=== PATIENT | female | born 1950 | race Caucasian/White ===

== ENCOUNTER 2023-01-01 10:40 | Outpatient (OUT) | payer MEDICARE, OTHER, SELFPAY ==
[2023-01-01 11:14] LABS: Basophils Percent Auto 0.4 % (0.2-2.0); Eosinophils Absolute Auto 0.1 10^3/uL (0.0-0.7); Eosinophils Percent Auto 1.5 % (0.9-7.0); Hematocrit 41.1 % (36.0-48.0); Hemoglobin 13.9 g/dL (12.0-16.0); Immature Granulocytes Abs Auto 0.01 10^3/uL (0.00-0.03); Immature Granulocytes Pct Auto 0.1 % (0.0-0.5); Lymphocytes Absolute Auto 2.6 10^3/uL (1.2-3.8); Lymphocytes Percent Auto 35.7 % (20.5-60.0); Mean Corpuscular HGB Conc 33.8 g/dL (29.9-35.2); Mean Corpuscular Volume 94.7 fL (81.0-99.0); Mean Platelet Volume 9.7 fL (9.5-13.5); Monocytes Absolute Auto 0.3 10^3/uL (0.3-0.8); Monocytes Percent Auto 3.7 % (1.7-12.0); Neutrophils Absolute Auto 4.3 10^3/uL (1.4-6.5); Neutrophils Percent Auto 58.6 % (43.0-75.0); Platelet Count 178 10^3/uL (150-450); Red Blood Count 4.34 10^6/uL (4.20-5.40); Red Cell Distribution Width 12.2 % (11.0-15.0); White Blood Count 7.3 10^3/uL (4.0-11.0)
[2023-01-01 12:05] LABS: Estimated Average Glucose 157 mg/dL; Glycohemoglobin A1C 7.1 % (4.5-6.2)
[2023-01-01 12:39] LABS: Alanine Aminotransferase 43 U/L (14-59); Albumin Level 4.1 g/dL (3.4-5.0); Alkaline Phosphatase 107 U/L (46-116); Aspartate Amino Transferase 23 U/L (15-37); BUN Creatinine Ratio 17.2; Bilirubin Total 0.6 mg/dL (0.2-1.0); Calcium 9.5 mg/dL (8.5-10.1); Carbon Dioxide 28.7 mmol/L (21.0-32.0); Chloride 103 mmol/L (98-107); Cholesterol 174 mg/dL (<=200); Estimated GFR (African America >60 (>=60); Estimated GFR (Non-African Ame 55 (>=60); Globulin 4.2 g/dL; Glucose 181 mg/dL (74-106); HDL Cholesterol 44 mg/dL (40-60); Potassium 4.7 mmol/L (3.5-5.1); Sodium 141 mmol/L (136-145); Total Protein 8.3 g/dL (6.4-8.2); Triglycerides 146 mg/dL (<=150); VLDL CHOLESTEROL 29.2 mg/dL
[2023-01-01 12:40] LABS: LDL Cholesterol Calculated 100.8 mg/dL; Thyroid Stimulating Hormone 1.049 uIU/mL (0.358-3.740)
[2023-01-01 17:54] LABS: Microalbumin Urine Random <1.3 mg/dL (<=30.0)
== END 2023-01-01 10:41 | disposition home or self-care (01) ==
LOC: LAB 10:49
PROVIDERS: PCP Family Medicine; Visit Provider Family Medicine
DX: E03.9 Hypothyroidism, unspecified (principal); R74.8 Abnormal levels of other serum enzymes; E11.65 Type 2 diabetes mellitus with hyperglycemia
CPT/HCPCS: 36415; 80053; 80061; 82043; 83036; 84439; 84443; 85025

== ENCOUNTER 2023-01-17 05:23 | Emergency (ER) | payer MEDICARE, OTHER, SELFPAY ==
[2023-01-17] VITALS (17 sets, daily range): BP systolic 114–136; BP diastolic 55–78; PULSE 101–120; RESP 13–29; TEMP 38.2–39.1; O2SAT 94–97; BMI 29.5
--- NOTE | 2023-01-17 05:49 | PC.NURSE ---
Patient to ED with flu/covid symptoms including fever, cough, body aches, throbbing in ears with headache, pain with coughing. She took antipyretic prior to coming into ED, temp was still 102 in triage. She states this all just started this morning and that her sister is sick with the same thing right now but has not been diagnosed with anything.
--- NOTE | 2023-01-17 06:00 | XR_ITS ---
The [address] [address] Patient Name: EDWARD GEE MRN: [id number] date: 1950 Sex: F Assigned Patient Location: ER Current Patient Location: ER Accession/Order Number: [id number] Exam Date: 01/17/2023 06:50 Report Date: 01/17/2023 07:14 At the request of: HARRY MARKER Procedure: XR chest 2V EXAMINATION: XR chest 2V HISTORY: fever, cough COMPARISON: No relevant comparison available. FINDINGS: LUNGS: No significant pulmonary parenchymal abnormalities. VASCULATURE: No increased pulmonary vasculature. PLEURA: No pneumothorax, effusion, or pleural thickening. CARDIAC: No cardiomegaly or cardiac silhouette abnormality. MEDIASTINUM: No visible mass or adenopathy. BONES: No fracture or visible bone lesion. OTHER: Negative. XR/XR chest 2V IMPRESSION: 1. No acute cardiopulmonary process. Electronically authenticated by: JAZMINE DODSON Date: 01/17/2023 07:14
--- NOTE | 2023-01-17 06:00 | ED.GENADUL1 ---
Documented by User: Sosa Jones MD 01/17/23 06:08 HPI - General Adult General Chief complaint: Upper Respiratory Infection Stated complaint: FEVER, CHILLS Time Seen by Provider: 01/17/23 05:28 Source: patient Mode of arrival: walk-in Limitations: no limitations History of Present Illness HPI narrative: This 72-year-old female presents for evaluation of fevers, chills, body aches and cough. The patient states that she woke up this morning with a fever. She took 2 aspirin. She states that she has fibromyalgia and when she gets a fever at worse since her fibromyalgia. She also states that she has been incontinent of urine. She states that when she gets a fever she cannot hold her urine. This is not unusual for her. She denies any abdominal pain. She has no headache or neck pain. She states that she did not get more than one COVID 19 vaccination because it made her sick. Also states that her sister has the same thing and came down with it 2 days ago. She last saw her sister 2 days ago when she was sick. She is not having any nausea or vomiting. She has no neck pain or stiffness. She has no skin rash. She states that he has been septic several times in the past from an unknown source. Related Data Home Medications Medication Instructions Recorded Confirmed benazepril 20 mg tablet 20 mg PO DAILY 01/17/23 01/17/23 citalopram 40 mg tablet (Celexa) 40 mg PO DAILY 01/17/23 01/17/23 levothyroxine 50 mcg tablet 50 mcg PO DAILY 01/17/23 01/17/23 (Euthyrox) tizanidine 4 mg tablet 4 mg PO DAILY 01/17/23 01/17/23 trazodone 50 mg tablet 50 mg PO DAILY 01/17/23 01/17/23 Previous Rx's Medication Instructions Recorded nirmatrelvir 300 mg (150 mg See Rx Instructions PO .COMPLEX 01/17/23 x2)-ritonavir 100 mg tablet,dose #30 ea pack (Paxlovid) Allergies Allergy/AdvReac Type Severity Reaction Status Date / Time adhesive tape Allergy Unknown Verified 01/17/23 05:32 Sulfa (Sulfonamide Allergy Unknown Verified 01/17/23 05:32 Antibiotics) Review of Systems ROS Status of ROS 10 or more systems reviewed and unremarkable except as noted in history and below PFSH PFSH Social History Smoking status: Never smoker Exam Narrative Exam Narrative: Nurses note and vital signs reviewed; Patient is febrile with a temperature of 102.4 tachycardic with a pulse of 120, blood presure is normal at 126/78, she is not hypoxic a pulse ox of 97 percent on room air General: Nontoxic elderly female lying currently on the stretcher, no respiratory distress, she moves easily about the stretcher Skin: Warm, dry, no pallor noted. There is no rash noted. Head: Normocephalic, atraumatic Eye: Normal conjunctiva, no drainage, EOMI. PERRL Cardiovascular: Regular Rate and Rhythm Tachycardic with a pulse of 120 upon arrival Respiratory: Are clear with good air entry, there is no wheezing rhonchi or rales appreciated, there is no accessory muscle use, she is speaking in complete sentences, she does have a forced dry cough Back: non-tender, no CVA tenderness bilaterally to percussion. GI: Normal bowel sounds, no tenderness to palpation, no masses appreciated. No rebound, guarding, or rigidity noted. Musculoskeletal: The patient has no evidence of calf tenderness, no pitting edema, symmetrical pulses noted bilaterally Neurological: A&O x4, normal speech Psychiatric: Cooperative Constitutional Vital Signs, click to edit/add: Last Vital Signs Temp 100.8 F H 01/17/23 07:41 Pulse 105 H 01/17/23 07:40 Resp 20 01/17/23 07:40 BP 118/62 01/17/23 07:30 Pulse Ox 95 01/17/23 06:20 O2 Del Method Room Air 01/17/23 05:28 Course Vital Signs Vital signs: Vital Signs Temperature 102.4 F H 01/17/23 05:28 Pulse Rate 120 H 01/17/23 05:28 Respiratory Rate 18 01/17/23 05:28 Blood Pressure 126/78 01/17/23 05:28 Pulse Oximetry 97 01/17/23 05:28 Oxygen Delivery Method Room Air 01/17/23 05:28 Temperature 100.8 F H 01/17/23 07:41 Pulse Rate 105 H 01/17/23 07:40 Respiratory Rate 20 01/17/23 07:40 Blood Pressure 118/62 01/17/23 07:30 Pulse Oximetry 95 01/17/23 06:20 Oxygen Delivery Method Room Air 01/17/23 05:28 Medical Decision Making Lab Data Labs: Lab Results 01/17/23 01/17/23 Range/Units 05:48 06:20 WBC 6.0 (4.0-11.0) 10^3/uL RBC 4.22 (4.20-5.40) 10^6/uL Hgb 13.6 (12.0-16.0) g/dL Hct 39.6 (36.0-48.0) % MCV 93.8 (81.0-99.0) fL MCH 32.2 (26.7-34.0) pg MCHC 34.3 (29.9-35.2) g/dL RDW 12.2 (11.0-15.0) % Plt Count 143 L (150-450) 10^3/uL MPV 10.2 (9.5-13.5) fL Neut % (Auto) 66.6 (43.0-75.0) % Lymph % (Auto) 22.9 (20.5-60.0) % [place] % (Auto) 9.1 (1.7-12.0) % Eos % (Auto) 0.7 L (0.9-7.0) % Baso % (Auto) 0.5 (0.2-2.0) % Neut # (Auto) 4.0 (1.4-6.5) 10^3/uL Lymph # (Auto) 1.4 (1.2-3.8) 10^3/uL [place] # (Auto) 0.5 (0.3-0.8) 10^3/uL Eos # (Auto) 0.0 (0.0-0.7) 10^3/uL Baso # (Auto) 0.0 (0.0-0.1) 10^3/uL Abs Immat Gran (auto) 0.01 (0.00-0.03) 10^3/uL Imm/Tot Granulo (auto) 0.2 (0.0-0.5) % Sodium 134 L (136-145) mmol/L Potassium 4.0 (3.5-5.1) mmol/L Chloride 99 (98-107) mmol/L Carbon Dioxide 24.5 (21.0-32.0) mmol/L Anion Gap 14.5 BUN 12.0 (7.0-18.0) mg/dL Creatinine 0.99 (0.55-1.02) mg/dL Est GFR ( Amer) >60 (>=60) Est GFR (Non-Af Amer) 55 L (>=60) BUN/Creatinine Ratio 12.1 Glucose 185 H (74-106) mg/dL Lactate 1.7 (0.4-2.0) mmol/L Calcium 8.9 (8.5-10.1) mg/dL Total Bilirubin 0.7 (0.2-1.0) mg/dL AST 36 (15-37) U/L ALT 60 H (14-59) U/L Alkaline Phosphatase 101 (46-116) U/L Total Protein 8.6 H (6.4-8.2) g/dL Albumin 4.2 (3.4-5.0) g/dL Globulin 4.4 g/dL Albumin/Globulin Ratio 1.0 Adenovirus (PCR) Not detected (NOT DETECTE) C. pneumoniae DNA (PCR) Not detected (NOT DETECTE) Coronavirus Type OC43 Not detected (NOT DETECTE) Coronavirus Type HKU1 Not detected (NOT DETECTE) Coronavirus Type 229E Not detected (NOT DETECTE) Coronavirus Type NL63 Not detected (NOT DETECTE) Human Metapneumovir PCR Not detected (NOT DETECTE) M. pneumoniae (PCR) Not detected (NOT DETECTE) Parainfluenza PCR Not detected (NOT DETECTE) Parainfluenza 2 (PCR) Not detected (NOT DETECTE) Parainfluenza 3 (PCR) Not detected (NOT DETECTE) Parainfluenza 4 (PCR) Not detected (NOT DETECTE) RSV (RT-PCR) Not detected (NOT DETECTE) Entero/Rhino (PCR) Not detected (NOT DETECTE) SARS-CoV-2 (PCR) Detected A (NOT DETECTE) Bordetella pertussis (PCR) Not detected (NOT DETECTE) B parapertussis DNA PCR Not detected (NOT DETECTE) Influenza Type A (PCR) Not detected (NOT DETECTE) Influenza Type B (PCR) Not detected (NOT DETECTE) ECG Data Attestation: I personally reviewed and interpreted this ECG as follows: (Sinus tachycardia at 114 beats for minute, low voltage, indeterminate axis, no acute ST segment elevation or T-wave inversion) Discharge Plan Discharge Chief Complaint: Upper Respiratory Infection Clinical Impression: COVID-19 Patient Disposition: Home, Self-Care Time of Disposition Decision: 07:47 Condition: Good Mode of Transportation: Private Vehicle Prescriptions / Home Meds: New Paxlovid 300 mg (150 mg x 2)-100 mg tablets,dose pack See Rx Instructions .ROUTE .COMPLEX Qty: 30 0RF Rx Instructions: take TWO 150 mg tablets of nirmatrelvir with ONE 100 mg tablet of ritonavir twice daily for 5 days No Action trazodone 50 mg tablet 50 mg PO DAILY benazepril 20 mg tablet 20 mg PO DAILY citalopram [Celexa] 40 mg tablet 40 mg PO DAILY tizanidine 4 mg tablet 4 mg PO DAILY levothyroxine [Euthyrox] 50 mcg tablet 50 mcg PO DAILY Instructions: Droplet Precautions (ED), COVID-19 (Coronavirus Disease 2019) (ED), COVID-19: Slow the Coronavirus Spread (ED), Face Coverings (Masks) and COVID-19 (ED), How to Recover from COVID-19 at Home (ED), Social Distancing Guidelines for COVID-19 (ED) Stand Alone Forms: Portal Instructions Referrals: Flor Mosqueda MD [Primary Care Provider] - 1 week Documented by User: Bassam Kumar MD 01/17/23 07:53 HPI - General Adult General Chief complaint: Upper Respiratory Infection Stated complaint: FEVER, CHILLS Time Seen by Provider: 01/17/23 05:28 Related Data Home Medications Medication Instructions Recorded Confirmed benazepril 20 mg tablet 20 mg PO DAILY 01/17/23 01/17/23 citalopram 40 mg tablet (Celexa) 40 mg PO DAILY 01/17/23 01/17/23 levothyroxine 50 mcg tablet 50 mcg PO DAILY 01/17/23 01/17/23 (Euthyrox) tizanidine 4 mg tablet 4 mg PO DAILY 01/17/23 01/17/23 trazodone 50 mg tablet 50 mg PO DAILY 01/17/23 01/17/23 Previous Rx's Medication Instructions Recorded nirmatrelvir 300 mg (150 mg See Rx Instructions PO .COMPLEX 01/17/23 x2)-ritonavir 100 mg tablet,dose #30 ea pack (Paxlovid) Allergies Allergy/AdvReac Type Severity Reaction Status Date / Time adhesive tape Allergy Unknown Verified 01/17/23 05:32 Sulfa (Sulfonamide Allergy Unknown Verified 01/17/23 05:32 Antibiotics) PFSH PFS Social History Smoking status: Never smoker Exam Constitutional Vital Signs, click to edit/add: Last Vital Signs Temp 100.8 F H 01/17/23 07:41 Pulse 105 H 01/17/23 07:40 Resp 20 01/17/23 07:40 BP 118/62 01/17/23 07:30 Pulse Ox 95 01/17/23 06:20 O2 Del Method Room Air 01/17/23 05:28 Course Vital Signs Vital signs: Vital Signs Temperature 102.4 F H 01/17/23 05:28 Pulse Rate 120 H 01/17/23 05:28 Respiratory Rate 18 01/17/23 05:28 Blood Pressure 126/78 01/17/23 05:28 Pulse Oximetry 97 01/17/23 05:28 Oxygen Delivery Method Room Air 01/17/23 05:28 Temperature 100.8 F H 01/17/23 07:41 Pulse Rate 105 H 01/17/23 07:40 Respiratory Rate 20 01/17/23 07:40 Blood Pressure 118/62 01/17/23 07:30 Pulse Oximetry 95 01/17/23 06:20 Oxygen Delivery Method Room Air 01/17/23 05:28 Medical Decision Making MDM Narrative Medical decision making narrative: JK 7:50am The patient was initially seen by Dr. Jones and signed out to me after discussing the case with her thoroughly. Chest x-ray shows no infiltrate and testing shows presence of Covid. She is provided a prescription for Paxlovid and is able to be discharged home. Treatment diagnosis and follow-up were discussed with the patient and her family. Differential Diagnosis Differential Diagnosis: viral illness, Covid, pneumonia Lab Data Lab results reviewed: Yes I reviewed the patient's lab results Labs: Lab Results 01/17/23 01/17/23 Range/Units 05:48 06:20 WBC 6.0 (4.0-11.0) 10^3/uL RBC 4.22 (4.20-5.40) 10^6/uL Hgb 13.6 (12.0-16.0) g/dL Hct 39.6 (36.0-48.0) % MCV 93.8 (81.0-99.0) fL MCH 32.2 (26.7-34.0) pg MCHC 34.3 (29.9-35.2) g/dL RDW 12.2 (11.0-15.0) % Plt Count 143 L (150-450) 10^3/uL MPV 10.2 (9.5-13.5) fL Neut % (Auto) 66.6 (43.0-75.0) % Lymph % (Auto) 22.9 (20.5-60.0) % [place] % (Auto) 9.1 (1.7-12.0) % Eos % (Auto) 0.7 L (0.9-7.0) % Baso % (Auto) 0.5 (0.2-2.0) % Neut # (Auto) 4.0 (1.4-6.5) 10^3/uL Lymph # (Auto) 1.4 (1.2-3.8) 10^3/uL [place] # (Auto) 0.5 (0.3-0.8) 10^3/uL Eos # (Auto) 0.0 (0.0-0.7) 10^3/uL Baso # (Auto) 0.0 (0.0-0.1) 10^3/uL Abs Immat Gran (auto) 0.01 (0.00-0.03) 10^3/uL Imm/Tot Granulo (auto) 0.2 (0.0-0.5) % Sodium 134 L (136-145) mmol/L Potassium 4.0 (3.5-5.1) mmol/L Chloride 99 (98-107) mmol/L Carbon Dioxide 24.5 (21.0-32.0) mmol/L Anion Gap 14.5 BUN 12.0 (7.0-18.0) mg/dL Creatinine 0.99 (0.55-1.02) mg/dL Est GFR ( Amer) >60 (>=60) Est GFR (Non-Af Amer) 55 L (>=60) BUN/Creatinine Ratio 12.1 Glucose 185 H (74-106) mg/dL Lactate 1.7 (0.4-2.0) mmol/L Calcium 8.9 (8.5-10.1) mg/dL Total Bilirubin 0.7 (0.2-1.0) mg/dL AST 36 (15-37) U/L ALT 60 H (14-59) U/L Alkaline Phosphatase 101 (46-116) U/L Total Protein 8.6 H (6.4-8.2) g/dL Albumin 4.2 (3.4-5.0) g/dL Globulin 4.4 g/dL Albumin/Globulin Ratio 1.0 Adenovirus (PCR) Not detected (NOT DETECTE) C. pneumoniae DNA (PCR) Not detected (NOT DETECTE) Coronavirus Type OC43 Not detected (NOT DETECTE) Coronavirus Type HKU1 Not detected (NOT DETECTE) Coronavirus Type 229E Not detected (NOT DETECTE) Coronavirus Type NL63 Not detected (NOT DETECTE) Human Metapneumovir PCR Not detected (NOT DETECTE) M. pneumoniae (PCR) Not detected (NOT DETECTE) Parainfluenza PCR Not detected (NOT DETECTE) Parainfluenza 2 (PCR) Not detected (NOT DETECTE) Parainfluenza 3 (PCR) Not detected (NOT DETECTE) Parainfluenza 4 (PCR) Not detected (NOT DETECTE) RSV (RT-PCR) Not detected (NOT DETECTE) Entero/Rhino (PCR) Not detected (NOT DETECTE) SARS-CoV-2 (PCR) Detected A (NOT DETECTE) Bordetella pertussis (PCR) Not detected (NOT DETECTE) B parapertussis DNA PCR Not detected (NOT DETECTE) Influenza Type A (PCR) Not detected (NOT DETECTE) Influenza Type B (PCR) Not detected (NOT DETECTE) Imaging Data Chest x-ray: Radiologist's impression: Procedure: XR chest 2V EXAMINATION: XR chest 2V HISTORY: fever, cough COMPARISON: No relevant comparison available. FINDINGS: LUNGS: No significant pulmonary parenchymal abnormalities. VASCULATURE: No increased pulmonary vasculature. PLEURA: No pneumothorax, effusion, or pleural thickening. CARDIAC: No cardiomegaly or cardiac silhouette abnormality. MEDIASTINUM: No visible mass or adenopathy. BONES: No fracture or visible bone lesion. OTHER: Negative. IMPRESSION: 1. No acute cardiopulmonary process. Electronically authenticated by: JAZMINE DODSON Date: 01/17/2023 07:14 Discharge Plan Discharge Chief Complaint: Upper Respiratory Infection Clinical Impression: COVID-19 Patient Disposition: Home, Self-Care Time of Disposition Decision: 07:47 Condition: Good Mode of Transportation: Private Vehicle Prescriptions / Home Meds: New Paxlovid 300 mg (150 mg x 2)-100 mg tablets,dose pack See Rx Instructions .ROUTE .COMPLEX Qty: 30 0RF Rx Instructions: take TWO 150 mg tablets of nirmatrelvir with ONE 100 mg tablet of ritonavir twice daily for 5 days No Action trazodone 50 mg tablet 50 mg PO DAILY benazepril 20 mg tablet 20 mg PO DAILY citalopram [Celexa] 40 mg tablet 40 mg PO DAILY tizanidine 4 mg tablet 4 mg PO DAILY levothyroxine [Euthyrox] 50 mcg tablet 50 mcg PO DAILY Instructions: Droplet Precautions (ED), COVID-19 (Coronavirus Disease 2019) (ED), COVID-19: Slow the Coronavirus Spread (ED), Face Coverings (Masks) and COVID-19 (ED), How to Recover from COVID-19 at Home (ED), Social Distancing Guidelines for COVID-19 (ED) Stand Alone Forms: Portal Instructions Referrals: Flor Mosqueda MD [Primary Care Provider] - 1 week
[2023-01-17 06:07] LABS: Basophils Percent Auto 0.5 % (0.2-2.0); Eosinophils Percent Auto 0.7 % (0.9-7.0); Hematocrit 39.6 % (36.0-48.0); Hemoglobin 13.6 g/dL (12.0-16.0); Immature Granulocytes Abs Auto 0.01 10^3/uL (0.00-0.03); Immature Granulocytes Pct Auto 0.2 % (0.0-0.5); Lymphocytes Absolute Auto 1.4 10^3/uL (1.2-3.8); Lymphocytes Percent Auto 22.9 % (20.5-60.0); Mean Corpuscular HGB Conc 34.3 g/dL (29.9-35.2); Mean Corpuscular Hemoglobin 32.2 pg (26.7-34.0); Mean Corpuscular Volume 93.8 fL (81.0-99.0); Mean Platelet Volume 10.2 fL (9.5-13.5); Monocytes Absolute Auto 0.5 10^3/uL (0.3-0.8); Monocytes Percent Auto 9.1 % (1.7-12.0); Neutrophils Percent Auto 66.6 % (43.0-75.0); Platelet Count 143 10^3/uL (150-450); Red Blood Count 4.22 10^6/uL (4.20-5.40); Red Cell Distribution Width 12.2 % (11.0-15.0)
[2023-01-17 06:20] LABS: Alanine Aminotransferase 60 U/L (14-59); Albumin Level 4.2 g/dL (3.4-5.0); Alkaline Phosphatase 101 U/L (46-116); Anion Gap 14.5; Aspartate Amino Transferase 36 U/L (15-37); BUN Creatinine Ratio 12.1; Bilirubin Total 0.7 mg/dL (0.2-1.0); Calcium 8.9 mg/dL (8.5-10.1); Carbon Dioxide 24.5 mmol/L (21.0-32.0); Chloride 99 mmol/L (98-107); Estimated GFR (African America >60 (>=60); Estimated GFR (Non-African Ame 55 (>=60); Globulin 4.4 g/dL; Glucose 185 mg/dL (74-106); Sodium 134 mmol/L (136-145); Total Protein 8.6 g/dL (6.4-8.2)
[2023-01-17] MEDS: 0.9 % SODIUM CHLORIDE 1,000 ML 1000 ML IV (06:21)
[2023-01-17] MEDS: ACETAMINOPHEN 325 MG TABLET 650 MG PO (06:21)
[2023-01-17 06:22] LABS: Lactate/Lactic Acid 1.7 mmol/L (0.4-2.0)
[2023-01-17 06:30] LABS: Adenovirus NOT DETECTED (NOT DETECTE); Bordetella parapertussis NOT DETECTED (NOT DETECTE); Coronavirus 229E NOT DETECTED (NOT DETECTE); Coronavirus HKU1 NOT DETECTED (NOT DETECTE); Coronavirus NL63 NOT DETECTED (NOT DETECTE); Coronavirus OC43 NOT DETECTED (NOT DETECTE); Human Metapneumovirus NOT DETECTED (NOT DETECTE); Human Rhinovirus/Enterovirus NOT DETECTED (NOT DETECTE); Influenza A NOT DETECTED (NOT DETECTE); Influenza B NOT DETECTED (NOT DETECTE); Mycoplasma pneumoniae NOT DETECTED (NOT DETECTE); Parainfluenza Virus 1 NOT DETECTED (NOT DETECTE); Parainfluenza Virus 2 NOT DETECTED (NOT DETECTE); Parainfluenza Virus 3 NOT DETECTED (NOT DETECTE); Parainfluenza Virus 4 NOT DETECTED (NOT DETECTE); Respiratory Syncytial Virus NOT DETECTED (NOT DETECTE)
[2023-01-17 07:19] LABS: SARS-CoV-2 DETECTED (NOT DETECTE)
[2023-01-17 08:13] LABS: Bilirubin Urine NEGATIVE (NEGATIVE); Blood Urine NEGATIVE (NEGATIVE); Clarity Urine CLEAR (CLEAR); Color Urine LT. YELLOW (YELLOW); Glucose Urine UA NEGATIVE (NEGATIVE); Ketones Urine NEGATIVE (NEGATIVE); Leukocyte Esterase Urine TRACE (NEGATIVE); Nitrite Urine NEGATIVE (NEGATIVE); Protein Urine NEGATIVE (NEG/TRACE); Specific Gravity Urine 1.015 (1.005-1.025); Urobilinogen Urine 0.2 EU/dL (0.2-1.0); pH Urine 5.5 (5.0-9.0)
[2023-01-17 08:35] LABS: Bacteria Urine NONE SEEN #/HPF (NONE SEEN); Mucus Urine NONE SEEN (NONE SEEN); RBC Urine NONE SEEN #/HPF (0-2); Squamous Epithelial Cell Urine RARE #/LPF (NONE/RARE); WBC Urine 0-2 #/HPF (NONE SEEN)
--- NOTE | 2023-01-17 17:40 | ECG_ITS ---
The [facility] Test Date: 2023-01-17 Pat Name: EDWARD GEE Department: Room: - Gender: Female [employer]: : 1950 Requested By: CARMEN CONLEY Order Number: [id number] Reading MD: CHRISTIAN WHITE Measurements Intervals [place] Rate: 114 P: 49 WV: 140 QRS: 259 QRSD: 82 T: -30 QT: 334 QTc: 402 Interpretive Statements 1120 Sinus tachycardia 2420 RSR (QR) in lead V1/V2, consistent with right ventricular conduction delay 7300 Indeterminate axis 7500 Abnormal QRS-T angle 8102 Low QRS voltage in chest leads 9140 abnormal rhythm ECG No previous ECG available for comparison Electronically Signed On 01-18-2023 6:45:20 EDT by CHRISTIAN WHITE
== END 2023-01-17 08:04 | disposition home or self-care (01) ==
PROVIDERS: Emergency Medicine; Emergency Provider Emergency Medicine; PCP Family Medicine
DX: U07.1 COVID-19 (principal); R50.9 Fever, unspecified; Z79.899 Other long term (current) drug therapy; Z79.890 Hormone replacement therapy
CPT/HCPCS: 0202U; 36415; 71046; 80053; 81001; 83605; 85025; 87040; 93005; 99284

== ENCOUNTER 2023-02-01 11:40 | Outpatient (OUT) | payer MEDICARE, OTHER, SELFPAY ==
--- NOTE | 2023-02-01 11:51 | XR_ITS ---
The [address] [address] Patient Name: EDWARD GEE MRN: [id number] date: 1950 Sex: F Assigned Patient Location: [facility] Current Patient Location: [facility] Accession/Order Number: [id number] Exam Date: 02/01/2023 11:53 Report Date: 02/01/2023 13:16 At the request of: CARMEN CONLEY Procedure: XR chest 2V EXAM: XR chest 2V HISTORY: Shortness Of Breath R06.02 COMPARISON: None. TECHNIQUE: PA and lateral views of the chest. FINDINGS: The cardiomediastinal silhouette is normal. No focal consolidation is identified. There is no pneumothorax. No pleural effusion is noted. The osseous structures are intact. XR/XR chest 2V IMPRESSION: No acute cardiopulmonary process. Electronically authenticated by: GINA TRUONG Date: 02/01/2023 13:16
== END 2023-02-01 11:41 | disposition home or self-care (01) ==
PROVIDERS: PCP Family Medicine; Visit Provider Family Medicine
DX: R06.02 Shortness of breath (principal); U09.9 Post COVID-19 condition, unspecified
CPT/HCPCS: 71046

== ENCOUNTER 2023-05-25 10:40 | Emergency (ER) | payer MEDICARE, OTHER, SELFPAY ==
[2023-05-25] VITALS (23 sets, daily range): BP systolic 116–169; BP diastolic 55–93; PULSE 76–128; RESP 14–33; TEMP 36.5; O2SAT 93–99; BMI 31.2
--- OUTSIDE RECORDS SUMMARY | 2023-05-25 10:51 | XMS_ITS | CCD ---
Author Name Unknown Address [address] [facility] [address] [place] [address] Organization [facility] Care Team Providers Care Farm Loan Representative Name Role Phone Carmen Conley MD Primary Care Provider Carmen Conley Attending Unavailable Yael, Carmen Riggins Primary Care Unavailable Yael, Carmen Riggins Admitting Unavailable Carmen Conley Unavailable YAEL, DR CARMEN Riggins Attending Unavailable CONLEY, DR CARMEN Riggins Admitting Unavailable CONLEY, DR CARMEN Riggins Primary Care Unavailable YAEL, DR CARMEN Riggins Consulting Unavailable CONLEY, DR CARMEN Riggins Attending Unavailable CONLEY, DR CARMEN Riggins Admitting Unavailable CONLEY, DR CARMEN Riggins Primary Care Unavailable CONLEY, DR CARMEN Riggins Consulting Unavailable CONLEY, DR CARMEN Riggins Attending Unavailable CONLEY, DR CARMEN Riggins Admitting Unavailable CONLEY, DR CARMEN Riggins Primary Care Unavailable CANBY, DR HAYLEY Martinez Consulting Unavailable CONLEY, DR CARMEN Riggins Consulting Unavailable YAEL, DR CARMEN Riggins Primary Care Unavailable TERESITA ., MICHAEL Attending Unavailable PAM ., MR COLUNGAEW Consulting Unavailable TERESITA ., MICHAEL Admitting Unavailable VERA ARANA Consulting Unavailable YAEL, DR CARMEN Riggins Primary Care Unavailable PERFECTO ., DR LEANDER Riggins Consulting Unavailable PERFECTO ., DR LEANDER Riggins Attending Unavailable PERFECTO ., DR LEANDER Riggins Admitting Unavailable IVORY, DR JAZMINE Tomlinson Consulting Unavailable JOSE J ., SANTO DEWEY Consulting Unavailabl e Melina, Caro Consulting Unavailable HOLLIS, MARÍA Consulting Unavailable CINDY, DR GONZALES Consulting Unavailable CINDY, DR GONZALES Attending Unavailable CINDY, DR GONZALES Admitting Unavailable CONLEY, DR CARMEN Riggins Primary Care Unavailable CONLEY, DR CARMEN Riggins Attending Unavailable CONLEY, DR CARMEN Riggins Admitting Unavailable CONLEY, DR CARMEN Riggins Primary Care Unavailable CONLEY, DR CARMEN Riggins Consulting Unavailable YAEL, DR CARMEN Riggins Attending Unavailable YAEL, DR CARMEN Riggins Admitting Unavailable CONLEY, DR CARMEN Riggins Primary Care Unavailable CONLEY, DR CARMEN Riggins Consulting Unavailable Melina, Caro Consulting Unavailable DR CARMEN CONLEY Primary Care Unavailable [facility], DR FERNÁNDEZ Consulting Unavailable [facility], DR FERNÁNDEZ Attending Unavailable [facility], DOCTOR Admitting Unavailable Carmen Conley MD Primary Care Provider ZULEIMA SUMNER Attending Unavailable ZULEIMA SUMNER Attending Unavailable Allergies Allergy Classification Reported Allergen(s) Allergy Type Date of Onset Reaction(s) Facility (2 sources) Latex Drug Allergy 09-07-19 17 Unknown [facility] (2 sources) Sulfonamides (Antibiotic) Drug Allergy 09-06-19 17 Anaphylaxis [facility] (20 sources) Latex Propensity to adverse reactions Unknown [facility] (20 sources) Sulfonamides (Antibiotic) Propensity to adverse reactions Unknown [facility] (1 source) Latex Drug allergy (disorder) 10-15-19 16 [facility] (1 source) Sulfonamides (Antibiotic) Drug allergy (disorder) 08-19-19 13 [facility] (13 sources) sulfADIAZINE Drug Allergy 09-12-19 18 Comment:SULFA [facility] Other Medications Current Medications Medication Drug Class(es) Dates Sig (Normalized) Sig (Original) [id number] actuat albuterol 0.09 mg/actuat metered dose inhaler (19 sources) beta2-Adrenergic Agonist Start: 01-24-2023 take 2 puff(s) by inhalation every four hours as needed Albuterol Sulfate HFA 108 (90 Base) MCG/ACT 2 puff Inhalation every 4 hrs prn Jan, Active Start: 01-24-2023 take 2 puff(s) by in halation every four hours as needed Albuterol Sulfate HFA 108 (90 Base) MCG/ACT 2 puff Inhalation every 4 hrs prn Jan, Active Albuterol Sulfat e (2.5 MG/3ML) 0.083% 3 mL as needed Inhalation every 6 hrs for 30 days Active Albuterol Sulfat e (2.5 MG/3ML) 0.083% 3 mL as needed Inhalation every 6 hrs for 30 days Active atorvastatin 10 mg oral tablet (20 sources) HMG-CoA Reductase Inhibitor take 1 tablet by mouth once daily Atorvastatin Calcium 10 MG TAKE 1 TABLET BY MOUTH DAILY for 90 days Active cefuroxime 250 mg oral tablet (18 sources) Cephalosporin Antibacterial take 1 tablet by mouth every twelve hours ciprofloxacin 250 mg oral tablet (18 sources) Quinolone Antimicrobial Start: 05-03-19 take 1 tablet by mouth every twelve hours 3 ml insulin lispro 100 unt/ml pen injector (18 sources) Insulin Analog levothyroxine sodium 0.05 mg oral tablet (20 sources) l-Thyroxine take 1 tablet by mouth once daily Levothyroxine Sodium 50 MCG TAKE 1 TABLET BY MOUTH DAILY Active take 1 tablet by mouth once carl y Levothyroxine Sodium 50 MCG TAKE 1 TABLET BY MOUTH DAILY Active Comment on above: levothyroxine 50 mcg tablet TAKE 1 TABLET BY MOUTH DAILY LORazepam 0.5 mg oral tablet (20 sources) Benzodiazepine Start: take 1 tablet by mouth every twelve hours LORazepam 0.5 MG 1 tablet at bedtime as needed Orally Twice a day for 30 days August, Active Start: 05-10-2022 take 1 tablet by karla th every twelve hours Start: 05-10-2022 take 1 tablet by karla th once daily as needed LORazepam 0.5 MG 1 tab Orally once a day prn for 30 days May, Active minocycline 50 mg oral capsule (6 sources) Tetracycline-class Drug Minocycl ine 50 MG 1 capsule once a day for a month Active Ozempic (0.25 or 0.5 MG/DOSE) 2 MG/1.5ML (7 sources) Start: 06-13-19 Ozempic (0.25 or 0.5 MG/DOSE) 2 MG/1.5ML 0.5mg Subcutaneous weekly Jun, Active predniSONE 20 mg oral tablet (10 sources) take 1 tablet by mouth every twenty-four hours predniSONE 20 MG 1 tablet Orally Once a day for 5 days Active (18 sources) Active semaglutide 7 mg oral tablet (16 sources) Start: 03-21-2023 Rybelsus 7 MG 1 tablet at least 30 minutes before first food, beverage or other oral medicine of the day Orally Once a day for 30 day(s) Mar, Active Start: 06-12-2022 Ozempic (0.25 or 0.5 MG/DOSE) 2 MG/1.5ML 0.5mg Subcutaneous weekly for 90 days Jun, Active Rybelsus 14 MG 1 tablet at least 30 minutes before first food, beverage or other oral medicine of the day Orally Once a day for 90 days Active SITagliptin 100 mg oral tablet (7 sources) Dipeptidyl Peptidase 4 Inhibitor Start: 05-10-2022 take 1 tablet by mouth every twenty-four hours Januvia 100 MG 1 tablet Orally Once a day for 30 day(s) May, Active Comment on above: Januvia 100 mg table t One tab p.o. daily tiZANidine 4 mg oral tablet (20 sources) Central alpha-2 Adrenergic Agonist take 1 tablet by mouth at bedtime as needed tiZANidine HCl 4 MG TAKE 1 TABLET BY MOUTH AT BEDTIME NEEDED for 90 days Active Vitamin D3 25 MCG (1000 UT) (18 sources) take 1 tablet by mouth once daily take 1 tablet by mouth once carl y Vitamin D3 25 MCG (1000 UT) 1 tablet Orally Once a day Active Zinc (1 source) take 1 tablet by mouth once carl y zinc gluconate 50 mg oral ta blet (17 sources) take 1 tablet by mouth every twe nty-four hours Completed/Discontinued Medications Medication Drug Class(es) Dates Sig (Normalized) Sig (Original) benazepril hydrochloride 20 mg oral tablet (20 sources) Angiotensin Converting Enzyme Inhibitor Start: 01-01-2017 take 1 tablet by mouth once daily benazepril (LOTENSIN) 20 mg tablet benazepril 20 mg tablet TAKE 1 TABLET BY MOUTH EVERY DAY 0 01/01/2017 Active Comment on above: benazepril 20 mg tab let TAKE 1 TABLET BY MOUTH EVERY DAY citalopram 40 mg oral tablet (20 sources) Serotonin Reuptake Inhibitor Start: 01-01-2017 take 1 tablet by mouth once daily citalopram (CELEXA) 40 mg tablet citalopram 40 mg tablet TAKE 1 TABLET BY MOUTH DAILY 0 01/01/2017 Active Comment on above: citalopram 40 mg tab let TAKE 1 TABLET BY MOUTH DAILY 24 hr metFORMIN hydrochloride 500 mg extended release oral tablet (2 sources) Biguanide take 2 tablets by mouth twice daily metFORMIN ER (GLUCOPHAGE XR) 500 mg 24 hr tablet metformin ER 500 mg tablet,extended release 24 hr TAKE 2 TABLETS BY MOUTH TWICE A DAY 0 Active Comment on above: metformin ER 500 mg tablet,extended release 24 hr TAKE 2 TABLETS BY MOUTH TWICE A DAY traMADol hydrochloride 50 mg oral tablet (2 sources) Opioid Agonist Start: 08-04-2020 traMADol (ULTRAM) 50 mg tablet traZODone hydrochloride 50 mg oral tablet (20 sources) Serotonin Reuptake Inhibitor Start: 01-01-2017 take 1 tablet by mouth once daily traZODone (DESYREL) 50 mg tablet trazodone 50 mg tablet TAKE 1 TABLET BY MOUTH EVERY DAY 0 01/01/2017 Active Comment on above: trazodone 50 mg tabl et TAKE 1 TABLET BY MOUTH EVERY DAY Problems Active Problems Problem Classification Problem Date Documented Date Episodic/Chronic Abdominal pain (6 sources) Right lower quadrant pain; Translations: [RIGHT LOWER QUADRANT PAIN] Onset: 08-08-2022 Episodic Anxiety disorders (20 sources) Mixed anxiety and depressive disorder; Translations: [Other specified anxiety disorders] Onset: 11-28-2021 Chronic Coagulation and hemorrhagic disorders (20 sources) Thrombocytopenic disorder; Translations: [Thrombocytopenia, unspecified] Chronic Diabetes mellitus with complications (20 sources) Hyperglycemia due to type 2 diabetes mellitus; Translations: [Type 2 diabetes mellitus with hyperglycemia] Onset: 08-23-2021 Chronic Diabetes mellitus without complication (1 source) Type 2 diabetes mellitus without complications; Translations: [TYPE 2 DM WITHOUT COMPLICATIONS] Onset: 04-17-2022 Chronic Disorders of lipid metabolism (20 sources) Mixed hyperlipidemia; Translations: [Mixed hyperlipidemia] Onset: 08-23-2021 Chronic Esophageal disorders (1 source) Gastro-esophageal reflux disease without esophagitis; Translations: [GERD WITHOUT ESOPHAGITIS] Onset: 04-17-2022 Chronic Essential hypertension (20 sources) Hypertensive disorder; Translations: [Essential (primary) hypertension] Onset: 04-17-2022 Chronic Genitourinary symptoms and ill-defined conditions (7 sources) Dysuria; Translations: [Personal history of urinary (tract) infections] Onset: 04-17-2022 Episodic Hepatitis (1 source) Cirrhosis - non-alcoholic; Translations: [Nonalcoholic steatohepatitis (RITTER)] 09-21-2020 Chronic Immunity disorders (20 sources) Immunodeficiency disorder; Translations: [Immunodeficiency, unspecified] Onset: 07-02-2022 Chronic Osteoarthritis (20 sources) Osteoarthritis of knee; Translations: [Osteoarthritis of knee, unspecified] Chronic Other aftercare (20 sources) Long-term current use of insulin; Translations: [CHCF (current) use of insulin] Episodic Other connective tissue disease (20 sources) Fibromyalgia; Translations: [Fibromyalgia] Episodic Other connective tissue disease (3 sources) Fibromyalgia; Translations: [FIBROMYALGIA] Onset: 04-17-2022 Episodic Other infections; including parasitic (2 sources) Personal history of other infectious and parasitic diseases Episodic Other liver diseases (20 sources) Steatosis of liver; Translations: [Fatty (change of) liver, not elsewhere classified] Chronic Other liver diseases (20 sources) Elevated liver enzymes level; Translations: [Abnormal levels of other serum enzymes] Episodic Other liver diseases (7 sources) Abnormal levels of other serum enzymes; Translations: [ABNORMAL LEVELS OTHER SERUM ENZYMES] Onset: 04-23-2022 Episodic Other lower respiratory disease (2 sources) Dyspnea, unspecified; Translations: [DYSPNEA UNSPECIFIED] Onset: 11-28-2021 Episodic Other nutritional; endocrine; and metabolic disorders (20 sources) Body mass index 30+ - obesity; Translations: [Body mass index (BMI) 30.0-30.9, adult] Chronic Other nutritional; endocrine; and metabolic disorders (20 sources) Metabolic syndrome X; Translations: [Metabolic syndrome] Chronic Residual codes; unclassified (20 sources) Insomnia co-occurrent and due to medical condition; Translations: [Insomnia due to medical condition] Chronic Residual codes; unclassified (2 sources) 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 Septicemia (except in labor) (2 sources) Sepsis due to unspecified staphylococcus; Translations: [Severe sepsis without septic shock] Onset: 07-12-2022 Episodic Thyroid disorders (20 sources) Hypothyroidism; Translations: [Hypothyroidism, unspecified] Onset: 08-17-2021 Chronic Unclassified (4 sources) CONTACT W/AND (SUSP) EXPOS COVID-19; Translations: [CONTACT W/AND (SUSP) EXPOS COVID-19] Onset: 11-13-2021 Unclassified (1 source) ACIDOSIS UNSPECIFIED; Translations: [ACIDOSIS UNSPECIFIED] Onset: 04-17-2022 Past or Other Problems Problem Classification Problem Date Documented Da te Episodic/Chronic Bacterial infection; unspecified site (2 sources) Bacteremia; Translations: [BACTEREMIA] Onset: 04-30-2022 Episodic Cardiac dysrhythmias (1 source) Tachycardia, unspecified; Translations: [TACHYCARDIA UNSPECIFIED] Onset: 04-17-2022 Episodic E Codes: Adverse effects of medical drugs (1 source) Adverse effect of insulin and oral hypoglycemic [antidiabetic] drugs, initial encounter; Translations: [ADVERS EFF INSULIN ORAL HG RX INIT] Onset: 04-17-2022 Episodic Fluid and electrolyte disorders (1 source) Dehydration; Translations: [DEHYDRATION] Onset: 04-17-2022 Episodic Intestinal infection (1 source) Viral intestinal infection, unspecified; Translations: [VIRAL INTESTINAL INFECTION UNSPEC] Onset: 04-17-2022 Episodic Malaise and fatigue (4 sources) Weakness; Translations: [WEAKNESS] Onset: 04-12-2022 Episodic Menopausal disorders (1 source) Hormone replacement therapy; Translations: [HORMONE REPLACEMENT THERAPY] Onset: 04-17-2022 Episodic Nausea and vomiting (4 sources) Nausea with vomiting, unspecified; Translations: [NAUSEA WITH VOMITING UNSPECIFIED] Onset: 11-26-2021 Episodic Other aftercare (1 source) Other chcf (current) drug therapy; Translations: [OTH GROUP HOME CURRENT DRUG THERAPY] Onset: 04-17-2022 Episodic Other aftercare (1 source) napper fixer (current) use of oral hypoglycemic drugs; Translations: [FILM RENTAL CLERK USE ORAL HYPOGLYCEMIC DX] Onset: 04-17-2022 Episodic Other connective tissue disease (2 sources) Myalgia, unspecified site; Translations: [MYALGIA UNSPECIFIED SITE] Onset: 04-30-2022 Episodic Other connective tissue disease (4 sources) Pain in right forearm; Translations: [PAIN IN RIGHT FOREARM] Onset: 01-05-2022 Episodic Other gastrointestinal disorders (1 source) Diarrhea, unspecified; Translations: [DIARRHEA UNSPECIFIED] Onset: 11-28-2021 Episodic Other non-traumatic joint disorders (1 source) Pain in right wrist; Translations: [PAIN IN RIGHT WRIST] Onset: 01-08-2022 Episodic Other screening for suspected conditions (not mental disorders or infectious disease) (1 source) Other specified abnormal findings of blood chemistry; Translations: [OTH SPEC ABNORMAL FINDINGS BLD CHEM] Onset: 04-17-2022 Episodic Residual codes; unclassified (1 source) Acquired absence of both cervix and uterus; Translations: [ACQUIRED ABSENCE BOTH CERVIX AND UTERUS] Onset: 04-17-2022 Episodic Residual codes; unclassified (1 source) Acquired absence of other specified parts of digestive tract; Translations: [ACQ ABSENCE OTH PART DIGESTV TRACT] Onset: 04-17-2022 Episodic Unclassified (1 source) CONTACT W/AND (SUSP) EXPOS COVID-19; Translations: [CONTACT W/AND (SUSP) EXPOS COVID-19] Onset: 11-08-2021 Urinary tract infections (3 sources) Acute cystitis without hematuria; Translations: [Urinary tract infection, site not specified] Onset: 04-17-2022 Episodic Viral infection (1 source) COVID-19 Results Test Name Value Interpretation Reference Range Facility CREATININEon 08-08-2022 Creatinine [Mass/Vol] 0.94 mg/dL Normal 0.55-1.02 [facility] Comment on above: Performed By: #### L IPA, HSTROPN, TSH, CMP #### [facility] [address] [address] [address] Juan Zamarripa EGFR-AF TUVALUAN >60 Normal >=60 [facility] Comment on above: Performed By: #### L IPA, HSTROPN, TSH, CMP #### [facility] [address] [address] [address] Juan Zamarripa EGFR-NON AF TUVALUAN 58 mL/min/1.73m2 Critically low >=60 [facility] Comment on above: Performed By: #### L IPA, HSTROPN, TSH, CMP #### [facility] [address] [address] [address] ABD/PELVIS WO CONon 08-08 CT ABD/PELVIS WO CON EXAMINATION: CT ABD/PELVIS WO CON, 08/08/2022 9:57 AM EDT HISTORY: Right lower quadrant pain COMPARISON: 04/12/2022; 11/15/2018 TECHNIQUE: CT scan of the abdomen and pelvis was performed without IV contrast. CT dose reduction technique was used, including Automated Exposure Control. ABDOMEN/PELVIS FINDINGS: Lower Chest: Unremarkable. Liver: The hepatic contour is somewhat nodular suggestive of cirrhosis. Biliary/Gallbladder: Prior cholecystectomy. Pancreas: Unremarkable. Spleen: The spleen is mildly enlarged measuring 14.6 cm. Adrenal Glands: Unremarkable. Kidneys: Stable fat density lesion in the right kidney measuring 5.3 mm, likely representing an angiomyolipoma. A hyperdense lesion in the left kidney, which was also seen on the previous exam is also stable. No renal calculus or hydronephrosis identified. Gastrointestinal/Perit oneum: No acute abnormality. The appendix is unremarkable. No free air or free fluid. Vascular: Mild scattered atherosclerotic calcifications are present. Lymph Nodes: No enlarged lymph nodes by CT size criteria. Pelvic Organs: Prior hysterectomy. Bladder: There is a small diverticulum arising from the left lateral wall the urinary bladder. Bones: No acute osseous abnormality. Mild to moderate multilevel degenerative changes are present in the visualized spine. Soft tissues: Unremarkable. IMPRESSION: 1. No acute abnormality of the abdomen and pelvis. 2. Cirrhotic morphology of liver with splenomegaly present. 3. Hyperdense lesion in the left kidney is stable in size from the remote prior studies, likely hemorrhagic cyst. 4. Tiny fat density lesion in the right kidney is stable, likely an angiomyolipoma. 5. Prior cholecystectomy and hysterectomy. Electronically authenticated by: CARO SIBLEY Date: 2022-08-08 13:42 Normal [facility] Urine Cultureon 07-24-2022 Bacteria identified Cx Nom (U) No Growth 2 Days PERFORMED BY: [place] [address] PATHOLOGIST CUSTOMER SUCCESS REPRESENTATIVE JAIMIE RIVERA M.D. Normal [facility] Comment on above: Performed By: #### C UU #### [address] PNEUMOCOCCAL IM (23 SEROTYPE )on 07-07-2022 Pneumo Ab Type 1* 2.8 ug/mL Normal >1.3 [facility] Comment on above: Performed By: #### L IPA, HSTROPN, TSH, CMP #### [facility] [address] [address] [address] Juan Zamarripa Pneumo Ab Type 12 (12F)* 0.2 ug/mL Critically low >1.3 [facility] Comment on above: Performed By: #### L IPA, HSTROPN, TSH, CMP #### [facility] [address] [address] [address] Juan Zamarripa Pneumo Ab Type 14* >18.7 Normal >1.3 [facility] Comment on above: Performed By: #### L IPA, HSTROPN, TSH, CMP #### [facility] [address] [address] [address] Juan Zamarripa Pneumo Ab Type 17 (17F)* >20.2 Normal >1.3 [facility] Comment on above: Performed By: #### L IPA, HSTROPN, TSH, CMP #### [facility] [address] [address] [address] Juan Zamarripa Pneumo Ab Type 19 (19F)* 21.7 ug/mL Normal >1.3 [facility] Comment on above: Performed By: #### L IPA, HSTROPN, TSH, CMP #### [facility] [address] [address] [address] Juan Zamarripa Pneumo Ab Type 2* 5.7 ug/mL Normal >1.3 [facility] Comment on above: Performed By: #### L IPA, HSTROPN, TSH, CMP #### [facility] [address] [address] [address] Juan Zamarripa Pneumo Ab Type 20* 4.0 ug/mL Normal >1.3 [facility] Comment on above: Performed By: #### L IPA, HSTROPN, TSH, CMP #### [facility] [address] [address] [address] Juan Zamarripa Pneumo Ab Type 22 (22F)* 1.5 ug/mL Normal >1.3 [facility] Comment on above: Performed By: #### L IPA, HSTROPN, TSH, CMP #### [facility] [address] [address] [address] Juan Zamarripa Pneumo Ab Type 23 (23F)* 3.4 ug/mL Normal >1.3 [facility] Comment on above: Performed By: #### L IPA, HSTROPN, TSH, CMP #### [facility] [address] [address] [address] Juan Zamarripa Pneumo Ab Type 26 (6B)* 3.0 ug/mL Normal >1.3 [facility] Comment on above: Performed By: #### L IPA, HSTROPN, TSH, CMP #### [facility] [address] [place] [address] Dr. Juan Zamarripa Pneumo Ab Type 3* 1.6 ug/mL Normal >1.3 [facility] Comment on above: Performed By: #### L IPA, HSTROPN, TSH, CMP #### [facility] [address] [address] [address] Juan Zamarripa Pneumo Ab Type 34 (10A)* 4.4 ug/mL Normal >1.3 [facility] Comment on above: Performed By: #### L IPA, HSTROPN, TSH, CMP #### [facility] [address] [place] [address] Dr. Juan Zamarripa Pneumo Ab Type 4* 1.6 ug/mL Normal >1.3 [facility] Comment on above: Performed By: #### L IPA, HSTROPN, TSH, CMP #### [facility] [address] [place] [address] Dr. Juan Zamarripa Pneumo Ab Type 43 (11A)* >7.6 Normal >1.3 [facility] Comment on above: Performed By: #### L IPA, HSTROPN, TSH, CMP #### [facility] [address] [place] [address] Dr. Juan Zamarripa Pneumo Ab Type 5* 2.0 ug/mL Normal >1.3 [facility] Comment on above: Performed By: #### L IPA, HSTROPN, TSH, CMP #### [facility] [address] [place] [address] Dr. Juan Zamarripa Pneumo Ab Type 51 (7F)* 0.9 ug/mL Critically low >1.3 [facility] Comment on above: Performed By: #### L IPA, HSTROPN, TSH, CMP #### [facility] [address] [place] [address] Dr. Juan Zamarripa Pneumo Ab Type 54 (15B)* >22.0 Normal >1.3 [facility] Comment on above: Performed By: #### L IPA, HSTROPN, TSH, CMP #### [facility] [address] [address] [address] Juan Zamarripa Pneumo Ab Type 56 (18C)* >8.1 Normal >1.3 [facility] Comment on above: Performed By: #### L IPA, HSTROPN, TSH, CMP #### [facility] [address] [place] [address] Dr. Juan Zamarripa Pneumo Ab Type 57 (19A)* 2.5 ug/mL Normal >1.3 [facility] Comment on above: Performed By: #### L IPA, HSTROPN, TSH, CMP #### [facility] [address] [place] [address] Dr. Juan Zamarripa Pneumo Ab Type 68 (9V)* >13.4 Normal >1.3 [facility] Comment on above: Performed By: #### L IPA, HSTROPN, TSH, CMP #### [facility] [address] [place] [address] Dr. Juan Zamarripa Pneumo Ab Type 70 (33F)* >10.1 Normal >1.3 [facility] Comment on above: Result Comment: *Thi s test was developed and its performance characteristics determined by [employer]. It has not been cleared or approved by the U.S. Food and Drug Administration. Performed By: #### L IPA, HSTROPN, TSH, CMP #### [facility] [address] [address] [address] Juan Zamarripa Pneumo Ab Type 8* 1.2 ug/mL Critically low >1.3 [facility] [facility] Comment on above: Performed By: #### L IPA, HSTROPN, TSH, CMP #### [facility] [address] [place] [address] Dr. Juan Zamarripa Pneumo Ab Type 9 (9N)* 1.7 ug/mL Normal >1.3 [facility] Comment on above: Performed By: #### L IPA, HSTROPN, TSH, CMP #### [facility] [address] [place] [address] Dr. Juan Zamarripa BORDETELLA PERTUSSIS AB IGGo n 07-05-2022 B pertussis IgG Ab 1.53 index Invalid Interpretation Code 0.00-0.94 [facility] Comment on above: Result Comment: Clie nt Requested Flag Negative <0.95 Equivocal 0.95 - 1.04 Positive >1.04 Performed By: #### A 1C #### [facility] [address] [place] [address] Dr. Juan Zamarripa TETANUS DIPTHERIA AB PROFILE on 07-05-2022 Diphtheria Antitoxoid Ab 0.29 IU/mL Normal <0.10 [facility] Comment on above: Result Comment: Inte rpretation: Non-Protective <0.10 Protective >=0.10 . For research use only. Performed By: #### C BC #### [facility] [address] [place] [address] Dr. Juan Zamarripa Tetanus Antitoxoid IgG Ab 0.94 IU/mL Normal <0.10 [facility] Comment on above: Result Comment: Inte rpretation: Non-Protective <0.10 Protective >=0.10 Results for this test are for research purposes only by the assay's security management specialist. The performance characteristics of this product have not been established. Results should not be used as a diagnostic procedure without confirmation of the diagnosis by another medically established diagnostic product or procedure. Performed By: #### C BC #### [facility] [address] [place] [address] Dr. Juan Zamarripa HAEMOPHILUS INFLUENZA B IGGo n 07-04-2022 Haemophilus influenzae B IgG 0.21 ug/mL Normal [facility] Comment on above: Result Comment: NOTE : An anti-Hib level of 0.15 ug/mL is generally accepted as the minimum level for protection. Optimal protection post-vaccination requires a level greater than 1.00 ug/mL. Performed By: #### L IPA, HSTROPN, TSH, CMP #### [facility] [address] [place] [address] Dr. Juan Zamarripa IMMUNOGLOBULINS IGA/IGM/IGG QUANTITATIVEon 07-03-2022 Immunoglobulin A, Qn, Serum 219 mg/dL Normal 64-422 [facility] Comment on above: Performed By: #### L IPA, HSTROPN, TSH, CMP #### [facility] [address] [address] [address] Juan Zamarripa Immunoglobulin G, Qn, Serum 1365 mg/dL Normal 586-1602 [facility] Comment on above: Performed By: #### L IPA, HSTROPN, TSH, CMP #### [facility] [address] [address] [address] Juan Zamarripa Immunoglobulin M, Qn, Serum 66 mg/dL Normal 26-217 [facility] Comment on above: Performed By: #### L IPA, HSTROPN, TSH, CMP #### [facility] [address] [place] [address] Dr. Juan Zamarripa LYMPHOCYTE ACTIVITY PROFILEo n 07-03-2022 %CD3+CD25+Lymphs 20.3 % Normal 4.9-25.9 [facility] Comment on above: Result Comment: This test was developed and its performance characteristics determined by [facility]. It has not been cleared or approved by the Food and Drug Administration. Performed at: BN Performed By: #### L YMACT #### [facility] [address] [place] [address] Dr. Juan Zamarripa %CD8+CD57+Lymphs 16.6 % Critically high 0.0-11.3 [facility] Comment on above: Result Comment: This test was developed and its performance characteristics determined by [facility]. It has not been cleared or approved by the Food and Drug Administration. Performed at: BN Performed By: #### L YMACT #### [facility] [address] [address] [address] Juan Zamarripa Abs CD 4 helper 986 /uL Normal 359-1519 [facility] Comment on above: Result Comment: Perf ormed at: CB Performed By: #### L YMACT #### [facility] [address] [place] [address] Dr. Juan Zamarripa Abs. CD 8 Supp 898 /uL Critically high 109-897 [facility] Comment on above: Result Comment: Perf ormed at: CB Performed By: #### L YMACT #### [facility] [address] [place] [address] Dr. Juan Zamarripa Abs.CD3+CD25+Lymphs 447 /uL Normal 79-535 [facility] Comment on above: Result Comment: This test was developed and its performance characteristics determined by [facility]. It has not been cleared or approved by the Food and Drug Administration. Performed at: CB Performed By: #### L YMACT #### [facility] [address] [place] [address] Dr. Juan Zamarripa Abs.CD8+CD57+Lymphs 365 /uL Critically high 0-254 [facility] Comment on above: Result Comment: This test was developed and its performance characteristics determined by [facility]. It has not been cleared or approved by the Food and Drug Administration. Performed at: CB Performed By: #### L YMACT #### [facility] [address] [place] [address] Dr. Juan Zamarripa Absolute CD 3 1918 /uL Normal 622-2402 [facility] Comment on above: Result Comment: Perf ormed at: CB Performed By: #### L YMACT #### [facility] [address] [place] [address] Dr. Juan Zamarripa Basophils (Bld) [#/Vol] 0.0 10*3/uL Normal 0.0-0.2 [facility] Comment on above: Result Comment: Perf ormed at: CB Performed By: #### L YMACT #### [facility] [address] [place] [address] Dr. Juan Zamarripa Basophils/100 WBC (Bld) 1 % Normal Not Estab. [facility] Comment on above: Result Comment: Perf ormed at: CB Performed By: #### L YMACT #### [facility] [address] [place] [address] Dr. Juan Zamarripa CD4/CD8 Ratio 1.10 Normal 0.92-3.72 [facility] Comment on above: Result Comment: Perf ormed at: BN Performed By: #### L YMACT #### [facility] [address] [place] [address] Dr. Juan Zamarripa Eosinophils (Bld) [#/Vol] 0.1 10*3/uL Normal 0.0-0.4 [facility] Comment on above: Result Comment: Perf ormed at: CB Performed By: #### L YMACT #### [facility] [address] [place] [address] Dr. Juan Zamarripa Eosinophils/100 WBC (Bld) 1 % Normal Not Estab. [facility] Comment on above: Result Comment: Perf ormed at: CB Performed By: #### L YMACT #### [facility] [address] [place] [address] Dr. Juan Zamarripa Erythrocyte distribution width (RBC) [Ratio] 12.6 % Normal 11.7-15.4 [facility] Comment on above: Result Comment: Perf ormed at: CB Performed By: #### L YMACT #### [facility] [address] [place] [address] Dr. Juan Zamarripa Hematocrit (Bld) [Volume fraction] 41.9 % Normal 34.0-46.6 [facility] Comment on above: Result Comment: Perf ormed at: CB Performed By: #### L YMACT #### [facility] [address] [place] [address] Dr. Juan Zamarripa Hematology Comments Normal [facility] Comment on above: Result Comment: Perf ormed at: CB Performed By: #### L YMACT #### [facility] [address] [place] [address] Dr. Juan Zamarripa Hemoglobin (Bld) [Mass/Vol] 14.2 g/dL Normal 11.1-15.9 [facility] Comment on above: Result Comment: Perf ormed at: CB Performed By: #### L YMACT #### [facility] [address] [place] [address] Dr. Juan Zamarripa Immature Cells Normal [facility] Comment on above: Result Comment: Perf ormed at: CB Performed By: #### L YMACT #### [facility] [address] [place] [address] Dr. Juan Zamarripa Immature Grans (Abs) 0.0 x10E3/uL Normal 0.0-0.1 [facility] Comment on above: Result Comment: Perf ormed at: CB Performed By: #### L YMACT #### [facility] [address] [place] [address] Dr. Juan Zamarripa Immature granulocytes/100 WBC (Bld) 0 % Normal Not Estab. [facility] Comment on above: Result Comment: Perf ormed at: CB Performed By: #### L YMACT #### [facility] [address] [place] [address] Dr. Juan Zamarripa Lymphocytes (Bld) [#/Vol] 2.2 10*3/uL Normal 0.7-3.1 [facility] Comment on above: Result Comment: Perf ormed at: CB Performed By: #### L YMACT #### [facility] [address] [place] [address] Dr. Juan Zamarripa Lymphocytes/100 WBC (Bld) 87.2 % Critically high 57.5-86.2 [facility] Comment on above: Result Comment: Perf ormed at: BN Performed By: #### L YMACT #### [facility] [address] [place] [address] Dr. Juan Zamarripa Lymphocytes/100 WBC (Bld) 44.8 % Normal 30.8-58.5 [facility] Comment on above: Result Comment: Perf ormed at: BN Performed By: #### L YMACT #### [facility] [address] [place] [address] Dr. Juan Zamarripa Lymphocytes/100 WBC (Bld) 40.8 % Critically high 12.0-35.5 [facility] Comment on above: Result Comment: Perf ormed at: BN Performed By: #### L YMACT #### [facility] [address] [place] [address] Dr. Juan Zamarripa Lymphocytes/100 WBC (Bld) 34 % Normal Not Estab. [facility] Comment on above: Result Comment: Perf ormed at: CB Performed By: #### L YMACT #### [facility] [address] [place] [address] Dr. Juan Zamarripa MCH (RBC) [Entitic mass] 31.3 pg Normal 26.6-33.0 [facility] Comment on above: Result Comment: Perf ormed at: CB Performed By: #### L YMACT #### [facility] [address] [place] [address] Dr. Juan Zamarripa MCHC (RBC) [Mass/Vol] 33.9 g/dL Normal 31.5-35.7 [facility] Comment on above: Result Comment: Perf ormed at: CB Performed By: #### L YMACT #### [facility] [address] [place] [address] Dr. Juan Zamarripa MCV (RBC) [Entitic vol] 92 fL Normal 79-97 [facility] Comment on above: Result Comment: Perf ormed at: CB Performed By: #### L YMACT #### [facility] [address] [place] [address] Dr. Juan Zamarripa Monocytes (Bld) [#/Vol] 0.3 10*3/uL Normal 0.1-0.9 [facility] Comment on above: Result Comment: Perf ormed at: CB Performed By: #### L YMACT #### [facility] [address] [place] [address] Dr. Juan Zamarripa Monocytes/100 WBC (Bld) 4 % Normal Not Estab. [facility] Comment on above: Result Comment: Perf ormed at: CB Performed By: #### L YMACT #### [facility] [address] [place] [address] Dr. Juan Zamarripa Neutrophils Absolute 4.0 x10E3/uL Normal 1.4-7.0 [facility] Comment on above: Result Comment: Perf ormed at: CB Performed By: #### L YMACT #### [facility] [address] [place] [address] Dr. Juan Zamarripa Neutrophils/100 WBC (Bld) 60 % Normal Not Estab. [facility] Comment on above: Result Comment: Perf ormed at: CB Performed By: #### L YMACT #### [facility] [address] [place] [address] Dr. Juan Zamarripa NRBC Normal [facility] Comment on above: Result Comment: Perf ormed at: CB Performed By: #### L YMACT #### [facility] [address] [place] [address] Dr. Juan Zamarripa Platelets (Bld) [#/Vol] 164 10*3/uL Normal 150-450 [facility] Comment on above: Result Comment: Perf ormed at: CB Performed By: #### L YMACT #### [facility] [address] [place] [address] Dr. Juan Zamarripa RBC (Bld) [#/Vol] 4.54 10*6/uL Normal 3.77-5.28 [facility] Comment on above: Result Comment: Perf ormed at: CB Performed By: #### L YMACT #### [facility] [address] [place] [address] Dr. Juan Zamarripa WBC (Bld) [#/Vol] 6.6 10*3/uL Normal 3.4-10.8 [facility] Comment on above: Result Comment: Perf ormed at: CB Performed By: #### L YMACT #### [facility] [address] [place] [address] Dr. Juan Zamarripa PROF 14(COMP METB)on 023 Albumin [Mass/Vol] 4.1 g/dL Normal 3.4-5.0 [facility] Comment on above: Performed By: #### L IPA, HSTROPN, TSH, CMP #### [facility] [address] [place] [address] Dr. Juan Zamarripa Albumin/Globulin [Mass ratio] 1.1 {ratio} Normal [facility] Comment on above: Performed By: #### L IPA, HSTROPN, TSH, CMP #### [facility] [address] [place] [address] Dr. Juan Zamarripa ALP [Catalytic activity/Vol] 107 U/L Normal 46-116 [facility] Comment on above: Performed By: #### L IPA, HSTROPN, TSH, CMP #### [facility] [address] [address] [address] Juan Zamarripa ALT [Catalytic activity/Vol] 69 U/L Critically high 14-59 [facility] Comment on above: Performed By: #### L IPA, HSTROPN, TSH, CMP #### [facility] [address] [address] [address] Juan Zamarripa Anion gap [Moles/Vol] 14.0 mmol/L Normal [facility] Comment on above: Performed By: #### L IPA, HSTROPN, TSH, CMP #### [facility] [address] [place] [address] Dr. Juan Zamarripa AST [Catalytic activity/Vol] 31 U/L Normal 15-37 [facility] Comment on above: Performed By: #### L IPA, HSTROPN, TSH, CMP #### [facility] [address] [place] [address] Dr. Juan Zamarripa Bilirubin [Mass/Vol] 0.8 mg/dL Normal 0.2-1.0 [facility] Comment on above: Performed By: #### L IPA, HSTROPN, TSH, CMP #### [facility] [address] [place] [address] Dr. Juan Zamarripa Calcium [Mass/Vol] 9.1 mg/dL Normal 8.5-10.1 [facility] Comment on above: Performed By: #### L IPA, HSTROPN, TSH, CMP #### [facility] [address] [address] [address] Juan Zamarripa Chloride [Moles/Vol] 104 mmol/L Normal 98-107 [facility] Comment on above: Performed By: #### L IPA, HSTROPN, TSH, CMP #### [facility] [address] [place] [address] Dr. Juan Zamarripa CO2 [Moles/Vol] 28.1 mmol/L Normal 21.0-32.0 [facility] Comment on above: Performed By: #### L IPA, HSTROPN, TSH, CMP #### [facility] [address] [place] [address] Dr. Juan Zamarripa Creatinine [Mass/Vol] 0.77 mg/dL Normal 0.55-1.02 [facility] Comment on above: Performed By: #### L IPA, HSTROPN, TSH, CMP #### [facility] [address] [address] [address] Juan Zamarripa EGFR-AF TUVALUAN >60 Normal >=60 [facility] Comment on above: Performed By: #### L IPA, HSTROPN, TSH, CMP #### [facility] [address] [address] [address] Juan Zamarripa EGFR-NON AF TUVALUAN >60 Normal >=60 [facility] Comment on above: Performed By: #### L IPA, HSTROPN, TSH, CMP #### [facility] [address] [address] [address] Juan Zamarripa Globulin (S) [Mass/Vol] 3.9 g/dL Normal [facility] Comment on above: Performed By: #### L IPA, HSTROPN, TSH, CMP #### [facility] [address] [address] [address] Juan Zamarripa Glucose [Mass/Vol] 186 mg/dL Critically high 74-106 [facility] Comment on above: Performed By: #### L IPA, HSTROPN, TSH, CMP #### [facility] [address] [address] [address] Juan Zamarripa Potassium [Moles/Vol] 4.1 mmol/L Normal 3.5-5.1 [facility] Comment on above: Performed By: #### L IPA, HSTROPN, TSH, CMP #### [facility] [address] [address] [address] Juan Zamarripa Protein [Mass/Vol] 8.0 g/dL Normal 6.4-8.2 [facility] Comment on above: Performed By: #### L IPA, HSTROPN, TSH, CMP #### [facility] [address] [address] [address] Juan Zamarripa Sodium [Moles/Vol] 142 mmol/L Normal 136-145 [facility] Comment on above: Performed By: #### L IPA, HSTROPN, TSH, CMP #### [facility] [address] [place] [address] Dr. Juan Zamarripa Urea nitrogen [Mass/Vol] 9.0 mg/dL Normal 7.0-18.0 [facility] Comment on above: Performed By: #### L IPA, HSTROPN, TSH, CMP #### [facility] [address] [place] [address] Dr. Juan Zamarripa Urea nitrogen/Creatinine [Mass ratio] 11.7 mg/mg Normal [facility] Comment on above: Performed By: #### L IPA, HSTROPN, TSH, CMP #### [facility] [address] [place] [address] Dr. Juan Zamarripa CULTURE URINEon 06-12-2022 CULTURE URINE Culture Observations : LIGHT GROWTH OF MIXED GENITAL ALDA. NO POTENTIAL PATHOGENS SEEN. Normal [facility] Comment on above: Performed By: #### U RCX #### [facility] [address] [place] [address] Dr. Juan Zamarripa UA RANDOMon 06-12-2022 Glucose Ql (U) 100 mg/dl Abnormal NEGATIVE [facility] Comment on above: Performed By: #### U A #### [facility] [address] [place] [address] Dr. Juan Zamarripa LEUKOCYTES SMALL Abnormal NEGATIVE [facility] Comment on above: Performed By: #### U A #### [facility] [address] [place] [address] Dr. Juan Zamarripa SPEC GRAVITY 1.015 Normal 1.005-<=1.0 25 [facility] Comment on above: Performed By: #### U A #### [facility] [address] [place] [address] Dr. Juan Zamarripa UA PROTEIN Negative Normal NEGATIVE/ TRACE [facility] Comment on above: Performed By: #### U A #### [facility] [address] [place] [address] Dr. Juan Zamarripa Urobilinogen Qn (U) 0.2 {Amee'U}/dL Normal 0.2 - 1. 0 [facility] Comment on above: Performed By: #### U A #### [facility] [address] [address] [address] Juan Zamarripa Urinalysison 06-12-2022 Glucose Ql (U) 100 mg/dl Abnormal NEGATIVE mg/dl [employer] Other Urinalysis see note [facility] Other Urinalysis 1.015 1.005-<=1.0 25 [facility] Other Urinalysis Negative NEGATIVE/ TRACE mg/dl [facility] Other Urinalysis 0.2 EU/dl 0.2 - 1.0 EU/dl [facility] Other Urinalysis SMALL Abnormal NEGATIVE [employer] Other Bilirubin Ql (U) Negative Normal NEGATIVE [facility] [employer] Other Comment on above: Performed By: #### U A #### [facility] [address] [address] [address] Juan Zamarripa Clarity (U) CLEAR Normal CLEAR [facility] Other Comment on above: Performed By: #### U A #### [facility] [address] [place] [address] Dr. Juan Zamarripa Color (U) LT. YELLOW Normal YELLOW [employer] Other Comment on above: Performed By: #### U A #### [facility] [address] [address] [address] Juan Zamarripa Hemoglobin Ql (U) Negative Normal NEGATIVE [employer] Other Comment on above: Performed By: #### U A #### [facility] [address] [place] [address] Dr. Juan Zamarripa Ketones Ql (U) Negative Normal NEGATIVE [employer] Other Comment on above: Performed By: #### U A #### [facility] [address] [address] [address] Juan Zamarripa Nitrite Ql (U) Negative Normal NEGATIVE [employer] Other Comment on above: Performed By: #### U A #### [facility] [address] [place] [address] Dr. Juan Zamarripa pH (U) 6.0 [pH] Normal 5-9 [employer] Other Comment on above: Performed By: #### U A #### [facility] [address] [place] [address] Dr. Juan Zamarripa CULTURE URINEon 04-25-2022 CULTURE URINE Isolate 1 Enterococcus faecalis 25,000 cfu/mL of ORGANISM 1 Enterococcus faecalis ANTIBIOTIC M.I.C RX STATUS Beta-Lactamase Pos POS F Benzylpenicillin 2 S F Ampicillin <=2 S F Gentamicin High Level (synergy) SYN-S S F Streptomycin High Level (synergy) SYN-S S F Ciprofloxacin 1 S F Levofloxacin 1 S F Quinupristin/Dalfopris tin 4 R F Linezolid 2 S F Vancomycin 1 S F Tetracycline <=1 S F Nitrofurantoin <=16 S F Normal [facility] Comment on above: Performed By: #### A 1C #### [facility] [address] [place] [address] Dr. Juan Zamarripa TL by IFAon 04-24-2022 Antinuclear Antibodies, IFA Positive Abnormal [facility] Comment on above: Result Comment: Nega tive <1:80 Borderline 1:80 Positive >1:80 Performed By: #### L IPA, HSTROPN, TSH, CMP #### [facility] [address] [place] [address] Dr. Juan Zamarripa Centriole Pattern Normal [facility] Comment on above: Performed By: #### L IPA, HSTROPN, TSH, CMP #### [facility] [address] [place] [address] Dr. Juan Zamarripa Centromere Pattern Normal [facility] Comment on above: Performed By: #### L IPA, HSTROPN, TSH, CMP #### [facility] [address] [place], [place] [address] Dr. Juan Zamarripa Homogeneous Pattern 1:160 Critically high [facility] Comment on above: Result Comment: ICAP nomenclature: [id number] Performed By: #### L IPA, HSTROPN, TSH, CMP #### [facility] [address] [place], [place] [address] Dr. Juan Zamarripa Midbody Pattern Normal [facility] Comment on above: Performed By: #### L IPA, HSTROPN, TSH, CMP #### [facility] [address] [place], [place] [address] Dr. Juan Zamarripa Note: Comment Normal [facility] Comment on above: Result Comment: For more information about Hep-2 cell patterns use ANApatterns.org, the official website for the International Consensus on Antinuclear Antibody (TL) Patterns (ICAP). A positive TL result may occur in healthy individuals (low titer) or be associated with a variety of diseases. See interpretation chart which is not all inclusive: . Pattern Antigen Detected Suggested Disease Association Homogeneous DNA(ds,ss), SLE - High titers Nucleosomes, Histones Drug-induced SLE Speckled Sm, [employer], SCL-70, SLE,MCTD,PSS (diffuse form), SS-A/SS-B Sjogrens Nucleolar SCL-70, PM-1/SCL High titers Scleroderma, PM/DM Centromere Centromere PSS (limited form) w/Crest syndrome variable Nuclear Dot [id number] Primary Biliary Cirrhosis Nuclear GP210, Primary Biliary Cirrhosis Membrane trinity A,B,C Performed By: #### L IPA, HSTROPN, TSH, CMP #### [facility] [address] [place] [address] Dr. Juan Zamarripa Nuclear Dot Pattern Normal The [facility] Comment on above: Performed By: #### L IPA, HSTROPN, TSH, CMP #### [facility] [address] [place] [address] Dr. Juan Zamarripa Nuclear Membrane Pattern Normal The [facility] Comment on above: Performed By: #### L IPA, HSTROPN, TSH, CMP #### [facility] [address] [place] [address] Dr. Juan Zamarripa Nucleolar Pattern Normal The [facility] Comment on above: Performed By: #### L IPA, HSTROPN, TSH, CMP #### [facility] [address] [place] [address] Dr. Juan Zamarripa PCNA Pattern Normal The [facility] Comment on above: Performed By: #### L IPA, HSTROPN, TSH, CMP #### [facility] [address] [place] [address] Dr. Juan Zamarripa Speckled Pattern 1:160 Critically high The [facility] Comment on above: Result Comment: ICAP nomenclature: AC-[id number],29 Performed By: #### L IPA, HSTROPN, TSH, CMP #### [facility] [address] [place] [address] Dr. Juan Zamarripa Spindle Apparatus Pattern Normal The [facility] Comment on above: Performed By: #### L IPA, HSTROPN, TSH, CMP #### [facility] [address] [place] [address] Dr. Juan Zamarripa RHEUMATOID FACTORon 04-24-19 RA Latex Turbid. <10.0 Normal <14.0 [facility] Comment on above: Performed By: #### L IPA, HSTROPN, TSH, CMP #### [facility] [address] [place] [address] Dr. Juan Zamarripa CBC AUTO DIFFon 04-23-2022 BASO # 0.0 103/ul Normal 0.0-0.1 [facility] Comment on above: Performed By: #### C BC #### [facility] [address] [place] [address] Dr. Juan Zamarripa Basophils/100 WBC (Bld) 0.4 % Normal 0.2-2.0 [facility] Comment on above: Performed By: #### C BC #### [facility] [address] [place] [address] Dr. Juan Zamarripa EO # 0.1 103/ul Normal 0.0-0.7 The [facility] Comment on above: Performed By: #### C BC #### [facility] [address] [place] [address] Dr. Juan Zamarripa Eosinophils/100 WBC (Bld) 1.8 % Normal 0.9-7.0 The [facility] Comment on above: Performed By: #### C BC #### [facility] [address] [place] [address] Dr. Juan Zamarripa Erythrocyte distribution width (RBC) [Ratio] 12.6 % Normal 11.0-15.0 [facility] Comment on above: Performed By: #### C BC #### [facility] [address] [place] [address] Dr. Juan Zamarripa Hematocrit (Bld) [Volume fraction] 36.9 % Normal 36.0-48.0 [facility] Comment on above: Performed By: #### C BC #### [facility] [address] [place] [address] Dr. Juan Zamarripa Hemoglobin (Bld) [Mass/Vol] 12.6 g/dL Normal 12.0-16.0 [facility] Comment on above: Performed By: #### C BC #### [facility] [address] [place] [address] Dr. Juan Zamarripa IG # 0.02 10e3/ul Normal 0.00-0.03 [facility] Comment on above: Performed By: #### C BC #### [facility] [address] [place] [address] Dr. Juan Zamarripa IG % 0.3 % Normal 0.0-0.5 [facility] Comment on above: Performed By: #### C BC #### [facility] [address] [place] [address] Dr. Juan Zamarripa LYMPH # 3.3 103/ul Normal 1.2-3.8 [facility] Comment on above: Performed By: #### C BC #### [facility] [address] [place] [address] Dr. Juan Zamarripa Lymphocytes/100 WBC (Bld) 42.9 % Normal 20.5-60.0 [facility] Comment on above: Performed By: #### C BC #### [facility] [address] [place] [address] Dr. Juan Zamarripa MANUAL DIFF REQ NO Normal [facility] Comment on above: Performed By: #### C BC #### [facility] [address] [place] [address] Dr. Juan Zamarripa MCH (RBC) [Entitic mass] 31.2 pg Normal 26.7-34.0 The [facility] Comment on above: Performed By: #### C BC #### [facility] [address] [place] [address] Dr. Juan Zamarripa MCHC (RBC) [Mass/Vol] 34.1 g/dL Normal 29.9-35.2 The [facility] Comment on above: Performed By: #### C BC #### [facility] [address] [place] [address] Dr. Juan Zamarripa MCV (RBC) [Entitic vol] 91.3 fL Normal 81.0-99.0 The [facility] Comment on above: Performed By: #### C BC #### [facility] [address] [place] [address] Dr. Juan Zamarripa MONO # 0.3 103/ul Normal 0.3-0.8 The [facility] Comment on above: Performed By: #### C BC #### [facility] [address] [place] [address] Dr. Juan Zamarripa Monocytes/100 WBC (Bld) 4.4 % Normal 1.7-12.0 The [facility] Comment on above: Performed By: #### C BC #### [facility] [address] [place] [address] Dr. Juan Zamarripa NEUT # 3.9 103/ul Normal 1.4-6.5 The [facility] Comment on above: Performed By: #### C BC #### [facility] [address] [place] [address] Dr. Juan Zamarripa Neutrophils/100 WBC (Bld) 50.2 % Normal 43.0-75.0 The [facility] Comment on above: Performed By: #### C BC #### [facility] [address] [place] [address] Dr. Juan Zamarripa Platelet mean volume (Bld) [Entitic vol] 9.0 fL Critically low 9.5-13.5 The [facility] Comment on above: Performed By: #### C BC #### [facility] [address] [address] [address] Juan Zamarripa PLT 158 103/ul Normal 150-450 [facility] Comment on above: Performed By: #### C BC #### [facility] [address] [address] [address] Juan Zamarripa RBC 4.04 106/ul Critically low 4.20-5.40 [facility] Comment on above: Performed By: #### C BC #### [facility] [address] [address] [address] Juan Zamarripa WBC 7.8 103/ul Normal 4.0-11.0 [facility] Comment on above: Performed By: #### C BC #### [facility] [address] [place] [address] Dr. Juan Zamarripa CULTURE BLOODon 04-23-2022 Microscopic examination of blood, culture Culture Observations: NO GROWTH AT 5 DAYS. Normal [facility] Comment on above: Performed By: #### A 1C #### [facility] [address] [place] [address] Dr. Juan Zamarripa PROF 14(COMP METB)on 023 Albumin [Mass/Vol] 4.0 g/dL Normal 3.4-5.0 [facility] Comment on above: Performed By: #### L IPA, HSTROPN, TSH, CMP #### [facility] [address] [place] [address] Dr. Juan Zamarripa Albumin/Globulin [Mass ratio] 1.0 {ratio} Normal [facility] Comment on above: Performed By: #### L IPA, HSTROPN, TSH, CMP #### [facility] [address] [place] [address] Dr. Juan Zamarripa ALP [Catalytic activity/Vol] 87 U/L Normal 46-116 [facility] Comment on above: Performed By: #### L IPA, HSTROPN, TSH, CMP #### [facility] [address] [place] [address] Dr. Juan Zamarripa ALT [Catalytic activity/Vol] 78 U/L Critically high 14-59 [facility] Comment on above: Performed By: #### L IPA, HSTROPN, TSH, CMP #### [facility] [address] [address] [address] Juan Zamarripa Anion gap [Moles/Vol] 12.4 mmol/L Normal Th e [facility] Comment on above: Performed By: #### L IPA, HSTROPN, TSH, CMP #### [facility] [address] [address] [address] Juan Zamarripa AST [Catalytic activity/Vol] 39 U/L Critically high 15-37 [facility] Comment on above: Performed By: #### L IPA, HSTROPN, TSH, CMP #### [facility] [address] [address] [address] Juan Zamarripa Bilirubin [Mass/Vol] 0.7 mg/dL Normal 0.2-1.0 [facility] Comment on above: Performed By: #### L IPA, HSTROPN, TSH, CMP #### [facility] [address] [address] [address] Juan Zamarripa Calcium [Mass/Vol] 9.6 mg/dL Normal 8.5-10.1 [facility] Comment on above: Performed By: #### L IPA, HSTROPN, TSH, CMP #### [facility] [address] [address] [address] Juan Zamarripa Chloride [Moles/Vol] 101 mmol/L Normal 98-107 The [facility] Comment on above: Performed By: #### L IPA, HSTROPN, TSH, CMP #### [facility] [address] [address] [address] Juan Zamarripa CO2 [Moles/Vol] 29.5 mmol/L Normal 21.0-32.0 The [facility] Comment on above: Performed By: #### L IPA, HSTROPN, TSH, CMP #### [facility] [address] [address] [address] Juan Zamarripa Creatinine [Mass/Vol] 0.84 mg/dL Normal 0.55-1.02 [facility] Comment on above: Performed By: #### L IPA, HSTROPN, TSH, CMP #### [facility] [address] [address] [address] Juan Zamarripa EGFR-AF TUVALUAN >60 Normal >=60 [facility] Comment on above: Performed By: #### L IPA, HSTROPN, TSH, CMP #### [facility] [address] [address] [address] Juan Zamarripa EGFR-NON AF TUVALUAN >60 Normal >=60 [facility] Comment on above: Performed By: #### L IPA, HSTROPN, TSH, CMP #### [facility] [address] [address] [address] Juan Zamarripa Globulin (S) [Mass/Vol] 4.0 g/dL Normal [facility] Comment on above: Performed By: #### L IPA, HSTROPN, TSH, CMP #### [facility] [address] [address] [address] Juan Zamarripa Glucose [Mass/Vol] 208 mg/dL Critically high 74-106 [facility] Comment on above: Performed By: #### L IPA, HSTROPN, TSH, CMP #### [facility] [address] [address] [address] Juan Zamarripa Potassium [Moles/Vol] 3.9 mmol/L Normal 3.5-5.1 [facility] Comment on above: Performed By: #### L IPA, HSTROPN, TSH, CMP #### [facility] [address] [address] [address] Juan Zamarripa Protein [Mass/Vol] 8.0 g/dL Normal 6.4-8.2 [facility] Comment on above: Performed By: #### L IPA, HSTROPN, TSH, CMP #### [facility] [address] [address] [address] Juan Zamarripa Sodium [Moles/Vol] 139 mmol/L Normal 136-145 [facility] Comment on above: Performed By: #### L IPA, HSTROPN, TSH, CMP #### [facility] [address] [address] [address] Juan Zamarripa Urea nitrogen [Mass/Vol] 15.0 mg/dL Normal 7.0-18.0 [facility] Comment on above: Performed By: #### L IPA, HSTROPN, TSH, CMP #### [facility] [address] [address] [address] Juan Zamarripa Urea nitrogen/Creatinine [Mass ratio] 17.9 mg/mg Normal [facility] Comment on above: Performed By: #### L IPA, HSTROPN, TSH, CMP #### [facility] [address] [address] [address] Juan [facility]ri[facility] 26 mm/hr Normal <=30 [facility] Comment on above: Performed By: #### L IPA, HSTROPN, TSH, CMP #### [facility] [address] [place] [address] Dr. Juan Zamarripa CULTURE BLOODon 04-18-2022 Microscopic examination of blood, culture Culture Observations: positive anaerobic bottle 04-13-22 @ 1116 Culture Observations: bcid= staph spp. Culture Observations: NO GROWTH AT 5 DAYS. aerobic BOTTLE Isolate 1 Staphlycoccus hominis Growth of ORGANISM 1 Staphlycoccus hominis ANTIBIOTIC M.I.C RX STATUS Beta-Lactamase Neg NEG C Cefoxitin Screen Pos POS C Benzylpenicillin >=0.5 R C Oxacillin >=4 R C Gentamicin <=0.5 S C Ciprofloxacin <=0.5 S C Levofloxacin <=0.12 S C Erythromycin >=8 R C Clindamycin <=0.25 S C Quinupristin/Dalfopris tin 0.5 S C Linezolid 4 S C Vancomycin 1 S C Tetracycline 2 S C Rifampicin <=0.5 S C Trimethoprim/Sulfameth oxazole <=10 S C Normal [facility] Comment on above: Performed By: #### A 1C #### [facility] [address] [place] [address] Dr. Juan Zamarripa CBC AUTO DIFFon 04-13-2022 BASO # 0.1 103/ul Normal 0.0-0.1 [facility] Comment on above: Performed By: #### C BC #### [facility] [address] [address] [address] Juan Zamarripa Basophils/100 WBC (Bld) 0.6 % Normal 0.2-2.0 [facility] Comment on above: Performed By: #### C BC #### [facility] [address] [address] [address] Juan Zamarripa EO # 0.2 103/ul Normal 0.0-0.7 [facility] Comment on above: Performed By: #### C BC #### [facility] [address] [place] [address] Dr. Juan Zamarripa Eosinophils/100 WBC (Bld) 1.6 % Normal 0.9-7.0 [facility] Comment on above: Performed By: #### C BC #### [facility] [address] [place] [address] Dr. Juan Zamarripa Erythrocyte distribution width (RBC) [Ratio] 12.6 % Normal 11.0-15.0 [facility] Comment on above: Performed By: #### C BC #### [facility] [address] [place] [address] Dr. Juan Zamarripa Hematocrit (Bld) [Volume fraction] 36.1 % Normal 36.0-48.0 [facility] Comment on above: Performed By: #### C BC #### [facility] [address] [place] [address] Dr. Juan Zamarripa Hemoglobin (Bld) [Mass/Vol] 12.5 g/dL Normal 12.0-16.0 [facility] Comment on above: Performed By: #### C BC #### [facility] [address] [place] [address] Dr. Juan Zamarripa IG # 0.02 10e3/ul Normal 0.00-0.03 [facility] Comment on above: Performed By: #### C BC #### [facility] [address] [place] [address] Dr. Juan Zamarripa IG % 0.2 % Normal 0.0-0.5 [facility] Comment on above: Performed By: #### C BC #### [facility] [address] [place] [address] Dr. Juan Zamarripa LYMPH # 4.8 103/ul Critically high 1.2-3.8 [facility] Comment on above: Performed By: #### C BC #### [facility] [address] [place] [address] Dr. Juan Zamarripa Lymphocytes/100 WBC (Bld) 49.6 % Normal 20.5-60.0 [facility] Comment on above: Performed By: #### C BC #### [facility] [address] [place] [address] Dr. Juan Zamarripa MANUAL DIFF REQ NO Normal [facility] Comment on above: Performed By: #### C BC #### [facility] [address] [place] [address] Dr. Juan Zamarripa MCH (RBC) [Entitic mass] 31.3 pg Normal 26.7-34.0 [facility] Comment on above: Performed By: #### C BC #### [facility] [address] [place] [address] Dr. Juan Zamarripa MCHC (RBC) [Mass/Vol] 34.6 g/dL Normal 29.9-35.2 [facility] Comment on above: Performed By: #### C BC #### [facility] [address] [place] [address] Dr. Juan Zamarripa MCV (RBC) [Entitic vol] 90.3 fL Normal 81.0-99.0 [facility] Comment on above: Performed By: #### C BC #### [facility] [address] [place] [address] Dr. Juan Zamarripa MONO # 0.5 103/ul Normal 0.3-0.8 [facility] Comment on above: Performed By: #### C BC #### [facility] [address] [place] [address] Dr. Juan Zamarripa Monocytes/100 WBC (Bld) 4.8 % Normal 1.7-12.0 [facility] Comment on above: Performed By: #### C BC #### [facility] [address] [address] [address] Juan Zamarripa NEUT # 4.2 103/ul Normal 1.4-6.5 [facility] Comment on above: Performed By: #### C BC #### [facility] [address] [address] [address] Juan Zamarripa Neutrophils/100 WBC (Bld) 43.2 % Normal 43.0-75.0 [facility] Comment on above: Performed By: #### C BC #### [facility] [address] [address] [address] Juan Zamarripa Platelet mean volume (Bld) [Entitic vol] 9.5 fL Normal 9.5-13.5 [facility] Comment on above: Performed By: #### C BC #### [facility] [address] [place] [address] Dr. Juan Zamarripa PLT 149 103/ul Critically low 150-450 [facility] Comment on above: Performed By: #### C BC #### [facility] [address] [address] [address] Juan Zamarripa RBC 4.00 106/ul Critically low 4.20-5.40 [facility] Comment on above: Performed By: #### C BC #### [facility] [address] [place] [address] Dr. Juan Zamarripa WBC 9.6 103/ul Normal 4.0-11.0 [facility] Comment on above: Performed By: #### C BC #### [facility] [address] [place] [address] Dr. Juan Zamarripa PROF CHEM 8 (BAS METB)on Anion gap [Moles/Vol] 11.4 mmol/L Normal [facility] Comment on above: Performed By: #### L IPA, HSTROPN, TSH, CMP #### [facility] [address] [place] [address] Dr. Juan Zamarripa Calcium [Mass/Vol] 8.7 mg/dL Normal 8.5-10.1 [facility] Comment on above: Performed By: #### L IPA, HSTROPN, TSH, CMP #### [facility] [address] [address] [address] Juan Zamarripa Chloride [Moles/Vol] 102 mmol/L Normal 98-107 [facility] Comment on above: Performed By: #### L IPA, HSTROPN, TSH, CMP #### [facility] [address] [place] [address] Dr. Juan Zamarripa CO2 [Moles/Vol] 28.5 mmol/L Normal 21.0-32.0 [facility] Comment on above: Performed By: #### L IPA, HSTROPN, TSH, CMP #### [facility] [address] [place] [address] Dr. Juan Zamarripa Creatinine [Mass/Vol] 0.88 mg/dL Normal 0.55-1.02 [facility] Comment on above: Performed By: #### L IPA, HSTROPN, TSH, CMP #### [facility] [address] [place] [address] Dr. Juan Zamarripa EGFR-AF TUVALUAN >60 Normal >=60 [facility] Comment on above: Performed By: #### L IPA, HSTROPN, TSH, CMP #### [facility] [address] [place] [address] Dr. Juan Zamarripa EGFR-NON AF TUVALUAN >60 Normal >=60 [facility] Comment on above: Performed By: #### L IPA, HSTROPN, TSH, CMP #### [facility] [address] [place] [address] Dr. Juan Zamarripa Glucose [Mass/Vol] 129 mg/dL Critically high 74-106 [facility] Comment on above: Performed By: #### L IPA, HSTROPN, TSH, CMP #### [facility] [address] [place] [address] Dr. Juan Zamarripa Potassium [Moles/Vol] 3.9 mmol/L Normal 3.5-5.1 [facility] Comment on above: Performed By: #### L IPA, HSTROPN, TSH, CMP #### [facility] [address] [address] [address] Juan Zamarripa Sodium [Moles/Vol] 138 mmol/L Normal 136-145 [facility] Comment on above: Performed By: #### L IPA, HSTROPN, TSH, CMP #### [facility] [address] [address] [address] Juan Zamarripa Urea nitrogen [Mass/Vol] 12.0 mg/dL Normal 7.0-18.0 [facility] Comment on above: Performed By: #### L IPA, HSTROPN, TSH, CMP #### [facility] [address] [address] [address] Juan Zamarripa Urea nitrogen/Creatinine [Mass ratio] 13.6 mg/mg Normal [facility] Comment on above: Performed By: #### L IPA, HSTROPN, TSH, CMP #### [facility] [address] [place] [address] Dr. Juan Zamarripa ACETONE SERUMon 04-12-2022 ACETONE Negative Normal NEGATIVE [facility] Comment on above: Performed By: #### C BC #### [facility] [address] [place] [address] Dr. Juan Zamarripa BLOOD CULTURE ID PANELon A. baumannii Not detected Normal NOT DETECTED [facility] Comment on above: Performed By: #### L IPA, HSTROPN, TSH, CMP #### [facility] [address] [place] [address] Dr. Juan Zamarripa Bacteriodes fragilis Not detected Normal NOT DETECTED [facility] Comment on above: Performed By: #### L IPA, HSTROPN, TSH, CMP #### [facility] [address] [address] [address] Juan Zamarripa BCID CONTROLS PASSED Normal [facility] Comment on above: Performed By: #### L IPA, HSTROPN, TSH, CMP #### [facility] [address] [place] [address] Dr. Juan Zamarripa BCIDBTHD BLOOD CULTURE BOTTLE INFORMATION Normal [facility] Comment on above: Performed By: #### L IPA, HSTROPN, TSH, CMP #### [facility] [address] [address] [address] Juan Zamarripa BCIDHD1 ANTIMICROBIAL RESISTANCE GENES Normal [facility] Comment on above: Performed By: #### L IPA, HSTROPN, TSH, CMP #### [facility] [address] [address] [address] Juan Zamarripa BCIDHD2 SEE BELOW Normal [facility] Comment on above: Result Comment: Note : Antimicrobial resitance can occur via multiple mechanisms. A Not Detected result for the [employer] antomicrobial resistance gene assays does not indicate antimicrobial susceptibility. Subculturing is required for species identification and susceptibility testing of isolates. Performed By: #### L IPA, HSTROPN, TSH, CMP #### [facility] [facility] [address] [address] [address] Juan Zamarripa BCIDHD3 Positive Normal [facility] Comment on above: Performed By: #### L IPA, HSTROPN, TSH, CMP #### [facility] [address] [address] [address] Juan Zamarripa BCIDHD4 Negative Normal [facility] Comment on above: Performed By: #### L IPA, HSTROPN, TSH, CMP #### [facility] [address] [address] [address] Juan Zamarripa BCIDHD5 YEAST Normal [facility] Comment on above: Performed By: #### L IPA, HSTROPN, TSH, CMP #### [facility] [address] [address] [address] Juan Zamarripa Bottle Set: Set 1 [facility] Comment on above: Performed By: #### L IPA, HSTROPN, TSH, CMP #### [facility] [address] [place] [address] Dr. Juan Zamarripa Bottle: Anaerobic Normal [facility] Comment on above: Performed By: #### L IPA, HSTROPN, TSH, CMP #### [facility] [address] [address] [address] Juan Zamarripa C. neoformans/gattii Not detected Normal NOT DETECTED [facility] Comment on above: Performed By: #### L IPA, HSTROPN, TSH, CMP #### [facility] [address] [place] [address] Dr. Juan Zamarripa Mary Lou albicans Not detected Normal NOT DETECTED [facility] Comment on above: Performed By: #### L IPA, HSTROPN, TSH, CMP #### [facility] [address] [address] [address] Juan Zamarripa Mary Lou auris Not detected Normal NOT DETECTED [facility] Comment on above: Performed By: #### L IPA, HSTROPN, TSH, CMP #### [facility] [address] [place] [address] Dr. Juan Zamarripa Mary Lou glabrata Not detected Normal NOT DETECTED [facility] Comment on above: Performed By: #### L IPA, HSTROPN, TSH, CMP #### [facility] [address] [place] [address] Dr. Juan Zamarripa Mary Lou Krusei Not detected Normal NOT DETECTED [facility] Comment on above: Performed By: #### L IPA, HSTROPN, TSH, CMP #### [facility] [address] [place] [address] Dr. Juan Zamarripa Mary Lou Parapsilosis Not detected Normal NOT DETECTED [facility] Comment on above: Performed By: #### L IPA, HSTROPN, TSH, CMP #### [facility] [address] [place] [address] Dr. Juan Zamarripa Mary Lou Tropicalis Not detected Normal NOT DETECTED [facility] Comment on above: Performed By: #### L IPA, HSTROPN, TSH, CMP #### [facility] [address] [address] [address] Juan Zamarripa CTX-M Resistant Gene Not Applicable Normal NOT DETECTED [facility] Comment on above: Performed By: #### L IPA, HSTROPN, TSH, CMP #### [facility] [address] [address] [address] Juan Zamarripa E. Cloacae complex Not detected Normal NOT DETECTED [facility] Comment on above: Performed By: #### L IPA, HSTROPN, TSH, CMP #### [facility] [address] [place] [address] Dr. Juan Zamarripa E. faecalis Not detected Normal NOT DETECTED [facility] Comment on above: Performed By: #### L IPA, HSTROPN, TSH, CMP #### [facility] [address] [place] [address] Dr. Juan Zamarripa E. faecium Not detected Normal NOT DETECTED [facility] Comment on above: Performed By: #### L IPA, HSTROPN, TSH, CMP #### [facility] [address] [place] [address] Dr. Juan Zamarripa Enterobacteriaceae Not detected Normal NOT DETECTED [facility] Comment on above: Performed By: #### L IPA, HSTROPN, TSH, CMP #### [facility] [address] [place] [address] Dr. Juan Zamarripa Escherichia coli Not detected Normal NOT DETECTED [facility] Comment on above: Performed By: #### L IPA, HSTROPN, TSH, CMP #### [facility] [address] [place] [address] Dr. Juan Zamarripa H. influenzae Not detected Normal NOT DETECTED [facility] Comment on above: Performed By: #### L IPA, HSTROPN, TSH, CMP #### [facility] [address] [place] [address] Dr. Juan Zamarripa IMP Resistant Gene Not Applicable Normal NOT DETECTED [facility] Comment on above: Performed By: #### L IPA, HSTROPN, TSH, CMP #### [facility] [address] [place] [address] Dr. Juan Zamarripa K. oxytoca Not detected Normal NOT DETECTED [facility] Comment on above: Performed By: #### L IPA, HSTROPN, TSH, CMP #### [facility] [address] [place] [address] Dr. Juan Zamarripa K. pneumoniae Not detected Normal NOT DETECTED [facility] Comment on above: Performed By: #### L IPA, HSTROPN, TSH, CMP #### [facility] [address] [place] [address] Dr. Juan Zamarripa Klebsiella aerogenes Not detected Normal NOT DETECTED [facility] Comment on above: Performed By: #### L IPA, HSTROPN, TSH, CMP #### [facility] [address] [place] [address] Dr. Juan Zamarripa KPC Resistant Gene Not Applicable Normal NOT DETECTED [facility] Comment on above: Performed By: #### L IPA, HSTROPN, TSH, CMP #### [facility] [address] [place] [address] Dr. Juan Zamarripa List. monocytogenes Not detected Normal NOT DETECTED [facility] Comment on above: Performed By: #### L IPA, HSTROPN, TSH, CMP #### [facility] [address] [place] [address] Dr. Juan Zamarripa Mcr-1 Resistant Gene Not Applicable Normal NOT DETECTED [facility] Comment on above: Performed By: #### L IPA, HSTROPN, TSH, CMP #### [facility] [address] [place] [address] Dr. Juan Zamarripa mecA/C Not Applicable Normal NOT DETECTED [facility] Comment on above: Performed By: #### L IPA, HSTROPN, TSH, CMP #### [facility] [address] [place] [address] Dr. Juan Zamarripa mecA/C MREJ Not Applicable Normal NOT DETECTED [facility] Comment on above: Performed By: #### L IPA, HSTROPN, TSH, CMP #### [facility] [address] [place] [address] Dr. Juan Zamarripa N. meningitidis Not detected Normal NOT DETECTED [facility] Comment on above: Performed By: #### L IPA, HSTROPN, TSH, CMP #### [facility] [address] [place] [address] Dr. Juan Zamarripa NDM Resistant Gene Not Applicable Normal NOT DETECTED [facility] Comment on above: Performed By: #### L IPA, HSTROPN, TSH, CMP #### [facility] [address] [place] [address] Dr. Juan Zamarripa Oxa-48-like Not Applicable Normal NOT DETECTED [facility] Comment on above: Performed By: #### L IPA, HSTROPN, TSH, CMP #### [facility] [address] [address] [address] Juan Zamarripa Proteus Not detected Normal NOT DETECTED [facility] Comment on above: Performed By: #### L IPA, HSTROPN, TSH, CMP #### [facility] [address] [address] [address] Juan Zamarripa Pseud. aeruginosa Not detected Normal NOT DETECTED [facility] Comment on above: Performed By: #### L IPA, HSTROPN, TSH, CMP #### [facility] [address] [place] [address] Dr. Juan Zamarripa S. maltophilia Not detected Normal NOT DETECTED [facility] Comment on above: Performed By: #### L IPA, HSTROPN, TSH, CMP #### [facility] [address] [place] [address] Dr. Juan Zamarripa Salmonella Not detected Normal NOT DETECTED [facility] Comment on above: Performed By: #### L IPA, HSTROPN, TSH, CMP #### [facility] [address] [place] [address] Dr. Juan Zamarripa Seratia marcescens Not detected Normal NOT DETECTED [facility] Comment on above: Performed By: #### L IPA, HSTROPN, TSH, CMP #### [facility] [address] [place] [address] Dr. Juan Zamarripa Site: Rt Ac Normal [facility] Comment on above: Performed By: #### L IPA, HSTROPN, TSH, CMP #### [facility] [address] [address] [address] Juan Zamarripa Staph. aureus Not detected Normal NOT DETECTED [facility] Comment on above: Performed By: #### L IPA, HSTROPN, TSH, CMP #### [facility] [address] [address] [address] Juan Zamarripa Staph. epidermidis Not detected Normal NOT DETECTED [facility] Comment on above: Performed By: #### L IPA, HSTROPN, TSH, CMP #### [facility] [address] [address] [address] Juan Zamarripa Staph. lugdunensis Not detected Normal NOT DETECTED [facility] Comment on above: Performed By: #### L IPA, HSTROPN, TSH, CMP #### [facility] [address] [address] [address] Juan Zamarripa Staphylococcus Detected Critically abnormal NOT DETECTED [facility] Comment on above: Performed By: #### L IPA, HSTROPN, TSH, CMP #### [facility] [address] [address] [address] Juan Zamarripa Strep. agalactiae Not detected Normal NOT DETECTED [facility] Comment on above: Performed By: #### L IPA, HSTROPN, TSH, CMP #### [facility] [address] [place] [address] Dr. Juan Zamarripa Strep. pneumoniae Not detected Normal NOT DETECTED [facility] Comment on above: Performed By: #### L IPA, HSTROPN, TSH, CMP #### [facility] [address] [place] [address] Dr. Juan Zamarripa Strep. pyogenes Not detected Normal NOT DETECTED [facility] Comment on above: Performed By: #### L IPA, HSTROPN, TSH, CMP #### [facility] [address] [place] [address] Dr. Juan Zamarripa Streptococcus Not detected Normal NOT DETECTED [facility] Comment on above: Performed By: #### L IPA, HSTROPN, TSH, CMP #### [facility] [address] [address] [address] Juan Zamarripa Aleyda/B Resist. Gene Not Applicable Normal NOT DETECTED [facility] Comment on above: Performed By: #### L IPA, HSTROPN, TSH, CMP #### [facility] [address] [place] [address] Dr. Juan Zamarripa VIM Resistant Gene Not Applicable Normal NOT DETECTED [facility] Comment on above: Performed By: #### L IPA, HSTROPN, TSH, CMP #### [facility] [address] [place] [address] Dr. Juan Zamarripa CBC AUTO DIFFon 04-12-2022 BASO # 0.1 103/ul Normal 0.0-0.1 [facility] Comment on above: Performed By: #### L IPA, HSTROPN, TSH, CMP #### [facility] [address] [place] [address] Dr. Juan Zamarripa Basophils/100 WBC (Bld) 0.6 % Normal 0.2-2.0 [facility] Comment on above: Performed By: #### L IPA, HSTROPN, TSH, CMP #### [facility] [address] [place] [address] Dr. Juan Zamarripa EO # 0.1 103/ul Normal 0.0-0.7 [facility] Comment on above: Performed By: #### L IPA, HSTROPN, TSH, CMP #### [facility] [address] [place] [address] Dr. Juan Zamarripa Eosinophils/100 WBC (Bld) 0.9 % Normal 0.9-7.0 [facility] Comment on above: Performed By: #### L IPA, HSTROPN, TSH, CMP #### [facility] [address] [place] [address] Dr. Juan Zamarripa Erythrocyte distribution width (RBC) [Ratio] 12.8 % Normal 11.0-15.0 [facility] Comment on above: Performed By: #### L IPA, HSTROPN, TSH, CMP #### [facility] [address] [place] [address] Dr. Juan Zamarripa Hematocrit (Bld) [Volume fraction] 42.9 % Normal 36.0-48.0 [facility] Comment on above: Performed By: #### L IPA, HSTROPN, TSH, CMP #### [facility] [address] [place] [address] Dr. Juan Zamarripa Hemoglobin (Bld) [Mass/Vol] 15.1 g/dL Normal 12.0-16.0 [facility] Comment on above: Performed By: #### L IPA, HSTROPN, TSH, CMP #### [facility] [address] [place] [address] Dr. Juan Zamarripa IG # 0.04 10e3/ul Critically high 0.00-0.03 [facility] Comment on above: Performed By: #### L IPA, HSTROPN, TSH, CMP #### [facility] [address] [place] [address] Dr. Juan Zamarripa IG % 0.3 % Normal 0.0-0.5 [facility] Comment on above: Performed By: #### L IPA, HSTROPN, TSH, CMP #### [facility] [address] [place] [address] Dr. Juan Zamarripa LYMPH # 5.0 103/ul Critically high 1.2-3.8 [facility] Comment on above: Performed By: #### L IPA, HSTROPN, TSH, CMP #### [facility] [address] [place] [address] Dr. Juan Zamarripa Lymphocytes/100 WBC (Bld) 43.6 % Normal 20.5-60.0 [facility] Comment on above: Performed By: #### L IPA, HSTROPN, TSH, CMP #### [facility] [address] [place] [address] Dr. Juan Zamarripa MANUAL DIFF REQ NO Normal [facility] Comment on above: Performed By: #### L IPA, HSTROPN, TSH, CMP #### [facility] [address] [place] [address] Dr. Juan Zamarripa MCH (RBC) [Entitic mass] 31.3 pg Normal 26.7-34.0 [facility] Comment on above: Performed By: #### L IPA, HSTROPN, TSH, CMP #### [facility] [address] [place] [address] Dr. Juan Zamarripa MCHC (RBC) [Mass/Vol] 35.2 g/dL Normal 29.9-35.2 [facility] Comment on above: Performed By: #### L IPA, HSTROPN, TSH, CMP #### [facility] [address] [place] [address] Dr. Juan Zamarripa MCV (RBC) [Entitic vol] 88.8 fL Normal 81.0-99.0 [facility] Comment on above: Performed By: #### L IPA, HSTROPN, TSH, CMP #### [facility] [address] [place] [address] Dr. Juan Zamarripa MONO # 0.6 103/ul Normal 0.3-0.8 [facility] Comment on above: Performed By: #### L IPA, HSTROPN, TSH, CMP #### [facility] [address] [place] [address] Dr. Juan Zamarripa Monocytes/100 WBC (Bld) 5.2 % Normal 1.7-12.0 [facility] Comment on above: Performed By: #### L IPA, HSTROPN, TSH, CMP #### [facility] [address] [place] [address] Dr. Juan Zamarripa NEUT # 5.7 103/ul Normal 1.4-6.5 [facility] Comment on above: Performed By: #### L IPA, HSTROPN, TSH, CMP #### [facility] [address] [place] [address] Dr. Juan Zamarripa Neutrophils/100 WBC (Bld) 49.4 % Normal 43.0-75.0 [facility] Comment on above: Performed By: #### L IPA, HSTROPN, TSH, CMP #### [facility] [address] [place] [address] Dr. Juan Zamarripa Platelet mean volume (Bld) [Entitic vol] 9.6 fL Normal 9.5-13.5 [facility] Comment on above: Performed By: #### L IPA, HSTROPN, TSH, CMP #### [facility] [address] [place] [address] Dr. Juan Zamarripa PLT 210 103/ul Normal 150-450 [facility] Comment on above: Performed By: #### L IPA, HSTROPN, TSH, CMP #### [facility] [address], [place] [address] Dr. Juan Zamarripa RBC 4.83 106/ul Normal 4.20-5.40 [facility] Comment on above: Performed By: #### L IPA, HSTROPN, TSH, CMP #### [facility] [address], [place] [address] Dr. Juan Zamarripa WBC 11.5 103/ul Critically high 4.0-11.0 [facility] Comment on above: Performed By: #### L IPA, HSTROPN, TSH, CMP #### [facility] [address], [place] [address] ABD/PELV W CONon 04-12-19 CT ABD/PELV W CON EXAMINATION: CT ABD/PELV W CON HISTORY: DIARRHEA, UNSPECIFIED COMPARISON: 09/17/2014 TECHNIQUE: Axial CT images were obtained of the abdomen and pelvis with intravenous contrast. Multiplanar reconstructions were performed. Dose reduction techniques were achieved by using automated exposure control and/or adjustment of mA and/or kV according to patient size and/or use of iterative reconstruction technique. ABDOMEN/PELVIS FINDINGS: Lower Chest: Unremarkable. Liver: Nodular hepatic contour consistent with cirrhosis. Biliary/Gallbladder: Prior cholecystectomy. Pancreas: Unremarkable. Spleen: Unremarkable. Adrenal Glands: Unremarkable. Kidneys: A few tiny hypodense lesions are present in the kidneys bilaterally, most of which are too small to characterize. A 1 cm lesion at the upper pole the left kidney has increased internal density but is stable in size from the remote prior exam, likely representing a hemorrhagic cyst. 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 No renal calculus or hydronephrosis identified. Gastrointestinal/Perit oneum: No acute abnormality. The appendix is unremarkable. No free air or free fluid. Vascular: Mild scattered atherosclerotic calcification present. Lymph Nodes: No enlarged lymph nodes by CT size criteria. Pelvic Organs: Prior hysterectomy. Bladder: Mild diffuse bladder wall thickening is present. Bones: No acute osseous abnormality. Moderate degenerative disc disease present at L5-S1. Otherwise, mild multilevel degenerative changes are present in the visualized spine. Soft tissues: Unremarkable. IMPRESSION: 1. Mild diffuse bladder wall thickening, possibly due to cystitis. 2. Cirrhotic morphology of the liver. 3. Prior cholecystectomy and hysterectomy. 4. 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 5. 1 cm intermediate density lesion in the left kidney, likely represents a hemorrhagic cyst. Electronically authenticated by: CARO SIBLEY Date: 2022-04-12 16:53 Normal [facility] CULTURE BLOODon 04-12-2022 Microscopic examination of blood, culture Culture Observations: NO GROWTH AT 5 DAYS. Isolate 1 [id number] Normal [facility] Comment on above: Performed By: #### A 1C #### [facility] [address] [place] [address] Dr. Juan Zamarripa CULTURE URINEon 04-12-2022 CULTURE URINE Culture Observations : MODERATE GROWTH OF MIXED GENITAL ALDA. NO POTENTIAL PATHOGENS SEEN. Normal [facility] Comment on above: Performed By: #### U RCX #### [facility] [address] [place] [address] Dr. Juan Zamarripa Covid-19 PCR ([facility])on SARS-CoV-2 (COVID-19) RNA SUNNY+probe Ql (Unsp spec) Not detected Normal NOT DETECTED [facility] Comment on above: Result Comment: When diagnostic testing is negative, the possibility of a false negative should be considered in the context of a patient's recent exposures and the presence of clinical signs and symptoms consistent with SARS-CoV-2. This test is not yet approved or cleared by the [place] FDA. When there are no FDA-approved or cleared tests available, and other criteria are met, FDA can make tests available under an emergency access mechanism called an Emergency Use Authorization (EUA). The EUA for this test is supported by the Financial Recruiter of Health and Human Service's declaration that circumstances exist to justify the emergency use of in vitro diagnostics for the detection and/or diagnosis of the virus that causes COVID-19. This EUA will remain in effect for the duration of the COVID-19 declaration justifying emergency of IVDs, unless it is terminated or revoked by the FDA (after which the test may no longer be used). Performed By: #### L IPA, HSTROPN, TSH, CMP #### [facility] [address] [place] [address] Dr. Juan Zamarripa ER URINE PROFILEon 3 Bilirubin Ql (U) Negative Normal NEGATIVE [facility] Comment on above: Performed By: #### C BC #### [facility] [address] [address] [address] Juan Zamarripa Clarity (U) SL CLOUDY Abnormal CLEAR [facility] Comment on above: Performed By: #### C BC #### [facility] [address] [place] [address] Dr. Juan Zamarripa Color (U) LT. YELLOW Normal YELLOW [facility] Comment on above: Performed By: #### C BC #### [facility] [address] [place] [address] Dr. Juan GABRIEL A micrscopic examination will be performed if indicated. Normal [facility] Comment on above: Performed By: #### C BC #### [facility] [address] [place] [address] Dr. Juan Zamarripa Glucose Ql (U) 250 mg/dl Abnormal NEGATIVE [facility] Comment on above: Performed By: #### C BC #### [facility] [address] [address] [address] Juan Zamarrpia Hemoglobin Ql (U) Negative Normal NEGATIVE [facility] Comment on above: Performed By: #### C BC #### [facility] [address] [place] [address] Dr. Juan Zamarripa Ketones Ql (U) TRACE Abnormal NEGATIVE [facility] Comment on above: Performed By: #### C BC #### [facility] [address] [place] [address] Dr. Juan Zamarripa LEUKOCYTES SMALL Abnormal NEGATIVE [facility] Comment on above: Performed By: #### C BC #### [facility] [address] [place] [address] Dr. Juan Zamarripa Nitrite Ql (U) Negative Normal NEGATIVE [facility] Comment on above: Performed By: #### C BC #### [facility] [address] [place] [address] Dr. Juan Zamarripa pH (U) 5.5 [pH] Normal 5-9 [facility] Comment on above: Performed By: #### C BC #### [facility] [address] [place] [address] Dr. Juan Zamarripa SPEC GRAVITY 1.030 Abnormal 1.005-<=1.0 25 [facility] Comment on above: Performed By: #### C BC #### [facility] [address] [place] [address] Dr. Juan Zamarripa UA PROTEIN Negative Normal NEGATIVE/ TRACE [facility] Comment on above: Performed By: #### C BC #### [facility] [address] [place] [address] Dr. Juan Zamarripa UR MICRO IND INDICATED Normal [facility] Comment on above: Performed By: #### C BC #### [facility] [address] [place] [address] Dr. Juan Zamarripa Urobilinogen Qn (U) 0.2 {Amee'U}/dL Normal 0.2 - 1. 0 [facility] Comment on above: Performed By: #### C BC #### [facility] [address] [place] [address] Dr. Juan Zamarripa INFLUENZA A AND B AGon 04-[facility] Normal [facility] Comment on above: Result Comment: Nega tive for Flu A protein angiten. Infection due to Flu A cannot be ruled out. Flu A angiten in the sample may be below the detection limit of the test. Performed By: #### L IPA, HSTROPN, TSH, CMP #### [facility] [address] [place] [address] Dr. Juan Zamarripa INFLUBNEGH SEE BELOW Normal [facility] Comment on above: Result Comment: Nega tive for Flu B protein antigen. Infection due to Flu B cannot be ruled out. Flu B antigen in the sample may be below the detection limit of the test. Performed By: #### L IPA, HSTROPN, TSH, CMP #### [facility] [address] [place] [address] Dr. Juan Zamarripa INFLUENZA A AG Negative Normal NEGATIVE SEE COMMENT [facility] Comment on above: Performed By: #### L IPA, HSTROPN, TSH, CMP #### [facility] [address] [place] [address] Dr. Juan Zamarripa INFLUENZA B AG Negative Normal NEGATIVE SEE COMMENT [facility] Comment on above: Performed By: #### L IPA, HSTROPN, TSH, CMP #### [facility] [address] [place] [address] Dr. Juan Zamarripa LACTATE/LACTIC ACIDon 2022 Lactate [Moles/Vol] 1.8 mmol/L Normal 0.4-1.9 [facility] Comment on above: Performed By: #### C BC #### [facility] [address] [place] [address] Dr. Juan Zamarripa Lactate [Moles/Vol] 3.1 mmol/L Critically high 0.4-1.9 [facility] Comment on above: Performed By: #### L IPA, HSTROPN, TSH, CMP #### [facility] [address] [place] [address] Dr. Juan Zamarripa LIPASEon 04-12-2022 Lipase [Catalytic activity/Vol] 183.0 U/L Normal 73.0-393.0 [facility] Comment on above: Performed By: #### A 1C #### [facility] [address] [place] [address] Dr. Juan Zamarripa PH VENOUS BLOODon 04-12-2022 PCO2 VENOUS 42.9 mmHg Normal 40.0-52.0 [facility] Comment on above: Performed By: #### C BC #### [facility] [address] [place] [address] Dr. Juan Zamarripa pH VENOUS 7.383 Normal 7.330-7.430 [facility] Comment on above: Performed By: #### C BC #### [facility] [address] [place] [address] Dr. Juan Zamarripa PROF 14(COMP METB)on 023 Albumin [Mass/Vol] 4.3 g/dL Normal 3.4-5.0 [facility] Comment on above: Performed By: #### A 1C #### [facility] [address] [place] [address] Dr. Juan Zamarripa Albumin/Globulin [Mass ratio] 1.0 {ratio} Normal [facility] Comment on above: Performed By: #### A 1C #### [facility] [address] [place] [address] Dr. Juan Zamarripa ALP [Catalytic activity/Vol] 96 U/L Normal 46-116 [facility] Comment on above: Performed By: #### A 1C #### [facility] [address] [place] [address] Dr. Juan Zamarripa ALT [Catalytic activity/Vol] 80 U/L Critically high 14-59 [facility] Comment on above: Performed By: #### A 1C #### [facility] [address] [place] [address] Dr. Juan Zamarripa Anion gap [Moles/Vol] 14.7 mmol/L Normal [facility] Comment on above: Performed By: #### A 1C #### [facility] [address] [place] [address] Dr. Juan Zamarripa AST [Catalytic activity/Vol] 45 U/L Critically high 15-37 [facility] Comment on above: Performed By: #### A 1C #### [facility] [address] [place] [address] Dr. Juan Zamarripa Bilirubin [Mass/Vol] 0.8 mg/dL Normal 0.2-1.0 [facility] Comment on above: Performed By: #### A 1C #### [facility] [address] [place] [address] Dr. Juan Zamarripa Calcium [Mass/Vol] 10.0 mg/dL Normal 8.5-10.1 [facility] Comment on above: Performed By: #### A 1C #### [facility] [address] [place] [address] Dr. Juan Zamarripa Chloride [Moles/Vol] 99 mmol/L Normal 98-107 [facility] Comment on above: Performed By: #### A 1C #### [facility] [address] [place] [address] Dr. Juan Zamarripa CO2 [Moles/Vol] 26.4 mmol/L Normal 21.0-32.0 [facility] Comment on above: Performed By: #### A 1C #### [facility] [address] [address] [address] Juan Zamarripa Creatinine [Mass/Vol] 0.89 mg/dL Normal 0.55-1.02 [facility] Comment on above: Performed By: #### A 1C #### [facility] [address] [address] [address] Juan Zamarripa EGFR-AF TUVALUAN >60 Normal >=60 [facility] Comment on above: Performed By: #### A 1C #### [facility] [address] [address] [address] Juan Zamarripa EGFR-NON AF TUVALUAN >60 Normal >=60 [facility] Comment on above: Performed By: #### A 1C #### [facility] [address] [address] [address] Juan Zamarripa Globulin (S) [Mass/Vol] 4.3 g/dL Normal [facility] Comment on above: Performed By: #### A 1C #### [facility] [address] [address] [address] Juan Zamarripa Glucose [Mass/Vol] 168 mg/dL Critically high 74-106 [facility] Comment on above: Performed By: #### A 1C #### [facility] [address] [place] [address] Dr. Juan Zamarripa Potassium [Moles/Vol] 4.1 mmol/L Normal 3.5-5.1 [facility] Comment on above: Performed By: #### A 1C #### [facility] [address] [address] [address] Juan Zamarripa Protein [Mass/Vol] 8.6 g/dL Critically high 6.4-8.2 [facility] Comment on above: Performed By: #### A 1C #### [facility] [address] [place] [address] Dr. Juan Zamarripa Sodium [Moles/Vol] 136 mmol/L Normal 136-145 [facility] Comment on above: Performed By: #### A 1C #### [facility] [address] [address] [address] Juan Zamarripa Urea nitrogen [Mass/Vol] 18.0 mg/dL Normal 7.0-18.0 [facility] Comment on above: Performed By: #### A 1C #### [facility] [address] [address] [address] uJan Zamarripa Urea nitrogen/Creatinine [Mass ratio] 20.2 mg/mg Normal [facility] Comment on above: Performed By: #### A 1C #### [facility] [address] [address] [address] Juan Zamarripa TROPONIN, HIGH SENSITIVITYon 04-12-2022 HSTROP 4.9 pg/mL Normal 4.0-51.3 [facility] Comment on above: Result Comment: CUT- OFF POINTS HAVE BEEN ESTABLISHED BASED ON THE FOURTH UNIVERSAL DEFINITIONS OF MYOCARDIAL INFARCTION. THE UPPER REFERENCE LIMIT (URL) OF TROPONIN, DEFINED THE 99TH PERCENTILE OF cTnI DISTRIBUTION IN A REFERENCE POPULATION, HAS BEEN CONFIRMED THE DECISION THRESHOLD FOR AL DIAGNOSIS. Performed By: #### A 1C #### [facility] [address] [address] [address] Juan Zamarripa TSHon 04-12-2022 TSH 1.593 uIU/mL Normal 0.358-3.740 [facility] Comment on above: Performed By: #### C BC #### [facility] [address] [place] [address] Dr. Juan Zamarripa URINE MICROSCOPIC ONLYon BACTERIA SMALL Abnormal NONE SEEN [facility] Comment on above: Performed By: #### C BC #### [facility] [address] [address] [address] Juan Zamarripa Bacteria identified Cx Nom (U) INDICATED Normal [facility] Comment on above: Performed By: #### C BC #### [facility] [address] [place], [place] [id number] Dr. Juan Zamarripa CAST NONE SEEN Normal NONE SEEN [facility] Comment on above: Performed By: #### C BC #### [facility] [address] [address] [address] Juan Zamarripa Crystals LM Nom (Urine sed) NONE SEEN Normal NONE SEEN [facility] Comment on above: Performed By: #### C BC #### [facility] [address] [place] [address] Dr. Juan Zamarripa Epithelial cells LM Ql (Urine sed) FEW Abnormal NONE SEEN /RARE [facility] Comment on above: Performed By: #### C BC #### [facility] [address] [address] [address] Juan Zamarripa MUCOUS NONE SEEN Normal NONE SEEN [facility] Comment on above: Performed By: #### C BC #### [facility] [address] [place] [address] Dr. Juan Zamarripa RBC 0-2 Normal 0-2 [facility] Comment on above: Performed By: #### C BC #### [facility] [address] [place] [address] Dr. Juan Zamarripa WBC 2-5 Abnormal NONE SEEN [facility] Comment on above: Performed By: #### C BC #### [facility] [address] [place] [address] Dr. Juan Zamarripa XR CHEST 1 Von 04-12-2022 XR CHEST 1 V EXAMINATION: XR CHES T 1 V HISTORY: COUGH COMPARISON: XR chest 11/26/2021 FINDINGS: LUNGS: Chronic elevated right hemidiaphragm. No acute infiltrates or mass. VASCULATURE: No increased pulmonary vasculature. PLEURA: No pneumothorax, effusion, or pleural thickening. CARDIAC: No cardiomegaly or cardiac silhouette abnormality. MEDIASTINUM: No visible mass or adenopathy. BONES: No fracture or visible bone lesion. OTHER: Negative. IMPRESSION: 1. No acute cardiopulmonary process or significant chronic interstitial changes. Electronically authenticated by: JAZMINE DODSON Date: 2022-04-12 15:31 Normal [facility] CBC AUTO DIFFon 11-26-2021 BASO # 0.1 103/ul Normal 0.0-0.1 [facility] Comment on above: Performed By: #### L IPA, HSTROPN, TSH, CMP #### [facility] [address] [place] [address] Dr. Juan Zamarripa Basophils/100 WBC (Bld) 0.5 % Normal 0.2-2.0 [facility] Comment on above: Performed By: #### L IPA, HSTROPN, TSH, CMP #### [facility] [address] [address] [address] Juan Zamarripa EO # 0.1 103/ul Normal 0.0-0.7 [facility] Comment on above: Performed By: #### L IPA, HSTROPN, TSH, CMP #### [facility] [address] [address] [address] Juan Zamarripa Eosinophils/100 WBC (Bld) 1.1 % Normal 0.9-7.0 [facility] Comment on above: Performed By: #### L IPA, HSTROPN, TSH, CMP #### [facility] [address] [place] [address] Dr. Juan Zamarripa Erythrocyte distribution width (RBC) [Ratio] 12.5 % Normal 11.0-15.0 [facility] Comment on above: Performed By: #### L IPA, HSTROPN, TSH, CMP #### [facility] [address] [place] [address] Dr. Juan Zamarripa Hematocrit (Bld) [Volume fraction] 39.6 % Normal 36.0-48.0 [facility] Comment on above: Performed By: #### L IPA, HSTROPN, TSH, CMP #### [facility] [address] [place] [address] Dr. Juan Zamarripa Hemoglobin (Bld) [Mass/Vol] 13.7 g/dL Normal 12.0-16.0 [facility] Comment on above: Performed By: #### L IPA, HSTROPN, TSH, CMP #### [facility] [address] [place] [address] Dr. Juan Zamarripa IG # 0.04 10e3/ul Critically high 0.00-0.03 [facility] Comment on above: Performed By: #### L IPA, HSTROPN, TSH, CMP #### [facility] [address] [address] [address] Juan Zamarripa IG % 0.4 % Normal 0.0-0.5 [facility] Comment on above: Performed By: #### L IPA, HSTROPN, TSH, CMP #### [facility] [address] [place] [address] Dr. Juan Zamarripa LYMPH # 4.2 103/ul Critically high 1.2-3.8 [facility] Comment on above: Performed By: #### L IPA, HSTROPN, TSH, CMP #### [facility] [address] [place] [address] Dr. Juan Zamarripa Lymphocytes/100 WBC (Bld) 38.8 % Normal 20.5-60.0 [facility] Comment on above: Performed By: #### L IPA, HSTROPN, TSH, CMP #### [facility] [address] [place] [address] Dr. Juan Zamarripa MANUAL DIFF REQ NO Normal [facility] Comment on above: Performed By: #### L IPA, HSTROPN, TSH, CMP #### [facility] [address] [place] [address] Dr. Juan Zamarripa MCH (RBC) [Entitic mass] 32.2 pg Normal 26.7-34.0 [facility] Comment on above: Performed By: #### L IPA, HSTROPN, TSH, CMP #### [facility] [address] [place] [address] Dr. Juan Zamarripa MCHC (RBC) [Mass/Vol] 34.6 g/dL Normal 29.9-35.2 [facility] Comment on above: Performed By: #### L IPA, HSTROPN, TSH, CMP #### [facility] [address] [place] [address] Dr. Juan Zamarripa MCV (RBC) [Entitic vol] 93.0 fL Normal 81.0-99.0 [facility] Comment on above: Performed By: #### L IPA, HSTROPN, TSH, CMP #### [facility] [address] [place] [address] Dr. Juan Zamarripa MONO # 0.4 103/ul Normal 0.3-0.8 [facility] Comment on above: Performed By: #### L IPA, HSTROPN, TSH, CMP #### [facility] [address] [address] [address] Juan Zamarripa Monocytes/100 WBC (Bld) 3.9 % Normal 1.7-12.0 [facility] Comment on above: Performed By: #### L IPA, HSTROPN, TSH, CMP #### [facility] [address] [place] [address] Dr. Juan Zamarripa NEUT # 6.1 103/ul Normal 1.4-6.5 [facility] Comment on above: Performed By: #### L IPA, HSTROPN, TSH, CMP #### [facility] [address] [place] [address] Dr. Juan Zamarripa Neutrophils/100 WBC (Bld) 55.3 % Normal 43.0-75.0 [facility] Comment on above: Performed By: #### L IPA, HSTROPN, TSH, CMP #### [facility] [address] [place] [address] Dr. Juan Zamarripa Platelet mean volume (Bld) [Entitic vol] 9.6 fL Normal 9.5-13.5 [facility] Comment on above: Performed By: #### L IPA, HSTROPN, TSH, CMP #### [facility] [address] [place] [address] Dr. Juan Zamarripa PLT 187 103/ul Normal 150-450 [facility] Comment on above: Performed By: #### L IPA, HSTROPN, TSH, CMP #### [facility] [address] [place] [address] Dr. Juan Zamarripa RBC 4.26 106/ul Normal 4.20-5.40 [facility] Comment on above: Performed By: #### L IPA, HSTROPN, TSH, CMP #### [facility] [address] [place] [address] Dr. Juan Zamarripa WBC 10.9 103/ul Normal 4.0-11.0 [facility] Comment on above: Performed By: #### L IPA, HSTROPN, TSH, CMP #### [facility] [address] [place] [address] Dr. uJan Zamarripa [facility] SARS-CoV-2 (COVID-19) RNA SUNNY+probe Ql (Unsp spec) Not detected Normal NOT DETECTED [facility] Comment on above: Result Comment: When diagnostic testing is negative, the possibility of a false negative should be considered in the context of a patient's recent exposures and the presence of clinical signs and symptoms consistent with SARS-CoV-2. This test is not yet approved or cleared by the [place] FDA. When there are no FDA-approved or cleared tests available, and other criteria are met, FDA can make tests available under an emergency access mechanism called an Emergency Use Authorization (EUA). The EUA for this test is supported by the [place] of Health and Human Service's declaration that circumstances exist to justify the emergency use of in vitro diagnostics for the detection and/or diagnosis of the virus that causes COVID-19. This EUA will remain in effect for the duration of the COVID-19 declaration justifying emergency of IVDs, unless it is terminated or revoked by the FDA (after which the test may no longer be used). Performed By: #### L IPA, HSTROPN, TSH, CMP #### [facility] [address] [place] [address] Dr. Juan Zamarripa LIPASEon 11-26-2021 Lipase [Catalytic activity/Vol] 140.0 U/L Normal 73.0-393.0 [facility] Comment on above: Performed By: #### L IPA, HSTROPN, TSH, CMP #### [facility] [address] [place] [address] Dr. Juan Zamarripa PROF 14(COMP METB)on 022 Albumin [Mass/Vol] 4.2 g/dL Normal 3.4-5.0 [facility] Comment on above: Performed By: #### L IPA, HSTROPN, TSH, CMP #### [facility] [address] [place] [address] Dr. Juan Zamarripa Albumin/Globulin [Mass ratio] 1.1 {ratio} Normal [facility] Comment on above: Performed By: #### L IPA, HSTROPN, TSH, CMP #### [facility] [address] [address] [address] Juan Zamarripa ALP [Catalytic activity/Vol] 93 U/L Normal 46-116 [facility] Comment on above: Performed By: #### L IPA, HSTROPN, TSH, CMP #### [facility] [address] [address] [address] Juan Zamarripa ALT [Catalytic activity/Vol] 74 U/L Critically high 14-59 [facility] Comment on above: Performed By: #### L IPA, HSTROPN, TSH, CMP #### [facility] [address] [address] [address] Juan Zamarripa Anion gap [Moles/Vol] 15.6 mmol/L Normal [facility] Comment on above: Performed By: #### L IPA, HSTROPN, TSH, CMP #### [facility] [address] [address] [address] Juan Zamarripa AST [Catalytic activity/Vol] 46 U/L Critically high 15-37 [facility] Comment on above: Performed By: #### L IPA, HSTROPN, TSH, CMP #### [facility] [address] [address] [address] Juan Zamarripa Bilirubin [Mass/Vol] 0.6 mg/dL Normal 0.2-1.0 [facility] Comment on above: Performed By: #### L IPA, HSTROPN, TSH, CMP #### [facility] [address] [address] [address] Juan Zamarripa Calcium [Mass/Vol] 9.7 mg/dL Normal 8.5-10.1 [facility] Comment on above: Performed By: #### L IPA, HSTROPN, TSH, CMP #### [facility] [address] [address] [address] Juan Zamarripa Chloride [Moles/Vol] 100 mmol/L Normal 98-107 [facility] Comment on above: Performed By: #### L IPA, HSTROPN, TSH, CMP #### [facility] [address] [address] [address] Juan Zamarripa CO2 [Moles/Vol] 25.6 mmol/L Normal 21.0-32.0 [facility] Comment on above: Performed By: #### L IPA, HSTROPN, TSH, CMP #### [facility] [address] [address] [address] Juan Zamarripa Creatinine [Mass/Vol] 0.89 mg/dL Normal 0.55-1.02 [facility] Comment on above: Performed By: #### L IPA, HSTROPN, TSH, CMP #### [facility] [address] [place] [address] Dr. Juan Zamarripa EGFR-AF TUVALUAN >60 Normal >=60 [facility] Comment on above: Performed By: #### L IPA, HSTROPN, TSH, CMP #### [facility] [address] [place] [address] Dr. Juan Zamarripa EGFR-NON AF TUVALUAN >60 Normal >=60 [facility] Comment on above: Performed By: #### L IPA, HSTROPN, TSH, CMP #### [facility] [address] [place] [address] Dr. Juan Zamarripa Globulin (S) [Mass/Vol] 3.7 g/dL Normal [facility] Comment on above: Performed By: #### L IPA, HSTROPN, TSH, CMP #### [facility] [address] [address] [address] Juan Zamarripa Glucose [Mass/Vol] 183 mg/dL Critically high 74-106 [facility] Comment on above: Performed By: #### L IPA, HSTROPN, TSH, CMP #### [facility] [address] [address] [address] Juan Zamarripa Potassium [Moles/Vol] 4.2 mmol/L Normal 3.5-5.1 [facility] Comment on above: Performed By: #### L IPA, HSTROPN, TSH, CMP #### [facility] [address] [address] [address] Juan Zamarripa Protein [Mass/Vol] 7.9 g/dL Normal 6.4-8.2 [facility] Comment on above: Performed By: #### L IPA, HSTROPN, TSH, CMP #### [facility] [address] [address] [address] Juan Zamarripa Sodium [Moles/Vol] 137 mmol/L Normal 136-145 [facility] Comment on above: Performed By: #### L IPA, HSTROPN, TSH, CMP #### [facility] [address] [place] [address] Dr. Juan Zamarripa Urea nitrogen [Mass/Vol] 13.0 mg/dL Normal 7.0-18.0 [facility] Comment on above: Performed By: #### L IPA, HSTROPN, TSH, CMP #### [facility] [address] [address] [address] Juan Zamarripa Urea nitrogen/Creatinine [Mass ratio] 14.6 mg/mg Normal [facility] Comment on above: Performed By: #### L IPA, HSTROPN, TSH, CMP #### [facility] [address] [place] [address] Dr. Juan Zamarripa TROPONIN, HIGH SENSITIVITYon 11-26-2021 HSTROP 4.6 pg/mL Normal 4.0-51.3 [facility] Comment on above: Result Comment: CUT- OFF POINTS HAVE BEEN ESTABLISHED BASED ON THE FOURTH UNIVERSAL DEFINITIONS OF MYOCARDIAL INFARCTION. THE UPPER REFERENCE LIMIT (URL) OF TROPONIN, DEFINED THE 99TH PERCENTILE OF cTnI DISTRIBUTION IN A REFERENCE POPULATION, HAS BEEN CONFIRMED THE DECISION THRESHOLD FOR AL DIAGNOSIS. Performed By: #### L IPA, HSTROPN, TSH, CMP #### [facility] [address] [place] [address] Dr. Juan Zamarripa TSHon 11-26-2021 TSH 2.343 uIU/mL Normal 0.358-3.740 [facility] Comment on above: Performed By: #### L IPA, HSTROPN, TSH, CMP #### [facility] [address] [place], [place] [address] Dr. Juan Zamarripa XR CHEST 1 Von 11-26-2021 XR CHEST 1 V EXAM: XR CHEST 1 V COMPARISON: None available. CLINICAL INDICATION: Shortness of breath. FINDINGS: The cardiomediastinal silhouette is within normal limits. Chronic elevation of the right hemidiaphragm. No focal consolidation. No pleural effusion. No pneumothorax. No evidence of acute osseous abnormality. No free air under the diaphragm. Visualized upper abdomen grossly unremarkable. IMPRESSION: No radiographic evidence of acute cardiopulmonary abnormality. Electronically authenticated by: VERA ARANA Date: 2021-11-26 21:03 Normal [facility] Covid-19 PCR ([facility])on SARS-CoV-2 (COVID-19) RNA SUNNY+probe Ql (Unsp spec) Not detected Normal NOT DETECTED [facility] Comment on above: Result Comment: This test is not yet approved or cleared by the [place] FDA. When there are no FDA-approved or cleared tests available, and other criteria are met, FDA can make tests available under an emergency access mechanism called an Emergency Use Authorization (EUA). The EUA for this test is supported by the Financial Recruiter of Health and Human Service's (HHS's) declaration that circumstances exist to justify the emergency use of in vitro diagnostics for the detection and/or diagnosis of the virus that causes COVID-19. This EUA will remain in effect (meaning this test can be used) for the duration of the COVID-19 declaration justifying emergency of IVDs, unless it is terminated or revoked by FDA (after which the test may no longer be used). When diagnostic testing is negative, the possibility of a false negative should be considered in the context of a patient's recent exposures and the presence of clinical signs and symptoms consistent with SARS-CoV-2. Performed By: #### C BC #### [facility] [address] [address] [address] Juan Zamarripa CBC AUTO DIFFon 08-17-2021 BASO # 0.1 103/ul Normal 0.0-0.1 [facility] Comment on above: Performed By: #### L IPA, HSTROPN, TSH, CMP #### [facility] [address] [place] [address] Dr. Juan Zamarripa Basophils/100 WBC (Bld) 0.7 % Normal 0.2-2.0 [facility] Comment on above: Performed By: #### L IPA, HSTROPN, TSH, CMP #### [facility] [address] [place] [address] Dr. Juan Zamarripa EO # 0.1 103/ul Normal 0.0-0.7 [facility] Comment on above: Performed By: #### L IPA, HSTROPN, TSH, CMP #### [facility] [address] [place] [address] Dr. Juan Zamarripa Eosinophils/100 WBC (Bld) 1.6 % Normal 0.9-7.0 [facility] Comment on above: Performed By: #### L IPA, HSTROPN, TSH, CMP #### [facility] [address] [place] [address] Dr. Juan Zamarripa Erythrocyte distribution width (RBC) [Ratio] 12.6 % Normal 11.0-15.0 [facility] Comment on above: Performed By: #### L IPA, HSTROPN, TSH, CMP #### [facility] [address] [place] [address] Dr. Juan Zamarripa Hematocrit (Bld) [Volume fraction] 39.8 % Normal 36.0-48.0 [facility] Comment on above: Performed By: #### L IPA, HSTROPN, TSH, CMP #### [facility] [address] [place] [address] Dr. Juan Zamarripa Hemoglobin (Bld) [Mass/Vol] 13.7 g/dL Normal 12.0-16.0 [facility] Comment on above: Performed By: #### L IPA, HSTROPN, TSH, CMP #### [facility] [address] [place] [address] Dr. Juan Zamarripa IG # 0.02 10e3/ul Normal 0.00-0.03 [facility] Comment on above: Performed By: #### L IPA, HSTROPN, TSH, CMP #### [facility] [address] [place] [address] Dr. Juan Zamarripa IG % 0.3 % Normal 0.0-0.5 [facility] Comment on above: Performed By: #### L IPA, HSTROPN, TSH, CMP #### [facility] [address] [place] [address] Dr. Juan Zamarripa LYMPH # 3.1 103/ul Normal 1.2-3.8 [facility] Comment on above: Performed By: #### L IPA, HSTROPN, TSH, CMP #### [facility] [address] [place] [address] Dr. Juan Zamarripa Lymphocytes/100 WBC (Bld) 40.5 % Normal 20.5-60.0 [facility] Comment on above: Performed By: #### L IPA, HSTROPN, TSH, CMP #### [facility] [address] [place] [address] Dr. Juan Zamarripa MANUAL DIFF REQ NO Normal [facility] Comment on above: Performed By: #### L IPA, HSTROPN, TSH, CMP #### [facility] [address] [place] [address] Dr. Juan Zamarripa MCH (RBC) [Entitic mass] 32.3 pg Normal 26.7-34.0 [facility] Comment on above: Performed By: #### L IPA, HSTROPN, TSH, CMP #### [facility] [address] [place] [address] Dr. Juan Zamarripa MCHC (RBC) [Mass/Vol] 34.4 g/dL Normal 29.9-35.2 [facility] Comment on above: Performed By: #### L IPA, HSTROPN, TSH, CMP #### [facility] [address] [place] [address] Dr. Juan Zamarripa MCV (RBC) [Entitic vol] 93.9 fL Normal 81.0-99.0 [facility] Comment on above: Performed By: #### L IPA, HSTROPN, TSH, CMP #### [facility] [address] [place] [address] Dr. Juan Zamarripa MONO # 0.3 103/ul Normal 0.3-0.8 [facility] Comment on above: Performed By: #### L IPA, HSTROPN, TSH, CMP #### [facility] [address] [place] [address] Dr. Juan Zamarripa Monocytes/100 WBC (Bld) 4.2 % Normal 1.7-12.0 [facility] Comment on above: Performed By: #### L IPA, HSTROPN, TSH, CMP #### [facility] [address] [place] [address] Dr. Juan Zamarripa NEUT # 4.0 103/ul Normal 1.4-6.5 [facility] Comment on above: Performed By: #### L IPA, HSTROPN, TSH, CMP #### [facility] [address] [place] [address] Dr. Juan Zamarripa Neutrophils/100 WBC (Bld) 52.7 % Normal 43.0-75.0 [facility] Comment on above: Performed By: #### L IPA, HSTROPN, TSH, CMP #### [facility] [address] [place] [address] Dr. Juan Zamarripa Platelet mean volume (Bld) [Entitic vol] 9.7 fL Normal 9.5-13.5 [facility] Comment on above: Performed By: #### L IPA, HSTROPN, TSH, CMP #### [facility] [address] [place] [address] Dr. Juan Zamarripa PLT 164 103/ul Normal 150-450 [facility] Comment on above: Performed By: #### L IPA, HSTROPN, TSH, CMP #### [facility] [address] [place] [address] Dr. Juan Zamarripa RBC 4.24 106/ul Normal 4.20-5.40 [facility] Comment on above: Performed By: #### L IPA, HSTROPN, TSH, CMP #### [facility] [address] [place] [address] Dr. Juan Zamarripa WBC 7.6 103/ul Normal 4.0-11.0 [facility] Comment on above: Performed By: #### L IPA, HSTROPN, TSH, CMP #### [facility] [address] [address] [address] Juan Zamarripa FREE T4on 08-17-2021 Free T4 [Mass/Vol] 1.00 ng/dL Normal 0.76-1.46 [facility] Comment on above: Performed By: #### C BC #### [facility] [address] [address] [address] Juan Zamarripa GLYCOHEMOGLOBIN A1Con 2021 ADA RECOMMENDATION SEE BELOW Normal [facility] Comment on above: Result Comment: ADA RECOMMENDED LIMIT 4.0 - 6.0 ADA THERAPEUTIC TARGET < 7.0 ACTION SUGGESTED > 7.0 Performed By: #### A 1C #### [facility] [address] [place] [address] Dr. Juan Zamarripa Glucose [Mass/Vol] 140 mg/dL Normal [facility] Comment on above: Performed By: #### A 1C #### [facility] [address] [place] [address] Dr. Juan Zamarripa HbA1c (Bld) [Mass fraction] 6.5 % Critically high 4.5-6.2 [facility] Comment on above: Performed By: #### A 1C #### [facility] [address] [place] [address] Dr. Juan Zamarripa LIPID PROFILEon 08-17-2021 CHOL-HDL RATIO NORM SEE BELOW Normal [facility] Comment on above: Result Comment: 3.3 - 4.4 LOW RISK 4.4 - 7.1 AVERAGE RISK 7.1 - 11.0 MODERATE RISK >11.0 HIGH RISK Performed By: #### L IPA, HSTROPN, TSH, CMP #### [facility] [address] [place] [address] Dr. Juan Zamarripa Cholesterol [Mass/Vol] 115 mg/dL Normal <=200 [facility] Comment on above: Performed By: #### L IPA, HSTROPN, TSH, CMP #### [facility] [address] [address] [address] Juan Zamarripa Cholesterol in HDL [Mass/Vol] 40 mg/dL Normal 40-60 [facility] Comment on above: Performed By: #### L IPA, HSTROPN, TSH, CMP #### [facility] [address] [address] [address] Juan Zamarripa Cholesterol in LDL [Mass/Vol] 53.6 mg/dL Normal [facility] Comment on above: Performed By: #### L IPA, HSTROPN, TSH, CMP #### [facility] [address] [address] [address] Juan Zamarripa Cholesterol.total/Cho lesterol in HDL [Mass ratio] 2.9 {ratio} Normal [facility] Comment on above: Performed By: #### L IPA, HSTROPN, TSH, CMP #### [facility] [address] [address] [address] Juan Zamarripa HDL NORMAL > or = 60 mg/dl - LO W CARDIOVASCULAR RISK <40 mg/dl - HIGH CARDIOVASCULAR RISK Normal [facility] Comment on above: Performed By: #### L IPA, HSTROPN, TSH, CMP #### [facility] [address] [address] [address] Juan Zamarripa LDL CALC NORMAL SEE BELOW Normal [facility] Comment on above: Result Comment: <100 mg/dl OPTIMAL 100 - 129 mg/dl NEAR OR ABOVE OPTIMAL 130 - 159 mg/dl BORDERLINE HIGH 160 - 189 mg/dl HIGH >190 mg/dl VERY HIGH Performed By: #### L IPA, HSTROPN, TSH, CMP #### [facility] [address] [address] [address] Juan Zamarripa Triglyceride [Mass/Vol] 107 mg/dL Normal <=150 [facility] Comment on above: Performed By: #### L IPA, HSTROPN, TSH, CMP #### [facility] [address] [address] [address] Juan Zamarripa VLDL CALC 21.4 mg/dL Normal [facility] Comment on above: Performed By: #### L IPA, HSTROPN, TSH, CMP #### [facility] [address] [place] [address] Dr. Juan Zamarripa PROF 14(COMP METB)on 022 Albumin [Mass/Vol] 4.1 g/dL Normal 3.4-5.0 [facility] Comment on above: Performed By: #### L IPA, HSTROPN, TSH, CMP #### [facility] [address] [place] [address] Dr. Juan Zamarripa Albumin/Globulin [Mass ratio] 1.1 {ratio} Normal [facility] Comment on above: Performed By: #### L IPA, HSTROPN, TSH, CMP #### [facility] [address] [place] [address] Dr. Juan Zamarripa ALP [Catalytic activity/Vol] 94 U/L Normal 46-116 [facility] Comment on above: Performed By: #### L IPA, HSTROPN, TSH, CMP #### [facility] [address] [place] [address] Dr. Juan Zamarripa ALT [Catalytic activity/Vol] 61 U/L Critically high 14-59 [facility] Comment on above: Performed By: #### L IPA, HSTROPN, TSH, CMP #### [facility] [address] [place] [address] Dr. Juan Zamarripa Anion gap [Moles/Vol] 16.5 mmol/L Normal [facility] Comment on above: Performed By: #### L IPA, HSTROPN, TSH, CMP #### [facility] [address] [place] [address] Dr. Juan Zamarripa AST [Catalytic activity/Vol] 24 U/L Normal 15-37 [facility] Comment on above: Performed By: #### L IPA, HSTROPN, TSH, CMP #### [facility] [address] [place] [address] Dr. Juan Zamarripa Bilirubin [Mass/Vol] 0.7 mg/dL Normal 0.2-1.0 [facility] Comment on above: Performed By: #### L IPA, HSTROPN, TSH, CMP #### [facility] [address] [address] [address] Juan Zamarripa Calcium [Mass/Vol] 9.1 mg/dL Normal 8.5-10.1 [facility] Comment on above: Performed By: #### L IPA, HSTROPN, TSH, CMP #### [facility] [address] [place] [address] Dr. Juan Zamarripa Chloride [Moles/Vol] 103 mmol/L Normal 98-107 [facility] Comment on above: Performed By: #### L IPA, HSTROPN, TSH, CMP #### [facility] [address] [address] [address] Juan Zamarripa CO2 [Moles/Vol] 25.4 mmol/L Normal 21.0-32.0 [facility] Comment on above: Performed By: #### L IPA, HSTROPN, TSH, CMP #### [facility] [address] [place] [address] Dr. Juan Zamarripa Creatinine [Mass/Vol] 0.87 mg/dL Normal 0.55-1.02 [facility] Comment on above: Performed By: #### L IPA, HSTROPN, TSH, CMP #### [facility] [address] [place] [address] Dr. Juan Zamarripa EGFR-AF TUVALUAN >60 Normal >=60 [facility] Comment on above: Performed By: #### L IPA, HSTROPN, TSH, CMP #### [facility] [address] [place] [address] Dr. Juan Zamarripa EGFR-NON AF TUVALUAN >60 Normal >=60 [facility] Comment on above: Performed By: #### L IPA, HSTROPN, TSH, CMP #### [facility] [address] [place] [address] Dr. Juan Zamarripa Globulin (S) [Mass/Vol] 3.9 g/dL Normal [facility] Comment on above: Performed By: #### L IPA, HSTROPN, TSH, CMP #### [facility] [address] [place] [address] Dr. Juan Zamarripa Glucose [Mass/Vol] 157 mg/dL Critically high 74-106 [facility] Comment on above: Performed By: #### L IPA, HSTROPN, TSH, CMP #### [facility] [address] [place] [address] Dr. Juan Zamarripa Potassium [Moles/Vol] 4.4 mmol/L Normal 3.5-5.1 [facility] Comment on above: Performed By: #### L IPA, HSTROPN, TSH, CMP #### [facility] [address] [place] [address] Dr. Juan Zamarripa Protein [Mass/Vol] 8.0 g/dL Normal 6.4-8.2 [facility] Comment on above: Performed By: #### L IPA, HSTROPN, TSH, CMP #### [facility] [address] [place] [address] Dr. Juan Zamarripa Sodium [Moles/Vol] 141 mmol/L Normal 136-145 [facility] Comment on above: Performed By: #### L IPA, HSTROPN, TSH, CMP #### [facility] [address] [place] [address] Dr. Juan Zamarripa Urea nitrogen [Mass/Vol] 21.0 mg/dL Critically high 7.0-18.0 [facility] Comment on above: Performed By: #### L IPA, HSTROPN, TSH, CMP #### [facility] [address] [place] [address] Dr. Juan Zamarripa Urea nitrogen/Creatinine [Mass ratio] 24.1 mg/mg Normal [facility] Comment on above: Performed By: #### L IPA, HSTROPN, TSH, CMP #### [facility] [address] [place] [address] Dr. Juan Zamarripa TSHon 08-17-2021 TSH 1.503 uIU/mL Normal 0.358-3.740 [facility] Comment on above: Performed By: #### L IPA, HSTROPN, TSH, CMP #### [facility] [address] [place] [address] Dr. Juan Zamarripa TSH RANGE SEE BELOW Normal [facility] Comment on above: Result Comment: <0.3 4 UIU/ml HYPERTHYROID 0.34-5.60 UIU/ml EUTHYROID >5.60 UIU/ml HYPOTHYROID Performed By: #### L IPA, HSTROPN, TSH, CMP #### [facility] [address] [address] [address] Juan Weinstein 08-11-2021 CNPN Telephone (NCCAP) IVELISSE GEE ([id number]) 1950 F Date Time Provider Department 08/11/21 MEHRDAD AGUILAR During your visit today, we recorded the following information about you: Marta Cuellar [facility] 08/11/2021 12:14 PM Signed Called patient to reschedule an appointment per patient she no longer see Dr. Augilar and that she had cancelled appointments last year confirmed with patient that she would like to cancel and did not need to reschedule. Allergies As of Date: 08/11/2021 Noted Allergy Reaction SULFA (SULFONAMIDE ANTIBIOTICS) 09/05/2016 10 - Anaphylaxis LATEX, NATURAL RUBBER 09/06/2016 16 - Unknown Comments: Only bandaids Date Reviewed: 09/30/2020 Reviewed by: Julianne Beck - Fully Assessed Reason for Visit: Appointment [186] Prescriptions as of 08/11/2021 - metFORMIN ER (GLUCOPHAGE XR) 500 mg 24 hr tablet metformin ER 500 mg tablet,extended release 24 hr TAKE 2 TABLETS BY MOUTH TWICE A DAY - traMADol (ULTRAM) 50 mg tablet - traZODone (DESYREL) 50 mg tablet trazodone 50 mg tablet TAKE 1 TABLET BY MOUTH EVERY DAY - levothyroxine (SYNTHROID) 50 mcg tablet levothyroxine 50 mcg tablet TAKE 1 TABLET BY MOUTH DAILY - citalopram (CELEXA) 40 mg tablet citalopram 40 mg tablet TAKE 1 TABLET BY MOUTH DAILY - benazepril (LOTENSIN) 20 mg tablet benazepril 20 mg tablet TAKE 1 TABLET BY MOUTH EVERY DAY - SITagliptin (JANUVIA) 100 mg tablet Januvia 100 mg tablet One tab p.o. daily Problem List As Of Date: 08/11/2021 (None) Encounter Status:Closed by MARTA GARCES on 08/11/21 Normal [facility] [id number] QUANTITA TIONon 10-13-2020 [id number] (AAT) PHENOTYPE SEE NOTE Normal [facility] Comment on above: Order Comment: FASTI NG:YES FASTING: YES Result Comment: THIS PATIENT'S CXUHV-0-WENRUFVMIDY PHENOTYPE IS PI*MM. 90% of normal individuals have the MM phenotype, with normal quantitative AAT levels. Many phenotypic patterns have been described, including deficiency states with F, S, Z, or other alleles. As a general estimation, compared to M allele of 100% of normal H-9-Qcwuggbwggd protein, the S allele produces approximately 60% and the Z allele 20%. For example, an MS phenotype would have about 80% of normal N-5-Nkxucrzaqsi protein level, a 50% contribution from the M allele and 30% from the S allele. A ZZ phenotype would have about 20% of normal levels, a 10% contribution from each Z gene. The F allele has normal Q-3-Gntesjbnzsl levels, but the kinetics of elastase inhibition is not as efficient as an M allele product; F alleles should be considered functionally mildly deficient. Other variants are identifiable by phenotypic analysis. These include CM, DP, EM, GM, IS, LM, M1M2, M3M3, MP, MT, XX, MY, and M1N. I, P, T and null alleles are considered deleterious. C, D, E, G, L, M1, M2, M3, X and Y alleles are generally considered normal variants. The MZ-Warner phenotype is a normal variant; care should be taken to avoid confusion with the deficient MZ phenotype. Performed By: #### 2 63, 457, 28061, 7573, 508, 498, 326, 8472, 496, 249, 30228, 259 #### [facility] [place] [address] [place] [address] Basket Sorter: Kush Hines MD #### [id number] #### [facility], [address] [id number] Basket Sorter: Susan Sheikh MD,PhD,JAY #### [id number] #### [facility]/[id number] [facility] [place], [place] Basket Sorter: Parrish Gloria M.D.,PhD [id number] QN 170 mg/dL Normal 83-199 [facility] Comment on above: Order Comment: FASTI NG:YES FASTING: YES Performed By: #### 2 63, 457, 79555, 7573, 508, 498, 326, 8472, 496, 249, 84344, 259 #### [facility] [address] [place] [address] Basket Sorter: Kush Hines MD #### [id number] #### [facility], [address] [place] [address] Basket Sorter: Susan Sheikh MD,PhD,JAY #### [id number] #### [facility] [address] [facility] [address] [place] Basket Sorter: Parrish Gloria M.D.,PhD TL SCREEN, IFA, W/REFL TITE R AND PATTERNon 10-13-2020 TL SCREEN, IFA Negative Normal NEGATIVE [facility] Comment on above: Result Comment: TL IFA is a first line screen for detecting the presence of up to approximately 150 autoantibodies in various autoimmune diseases. A negative TL IFA result suggests an TL-associated autoimmune disease is not present at this time, but is not definitive. If there is high clinical suspicion for Sjogren's syndrome, testing for anti-SS-A/Ro antibody should be considered. Anti-Arielle-1 antibody should be considered for clinically suspected inflammatory myopathies. AC-0: Negative International Consensus on TL Patterns (https://doi.org/10.1515/yqoi-9986-6068) For additional information, please refer to http://education.Digitalsmiths/faq/LVQ358 (This link is being provided for informational/ educational purposes only.) Performed By: #### 2 63, 457, 72588, 7573, 508, 498, 326, 8472, 496, 249, 57559, 259 #### [facility] [address], [address] [place] [address] Basket Sorter: Kush Hines MD #### [id number] #### [facility], [address] [place] [address] Basket Sorter: Susan Sheikh MD,PhD,JAY #### [id number], [id number] #### [facility]/[place] [id number] [facility] [place], [place] Basket Sorter: Parrish Gloria M.D.,PhD CELIAC DISEASE COMPREHENSIVE PANEL 10-13-2020 IMMUNOGLOBULIN A 185 mg/dL Normal 70-320 [facility] Comment on above: Performed By: #### 2 63, 457, 82384, 7573, 508, 498, 326, 8472, 496, 249, 82760, 259 #### [facility] [address], [address] [place] [address] Basket Sorter: Kush Hines MD #### [id number] #### [facility], [address] [place], [place] Basket Sorter: Susan Sheikh MD,PhD,JAY #### [id number], [id number] #### [facility] [id number] [facility] [place], [place] Basket Sorter: Parrish Gloria M.D.,PhD INTERPRETATION see note Normal [facility] Comment on above: Result Comment: No s erological evidence of celiac disease. tTG IgA may normalize in individuals with celiac disease who maintain a gluten-free diet. Consider HLA DQ2 and DQ8 testing to rule out celiac disease. Celiac disease is extremely rare in the absence of DQ2 or DQ8. Performed By: #### 2 63, 457, 43151, 7573, 508, 498, 326, 8472, 496, 249, 07931, 259 #### [facility] [place] [address] [facility], [address] [place] [address] Basket Sorter: Kush Hines MD #### [id number] #### [facility], [address] [place] [address] Basket Sorter: Susan Sheikh MD,PhD,JAY #### [phone], [phone] #### [facility]/[place] [id number] [facility] [address] [place] Basket Sorter: Parrish Gloria M.D.,PhD TISSUE TRANSGLUTAMINASE AB, IGA 2 U/mL Normal <4 [facility] Comment on above: Result Comment: Value Interpretation <4 U/mL: No Antibody Detected >or=4 U/mL: Antibody Detected Performed By: #### 2 63, 457, 91690, 7573, 508, 498, 326, 8472, 496, 249, 95965, 259 #### [facility] [address], [address] [place] [address] Basket Sorter: Kush Hines MD #### [id number] #### [facility], [address] [place] [address] Basket Sorter: Susan Sheikh MD,PhD,JAY #### [id number], [phone] #### [facility]/[place] [address] [facility] [address] [place] Basket Sorter: Parrish Gloria M.D.,PhD CERULOPLASMINon 10-13-2020 CERULOPLASMIN 31 mg/dL Normal 18-53 [facility] Comment on above: Performed By: #### 2 63, 457, 66164, 7573, 508, 498, 326, 8472, 496, 249, 82664, 259 #### [facility] [address] [facility], [address] [place] [address] Basket Sorter: Kush Hines MD #### [id number] #### [facility], [address] [place] [address] Basket Sorter: Susan Sheikh MD,PhD,JAY #### [phone], [phone] #### [facility]/[place] [address] [facility] [place], [place] Basket Sorter: Parrish Gloria M.D.,PhD FERRITINon 10-13-2020 Ferritin [Mass/Vol] 70 ng/mL Normal 16-288 [facility] Comment on above: Performed By: #### 2 63, 457, 76100, 7573, 508, 498, 326, 8472, 496, 249, 61534, 259 #### [facility] [address], [address] [place] [address] Basket Sorter: Kush Hines MD #### [id number] #### [facility], [address] [place] [address] Basket Sorter: Susan Sheikh MD,PhD,JAY #### [phone], [phone] #### [facility] [place] Basket Sorter: Parrish Gloria M.D.,PhD HEMOGLOBIN A1con 10-13-2020 HEMOGLOBIN A1c 6.9 % of total Hgb High <5.7 [facility] Comment on above: Result Comment: For someone without known diabetes, a hemoglobin A1c value of 6.5% or greater indicates that they may have diabetes and this should be confirmed with a follow-up test. For someone with known diabetes, a value <7% indicates that their diabetes is well controlled and a value greater than or equal to 7% indicates suboptimal control. A1c targets should be individualized based on duration of diabetes, age, comorbid conditions, and other considerations. Currently, no consensus exists regarding use of hemoglobin A1c for diagnosis of diabetes for children. Performed By: #### 2 63, 457, 86154, 7573, 508, 498, 326, 8472, 496, 249, 97565, 259 #### [facility] [address], [address] [place] [address] Basket Sorter: Kush Hines MD #### [id number] #### [facility], [address] [place] Basket Sorter: Susan Sheikh MD,PhD,JAY #### [phone], [phone] #### [facility] [address] [facility] [place], [place] Basket Sorter: Parrish Gloria M.D.,PhD HEPATITIS A AB, TOTALon 07-0 HEPATITIS A AB, TOTAL Reactive Abnormal NON-RE ACTIV E [facility] Comment on above: Result Comment: For additional information, please refer to http://education.[employer]/faq/BZA557 (This link is being provided for informational/ educational purposes only.) Performed By: #### 2 63, 457, 80643, 7573, 508, 498, 326, 8472, 496, 249, 18471, 259 #### [facility] [address], [address] [place] [address] Basket Sorter: Kush Hines MD #### [id number] #### [facility], [address] [place] Basket Sorter: Susan Sheikh MD,PhD,JAY #### [phone], [phone] #### [facility] [address] [facility] [address] [place] Basket Sorter: Parrish Gloria M.D.,PhD HEPATITIS B CORE AB TOTAL W/ REFL IGMon 10-13-2020 HEPATITIS B CORE AB TOTAL Non-Reactive Normal NON-REACTIV E [facility] Comment on above: Performed By: #### 2 63, 457, 40468, 7573, 508, 498, 326, 8472, 496, 249, 19468, 259 #### [facility] [address], [address] [place] [address] Basket Sorter: Kush Hines MD #### [id number] #### [facility], [address] [place] [address] Basket Sorter: Susan Sheikh MD,PhD,JAY #### [phone], 53785 #### [facility]/[address] [place], [place] Basket Sorter: Parrish Gloria M.D.,PhD HEPATITIS B SURFACE ANTIBODY QLon 10-13-2020 HEPATITIS B SURFACE ANTIBODY QL Non-Reactive Normal NON-REACTIV E [facility] Comment on above: Performed By: #### 2 63, 457, 90757, 7573, 508, 498, 326, 8472, 496, 249, 62358, 259 #### [facility] [address], [address] [place] [address] Basket Sorter: Kush Hines MD #### [id number] #### [facility], [address] [place] Basket Sorter: Susan Sheikh MD,PhD,JAY #### [phone], 44538 #### [facility]/[place] [address] [facility] [place] Basket Sorter: Parrish Gloria M.D.,PhD HEPATITIS B SURFACE ANTIGEN W/REFL CONFIRMon 10-13-2020 HEPATITIS B SURFACE ANTIGEN Non-Reactive Normal NON-REACTIV E [facility] Comment on above: Performed By: #### 2 63, 457, 48475, 7573, 508, 498, 326, 8472, 496, 249, 51288, 259 #### [facility] [place] [address] [facility], [address] [place] [address] Basket Sorter: Kush Hines MD #### [id number] #### [facility], [address] [place] [address] Basket Sorter: Susan Sheikh MD,PhD,JAY #### [phone], 33537 #### [facility]/[place] [address] [facility] [place] Basket Sorter: Parrish Gloria M.D.,PhD HEPATITIS C AB W/REFL TO HCV RNA, QN, PCRon 10-13-2020 HEPATITIS C ANTIBODY Non-Reactive Normal NON-CHARMAINE CTIV E [facility] Comment on above: Performed By: #### 2 63, 457, 43469, 7573, 508, 498, 326, 8472, 496, 249, 15236, 259 #### [facility] [address], [address] [place] [address] Basket Sorter: Kush Hines MD #### [id number] #### [facility], [address] [place] [address] Basket Sorter: Susan Sheikh MD,PhD,JAY #### [phone], 11277 #### [facility] [address] [facility] [address] [place] Basket Sorter: Parrish Gloria M.D.,PhD INDEX 0.02 Normal <1.00 [facility] Comment on above: Result Comment: HCV antibody was non-reactive. There is no laboratory evidence of HCV infection. In most cases, no further action is required. However, if recent HCV exposure is suspected, a test for HCV RNA (test code 69540) is suggested. For additional information please refer to http://education.[employer]/faq/EMK15m2 (This link is being provided for informational/ educational purposes only.) Performed By: #### 2 63, 457, 85831, 7573, 508, 498, 326, 8472, 496, 249, 50439, 259 #### [facility] [address], [address] [place] [address] Basket Sorter: Kush Hines MD #### [id number] #### [facility], [address] [place] [address] Basket Sorter: Susan Sheikh MD,PhD,JAY #### 65511, 91787 #### [facility]/[place] [address] [facility] [place] Basket Sorter: Parrish Gloria M.D.,PhD IRON AND TOTAL IRON BINDING CAPACITYon 10-13-2020 % SATURATION 19 % (calc) Normal 16-45 [facility] Comment on above: Performed By: #### 2 63, 457, 35732, 7573, 508, 498, 326, 8472, 496, 249, 27045, 259 #### [facility] [address], [address] [place] [address] Basket Sorter: Kush Hines MD #### [id number] #### [facility], [address] [place] [address] Basket Sorter: Susan Sheikh MD,PhD,JAY #### [phone], 21408 #### [facility] [address] [facility] [place] Basket Sorter: Parrish Gloria M.D.,PhD IRON BINDING CAPACITY 372 mcg/dL (calc) Normal 250-450 [facility] Comment on above: Performed By: #### 2 63, 457, 61777, 7573, 508, 498, 326, 8472, 496, 249, 58105, 259 #### [facility] [address] , [address] [place], [place] [address] Basket Sorter: Kush Hines MD #### [id number] #### [facility], [address] [place] [address] Basket Sorter: Susan Sheikh MD,PhD,JAY #### [phone], 41004 #### [facility]/[place] [address] [facility] [place] Basket Sorter: Parrish Gloria M.D.,PhD IRON, TOTAL 70 mcg/dL Normal 45-160 [facility] Comment on above: Performed By: #### 2 63, 457, 82990, 7573, 508, 498, 326, 8472, 496, 249, 52444, 259 #### [facility] [address], [address] [place] [address] Basket Sorter: Kush Hines MD #### [id number] #### [facility], [address] [place] [address] Basket Sorter: Susan Sheikh MD,PhD,JAY #### 44063, 38782 #### [facility] [address] [facility] [place] Basket Sorter: Parrish Gloria M.D.,PhD LIVER KIDNEY MICROSOME (LKM- 1) AB (IGG)on 10-13-2020 LIVER KIDNEY MICROSOMAL (LKM-1) AB (IGG) <=20.0 Normal <=20.0 [facility] Comment on above: Result Comment: Reference Range: <=20.0 Negative 20.1-24.9 Equivocal >=25.0 Positive Anti-liver/kidney microsomal antibodies (Anti-LKM-1) were previously tested by indirect immunofluorescence (IF) using rodent liver/kidney substrate. Identification of a specific antibody target as cytochrome P450 IID6 has led to the current recombinant based LEONID. Antibodies to this cytochrome are present in approximately 70% of patients with autoimmune hepatitis type 2. This antibody is also present in approximately 10% of patients with hepatitis C infection. Performed By: #### 2 63, 457, 30112, 7573, 508, 498, 326, 8472, 496, 249, 46792, 259 #### [facility] [address], [address] [place] [address] Basket Sorter: Kush Hines MD #### [id number] #### [facility], [address] [place] [address] Basket Sorter: Susan Sheikh MD,PhD,JAY #### 64031, 07295 #### [facility]/[place] [address] [facility] [place] Basket Sorter: Parrish Gloria M.D.,PhD MITOCHONDRIAL ANTIBODY W/REF L TITERon 10-13-2020 MITOCHONDRIAL AB SCREEN Negative Normal NEGATIVE [facility] Comment on above: Performed By: #### 2 63, 457, 04160, 7573, 508, 498, 326, 8472, 496, 249, 98174, 259 #### [facility] [place] [address] Basket Sorter: Kush Hines MD #### [id number] #### [facility], [address] [place] [address] Basket Sorter: Susan Sheikh MD,PhD,JAY #### 56926, 21061 #### [facility] [address] [facility] [address] [place] Basket Sorter: Parrish Gloria M.D.,PhD SMOOTH MUSCLE AB W/REFL TITE Butch 10-13-2020 SMOOTH MUSCLE AB SCREEN Negative Normal NEGATIVE [facility] Comment on above: Performed By: #### 2 63, 457, 14626, 7573, 508, 498, 326, 8472, 496, 249, 57029, 259 #### [facility] [address], [address] [place] [address] Basket Sorter: Kush Hines MD #### [id number] #### [facility], [address] [place] [address] Basket Sorter: Susan Sheikh MD,PhD,JAY #### 26820, 78633 #### [facility]/[address] [place] Basket Sorter: Parrish Gloria M.D.,PhD TSH W/REFLEX TO FT4on 2020 TSH W/REFLEX TO FT4 3.10 mIU/L Normal 0.40-4.50 [facility] Comment on above: Performed By: #### 2 63, 457, 87339, 7573, 508, 498, 326, 8472, 496, 249, 79561, 259 #### [facility] [address], [address] [place] [address] Basket Sorter: Kush Hines MD #### [id number] #### [facility] [address] [place] [address] Basket Sorter: Susan Sheikh MD,PhD,JAY #### 04998, 46760 #### [facility]/[place] [address] [facility] [place] Basket Sorter: Parrish Gloria M.D.,PhD CNOVSPon 09-30-2020 [facility] Visit (SP) Office ([facility]) IVELISSE GEE ([id number]) 1950 F Date Time Provider Department 09/30/20 1:30 PM MEHRDAD AGUILAR During your visit today, we recorded the following information about you: Temperature Pulse Respiration Blood pressure 97.2 degrees 71/minute 18/minute 121/54 Weight Height 73.6 kg 1.57 m Mehrdad Aguilar MD 10/02/2020 5:36 PM Signed PATIENT NAME: Ievlisse Gee DATE: 09/30/2020 PRIMARY CARE PHYSICIAN: Carmen Conley MD OTHER PHYSICIANS: Dr. Wahl (PCP [place], [place]), Dr. Magdaleno Castillo ([facility]) Portions of this encounter note have been copied from my note from 08/19/2020 and has been updated where appropriate, and reflect my current medical decision making from today. CC: This is a 70 year old female initially referred for evaluation of thrombocytopenia, seen for scheduled follow-up. INTERIM HISTORY: The patient was initially referred for evaluation of thrombocytopenia, but a CBC obtained at the initial visit was entirely normal. 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 She was found to have normal Ig levels, but a slightly elevated kappa light chain level and a poorly defined protein which may be an M protein. She underwent further evaluation with CT scans, which revealed a suspicious lesion in her liver and possibly pancreas. A subsequent MRI of the abdomen showed no abnormalities of the pancreas, and liver changes consistent with hepatic steatosis. Clinically the patient feels well. She has had no recent fevers or signs of infection. No abdominal pain or other GI symptoms. MEDICATIONS: Current Outpatient Medications Medication Sig - metFORMIN ER (GLUCOPHAGE XR) 500 mg 24 hr tablet metformin ER 500 mg tablet,extended release 24 hr TAKE 2 TABLETS BY MOUTH TWICE A DAY - traMADol (ULTRAM) 50 mg tablet - traZODone (DESYREL) 50 mg tablet trazodone 50 mg tablet TAKE 1 TABLET BY MOUTH EVERY DAY - levothyroxine (SYNTHROID) 50 mcg tablet levothyroxine 50 mcg tablet TAKE 1 TABLET BY MOUTH DAILY - citalopram (CELEXA) 40 mg tablet citalopram 40 mg tablet TAKE 1 TABLET BY MOUTH DAILY - benazepril (LOTENSIN) 20 mg tablet benazepril 20 mg tablet TAKE 1 TABLET BY MOUTH EVERY DAY - SITagliptin (JANUVIA) 100 mg tablet Januvia 100 mg tablet One tab p.o. daily No current facility-administered medications for this visit. ALLERGIES: ALLERGIES Allergen Reactions - Sulfa (Sulfonamide * Anaphylaxis - Latex, Natural Rubb* Unknown Only bandaids PAST MEDICAL HISTORY: PAST MEDICAL HISTORY Diagnosis Date - Anemia - Cirrhosis (HCC) - Depression - Diabetes mellitus (HCC) - Elevated LFTs - Essential hypertension - Fatty liver - Fibromyalgia - Hypothyroidism - Insomnia - Liver nodule - Lung nodule - Migraine, intractable - Mixed hyperlipidemia - Osteopenia - Renal cyst - Renal mass - Thrombocytopenia (HCC) PAST SURGICAL HISTORY: PAST SURGICAL HISTORY Procedure Laterality Date - BLADDER SURGERY HX Bladder sling x2 - COLONOSCOPY GEN ANES 09/27/2016 - REMOVAL GALLBLADDER 2011 - REMOVAL OF OVARY/TUBE(S) - REPAIR ROTATOR CUFF,ACUTE Left 11/21/2016 - TONSILLECTOMY HX - TOTAL ABDOM HYSTERECTOMY 1994 FAMILY HISTORY: FAMILY HISTORY Problem Relation Age of Onset - Alzheimer's Disease Mother - Heart disease Mother - other (Lung disease) Mother - other (neoplastic) Father - Prostate Cancer Son SOCIAL HISTORY: Social History Tobacco Use - Smoking status: Never Smoker - Smokeless tobacco: Never Used Vaping Use - Vaping Use: Never used Substance Use Topics - Alcohol use: Not Currently - Drug use: Never COMPLETE REVIEW OF SYSTEMS: CONSTITUTION: Negative for pain, fatigue, weight loss, or appetite loss. EENT: Negative for mouth soreness, antibiotics use, epistaxis, visual problems, neck or facial swelling, fever/chills, bleeding gums, or hearing loss. CV: Negative for edema, calf swelling, palpitations, or chest pain. RESPIRATORY: Negative for cough, SOB, hemoptysis, or wheezing. GI: Negative for nausea/vomiting, heartburn, vomiting blood, dysphasia, diarrhea, blood in stool, constipation, early satiety, PICA, vegetarian, poor nutrition, abdominal fullness, or abdominal pain. NEUROLOGICAL: Negative for numbness/tingling, dizziness, gait disturbance, headache, speech disturbance, tremor, hemiparesis/sensory loss, or change in mental status. MUSCULOSKELETAL: Negative for joint pain, joint swelling, or proximal muscle weakness. SKIN: Negative for hair loss, bruising, nail changes, rash, itching, pallor, or jaundice. ENDO/URO: Negative for hot flashes, cold or heat intolerance, urinary frequency, urinary hesitancy, menorrhagia, or hematuria. PSYCH: Negative for anxiety, depression, or other. PHYSICAL EXAM: BP 121/ (more content not included)... Normal [facility] Albumin/Creat Ratioon 2020 Albumin Urine Random <12.0 Normal [facility] Comment on above: Performed By: #### C MP, INSLAB, LIPB, CPEPT, GADCAB, B12, VITD, UACR ####[facility] [place] [phone] Albumin/Creat Ratio Not calculated Normal <30 [facility] Comment on above: Performed By: #### C MP, INSLAB, LIPB, CPEPT, GADCAB, B12, VITD, UACR ####[place] [address] [place], [place] [phone] Creatinine,Urine,Ran 53.8 mg/dL Normal 20-300 [facility] Comment on above: Performed By: #### C MP, INSLAB, LIPB, CPEPT, GADCAB, B12, VITD, UACR ####[facility], [place] [phone] C-Peptideon 09-27-2020 C-Peptide 1.8 ng/mL Normal 0.8-3.9 [facility] Comment on above: Performed By: #### C MP, INSLAB, LIPB, CPEPT, GADCAB, B12, VITD, UACR ####[facility], [place] [phone] CBC and Differentialon 09-27 Abs Baso 0.03 k/uL Normal <0.11 [facility] Abs Blair 0.33 k/uL Normal <0.87 [facility] Abs Neut 4.29 k/uL Normal 1.45-7.50 [facility] Absolute nRBC <0.01 Normal <0.01 [facility] Basophils/100 WBC (Bld) 0.4 % Normal [facility] DTYPE Auto Diff Normal [facility] Eosinophils (Bld) [#/Vol] 0.12 10*3/uL Normal <0.46 [facility] Eosinophils/100 WBC (Bld) 1.5 % Normal [facility] Erythrocyte distribution width (RBC) [Ratio] 13.0 % Normal 11.5-15.0 [facility] Hematocrit (Bld) [Volume fraction] 37.3 % Normal 36.0-46.0 [facility] Hemoglobin (Bld) [Mass/Vol] 13.0 g/dL Normal 11.5-15.5 [facility] Lymphocytes (Bld) [#/Vol] 3.40 10*3/uL Normal 1.00-4.00 [facility] Lymphocytes/100 WBC (Bld) 41.6 % Normal [facility] MCH 31.9 pG Normal 26.0-34.0 [facility] MCHC (RBC) [Mass/Vol] 34.9 g/dL Normal 30.5-36.0 [facility] MCV (RBC) [Entitic vol] 91.4 fL Normal 80.0-100.0 [facility] Monocytes/100 WBC (Bld) 4.0 % Normal [facility] Neutrophils/100 WBC (Bld) 52.5 % Normal [facility] NRBCs 0.0 /100 WBC Normal 0 [facility] Platelet mean volume (Bld) [Entitic vol] 9.6 fL Normal 9.0-12.7 [facility] Platelets (Bld) [#/Vol] 164 10*3/uL Normal 150-400 [facility] RBC (Bld) [#/Vol] 4.08 10*6/uL Normal 3.90-5.20 [facility] WBC (Bld) [#/Vol] 8.18 10*3/uL Normal 3.70-11.00 [facility] Comp Metabolic Panelon 09-27 Albumin [Mass/Vol] 4.4 g/dL Normal 3.9-4.9 [facility] Comment on above: Performed By: #### C MP, INSLAB, LIPB, CPEPT, GADCAB, B12, VITD, UACR ####[facility] [place] [address], [place] [phone] ALP [Catalytic activity/Vol] 88 U/L Normal 34-123 [facility] Comment on above: Performed By: #### C MP, INSLAB, LIPB, CPEPT, GADCAB, B12, VITD, UACR ####[place] [address] [address], [place] [phone] ALT [Catalytic activity/Vol] 63 U/L High 7-38 [facility] Comment on above: Performed By: #### C MP, INSLAB, LIPB, CPEPT, GADCAB, B12, VITD, UACR ####[address] [phone] Anion gap [Moles/Vol] 12 mmol/L Normal 9-18 [facility] Comment on above: Performed By: #### C MP, INSLAB, LIPB, CPEPT, GADCAB, B12, VITD, UACR ####[place] [address] [address], [place] [phone] AST [Catalytic activity/Vol] 42 U/L High 13-35 [facility] Comment on above: Performed By: #### C MP, INSLAB, LIPB, CPEPT, GADCAB, B12, VITD, UACR ####[address] [place], [place] [phone] Bilirubin [Mass/Vol] 0.6 mg/dL Normal 0.2-1.3 [facility] Comment on above: Performed By: #### C MP, INSLAB, LIPB, CPEPT, GADCAB, B12, VITD, UACR ####[place] [address] [address], [place] [phone] Calcium [Mass/Vol] 9.2 mg/dL Normal 8.5-10.2 [facility] Comment on above: Performed By: #### C MP, INSLAB, LIPB, CPEPT, GADCAB, B12, VITD, UACR ####[facility] [place], [place] [phone] Chloride [Moles/Vol] 104 mmol/L Normal 97-105 [facility] Comment on above: Performed By: #### C MP, INSLAB, LIPB, CPEPT, GADCAB, B12, VITD, UACR ####[facility] [place] [address] [phone] Creatinine [Mass/Vol] 0.68 mg/dL Normal 0.58-0.96 [facility] Comment on above: Performed By: #### C MP, INSLAB, LIPB, CPEPT, GADCAB, B12, VITD, UACR ####[address] [phone] Glucose [Mass/Vol] 152 mg/dL High 74-99 [facility] Comment on above: Result Comment: The [place] [employer] (ADA) provides guidance for cutoff values for fasting glucose and random glucose. The ADA defines fasting as no caloric intake for at least 8 hours. Fasting plasma glucose results between 100 to 125 mg/dL indicate increased risk for diabetes (prediabetes). Fasting plasma glucose results greater than or equal to 126 mg/dL meet the criteria for diagnosis of diabetes. In the absence of unequivocal hyperglycemia, results should be confirmed by repeat testing. In a patient with classic symptoms of hyperglycemia or hyperglycemic crisis, random plasma glucose results greater than or equal to 200 mg/dL meet the criteria for diagnosis of diabetes. Reference: Standards of Medical Care in Diabetes 2016, [place] [employer]. Diabetes Care. 2016.39(Suppl 1). Performed By: #### C MP, INSLAB, LIPB, CPEPT, GADCAB, B12, VITD, UACR ####[place] [id number] [place], [place] [phone] Potassium [Moles/Vol] 4.3 mmol/L Normal 3.7-5.1 [facility] Comment on above: Performed By: #### C MP, INSLAB, LIPB, CPEPT, GADCAB, B12, VITD, UACR ####[facility] [place], [place] [phone] Sodium [Moles/Vol] 140 mmol/L Normal 136-144 [facility] Comment on above: Performed By: #### C MP, INSLAB, LIPB, CPEPT, GADCAB, B12, VITD, UACR ####[facility] [place], [place] [phone] Urea nitrogen [Mass/Vol] 14 mg/dL Normal 7-21 [facility] Comment on above: Performed By: #### C MP, INSLAB, LIPB, CPEPT, GADCAB, B12, VITD, UACR ####[facility] [place], [place] [phone] Albumin [Mass/Vol] 4.5 g/dL Normal 3.9-4.9 [facility] ALP [Catalytic activity/Vol] 83 U/L Normal 34-123 [facility] ALT [Catalytic activity/Vol] 58 U/L High 7-38 [facility] Anion gap [Moles/Vol] 11 mmol/L Normal 9-18 [facility] AST [Catalytic activity/Vol] 34 U/L Normal 13-35 [facility] Bilirubin [Mass/Vol] 0.7 mg/dL Normal 0.2-1.3 [facility] Calcium [Mass/Vol] 9.5 mg/dL Normal 8.5-10.2 [facility] Chloride [Moles/Vol] 103 mmol/L Normal 97-105 [facility] CO2 [Moles/Vol] 24 mmol/L Normal 22-30 [facility] Comment on above: Performed By: #### C MP, INSLAB, LIPB, CPEPT, GADCAB, B12, VITD, UACR ####[facility] [place], [place] [phone] Creatinine [Mass/Vol] 0.67 mg/dL Normal 0.58-0.96 [facility] eGFR- Amer. >60 Normal [facility] Comment on above: Performed By: #### C MP, INSLAB, LIPB, CPEPT, GADCAB, B12, VITD, UACR ####[facility] [place], [place] [phone] eGFR-All Other Races >60 Normal [facility] Comment on above: Result Comment: eGFR (Estimated GFR) Units of measure: mL/min/1.73 meters squared eGFR is derived from the reexpressed MDRD Study equation using the following parameters: serum creatinine, age, gender and race. The creatinine assay has been calibrated to be traceable to IDMS. An eGFR <60 mL/min/1.73m2 for >3 months is consistent with chronic kidney disease. Refer to KDOQI guidelines for clinical interpretation. In patients with unstable renal function, e.g. those with acute kidney injury, the eGFR may not accurately reflect actual GFR. Performed By: #### C MP, INSLAB, LIPB, CPEPT, GADCAB, B12, VITD, UACR ####[facility] [address] [place], [place] [phone] Glucose [Mass/Vol] 161 mg/dL High 74-99 [facility] Comment on above: Result Comment: The [place] Diabetes Association (ADA) provides guidance for cutoff values for fasting glucose and random glucose. The ADA defines fasting as no caloric intake for at least 8 hours. Fasting plasma glucose results between 100 to 125 mg/dL indicate increased risk for diabetes (prediabetes). Fasting plasma glucose results greater than or equal to 126 mg/dL meet the criteria for diagnosis of diabetes. In the absence of unequivocal hyperglycemia, results should be confirmed by repeat testing. In a patient with classic symptoms of hyperglycemia or hyperglycemic crisis, random plasma glucose results greater than or equal to 200 mg/dL meet the criteria for diagnosis of diabetes. Reference: Standards of Medical Care in Diabetes 2016, [place] [employer] Association. Diabetes Care. 2016.39(Suppl 1). Potassium [Moles/Vol] 4.1 mmol/L Normal 3.7-5.1 [facility] Protein [Mass/Vol] 7.2 g/dL Normal 6.3-8.0 [facility] Comment on above: Performed By: #### C MP, INSLAB, LIPB, CPEPT, GADCAB, B12, VITD, UACR ####[facility], [place] [phone] Sodium [Moles/Vol] 138 mmol/L Normal 136-144 [facility] Urea nitrogen [Mass/Vol] 13 mg/dL Normal 7-21 [facility] Glutamic Ac Decar Abon 09-27 Glutam Ac Dec Ab Ql Negative Normal Negative [facility] Comment on above: Performed By: #### C MP, INSLAB, LIPB, CPEPT, GADCAB, B12, VITD, UACR ####[place] [id number], [place] [phone] Glutamic Ac Decar Ab <5.0 Normal <5.1 [facility] Comment on above: Performed By: #### C MP, INSLAB, LIPB, CPEPT, GADCAB, B12, VITD, UACR ####[facility], [place] [phone] Insulin Autoantibodyon 09-27 Insulin Ab Ql Negative Normal Negative [facility] Comment on above: Performed By: #### C MP, INSLAB, LIPB, CPEPT, GADCAB, B12, VITD, UACR ####[place] [id number], [place] [phone] Insulin Antibody <0.4 Normal <0.4 [facility] Comment on above: Performed By: #### C MP, INSLAB, LIPB, CPEPT, GADCAB, B12, VITD, UACR ####[facility], [place] [phone] Lipid Panel, [place] 021 Cholesterol [Mass/Vol] 110 mg/dL Normal <200 [facility] Comment on above: Result Comment: <200 mg/dL, Desirable 200-239 mg/dL, Borderline high >239 mg/dL, High Performed By: #### C MP, INSLAB, LIPB, CPEPT, GADCAB, B12, VITD, UACR ####[place] [address] [place], [place] [phone] Cholesterol in HDL [Mass/Vol] 37 mg/dL Low >39 [facility] Comment on above: Result Comment: 40-5 9 mg/dL, Acceptable >59 mg/dL, High: Negative risk factor for coronary heart disease <40 mg/dL, Low: Positive risk factor for coronary heart disease Performed By: #### C MP, INSLAB, LIPB, CPEPT, GADCAB, B12, VITD, UACR ####[address] [phone] Cholesterol in LDL [Mass/Vol] 49 mg/dL Normal <100 [facility] Comment on above: Result Comment: <100 mg/dL, Optimal 100-129 mg/dL, Near optimal/above optimal 130-159 mg/dL, Borderline high 160-189 mg/dL, High >189 mg/dL, Very high Secondary prevention optimal LDL Cholesterol levels are recommended to be < 70 mg/dL Performed By: #### C MP, INSLAB, LIPB, CPEPT, GADCAB, B12, VITD, UACR ####[address] [phone] Fasting Time 12 hrs Normal [facility] Comment on above: Performed By: #### C MP, INSLAB, LIPB, CPEPT, GADCAB, B12, VITD, UACR ####[address] [phone] LDL:HDL Ratio 1.32 Normal <2.54 [facility] Comment on above: Result Comment: Refe rence: 1. National Cholesterol Education Program ATP III Guideline At-A-Glance Quick Desk Reference: National Heart, Lung, and Blood [place]. National Institutes of Health. 2001: NIH Publication No. 01-3305. 2. An International Atherosclerosis Society position paper: global recommendations for the management of dyslipidemia: executive summary, Atherosclerosis. 2014: 232(2):410-413. Performed By: #### C MP, INSLAB, LIPB, CPEPT, GADCAB, B12, VITD, UACR ####[place] [id number], [place] [phone] Non HDL Cholesterol 73 mg/dL Normal <130 [facility] Comment on above: Result Comment: <130 mg/dL, Optimal 130-159 mg/dL, Near optimal/above optimal 160-189 mg/dL, Borderline high 190-219 mg/dL, High >219 mg/dL, Very high Secondary prevention optimal non HDL Cholesterol levels are recommended to be < 100 mg/dL Performed By: #### C MP, INSLAB, LIPB, CPEPT, GADCAB, B12, VITD, UACR ####[place] [address], [place] [phone] TC:HDL Ratio 2.97 Normal <5.10 [facility] Comment on above: Performed By: #### C MP, INSLAB, LIPB, CPEPT, GADCAB, B12, VITD, UACR ####[place] [address], [place] [phone] Triglyceride [Mass/Vol] 121 mg/dL Normal <150 [facility] Comment on above: Result Comment: <150 mg/dL, Normal 150-199 mg/dL, Borderline high 200-499 mg/dL, High >499 mg/dL, Very high Performed By: #### C MP, INSLAB, LIPB, CPEPT, GADCAB, B12, VITD, UACR ####[place] [id number], [place] [phone] VLDL Cholesterol 24 mg/dL Normal <30 [facility] Comment on above: Performed By: #### C MP, INSLAB, LIPB, CPEPT, GADCAB, B12, VITD, UACR ####[place] [address], [place] [phone] Vitamin B12on 09-27-2020 Cobalamin (Vitamin B12) [Mass/Vol] 431 pg/mL Normal 232-1245 [facility] Comment on above: Performed By: #### C MP, INSLAB, LIPB, CPEPT, GADCAB, B12, VITD, UACR ####[facility] [place], [place] [phone] Vitamin D 25 Hydroxyon 09-27 Vitamin D 25 Hydroxy 47.2 ng/mL Normal 31.0-80.0 [facility] Comment on above: Result Comment: Clas sification of 25 [place] Vitamin D status: Insufficiency/Moderate Deficiency: < or = 30 ng/mL Sufficiency/Optimal Levels: 31 to 80 ng/mL Toxicity: > 100 ng/mL Test performed by chemiluminescent immunoassay. Performed By: #### C MP, INSLAB, LIPB, CPEPT, GADCAB, B12, VITD, UACR ####[facility] [place], [place] [phone] CNPNiki 09-22-2020 MINNAN Telephone (HEMASA) IVELISSE GEE ([id number]) 1950 F Date Time Provider Department 09/22/20 MEHRDAD AGUILAR During your visit today, we recorded the following information about you: Julianne Beck 09/22/2020 11:15 AM Signed Please sign pending lab orders for Saturday09/30/20. Thanks, Julianne Beck Allergies As of Date: 09/22/2020 Noted Allergy Reaction SULFA (SULFONAMIDE ANTIBIOTICS) 09/05/2016 10 - Anaphylaxis LATEX, NATURAL RUBBER 09/06/2016 16 - Unknown Comments: Only bandaids Date Reviewed: 09/22/2020 Reviewed by: Mac Perez APRN.POT ROOM TAPPER - Fully Assessed Reason for Visit: Lab Orders [4628] Primary Visit Diagnosis:Thrombocytop enia (HCC) [D69.6] Order(s):CBC + DIFF [SQCBCDIF] Order #: [id number] STANDING COMP METABOLIC PANEL [SQCMP] Order #: [id number] STANDING Prescriptions as of 09/22/2020 Sig: METFORMIN ER 500 MG TABLET,EX* metformin ER 500 mg tablet,ex* TRAMADOL 50 MG TABLET TRAZODONE 50 MG TABLET trazodone 50 mg tablet TAKE* LEVOTHYROXINE 50 MCG TABLET levothyroxine 50 mcg tablet * CITALOPRAM 40 MG TABLET citalopram 40 mg tablet TOBY* BENAZEPRIL 20 MG TABLET benazepril 20 mg tablet TOBY* SITAGLIPTIN 100 MG TABLET Januvia 100 mg tablet One t* Problem List As Of Date: 09/22/2020 (None) Encounter Status:Closed by MAC PEREZ on 09/22/20 Normal [facility] MRI ABDOMEN WO/W IVCONon MRI ABDOMEN WO/W IVCON * * *Final Report* * * DATE OF EXAM: Sep 21 2020 11:45AM [facility] 0689 - MRI ABDOMEN WO/W IVCON / PROCEDURE REASON: multiple diagnoses * * * * Physician Interpretation * * * * HISTORY: Hepatic lesion noted on recent CT 08/30/2020 MRI OF ABDOMEN: TECHNIQUE: MR imaging of the abdomen is performed in coronal plane using HASTE, and axial plane using axial diffusion-weighted, fast spin double echo T2 weighted, STIR, in and out of phase T1 weighted pulse sequences and VIBE. Following the intravenous administration of 15 cc Dotarem gadolinium contrast, serial imaging of the abdomen is performed at zero, 45 seconds, 2 minutes and 10 minutes using VIBE pulse sequences. RESULT: Liver: Hepatic steatosis. No enhancing hepatic mass. Transient nodular and bandlike arterial enhancement in the segment 5 of the liver, series 19:18-19. There is no corresponding abnormal T1 or T2 signal intensity. Findings are likely due to perfusion alteration. Pancreas: The pancreas shows normal appearance. No enhancing mass with special attention to the head of the pancreas. No MR evidence of acute pancreatitis. Biliary system: Cholecystectomy. Mild extrahepatic biliary dilatation, 7 mm in AP diameter and tapers to the ampulla, 4 mm in AP diameter. No intrahepatic biliary dilatation. No obvious filling defect in the visualized bile duct. Spleen: No discrete mass or splenomegaly. Adrenal glands: No adrenal nodule or mass. Kidneys:. No hydronephrosis or enhancing soft tissue mass. 5 mm fatty lesion with Natalie ink artifact at the mid pole of the right kidney, consistent with presence of extracerebral fat/bulk fat. 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 5 mm and 9 mm T1-weighted hyperintense hemorrhagic Bosniak type II cysts at the midpole of the left kidney. 6 mm or less renal cysts. Lymph nodes: No lymphadenopathy. Mesentery, peritoneum and retroperitoneum: No ascites or mass. Vasculatures: No portal venous thrombosis or other obvious venous thrombosis is noted in the visualized abdomen. No abdominal aortic aneurysm. No significant stenosis at the visualized celiac artery or superior mesentery artery. GI tract: The visualized bowel loops show no obvious abnormality. Bone and soft tissues: No significant abnormality. IMPRESSION: Hepatic steatosis. Transient nodular and bandlike arterial enhancement in the segment 5 of the liver, likely due to perfusion alteration. A short-term follow-up in 6 months is recommended to assess the chaplain resident stability, progression or resolution of the findings. No enhancing pancreatic mass with special attention to the head of the pancreas. 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 5 mm and 9 mm Bosniak type II hemorrhagic cysts at the midpole of the left kidney. Additional subcentimeter renal cysts. Cholecystectomy with mildly dilatation. No choledocholithiasis. Library Acquisitions Technician: SHAHRZAD Transcribe Date/Time: Sep 21 2020 1:58P Dictated by : ANA MARÍA ARAIZA MD This examination was interpreted and the report reviewed and electronically signed by: ANA MARÍA ARAIZA MD on Sep 21 2020 10:19PM EST [id number] Normal [facility] CNPNiki 09-01-2020 CNPN Telephone (HEMASA) IVELISSE GEE ([id number]) 1950 F Date Time Provider Department 09/01/20 ABHI CLEANING During your visit today, we recorded the following information about you: Abhi Cleaning RN 09/01/2020 9:48 AM Signed BRM: Pt would like call regarding scan results. Please advise. MONICO Louie MD 09/01/2020 12:26 PM Signed I tried to call patient, no answer. Left message to call back. If she calls in I am not available mention a questionable lesion is seen in the liver and a tiny spot in the pancreas. MRI of the abdomen is recommended. Please schedule if patient in agreement. Thanks, BRM Abhi Cleaning RN 09/01/2020 1:45 PM Signed Informed pt of Dr Aguilar's message. Pt verbalized understanding and is agreeable to plan. Clerical: Please schedule pt for MRI at [facility]. Thank you. BRM: Order pending, please review and sign. MONICO Louie 09/01/2020 2:24 PM Signed Called patient to inform her that she has been scheduled for MRI @ [facility] on 09/07/20 @ 8:30am. LMOV. Fernando Dixon Vijaya Kaur Sec 09/01/2020 2:47 PM Signed Patient is aware of appointemtn date and time Abhi Cleaning RN 09/01/2020 3:19 PM Signed BRM/HM: Please sign MRI order so we can try to switch appt to [facility]. Thank you. 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 No IV access, insert saline lock prior to the beginning of sedation, infusion, injection of imaging exam. Discontinue saline lock post exam. If Pt. has a central line or IVAD, may access for administration according to line specific nursing protocol. Once exam is complete flush line and de-access according to line specific nursing protocol in the MR contrast administration guidelines link.Disp: 1 EachRfl: 0 Prescriptions as of 09/01/2020 Sig: IV CONTRAST (RADIOLOGY PROCED* MRI ABD/PEL Inject, intraveno* METFORMIN ER 500 MG TABLET,EX* metformin ER 500 mg tablet,ex* TRAMADOL 50 MG TABLET TRAZODONE 50 MG TABLET trazodone 50 mg tablet TAKE* LEVOTHYROXINE 50 MCG TABLET levothyroxine 50 mcg tablet * CITALOPRAM 40 MG TABLET citalopram 40 mg tablet TOBY* BENAZEPRIL 20 MG TABLET benazepril 20 mg tablet TOBY* SITAGLIPTIN 100 MG TABLET Januvia 100 mg tablet One t* Problem List As Of Date: 09/01/2020 (None) Prescriptions ordered this encounter Disp Refills Start End IV CONTRAST (RADIOLOGY PROCEDURE) 1 Ea* 0 09/01/2020 09/02/2020 Class: In Office Sig: MRI ABD/PEL Inject, intravenously, once for 1 dose. No IV access, insert saline lock prior to the beginning of sedation, infusion, injection of imaging exam. Discontinue saline lock post exam. If Pt. has a central line or IVAD, may access for administration according to line specific nursing protocol. Once exam is complete flush line and de-access according to line specific nursing protocol in the MR contrast administration guidelines link. 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 MQ: CTAP_3 Contrast: IV: 150 ml of Omnipaque 300 Oral: 900 ml of 50 ml of Omnipaque [address] Radiation dose: Integrated Dose-length product (DLP) for this visit = 824 mGy*cm. CT Dose Reduction Employed: Automated exposure control (AEC) COMPARISON: None. RESULT: Liver: Mild, diffuse hepatic steatosis. Poorly defined, lobulated, enhancing lesion is appreciated within the inferior right hepatic lobe, measuring approximately 1.8 x 1.3 cm, image 66, series 2. No additional hepatic lesions. Biliary Tract: No bile duct dilation. The gallbladder is surgically absent. Spleen: No splenomegaly. No mass. Pancreas: No ductal dilatation. 6 mm hypervascular lesion is appreciated at the pancreatic head, image 68, series 2. Adrenal glands: No mass. Kidneys: No enhancing mass or hydronephrosis. Numerous bilateral 1.0 cm or less hypodensities are identified, likely related to cysts. 5 mm right renal lesion demonstrating macroscopic fat is appreciated, compatible with a benign angiolipoma. GI Tract: No bowel wall thickening or dilation. Lymph nodes: No substantial mesenteric, retroperitoneal, or pelvic lymphadenopathy. Mesentery: No ascites. No mass. Retroperitoneum: No mass. Vasculature: The celiac axis and SMA are patent. The portal vein and branches, splenic vein, SMV, and hepatic veins are patent. Arterial atherosclerotic disease, the abdominal aorta and common iliac arteries are normal in caliber. Pelvis: No free fluid or pelvic mass. Mild, diffuse bladder wall thickening is noted, at least partly related to complete distention. Small left lateral bladder wall diverticulum is appreciated. The uterus is absent. No substantial inguinal adenopathy. Bones/Soft Tissues: Degenerative change involving the lumbar spine. No osseous destructive process. Lower Thorax: Limited images through the lung bases appear unremarkable. Foam Gun Operator (topogram) images: No additional findings. IMPRESSION: 1. 1.8 X 1.3 CM INDETERMINATE ENHANCING RIGHT LOBE HEPATIC LESION, ABOVE. WHILE THIS MAY RELATE TO BENIGN ETIOLOGY SUCH ATYPICAL HEMANGIOMA, THE POSSIBILITY OF UNDERLYING HYPERVASCULAR NEOPLASM CANNOT BE EXCLUDED. FURTHER WORKUP WITH MRI EXAMINATION OF THE LIVER/ABDOMEN IS RECOMMENDED. 2. INDETERMINATE 6 MM HYPERVASCULAR PANCREATIC HEAD LESION. THE POSSIBILITY OF A PRIMARY PANCREATIC NEOPLASM CANNOT BE EXCLUDED. THIS CAN ALSO BE FURTHER ASSESSED WITH FOLLOW-UP MRI EXAMINATION OF THE ABDOMEN. 3. 5 mm right renal lesion demonstrating macroscopic fat, compatible with a benign angiomyolipoma. Acuity: Actionable Findings: Liver Routing Code: LV_1 Recommendation: MRI LIVER WO/W IVCON (add Dotarem in comments) Time Frame: at the discretion of the clinical team. Transcribe Date/Time: Sep 01 2020 8:18A Dictated by: GEORGE VENTURA MD This examination was interpreted and the report reviewed and electronically signed by: GEORGE VENTURA MD on Sep 01 2020 8:43AM EST Thank you for allowing us to participate in the care of your patient. Should there be any questions regarding this interpretation, please call [phone]. If you are unable to reach us at the number above, please feel free to contact [facility]iology at [phone]. [id number] Normal [facility] Protein Electrophor.on 08-30 Albumin [Mass/Vol] 4.24 g/dL High 3.37-4.23 [facility] Comment on above: Performed By: #### S EPG ####[address] [phone] Alpha 1 Globulin 0.27 gm/dL Normal 0.18-0.31 [facility] Comment on above: Performed By: #### S EPG ####[address] [phone] Alpha 2 Globulin 0.82 gm/dL Normal 0.52-0.97 [facility] Comment on above: Performed By: #### S EPG ####[place] [id number] [place], [place] [phone] Beta Globulin 1.11 gm/dL Normal 0.84-1.36 [facility] Comment on above: Performed By: #### S EPG ####[place] [address] [place], [place] [phone] Gamma Globulin 1.27 gm/dL Normal 0.70-1.44 [facility] Comment on above: Performed By: #### S EPG ####[address] [phone] Interpretation SEE COMMENT [facility] Comment on above: Result Comment: No d efinitive M protein is identified on protein electrophoresis. Performed By: #### S EPG ####[address] [phone] M Protein Location N/A Normal [facility] Comment on above: Performed By: #### S EPG ####[address] [phone] M Shmuel Concentratn 0.00 gm/dL Normal 0.00 [facility] Comment on above: Performed By: #### S EPG ####[address] [phone] Protein [Mass/Vol] 7.7 g/dL Normal 6.3-8.0 [facility] Comment on above: Performed By: #### S EPG ####[address] [phone] SPE Staff Review Reviewed by Audelia Cabrera MD ([id number]) [facility] Comment on above: Performed By: #### S EPG ####[address] [phone] Js 08-23-2020 CNPN Telephone (GRISEL) IVELISSE GEE ([id number]) 1950 F Date Time Provider Department 08/23/20 MEHRDAD AGUILAR During your visit today, we recorded the following information about you: Adele Delong 08/23/2020 9:45 AM Signed Marta Cuellar Pss MP ? 9:12 AM Note lvm returning GI's call to call back regarding patient to schedule patient for this referral. August 19, 2020 ? ? 3:53 PM Lorri Keyes Sec routed this conversation to [facility] Clerical Pool Lorri Keyes Sec ? 3:53 PM Note Left message at Dr Magdaleno Cuello [facility] GI. They may ask for me. She needs to be seen for Liver cirrhosis. Please call [phone] to refer this patient if they do not call back to schedule. Tracy Gonzáles [facility] 08/24/2020 10:00 AM Signed Records and referral faxed to [facility]. Marta Cuellar Pss 08/25/2020 1:09 PM Signed Patient is scheduled 10/03/20 at 9:30 AM Thank You, Marta Allergies As of Date: 08/23/2020 Noted Allergy Reaction SULFA (SULFONAMIDE ANTIBIOTICS) 09/05/2016 10 - Anaphylaxis LATEX, NATURAL RUBBER 09/06/2016 16 - Unknown Comments: Only bandaids Date Reviewed: 08/19/2020 Reviewed by: Carlos Brewer MA - Fully Assessed Reason for Visit: Appointment [186] Prescriptions as of 08/23/2020 Sig: METFORMIN ER 500 MG TABLET,EX* metformin ER 500 mg tablet,ex* TRAMADOL 50 MG TABLET TRAZODONE 50 MG TABLET trazodone 50 mg tablet TAKE* LEVOTHYROXINE 50 MCG TABLET levothyroxine 50 mcg tablet * CITALOPRAM 40 MG TABLET citalopram 40 mg tablet TOBY* BENAZEPRIL 20 MG TABLET benazepril 20 mg tablet TOBY* SITAGLIPTIN 100 MG TABLET Januvia 100 mg tablet One t* Problem List As Of Date: 08/23/2020 (None) Encounter Status:Closed by ADELE DELONG on 09/20/20 [facility] IVELISSE GEE ([id number]) 1950 F Date Time Provider Department 08/22/20 MEHRDAD AGUILAR During your visit today, we recorded the following information about you: Allergies As of Date: 08/22/2020 Noted Allergy Reaction SULFA (SULFONAMIDE ANTIBIOTICS) 09/05/2016 10 - Anaphylaxis LATEX, NATURAL RUBBER 09/06/2016 16 - Unknown Comments: Only bandaids Date Reviewed: 08/19/2020 Reviewed by: Carlos Brewer MA - Fully Assessed Reason for Visit: Patient Question [6087] Prescriptions as of 08/22/2020 Sig: METFORMIN ER 500 MG TABLET,EX* metformin ER 500 mg tablet,ex* TRAMADOL 50 MG TABLET TRAZODONE 50 MG TABLET trazodone 50 mg tablet TAKE* LEVOTHYROXINE 50 MCG TABLET levothyroxine 50 mcg tablet * CITALOPRAM 40 MG TABLET citalopram 40 mg tablet TOBY* BENAZEPRIL 20 MG TABLET benazepril 20 mg tablet TOBY* SITAGLIPTIN 100 MG TABLET Januvia 100 mg tablet One t* Problem List As Of Date: 08/22/2020 (None) Encounter Status:Closed by MARTA GARCES on 08/22/20 [facility] CNOVSPon 08-19-2020 CNOVSP Visit (SP) Office (HEMASA) IVELISSE GEE ([id number]) 1950 F Date Time Provider Department 08/19/20 11:15 AM MEHRDAD AGUILAR During your visit today, we recorded the following information about you: Temperature Pulse Respiration Blood pressure 98.2 degrees 88/minute 16/minute 130/56 Weight Height 74 kg 1.57 m Mehrdad Aguilar MD 08/20/2020 1:40 PM Signed PATIENT NAME: Ivelisse Gee DATE: 08/19/2020 PRIMARY CARE PHYSICIAN: Carmen Conley MD OTHER PHYSICIANS: Dr. Wahl ((PCP [place], [place]) HPI: This is a 70 year old female referred for evaluation of thrombocytopenia. The patient apparently was initially found to have an abnormal CBC in 2017 when she was admitted to a hospital with sepsis. At that time she had mild anemia and mild thrombocytopenia, and subsequently was diagnosed with liver disease. 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 She was seen by GI (Dr. Martínez) for further evaluation. Apparently a battery of labs were obtained and she was found to have a positive TL as well as other auto-antibodies, but no specific treatment was recommended, and the patient has not been seen by rheumatology. Apparently since then she has had 2 separate bouts of infections requiring hospitalization, most recently while residing in [place] in June 2020. During her recent hospitalization labs revealed persistent thrombocytopenia with a platelet count ranging from 80-90,000. The patient is currently referred for evaluation of her abnormal CBC. Since the patient's hospitalization she started [id number] supplements including multivitamin. She has had no significant changes since then. No recent fevers or signs of infection. She denies any signs of bleeding or significant bruising. The patient does not smoke, and does not drink alcohol. MEDICATIONS: Current Outpatient Medications Medication Sig - metFORMIN ER (GLUCOPHAGE XR) 500 mg 24 hr tablet metformin ER 500 mg tablet,extended release 24 hr TAKE 2 TABLETS BY MOUTH TWICE A DAY - traMADol (ULTRAM) 50 mg tablet - traZODone (DESYREL) 50 mg tablet trazodone 50 mg tablet TAKE 1 TABLET BY MOUTH EVERY DAY - levothyroxine (SYNTHROID) 50 mcg tablet levothyroxine 50 mcg tablet TAKE 1 TABLET BY MOUTH DAILY - citalopram (CELEXA) 40 mg tablet citalopram 40 mg tablet TAKE 1 TABLET BY MOUTH DAILY - benazepril (LOTENSIN) 20 mg tablet benazepril 20 mg tablet TAKE 1 TABLET BY MOUTH EVERY DAY - SITagliptin (JANUVIA) 100 mg tablet Januvia 100 mg tablet One tab p.o. daily No current facility-administered medications for this visit. ALLERGIES: ALLERGIES Allergen Reactions - Sulfa (Sulfonamide * Anaphylaxis - Latex, Natural Rubb* Unknown Only bandaids PAST MEDICAL HISTORY: PAST MEDICAL HISTORY Diagnosis Date - Anemia - Cirrhosis (HCC) - Depression - Diabetes mellitus (HCC) - Elevated LFTs - Essential hypertension - Fatty liver - Fibromyalgia - Hypothyroidism - Insomnia - Liver nodule - Lung nodule - Migraine, intractable - Mixed hyperlipidemia - Osteopenia - Renal cyst - Renal mass - Thrombocytopenia (HCC) PAST SURGICAL HISTORY: PAST SURGICAL HISTORY Procedure Laterality Date - BLADDER SURGERY HX Bladder sling x2 - COLONOSCOPY GEN ANES 09/27/2016 - REMOVAL GALLBLADDER 2011 - REMOVAL OF OVARY/TUBE(S) - REPAIR ROTATOR CUFF,ACUTE Left 11/21/2016 - TONSILLECTOMY HX - TOTAL ABDOM HYSTERECTOMY 1994 FAMILY HISTORY: FAMILY HISTORY Problem Relation Age of Onset - Alzheimer's Disease Mother - Heart disease Mother - other (Lung disease) Mother - other (neoplastic) Father SOCIAL HISTORY: Social History Tobacco Use - Smoking status: Never Smoker - Smokeless tobacco: Never Used Substance Use Topics - Alcohol use: Not Currently - Drug use: Never COMPLETE REVIEW OF SYSTEMS: CONSTITUTION: Negative for pain, fatigue, weight loss, or appetite loss. EENT: Negative for mouth soreness, antibiotics use, epistaxis, visual problems, neck or facial swelling, fever/chills, bleeding gums, or hearing loss. CV: Negative for edema, calf swelling, palpitations, or chest pain. RESPIRATORY: Negative for cough, SOB, hemoptysis, or wheezing. GI: Negative for nausea/vomiting, heartburn, vomiting blood, dysphasia, diarrhea, blood in stool, constipation, early satiety, PICA, vegetarian, poor nutrition, abdominal fullness, or abdominal pain. NEUROLOGICAL: Negative for numbness/tingling, dizziness, gait disturbance, headache, speech disturbance, tremor, hemiparesis/sensory loss, or change in mental status. MUSCULOSKELETAL: Negative for joint pain, joint swelling, or proximal muscle weakness. SKIN: Negative for hair loss, bruising, nail changes, rash, itching, pallor, or jaundice. ENDO/URO: Negative for hot flashes, cold or heat intolerance, urinar (more content not included)... Normal [facility] 08-19-2020 CNPN Telephone (PETSAN) IVELISSE GEE ([id number]) 1950 F Date Time Provider Department 08/19/20 JESSIE MILES (RN) [place] During your visit today, we recorded the following information about you: Jessie Miles 08/19/2020 12:27 PM Signed Please sign pending CAP CTs w/IVCON for Ivelisse Gee [id number] who was added to the schedule for scans on 08/30. Thanks KAMALJIT Zepeda, RN Mehrdad Aguilar MD 08/19/2020 12:41 PM Signed Actually we just need CT abd/pelvis BRChun Miles 08/19/2020 1:07 PM Signed Noted to have only abd/pelvis CT done. Thanks! 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 Discontinue saline lock post exam. If Pt. has a central line or IVAD, may access for administration according to line specific nursing protocol. Once exam is complete flush line and de-access according to line specific nursing protocol in the CT contrast administration guidelines link.Disp: 1 EachRfl: 0 enteric contrast (will be provided with radiology test)For CT CHESTABD/PEL W IVCON Routine order Administer, As Directed One Time Only, via Oral, Rectal, both Oral and Rectal, Enteric Tube, Stoma or Indwelling Catheter, Enteric Contrast as designated per enteric contrast guidelinesDisp: 1 EachRfl: 0 Prescriptions as of 08/19/2020 Sig: IV CONTRAST (RADIOLOGY PROCED* CT Chest ABD/PEL-Inject, intr* ENTERIC CONTRAST (RADIOLOGY P* For CT CHESTABD/PEL W IVCON R* METFORMIN ER 500 MG TABLET,EX* metformin ER 500 mg tablet,ex* TRAMADOL 50 MG TABLET TRAZODONE 50 MG TABLET trazodone 50 mg tablet TAKE* LEVOTHYROXINE 50 MCG TABLET levothyroxine 50 mcg tablet * CITALOPRAM 40 MG TABLET citalopram 40 mg tablet TOBY* BENAZEPRIL 20 MG TABLET benazepril 20 mg tablet TOBY* SITAGLIPTIN 100 MG TABLET Januvia 100 mg tablet One t* Problem List As Of Date: 08/19/2020 (None) Prescriptions ordered this encounter Disp Refills Start End IV CONTRAST (RADIOLOGY PROCEDURE) 1 Ea* 0 08/19/2020 08/20/2020 Class: In Office Sig: CT Chest ABD/PEL-Inject, intravenously, once for 1 dose.No IV access, insert saline lock prior to the beginning of sedation, infusion, injection of imaging exam. Discontinue saline lock post exam. If Pt. has a central line or IVAD, may access for administration according to line specific nursing protocol. Once exam is complete flush line and de-access according to line specific nursing protocol in the CT contrast administration guidelines link. ENTERIC CONTRAST (RADIOLOGY PROCEDUR* 1 Ea* 0 08/19/2020 08/20/2020 Class: In Office Sig: For CT CHESTABD/PEL W IVCON Routine order Administer, As Directed One Time Only, via Oral, Rectal, both Oral and Rectal, Enteric Tube, Stoma or Indwelling Catheter, Enteric Contrast as designated per enteric contrast guidelines Encounter Status:Closed by JESSIE MILES on 08/19/20 Normal [facility] Comp Metabolic Panelon 08-19 Albumin [Mass/Vol] 4.7 g/dL Normal 3.9-4.9 [facility] ALP [Catalytic activity/Vol] 93 U/L Normal 34-123 [facility] ALT [Catalytic activity/Vol] 56 U/L High 7-38 [facility] Anion gap [Moles/Vol] 12 mmol/L Normal 9-18 [facility] AST [Catalytic activity/Vol] 40 U/L High 13-35 [facility] Bilirubin [Mass/Vol] 0.9 mg/dL Normal 0.2-1.3 [facility] Calcium [Mass/Vol] 9.8 mg/dL Normal 8.5-10.2 [facility] Chloride [Moles/Vol] 102 mmol/L Normal 97-105 [facility] CO2 [Moles/Vol] 22 mmol/L Normal 22-30 [facility] Creatinine [Mass/Vol] 0.66 mg/dL Normal 0.58-0.96 [facility] eGFR- Amer. >60 Normal [facility] eGFR-All Other Races >60 Normal [facility] Comment on above: Result Comment: eGFR (Estimated GFR) Units of measure: mL/min/1.73 meters squared eGFR is derived from the reexpressed MDRD Study equation using the following parameters: serum creatinine, age, gender and race. The creatinine assay has been calibrated to be traceable to IDMS. An eGFR <60 mL/min/1.73m2 for >3 months is consistent with chronic kidney disease. Refer to KDOQI guidelines for clinical interpretation. In patients with unstable renal function, e.g. those with acute kidney injury, the eGFR may not accurately reflect actual GFR. Glucose [Mass/Vol] 258 mg/dL High 74-99 [facility] Comment on above: Result Comment: The [place] [employer] (ADA) provides guidance for cutoff values for fasting glucose and random glucose. The ADA defines fasting as no caloric intake for at least 8 hours. Fasting plasma glucose results between 100 to 125 mg/dL indicate increased risk for diabetes (prediabetes). Fasting plasma glucose results greater than or equal to 126 mg/dL meet the criteria for diagnosis of diabetes. In the absence of unequivocal hyperglycemia, results should be confirmed by repeat testing. In a patient with classic symptoms of hyperglycemia or hyperglycemic crisis, random plasma glucose results greater than or equal to 200 mg/dL meet the criteria for diagnosis of diabetes. Reference: Standards of Medical Care in Diabetes 2016, [place] [employer]. Diabetes Care. 2016.39(Suppl 1). Potassium [Moles/Vol] 4.3 mmol/L Normal 3.7-5.1 [facility] Protein [Mass/Vol] 8.0 g/dL Normal 6.3-8.0 [facility] Sodium [Moles/Vol] 136 mmol/L Normal 136-144 [facility] Urea nitrogen [Mass/Vol] 13 mg/dL Normal 7-21 [facility] Ferritinon 08-19-2020 Ferritin [Mass/Vol] 184.0 ng/mL Normal 14.7-205.1 [facility] Comment on above: Performed By: #### F ERR, IRON ####[place] [address] [address] [place] [phone] Iron and TIBCon 08-19-2020 Iron [Mass/Vol] 116 ug/dL Normal 41-186 [facility] Comment on above: Performed By: #### F ERR, IRON ####[address] [place] [phone] TIBC 357 ug/dL Normal 232-386 [facility] Comment on above: Performed By: #### F ERR, IRON ####[address] [place] [place] [phone] Transferrin Saturatn 32 % Normal 15-57 [facility] Comment on above: Performed By: #### F ERR, IRON ####[address], [place] [phone] LDon 08-19-2020 LD 171 U/L Normal 135-214 [facility] Monclnl Protein, Seron 08-19 K/L Ratio, Serum 1.43 Normal 0.26-1.65 [facility] Comment on above: Performed By: #### S ERMPA, B12 ####[address] [place], [place] [phone] [place], Free, Serum 28.3 mg/L High 3.30-19.40 [facility] Comment on above: Result Comment: Test performed by an immunoturbidimetric assay on [employer] instrument from [facility]. Immunoglobulin free light chain assay results should be interpreted in conjunction with other tests and in correlation with clinical picture. Performed By: #### S ANGELICA B12 ####[place] [id number] [place] [phone] Lambda, Free, Serum 19.8 mg/L Normal 5.7-26.3 [facility] Comment on above: Result Comment: Test performed by an immunoturbidimetric assay on [employer] instrument from [facility]. Immunoglobulin free light chain assay results should be interpreted in conjunction with other tests and in correlation with clinical picture. Performed By: #### S ANGELICA B12 ####[place] [phone] MPA Interpretation SEE COMMENT Normal [facility] Comment on above: Result Comment: Poor ly defined region of restricted mobility in IgG and lambda lanes. Pattern is less well defined or fainter than typically seen in monoclonal gammopathy. This could represent either an atypical presentation of polyclonal immunoglobulins or the presence of a low level IgG lambda monoclonal gammopathy. If clinically indicated, urine monoclonal protein analysis and serum free light chain measurements are recommended to evaluate further for monoclonal gammopathy. Clinical correlation is necessary. Performed By: #### Kg DOMINGUEZ B12 ####[place] [phone] MPA Result A poorly defined region of restricted mobility is present that may represent an M protein. Critically abnormal No M protein is identified. [facility] Comment on above: Performed By: #### Kg DOMINGUEZ B12 ####[facility] [phone] MPA Serum IgA 196 mg/dL Normal 70-400 [facility] Comment on above: Performed By: #### Kg DOMINGUEZ, B12 ####[facility] [place] [phone] MPA Serum IgG 1243 mg/dL Normal 700-1600 [facility] Comment on above: Performed By: #### S ANGELICA, B12 ####[facility] [place], [place] [phone] MPA Serum IgM 58 mg/dL Normal 40-230 [facility] Comment on above: Performed By: #### S ANGELICA, B12 ####[facility] [address] [place], [place] [phone] Staff Review Reviewed by Audelia Cabrera MD ([id number]) Normal [facility] Comment on above: Performed By: #### S ANGELICA, B12 ####[facility] [address], [place] [phone] Remote CBCDIF (for [facility] use o nly)on 08-19-2020 Abs Baso <0.03 Normal <0.11 [facility] Abs Blair 0.33 k/uL Normal <0.87 [facility] Abs Neut 3.89 k/uL Normal 1.45-7.50 [facility] Absolute nRBC <0.01 Normal <0.01 [facility] Basophils/100 WBC (Bld) 0.3 % Normal [facility] DTYPE Auto Diff Normal [facility] Eosinophils (Bld) [#/Vol] 0.14 10*3/uL Normal <0.46 [facility] Eosinophils/100 WBC (Bld) 2.0 % Normal [facility] Erythrocyte distribution width (RBC) [Ratio] 12.8 % Normal 11.5-15.0 [facility] Hematocrit (Bld) [Volume fraction] 40.5 % Normal 36.0-46.0 [facility] Hemoglobin (Bld) [Mass/Vol] 13.8 g/dL Normal 11.5-15.5 [facility] Lymphocytes (Bld) [#/Vol] 2.71 10*3/uL Normal 1.00-4.00 [facility] Lymphocytes/100 WBC (Bld) 38.1 % Normal [facility] MCH 31.2 pG Normal 26.0-34.0 [facility] MCHC (RBC) [Mass/Vol] 34.1 g/dL Normal 30.5-36.0 [facility] MCV (RBC) [Entitic vol] 91.4 fL Normal 80.0-100.0 [facility] Monocytes/100 WBC (Bld) 4.6 % Normal [facility] Neutrophils/100 WBC (Bld) 55.0 % Normal [facility] NRBCs 0.0 /100 WBC Normal 0 [facility] Platelet mean volume (Bld) [Entitic vol] 9.7 fL Normal 9.0-12.7 [facility] Platelets (Bld) [#/Vol] 170 10*3/uL Normal 150-400 [facility] RBC (Bld) [#/Vol] 4.43 10*6/uL Normal 3.90-5.20 [facility] WBC (Bld) [#/Vol] 7.11 10*3/uL Normal 3.70-11.00 [facility] Reticulocyteon 08-19-2020 Abs Retic 0.096 M/uL Normal 0.0180-0.10 00 [facility] Retic% 2.2 % High 0.4-2.0 [facility] Vitamin B12on 08-19-2020 Cobalamin (Vitamin B12) [Mass/Vol] 421 pg/mL Normal 232-1245 [facility] Comment on above: Performed By: #### S ERMPA, B12 ####[facility] [address] [place], [place] [phone] Vital Signs Date Time Vital Sign Value Performing Clinician Facility 03-21-2023 13:30-0500 Body height 153.67 cm Carmen Conley Other [facility] 03-21-2023 13:30-0500 Body mass index (BMI) [Ratio] 30.54 kg/m2 Carmen Conley Other [facility] Other 03-21-2023 13:30-0500 Body weight 72.12 kg Carmen Conley Other [facility] Other 03-21-2023 13:30-0500 Diastolic blood pressure 79 mm[Hg] Carmen Conley Other [facility] Other 03-21-2023 13:30-0500 Systolic blood pressure 136 mm[Hg] Carmen Conley Other [facility] Other 01-24-2023 11:15-0400 Body height 153.67 cm Carmen Conley Other [facility] Other 01-24-2023 11:15-0400 Body mass index (BMI) [Ratio] 29.58 kg/m2 Carmen Conley Other [facility] Other 01-24-2023 11:15-0400 Body temperature 97.7 [degF] Carmen Conley Other [facility] Other 01-24-2023 11:15-0400 Body weight 69.85 kg Carmen Conley Other [facility] Other 01-24-2023 11:15-0400 Diastolic blood pressure 80 mm[Hg] Carmen Conley Other [facility] Other 01-24-2023 11:15-0400 SaO2% (BldA) [Mass fraction] 97 % Carmen Conley Other [facility] Other 01-24-2023 11:15-0400 Systolic blood pressure 137 mm[Hg] Carmen Conley Other [facility] Other 12-28-2022 13:30-0400 Body height 153.67 cm Carmen Conley Other [facility] Other 12-28-2022 13:30-0400 Body mass index (BMI) [Ratio] 29.96 kg/m2 Carmen Conley Other [facility] Other 12-28-2022 13:30-0400 Body weight 70.76 kg Carmen Conley Other [facility] Other 12-28-2022 13:30-0400 Diastolic blood pressure 64 mm[Hg] Carmen Conley Other [facility] Other 12-28-2022 13:30-0400 Systolic blood pressure 106 mm[Hg] Carmen Conley Other [facility] Other 08-07-2022 12:45-0400 Body height 153.67 cm Carmen Conley Other [facility] Other 08-07-2022 12:45-0400 Body mass index (BMI) [Ratio] 30.15 kg/m2 Carmen Conley Other [facility] Other 08-07-2022 12:45-0400 Body temperature 98.1 [degF] Carmen Conley Other [facility] Other 08-07-2022 12:45-0400 Body weight 71.22 kg Carmen Conley Other [facility] Other 08-07-2022 12:45-0400 Diastolic blood pressure 72 mm[Hg] Carmen Conley Other [facility] Other 08-07-2022 12:45-0400 SaO2% (BldA) [Mass fraction] 97 % Carmen Conley Other [facility] Other 08-07-2022 12:45-0400 Systolic blood pressure 132 mm[Hg] Carmen Conley Other [facility] Other 06-20-2022 12:00-0400 Body height 153.67 cm Carmen Conley Other [facility] Other 06-20-2022 12:00-0400 Body mass index (BMI) [Ratio] 30.54 kg/m2 Carmen Conley Other [facility] Other 06-20-2022 12:00-0400 Body weight 72.12 kg Carmen Conley Other [facility] Other 06-20-2022 12:00-0400 Diastolic blood pressure 70 mm[Hg] Carmen Conley Other [facility] Other 06-20-2022 12:00-0400 SaO2% (BldA) [Mass fraction] 98 % Carmen Conley Other [facility] Other 06-20-2022 12:00-0400 Systolic blood pressure 118 mm[Hg] Carmen Conley Other [facility] Other 06-12-2022 09:30-0500 Body height 153.67 cm Carmen Conley Other [facility] Other 06-12-2022 09:30-0500 Body mass index (BMI) [Ratio] 30.54 kg/m2 Carmen Conley Other [facility] Other 06-12-2022 09:30-0500 Body weight 72.12 kg Carmen Conley Other [facility] Other 06-12-2022 09:30-0500 Diastolic blood pressure 64 mm[Hg] Carmen Conley Other [facility] Other 06-12-2022 09:30-0500 SaO2% (BldA) [Mass fraction] 97 % Carmen Conley Other [facility] Other 06-12-2022 09:30-0500 Systolic blood pressure 116 mm[Hg] Carmen Conley Other [facility] Other 05-10-2022 11:00-0500 Body height 153.67 cm Carmen Conley Other [facility] Other 05-10-2022 11:00-0500 Body mass index (BMI) [Ratio] 30.54 kg/m2 Carmen Conley Other [facility] Other 05-10-2022 11:00-0500 Body weight 72.12 kg Carmen Conley Other [facility] Other 05-10-2022 11:00-0500 Diastolic blood pressure 62 mm[Hg] Carmen Conley Other [facility] Other 05-10-2022 11:00-0500 SaO2% (BldA) [Mass fraction] 97 % Carmen Conley Other [facility] Other 05-10-2022 11:00-0500 Systolic blood pressure 118 mm[Hg] Carmen Conley Other [facility] Other 04-20-2022 11:30-0500 Body height 153.67 cm Carmen Conley Other [facility] Other 04-20-2022 11:30-0500 Body mass index (BMI) [Ratio] 30.54 kg/m2 Carmen Conley Other [facility] Other 04-20-2022 11:30-0500 Body weight 72.12 kg Carmen Conley Other [facility] Other 04-20-2022 11:30-0500 Diastolic blood pressure 80 mm[Hg] Carmen Conley Other [facility] Other 04-20-2022 11:30-0500 SaO2% (BldA) [Mass fraction] 97 % Carmen Conley Other [facility] Other 04-20-2022 11:30-0500 Systolic blood pressure 126 mm[Hg] Carmen Conley Other [facility] Other 04-16-2022 15:15-0500 Body height 153.67 cm Carmen Conley Other [facility] Other 04-16-2022 15:15-0500 Body mass index (BMI) [Ratio] 30.35 kg/m2 Carmen Conley Other [facility] Other 04-16-2022 15:15-0500 Body weight 71.67 kg Carmen Conley Other [facility] Other 04-16-2022 15:15-0500 Diastolic blood pressure 82 mm[Hg] Carmen Conley Other [facility] Other 04-16-2022 15:15-0500 SaO2% (BldA) [Mass fraction] 97 % Carmen Conley Other [facility] Other 04-16-2022 15:15-0500 Systolic blood pressure 136 mm[Hg] Carmen Conley Other [facility] Other Encounters Encounter Date Encounter Type Care Provider Facility Start: 05-14-2023 End: 05-14-2023 ambulatory Carmen Conley Other [facility] Other Start: 05-14-2023 Telephone encounter Carmen Conley [facility] Start: 04-16-2023 End: 04-16-2023 ambulatory ZULEIMA A FELTER Not Available Start: 04-03-2023 End: 04-03-2023 ambulatory Carmen Conley Other [facility] Other Start: 04-03-2023 Telephone encounter Carmen Conley [facility] Start: 04-02-2023 End: 04-02-2023 ambulatory Carmen Conley Other [facility] Other Start: 04-02-2023 Telephone encounter Carmen Conley [facility] Start: 03-21-2023 End: 03-21-2023 ambulatory Carmen Conley Other [facility] Other Start: 03-21-2023 Office outpatient vi sit 15 minutes Carmen Conley [facility] Start: 03-21-2023 Telephone encounter Carmen Conley [facility] Start: 03-04-2023 End: 03-04-2023 ambulatory ZULEIMA A FELTER Not Available Start: 02-06-2023 End: 02-06-2023 ambulatory Carmen Conley Other [facility] Other Start: 02-06-2023 Telephone encounter Carmen Conley [facility] Start: 02-01-2023 End: 02-01-2023 ambulatory Carmen Conley Other [facility] Other Start: 02-01-2023 Telephone encounter Carmen Conley [facility] Start: 01-24-2023 End: 01-24-2023 ambulatory Carmen Conley Other [facility] Other Start: 01-24-2023 Office outpatient vi sit 15 minutes Carmen Conley [facility] Start: 01-17-2023 End: 01-17-2023 ambulatory Carmen Conley Other [facility] Other Start: 01-17-2023 Telephone encounter Carmen Conley [facility] Start: 01-01-2023 End: 01-01-2023 ambulatory Carmen Conley Other [facility] Other Start: 01-01-2023 Telephone encounter Carmen Conley [facility] Start: 12-28-2022 End: 12-28-2022 ambulatory Carmen Conley Other [facility] Other Start: 12-28-2022 Patient encounter procedure Carmen dumont [facility] Start: 10-04-2022 End: 10-04-2022 ambulatory Carmen Conley Other [facility] Other Start: 10-04-2022 Telephone encounter Carmen Conley [facility] Start: 08-09-2022 End: 08-09-2022 ambulatory Carmen Conley Other [facility] Other Start: 08-09-2022 Telephone encounter Carmen Conley [facility] Start: 08-08-2022 Telephone encounter Carmen Conley [facility] Start: 08-08-2022 End: 08-09-[address] CARMEN CONLEY [facility] Other Start: 08-07-2022 End: 08-07-2022 ambulatory Carmen Conley Other [facility] Other Start: 08-07-2022 Office outpatient vi sit 15 minutes aCrmen Conley [facility] Start: 07-31-2022 End: 07-31-2022 ambulatory Carmen Conley Other [facility] Other Start: 07-31-2022 Telephone encounter Carmen Conley [facility] Start: 07-24-2022 End: 07-24-2022 ambulatory Carmen Conley Facility:[facility] Start: 07-02-2022 End: 07-03-[address] CARMEN CONLEY Facility: Start: 06-20-2022 End: 06-20-2022 ambulatory Carmen Conley Other [facility] Other Start: 06-20-2022 Office outpatient vi sit 10 minutes Carmen Conley [facility] Start: 06-14-2022 End: 06-14-2022 ambulatory Carmen Conley Other [facility] Other Start: 06-14-2022 Telephone encounter Carmen Conley [facility] Start: 06-12-2022 Office outpatient vi sit 15 minutes Carmen Conley [facility] Start: 06-12-2022 End: 06-13-[address] CARMEN CONLEY [facility] Other Start: 05-10-2022 End: 05-10-2022 ambulatory Carmen Conley Other [facility] Other Start: 05-10-2022 Office outpatient vi sit 15 minutes Carmen Conley [facility] Start: 05-10-2022 Telephone encounter Carmen Conley [facility] Start: 05-03-2022 End: 05-03-2022 ambulatory Carmen Conley Other [facility] Other Start: 05-03-2022 Telephone encounter Carmen Conley [facility] Start: 04-23-2022 End: 04-24-[address] CARMEN CONLEY Facility: Start: 04-20-2022 End: 04-20-2022 ambulatory Carmen Conley Other [facility] Start: 04-20-2022 Office outpatient vi sit 25 minutes Carmen Conley [facility] Start: 04-17-2022 End: 04-17-2022 ambulatory Carmen Conley Other [facility] Start: 04-17-2022 Telephone encounter Carmen Conley [facility] Start: 04-16-2022 End: 04-16-2022 ambulatory Carmen Conley Other [facility] Other Start: 04-16-2022 Office outpatient vi sit 25 minutes Carmen MCCLAIN [facility] Start: 04-12-2022 End: 04-13-[address] CARMEN CONLEY Facility:[facility] Start: 01-05-2022 End: 01-06-[address] CARMEN CONLEY Facility:[facility] Start: 11-26-2021 End: 11-26-[address] CARMEN CONLEY Facility:[facility] Start: 11-08-2021 End: 11-08-[address] CHRISTIAN WHITE Facility:[facility] Start: 08-17-2021 End: 08-18-[address] CARMEN CONLEY Facility:[facility] Start: 08-11-2021 Telephone encounter Mehrdad robledo MD Work Phone: [facility] Comment on above: Appointment Start: 09-21-2020 End: 09-21-2020 Subsequent hospital visit by physician Mri [facility] (Lg Bore/1.5t) Radiology MRI Comment on above: Thrombocytopenia (HC C) [D69.6] Procedures Date Procedure Procedure Detail Performing Clinician Start: 09-30-2020 Adult depression screening assessment Mehrdad Aguilar MD Work Phone: Start: 09-27-2020 Lipid 1996 panel - S mary or Plasma Mri Bore/1.5t) Start: 09-21-2020 Mri abdomen w/o & w/contrast material Mac Perez APRN.CNP Work Phone: Plan of Treatment Date Care Activity Detail Author Start: 09-27-2025 Lipid 1996 panel - S mary or Plasma Lipid Screening [facility] Start: 09-27-2025 LIPID SCREEN LIPID SCREEN [facility] Start: 09-28-2023 DIABETES SCREEN DIABETES SCREEN [facility] Start: 09-28-2023 Diabetes Screening Diabetes Screenin g [facility] Start: 12-07-2022 Influenza vaccination Influenza Vacc ine (#1) [facility] Start: 04-08-2022 Advance Directive Discussion Advance Directive Discussion [facility] Start: 04-08-2022 Depression Assessment Depression Ass essment [facility] Start: 12-07-2021 Influenza vaccination INFLUENZA (Sea son Ended) [facility] Start: 09-30-2021 Adult depression scr eening assessment DEPRESSION SCREENING [facility] Start: 04-08-2021 ADVANCE DIRECTIVE DISCUSSION ADVANCE DIRECTIVE DISCUSSION [facility] Start: 02-17-2020 Pneumococcal Vaccine : 65+ (3 - PPSV23 or PCV20) Pneumococcal Vaccine: 65+ (3 - PPSV23 or PCV20) [facility] Start: 01-07-2016 PNEUMOVAX AGE 65 AND OVER WITH 5YR LOOKBACK (#1) PNEUMOVAX AGE 65 AND OVER WITH 5YR LOOKBACK (#1) [facility] Start: 03-31-2015 SHINGRIX VACCINE (2 of 3) SHINGRIX V ACCINE (2 of 3) [facility] Start: 2014 BONE DENSITY BONE DENSITY [facility] Start: 2014 Bone Density Screening Bone Density Screening [facility] Start: 2009 RSV Vaccine (1 - 1-d ose 60+ series) RSV Vaccine (1 - 1-dose 60+ series) [facility] Start: 1994 COLOGUARD (FIT-DNA) COLOGUARD (FIT-D NA) [facility] Start: 1994 Colonoscopy COLONOSCOPY [facility] Start: 1994 COLORECTAL CANCER SCREENING COLORECTAL CANCER SCREENING [facility] Start: [address] COLONOGRAPHY [facility] Start: 1994 FECAL OCCULT BLOOD FECAL OCCULT BLOO D [facility] Start: 1994 SIGMOIDOSCOPY SIGMOIDOSCOPY [facility] Start: 1989 Mammography [facility] Start: 1968 HEPATITIS B (1 of 3 - Risk 3-dose series) HEPATITIS B (1 of 3 - Risk 3-dose series) [facility] Start: 1968 Urine microalbumin profile [facility] Start: 08-04-1967 HEPATITIS C SCREENING HEPATITIS C SC [facility] Start: 1954 COVID-19 VACCINE (1) COVID-19 VACCIN E (1) [facility] Start: 1950 HEPATITIS A (1 of 2 - Risk 2-dose series) HEPATITIS A (1 of 2 - Risk 2-dose series) [facility] Start: 02-02-1950 Covid-19 Vaccine (#1) Covid-19 Vacci ne (#1) [facility] Immunizations Immunization Date Immunization Notes Care Provider Fa cility 12-28-2022 pneumococcal polysaccharide vaccine, 23 valent Carmen Yael Other [facility] Other 12-28-2022 influenza, high dose seasonal, preservative-free Carmen Yael Other [facility] 07-04-2020 COVID-19 Vaccine Moderna - Documentation Purposes Only Carmen Yael Other [facility] 01-07-2020 influenza, high dose seasonal, preservative-free Mehrdad Aguilar MD Work Phone: [facility] 01-07-2020 influenza virus vaccine, unspecified formulation Mri Bore/1.5t) [facility] 11-27-2019 influenza virus vaccine, split virus (incl. purified surface antigen) Carmen Yael Other [facility] Other 01-06-2019 influenza, high dose seasonal, preservative-free Mehrdad Aguilar MD Work Phone: [facility] 01-01-2019 influenza virus vaccine, split virus (incl. purified surface antigen) Carmen Yeal Other [place] [employer] Other 01-01-2019 Seasonal trivalent influenza vaccine, adjuvanted, preservative free Mehrdad Aguilar MD Work Phone: [facility] 01-13-2018 influenza nasal, unspecified formulation Mehrdad Aguilar MD Work Phone: [facility] 12-17-2017 influenza, high dose seasonal, preservative-free Mehrdad Aguilar MD Work Phone: [facility] 02-05-2017 influenza, high dose seasonal, preservative-free Mehrdad Aguilar MD Work Phone: [facility] 04-09-2016 influenza, injectabl e, quadrivalent, preservative free Mehrdad Aguilar MD Work Phone: [facility] 03-05-2016 influenza, high dose seasonal, preservative-free Mehrdad Aguilar MD Work Phone: [facility] 02-16-2015 influenza, high dose seasonal, preservative-free Mehrdad Aguilar MD Work Phone: [facility] 02-16-2015 pneumococcal conjuga te vaccine, 13 valent Mehrdad Aguilar MD Work Phone: [facility] 02-03-2015 zoster vaccine, live Mehrdad lacey MD Work Phone: [facility] 02-02-2015 influenza, high dose seasonal, preservative-free Mehrdad Aguilar MD Work Phone: [facility] 02-02-2015 pneumococcal conjuga te vaccine, 13 valroque Aguilar MD Work Phone: [facility] 03-24-2014 influenza, injectabl e, quadrivalent, contains preservative Mehrdad Aguilar MD Work Phone: [facility] 01-06-2013 influenza, high dose seasonal, preservative-free Mehrdad Aguilar MD Work Phone: [facility] 01-06-2011 pneumococcal polysaccharide vaccine, 23 valent Mehrdad Aguilar MD Work Phone: [facility] Payers Date Payer Category Payer Self-pay 2020 Private Health Insurance [facility] INDEMNITY [id number] 2020-Present [phone] [address] [place] [address] Indemnity [id number] 2020 Private Health Insurance [facility] INDEMNITY [id number] 2020-Present [phone] [address] [place] [address] Indemnity [id number] 2006 Medicare MEDICARE RAILROA D MEDICARE RAILROAD PB ONLY [id number] 2006-Present [phone] [address] [address] [place] [address] Medicare [id number] 2006 Medicare MEDICARE MEDICAR E A AND B [id number] 2006-Present [phone] [address] [address] [place] [address] Medicare [id number] 1959 Medicare [id number] 1959 Private Health Insurance [id number] 1949 Unknown [id number] [id number]. 2.593 1949 Unknown [id number] [id number]. 2.593 1949 Unknown [id number] [id number]. 2.593 1949 Unknown [id number] [id number]. 2.593 1949 Unknown [id number] [id number]. 2.593 1949 Unknown [id number] [id number]. 2.593 1949 Unknown [id number] [id number]. 2.593 1949 Unknown [id number] [id number]. 2.593 1949 Unknown [id number] [id number]. 2.593 1949 Unknown [id number] [id number]. 2.1259 1949 Unknown [id number] [id number]. 2.1259 Unknown [id number]. 2.531 Social History Date Type Detail Facility Start: 08-18-2020 Tobacco smoking status NHIS Never smoked tobacco [facility] Start: 08-18-2020 Tobacco use and exposure Smokeless tobacco non-user [facility] Start: 08-19-2020 End: 09-30-2020 Alcohol intake Ex-drinker (finding) [facility] Start: 1950 Sex Assigned At Not on file [facility] Start: 08-04-2020 End: 08-19-2020 Sex Assigned At [facility] Start: 08-04-2020 End: 08-19-2020 History of Social function [facility] National Score (1-100), lower number is lower risk Not on file [facility] Medical Equipment Procedure Code Equipment Code Equipment Original Text Equi pment Identifier Dates BD Pen Needle Na no U/F 32G X 4 MM Clinical Notes 08-19-2020 to 05-14-2023 Note Date & Type Note Facility 05-14-2023 Evaluation note Encounter Date Diagnosis Assessment Notes May, Type 2 diabetes mellitus with hyperglycemia (ICD-10 - E11.65) [facility] 12-27-2023 Evaluation note* Encounter Date Diagnosis Assessment Notes Treatment Notes Treatment Clinical Notes Mar, Type 2 diabetes mellitus with hyperglycemia (ICD-10 - E11.65) [facility] 12-26-2023 Evaluation note* Encounter Date Diagnosis Assessment Notes Treatment Notes Treatment Clinical Notes Mar, Type 2 diabetes mellitus with hyperglycemia (ICD-10 - E11.65) [facility] 12-14-2023 Evaluation note* Encounter Date Diagnosis Assessment Notes Treatment Notes Treatment Clinical Notes Mar, Panic attack (ICD-10 - F41.0) [facility] 12-14-2023 Evaluation note* Encounter Date Diagnosis Assessment Notes Treatment Notes Treatment Clinical Notes Mar, Panic attack (ICD-10 - F41.0) Reviewed [facility]. Pt requests refill that she uses sparingly. Mar, Type 2 diabetes mellitus with hyperglycemia (ICD-10 - E11.65) rybelsus 3mg #30 given to pt - next dose sent to pharmacy. Patient to continue to watch diet and increase exercise routine. Remain active as tolerated and we will continue to monitor with routine blood work. Patient is to continue with above medication as directed. , Patient to continue to watch diet and increase exercise routine. Remain active as tolerated and we will continue to monitor with routine blood work. Patient is to continue with above medication as directed. [facility] Other 10-19-2023 Evaluation note* Encounter Date Diagnosis Assessment Notes Treatment Notes Treatment Clinical Notes Jan, COVID-19 (ICD-10 - U07.1) Finish course of Paxlovid. advised to hold atorvastatin while she is taking it. Patient understands to go to ER if symptoms worsen. Jan, Dyspnea, unspecified (ICD-10 - R06.00) Discussed that steroids will increase her blood sugar. Her heart rate is elevated at this time as well steroid should improve her fatigue but it could increase her heart rate patient is aware of side effects and agrees to start at a medium dose. Also added albuterol to help with her shortness of breath. Reviewed normal chest x-ray on January 17 at [facility]. [facility] 09-22-2023 Evaluation note* Encounter Date Diagnosis Assessment Notes Treatment Notes Treatment Clinical Notes Dec, Medicare annual wellness visit, subsequent (ICD-10 - Z00.00) Personalized health advice was given to the beneficiary including a written plan for screenings discussed and provided. Advanced care planning reviewed and/or information given as requested. Additional counseling was provided here today in regards to, [ ]. The above visit was performed by [ ], under direct supervision of [ ]. Document reviewed and amended by provider signed below. Dec, Hypothyroidism (ICD-10 - E03.9) Chronic problem, check lab, continue dose. Dec, Elevated liver enzymes (ICD-10 - R74.8) check lab Dec, Type 2 diabetes mellitus with hyperglycemia (ICD-10 - E11.65) Patients A1C is well controlled at this time. Educated patient on the importance of meal content and meal timing. Patient is to have a snack at bedtime to avoid Hypoglycemic episodes. Increase daily exercise routine and watch diet. Continue with above medication and we will continue to monitor every 3 months. Dec, Dyslipidemia (ICD-10 - E78.5) Patient to continue to watch diet and increase exercise routine. Remain active as tolerated and we will continue to monitor with routine blood work. Patient is to continue with above medication as directed. Dec, Hypertension, unspecified type (ICD-10 - I10) Blood pressure remains well controlled at this time. Denies cardiac symptoms. Shows no signs or symptoms or poor control. Patient to continue with above medication and we will continue to monitor. Advised to pay attention to body and symptoms. Any developing patterns. Stay well hydrated. 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 Pt states symptoms are well controlled on present med Dec, Fibromyalgia (ICD-10 - M79.7) Dec, Other We have discuss ed the necessity of following up with PCP regularly as well as specialists, as needed. Discussed F/U with dentistry and optometry at least yearly. Discussed all preventative measures/ cancer screenings as applicable to this patient. Emphasized the importance of a reduced fat, low carb diet to promote heart health and controlled blood sugars. Reviewed social history and ensured patient is safe within the home today. Pt denies any abuse of alcohol, nicotine, caffeine or recreational drugs. I have ensured patient is of stable mental and physical health today. We have discussed appropriate F/U schedule as well as blood work and vaccinations that apply. All questions answered and patient is sent home pleased, without concerns. [facility] 06-29-2023 Evaluation note* Encounter Date Diagnosis Assessment Notes Treatment Notes Treatment Clinical Notes Sep, Type 2 diabetes mellitus with hyperglycemia (ICD-10 - E11.65) [facility] 05-03-2023 Evaluation note* Encounter Date Diagnosis Assessment Notes Treatment Notes Treatment Clinical Notes 03 May, 2023 RLQ abdominal pain (ICD-10 - R10.31) [facility] 05-02-2023 Evaluation note* Encounter Date Diagnosis Assessment Notes Treatment Notes Treatment Clinical Notes August, RLQ abdominal pain (ICD-10 - R10.31) Acute pain - assess with labs, CT. Discussed differential with pt. [facility] 03-15-2023 Evaluation note* Encounter Date Diagnosis Assessment Notes Treatment Notes Treatment Clinical Notes Jun, Fibromyalgia (ICD-10 - M79.7) Handicap placard prescription written. Reviewed medications continue as prescribed. 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 She takes trazodone at bedtime, lorazepam as needed for panic attacks, and has a prescription for tizanidine. Rather than adding more pharmaceuticals, I advise either melatonin or taking her tizanidine when she goes to bed to help her pain in the night and help her sleep better. Jun, Immune deficiency disorder (ICD-10 - D84.9) Encouraged patient to call the office that she requested to be seen at as her information was sent last week. [facility] 03-07-2023 Evaluation note* Encounter Date Diagnosis Assessment Notes Treatment Notes Treatment Clinical Notes Jun, Dysuria (ICD-10 - R30.0) Jun, Type 2 diabetes mellitus with hyperglycemia (ICD-10 - E11.65) Jun, History of sepsis (ICD-10 - Z86.19) Referral placed to Teacher Education Director as was suggested by Dr. William. [facility] 03-07-2023 Evaluation note* Encounter Date Diagnosis Assessment Notes Treatment Notes Treatment Clinical Notes Jun, Dysuria (ICD-10 - R30.0) Jun, Type 2 diabetes mellitus with hyperglycemia (ICD-10 - E11.65) Stop Januvia. Start ozempic for improved glucose control. Jun, History of sepsis (ICD-10 - Z86.19) Referral placed to Teacher Education Director as was suggested by Dr. William. [facility] 02-02-2023 Evaluation note* Encounter Date Diagnosis Assessment Notes Treatment Notes Treatment Clinical Notes May, EDU (generalized anxiety disorder) (ICD-10 - F41.1) [facility] 02-02-2023 Evaluation note* Encounter Date Diagnosis Assessment Notes Treatment Notes Treatment Clinical Notes May, Panic attack (ICD-10 - F41.0) Discussed stress, medication and health issues. Will refill med started by ER and monitor symptoms. May, Type 2 diabetes mellitus with hyperglycemia (ICD-10 - E11.65) add medication to improve glucose. Pt agrees to consider further referral if needed. [facility] 01-13-2023 Evaluation note* Encounter Date Diagnosis Assessment Notes Treatment Notes Treatment Clinical Notes Apr, Elevated liver enzym es (ICD-10 - R74.8) Will recheck. Discussed normal Hep B and Hep C tests in 2019. Discussed potential referral to GI if needed. Apr, Type 2 diabetes mellitus with hyperglycemia (ICD-10 - E11.65) agrees to hold metformin and increase ozempic to 0.5mg weekly Apr, Myalgia (ICD-10 - M79.10) Referral to rheum and appropriate labs next week Apr, Bacteremia (ICD-10 - R78.81) recheck w blood culture next week Apr, Thrombocytopenia (ICD-10 - D69.6) chronic - will recheck w CBC Apr, Acute cystitis witho ut hematuria (ICD-10 - N30.00) Finishing antibiotic tomorrow, will check that it cleared. [facility] 01-09-2023 Evaluation note* Encounter Date Diagnosis Assessment Notes Treatment Notes Treatment Clinical Notes Apr, Sepsis due to Staphylococcus (ICD-10 - A41.2) Ivelisse feels that the oral antibiotics are not strong enough. Unsure of root cause of staph sepsis/bacteremia . Admitted to [facility] for <24h. Requests referral to ID. Pt concerned that she has immune deficiency or Hep C that she has been septic in the past. Apr, Type 2 diabetes mellitus with hyperglycemia (ICD-10 - E11.65) will continue to hold metformin due to renal labs. Apr, Elevated liver enzymes (ICD-10 - R74.8) Has been to GI in the past [facility] 01-05-2023 NotePROGRESS NOTE NOTE DATE: 04/12/2022 CHIEF COMPLAINT: Generalized weakness, fatigue. HISTORY OF PRESENT ILLNESS: The patient is a 71-year-old female with a history of fibromyalgia, hypertension, dyslipidemia, hypothyroidism and diabetes, who was in her usual state of health until about two weeks ago when she started having generalized weakness and fatigue. She saw her PCP today and she reported that she had a near syncopal episode with . She has also had decreased oral intake as well as significant heartburn. She is complaining of dysuria and some diarrhea. She presented to the emergency room at the request of the emergency room physician and was noted to have a 120. She had a lactic acid of 3.1. She was noted to have a urinary tract infection and sepsis related to that. CT abdomen was done which showed a 1 cm left kidney cyst as well as cystitis. She was started on Rocephin and IV fluids and is being admitted for further evaluation. She has been vaccinated against COVID. PHYSICAL EXAM: VITAL SIGNS: Temperature is 98.5, pulse 120, secondary pulse was 90, respiratory rate 19, BP 142/75, oxygenating 95% on room air. GENERAL: The patient is alert and oriented x3. NECK: Supple. No evidence of JVD or carotid bruits. CHEST: Clear to auscultation bilaterally. HEART: Regular rate and rhythm. ABDOMEN: Soft, non-tender, non-distended. EXTREMITIES: No clubbing, cyanosis or edema LABORATORY STUDIES: Revealed small amount of leukocytes and trace ketones. Secondary lactic acid was 1.8. TSH 1.5. Troponins were negative. Chemistry panel showed mildly elevated LFTs with an ALT of 80 and AST of 45. IMPRESSION: The patient is a 71-year-old female with the above medical problems, now presenting with sepsis secondary to UTI. 1. Sepsis secondary to UTI/cystitis: Provide supportive care. Give IV fluids. Start Rocephin. 2. Increased LFTs, unclear etiology: Hold statin. 3. Generalized weakness secondary to above: PT evaluation. 4. GERD: Provide Tums and IV protonix. 5. DVT prophylaxis: Lovenox. DISPOSITION: Home when medically stable.[facility] Note PROCEDURE: XR WRIST RT MIN 3 V, XR FOREARM RT 2V COMPARISON: HISTORY: Pain of right wrist FINDINGS: BONES:No acute fracture or dislocation of the forearm or wrist. I'll degenerative changes with joint space narrowing. SOFT TISSUES:Negative. No visible soft tissue swelling. EFFUSION:None visible. OTHER: Negative. IMPRESSION: Mild degenerative changes No acute abnormality Electronically authenticated by: HAYLEY PARHAM Date: 2022-01-07 11:23[facility]10-02-2022 NotePROCEDURE: XR WRIST RT MIN 3 V, XR FOREARM RT 2V COMPARISON: HISTORY: Pain of right wrist FINDINGS: BONES:No acute fracture or dislocation of the forearm or wrist. I'll degenerative changes with joint space narrowing. SOFT TISSUES:Negative. No visible soft tissue swelling. EFFUSION:None visible. OTHER: Negative. IMPRESSION: Mild degenerative changes No acute abnormality Electronically authenticated by: HAYLEY PARHAM Date: 2022-01-07 11:23[facility]05-06-2022 Miscellaneous Notes* Telephone Encounter - Marta Valero - 08/11/2021 12:13 PM EDT Called patient to reschedule an appointment per patient she no longer see Dr. Aguilar and that she had cancelled appointments last year confirmed with patient that she would like to cancel and did notneed to reschedule. [facility] NoteHNO ID: [id number] Author: Mehrdad Aguilar MD Service: ? Author Type: Physician Type: Progress Notes Filed: 10/02/2020 5:36 PM Note Text: PATIENT NAME: Ivelisse Gee DATE: 09/30/2020 PRIMARY CARE PHYSICIAN: Carmen Conley MD OTHER PHYSICIANS: Dr. Wahl (PCP [place], [place]), Dr. Magdaleno Castillo ([facility]) Portions of this encounter note have been copied from my note from 08/19/2020 and has been updated where appropriate, and reflect my current medical decision making from today. CC: This is a 70 year old female initially referred for evaluation of thrombocytopenia, seen for scheduled follow-up. INTERIM HISTORY: The patient was initially referred for evaluation of thrombocytopenia, but a CBC obtained at the initial visit was entirely normal. 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 She was found to have normal Ig levels, but a slightly elevated kappa light chain level and a poorly defined protein which may be an M protein. She underwent further evaluation with CT scans, which revealed a suspicious lesion in her liver and possibly pancreas. A subsequent MRI of the abdomen showed no abnormalities of the pancreas, and liver changes consistent with hepatic steatosis. Clinically the patient feels well. She has had no recent fevers or signs of infection. No abdominal pain or other GI symptoms. MEDICATIONS: Current Outpatient Medications Medication Sig - metFORMIN ER (GLUCOPHAGE XR) 500 mg 24 hr tablet metformin ER 500 mg tablet,extended release 24 hr TAKE 2 TABLETS BY MOUTH TWICE A DAY - traMADol (ULTRAM) 50 mg tablet - traZODone (DESYREL) 50 mg tablet trazodone 50 mg tablet TAKE 1 TABLET BY MOUTH EVERY DAY - levothyroxine (SYNTHROID) 50 mcg tablet levothyroxine 50 mcg tablet TAKE 1 TABLET BY MOUTH DAILY - citalopram (CELEXA) 40 mg tablet citalopram 40 mg tablet TAKE 1 TABLET BY MOUTH DAILY - benazepril (LOTENSIN) 20 mg tablet benazepril 20 mg tablet TAKE 1 TABLET BY MOUTH EVERY DAY - SITagliptin (JANUVIA) 100 mg tablet Januvia 100 mg tablet One tab p.o. daily No current facility-administered medications for this visit. ALLERGIES: ALLERGIES Allergen Reactions - Sulfa (Sulfonamide * Anaphylaxis - Latex, Natural Rubb* Unknown Only bandaids PAST MEDICAL HISTORY: PAST MEDICAL HISTORY Diagnosis Date - Anemia - Cirrhosis (HCC) - Depression - Diabetes mellitus (HCC) - Elevated LFTs - Essential hypertension - Fatty liver - Fibromyalgia - Hypothyroidism - Insomnia - Liver nodule - Lung nodule - Migraine, intractable - Mixed hyperlipidemia - Osteopenia - Renal cyst - Renal mass - Thrombocytopenia (HCC) PAST SURGICAL HISTORY: PAST SURGICAL HISTORY Procedure Laterality Date - BLADDER SURGERY HX Bladder sling x2 - COLONOSCOPY GEN ANES 09/27/2016 - REMOVAL GALLBLADDER 2011 - REMOVAL OF OVARY/TUBE(S) - REPAIR ROTATOR CUFF,ACUTE Left 11/21/2016 - TONSILLECTOMY HX - TOTAL ABDOM HYSTERECTOMY 1994 FAMILY HISTORY: FAMILY HISTORY Problem Relation Age of Onset - Alzheimer's Disease Mother - Heart disease Mother - other (Lung disease) Mother - other (neoplastic) Father - Prostate Cancer Son SOCIAL HISTORY: Social History Tobacco Use - Smoking status: Never Smoker - Smokeless tobacco: Never Used Vaping Use - Vaping Use: Never used Substance Use Topics - Alcohol use: Not Currently - Drug use: Never COMPLETE REVIEW OF SYSTEMS: CONSTITUTION: Negative for pain, fatigue, weight loss, or appetite loss. EENT: Negative for mouth soreness, antibiotics use, epistaxis, visual problems, neck or facial swelling, fever/chills, bleeding gums, or hearing loss. CV: Negative for edema, calf swelling, palpitations, or chest pain. RESPIRATORY: Negative for cough, SOB, hemoptysis, or wheezing. GI: Negative for nausea/vomiting, heartburn, vomiting blood, dysphasia, diarrhea, blood in stool, constipation, early satiety, PICA, vegetarian, poor nutrition, abdominal fullness, or abdominal pain. NEUROLOGICAL: Negative for numbness/tingling, dizziness, gait disturbance, headache, speech disturbance, tremor, hemiparesis/sensory loss, or change in mental status. MUSCULOSKELETAL: Negative for joint pain, joint swelling, or proximal muscle weakness. SKIN: Negative for hair loss, bruising, nail changes, rash, itching, pallor, or jaundice. ENDO/URO: Negative for hot flashes, cold or heat intolerance, urinary frequency, urinary hesitancy, menorrhagia, or hematuria. PSYCH: Negative for anxiety, depression, or other. PHYSICAL EXAM: BP 121/54 Pulse 71 Temp 36.2 ?C (97.2 ?F) (Temporal) Resp 18 Ht 157 cm (5' 1.81 ) Wt 73.6 kg (162 lb 3.2 oz) SpO2 97% BMI 29.85 kg/m? GENERAL EXAM: Well developed/well nourished; in no acute distress. SKIN: Negative for lesions, rashes, or ulcers on the upper and lower extremities and face. Negative (more content not included)...[facility]06-16-2021 NoteHNO ID: [id number] Author: RT Nancie(R) Service: ? Author Type: Field Cane Scale Clerk Type: Progress Notes Filed: 09/21/2020 11:30 AM Note Text: Radiology Service Progress Note DATE OF SERVICE: September 21, 2020 TIME: 11:28 AM PATIENT IDENTITY VERIFICATION COMPLETED USING TWO (2) STANDARD IDENTIFIERS: Name and Date of confirmed by patient verbally. FALL SCREENING: Has the patient had 2 falls in the last year or 1 fall with injury or currently using an Ambulatory Assistive Device (Walker, Cane, Wheelchair, Crutches, etc.)? No PATIENT GENDER DATA: Female. status: : No status: NO. PATIENT RELEVANT IMPLANT DATA REVIEWED: Yes ALLERGIES: Reviewed and unchanged CONTRAST ALLERGY: NO. EXAM: MRI - CONTRAST TYPE: GROUP II PERIPHERAL IV DATA: Ambulatory: A peripheral IV was started in the Right antecubital site with a Angio cath: 22 gauge. RADIOLOGY DEPARTMENT: MR; Exam(s) Completed: Body: Liver (routine) SIGNATURE: RT Nancie(R) PATIENT NAME: Ivelisse Gee DATE: September 21, 2020 TIME: 11:28 [facility]06-16-2021 NoteHNO ID: [id number] Author: ZAYNAB [place]) Service: ? Author Type: Field Cane Scale Clerk Type: Progress Notes Filed: 09/21/2020 11:26 AM Note Text: Radiology Service Progress Note DATE OF SERVICE: September 21, 2020 TIME: 11:18 AM PATIENT IDENTITY VERIFICATION COMPLETED USING TWO (2) STANDARD IDENTIFIERS: Name and Date of confirmed by patient verbally. FALL SCREENING: Has the patient had 2 falls in the last year or 1 fall with injury or currently using an Ambulatory Assistive Device (Walker, Cane, Wheelchair, Crutches, etc.)? No PATIENT GENDER DATA: Female. status: : No status: NO. PATIENT RELEVANT IMPLANT DATA REVIEWED: Not Applicable ALLERGIES: Reviewed and unchanged CONTRAST ALLERGY: NO. EXAM: MRI - CONTRAST TYPE: GROUP II PERIPHERAL IV DATA: Ambulatory: A peripheral IV was started in the Right antecubital site with a Angio cath: 22 gauge. RADIOLOGY DEPARTMENT: MR; Exam(s) Completed: Body: Liver (routine) SIGNATURE: RT Nancie(R) PATIENT NAME: Ivelisse Gee DATE: September 21, 2020 TIME: 11:18 [facility]05-25-2021 NoteHNO ID: [id number] Author: RT Akhil(R) Service: ? Author Type: Field Cane Scale Clerk Type: Progress Notes Filed: 08/30/2020 11:31 AM Note Text: Radiology Service Progress Note PATIENT NAME: Ivelisse Gee DATE OF SERVICE: August 30, 2020 TIME: 11:30 AM PATIENT IDENTITY VERIFICATION COMPLETED USING TWO (2) IDENTIFIERS: Name and Date of confirmed by patient verbally. FALL SCREENING: Has the patient had 2 falls in the last year or 1 fall with injury or currently using an Ambulatory Assistive Device (Walker, Cane, Wheelchair, Crutches, etc.)? No PATIENT GENDER DATA: Female. status: : No status: NO. PATIENT RELEVANT IMPLANT DATA REVIEWED: Not Applicable RADIOLOGY DEPARTMENT: CT; Exam(s) Completed: Abdomen/Pelvis With IV and Oral contrast PERIPHERAL IV DATA: Site assessment: Clean,Dry and Intact, Site disposition Discontinued SIGNED BY: RT Akhil(R) August 30, 2020 11:30 [facility]05-14-2021 NoteHNO ID: [id number] Author: Mehrdad Aguilar MD Service: ? Author Type: Physician Type: Progress Notes Filed: 08/20/2020 1:40 PM Note Text: PATIENT NAME: Ivelisse Gee DATE: 08/19/2020 PRIMARY CARE PHYSICIAN: Carmen Conley MD OTHER PHYSICIANS: Dr. Wahl ((PCP [place], [place]) HPI: This is a 70 year old female referred for evaluation of thrombocytopenia. The patient apparently was initially found to have an abnormal CBC in 2017 when she was admitted to a hospital with sepsis. At that time she had mild anemia and mild thrombocytopenia, and subsequently was diagnosed with liver disease. 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 She was seen by GI (Dr. Martínez) for further evaluation. Apparently a battery of labs were obtained and she was found to have a positive TL as well as other auto-antibodies, but no specific treatment was recommended, and the patient has not been seen by rheumatology. Apparently since then she has had 2 separate bouts of infections requiring hospitalization, most recently while residing in [place] in June 2020. During her recent hospitalization labs revealed persistent thrombocytopenia with a platelet count ranging from 80-90,000. The patient is currently referred for evaluation of her abnormal CBC. Since the patient's hospitalization she started [id number] supplements including multivitamin. She has had no significant changes since then. No recent fevers or signs of infection. She denies any signs of bleeding or significant bruising. The patient does not smoke, and does not drink alcohol. MEDICATIONS: Current Outpatient Medications Medication Sig - metFORMIN ER (GLUCOPHAGE XR) 500 mg 24 hr tablet metformin ER 500 mg tablet,extended release 24 hr TAKE 2 TABLETS BY MOUTH TWICE A DAY - traMADol (ULTRAM) 50 mg tablet - traZODone (DESYREL) 50 mg tablet trazodone 50 mg tablet TAKE 1 TABLET BY MOUTH EVERY DAY - levothyroxine (SYNTHROID) 50 mcg tablet levothyroxine 50 mcg tablet TAKE 1 TABLET BY MOUTH DAILY - citalopram (CELEXA) 40 mg tablet citalopram 40 mg tablet TAKE 1 TABLET BY MOUTH DAILY - benazepril (LOTENSIN) 20 mg tablet benazepril 20 mg tablet TAKE 1 TABLET BY MOUTH EVERY DAY - SITagliptin (JANUVIA) 100 mg tablet Januvia 100 mg tablet One tab p.o. daily No current facility-administered medications for this visit. ALLERGIES: ALLERGIES Allergen Reactions - Sulfa (Sulfonamide * Anaphylaxis - Latex, Natural Rubb* Unknown Only bandaids PAST MEDICAL HISTORY: PAST MEDICAL HISTORY Diagnosis Date - Anemia - Cirrhosis (HCC) - Depression - Diabetes mellitus (HCC) - Elevated LFTs - Essential hypertension - Fatty liver - Fibromyalgia - Hypothyroidism - Insomnia - Liver nodule - Lung nodule - Migraine, intractable - Mixed hyperlipidemia - Osteopenia - Renal cyst - Renal mass - Thrombocytopenia (HCC) PAST SURGICAL HISTORY: PAST SURGICAL HISTORY Procedure Laterality Date - BLADDER SURGERY HX Bladder sling x2 - COLONOSCOPY GEN ANES 09/27/2016 - REMOVAL GALLBLADDER 2011 - REMOVAL OF OVARY/TUBE(S) - REPAIR ROTATOR CUFF,ACUTE Left 11/21/2016 - TONSILLECTOMY HX - TOTAL ABDOM HYSTERECTOMY 1994 FAMILY HISTORY: FAMILY HISTORY Problem Relation Age of Onset - Alzheimer's Disease Mother - Heart disease Mother - other (Lung disease) Mother - other (neoplastic) Father SOCIAL HISTORY: Social History Tobacco Use - Smoking status: Never Smoker - Smokeless tobacco: Never Used Substance Use Topics - Alcohol use: Not Currently - Drug use: Never COMPLETE REVIEW OF SYSTEMS: CONSTITUTION: Negative for pain, fatigue, weight loss, or appetite loss. EENT: Negative for mouth soreness, antibiotics use, epistaxis, visual problems, neck or facial swelling, fever/chills, bleeding gums, or hearing loss. CV: Negative for edema, calf swelling, palpitations, or chest pain. RESPIRATORY: Negative for cough, SOB, hemoptysis, or wheezing. GI: Negative for nausea/vomiting, heartburn, vomiting blood, dysphasia, diarrhea, blood in stool, constipation, early satiety, PICA, vegetarian, poor nutrition, abdominal fullness, or abdominal pain. NEUROLOGICAL: Negative for numbness/tingling, dizziness, gait disturbance, headache, speech disturbance, tremor, hemiparesis/sensory loss, or change in mental status. MUSCULOSKELETAL: Negative for joint pain, joint swelling, or proximal muscle weakness. SKIN: Negative for hair loss, bruising, nail changes, rash, itching, pallor, or jaundice. ENDO/URO: Negative for hot flashes, cold or heat intolerance, urinary frequency, urinary hesitancy, menorrhagia, or hematuria. PSYCH: Negative for anxiety, depression, or other. PHYSICAL EXAM: BP 130/56 Pulse 88 Temp 36.8 ?C (98.2 ?F) (Oral) Resp 16 Ht 157 cm (5' 1.81 ) Wt 74 kg (163 lb 3.2 oz) SpO2 98% BMI 30.03 kg/m? 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 documented in this encounter [facility] general Narrative - Reported* Type Description Date Medical History fibromyalgia Medical History migraine syndrome Medical History hypothyroidism Medical History depression, controlled Medical History elevated LFTS Medical History Diabetes Type 2 Medical History Hyperlipidemia Medical History bilateral knee pain Medical History recurrent insomnia Medical History essential hypertension Medical History Thrombocytopenia Medical History 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 Medical History Cyst 9mm left kidney Medical History CYst 5mm right kidney Medical History Cyst 2cm liver Medical History pancreatitis around 2010 Surgical History HYSTERECTOMY Surgical History CHOLECYSTECTOMY Surgical History BLADDER SURGERY x 3 Surgical History Colonoscopy x 2 Surgical History shoulder surgery, left X2 Surgical History tonsillectomy and adenoidectomy Hospitalization History septic shock Hospitalization History Sepsis 07/07/2020 [facility] Other History general Narrative - Reported* Type Description Date Medical History fibromyalgia Medical History migraine syndrome Medical History hypothyroidism Medical History depression, controlled Medical History elevated LFTS Medical History Diabetes Type 2 Medical History Hyperlipidemia Medical History bilateral knee pain Medical History recurrent insomnia Medical History essential hypertension Medical History Thrombocytopenia Medical History 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 Medical History Cyst 9mm left kidney Medical History CYst 5mm right kidney Medical History Cyst 2cm liver Medical History pancreatitis around 2010 Surgical History HYSTERECTOMY with B SPO Surgical History CHOLECYSTECTOMY Surgical History BLADDER SURGERY x 3 Surgical History Colonoscopy x 2 Surgical History shoulder surgery, left X2 Surgical History tonsillectomy and adenoidectomy Hospitalization History septic shock Hospitalization History Sepsis 07/07/2020 [facility] Other [facility] general Narrative - Reported* Type Description Date Medical History fibromyalgia Medical History migraine syndrome Medical History hypothyroidism Medical History depression, controlled Medical History elevated LFTS Medical History Diabetes Type 2 Medical History Hyperlipidemia Medical History bilateral knee pain Medical History recurrent insomnia Medical History essential hypertension Medical History Thrombocytopenia Medical History 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 Medical History Cyst 9mm left kidney Medical History CYst 5mm right kidney Medical History Cyst 2cm liver Medical History pancreatitis around 2010 Surgical History HYSTERECTOMY with B SPO Surgical History CHOLECYSTECTOMY Surgical History BLADDER SURGERY x 3 Surgical History Colonoscopy x 2 Surgical History shoulder surgery, left X2 Surgical History tonsillectomy and adenoidectomy Hospitalization History septic shock Hospitalization History Sepsis 07/07/2020 Hospitalization History Covid positive 01/17/23 [facility] Other Summary Purpose Family History No Family History Records FoundNo Family History Records FoundNo Family History Records FoundNo Family History Records FoundNo Family History Records Found Advance Directives No Advanced Directives Records FoundNo Advanced Directives Records FoundNo Advanced Directives Records FoundNo Advanced Directives Records FoundNo Advanced Directives Records Found Reason for Referral Reason CLOSED Dr. Callahan - will scan in reports from [facility] last week Diagnosis 1 Sepsis due to Staphy lococcus (A41.2) Referral Organization [facility] Referring Provider First Name Carmen Referring Provider Last Name Conley Referring Provider Specialty [facility] [place] Referred Organization [facility] Infectious Dis ease Referred Provider Blayne Callahan Referred Address [address] [place],[address] Referred Provider Specialty Infectious D isease Referral Priority Routine General Notes Itzel Parekh 03:10:38 PM >received today, labs, and notes attached, locked and faxed P2P Itzel Parekh 04/18/2022 10:54:24 AM >per Dr. Callahan pt does not need to be seen to treat Reason 06/11/22 Labs pend ing, has fibro. strong family history of autoimmune issues. Diagnosis 1 Myalgia (M79.10) Referral Organization [facility] Referring Provider First Name Carmen Referring Provider Last Name Yael Referring Provider [facility] [place] Referred Organization [facility] Referred Provider Elisa Gomez Referred Address [address] [place],[address] Referred Provider Specialty Rheumatology Referral Priority Routine Referral Appointment Date 2022-06-11 General Notes Itzel Parekh 03:45:56 PM >received today, labs pending. ins card attached, notes locked and referral faxed Itzel Parekh 04/27/2022 10:22:51 AM >faxed first attempt letter Itzel Parekh 04/30/2022 02:17:43 PM >received fax with appt date and time Reason 06/28/22 Pt wants to see the [employer] in [facility] - phone is [phone]. Please send same info that was sent to the referral for Dr. Gomez. Thanks Diagnosis 1 Dysuria (R30.0) Referral Organization [facility] Referring Provider First Name Carmen Referring Provider Last Name Conley Referring Provider Specialty [facility] Referred Organization Unknown Facility Referred Provider Specialty Immunology Referral Priority Routine Referral Appointment Date 2022-06-28 General Notes Itzel Parekh 11:00:51 AM >received today, attachments made, notes locked, referral faxed Itzel Parekh 06/20/2022 01:01:04 PM >faxed first attempt letter Itzel Parekh 06/21/2022 08:59:47 AM >RECEIVED FAX WITH APPT DATE AND TIME Clinical Notes p: [phone] f: [phone] Reason 06/28/22 Pt wants to see the [employer] in [facility] - phone is [phone]. Please send same info that was sent to the referral for Dr. Gomez. Thanks Diagnosis 1 Dysuria (R30.0) Referral Organization [facility] man[facility] Referring Provider First Name Carmen Referring Provider Last Name Yael Referring Provider Specialty [facility] Referred Organization Unknown Facility Referred Provider Specialty Immunology Referral Priority Routine Referral Appointment Date 2022-06-28 General Notes Itzel Parekh 11:00:51 AM >received today, attachments made, notes locked, referral faxed Itzel Parekh 06/20/2022 01:01:04 PM >faxed first attempt letter Itzel Parekh 06/21/2022 08:59:47 AM >RECEIVED FAX WITH APPT DATE AND TIME Itzel Parekh 06/29/2022 11:12:51 AM >FAXED FIRST REQUEST FOR NOTES Itzel Parekh 07/03/2022 08:42:09 AM >Received notes and sent to Dr. Carmen Conley for review. Closing referral Clinical Notes p: [phone] f: [id number] Additional Source Comments INFORMATION SOURCE (unrecogn ized section and content) DATE CREATED AUTHOR 02/05/2021 [facility] DATE CREATED AUTHOR AUTHOR'S ORGANIZ ATION 08/12/2021 [facility] DATE CREATED AUTHOR AUTHOR'S ORGANIZ ATION 07/28/2022 [facility] DATE CREATED AUTHOR AUTHOR'S ORGANIZ ATION 08/16/2022 [facility] DATE CREATED AUTHOR AUTHOR'S ORGANIZ ATION 04/17/2023 [facility] EPIC Source Comments (unrecognize d section and content) In the event this informatio n is protected by the Federal Confidentiality of Alcohol and Drug Abuse Patient Records regulations: The Federal rules restrict any use of the information to criminally investigate or prosecute any alcohol or drug abuse patient.[facility] the event this information is protected by the Federal Confidentiality of Alcohol and Drug Abuse Patient Records regulations: The Federal rules restrict any use of the information to criminally investigate or prosecute any alcohol or drug abuse patient.[facility] Reason for Visit (unrecogniz ed section and content) message Reason Comments Appointment Care Teams (unrecognized sec tion and content) Farm Loan 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 This clinical summary was aggregated from multiple sources. Caution should be exercised in using it in the provision of clinical care. This summary normalizes information from multiple sources, and as a consequence, information in this document may materially change the coding, format and clinical context of patient data. In addition, data may be omitted in some cases. CLINICAL DECISIONS SHOULD BE BASED ON THE PRIMARY CLINICAL RECORDS. [facility] [employer] [facility]. provides no warranty or guarantee of the accuracy or completeness of information in this document.
--- NOTE | 2023-05-25 10:54 | XR_ITS ---
The [address] [address] Patient Name: EDWARD GEE MRN: [id number] date: 1950 Sex: F Assigned Patient Location: ER Current Patient Location: ER Accession/Order Number: [id number] Exam Date: 05/25/2023 11:20 Report Date: 05/25/2023 11:57 At the request of: NAZ MARTINEZ Procedure: XR chest 1V EXAM: XR chest 1V HISTORY: Chest pain. COMPARISON: Chest radiograph dated 02/01/2023. TECHNIQUE: AP chest radiograph performed. FINDINGS: The trachea is midline. The heart size is normal. Stable mild atheromatous calcification at the aortic arch. There is slightly more prominent moderate elevation of the right hemidiaphragm. There is no consolidation or infiltrate, pleural effusion or urinary vascular congestion. There is no pneumothorax. The bony structures are osteopenic. There is stable resection of the distal left clavicle and a suture anchor within the left humeral head. There is no acute osseous abnormality. XR/XR chest 1V IMPRESSION: Slightly more prominent, moderate elevation of the right hemidiaphragm. There is otherwise no acute cardiopulmonary process. Electronically authenticated by: ALAN COLON Date: 05/25/2023 11:57
--- NOTE | 2023-05-25 10:54 | ECG_ITS ---
The [facility] Test Date: 2023-05-25 Pat Name: EDWARD GEE Department: Room: - Gender: Female Claim Approver: : 1950 Requested By: CARMEN CONLEY Order Number: [id number] Reading MD: CHRISTIAN WHITE Measurements Intervals [place] Rate: 106 P: 52 CA: 144 QRS: -88 QRSD: 80 T: 90 QT: 270 QTc: 332 Interpretive Statements 1120 Sinus tachycardia 2420 RSR (QR) in lead V1/V2, consistent with right ventricular conduction delay 3113 Cannot rule out anterior myocardial infarction, probably old 7200 Abnormal left axis deviation 8102 Low QRS voltage in chest leads 8305 Short QTc interval 9150 abnormal ECG Electronically Signed On 05-26-2023 7:37:02 EST by CHRISTIAN WHITE
--- NOTE | 2023-05-25 10:55 | ED.CHESTPAI1 ---
HPI - Chest Pain General Chief Complaint: Chest Pain Stated Complaint: BACK PAIN Time Seen by Provider: 05/25/23 10:43 Source: patient Mode of arrival: walk-in History of Present Illness HPI narrative: 72-year-old female presents for chest pain. It started in her right shoulder blade and it wraps around across her upper chest. No abdominal pain or vomiting. She states that she had pain similar to this once when she had pancreatitis. No trauma fever or unusual activity. No cough or shortness of breath. It has been continuous and she has had it for the last day or 2. Related Data Home Medications Medication Instructions Recorded Confirmed benazepril 20 mg tablet 20 mg PO DAILY 01/17/23 05/25/23 citalopram 40 mg tablet (Celexa) 40 mg PO DAILY 01/17/23 05/25/23 levothyroxine 50 mcg tablet 50 mcg PO DAILY 01/17/23 05/25/23 (Euthyrox) trazodone 50 mg tablet 50 mg PO DAILY 01/17/23 05/25/23 atorvastatin 10 mg tablet 10 mg PO QPM 05/25/23 05/25/23 semaglutide 14 mg tablet (Rybelsus) 14 mg PO DAILY 05/25/23 05/25/23 Previous Rx's Medication Instructions Recorded esomeprazole magnesium 20 mg 20 mg PO DAILY 28 days #28 caps 05/25/23 capsule,delayed release (Nexium) Allergies Allergy/AdvReac Type Severity Reaction Status Date / Time adhesive tape Allergy Unknown Verified 01/17/23 05:32 Sulfa (Sulfonamide Allergy Unknown Verified 01/17/23 05:32 Antibiotics) Review of Systems ROS Narrative A ten point review of systems is negative except as noted above. PFSH PFSH Social History Smoking status: Never smoker Exam Narrative Exam Narrative: Nurses note and vital signs reviewed and patient is not hypoxic. General: The patient appears well and in no apparent distress. Patient is resting comfortably on cart. Skin: Warm, dry, no pallor noted. There is no rash noted. Head: Normocephalic, atraumatic Eye: Normal conjunctiva, no drainage Ears, Nose, Mouth, and Throat: oral mucosa is moist. Nares patent. Cardiovascular: Regular Rate and Rhythm, mildly tachycardic Respiratory: Patient is in no distress, no accessory muscle use, lungs are clear to auscultation, no wheezing, rales or rhonchi Back: non-tender GI: Soft and nontender Musculoskeletal: The patient has no evidence of calf tenderness, no pitting edema, symmetrical pulses noted bilaterally Neurological: A&O, normal speech Psychiatric: Cooperative Constitutional Vital Signs, click to edit/add: Last Vital Signs Temp 97.7 F 05/25/23 10:45 Pulse 80 05/25/23 12:40 Resp 14 05/25/23 12:40 BP 117/75 05/25/23 12:40 Pulse Ox 94 L 05/25/23 12:40 Course Vital Signs Vital signs: Vital Signs Temperature 97.7 F 05/25/23 10:45 Pulse Rate 103 H 05/25/23 10:45 Respiratory Rate 22 05/25/23 10:45 Blood Pressure 169/84 H 05/25/23 10:45 Pulse Oximetry 97 05/25/23 10:45 Temperature 97.7 F 05/25/23 10:45 Pulse Rate 80 05/25/23 12:40 Respiratory Rate 14 05/25/23 12:40 Blood Pressure 117/75 05/25/23 12:40 Pulse Oximetry 94 L 05/25/23 12:40 MDM - Chest Pain MDM Narrative Medical decision making narrative: Her workup including 2 troponin levels is negative. D-dimer normal. I suspect that her symptoms might be due to the increase in the dose of the Rybelsus that she has been on recently. She is going to talk to her prescribing doctor. Treatment diagnosis and follow-up were discussed with the patient. Differential Diagnosis Differential diagnosis: Likely pneumothorax, unstable angina pectoris, atypical chest pain, st elevation myocardial infarction, costochondritis, chest pain and other (Medication side effect, GE reflux) Lab Data Attestation: I reviewed the patient's lab results. Labs: Lab Results 05/25/23 05/25/23 Range/Units 10:54 12:34 WBC 8.1 (4.0-11.0) 10^3/uL RBC 4.52 (4.20-5.40) 10^6/uL Hgb 14.2 (12.0-16.0) g/dL Hct 42.2 (36.0-48.0) % MCV 93.4 (81.0-99.0) fL MCH 31.4 (26.7-34.0) pg MCHC 33.6 (29.9-35.2) g/dL RDW 12.1 (11.0-15.0) % Plt Count 169 (150-450) 10^3/uL MPV 9.6 (9.5-13.5) fL Neut % (Auto) 51.2 (43.0-75.0) % Lymph % (Auto) 42.9 (20.5-60.0) % Walton % (Auto) 4.1 (1.7-12.0) % Eos % (Auto) 1.1 (0.9-7.0) % Baso % (Auto) 0.5 (0.2-2.0) % Neut # (Auto) 4.1 (1.4-6.5) 10^3/uL Lymph # (Auto) 3.5 (1.2-3.8) 10^3/uL Walton # (Auto) 0.3 (0.3-0.8) 10^3/uL Eos # (Auto) 0.1 (0.0-0.7) 10^3/uL Baso # (Auto) 0.0 (0.0-0.1) 10^3/uL Abs Immat Gran (auto) 0.02 (0.00-0.03) 10^3/uL Imm/Tot Granulo (auto) 0.2 (0.0-0.5) % D-Dimer 0.23 (<=0.59) mg/L FEU Sodium 140 (136-145) mmol/L Potassium 3.6 (3.5-5.1) mmol/L Chloride 101 (98-107) mmol/L Carbon Dioxide 26.2 (21.0-32.0) mmol/L Anion Gap 16.4 BUN 12.0 (7.0-18.0) mg/dL Creatinine 1.00 (0.55-1.02) mg/dL Est GFR ( Amer) >60 (>=60) Est GFR (Non-Af Amer) 54 L (>=60) BUN/Creatinine Ratio 12.0 Glucose 274 H (74-106) mg/dL Calcium 9.9 (8.5-10.1) mg/dL Total Bilirubin 0.7 (0.2-1.0) mg/dL Direct Bilirubin 0.1 (0.0-0.2) mg/dL AST 21 (15-37) U/L ALT 47 (14-59) U/L Alkaline Phosphatase 106 (46-116) U/L Troponin I High Sens <4.0 L 4.6 (4.0-51.3) pg/mL Total Protein 8.3 H (6.4-8.2) g/dL Albumin 3.9 (3.4-5.0) g/dL Globulin 4.4 g/dL Albumin/Globulin Ratio 0.9 Amylase 35 (25-115) U/L Lipase 55.0 (16.0-77.0) U/L Imaging Data Chest x-ray: Radiologist's impression: ITS Impressions Chest X-Ray 05/25/23 10:54 IMPRESSION: Slightly more prominent, moderate elevation of the right hemidiaphragm. There is otherwise no acute cardiopulmonary process. Electronically authenticated by: ALAN COLON Date: 05/25/2023 11:57 ECG Data Attestation: I personally reviewed and interpreted this ECG as follows: (EKG on my interpretation shows a sinus rhythm with a rate of 106. No acute changes.) Heart Score History: Slightly/Non-Suspicious ECG: Normal Age: >65 years Risk Factors: 1 or 2 Risk Factors Troponin: <Normal Limit Total Heart Score Recommendations & Risks:: 3 Discharge Plan Discharge Chief Complaint: Chest Pain Clinical Impression: Chest pain Patient Disposition: Home, Self-Care Time of Disposition Decision: 13:45 Condition: Good Mode of Transportation: Private Vehicle Prescriptions / Home Meds: New esomeprazole magnesium [Nexium] 20 mg capsule,delayed release(DR/EC) 20 mg PO DAILY 28 Days Qty: 28 0RF No Action trazodone 50 mg tablet 50 mg PO DAILY benazepril 20 mg tablet 20 mg PO DAILY citalopram [Celexa] 40 mg tablet 40 mg PO DAILY levothyroxine [Euthyrox] 50 mcg tablet 50 mcg PO DAILY atorvastatin 10 mg tablet 10 mg PO QPM Rybelsus 14 mg tablet 14 mg PO DAILY Instructions: Chest Pain (ED) Stand Alone Forms: Portal Instructions Referrals: Flor Mosqueda MD [Primary Care Provider] - 1 week
[2023-05-25 11:04] LABS: Basophils Percent Auto 0.5 % (0.2-2.0); Eosinophils Absolute Auto 0.1 10^3/uL (0.0-0.7); Eosinophils Percent Auto 1.1 % (0.9-7.0); Hematocrit 42.2 % (36.0-48.0); Hemoglobin 14.2 g/dL (12.0-16.0); Immature Granulocytes Abs Auto 0.02 10^3/uL (0.00-0.03); Immature Granulocytes Pct Auto 0.2 % (0.0-0.5); Lymphocytes Absolute Auto 3.5 10^3/uL (1.2-3.8); Lymphocytes Percent Auto 42.9 % (20.5-60.0); Mean Corpuscular HGB Conc 33.6 g/dL (29.9-35.2); Mean Corpuscular Hemoglobin 31.4 pg (26.7-34.0); Mean Corpuscular Volume 93.4 fL (81.0-99.0); Mean Platelet Volume 9.6 fL (9.5-13.5); Monocytes Absolute Auto 0.3 10^3/uL (0.3-0.8); Monocytes Percent Auto 4.1 % (1.7-12.0); Neutrophils Absolute Auto 4.1 10^3/uL (1.4-6.5); Neutrophils Percent Auto 51.2 % (43.0-75.0); Platelet Count 169 10^3/uL (150-450); Red Blood Count 4.52 10^6/uL (4.20-5.40); Red Cell Distribution Width 12.1 % (11.0-15.0); White Blood Count 8.1 10^3/uL (4.0-11.0)
[2023-05-25 11:15] LABS: D Dimer 0.23 mg/L FEU (<=0.59)
[2023-05-25 11:19] LABS: Alanine Aminotransferase 47 U/L (14-59); Albumin Globulin Ratio 0.9; Albumin Level 3.9 g/dL (3.4-5.0); Alkaline Phosphatase 106 U/L (46-116); Amylase 35 U/L (25-115); Aspartate Amino Transferase 21 U/L (15-37); Bilirubin Direct 0.1 mg/dL (0.0-0.2); Bilirubin Total 0.7 mg/dL (0.2-1.0); Globulin 4.4 g/dL; Total Protein 8.3 g/dL (6.4-8.2)
[2023-05-25 11:22] LABS: Anion Gap 16.4; Calcium 9.9 mg/dL (8.5-10.1); Carbon Dioxide 26.2 mmol/L (21.0-32.0); Chloride 101 mmol/L (98-107); Estimated GFR (African America >60 (>=60); Estimated GFR (Non-African Ame 54 (>=60); Glucose 274 mg/dL (74-106); Potassium 3.6 mmol/L (3.5-5.1); Sodium 140 mmol/L (136-145); Troponin I High Sensitivity <4.0 pg/mL (4.0-51.3)
[2023-05-25] MEDS: NITROGLYCERIN 0.4 MG BOTTLE SL (12:08)
[2023-05-25] MEDS: ASPIRIN 81 MG TAB.CHEW 324 MG PO (12:08)
[2023-05-25] MEDS: LORAZEPAM 2 MG/ML 1 ML VIAL 0.5 MG IV (12:33)
[2023-05-25 13:01] LABS: Troponin I High Sensitivity 4.6 pg/mL (4.0-51.3)
== END 2023-05-25 13:55 | disposition home or self-care (01) ==
PROVIDERS: Emergency Provider Emergency Medicine; PCP Family Medicine
DX: R07.9 Chest pain, unspecified (principal); Z79.899 Other long term (current) drug therapy; Z79.890 Hormone replacement therapy
CPT/HCPCS: 36415; 71045; 80048; 80076; 82150; 83690; 84484; 85025; 85378; 93005; 96374; 99285; J2060

== ENCOUNTER 2023-09-18 12:41 | Outpatient (OUT) | payer MEDICARE, OTHER, SELFPAY ==
--- NOTE | 2023-09-18 12:54 | XR_ITS ---
[place] [id number] Patient Name: EDWARD GEE MRN: [id number] date: 1950 Sex: F Assigned Patient Location: [facility] Current Patient Location: [facility] Accession/Order Number: [id number] Exam Date: 09/18/2023 13:00 Report Date: 09/18/2023 21:44 At the request of: CARMEN CONLEY Procedure: XR lumbar spine 2-3V EXAM: XR lumbar spine 2-3V CLINICAL INDICATION: lumbar back pain with radiculopathy COMPARISON: None TECHNIQUE: 3 views of the lumbar spine obtained FINDINGS: There are 5 nonrib-bearing lumbar-type vertebra. Mild dextroconvex curvature of the lumbar spine. Vertebral body heights are maintained without evidence for acute fracture. No subluxations. Mild to moderate multilevel degenerative changes of the lumbar spine, worst at L5-S1. XR/XR lumbar spine 2-3V IMPRESSION: Mild to moderate multilevel degenerative changes of the lumbar spine without evidence for acute fracture Electronically authenticated by: GOOD ORDONEZ Date: 09/18/2023 21:44
--- NOTE | 2023-09-18 12:54 | XR_ITS ---
[address] [address] Patient Name: EDWARD GEE MRN: [id number] date: 1950 Sex: F Assigned Patient Location: [facility] Current Patient Location: [facility] Accession/Order Number: [id number] Exam Date: 09/18/2023 13:00 Report Date: 09/18/2023 14:40 At the request of: CARMEN CONLEY Procedure: XR knee RT 4V PROCEDURE: XR knee RT 4V COMPARISON: None. HISTORY: right knee pain FINDINGS: BONES:No acute fracture or dislocation. Mild enthesopathic spurring of the patella at the quadriceps insertion SOFT TISSUES:Negative. No visible soft tissue swelling. EFFUSION:None visible. OTHER: Negative. XR/XR knee RT 4V IMPRESSION: No acute abnormality Electronically authenticated by: HAYLEY PARHAM Date: 09/18/2023 14:40
== END 2023-09-18 12:42 | disposition home or self-care (01) ==
LOC: RAD 12:45
PROVIDERS: PCP Family Medicine; Visit Provider Family Medicine
DX: M25.561 Pain in right knee (principal); M54.16 Radiculopathy, lumbar region; M51.36 Other intervertebral disc degeneration, lumbar region
CPT/HCPCS: 72100; 73564

== ENCOUNTER 2023-10-28 12:27 | Outpatient (OUT) | payer MEDICARE, OTHER, SELFPAY ==
--- NOTE | 2023-10-28 14:22 | P.CN_ITS ---
Consult Note: HPI Data of Consult Patient: new to practice Consult date: 10/28/23 Requesting Physician: Mary Sheth NP Primary Care Provider: Flor Mosqueda MD Consult Narrative Reason for consult: low back, right leg pain Narrative: 73yof who presents for evaluation. longstanding generalized pain due to fibromyalgia, but recently has noticed worsening low back pain that radiates down right leg. also has right knee pain. has engaged in a series of provider directed home exercises >6 weeks, without lasting benefits. uses muscle relaxer, benzo, trazodone, celexa. denies adverse med side effects. cc:: CC: Mary Sheth NP Review of Systems ROS Status of ROS 10 or more systems reviewed and unremark able except as noted in history and below PFSH PFSH Social History Smoking status: Never smoker Meds Home Medications and Allergies Home Medications ?Medication ?Instructions ?Recorded ?Confirmed ?Type benazepril 20 mg tablet 20 mg PO DAILY 01/17/23 10/28/23 History citalopram 40 mg tablet (Celexa) 40 mg PO DAILY 01/17/23 10/28/23 History levothyroxine 50 mcg tablet 50 mcg PO DAILY 01/17/23 10/28/23 History (Euthyrox) trazodone 50 mg tablet 50 mg PO DAILY 01/17/23 10/28/23 History atorvastatin 10 mg tablet 10 mg PO QPM 05/25/23 10/28/23 History esomeprazole magnesium 20 mg 20 mg PO DAILY 28 days #28 caps 05/25/23 10/28/23 Rx capsule,delayed release (Nexium) semaglutide 14 mg tablet (Rybelsus) 14 mg PO DAILY 05/25/23 05/25/23 History gabapentin 300 mg capsule 300 mg PO TID 10/28/23 10/28/23 History lorazepam 0.5 mg tablet (Ativan) 0.25 mg PO DAILY PRN anxiety 10/28/23 10/28/23 History metoprolol tartrate 25 mg tablet 25 mg PO DAILY 10/28/23 10/28/23 History pantoprazole 40 mg tablet,delayed 40 mg PO DAILY 10/28/23 10/28/23 History release tizanidine 4 mg capsule 4 mg PO DAILY 10/28/23 10/28/23 History Allergies Allergy/AdvReac Type Severity Reaction Status Date / Time adhesive tape Allergy Unknown Verified 01/17/23 05:32 Sulfa (Sulfonamide Allergy Unknown Verified 01/17/23 05:32 Antibiotics) Exam Narrative Exam Narrative: Psych-alert and oriented x 3. Attentive and appropriate, constitutionally n ormal, displays normal mood and affect per situation. There are no obvious deficits in memory, reasoning, or intellect.? Skin-no obvious rashes, bruising, erythema noted to the patient's area of pain.? Extremities- extremities are warm with minimal edema and palpable pulses. Lumbar-tenderness to palpation noted in the lumbar spine and paraspinal musculature. Pain is elicited with flexion, extension, and lateral rotation of the lumbar spine. Range of motion is diminished with these motions. Facet loading maneuvers are positive. Strength-noted to be unremarkable with the exception of decreased strength rated at 4 out of 5 in right quadriceps femoris, anterior tibialis. Sensory-no notable sensory deficits in the bilateral lower extremities to touch or pinprick in all dermatomal distributions with the exception to decreased sensation to the right L4, 5 dermatomal distribution Coordination remains intact.? Gait remains non-antalgic Assessment and Plan Assessment and Plan (1) Lumbar stenosis with neurogenic claudication: (2) Lumbar spondylosis: Plan 73yof who presents for evaluation. failed conservative measures, as noted. imaging reviewed, which is significant for multilevel degeneration and facet arthropathy in lumbar spine. given symptoms and imaging, would like her to undergo lumbar mri without contrast for further info. she is in agreement. meds reviewed. will trial gabapentin 300mg tid. follow up after imaging.
== END 2023-10-28 12:28 | disposition home or self-care (01) ==
LOC: PM 12:28
PROVIDERS: PCP Family Medicine; Visit Provider Nurse Practitioner
DX: M48.062 Spinal stenosis, lumbar region with neurogenic claudication (principal); M47.816 Spondylosis without myelopathy or radiculopathy, lumbar region
CPT/HCPCS: G0463

== ENCOUNTER 2023-11-05 07:28 | Outpatient (OUT) | payer MEDICARE, OTHER, SELFPAY ==
--- NOTE | 2023-11-05 | MR_ITS ---
The [address] [address] Patient Name: EDWARD GEE MRN: [id number] date: 1950 Sex: F Assigned Patient Location: MRI Current Patient Location: MRI Accession/Order Number: [id number] Exam Date: 11/05/2023 07:45 Report Date: 11/05/2023 15:49 At the request of: SILVANA FUCHS Procedure: MR lumbar spine wo con EXAMINATION: MR lumbar spine wo con HISTORY: Lumbar stenosis with neurologic claudication COMPARISON: No relevant comparison available. TECHNIQUE: A variety of imaging planes and parameters were utilized for visualization of suspected pathology. FINDINGS: For the purposes of numbering, sagittal T2 image # 8 extends from the T10 vertebral body superiorly to the S3-S4 level inferiorly. PARASPINAL AREA: Normal with no visible mass. BONES: Normal alignment with no acute fracture or spondylolisthesis CORD/CAUDA EQUINA: Normal caliber, contour, and signal intensity. DISC LEVELS: 12-L1: Moderate degenerative disc disease is present without visible neural impingement. L1-L2: Moderate degenerative disc disease is present without visible neural impingement. L2-L3: Early degenerative disc disease is present without focal protrusion or neural impingement. L3-L4: Early degenerative disc disease is present without focal protrusion or neural impingement. L4-L5: Early degenerative disc disease is present without focal protrusion or neural impingement. L5-S1: Disc collapse with endplate sclerosis. Moderate diffuse disc/osteophyte complex. Bilateral facet osteoarthropathy. No central canal stenosis. Minimal bilateral foraminal stenosis MR/MR lumbar spine wo con IMPRESSION: Degenerative changes at L5-S1 resulting in minimal bilateral foraminal stenosis Electronically authenticated by: HAYLEY PARHAM Date: 11/05/2023 15:49
--- OUTSIDE RECORDS SUMMARY | 2023-11-05 07:32 | XMS_ITS | CCD ---
Author Organization [facility] Care Team Providers Care Precision Grinder External Name Role Phone Carmen Conley MD Primary [...] CONLEY, DR CARMEN Riggins Primary Care Unavailable ROSEBORO, DR HAYLEY Martinez Consulting Unavailable CONLEY, DR CARMEN Riggins Consulting Unavailable CONLEY, DR CARMEN Riggins Primary Care Unavailable TERESITA ., MICHAEL Attending Unavailable PAM ., MR PÉREZ Consulting Unavailable TERESITA ., MICHAEL Admitting Unavailable VERA ARANA Consulting Unavailable YAEL, DR CARMEN Riggins Primary Care Unavailable PERFECTO ., DR LEANDER Riggins Consulting Unavailable PERFECTO ., DR LEANDER Riggins Attending Unavailable PERFECTO ., DR LEANDER Riggins Admitting Unavailable IVORY, DR JAZMINE Tomlinson Consulting Unavailable JOSE J ., SANTO DEWEY Consulting Unavailabl e Melina, Caro Consulting Unavailable HOLLIS, MARÍA Consulting Unavailable BALL, DR GONZALES Consulting Unavailable BALL, DR GONZALES Attending Unavailable CINDY, DR GONZALES Admitting Unavailable CONLEY, DR CARMEN Riggins Primary Care Unavailable CONLEY, DR CARMEN Riggins Attending Unavailable CONLEY, DR CARMEN Riggins Admitting Unavailable CONLEY, DR CARMEN Riggins Primary Care Unavailable CONLEY, DR CARMEN Riggins Consulting Unavailable CONLEY, DR CARMEN Riggins Attending Unavailable CONLEY, DR CARMEN Rgigins Admitting Unavailable CONLEY, DR CARMEN Riggins Primary Care Unavailable CONLEY, DR CARMEN Riggins Consulting Unavailable Melina, Caro Consulting Unavailable CONLEY, DR CARMEN Riggins Primary Care Unavailable MISC, DR FERNÁNDEZ Consulting Unavailable MISC, DR FERNÁNDEZ Attending Unavailable MISC, DR FERNÁNDEZ Admitting Unavailable Carmen Conley MD Primary Care Provider [phone] ZULEIMA SUMNER Attending Unavailable ZULEIMA SUMNER Attending Unavailable CARMEN CONLEY Primary Care Physician JANUSZ Hernández Attending Unavailable NONE, XXXX Referring Unavailable NONE, XXXX Referring Unavailable JANUSZ Hernández Attending Unavailable Deonte Peraza Attending Unavaila CARMEN Ward Referring Unavailable Shaun Goode AJeff Attending Unavailable Mouchli Mohamad AJeff Attending Unavailable MoYvette marshamad AJeff Attending Unavailable Mouchanjel Mohamad AJeff Admitting Unavailable MoRamya marshd AJeff Referring Unavailable Shaun Goode AJeff Attending Unavailable MD Lucho GOINS Consulting Unavailable CARMEN CONLEY Referring Unavailable CARMEN CONLEY Attending Unavailable CARMEN CONLEY Admitting Unavailable Lucho GOINS Consulting Unavailable Lucho GOINS Consulting Unavailable Deonte Peraza Referring Unavaila Deonte Larsen Attending Unavaila Deonte Larsen Admitting Unavaila JANUSZ Gilmore Attending Unavailable JANUSZ Hernández Admitting Unavailable JANUSZ Hernández Referring Unavailable Shaun Goode Attending Unavailable Shaun Goode AJeff Admitting Unavailable Nohemy Mohamud MD Attending Unavailable Allergies Allergy Classification Reported Allergen(s) Allergy Type Date of Onset Reaction(s) Facility Sulfonamides (antibiotic) (1 source) Sulfonamides (Antibiotic); Translations: [sulfa drugs] Drug Allergy Weal (disorder) [facility] (2 sources) Latex Drug Allergy 09-07-19 17 Unknown [facility] (2 sources) Sulfonamides (Antibiotic) Drug Allergy 09-06-19 17 Anaphylaxis [facility] (20 sources) Latex Propensity to adverse reactions Unknown [facility] Other (20 sources) Sulfonamides (Antibiotic) Propensity to adverse reactions Unknown [facility] Other (1 source) Latex Drug allergy (disorder) 10-15-19 16 [facility] (1 source) Sulfonamides (Antibiotic) Drug allergy (disorder) 08-19-19 13 [facility] (13 sources) sulfADIAZINE Drug Allergy 09-12-19 18 Comment:SULFA [facility] Other (12 sources) Adhesive bandage; Translations: [Adhesive Bandage] Drug allergy Eruption of skin (disorder) [facility] (11 sources) Sulfonamides (Antibiotic); Translations: [sulfa drugs] Drug allergy Weal (disorder) [facility] Medications Current Medications Medication Drug Class(es) Dates Sig (Normalized) Sig (Original) [id number] actuat albuterol 0.09 mg/actuat metered dose [...] oral tablet (20 sources) HMG-CoA Reductase Inhibitor Start: 06-21-2023 take 1 tablet by mouth once daily atorvastatin 10 mg Tab 10 mg = 1 tab(s), Oral, Daily, Refills(s) 0, High cholesterol Start Date: 06/21/23 Status: Ordered take 1 tablet by mouth once carl y Atorvastatin Calcium 10 MG TAKE 1 TABLET BY MOUTH DAILY for 90 days Active benazepril hydrochloride 20 mg oral tablet (20 sources) Angiotensin Converting Enzyme Inhibitor Start: 06-21-2023 take 1 tablet by mouth once daily benazepril 20 mg Tab 20 mg = 1 tab(s), Oral, Daily, Refills(s) 0, High blood pressure Start Date: 06/21/23 Status: Ordered Start: 01-01-2017 take 1 tablet by karla th once daily benazepril (LOTENSIN) 20 mg tablet benazepril 20 mg tablet TAKE 1 TABLET BY MOUTH EVERY DAY 0 01/01/2017 Active Comment on above: benazepril 20 mg tab let TAKE 1 TABLET BY MOUTH EVERY DAY cefuroxime 250 mg oral tablet (18 sources) Cephalosporin Antibacterial take 1 tablet by mouth every twelve hours ciprofloxacin 250 mg oral tablet (18 sources) Quinolone Antimicrobial Start: 3 take 1 tablet by mouth every twelve hours citalopram 40 mg oral tablet (20 sources) Serotonin Reuptake Inhibitor Start: 4 take 1 tablet by mouth once daily citalopram 40 mg Tab 40 mg = 1 tab(s), Oral, Daily, Refills(s) 0, Anxiety Start Date: 06/21/23 Status: Ordered Start: 01-01-2017 take 1 tablet by karla th once daily citalopram (CELEXA) 40 mg tablet citalopram 40 mg tablet TAKE 1 TABLET BY MOUTH DAILY 0 01/01/2017 Active Comment on above: citalopram 40 mg tab let TAKE 1 TABLET BY MOUTH DAILY 3 ml insulin lispro 100 unt/ml pen injector (18 sources) Insulin Analog levothyroxine sodium 0.05 mg oral tablet (20 sources) l-Thyroxine Start: 4 take 1 tablet by mouth once daily levothyroxine 50 mcg (0.05 mg) Tab 50 mcg = 1 tab(s), Oral, Daily, Refills(s) 0, Thyroid Start Date: 06/21/23 Status: Ordered take 1 tablet by mouth once carl y Levothyroxine Sodium 50 MCG TAKE 1 TABLET BY MOUTH DAILY Active take 1 tablet by mouth once carl y Levothyroxine Sodium 50 MCG TAKE 1 TABLET BY MOUTH DAILY Active Comment on above: levothyroxine 50 mcg tablet TAKE 1 TABLET BY MOUTH DAILY linaclotide 0.145 mg oral capsule (3 sources) Guanylate Cyclase-C Agonist Start: 4 take 1 capsule by mouth once daily Linzess 145 mcg oral capsule 145 mcg = 1 cap(s), Oral, Daily, # 30 cap(s), Refills(s) 5, Pharmacy: [facility]/pharmacy #[id number], 155, cm, 06/26/23 12:22:00 EDT, Height/Length Dosing, 72.1, kg, 06/26/23 12:22:00 EDT, Weight Dosing Start Date: 06/27/23 Status: Ordered loratadine 10 mg oral tablet (10 sources) Start: take 10 mg by mouth once daily Alavert 10 mg, Oral, Daily, Refills(s) 0, Allergy symptoms Start Date: 06/21/23 Status: Ordered Start: 06-21-2023 Alavert Refill s(s) 0 Start Date: 06/21/23 Status: Ordered LORazepam (20 sources) Benzodiazepine Start: 06-21-2023 lorazepam Oral , q8hr, PRN as needed for anxiety, Refills(s) 0 Start Date: 06/21/23 Status: Ordered Start: 06-21-2023 lorazepam Refi lls(s) 0 Start Date: 06/21/23 Status: Ordered Start: 08-28-2022 take 1 tablet by karla th every twelve hours LORazepam 0.5 MG 1 tablet at bedtime as needed Orally Twice a day for 30 days August, Active Start: 05-10-2022 take 1 tablet by karla th every twelve hours Start: 05-10-2022 take 1 tablet by karla th once daily as needed LORazepam 0.5 MG 1 tab Orally once a day prn for 30 days May, Active 24 hr metoprolol succinate 25 mg extended release oral tablet (3 sources) beta-Adrenergic Chuy Start: 09-05-2023 take 1 tablet by mouth once daily metoprolol 25 mg ER Tab 25 mg = 1 tab(s), Oral, Daily, # 30 tab(s), Refills(s) 2, Pharmacy: [facility]/pharmacy #[id number], 155, cm, 09/05/23 10:04:00 EDT, Height/Length Dosing, 71.2, kg, 09/05/23 10:04:00 EDT, Weight Dosing Start Date: 09/05/23 Status: Ordered minocycline 50 mg oral capsule (6 sources) Tetracycline-class Drug Minocycline 50 MG 1 capsule once a day for a month Active Ozempic (0.25 or 0.5 MG/DOSE) 2 MG/1.5ML (7 sources) Start: 06-12-2022 Ozempic (0.25 or 0.5 MG/DOSE) 2 MG/1.5ML 0.5mg Subcutaneous weekly Jun, Active pantoprazole 40 mg delayed release oral tablet (6 sources) Proton Pump Inhibitor Start: 07-24-2023 take 1 tablet by mouth once daily Pantoprazole [address] Tab 40 mg = 1 tab(s), Oral, Daily, # 90 tab(s), Refills(s) 3, Pharmacy: [facility]/pharmacy #[id number], 153, cm, 07/24/23 13:54:00 EDT, Height/Length Dosing, 71.5, kg, 07/24/23 13:54:00 EDT, Weight Dosing Start Date: 07/24/23 Status: Ordered predniSONE 20 mg oral tablet (10 sources) take 1 tablet by mouth every twenty-four hours predniSONE 20 MG 1 tablet Orally Once a day for 5 days Active (18 sources) Active Ozempic (20 sources) Start: 06-21-2023 Ozempic SubCut aneous, qWeek, Refill(s) 0, Blood glucose Start Date: 06/21/23 Status: Ordered Start: 06-21-2023 Ozempic Refill (s) 0 Start Date: 06/21/23 Status: Ordered Start: 03-21-2023 Rybelsus 7 MG 1 tablet [...] tablet (20 sources) Central alpha-2 Adrenergic Agonist Start: 10-08-2023 tiZANidine 4 mg Tab 4 mg = 1 tab(s), Refills(s) 0 Start Date: 10/08/23 Status: Ordered Start: 06-21-2023 tizanidine 4 m g oral capsule Refills(s) 0 Start Date: 06/21/23 Status: Ordered take 1 tablet by karla th at bedtime as needed tiZANidine HCl 4 MG TAKE 1 TABLET BY MOUTH AT BEDTIME NEEDED for 90 days Active traZODone hydrochloride 50 mg oral tablet (20 sources) Serotonin Reuptake Inhibitor Start: 06-21-2023 take 1 tablet by mouth once daily at bedtime traZODONE 50 mg Tab 50 mg = 1 tab(s), Oral, Once a day (at bedtime), Refills(s) 0, Sleep Start Date: 06/21/23 Status: Ordered Start: 01-01-2017 take 1 tablet by karla th once daily traZODone (DESYREL) 50 mg tablet trazodone 50 mg tablet TAKE 1 TABLET BY MOUTH EVERY DAY 0 01/01/2017 Active Comment on above: trazodone 50 mg tabl et TAKE 1 TABLET BY MOUTH EVERY DAY Vitamin D3 25 MCG (1000 UT) (18 sources) take 1 tablet by karla th once daily take 1 tablet by mouth once carl y Vitamin D3 25 MCG (1000 UT) 1 tablet Orally Once a day Active Zinc (1 source) take 1 tablet by mouth once carl y zinc gluconate 50 mg oral ta blet (17 sources) take 1 tablet by mouth every twe nty-four hours Completed/Discontinued Medications Medication Drug Class(es) Dates Sig (Normalized) Sig (Original) 24 hr metFORMIN hydrochloride 500 mg extended [...] Start: 08-04-2020 traMADol (ULTRAM) 50 mg tablet Problems Active Problems Problem Classification Problem Date Documented Da te Episodic/Chronic Abdominal pain (8 sources) Right lower quadrant pain; Translations: [Generalized abdominal tenderness] Onset: 3 Episodic Anxiety disorders (20 sources) Mixed anxiety and depressive disorder; Translations: [Other specified anxiety disorders] Onset: 2 Chronic Cardiac dysrhythmias (3 sources) Ventricular tachycardia; Translations: [Ventricular tachycardia, unspecified] Onset: 4 Chronic Coagulation and hemorrhagic disorders (20 sources) Thrombocytopenic disorder; Translations: [Thrombocytopenia, unspecified] Chronic Diabetes mellitus with complications (20 sources) Hyperglycemia due to type 2 diabetes mellitus; Translations: [Type 2 diabetes mellitus with hyperglycemia] Onset: 2 Chronic Diabetes mellitus without complication (1 source) Type 2 diabetes mellitus without complications; Translations: [TYPE 2 DM WITHOUT COMPLICATIONS] Onset: 3 Chronic Disorders of lipid metabolism (20 sources) Mixed hyperlipidemia; Translations: [Mixed hyperlipidemia] Onset: 2 Chronic Esophageal disorders (1 source) Gastro-esophageal reflux disease without esophagitis; Translations: [GERD WITHOUT ESOPHAGITIS] Onset: 3 Chronic Essential hypertension (20 sources) Hypertensive disorder; Translations: [Essential (primary) hypertension] Onset: 3 Chronic Genitourinary symptoms and ill-defined conditions (7 sources) Dysuria; Translations: [Personal history of urinary (tract) infections] Onset: 3 Episodic Hepatitis (1 source) Cirrhosis - non-alcoholic; Translations: [Nonalcoholic steatohepatitis (RITTER)] 09-21-2020 Chronic Immunity disorders (20 sources) Immunodeficiency disorder; Translations: [Immunodeficiency, unspecified] Onset: 3 Chronic Nonspecific chest pain (2 sources) Chest pain; Translations: [Chest pain, unspecified] Onset: 4 Episodic Osteoarthritis (20 sources) Osteoarthritis of knee; Translations: [Osteoarthritis of knee, unspecified] Chronic Other aftercare (20 sources) Long-term current use of insulin; Translations: [senior living (current) use of insulin] Episodic Other connective tissue disease (20 sources) Fibromyalgia; Translations: [Fibromyalgia] Episodic Other connective tissue disease (3 sources) Fibromyalgia; Translations: [FIBROMYALGIA] Onset: 3 Episodic Other disorders of stomach and duodenum (1 source) Gastroduodenal disorder; Translations: [Disease of stomach and duodenum, unspecified] Onset: 4 Episodic Other gastrointestinal disorders (1 source) Constipation by outlet obstruction; Translations: [Outlet dysfunction constipation] Onset: 4 Episodic Other gastrointestinal disorders (1 source) Other constipation; Translations: [Other constipation] Onset: 4 Episodic Other infections; including parasitic (2 sources) Personal history of other infectious and parasitic diseases Episodic Other liver diseases (20 sources) Steatosis of liver; Translations: [Fatty (change of) liver, not elsewhere classified] Onset: 4 Chronic Other liver diseases (2 sources) Cirrhosis of liver; Translations: [Unspecified cirrhosis of liver] Onset: 4 Chronic Other liver diseases (20 sources) Elevated liver enzymes level; Translations: [Abnormal levels of other serum enzymes] Episodic Other liver diseases (7 sources) Abnormal levels of other serum enzymes; Translations: [ABNORMAL LEVELS OTHER SERUM ENZYMES] Onset: 3 Episodic Other lower respiratory disease (2 sources) Dyspnea, unspecified; Translations: [DYSPNEA UNSPECIFIED] Onset: 2 Episodic Other nutritional; endocrine; and metabolic disorders [...] sources) 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 Residual codes; unclassified (1 source) Pelvic organ finding; Translations: [Acquired absence of both cervix and uterus] Onset: 4 Episodic Residual codes; unclassified (1 source) Acquired absence of organ; Translations: [Acquired absence of other specified parts of digestive tract] Onset: 4 Episodic Septicemia (except in labor) (2 sources) Sepsis due to unspecified staphylococcus; Translations: [Severe sepsis without septic shock] Onset: 3 Episodic Thyroid disorders (20 sources) Hypothyroidism; Translations: [Hypothyroidism, unspecified] Onset: 2 Chronic Unclassified (4 sources) CONTACT W/AND (SUSP) EXPOS COVID-19; Translations: [CONTACT W/AND (SUSP) EXPOS COVID-19] Onset: 2 Unclassified (1 source) ACIDOSIS UNSPECIFIED; Translations: [ACIDOSIS UNSPECIFIED] Onset: 3 Past or Other Problems Problem Classification Problem [...] 11-26-2021 Episodic Other aftercare (1 source) Other pediatrician active practice (current) drug therapy; Translations: [OTH HALFWAY CURRENT DRUG THERAPY] Onset: 04-17-2022 Episodic Other aftercare (1 source) 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 Denies chest pain or SOB History of Present Illness Patient is a 73-year-old female with history of chest pain and runs of ventricular tachycardia. Present for 1-month follow-up At last visit, I saw patient and reordered stress test as a Lexiscan as patient was not able to do treadmill. I also started patient on metoprolol 25 mg ER daily to try to help out with VEs. Stress test came back negative for ischemia or infarction and was considered a low risk study. Patient has been taking and tolerating metoprolol well and has not had any further chest tightness or symptoms since last visit. Patient also denies heart palpitations and dizziness/lightheadednes s. Has been feeling well since last visit. Patient denies swelling to lower extremities NOTE FROM 09/05/2023: At last visit, patient saw Dr. Peraza and he ordered her a stress test and Holter monitor. Although patient was unable to do stress test due to fibromyalgia and pains. Patient had event monitor which showed primary rhythm of sinus bradycardia/sinus rhythm/sinus tachycardia. 239 total SVE's with 3 SVT runs lasting 3-13 beats with heart rate 155 bpm. Patient also had 83 VE's including VE couplets into VE runs lasting 5-7 beats with heart rate at 135 bpm. Patient had normal echo since last visit. She states that she has been feeling all right and did not notice runs of SVT or VE. Patient has not had any episodes of syncope in the past. She is still having some pains in the right side of her chest that she thinks are related to fibromyalgia. Patient is not having any significant shortness of breath, heart palpitations, swelling in lower extremities, dizziness/lightheadednes s To her knowledge, she does not have any history of abnormal heart rhythm in the past. Review of Systems PHQ Score Initial Depression Screen Score: 0 SCORE ROS - Provider Constitutional: no fever, no chills, no sweats, no weakness Respiratory: no shortness of breath, no cough Cardiovascular: no chest pain Neuro: no dizziness. no loss of consciousness Physical Exam Vitals & Measurements HR: 79(Peripheral) RR: 20 BP: 134/80 SpO2: 94% HT: 61 in HT: 155 cm WT: 72.6 kg WT: 159.72 lb BMI: 30.22 General: alert, no acute distress Cardiovascular: regular rate and rhythm, no murmur normal peripheral perfusion Respiratory: Lungs CTAB, respirations non labored Extremities: no edema left lower extremity. no edema right lower extremity Neurological: oriented x 4, LOC appropriate for age, speech normal Skin: Warm, dry, intact- no rash or concerning lesions Cardiac Diagnostics (06/18/2023 08:41 EDT Echo Transthoracic Complete) Interpretation Summary No comparison study is available. Ejection Fraction = 60-65%. The left ventricular wall motion is normal. Grade I diastolic dysfunction, (abnormal relaxation pattern). There is Trace mitral regurgitation. Right ventricular systolic pressure is 26 mmHg. [1] (10/01/2023 14:13 EDT NM Myocardial Spect Rest/Stress 1 Day) Interpretation Summary Negative lexiscan stress EKG portion of the test. Rest Dose: 10.2 mCi IV. Stress Dose: 28.7 mCi IV. TID 1.18 EF 71% EDV 50 ml Negative nuclear portion of the stress for ischemia or infarction. Overall low risk stress test. [1] Assessment/Plan 1. Ventricular tachycardia (I47.20: Ventricular tachycardia, unspecified) Patient had 2 VT runs of 3-7 beats while wearing event monitor. Echo was grossly normal as well. Patient was able to get stress test since last visit and that came back negative for ischemia or infarction and low risk study. Patient has been taking metoprolol ER 25 mg daily since last visit and has not had any chest symptoms since that time. Continue with metoprolol daily 2. Chest pain (R07.9: Chest pain, unspecified) No chest pains or symptoms since last visit. Could have been fibromyalgia related pain previously, but continue with metoprolol ER 25 mg daily. Follow-up in 6 months with me Portions of this record may have been created with voice recognition artificial intelligence software, specifically [employer], [employer] and or [employer]. Substitutions may have occurred due to the inherent limitations of voice recognition and artificial intelligence software. Follow-up No qualifying data available Problem List/Past Medical History Ongoing Ventricular tachycardia Historical No qualifying data Procedure/Surgical History Esophagogastroduodenosco py (07/02/2023), Arm, Bladder, Gallbladder, Hand, Hysterectomy. Medications benazepril 20 mg Tab, 20 mg= 1 tab(s), Oral, Daily citalopram 40 mg Tab, 40 mg= 1 tab(s), Oral, Daily levothyroxine 50 mcg (0.05 mg) Tab, 50 mcg= 1 tab(s), Oral, Daily lorazepam, Oral, q8hr, PRN, Self Directed metoprolol 25 mg ER Tab, 25 mg= 1 tab(s), Oral, Daily, 2 refills Ozempic, Sub (more content not included)... Normal [facility] Comment on above: Result Comment: Elec tronically Signed By: Edgar BOUDREAUX, Dontae Wolfe\.elyse\Date and Time Signed: 10/08/23 13:53 EDT NM Myocardial Spect Rest/Str ess 1 Dayon 10-02-2023 NM Myocardial Spect Rest/Stress 1 Day Exam Date/Time: 10/01/2023 14:13 EDT Reason for Exam: ventricular tachycardia;Other (please specify) Report [facility] [address] [place] [address] Nuclear Stress Report Name: IVELISSE GEE Study Date: 10/01/2023 12:32 PM Patient Location: [facility] : 1950 (M/d/yyyy) Gender: Female Age: 73 yrs Ethnicity: [facility] Reason For Study: Other (please specify) Ordering Physician: Dontae Hernández Referring Physician: Dontae Hernández Protocol 80113 Pharmacologic Lexiscan stress with Isotope. Study Protocol: One day rest/stress acquisition. Rest Dose Tc99m Cardiolite was administered. Rest Dose: 10.2 mCi IV. Stress Dose Stress Protocol: Lexiscan. Stress Dose: 28.7 mCi IV. Stress Parameters Normal blood pressure response. Stress Symptoms: None. ECG Rest Normal ECG. ECG Peak No significant changes from baseline. No ST-T wave changes from baseline. Arrhythmia No arrhythmias. Image Quality Rest Images: Diagnostic in quality. Stress Images: Diagnostic in quality. SPECT Perfusion Normal rest and stress perfusion. Left Ventricle Normal global and regional wall motion in all territories. Report Interpretation Summary Negative lexiscan stress EKG portion of the test. Rest Dose: 10.2 mCi IV. Stress Dose: 28.7 mCi IV. TID 1.18 EF 71% EDV 50 ml Negative nuclear portion of the stress for ischemia or infarction. Overall low risk stress test. FINAL REPORT Dictated: 10/01/2023 12:32 pm Deonte Peraza MD Signed (Electronic Signature): 10/02/2023 1:30 pm Signed by: Deonte Peraza MD Transcribed by: [facility] Technologist: ISAAC [facility] Consent for Treatmenton 09-07 Consent for Treatment [id number] F [facility] Monitor Recordon 10-01-2023 Monitor Record [id number] F [facility] Event Monitoron 09-30-2023 Event Monitor EVENT MONITOR ENROLLMENT PERIOD: 08/05/2023 through 08/22/2023 INDICATIONS: Palpitations. FINDINGS: Over the monitoring time the monitor recorded underlying sinus rhythm, bradycardia, tachycardia. There were 6 patient events with symptoms of not specified, palpitations, other, baseline. There was no evidence of secondary arrhythmia. The total burden of premature supraventricular contractions of 0.02% including supraventricular ectopy couplets, supraventricular ectopy runs lasting 3-13 beats with heart rate of 155 beats per minute. There was a total burden of premature ventricular ectopy of 0.01% including ventricular ectopy couplets, 2 ventricular ectopy runs lasting 5-7 beats with heart rate of 135 beats per minute. The patient's symptoms of palpitations corresponded to normal sinus rhythm. CONCLUSIONS: 1. Underlying sinus rhythm. 2. Low burden of premature ventricular and supraventricular ectopy as above. 3. No evidence of malignant ventricular arrhythmia, clinically significant pauses, atrial fibrillation. READ BY: Ciaran Villatoro MD ca Dictated: 09/28/2023 [id number] Transcribed: 09/30/2023 [facility] Comment on above: Result Comment: Elec tronically Signed By: Shauna CERRATO, Ciaran Mccabe\.br\Date and Time Signed: 09/30/23 13:51 EDT Consent for Treatmenton 08-08 Consent for Treatment [id number] F [facility] [facility] Heart and Vascular Office/Cl inic Noteon 09-05-2023 Heart and Vascular Office/Clinic Note Chief Complaint F/U Testing History of Present Illness Patient is a 73-year-old female with history of chest pain. Present for 2-month follow-up At last visit, patient saw Dr. Peraza and he ordered her a stress test and Holter monitor. Although patient was unable to do stress test due to fibromyalgia and pains. Patient had event monitor which showed primary rhythm of sinus bradycardia/sinus rhythm/sinus tachycardia. 239 total SVE's with 3 SVT runs lasting 3-13 beats with heart rate 155 bpm. Patient also had 83 VE's including VE couplets into VE runs lasting 5-7 beats with heart rate at 135 bpm. Patient had normal echo since last visit. She states that she has been feeling all right and did not notice runs of SVT or VE. Patient has not had any episodes of syncope in the past. She is still having some pains in the right side of her chest that she thinks are related to fibromyalgia. Patient is not having any significant shortness of breath, heart palpitations, swelling in lower extremities, dizziness/lightheadednes s To her knowledge, she does not have any history of abnormal heart rhythm in the past. Review of Systems PHQ Score Initial Depression Screen Score: 0 SCORE ROS - Provider Constitutional: no fever, no chills, no sweats, no weakness Respiratory: no shortness of breath, no cough Cardiovascular: yes chest pain Neuro: no dizziness. no loss of consciousness Physical Exam Vitals & Measurements HR: 82(Peripheral) BP: 142/86 SpO2: 97% HT: 61 in HT: 155 cm WT: 71.2 kg WT: 156.64 lb BMI: 29.64 General: alert, no acute distress Cardiovascular: regular rate and rhythm, no murmur normal peripheral perfusion Respiratory: Lungs CTAB, respirations non labored Extremities: no edema left lower extremity. no edema right lower extremity Neurological: oriented x 4, LOC appropriate for age, speech normal Skin: Warm, dry, intact- no rash or concerning lesions Cardiac Diagnostics (06/18/2023 08:41 EDT Echo Transthoracic Complete) Interpretation Summary No comparison study is available. Ejection Fraction = 60-65%. The left ventricular wall motion is normal. Grade I diastolic dysfunction, (abnormal relaxation pattern). There is Trace mitral regurgitation. Right ventricular systolic pressure is 26 mmHg. [1] Assessment/Plan 1. Ventricular tachycardia (I47.20: Ventricular tachycardia, unspecified) Patient had 2 VT runs of 3-7 beats while wearing event monitor. Echo was normal, but concern for ischemia so stressed to patient that she needs to get her stress test completed. Reordered Lexiscan stress test today patient agreeable to do so. She cannot do treadmill due to fibromyalgia. Also will start metoprolol ER 25 mg daily to help control heart rate Ordered: NM Myocardial Spect Rest/Stress 1 Day 2. Chest pain (R07.9: Chest pain, unspecified) Reordering stress test as Lexiscan as patient cannot do treadmill right now due to fibromyalgia Ordered: NM Myocardial Spect Rest/Stress 1 Day Orders: metoprolol, 25 mg = 1 tab(s), Oral, Daily, # 30 tab(s), Refills(s) 2, Pharmacy: [facility]/pharmacy #[id number], 155, cm, 09/05/23 10:04:00 EDT, Height/Length Dosing, 71.2, kg, 09/05/23 10:04:00 EDT, Weight Dosing regadenoson, 0.4 mg = 5 mL, Soln-IV, IV Push, Once PRN Other (see comment), Routine, Start date 09/05/23 10:43:00 EDT, Stress Test Communication Order Communication Order Communication Order Communication Order Peripheral IV Insertion Follow-up with me in 1 month Portions of this record may have been created with voice recognition artificial intelligence software, specifically [employer], [employer] and or [employer]. Substitutions may have occurred due to the inherent limitations of voice recognition and artificial intelligence software. Follow-up No qualifying data available Problem List/Past Medical History Ongoing No qualifying data Historical No qualifying data Procedure/Surgical History Esophagogastroduodenosco py (07/02/2023), Arm, Bladder, Gallbladder, Hand, Hysterectomy. Medications Alavert, 10 mg, Oral, Daily atorvastatin 10 mg Tab, 10 mg= 1 tab(s), Oral, Daily benazepril 20 mg Tab, 20 mg= 1 tab(s), Oral, Daily citalopram 40 mg Tab, 40 mg= 1 tab(s), Oral, Daily levothyroxine 50 mcg (0.05 mg) Tab, 50 mcg= 1 tab(s), Oral, Daily lorazepam, Oral, q8hr, PRN metoprolol 25 mg ER Tab, 25 mg= 1 tab(s), Oral, Daily, 2 refills Ozempic, SubCutaneous, qWeek Pantoprazole [address] Tab, 40 mg= 1 tab(s), Oral, Daily, 3 refills regadenoson 0.4 mg/5 mL IV Monica, 0.4 mg= 5 mL, IV Push, Once, PRN traZODONE 50 mg Tab, 50 mg= 1 tab(s), Oral, Once a day (at bedtime) Allergies Adhesive Bandage (Rash) sulfa drugs (Hives) Social History Tobacco - Denies Tobacco Use, 06/21/2023 Never (less than 100 in lifetime) Tobacco Use:. Never Smokeless Tobacco Use:., 09/05/2023 Family History Hyperthyroidism: Mother. Primary malignant neoplasm of colon: Father. Immunizations [facility] (more content not included)... [facility] Comment on above: Result Comment: Elec tronically Signed By: Edgar BOUDREAUX, Dontae Wolfe\harvinder\Date and Time Signed: 09/05/23 12:53 EDT Physician Orderon 09-05-2023 Physician Order [id number] IFF [facility] Monitor Recordon 09-03-2023 Monitor Record [id number] FF [facility] Consent for Treatmenton 07-08 Consent for Treatment [id number] F [facility] Ambulatory Visit Summaryon 0 07-24-2023 Ambulatory Visit Summary MARLENIVELISSE :1950 Visit Date:07/24/2023 Ambulatory Visit Instructions Your Diagnosis Gastropathy Cirrhosis of liver Chronic constipation Your Care Team Attending Physician - Rupa CERRATO, Shaun Xiao Primary Care Physician - CARMEN CONLEY MD This Is Your Medications List pantoprazole (Pantoprazole [address] Tab) Contact prescribing physician if questions or concerns atorvastatin (atorvastatin 10 mg Tab) benazepril (benazepril 20 mg Tab) citalopram (citalopram 40 mg Tab) levothyroxine (levothyroxine 50 mcg (0.05 mg) Tab) loratadine (Alavert) lorazepam semaglutide (Ozempic) trazodone (traZODONE 50 mg Tab) Procedures Performed Esophagogastroduodenosco py (07/02/2023), Arm, Bladder, Gallbladder, Hand, Hysterectomy. Discharge Vitals Heart Rate (Peripheral) 85 Respiratory Rate 16 Blood Pressure 135/77 Height 153 cm Height 60 in Weight 71.5 kg Weight 157.3 lb BMI 30.54 What to do next Scheduled Follow-Up Appointments Saturday 8:00 AM EDT With: Where: [facility] Saturday 9:00 AM EDT With: Where: [facility] Saturday 9:30 AM EDT With: Where: [facility] Saturday 10:30 AM EDT With: Where: [facility] Saturday 11:00 AM EDT With: Where: Cardiovascular Services 2023 2:00 PM EDT With: Karmen CERRATO, Deonte Roth Where: [facility]iology Clinic Saturday 12:15 PM EDT With: Rupa CERRATO, Shaun Xiao Where: [facility] Gastroenterology Office/Clin ic Noteon 07-24-2023 Gastroenterology Office/Clinic Note Chief Complaint follow up to EGD HPI Staff Patient is a 72 year old female here today to review EGD results. EGD Findings: 07/02/2023 Z-line was irregular at 35 cm Nonobstructing Schatzki's ring LA grade a esophagitis Hiatal hernia measuring 3 cm Widely open GE valve Patchy erythema of the stomach consistent with mild gastropathy status post biopsies Normal examined duodenum status post biopsies Pathology Final Diagnosis (Verified) A: DUODENUM, BIOPSY: ? DUODENAL MUCOSA WITHIN NORMAL LIMITS. B: STOMACH, BIOPSY: ? ANTRAL MUCOSA WITH MILD CHRONIC INACTIVE GASTRITIS. ? GASTRIC BODY MUCOSA WITH NO SIGNIFICANT PATHOLOGIC CHANGES. ? NO INTESTINAL METAPLASIA IDENTIFIED. ? NO H. PYLORI MICROORGANISMS IDENTIFIED WITH IMMUNOSTAIN. Dr Goode Assessment/Plan: 06/26/2023 1. Epigastric pain (R10.13: Epigastric pain) 2. Cirrhosis of liver (K74.60: Unspecified cirrhosis of liver) 3. Fatty liver (K76.0: Fatty (change of) liver, not elsewhere classified) 4. S/P cholecystectomy (Z90.49: Acquired absence of other specified parts of digestive tract) 5. H/O: hysterectomy (Z90.710: Acquired absence of both cervix and uterus) 6. 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 Generalized abdominal tenderness (R10.817: Generalized abdominal tenderness) Orders: linaclotide, 145 mcg = 1 cap(s), Oral, Daily, # 30 cap(s), Refills(s) 5 Schedule upper endoscopy to evaluate epigastric pain and GERD Advised to lose weight and eat healthy Advised to drink 2 to 3 cups of medium roast coffee every day Start Linzess 145 mcg daily Advised to work on having 1-2 bowel movements every day by using ovsz-wwt-qhesrhy laxatives such as senna Advised to massage the belly and do squatty potty Advised to consume prunes and kiwi fruit Check alpha-fetoprotein Reference Laboratory Testin06/26/2023 AFP * 3.5 ng/mL History of Present Illness I have reviewed HPI staff note, most recent labs and imaging, more than 30 minutes spent reviewing the chart, during encounter, placing orders and counseling the patient. Pt is doing well epigastric pain and bloating resolved could not afford Linzess, on prunlax and prunes back on Ozempic Review of Systems PHQ Score Initial Depression Screen Score: 0 SCORE All systems reviewed, negative except as mentioned above Physical Exam Vitals & Measurements HR: 85(Peripheral) RR: 16 BP: 135/77 HT: 60 in HT: 153 cm WT: 71.5 kg WT: 157.3 lb BMI: 30.54 General: alert, no acute distress HEENT: atraumatic normocephalic Cardiovascular: regular rate and rhythm, normal peripheral perfusion Respiratory: Lungs CTA, respirations non labored Extremities: no deformity, no trauma Abdomen: Benign, soft, nontender nondistended Assessment/Plan 1. Gastropathy (K31.9: Disease of stomach and duodenum, unspecified) 2. Cirrhosis of liver (K74.60: Unspecified cirrhosis of liver) 3. Chronic constipation (K59.09: Other constipation) Orders: linaclotide, 145 mcg = 1 cap(s), Oral, Daily, # 30 cap(s), Refills(s) 5, Pharmacy: [facility]/pharmacy #[id number], 155, cm, 06/26/23 12:22:00 EDT, Height/Length Dosing, 72.1, kg, 06/26/23 12:22:00 EDT, Weight Dosing pantoprazole, 40 mg = 1 tab(s), Oral, Daily, # 90 tab(s), Refills(s) 3, Pharmacy: [facility]/pharmacy #[id number], 153, cm, 07/24/23 13:54:00 EDT, Height/Length Dosing, 71.5, kg, 07/24/23 13:54:00 EDT, Weight Dosing Refill PPI Continue prune lax and prunes Repeat alpha-fetoprotein ultrasound of the liver every 6 months Follow-up No qualifying data available Problem List/Past Medical History Ongoing No qualifying data Historical No qualifying data Procedure/Surgical History Esophagogastroduodenosco py (07/02/2023), Arm, Bladder, Gallbladder, Hand, Hysterectomy. Medications Alavert, 10 mg, Oral, Daily atorvastatin 10 mg Tab, 10 mg= 1 tab(s), Oral, Daily benazepril 20 mg Tab, 20 mg= 1 tab(s), Oral, Daily citalopram 40 mg Tab, 40 mg= 1 tab(s), Oral, Daily levothyroxine 50 mcg (0.05 mg) Tab, 50 mcg= 1 tab(s), Oral, Daily lorazepam, Oral, q8hr, PRN Ozempic, SubCutaneous, qWeek Pantoprazole [address] Tab, 40 mg= 1 tab(s), Oral, Daily, 3 refills traZODONE 50 mg Tab, 50 mg= 1 tab(s), Oral, Once a day (at bedtime) Allergies Adhesive Bandage (Rash) sulfa drugs (Hives) Social History Tobacco - Denies Tobacco Use, 06/21/2023 Never (less than 100 in lifetime) Tobacco Use:., 07/24/2023 Never (less than 100 in lifetime) Tobacco Use:., 06/26/2023 Family History Family history is negative Immunizations Vaccine Date Status influenza virus vaccine, inactivated 01/01/2019 Recorded influenza virus vaccine, inactivated 12/17/2017 Recorded influenza virus vaccine, inactivated 04/09/2016 Recorded Normal [facility] Comment on above: Result Comment: Elec tronically Signed By: Rupa CERRATO, Shaun Xiao\.br\Date and Time Signed: 07/24/23 14:16 EDT IntraOperative Documentson 0 07-04-2023 IntraOperative Documents [id number] FF [facility] Consenton 07-03-2023 Consent [id number]#1.00TI [facility] Discharge Instructionson Discharge Instructions [id number]#[id number] [facility] Main OR Intraoperative Recor don 07-03-2023 Main OR Intraoperative Record IntraOp Document Type FT Summary Primary Physician: Shaun Goode MD Finalized Date/Time: 07/03/23 11:58:54 Pt. Name: IVELISSE GEE Aiden Davidson./Sex: 1950 Female Med Rec #: [id number] Physician: Shaun Goode MD Financial #: [id number] Pt. Type: O Room/Bed: / Admit/Disch: 07/02/23 08:33:49 - 07/02/23 23:59:59 Institution: Case Times FT Entry 1 Patient Times In Room 07/02/23 09:08:00 Out Room 07/02/23 09:22:00 Procedure Times Start 07/02/23 09:15:00 Stop 07/02/23 09:19:00 Anesthesia Times Start 07/02/23 09:08:00 Stop 07/02/23 09:22:00 Last Modified By: Adele Vargas RN 07/02/23 09:24:17 General Comments: 07/03/23 Chart opened for charge review per Melissa Hernandez RN. [place] Case Attendance FT Entry 1 Entry 2 Entry 3 Case Attendee Fadia Ortega Micala E Mouchli MD, Shaun Xiao Role Performed Staff - Other Scrub - Primary Surgeon - Primary Time In 07/02/23 09:15:00 07/02/23 09:08:00 07/02/23 09:08:00 Time Out 07/02/23 09:22:00 07/02/23 09:22:00 07/02/23 09:22:00 Procedure EGD(.) EGD(.) EGD(.) Comments help in room Last Modified By: Alicia MARC, Adele Vargas RN, Adele Lau RN 07/02/23 09:24:18 07/02/23 09:24:18 07/02/23 09:24:18 Entry 4 Entry 5 Case Attendee Alicia MARC, Aba Mcgill CRNA Role Performed Director Cardiovascular - Primary FLASH OVEN OPERATOR Time In 07/02/23 09:08:00 07/02/23 09:08:00 Time Out 07/02/23 09:22:00 07/02/23 09:22:00 Procedure EGD(.) EGD(.) Comments supervising Last Modified By: Adele Vargas RN, RN, Angela 07/02/23 09:24:18 07/02/23 09:24:18 Perioperative Protocols FT Pre-Care Text: Implements protective measures prior to operative or invasive procedure, confirms identity before the operative or invasive procedure, verifies operative procedure, surgical site, and laterality Entry 1 Procedure(s) EGD(.) Patient Identity Birthday, ID Band Verified (select at Check, Patient least 2): Participation Consents / H and P Anesthesia Consent, Operative Site N/A Verified HandP, Surgery/Procedure Marking Verified Consent Surgical Site No Laterality Verified n/a Verified Procedure Verified Yes Correct Patient Yes Position Verified Availability Equipment, Medication Prep Dry n/a Verified (If Applicable) PreOp Antibiotic No Time Out Fadia Ortega, Given Participants Kristie Shultz Mouchli MD, Mohamad A., Adele Vargas RN, Williams CRNA, Paul A. Time Out Complete 07/02/23 09:12:00 Outcomes Met? Yes Last Modified By: Adele Vargas RN 07/02/23 09:15:39 Post-Care Text: The patient is free from signs and symptoms of injury caused by extraneous objects Allergy Information FT Pre-Care Text: Verifies allergies Entry 1 Allergies Reviewed? Yes Allergies Reviewed Self/Patient With Outcomes Met? Yes Last Modified By: Adele Vargas RN 07/02/23 09:23:35 Post-Care Text: The patient received appropriate medication(s) safely administered during the perioperative period Surgical Procedures FT Entry 1 Procedure Description Procedure EGD Modifiers . Surgeon Description EGD with gastric and duodenal biopsies Primary Procedure Yes Primary Surgeon Shaun Goode MD Start 07/02/23 09:15:00 Stop 07/02/23 09:19:00 Anesthesia Type General Surgical Service Gastroenterology Wound Class 2 - Clean-Contaminated Last Modified By: Adele Vargas RN 07/02/23 09:23:46 General Case Data FT Pre-Care Text: Classifies surgical wound, implements aseptic technique, initiates traffic control Entry 1 Case Information OR ENDO 2 FT Case Level Level 2 Wound Class 2 - Clean-Contaminated Specialty Gastroenterology ASA Class 2 Preop Diagnosis EPIGASTRIC PAIN, Postop Same As Preop No CIRRHOSIS OF LIVER, FATTY LIVER Postop Diagnosis Hiatal hernia, LA Grade Outcomes Met? Yes A esophagitis, portal hypertension gastropathy, nonobstructive schatzki ring Last Modified By: Adele Vargas RN 07/02/23 11:47:02 Post-Care Text: The patient is free from signs and symptoms of infection Skin Assessment (Pre Procedure) FT Pre-Care Text: Implements protective measures to prevent skin/ tissue injury due to thermal or mechanical sources Evaluates for signs and symptoms of physical injury to skin and tissue Entry 1 Skin Integrity Intact, [place], Warm, and Skin Abnormality No Dry Outcomes Met? Yes Last Modified By: Adele Vargas RN 07/02/23 09:24:06 Post-Care Text: The patient is free from signs and symptoms of injury caused by extraneous objects Patient Positioning FT Pre-Care Text: Identifies physical alterations that require additional precautions for procedure-specific positioning, verifies presence of prosthetics or corrective devices, positions the patient, evaluates the patient for signs and symptoms of injury as a result of positioning Entry 1 Procedure EGD(.) Body Position Lateral, right side up Feet Uncrossed? Yes Left (more content not included)... Normal [facility] Postoperative Documentson Postoperative Documents [id number] FF Normal [facility] Progress Note-Physicianon Progress Note-Physician Patient: IVELISSE GEE Age: 72 years Sex: Female : 1950 Associated Diagnoses: None Author: Brant Friedman Jr, DO Preoperative Information Anesthesia Preop Info: Time patient last ate or drank 07/02/2023 00:00:00. Anesthesia history: Patient history: None. Family history+: None. Informed consent: Signed by patient. Re-evaluation prior to induction: Initial evaluation reviewed: No significant change. Review of Systems Eye: Negative except as documented in history of present illness. Ear/Nose/Mouth/Throat: Negative except as documented in history of present illness. Respiratory: Negative except as documented in history of present illness. Cardiovascular: Negative except as documented in history of present illness. Musculoskeletal: Negative except as documented in history of present illness. Neurologic: Negative except as documented in history of present illness. Health Status Allergies: Allergic Reactions (Selected) Severity Not Documented Adhesive Bandage- Rash. Sulfa drugs- Hives. Problem list: No problem items selected or recorded. Histories Procedure history: Bladder ([id number]). Comments: 06/26/2023 12:18 EDT - Cuming, Nancy years ago Gallbladder ([id number]). Hysterectomy ([id number]). Arm ([id number]). Hand ([id number]). Social History Social & Psychosocial Habits Tobacco 06/26/2023 Risk Assessment: Denies Tobacco Use 06/26/2023 Tobacco Use: Never (less than 100 in l . Physical Examination Airway: Mallampati classification: II (soft palate, fauces, uvula visible). Respiratory: adequate air exchange. Cardiovascular: Regular rhythm. Plan [place] [employer]hesi[employer] (ASA) physical status classification: Class II. Anesthetic Preoperative Plan: Anesthesia General. [facility] Comment on above: Result Comment: Elec tronically Signed By: Brant Friedman Jr, DO\.br\Date and Time Signed: 07/03/23 15:21 EDT Progress Note-Physician Patient: IVELISSE GEE Age: 72 years Sex: Female : 1950 Associated Diagnoses: None Author: Brant Friedman Jr, DO Postoperative Information Postoperative disposition: Postoperative disposition: To PACU. Optimetrix number: Optimetrix number [id number]. Anesthetic utilized: General. Health Status Allergies: Allergic Reactions (Selected) Severity Not Documented Adhesive Bandage- Rash. Sulfa drugs- Hives. Physical Examination Vital Signs 07/02/2023 9:50 EDT Heart Rate Monitored 82 bpm Respiratory Rate Monitored 17 br/min Systolic Blood Pressure 148 mmHg HI Diastolic Blood Pressure 72 mmHg Mean Arterial Pressure, Cuff 97 mmHg SpO2 94 % 07/02/2023 9:40 EDT Heart Rate Monitored 80 bpm Respiratory Rate Monitored 11 br/min Systolic Blood Pressure 132 mmHg Diastolic Blood Pressure 72 mmHg Mean Arterial Pressure, Cuff 92 mmHg SpO2 93 % 07/02/2023 9:35 EDT Heart Rate Monitored 86 bpm Respiratory Rate Monitored 15 br/min Systolic Blood Pressure 147 mmHg HI Diastolic Blood Pressure 62 mmHg Mean Arterial Pressure, Cuff 90 mmHg SpO2 93 % 07/02/2023 9:30 EDT Heart Rate Monitored 90 bpm Respiratory Rate Monitored 17 br/min Systolic Blood Pressure 141 mmHg HI Diastolic Blood Pressure 81 mmHg Mean Arterial Pressure, Cuff 101 mmHg SpO2 94 % 07/02/2023 9:25 EDT Temperature Temporal Artery 36.2 DegC LOW Heart Rate Monitored 91 bpm Respiratory Rate Monitored 14 br/min Systolic Blood Pressure 135 mmHg Diastolic Blood Pressure 74 mmHg Mean Arterial Pressure, Cuff 94 mmHg SpO2 95 % Pain Assessment: Controlled. General: Awake, Alert, Appropriate. Respiratory: Adequate air exchange. Cardiovascular: Stable, Normal peripheral perfusion. Neurological: Normal sensory function, Normal motor function. Assessment Anesthetic outcome No anesthetic complications noted. Adequate pain relief. able to void without difficulty, able to ambulate with assist, tolerating PO intake, no N/V. Review / Management Condition: Stable. Plan Transfer/Discharge: Transfer/Discharge Discharge when meets criteria ( To home ). [facility] Comment on above: Result Comment: Elec tronically Signed By: Brant Friedman Jr, DO\.elyse\Date and Time Signed: 07/03/23 15:20 EDT Consent for Treatmenton 06-07 Consent for Treatment [id number] F [facility] Discharge Instructionson Discharge Instructions IVELISSE GEE :1950 Visit Date:07/02/2023 Inpatient Discharge Instructions Your Care Team Admitting Physician - Shaun Goode MD Referring Physician - Shaun Goode MD. Reason for Your Visit EPIGASTRIC PAIN, CIRRHOSIS OF LIVER, FATTY LIVER Your Diagnosis Esophagitis, reflux Gastropathy Hernia, hiatal Tests Performed Pathology Tissue Exam -- Results Pending -- Please visit your patient portal for your results or contact your primary care physician. This Is Your Medications List atorvastatin (atorvastatin 10 mg Tab) benazepril (benazepril 20 mg Tab) citalopram (citalopram 40 mg Tab) levothyroxine (levothyroxine 50 mcg (0.05 mg) Tab) linaclotide (Linzess 145 mcg oral capsule) loratadine (Alavert) lorazepam semaglutide (Ozempic) trazodone (traZODONE 50 mg Tab) Procedure History Esophagogastroduodenosco py (07/02/2023), Arm, Bladder, Gallbladder, Hand, Hysterectomy. What to do next Instructions From Your Doctor Event Name Event Result Pharmacy Information [facility] Previously Scheduled Follow-Up Appointments August. 2023 2:00 PM EDT With: Karmen CERRATO, Deonte Roth Where: [facility] New Follow Up Appointments after Discharge Follow Up with Rupa CERRATO, ANTIONETTE Luna, [facility] When: Comments: Call for any problems. The office will reach out in about one week from procedure date. Where: Medications What How Much When Instructions Next Dose Unchanged atorvastatin (atorvastatin 10 mg Tab) 1 Tablets By Mouth Every day Unchanged benazepril (benazepril 20 mg Tab) 1 Tablets By Mouth Every day Unchanged citalopram (citalopram 40 mg Tab) 1 Tablets By Mouth Every day Unchanged levothyroxine (levothyroxine 50 mcg (0.05 mg) Tab) 1 Tablets By Mouth Every day Unchanged linaclotide (Linzess 145 mcg oral capsule) 1 Capsules By Mouth Every day Unchanged loratadine (Alavert) 10 Milligram By Mouth Every day Unchanged lorazepam By Mouth Every 8 hours as needed for as needed for anxiety Unchanged semaglutide (Ozempic) Subcutaneous Every week Unchanged trazodone (traZODONE 50 mg Tab) 1 Tablets By Mouth Once a day (at bedtime) Test Results No qualifying data available. Allergies Adhesive Bandage (Rash) sulfa drugs (Hives) Education Materials Endoscopy Care After Procedure Please read the instructions outlined below and refer to this sheet in the next few weeks. These discharge instructions provide you with general information on caring for yourself after you leave the hospital. Your doctor may also give you specific instructions. While your treatment has been planned according to the most current medical practices available, unavoidable complications occasionally occur. If you have any problems or questions after discharge, please call your doctor. ACTIVITY ? You may resume your regular activity but move at a slower pace for the next 24 hours. ? Take frequent rest periods for the next 24 hours. ? Walking will help expel (get rid of) the air and reduce the bloated feeling in your abdomen. ? No driving for 24 hours (because of the anesthesia (medicine) used during the test). ? You may shower. ? Do not sign any important legal documents or operate any machinery for 24 hours (because of the anesthesia used during the test). NUTRITION ? Drink plenty of fluids. ? You may resume your normal diet. ? Begin with a light meal and progress to your normal diet. ? Avoid alcoholic beverages for 24 hours or as instructed by your caregiver. MEDICATIONS ? You may resume your normal medications unless your caregiver tells you otherwise. WHAT YOU CAN EXPECT TODAY ? You may experience abdominal discomfort such as a feeling of fullness or ?gas? pains. FOLLOW-UP ? Your doctor will discuss the results of your test with you. SEEK IMMEDIATE MEDICAL ATTENTION IF ANY OF THE FOLLOWING OCCUR: ? Excessive nausea (feeling sick to your stomach) and/or vomiting. ? Severe abdominal pain and distention (swelling). ? Trouble swallowing. ? Temperature over 100 F (37.8? C). ? Rectal bleeding or vomiting of blood. Document Released: 11/06/2004 Document Re-Released: 09/16/2006 [employer]? Patient Information ?2009 [employer]. Esophagitis Esophagitis is inflammation of the esophagus. The esophagus is the tube that carries food from the mouth to the stomach. Esophagitis can cause soreness or pain in the esophagus. This condition can make it difficult and painful to swallow. What are the causes? Most causes of esophagitis are not serious. Common causes of this condition include: ? Gastroesophageal reflux disease (GERD). This is when stomach contents move back up into the esophagus (reflux). ? Repeated vomiting. ? An allergic reaction, especially caused by food allergies (eosinophilic esophagitis). ? Injury to the (more content not included)... Normal [facility] Comment on above: Result Comment: Elec tronically Signed By: Elma Vanessa I\.br\Date and Time Signed: 07/02/23 09:34 EDT Nicole 07-02-2023 Esophagogastroduodenosc opy Patient: IVELISSE GEE Age: 72 years Sex: Female : 1950 Associated Diagnoses: None Author: Shaun Goode MD Pre-Procedure Procedure Date 05/31/2023 09:18:00 . Procedure Type: Esophagogastroduodenosco py with biopsy. Procedure provider Performed by Shaun Goode MD. Current history and physical Documented on chart. Informed Consent After discussing the rationale, risks and benefits, and alternatives to this procedure, the patient provided signed consent for the procedure. Pre-procedure diagnosis: Epigastric pain. Medications (Selected) Inpatient Medications Ordered Lactated Ringers IV Monica 1000 mL 1,000 mL: 1,000 mL, IV, 100 mL/hr, Routine, Start date 07/02/23 7:43:00 EDT, 10 hour(s), Total volume (mL): 1,000, 72.1 kg, 1.76, m2 Sodium Chloride 0.9% IV Monica 1000 mL 1,000 mL: 1,000 mL, IV, 20 mL/hr, Routine, Start date 07/02/23 7:35:00 EDT, 50 hour(s), Total volume (mL): 1,000, 72.1 kg, 1.76, m2 Prescriptions Prescribed Linzess 145 mcg oral capsule: 145 mcg = 1 cap(s), Oral, Daily, # 30 cap(s), Refills(s) 5, Pharmacy: [facility]/pharmacy #[id number], 155, cm, 06/26/23 12:22:00 EDT, Height/Length Dosing, 72.1, kg, 06/26/23 12:22:00 EDT, Weight Dosing Documented Medications Documented Alavert: 10 mg, Oral, Daily, Refills(s) 0, Allergy symptoms Ozempic: SubCutaneous, qWeek, Refill(s) 0, Blood glucose atorvastatin 10 mg Tab: 10 mg = 1 tab(s), Oral, Daily, Refills(s) 0, High cholesterol benazepril 20 mg Tab: 20 mg = 1 tab(s), Oral, Daily, Refills(s) 0, High blood pressure citalopram 40 mg Tab: 40 mg = 1 tab(s), Oral, Daily, Refills(s) 0, Anxiety levothyroxine 50 mcg (0.05 mg) Tab: 50 mcg = 1 tab(s), Oral, Daily, Refills(s) 0, Thyroid lorazepam: Oral, q8hr, PRN as needed for anxiety, Refills(s) 0 traZODONE 50 mg Tab: 50 mg = 1 tab(s), Oral, Once a day (at bedtime), Refills(s) 0, Sleep ASA Classification: Class II. . Monitoring: See anesthesia record. . Procedure The procedure was performed in the hospital. See anesthesia record for sedation given during procedure. The patient was positioned starting in the left lateral decubitus position. Endoscope type used was, introduced orally, advanced to the 2nd portion of the duodenum. No difficulty was encountered during the procedure. Views were excellent. The patient tolerated the procedure well. Findings Z-line was irregular at 35 cm Nonobstructing Schatzki's ring LA grade a esophagitis Hiatal hernia measuring 3 cm Widely open GE valve Patchy erythema of the stomach consistent with mild gastropathy status post biopsies Normal examined duodenum status post biopsies Images Procedure images: Rec_hd_video_ [id number].jpg Rec_hd_video_ [id number].jpg Rec_hd_video_ [id number].jpg Rec_hd_video_ [id number].jpg Rec_hd_video_ [id number].jpg Rechd_video_ [id number].jpg . Post-Procedure Complications: none. Estimated blood loss: none. Specimens: sent to pathology. Devices/ implants: none left in place. Impression and Plan EGD: Diagnosis: Esophagitis, reflux (ZGR57-JC K21.00, Working, Medical). Course: Progressing as expected. Education and Follow-up: Counseled: Family. Notes: Start Protonix 40 mg once daily Might benefit from Carafate in the future. [facility] Comment on above: Other Comment: Kathy hernandez Attachment - attachment storage system not supported [id number] Can be viewed in source system Missing Attachment - attachment storage system not supported [id number] Can be viewed in source system Missing Attachment - attachment storage system not supported [id number] Can be viewed in source system Missing Attachment - attachment storage system not supported [id number] Can be viewed in source system Missing Attachment - attachment storage system not supported [id number] Can be viewed in source system Missing Attachment - attachment storage system not supported [id number] Can be viewed in source system Main OR PACU I Recordon 06-07 Main OR PACU I Record PACU Phase I Docum ent Type FT Summary Primary Physician: Shaun Goode MD Finalized Date/Time: 07/02/23 10:08:53 Pt. Name: IVELISSE GEE/Sex: 1950 Female Med Rec #: [id number] Physician: Shaun Goode MD Financial #: [id number] Pt. Type: O Room/Bed: / Admit/Disch: 07/02/23 08:33:49 - Institution: Case Times PACU I FT Pre-Care Text: Identifies barriers to communication and implements measures to provide psychological support Develops individualized plan of care, and ensures continuity of care Maintains patient's dignity and privacy, and maintains patient confidentiality Identifies and reports philosophical, cultural, and spiritual beliefs and values Identifies individual values and wishes concerning care Implements aseptic technique, and administers prescribed antibiotic therapy and immunizing agents as ordered Evaluates postoperative tissue perfusion Implements thermoregulation measures, and monitors body temperature Evaluates postoperative respiratory status Evaluates postoperative cardiac status Evaluates postoperative neurological status Assesses pain control, collaborated in initiating patient-controlled analgesia and implements alternative methods of pain control Verifies allergies, administers prescribed medications and solutions, evaluates response to medications Entry 1 In PACU I 07/02/23 09:25:00 Discharge from PACU 07/02/23 09:55:00 I Outcomes Met? Yes Last Modified By: Elma Vanessa I 07/02/23 10:08:14 Post-Care Text: The patient demonstrates knowledge of the expected response to the operative or invasive procedure The patient's care is consistent with the individualized perioperative plan of care The patient's right to privacy is maintained The patient's value system, lifestyle, ethnicity, and culture are considered, respected, and incorporated into the perioperative plan of care The patient participates in decisions affecting his or her perioperative plan of care The patient is free from signs and symptoms of infection The patient has wound/tissue perfusion consistent with or improved from baseline levels established preoperatively The patient is at or returning to normothermia at the conclusion of the immediate postoperative period The patient's respiratory function is consistent with or improved from baseline levels established preoperatively The patient's cardiovascular status is consistent with or improved from baseline levels established preoperatively The patient's cardiovascular status is consistent with or improved from baseline levels established preoperatively The patient demonstrates and/or reports adequate pain control throughout the perioperative period The patient received appropriate medication(s), safely administered during the perioperative period Acuity Level PACU I FT Entry 1 Start Time 07/02/23 09:25:00 Stop Time 07/02/23 09:55:00 Acuity Level Acuity Level I Last Modified By: Elma Vanessa I 07/02/23 10:08:24 Finalized By: Elma Vanessa I Document Signatures Signed By: Elma Vanessa I 07/02/23 10:08 [facility] Main OR Preoperative Recordo n 07-02-2023 Main OR Preoperative Record Holding Area Document Type FT Summary Primary Physician: Shaun Goode MD Finalized Date/Time: 07/02/23 08:43:45 Pt. Name: IVELISSE GEE/Sex: 1950 Female Med Rec #: [id number] Physician: Shaun Goode MD Financial #: [id number] Pt. Type: O Room/Bed: / Admit/Disch: 07/02/23 08:33:49 - Institution: Case Times Holding FT Pre-Care Text: Verifies consent for planned procedure, identifies individual values and wishes concerning care, includes family members in perioperative teaching Secures patient's records' belongings, and valuables, maintains patient's dignity and privacy, and maintains patient confidentiality Entry 1 In Holding 07/02/23 08:38:00 Outcomes Met? Yes Last Modified By: Alex Calhoun RN 07/02/23 08:41:50 Post-Care Text: The patient participates in decisions affecting his or her perioperative plan of care The patient's right to privacy is maintained Surgery Checklist FT Entry 1 Patient Birthday, ID Band Procedure History and Physical, Identification: Check, Patient Verification: Surgical Consent, With Participation Patient NPO after Midnight: Yes Results Reviewed n/a Comments: Personal Items: Glasses Personal Items jacket, shoes, glasses, Comment: metal in left shoulder Limitations: none Complaints of Pain: No Pain Comment: denies pain at this time Operative Site n/a Marking: Marked By: n/a Location: n/a Availability Equipment Verified: Does Patient Smoke No Patient states Yes Comment - Adult - Butch postop adult Supervision supervision available Case Cancelled in No Holding Area see comments below for reason Last Modified By: Alex Calhoun RN 07/02/23 08:43:44 Finalized By: Alex Calhoun RN Document Signatures Signed By: Alex Calhoun RN 07/02/23 08:43 Normal [facility] Monitor Recordon 07-02-2023 Monitor Record [id number] FF Normal [facility] Monitor Record [id number] [id number]#[id number] FF Normal [facility] AFPon 06-27-2023 AFP.tumor marker [Mass/Vol] 3.5 ng/mL Invalid Interpretation Code 0.0-9.2 [facility] Comment on above: Result Comment: [employer] Electrochemiluminescence Immunoassay (ECLIA) Values obtained with different assay methods or kits cannot be used interchangeably. Results cannot be interpreted as absolute evidence of the presence or absence of malignant disease. This test is not interpretable in females. Performed at: [address] [id number] PhD Isidoro Pak Performed By: #### [id number] ####[facility] [id number] [place] [address] Consent for Procedure/Surger yon 06-27-2023 Consent for Procedure/Surgery [id number]#[id number] F Normal [facility] Ambulatory Visit Summaryon 0 06-26-2023 Ambulatory Visit Summary IVELISSE GEE :1950 Visit Date:06/26/2023 Ambulatory Visit Instructions Your Diagnosis Epigastric pain Cirrhosis of liver Fatty liver S/P cholecystectomy H/O: hysterectomy Constipation by outlet dysfunction Generalized abdominal tenderness Your Care Team Attending Physician - Rupa CERRATO, Shaun Xiao Primary Care Physician - CARMEN CONLEY MD This Is Your Medications List linaclotide (Linzess 145 mcg oral capsule) Contact prescribing physician if questions or concerns atorvastatin (atorvastatin 10 mg Tab) benazepril (benazepril 20 mg Tab) citalopram (citalopram 40 mg Tab) levothyroxine (levothyroxine 50 mcg (0.05 mg) Tab) loratadine (Alavert) lorazepam semaglutide (Ozempic) trazodone (traZODONE 50 mg Tab) Procedures Performed Arm, Bladder, Gallbladder, Hand, Hysterectomy. Discharge Vitals Heart Rate (Peripheral) 80 Respiratory Rate 16 Blood Pressure 138/82 Height 155 cm Height 61 in Weight 72.1 kg Weight 158.62 lb BMI 30.01 What to do next Scheduled Follow-Up Appointments August. 2023 2:00 PM EDT With: Karmen CERRATO, Deonte Roth Where: [facility] You Need to Complete the Following Alpha Fetoprotein Tumor Marker, Blood, Routine collect, 06/26/23, Order for future visit, Lab Collect, Cirrhosis of liver, Print Label By Order Location Medications What How Much When Instructions New linaclotide (Linzess 145 mcg oral capsule) 1 Capsules By Mouth Every day Refills: 5 Printed Prescription Unchanged atorvastatin (atorvastatin 10 mg Tab) Contact prescribing physician if questions or concerns Unchanged benazepril (benazepril 20 mg Tab) Contact prescribing physician if questions or concerns Unchanged citalopram (citalopram 40 mg Tab) Contact prescribing physician if questions or concerns Unchanged levothyroxine (levothyroxine 50 mcg (0.05 mg) Tab) Contact prescribing physician if questions or concerns Unchanged loratadine (Alavert) Contact prescribing physician if questions or concerns Unchanged lorazepam Contact prescribing physician if questions or concerns Unchanged semaglutide (Ozempic) Contact prescribing physician if questions or concerns Unchanged trazodone (traZODONE 50 mg Tab) Contact prescribing physician if questions or concerns Allergies Adhesive Bandage (Rash) sulfa drugs (Hives) Patient Survey You may receive a survey via text or e-mail asking about your office visit. Please share your experience with us by completing your survey. We appreciate your feedback and thank you for choosing us for your care. [facility] Consent for Treatmenton 06-07 Consent for Treatment [id number] F Normal [facility] Gastroenterology Office/Clin ic Noteon 06-26-2023 Gastroenterology Office/Clinic Note Chief Complaint Dr Mejía ref for epigastric pain HPI Staff This is a 72 year old male who presents today for a referral by Yael for complaints of epigastric pain, radiates to the back. heartburn was taking Rybelsus but then stopped and switched to Ozempic. CT 08/2022 IMPRESSION: 1. No acute abnormality of the abdomen and pelvis. 2. Cirrhotic morphology of liver with splenomegaly present. 3. Hyperdense lesion in the left kidney is stable in size from the remote prior studies, likely hemorrhagic cyst. 4. Tiny fat density lesion in the right kidney is stable, likely an angiomyolipoma. 5. Prior cholecystectomy and hysterectomy. Lab results WBC 8.1 (4.0-11.0) 10 3/uL RBC 4.52 (4.20-5.40) 10 6/uL Hgb 14.2 (12.0-16.0) g/dL Hct 42.2 (36.0-48.0) % MCV 93.4 (81.0-99.0) fL MCH 31.4 (26.7-34.0) pg MCHC 33.6 (29.9-35.2) g/dL RDW 12.1 (11.0-15.0) % Plt Count 169 (150-450) 10 3/uL MPV 9.6 (9.5-13.5) fL Abs Immat Gran (auto) 0.02 (0.00-0.03) 10 3/uL Imm/Tot Granulo (auto) 0.2 (0.0-0.5) % D-Dimer 0.23 (<=0.59) mg/L FEU Total Bilirubin 0.7 (0.2-1.0) mg/dL Direct Bilirubin 0.1 (0.0-0.2) mg/dL AST 21 (15-37) U/L ALT 47 (14-59) U/L Alkaline Phosphatase 106 (46-116) U/L Troponin I High Sens <4.0 L 4.6 (4.0-51.3) pg/mL Total Protein 8.3 H (6.4-8.2) g/dL Albumin 3.9 (3.4-5.0) g/dL Globulin 4.4 g/dL Albumin/Globulin Ratio 0.9 Amylase 35 (25-115) U/L Lipase 55.0 (16.0-77.0) U/L History of Present Illness I have reviewed HPI staff note, most recent labs and imaging, more than 30 minutes spent reviewing the chart, during encounter, placing orders and counseling the patient. Pain in the back started about 5 weeks ago radiated to the epigastric area came with terrible heartburn pt is following up with cardiology and she is getting stress test still with pain in the epigastric area and GERd s.p amanda 10 yea a ago lots of AI diseases in the family hx of fatty liver- cirrhosis on imaging - work up in the past showed fatty liver lost 15 pounds in the last 2 years pt with constipation - moves her bowels every 3 days with laxitives Pt with hx of long standing constipation since she was a child s/p hysterectomy Review of Systems PHQ Score Initial Depression Screen Score: 0 SCORE All systems reviewed, negative except as mentioned above Physical Exam Vitals & Measurements HR: 80(Peripheral) RR: 16 BP: 138/82 HT: 61 in HT: 155 cm WT: 72.1 kg WT: 158.62 lb BMI: 30.01 General: alert, no acute distress HEENT: atraumatic normocephalic Cardiovascular: regular rate and rhythm, normal peripheral perfusion Respiratory: Lungs CTA, respirations non labored Extremities: no deformity, no trauma Abdomen: Benign, soft, tender nondistended Assessment/Plan 1. Epigastric pain (R10.13: Epigastric pain) Ordered: EGD Endoscopy (Hospital Procedure) 2. Cirrhosis of liver (K74.60: Unspecified cirrhosis of liver) Ordered: Alpha Fetoprotein Tumor Marker EGD Endoscopy (Hospital Procedure) 3. Fatty liver (K76.0: Fatty (change of) liver, not elsewhere classified) Ordered: EGD Endoscopy (Hospital Procedure) 4. S/P cholecystectomy (Z90.49: Acquired absence of other specified parts of digestive tract) 5. H/O: hysterectomy (Z90.710: Acquired absence of both cervix and uterus) 6. 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 Generalized abdominal tenderness (R10.817: Generalized abdominal tenderness) Orders: linaclotide, 145 mcg = 1 cap(s), Oral, Daily, # 30 cap(s), Refills(s) 5 Schedule upper endoscopy to evaluate epigastric pain and GERD Advised to lose weight and eat healthy Advised to drink 2 to 3 cups of medium roast coffee every day Start Linzess 145 mcg daily Advised to work on having 1-2 bowel movements every day by using qead-[id number]-[id number] laxatives such as senna Advised to massage the belly and do squatty potty Advised to consume prunes and kiwi fruit Check alpha-fetoprotein Follow-up No qualifying data available Problem List/Past Medical History Ongoing No qualifying data Historical No qualifying data Procedure/Surgical History Arm, Bladder, Gallbladder, Hand, Hysterectomy. Medications Alavert atorvastatin 10 mg Tab benazepril 20 mg Tab citalopram 40 mg Tab levothyroxine 50 mcg (0.05 mg) Tab Linzess 145 mcg oral capsule, 145 mcg= 1 cap(s), Oral, Daily, 5 refills lorazepam Ozempic traZODONE 50 mg Tab Allergies Adhesive Bandage (Rash) sulfa drugs (Hives) Social History Tobacco - Denies Tobacco Use, 06/21/2023 Never (less than 100 in lifetime) Tobacco Use:., 06/26/2023 Family History Family history is negative Immunizations Vaccine Date Status influenza virus vaccine, inactivated 01/01/2019 Recorded influenza virus vaccine, inactivated 12/17/2017 Recorded influenza virus vaccine, inactivated 04/09/2016 Recorded Normal [facility] Comment on above: Result Comment: Elec tronically Signed By: Rupa CERRATO, Shaun Resendiz.elyse\Date and Time Signed: 06/26/23 13:09 EDT Physician Orderon 06-24-2023 Physician Order [id number] Normal [facility] Heart and Vascular Office/Cl inic Noteon 06-23-2023 Heart and Vascular Office/Clinic Note Chief Complaint here to establish care History of Present Illness The patient presents for evaluation of chest pain. Around 5 weeks ago, she suddenly experienced sharp back pain reminiscent of stabbing sensations, which persisted for 3 days and disrupted her sleep. Initially attributing it to her fibromyalgia or a potential injury, she later realized it was accompanied by severe indigestion. Concerned it might be a heart attack, she went to the hospital, where she underwent an EKG, blood work, and a lung x-ray. She had been using Rybelsus for 3 months to manage her diabetes, a medication known to cause severe gastrointestinal issues. Scheduled for an appointment on 06/26/2023. She went back to [facility], although it made her feel unwell. Notably, her past EKGs consistently showed abnormalities. She has not undergone stress testing, catheterization, or echocardiograms. Approximately 30 years ago, she was informed she had a leaky heart valve. Currently, she is on blood pressure medication. She occasionally experiences panic attacks, which may contribute to blood pressure fluctuations. Her mother and grandmother had aneurysms in the stomach and hernias. Review of Systems Constitutional: no fever, no sweats, no weakness Skin: no rash, no lesions, no bruising/petechiae ENMT: no sore throat, no congestion, no hoarseness Respiratory: no shortness of breath, no cough, no orthopnea, no wheezing Cardiovascular: no chest pain, no palpitations, no edema Gastrointestinal: no nausea, no vomiting, no diarrhea, no GI bleeding Genitourinary: no anuria/oliguria no hematuria Musculoskeletal: no back pain, no trauma Neurologic: no headache, no dizziness, no numbness, no weakness Psychiatric: no sleeping problems, no irritability, no anxiety/depression. Heme/Lymph: no bleeding tendency, no bruising tendency Allergy/Immunologic: no recurrent infections, no impaired immunity Additional ROS info: Except as noted in the above Review of Systems and in the History of Present Illness all other systems have been reviewed and are negative or noncontributory Physical Exam Vitals & Measurements HR: 96(Peripheral) BP: 138/68 SpO2: 95% HT: 61 in HT: 155 cm WT: 72.1 kg WT: 158.62 lb BMI: 30.01 Vital Signs Heart rate is 106 bpm. General: alert, no acute distress Skin: warm, dry intact Head: atraumatic, normocephalic Neck: trachea midline, no JVD, no bruit Eye: normal conjunctiva, sclera clear ENMT: oral mucosa moist Cardiovascular: regular rate and rhythm, no murmur, normal peripheral perfusion Respiratory: lungs CTA, respirations non labored Chest wall: no deformity. Gastrointestinal: soft, non-distended, no tenderness, no guarding. Back: no tenderness, normal ROM, normal alignment. Extremities: no edema, no deformity, no trauma Neurological: oriented x 4, LOC appropriate for age, sensation equal & normal bilaterally, speech normal Psychiatric: cooperative, affect appropriate for age, normal judgement, normal psychiatric thoughts. Assessment/Plan Chest pain. She has some risk factors for blockage with her diabetes. I will put her on a monitor and do a stress test. Obesity Diet and exercise as tolerated is recommended to promote weight loss and improve cardiovascular wellness. Portions of this record may have been created with voice recognition artificial intelligence software, specifically [employer], [employer] and or [employer]. Substitutions may have occurred due to the inherent limitations of voice recognition and artificial intelligence software. ATTESTATION: Documentation services were performed after patient or guardian consented to allow [employer] to record this visit. SAMUEL child care development specialist and provider reviewed before signing. SAMUEL: Reneelisa Byrd Follow-up No qualifying data available Problem List/Past Medical History Ongoing No qualifying data Historical No qualifying data Medications Alavert atorvastatin 10 mg Tab benazepril 20 mg Tab citalopram 40 mg Tab levothyroxine 50 mcg (0.05 mg) Tab lorazepam Ozempic tizanidine 4 mg oral capsule traZODONE 50 mg Tab Allergies Adhesive Bandage (Rash) sulfa drugs (Hives) Social History Tobacco - Denies Tobacco Use, 06/21/2023 [facility] Comment on above: Result Comment: Elec tronically Signed By: Karmen CERRATO, Deonte Roth\.br\Date and Time Signed: 06/23/23 11:02 EDT\.br\Electronically Co-Signed By: Renee Byrd\.br\Date and Time Co-Signed: 06/21/23 19:23 EDT Ambulatory Visit Summaryon 0 06-21-2023 Ambulatory Visit Summary IVELISSE GEE :1950 Visit Date:06/21/2023 Ambulatory Visit Instructions Your Care Team Attending Physician - Karmen CERRATO, Deonte Roth Primary Care Physician - YAEL CERRATO, CARMEN Referring Physician - CARMEN CONLEY MD This Is Your Medications List atorvastatin (atorvastatin 10 mg Tab) benazepril (benazepril 20 mg Tab) citalopram (citalopram 40 mg Tab) levothyroxine (levothyroxine 50 mcg (0.05 mg) Tab) loratadine (Alavert) lorazepam semaglutide (Ozempic) tizanidine (tizanidine 4 mg oral capsule) trazodone (traZODONE 50 mg Tab) Discharge Vitals Heart Rate (Peripheral) 96 Blood Pressure 138/68 Height 155 cm Height 61 in Weight 72.1 kg Weight 158.62 lb BMI 30.01 What to do next Scheduled Follow-Up Appointments Saturday 12:30 PM EDT With: Rupa CERRATO, Shaun Xiao Where: [facility] Consent for Treatmenton 06-06 Consent for Treatment [id number]#[id number] F [facility] Physician Referralon 024 Physician Referral [id number]#1.00TIF F [facility] Referrals Officeon 4 Referrals Office [id number]#1.00TIF F [facility] Physician Orderon 05-30-2023 Physician Order [id number]#1.00TIF F Normal [facility] Referrals Officeon 4 Referrals Office [id number]#1.00TIF F Normal [facility] CREATININEon 08-08-2022 Creatinine [Mass/Vol] 0.94 mg/dL Normal 0.55-1.02 [facility] Comment on above: Performed By: #### L IPA, HSTROPN, TSH, CMP #### [facility] [address], [place] [address] Dr. Juan Zamarripa EGFR-AF GREEK >60 Normal >=60 [facility] Comment on above: Performed By: #### L IPA, HSTROPN, TSH, CMP #### [facility] [address], [place] [address] Dr. Juan Zamarripa EGFR-NON AF GREEK 58 mL/min/1.73m2 Critically low >=60 [facility] Comment on above: Performed By: #### L IPA, HSTROPN, TSH, CMP #### [facility] [address], [place] [address] ABD/PELVIS WO CONon [...] stable. No renal calculus or hydronephrosis identified. Gastrointestinal/Periton eum: No acute abnormality. The appendix is unremarkable. [...] by: CARO SIBLEY Date: 2022-08-08 13:42 Normal [facility] Urine Cultureon 07-24-2022 Bacteria identified Cx Nom (U) No Growth 2 Days PERFORMED BY: [place] [address] PATHOLOGIST SHOE STAINER JAIMIE RIVERA M.D. Normal [facility] Comment on above: Performed By: #### C UU #### [facility] [address] [place] [address] PNEUMOCOCCAL IM (23 SEROTYPE )on 07-07-2022 Pneumo Ab Type 1* 2.8 ug/mL Normal >1.3 The [facility] Comment on above: Performed By: #### L IPA, HSTROPN, TSH, CMP #### [facility] [address] [place] [address] [address] Juan Zamarripa Pneumo Ab Type 12 (12F)* 0.2 ug/mL Critically low >1.3 [facility] Comment on above: Performed By: #### L IPA, HSTROPN, TSH, CMP #### [facility] [address] [address] [address] Juan Zamarripa Pneumo Ab Type 14* >18.7 Normal >1.3 The [facility] Comment on above: Performed By: #### L IPA, HSTROPN, TSH, CMP #### [facility] [address] [address] [address] Juan Zamarripa Pneumo Ab Type 17 (17F)* >20.2 Normal >1.3 [facility] Comment on above: Performed By: #### L IPA, HSTROPN, TSH, CMP #### [facility] [address] [address] [address] Juan Zamarripa Pneumo Ab Type 19 (19F)* 21.7 ug/mL Normal >1.3 [facility] Comment on above: Performed By: #### L IPA, HSTROPN, TSH, CMP #### [facility] [address] [address] [address] Juan Zamarripa Pneumo Ab Type 2* 5.7 ug/mL Normal >1.3 The [facility] Comment on above: Performed By: #### L IPA, HSTROPN, TSH, CMP #### [facility] [address] [address] [address] Juan Zamarripa Pneumo Ab Type 20* 4.0 ug/mL Normal >1.3 The [facility] Comment on above: Performed By: #### L IPA, HSTROPN, TSH, CMP #### [facility] [address] [place] [address] Dr. Juan Zamarripa Pneumo Ab Type 22 (22F)* 1.5 ug/mL Normal >1.3 [facility] Comment on above: Performed By: #### L IPA, HSTROPN, TSH, CMP #### [facility] [address] [address] [address] Juan Zamarripa Pneumo Ab Type 23 (23F)* 3.4 ug/mL Normal >1.3 [facility] Comment on above: Performed By: #### L IPA, HSTROPN, TSH, CMP #### [facility] [address] [address] [address] Juan Zamarripa Pneumo Ab Type 26 (6B)* 3.0 ug/mL Normal >1.3 [facility] Comment on above: Performed By: #### L IPA, HSTROPN, TSH, CMP #### [facility] [address] [address] [address] Juan Zamarripa Pneumo Ab Type 3* 1.6 ug/mL Normal >1.3 The [facility] Comment on above: Performed By: #### L IPA, HSTROPN, TSH, CMP #### [facility] [address] [address] [address] Juan Zamarripa Pneumo Ab Type 34 (10A)* 4.4 ug/mL Normal >1.3 [facility] Comment on above: Performed By: #### L IPA, HSTROPN, TSH, CMP #### [facility] [address] [address] [address] Juan Zamarripa Pneumo Ab Type 4* 1.6 ug/mL Normal >1.3 [facility] Comment on above: Performed By: #### L IPA, HSTROPN, TSH, CMP #### [facility] [address] [address] [address] Juan Zamarripa Pneumo Ab Type 43 (11A)* >7.6 Normal >1.3 [facility] Comment on above: Performed By: #### L IPA, HSTROPN, TSH, CMP #### [facility] [address] [address] [address] Juan Zamarripa Pneumo Ab Type 5* 2.0 ug/mL Normal >1.3 The [facility] Comment on above: Performed By: #### L IPA, HSTROPN, TSH, CMP #### [facility] [address] [address] [address] Juan Zamarripa Pneumo Ab Type 51 (7F)* 0.9 ug/mL Critically low >1.3 [facility] Comment on above: Performed By: #### L IPA, HSTROPN, TSH, CMP #### [facility] [address] [address] [address] Juan Zamarripa Pneumo Ab Type 54 (15B)* >22.0 Normal >1.3 [facility] Comment on above: Performed By: #### L IPA, HSTROPN, TSH, CMP #### [facility] [address] [address] [address] Juan Zamarripa Pneumo Ab Type 56 (18C)* >8.1 Normal >1.3 [facility] Comment on above: Performed By: #### L IPA, HSTROPN, TSH, CMP #### [facility] [address] [place] [address] Dr. Juan Zamarripa Pneumo Ab Type 57 (19A)* 2.5 ug/mL Normal >1.3 [facility] Comment on above: Performed By: #### L IPA, HSTROPN, TSH, CMP #### [facility] [address] [place] [address] Dr. Juan Zamarripa Pneumo Ab Type 68 (9V)* >13.4 Normal >1.3 [facility] Comment on above: Performed By: #### L IPA, HSTROPN, TSH, CMP #### [facility] [address] [place] [address] Dr. Juan Zamarripa Pneumo Ab Type 70 (33F)* >10.1 Normal >1.3 [facility] Comment on above: Result Comment: *Thi s test was developed and its performance characteristics determined by [employer]. It has not been cleared or approved by the U.S. Food and Drug Administration. Performed By: #### L IPA, HSTROPN, TSH, CMP #### [facility] [address] [place] [address] Dr. Juan Zamarripa Pneumo Ab Type 8* 1.2 ug/mL Critically low >1.3 [facility] Comment on above: Performed By: #### L IPA, HSTROPN, TSH, CMP #### [facility] [address] [place] [address] Dr. Juan Zamarripa Pneumo Ab Type 9 (9N)* 1.7 ug/mL Normal >1.3 [facility] Comment on above: Performed By: #### L IPA, HSTROPN, TSH, CMP #### [facility] [address] [place] [address] Dr. Juan Zamarripa BORDETELLA PERTUSSIS AB IGGo n 07-05-2022 B pertussis IgG Ab 1.53 index Invalid Interpretation Code 0.00-0.94 [facility] Comment on above: Result Comment: Clgil nt Requested Flag Negative <0.95 Equivocal 0.95 - 1.04 Positive >1.04 Performed By: #### A 1C #### [facility] [address] [place] [address] Dr. Juan Zamarripa TETANUS DIPTHERIA AB PROFILE on 07-05-2022 Diphtheria Antitoxoid Ab 0.29 IU/mL Normal <0.10 [facility] Comment on above: Result Comment: Inte rpretation: Non-Protective <0.10 Protective >=0.10 . For research use only. Performed By: #### C BC #### [facility] [address] [place] [address] Dr. Juan Zamarripa Tetanus Antitoxoid IgG Ab 0.94 IU/mL Normal <0.10 [facility] Comment on above: Result Comment: Inte rpretation: Non-Protective <0.10 Protective >=0.10 Results for this test are for research purposes only by the assay's sweeper cleaner [employer]. The performance characteristics of this product have not been established. Results should not be used as a diagnostic procedure without confirmation of the diagnosis by another medically established diagnostic product or procedure. Performed By: #### C BC #### [facility] [address] [place] [address] Dr. Jaun Zamarripa HAEMOPHILUS INFLUENZA B IGGo n 07-04-2022 Haemophilus influenzae B IgG 0.21 ug/mL Normal [facility] Comment on above: Result Comment: NOTE : An anti-Hib level of 0.15 ug/mL is generally accepted as the minimum level for protection. Optimal protection post-vaccination requires a level greater than 1.00 ug/mL. Performed By: #### L IPA, HSTROPN, TSH, CMP #### [facility] [address] [place] [address] Dr. Juan Zamarripa IMMUNOGLOBULINS IGA/IGM/IGG QUANTITATIVEon 07-03-2022 Immunoglobulin A, Qn, Serum 219 mg/dL Normal 64-422 [facility] Comment on above: Performed By: #### L IPA, HSTROPN, TSH, CMP #### [facility] [address] [place] [address] Dr. Juan Zamarripa Immunoglobulin G, Qn, Serum 1365 mg/dL Normal [phone] [facility] Comment on above: Performed By: #### L IPA, HSTROPN, TSH, CMP #### [facility] [address] [place] [address] [address] Juan Zamarripa Immunoglobulin M, Qn, Serum 66 mg/dL Normal 26-217 [facility] Comment on above: Performed By: #### L IPA, HSTROPN, TSH, CMP #### [facility] [address] [place] [address] [address] Juan Zamarripa LYMPHOCYTE ACTIVITY PROFILEo n 07-03-2022 %CD3+CD25+Lymphs 20.3 % Normal 4.9-25.9 [facility] Comment on above: Result Comment: This test was developed and its performance characteristics determined by [employer]. It has not been cleared or approved by the Food and Drug Administration. Performed at: BN Performed By: #### L YMACT #### [facility] [address] [place] [address] Dr. Juan Zamarripa %CD8+CD57+Lymphs 16.6 % Critically high 0.0-11.3 [facility] Comment on above: Result Comment: This test was developed and its performance characteristics determined by [facility]. It has not been cleared or approved by the Food and Drug Administration. Performed at: BN Performed By: #### L YMACT #### [facility] [address] [place] [address] Dr. Juan Zamarripa Abs CD 4 helper 986 /uL Normal [phone] [facility] Comment on above: Result Comment: Perf ormed at: CB Performed By: #### L YMACT #### [facility] [address] [place] [address] Dr. Juan Zamarripa Abs. CD 8 Supp 898 /uL Critically high 109-897 [facility] Comment on above: Result Comment: Perf ormed at: CB Performed By: #### L YMACT #### [facility] [address] [address] [address] Juan Zamarripa Abs.CD3+CD25+Lymphs 447 /uL Normal 79-535 [facility] Comment on above: Result Comment: This test was developed and its performance characteristics determined by [facility]. It has not been cleared or approved by the Food and Drug Administration. Performed at: CB Performed By: #### L YMACT #### [facility] [address] [place] [address] Dr. Juan Zamarripa Abs.CD8+CD57+Lymphs 365 /uL Critically high 0-254 [facility] Comment on above: Result Comment: This test was developed and its performance characteristics determined by [facility]. It has not been cleared or approved by the Food and Drug Administration. Performed at: CB Performed By: #### L YMACT #### [facility] [address] [place] [address] Dr. Juan Zamarripa Absolute CD 3 1918 /uL Normal [phone] [facility] Comment on above: Result Comment: Perf ormed at: CB Performed By: #### L YMACT #### [facility] [address] [place] [address] Dr. Juan Zamarripa Basophils (Bld) [#/Vol] 0.0 10*3/uL Normal 0.0-0.2 [facility] Comment on above: Result Comment: Perf ormed at: CB Performed By: #### L YMACT #### [facility] [address] [place] [address] Dr. Juan Zamarripa Basophils/100 WBC (Bld) 1 % Normal Not Estab. T [facility] Comment on above: Result Comment: Perf ormed at: CB Performed By: #### L YMACT #### [facility] [address] [place] [address] Dr. Juan Zamarripa CD4/CD8 Ratio 1.10 Normal 0.92-3.72 [facility] Comment on above: Result Comment: Perf ormed at: BN Performed By: #### L YMACT #### [facility] [address] [place] [address] Dr. Juan Zamarripa Eosinophils (Bld) [#/Vol] 0.1 10*3/uL Normal 0.0-0.4 [facility] Comment on above: Result Comment: Perf ormed at: CB Performed By: #### L YMACT #### [facility] [address] [address] [address] Juan Zamarripa Eosinophils/100 WBC (Bld) 1 % Normal Not Estab. [facility] Comment on above: Result Comment: Perf ormed at: CB Performed By: #### L YMACT #### [facility] [address] [place] [address] Dr. Juan Zamarripa Erythrocyte distribution width (RBC) [Ratio] 12.6 % Normal 11.7-15.4 [facility] Comment on above: Result Comment: Perf ormed at: CB Performed By: #### L YMACT #### [facility] [address] [place] [address] Dr. Juan Zamarripa Hematocrit (Bld) [Volume fraction] 41.9 % Normal 34.0-46.6 [facility] Comment on above: Result Comment: Perf ormed at: CB Performed By: #### L YMACT #### [facility] [address] [place] [address] Dr. Juan Zamarripa Hematology Comments Normal [facility] Comment on above: Result Comment: Perf ormed at: CB Performed By: #### L YMACT #### [facility] [address] [place] [address] Dr. Juan Zamarripa Hemoglobin (Bld) [Mass/Vol] 14.2 g/dL Normal 11.1-15.9 [facility] Comment on above: Result Comment: Perf ormed at: CB Performed By: #### L YMACT #### [facility] [address] [place] [address] Dr. Juan Zamarripa Immature Cells Normal [facility] Comment on above: Result Comment: Perf ormed at: CB Performed By: #### L YMACT #### [facility] [address] [place] [address] Dr. Juan Zamarripa Immature Grans (Abs) 0.0 x10E3/uL Normal 0.0-0.1 Th [facility] Comment on above: Result Comment: Perf ormed at: CB Performed By: #### L YMACT #### [facility] [address] [place] [address] Dr. Juan Zamarripa Immature granulocytes/100 WBC (Bld) 0 % Normal Not Estab. [facility] Comment on above: Result Comment: Perf ormed at: CB Performed By: #### L YMACT #### [facility] [address] [place] [address] Dr. Juan Zamarripa Lymphocytes (Bld) [#/Vol] 2.2 10*3/uL Normal 0.7-3.1 [facility] Comment on above: Result Comment: Perf ormed at: CB Performed By: #### L YMACT #### [facility] [address] [place] [address] Dr. Juan Zamarripa Lymphocytes/100 WBC (Bld) 87.2 % Critically high 57.5-86.2 [facility] Comment on above: Result Comment: Perf ormed at: BN Performed By: #### L YMACT #### [facility] [address] [place] [address] Dr. Juan Zamarripa Lymphocytes/100 WBC (Bld) 44.8 % Normal 30.8-58.5 [facility] Comment on above: Result Comment: Perf ormed at: BN Performed By: #### L YMACT #### [facility] [address] [place] [address] Dr. Juan Zamarripa Lymphocytes/100 WBC (Bld) 40.8 % Critically high 12.0-35.5 [facility] Comment on above: Result Comment: Perf ormed at: BN Performed By: #### L YMACT #### [facility] [address] [place] [address] Dr. Juan Zamarripa Lymphocytes/100 WBC (Bld) 34 % Normal Not Estab. [facility] Comment on above: Result Comment: Perf ormed at: CB Performed By: #### L YMACT #### [facility] [address] [place] [address] Dr. Juan Zamarripa MCH (RBC) [Entitic mass] 31.3 pg Normal 26.6-33.0 [facility] Comment on above: Result Comment: Perf ormed at: CB Performed By: #### L YMACT #### [facility] [address] [place] [address] Dr. Juan Zamarripa MCHC (RBC) [Mass/Vol] 33.9 g/dL Normal 31.5-35.7 [facility] Comment on above: Result Comment: Perf ormed at: CB Performed By: #### L YMACT #### [facility] [address] [address] [address] Juan Zamarripa MCV (RBC) [Entitic vol] 92 fL Normal 79-97 [facility] Comment on above: Result Comment: Perf ormed at: CB Performed By: #### L YMACT #### [facility] [address] [place] [address] Dr. Juan Zamarripa Monocytes (Bld) [#/Vol] 0.3 10*3/uL Normal 0.1-0.9 [facility] Comment on above: Result Comment: Perf ormed at: CB Performed By: #### L YMACT #### [facility] [address] [place] [address] Dr. Juan Zamarripa Monocytes/100 WBC (Bld) 4 % Normal Not Estab. T [facility] Comment on above: Result Comment: Perf ormed at: CB Performed By: #### L YMACT #### [facility] [address] [place] [address] Dr. Juan Zamarripa Neutrophils Absolute 4.0 x10E3/uL Normal 1.4-7.0 [facility] Comment on above: Result Comment: Perf ormed at: CB Performed By: #### L YMACT #### [facility] [address] [place] [address] Dr. Juan Zamarripa Neutrophils/100 WBC (Bld) 60 % Normal Not Estab. [facility] Comment on above: Result Comment: Perf ormed at: CB Performed By: #### L YMACT #### [facility] [address] [place] [address] Dr. Juan Zamarripa NRBC Normal [facility] Comment on above: Result Comment: Perf ormed at: CB Performed By: #### L YMACT #### [facility] [address] [address] [address] Juan Zamarripa Platelets (Bld) [#/Vol] 164 10*3/uL Normal 150-450 [facility] Comment on above: Result Comment: Perf ormed at: CB Performed By: #### L YMACT #### [facility] [address] [place] [address] Dr. Juan Zamarripa RBC (Bld) [#/Vol] 4.54 10*6/uL Normal 3.77-5.28 [facility] Comment on above: Result Comment: Perf ormed at: CB Performed By: #### L YMACT #### [facility] [address] [place] [address] Dr. Juan Zamarripa WBC (Bld) [#/Vol] 6.6 10*3/uL Normal 3.4-10.8 [facility] Comment on above: Result Comment: Perf ormed at: CB Performed By: #### L YMACT #### [facility] [address] [place] [address] Dr. Juan Zamarripa PROF 14(COMP METB)on 023 Albumin [Mass/Vol] 4.1 g/dL Normal 3.4-5.0 [facility] Comment on above: Performed By: #### L IPA, HSTROPN, TSH, CMP #### [facility] [address] [place] [address] Dr. Juan Zamarripa Albumin/Globulin [Mass ratio] 1.1 {ratio} Normal [facility] Comment on above: Performed By: #### L IPA, HSTROPN, TSH, CMP #### [facility] [address] [place] [address] Dr. Juan Zamarripa ALP [Catalytic activity/Vol] 107 U/L Normal 46-116 [facility] Comment on above: Performed By: #### L IPA, HSTROPN, TSH, CMP #### [facility] [address] [place] [address] Dr. Juan Zamarripa ALT [Catalytic activity/Vol] 69 U/L Critically high 14-59 [facility] Comment on above: Performed By: #### L IPA, HSTROPN, TSH, CMP #### [facility] [address] [address] [address] Juan Zamarripa Anion gap [Moles/Vol] 14.0 mmol/L Normal Th e [facility] Comment on above: Performed By: #### L IPA, HSTROPN, TSH, CMP #### [facility] [address] [place] [address] Dr. Juan Zamarripa AST [Catalytic activity/Vol] 31 U/L Normal 15-37 [facility] Comment on above: Performed By: #### L IPA, HSTROPN, TSH, CMP #### [facility] [address] [address] [address] Juan Zamarripa Bilirubin [Mass/Vol] 0.8 mg/dL Normal 0.2-1.0 [facility] Comment on above: Performed By: #### L IPA, HSTROPN, TSH, CMP #### [facility] [address] [place] [address] Dr. Juan Zamarripa Calcium [Mass/Vol] 9.1 mg/dL Normal 8.5-10.1 [facility] Comment on above: Performed By: #### L IPA, HSTROPN, TSH, CMP #### [facility] [address] [place] [address] Dr. Juan Zamarripa Chloride [Moles/Vol] 104 mmol/L Normal 98-107 [facility] Comment on above: Performed By: #### L IPA, HSTROPN, TSH, CMP #### [facility] [address] [place] [address] Dr. Juan Zamarripa CO2 [Moles/Vol] 28.1 mmol/L Normal 21.0-32.0 [facility] Comment on above: Performed By: #### L IPA, HSTROPN, TSH, CMP #### [facility] [address] [place] [address] Dr. Juan Zamarripa Creatinine [Mass/Vol] 0.77 mg/dL Normal 0.55-1.02 [facility] Comment on above: Performed By: #### L IPA, HSTROPN, TSH, CMP #### [facility] [address] [address] [address] Juan Zamarripa EGFR-AF GREEK >60 Normal >=60 [facility] Comment on above: Performed By: #### L IPA, HSTROPN, TSH, CMP #### [facility] [address] [address] [address] uJan Zamarripa EGFR-NON AF GREEK >60 Normal >=60 [facility] Comment on above: Performed By: #### L IPA, HSTROPN, TSH, CMP #### [facility] [address] [address] [address] Juan Zamarripa Globulin (S) [Mass/Vol] 3.9 g/dL Normal [facility] Comment on above: Performed By: #### L IPA, HSTROPN, TSH, CMP #### [facility] [address] [place] [address] Dr. Juan Zamarripa Glucose [Mass/Vol] 186 mg/dL Critically high 74-106 [facility] Comment on above: Performed By: #### L IPA, HSTROPN, TSH, CMP #### [facility] [address] [address] [address] Juan Zamarripa Potassium [Moles/Vol] 4.1 mmol/L Normal 3.5-5.1 [facility] Comment on above: Performed By: #### L IPA, HSTROPN, TSH, CMP #### [facility] [address] [address] [address] Juan Zamarripa Protein [Mass/Vol] 8.0 g/dL Normal 6.4-8.2 [facility] Comment on above: Performed By: #### L IPA, HSTROPN, TSH, CMP #### [facility] [address] [address] [address] Juan Zamarripa Sodium [Moles/Vol] 142 mmol/L Normal 136-145 [facility] Comment on above: Performed By: #### L IPA, HSTROPN, TSH, CMP #### [facility] [address] [address] [address] Juan Zamarripa Urea nitrogen [Mass/Vol] 9.0 mg/dL Normal 7.0-18.0 [facility] Comment on above: Performed By: #### L LAKISHA MCNEIL TSH, CMP #### [facility] [address] [place] [address] Dr. Juan Zamarripa Urea nitrogen/Creatinine [Mass ratio] 11.7 mg/mg Normal [facility] Comment on above: Performed By: #### L LAKISHA MCNEIL, TSH, CMP #### [facility] [address] [place] [address] Dr. Juan Zamarripa CULTURE URINEon 06-12-2022 CULTURE URINE Culture Observations : LIGHT GROWTH OF MIXED GENITAL ALDA. NO POTENTIAL PATHOGENS SEEN. Normal [facility] Comment on above: Performed By: #### U RCX #### [facility] [address] [place] [address] Dr. Juan Zamarripa UA RANDOMon 06-12-2022 Glucose Ql (U) 100 mg/dl Abnormal NEGATIVE [facility] Comment on above: Performed By: #### U A #### [facility] [address] [place] [address] Dr. Juan Zamarripa LEUKOCYTES SMALL Abnormal NEGATIVE [facility] Comment on above: Performed By: #### U A #### [facility] [address] [place] [address] Dr. Juan Zamarripa SPEC GRAVITY 1.015 Normal 1.005-<=1. 025 [facility] Comment on above: Performed By: #### U A #### [facility] [address] [place] [address] Dr. Juan MANZO PROTEIN Negative Normal NEGATIVE/ TRACE [facility] Comment on above: Performed By: #### U A #### [facility] [address] [place] [address] Dr. Juan Zamarripa Urobilinogen Qn (U) 0.2 {Amee'U}/dL Normal 0.2 - 1. 0 [facility] Comment on above: Performed By: #### U A #### [facility] [address] [place] [address] Dr. Juan Zamarripa Urinalysison 06-12-2022 Glucose Ql (U) 100 mg/dl Abnormal NEGATIVE mg/dl [facility] Other Urinalysis see note [facility] Other Urinalysis 1.015 1.005-<=1. 025 [facility] Other Urinalysis Negative NEGATIVE/ TRACE mg/dl [employer] Other Urinalysis 0.2 EU/dl 0.2 - 1.0 EU/dl [facility] Other Urinalysis SMALL Abnormal NEGATIVE [employer] Other Bilirubin Ql (U) Negative Normal NEGATIVE [employer] Other Comment on above: Performed By: #### U A #### [facility] [address] [address] [address] Juan Zamarripa Clarity (U) CLEAR Normal CLEAR [employer] Other Comment on above: Performed By: #### U A #### [facility] [address] [address] [address] Juan Zamarripa Color (U) LT. YELLOW Normal YELLOW [employer] Other Comment on above: Performed By: #### U A #### [facility] [address] [address] [address] Juan Zamarripa Hemoglobin Ql (U) Negative Normal NEGATIVE [employer] Other Comment on above: Performed By: #### U A #### [facility] [address] [address] [address] Juan Zamarripa Ketones Ql (U) Negative Normal NEGATIVE [employer] Other Comment on above: Performed By: #### U A #### [facility] [address] [address] [address] Juan Zamarripa Nitrite Ql (U) Negative Normal NEGATIVE [employer] Other Comment on above: Performed By: #### U A #### [facility] [address] [address] [address] Juan Zamarripa pH (U) 6.0 [pH] Normal 5-9 [employer] Other Comment on above: Performed By: #### U A #### [facility] [address] [address] [address] Juan Zamarripa CULTURE URINEon 04-25-2022 CULTURE URINE Isolate 1 Enterococcus faecalis 25,000 cfu/mL of ORGANISM 1 Enterococcus faecalis ANTIBIOTIC M.I.C RX STATUS Beta-Lactamase Pos POS F Benzylpenicillin 2 S F Ampicillin <=2 S F Gentamicin High Level (synergy) SYN-S S F Streptomycin High Level (synergy) SYN-S S F Ciprofloxacin 1 S F Levofloxacin 1 S F Quinupristin/Dalfopristi n 4 R F Linezolid 2 S F Vancomycin 1 S F Tetracycline <=1 S F Nitrofurantoin <=16 S F Normal [facility] Comment on above: Performed By: #### A 1C #### [facility] [address] [place] [address] Dr. Juan Zamarripa TL by IFAon 04-24-2022 Antinuclear Antibodies, IFA Positive Abnormal [facility] Comment on above: Result Comment: Nega tive <1:80 Borderline 1:80 Positive >1:80 Performed By: #### L IPA, HSTROPN, TSH, CMP #### [facility] [address] [place] [address] Dr. Juan Zamarripa Centriole Pattern Normal [facility] Comment on above: Performed By: #### L IPA, HSTROPN, TSH, CMP #### [facility] [address] [place] [address] Dr. Juan Zamarripa Centromere Pattern Normal [facility] Comment on above: Performed By: #### L IPA, HSTROPN, TSH, CMP #### [facility] [address] [place] [address] Dr. Juan Zamarripa Homogeneous Pattern 1:160 Critically high [facility] Comment on above: Result Comment: ICAP nomenclature: AC-1 Performed By: #### L IPA, HSTROPN, TSH, CMP #### [facility] [address] [place], [place] [address] Dr[address] Juan Zamarripa Midbody Pattern Normal [facility] Comment on above: Performed By: #### L IPA, HSTROPN, TSH, CMP #### [facility] [address] [place], [place] [address] Dr[address] Juan Zamarripa Note: Comment Normal [facility] Comment on above: Result Comment: For [...] titers Nucleosomes, Histones Drug-induced SLE Speckled Sm, LUMBER DRIVER, SCL-70, SLE,MCTD,PSS (diffuse form), SS-A/SS-B Sjogrens Nucleolar SCL-70, PM-1/SCL High titers Scleroderma, PM/DM Centromere Centromere PSS (limited form) w/Crest syndrome variable Nuclear Dot [id number] Primary Biliary Cirrhosis Nuclear GP210, Primary Biliary Cirrhosis Membrane trinity A,B,C Performed By: #### L IPA, HSTROPN, TSH, CMP #### [facility] [address] [place] [address] Dr. Juan Zamarripa Nuclear Dot Pattern Normal [facility] Comment on above: Performed By: #### L IPA, HSTROPN, TSH, CMP #### [facility] [address] [place] [address] Dr. Juan Zamarripa Nuclear Membrane Pattern Normal [facility] Comment on above: Performed By: #### L IPA, HSTROPN, TSH, CMP #### [facility] [address] [address] [address] Juan Zamarripa Nucleolar Pattern Normal [facility] Comment on above: Performed By: #### L IPA, HSTROPN, TSH, CMP #### [facility] [address] [place] [address] Dr. Juan Zamarripa PCNA Pattern Normal [facility] Comment on above: Performed By: #### L IPA, HSTROPN, TSH, CMP #### [facility] [address] [address] [address] Juan Zamarripa Speckled Pattern 1:160 Critically high [facility] Comment on above: Result Comment: ICAP nomenclature: AC-2,4,5,29 Performed By: #### L IPA, HSTROPN, TSH, CMP #### [facility] [address] [address] [address] Juan Zamarripa Spindle Apparatus Pattern Normal [facility] Comment on above: Performed By: #### L IPA, HSTROPN, TSH, CMP #### [facility] [address] [place] [address] Dr. Juan Zamarripa RHEUMATOID FACTORon 04-24-19 RA Latex Turbid. <10.0 Normal <14.0 [facility] Comment on above: Performed By: #### L IPA, HSTROPN, TSH, CMP #### [facility] [address] [place] [address] Dr. Juan Zamarripa CBC AUTO DIFFon 04-23-2022 BASO # 0.0 103/ul Normal 0.0-0.1 [facility] Comment on above: Performed By: #### C BC #### [facility] [address] [place] [address] Dr. Juan Zamarripa Basophils/100 WBC (Bld) 0.4 % Normal 0.2-2.0 [facility] Comment on above: Performed By: #### C BC #### [facility] [address] [place] [address] Dr. Juan Zamarripa EO # 0.1 103/ul Normal 0.0-0.7 [facility] Comment on above: Performed By: #### C BC #### [facility] [address] [place] [address] Dr. Juan Zamarripa Eosinophils/100 WBC (Bld) 1.8 % Normal 0.9-7.0 [facility] Comment on above: Performed By: #### C BC #### [facility] [address] [place] [address] Dr. Jaun Zamarripa Erythrocyte distribution width (RBC) [Ratio] 12.6 % Normal 11.0-15.0 [facility] Comment on above: Performed By: #### C BC #### [facility] [address] [place] [address] Dr. Juan Zamarripa Hematocrit (Bld) [Volume fraction] 36.9 % Normal 36.0-48.0 [facility] Comment on above: Performed By: #### C BC #### [facility] [address] [place] [address] Dr. Juan Zamarripa Hemoglobin (Bld) [Mass/Vol] 12.6 g/dL Normal 12.0-16.0 [facility] Comment on above: Performed By: #### C BC #### [facility] [address] [place] [address] Dr. Juan Zamarripa IG # 0.02 10e3/ul Normal 0.00-0.03 [facility] Comment on above: Performed By: #### C BC #### [facility] [address] [place] [address] Dr. Juan Zamarripa IG % 0.3 % Normal 0.0-0.5 [facility] Comment on above: Performed By: #### C BC #### [facility] [address] [place] [address] Dr. Juan Zamarripa LYMPH # 3.3 103/ul Normal 1.2-3.8 [facility] Comment on above: Performed By: #### C BC #### [facility] [address] [place] [address] Dr. Juan Zamarripa Lymphocytes/100 WBC (Bld) 42.9 % Normal 20.5-60.0 [facility] Comment on above: Performed By: #### C BC #### [facility] [address] [place] [address] Dr. Juan Zamarripa MANUAL DIFF REQ NO Normal [facility] Comment on above: Performed By: #### C BC #### [facility] [address] [place] [address] Dr. Juan aZmarripa MCH (RBC) [Entitic mass] 31.2 pg Normal 26.7-34.0 [facility] Comment on above: Performed By: #### C BC #### [facility] [address] [address] [address] Juan Zamarripa MCHC (RBC) [Mass/Vol] 34.1 g/dL Normal 29.9-35.2 [facility] Comment on above: Performed By: #### C BC #### [facility] [address] [address] [address] Juan Zamarripa MCV (RBC) [Entitic vol] 91.3 fL Normal 81.0-99.0 [facility] Comment on above: Performed By: #### C BC #### [facility] [address] [address] [address] Juan Zamarripa MONO # 0.3 103/ul Normal 0.3-0.8 [facility] Comment on above: Performed By: #### C BC #### [facility] [address] [place] [address] Dr. Juan Zamarripa Monocytes/100 WBC (Bld) 4.4 % Normal 1.7-12.0 [facility] Comment on above: Performed By: #### C BC #### [facility] [address] [address] [address] Juan Zamarripa NEUT # 3.9 103/ul Normal 1.4-6.5 [facility] Comment on above: Performed By: #### C BC #### [facility] [address] [address] [address] Juan Zamarripa Neutrophils/100 WBC (Bld) 50.2 % Normal 43.0-75.0 [facility] Comment on above: Performed By: #### C BC #### [facility] [address] [address] [address] Juan Zamarripa Platelet mean volume (Bld) [Entitic vol] 9.0 fL Critically low 9.5-13.5 [facility] Comment on above: Performed By: #### C BC #### [facility] [address] [address] [address] Juan Zamarripa PLT 158 103/ul Normal 150-450 [facility] Comment on above: Performed By: #### C BC #### [facility] [address] [place] [address] Dr. Juan Zamarripa RBC 4.04 106/ul Critically low 4.20-5.40 [facility] Comment on above: Performed By: #### C BC #### [facility] [address] [address] [address] Juan Zamarripa WBC 7.8 103/ul Normal 4.0-11.0 [facility] Comment on above: Performed By: #### C BC #### [facility] [address] [place] [address] Dr. Juan Zamarripa CULTURE BLOODon 04-23-2022 Microscopic examination of blood, culture Culture Observations: NO GROWTH AT 5 DAYS. Normal [facility] Comment on above: Performed By: #### A 1C #### [facility] [address] [place] [address] Dr. Juan Zamarripa PROF 14(COMP METB)on 023 Albumin [Mass/Vol] 4.0 g/dL Normal 3.4-5.0 [facility] Comment on above: Performed By: #### L IPA, HSTROPN, TSH, CMP #### [facility] [address] [place] [address] Dr. Juan Zamarripa Albumin/Globulin [Mass ratio] 1.0 {ratio} Normal [facility] Comment on above: Performed By: #### L IPA, HSTROPN, TSH, CMP #### [facility] [address] [place] [address] Dr. Juan Zamarripa ALP [Catalytic activity/Vol] 87 U/L Normal 46-116 [facility] Comment on above: Performed By: #### L IPA, HSTROPN, TSH, CMP #### [facility] [address] [place] [address] Dr. Juan Zamarripa ALT [Catalytic activity/Vol] 78 U/L Critically high 14-59 [facility] Comment on above: Performed By: #### L IPA, HSTROPN, TSH, CMP #### [facility] [address] [place] [address] Dr. Juan Zamarripa Anion gap [Moles/Vol] 12.4 mmol/L Normal [facility] Comment on above: Performed By: #### L IPA, HSTROPN, TSH, CMP #### [facility] [address] [address] [address] Juan Zamarripa AST [Catalytic activity/Vol] 39 U/L Critically high 15-37 [facility] Comment on above: Performed By: #### L IPA, HSTROPN, TSH, CMP #### [facility] [address] [address] [address] Juan Zamarripa Bilirubin [Mass/Vol] 0.7 mg/dL Normal 0.2-1.0 [facility] Comment on above: Performed By: #### L IPA, HSTROPN, TSH, CMP #### [facility] [address] [address] [address] Juan Zamarripa Calcium [Mass/Vol] 9.6 mg/dL Normal 8.5-10.1 [facility] Comment on above: Performed By: #### L IPA, HSTROPN, TSH, CMP #### [facility] [address] [address] [address] Juan Zamarripa Chloride [Moles/Vol] 101 mmol/L Normal 98-107 [facility] Comment on above: Performed By: #### L IPA, HSTROPN, TSH, CMP #### [facility] [address] [address] [address] Juan Zamarripa CO2 [Moles/Vol] 29.5 mmol/L Normal 21.0-32.0 [facility] Comment on above: Performed By: #### L IPA, HSTROPN, TSH, CMP #### [facility] [address] [address] [address] Juan Zamarripa Creatinine [Mass/Vol] 0.84 mg/dL Normal 0.55-1.02 [facility] Comment on above: Performed By: #### L IPA, HSTROPN, TSH, CMP #### [facility] [address] [address] [address] Juan Zamarripa EGFR-AF GREEK >60 Normal >=60 [facility] Comment on above: Performed By: #### L IPA, HSTROPN, TSH, CMP #### [facility] [address] [address] [address] Juan Zamarripa EGFR-NON AF GREEK >60 Normal >=60 [facility] Comment on above: Performed By: #### L IPA, HSTROPN, TSH, CMP #### [facility] [address] [address] [address] Juan Zamarripa Globulin (S) [Mass/Vol] 4.0 g/dL Normal [facility] Comment on above: Performed By: #### L IPA, HSTROPN, TSH, CMP #### [facility] [address] [place] [address] Dr. Juan Zamarripa Glucose [Mass/Vol] 208 mg/dL Critically high 74-106 [facility] Comment on above: Performed By: #### L IPA, HSTROPN, TSH, CMP #### [facility] [address] [address] [address] Juan Zamarripa Potassium [Moles/Vol] 3.9 mmol/L Normal 3.5-5.1 [facility] Comment on above: Performed By: #### L IPA, HSTROPN, TSH, CMP #### [facility] [address] [place] [address] Dr. Juan Zamarripa Protein [Mass/Vol] 8.0 g/dL Normal 6.4-8.2 [facility] Comment on above: Performed By: #### L IPA, HSTROPN, TSH, CMP #### [facility] [address] [place] [address] Dr. Juan Zamarripa Sodium [Moles/Vol] 139 mmol/L Normal 136-145 [facility] Comment on above: Performed By: #### L IPA, HSTROPN, TSH, CMP #### [facility] [address] [place] [address] Dr. Juan Zamarripa Urea nitrogen [Mass/Vol] 15.0 mg/dL Normal 7.0-18.0 [facility] Comment on above: Performed By: #### L IPA, HSTROPN, TSH, CMP #### [facility] [address] [address] [address] Juan Zamarripa Urea nitrogen/Creatinine [Mass ratio] 17.9 mg/mg Normal [facility] Comment on above: Performed By: #### L IPA, HSTROPN, TSH, CMP #### [facility] [address] [place] [address] Dr. Juan Zamarripa SED RATE WESTERGRENon 2022 SED RATE 26 mm/hr Normal <=30 [facility] Comment on above: Performed By: #### L IPA, HSTROPN, TSH, CMP #### [facility] [address] [place] [address] Dr. Juan Zamarripa CULTURE BLOODon 04-18-2022 Microscopic [...] >=8 R C Clindamycin <=0.25 S C Quinupristin/Dalfopristi n 0.5 S C Linezolid 4 S C Vancomycin 1 S C Tetracycline 2 S C Rifampicin <=0.5 S C Trimethoprim/Sulfamethox azole <=10 S C Normal [facility] Comment on above: Performed By: #### A 1C #### [facility] [address] [place] [address] Dr. Juan Zamarripa CBC AUTO DIFFon 04-13-2022 BASO # 0.1 103/ul Normal 0.0-0.1 [facility] Comment on above: Performed By: #### C BC #### [facility] [address] [place] [address] Dr. Juan Zamarripa Basophils/100 WBC (Bld) 0.6 % Normal 0.2-2.0 [facility] Comment on above: Performed By: #### C BC #### [facility] [address] [place] [address] Dr. Juan Zamarripa EO # 0.2 103/ul Normal 0.0-0.7 [facility] Comment on above: Performed By: #### C BC #### [facility] [address] [place] [address] Dr. Juan Zamarripa Eosinophils/100 WBC (Bld) 1.6 % Normal 0.9-7.0 [facility] Comment on above: Performed By: #### C BC #### [facility] [address] [place] [address] Dr. Juan Zamarripa Erythrocyte distribution width (RBC) [Ratio] 12.6 % Normal 11.0-15.0 [facility] Comment on above: Performed By: #### C BC #### [facility] [address] [place] [address] Dr. Juan Zamarripa Hematocrit (Bld) [Volume fraction] 36.1 % Normal 36.0-48.0 [facility] Comment on above: Performed By: #### C BC #### [facility] [address] [place] [address] Dr. Juan Zamarripa Hemoglobin (Bld) [Mass/Vol] 12.5 g/dL Normal 12.0-16.0 [facility] Comment on above: Performed By: #### C BC #### [facility] [address] [place] [address] Dr. Juan Zamarripa IG # 0.02 10e3/ul Normal 0.00-0.03 [facility] Comment on above: Performed By: #### C BC #### [facility] [address] [place] [address] Dr. Juan Zamarripa IG % 0.2 % Normal 0.0-0.5 [facility] Comment on above: Performed By: #### C BC #### [facility] [address] [place] [address] Dr. Juan Zamarripa LYMPH # 4.8 103/ul Critically high 1.2-3.8 [facility] Comment on above: Performed By: #### C BC #### [facility] [address] [place] [address] Dr. Juna Zamarripa Lymphocytes/100 WBC (Bld) 49.6 % Normal 20.5-60.0 [facility] Comment on above: Performed By: #### C BC #### [facility] [address] [place] [address] Dr. Juan Zamarripa MANUAL DIFF REQ NO Normal [facility] Comment on above: Performed By: #### C BC #### [facility] [address] [place] [address] Dr. Juan Zamarripa MCH (RBC) [Entitic mass] 31.3 pg Normal 26.7-34.0 [facility] Comment on above: Performed By: #### C BC #### [facility] [address] [place] [address] Dr. Juan Zamarripa MCHC (RBC) [Mass/Vol] 34.6 g/dL Normal 29.9-35.2 [facility] Comment on above: Performed By: #### C BC #### [facility] [address] [place] [address] Dr. Juan Zamarripa MCV (RBC) [Entitic vol] 90.3 fL Normal 81.0-99.0 [facility] Comment on above: Performed By: #### C BC #### [facility] [address] [place] [address] Dr. Juan Zamarripa MONO # 0.5 103/ul Normal 0.3-0.8 [facility] Comment on above: Performed By: #### C BC #### [facility] [address] [place] [address] Dr. Juan Zamarripa Monocytes/100 WBC (Bld) 4.8 % Normal 1.7-12.0 [facility] Comment on above: Performed By: #### C BC #### [facility] [address] [place] [address] Dr. Juan Zamarripa NEUT # 4.2 103/ul Normal 1.4-6.5 [facility] Comment on above: Performed By: #### C BC #### [facility] [address] [address] [address] Juan Zamarripa Neutrophils/100 WBC (Bld) 43.2 % Normal 43.0-75.0 [facility] Comment on above: Performed By: #### C BC #### [facility] [address] [address] [address] Juan Zamarripa Platelet mean volume (Bld) [Entitic vol] 9.5 fL Normal 9.5-13.5 [facility] Comment on above: Performed By: #### C BC #### [facility] [address] [address] [address] Juan Zamarripa PLT 149 103/ul Critically low 150-450 [facility] Comment on above: Performed By: #### C BC #### [facility] [address] [address] [address] Juan Zamarripa RBC 4.00 106/ul Critically low 4.20-5.40 [facility] Comment on above: Performed By: #### C BC #### [facility] [address] [address] [address] Juan Zamarripa WBC 9.6 103/ul Normal 4.0-11.0 [facility] Comment on above: Performed By: #### C BC #### [facility] [address] [place] [address] Dr. Juan Zamarripa PROF CHEM 8 (BAS METB)on Anion gap [Moles/Vol] 11.4 mmol/L Normal [facility] Comment on above: Performed By: #### L IPA, HSTROPN, TSH, CMP #### [facility] [address] [address] [address] Juan Zamarripa Calcium [Mass/Vol] 8.7 mg/dL Normal 8.5-10.1 [facility] Comment on above: Performed By: #### L IPA, HSTROPN, TSH, CMP #### [facility] [address] [place] [address] Dr. Juan Zamarripa Chloride [Moles/Vol] 102 mmol/L Normal 98-107 [facility] Comment on above: Performed By: #### L IPA, HSTROPN, TSH, CMP #### [facility] [address] [address] [address] Juan Zamarripa CO2 [Moles/Vol] 28.5 mmol/L Normal 21.0-32.0 [facility] Comment on above: Performed By: #### L IPA, HSTROPN, TSH, CMP #### [facility] [address] [address] [address] Juan Zamarripa Creatinine [Mass/Vol] 0.88 mg/dL Normal 0.55-1.02 [facility] Comment on above: Performed By: #### L IPA, HSTROPN, TSH, CMP #### [facility] [address] [address] [address] Juan Zamarripa EGFR-AF GREEK >60 Normal >=60 [facility] Comment on above: Performed By: #### L IPA, HSTROPN, TSH, CMP #### [facility] [address] [address] [address] Juan Zamarripa EGFR-NON AF GREEK >60 Normal >=60 [facility] Comment on above: Performed By: #### L IPA, HSTROPN, TSH, CMP #### [facility] [address] [address] [address] Juan Zamarripa Glucose [Mass/Vol] 129 mg/dL Critically high 74-106 [facility] Comment on above: Performed By: #### L IPA, HSTROPN, TSH, CMP #### [facility] [address] [address] [address] Juan Zamarripa Potassium [Moles/Vol] 3.9 mmol/L Normal 3.5-5.1 [facility] Comment on above: Performed By: #### L IPA, HSTROPN, TSH, CMP #### [facility] [address] [address] [address] Juan Zamarripa Sodium [Moles/Vol] 138 mmol/L Normal 136-145 [facility] Comment on above: Performed By: #### L IPA, HSTROPN, TSH, CMP #### [facility] [address] [address] [address] Juan Zamarripa Urea nitrogen [Mass/Vol] 12.0 mg/dL Normal 7.0-18.0 [facility] Comment on above: Performed By: #### L IPA, HSTROPN, TSH, CMP #### [facility] [address] [place] [address] Dr. Juan Zamarripa Urea nitrogen/Creatinine [Mass ratio] 13.6 mg/mg Normal [facility] Comment on above: Performed By: #### L IPA, HSTROPN, TSH, CMP #### [facility] [address] [place] [address] Dr. Juan Zamarripa ACETONE SERUMon 04-12-2022 ACETONE Negative Normal NEGATIVE [facility] Comment on above: Performed By: #### C BC #### [facility] [address] [place] [address] Dr. Juan Zamarripa BLOOD CULTURE ID PANELon A. baumannii Not detected Normal NOT DETECTED [facility] Comment on above: Performed By: #### L IPA, HSTROPN, TSH, CMP #### [facility] [address] [place] [address] Dr. Juan Zamarripa Bacteriodes fragilis Not detected Normal NOT DETECTED [facility] Comment on above: Performed By: #### L IPA, HSTROPN, TSH, CMP #### [facility] [address] [place] [address] Dr. Juan Zamarripa BCID CONTROLS PASSED Normal [facility] Comment on above: Performed By: #### L IPA, HSTROPN, TSH, CMP #### [facility] [address] [place] [address] Dr. Juan Zamarripa BCIDBTHD BLOOD CULTURE BOTTLE INFORMATION Normal [facility] Comment on above: Performed By: #### L IPA, HSTROPN, TSH, CMP #### [facility] [address] [place] [address] Dr. Juan Zamarripa BCIDHD1 ANTIMICROBIAL RESIST ANCE GENES Normal [facility] Comment on above: Performed By: #### L IPA, HSTROPN, TSH, CMP #### [facility] [address] [address] [address] Juan Zamarripa BCIDHD2 SEE BELOW [facility] Comment on above: Result Comment: Note : Antimicrobial resitance can occur via multiple mechanisms. A Not Detected result for the [employer] antomicrobial resistance gene assays does not indicate antimicrobial susceptibility. Subculturing is required for species identification and susceptibility testing of isolates. Performed By: #### L IPA, HSTROPN, TSH, CMP #### [facility] [address] [address] [address] Juan Zamarripa BCIDHD3 Positive [facility] Comment on above: Performed By: #### L IPA, HSTROPN, TSH, CMP #### [facility] [address] [place] [address] Dr. Juan Zamarripa BCIDHD4 Negative Normal [facility] Comment on above: Performed By: #### L IPA, HSTROPN, TSH, CMP #### [facility] [address] [address] [address] Juan Zamarripa BCIDHD5 YEAST Normal [facility] Comment on above: Performed By: #### L IPA, HSTROPN, TSH, CMP #### [facility] [address] [address] [address] Juan Zamarripa Bottle Set: Set 1 Normal [facility] Comment on above: Performed By: #### L IPA, HSTROPN, TSH, CMP #### [facility] [address] [address] [address] Juan Zamarripa Bottle: Anaerobic Normal [facility] Comment on above: Performed By: #### L IPA, HSTROPN, TSH, CMP #### [facility] [address] [address] [address] Juan Zamarripa C. neoformans/gattii Not detected Normal NOT DETECTED [facility] Comment on above: Performed By: #### L IPA, HSTROPN, TSH, CMP #### [facility] [address] [address] [address] Juan Zamarripa Mary Lou albicans Not detected Normal NOT DETECTED [facility] Comment on above: Performed By: #### L IPA, HSTROPN, TSH, CMP #### [facility] [address] [place] [address] Dr. Juan Zamarripa Mary Lou auris Not detected Normal NOT DETECTED [facility] Comment on above: Performed By: #### L IPA, HSTROPN, TSH, CMP #### [facility] [address] [address] [address] Juan Zamarripa Mary Lou glabrata Not detected Normal NOT DETECTED [facility] Comment on above: Performed By: #### L IPA, HSTROPN, TSH, CMP #### [facility] [address] [place] [address] Dr. Juan Zamarripa Mary Lou Krusei Not detected Normal NOT DETECTED [facility] Comment on above: Performed By: #### L IPA, HSTROPN, TSH, CMP #### [facility] [address] [place] [address] Dr. Juan Zamarripa Mary Lou Parapsilosis Not detected Normal NOT DETECTED [facility] Comment on above: Performed By: #### L IPA, HSTROPN, TSH, CMP #### [facility] [address] [place] [address] Dr. Juan Zamarripa Mary Lou Tropicalis Not detected Normal NOT DETECTED [facility] Comment on above: Performed By: #### L IPA, HSTROPN, TSH, CMP #### [facility] [address] [place] [address] Dr. Juan Zamarripa CTX-M Resistant Gene Not Applicable Normal NOT DETECTED [facility] Comment on above: Performed By: #### L IPA, HSTROPN, TSH, CMP #### [facility] [address] [place] [address] Dr. Juan Zamarripa E. Cloacae complex Not detected Normal NOT DETECTED [facility] Comment on above: Performed By: #### L IPA, HSTROPN, TSH, CMP #### [facility] [address] [place] [address] Dr. Juan Zamarripa E. faecalis Not detected Normal NOT DETECTED [facility] Comment on above: Performed By: #### L IPA, HSTROPN, TSH, CMP #### [facility] [address] [place] [address] Dr. Juan Zamarripa E. faecium Not detected Normal NOT DETECTED [facility] Comment on above: Performed By: #### L IPA, HSTROPN, TSH, CMP #### [facility] [address] [place] [address] Dr. Juan Zamarripa Enterobacteriaceae Not detected Normal NOT DETECTED [facility] Comment on above: Performed By: #### L IPA, HSTROPN, TSH, CMP #### [facility] [address] [place] [address] Dr. Juan Zamarripa Escherichia coli Not detected Normal NOT DETECTED [facility] Comment on above: Performed By: #### L IPA, HSTROPN, TSH, CMP #### [facility] [address] [place] [address] Dr. Juan Zamarripa H. influenzae Not detected Normal NOT DETECTED [facility] Comment on above: Performed By: #### L IPA, HSTROPN, TSH, CMP #### [facility] [address] [place] [address] Dr. Juan Zamarripa IMP Resistant Gene Not Applicable Normal NOT DETECTED [facility] Comment on above: Performed By: #### L IPA, HSTROPN, TSH, CMP #### [facility] [address] [place] [address] Dr. Juan Zamarripa K. oxytoca Not detected Normal NOT DETECTED [facility] Comment on above: Performed By: #### L IPA, HSTROPN, TSH, CMP #### [facility] [address] [place] [address] Dr. Juan Zamarripa K. pneumoniae Not detected Normal NOT DETECTED [facility] Comment on above: Performed By: #### L IPA, HSTROPN, TSH, CMP #### [facility] [address] [address] [address] Juan Zamarripa Klebsiella aerogenes Not detected Normal NOT DETECTED [facility] Comment on above: Performed By: #### L IPA, HSTROPN, TSH, CMP #### [facility] [address] [place] [address] Dr. Juan Zamarripa KPC Resistant Gene Not Applicable Normal NOT DETECTED [facility] Comment on above: Performed By: #### L IPA, HSTROPN, TSH, CMP #### [facility] [address] [address] [address] Juan Zamarripa List. monocytogenes Not detected Normal NOT DETECTED [facility] Comment on above: Performed By: #### L IPA, HSTROPN, TSH, CMP #### [facility] [address] [address] [address] Juan Zamarripa Mcr-1 Resistant Gene Not Applicable Normal NOT DETECTED [facility] Comment on above: Performed By: #### L IPA, HSTROPN, TSH, CMP #### [facility] [address] [place] [address] Dr. Juan Zamarripa mecA/C Not Applicable Normal NOT DETECTED [facility] Comment on above: Performed By: #### L IPA, HSTROPN, TSH, CMP #### [facility] [address] [place] [address] Dr. Juan Zamarripa mecA/C MREJ Not Applicable Normal NOT DETECTED [facility] Comment on above: Performed By: #### L IPA, HSTROPN, TSH, CMP #### [facility] [address] [place] [address] Dr. Juan Zamarripa N. meningitidis Not detected Normal NOT DETECTED [facility] Comment on above: Performed By: #### L IPA, HSTROPN, TSH, CMP #### [facility] [address] [place] [address] Dr. Juan Zamarripa NDM Resistant Gene Not Applicable Normal NOT DETECTED [facility] Comment on above: Performed By: #### L IPA, HSTROPN, TSH, CMP #### [facility] [address] [place] [address] Dr. Juan Zamarripa Oxa-48-like Not Applicable Normal NOT DETECTED [facility] Comment on above: Performed By: #### L IPA, HSTROPN, TSH, CMP #### [facility] [address] [address] [address] Juan Zamarripa Proteus Not detected Normal NOT DETECTED [facility] Comment on above: Performed By: #### L IPA, HSTROPN, TSH, CMP #### [facility] [address] [address] [address] Juan Zamarripa Pseud. aeruginosa Not detected Normal NOT DETECTED [facility] Comment on above: Performed By: #### L IPA, HSTROPN, TSH, CMP #### [facility] [address] [address] [address] Juan Zamarripa S. maltophilia Not detected Normal NOT DETECTED [facility] Comment on above: Performed By: #### L IPA, HSTROPN, TSH, CMP #### [facility] [address] [place] [address] Dr. Juan Zamarripa Salmonella Not detected Normal NOT DETECTED [facility] Comment on above: Performed By: #### L IPA, HSTROPN, TSH, CMP #### [facility] [address] [place] [address] Dr. Juan Zamarripa Seratia marcescens Not detected Normal NOT DETECTED [facility] Comment on above: Performed By: #### L IPA, HSTROPN, TSH, CMP #### [facility] [address] [place] [address] Dr. Juan Zamarripa Site: Rt Ac Normal [facility] Comment on above: Performed By: #### L IPA, HSTROPN, TSH, CMP #### [facility] [address] [address] [address] Juan Zamarripa Staph. aureus Not detected Normal NOT DETECTED [facility] Comment on above: Performed By: #### L IPA, HSTROPN, TSH, CMP #### [facility] [address] [place] [address] Dr. Juan Zamarripa Staph. epidermidis Not detected Normal NOT DETECTED [facility] Comment on above: Performed By: #### L IPA, HSTROPN, TSH, CMP #### [facility] [address] [place] [address] Dr. Juan Zamarripa Staph. lugdunensis Not detected Normal NOT DETECTED [facility] Comment on above: Performed By: #### L IPA, HSTROPN, TSH, CMP #### [facility] [address] [place] [address] Dr. Juan Zamarripa Staphylococcus Detected Critically abnormal NOT DETECTED [facility] Comment on above: Performed By: #### L IPA, HSTROPN, TSH, CMP #### [facility] [address] [place] [address] Dr. Juan Zamarripa Strep. agalactiae Not detected Normal NOT DETECTED [facility] Comment on above: Performed By: #### L IPA, HSTROPN, TSH, CMP #### [facility] [address] [place] [address] Dr. Juan Zamarripa Strep. pneumoniae Not detected Normal NOT DETECTED [facility] Comment on above: Performed By: #### L IPA, HSTROPN, TSH, CMP #### [facility] [address] [place] [address] Dr. Juan Zamarripa Strep. pyogenes Not detected Normal NOT DETECTED [facility] Comment on above: Performed By: #### L IPA, HSTROPN, TSH, CMP #### [facility] [address] [place] [address] Dr. Juan Zamarripa Streptococcus Not detected Normal NOT DETECTED [facility] Comment on above: Performed By: #### L IPA, HSTROPN, TSH, CMP #### [facility] [address] [place] [address] Dr. Juan Zamarripa Aleyda/B Resist. Gene Not Applicable Normal NOT DETECTED [facility] Comment on above: Performed By: #### L IPA, HSTROPN, TSH, CMP #### [facility] [address] [place] [address] Dr. Juan Zamarripa VIM Resistant Gene Not Applicable Normal NOT DETECTED [facility] Comment on above: Performed By: #### L IPA, HSTROPN, TSH, CMP #### [facility] [address] [place] [address] Dr. Juan Zamarripa CBC AUTO DIFFon 04-12-2022 BASO # 0.1 103/ul Normal 0.0-0.1 [facility] Comment on above: Performed By: #### L IPA, HSTROPN, TSH, CMP #### [facility] [address] [place] [address] Dr. Juan Zamarripa Basophils/100 WBC (Bld) 0.6 % Normal 0.2-2.0 [facility] Comment on above: Performed By: #### L IPA, HSTROPN, TSH, CMP #### [facility] [address] [place] [address] Dr. Juan Zamarripa EO # 0.1 103/ul Normal 0.0-0.7 [facility] Comment on above: Performed By: #### L IPA, HSTROPN, TSH, CMP #### [facility] [address] [place] [address] Dr. Juan Zamarripa Eosinophils/100 WBC (Bld) 0.9 % Normal 0.9-7.0 [facility] Comment on above: Performed By: #### L IPA, HSTROPN, TSH, CMP #### [facility] [address] [place] [address] Dr. Juan Zamarripa Erythrocyte distribution width (RBC) [Ratio] 12.8 % Normal 11.0-15.0 [facility] Comment on above: Performed By: #### L IPA, HSTROPN, TSH, CMP #### [facility] [address] [place] [address] Dr. Juan Zamarripa Hematocrit (Bld) [Volume fraction] 42.9 % Normal 36.0-48.0 [facility] Comment on above: Performed By: #### L IPA, HSTROPN, TSH, CMP #### [facility] [address] [place] [address] Dr. Juan Zamarripa Hemoglobin (Bld) [Mass/Vol] 15.1 g/dL Normal 12.0-16.0 [facility] Comment on above: Performed By: #### L IPA, HSTROPN, TSH, CMP #### [facility] [address] [place] [address] Dr. Juan Zamarripa IG # 0.04 10e3/ul Critically high 0.00-0.03 [facility] Comment on above: Performed By: #### L IPA, HSTROPN, TSH, CMP #### [facility] [address] [place] [address] Dr. Juan Zamarripa IG % 0.3 % Normal 0.0-0.5 [facility] Comment on above: Performed By: #### L IPA, HSTROPN, TSH, CMP #### [facility] [address] [place] [address] Dr. Juan Zamarripa LYMPH # 5.0 103/ul Critically high 1.2-3.8 [facility] Comment on above: Performed By: #### L IPA, HSTROPN, TSH, CMP #### [facility] [address] [place] [address] Dr. Juan Zamarripa Lymphocytes/100 WBC (Bld) 43.6 % Normal 20.5-60.0 [facility] Comment on above: Performed By: #### L IPA, HSTROPN, TSH, CMP #### [facility] [address] [place] [address] Dr. Juan Zamarripa MANUAL DIFF REQ NO Normal [facility] Comment on above: Performed By: #### L IPA, HSTROPN, TSH, CMP #### [facility] [address] [place] [address] Dr. Juan Zamarripa MCH (RBC) [Entitic mass] 31.3 pg Normal 26.7-34.0 [facility] Comment on above: Performed By: #### L IPA, HSTROPN, TSH, CMP #### [facility] [address] [place] [address] Dr. Juan Zamarripa MCHC (RBC) [Mass/Vol] 35.2 g/dL Normal 29.9-35.2 [facility] Comment on above: Performed By: #### L IPA, HSTROPN, TSH, CMP #### [facility] [address] [place] [address] Dr. Juan Zamarripa MCV (RBC) [Entitic vol] 88.8 fL Normal 81.0-99.0 [facility] Comment on above: Performed By: #### L IPA, HSTROPN, TSH, CMP #### [facility] [address] [place] [address] Dr. Juan Zamarirpa MONO # 0.6 103/ul Normal 0.3-0.8 [facility] Comment on above: Performed By: #### L IPA, HSTROPN, TSH, CMP #### [facility] [address] [place] [address] Dr. Juan Zamarripa Monocytes/100 WBC (Bld) 5.2 % Normal 1.7-12.0 [facility] Comment on above: Performed By: #### L IPA, HSTROPN, TSH, CMP #### [facility] [address] [place] [address] Dr. Juan Zamarripa NEUT # 5.7 103/ul Normal 1.4-6.5 [facility] Comment on above: Performed By: #### L IPA, HSTROPN, TSH, CMP #### [facility] [address] [place] [address] Dr. Juan Zamarripa Neutrophils/100 WBC (Bld) 49.4 % Normal 43.0-75.0 [facility] Comment on above: Performed By: #### L IPA, HSTROPN, TSH, CMP #### [facility] [address] [place] [address] Dr. Juan Zamarripa Platelet mean volume (Bld) [Entitic vol] 9.6 fL Normal 9.5-13.5 [facility] Comment on above: Performed By: #### L IPA, HSTROPN, TSH, CMP #### [facility] [address] [place] [address] Dr. Juan Zamarripa PLT 210 103/ul Normal 150-450 [facility] Comment on above: Performed By: #### L IPA, HSTROPN, TSH, CMP #### [facility] [address] [place] [address] Dr. Juan Zamarripa RBC 4.83 106/ul Normal 4.20-5.40 [facility] Comment on above: Performed By: #### L IPA, HSTROPN, TSH, CMP #### [facility] [address] [place], [place] [address] Dr. Juan Zamarripa WBC 11.5 103/ul Critically high 4.0-11.0 [facility] Comment on above: Performed By: #### L IPA, HSTROPN, TSH, CMP #### [facility] [address] [place], [place] [address] ABD/PELV W CONon 04-12-19 CT ABD/PELV W CON EXAMINATION: CT ABD/ PELV W CON HISTORY: DIARRHEA, UNSPECIFIED COMPARISON: 09/17/2014 [...] angiomyolipoma. No renal calculus or hydronephrosis identified. Gastrointestinal/Periton eum: No acute abnormality. The appendix is unremarkable. [...] CARO SIBLEY Date: 2022-04-12 16:53 Normal [facility] CULTURE BLOODon 04-12-2022 Microscopic examination of blood, culture Culture Observations: NO GROWTH AT 5 DAYS. Isolate 1 [id number] Normal [facility] Comment on above: Performed By: #### A 1C #### [facility] [address] [place] [address] Dr. Juan Zamarripa CULTURE URINEon 04-12-2022 CULTURE URINE Culture Observations : MODERATE GROWTH OF MIXED GENITAL ALDA. NO POTENTIAL PATHOGENS SEEN. Normal [facility] Comment on above: Performed By: #### U RCX #### [facility] [address] [address] [address] Juan Zamarripa Covid-19 PCR ([facility])on SARS-CoV-2 (COVID-19) RNA SUNNY+probe Ql (Unsp spec) Not detected Normal NOT DETECTED [facility] Comment on above: Result Comment: When [...] for this test is supported by the [employer] of [employer] and Human Service's declaration that [...] #### L IPA, HSTROPN, TSH, CMP #### [facility] [address] [address] [address] Juan Zamarripa ER URINE PROFILEon 3 Bilirubin Ql (U) Negative Normal NEGATIVE [facility] Comment on above: Performed By: #### C BC #### [facility] [address] [place] [address] Dr. Juan Zamarripa Clarity (U) SL CLOUDY Abnormal CLEAR [facility] Comment on above: Performed By: #### C BC #### [facility] [address] [place] [address] Dr. Juan Zamarripa Color (U) LT. YELLOW Normal YELLOW [facility] Comment on above: Performed By: #### C BC #### [facility] [address] [place] [address] Dr. Juan Zamarripa ERUAHD A micrscopic examina tion will be performed if indicated. Normal [facility] Comment on above: Performed By: #### C BC #### [facility] [address] [place] [address] Dr. Juan Zamarripa Glucose Ql (U) 250 mg/dl Abnormal NEGATIVE [facility] Comment on above: Performed By: #### C BC #### [facility] [address] [place] [address] Dr. Juan Zamarripa Hemoglobin Ql (U) Negative Normal NEGATIVE [facility] Comment on above: Performed By: #### C BC #### [facility] [address] [place] [address] Dr. Juan Zamarripa Ketones Ql (U) TRACE Abnormal NEGATIVE [facility] Comment on above: Performed By: #### C BC #### [facility] [address] [place] [address] Dr. Juan Zamarripa LEUKOCYTES SMALL Abnormal NEGATIVE [facility] Comment on above: Performed By: #### C BC #### [facility] [address] [place] [address] Dr. Juan Zamarripa Nitrite Ql (U) Negative Normal NEGATIVE [facility] Comment on above: Performed By: #### C BC #### [facility] [address] [place] [address] Dr. Juan Zamarripa pH (U) 5.5 [pH] Normal 5-9 [facility] Comment on above: Performed By: #### C BC #### [facility] [address] [place] [address] Dr. Juan Zamarripa SPEC GRAVITY 1.030 Abnormal 1.005-<=1. 025 [facility] Comment on above: Performed By: #### C BC #### [facility] [address] [place] [address] Dr. Juan Zamarripa UA PROTEIN Negative Normal NEGATIVE/ TRACE [facility] Comment on above: Performed By: #### C BC #### [facility] [address] [place] [address] Dr. Juan Zamarripa UR MICRO IND INDICATED Normal [facility] Comment on above: Performed By: #### C BC #### [facility] [address] [place] [address] Dr. Juan Zamarripa Urobilinogen Qn (U) 0.2 {Amee'U}/dL Normal 0.2 - 1. 0 [facility] Comment on above: Performed By: #### C BC #### [facility] [address] [place] [address] Dr. Juan Zamarripa INFLUENZA A AND B AGon 04-12 INFLUHU [facility] SEE BELOW Normal [facility] Comment on above: Result Comment: Nega tive for Flu A protein angiten. Infection due to Flu A cannot be ruled out. Flu A angiten in the sample may be below the detection limit of the test. Performed By: #### L IPA, HSTROPN, TSH, CMP #### [facility] [address] [place] [address] Dr. Juan Zamarripa INFLUBNEGH SEE BELOW Normal [facility] Comment on above: Result Comment: Nega tive for Flu B protein antigen. Infection due to Flu B cannot be ruled out. Flu B antigen in the sample may be below the detection limit of the test. Performed By: #### L IPA, HSTROPN, TSH, CMP #### [facility] [address] [place] [address] Dr. Juan Zamarripa INFLUENZA A AG Negative Normal NEGATIVE SEE COMMENT [facility] Comment on above: Performed By: #### L IPA, HSTROPN, TSH, CMP #### [facility] [address] [place] [address] Dr. Juan Zamarripa INFLUENZA B AG Negative Normal NEGATIVE SEE COMMENT [facility] Comment on above: Performed By: #### L IPA, HSTROPN, TSH, CMP #### [facility] [address] [place] [address] Dr. Juan Zamarripa LACTATE/LACTIC ACIDon 2022 Lactate [Moles/Vol] 1.8 mmol/L Normal 0.4-1.9 [facility] Comment on above: Performed By: #### C BC #### [facility] [address] [place] [address] Dr. Juan Zamarripa Lactate [Moles/Vol] 3.1 mmol/L Critically high 0.4-1.9 [facility] Comment on above: Performed By: #### L IPA HSTROPN, TSH, CMP #### [facility] [address] [place] [address] Dr. Juan Zamarripa LIPASEon 04-12-2022 Lipase [Catalytic activity/Vol] 183.0 U/L Normal 73.0-393.0 [facility] Comment on above: Performed By: #### A 1C #### [facility] [address] [place] [address] Dr. Juan Zamarripa PH VENOUS BLOODon 04-12-2022 PCO2 VENOUS 42.9 mmHg Normal 40.0-52.0 [facility] Comment on above: Performed By: #### C BC #### [facility] [address] [place] [address] Dr. Juan Zamarripa pH VENOUS 7.383 Normal 7.330-7.43 0 [facility] Comment on above: Performed By: #### C BC #### [facility] [address] [place] [address] Dr. Juan Zamarripa PROF 14(COMP METB)on 023 Albumin [Mass/Vol] 4.3 g/dL Normal 3.4-5.0 [facility] Comment on above: Performed By: #### A 1C #### [facility] [address] [place] [address] Dr. Juan Zamarripa Albumin/Globulin [Mass ratio] 1.0 {ratio} Normal [facility] Comment on above: Performed By: #### A 1C #### [facility] [address] [address] [address] Juan Zamarripa ALP [Catalytic activity/Vol] 96 U/L Normal 46-116 [facility] Comment on above: Performed By: #### A 1C #### [facility] [address] [address] [address] Juan Zamarripa ALT [Catalytic activity/Vol] 80 U/L Critically high 14-59 [facility] Comment on above: Performed By: #### A 1C #### [facility] [address] [address] [address] Juan Zamarripa Anion gap [Moles/Vol] 14.7 mmol/L Normal Th e [facility] Comment on above: Performed By: #### A 1C #### [facility] [address] [place] [address] Dr. Juan Zamarripa AST [Catalytic activity/Vol] 45 U/L Critically high 15-37 [facility] Comment on above: Performed By: #### A 1C #### [facility] [address] [place] [address] Dr. Juan Zamarripa Bilirubin [Mass/Vol] 0.8 mg/dL Normal 0.2-1.0 [facility] Comment on above: Performed By: #### A 1C #### [facility] [address] [place] [address] Dr. Juan Zamarripa Calcium [Mass/Vol] 10.0 mg/dL Normal 8.5-10.1 [facility] Comment on above: Performed By: #### A 1C #### [facility] [address] [address] [address] Juan Zamarripa Chloride [Moles/Vol] 99 mmol/L Normal 98-107 [facility] Comment on above: Performed By: #### A 1C #### [facility] [address] [place] [address] Dr. Juan Zamarripa CO2 [Moles/Vol] 26.4 mmol/L Normal 21.0-32.0 [facility] Comment on above: Performed By: #### A 1C #### [facility] [address] [place] [address] Dr. Juna Zamarripa Creatinine [Mass/Vol] 0.89 mg/dL Normal 0.55-1.02 [facility] Comment on above: Performed By: #### A 1C #### [facility] [address] [address] [address] Juan Zamarripa EGFR-AF GREEK >60 Normal >=60 [facility] Comment on above: Performed By: #### A 1C #### [facility] [address] [place] [address] Dr. Juan Zamarripa EGFR-NON AF GREEK >60 Normal >=60 [facility] Comment on above: Performed By: #### A 1C #### [facility] [address] [place] [address] Dr. Juan Zamarripa Globulin (S) [Mass/Vol] 4.3 g/dL Normal [facility] Comment on above: Performed By: #### A 1C #### [facility] [address] [place] [address] Dr. Juan Zamarripa Glucose [Mass/Vol] 168 mg/dL Critically high 74-106 [facility] Comment on above: Performed By: #### A 1C #### [facility] [address] [place] [address] Dr. Juan Zamarripa Potassium [Moles/Vol] 4.1 mmol/L Normal 3.5-5.1 [facility] Comment on above: Performed By: #### A 1C #### [facility] [address] [place] [address] Dr. Juan Zamarripa Protein [Mass/Vol] 8.6 g/dL Critically high 6.4-8.2 [facility] Comment on above: Performed By: #### A 1C #### [facility] [address] [place] [address] Dr. Juan Zamarripa Sodium [Moles/Vol] 136 mmol/L Normal 136-145 [facility] Comment on above: Performed By: #### A 1C #### [facility] [address] [place] [address] Dr. Juan Zamarripa Urea nitrogen [Mass/Vol] 18.0 mg/dL Normal 7.0-18.0 [facility] Comment on above: Performed By: #### A 1C #### [facility] [address] [place] [address] Dr. Juan Zamarripa Urea nitrogen/Creatinine [Mass ratio] 20.2 mg/mg Normal [facility] Comment on above: Performed By: #### A 1C #### [facility] [address] [place] [address] Dr. Juan Zamarripa TROPONIN, HIGH SENSITIVITYon 04-12-2022 HSTROP 4.9 pg/mL Normal 4.0-51.3 [facility] Comment on above: Result Comment: CUT- OFF POINTS HAVE BEEN ESTABLISHED BASED ON THE FOURTH UNIVERSAL DEFINITIONS OF MYOCARDIAL INFARCTION. THE UPPER REFERENCE LIMIT (URL) OF TROPONIN, DEFINED THE 99TH PERCENTILE OF cTnI DISTRIBUTION IN A REFERENCE POPULATION, HAS BEEN CONFIRMED THE DECISION THRESHOLD FOR [place] DIAGNOSIS. Performed By: #### A 1C #### [facility] [address] [place] [address] Dr. Juan Zamarripa TSHon 04-12-2022 TSH 1.593 uIU/mL Normal 0.358-3.74 0 [facility] Comment on above: Performed By: #### C BC #### [facility] [address] [place] [address] Dr. Juan Zamarripa URINE MICROSCOPIC ONLYon BACTERIA SMALL Abnormal NONE SEEN [facility] Comment on above: Performed By: #### C BC #### [facility] [address] [place] [address] Dr. Juan Zamarripa Bacteria identified Cx Nom (U) INDICATED Normal [facility] Comment on above: Performed By: #### C BC #### [facility] [address] [place] [address] Dr. Juan Zamarripa CAST NONE SEEN Normal NONE SEEN [facility] Comment on above: Performed By: #### C BC #### [facility] [address] [place] [address] Dr. Juan Zamarripa Crystals LM Nom (Urine sed) NONE SEEN Normal NONE SEEN [facility] Comment on above: Performed By: #### C BC #### [facility] [address] [place] [address] Dr. Juan Zamarripa Epithelial cells LM Ql (Urine sed) FEW Abnormal NONE SEEN /RARE [facility] Comment on above: Performed By: #### C BC #### [facility] [address] [place] [address] Dr. Juan Zamarripa MUCOUS NONE SEEN Normal NONE SEEN [facility] Comment on above: Performed By: #### C BC #### [facility] [address] [place] [address] Dr. Juan Zamarripa RBC 0-2 Normal 0-2 [facility] Comment on above: Performed By: #### C BC #### [facility] [address] [place] [address] Dr. Juan Zamarripa WBC 2-5 Abnormal NONE SEEN [facility] Comment on above: Performed By: #### C BC #### [facility] [address] [place] [address] Dr. Juan Zamarripa XR CHEST 1 Von [...] JAZMINE DODSON Date: 2022-04-12 15:31 Normal [facility] CBC AUTO DIFFon 11-26-2021 BASO # 0.1 103/ul Normal 0.0-0.1 [facility] Comment on above: Performed By: #### L IPA, HSTROPN, TSH, CMP #### [facility] [address] [place] [address] Dr. Juan Zamarripa Basophils/100 WBC (Bld) 0.5 % Normal 0.2-2.0 [facility] Comment on above: Performed By: #### L IPA, HSTROPN, TSH, CMP #### [facility] [address] [address] [address] Juan Zamarripa EO # 0.1 103/ul Normal 0.0-0.7 [facility] Comment on above: Performed By: #### L IPA, HSTROPN, TSH, CMP #### [facility] [address] [place] [address] Dr. Juan Zamarripa Eosinophils/100 WBC (Bld) 1.1 % Normal 0.9-7.0 [facility] Comment on above: Performed By: #### L IPA, HSTROPN, TSH, CMP #### [facility] [address] [place] [address] Dr. Juan Zamarripa Erythrocyte distribution width (RBC) [Ratio] 12.5 % Normal 11.0-15.0 [facility] Comment on above: Performed By: #### L IPA, HSTROPN, TSH, CMP #### [facility] [address] [place] [address] Dr. Juan Zamarripa Hematocrit (Bld) [Volume fraction] 39.6 % Normal 36.0-48.0 [facility] Comment on above: Performed By: #### L IPA, HSTROPN, TSH, CMP #### [facility] [address] [place] [address] Dr. Juan Zamarripa Hemoglobin (Bld) [Mass/Vol] 13.7 g/dL Normal 12.0-16.0 [facility] Comment on above: Performed By: #### L IPA, HSTROPN, TSH, CMP #### [facility] [address] [place] [address] Dr. Juan Zamarripa IG # 0.04 10e3/ul Critically high 0.00-0.03 [facility] Comment on above: Performed By: #### L IPA, HSTROPN, TSH, CMP #### [facility] [address] [place] [address] Dr. Juan Zamarripa IG % 0.4 % Normal 0.0-0.5 [facility] Comment on above: Performed By: #### L IPA, HSTROPN, TSH, CMP #### [facility] [address] [place] [address] Dr. Juan Zamarripa LYMPH # 4.2 103/ul Critically high 1.2-3.8 [facility] Comment on above: Performed By: #### L IPA, HSTROPN, TSH, CMP #### [facility] [address] [place] [address] Dr. Juan Zamarripa Lymphocytes/100 WBC (Bld) 38.8 % Normal 20.5-60.0 [facility] Comment on above: Performed By: #### L IPA, HSTROPN, TSH, CMP #### [facility] [address] [place] [address] Dr. Juan Zamarripa MANUAL DIFF REQ NO Normal [facility] Comment on above: Performed By: #### L IPA, HSTROPN, TSH, CMP #### [facility] [address] [place] [address] Dr. Juan Zamarripa MCH (RBC) [Entitic mass] 32.2 pg Normal 26.7-34.0 [facility] Comment on above: Performed By: #### L IPA, HSTROPN, TSH, CMP #### [facility] [address] [place] [address] Dr. Juan Zamarripa MCHC (RBC) [Mass/Vol] 34.6 g/dL Normal 29.9-35.2 [facility] Comment on above: Performed By: #### L IPA, HSTROPN, TSH, CMP #### [facility] [address] [place] [address] Dr. Juan Zamarripa MCV (RBC) [Entitic vol] 93.0 fL Normal 81.0-99.0 [facility] Comment on above: Performed By: #### L IPA, HSTROPN, TSH, CMP #### [facility] [address] [place] [address] Dr. Juan Zamarripa MONO # 0.4 103/ul Normal 0.3-0.8 [facility] Comment on above: Performed By: #### L IPA, HSTROPN, TSH, CMP #### [facility] [address] [place] [address] Dr. Juan Zamarripa Monocytes/100 WBC (Bld) 3.9 % Normal 1.7-12.0 [facility] Comment on above: Performed By: #### L IPA, HSTROPN, TSH, CMP #### [facility] [address] [place] [address] Dr. Juan Zamarripa NEUT # 6.1 103/ul Normal 1.4-6.5 [facility] Comment on above: Performed By: #### L IPA, HSTROPN, TSH, CMP #### [facility] [address] [place] [address] Dr. Juan Zamarripa Neutrophils/100 WBC (Bld) 55.3 % Normal 43.0-75.0 [facility] Comment on above: Performed By: #### L IPA, HSTROPN, TSH, CMP #### [facility] [address] [place] [address] Dr. Juan Zamarripa Platelet mean volume (Bld) [Entitic vol] 9.6 fL Normal 9.5-13.5 [facility] Comment on above: Performed By: #### L IPA, HSTROPN, TSH, CMP #### [facility] [address] [place] [address] Dr. Juan Zamarripa PLT 187 103/ul Normal 150-450 [facility] Comment on above: Performed By: #### L IPA, HSTROPN, TSH, CMP #### [facility] [address] [place] [address] Dr. Juan Zamarripa RBC 4.26 106/ul Normal 4.20-5.40 [facility] Comment on above: Performed By: #### L IPA, HSTROPN, TSH, CMP #### [facility] [address] [place] [address] Dr. Juan Zamarripa WBC 10.9 103/ul Normal 4.0-11.0 [facility] Comment on above: Performed By: #### L IPA, HSTROPN, TSH, CMP #### [facility] [address] [place] [address] Dr. Juan Zamarripa Covid-19 PCR (CVDTB)on 11-07 SARS-CoV-2 (COVID-19) RNA SUNNY+probe Ql (Unsp spec) Not detected Normal NOT DETECTED [facility] Comment on above: Result Comment: When [...] for this test is supported by the [place] of Health and Human Service's declaration that [...] #### L IPA, HSTROPN, TSH, CMP #### [facility] [address] [place] [address] Dr. Juan Zamarripa LIPASEon 11-26-2021 Lipase [Catalytic activity/Vol] 140.0 U/L Normal 73.0-393.0 [facility] Comment on above: Performed By: #### L IPA, HSTROPN, TSH, CMP #### [facility] [address] [place] [address] Dr. Juan Zamarripa PROF 14(COMP METB)on 022 Albumin [Mass/Vol] 4.2 g/dL Normal 3.4-5.0 [facility] Comment on above: Performed By: #### L IPA, HSTROPN, TSH, CMP #### [facility] [address] [place] [address] Dr. Juan Zamarripa Albumin/Globulin [Mass ratio] 1.1 {ratio} Normal [facility] Comment on above: Performed By: #### L IPA, HSTROPN, TSH, CMP #### [facility] [address] [address] [address] Juan Zamarripa ALP [Catalytic activity/Vol] 93 U/L Normal 46-116 [facility] Comment on above: Performed By: #### L IPA, HSTROPN, TSH, CMP #### [facility] [address] [place] [address] Dr. Juan Zamarripa ALT [Catalytic activity/Vol] 74 U/L Critically high 14-59 [facility] Comment on above: Performed By: #### L IPA, HSTROPN, TSH, CMP #### [facility] [address] [place] [address] Dr. Juan Zamarripa Anion gap [Moles/Vol] 15.6 mmol/L Normal [facility] Comment on above: Performed By: #### L IPA, HSTROPN, TSH, CMP #### [facility] [address] [place] [address] Dr. Juan Zamarripa AST [Catalytic activity/Vol] 46 U/L Critically high 15-37 [facility] Comment on above: Performed By: #### L IPA, HSTROPN, TSH, CMP #### [facility] [address] [place] [address] Dr. Juan Zamarripa Bilirubin [Mass/Vol] 0.6 mg/dL Normal 0.2-1.0 [facility] Comment on above: Performed By: #### L IPA, HSTROPN, TSH, CMP #### [facility] [address] [place] [address] Dr. Juan Zamarripa Calcium [Mass/Vol] 9.7 mg/dL Normal 8.5-10.1 [facility] Comment on above: Performed By: #### L IPA, HSTROPN, TSH, CMP #### [facility] [address] [place] [address] Dr. Juan Zamarripa Chloride [Moles/Vol] 100 mmol/L Normal 98-107 [facility] Comment on above: Performed By: #### L IPA, HSTROPN, TSH, CMP #### [facility] [address] [address] [address] Juan Zamarripa CO2 [Moles/Vol] 25.6 mmol/L Normal 21.0-32.0 [facility] Comment on above: Performed By: #### L IPA, HSTROPN, TSH, CMP #### [facility] [address] [address] [address] Juan Zamarripa Creatinine [Mass/Vol] 0.89 mg/dL Normal 0.55-1.02 [facility] Comment on above: Performed By: #### L IPA, HSTROPN, TSH, CMP #### [facility] [address] [address] [address] Juan Zamarripa EGFR-AF GREEK >60 Normal >=60 [facility] Comment on above: Performed By: #### L IPA, HSTROPN, TSH, CMP #### [facility] [address] [place] [address] Dr. Juan Zamarripa EGFR-NON AF GREEK >60 Normal >=60 [facility] Comment on above: Performed By: #### L IPA, HSTROPN, TSH, CMP #### [facility] [address] [address] [address] Juan Zamarripa Globulin (S) [Mass/Vol] 3.7 g/dL Normal [facility] Comment on above: Performed By: #### L IPA, HSTROPN, TSH, CMP #### [facility] [address] [address] [address] Juan Zamarripa Glucose [Mass/Vol] 183 mg/dL Critically high 74-106 [facility] Comment on above: Performed By: #### L IPA, HSTROPN, TSH, CMP #### [facility] [address] [address] [address] Juan Zamarripa Potassium [Moles/Vol] 4.2 mmol/L Normal 3.5-5.1 [facility] Comment on above: Performed By: #### L IPA, HSTROPN, TSH, CMP #### [facility] [address] [place] [address] Dr. Juan Zamarripa Protein [Mass/Vol] 7.9 g/dL Normal 6.4-8.2 [facility] Comment on above: Performed By: #### L IPA, HSTROPN, TSH, CMP #### [facility] [address] [address] [address] Juan Zamarripa Sodium [Moles/Vol] 137 mmol/L Normal 136-145 [facility] Comment on above: Performed By: #### L IPA, HSTROPN, TSH, CMP #### [facility] [address] [address] [address] Juan Zamarripa Urea nitrogen [Mass/Vol] 13.0 mg/dL Normal 7.0-18.0 [facility] Comment on above: Performed By: #### L IPA, HSTROPN, TSH, CMP #### [facility] [address] [place] [address] Dr. Juan Zamarripa Urea nitrogen/Creatinine [Mass ratio] 14.6 mg/mg Normal [facility] Comment on above: Performed By: #### L IPA, HSTROPN, TSH, CMP #### [facility] [address] [place] [address] Dr. Juan Zamarripa TROPONIN, HIGH SENSITIVITYon 11-26-2021 HSTROP 4.6 pg/mL Normal 4.0-51.3 [facility] Comment on above: Result Comment: CUT- OFF POINTS HAVE BEEN ESTABLISHED BASED ON THE FOURTH UNIVERSAL DEFINITIONS OF MYOCARDIAL INFARCTION. THE UPPER REFERENCE LIMIT (URL) OF TROPONIN, DEFINED THE 99TH PERCENTILE OF cTnI DISTRIBUTION IN A REFERENCE POPULATION, HAS BEEN CONFIRMED THE DECISION THRESHOLD FOR [place] DIAGNOSIS. Performed By: #### L IPA, HSTROPN, TSH, CMP #### [facility] [address] [place] [address] Dr. Juan Zamarripa TSHon 11-26-2021 TSH 2.343 uIU/mL Normal 0.358-3.74 0 [facility] Comment on above: Performed By: #### L IPA, HSTROPN, TSH, CMP #### [facility] [address] [address] [address] Juan Zamarripa XR CHEST 1 Von [...] VERA ARANA Date: 2021-11-26 21:03 Normal [facility] Covid-19 PCR (CVDTB)on SARS-CoV-2 (COVID-19) RNA SUNNY+probe Ql (Unsp spec) Not detected Normal NOT DETECTED [facility] Comment on above: Result Comment: This test is not yet approved or cleared by the [place] FDA. When there are no FDA-approved or cleared tests available, and other criteria are met, FDA can make tests available under an emergency access mechanism called an Emergency Use Authorization (EUA). The EUA for this test is supported by the [place] of Health and Human Service's (HHS's) declaration [...] SARS-CoV-2. Performed By: #### C BC #### [facility] [address] [place], [place] [address] Dr. Juan Zamarripa CBC AUTO DIFFon 08-17-2021 BASO # 0.1 103/ul Normal 0.0-0.1 [facility] Comment on above: Performed By: #### L IPA, HSTROPN, TSH, CMP #### [facility] [address] [place], [place] [address] Dr. Juan Zamarripa Basophils/100 WBC (Bld) 0.7 % Normal 0.2-2.0 [facility] Comment on above: Performed By: #### L IPA, HSTROPN, TSH, CMP #### [facility] [address] [place] [address] Dr. Juan Zamarripa EO # 0.1 103/ul Normal 0.0-0.7 [facility] Comment on above: Performed By: #### L IPA, HSTROPN, TSH, CMP #### [facility] [address] [place] [address] Dr. Juan Zamarripa Eosinophils/100 WBC (Bld) 1.6 % Normal 0.9-7.0 [facility] Comment on above: Performed By: #### L IPA, HSTROPN, TSH, CMP #### [facility] [address] [place] [address] Dr. Juan Zamarripa Erythrocyte distribution width (RBC) [Ratio] 12.6 % Normal 11.0-15.0 [facility] Comment on above: Performed By: #### L IPA, HSTROPN, TSH, CMP #### [facility] [address] [place] [address] Dr. Juan Zamarripa Hematocrit (Bld) [Volume fraction] 39.8 % Normal 36.0-48.0 [facility] Comment on above: Performed By: #### L IPA, HSTROPN, TSH, CMP #### [facility] [address] [place] [address] Dr. Juan Zamarripa Hemoglobin (Bld) [Mass/Vol] 13.7 g/dL Normal 12.0-16.0 [facility] Comment on above: Performed By: #### L IPA, HSTROPN, TSH, CMP #### [facility] [address] [place] [address] Dr. Juan Zamarripa IG # 0.02 10e3/ul Normal 0.00-0.03 [facility] Comment on above: Performed By: #### L IPA, HSTROPN, TSH, CMP #### [facility] [address] [place] [address] Dr. Juan Zamarripa IG % 0.3 % Normal 0.0-0.5 [facility] Comment on above: Performed By: #### L IPA, HSTROPN, TSH, CMP #### [facility] [address] [place] [address] Dr. Juan Zamarripa LYMPH # 3.1 103/ul Normal 1.2-3.8 [facility] Comment on above: Performed By: #### L IPA, HSTROPN, TSH, CMP #### [facility] [address] [place] [address] Dr. Juan Zamarripa Lymphocytes/100 WBC (Bld) 40.5 % Normal 20.5-60.0 [facility] Comment on above: Performed By: #### L IPA, HSTROPN, TSH, CMP #### [facility] [address] [place] [address] Dr. Juan Zamarripa MANUAL DIFF REQ NO Normal [facility] Comment on above: Performed By: #### L IPA, HSTROPN, TSH, CMP #### [facility] [address] [place] [address] Dr. Juan Zamarripa MCH (RBC) [Entitic mass] 32.3 pg Normal 26.7-34.0 [facility] Comment on above: Performed By: #### L IPA, HSTROPN, TSH, CMP #### [facility] [address] [place] [address] Dr. Juan Zamarripa MCHC (RBC) [Mass/Vol] 34.4 g/dL Normal 29.9-35.2 [facility] Comment on above: Performed By: #### L IPA, HSTROPN, TSH, CMP #### [facility] [address] [place] [address] Dr. Juan Zamarripa MCV (RBC) [Entitic vol] 93.9 fL Normal 81.0-99.0 [facility] Comment on above: Performed By: #### L IPA, HSTROPN, TSH, CMP #### [facility] [address] [place] [address] Dr. Juan Zamarripa MONO # 0.3 103/ul Normal 0.3-0.8 [facility] Comment on above: Performed By: #### L IPA, HSTROPN, TSH, CMP #### [facility] [address] [place] [address] Dr. Juan Zamarripa Monocytes/100 WBC (Bld) 4.2 % Normal 1.7-12.0 [facility] Comment on above: Performed By: #### L IPA, HSTROPN, TSH, CMP #### [facility] [address] [place] [address] Dr. Juan Zamarripa NEUT # 4.0 103/ul Normal 1.4-6.5 [facility] Comment on above: Performed By: #### L IPA, HSTROPN, TSH, CMP #### [facility] [address] [place] [address] Dr. Juan Zamarripa Neutrophils/100 WBC (Bld) 52.7 % Normal 43.0-75.0 [facility] Comment on above: Performed By: #### L IPA, HSTROPN, TSH, CMP #### [facility] [address] [place] [address] Dr. Juan Zamarripa Platelet mean volume (Bld) [Entitic vol] 9.7 fL Normal 9.5-13.5 [facility] Comment on above: Performed By: #### L IPA, HSTROPN, TSH, CMP #### [facility] [address] [place] [address] Dr. Juan Zamarripa PLT 164 103/ul Normal 150-450 [facility] Comment on above: Performed By: #### L IPA, HSTROPN, TSH, CMP #### [facility] [address] [place] [address] Dr. Juan Zamarripa RBC 4.24 106/ul Normal 4.20-5.40 [facility] Comment on above: Performed By: #### L IPA, HSTROPN, TSH, CMP #### [facility] [address] [place] [address] Dr. Juan Zamarripa WBC 7.6 103/ul Normal 4.0-11.0 [facility] Comment on above: Performed By: #### L IPA, HSTROPN, TSH, CMP #### [facility] [address] [address] [address] Juan Zamarripa FREE T4on 08-17-2021 Free T4 [Mass/Vol] 1.00 ng/dL Normal 0.76-1.46 [facility] Comment on above: Performed By: #### C BC #### [facility] [address] [address] [address] Juan Zamarripa GLYCOHEMOGLOBIN A1Con 2021 ADA RECOMMENDATION SEE BELOW Normal [facility] Comment on above: Result Comment: ADA RECOMMENDED LIMIT 4.0 - 6.0 ADA THERAPEUTIC TARGET < 7.0 ACTION SUGGESTED > 7.0 Performed By: #### A 1C #### [facility] [address] [place] [address] Dr. Juan Zamarripa Glucose [Mass/Vol] 140 mg/dL Normal [facility] Comment on above: Performed By: #### A 1C #### [facility] [address] [address] [address] Juan Zamarripa HbA1c (Bld) [Mass fraction] 6.5 % Critically high 4.5-6.2 [facility] Comment on above: Performed By: #### A 1C #### [facility] [address] [address] [address] Juan Zamarripa LIPID PROFILEon 08-17-2021 CHOL-HDL RATIO NORM SEE BELOW Normal [facility] Comment on above: Result Comment: 3.3 - 4.4 LOW RISK 4.4 - 7.1 AVERAGE RISK 7.1 - 11.0 MODERATE RISK >11.0 HIGH RISK Performed By: #### L IPA, HSTROPN, TSH, CMP #### [facility] [address] [address] [address] Juan Zamarripa Cholesterol [Mass/Vol] 115 mg/dL Normal <=200 [facility] Comment on above: Performed By: #### L IPA, HSTROPN, TSH, CMP #### [facility] [address] [address] [address] Juan Zamarripa Cholesterol in HDL [Mass/Vol] 40 mg/dL Normal 40-60 [facility] Comment on above: Performed By: #### L IPA, HSTROPN, TSH, CMP #### [facility] [address] [address] [address] Juan Zamarripa Cholesterol in LDL [Mass/Vol] 53.6 mg/dL Normal [facility] Comment on above: Performed By: #### L IPA, HSTROPN, TSH, CMP #### [facility] [address] [place] [address] Dr. Juan Zamarripa Cholesterol.total/Amanda sterol in HDL [Mass ratio] 2.9 {ratio} Normal [facility] Comment on above: Performed By: #### L IPA, HSTROPN, TSH, CMP #### [facility] [address] [place] [address] Dr. Juan Zamarripa HDL NORMAL > or = 60 mg/dl - LO W CARDIOVASCULAR RISK <40 mg/dl - HIGH CARDIOVASCULAR RISK Normal [facility] Comment on above: Performed By: #### L IPA, HSTROPN, TSH, CMP #### [facility] [address] [place] [address] Dr. Juan Zamarripa LDL CALC NORMAL SEE BELOW Normal [facility] Comment on above: Result Comment: <100 mg/dl OPTIMAL 100 - 129 mg/dl NEAR OR ABOVE OPTIMAL 130 - 159 mg/dl BORDERLINE HIGH 160 - 189 mg/dl HIGH >190 mg/dl VERY HIGH Performed By: #### L IPA, HSTROPN, TSH, CMP #### [facility] [address] [place] [address] Dr. Juan Zamarripa Triglyceride [Mass/Vol] 107 mg/dL Normal <=150 [facility] Comment on above: Performed By: #### L IPA, HSTROPN, TSH, CMP #### [facility] [address] [place] [address] Dr. Juan Zamarripa VLDL CALC 21.4 mg/dL Normal [facility] Comment on above: Performed By: #### L IPA, HSTROPN, TSH, CMP #### [facility] [address] [place] [address] Dr. Juan Zamarripa PROF 14(COMP METB)on 022 Albumin [Mass/Vol] 4.1 g/dL Normal 3.4-5.0 [facility] Comment on above: Performed By: #### L IPA, HSTROPN, TSH, CMP #### [facility] [address] [address] [address] Juan Zamarripa Albumin/Globulin [Mass ratio] 1.1 {ratio} Normal [facility] Comment on above: Performed By: #### L IPA, HSTROPN, TSH, CMP #### [facility] [address] [address] [address] Juan Zamarripa ALP [Catalytic activity/Vol] 94 U/L Normal 46-116 [facility] Comment on above: Performed By: #### L IPA, HSTROPN, TSH, CMP #### [facility] [address] [place] [address] Dr. Juan Zamarripa ALT [Catalytic activity/Vol] 61 U/L Critically high 14-59 [facility] Comment on above: Performed By: #### L IPA, HSTROPN, TSH, CMP #### [facility] [address] [address] [address] Juan Zamarripa Anion gap [Moles/Vol] 16.5 mmol/L Normal [facility] Comment on above: Performed By: #### L IPA, HSTROPN, TSH, CMP #### [facility] [address] [address] [address] Juan Zamarripa AST [Catalytic activity/Vol] 24 U/L Normal 15-37 [facility] Comment on above: Performed By: #### L IPA, HSTROPN, TSH, CMP #### [facility] [address] [address] [address] Juan Zamarripa Bilirubin [Mass/Vol] 0.7 mg/dL Normal 0.2-1.0 [facility] Comment on above: Performed By: #### L IPA, HSTROPN, TSH, CMP #### [facility] [address] [address] [address] Juan Zamarripa Calcium [Mass/Vol] 9.1 mg/dL Normal 8.5-10.1 [facility] Comment on above: Performed By: #### L IPA, HSTROPN, TSH, CMP #### [facility] [address] [address] [address] Juan Zamarripa Chloride [Moles/Vol] 103 mmol/L Normal 98-107 [facility] Comment on above: Performed By: #### L IPA, HSTROPN, TSH, CMP #### [facility] [address] [address] [address] Juan Zamarripa CO2 [Moles/Vol] 25.4 mmol/L Normal 21.0-32.0 [facility] Comment on above: Performed By: #### L IPA, HSTROPN, TSH, CMP #### [facility] [address] [place] [address] Dr. Juan Zamarripa Creatinine [Mass/Vol] 0.87 mg/dL Normal 0.55-1.02 [facility] Comment on above: Performed By: #### L IPA, HSTROPN, TSH, CMP #### [facility] [address] [place] [address] Dr. Juan Zamarripa EGFR-AF GREEK >60 Normal >=60 [facility] Comment on above: Performed By: #### L IPA, HSTROPN, TSH, CMP #### [facility] [address] [place] [address] Dr. Juan Zamarripa EGFR-NON AF GREEK >60 Normal >=60 [facility] Comment on above: Performed By: #### L IPA, HSTROPN, TSH, CMP #### [facility] [address] [address] [address] Juan Zamarripa Globulin (S) [Mass/Vol] 3.9 g/dL Normal [facility] Comment on above: Performed By: #### L IPA, HSTROPN, TSH, CMP #### [facility] [address] [address] [address] Juan Zamarripa Glucose [Mass/Vol] 157 mg/dL Critically high 74-106 [facility] Comment on above: Performed By: #### L IPA, HSTROPN, TSH, CMP #### [facility] [address] [address] [address] Juan Zamarripa Potassium [Moles/Vol] 4.4 mmol/L Normal 3.5-5.1 [facility] Comment on above: Performed By: #### L IPA, HSTROPN, TSH, CMP #### [facility] [address] [address] [address] Juan Zamarripa Protein [Mass/Vol] 8.0 g/dL Normal 6.4-8.2 [facility] Comment on above: Performed By: #### L IPA, HSTROPN, TSH, CMP #### [facility] [address] [place] [address] Dr. Juan Zamarripa Sodium [Moles/Vol] 141 mmol/L Normal 136-145 [facility] Comment on above: Performed By: #### L IPA, HSTROPN, TSH, CMP #### [facility] [address] [place] [address] Dr. Juan Zamarripa Urea nitrogen [Mass/Vol] 21.0 mg/dL Critically high 7.0-18.0 [facility] Comment on above: Performed By: #### L IPA, HSTROPN, TSH, CMP #### [facility] [address] [place] [address] Dr. Juan Zamarripa Urea nitrogen/Creatinine [Mass ratio] 24.1 mg/mg Normal [facility] Comment on above: Performed By: #### L IPA, HSTROPN, TSH, CMP #### [facility] [address] [place] [address] Dr. Juan Zamarripa TSHon 08-17-2021 TSH 1.503 uIU/mL Normal 0.358-3.74 0 [facility] Comment on above: Performed By: #### L IPA, HSTROPN, TSH, CMP #### [facility] [address] [place] [address] Dr. Juan Zamarripa TSH RANGE SEE BELOW Normal [facility] Comment on above: Result Comment: <0.3 4 UIU/ml HYPERTHYROID 0.34-5.60 UIU/ml EUTHYROID >5.60 UIU/ml HYPOTHYROID Performed By: #### L IPA, HSTROPN, TSH, CMP #### [facility] [address] [place] [address] Dr. Juan Weinstein 08-11-2021 CNPN Telephone (NCCAP) -------- IVELISSE GEE ([id number]) 1950 F Date Time Provider Department 08/11/21 MEHRDAD AGUILAR NCCJERMAINE During your visit today, we recorded the following information about you: Marta Cuellar [facility] 08/11/2021 12:14 PM Signed Called [...] Status:Closed by MARTA GARCES on 08/11/21 Normal [facility] [id number] QUANTITA TIONon 10-13-2020 [id number] (AAT) PHENOTYPE SEE NOTE Normal [facility] Comment on above: Order Comment: FASTI NG:YES FASTING: YES Result Comment: THIS PATIENT'S [id number] PHENOTYPE IS PI*MM. 90% of normal individuals have the MM phenotype, with normal quantitative AAT levels. Many phenotypic patterns have been described, including deficiency states with F, S, Z, or other alleles. As a general estimation, compared to M allele of 100% of normal X-3-Bvwstmdazis protein, the S allele produces approximately 60% and the Z allele 20%. For example, an MS phenotype would have about 80% of normal T-3-Ruldzemnjic protein level, a 50% contribution from the M allele and 30% from the S allele. A ZZ phenotype would have about 20% of normal levels, a 10% contribution from each Z gene. The F allele has normal K-3-Euodgbajbxv levels, but the kinetics of elastase inhibition [...] phenotype. Performed By: #### 2 63, 457, 75740, 7573, 508, 498, 326, 8472, 496, 249, 55442, 259 #### [facility] [address] [facility], [address] [place] [phone] Manager Tax: Kush Hines MD #### [id number] #### [facility], [address] [place] [address] Manager Tax: Susan Sheikh MD,PhD,JAY #### [phone], [phone] #### [facility] [address] [facility] [place], [place] Manager Tax: Parrish Gloria M.D.,PhD VZUOM-[id number] QN 170 mg/dL Normal 83-199 [facility] Comment on above: Order Comment: FASTI NG:YES FASTING: YES Performed By: #### 2 63, 457, 98432, 7573, 508, 498, 326, 8472, 496, 249, 49579, 259 #### [facility] [address] [facility], [address] [place] [address] Manager Tax: Kush Hines MD #### [id number] #### [facility] [address] [place] [address] Manager Tax: Susan Sheikh MD,PhD,JAY #### [phone], [phone] #### [facility] [address] [facility] [place], [place] Manager Tax: Parrish Gloria M.D.,PhD TL SCREEN, IFA, W/REFL KVNG Jeffries 10-13-2020 TL SCREEN, IFA Negative Normal NEGATIVE [...] AC-0: Negative International Consensus on TL Patterns (https://doi.org/10.1515/eorp-7518-2951) For additional information, please refer to http://education.[employer].Bubbly/faq/BQO156 (This link is being provided for informational/ educational purposes only.) Performed By: #### 2 63, 457, 60409, 7573, 508, 498, 326, 8472, 496, 249, 38301, 259 #### [facility] [address], [address] [place] [address] Manager Tax: Kush Hines MD #### [id number] #### [facility], [address] [place] [address] Manager Tax: Susan Sheikh MD,PhD,JAY #### [phone], [phone] #### [facility] [address] [facility] [place], [place] Manager Tax: Parrish Gloria M.D.,PhD CELIAC DISEASE COMPREHENSIVE PANELon 10-13-2020 IMMUNOGLOBULIN A 185 mg/dL Normal 70-320 [facility] Comment on above: Performed By: #### 2 63, 457, 96682, 7573, 508, 498, 326, 8472, 496, 249, 04137, 259 #### [facility] [address], [address] [place] [address] Manager Tax: Kush Hines MD #### [id number] #### [facility], [address] [place] [address] Manager Tax: Susan Sheikh MD,PhD,JAY #### [phone], [phone] #### [facility] [address] [facility] [place], [place] Manager Tax: Parrish Gloria M.D.,PhD INTERPRETATION see note Normal [...] DQ8. Performed By: #### 2 63, 457, 75772, 7573, 508, 498, 326, 8472, 496, 249, 25301, 259 #### [facility] [address], [address] [place] [address] Manager Tax: Kush Hines MD #### [id number] #### [facility], [address] [place] [phone] Manager Tax: Susan Sheikh MD,PhD,JAY #### [phone], [phone] #### [facility] [address] [facility] [place] Manager Tax: Parrish Gloria M.D.,PhD TISSUE TRANSGLUTAMINASE AB, IGA 2 U/mL Normal <4 [facility] Comment on above: Result Comment: Value Interpretation <4 U/mL: No Antibody Detected >or=4 U/mL: Antibody Detected Performed By: #### 2 63, 457, 46463, 7573, 508, 498, 326, 8472, 496, 249, 08170, 259 #### [facility] [address], [address] [place] [address] Manager Tax: Kush Hines MD #### [id number] #### [facility], [address] [place] [address] Manager Tax: Susan Sheikh MD,PhD,JAY #### [phone], [phone] #### [facility] [address] [facility] [place], [place] Manager Tax: Parrish Gloria M.D.,PhD CERULOPLASMINon 10-13-2020 CERULOPLASMIN 31 mg/dL Normal 18-53 [facility] Comment on above: Performed By: #### 2 63, 457, 48743, 7573, 508, 498, 326, 8472, 496, 249, 53595, 259 #### [facility] [address], [address] [place] [address] Manager Tax: Kush Hines MD #### [id number] #### [facility], [address] [address] Manager Tax: Susan Sheikh MD,PhD,JAY #### [phone], [phone] #### [facility]/[address] [facility] [place], [place] Manager Tax: Parrish Gloria M.D.,PhD FERRITINon 10-13-2020 Ferritin [Mass/Vol] 70 ng/mL Normal 16-288 [facility] Comment on above: Performed By: #### 2 63, 457, 80759, 7573, 508, 498, 326, 8472, 496, 249, 36340, 259 #### [facility] [address], [address] [place] [address] Manager Tax: Kush Hines MD #### [phone] #### [facility] [address] [phone] Manager Tax: Susan Sheikh MD,PhD,JAY #### [phone], [phone] #### [facility] [address] [facility] [place], [place] Manager Tax: Parrish Gloria M.D.,PhD HEMOGLOBIN A1con 10-13-2020 HEMOGLOBIN A1c 6.9 % of total Hgb High <5.7 [facility] Comment on above: Result Comment: [...] children. Performed By: #### 2 63, 457, 87848, 7573, 508, 498, 326, 8472, 496, 249, 33875, 259 #### [facility] [address], [address] [place] [address] Manager Tax: Kush Hines MD #### [id number] #### [facility], [address] [place], [place] Manager Tax: Susan Sheikh MD,PhD,JAY #### [phone], [phone] #### [facility]/[address] [facility] [place], [place] Manager Tax: Parrish Gloria M.D.,PhD HEPATITIS A AB, TOTALon 07 HEPATITIS A AB, TOTAL Reactive Abnormal NON-RE ACTI VE [facility] Comment on above: Result Comment: For additional information, please refer to http://education.[employer].Bubbly/faq/EJU526 (This link is being provided for informational/ educational purposes only.) Performed By: #### 2 63, 457, 81509, 7573, 508, 498, 326, 8472, 496, 249, 00309, 259 #### [facility] [address], [address] [place] [address] Manager Tax: Kush Hines MD #### [id number] #### [facility], [address] [place], [place] Manager Tax: uSsan Sheikh MD,PhD,JAY #### [phone], [phone] #### [facility] [address] [facility] [place], [place] Manager Tax: Parrish Gloria M.D.,PhD HEPATITIS B CORE AB TOTAL W/ REFL IGMon 07-08-2021 HEPATITIS B CORE AB TOTAL Non-Reactive Normal NON-REACTI VE [facility] Comment on above: Performed By: #### 2 63, 457, 68318, 7573, 508, 498, 326, 8472, 496, 249, 02774, 259 #### [facility] [address], [address] [place] [address] Manager Tax: Kush Hines MD #### [phone] #### [facility], [address] [place], [place] [phone] Manager Tax: Susan Sheikh MD,PhD,JAY #### [phone], [phone] #### [facility] [facility] [place], [place] Manager Tax: Parrish Gloria M.D.,PhD HEPATITIS B SURFACE ANTIBODY QLon 10-13-2020 HEPATITIS B SURFACE ANTIBODY QL Non-Reactive Normal NON-REACTI VE [facility] Comment on above: Performed By: #### 2 63, 457, 01670, 7573, 508, 498, 326, 8472, 496, 249, 59764, 259 #### [place] [address] Manager Tax: Kush Hines MD #### [phone] #### [facility], [address] [place] [address] Manager Tax: Susan Sheikh MD,PhD,JAY #### [phone], 34285 #### [facility] [facility] [place], [place] Manager Tax: Parrish Gloria M.D.,PhD HEPATITIS B SURFACE ANTIGEN W/REFL CONFIRMon 10-13-2020 HEPATITIS B SURFACE ANTIGEN Non-Reactive Normal NON-REACTI VE [facility] Comment on above: Performed By: #### 2 63, 457, 90252, 7573, 508, 498, 326, 8472, 496, 249, 42779, 259 #### [facility] [address], [address] [place], [place] [phone] Manager Tax: Kush Hines MD #### [id number] #### [facility] [address] [place] [address] Manager Tax: Susan Sheikh MD,PhD,JAY #### [phone], [phone] #### [facility]/[address] [address] [facility] [place] Manager Tax: Parrish Gloria M.D.,PhD HEPATITIS C AB W/REFL TO HCV RNA, QN, PCRon 10-13-2020 HEPATITIS C ANTIBODY Non-Reactive Normal NON-CHARMAINE CTI VE [facility] Comment on above: Performed By: #### 2 63, 457, 32871, 7573, 508, 498, 326, 8472, 496, 249, 86582, 259 #### [facility] [address], [address] [place], [place] [phone] Manager Tax: Kush Hines MD #### [id number] #### [facility] [place] [address] Manager Tax: Susan Sheikh MD,PhD,JAY #### [phone], [phone] #### [facility] [address] [facility] [address] [place] Manager Tax: Parrish Gloria M.D.,PhD INDEX 0.02 Normal <1.00 [facility] Comment on above: Result Comment: HCV antibody was non-reactive. There is no laboratory evidence of HCV infection. In most cases, no further action is required. However, if recent HCV exposure is suspected, a test for HCV RNA (test code 18115) is suggested. For additional information please refer to http://education.[employer]/faq/XMA95y4 (This link is being provided for informational/ educational purposes only.) Performed By: #### 2 63, 457, 89507, 7573, 508, 498, 326, 8472, 496, 249, 82192, 259 #### [facility] [address], [address] [place] [address] Manager Tax: Kush Hines MD #### [id number] #### [facility], [address] [place], [place] [phone] Manager Tax: Susan Sheikh MD,PhD,JAY #### [id number], [phone] #### [facility]/[place] [address] [facility] [place], [place] Manager Tax: Parrish Gloria M.D.,PhD IRON AND TOTAL IRON BINDING CAPACITYon 10-13-2020 % SATURATION 19 % (calc) Normal 16-45 [facility] Comment on above: Performed By: #### 2 63, 457, 20369, 7573, 508, 498, 326, 8472, 496, 249, 25334, 259 #### [facility] [address], [address] [place], [place] [phone] Manager Tax: Kush Hines MD #### [id number] #### [facility], [address] [place] [address] Manager Tax: Susan Sheikh MD,PhD,JAY #### [id number], [phone] #### [facility] [address] [facility] [place], [place] Manager Tax: Parrish Gloria M.D.,PhD IRON BINDING CAPACITY 372 mcg/dL (calc) Normal 250-450 [facility] Comment on above: Performed By: #### 2 63, 457, 99736, 7573, 508, 498, 326, 8472, 496, 249, 50425, 259 #### [facility] [address], [address] [place], [place] [phone] Manager Tax: Kush Hines MD #### [id number] #### [facility], [address] [place] Manager Tax: Susan Sheikh MD,PhD,JAY #### [id number], [id number] #### [facility] [address] [facility] [place], [place] Manager Tax: Parrish Gloria M.D.,PhD IRON, TOTAL 70 mcg/dL Normal 45-160 [facility] Comment on above: Performed By: #### 2 63, 457, 95427, 7573, 508, 498, 326, 8472, 496, 249, 34906, 259 #### [facility] [address] [facility], [address] [place] [phone] Manager Tax: Kush Hines MD #### [id number] #### [facility], [address] [place], [place] Manager Tax: Susan Sheikh MD,PhD,JAY #### [phone], [phone] #### [facility] [address] [facility] [place], [place] Manager Tax: Parrish Gloria M.D.,PhD LIVER KIDNEY MICROSOME (LKM- [...] infection. Performed By: #### 2 63, 457, 30829, 7573, 508, 498, 326, 8472, 496, 249, 83878, 259 #### [facility] [place] [address] , [address] [place], [place] [id number] Manager Tax: Kush Hines MD #### [id number] #### [facility], [address] [place] [address] Manager Tax: Susan Sheikh MD,PhD,JAY #### [id number], [phone] #### [facility]/[place] [address] [facility] [place], [place] Manager Tax: Parrish Gloria M.D.,PhD MITOCHONDRIAL ANTIBODY W/REF L TITERon 10-13-2020 MITOCHONDRIAL AB SCREEN Negative Normal NEGATIVE Q [facility] Comment on above: Performed By: #### 2 63, 457, 95444, 7573, 508, 498, 326, 8472, 496, 249, 28126, 259 #### [facility] [place] [address] , [address] [place], [place] [phone] Manager Tax: Kush Hines MD #### [id number] #### [facility], [address] [place], [place] [address] Manager Tax: Susan Sheikh MD,PhD,JAY #### [id number], [phone] #### [facility] [address] [facility] [place], [place] Manager Tax: Parrish Gloria M.D.,PhD SMOOTH MUSCLE AB W/REFL TITE Butch 10-13-2020 SMOOTH MUSCLE AB SCREEN Negative Normal NEGATIVE [facility] Comment on above: Performed By: #### 2 63, 457, 34739, 7573, 508, 498, 326, 8472, 496, 249, 65474, 259 #### [facility] [place] [address], [address] [place] [address] Manager Tax: Kush Hines MD #### [id number] #### [facility], [address] [place] [address] Manager Tax: Susan Sheikh MD,PhD,JAY #### [id number], [id number] #### [facility] [address] [facility] [address] [place] Manager Tax: Parrish Gloria M.D.,PhD TSH W/REFLEX TO FT4on 2020 TSH W/REFLEX TO FT4 3.10 mIU/L Normal 0.40-4.50 [facility] Comment on above: Performed By: #### 2 63, 457, 83046, 7573, 508, 498, 326, 8472, 496, 249, 72981, 259 #### [facility] [address], [address] [place] [address] Manager Tax: Kush Hines MD #### [id number] #### [facility], [address] [place], [place] Manager Tax: Susan Sheikh MD,PhD,JAY #### [id number], [phone] #### [facility] [address] [facility] [address] [place], [place] Manager Tax: Parrish Gloria M.D.,PhD CNOVSPon 09-30-2020 [facility] Visit (SP) Office (HEMASA) -------- IVELISSE GEE ([id number]) 1950 F Date Time Provider Department 09/30/20 1:30 PM MEHRDAD AGUILAR During your visit today, we recorded the following information about you: Temperature Pulse Respiration Blood pressure 97.2 degrees 71/minute 18/minute 121/54 Weight Height 73.6 kg 1.57 m Mehrdad Aguilar MD 10/02/2020 5:36 PM Signed PATIENT NAME: Ivelisse Gee DATE: 09/30/2020 PRIMARY CARE PHYSICIAN: Carmen Conley MD OTHER PHYSICIANS: Dr. Wahl (PCP [place], [place]), Dr. Magdaleno Castillo ([facility]) Portions of this encounter note have [...] BP 121/ (more content not included)... Normal [facility] Albumin/Creat Ratioon 2020 Albumin Urine Random <12.0 Normal [facility] Comment on above: Performed By: #### C MP, INSLAB, LIPB, CPEPT, GADCAB, B12, VITD, UACR ####[place] [address] [place] [address], [place] [phone] Albumin/Creat Ratio Not calculated Normal <[address] [facility] Comment on above: Performed By: #### C MP, INSLAB, LIPB, CPEPT, GADCAB, B12, VITD, UACR ####[place] [address] [place], [place] [phone] Creatinine,Urine,Ran 53.8 mg/dL Normal 20-300 [facility] Comment on above: Performed By: #### C MP, INSLAB, LIPB, CPEPT, GADCAB, B12, VITD, UACR ####[place] [address] [place] [address], [place] [phone] C-Peptideon 09-27-2020 C-Peptide 1.8 ng/mL Normal 0.8-3.9 [facility] Comment on above: Performed By: #### C MP, INSLAB, LIPB, CPEPT, GADCAB, B12, VITD, UACR ####[place] [address] [place], [place] [phone] CBC and Differentialon 09-27 Abs Baso 0.03 k/uL Normal <0.11 [facility] Abs [place] 0.33 k/uL Normal <0.87 [facility] Abs Neut 4.29 k/uL Normal 1.45-7.50 [facility] Absolute nRBC <0.01 Normal <0.01 [facility] Basophils/100 WBC (Bld) 0.4 % Normal [facility] DTYPE Auto Diff Normal [facility] Eosinophils (Bld) [#/Vol] 0.12 10*3/uL Normal <0.46 [facility] Eosinophils/100 WBC (Bld) 1.5 % Normal [facility] Erythrocyte distribution width (RBC) [Ratio] 13.0 % Normal 11.5-15.0 [facility] Hematocrit (Bld) [Volume fraction] 37.3 % Normal 36.0-46.0 [facility] Hemoglobin (Bld) [Mass/Vol] 13.0 g/dL Normal 11.5-15.5 [facility] Lymphocytes (Bld) [#/Vol] 3.40 10*3/uL Normal 1.00-4.00 [facility] Lymphocytes/100 WBC (Bld) 41.6 % Normal [facility] MCH 31.9 pG Normal 26.0-34.0 [facility] MCHC (RBC) [Mass/Vol] 34.9 g/dL Normal 30.5-36.0 [facility] MCV (RBC) [Entitic vol] 91.4 fL Normal 80.0-100.0 [facility] Monocytes/100 WBC (Bld) 4.0 % Normal [facility] Neutrophils/100 WBC (Bld) 52.5 % Normal [facility] NRBCs 0.0 /100 WBC Normal 0 [facility] Platelet mean volume (Bld) [Entitic vol] 9.6 fL Normal 9.0-12.7 [facility] Platelets (Bld) [#/Vol] 164 10*3/uL Normal 150-400 [facility] RBC (Bld) [#/Vol] 4.08 10*6/uL Normal 3.90-5.20 [facility] WBC (Bld) [#/Vol] 8.18 10*3/uL Normal 3.70-11.00 [facility] Comp Metabolic Panelon 09-27 Albumin [Mass/Vol] 4.4 g/dL Normal 3.9-4.9 [facility] Comment on above: Performed By: #### C MP, INSLAB, LIPB, CPEPT, GADCAB, B12, VITD, UACR ####[facility] [address] [place], [place] [phone] ALP [Catalytic activity/Vol] 88 U/L Normal 34-123 [facility] Comment on above: Performed By: #### C MP, INSLAB, LIPB, CPEPT, GADCAB, B12, VITD, UACR ####[facility], [place] [phone] ALT [Catalytic activity/Vol] 63 U/L High 7-38 [facility] Comment on above: Performed By: #### C MP, INSLAB, LIPB, CPEPT, GADCAB, B12, VITD, UACR ####[place] [address] [place] [place], [place] [phone] Anion gap [Moles/Vol] 12 mmol/L Normal 9-18 [facility] Comment on above: Performed By: #### C MP, INSLAB, LIPB, CPEPT, GADCAB, B12, VITD, UACR ####[place] [address] [place], [place] [phone] AST [Catalytic activity/Vol] 42 U/L High 13-35 [facility] Comment on above: Performed By: #### C MP, INSLAB, LIPB, CPEPT, GADCAB, B12, VITD, UACR ####[place] [address] [place], [place] [phone] Bilirubin [Mass/Vol] 0.6 mg/dL Normal 0.2-1.3 [facility] Comment on above: Performed By: #### C MP, INSLAB, LIPB, CPEPT, GADCAB, B12, VITD, UACR ####[facility] [place], [place] [phone] Calcium [Mass/Vol] 9.2 mg/dL Normal 8.5-10.2 [facility] Comment on above: Performed By: #### C MP, INSLAB, LIPB, CPEPT, GADCAB, B12, VITD, UACR ####[facility] [place], [place] [phone] Chloride [Moles/Vol] 104 mmol/L Normal 97-105 [facility] Comment on above: Performed By: #### C MP, INSLAB, LIPB, CPEPT, GADCAB, B12, VITD, UACR ####[facility] [place], [place] [phone] Creatinine [Mass/Vol] 0.68 mg/dL Normal 0.58-0.96 [facility] Comment on above: Performed By: #### C MP, INSLAB, LIPB, CPEPT, GADCAB, B12, VITD, UACR ####[facility] [place], [place] [phone] Glucose [Mass/Vol] 152 mg/dL High 74-99 [facility] Comment on above: Result Comment: The [place] Diabetes Association (ADA) provides guidance for cutoff [...] Standards of Medical Care in Diabetes 2016, [place] Diabetes Association. Diabetes Care. 2016.39(Suppl 1). Performed By: #### C MP, INSLAB, LIPB, CPEPT, GADCAB, B12, VITD, UACR ####[facility] [place], [place] [phone] Potassium [Moles/Vol] 4.3 mmol/L Normal 3.7-5.1 [facility] Comment on above: Performed By: #### C MP, INSLAB, LIPB, CPEPT, GADCAB, B12, VITD, UACR ####[facility] [place], [place] [phone] Sodium [Moles/Vol] 140 mmol/L Normal 136-144 [facility] Comment on above: Performed By: #### C MP, INSLAB, LIPB, CPEPT, GADCAB, B12, VITD, UACR ####[facility] [address] [place], [place] [phone] Urea nitrogen [Mass/Vol] 14 mg/dL Normal 7-21 [facility] Comment on above: Performed By: #### C MP, INSLAB, LIPB, CPEPT, GADCAB, B12, VITD, UACR ####[place] [address] [place], [place] [phone] Albumin [Mass/Vol] 4.5 g/dL Normal 3.9-4.9 [facility] ALP [Catalytic activity/Vol] 83 U/L Normal 34-123 [facility] ALT [Catalytic activity/Vol] 58 U/L High 7-38 [facility] Anion gap [Moles/Vol] 11 mmol/L Normal 9-18 [facility] AST [Catalytic activity/Vol] 34 U/L Normal 13-35 [facility] Bilirubin [Mass/Vol] 0.7 mg/dL Normal 0.2-1.3 [facility] Calcium [Mass/Vol] 9.5 mg/dL Normal 8.5-10.2 [facility] Chloride [Moles/Vol] 103 mmol/L Normal 97-105 [facility] CO2 [Moles/Vol] 24 mmol/L Normal 22-30 [facility] Comment on above: Performed By: #### C MP, INSLAB, LIPB, CPEPT, GADCAB, B12, VITD, UACR ####[facility] [address] [place], [place] [phone] Creatinine [Mass/Vol] 0.67 mg/dL Normal 0.58-0.96 [facility] eGFR- Amer. >60 Normal [facility] Comment on above: Performed By: #### C MP, INSLAB, LIPB, CPEPT, GADCAB, B12, VITD, UACR ####[facility] [place], [place] [phone] eGFR-All Other Races >60 Normal [facility] Comment on above: Result Comment: eGFR (Estimated [...] INSLAB, LIPB, CPEPT, GADCAB, B12, VITD, UACR ####[facility] [place], [place] [phone] Glucose [Mass/Vol] 161 mg/dL High 74-99 [facility] Comment on above: Result Comment: The [place] Diabetes Association (ADA) provides guidance for cutoff [...] Standards of Medical Care in Diabetes 2016, [place] Diabetes Association. Diabetes Care. 2016.39(Suppl 1). Potassium [Moles/Vol] 4.1 mmol/L Normal 3.7-5.1 [facility] Protein [Mass/Vol] 7.2 g/dL Normal 6.3-8.0 [facility] Comment on above: Performed By: #### C MP, INSLAB, LIPB, CPEPT, GADCAB, B12, VITD, UACR ####[facility] [place], [place] [phone] Sodium [Moles/Vol] 138 mmol/L Normal 136-144 [facility] Urea nitrogen [Mass/Vol] 13 mg/dL Normal 7-21 [facility] Glutamic Ac Decar Abon 09-27 Glutam Ac Dec Ab Ql Negative Normal Negative [facility] Comment on above: Performed By: #### C MP, INSLAB, LIPB, CPEPT, GADCAB, B12, VITD, UACR ####[place] [address] [place], [place] [phone] Glutamic Ac Decar Ab <5.0 Normal <5.1 [facility] Comment on above: Performed By: #### C MP, INSLAB, LIPB, CPEPT, GADCAB, B12, VITD, UACR ####[place] [address] [address], [place] [phone] Insulin Autoantibodyon 09-27 Insulin Ab Ql Negative Normal Negative [facility] Comment on above: Performed By: #### C MP, INSLAB, LIPB, CPEPT, GADCAB, B12, VITD, UACR ####[place] [address] [place] [address], [place] [phone] Insulin Antibody <0.4 Normal <0.4 [facility] Comment on above: Performed By: #### C MP, INSLAB, LIPB, CPEPT, GADCAB, B12, VITD, UACR ####[place] [address] [address], [place] [phone] Lipid Panel, [place] 021 Cholesterol [Mass/Vol] 110 mg/dL Normal <200 [facility] Comment on above: Result Comment: <200 mg/dL, Desirable 200-239 mg/dL, Borderline high >239 mg/dL, High Performed By: #### C MP, INSLAB, LIPB, CPEPT, GADCAB, B12, VITD, UACR ####[place] [address] [place], [place] [phone] Cholesterol in HDL [Mass/Vol] 37 mg/dL Low >39 [facility] Comment on above: Result Comment: 40-5 9 mg/dL, Acceptable >59 mg/dL, High: Negative risk factor for coronary heart disease <40 mg/dL, Low: Positive risk factor for coronary heart disease Performed By: #### C MP, INSLAB, LIPB, CPEPT, GADCAB, B12, VITD, UACR ####[address] [phone] Cholesterol in LDL [Mass/Vol] 49 mg/dL Normal <100 [facility] Comment on above: Result Comment: <100 mg/dL, Optimal 100-129 mg/dL, Near optimal/above optimal 130-159 mg/dL, Borderline high 160-189 mg/dL, High >189 mg/dL, Very high Secondary prevention optimal LDL Cholesterol levels are recommended to be < 70 mg/dL Performed By: #### C MP, INSLAB, LIPB, CPEPT, GADCAB, B12, VITD, UACR ####[address] [phone] Fasting Time 12 hrs Normal [facility] Comment on above: Performed By: #### C MP, INSLAB, LIPB, CPEPT, GADCAB, B12, VITD, UACR ####[address] [phone] LDL:HDL Ratio 1.32 Normal <2.54 [facility] Comment on above: Result Comment: Refe rence: 1. National Cholesterol Education Program ATP III Guideline At-A-Glance Quick Desk Reference: National Heart, Lung, and Blood Neal. National Institutes of Health. 2001: NIH Publication No. 01-3305. 2. An International Atherosclerosis Society position paper: global recommendations for the management of dyslipidemia: executive summary, Atherosclerosis. 2014: 232(2):410-413. Performed By: #### C MP, INSLAB, LIPB, CPEPT, GADCAB, B12, VITD, UACR ####[address] [place], [place] [phone] Non HDL Cholesterol 73 mg/dL Normal <130 [facility] Comment on above: Result Comment: <130 mg/dL, Optimal 130-159 mg/dL, Near optimal/above optimal 160-189 mg/dL, Borderline high 190-219 mg/dL, High >219 mg/dL, Very high Secondary prevention optimal non HDL Cholesterol levels are recommended to be < 100 mg/dL Performed By: #### C MP, INSLAB, LIPB, CPEPT, GADCAB, B12, VITD, UACR ####[address] [phone] TC:HDL Ratio 2.97 Normal <5.10 [facility] Comment on above: Performed By: #### C MP, INSLAB, LIPB, CPEPT, GADCAB, B12, VITD, UACR ####[address] [phone] Triglyceride [Mass/Vol] 121 mg/dL Normal <[address] [facility] Comment on above: Result Comment: <150 mg/dL, Normal 150-199 mg/dL, Borderline high 200-499 mg/dL, High >499 mg/dL, Very high Performed By: #### C MP, INSLAB, LIPB, CPEPT, GADCAB, B12, VITD, UACR ####[address] [phone] VLDL Cholesterol 24 mg/dL Normal <30 [facility] Comment on above: Performed By: #### C MP, INSLAB, LIPB, CPEPT, GADCAB, B12, VITD, UACR ####[address] [phone] Vitamin B12on 09-27-2020 Cobalamin (Vitamin B12) [Mass/Vol] 431 pg/mL Normal 232-1245 [facility] Comment on above: Performed By: #### C MP, INSLAB, LIPB, CPEPT, GADCAB, B12, VITD, UACR ####[facility] [place], [place] [phone] Vitamin D 25 Hydroxyon 09-27 Vitamin D 25 Hydroxy 47.2 ng/mL Normal 31.0-80.0 [facility] Comment on above: Result Comment: Clas sification of 25 [place] Vitamin D status: Insufficiency/Moderate Deficiency: < or = 30 ng/mL Sufficiency/Optimal Levels: 31 to 80 ng/mL Toxicity: > 100 ng/mL Test performed by chemiluminescent immunoassay. Performed By: #### C MP, INSLAB, LIPB, CPEPT, GADCAB, B12, VITD, UACR ####[facility] [address] [place], [place] [phone] CNPNiki 09-22-2020 MINNAN Telephone (JOHN) -------- IVELISSE GEE ([id number]) 1950 F Date Time Provider Department 09/22/20 [...] Date Reviewed: 09/22/2020 Reviewed by: Mac Perez APRN.FISHING BOAT MATE - Fully Assessed Reason for Visit: Lab Orders [8048] Primary Visit Diagnosis:Thrombocytopen ia (HCC) [D69.6] Order(s):CBC + DIFF [SQCBCDIF] Order #: [id number] STANDING COMP METABOLIC PANEL [SQCMP] Order #: [id number] STANDING Prescriptions as of 09/22/2020 Sig: METFORMIN [...] Status:Closed by MAC PEREZ on 09/22/20 Normal [facility] MRI ABDOMEN WO/W IVCONon MRI ABDOMEN WO/W IVCON * * *Final Report * * * DATE OF EXAM: Sep 21 2020 11:45AM [facility] 0689 - MRI ABDOMEN WO/W IVCON [...] 6 months is recommended to assess the pediatrician active practice stability, progression or resolution of the findings. No enhancing pancreatic mass with special attention to the head of the pancreas. 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 5 mm and 9 mm Bosniak type II hemorrhagic cysts at the midpole of the left kidney. Additional subcentimeter renal cysts. Cholecystectomy with mildly dilatation. No choledocholithiasis. Workforce Management Manager: SHAHRZAD Transcribe Date/Time: Sep 21 2020 1:58P Dictated by : ANA MARÍA ARAIZA MD This examination was interpreted and the report reviewed and electronically signed by: ANA MARÍA ARAIZA MD on Sep 21 2020 10:19PM EST [id number] Normal [facility] Js 09-01-2020 DAVID Telephone (JOHN) -------- IVELISSE GEE ([id number]) 1950 F Date Time Provider Department 09/01/20 [...] Clerical: Please schedule pt for MRI at [facility]. Thank you. BRM: Order pending, please review and sign. MONICO Louie 09/01/2020 2:24 PM Signed Called patient to inform her that she has been scheduled for MRI @ [facility] on 09/07/20 @ 8:30am. LMOV. 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 Ordnance Engineer (topogram) images: No additional findings. IMPRESSION: 1. [...] any questions regarding this interpretation, please call [phone]. If you are unable to reach us at the number above, please feel free to contact [facility] at [phone]. [id number] Normal [facility] Protein Electrophor.on 08-30 Albumin [Mass/Vol] 4.24 g/dL High 3.37-4.23 [facility] Comment on above: Performed By: #### S EPG ####[place] [phone] Alpha 1 Globulin 0.27 gm/dL Normal 0.18-0.31 [facility] Comment on above: Performed By: #### S EPG ####[address] [phone] Alpha 2 Globulin 0.82 gm/dL Normal 0.52-0.97 [facility] Comment on above: Performed By: #### S EPG ####[address] [phone] Beta Globulin 1.11 gm/dL Normal 0.84-1.36 [facility] Comment on above: Performed By: #### S EPG ####[address] [phone] Gamma Globulin 1.27 gm/dL Normal 0.70-1.44 [facility] Comment on above: Performed By: #### S EPG ####[address] [phone] Interpretation SEE COMMENT [facility] Comment on above: Result Comment: No d efinitive M protein is identified on protein electrophoresis. Performed By: #### S EPG ####[address] [phone] M Protein Location N/A Normal [facility] Comment on above: Performed By: #### S EPG ####[address] [phone] M Shmuel Concentratn 0.00 gm/dL Normal 0.00 [facility] Comment on above: Performed By: #### S EPG ####[address] [phone] Protein [Mass/Vol] 7.7 g/dL Normal 6.3-8.0 [facility] Comment on above: Performed By: #### S EPG ####[address] [phone] SPE Staff Review Reviewed by Audelia Cabrera MD ([id number]) [facility] Comment on above: Performed By: #### S EPG ####[address] [phone] Js 08-23-2020 DAVID Telephone (GRISEL) -------- IVELISSE GEE ([id number]) 1950 F Date Time Provider Department 08/23/20 MEHRDAD AGUILAR During your visit today, we recorded the following information about you: Adele Delong 08/23/2020 9:45 AM Signed Marta Folley Pss MP ? 9:12 AM Note lvm returning GI's call to call back regarding patient to schedule patient for this referral. August 19, 2020 ? ? 3:53 PM Lorri Keyes Sec routed this conversation to [facility] Clerical Pool Lorri Keyes Sec ? 3:53 PM Note Left message at Dr Magdaleno Cuello [facility] GI. They may ask for me. She needs to be seen for Liver cirrhosis. Please call [phone] to refer this patient if they do not call back to schedule. Tracy Gonzáles [facility] 08/24/2020 10:00 AM Signed Records and referral faxed to [facility]. Marta Cuellar [facility] 08/25/2020 1:09 PM Signed Patient is scheduled [...] Encounter Status:Closed by ADELE DELONG on 09/20/20 [facility] 08-22-2020 [facility] Telephone ([facility]) -------- MARLENERICKA DAYLEY ([id number]) 1950 F Date Time Provider Department 08/22/20 MEHRDAD AGUILAR During your visit today, we recorded the following information about you: Allergies As of Date: 08/22/2020 Noted Allergy Reaction SULFA (SULFONAMIDE ANTIBIOTICS) 09/05/2016 10 - Anaphylaxis LATEX, NATURAL RUBBER 09/06/2016 16 - Unknown Comments: Only bandaids Date Reviewed: 08/19/2020 Reviewed by: Carlos Brewer MA - Fully Assessed Reason for Visit: Patient Question [3917] Prescriptions as of 08/22/2020 Sig: METFORMIN ER [...] Encounter Status:Closed by MARTA GARCES on 08/22/20 [facility] CNOVSPon 08-19-2020 CNOVSP Visit (SP) Office ([place]) -------- MARLEN,IVELISSE ([id number]) 1950 F Date Time Provider Department 08/19/20 11:15 AM MEHRDAD AGUILAR During your visit today, we recorded the following information about you: Temperature Pulse Respiration Blood pressure 98.2 degrees 88/minute 16/minute 130/56 Weight Height 74 kg 1.57 m Mehrdad Aguilar MD 08/20/2020 1:40 PM Signed PATIENT NAME: Ivelisse Gee DATE: 08/19/2020 PRIMARY CARE PHYSICIAN: Carmen Conley MD OTHER PHYSICIANS: Dr. Wahl ((PCP [place], [place]) HPI: This is a 70 year [...] requiring hospitalization, most recently while residing in [place] in June 2020. During her recent hospitalization labs revealed persistent thrombocytopenia with a platelet count ranging from 80-90,000. The patient is currently referred for evaluation of her abnormal CBC. Since the patient's hospitalization she started zcvm-kqb-zkugzac supplements including multivitamin. She has had no [...] intolerance, urinar (more content not included)... Normal [facility] J[facility] 08-19-2020 [facility] Telephone ([facility]) -------- IVELISSE GEE ([id number]) 1950 F Date Time Provider Department 08/19/20 JESSIE ACUÑA (RN) [place] During your visit today, we recorded the following information about you: Jessie Acuña 08/19/2020 12:27 PM Signed Please sign pending CAP CTs w/IVCON for Ivelisse Gee [id number] who was added to the schedule for scans on 08/30. Thanks KAMALJIT Zepeda, RN Mehrdad Aguilar MD 08/19/2020 12:41 PM Signed Actually we just need CT abd/pelvis BRChun Acuña 08/19/2020 1:07 PM Signed Noted to have [...] lymph node [R59.9] Order(s):CT ABD/PEL W IVCON [[id number]] Order #: [id number] FUTURE iv contrast (will be provided with [...] enteric contrast guidelines Encounter Status:Closed by JESSIE ACUÑA on 08/19/20 Normal [facility] Comp Metabolic Panelon 08-19 Albumin [Mass/Vol] 4.7 g/dL Normal 3.9-4.9 [facility] ALP [Catalytic activity/Vol] 93 U/L Normal 34-123 [facility] ALT [Catalytic activity/Vol] 56 U/L High 7-38 [facility] Anion gap [Moles/Vol] 12 mmol/L Normal 9-18 [facility] AST [Catalytic activity/Vol] 40 U/L High 13-35 [facility] Bilirubin [Mass/Vol] 0.9 mg/dL Normal 0.2-1.3 [facility] Calcium [Mass/Vol] 9.8 mg/dL Normal 8.5-10.2 [facility] Chloride [Moles/Vol] 102 mmol/L Normal 97-105 [facility] CO2 [Moles/Vol] 22 mmol/L Normal 22-30 [facility] Creatinine [Mass/Vol] 0.66 mg/dL Normal 0.58-0.96 [facility] eGFR- Amer. >60 Normal [facility] eGFR-All Other Races >60 Normal [facility] Comment on above: Result Comment: eGFR (Estimated [...] GFR. Glucose [Mass/Vol] 258 mg/dL High 74-99 [facility] Comment on above: Result Comment: The [place] Diabetes Association (ADA) provides guidance for cutoff [...] Standards of Medical Care in Diabetes 2016, [place] Diabetes Association. Diabetes Care. 2016.39(Suppl 1). Potassium [Moles/Vol] 4.3 mmol/L Normal 3.7-5.1 [facility] Protein [Mass/Vol] 8.0 g/dL Normal 6.3-8.0 [facility] Sodium [Moles/Vol] 136 mmol/L Normal 136-144 [facility] Urea nitrogen [Mass/Vol] 13 mg/dL Normal 7-21 [facility] Ferritinon 08-19-2020 Ferritin [Mass/Vol] 184.0 ng/mL Normal 14.7-205.1 [facility] Comment on above: Performed By: #### F ERR, IRON ####[place] [address] [place], [place] [phone] Iron and TIBCon 08-19-2020 Iron [Mass/Vol] 116 ug/dL Normal 41-186 [facility] Comment on above: Performed By: #### F ERR, IRON ####[address] [place], [place] [phone] TIBC 357 ug/dL Normal 232-386 [facility] Comment on above: Performed By: #### F ERR, IRON ####[address] [phone] Transferrin Saturatn 32 % Normal 15-57 [facility] Comment on above: Performed By: #### F ERR, IRON ####[address] [place], [place] [phone] LDon 08-19-2020 LD 171 U/L Normal 135-214 [facility] Monclnl Protein, Seron 08-19 K/L Ratio, Serum 1.43 Normal 0.26-1.65 [facility] Comment on above: Performed By: #### S ERMPA, B12 ####[address] [phone] [place], Free, Serum 28.3 mg/L High 3.30-19.40 [facility] Comment on above: Result Comment: Test performed by an immunoturbidimetric assay on [employer] instrument from [facility]. Immunoglobulin free light chain assay results should be interpreted in conjunction with other tests and in correlation with clinical picture. Performed By: #### S ANGELICA B12 ####[place] [phone] [place], Free, Serum 19.8 mg/L Normal 5.7-26.3 [facility] Comment on above: Result Comment: Test performed by an immunoturbidimetric assay on [employer] instrument from [facility]. Immunoglobulin free light chain assay results should be interpreted in conjunction with other tests and in correlation with clinical picture. Performed By: #### S ANGELICA B12 ####[place] [phone] MPA Interpretation SEE COMMENT Normal [facility] Comment on above: Result Comment: Poor ly [...] necessary. Performed By: #### Kg DOMINGUEZ B12 ####[place] [phone] MPA Result A poorly defined reg ion of restricted mobility is present that may represent an M protein. Critically abnormal No M protein is identified . [facility] Comment on above: Performed By: #### Kg DOMINGUEZ B12 ####[place] [id number] [place] [phone] MPA Serum IgA 196 mg/dL Normal 70-400 [facility] Comment on above: Performed By: #### S ANGELICA B12 ####[place] [address] [place] [phone] MPA Serum IgG 1243 mg/dL Normal 700-1600 [facility] Comment on above: Performed By: #### S ANGELICA B12 ####[place] [address] [place] [phone] MPA Serum IgM 58 mg/dL Normal 40-230 [facility] Comment on above: Performed By: #### S ANGELICA, B12 ####[facility] [id number] [place], [place] [phone] Staff Review Reviewed by Audelia Cabrera MD ([id number]) Normal [facility] Comment on above: Performed By: #### S ANGELICA, B12 ####[facility] [address] [place], [place] [phone] Remote CBCDIF (for [facility] use o nly)on 08-19-2020 Abs Baso <0.03 Normal <0.11 [facility] Abs [place] 0.33 k/uL Normal <0.87 [facility] Abs Neut 3.89 k/uL Normal 1.45-7.50 [facility] Absolute nRBC <0.01 Normal <0.01 [facility] Basophils/100 WBC (Bld) 0.3 % Normal [facility] DTYPE Auto Diff Normal [facility] Eosinophils (Bld) [#/Vol] 0.14 10*3/uL Normal <0.46 [facility] Eosinophils/100 WBC (Bld) 2.0 % Normal [facility] Erythrocyte distribution width (RBC) [Ratio] 12.8 % Normal 11.5-15.0 [facility] Hematocrit (Bld) [Volume fraction] 40.5 % Normal 36.0-46.0 [facility] Hemoglobin (Bld) [Mass/Vol] 13.8 g/dL Normal 11.5-15.5 [facility] Lymphocytes (Bld) [#/Vol] 2.71 10*3/uL Normal 1.00-4.00 [facility] Lymphocytes/100 WBC (Bld) 38.1 % Normal [facility] MCH 31.2 pG Normal 26.0-34.0 [facility] MCHC (RBC) [Mass/Vol] 34.1 g/dL Normal 30.5-36.0 [facility] MCV (RBC) [Entitic vol] 91.4 fL Normal 80.0-100.0 [facility] Monocytes/100 WBC (Bld) 4.6 % Normal [facility] Neutrophils/100 WBC (Bld) 55.0 % Normal [facility] NRBCs 0.0 /100 WBC Normal 0 [facility] Platelet mean volume (Bld) [Entitic vol] 9.7 fL Normal 9.0-12.7 [facility] Platelets (Bld) [#/Vol] 170 10*3/uL Normal 150-400 [facility] RBC (Bld) [#/Vol] 4.43 10*6/uL Normal 3.90-5.20 [facility] WBC (Bld) [#/Vol] 7.11 10*3/uL Normal 3.70-11.00 [facility] Reticulocyteon 08-19-2020 Abs Retic 0.096 M/uL Normal 0.0180-0.1 000 [facility] Retic% 2.2 % High 0.4-2.0 [facility] Vitamin B12on 08-19-2020 Cobalamin (Vitamin B12) [Mass/Vol] 421 pg/mL Normal 232-1245 [facility] Comment on above: Performed By: #### S ERMPA, B12 ####[facility] [id number] [place], [place] [phone] Vital Signs Date Time Vital Sign Value Performing Clinician Faci lity 10-08-2023 13:29-0400 Diastolic blood pressure 80 mm[Hg] Dontae Hernández [facility] 10-08-2023 13:29-0400 Heart rate 79 /min Dontae Hernández [facility] 10-08-2023 13:29-0400 Respiratory rate 20 /min Dontae Hernández [facility] 10-08-2023 13:29-0400 SaO2% (BldA) [Mass fraction] 94 % Dontae Hernández [facility] 10-08-2023 13:29-0400 Systolic blood pressure 134 mm[Hg] Dontae Hernández [facility] 09-05-2023 10:12-0400 Diastolic blood pressure 86 mm[Hg] Dontae Hernández [facility] 09-05-2023 10:12-0400 Mean blood pressure 105 mm[Hg] Dontae Hernández [facility] 09-05-2023 10:12-0400 Systolic blood pressure 142 mm[Hg] Dontae Hernández [facility] 09-05-2023 10:01-0400 Blood Pressure Location Dontae Hernández [facility] 09-05-2023 10:01-0400 Diastolic blood pressure 88 mm[Hg] Dontae Hernández [facility] 09-05-2023 10:01-0400 Heart rate 82 /min Dontae Hernández [facility] 09-05-2023 10:01-0400 SaO2% (BldA) [Mass fraction] 97 % Dontae Hernández [facility] 09-05-2023 10:01-0400 Systolic blood pressure 142 mm[Hg] Dontae Hernández [facility] 07-24-2023 13:50-0400 Blood Pressure Location Shaun Goode [facility] 07-24-2023 13:50-0400 Diastolic blood pressure 77 mm[Hg] Shaun Goode [facility] 07-24-2023 13:50-0400 Heart rate 85 /min Shaun Goode [facility] 07-24-2023 13:50-0400 Respiratory rate 16 /min Shaun Goode [facility] 07-24-2023 13:50-0400 Systolic blood pressure 135 mm[Hg] Mohamad Mouchli [facility] 07-02-2023 09:50-0400 Diastolic blood pressure 72 mm[Hg] Mohamad Mouchli [facility] 07-02-2023 09:50-0400 Heart rate 82 /min Mohamad Mouchli [facility] 07-02-2023 09:50-0400 Mean blood pressure 97 mm[Hg] Mohamad Mouchli [facility] 07-02-2023 09:50-0400 Respiratory rate 17 /min Mohamad Mouchli [facility] 07-02-2023 09:50-0400 SaO2% (BldA) [Mass fraction] 94 % Mohamad Mouchli [facility] 07-02-2023 09:50-0400 Systolic blood pressure 148 mm[Hg] Mohamad Mouchli [facility] 07-02-2023 09:40-0400 Diastolic blood pressure 72 mm[Hg] Mohamad Mouchli [facility] 07-02-2023 09:40-0400 Heart rate 80 /min Mohamad Mouchli [facility] 07-02-2023 09:40-0400 Mean blood pressure 92 mm[Hg] Mohamad Mouchli [facility] 07-02-2023 09:40-0400 Respiratory rate 11 /min Mohamad Mouchli [facility] 07-02-2023 09:40-0400 SaO2% (BldA) [Mass fraction] 93 % Mohamad Mouchli [facility] 07-02-2023 09:40-0400 Systolic blood pressure 132 mm[Hg] Mohamad Mouchli [facility] 07-02-2023 09:35-0400 Diastolic blood pressure 62 mm[Hg] Mohamad Mouchli [facility] 07-02-2023 09:35-0400 Heart rate 86 /min Mohamad Mouchli [facility] 07-02-2023 09:35-0400 Mean blood pressure 90 mm[Hg] Mohamad Mouchli [facility] 07-02-2023 09:35-0400 Respiratory rate 15 /min Mohamad Mouchli [facility] 07-02-2023 09:35-0400 SaO2% (BldA) [Mass fraction] 93 % Mohamad Mouchli [facility] 07-02-2023 09:35-0400 Systolic blood pressure 147 mm[Hg] Mohamad Mouchli [facility] 07-02-2023 09:25-0400 Body temperature 97.16 [degF] Mohamad Mouchli [facility] 07-02-2023 08:43-0400 Blood Pressure Location Mohamad Mouchli [facility] 07-02-2023 08:43-0400 Body temperature 96.8 [degF] Mohamad Mouchli [facility] 06-26-2023 12:17-0400 Blood Pressure Location Mohamad Mouchli [facility] 06-26-2023 12:17-0400 Diastolic blood pressure 82 mm[Hg] Mohamad Mouchli [facility] 06-26-2023 12:17-0400 Heart rate 80 /min Shaun Goode [facility] 06-26-2023 12:17-0400 Respiratory rate 16 /min Shaun Gipsonli [facility] 06-26-2023 12:17-0400 Systolic blood pressure 138 mm[Hg] Shaun Goode [facility] 06-21-2023 13:44-0400 Diastolic blood pressure 68 mm[Hg] Deonte Karmen [facility] 06-21-2023 13:44-0400 Heart rate 96 /min Deonte Karmen [facility] 06-21-2023 13:44-0400 SaO2% (BldA) [Mass fraction] 95 % Deonte Peraza [facility] 06-21-2023 13:44-0400 Systolic blood pressure 138 mm[Hg] Deonte Beyperdo [facility] 03-21-2023 13:30-0500 Body height 153.67 cm Carmen Conley Other [facility] Other 03-21-2023 13:30-0500 Body mass index (BMI) [Ratio] 30.54 kg/m2 Carmen Conley Other [facility] Other 03-21-2023 13:30-0500 Body weight 72.12 kg Carmen Conley Other [facility] Other 03-21-2023 13:30-0500 Diastolic blood pressure 79 mm[Hg] Carmen Conley Other [facility] Other 03-21-2023 13:30-0500 Systolic blood pressure 136 mm[Hg] Carmen Conley Other [facility] Other 01-24-2023 11:15-0400 Body height 153.67 cm Carmen Conley Other [facility] Other 01-24-2023 11:15-0400 Body mass index (BMI) [Ratio] 29.58 kg/m2 Carmen Conley Other [facility] Other 01-24-2023 11:15-0400 Body temperature 97.7 [degF] Carmen Conley Other [facility] Other 01-24-2023 11:15-0400 Body weight 69.85 kg Carmen Conley Other [facility] Other 01-24-2023 11:15-0400 Diastolic blood pressure 80 mm[Hg] Carmen Conley Other [facility] Other 01-24-2023 11:15-0400 SaO2% (BldA) [Mass fraction] 97 % Carmen Conley Other [facility] Other 01-24-2023 11:15-0400 Systolic blood pressure 137 mm[Hg] Carmen Conley Other [facility] Other 12-28-2022 13:30-0400 Body height 153.67 cm Carmen Conley Other [facility] Other 12-28-2022 13:30-0400 Body mass index (BMI) [Ratio] 29.96 kg/m2 Carmen Conley Other [facility] Other 12-28-2022 13:30-0400 Body weight 70.76 kg Carmen Conley Other [facility] Other 12-28-2022 13:30-0400 Diastolic blood pressure 64 mm[Hg] Carmen Conley Other [facility] Other 12-28-2022 13:30-0400 Systolic blood pressure 106 mm[Hg] Carmen Conley Other [facility] Other 08-07-2022 12:45-0400 Body height 153.67 cm Carmen Conley Other [facility] Other 08-07-2022 12:45-0400 Body mass index (BMI) [Ratio] 30.15 kg/m2 Carmen Conley Other [facility] Other 08-07-2022 12:45-0400 Body temperature 98.1 [degF] Carmen Conley Other [facility] Other 08-07-2022 12:45-0400 Body weight 71.22 kg Carmen Conley Other [facility] Other 08-07-2022 12:45-0400 Diastolic blood pressure 72 mm[Hg] Carmen Conley Other [facility] Other 08-07-2022 12:45-0400 SaO2% (BldA) [Mass fraction] 97 % Carmen Conley Other [facility] Other 08-07-2022 12:45-0400 Systolic blood pressure 132 mm[Hg] Carmen Conley Other [facility] Other 06-20-2022 12:00-0400 Body height 153.67 cm Carmen Conley Other [facility] Other 06-20-2022 12:00-0400 Body mass index (BMI) [Ratio] 30.54 kg/m2 Carmen Conley Other [facility] Other 06-20-2022 12:00-0400 Body weight 72.12 kg Carmen Conley Other [facility] Other 06-20-2022 12:00-0400 Diastolic blood pressure 70 mm[Hg] Carmen Conley Other [facility] Other 06-20-2022 12:00-0400 SaO2% (BldA) [Mass fraction] 98 % Carmen Conley Other [facility] Other 06-20-2022 12:00-0400 Systolic blood pressure 118 mm[Hg] Carmen Conley Other [facility] Other 06-12-2022 09:30-0500 Body height 153.67 cm Carmen Conley Other [facility] Other 06-12-2022 09:30-0500 Body mass index (BMI) [Ratio] 30.54 kg/m2 Carmen Conley Other [facility] Other 06-12-2022 09:30-0500 Body weight 72.12 kg Carmen Conley Other [facility] Other 06-12-2022 09:30-0500 Diastolic blood pressure 64 mm[Hg] Carmen Conley Other [facility] Other 06-12-2022 09:30-0500 SaO2% (BldA) [Mass fraction] 97 % Carmen Conley Other [facility] Other 06-12-2022 09:30-0500 Systolic blood pressure 116 mm[Hg] Carmen Conley Other [facility] Other 05-10-2022 11:00-0500 Body height 153.67 cm Carmen Conley Other [facility] Other 05-10-2022 11:00-0500 Body mass index (BMI) [Ratio] 30.54 kg/m2 Carmen Conley Other [facility] Other 05-10-2022 11:00-0500 Body weight 72.12 kg Carmen Conley Other [facility] Other 05-10-2022 11:00-0500 Diastolic blood pressure 62 mm[Hg] Carmen Conley Other [facility] Other 05-10-2022 11:00-0500 SaO2% (BldA) [Mass fraction] 97 % Carmen Conley Other [facility] Other 05-10-2022 11:00-0500 Systolic blood pressure 118 mm[Hg] Carmen Conley Other [facility] Other 04-20-2022 11:30-0500 Body height 153.67 cm Carmen Conley Other [facility] Other 04-20-2022 11:30-0500 Body mass index (BMI) [Ratio] 30.54 kg/m2 Carmen Conley Other [facility] Other 04-20-2022 11:30-0500 Body weight 72.12 kg Carmen Conley Other [facility] Other 04-20-2022 11:30-0500 Diastolic blood pressure 80 mm[Hg] Carmen Conley Other [facility] Other 04-20-2022 11:30-0500 SaO2% (BldA) [Mass fraction] 97 % Carmen Conley Other [facility] Other 04-20-2022 11:30-0500 Systolic blood pressure 126 mm[Hg] Carmen Conley Other [facility] Other 04-16-2022 15:15-0500 Body height 153.67 cm Carmen Conley Other [facility] Other 04-16-2022 15:15-0500 Body mass index (BMI) [Ratio] 30.35 kg/m2 Carmen Conley Other [facility] Other 04-16-2022 15:15-0500 Body weight 71.67 kg Carmen Conley Other [facility] Other 04-16-2022 15:15-0500 Diastolic blood pressure 82 mm[Hg] Carmen Conley Other [facility] Other 04-16-2022 15:15-0500 SaO2% (BldA) [Mass fraction] 97 % Carmen Conley Other [facility] Other 04-16-2022 15:15-0500 Systolic blood pressure 136 mm[Hg] Carmen Conley Other [facility] Other Encounters Encounter Date Encounter Type Care Provider Facility Start: 10-28-2023 End: 10-28-2023 ambulatory Nohemy Mohamud MD Facility: [facility] Start: 10-08-2023 End: 10-08-2023 ambulatory JANUSZ Hernández [place] [place]: 10-08-2023 End: 10-08-2023 Patient encounter procedure Dontae Hernández [facility] Start: 10-01-2023 End: 10-01-2023 ambulatory JANUSZ Hernández [place] [place] Start: 10-01-2023 End: 10-01-2023 Patient encounter procedure Dontae Hernández [facility] Start: 09-05-2023 End: 09-05-2023 ambulatory XXXX NONE [place] [place] Start: 09-05-2023 End: 09-05-2023 Patient encounter procedure Dontae Hernández [facility] Start: 08-05-2023 End: 08-05-2023 ambulatory Deonte Peraza [place] [place] Start: 08-05-2023 End: 08-05-2023 Patient encounter procedure Deonte Peraza [facility] Start: 08-01-2023 End: 08-16-2023 Pre-admission assessment Deonte Peraza [facility] Start: 07-24-2023 End: 08-07-2023 Pre-admission assessment Shaun oGode [facility] Start: 07-24-2023 End: 07-24-2023 ambulatory Shaun Goode Facility:[facility] Start: 07-24-2023 End: 07-24-2023 Patient encounter procedure Shaun Goode [facility] Start: 07-02-2023 End: 07-02-2023 ambulatory Shaun Goode [place] [place] Start: 07-02-2023 End: 07-02-2023 Patient encounter procedure Shaun Goode [facility] Start: 06-26-2023 End: 06-26-2023 ambulatory Shaun Wildmaximo [place] [place] Start: 06-26-2023 End: 06-26-2023 Patient encounter procedure Shaun WolfeJeff Junitomaximo [facility] Start: 06-26-2023 End: 06-26-2023 ambulatory Ramyaemmy AidenJeff [facility]aximo [facility] Start: 06-26-2023 End: 06-26-2023 Patient encounter procedure Shaun Wildmaximo [facility] Start: 06-21-2023 End: 06-21-2023 ambulatory Deonte Peraza [place] [place] Start: 06-21-2023 End: 06-21-2023 Patient encounter procedure Deonte Peraza [facility] Start: 06-18-2023 End: 06-18-2023 ambulatory MD Lucho GOINS [place] [place] Start: 06-18-2023 End: 06-18-2023 Patient encounter procedure CARMEN CONLEY [facility] Start: 06-13-2023 ambulatory JANUSZ Turner ity:[facility] Start: 05-14-2023 End: 05-14-2023 ambulatory Carmen Conley Other [facility] Other Start: 05-14-2023 Telephone encounter Carmen Conley [facility] Start: 04-16-2023 End: 04-16-2023 ambulatory ZULEIMA SUMNER Not Available Start: 04-03-2023 End: 04-03-2023 ambulatory Carmen Conley Other [facility] Other Start: 04-03-2023 Telephone encounter Carmen Conley [facility] Start: 04-02-2023 End: 04-02-2023 ambulatory Carmen Yael Other [facility] Other Start: 04-02-2023 Telephone encounter Carmen Conley [facility] Start: 03-21-2023 End: 03-21-2023 ambulatory Carmen Yael Other [facility] Other Start: 03-21-2023 Office outpatient vi sit 15 minutes Carmen Conley [facility] Start: 03-21-2023 Telephone encounter Carmen Conley [facility] Start: 03-04-2023 End: 03-04-2023 ambulatory ZULEIMA SUMNER Not Available Start: 02-06-2023 End: 02-06-2023 ambulatory Carmen Yael Other [facility] Other Start: 02-06-2023 Telephone encounter Carmen Conley [facility] Start: 02-01-2023 End: 02-01-2023 ambulatory Carmen Yael Other [facility] Other Start: 02-01-2023 Telephone encounter Carmen Conley [facility] Start: 01-24-2023 End: 01-24-2023 ambulatory Carmen Yael Other [facility] Other Start: 01-24-2023 Office outpatient vi sit 15 minutes Carmen Conley [facility] Start: 01-17-2023 End: 01-17-2023 ambulatory Carmen Conley Other [employer] Other Start: 01-17-2023 Telephone encounter Carmen Conley [facility] Start: 01-01-2023 End: 01-01-2023 ambulatory Carmen Conley Other [facility] Other Start: 01-01-2023 Telephone encounter Carmen Conley [facility] Start: 12-28-2022 End: 12-28-2022 ambulatory Carmen Conley Other [facility] Other Start: 12-28-2022 Patient encounter procedure Carmen Yael [facility] Start: 10-04-2022 End: 10-04-2022 ambulatory Carmen Conley Other [facility] Other Start: 10-04-2022 Telephone encounter Carmen Yael [facility] Start: 08-09-2022 End: 08-09-2022 ambulatory Carmen Conley Other [facility] Other Start: 08-09-2022 Telephone encounter Carmen Yael [facility] Start: 08-08-2022 Telephone encounter Carmen Yael [facility] Start: 08-08-2022 End: 08-09-[address] CARMEN CONLEY [facility] Other Start: 08-07-2022 End: 08-07-2022 ambulatory Carmen Conley Other [facility] Other Start: 08-07-2022 Office outpatient vi sit 15 minutes Carmen Conley [facility] Start: 07-31-2022 End: 07-31-2022 ambulatory Carmen Conley Other [employer] Other Start: 07-31-2022 Telephone encounter Carmen Conley [facility] Start: 07-24-2022 End: 07-24-2022 ambulatory Carmen Conley Facility:[facility] Start: 07-02-2022 End: 07-03-[address] CARMEN CONLEY Facility: Start: 06-20-2022 End: 06-20-2022 ambulatory Carmen Conley Other [employer] Other Start: 06-20-2022 Office outpatient vi sit 10 minutes Carmen Conley [facility] Start: 06-14-2022 End: 06-14-2022 ambulatory Carmen Conley Other [facility] Other Start: 06-14-2022 Telephone encounter Carmen Conley [facility] Start: 06-12-2022 Office outpatient vi sit 15 minutes Carmen Conley [facility] Start: 06-12-2022 End: 06-13-[address] CARMEN CONLEY [facility] Other Start: 05-10-2022 End: 05-10-2022 ambulatory Carmen Conley Other [facility] Other Start: 05-10-2022 Office outpatient vi sit 15 minutes Carmen Conley [facility] Start: 05-10-2022 Telephone encounter Carmen Conley [facility] Start: 05-03-2022 End: 05-03-2022 ambulatory Carmen Conley Other [facility] Other Start: 05-03-2022 Telephone encounter Carmen Conley [facility] Start: 04-23-2022 End: 04-24-[address] CARMEN CONLEY Facility:[facility] Start: 04-20-2022 End: 04-20-2022 ambulatory Carmen Conley Other [facility] Other Start: 04-20-2022 Office outpatient vi sit 25 minutes Carmen Conley [facility] Start: 04-17-2022 End: 04-17-2022 ambulatory Carmen Conley Other [facility] Other Start: 04-17-2022 Telephone encounter Carmen Conley [facility] Start: 04-16-2022 End: 04-16-2022 ambulatory Carmen Conley Other [facility] Other Start: 04-16-2022 Office outpatient vi sit 25 minutes Carmen Conley [facility] Start: 04-12-2022 End: 04-13-[address] CARMEN CONLEY Facility:[facility] Start: 01-05-2022 End: 01-06-[address] CARMEN CONLEY Facility:[facility] Start: 11-26-2021 End: 11-26-[address] CARMEN CONLEY Facility:[facility] Start: 11-08-2021 End: 11-08-[address] CHRISTIAN WHITE Facility:[facility] Start: 08-17-2021 End: 08-18-[address] CARMEN CONLEY Facility:[facility] Start: 08-11-2021 Telephone encounter Mehrdad robledo MD [facility] Comment on above: Appointment Start: 09-21-2020 End: 09-21-2020 Subsequent hospital visit by physician Mri [facility] (Lg Bore/1.5t) Radiology MRI Comment on above: Thrombocytopenia (HC C) [D69.6] Procedures Date Procedure Procedure Detail Performing Clinician Start: 07-02-2023 Esophagogastroduodenoscopy Shaun hobbs Start: 09-30-2020 Adult depression screening assessment Mehrdad Aguilar MD Work Phone: Start: 09-27-2020 Lipid 1996 panel - Serum or Plasma Mri B ore/1.5t) Start: 09-21-2020 Mri abdomen w/o & w/contrast material Mac Perez APRN.CNP Work Phone: Gallbladder structur e (body structure) Shaun Goode Hand structure (body structure) Shaun Goode Hysterectomy Shaun Goode Upper limb structure (body structure) Shaun Goode Urinary bladder stru cture (body structure) Shaun Goode Comment on above: 15/20 years ago Plan of Treatment Date Care Activity Detail Author Start: 09-27-2025 Lipid 1996 panel - Serum or Plasma Lipid Screening [facility] Start: 09-27-2025 LIPID SCREEN LIPID SCREEN [facility] Start: 01-08-2024 ambulatory Ambulatory Facility:[facility] Start: 09-28-2023 DIABETES SCREEN DIABETES SCREEN [facility] Start: 09-28-2023 Diabetes Screening Diabetes Screening [facility] Start: 12-07-2022 Influenza vaccination Influenza Vaccine (#1) [facility] Start: 04-08-2022 Advance Directive Discussion Advance Directive Discussion [facility] Start: 04-08-2022 Depression Assessment Depression Assessment [facility] Start: 12-07-2021 Influenza vaccination INFLUENZA (Season Ended) [facility] Start: 09-30-2021 Adult depression screening assessment DEPRESSION SCREENING [facility] Start: 04-08-2021 ADVANCE DIRECTIVE DISCUSSION ADVANCE DIRECTIVE DISCUSSION [facility] Start: 02-17-2020 Pneumococcal Vaccine: 65+ (3 - PPSV23 or PCV20) Pneumococcal Vaccine: 65+ (3 - PPSV23 or PCV20) [facility] Start: 01-07-2016 PNEUMOVAX AGE 65 AND OVER WITH 5YR LOOKBACK (#1) PNEUMOVAX AGE 65 AND OVER WITH 5YR LOOKBACK (#1) [facility] Start: 03-31-2015 SHINGRIX VACCINE (2 of 3) SHINGRIX VACCINE (2 of 3) [facility] Start: 2014 BONE DENSITY BONE DENSITY [facility] Start: 2014 Bone Density Screening Bone Density Screening [facility] Start: 2009 RSV Vaccine (1 - 1-dose 60+ series) RSV Vaccine (1 - 1-dose 60+ series) [facility] Start: 1994 COLOGUARD (FIT-DNA) COLOGUARD (FIT-DNA) [facility] Start: 1994 Colonoscopy COLONOSCOPY [facility] Start: 1994 COLORECTAL CANCER SCREENING COLORECTAL CANCER SCREENING [facility] Start: [address] COLONOGRAPHY [facility] Start: 1994 FECAL OCCULT BLOOD FECAL OCCULT BLOOD [facility] Start: 1994 SIGMOIDOSCOPY SIGMOIDOSCOPY [facility] Start: 1989 Mammography [facility] Start: 1968 HEPATITIS B (1 of 3 - Risk 3-dose series) HEPATITIS B (1 of 3 - Risk 3-dose series) [facility] Start: 1968 Urine microalbumin profile [facility] Start: 08-04-1967 HEPATITIS C SCREENING HEPATITIS C SCREENING [facility] Start: 1954 COVID-19 VACCINE (1) COVID-19 VACCINE (1) [facility] Start: 1950 HEPATITIS A (1 of 2 - Risk 2-dose series) HEPATITIS A (1 of 2 - Risk 2-dose series) [facility] Start: 02-02-1950 Covid-19 Vaccine (#1) Covid-19 Vaccine (#1) [facility] Immunizations Immunization Date Immunization Notes Care Provider Fa cili 12-28-2022 pneumococcal polysaccharide vaccine, 23 valent Carmen Conley Other [facility] Other 12-28-2022 influenza, high dose seasonal, preservative-free Carmen Conley Other [facility] Other 07-04-2020 COVID-19 Vaccine Moderna - Documentation Purposes Only Carmen Conley Other [facility] Other 01-07-2020 influenza, high dose seasonal, preservative-free Mehrdad Aguilar MD Work Phone: [facility] 01-07-2020 influenza virus vaccine, unspecified formulation Mri Bore/1.5t) [facility] 11-27-2019 influenza virus vaccine, split virus (incl. purified surface antigen) Carmen Conley Other [facility] Other 01-06-2019 influenza, high dose seasonal, preservative-free Mehrdad Aguilar MD Work Phone: [facility] 01-01-2019 influenza virus vaccine, split virus (incl. purified surface antigen) Carmen Conley Other [facility] Other 01-01-2019 influenza virus vaccine, unspecified formulation Shaun Goode [facility] 01-01-2019 Seasonal trivalent influenza vaccine, adjuvanted, preservative free Mehrdad Aguilar MD Work Phone: [facility] 01-13-2018 influenza nasal, unspecified formulation Mehrdad Aguilar MD Work Phone: [facility] 12-17-2017 influenza virus vaccine, unspecified formulation Shaun Goode [facility] 12-17-2017 influenza, high dose seasonal, preservative-free Mehrdad Aguilar MD Work Phone: [facility] 02-05-2017 influenza, high dose seasonal, preservative-free Mehrdad Aguilar MD Work Phone: [facility] 04-09-2016 influenza virus vaccine, unspecified formulation Y[facility] 04-09-2016 influenza, injectabl e, quadrivalent, preservative free Mehrdad Aguilar MD Work Phone: [facility] 03-05-2016 influenza, high dose seasonal, preservative-free Mehrdad Aguilar MD Work Phone: [facility] 02-16-2015 influenza, high dose seasonal, preservative-free Mehrdad Aguilar MD Work Phone: [facility] 02-16-2015 pneumococcal conjuga te vaccine, 13 valent Mehrdad Aguilar MD Work Phone: [facility] 02-03-2015 zoster vaccine, live Mehrdad lacey MD Work Phone: [facility] 02-02-2015 influenza, high dose shukri, preservative-free Mehrdad Aguilar MD Work Phone: [facility] 02-02-2015 pneumococcal conjuga te vaccine, 13 valroque Aguilar MD Work Phone: [facility] 03-24-2014 influenza, injectabl e, quadrivalent, contains preservative Mehrdad Aguilar MD Work Phone: [facility] 01-06-2013 influenza, high dose seasonal, preservative-free Mehrdad Aguilar MD Work Phone: [facility] 01-06-2011 pneumococcal polysaccharide vaccine, 23 valent Mehrdad Aguilar MD Work Phone: [facility] Payers Date Payer Category Payer Self-pay 2020 Private Health Insurance [facility] INDEMNITY [id number] 2020-Present [phone] [address] [place] [address] Indemnity [id number] 2020 Private Health Insurance [id number] 2006 Medicare MEDICARE RAILROA D MEDICARE RAILROAD PB ONLY [id number] 2006-Present [phone] [address] [address] [place] [address] Medicare [id number] 2006 Medicare [id number] 1959 Medicare [id number] [id number] 1959 Private Health Insurance [id number] .16.840.1.664404.19 1949 Unknown [id number] .840.1.333150.3.579. 2.593 1949 Unknown [id number] .840.1.425541.3.579. 2.593 1949 Unknown [id number] .16.840.1.091473.3.579. 2.593 1949 Unknown [id number] .16.840.1.866945.3.579. 2.593 1949 Unknown [id number] .16.840.1.668107.3.579. 2.593 1949 Unknown [id number] .16.840.1.059639.3.579. 2.593 1949 Unknown [id number] 2.16.840.1.942562.3.579. 2.593 1949 Unknown [id number] 2.16.840.1.207030.3.579. 2.593 1949 Unknown [id number] 2.16.840.1.873003.3.579. 2.593 1949 Unknown [id number] 2.16.840.1.561966.3.579. 2.1259 1949 Unknown [id number] 2.16.840.1.327697.3.579. 2.1259 1949 Unknown [id number] 2.16.840.1.565279.3.579. 2.72 1949 Unknown [id number] 2.16.840.1.924321.3.579. 2.727 1949 Unknown [id number] 2.16.840.1.050979.3.579. 2.72 1949 Unknown [id number] 2.16.840.1.858465.3.579. 2.727 1949 Unknown [id number] 2.16.840.1.575761.3.579. 2.72 1949 Unknown [id number] 2.16.840.1.308496.3.579. 2.727 1949 Unknown [id number] 2.16.840.1.493710.3.579. 2.727 1949 Unknown [id number] 2.16.840.1.052244.3.579. 2.727 1949 Unknown [id number] 2.16.840.1.546068.3.579. 2.72 1949 Unknown [id number] 2.16.840.1.829927.3.579. 2.727 1949 Unknown [id number] 2.16.840.1.327232.3.579. 2.72 1949 Unknown [id number] 2.16.840.1.220598.3.579. 2.727 1949 Unknown [id number] 2.16.840.1.445160.3.579. 2.196 Unknown [id number] 2.16.840.1.551233.3.579. 2.531 Social History Date Type Detail Facility Start: 08-18-2020 End: 10-08-2023 Tobacco smoking status NHIS Never smoked tobacco [facility] Start: 08-18-2020 Tobacco use and exposure Smokeless tobacco non-user [facility] Start: 08-19-2020 End: 09-30-2020 Alcohol intake Ex-drinker (finding) [facility] Start: 1950 Sex Assigned At Not on file [facility] Start: 08-04-2020 End: 08-19-2020 Sex Assigned At [facility] Start: 08-04-2020 End: 08-19-2020 History of Social function [facility] National Score (1-100), lower number is lower risk Not on file [facility] Tobacco smoking status No Smokin g Status Entered [facility] Medical Equipment Procedure Code Equipment Code Equipment Original Text Equi pment Identifier Dates BD Pen Needle Na no U/F 32G X 4 MM Functional Status Date Assessment Result Facility 10-08-2023 Functional Status N/A [facility] 09-05-2023 Functional Status No [facility] 07-24-2023 Functional Status N/A [facility] 07-02-2023 Functional Status N/A [facility] 06-26-2023 Functional Status N/A [facility] 06-21-2023 Functional Status N/A [facility] Clinical Notes 08-19-2020 to 07-03-2023 Note Date & Type Note Facility 07-03-2023 Note [id number] [facility] 07-02-2023 Hospital Discharg e instructions Patient Education 07/02/2023 09:33:43 Endoscopy, Care After Procedure [facility] [place] Care After Procedure Please read the instructions outlined below and refer to this sheet in the next few weeks. These discharge instructions provide you with general information on caring for yourself after you leave the hospital. Your doctor may also give you specific instructions. While your treatment has been planned according to the most current medical practices available, unavoidable complications occasionally occur. If you have any problems or questions after discharge, please call your doctor. ACTIVITY You may resume your regular activity but move at a slower pace for the next 24 hours. Take frequent rest periods for the next 24 hours. Walking will help expel (get rid of) the air and reduce the bloated feeling in your abdomen. No driving for 24 hours (because of the anesthesia (medicine) used during the test). You may shower. Do not sign any important legal documents or operate any machinery for 24 hours (because of the anesthesia used during the test). NUTRITION Drink plenty of fluids. You may resume your normal diet. Begin with a light meal and progress to your normal diet. Avoid alcoholic beverages for 24 hours or as instructed by your caregiver. MEDICATIONS You may resume your normal medications unless your caregiver tells you otherwise. WHAT YOU CAN EXPECT TODAY You may experience abdominal discomfort such as a feeling of fullness or gas pains. FOLLOW-UP Your doctor will discuss the results of your test with you. SEEK IMMEDIATE MEDICAL ATTENTION IF ANY OF THE FOLLOWING OCCUR: Excessive nausea (feeling sick to your stomach) and/or vomiting. Severe abdominal pain and distention (swelling). Trouble swallowing. Temperature over 100 F (37.8 C). Rectal bleeding or vomiting of blood. Document Released: 11/06/2004 Document Re-Released: 09/16/2006 [facility] Patient Information [employer]. 07/02/2023 09:33:36 Esophagitis Esophagitis Esophagitis is inflammation of the esophagus. The esophagus is the tube that carries food from the mouth to the stomach. Esophagitis can cause soreness or pain in the esophagus. This condition can make it difficult and painful to swallow. What are the causes? Most causes of esophagitis are not serious. Common causes of this condition include: Gastroesophageal reflux disease (GERD). This is when stomach contents move back up into the esophagus (reflux). Repeated vomiting. An allergic reaction, especially caused by food allergies (eosinophilic esophagitis). Injury to the esophagus by swallowing large pills with or without water, or swallowing certain types of medicines. Swallowing harmful chemicals, such as household cleaning products. Drinking a lot of alcohol. An infection of the esophagus. This most often occurs in people who have a weakened immune system. Radiation or chemotherapy treatment for cancer. Certain diseases such as sarcoidosis, Crohn's disease, and scleroderma. What are the signs or symptoms? Symptoms of this condition include: Difficult or painful swallowing. Pain with swallowing acidic liquids, such as citrus juices. You may also have pain when you burp. Chest pain and difficulty breathing. Nausea and vomiting. Pain in the abdomen. Weight loss. Ulcers in the mouth and white patches in the mouth (candidiasis). Fever. Coughing up blood or vomiting blood. Stool that is black, tarry, or bright red. How is this diagnosed? This condition may be diagnosed based on your medical history and a physical exam. You may also have other tests, including: A test to examine your esophagus and stomach with a small flexible tube with a camera (endoscopy). A test that measures the acidity level in your esophagus. A test that measures how much pressure is on your esophagus. A barium swallow or modified barium swallow to show the shape, size, and functioning of your esophagus. Allergy tests. How is this treated? Treatment for this condition depends on the cause of your esophagitis. In some cases, steroids or other medicines may be given to help relieve your symptoms or to treat the underlying cause of your condition. You may have to make some lifestyle changes, such as: Avoiding alcohol. Quitting any products that contain nicotine or tobacco. These products include cigarettes, chewing tobacco, and vaping devices, such as e-cigarettes. If you need help quitting, ask your health care provider. Changing your diet. Exercising. Changing your sleep habits and your sleep environment. Follow these instructions at home: Medicines Take plod-vbt-dngsltn and prescription medicines only as told by your health care provider. Do not take aspirin, ibuprofen, or other NSAIDs unless your health care provider told you to do so. If you have trouble taking pills: ?Use a pill splitter to decrease the size of the pill. This will decrease the chance of the pill getting stuck or injuring your esophagus. ?Drink water after you take a pill. Eating and drinking Avoid foods and drinks that seem to make your symptoms worse. Follow a diet as recommended by your health care provider. This may involve avoiding foods and drinks such as: ?Coffee and tea, with or without caffeine. ?Drinks that contain alcohol. ?Energy drinks and sports drinks. ?Carbonated drinks or sodas. ?Chocolate and cocoa. ?Peppermint and mint flavorings. ?Garlic and onions. ?Horseradish. ?Spicy and acidic foods, including peppers, chili powder, green powder, vinegar, hot sauces, and barbecue sauce. ?[place] fruit juices and citrus fruits, such as oranges, bentley, and limes. ?Tomato-based foods, such as red sauce, chili, salsa, and pizza with red sauce. ?Fried and fatty foods, such as donuts, macedonian fries, potato chips, and high-fat dressings. ?High-fat meats, such as hot dogs and fatty cuts of red and white meats, such as rib eye steak, sausage, ham, and martínez. ?High-fat dairy items, such as whole milk, butter, and cream cheese. Lifestyle Eat small, frequent meals instead of large meals. Avoid drinking large amounts of liquid with your meals. Avoid eating meals during the 2 3 hours before bedtime. Avoid lying down right after you eat. Do not exercise right after you eat. Do not use any products that contain nicotine or tobacco. These products include cigarettes, chewing tobacco, and vaping devices, such as e-cigarettes. If you need help quitting, ask your health care provider. General instructions Pay attention to any changes in your symptoms. Let your health care provider know about them. Wear loose-fitting clothing. Do not wear anything tight around your waist that causes pressure on your abdomen. Raise (elevate) the head of your bed about 6 inches (15 cm). You may need to use a wedge to do this. Try relaxation strategies such as yoga, deep breathing, or meditation to manage stress. If you need help reducing stress, ask your health care provider. If you are overweight, reduce your weight to an amount that is healthy for you. Ask your health care provider for guidance about a safe weight loss goal. Keep all follow-up visits. This is important. Contact a health care provider if: You have new symptoms. You have unexplained weight loss. You have difficulty swallowing, or it hurts to swallow. You have wheezing or a cough that does not go away. Your symptoms do not improve with treatment. You have frequent heartburn for more than two weeks. Get help right away if: You have sudden severe pain in your arms, neck, jaw, teeth, or back. You suddenly feel sweaty, dizzy, or light-headed. You have chest pain or shortness of breath. You vomit and the vomit is green, yellow, or black, or it looks like blood or coffee grounds. Your stool is red, bloody, or black. You have a fever. You cannot swallow, drink, or eat. These symptoms may represent a serious problem that is an emergency. Do not wait to see if the symptoms will go away. Get medical help right away. Call your local emergency services (911 in the [place] Do not drive yourself to the hospital. Summary Esophagitis is inflammation of the esophagus. Most causes of esophagitis are not serious. Follow your health care provider's instructions about eating and drinking. Contact a health care provider if you have new symptoms, have weight loss, or coughing that does not stop. Get help right away if you have severe pain in the arms, neck, jaw, teeth, or back, or if you have chest pain, shortness of breath, or fever. This information is not intended to replace advice given to you by your health care provider. Make sure you discuss any questions you have with your health care provider. Document Revised: 10/03/2020 Document Reviewed: 10/03/2020 [employer] Patient Education 2022 [employer]. 07/02/2023 09:33:31 Hiatal Hernia Hiatal Hernia A hiatal hernia occurs when part of the stomach slides above the muscle that separates the abdomen from the chest (diaphragm). A person can be born with a hiatal hernia (congenital), or it may develop over time. In almost all cases of hiatal hernia, only the top part of the stomach pushes through the diaphragm. Many people have a hiatal hernia with no symptoms. The larger the hernia, the more likely it is that you will have symptoms. In some cases, a hiatal hernia allows stomach acid to flow back into the tube that carries food from your mouth to your stomach (esophagus). This may cause heartburn symptoms. The development of heartburn symptoms may mean that you have a condition called gastroesophageal reflux disease (GERD). What are the causes? This condition is caused by a weakness in the opening (hiatus) where the esophagus passes through the diaphragm to attach to the upper part of the stomach. A person may be born with a weakness in the hiatus, or a weakness can develop over time. What increases the risk? This condition is more likely to develop in: Older people. Age is a major risk factor for a hiatal hernia, especially if you are over the age of 50. women. People who are overweight. People who have frequent constipation. What are the signs or symptoms? Symptoms of this condition usually develop in the form of GERD symptoms. Symptoms include: Heartburn. Upset stomach (indigestion). Trouble swallowing. Coughing or wheezing. Wheezing is making high-pitched whistling sounds when you breathe. Sore throat. Chest pain. Nausea and vomiting. How is this diagnosed? This condition may be diagnosed during testing for GERD. Tests that may be done include: X-rays of your stomach or chest. An upper gastrointestinal (GI) series. This is an X-ray exam of your GI tract that is taken after you swallow a chalky liquid that shows up clearly on the X-ray. Endoscopy. This is a procedure to look into your stomach using a thin, flexible tube that has a tiny camera and light on the end of it. How is this treated? This condition may be treated by: Dietary and lifestyle changes to help reduce GERD symptoms. Medicines. These may include: ?Bbaa-fkc-hrdphzv antacids. ?Medicines that make your stomach empty more quickly. ?Medicines that block the production of stomach acid (H2 blockers). ?Stronger medicines to reduce stomach acid (proton pump inhibitors). Surgery to repair the hernia, if other treatments are not helping. If you have no symptoms, you may not need treatment. Follow these instructions at home: Lifestyle and activity Do not use any products that contain nicotine or tobacco. These products include cigarettes, chewing tobacco, and vaping devices, such as e-cigarettes. If you need help quitting, ask your health care provider. Try to achieve and maintain a healthy body weight. Avoid putting pressure on your abdomen. Anything that puts pressure on your abdomen increases the amount of acid that may be pushed up into your esophagus. ?Avoid bending over, especially after eating. ?Raise the head of your bed by putting blocks under the legs. This keeps your head and esophagus higher than your stomach. ?Do not wear tight clothing around your chest or stomach. ?Try not to strain when having a bowel movement, when urinating, or when lifting heavy objects. Eating and drinking Avoid foods that can worsen GERD symptoms. These may include: ?Fatty foods, like fried foods. ?[place] fruits, like oranges or lemon. ?Other foods and drinks that contain acid, like orange juice or tomatoes. ?Spicy food. ?Chocolate. Eat frequent small meals instead of three large meals a day. This helps prevent your stomach from getting too full. ?Eat slowly. ?Do not lie down right after eating. ?Do not eat 1 2 hours before bed. Do not drink beverages with caffeine. These include cola, coffee, cocoa, and tea. Do not drink alcohol. General instructions Take ybwm-lkv-lfsjjmt and prescription medicines only as told by your health care provider. Keep all follow-up visits. Your health care provider will want to check that any new prescribed medicines are helping your symptoms. Contact a health care provider if: Your symptoms are not controlled with medicines or lifestyle changes. You are having trouble swallowing. You have coughing or wheezing that will not go away. Your pain is getting worse. Your pain spreads to your arms, neck, jaw, teeth, or back. You feel nauseous or you vomit. Get help right away if: You have shortness of breath. You vomit blood. You have bright red blood in your stools. You have black, tarry stools. These symptoms may be an emergency. Get help right away. Call 911. Do not wait to see if the symptoms will go away. Do not drive yourself to the hospital. Summary A hiatal hernia occurs when part of the stomach slides above the muscle that separates the abdomen from the chest. A person may be born with a weakness in the hiatus, or a weakness can develop over time. Symptoms of a hiatal hernia may include heartburn, trouble swallowing, or sore throat. Management of a hiatal hernia includes eating frequent small meals instead of three large meals a day. Get help right away if you vomit blood, have bright red blood in your stools, or have black, tarry stools. This information is not intended to replace advice given to you by your health care provider. Make sure you discuss any questions you have with your health care provider. Document Revised: 05/22/2022 Document Reviewed: 05/22/2022 [employer] Patient Education 2022 [employer]. Follow Up Care 06/26/2023 13:24:26 With:Rupa CERRATO, ANTIONETTE Luna, [facility] Address: When: Unknown Comments:Call for any problems. The office will reach out in about one week from procedure date. [facility] 07-02-2023 Note Endoscopy Care After Procedure Please read the instructions outlined below and refer to this sheet in the next few weeks. These discharge instructions provide you with general information on caring for yourself after you leave the hospital. Your doctor may also give you specific instructions. While your treatment has been planned according to the most current medical practices available, unavoidable complications occasionally occur. If you have any problems or questions after discharge, please call your doctor. ACTIVITY ? You may resume your regular activity but move at a slower pace for the next 24 hours. ? Take frequent rest periods for the next 24 hours. ? Walking will help expel (get rid of) the air and reduce the bloated feeling in your abdomen. ? No driving for 24 hours (because of the anesthesia (medicine) used during the test). ? You may shower. ? Do not sign any important legal documents or operate any machinery for 24 hours (because of the anesthesia used during the test). NUTRITION ? Drink plenty of fluids. ? You may resume your normal diet. ? Begin with a light meal and progress to your normal diet. ? Avoid alcoholic beverages for 24 hours or as instructed by your caregiver. MEDICATIONS ? You may resume your normal medications unless your caregiver tells you otherwise. WHAT YOU CAN EXPECT TODAY ? You may experience abdominal discomfort such as a feeling of fullness or ?gas? pains. FOLLOW-UP ? Your doctor will discuss the results of your test with you. seek immediate medical attention if any of the following occur: ? Excessive nausea (feeling sick to your stomach) and/or vomiting. ? Severe abdominal pain and distention (swelling). ? Trouble swallowing. ? Temperature over 100 F (37.8? C). ? Rectal bleeding or vomiting of blood. Document Released: 11/06/2004 Document Re-Released: 09/16/2006 ExitCare? Patient Information ?2009 [employer]. Gastroenterology Esophagitis Esophagitis is inflammation of the esophagus. The esophagus is the tube that carries food from the mouth to the stomach. Esophagitis can cause soreness or pain in the esophagus. This condition can make it difficult and painful to swallow. What are the causes? Most causes of esophagitis are not serious. Common causes of this condition include: ? Gastroesophageal reflux disease (GERD). This is when stomach contents move back up into the esophagus (reflux). ? Repeated vomiting. ? An allergic reaction, especially caused by food allergies (eosinophilic esophagitis). ? Injury to the esophagus by swallowing large pills with or without water, or swallowing certain types of medicines. ? Swallowing harmful chemicals, such as household cleaning products. ? Drinking a lot of alcohol. ? An infection of the esophagus. This most often occurs in people who have a weakened immune system. ? Radiation or chemotherapy treatment for cancer. ? Certain diseases such as sarcoidosis, Crohn's disease, and scleroderma. What are the signs or symptoms? Symptoms of this condition include: ? Difficult or painful swallowing. ? Pain with swallowing acidic liquids, such as citrus juices. You may also have pain when you burp. ? Chest pain and difficulty breathing. ? Nausea and vomiting. ? Pain in the abdomen. ? Weight loss. ? Ulcers in the mouth and white patches in the mouth (candidiasis). ? Fever. ? Coughing up blood or vomiting blood. ? Stool that is black, tarry, or bright red. How is this diagnosed? This condition may be diagnosed based on your medical history and a physical exam. You may also have other tests, including: ? A test to examine your esophagus and stomach with a small flexible tube with a camera (endoscopy). ? A test that measures the acidity level in your esophagus. ? A test that measures how much pressure is on your esophagus. ? A barium swallow or modified barium swallow to show the shape, size, and functioning of your esophagus. ? Allergy tests. How is this treated? Treatment for this condition depends on the cause of your esophagitis. In some cases, steroids or other medicines may be given to help relieve your symptoms or to treat the underlying cause of your condition. You may have to make some lifestyle changes, such as: ? Avoiding alcohol. ? Quitting any products that contain nicotine or tobacco. These products include cigarettes, chewing tobacco, and vaping devices, such as e-cigarettes. If you need help quitting, ask your health care provider. ? Changing your diet. ? Exercising. ? Changing your sleep habits and your sleep environment. Follow these instructions at home: Medicines ? Take baxa-wnk-rxjvppw and prescription medicines only as told by your health care provider. ? Do not take aspirin, ibuprofen, or other NSAIDs unless your health care provider told you to do so. ? If you have trouble taking pills: ? Use a pill splitter to decrease the size of the pi (more content not included)... [facility] 06-18-2023 Note Echocardiology Procedure Exam Date/Time Accession # Ordering Echo Transthoracic 06/18/2023 08:41 EDT [id number] CARMEN CONLEY MD Complete CPT code 17551 52370 Reason for Exam (Echo Transthoracic Complete) R07.9 Chest pain, unspecified Report [facility] [address] [place] [address] Adult Echocardiogram Report Name: IVELISSE GEE Study Date: 06/18/2023 06:57 AM BP: 117/66 mmHg Patient Location: [facility] HR: 71 : 1950 Gender: Female Height: 60 in Age: 72 yrs Ethnicity: [facility] Weight: 155 lb Reason For Study: R07.9 Chest pain, unspecified BSA: 1.7 m2 History: HTN, DM, I have a leaky valve Ordering Physician: CARMEN CONLEY Referring Physician: CARMEN CONLEY Performed By: Katya Ho [facility] Interpretation Summary No comparison study is available. Ejection Fraction = 60-65%. The left ventricular wall motion is normal. Grade I diastolic dysfunction, (abnormal relaxation pattern). There is Trace mitral regurgitation. Right ventricular systolic pressure is 26 mmHg. Procedure A complete two-dimensional transthoracic echocardiogram was performed (2D, M-mode, spectral and color flow Doppler). Study quality is adequate. I WMSI = 1.00 % Normal = 100 Segments Size X - Cannot 2 - 1-2 small Interpret 1 - Normal Hypokinetic 3 - Akinetic 4 - Dyskinetic3-5 moderate 5 - Aneurysmal 6-14 large 15-16 diffuse Left Ventricle The left ventricle is normal in size. There is normal left ventricular wall thickness. Ejection Fraction = 60-65%. The Echocardiology Report left ventricular wall motion is normal. Grade I diastolic dysfunction, (abnormal relaxation pattern). Left Atrium The left atrial size is normal. Right Atrium Right atrial size is normal. Right Ventricle The right ventricular systolic function is normal. Aortic Valve The aortic valve is trileaflet. Focal thickening with preserved cusp opening. Mitral Valve Mitral valve structure is normal. There is Trace mitral regurgitation. Tricuspid Valve Structurally normal tricuspid valve. There is trace tricuspid regurgitation. Right ventricular systolic pressure is 26 mmHg. Pulmonic Valve The pulmonic valve is normal. Arteries The aortic root is normal in size. Venous The inferior vena cava is normal in size, and collapses normally with respiration. Effusion There is no pericardial effusion. MMode/2D Measurements & Calculations RVDd: 3.1 cm LVIDd: 3.7 cm FS: 39.4 % Ao root diam: 2.7 cm IVSd: 0.94 cm LVIDs: 2.3 cm EDV(Teich): 58.7 ml Ao root area: 5.5 cm2 LVPWd: 0.97 cm ESV(Teich): 17.2 ml LA dimension: 3.2 cm EF(Teich): 70.7 % asc Aorta Diam: 2.7 cm LVOT diam: 2.3 cm LVLd ap4: 6.8 cm EDV(MOD-sp2): 48.0 ml LVOT area: 4.1 cm2 EDV(MOD-sp4): 54.2 ml ESV(MOD-sp2): 20.0 ml LVLs ap4: 5.8 cm EF(MOD-sp2): 58.3 % ESV(MOD-sp4): 19.7 ml EF(MOD-sp4): 63.7 % SV(MOD-sp4): 34.5 ml TAPSE: 1.8 cm Ao Sinus of Valsalva: 2.8 cm Ao Sinotubular Junction: 2.1 cm IVC Diam: 1.2 cm RVIDd/LVIDd: 0.83 EF (MOD-bp): 61.1 % LA Vol Index: 24.2 ml/m2 Doppler Measurements & Calculations Echocardiology Report MV E max carri: 85.1 cm/sec MV dec time: 0.21 sec Ao V2 max: 118.4 cm/sec LV V1 max P.3 mmHg MV A max carri: 97.1 cm/sec Ao max P.6 mmHg LV V1 max: 57.0 cm/sec MV E/A: 0.88 Lat Peak E' Carri: 7.0 cm/sec DHARMESH(V,D): 2.0 cm2 E/E' Lat: 12.1 Med Peak E' Carri: 5.6 cm/sec E/E' Med: 15.2 TR max carri: 237.7 cm/sec RAP systole: 3.0 mmHg AV VR: 0.48 TR max P.6 mmHg RVSP(TR): 25.6 mmHg FINAL REPORT Dictated: 06/18/2023 6:57 am Lucho GOINS MD Signed (Electronic Signature): 06/18/2023 12:25 pm Signed by: Lucho GOINS MD Transcribed by: KARYNA Technologist: LE [facility] 05-14-2023 Evaluation note Encounter Date Diagnosis Assessment Notes May, Type 2 diabetes mellitus with hyperglycemia (ICD-10 - E11.65) [employer] Other 12-27-2023 Evaluation note* Encounter Date Diagnosis Assessment Notes Treatment Notes Treatment Clinical Notes Mar, Type 2 diabetes mellitus with hyperglycemia (ICD-10 - E11.65) [employer] Other 12-26-2023 Evaluation note* Encounter Date Diagnosis Assessment Notes Treatment Notes Treatment Clinical Notes Mar, Type 2 diabetes mellitus with hyperglycemia (ICD-10 - E11.65) [employer] Other 12-14-2023 Evaluation note* Encounter Date Diagnosis Assessment Notes Treatment Notes Treatment Clinical Notes Mar, Panic attack (ICD-10 - F41.0) [employer] Other 12-14-2023 Evaluation note* Encounter Date Diagnosis [...] to continue with above medication as directed. [employer] Other 10-19-2023 Evaluation note* Encounter Date Diagnosis [...] normal chest x-ray on January 17 at [facility]. [employer] Other 09-22-2023 Evaluation note* Encounter Date Diagnosis [...] patient is sent home pleased, without concerns. [employer] Other 06-29-2023 Evaluation note* Encounter Date Diagnosis Assessment Notes Treatment Notes Treatment Clinical Notes Sep, Type 2 diabetes mellitus with hyperglycemia (ICD-10 - E11.65) [employer] Other 05-03-2023 Evaluation note* Encounter Date Diagnosis Assessment Notes Treatment Notes Treatment Clinical Notes August, RLQ abdominal pain (ICD-10 - R10.31) [employer] Other 05-02-2023 Evaluation note* Encounter Date Diagnosis Assessment Notes Treatment Notes Treatment Clinical Notes August, RLQ abdominal pain (ICD-10 - R10.31) Acute pain - assess with labs, CT. Discussed differential with pt. [employer] Other 03-15-2023 Evaluation note* Encounter Date Diagnosis [...] as her information was sent last week. [employer] Other 03-07-2023 Evaluation note* Encounter Date Diagnosis Assessment Notes Treatment Notes Treatment Clinical Notes Jun, Dysuria (ICD-10 - R30.0) Jun, Type 2 diabetes mellitus with hyperglycemia (ICD-10 - E11.65) Jun, History of sepsis (ICD-10 - Z86.19) Referral placed to [facility] as was suggested by Dr. William. [facility] Other 03-07-2023 Evaluation note* Encounter Date Diagnosis Assessment Notes Treatment Notes Treatment Clinical Notes Jun, Dysuria (ICD-10 - R30.0) Jun, Type 2 diabetes mellitus with hyperglycemia (ICD-10 - E11.65) Stop Januvia. Start ozempic for improved glucose control. Jun, History of sepsis (ICD-10 - Z86.19) Referral placed to [facility] as was suggested by Dr. William. [employer] Other 02-02-2023 Evaluation note* Encounter Date Diagnosis Assessment Notes Treatment Notes Treatment Clinical Notes May, EDU (generalized anxiety disorder) (ICD-10 - F41.1) [employer] Other 02-02-2023 Evaluation note* Encounter Date Diagnosis Assessment Notes Treatment Notes Treatment Clinical Notes May, Panic attack (ICD-10 - F41.0) Discussed stress, medication and health issues. Will refill med started by ER and monitor symptoms. May, Type 2 diabetes mellitus with hyperglycemia (ICD-10 - E11.65) add medication to improve glucose. Pt agrees to consider further referral if needed. [employer] Other 01-13-2023 Evaluation note* Encounter Date Diagnosis [...] antibiotic tomorrow, will check that it cleared. [employer] Other 01-09-2023 Evaluation note* Encounter Date Diagnosis Assessment Notes Treatment Notes Treatment Clinical Notes Apr, Sepsis due to Staphylococcus (ICD-10 - A41.2) Ivelisse feels that the oral antibiotics are not strong enough. Unsure of root cause of staph sepsis/bacteremia . Admitted to [place] for <24h. Requests referral to ID. Pt concerned that she has immune deficiency or Hep C that she has been septic in the past. Apr, Type 2 diabetes mellitus with hyperglycemia (ICD-10 - E11.65) will continue to hold metformin due to renal labs. Apr, Elevated liver enzymes (ICD-10 - R74.8) Has been to GI in the past [employer] Other 01-05-2023 NotePROGRESS NOTE NOTE DATE: 04/12/2022 [...] prophylaxis: Lovenox. DISPOSITION: Home when medically stable.[facility] [id number] Note PROCEDURE: XR WRIST RT MIN 3 V, XR FOREARM RT 2V COMPARISON: HISTORY: Pain of right wrist FINDINGS: BONES:No acute fracture or dislocation of the forearm or wrist. I'll degenerative changes with joint space narrowing. SOFT TISSUES:Negative. No visible soft tissue swelling. EFFUSION:None visible. OTHER: Negative. IMPRESSION: Mild degenerative changes No acute abnormality Electronically authenticated by: HAYLEY PARHAM Date: 2022-01-07 11:23[facility]10-02-2022 NotePROCEDURE: XR WRIST RT MIN 3 V, XR FOREARM RT 2V COMPARISON: HISTORY: Pain of right wrist FINDINGS: BONES:No acute fracture or dislocation of the forearm or wrist. I'll degenerative changes with joint space narrowing. SOFT TISSUES:Negative. No visible soft tissue swelling. EFFUSION:None visible. OTHER: Negative. IMPRESSION: Mild degenerative changes No acute abnormality Electronically authenticated by: HAYLEY PARHAM Date: 2022-01-07 11:23[facility]05-06-2022 Miscellaneous Notes* Telephone Encounter - Marta Valero - 08/11/2021 12:13 PM EDT Called patient to reschedule an appointment per patient she no longer see Dr. Aguilar and that she had cancelled appointments last year confirmed with patient that she would like to cancel and did notneed to reschedule. [facility]-2021 NoteHNO ID: [id number] Author: Mehrdad Aguilar MD Service: ? Author Type: Physician Type: Progress Notes Filed: 10/02/2020 5:36 PM Note Text: PATIENT NAME: Ivelisse Gee DATE: 09/30/2020 PRIMARY CARE PHYSICIAN: Carmen Conley MD OTHER PHYSICIANS: Dr. Wahl ([place], [place]), Dr. Magdaleno Castillo ([facility]) Portions of this encounter note have [...] extremities and face. Negative (more content not included)...[facility]06-16-2021 NoteHNO ID: [id number] Author: RT Nancie(R) Service: ? Author Type: Sales Clerk Type: Progress Notes Filed: 09/21/2020 11:30 [...] Gee DATE: September 21, 2020 TIME: 11:28 [facility]06-16-2021 NoteHNO ID: [id number] Author: RT Nancie(R) Service: ? Author Type: Sales Clerk Type: Progress Notes Filed: 09/21/2020 11:26 [...] Gee DATE: September 21, 2020 TIME: 11:18 [facility]05-25-2021 NoteHNO ID: [id number] Author: RT Akhil(R) Service: ? Author Type: Sales Clerk Type: Progress Notes Filed: 08/30/2020 11:31 [...] BY: RT Akhil(R) August 30, 2020 11:30 [facility]05-14-2021 NoteHNO ID: [id number] Author: Mehrdad Aguilar MD Service: ? Author Type: Physician Type: Progress Notes Filed: 08/20/2020 1:40 PM Note Text: PATIENT NAME: Ivelisse Gee DATE: 08/19/2020 PRIMARY CARE PHYSICIAN: Carmen Conley MD OTHER PHYSICIANS: Dr. Wahl ((PCP [place], [place]) HPI: This is a 70 year [...] requiring hospitalization, most recently while residing in [place] in June 2020. During her recent hospitalization labs revealed persistent thrombocytopenia with a platelet count ranging from 80-90,000. The patient is currently referred for evaluation of her abnormal CBC. Since the patient's hospitalization she started zlmt-zzz-qqqfphx supplements including multivitamin. She has had no [...] EXAM: Well developed/well n (more content not included)...[facility] Future Appointments Appointment Date:06/21/2023 01:30:00 PM Scheduled Provider:Deonte Peraza MD [facility] [place] [facility] Type:Cardiology New Patient (FT) Appointment Date:06/26/2023 12:30:00 PM Scheduled Provider:Shaun Goode MD [place] [place] [facility] [facility] Future Appointments Appointment Date:06/26/2023 12:30:00 PM Scheduled Provider:Shaun Goode MD [place] [place] [facility] App[place]ment Type:BAD New Patient Appointment Date:08/22/2023 02:00:00 PM Scheduled Provider:Deonte Peraza MD [facility] Type:Cardiology Follow Up (FT) Future Scheduled Tests Radiology* NM Myocardial Spect Rest/Stress 1 Day 06/21/23 [facility] Future Appointments Appointment Date:07/02/2023 09:45:00 AM Scheduled Provider: Mayra:[facility] Appointment Type:Surgery FT Appointment Date:08/22/2023 02:00:00 PM Scheduled Provider:Deonte Peraza MD [facility] Type:Cardiology Follow Up (FT) Future Scheduled Tests Radiology* NM Myocardial Spect Rest/Stress 1 Day 3/15/24 [facility] Evaluation + Plan note Future Appointments Appointment Date:07/02/2023 09:45:00 AM Scheduled Provider: Location:[facility] Appointment Type:Surgery FT Appointment Date:08/22/2023 02:00:00 PM Scheduled Provider:Deonte Peraza MD Location:.[facility] Clinic Appointment Type:Cardiology Follow Up (FT) Diagnostic Tests Pending * Alpha Fetoprotein Tumor Marker 06/26/23 Future Scheduled Tests Radiology* NM Myocardial Spect Rest/Stress 1 Day 06/21/23 [facility] Future Appointments Appointment Date:08/22/2023 02:00:00 PM Scheduled Provider:Deonte Peraza MD [facility] Type:Cardiology Follow Up (FT) Future Scheduled Tests Radiology* NM Myocardial Spect Rest/Stress 1 Day 06/21/23 [facility] Future Appointments Appointment Date:08/05/2023 08:00:00 AM Scheduled Provider: [facility] Type:NM Myocard Spect Multi Rest/Stress-Res Appointment Date:08/05/2023 09:00:00 AM Scheduled Provider: [facility] App[facility] Type:NM Myocard Spect Multi Rest/Stress - R Appointment Date:08/05/2023 09:30:00 AM Scheduled Provider: [facility] Appoint[facility] Type:NM Myocard Spect Multi Rest/Stress-Str Appointment Date:08/05/2023 10:30:00 AM Scheduled Provider: [facility] Appoint[facility] Type:NM Myocar Spect Multi Rest/Stress - St Appointment Date:08/05/2023 11:00:00 AM Scheduled Provider: [facility] Type:CV Holter/Event (FT) Appointment Date:08/06/2023 10:30:00 AM Scheduled Provider: [facility] Appoint[facility] Type:US Abdominal/Pelvis (FT) Appointment Date:08/22/2023 02:00:00 PM Scheduled Provider:Deonte Peraza MD Location:.[facility] Clinic Appointment Type:Cardiology Follow Up (FT) Appointment Date:01/08/2024 12:15:00 PM Scheduled Provider:Shaun Goode MD [place] [place] [facility] Appointment Type:[facility] Follow Up Future Scheduled Tests Laboratory* Alpha Fetoprotein Tumor Marker 07/24/23 * Alpha Fetoprotein Tumor Marker 01/23/24 * CBC w/ Auto Diff 07/24/23 * CBC w/ Auto Diff 01/23/24 * Comprehensive Metabolic Panel 07/24/23 * Comprehensive Metabolic Panel 01/23/24 * PT 07/24/23 * PT 01/23/24 Radiology* NM Myocardial Spect Rest/Stress 1 Day 08/05/23 * US Liver 08/06/23 [facility] Evaluation + Plan note Future Appointments Appointment Date:08/15/2023 09:00:00 AM Scheduled Provider: [facility] Appoint[facility] Type:NM Myocard Spect Multi Rest/Stress-Res Appointment Date:08/15/2023 10:00:00 AM Scheduled Provider: [facility] Appoint[facility] Type:NM Myocard Spect Multi Rest/Stress - R Appointment Date:08/15/2023 10:30:00 AM Scheduled Provider: [facility] Type:NM Myocard Spect Multi Rest/Stress-Str Appointment Date:08/15/2023 11:30:00 AM Scheduled Provider: [facility] App[facility] Type:NM Myocar Spect Multi Rest/Stress - St Appointment Date:08/27/2023 01:00:00 PM Scheduled Provider:Dontae Hernández PA-C [facility] Type:Cardiology Follow Up (FT) Appointment Date:01/08/2024 12:15:00 PM Scheduled Provider:Shaun Goode MD [place] [facility] [place] [facility] Appointment Type:[facility] Follow Up Future Scheduled Tests Laboratory* Alpha Fetoprotein Tumor Marker 07/24/23 * Alpha Fetoprotein Tumor Marker 01/23/24 * CBC w/ Auto Diff 07/24/23 * CBC w/ Auto Diff 01/23/24 * Comprehensive Metabolic Panel 07/24/23 * Comprehensive Metabolic Panel 01/23/24 * PT 07/24/23 * PT 01/23/24 Radiology* NM Myocardial Spect Rest/Stress 1 Day 08/15/23 * US Liver [facility]16[facility]23 [facility] Future Appointments Appointment Date:08/27/2023 01:00:00 PM Scheduled Provider:Dontae Hernández PA-C [facility] Type:Cardiology Follow Up (FT) Appointment Date:01/08/2024 12:15:00 PM Scheduled Provider:Shaun Goode MD Location:[facility] Appointment Type:BADH Follow Up Future Scheduled Tests Laboratory* Alpha Fetoprotein Tumor Marker 07/24/23 * Alpha Fetoprotein Tumor Marker 01/23/24 * CBC w/ Auto Diff 07/24/23 * CBC w/ Auto Diff 01/23/24 * Comprehensive Metabolic Panel 07/24/23 * Comprehensive Metabolic Panel 01/23/24 * PT 07/24/23 * PT 01/23/24 Radiology* US Liver 08/16/23 [facility] Future Appointments Appointment Date:10/08/2023 01:45:00 PM Scheduled Provider:Dontae Hernández PA-C [facility] Type:Cardiology Follow Up (FT) Appointment Date:01/08/2024 12:15:00 PM Scheduled Provider:Shaun Goode MD Location:[facility] Appointment Type:BADH Follow Up Future Scheduled Tests Laboratory* Alpha Fetoprotein Tumor Marker 07/24/23 * Alpha Fetoprotein Tumor Marker 01/23/24 * CBC w/ Auto Diff 07/24/23 * CBC w/ Auto Diff 01/23/24 * Comprehensive Metabolic Panel 07/24/23 * Comprehensive Metabolic Panel 01/23/24 * PT 07/24/23 * PT 01/23/24 Radiology* NM Myocardial Spect Rest/Stress 1 Day 09/06/23 * US Liver 08/16/23 [facility] Future Appointments Appointment Date:10/08/2023 01:45:00 PM Scheduled Provider:Dontae Hernández PA-C [facility] Type:Cardiology Follow Up (FT) Appointment Date:01/08/2024 12:15:00 PM Scheduled Provider:Shaun Goode MD Location:[facility] Appointment Type:BADH Follow Up Future Scheduled Tests Laboratory* Alpha Fetoprotein Tumor Marker 07/24/23 * Alpha Fetoprotein Tumor Marker 01/23/24 * CBC w/ Auto Diff 07/24/23 * CBC w/ Auto Diff 01/23/24 * Comprehensive Metabolic Panel 07/24/23 * Comprehensive Metabolic Panel 01/23/24 * PT 07/24/23 * PT 01/23/24 Radiology* US Liver 08/16/23 [facility] Future Appointments Appointment Date:01/08/2024 12:15:00 PM Scheduled Provider:Shaun Goode MD [place] [facility] [place] [facility] Appointment Type:BAD[facility] Follow Up Appointment Date:04/14/2024 01:00:00 PM Scheduled Provider:Dontae Hernández PA-C [facility] Type:Cardiology Follow Up (FT) Future Scheduled Tests Laboratory* Alpha Fetoprotein Tumor Marker 07/24/23 * Alpha Fetoprotein Tumor Marker 01/23/24 * CBC w/ Auto Diff 07/24/23 * CBC w/ Auto Diff 01/23/24 * Comprehensive Metabolic Panel 07/24/23 * Comprehensive Metabolic Panel 01/23/24 * PT 07/24/23 * PT 01/23/24 Radiology* US Liver 08/16/23 [facility] noteNo InformationNort [employer] Other Evaluation note* Diagnosis Thrombocytopenia (HCC) Thrombocytopenia, unspecified 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 documented in this encounter [facility] general Narrative - Reported* Type Description Date [...] History septic shock Hospitalization History Sepsis 07/07/2020 [employer] Other [facility] general Narrative - Reported* Type Description Date [...] History septic shock Hospitalization History Sepsis 07/07/2020 [employer] Other History general Narrative - Reported* Type [...] Sepsis 07/07/2020 Hospitalization History Covid positive 01/17/23 [employer] Other Hospital course Narrative No data available for this section [facility] No data available for this section [facility] No data available for this section [facility] Summary Purpose Family History No Family History Records FoundNo Family History Records FoundNo Family History Records FoundNo Family History Records FoundNo Family History Records Found No data available for this section No data available for this section No data available for this section No data available for this section No data available for this section No data available for this section No data available for this section No data available for this section No data available for this section No data available for this section No data available for this section No data available for this section No Family History Records FoundNo Family History Records Found Advance Directives No Advanced Directives Records FoundNo Advanced Directives Records FoundNo Advanced Directives Records FoundNo Advanced Directives Records FoundNo Advanced Directives Records FoundNo Advanced Directives Records FoundNo Advanced Directives Records Found Reason for Referral Reason CLOSED Dr. Callahan - will scan in reports from [facility] last week Diagnosis 1 Sepsis due to Staphy lococcus (A41.2) Referral Organization [facility] [employer] Referring Provider First Name Carmen Referring Provider Last Name Conley Referring Provider Specialty Family Medi cine Referred Organization [facility] Infectious Dis ease Referred Provider Blayne Callahan Referred Address [address] [place],[address] Referred Provider Specialty Infectious D isease Referral Priority Routine General Notes Itzel Parekh 03:10:38 PM >received today, labs, and notes attached, locked and faxed P2P Itzel Parekh 04/18/2022 10:54:24 AM >per Dr. Callahan pt does not need to be seen to treat Reason 06/11/22 Labs pend ing, has fibro. strong family history of autoimmune issues. Diagnosis 1 Myalgia (M79.10) Referral Organization [facility] [employer] [facility] [employer] Referring Provider First Name Carmen Referring Provider Last Name Conley Referring Provider Specialty [facility] cine Referred Organization [facility] Referred Provider Daniel Gomez Referred Address [address] [place],[address] Referred Provider Specialty Rheumatology Referral Priority Routine Referral Appointment Date 2022-06-11 General Notes Itzel Parekh 03:45:56 PM >received today, labs pending. ins card attached, notes locked and referral faxed Itzel Parekh 04/27/2022 10:22:51 AM >faxed first attempt letter Itzel Parekh 04/30/2022 02:17:43 PM >received fax with appt date and time Reason 06/28/22 Pt wants to see the [employer] in [facility] - phone is [phone]. Please send same info that was sent to the referral for Dr. Gomez. Thanks Diagnosis 1 Dysuria (R30.0) Referral Organization [facility] Referring Provider First Name Carmen Referring Provider Last Name Yael Referring Provider Specialty [facility] [employer] Referred Organization Unknown Facility Referred Provider Specialty Immunology Referral Priority Routine Referral Appointment Date 2022-06-28 General Notes Itzel Parekh 11:00:51 AM >received today, attachments made, notes locked, referral faxed Itzel Parekh 06/20/2022 01:01:04 PM >faxed first attempt letter Itzel Parekh 06/21/2022 08:59:47 AM >RECEIVED FAX WITH APPT DATE AND TIME Clinical Notes p: [phone] f: [id number] Reason 06/28/22 Pt wants to see the [employer] in [facility] - phone is [phone]. Please send same info that was sent to the referral for Dr. Gomez. Thanks Diagnosis 1 Dysuria (R30.0) Referral Organization [facility] Referring Provider First Name Carmen Referring Provider Last Name Yael Referring Provider Specialty [facility] [employer] Referred Organization Unknown Facility Referred Provider Specialty [...] for review. Closing referral Clinical Notes p: [phone] f: [id number] Additional Source Comments INFORMATION SOURCE (unrecogn ized section and content) DATE CREATED AUTHOR 02/05/2021 [facility] DATE CREATED AUTHOR AUTHOR'S ORGANIZ ATION 08/12/2021 [facility] DATE CREATED AUTHOR AUTHOR'S ORGANIZ ATION 07/28/[address] [facility] DATE CREATED AUTHOR AUTHOR'S ORGANIZ ATION 08/16/2022 [facility] DATE CREATED AUTHOR AUTHOR'S ORGANIZ ATION 04/17/2023 [facility] DATE CREATED AUTHOR AUTHOR'S ORGANIZ ATION 10/09/2023 Azam Quiroz [facility] DATE CREATED AUTHOR AUTHOR'S ORGANIZ ATION 11/02/2023 [facility] Source Comments (unrecognize d section and content) In the event this informatio n is protected by the Federal Confidentiality of Alcohol and Drug Abuse Patient Records regulations: The Federal rules restrict any use of the information to criminally investigate or prosecute any alcohol or drug abuse patient.[facility]healthIn the event this information is protected by the Federal Confidentiality of Alcohol and Drug Abuse Patient Records regulations: The Federal rules restrict any use of the information to criminally investigate or prosecute any alcohol or drug abuse patient.[facility] Reason for Visit (unrecogniz ed section and content) Reason Comments Appointment Care Teams (unrecognized sec tion and content) [employer] External Relationship Specialty Start Date End Date Carmen Conley MD [address] [place] [address] PCP - General Family Practice 08/04/20 [employer] External Relationship Specialty Start Date End Date Carmen Conley MD [address] [place] [address] PCP - General Family Medicine 08/04/20 FOR [...] BE BASED ON THE PRIMARY CLINICAL RECORDS. [facility]. provides no warranty or guarantee of the accuracy or completeness of information in this document.
== END 2023-11-05 07:29 | disposition home or self-care (01) ==
LOC: MRI 07:28
PROVIDERS: PCP Family Medicine; Visit Provider Anesthesiology
DX: M48.062 Spinal stenosis, lumbar region with neurogenic claudication (principal); M51.36 Other intervertebral disc degeneration, lumbar region
CPT/HCPCS: 72148

== ENCOUNTER 2023-11-25 12:38 | Outpatient (OUT) | payer MEDICARE, OTHER, SELFPAY ==
--- NOTE | 2023-11-25 13:31 | P.CN_ITS ---
Consult Note: HPI Data of Consult Patient: known to practice within the last 3 years Consult date: 11/25/23 Requesting Physician: Nohemy Mohamud MD Primary Care Provider: Flor Mosqueda MD Consult Narrative Reason for consult: neck, right arm, low back, right leg pain Narrative: 73yof who presents for assessment. worsening pain from back to right leg, as well as neck to right arm. lumbar mri reviewed, which shows degenerative changes in lower back, including disc bulging at l4-5 and stenosis at l5-s1. no imaging of neck available. states gabapentin only makes her tired, but does not affect symptoms. continues in chiropractic therapy. denies adverse med side effects. cc:: CC: Nohemy Mohamud MD Review of Systems ROS Status of ROS 10 or more systems reviewed and unremark able except as noted in history and below [facility] Medical History (Updated 11/25/23 @ 13:37 by Nohemy Mohamud MD) Cystocele with rectocele ?N81.10 - Cystocele, unspecified (ICD-10) ?N81.6 - Rectocele (ICD-10) Rheumatoid arthritis ?M06.9 - Rheumatoid arthritis, unspecified (ICD-10) Fibromyalgia ?M79.7 - Fibromyalgia (ICD-10) Anxiety ?F41.9 - Anxiety disorder, unspecified (ICD-10) Acid reflux ?K21.9 - Gastro-esophageal reflux disease without esophagitis (ICD-10) Diabetes ?E11.9 - Type 2 diabetes mellitus without complications (ICD-10) Cirrhosis of liver ?K74.60 - Unspecified cirrhosis of liver (ICD-10) High blood pressure ?I10 - Essential (primary) hypertension (ICD-10) Irregular heart beat ?I49.9 - Cardiac arrhythmia, unspecified (ICD-10) Surgical History H/O arthroscopy of shoulder ?Z98.890 - Other specified postprocedural states (ICD-10) History of tonsillectomy and adenoidectomy ?Z90.89 - Acquired absence of other organs (ICD-10) Social History Smoking status: Never smoker Meds Home Medications and Allergies Home Medications ?Medication ?Instructions ?Recorded ?Confirmed ?Type benazepril 20 mg tablet 20 mg PO DAILY 01/17/23 10/28/23 History citalopram 40 mg tablet (Celexa) 40 mg PO DAILY 01/17/23 10/28/23 History levothyroxine 50 mcg tablet 50 mcg PO DAILY 01/17/23 10/28/23 History (Euthyrox) trazodone 50 mg tablet 50 mg PO DAILY 01/17/23 10/28/23 History atorvastatin 10 mg tablet 10 mg PO QPM 05/25/23 10/28/23 History esomeprazole magnesium 20 mg 20 mg PO DAILY 28 days #28 caps 05/25/23 10/28/23 Rx capsule,delayed release (Nexium) semaglutide 14 mg tablet (Rybelsus) 14 mg PO DAILY 05/25/23 05/25/23 History gabapentin 300 mg capsule 300 mg PO TID 10/28/23 10/28/23 History lorazepam 0.5 mg tablet (Ativan) 0.25 mg PO DAILY PRN anxiety 10/28/23 10/28/23 History metoprolol tartrate 25 mg tablet 25 mg PO DAILY 10/28/23 10/28/23 History pantoprazole 40 mg tablet,delayed 40 mg PO DAILY 10/28/23 10/28/23 History release tizanidine 4 mg capsule 4 mg PO DAILY 10/28/23 10/28/23 History Allergies Allergy/AdvReac Type Severity Reaction Status Date / Time adhesive tape Allergy Unknown Verified 01/17/23 05:32 Sulfa (Sulfonamide Allergy Unknown Verified 01/17/23 05:32 Antibiotics) Exam Narrative Exam Narrative: Psych-alert and oriented x 3. Attentive and appropriate, constitutionally normal, displays normal mood and affect per situation. There are no obvious deficits in memory, reasoning, or intellect.? Skin-no obvious rashes, bruising, erythema noted to the patient's area of pain.? Extremities- extremities are warm with minimal edema and palpable pulses. Lumbar-tenderness to palpation noted in the lumbar spine and paraspinal musculature. Pain is elicited with flexion, extension, and lateral rotation of the lumbar spine. Range of motion is diminished with these motions. Facet loading maneuvers are positive. Strength-noted to be unremarkable with the exception of decreased strength rated at 4 out of 5 in right quadriceps femoris, anterior tibialis. Sensory-no notable sensory deficits in the bilateral lower extremities to touch or pinprick in all dermatomal distributions with the exception to decreased sensation to the right L4, 5 dermatomal distribution Sacroiliac - tender to palpation over right PSIS. Positive Parrish's on right. Positive thigh thrust on right. Coordination remains intact.? Gait remains non-antalgic. Assessment and Plan Assessment and Plan (1) Lumbar stenosis with neurogenic claudication: (2) Lumbar spondylosis: (3) Neck pain: (4) Sacroiliac joint pain: Plan 73yof who presents for assessment. failed conservative measures, as noted. imaging reviewed, as noted. in terms of low back and leg pain, will have her undergo right l4-5, l5-s1 tfesi under fluoroscopic guidance. may even benefit from right sij injection. she is in agreement. in terms of neck and arm pain, will have her undergo cervical XR. she is in agreement. meds reviewed. will discontinue gabapentin and try cymbalta 60mg qhs. follow up after procedure.
== END 2023-11-25 12:39 | disposition home or self-care (01) ==
LOC: PM 12:38
PROVIDERS: PCP Family Medicine; Visit Provider Anesthesiology
DX: M48.062 Spinal stenosis, lumbar region with neurogenic claudication (principal); M47.816 Spondylosis without myelopathy or radiculopathy, lumbar region; M54.2 Cervicalgia; M53.3 Sacrococcygeal disorders, not elsewhere classified
CPT/HCPCS: G0463

== ENCOUNTER 2023-12-16 09:05 | Day surgery (SDC) | payer MEDICARE, OTHER, SELFPAY ==
--- OUTSIDE RECORDS SUMMARY | 2023-12-16 09:28 | XMS_ITS | CCD ---
Author Organization [facility] Care Team Providers Care Replenishment Merchandising Associate Name Role Phone Carmen Conley MD Primary Care Provider [phone] Carmen Conley Attending Unavailable Carmen Conley Primary Care Unavailable Yael, Carmen Riggins Admitting [...] CONLEY, DR CARMEN Riggins Primary Care Unavailable LYON, DR HAYLEY Martinez Consulting Unavailable CONLEY, DR [...] Unavailable CONLEY, DR CARMEN Riggins Consulting Unavailable OCNLEY, DR CARMEN Riggins Attending Unavailable CONLEY, DR [...] Referring Unavailable Shaun Goode AJeff Attending Unavailable MouchYvette hobbsamad AJeff Attending Unavailable MoYvette marshamad AJeff Attending Unavailable Momaximo Mohamad AJeff Admitting Unavailable MoRamya marshd AJeff Referring Unavailable Shaun Goode Attending Unavailable MD Lucho GOINS Consulting Unavailable CARMEN CONLEY Referring Unavailable CARMEN CONLEY Attending Unavailable CARMEN CONLEY Admitting Unavailable Lucho GOINS Consulting Unavailable Lucho GOINS Consulting Unavailable Deonte Peraza Referring Unavaila Deonte Larsen Attending Unavaila Deonte Larsen Admitting Unavaila JANUSZ Gilmore Attending Unavailable JANUSZ Hernández Admitting Unavailable JANUSZ Hernández Referring Unavailable Shaun Goode Attending Unavailable Shaun Goode AJeff Admitting Unavailable Oneida CERRATO, Nohemy Aguayo Attending Unavailable Oneida CERRATO, Nohemy Aguayo Attending Unavailable Allergies Allergy Classification Reported Allergen(s) Allergy Type Date of Onset Reaction(s) Facility Sulfonamides (antibiotic) (1 source) Sulfonamides (Antibiotic); Translations: [sulfa drugs] Drug Allergy Weal (disorder) [facility] (2 sources) Latex Drug Allergy 09-07-19 17 Unknown [facility] (2 sources) Sulfonamides (Antibiotic) Drug Allergy 09-06-19 17 Anaphylaxis [facility] (20 sources) Latex Propensity to adverse reactions Unknown [employer] Other (20 sources) Sulfonamides (Antibiotic) Propensity to adverse reactions Unknown [employer] Other (1 source) Latex Drug allergy (disorder) 10-15-19 16 [facility] (1 source) Sulfonamides (Antibiotic) Drug allergy (disorder) 08-19-19 13 [facility] (13 sources) sulfADIAZINE Drug Allergy 09-12-19 18 Comment:LUNA [employer] Other (12 sources) Adhesive bandage; Translations: [Adhesive Bandage] Drug allergy Eruption of skin (disorder) [facility] (11 sources) Sulfonamides (Antibiotic); Translations: [sulfa drugs] Drug allergy Weal (disorder) [facility] Medications Current Medications Medication Drug Class(es) Dates Sig (Normalized) Sig (Original) [id number] 60 actuat albuterol 0.09 mg/actuat metered dose [...] Daily, # 30 cap(s), Refills(s) 5, Pharmacy: [facility]/pharmacy #[id number], 155, cm, 06/26/23 12:22:00 EDT, Height/Length [...] Daily, # 30 tab(s), Refills(s) 2, Pharmacy: [facility]/pharmacy #[id number], 155, cm, 09/05/23 10:04:00 EDT, Height/Length Dosing, 71.2, kg, 09/05/23 10:04:00 EDT, Weight Dosing Start Date: 09/05/23 Status: Ordered minocycline 50 mg oral capsule (6 sources) Tetracycline-class Drug Minocycline 50 MG 1 capsule once a day for a month Active Ozempic (0.25 or 0.5 MG/DOSE) 2 MG/1.5ML (7 sources) Start: 03-07-2023 Ozempic (0.25 or 0.5 MG/DOSE) 2 MG/1.5ML 0.5mg Subcutaneous weekly Jun, Active pantoprazole 40 mg delayed release oral tablet (6 sources) Proton Pump Inhibitor Start: 07-24-2023 take 1 tablet by mouth once daily Pantoprazole [address] Tab 40 mg = 1 tab(s), Oral, Daily, # 90 tab(s), Refills(s) 3, Pharmacy: [facility]/pharmacy #[id number], 153, cm, 07/24/23 13:54:00 EDT, Height/Length [...] sources) Long-term current use of insulin; 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 Substitutions may have occurred due to the [...] Ozempic, Sub (more content not included)... Normal [facility] Comment on above: Result Comment: Elec tronically Signed By: Edgar BOUDREAUX, Dontae Wolfe\\.elyse\\Date and Time Signed: 10/08/23 13:53 EDT NM Myocardial Spect Rest/Str ess 1 Dayon 10-02-2023 NM Myocardial Spect Rest/Stress 1 Day Exam Date/Time: 10/01/2023 14:13 EDT Reason for Exam: ventricular tachycardia;Other (please specify) Report [facility] [address] [place] [address] Nuclear Stress Report Name: IVELISSE GEE Study Date: 10/01/2023 12:32 PM Patient Location: [facility] : 1950 (M/d/yyyy) Gender: Female Age: 73 yrs Ethnicity: T Reason For Study: Other (please specify) Ordering Physician: Dontae Hernández Referring Physician: Dontae Hernández Protocol 92418 Pharmacologic Lexiscan stress with Isotope. Study Protocol: [...] Signed by: Deonte Peraza MD Transcribed by: [facility] Technologist: ISAAC [facility] Consent for Treatmenton 09-07 Consent for Treatment [id number]#1.00TIF F [facility] Monitor Recordon 10-01-2023 Monitor Record [id number]#1.00TIF F [facility] Event Monitoron 09-30-2023 Event Monitor EVENT MONITOR [...] BY: Ciaran Villatoro MD ca Dictated: 09/28/2023 [id number] Transcribed: 09/30/2023 [facility] Comment on above: Result Comment: Elec tronically Signed By: Shauna CERRATO, Ciaran Mccabe\\.br\\Date and Time Signed: 09/30/23 13:51 EDT Consent for Treatmenton 08-08 Consent for Treatment [id number]#1.00TIF F [facility] Heart and Vascular Office/Cl inic Noteon 09-05-2023 [...] Daily, # 30 tab(s), Refills(s) 2, Pharmacy: [facility]/pharmacy #[id number], 155, cm, 09/05/23 10:04:00 EDT, Height/Length [...] with voice recognition artificial intelligence software, specifically [employer], [employer] and or [employer]. Substitutions may have occurred due to the [...] Father. Immunizations [facility] (more content not included)... [facility] Comment on above: Result Comment: Elec tronically Signed By: Edgar BOUDREAUX, Dontae Wolfe\\harvinder\\Date and Time Signed: 09/05/23 12:53 EDT Physician Orderon 09-05-2023 Physician Order [id number]#1.00T IFF [facility] Monitor Recordon 09-03-2023 Monitor Record [id number]#1.00TI FF [facility] Consent for Treatmenton 07-08 Consent for Treatment [id number]#1.00TIF F [facility] Ambulatory Visit Summaryon 0 07-24-2023 Ambulatory Visit Summary IVELISSE GEE :1950 Visit Date:07/24/2023 Ambulatory Visit Instructions Your [...] Medicine Saturday 11:00 AM EDT With: Where: [facility] 2023 2:00 PM EDT With: Karmen CERRATO, Deonte Roth Where: [facility] Saturday 12:15 PM EDT With: Rupa CERRATO, Shaun Xiao Where: [facility] Digestive Health Normal [facility] Gastroenterology Office/Clin ic Noteon 07-24-2023 Gastroenterology Office/Clinic [...] 1-2 bowel movements every day by using zimv-oet-udilplu laxatives such as senna Advised to massage [...] Daily, # 30 cap(s), Refills(s) 5, Pharmacy: [facility]/pharmacy #[id number], 155, cm, 06/26/23 12:22:00 EDT, Height/Length Dosing, 72.1, kg, 06/26/23 12:22:00 EDT, Weight Dosing pantoprazole, 40 mg = 1 tab(s), Oral, Daily, # 90 tab(s), Refills(s) 3, Pharmacy: [facility]/pharmacy #[id number], 153, cm, 07/24/23 13:54:00 EDT, Height/Length [...] influenza virus vaccine, inactivated 04/09/2016 Recorded Normal [facility] Comment on above: Result Comment: Elec tronically Signed By: Rupa CERRATO, Shaun Resendiz.br\\Date and Time Signed: 07/24/23 14:16 EDT IntraOperative Documentson 0 07-04-2023 IntraOperative Documents [id number]#1.00TI FF [facility] Consenton 07-03-2023 Consent [id number]#1.00TI [facility] Discharge Instructionson Discharge Instructions [id number]#1.00TI [facility] Main OR Intraoperative Recor don 07-03-2023 Main OR Intraoperative Record IntraOp Document Type FT Summary Primary Physician: Shaun Goode MD Finalized Date/Time: 07/03/23 11:58:54 Pt. Name: MARLEN IVELISSE Aiden MannB./Sex: 1950 Female Med Rec #: [id number] Physician: Shaun Goode MD Financial #: [id number] Pt. 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 [...] duodenal biopsies Primary Procedure Yes Primary Surgeon Rupa CERRATO, Shaun Xiao Start 07/02/23 09:15:00 Stop 07/02/23 09:19:00 Anesthesia [...] and tissue Entry 1 Skin Integrity Intact, [place], Warm, and Skin Abnormality No Dry Outcomes [...] Yes Left (more content not included)... Normal [facility] Postoperative Documentson Postoperative Documents [id number]#1.00TI FF Normal [facility] Progress Note-Physicianon Progress Note-Physician Patient: IVELISSE GEE [...] selected or recorded. Histories Procedure history: Bladder ([id number]). Comments: 06/26/2023 12:18 EDT - Claritza Cuencaney 15 years ago Gallbladder (72663078). Hysterectomy (554553445). Arm (0537349910). Hand (873606246). Social History Social & Psychosocial Habits Tobacco 06/26/2023 Risk Assessment: Denies Tobacco Use 06/26/2023 Tobacco Use: Never (less than 100 in l . Physical Examination Airway: Mallampati classification: II (soft palate, fauces, uvula visible). Respiratory: adequate air exchange. Cardiovascular: Regular rhythm. Plan [place] [employer] Anesthesiologists (ASA) physical status classification: Class II. Anesthetic Preoperative Plan: Anesthesia General. Normal [facility] Comment on above: Result Comment: Elec tronically Signed By: Brant Friedman Jr, DO\\.br\\Date and Time Signed: 07/03/23 15:21 EDT Progress Note-Physician Patient: IVELISSE GEE Age: 72 years Sex: Female : 1950 Associated Diagnoses: None Author: Brant Friedman Jr, DO Postoperative Information Postoperative disposition: Postoperative disposition: To PACU. Optimetrix number: Optimetrix number [id number]. Anesthetic utilized: General. Health Status Allergies: Allergic [...] when meets criteria ( To home ). [facility] Comment on above: Result Comment: Elec tronically Signed By: Brant Friedman Jr, DO\\.br\\Date and Time Signed: 07/03/23 15:20 EDT Consent for Treatmenton 06-07 Consent for Treatment [id number]#1.00TIF F [facility] Discharge Instructionson Discharge Instructions IVELISSE GEE :1950 Visit Date:07/02/2023 Inpatient Discharge Instructions Your Care Team Admitting Physician - Shaun Goode MD Referring Physician - Shaun Goode MD Reason for Your Visit EPIGASTRIC PAIN, CIRRHOSIS [...] Doctor Event Name Event Result [facility] Previously Scheduled Follow-Up Appointments August. 2023 2:00 PM EDT With: Karmen CERRATO, Deonte Roth Where: [facility] New Follow Up Appointments after Discharge Follow Up with Rupa CERRATO, ANTIONETTE Luna, [facility] When: Comments: Call for any problems. The [...] Document Re-Released: 09/16/2006 ExitCare? Patient Information ?2009 Super Derivatives. Esophagitis Esophagitis is inflammation of the esophagus. [...] to the (more content not included)... Normal [facility] Comment on above: Result Comment: Elec tronically Signed By: Elma Vanessa.br\\Date and Time Signed: 07/02/23 09:34 EDT Nicole [...] Daily, # 30 cap(s), Refills(s) 5, Pharmacy: [facility]/pharmacy #[id number], 155, cm, 06/26/23 12:22:00 EDT, Height/Length [...] duodenum status post biopsies Images Procedure images: Rechd_video_ [id number].jpg Rec_hd_video_ [id number].jpg Rec_hd_video_ [id number].jpg Rec_hd_video_ [id number].jpg Rec_hd_video_ [id number].jpg Rec_hd_video_ [id number].jpg . Post-Procedure Complications: none. Estimated blood loss: none. Specimens: sent to pathology. Devices/ implants: none left in place. Impression and Plan EGD: Diagnosis: Esophagitis, reflux (LXI57-OA K21.00, Working, Medical). Course: Progressing as expected. Education and Follow-up: Counseled: Family. Notes: Start Protonix 40 mg once daily Might benefit from Carafate in the future. Maryuri [facility] Comment on above: Other Comment: Kathy hernandez Attachment - attachment storage system not supported [id number] Can be viewed in source system Missing Attachment - attachment storage system not supported [id number] Can be viewed in source system Missing Attachment - attachment storage system not supported [id number] Can be viewed in source system Missing Attachment - attachment storage system not supported [id number] Can be viewed in source system Missing Attachment - attachment storage system not supported [id number] Can be viewed in source system Missing Attachment - attachment storage system not supported [id number] Can be viewed in source system Main OR PACU I Recordon 06-07 Main OR PACU I Record PACU Phase I Docum ent Type FT Summary Primary Physician: Shaun Goode MD Finalized Date/Time: 07/02/23 10:08:53 Pt. Name: MARLEN IVELISSE Davidson./Sex: 1950 Female Med Rec #: [id number] Physician: Shaun Goode MD Financial #: [id number] Pt. Type: O Room/Bed: / Admit/Disch: 07/02/23 [...] Signed By: Elma Vanessa I 07/02/23 10:08 Normal [facility] Main OR Preoperative Recordo n 07-02-2023 Main OR Preoperative Record Holding Area Document Type FT Summary Primary Physician: Shaun Goode MD Finalized Date/Time: 07/02/23 08:43:45 Pt. Name: IVELISSE GEE/Sex: 1950 Female Med Rec #: [id number] Physician: Shaun Goode MD Financial #: [id number] Pt. Type: O Room/Bed: / Admit/Disch: 07/02/23 [...] By: Alex Calhoun RN 07/02/23 08:43 Normal [facility] Monitor Recordon 07-02-2023 Monitor Record [id number]#1.00TI FF Normal [facility] Monitor Record [id number]#1.00TI FF Normal [facility] AFPon 06-27-2023 AFP.tumor marker [Mass/Vol] 3.5 ng/mL Invalid Interpretation Code 0.0-9.2 [facility] Comment on above: Result Comment: [employer] Electrochemiluminescence Immunoassay (ECLIA) Values obtained with different assay methods or kits cannot be used interchangeably. Results cannot be interpreted as absolute evidence of the presence or absence of malignant disease. This test is not interpretable in females. Performed at: [address] [id number] PhD Isidoro Pak Performed By: #### 2 [id number] ####[facility] [address] [place] [address] Consent for Procedure/Surger yon 06-27-2023 Consent for Procedure/Surgery [id number]#1.00TIF F Normal [facility] Ambulatory Visit Summaryon 0 06-26-2023 Ambulatory Visit Summary IEVLISSE GEE :1950 Visit Date:06/26/2023 Ambulatory Visit Instructions [...] you for choosing us for your care. [facility] Consent for Treatmenton 06-07 Consent for Treatment [id number]#1.00TIF F Normal [facility] Gastroenterology Office/Clin ic Noteon 06-26-2023 Gastroenterology Office/Clinic [...] 1-2 bowel movements every day by using tpoc-asl-mnxiqxw laxatives such as senna Advised to massage [...] influenza virus vaccine, inactivated 04/09/2016 Recorded Normal [facility] Comment on above: Result Comment: Elec tronically Signed By: Rupa CERRATO, Shaun Resendiz.elyse\\Date and Time Signed: 06/26/23 13:09 EDT Physician Orderon 06-24-2023 Physician Order [id number]#1.00TIFF Normal [facility] Heart and Vascular Office/Cl inic Noteon 06-23-2023 [...] appointment on 06/26/2023. She went back to [facility], although it made her feel unwell. [...] with voice recognition artificial intelligence software, specifically [employer], [employer] and or [employer]. Substitutions may have occurred due to the inherent limitations of voice recognition and artificial intelligence software. ATTESTATION: Documentation services were performed after patient or guardian consented to allow [employer] to record this visit. SAMUEL bombsight specialist and provider reviewed before signing. SAMUEL: Renee Marisabel Byrd Follow-up No qualifying data available Problem [...] History Tobacco - Denies Tobacco Use, 06/21/2023 [facility] Comment on above: Result Comment: Elec tronically Signed By: Karmen CERRATO, Deonte Roth\\.br\\Date and Time Signed: 06/23/23 11:02 EDT\\.br\\Electronically Co-Signed By: Renee Byrd\\.br\\Date and Time Co-Signed: 06/21/23 19:23 EDT Ambulatory [...] EDT With: Rupa CERRATO, Shaun Xiao Where: [facility] Digestive Health [facility] Consent for Treatmenton 06-06 Consent for Treatment [id number]#1.00TIF F [facility] Physician Referralon 024 Physician Referral [id number]#1.00TIF F [facility] Referrals Officeon 4 Referrals Office [id number]#1.00TIF F [facility] Physician Orderon 05-30-2023 Physician Order [id number]#1.00TIF F Normal [facility] Referrals Officeon Referrals Office [id number]#1.00TIF F Normal [facility] CREATININEon 08-08-2022 Creatinine [Mass/Vol] 0.94 mg/dL Normal 0.55-1.[address] [facility] Comment on above: Performed By: #### L IPA, HSTROPN, TSH, CMP #### [facility] [address] [address] [address] Juan Zamarripa EGFR-AF PARAGUAYAN >60 Normal >=60 [facility] Comment on above: Performed By: #### L IPA, HSTROPN, TSH, CMP #### [facility] [address] [address] [address] Juan Zamarripa EGFR-NON AF PARAGUAYAN 58 mL/min/1.73m2 Critically low >=[address] [facility] Comment on above: Performed By: #### L IPA, HSTROPN, TSH, CMP #### [facility] [address] ABD/PELVIS WO CONon [...] by: CARO SIBLEY Date: 2022-08-08 13:[address] [facility] Urine Cultureon 07-24-2022 Bacteria identified Cx Nom (U) No Growth 2 Days PERFORMED BY: [place] [address] PATHOLOGIST SERVICE LINE LAYER JAIMIE RIVERA M.D. Normal [facility] Comment on above: Performed By: #### C UU #### [address] PNEUMOCOCCAL IM (23 SEROTYPE )on 07-07-2022 Pneumo Ab Type 1* 2.8 ug/mL Normal >1.3 [facility] Comment on above: Performed By: #### L IPA, HSTROPN, TSH, CMP #### [facility] [address] [address] [address] Juan Zamarripa Pneumo Ab Type 12 (12F)* 0.2 ug/mL Critically low >1.3 [facility] Comment on above: Performed By: #### L IPA, HSTROPN, TSH, CMP #### [facility] [address] [address] [address] Juan Zamarripa Pneumo Ab Type 14* >18.7 Normal >1.3 [facility] Comment on above: Performed By: #### L IPA, HSTROPN, TSH, CMP #### [facility] [address] [address] [address] Juan Zamarripa Pneumo Ab Type 17 (17F)* >20.2 Normal >1.3 [facility] Comment on above: Performed By: #### L IPA, HSTROPN, TSH, CMP #### [facility] [address] [place] [address] Dr. Juan Zamarripa Pneumo Ab Type 19 (19F)* 21.7 ug/mL Normal >1.3 [facility] Comment on above: Performed By: #### L IPA, HSTROPN, TSH, CMP #### [facility] [address] [place] [address] Dr. Juan Zamarripa Pneumo Ab Type 2* 5.7 ug/mL Normal >1.3 [facility] Comment on above: Performed By: #### L IPA, HSTROPN, TSH, CMP #### [facility] [address] [place] [address] Dr. Juan Zamarripa Pneumo Ab Type 20* 4.0 ug/mL Normal >1.3 [facility] Comment on above: Performed By: #### L IPA, HSTROPN, TSH, CMP #### [facility] [address] [place] [address] Dr. Juan Zamarripa Pneumo Ab Type 22 (22F)* 1.5 ug/mL Normal >1.3 [facility] Comment on above: Performed By: #### L IPA, HSTROPN, TSH, CMP #### [facility] [address] [place] [address] Dr. Juan Zamarripa Pneumo Ab Type 23 (23F)* 3.4 ug/mL Normal >1.3 [facility] Comment on above: Performed By: #### L IPA, HSTROPN, TSH, CMP #### [facility] [address] [place] [address] Dr. Juan Zamarripa Pneumo Ab Type 26 (6B)* 3.0 ug/mL Normal >1.3 [facility] Comment on above: Performed By: #### L IPA, HSTROPN, TSH, CMP #### [facility] [address] [address] [address] Juan Zamarripa Pneumo Ab Type 3* 1.6 ug/mL Normal >1.3 [facility] Comment on above: Performed By: #### L IPA, HSTROPN, TSH, CMP #### [facility] [address] [place] [address] Dr. Juan Zamarripa Pneumo Ab Type 34 (10A)* 4.4 ug/mL Normal >1.3 [facility] Comment on above: Performed By: #### L IPA, HSTROPN, TSH, CMP #### [facility] [address] [place] [address] Dr. Juan Zamarripa Pneumo Ab Type 4* 1.6 ug/mL Normal >1.3 [facility] Comment on above: Performed By: #### L IPA, HSTROPN, TSH, CMP #### [facility] [address] [place] [address] Dr. Juan Zamarripa Pneumo Ab Type 43 (11A)* >7.6 Normal >1.3 The [facility] Comment on above: Performed By: #### L IPA, HSTROPN, TSH, CMP #### [facility] [address] [place] [address] Dr. Juan Zamarripa Pneumo Ab Type 5* 2.0 ug/mL Normal >1.3 [facility] Comment on above: Performed By: #### L IPA, HSTROPN, TSH, CMP #### [facility] [address] [place] [address] Dr. Juan Zamarripa Pneumo Ab Type 51 (7F)* 0.9 ug/mL Critically low >1.3 The [facility] Comment on above: Performed By: #### L IPA, HSTROPN, TSH, CMP #### [facility] [address] [place] [address] Dr. Juan Zamarripa Pneumo Ab Type 54 (15B)* >22.0 Normal >1.3 The [facility] Comment on above: Performed By: #### L IPA, HSTROPN, TSH, CMP #### [facility] [address] [place] [address] Dr. Juan Zamarripa Pneumo Ab Type 56 (18C)* >8.1 Normal >1.[address] [facility] Comment on above: Performed By: #### L IPA, HSTROPN, TSH, CMP #### [facility] [address] [place] [address] Dr. Juan Zamarripa Pneumo Ab Type 57 (19A)* 2.5 ug/mL Normal >1.[address] [facility] Comment on above: Performed By: #### L IPA, HSTROPN, TSH, CMP #### [facility] [address] [place] [address] Dr. Juan Zamarripa Pneumo Ab Type 68 (9V)* >13.4 Normal >1.3 [facility] Comment on above: Performed By: #### L IPA, HSTROPN, TSH, CMP #### [facility] [address] [place] [address] Dr. Juan Zamarripa Pneumo Ab Type 70 (33F)* >10.1 Normal >1.[address] [facility] Comment on above: Result Comment: *Thi s test was developed and its performance characteristics determined by [facility]. It has not been cleared or approved by the [place] Food and Drug Administration. Performed By: #### L IPA, HSTROPN, TSH, CMP #### [facility] [address] [place] [address] Dr. Juan Zamarripa Pneumo Ab Type 8* 1.2 ug/mL Critically low >1.[address] [facility] Comment on above: Performed By: #### L IPA, HSTROPN, TSH, CMP #### [facility] [address] [place] [address] Dr. Juan Zamarripa Pneumo Ab Type 9 (9N)* 1.7 ug/mL Normal >1.3 Th e [facility] Comment on above: Performed By: #### L IPA, HSTROPN, TSH, CMP #### [facility] [address] [place] [address] Dr. Juan Zamarripa BORDETELLA PERTUSSIS AB IGGo n 07-05-2022 B pertussis IgG Ab 1.53 index Invalid Interpretation Code 0.00-0.[address] [facility] Comment on above: Result Comment: Clie nt Requested Flag Negative <0.95 Equivocal 0.95 - 1.04 Positive >1.04 Performed By: #### A 1C #### [facility] [address] [place] [address] Dr. Juan Zamarripa TETANUS DIPTHERIA AB PROFILE on 07-05-2022 Diphtheria Antitoxoid Ab 0.29 IU/mL Normal <0.[address] [facility] Comment on above: Result Comment: Inte rpretation: Non-Protective <0.10 Protective >=0.10 . For research use only. Performed By: #### C BC #### [facility] [address] [place] [address] Dr. Juan Zamarripa Tetanus Antitoxoid IgG Ab 0.94 IU/mL Normal <0.[address] [facility] Comment on above: Result Comment: Inte rpretation: Non-Protective <0.10 Protective >=0.10 Results for this test are for research purposes only by the assay's director public. The performance characteristics of this product have not been established. Results should not be used as a diagnostic procedure without confirmation of the diagnosis by another medically established diagnostic product or procedure. Performed By: #### C BC #### [facility] [address] [place] [address] Dr. Juan Zamarripa HAEMOPHILUS INFLUENZA B IGGo n 07-04-2022 Haemophilus influenzae B IgG 0.21 ug/mL Normal [facility] Comment on above: Result Comment: NOTE : An anti-Hib level of 0.15 ug/mL is generally accepted as the minimum level for protection. Optimal protection post-vaccination requires a level greater than 1.00 ug/mL. Performed By: #### L IPA, HSTROPN, TSH, CMP #### [facility] [address] [place] [address] Dr. Juan Zamarripa IMMUNOGLOBULINS IGA/IGM/IGG QUANTITATIVEon 07-03-2022 Immunoglobulin A, Qn, Serum 219 mg/dL Normal 64-[address] [facility] Comment on above: Performed By: #### L IPA, HSTROPN, TSH, CMP #### [facility] [address] [address] [address] Juan Zamarripa Immunoglobulin G, Qn, Serum 1365 mg/dL Normal 586-[address] [facility] Comment on above: Performed By: #### L IPA, HSTROPN, TSH, CMP #### [facility] [address] [address] [address] Juan Zamarripa Immunoglobulin M, Qn, Serum 66 mg/dL Normal 26-[address] [facility] Comment on above: Performed By: #### L IPA, HSTROPN, TSH, CMP #### [facility] [address] [address] [address] Juan Zamarripa LYMPHOCYTE ACTIVITY PROFILEo n 07-03-2022 %CD3+CD25+Lymphs 20.3 % Normal 4.9-25.9 [facility] Comment on above: Result Comment: This test was developed and its performance characteristics determined by [facility]. It has not been cleared or approved by the Food and Drug Administration. Performed at: BN Performed By: #### L YMACT #### [facility] [address] [place] [address] Dr. Juan Zamarripa %CD8+CD57+Lymphs 16.6 % Critically high 0.0-11.[address] [facility] Comment on above: Result Comment: This test was developed and its performance characteristics determined by [facility]. It has not been cleared or approved by the Food and Drug Administration. Performed at: BN Performed By: #### L YMACT #### [facility] [address] [place] [address] Dr. Juan Zamarripa Abs CD 4 helper 986 /uL Normal 359-1519 [facility] Comment on above: Result Comment: Perf ormed at: CB Performed By: #### L YMACT #### [facility] [address] [place] [address] Dr. Juan Zamarripa Abs. CD 8 Supp 898 /uL Critically high 109-897 [facility] Comment on above: Result Comment: Perf ormed at: CB Performed By: #### L YMACT #### [facility] [address] [place] [address] Dr. Juan Zamarripa Abs.CD3+CD25+Lymphs 447 /uL Normal 79-535 [facility] Comment on above: Result Comment: This test was developed and its performance characteristics determined by [facility]. It has not been cleared or approved by the Food and Drug Administration. Performed at: CB Performed By: #### L YMACT #### [facility] [address] [address] [address] Juan Zamarripa Abs.CD8+CD57+Lymphs 365 /uL Critically high 0-[address] [facility] Comment on above: Result Comment: This test was developed and its performance characteristics determined by [facility]. It has not been cleared or approved by the Food and Drug Administration. Performed at: CB Performed By: #### L YMACT #### [facility] [address] [place] [address] Dr. Juan Zamarripa Absolute CD 3 1918 /uL Normal [phone] [facility] Comment on above: Result Comment: Perf ormed at: CB Performed By: #### L YMACT #### [facility] [address] [place] [address] Dr. Juan Zamarripa Basophils (Bld) [#/Vol] 0.0 10*3/uL Normal 0.0-0.[address] [facility] Comment on above: Result Comment: Perf ormed at: CB Performed By: #### L YMACT #### [facility] [address] [place] [address] Dr. Juan Zamarripa Basophils/100 WBC (Bld) 1 % Normal Not Estab. T [facility] Comment on above: Result Comment: Perf ormed at: CB Performed By: #### L YMACT #### [facility] [address] [place] [address] Dr. Juan Zamarripa CD4/CD8 Ratio 1.10 Normal 0.92-3.72 [facility] Comment on above: Result Comment: Perf ormed at: BN Performed By: #### L YMACT #### [facility] [address] [place] [address] Dr. Juan Zamarripa Eosinophils (Bld) [#/Vol] 0.1 10*3/uL Normal 0.0-0.[address] [facility] Comment on above: Result Comment: Perf ormed at: CB Performed By: #### L YMACT #### [facility] [address] [place] [address] Dr. Juan Zamarripa Eosinophils/100 WBC (Bld) 1 % Normal Not Estab. The [facility] Comment on above: Result Comment: Perf ormed at: CB Performed By: #### L YMACT #### [facility] [address] [place] [address] Dr. Juan Zamarripa Erythrocyte distribution width (RBC) [Ratio] 12.6 % Normal 11.7-15.[address] [facility] Comment on above: Result Comment: Perf ormed at: CB Performed By: #### L YMACT #### [facility] [address] [place] [address] Dr. Juan Zamarripa Hematocrit (Bld) [Volume fraction] 41.9 % Normal 34.0-46.[address] [facility] Comment on above: Result Comment: Perf ormed at: CB Performed By: #### L YMACT #### [facility] [address] [place] [address] Dr. Juan Zamarripa Hematology Comments Normal [facility] Comment on above: Result Comment: Perf ormed at: CB Performed By: #### L YMACT #### [facility] [address] [place] [address] Dr. Juan Zamarripa Hemoglobin (Bld) [Mass/Vol] 14.2 g/dL Normal 11.1-15.[address] [facility] Comment on above: Result Comment: Perf ormed at: CB Performed By: #### L YMACT #### [facility] [address] [place] [address] Dr. Juan Zamarripa Immature Cells Normal [facility] Comment on above: Result Comment: Perf ormed at: CB Performed By: #### L YMACT #### [facility] [address] [place] [address] Dr. Juan Zamarripa Immature Grans (Abs) 0.0 x10E3/uL Normal 0.0-0.1 Th [facility] Comment on above: Result Comment: Perf ormed at: CB Performed By: #### L YMACT #### [facility] [address] [place] [address] Dr. Juan Zamarripa Immature granulocytes/100 WBC (Bld) 0 % Normal Not Estab. The [facility] Comment on above: Result Comment: Perf ormed at: CB Performed By: #### L YMACT #### [facility] [address] [place] [address] Dr. Juan Zamarripa Lymphocytes (Bld) [#/Vol] 2.2 10*3/uL Normal 0.7-3.1 The [facility] Comment on above: Result Comment: Perf ormed at: CB Performed By: #### L YMACT #### [facility] [address] [place] [address] Dr. Juan Zamarripa Lymphocytes/100 WBC (Bld) 87.2 % Critically high 57.5-86.2 The [facility] Comment on above: Result Comment: Perf ormed at: BN Performed By: #### L YMACT #### [facility] [address] [place] [address] Dr. Juan Zamarripa Lymphocytes/100 WBC (Bld) 44.8 % Normal 30.8-58.5 The [facility] Comment on above: Result Comment: Perf ormed at: BN Performed By: #### L YMACT #### [facility] [address] [place] [address] Dr. Juan Zamarripa Lymphocytes/100 WBC (Bld) 40.8 % Critically high 12.0-35.5 The [facility] Comment on above: Result Comment: Perf ormed at: BN Performed By: #### L YMACT #### [facility] [address] [place] [address] Dr. Juan Zamarripa Lymphocytes/100 WBC (Bld) 34 % Normal Not Estab. The [facility] Comment on above: Result Comment: Perf ormed at: CB Performed By: #### L YMACT #### [facility] [address] [place] [address] Dr. Juan Zamarripa MCH (RBC) [Entitic mass] 31.3 pg Normal 26.6-33.0 The [facility] Comment on above: Result Comment: Perf ormed at: CB Performed By: #### L YMACT #### [facility] [address] [place] [address] Dr. Juan Zamarripa MCHC (RBC) [Mass/Vol] 33.9 g/dL Normal 31.5-35.[address] [facility] Comment on above: Result Comment: Perf ormed at: CB Performed By: #### L YMACT #### [facility] [address] [place] [address] Dr. Juan Zamarripa MCV (RBC) [Entitic vol] 92 fL Normal 79-97 [facility] Comment on above: Result Comment: Perf ormed at: CB Performed By: #### L YMACT #### [facility] [address] [place] [address] Dr. Juan Zamarripa Monocytes (Bld) [#/Vol] 0.3 10*3/uL Normal 0.1-0.[address] [facility] Comment on above: Result Comment: Perf ormed at: CB Performed By: #### L YMACT #### [facility] [address] [place] [address] Dr. Juan Zamarripa Monocytes/100 WBC (Bld) 4 % Normal Not Estab. [facility] Comment on above: Result Comment: Perf ormed at: CB Performed By: #### L YMACT #### [facility] [address] [place] [address] Dr. Juan Zamarripa Neutrophils Absolute 4.0 x10E3/uL Normal 1.4-7.0 [facility] Comment on above: Result Comment: Perf ormed at: CB Performed By: #### L YMACT #### [facility] [address] [place] [address] Dr. Juan Zamarripa Neutrophils/100 WBC (Bld) 60 % Normal Not Estab. The [facility] Comment on above: Result Comment: Perf ormed at: CB Performed By: #### L YMACT #### [facility] [address] [place] [address] Dr. Juan Zamarripa NRBC Normal [facility] Comment on above: Result Comment: Perf ormed at: CB Performed By: #### L YMACT #### [facility] [address] [address] [address] Juan Zamarripa Platelets (Bld) [#/Vol] 164 10*3/uL Normal 150-[address] [facility] Comment on above: Result Comment: Perf ormed at: CB Performed By: #### L YMACT #### [facility] [address] [address] [address] Juan Zamarripa RBC (Bld) [#/Vol] 4.54 10*6/uL Normal 3.77-5.28 [facility] Comment on above: Result Comment: Perf ormed at: CB Performed By: #### L YMACT #### [facility] [address] [address] [address] Juan Zamarripa WBC (Bld) [#/Vol] 6.6 10*3/uL Normal 3.4-10.8 [facility] Comment on above: Result Comment: Perf ormed at: CB Performed By: #### L YMACT #### [facility] [address] [address] [address] Juan Zamarripa PROF 14(COMP METB)on 023 Albumin [Mass/Vol] 4.1 g/dL Normal 3.4-5.0 [facility] Comment on above: Performed By: #### L IPA, HSTROPN, TSH, CMP #### [facility] [address] [address] [address] Juan Zamarripa Albumin/Globulin [Mass ratio] 1.1 {ratio} Normal [facility] Comment on above: Performed By: #### L IPA, HSTROPN, TSH, CMP #### [facility] [address] [address] [address] Juan Zamarripa ALP [Catalytic activity/Vol] 107 U/L Normal 46-[address] [facility] Comment on above: Performed By: #### L IPA, HSTROPN, TSH, CMP #### [facility] [address] [address] [address] Juan Zamarripa ALT [Catalytic activity/Vol] 69 U/L Critically high 14-[address] [facility] Comment on above: Performed By: #### L IPA, HSTROPN, TSH, CMP #### [facility] [address] [address] [address] Juan Zamarripa Anion gap [Moles/Vol] 14.0 mmol/L Normal Th e [facility] Comment on above: Performed By: #### L IPA, HSTROPN, TSH, CMP #### [facility] [address] [place] [address] Dr. Juan Zamarripa AST [Catalytic activity/Vol] 31 U/L Normal 15-[address] [facility] Comment on above: Performed By: #### L IPA, HSTROPN, TSH, CMP #### [facility] [address] [place] [address] Dr. Juan Zamarripa Bilirubin [Mass/Vol] 0.8 mg/dL Normal 0.2-1.[address] [facility] Comment on above: Performed By: #### L IPA, HSTROPN, TSH, CMP #### [facility] [address] [place] [address] Dr. Juan Zamarripa Calcium [Mass/Vol] 9.1 mg/dL Normal 8.5-10.1 [facility] Comment on above: Performed By: #### L IPA, HSTROPN, TSH, CMP #### [facility] [address] [place] [address] Dr. Juan Zamarripa Chloride [Moles/Vol] 104 mmol/L Normal 98-[address] [facility] Comment on above: Performed By: #### L IPA, HSTROPN, TSH, CMP #### [facility] [address] [place] [address] Dr. Juan Zamarripa CO2 [Moles/Vol] 28.1 mmol/L Normal 21.0-32.0 [facility] Comment on above: Performed By: #### L IPA, HSTROPN, TSH, CMP #### [facility] [address] [place] [address] Dr. Juan Zamarripa Creatinine [Mass/Vol] 0.77 mg/dL Normal 0.55-1.[address] [facility] Comment on above: Performed By: #### L IPA, HSTROPN, TSH, CMP #### [facility] [address] [address] [address] Juan Zamarripa EGFR-AF PARAGUAYAN >60 Normal >=60 [facility] Comment on above: Performed By: #### L IPA, HSTROPN, TSH, CMP #### [facility] [address] [address] [address] Juan Zamarripa EGFR-NON AF PARAGUAYAN >60 Normal >=[address] [facility] Comment on above: Performed By: #### L IPA, HSTROPN, TSH, CMP #### [facility] [address] [address] [address] Juan Zamarripa Globulin (S) [Mass/Vol] 3.9 g/dL Normal [facility] Comment on above: Performed By: #### L IPA, HSTROPN, TSH, CMP #### [facility] [address] [address] [address] Juan Zamarripa Glucose [Mass/Vol] 186 mg/dL Critically high 74-106 [facility] Comment on above: Performed By: #### L IPA, HSTROPN, TSH, CMP #### [facility] [address] [address] [address] Juan Zamarripa Potassium [Moles/Vol] 4.1 mmol/L Normal 3.5-5.[address] [facility] Comment on above: Performed By: #### L IPA, HSTROPN, TSH, CMP #### [facility] [address] [address] [address] Juan Zamarripa Protein [Mass/Vol] 8.0 g/dL Normal 6.4-8.2 [facility] Comment on above: Performed By: #### L IPA, HSTROPN, TSH, CMP #### [facility] [address] [address] [address] Juan Zamarripa Sodium [Moles/Vol] 142 mmol/L Normal 136-145 [facility] Comment on above: Performed By: #### L IPA, HSTROPN, TSH, CMP #### [facility] [address] [address] [address] Juan Zamarripa Urea nitrogen [Mass/Vol] 9.0 mg/dL Normal 7.0-18.[address] [facility] Comment on above: Performed By: #### L IPA, HSTROPN, TSH, CMP #### [facility] [address] [address] [address] Juan Zamarripa Urea nitrogen/Creatinine [Mass ratio] 11.7 mg/mg Normal The [facility] Comment on above: Performed By: #### L IPA, HSTROPN, TSH, CMP #### [facility] [address] [place] [address] Dr. Juan Zamarripa CULTURE URINEon 06-12-2022 CULTURE URINE Culture Observations : LIGHT GROWTH OF MIXED GENITAL ALDA. NO POTENTIAL PATHOGENS SEEN. Normal [facility] Comment on above: Performed By: #### U RCX #### [facility] [address] [place] [address] Dr. Juan Zamarripa UA RANDOMon 06-12-2022 Glucose Ql (U) 100 mg/dl Abnormal NEGATIVE [facility] Comment on above: Performed By: #### U A #### [facility] [address] [place] [address] Dr. Juan Zamarripa LEUKOCYTES SMALL Abnormal NEGATIVE [facility] Comment on above: Performed By: #### U A #### [facility] [address] [place] [address] Dr. Juan Zamarripa SPEC GRAVITY 1.015 Normal 1.005-<=1. 025 [facility] Comment on above: Performed By: #### U A #### [facility] [address] [place] [address] Dr. Juan Zamarripa UA PROTEIN Negative Normal NEGATIVE/ TRACE The [facility] Comment on above: Performed By: #### U A #### [facility] [address] [place] [address] Dr. Juan Zamarripa Urobilinogen Qn (U) 0.2 {Amee'U}/dL Normal 0.2 - 1. 0 [facility] [facility] Comment on above: Performed By: #### U A #### [facility] [address] [address] [address] Juan Zamarripa Urinalysison 06-12-2022 Glucose Ql (U) 100 mg/dl Abnormal NEGATIVE mg/dl [employer] Other Urinalysis see note [employer] Other Urinalysis 1.015 1.005-<=1. 025 [employer] Other Urinalysis Negative NEGATIVE/ TRACE mg/dl [employer] Other Urinalysis 0.2 EU/dl 0.2 - 1.0 EU/dl [employer] Other Urinalysis SMALL Abnormal NEGATIVE [employer] Other Bilirubin Ql (U) Negative Normal NEGATIVE [email or web address] Other Comment on above: Performed By: #### U A #### [facility] [address] [place] [address] Dr. Juan Zamarripa Clarity (U) CLEAR Normal CLEAR [employer] Other Comment on above: Performed By: #### U A #### [facility] [address] [place] [address] Dr. Juan Zamarripa Color (U) LT. YELLOW Normal YELLOW [employer] Other Comment on above: Performed By: #### U A #### [facility] [address] [address] [address] Juan Zamarripa Hemoglobin Ql (U) Negative Normal NEGATIVE [employer] Other Comment on above: Performed By: #### U A #### [facility] [address] [address] [address] Juan Zamarripa Ketones Ql (U) Negative Normal NEGATIVE [employer] Other Comment on above: Performed By: #### U A #### [facility] [address] [place] [address] Dr. Juan Zamarripa Nitrite Ql (U) Negative Normal NEGATIVE [employer] Other Comment on above: Performed By: #### U A #### [facility] [address] [place] [address] Dr. Juan Zamarripa pH (U) 6.0 [pH] Normal 5-9 [employer] Other Comment on above: Performed By: #### U A #### [facility] [address] [place] [address] Dr. Juan Zamarripa CULTURE URINEon 04-25-2022 CULTURE [...] S F Nitrofurantoin <=16 S F Normal [facility] Comment on above: Performed By: #### A 1C #### [facility] [address] [place] [address] Dr. Juan Zamarripa LT by IFAon 04-24-2022 Antinuclear Antibodies, IFA Positive Abnormal [facility] Comment on above: Result Comment: Nega tive <1:80 Borderline 1:80 Positive >1:80 Performed By: #### L IPA, HSTROPN, TSH, CMP #### [facility] [address] [place] [address] Dr. Juan Zamarripa Centriole Pattern Normal [facility] Comment on above: Performed By: #### L IPA, HSTROPN, TSH, CMP #### [facility] [address] [place] [address] Dr. Juan Zamarripa Centromere Pattern Normal [facility] [place] Comment on above: Performed By: #### L IPA, HSTROPN, TSH, CMP #### [facility] [address] [place] [address] Dr. Juan Zamarripa Homogeneous Pattern 1:160 Critically high The [facility] Comment on above: Result Comment: ICAP nomenclature: AC-1 Performed By: #### L IPA, HSTROPN, TSH, CMP #### [facility] [address] [address] [address] Juan Zamarripa Midbody Pattern Normal [facility] Comment on above: Performed By: #### L IPA, HSTROPN, TSH, CMP #### [facility] [address] [place], [place] [address] Dr. Juan Zamarripa Note: Comment Normal [facility] Comment on above: Result Comment: For more [...] titers Nucleosomes, Histones Drug-induced SLE Speckled Sm, JET PILOT, SCL-70, SLE,MCTD,PSS (diffuse form), SS-A/SS-B Sjogrens Nucleolar SCL-70, PM-1/SCL High titers Scleroderma, PM/DM Centromere Centromere PSS (limited form) w/Crest syndrome variable Nuclear Dot [id number] Primary Biliary Cirrhosis Nuclear GP210, Primary Biliary Cirrhosis Membrane trinity A,B,C Performed By: #### L IPA, HSTROPN, TSH, CMP #### [facility] [address] [place] [address] Dr. Juan Zamarripa Nuclear Dot Pattern Normal [facility] Comment on above: Performed By: #### L IPA, HSTROPN, TSH, CMP #### [facility] [address] [place] [address] Dr. Juan Zamarripa Nuclear Membrane Pattern Normal The [facility] Comment on above: Performed By: #### L IPA, HSTROPN, TSH, CMP #### [facility] [address] [address] [address] Juan Zamarripa Nucleolar Pattern Normal [facility] Comment on above: Performed By: #### L IPA, HSTROPN, TSH, CMP #### [facility] [address] [address] [address] Juan Zamarripa PCNA Pattern Normal The [facility] Comment on above: Performed By: #### L IPA, HSTROPN, TSH, CMP #### [facility] [address] [place] [address] Dr. Juan Zamarripa Speckled Pattern 1:160 Critically high The [facility] Comment on above: Result Comment: ICAP nomenclature: AC-2,4,5,29 Performed By: #### L IPA, HSTROPN, TSH, CMP #### [facility] [address] [place] [address] Dr. Juan Zamarripa Spindle Apparatus Pattern Normal The [facility] Comment on above: Performed By: #### L IPA, HSTROPN, TSH, CMP #### [facility] [address] [place] [address] Dr. Juan Zamarripa RHEUMATOID FACTORon 04-24-19 RA Latex Turbid. <10.0 Normal <14.0 [facility] Comment on above: Performed By: #### L IPA, HSTROPN, TSH, CMP #### [facility] [address] [place] [address] Dr. Juan Zamarripa CBC AUTO DIFFon 04-23-2022 BASO # 0.0 103/ul Normal 0.0-0.[address] [facility] Comment on above: Performed By: #### C BC #### [facility] [address] [place] [address] Dr. Juan Zamarripa Basophils/100 WBC (Bld) 0.4 % Normal 0.2-2.0 [facility] Comment on above: Performed By: #### C BC #### [facility] [address] [place] [address] Dr. Juan Zamarripa EO # 0.1 103/ul Normal 0.0-0.[address] [facility] Comment on above: Performed By: #### C BC #### [facility] [address] [place] [address] Dr. Juan Zamarripa Eosinophils/100 WBC (Bld) 1.8 % Normal 0.9-7.[address] [facility] Comment on above: Performed By: #### C BC #### [facility] [address] [place] [address] Dr. Juan Zamarripa Erythrocyte distribution width (RBC) [Ratio] 12.6 % Normal 11.0-15.[address] [facility] Comment on above: Performed By: #### C BC #### [facility] [address] [place] [address] Dr. Juan Zamarripa Hematocrit (Bld) [Volume fraction] 36.9 % Normal 36.0-48.[address] [facility] Comment on above: Performed By: #### C BC #### [facility] [address] [place] [address] Dr. Juan Zamarripa Hemoglobin (Bld) [Mass/Vol] 12.6 g/dL Normal 12.0-16.[address] [facility] Comment on above: Performed By: #### C BC #### [facility] [address] [place] [address] Dr. Juan Zamarripa IG # 0.02 10e3/ul Normal 0.00-0.[address] [facility] Comment on above: Performed By: #### C BC #### [facility] [address] [place] [address] Dr. Juan Zamarripa IG % 0.3 % Normal 0.0-0.[address] [facility] Comment on above: Performed By: #### C BC #### [facility] [address] [place] [address] Dr. Juan Zamarripa LYMPH # 3.3 103/ul Normal 1.2-3.[address] [facility] Comment on above: Performed By: #### C BC #### [facility] [address] [place] [address] Dr. Juan Zamarripa Lymphocytes/100 WBC (Bld) 42.9 % Normal 20.5-60.[address] [facility] Comment on above: Performed By: #### C BC #### [facility] [address] [place] [address] Dr. Juan Zamarripa MANUAL DIFF REQ NO Normal [facility] Comment on above: Performed By: #### C BC #### [facility] [address] [place] [address] Dr. Juan Zamarripa MCH (RBC) [Entitic mass] 31.2 pg Normal 26.7-34.[address] [facility] Comment on above: Performed By: #### C BC #### [facility] [address] [address] [address] Juan Zamarripa MCHC (RBC) [Mass/Vol] 34.1 g/dL Normal 29.9-35.[address] [facility] Comment on above: Performed By: #### C BC #### [facility] [address] [address] [address] Juan Zamarripa MCV (RBC) [Entitic vol] 91.3 fL Normal 81.0-99.0 [facility] Comment on above: Performed By: #### C BC #### [facility] [address] [address] [address] Juan Zamarripa MONO # 0.3 103/ul Normal 0.3-0.[address] [facility] Comment on above: Performed By: #### C BC #### [facility] [address] [place] [address] Dr. Juan Zamarripa Monocytes/100 WBC (Bld) 4.4 % Normal 1.7-12.0 [facility] Comment on above: Performed By: #### C BC #### [facility] [address] [place] [address] Dr. Juan Zamarripa NEUT # 3.9 103/ul Normal 1.4-6.[address] [facility] Comment on above: Performed By: #### C BC #### [facility] [address] [place] [address] Dr. Juan Zamarripa Neutrophils/100 WBC (Bld) 50.2 % Normal 43.0-75.[address] [facility] Comment on above: Performed By: #### C BC #### [facility] [address] [address] [address] Juan Zamarripa Platelet mean volume (Bld) [Entitic vol] 9.0 fL Critically low 9.5-13.[address] [facility] Comment on above: Performed By: #### C BC #### [facility] [address] [address] [address] Juan Zamarripa PLT 158 103/ul Normal 150-[address] [facility] Comment on above: Performed By: #### C BC #### [facility] [address] [address] [address] Juan Zamarripa RBC 4.04 106/ul Critically low 4.20-5.40 [facility] Comment on above: Performed By: #### C BC #### [facility] [address] [place] [address] Dr. Juan Zamarripa WBC 7.8 103/ul Normal 4.0-11.[address] [facility] Comment on above: Performed By: #### C BC #### [facility] [address] [address] [address] Juan Zamarripa CULTURE BLOODon 04-23-2022 Microscopic examination of blood, culture Culture Observations: NO GROWTH AT 5 DAYS. Normal [facility] Comment on above: Performed By: #### A 1C #### [facility] [address] [place] [address] Dr. Juan Zamarripa PROF 14(COMP METB)on 023 Albumin [Mass/Vol] 4.0 g/dL Normal 3.4-5.0 [facility] Comment on above: Performed By: #### L IPA, HSTROPN, TSH, CMP #### [facility] [address] [place] [address] Dr. Juan Zamarripa Albumin/Globulin [Mass ratio] 1.0 {ratio} Normal [facility] Comment on above: Performed By: #### L IPA, HSTROPN, TSH, CMP #### [facility] [address] [place] [address] Dr. Juan Zamarripa ALP [Catalytic activity/Vol] 87 U/L Normal 46-[address] [facility] Comment on above: Performed By: #### L IPA, HSTROPN, TSH, CMP #### [facility] [address] [place] [address] Dr. Juan Zamarripa ALT [Catalytic activity/Vol] 78 U/L Critically high 14-[address] [facility] Comment on above: Performed By: #### L IPA, HSTROPN, TSH, CMP #### [facility] [address] [place] [address] Dr. Juan Zamarripa Anion gap [Moles/Vol] 12.4 mmol/L Normal Th e [facility] Comment on above: Performed By: #### L IPA, HSTROPN, TSH, CMP #### [facility] [address] [address] [address] Juan Zamarripa AST [Catalytic activity/Vol] 39 U/L Critically high 15-[address] [facility] Comment on above: Performed By: #### L IPA, HSTROPN, TSH, CMP #### [facility] [address] [address] [address] Juan Zamarripa Bilirubin [Mass/Vol] 0.7 mg/dL Normal 0.2-1.[address] [facility] Comment on above: Performed By: #### L IPA, HSTROPN, TSH, CMP #### [facility] [address] [place] [address] Dr. Juan Zamarripa Calcium [Mass/Vol] 9.6 mg/dL Normal 8.5-10.1 [facility] Comment on above: Performed By: #### L IPA, HSTROPN, TSH, CMP #### [facility] [address] [address] [address] Juan Zamarripa Chloride [Moles/Vol] 101 mmol/L Normal 98-[address] [facility] Comment on above: Performed By: #### L IPA, HSTROPN, TSH, CMP #### [facility] [address] [address] [address] Juan Zamarripa CO2 [Moles/Vol] 29.5 mmol/L Normal 21.0-32.0 [facility] Comment on above: Performed By: #### L IPA, HSTROPN, TSH, CMP #### [facility] [address] [place] [address] Dr. Juan Zamarripa Creatinine [Mass/Vol] 0.84 mg/dL Normal 0.55-1.[address] [facility] Comment on above: Performed By: #### L IPA, HSTROPN, TSH, CMP #### [facility] [address] [place] [address] Dr. Juan Zamarripa EGFR-AF PARAGUAYAN >60 Normal >=60 [facility] Comment on above: Performed By: #### L IPA, HSTROPN, TSH, CMP #### [facility] [address] [address] [address] Juan Zamarripa EGFR-NON AF PARAGUAYAN >60 Normal >=[address] [facility] Comment on above: Performed By: #### L IPA, HSTROPN, TSH, CMP #### [facility] [address] [address] [address] Juan Zamarripa Globulin (S) [Mass/Vol] 4.0 g/dL Normal [facility] Comment on above: Performed By: #### L IPA, HSTROPN, TSH, CMP #### [facility] [address] [place] [address] Dr. Juan Zamarripa Glucose [Mass/Vol] 208 mg/dL Critically high 74-106 [facility] Comment on above: Performed By: #### L IPA, HSTROPN, TSH, CMP #### [facility] [address] [place] [address] Dr. Juan Zamarripa Potassium [Moles/Vol] 3.9 mmol/L Normal 3.5-5.[address] [facility] Comment on above: Performed By: #### L IPA, HSTROPN, TSH, CMP #### [facility] [address] [address] [address] Juan Zamarripa Protein [Mass/Vol] 8.0 g/dL Normal 6.4-8.2 [facility] Comment on above: Performed By: #### L IPA, HSTROPN, TSH, CMP #### [facility] [address] [place] [address] Dr. Juan Zamarripa Sodium [Moles/Vol] 139 mmol/L Normal 136-145 [facility] Comment on above: Performed By: #### L IPA, HSTROPN, TSH, CMP #### [facility] [address] [place] [address] Dr. Juan Zamarripa Urea nitrogen [Mass/Vol] 15.0 mg/dL Normal 7.0-18.[address] [facility] Comment on above: Performed By: #### L IPA, HSTROPN, TSH, CMP #### [facility] [address] [place] [address] Dr. Juan Zamarripa Urea nitrogen/Creatinine [Mass ratio] 17.9 mg/mg Normal [facility] Comment on above: Performed By: #### L IPA, HSTROPN, TSH, CMP #### [facility] [address] [place] [address] Dr. Juan Zamarripa SED RATE WESTERGRENon 2022 SED RATE 26 mm/hr Normal <=[address] [facility] Comment on above: Performed By: #### L IPA, HSTROPN, TSH, CMP #### [facility] [address] [place] [address] Dr. Juan Zamarripa CULTURE BLOODon 04-18-2022 Microscopic [...] C Trimethoprim/Sulfamethox azole <=10 S C Normal [facility] Comment on above: Performed By: #### A 1C #### [facility] [address] [place] [address] Dr. Juan Zamarripa CBC AUTO DIFFon 04-13-2022 BASO # 0.1 103/ul Normal 0.0-0.[address] [facility] Comment on above: Performed By: #### C BC #### [facility] [address] [place] [address] Dr. Juan Zamarripa Basophils/100 WBC (Bld) 0.6 % Normal 0.2-2.0 [facility] Comment on above: Performed By: #### C BC #### [facility] [address] [place] [address] Dr. Juan Zamarripa EO # 0.2 103/ul Normal 0.0-0.[address] [facility] Comment on above: Performed By: #### C BC #### [facility] [address] [place] [address] Dr. Juan Zamarripa Eosinophils/100 WBC (Bld) 1.6 % Normal 0.9-7.[address] [facility] Comment on above: Performed By: #### C BC #### [facility] [address] [place] [address] Dr. Juan Zamarripa Erythrocyte distribution width (RBC) [Ratio] 12.6 % Normal 11.0-15.[address] [facility] Comment on above: Performed By: #### C BC #### [facility] [address] [place] [address] Dr. Juan Zamarripa Hematocrit (Bld) [Volume fraction] 36.1 % Normal 36.0-48.[address] [facility] Comment on above: Performed By: #### C BC #### [facility] [address] [place] [address] Dr. Juan Zamarripa Hemoglobin (Bld) [Mass/Vol] 12.5 g/dL Normal 12.0-16.[address] [facility] Comment on above: Performed By: #### C BC #### [facility] [address] [place] [address] Dr. Juan Zamarripa IG # 0.02 10e3/ul Normal 0.00-0.[address] [facility] Comment on above: Performed By: #### C BC #### [facility] [address] [place] [address] Dr. Juan Zamarripa IG % 0.2 % Normal 0.0-0.[address] [facility] Comment on above: Performed By: #### C BC #### [facility] [address] [place] [address] Dr. Juan Zamarripa LYMPH # 4.8 103/ul Critically high 1.2-3.8 [facility] Comment on above: Performed By: #### C BC #### [facility] [address] [place] [address] Dr. Juan Zamarripa Lymphocytes/100 WBC (Bld) 49.6 % Normal 20.5-60.[address] [facility] Comment on above: Performed By: #### C BC #### [facility] [address] [place] [address] Dr. Juan Zamarripa MANUAL DIFF REQ NO Normal [facility] Comment on above: Performed By: #### C BC #### [facility] [address] [place] [address] Dr. Juan Zamarripa MCH (RBC) [Entitic mass] 31.3 pg Normal 26.7-34.[address] [facility] Comment on above: Performed By: #### C BC #### [facility] [address] [place] [address] Dr. Juan Zamarripa MCHC (RBC) [Mass/Vol] 34.6 g/dL Normal 29.9-35.[address] [facility] Comment on above: Performed By: #### C BC #### [facility] [address] [place] [address] Dr. Juan Zamarripa MCV (RBC) [Entitic vol] 90.3 fL Normal 81.0-99.0 [facility] Comment on above: Performed By: #### C BC #### [facility] [address] [place] [address] Dr. Juan Zamarripa MONO # 0.5 103/ul Normal 0.3-0.[address] [facility] Comment on above: Performed By: #### C BC #### [facility] [address] [place] [address] Dr. Jaun Zamarripa Monocytes/100 WBC (Bld) 4.8 % Normal 1.7-12.0 [facility] Comment on above: Performed By: #### C BC #### [facility] [address] [place] [address] Dr. Juan Zamarripa NEUT # 4.2 103/ul Normal 1.4-6.[address] [facility] Comment on above: Performed By: #### C BC #### [facility] [address] [place] [address] Dr. Juan Zamarripa Neutrophils/100 WBC (Bld) 43.2 % Normal 43.0-75.[address] [facility] Comment on above: Performed By: #### C BC #### [facility] [address] [place] [address] Dr. Juan Zamarripa Platelet mean volume (Bld) [Entitic vol] 9.5 fL Normal 9.5-13.[address] [facility] Comment on above: Performed By: #### C BC #### [facility] [address] [place] [address] Dr. Juan Zamarripa PLT 149 103/ul Critically low 150-450 [facility] Comment on above: Performed By: #### C BC #### [facility] [address] [place] [address] Dr. Juan Zamarripa RBC 4.00 106/ul Critically low 4.20-5.40 [facility] [place] Comment on above: Performed By: #### C BC #### [facility] [address] [place] [address] Dr. Juan Zamarripa WBC 9.6 103/ul Normal 4.0-11.[address] [facility] Comment on above: Performed By: #### C BC #### [facility] [address] [place] [address] Dr. Juan Zamarripa PROF CHEM 8 (BAS METB)on Anion gap [Moles/Vol] 11.4 mmol/L Normal [facility] Comment on above: Performed By: #### L IPA, HSTROPN, TSH, CMP #### [facility] [address] [place] [address] Dr. Juan Zamarripa Calcium [Mass/Vol] 8.7 mg/dL Normal 8.5-10.1 [facility] Comment on above: Performed By: #### L IPA, HSTROPN, TSH, CMP #### [facility] [address] [address] [address] Juan Zamarripa Chloride [Moles/Vol] 102 mmol/L Normal 98-[address] [facility] Comment on above: Performed By: #### L IPA, HSTROPN, TSH, CMP #### [facility] [address] [address] [address] Juan Zamarripa CO2 [Moles/Vol] 28.5 mmol/L Normal 21.0-32.0 [facility] Comment on above: Performed By: #### L IPA, HSTROPN, TSH, CMP #### [facility] [address] [address] [address] Juan Zamarripa Creatinine [Mass/Vol] 0.88 mg/dL Normal 0.55-1.[address] [facility] Comment on above: Performed By: #### L IPA, HSTROPN, TSH, CMP #### [facility] [address] [address] [address] Juan Zamarripa EGFR-AF PARAGUAYAN >60 Normal >=60 [facility] Comment on above: Performed By: #### L IPA, HSTROPN, TSH, CMP #### [facility] [address] [address] [address] Juan Zamarripa EGFR-NON AF PARAGUAYAN >60 Normal >=[address] [facility] Comment on above: Performed By: #### L IPA, HSTROPN, TSH, CMP #### [facility] [address] [address] [address] Juan Zamarripa Glucose [Mass/Vol] 129 mg/dL Critically high 74-106 [facility] Comment on above: Performed By: #### L IPA, HSTROPN, TSH, CMP #### [facility] [address] [address] [address] Juan Zamarripa Potassium [Moles/Vol] 3.9 mmol/L Normal 3.5-5.[address] [facility] Comment on above: Performed By: #### L IPA, HSTROPN, TSH, CMP #### [facility] [address] [address] [address] Juan Zamarripa Sodium [Moles/Vol] 138 mmol/L Normal 136-145 [facility] Comment on above: Performed By: #### L IPA, HSTROPN, TSH, CMP #### [facility] [address] [place] [address] Dr. Juan Zamarripa Urea nitrogen [Mass/Vol] 12.0 mg/dL Normal 7.0-18.[address] [facility] Comment on above: Performed By: #### L IPA, HSTROPN, TSH, CMP #### [facility] [address] [place] [address] Dr. Juan Zamarripa Urea nitrogen/Creatinine [Mass ratio] 13.6 mg/mg Normal [facility] Comment on above: Performed By: #### L IPA, HSTROPN, TSH, CMP #### [facility] [address] [place] [address] Dr. Juan Zamarripa ACETONE SERUMon 04-12-2022 ACETONE Negative Normal NEGATIVE [facility] Comment on above: Performed By: #### C BC #### [facility] [address] [place] [address] Dr. Juan Zamarripa BLOOD CULTURE ID PANELon A. baumannii Not detected Normal NOT DETECTED [facility] Comment on above: Performed By: #### L IPA, HSTROPN, TSH, CMP #### [facility] [address] [place] [address] Dr. Juan Zamarripa Bacteriodes fragilis Not detected Normal NOT DETECTED The [facility] Comment on above: Performed By: #### L IPA, HSTROPN, TSH, CMP #### [facility] [address] [place] [address] Dr. Juan Zamarripa BCID CONTROLS PASSED Normal [facility] Comment on above: Performed By: #### L IPA, HSTROPN, TSH, CMP #### [facility] [address] [place] [address] Dr. Juan Zamarripa BCIDBTHD BLOOD CULTURE BOTTLE INFORMATION Normal The [facility] Comment on above: Performed By: #### L IPA, HSTROPN, TSH, CMP #### [facility] [address] [place] [address] Dr. Juan Zamarripa BCIDHD1 ANTIMICROBIAL RESIST ANCE GENES Normal [facility] Comment on above: Performed By: #### L IPA, HSTROPN, TSH, CMP #### [facility] [address] [address] [address] Juan Zamarripa BCIDHD2 SEE BELOW [facility] Comment on above: Result Comment: Note : Antimicrobial resitance can occur via multiple mechanisms. A Not Detected result for the [employer] antomicrobial resistance gene assays does not indicate antimicrobial susceptibility. Subculturing is required for species identification and susceptibility testing of isolates. Performed By: #### L IPA, HSTROPN, TSH, CMP #### [facility] [address] [address] [address] Juan Zamarripa BCIDHD3 Positive Normal [facility] Comment on above: Performed By: #### L IPA, HSTROPN, TSH, CMP #### [facility] [address] [address] [address] Juan Zamarripa BCIDHD4 Negative Normal The [facility] Comment on above: Performed By: #### L IPA, HSTROPN, TSH, CMP #### [facility] [address] [address] [address] Juan Zamarripa BCIDHD5 YEAST Normal The [facility] Comment on above: Performed By: #### L IPA, HSTROPN, TSH, CMP #### [facility] [address] [address] [address] Juan Zamarripa Bottle Set: Set 1 Normal The [facility] Comment on above: Performed By: #### L IPA, HSTROPN, TSH, CMP #### [facility] [address] [address] [address] Juan Zamarripa Bottle: Anaerobic Normal The [facility] Comment on above: Performed By: #### L IPA, HSTROPN, TSH, CMP #### [facility] [address] [address] [address] Juan Zamarripa C. neoformans/gattii Not detected Normal NOT DETECTED The [facility] Comment on above: Performed By: #### L IPA, HSTROPN, TSH, CMP #### [facility] [address] [address] [address] Juan Zamarripa Mary Lou albicans Not detected Normal NOT DETECTED The [facility] Comment on above: Performed By: #### L IPA, HSTROPN, TSH, CMP #### [facility] [address] [address] [address] Juan Zamarripa Mary Lou auris Not detected Normal NOT DETECTED The [facility] Comment on above: Performed By: #### L IPA, HSTROPN, TSH, CMP #### [facility] [address] [address] [address] Juan Zamarripa Mary Lou glabrata Not detected Normal NOT DETECTED The [facility] Comment on above: Performed By: #### L IPA, HSTROPN, TSH, CMP #### [facility] [address] [address] [address] Juan Zamarripa Mary Lou Krusei Not detected Normal NOT DETECTED The [facility] Comment on above: Performed By: #### L IPA, HSTROPN, TSH, CMP #### [facility] [address] [place] [address] Dr. Juan Zamarripa Mary Lou Parapsilosis Not detected Normal NOT DETECTED The [facility] Comment on above: Performed By: #### L IPA, HSTROPN, TSH, CMP #### [facility] [address] [place] [address] Dr. Juan Zamarripa Mary Lou Tropicalis Not detected Normal NOT DETECTED The [facility] Comment on above: Performed By: #### L IPA, HSTROPN, TSH, CMP #### [facility] [address] [address] [address] Juan Zamarripa CTX-M Resistant Gene Not Applicable Normal NOT DETECTED The [facility] Comment on above: Performed By: #### L IPA, HSTROPN, TSH, CMP #### [facility] [address] [address] [address] Juan Zamarripa E. Cloacae complex Not detected Normal NOT DETECTED The [facility] Comment on above: Performed By: #### L IPA, HSTROPN, TSH, CMP #### [facility] [address] [address] [address] Juan Zamarripa E. faecalis Not detected Normal NOT DETECTED The [facility] Comment on above: Performed By: #### L IPA, HSTROPN, TSH, CMP #### [facility] [address] [place] [address] Dr. Juan Zamarripa E. faecium Not detected Normal NOT DETECTED The [facility] Comment on above: Performed By: #### L IPA, HSTROPN, TSH, CMP #### [facility] [address] [place] [address] Dr. Juan Zamarripa Enterobacteriaceae Not detected Normal NOT DETECTED The [facility] Comment on above: Performed By: #### L IPA, HSTROPN, TSH, CMP #### [facility] [address] [place] [address] Dr. Juan Zamarripa Escherichia coli Not detected Normal NOT DETECTED The [facility] Comment on above: Performed By: #### L IPA, HSTROPN, TSH, CMP #### [facility] [address] [place] [address] Dr. Juan Zamarripa H. influenzae Not detected Normal NOT DETECTED The [facility] Comment on above: Performed By: #### L IPA, HSTROPN, TSH, CMP #### [facility] [address] [place] [address] Dr. Juan Zamarripa IMP Resistant Gene Not Applicable Normal NOT DETECTED The [facility] Comment on above: Performed By: #### L IPA, HSTROPN, TSH, CMP #### [facility] [address] [place] [address] Dr. Juan Zamarripa K. oxytoca Not detected Normal NOT DETECTED The [facility] Comment on above: Performed By: #### L IPA, HSTROPN, TSH, CMP #### [facility] [address] [place] [address] Dr. Juan Zamarripa K. pneumoniae Not detected Normal NOT DETECTED The [facility] Comment on above: Performed By: #### L IPA, HSTROPN, TSH, CMP #### [facility] [address] [place] [address] Dr. Juan Zamarripa Klebsiella aerogenes Not detected Normal NOT DETECTED The [facility] Comment on above: Performed By: #### L IPA, HSTROPN, TSH, CMP #### [facility] [address] [address] [address] Juan Zamarripa KPC Resistant Gene Not Applicable Normal NOT DETECTED The [facility] Comment on above: Performed By: #### L IPA, HSTROPN, TSH, CMP #### [facility] [address] [address] [address] Juan Zamarripa List. monocytogenes Not detected Normal NOT DETECTED The [facility] Comment on above: Performed By: #### L IPA, HSTROPN, TSH, CMP #### [facility] [address] [address] [address] Juan Zamarripa Mcr-1 Resistant Gene Not Applicable Normal NOT DETECTED The [facility] Comment on above: Performed By: #### L IPA, HSTROPN, TSH, CMP #### [facility] [address] [place] [address] Dr. Juan Zamarripa mecA/C Not Applicable Normal NOT DETECTED [facility] Comment on above: Performed By: #### L IPA, HSTROPN, TSH, CMP #### [facility] [address] [address] [address] Juan Zamarripa mecA/C MREJ Not Applicable Normal NOT DETECTED [facility] Comment on above: Performed By: #### L IPA, HSTROPN, TSH, CMP #### [facility] [address] [address] [address] Juan Zamarripa N. meningitidis Not detected Normal NOT DETECTED The [facility] Comment on above: Performed By: #### L IPA, HSTROPN, TSH, CMP #### [facility] [address] [address] [address] Juan Zamarripa NDM Resistant Gene Not Applicable Normal NOT DETECTED The [facility] Comment on above: Performed By: #### L IPA, HSTROPN, TSH, CMP #### [facility] [address] [address] [address] Juan Zamarripa Oxa-48-like Not Applicable Normal NOT DETECTED The [facility] Comment on above: Performed By: #### L IPA, HSTROPN, TSH, CMP #### [facility] [address] [address] [address] Juan Zamarripa Proteus Not detected Normal NOT DETECTED The [facility] Comment on above: Performed By: #### L IPA, HSTROPN, TSH, CMP #### [facility] [address] [address] [address] Juan Zamarripa Pseud. aeruginosa Not detected Normal NOT DETECTED The [facility] Comment on above: Performed By: #### L IPA, HSTROPN, TSH, CMP #### [facility] [address] [address] [address] Juan Zamarripa S. maltophilia Not detected Normal NOT DETECTED The [facility] Comment on above: Performed By: #### L IPA, HSTROPN, TSH, CMP #### [facility] [address] [place] [address] Dr. Juan Zamarripa Salmonella Not detected Normal NOT DETECTED The [facility] Comment on above: Performed By: #### L IPA, HSTROPN, TSH, CMP #### [facility] [address] [place] [address] Dr. Juan Zamarripa Seratia marcescens Not detected Normal NOT DETECTED The [facility] Comment on above: Performed By: #### L IPA, HSTROPN, TSH, CMP #### [facility] [address] [place] [address] Dr. Juan Zamarripa Site: Rt Ac Normal The [facility] Comment on above: Performed By: #### L IPA, HSTROPN, TSH, CMP #### [facility] [address] [address] [address] Juan Zamarripa Staph. aureus Not detected Normal NOT DETECTED The [facility] Comment on above: Performed By: #### L IPA, HSTROPN, TSH, CMP #### [facility] [address] [place] [address] Dr. Juan Zamarripa Staph. epidermidis Not detected Normal NOT DETECTED The [facility] Comment on above: Performed By: #### L IPA, HSTROPN, TSH, CMP #### [facility] [address] [address] [address] Juan Zamarripa Staph. lugdunensis Not detected Normal NOT DETECTED The [facility] Comment on above: Performed By: #### L IPA, HSTROPN, TSH, CMP #### [facility] [address] [address] [address] Juan Zamarripa Staphylococcus Detected Critically abnormal NOT DETECTED The [facility] Comment on above: Performed By: #### L IPA, HSTROPN, TSH, CMP #### [facility] [address] [address] [address] Juan Zamarripa Strep. agalactiae Not detected Normal NOT DETECTED The [facility] Comment on above: Performed By: #### L IPA, HSTROPN, TSH, CMP #### [facility] [address] [place] [address] Dr. Juan Zamarripa Strep. pneumoniae Not detected Normal NOT DETECTED The [facility] Comment on above: Performed By: #### L IPA, HSTROPN, TSH, CMP #### [facility] [address] [place] [address] Dr. Juan Zamarripa Strep. pyogenes Not detected Normal NOT DETECTED The [facility] Comment on above: Performed By: #### L IPA, HSTROPN, TSH, CMP #### [facility] [address] [place] [address] Dr. Juan Zamarripa Streptococcus Not detected Normal NOT DETECTED The [facility] Comment on above: Performed By: #### L IPA, HSTROPN, TSH, CMP #### [facility] [address] [place] [address] Dr. Juan Zamarripa Aleyda/B Resist. Gene Not Applicable Normal NOT DETECTED The [facility] Comment on above: Performed By: #### L IPA, HSTROPN, TSH, CMP #### [facility] [address] [place] [address] Dr. Juan Zamarripa VIM Resistant Gene Not Applicable Normal NOT DETECTED The [facility] Comment on above: Performed By: #### L IPA, HSTROPN, TSH, CMP #### [facility] [address] [place] [address] Dr. Juan Zamarripa CBC AUTO DIFFon 04-12-2022 BASO # 0.1 103/ul Normal 0.0-0.[address] [facility] Comment on above: Performed By: #### L IPA, HSTROPN, TSH, CMP #### [facility] [address] [place] [address] Dr. Juan Zamarripa Basophils/100 WBC (Bld) 0.6 % Normal 0.2-2.0 [facility] Comment on above: Performed By: #### L IPA, HSTROPN, TSH, CMP #### [facility] [address] [place] [address] Dr. Juan Zamarripa EO # 0.1 103/ul Normal 0.0-0.[address] [facility] Comment on above: Performed By: #### L IPA, HSTROPN, TSH, CMP #### [facility] [address] [place] [address] Dr. Juan Zamarripa Eosinophils/100 WBC (Bld) 0.9 % Normal 0.9-7.[address] [facility] Comment on above: Performed By: #### L IPA, HSTROPN, TSH, CMP #### [facility] [address] [place] [address] Dr. Juan Zamarripa Erythrocyte distribution width (RBC) [Ratio] 12.8 % Normal 11.0-15.[address] [facility] Comment on above: Performed By: #### L IPA, HSTROPN, TSH, CMP #### [facility] [address] [place] [address] Dr. Juan Zamarripa Hematocrit (Bld) [Volume fraction] 42.9 % Normal 36.0-48.[address] [facility] Comment on above: Performed By: #### L IPA, HSTROPN, TSH, CMP #### [facility] [address] [place] [address] Dr. Juan Zamarripa Hemoglobin (Bld) [Mass/Vol] 15.1 g/dL Normal 12.0-16.[address] [facility] Comment on above: Performed By: #### L IPA, HSTROPN, TSH, CMP #### [facility] [address] [place] [address] Dr. Juan Zamarripa IG # 0.04 10e3/ul Critically high 0.00-0.03 [facility] Comment on above: Performed By: #### L IPA, HSTROPN, TSH, CMP #### [facility] [address] [place] [address] Dr. Juan Zamarripa IG % 0.3 % Normal 0.0-0.[address] [facility] Comment on above: Performed By: #### L IPA, HSTROPN, TSH, CMP #### [facility] [address] [place] [address] Dr. Juan Zamarripa LYMPH # 5.0 103/ul Critically high 1.2-3.8 [facility] [place] Comment on above: Performed By: #### L IPA, HSTROPN, TSH, CMP #### [facility] [address] [place] [address] Dr. Juan Zamarripa Lymphocytes/100 WBC (Bld) 43.6 % Normal 20.5-60.[address] [facility] Comment on above: Performed By: #### L IPA, HSTROPN, TSH, CMP #### [facility] [address] [place] [address] Dr. Juan Zamarripa MANUAL DIFF REQ NO Normal [facility] [place] Comment on above: Performed By: #### L IPA, HSTROPN, TSH, CMP #### [facility] [address] [place] [address] Dr. Juan Zamarripa MCH (RBC) [Entitic mass] 31.3 pg Normal 26.7-34.[address] [facility] Comment on above: Performed By: #### L IPA, HSTROPN, TSH, CMP #### [facility] [address] [place] [address] Dr. Juan Zamarripa MCHC (RBC) [Mass/Vol] 35.2 g/dL Normal 29.9-35.[address] [facility] Comment on above: Performed By: #### L IPA, HSTROPN, TSH, CMP #### [facility] [address] [place] [address] Dr. Juan Zamarripa MCV (RBC) [Entitic vol] 88.8 fL Normal 81.0-99.0 [facility] Comment on above: Performed By: #### L IPA, HSTROPN, TSH, CMP #### [facility] [address] [place] [address] Dr. Juan Zamarripa MONO # 0.6 103/ul Normal 0.3-0.[address] [facility] Comment on above: Performed By: #### L IPA, HSTROPN, TSH, CMP #### [facility] [address] [place] [address] Dr. Juan Zamarripa Monocytes/100 WBC (Bld) 5.2 % Normal 1.7-12.0 [facility] Comment on above: Performed By: #### L IPA, HSTROPN, TSH, CMP #### [facility] [address] [place] [address] Dr. Juan Zamarripa NEUT # 5.7 103/ul Normal 1.4-6.[address] [facility] Comment on above: Performed By: #### L IPA, HSTROPN, TSH, CMP #### [facility] [address] [place] [address] Dr. Jaun Zamarripa Neutrophils/100 WBC (Bld) 49.4 % Normal 43.0-75.[address] [facility] Comment on above: Performed By: #### L IPA, HSTROPN, TSH, CMP #### [facility] [address] [place] [address] Dr. Juan Zamarripa Platelet mean volume (Bld) [Entitic vol] 9.6 fL Normal 9.5-13.[address] [facility] Comment on above: Performed By: #### L IPA, HSTROPN, TSH, CMP #### [facility] [address] [place] [address] Dr. Juan Zamarripa PLT 210 103/ul Normal 150-[address] [facility] Comment on above: Performed By: #### L IPA, HSTROPN, TSH, CMP #### [facility] [address] [place] [address] Dr. Juan Zamarripa RBC 4.83 106/ul Normal 4.20-5.[address] [facility] Comment on above: Performed By: #### L IPA, HSTROPN, TSH, CMP #### [facility] [address] [place], [place] [address] Dr. Juan Zamarripa WBC 11.5 103/ul Critically high 4.0-11.0 [facility] Comment on above: Performed By: #### L IPA, HSTROPN, TSH, CMP #### [facility] [address] [place], [place] [address] ABD/PELV W CONon [...] CARO SIBLEY Date: 2022-04-12 16:53 Normal The [facility] CULTURE BLOODon 04-12-2022 Microscopic examination of blood, culture Culture Observations: NO GROWTH AT 5 DAYS. Isolate 1 [id number] Normal The [facility] Comment on above: Performed By: #### A 1C #### [facility] [address] [place] [address] Dr. Juan Zamarripa CULTURE URINEon 04-12-2022 CULTURE URINE Culture Observations : MODERATE GROWTH OF MIXED GENITAL ALDA. NO POTENTIAL PATHOGENS SEEN. Normal The [facility] Comment on above: Performed By: #### U RCX #### [facility] [address] [place] [address] Dr. Juan Zamarripa Covid-19 PCR ([facility])on SARS-CoV-2 (COVID-19) RNA SUNNY+probe Ql (Unsp spec) Not detected Normal NOT DETECTED The [facility] Comment on above: Result Comment: When diagnostic [...] for this test is supported by the [employer] of Health and Human Service's declaration that [...] #### L IPA, HSTROPN, TSH, CMP #### [facility] [address] [place] [address] Dr. Juan Zamarripa ER URINE PROFILEon 3 Bilirubin Ql (U) Negative Normal NEGATIVE [facility] Comment on above: Performed By: #### C BC #### [facility] [address] [place] [address] [address] Juan Zamarripa Clarity (U) SL CLOUDY Abnormal CLEAR The [facility] Comment on above: Performed By: #### C BC #### [facility] [address] [place] [address] [address] Juan Zamarripa Color (U) LT. YELLOW Normal YELLOW The [facility] Comment on above: Performed By: #### C BC #### [facility] [address] [place] [address] Dr. Juan Zamarripa ERUAHD A micrscopic examina tion will be performed if indicated. Normal The [facility] Comment on above: Performed By: #### C BC #### [facility] [address] [place] [address] Dr. Juan Zamarripa Glucose Ql (U) 250 mg/dl Abnormal NEGATIVE The [facility] Comment on above: Performed By: #### C BC #### [facility] [address] [place] [address] Dr. Juan Zamarripa Hemoglobin Ql (U) Negative Normal NEGATIVE [facility] Comment on above: Performed By: #### C BC #### [facility] [address] [place] [address] Dr. Juan Zamarripa Ketones Ql (U) TRACE Abnormal NEGATIVE The [facility] Comment on above: Performed By: #### C BC #### [facility] [address] [place] [address] Dr. Juan Zamarripa LEUKOCYTES SMALL Abnormal NEGATIVE [facility] Comment on above: Performed By: #### C BC #### [facility] [address] [place] [address] Dr. Juan Zamarripa Nitrite Ql (U) Negative Normal NEGATIVE The [facility] Comment on above: Performed By: #### C BC #### [facility] [address] [place] [address] Dr. Juan Zamarripa pH (U) 5.5 [pH] Normal 5-9 The [facility] Comment on above: Performed By: #### C BC #### [facility] [address] [place] [address] Dr. Juan Zamarripa SPEC GRAVITY 1.030 Abnormal 1.005-<=1. 025 [facility] Comment on above: Performed By: #### C BC #### [facility] [address] [place] [address] Dr. Juan Zamarripa UA PROTEIN Negative Normal NEGATIVE/ TRACE The [facility] Comment on above: Performed By: #### C BC #### [facility] [address] [place] [address] Dr. Juan Zamarripa UR MICRO IND INDICATED Normal [facility] Comment on above: Performed By: #### C BC #### [facility] [address] [place] [address] Dr. Juan Zamarripa Urobilinogen Qn (U) 0.2 {Amee'U}/dL Normal 0.2 - 1. [address] [facility] Comment on above: Performed By: #### C BC #### [facility] [address] [place] [address] Dr. Juan Zamarripa INFLUENZA A AND B AGon 04-12 INFLUANEGH SEE BELOW Normal The [facility] Comment on above: Result Comment: Nega tive for Flu A protein angiten. Infection due to Flu A cannot be ruled out. Flu A angiten in the sample may be below the detection limit of the test. Performed By: #### L IPA, HSTROPN, TSH, CMP #### [facility] [address] [place] [address] Dr. Juan Zamarripa INFLUBNEGH SEE BELOW Normal The [facility] Comment on above: Result Comment: Nega tive for Flu B protein antigen. Infection due to Flu B cannot be ruled out. Flu B antigen in the sample may be below the detection limit of the test. Performed By: #### L IPA, HSTROPN, TSH, CMP #### [facility] [address] [place] [address] Dr. Juan Zamarripa INFLUENZA A AG Negative Normal NEGATIVE SEE COMMENT [facility] Comment on above: Performed By: #### L IPA, HSTROPN, TSH, CMP #### [facility] [address] [place] [address] Dr. Juan Zamarripa INFLUENZA B AG Negative Normal NEGATIVE SEE COMMENT The [facility] Comment on above: Performed By: #### L IPA HSTROPN, TSH, CMP #### [facility] [address] [place] [address] Dr. Juan Zamarripa LACTATE/LACTIC ACIDon 2022 Lactate [Moles/Vol] 1.8 mmol/L Normal 0.4-1.9 [facility] Comment on above: Performed By: #### C BC #### [facility] [address] [place] [address] Dr. Juan Zamarripa Lactate [Moles/Vol] 3.1 mmol/L Critically high 0.4-1.[address] [facility] Comment on above: Performed By: #### L IPA, HSTROPN, TSH, CMP #### [facility] [address] [place] [address] Dr. Juan Zamarripa LIPASEon 04-12-2022 Lipase [Catalytic activity/Vol] 183.0 U/L Normal 73.0-393.[address] [facility] Comment on above: Performed By: #### A 1C #### [facility] [address] [place] [address] Dr. Juan Zamarripa PH VENOUS BLOODon 04-12-2022 PCO2 VENOUS 42.9 mmHg Normal 40.0-52.[address] [facility] Comment on above: Performed By: #### C BC #### [facility] [address] [place] [address] Dr. Juan Zamarripa pH VENOUS 7.383 Normal 7.330-7.[address] [facility] Comment on above: Performed By: #### C BC #### [facility] [address] [place] [address] Dr. Juan Zamarripa PROF 14(COMP METB)on 023 Albumin [Mass/Vol] 4.3 g/dL Normal 3.4-5.0 [facility] Comment on above: Performed By: #### A 1C #### [facility] [address] [place] [address] Dr. Juan Zamarripa Albumin/Globulin [Mass ratio] 1.0 {ratio} Normal [facility] Comment on above: Performed By: #### A 1C #### [facility] [address] [place] [address] [address] Juan Zamarripa ALP [Catalytic activity/Vol] 96 U/L Normal 46-[address] [facility] Comment on above: Performed By: #### A 1C #### [facility] [address] [place] [address] [address] Juan Zamarripa ALT [Catalytic activity/Vol] 80 U/L Critically high 14-[address] [facility] Comment on above: Performed By: #### A 1C #### [facility] [address] [place] [address] [address] Juan Zamarripa Anion gap [Moles/Vol] 14.7 mmol/L Normal [facility] Comment on above: Performed By: #### A 1C #### [facility] [address] [place] [address] [address] Juan Zamarripa AST [Catalytic activity/Vol] 45 U/L Critically high 15-[address] [facility] Comment on above: Performed By: #### A 1C #### [facility] [address] [place] [address] [address] Juan Zamarripa Bilirubin [Mass/Vol] 0.8 mg/dL Normal 0.2-1.[address] [facility] Comment on above: Performed By: #### A 1C #### [facility] [address] [place] [address] [address] Juan Zamarripa Calcium [Mass/Vol] 10.0 mg/dL Normal 8.5-10.1 [facility] Comment on above: Performed By: #### A 1C #### [facility] [address] [place] [address] [address] Juan Zamarripa Chloride [Moles/Vol] 99 mmol/L Normal 98-[address] [facility] Comment on above: Performed By: #### A 1C #### [facility] [address] [place] [address] [address] Juan Zamarripa CO2 [Moles/Vol] 26.4 mmol/L Normal 21.0-32.0 [facility] Comment on above: Performed By: #### A 1C #### [facility] [address] [place] [address] [address] Juan Zamarripa Creatinine [Mass/Vol] 0.89 mg/dL Normal 0.55-1.[address] [facility] Comment on above: Performed By: #### A 1C #### [facility] [address] [place] [address] [address] Juan Zamarripa EGFR-AF PARAGUAYAN >60 Normal >=60 [facility] Comment on above: Performed By: #### A 1C #### [facility] [address] [place] [address] [address] Juan Zamarripa EGFR-NON AF PARAGUAYAN >60 Normal >=[address] [facility] Comment on above: Performed By: #### A 1C #### [facility] [address] [place] [address] [address] Juan Zamarripa Globulin (S) [Mass/Vol] 4.3 g/dL Normal [facility] Comment on above: Performed By: #### A 1C #### [facility] [address] [place] [address] Dr. Juan Zamarripa Glucose [Mass/Vol] 168 mg/dL Critically high 74-106 [facility] Comment on above: Performed By: #### A 1C #### [facility] [address] [place] [address] Dr. Juan Zamarripa Potassium [Moles/Vol] 4.1 mmol/L Normal 3.5-5.[address] [facility] Comment on above: Performed By: #### A 1C #### [facility] [address] [place] [address] Dr. Juan Zamarripa Protein [Mass/Vol] 8.6 g/dL Critically high 6.4-8.2 [facility] Comment on above: Performed By: #### A 1C #### [facility] [address] [place] [address] Dr. Juan Zamarripa Sodium [Moles/Vol] 136 mmol/L Normal 136-145 [facility] Comment on above: Performed By: #### A 1C #### [facility] [address] [place] [address] Dr. Juan Zamarripa Urea nitrogen [Mass/Vol] 18.0 mg/dL Normal 7.0-18.[address] [facility] Comment on above: Performed By: #### A 1C #### [facility] [address] [place] [address] Dr. Juan Zamarripa Urea nitrogen/Creatinine [Mass ratio] 20.2 mg/mg Normal The [facility] Comment on above: Performed By: #### A 1C #### [facility] [address] [place] [address] Dr. Juan Zamarripa TROPONIN, HIGH SENSITIVITYon 04-12-2022 HSTROP 4.9 pg/mL Normal 4.0-51.3 The [facility] Comment on above: Result Comment: CUT- OFF POINTS HAVE BEEN ESTABLISHED BASED ON THE FOURTH UNIVERSAL DEFINITIONS OF MYOCARDIAL INFARCTION. THE UPPER REFERENCE LIMIT (URL) OF TROPONIN, DEFINED THE 99TH PERCENTILE OF cTnI DISTRIBUTION IN A REFERENCE POPULATION, HAS BEEN CONFIRMED THE DECISION THRESHOLD FOR VT DIAGNOSIS. Performed By: #### A 1C #### [facility] [address] [place] [address] Dr. Juan Zamarripa TSHon 04-12-2022 TSH 1.593 uIU/mL Normal 0.358-3.[address] [facility] Comment on above: Performed By: #### C BC #### [facility] [address] [place] [address] Dr. Juan Zamarripa URINE MICROSCOPIC ONLYon BACTERIA SMALL Abnormal NONE SEEN The [facility] Comment on above: Performed By: #### C BC #### [facility] [address] [place] [address] Dr. Juan Zamarripa Bacteria identified Cx Nom (U) INDICATED Normal The [facility] Comment on above: Performed By: #### C BC #### [facility] [address] [place] [address] Dr. Juan Zamarripa CAST NONE SEEN Normal NONE SEEN [facility] Comment on above: Performed By: #### C BC #### [facility] [address] [place] [address] Dr. Juan Zamarripa Crystals LM Nom (Urine sed) NONE SEEN Normal NONE SEEN The [facility] Comment on above: Performed By: #### C BC #### [facility] [address] [place] [address] [address] Juan Zamarripa Epithelial cells LM Ql (Urine sed) FEW Abnormal NONE SEEN /RARE The [facility] Comment on above: Performed By: #### C BC #### [facility] [address] [place] [address] [address] Juan Zamarripa MUCOUS NONE SEEN Normal NONE SEEN The [facility] Comment on above: Performed By: #### C BC #### [facility] [address] [place] [address] [address] Juan Zamarripa RBC 0-2 Normal 0-2 [facility] Comment on above: Performed By: #### C BC #### [facility] [address] [place] [address] Dr. Juan Zamarripa WBC 2-5 Abnormal NONE SEEN The [facility] Comment on above: Performed By: #### C BC #### [facility] [address] [place] [address] Dr. Juan Zamarripa XR CHEST 1 Von [...] JAZMINE DODSON Date: 2022-04-12 15:31 Normal The [facility] CBC AUTO DIFFon 11-26-2021 BASO # 0.1 103/ul Normal 0.0-0.[address] [facility] Comment on above: Performed By: #### L IPA, HSTROPN, TSH, CMP #### [facility] [address] [place] [address] Dr. Juan Zamarripa Basophils/100 WBC (Bld) 0.5 % Normal 0.2-2.0 [facility] Comment on above: Performed By: #### L IPA, HSTROPN, TSH, CMP #### [facility] [address] [place] [address] Dr. Juan Zamarripa EO # 0.1 103/ul Normal 0.0-0.[address] [facility] Comment on above: Performed By: #### L IPA, HSTROPN, TSH, CMP #### [facility] [address] [place] [address] Dr. Juan Zamarripa Eosinophils/100 WBC (Bld) 1.1 % Normal 0.9-7.[address] [facility] Comment on above: Performed By: #### L IPA, HSTROPN, TSH, CMP #### [facility] [address] [place] [address] Dr. Juan Zamarripa Erythrocyte distribution width (RBC) [Ratio] 12.5 % Normal 11.0-15.[address] [facility] Comment on above: Performed By: #### L IPA, HSTROPN, TSH, CMP #### [facility] [address] [place] [address] Dr. Juan Zamarripa Hematocrit (Bld) [Volume fraction] 39.6 % Normal 36.0-48.[address] [facility] Comment on above: Performed By: #### L IPA, HSTROPN, TSH, CMP #### [facility] [address] [place] [address] Dr. Juan Zamarripa Hemoglobin (Bld) [Mass/Vol] 13.7 g/dL Normal 12.0-16.[address] [facility] Comment on above: Performed By: #### L IPA, HSTROPN, TSH, CMP #### [facility] [address] [place] [address] Dr. Juan Zamarripa IG # 0.04 10e3/ul Critically high 0.00-0.03 [facility] Comment on above: Performed By: #### L IPA, HSTROPN, TSH, CMP #### [facility] [address] [place] [address] Dr. Juan Zamarripa IG % 0.4 % Normal 0.0-0.[address] [facility] Comment on above: Performed By: #### L IPA, HSTROPN, TSH, CMP #### [facility] [address] [place] [address] Dr. Juan Zamarripa LYMPH # 4.2 103/ul Critically high 1.2-3.8 [facility] Comment on above: Performed By: #### L IPA, HSTROPN, TSH, CMP #### [facility] [address] [place] [address] Dr. Juan Zamarripa Lymphocytes/100 WBC (Bld) 38.8 % Normal 20.5-60.[address] [facility] Comment on above: Performed By: #### L IPA, HSTROPN, TSH, CMP #### [facility] [address] [place] [address] Dr. Juan Zamarripa MANUAL DIFF REQ NO Normal [facility] Comment on above: Performed By: #### L IPA, HSTROPN, TSH, CMP #### [facility] [address] [place] [address] Dr. Juan Zamarripa MCH (RBC) [Entitic mass] 32.2 pg Normal 26.7-34.[address] [facility] Comment on above: Performed By: #### L IPA, HSTROPN, TSH, CMP #### [facility] [address] [place] [address] Dr. Juan Zamarripa MCHC (RBC) [Mass/Vol] 34.6 g/dL Normal 29.9-35.[address] [facility] Comment on above: Performed By: #### L IPA, HSTROPN, TSH, CMP #### [facility] [address] [place] [address] Dr. Juan Zamarripa MCV (RBC) [Entitic vol] 93.0 fL Normal 81.0-99.0 [facility] Comment on above: Performed By: #### L IPA, HSTROPN, TSH, CMP #### [facility] [address] [place] [address] Dr. Juan Zamarripa MONO # 0.4 103/ul Normal 0.3-0.[address] [facility] Comment on above: Performed By: #### L IPA, HSTROPN, TSH, CMP #### [facility] [address] [address] [address] Juan Zamarripa Monocytes/100 WBC (Bld) 3.9 % Normal 1.7-12.0 [facility] Comment on above: Performed By: #### L IPA, HSTROPN, TSH, CMP #### [facility] [address] [place] [address] Dr. Juan Zamarripa NEUT # 6.1 103/ul Normal 1.4-6.[address] [facility] Comment on above: Performed By: #### L IPA, HSTROPN, TSH, CMP #### [facility] [address] [place] [address] Dr. Juan Zamarripa Neutrophils/100 WBC (Bld) 55.3 % Normal 43.0-75.[address] [facility] Comment on above: Performed By: #### L IPA, HSTROPN, TSH, CMP #### [facility] [address] [place] [address] Dr. Juan Zamarripa Platelet mean volume (Bld) [Entitic vol] 9.6 fL Normal 9.5-13.[address] [facility] Comment on above: Performed By: #### L IPA, HSTROPN, TSH, CMP #### [facility] [address] [place] [address] Dr. Juan Zamarripa PLT 187 103/ul Normal 150-450 [facility] Comment on above: Performed By: #### L IPA, HSTROPN, TSH, CMP #### [facility] [address] [place] [address] Dr. Juan Zamarripa RBC 4.26 106/ul Normal 4.20-5.40 [facility] Comment on above: Performed By: #### L IPA, HSTROPN, TSH, CMP #### [facility] [address] [place] [address] Dr. Juan Zamarripa WBC 10.9 103/ul Normal 4.0-11.0 [facility] Comment on above: Performed By: #### L IPA, HSTROPN, TSH, CMP #### [facility] [address] [place] [address] Dr. Juan [facility]ri[facility] SARS-CoV-2 (COVID-19) RNA SUNNY+probe Ql (Unsp spec) Not detected Normal NOT DETECTED The [facility] Comment on above: Result Comment: When diagnostic [...] for this test is supported by the [employer] and Human Service's declaration that [...] #### L IPA, HSTROPN, TSH, CMP #### [facility] [address] [place] [address] Dr. Juan Zamarripa LIPASEon 11-26-2021 Lipase [Catalytic activity/Vol] 140.0 U/L Normal 73.0-393.[address] [facility] Comment on above: Performed By: #### L IPA, HSTROPN, TSH, CMP #### [facility] [address] [place] [address] Dr. Juan Zamarripa PROF 14(COMP METB)on 022 Albumin [Mass/Vol] 4.2 g/dL Normal 3.4-5.0 [facility] Comment on above: Performed By: #### L IPA, HSTROPN, TSH, CMP #### [facility] [address] [place] [address] Dr. Juan Zamarripa Albumin/Globulin [Mass ratio] 1.1 {ratio} Normal [facility] Comment on above: Performed By: #### L IPA, HSTROPN, TSH, CMP #### [facility] [address] [place] [address] Dr. Juan Zamarripa ALP [Catalytic activity/Vol] 93 U/L Normal 46-[address] [facility] Comment on above: Performed By: #### L IPA, HSTROPN, TSH, CMP #### [facility] [address] [place] [address] Dr. Juan Zamarripa ALT [Catalytic activity/Vol] 74 U/L Critically high 14-[address] [facility] Comment on above: Performed By: #### L IPA, HSTROPN, TSH, CMP #### [facility] [address] [place] [address] Dr. Juan Zamarripa Anion gap [Moles/Vol] 15.6 mmol/L Normal Th [facility] Comment on above: Performed By: #### L IPA, HSTROPN, TSH, CMP #### [facility] [address] [place] [address] Dr. Juan Zamarripa AST [Catalytic activity/Vol] 46 U/L Critically high 15-[address] [facility] Comment on above: Performed By: #### L IPA, HSTROPN, TSH, CMP #### [facility] [address] [place] [address] Dr. Juan Zamarripa Bilirubin [Mass/Vol] 0.6 mg/dL Normal 0.2-1.[address] [facility] Comment on above: Performed By: #### L IPA, HSTROPN, TSH, CMP #### [facility] [address] [place] [address] Dr. Juan Zamarripa Calcium [Mass/Vol] 9.7 mg/dL Normal 8.5-10.1 [facility] Comment on above: Performed By: #### L IPA, HSTROPN, TSH, CMP #### [facility] [address] [place] [address] Dr. Juan Zamarripa Chloride [Moles/Vol] 100 mmol/L Normal 98-[address] [facility] Comment on above: Performed By: #### L IPA, HSTROPN, TSH, CMP #### [facility] [address] [place] [address] Dr. Juan Zamarripa CO2 [Moles/Vol] 25.6 mmol/L Normal 21.0-32.0 [facility] Comment on above: Performed By: #### L IPA, HSTROPN, TSH, CMP #### [facility] [address] [place] [address] Dr. Juan Zamarripa Creatinine [Mass/Vol] 0.89 mg/dL Normal 0.55-1.[address] [facility] Comment on above: Performed By: #### L IPA, HSTROPN, TSH, CMP #### [facility] [address] [place] [address] Dr. Juan Zamarripa EGFR-AF PARAGUAYAN >60 Normal >=60 [facility] Comment on above: Performed By: #### L IPA, HSTROPN, TSH, CMP #### [facility] [address] [place] [address] Dr. Juan Zamarripa EGFR-NON AF PARAGUAYAN >60 Normal >=[address] [facility] Comment on above: Performed By: #### L IPA, HSTROPN, TSH, CMP #### [facility] [address] [place] [address] Dr. Juan Zamarripa Globulin (S) [Mass/Vol] 3.7 g/dL Normal [facility] Comment on above: Performed By: #### L IPA, HSTROPN, TSH, CMP #### [facility] [address] [address] [address] Juan Zamarripa Glucose [Mass/Vol] 183 mg/dL Critically high 74-106 [facility] Comment on above: Performed By: #### L IPA, HSTROPN, TSH, CMP #### [facility] [address] [place] [address] Dr. Juan Zamarripa Potassium [Moles/Vol] 4.2 mmol/L Normal 3.5-5.[address] [facility] Comment on above: Performed By: #### L IPA, HSTROPN, TSH, CMP #### [facility] [address] [place] [address] Dr. Juan Zamarripa Protein [Mass/Vol] 7.9 g/dL Normal 6.4-8.2 [facility] Comment on above: Performed By: #### L IPA, HSTROPN, TSH, CMP #### [facility] [address] [place] [address] Dr. Juan Zamarripa Sodium [Moles/Vol] 137 mmol/L Normal 136-145 [facility] Comment on above: Performed By: #### L IPA, HSTROPN, TSH, CMP #### [facility] [address] [place] [address] Dr. Juan Zmaarripa Urea nitrogen [Mass/Vol] 13.0 mg/dL Normal 7.0-18.[address] [facility] Comment on above: Performed By: #### L IPA, HSTROPN, TSH, CMP #### [facility] [address] [place] [address] Dr. Juan Zamarripa Urea nitrogen/Creatinine [Mass ratio] 14.6 mg/mg Normal [facility] Comment on above: Performed By: #### L IPA, HSTROPN, TSH, CMP #### [facility] [address] [place] [address] Dr. Juan Zamarripa TROPONIN, HIGH SENSITIVITYon 11-26-2021 HSTROP 4.6 pg/mL Normal 4.0-51.[address] [facility] Comment on above: Result Comment: CUT- OFF POINTS HAVE BEEN ESTABLISHED BASED ON THE FOURTH UNIVERSAL DEFINITIONS OF MYOCARDIAL INFARCTION. THE UPPER REFERENCE LIMIT (URL) OF TROPONIN, DEFINED THE 99TH PERCENTILE OF cTnI DISTRIBUTION IN A REFERENCE POPULATION, HAS BEEN CONFIRMED THE DECISION THRESHOLD FOR [place] DIAGNOSIS. Performed By: #### L IPA, HSTROPN, TSH, CMP #### [facility] [address] [place] [address] Dr. Juan Zamarripa TSHon 11-26-2021 TSH 2.343 uIU/mL Normal 0.358-3.[address] [facility] Comment on above: Performed By: #### L IPA, HSTROPN, TSH, CMP #### [facility] [address] [place] [address] Dr. Juan Zamarripa XR CHEST 1 Von [...] VERA ARANA Date: 2021-11-26 21:03 Normal [facility] Covid-19 PCR (CVDTBH)on SARS-CoV-2 (COVID-19) RNA SUNNY+probe Ql (Unsp spec) Not detected Normal NOT DETECTED [facility] Comment on above: Result Comment: This test is not yet approved or cleared by the [place] FDA. When there are no FDA-approved or cleared tests available, and other criteria are met, FDA can make tests available under an emergency access mechanism called an Emergency Use Authorization (EUA). The EUA for this test is supported by the [employer] Health and Human Service's (HHS's) declaration [...] SARS-CoV-2. Performed By: #### C BC #### [facility] [address] [address] [address] Juan Zamarripa CBC AUTO DIFFon 08-17-2021 BASO # 0.1 103/ul Normal 0.0-0.[address] [facility] Comment on above: Performed By: #### L IPA, HSTROPN, TSH, CMP #### [facility] [address] [address] [address] Juan Zamarripa Basophils/100 WBC (Bld) 0.7 % Normal 0.2-2.0 [facility] Comment on above: Performed By: #### L IPA, HSTROPN, TSH, CMP #### [facility] [address] [place] [address] Dr. Juan Zamarripa EO # 0.1 103/ul Normal 0.0-0.[address] [facility] Comment on above: Performed By: #### L IPA, HSTROPN, TSH, CMP #### [facility] [address] [place] [address] Dr. Juan Zamarripa Eosinophils/100 WBC (Bld) 1.6 % Normal 0.9-7.[address] [facility] Comment on above: Performed By: #### L IPA, HSTROPN, TSH, CMP #### [facility] [address] [place] [address] Dr. Juan Zamarripa Erythrocyte distribution width (RBC) [Ratio] 12.6 % Normal 11.0-15.[address] [facility] Comment on above: Performed By: #### L IPA, HSTROPN, TSH, CMP #### [facility] [address] [place] [address] Dr. Juan Zamarripa Hematocrit (Bld) [Volume fraction] 39.8 % Normal 36.0-48.[address] [facility] Comment on above: Performed By: #### L IPA, HSTROPN, TSH, CMP #### [facility] [address] [place] [address] Dr. Juan Zamarripa Hemoglobin (Bld) [Mass/Vol] 13.7 g/dL Normal 12.0-16.[address] [facility] Comment on above: Performed By: #### L IPA, HSTROPN, TSH, CMP #### [facility] [address] [place] [address] Dr. Juan Zamarripa IG # 0.02 10e3/ul Normal 0.00-0.[address] [facility] Comment on above: Performed By: #### L IPA, HSTROPN, TSH, CMP #### [facility] [address] [place] [address] Dr. Juan Zamarripa IG % 0.3 % Normal 0.0-0.[address] [facility] Comment on above: Performed By: #### L IPA, HSTROPN, TSH, CMP #### [facility] [address] [place] [address] Dr. Juan Zamarripa LYMPH # 3.1 103/ul Normal 1.2-3.[address] [facility] Comment on above: Performed By: #### L IPA, HSTROPN, TSH, CMP #### [facility] [address] [place] [address] Dr. Juan Zamarripa Lymphocytes/100 WBC (Bld) 40.5 % Normal 20.5-60.[address] [facility] Comment on above: Performed By: #### L IPA, HSTROPN, TSH, CMP #### [facility] [address] [place] [address] Dr. Juan Zamarripa MANUAL DIFF REQ NO Normal [facility] Comment on above: Performed By: #### L IPA, HSTROPN, TSH, CMP #### [facility] [address] [place] [address] Dr. Juan Zamarripa MCH (RBC) [Entitic mass] 32.3 pg Normal 26.7-34.[address] [facility] Comment on above: Performed By: #### L IPA, HSTROPN, TSH, CMP #### [facility] [address] [place] [address] Dr. Juan Zamarripa MCHC (RBC) [Mass/Vol] 34.4 g/dL Normal 29.9-35.[address] [facility] Comment on above: Performed By: #### L IPA, HSTROPN, TSH, CMP #### [facility] [address] [place] [address] Dr. Juan Zamarripa MCV (RBC) [Entitic vol] 93.9 fL Normal 81.0-99.0 [facility] Comment on above: Performed By: #### L IPA, HSTROPN, TSH, CMP #### [facility] [address] [place] [address] Dr. Juan Zamarripa MONO # 0.3 103/ul Normal 0.3-0.8 [facility] Comment on above: Performed By: #### L IPA, HSTROPN, TSH, CMP #### [facility] [address] [place] [address] Dr. Juan Zamarripa Monocytes/100 WBC (Bld) 4.2 % Normal 1.7-12.0 [facility] Comment on above: Performed By: #### L IPA, HSTROPN, TSH, CMP #### [facility] [address] [place] [address] Dr. Juan Zamarripa NEUT # 4.0 103/ul Normal 1.4-6.[address] [facility] Comment on above: Performed By: #### L IPA, HSTROPN, TSH, CMP #### [facility] [address] [place] [address] Dr. Juan Zamarripa Neutrophils/100 WBC (Bld) 52.7 % Normal 43.0-75.0 [facility] Comment on above: Performed By: #### L IPA, HSTROPN, TSH, CMP #### [facility] [address] [place] [address] Dr. Juan Zamarripa Platelet mean volume (Bld) [Entitic vol] 9.7 fL Normal 9.5-13.[address] [facility] Comment on above: Performed By: #### L IPA, HSTROPN, TSH, CMP #### [facility] [address] [place] [address] Dr. Juan Zamarripa PLT 164 103/ul Normal 150-450 [facility] Comment on above: Performed By: #### L IPA, HSTROPN, TSH, CMP #### [facility] [address] [place] [address] Dr. Juan Zamarripa RBC 4.24 106/ul Normal 4.20-5.40 [facility] Comment on above: Performed By: #### L IPA, HSTROPN, TSH, CMP #### [facility] [address] [place] [address] Dr. Juan Zamarripa WBC 7.6 103/ul Normal 4.0-11.0 [facility] Comment on above: Performed By: #### L IPA, HSTROPN, TSH, CMP #### [facility] [address] [address] [address] Juan Zamarripa FREE T4on 08-17-2021 Free T4 [Mass/Vol] 1.00 ng/dL Normal 0.76-1.46 [facility] Comment on above: Performed By: #### C BC #### [facility] [address] [address] [address] Juan Zamarripa GLYCOHEMOGLOBIN A1Con 2021 ADA RECOMMENDATION SEE BELOW Normal [facility] Comment on above: Result Comment: ADA RECOMMENDED LIMIT 4.0 - 6.0 ADA THERAPEUTIC TARGET < 7.0 ACTION SUGGESTED > 7.0 Performed By: #### A 1C #### [facility] [address] [place] [address] Dr. Juan Zamarripa Glucose [Mass/Vol] 140 mg/dL Normal [facility] Comment on above: Performed By: #### A 1C #### [facility] [address] [place] [address] Dr. Juan Zamarripa HbA1c (Bld) [Mass fraction] 6.5 % Critically high 4.5-6.[address] [facility] Comment on above: Performed By: #### A 1C #### [facility] [address] [place] [address] Dr. Juan Zamarripa LIPID PROFILEon 08-17-2021 CHOL-HDL RATIO NORM SEE BELOW Normal [facility] Comment on above: Result Comment: 3.3 - 4.4 LOW RISK 4.4 - 7.1 AVERAGE RISK 7.1 - 11.0 MODERATE RISK >11.0 HIGH RISK Performed By: #### L IPA, HSTROPN, TSH, CMP #### [facility] [address] [place] [address] Dr. Juan Zamarripa Cholesterol [Mass/Vol] 115 mg/dL Normal <=200 Th [facility] Comment on above: Performed By: #### L IPA, HSTROPN, TSH, CMP #### [facility] [address] [place] [address] Dr. Juan Zamarripa Cholesterol in HDL [Mass/Vol] 40 mg/dL Normal 40-[address] [facility] Comment on above: Performed By: #### L IPA, HSTROPN, TSH, CMP #### [facility] [address] [address] [address] Juan Zamarripa Cholesterol in LDL [Mass/Vol] 53.6 mg/dL Normal [facility] Comment on above: Performed By: #### L IPA, HSTROPN, TSH, CMP #### [facility] [address] [address] [address] Juan Zamarripa Cholesterol.total/Amanda sterol in HDL [Mass ratio] 2.9 {ratio} Normal [facility] Comment on above: Performed By: #### L IPA, HSTROPN, TSH, CMP #### [facility] [address] [address] [address] Juan Zamarripa HDL NORMAL > or = 60 mg/dl - LO W CARDIOVASCULAR RISK <40 mg/dl - HIGH CARDIOVASCULAR RISK Normal [facility] Comment on above: Performed By: #### L IPA, HSTROPN, TSH, CMP #### [facility] [address] [address] [address] Juan Zamarripa LDL CALC NORMAL SEE BELOW Normal [facility] Comment on above: Result Comment: <100 mg/dl OPTIMAL 100 - 129 mg/dl NEAR OR ABOVE OPTIMAL 130 - 159 mg/dl BORDERLINE HIGH 160 - 189 mg/dl HIGH >190 mg/dl VERY HIGH Performed By: #### L IPA, HSTROPN, TSH, CMP #### [facility] [address] [address] [address] Juan Zamarripa Triglyceride [Mass/Vol] 107 mg/dL Normal <=150 T [facility] Comment on above: Performed By: #### L IPA, HSTROPN, TSH, CMP #### [facility] [address] [address] [address] Juan Zamarripa VLDL CALC 21.4 mg/dL Normal [facility] Comment on above: Performed By: #### L IPA, HSTROPN, TSH, CMP #### [facility] [address] [place] [address] Dr. Juan Zamarripa PROF 14(COMP METB)on 022 Albumin [Mass/Vol] 4.1 g/dL Normal 3.4-5.0 [facility] Comment on above: Performed By: #### L IPA, HSTROPN, TSH, CMP #### [facility] [address] [place] [address] Dr. Juan Zamarripa Albumin/Globulin [Mass ratio] 1.1 {ratio} Normal [facility] Comment on above: Performed By: #### L IPA, HSTROPN, TSH, CMP #### [facility] [address] [place] [address] Dr. Juan Zamarripa ALP [Catalytic activity/Vol] 94 U/L Normal 46-[address] [facility] Comment on above: Performed By: #### L IPA, HSTROPN, TSH, CMP #### [facility] [address] [place] [address] Dr. Juan Zamarripa ALT [Catalytic activity/Vol] 61 U/L Critically high 14-[address] [facility] Comment on above: Performed By: #### L IPA, HSTROPN, TSH, CMP #### [facility] [address] [place] [address] Dr. Juan Zamarripa Anion gap [Moles/Vol] 16.5 mmol/L Normal [facility] Comment on above: Performed By: #### L IPA, HSTROPN, TSH, CMP #### [facility] [address] [place] [address] Dr. Juan Zamarripa AST [Catalytic activity/Vol] 24 U/L Normal 15-[address] [facility] Comment on above: Performed By: #### L IPA, HSTROPN, TSH, CMP #### [facility] [address] [place] [address] Dr. Juan Zamarripa Bilirubin [Mass/Vol] 0.7 mg/dL Normal 0.2-1.[address] [facility] Comment on above: Performed By: #### L IPA, HSTROPN, TSH, CMP #### [facility] [address] [place] [address] Dr. Juan Zamarripa Calcium [Mass/Vol] 9.1 mg/dL Normal 8.5-10.1 [facility] Comment on above: Performed By: #### L IPA, HSTROPN, TSH, CMP #### [facility] [address] [address] [address] Juan Zamarripa Chloride [Moles/Vol] 103 mmol/L Normal 98-[address] [facility] Comment on above: Performed By: #### L IPA, HSTROPN, TSH, CMP #### [facility] [address] [address] [address] Juan Zamarripa CO2 [Moles/Vol] 25.4 mmol/L Normal 21.0-32.0 [facility] Comment on above: Performed By: #### L IPA, HSTROPN, TSH, CMP #### [facility] [address] [address] [address] Juan Zamarripa Creatinine [Mass/Vol] 0.87 mg/dL Normal 0.55-1.[address] [facility] Comment on above: Performed By: #### L IPA, HSTROPN, TSH, CMP #### [facility] [address] [address] [address] Juan Zamarripa EGFR-AF PARAGUAYAN >60 Normal >=60 [facility] Comment on above: Performed By: #### L IPA, HSTROPN, TSH, CMP #### [facility] [address] [address] [address] Juan Zamarripa EGFR-NON AF PARAGUAYAN >60 Normal >=[address] [facility] Comment on above: Performed By: #### L IPA, HSTROPN, TSH, CMP #### [facility] [address] [address] [address] Juan Zamarripa Globulin (S) [Mass/Vol] 3.9 g/dL Normal [facility] Comment on above: Performed By: #### L IPA, HSTROPN, TSH, CMP #### [facility] [address] [address] [address] Juan Zamarripa Glucose [Mass/Vol] 157 mg/dL Critically high 74-106 T [facility] Comment on above: Performed By: #### L IPA, HSTROPN, TSH, CMP #### [facility] [address] [place] [address] Dr. Juan Zamarripa Potassium [Moles/Vol] 4.4 mmol/L Normal 3.5-5.1 [facility] Comment on above: Performed By: #### L IPA, HSTROPN, TSH, CMP #### [facility] [address] [address] [address] Juan Zamarripa Protein [Mass/Vol] 8.0 g/dL Normal 6.4-8.2 [facility] Comment on above: Performed By: #### L IPA, HSTROPN, TSH, CMP #### [facility] [address] [place] [address] Dr. Juan Zamarripa Sodium [Moles/Vol] 141 mmol/L Normal 136-145 [facility] Comment on above: Performed By: #### L IPA, HSTROPN, TSH, CMP #### [facility] [address] [address] [address] Juan Zamarripa Urea nitrogen [Mass/Vol] 21.0 mg/dL Critically high 7.0-18.[address] [facility] Comment on above: Performed By: #### L IPA, HSTROPN, TSH, CMP #### [facility] [address] [place] [address] Dr. Juan Zamarripa Urea nitrogen/Creatinine [Mass ratio] 24.1 mg/mg Normal [facility] Comment on above: Performed By: #### L IPA, HSTROPN, TSH, CMP #### [facility] [address] [place] [address] Dr. Juan Zamarripa TSHon 08-17-2021 TSH 1.503 uIU/mL Normal 0.358-3.[address] [facility] Comment on above: Performed By: #### L IPA, HSTROPN, TSH, CMP #### [facility] [address] [place] [address] Dr. Juan Zamarripa TSH RANGE SEE BELOW Normal [facility] Comment on above: Result Comment: <0.3 4 UIU/ml HYPERTHYROID 0.34-5.60 UIU/ml EUTHYROID >5.60 UIU/ml HYPOTHYROID Performed By: #### L IPA, HSTROPN, TSH, CMP #### [facility] [facility] [address] [address] [address] Juan Weinstein 08-11-2021 CNPN Telephone (NCCAP) -------- IVELISSE GEE ([id number]) 1950 F Date Time Provider Department 08/11/21 MEHRDAD AGUILAR NCCJERMAINE During your visit today, we recorded the following information about you: Marta Cuellar [facility] 08/11/2021 12:14 PM Signed Called patient to [...] Status:Closed by MARTA GARCES on 08/11/21 Normal [facility] [id number] QUANTITA TIONon 10-13-2020 [id number] (AAT) PHENOTYPE SEE NOTE Normal [facility] Comment on above: Order Comment: FASTI NG:YES FASTING: YES Result Comment: THIS PATIENT'S YXWXF-[id number]-[id number] PHENOTYPE IS PI*MM. 90% of normal individuals have the MM phenotype, with normal quantitative AAT levels. Many phenotypic patterns have been described, including deficiency states with F, S, Z, or other alleles. As a general estimation, compared to M allele of 100% of normal P-3-Jugmqejifas protein, the S allele produces approximately 60% and the Z allele 20%. For example, an MS phenotype would have about 80% of normal Z-6-Fiqyqoawapu protein level, a 50% contribution from the M allele and 30% from the S allele. A ZZ phenotype would have about 20% of normal levels, a 10% contribution from each Z gene. The F allele has normal U-2-Zsigvbiccmv levels, but the kinetics of elastase inhibition [...] phenotype. Performed By: #### 2 63, 457, 23693, 8150, 508, 498, 326, 8472, 496, 249, 32561, 259 #### [facility] [address], [address] [place] [address] Retread Supervisor: Kush Hines MD #### [phone] #### [facility], [address] [place] [address] Retread Supervisor: Susan Sheikh MD,PhD,JAY #### [phone], [phone] #### [facility] [address] [facility] [place], [place] Retread Supervisor: Parrish Gloria M.D.,PhD [id number] QN 170 mg/dL Normal 83-199 [facility] Comment on above: Order Comment: FASTI NG:YES FASTING: YES Performed By: #### 2 63, 457, 14167, 7573, 508, 498, 326, 8472, 496, 249, 99089, 259 #### [facility] [address], [address] [place] [address] Retread Supervisor: Kush Hines MD #### [phone] #### [facility], [address] [place] [address] Retread Supervisor: Susan Sheikh MD,PhD,JAY #### [phone], [phone] #### [facility] [address] [facility] [place], [place] Retread Supervisor: Parrish Gloria M.D.,PhD TL SCREEN, IFA, W/REFL [...] AC-0: Negative International Consensus on TL Patterns (https://doi.org/10.1515/yitk-7390-5141) For additional information, please refer to http://education.Molecule Software.[employer]/faq/HQU109 (This link is being provided for informational/ educational purposes only.) Performed By: #### 2 63, 457, 94196, 7573, 508, 498, 326, 8472, 496, 249, 08379, 259 #### [facility] [address], [address] [place] [address] Retread Supervisor: Kush Hines MD #### [phone] #### [facility], [address] [address] Retread Supervisor: Susan Sheikh MD,PhD,JAY #### [phone], [phone] #### [facility]/[place] [address] [facility] [place], [place] Retread Supervisor: Parrish Gloria M.D.,PhD CELIAC DISEASE COMPREHENSIVE PANELon 10-13-2020 IMMUNOGLOBULIN A 185 mg/dL Normal 70-320 [facility] Comment on above: Performed By: #### 2 63, 457, 23978, 7573, 508, 498, 326, 8472, 496, 249, 52524, 259 #### [facility] [address], [address] [place] [address] Retread Supervisor: Kush Hnies MD #### [phone] #### [facility], [address] [id number] Retread Supervisor: Susan Sheikh MD,PhD,JAY #### [phone], [phone] #### [facility]/[place] [address] [facility] [address] [place], [place] Retread Supervisor: Parrish Gloria M.D.,PhD INTERPRETATION see note Normal [...] DQ8. Performed By: #### 2 63, 457, 62323, 7573, 508, 498, 326, 8472, 496, 249, 51904, 259 #### [facility] [address], [address] [place] [address] Retread Supervisor: Kush Hines MD #### [phone] #### [facility], [address] [place] [address] Retread Supervisor: Susan Sheikh MD,PhD,JAY #### [phone], [phone] #### [facility]/[place] [address] [facility] [place], [place] Retread Supervisor: Parrish Gloria M.D.,PhD TISSUE TRANSGLUTAMINASE AB, IGA 2 U/mL Normal <4 [facility] Comment on above: Result Comment: Value Interpretation <4 U/mL: No Antibody Detected >or=4 U/mL: Antibody Detected Performed By: #### 2 63, 457, 46476, 7573, 508, 498, 326, 8472, 496, 249, 41778, 259 #### [facility] [address], [address] [place] [address] Retread Supervisor: Kush Hines MD #### [phone] #### [facility], [address] [place] [address] Retread Supervisor: Susan Sheikh MD,PhD,JAY #### [phone], [phone] #### [facility] [address] [facility] [place], [place] Retread Supervisor: Parrish Gloria M.D.,PhD CERULOPLASMINon 10-13-2020 CERULOPLASMIN 31 mg/dL Normal 18-53 [facility] Comment on above: Performed By: #### 2 63, 457, 58929, 7573, 508, 498, 326, 8472, 496, 249, 42096, 259 #### [facility] [address], [address] [place] [address] Retread Supervisor: Kush Hines MD #### [phone] #### [facility], [address] [phone] Retread Supervisor: Susan Sheikh MD,PhD,JAY #### [phone], 32604 #### [facility] [address] [facility] [address] [place] Retread Supervisor: Parrish Gloria M.D.,PhD FERRITINon 10-13-2020 Ferritin [Mass/Vol] 70 ng/mL Normal 16-288 [facility] Comment on above: Performed By: #### 2 63, 457, 74204, 7573, 508, 498, 326, 8472, 496, 249, 05950, 259 #### [facility] [address], [address] [place] [address] Retread Supervisor: Kush Hines MD #### [phone] #### [facility], [address] [phone] Retread Supervisor: Susan Sheikh MD,PhD,JAY #### [phone], [phone] #### [facility] [address] [facility] [place], [place] Retread Supervisor: Parrish Gloria M.D.,PhD HEMOGLOBIN A1con 10-13-2020 HEMOGLOBIN [...] children. Performed By: #### 2 63, 457, 71427, 7573, 508, 498, 326, 8472, 496, 249, 85484, 259 #### [facility] [address], [address] [place] [address] Retread Supervisor: Kush Hines MD #### [phone] #### [facility], [address] [place] [address] Retread Supervisor: Susan Sheikh MD,PhD,JAY #### [phone], 35130 #### [facility] [address] [facility] [place], [place] Retread Supervisor: Parrish Gloria M.D.,PhD HEPATITIS A AB, TOTALon 07-0 HEPATITIS A AB, TOTAL Reactive Abnormal NON-RE ACTI VE [facility] Comment on above: Result Comment: For additional information, please refer to http://education.Nearpod.[employer]/faq/MVI201 (This link is being provided for informational/ educational purposes only.) Performed By: #### 2 63, 457, 74511, 7573, 508, 498, 326, 8472, 496, 249, 57890, 259 #### [facility] [address], [address] [place] [address] Retread Supervisor: Kush Hines MD #### [phone] #### [facility], [address] [place] [address] Retread Supervisor: Susan Sheikh MD,PhD,JAY #### [phone], [phone] #### [facility] [address] [facility] [place], [place] Retread Supervisor: Parrish Gloria M.D.,PhD HEPATITIS B CORE AB TOTAL W/ REFL IGMon 10-13-2020 HEPATITIS B CORE AB TOTAL Non-Reactive Normal NON-REACTI VE [facility] Comment on above: Performed By: #### 2 63, 457, 80410, 7573, 508, 498, 326, 8472, 496, 249, 19514, 259 #### [facility] [address], [address] [place] [address] Retread Supervisor: Kush Hines MD #### [phone] #### [facility], [address] [address] Retread Supervisor: Susan Sheikh MD,PhD,JAY #### [phone], 88587 #### [facility]/[address] [facility] [place], [place] Retread Supervisor: Parrish Gloria M.D.,PhD HEPATITIS B SURFACE ANTIBODY QLon 10-13-2020 HEPATITIS B SURFACE ANTIBODY QL Non-Reactive Normal NON-REACTI VE [facility] Comment on above: Performed By: #### 2 63, 457, 81140, 7573, 508, 498, 326, 8472, 496, 249, 30841, 259 #### [facility] [address], [address] [place] [address] Retread Supervisor: Kush Hines MD #### [phone] #### [facility], [address] [place], [place] Retread Supervisor: Susan Sheikh MD,PhD,JAY #### [phone], [phone] #### [facility]/[address] [facility] [place], [place] Retread Supervisor: Parrish Gloria M.D.,PhD HEPATITIS B SURFACE ANTIGEN W/REFL CONFIRMon 10-13-2020 HEPATITIS B SURFACE ANTIGEN Non-Reactive Normal NON-REACTI VE [facility] Comment on above: Performed By: #### 2 63, 457, 64836, 7573, 508, 498, 326, 8472, 496, 249, 88975, 259 #### [facility] [address] [place] [address], [address] [place] [address] Retread Supervisor: Kush Hines MD #### [phone] #### [facility], [address] [place] [address] Retread Supervisor: Susan Sheikh MD,PhD,JAY #### [phone], 11987 #### [facility]/[address] [facility] [address] [place] Retread Supervisor: Parrish Gloria M.D.,PhD HEPATITIS C AB W/REFL TO HCV RNA, QN, PCRon 10-13-2020 HEPATITIS C ANTIBODY Non-Reactive Normal NON-CHARMAINE CTI VE [facility] Comment on above: Performed By: #### 2 63, 457, 37957, 7573, 508, 498, 326, 8472, 496, 249, 78998, 259 #### [facility] [address] [facility], [address] [place] [address] Retread Supervisor: Kush Hines MD #### [phone] #### [facility], [address] [place] [address] Retread Supervisor: Susan Sheikh MD,PhD,JAY #### 45102, 34482 #### [facility] [address] [facility] [address] [place] Retread Supervisor: Parrish Gloria M.D.,PhD INDEX 0.02 Normal <1.00 [facility] Comment on above: Result Comment: HCV antibody was non-reactive. There is no laboratory evidence of HCV infection. In most cases, no further action is required. However, if recent HCV exposure is suspected, a test for HCV RNA (test code 26610) is suggested. For additional information please refer to http://education.Nuevora/faq/GKT83l9 (This link is being provided for informational/ educational purposes only.) Performed By: #### 2 63, 457, 85986, 7573, 508, 498, 326, 8472, 496, 249, 71181, 259 #### [facility] [address], [address] [place] [address] Retread Supervisor: Kush Hinse MD #### [phone] #### [facility], [address] [place] [address] Retread Supervisor: Susan Sheikh MD,PhD,JAY #### [phone], 69045 #### [facility] [place] Retread Supervisor: Parrish Gloria M.D.,PhD IRON AND TOTAL IRON BINDING CAPACITYon 10-13-2020 % SATURATION 19 % (calc) Normal 16-45 [facility] Comment on above: Performed By: #### 2 63, 457, 18214, 7573, 508, 498, 326, 8472, 496, 249, 35748, 259 #### [facility] [address], [address] [place] [address] Retread Supervisor: Kush Hines MD #### [phone] #### [facility], [address] [place] [address] Retread Supervisor: Susan Sheikh MD,PhD,JAY #### 20923, 89308 #### [facility] [address] [facility] [place], [place] Retread Supervisor: Parrish Gloria M.D.,PhD IRON BINDING CAPACITY 372 mcg/dL (calc) Normal 250-450 [facility] Comment on above: Performed By: #### 2 63, 457, 02931, 7573, 508, 498, 326, 8472, 496, 249, 26027, 259 #### [facility] of [address] , [address] [place] [address] Retread Supervisor: Kush Hines MD #### [phone] #### [facility], [address] [address] Retread Supervisor: Susan Sheikh MD,PhD,JYA #### 60213, 27708 #### [facility]/[address] [facility] [place], [place] Retread Supervisor: Parrish Gloria M.D.,PhD IRON, TOTAL 70 mcg/dL Normal 45-160 [facility] Comment on above: Performed By: #### 2 63, 457, 46694, 7573, 508, 498, 326, 8472, 496, 249, 91262, 259 #### [facility] [address], [address] [place] [address] Retread Supervisor: Kush Hines MD #### [phone] #### [facility], [address] [id number] Retread Supervisor: Susan Sheikh MD,PhD,JAY #### [phone], 69654 #### [facility] [address] [facility] [place], [place] Retread Supervisor: Parrish Gloria M.D.,PhD LIVER KIDNEY MICROSOME (LKM- [...] infection. Performed By: #### 2 63, 457, 62408, 7573, 508, 498, 326, 8472, 496, 249, 00664, 259 #### [facility] [address] [address] Retread Supervisor: Kush Hines MD #### 53532 #### [facility], [address] [place] [address] Retread Supervisor: Susan Sheikh MD,PhD,JAY #### [phone], 00109 #### [facility]/[address] [facility] [place], [place] Retread Supervisor: Parrish Gloria M.D.,PhD MITOCHONDRIAL ANTIBODY W/REF L TITERon 10-13-2020 MITOCHONDRIAL AB SCREEN Negative Normal NEGATIVE Q [facility] Comment on above: Performed By: #### 2 63, 457, 51145, 7573, 508, 498, 326, 8472, 496, 249, 41112, 259 #### [facility] [address] [address] Retread Supervisor: Kush Hines MD #### [phone] #### [facility], [address] [place] [address] Retread Supervisor: Susan Sheikh MD,PhD,JAY #### [phone], 56655 #### [facility]/[address] [facility] [place] Retread Supervisor: Parrish Gloria M.D.,PhD SMOOTH MUSCLE AB W/REFL TITE Butch 10-13-2020 SMOOTH MUSCLE AB SCREEN Negative Normal NEGATIVE Q [facility] Comment on above: Performed By: #### 2 63, 457, 56560, 7573, 508, 498, 326, 8472, 496, 249, 84988, 259 #### [facility] [address], [address] [place], [place] [address] Retread Supervisor: Kush Hines MD #### [phone] #### [facility] [address] [place] [address] Retread Supervisor: Susan Sheikh MD,PhD,JAY #### 53415, 34378 #### [facility]/[address] [facility] [place] Retread Supervisor: Parrish Gloria M.D.,PhD TSH W/REFLEX TO FT4on 2020 TSH W/REFLEX TO FT4 3.10 mIU/L Normal 0.40-4.50 [facility] Comment on above: Performed By: #### 2 63, 457, 46815, 7573, 508, 498, 326, 8472, 496, 249, 49874, 259 #### [facility] [address], [address] [place] [address] Retread Supervisor: Kush Hines MD #### [phone] #### [facility] [address] [place] [address] Retread Supervisor: Susan Sheikh MD,PhD,JAY #### 56895, 53711 #### [facility]/[address] [facility] [place], [place] Retread Supervisor: Parrish Gloria M.D.,PhD CNOVSPon 09-30-2020 CNOVS Visit (SP) Office (HEMASA) -------- IVELISSE GEE ([id number]) 1950 F Date Time Provider Department 09/30/20 1:30 PM MEHRDAD AGUILAR During your visit today, we recorded the following information about you: Temperature Pulse Respiration Blood pressure 97.2 degrees 71/minute 18/minute 121/54 Weight Height 73.6 kg 1.57 m Mehrdad Aguilar MD 10/02/2020 5:36 PM Signed PATIENT NAME: Ivelisse Gee DATE: 09/30/2020 PRIMARY CARE PHYSICIAN: Carmen Conley MD OTHER PHYSICIANS: Dr. Wahl (PCP [place], [place]), Dr. Magdaleno Castillo ([facility]) Portions of this encounter note have [...] BP 121/ (more content not included)... Normal [facility] Albumin/Creat Ratioon 2020 Albumin Urine Random <12.0 Normal [facility] Comment on above: Performed By: #### C MP, INSLAB, LIPB, CPEPT, GADCAB, B12, VITD, UACR ####[address] [phone] Albumin/Creat Ratio Not calculated Normal <30 [facility] Comment on above: Performed By: #### C MP, INSLAB, LIPB, CPEPT, GADCAB, B12, VITD, UACR ####[address] [place], [place] [phone] Creatinine,Urine,Ran 53.8 mg/dL Normal 20-300 [facility] Comment on above: Performed By: #### C MP, INSLAB, LIPB, CPEPT, GADCAB, B12, VITD, UACR ####[address] [place], [place] [phone] C-Peptideon 09-27-2020 C-Peptide 1.8 ng/mL Normal 0.8-3.9 [facility] Comment on above: Performed By: #### C MP, INSLAB, LIPB, CPEPT, GADCAB, B12, VITD, UACR ####[address] [address] [place], [place] [phone] CBC and Differentialon 09-27 Abs Baso 0.03 k/uL Normal <0.11 [facility] Abs Mck[place] 0.33 k/uL Normal <0.87 [facility] Abs Neut 4.29 k/uL Normal 1.45-7.50 [facility] Absolute nRBC <0.01 Normal <0.01 [facility] Basophils/100 WBC (Bld) 0.4 % Normal [facility] DTYPE Auto Diff Normal [facility] Eosinophils (Bld) [#/Vol] 0.12 10*3/uL Normal <0.46 [facility] Eosinophils/100 WBC (Bld) 1.5 % Normal [facility] Erythrocyte distribution width (RBC) [Ratio] 13.0 % Normal 11.5-15.0 [facility] Hematocrit (Bld) [Volume fraction] 37.3 % Normal 36.0-46.0 [facility] Hemoglobin (Bld) [Mass/Vol] 13.0 g/dL Normal 11.5-15.5 [facility] Lymphocytes (Bld) [#/Vol] 3.40 10*3/uL Normal 1.00-4.00 [facility] Lymphocytes/100 WBC (Bld) 41.6 % Normal [facility] MCH 31.9 pG Normal 26.0-34.0 [facility] MCHC (RBC) [Mass/Vol] 34.9 g/dL Normal 30.5-36.0 [facility] MCV (RBC) [Entitic vol] 91.4 fL Normal 80.0-100.0 [facility] Monocytes/100 WBC (Bld) 4.0 % Normal [facility] Neutrophils/100 WBC (Bld) 52.5 % Normal [facility] NRBCs 0.0 /100 WBC Normal 0 [facility] Platelet mean volume (Bld) [Entitic vol] 9.6 fL Normal 9.0-12.7 [facility] Platelets (Bld) [#/Vol] 164 10*3/uL Normal 150-400 [facility] RBC (Bld) [#/Vol] 4.08 10*6/uL Normal 3.90-5.20 [facility] WBC (Bld) [#/Vol] 8.18 10*3/uL Normal 3.70-11.00 [facility] Comp Metabolic Panelon 09-27 Albumin [Mass/Vol] 4.4 g/dL Normal 3.9-4.9 [facility] Comment on above: Performed By: #### C MP, INSLAB, LIPB, CPEPT, GADCAB, B12, VITD, UACR ####[facility] [address] [phone] ALP [Catalytic activity/Vol] 88 U/L Normal 34-123 [facility] Comment on above: Performed By: #### C MP, INSLAB, LIPB, CPEPT, GADCAB, B12, VITD, UACR ####[address] [address] [place], [place] [phone] ALT [Catalytic activity/Vol] 63 U/L High 7-38 [facility] Comment on above: Performed By: #### C MP, INSLAB, LIPB, CPEPT, GADCAB, B12, VITD, UACR ####[address] [phone] Anion gap [Moles/Vol] 12 mmol/L Normal 9-18 [facility] Comment on above: Performed By: #### C MP, INSLAB, LIPB, CPEPT, GADCAB, B12, VITD, UACR ####[address] [phone] AST [Catalytic activity/Vol] 42 U/L High 13-35 [facility] Comment on above: Performed By: #### C MP, INSLAB, LIPB, CPEPT, GADCAB, B12, VITD, UACR ####[address] [phone] Bilirubin [Mass/Vol] 0.6 mg/dL Normal 0.2-1.3 [facility] Comment on above: Performed By: #### C MP, INSLAB, LIPB, CPEPT, GADCAB, B12, VITD, UACR ####[address] [phone] Calcium [Mass/Vol] 9.2 mg/dL Normal 8.5-10.2 [facility] Comment on above: Performed By: #### C MP, INSLAB, LIPB, CPEPT, GADCAB, B12, VITD, UACR ####[facility] [place], [place] [phone] Chloride [Moles/Vol] 104 mmol/L Normal 97-105 [facility] Comment on above: Performed By: #### C MP, INSLAB, LIPB, CPEPT, GADCAB, B12, VITD, UACR ####[facility] [place], [place] [phone] Creatinine [Mass/Vol] 0.68 mg/dL Normal 0.58-0.96 [facility] Comment on above: Performed By: #### C MP, INSLAB, LIPB, CPEPT, GADCAB, B12, VITD, UACR ####[address] [place], [place] [phone] Glucose [Mass/Vol] 152 mg/dL High 74-99 [facility] Comment on above: Result Comment: The [place] Diabetes Association (ADA) provides guidance for cutoff [...] Standards of Medical Care in Diabetes 2016, [place] Diabetes Association. Diabetes Care. 2016.39(Suppl 1). Performed By: #### C MP, INSLAB, LIPB, CPEPT, GADCAB, B12, VITD, UACR ####[address] [place], [place] [phone] Potassium [Moles/Vol] 4.3 mmol/L Normal 3.7-5.1 [facility] Comment on above: Performed By: #### C MP, INSLAB, LIPB, CPEPT, GADCAB, B12, VITD, UACR ####[facility] [place], [place] [phone] Sodium [Moles/Vol] 140 mmol/L Normal 136-144 [facility] Comment on above: Performed By: #### C MP, INSLAB, LIPB, CPEPT, GADCAB, B12, VITD, UACR ####[facility] [place], [place] [phone] Urea nitrogen [Mass/Vol] 14 mg/dL Normal 7-21 [facility] Comment on above: Performed By: #### C MP, INSLAB, LIPB, CPEPT, GADCAB, B12, VITD, UACR ####[facility] [place], [place] [phone] Albumin [Mass/Vol] 4.5 g/dL Normal 3.9-4.9 [facility] ALP [Catalytic activity/Vol] 83 U/L Normal 34-123 [facility] ALT [Catalytic activity/Vol] 58 U/L High 7-38 [facility] Anion gap [Moles/Vol] 11 mmol/L Normal 9-18 [facility] AST [Catalytic activity/Vol] 34 U/L Normal 13-35 [facility] Bilirubin [Mass/Vol] 0.7 mg/dL Normal 0.2-1.3 [facility] Calcium [Mass/Vol] 9.5 mg/dL Normal 8.5-10.2 [facility] Chloride [Moles/Vol] 103 mmol/L Normal 97-105 [facility] CO2 [Moles/Vol] 24 mmol/L Normal 22-30 [facility] Comment on above: Performed By: #### C MP, INSLAB, LIPB, CPEPT, GADCAB, B12, VITD, UACR ####[facility] [place], [place] [phone] Creatinine [Mass/Vol] 0.67 mg/dL Normal 0.58-0.96 [facility] eGFR- Amer. >60 Normal [facility] Comment on above: Performed By: #### C MP, INSLAB, LIPB, CPEPT, GADCAB, B12, VITD, UACR ####[facility] [place], [place] [phone] eGFR-All Other Races >60 Normal [facility] Comment on above: Result Comment: eGFR [...] INSLAB, LIPB, CPEPT, GADCAB, B12, VITD, UACR ####[facility] [place], [place] [phone] Glucose [Mass/Vol] 161 mg/dL High 74-99 [facility] Comment on above: Result Comment: The [place] Diabetes Association (ADA) provides guidance for cutoff [...] Standards of Medical Care in Diabetes 2016, [place] Diabetes Association. Diabetes Care. 2016.39(Suppl 1). Potassium [Moles/Vol] 4.1 mmol/L Normal 3.7-5.1 [facility] Protein [Mass/Vol] 7.2 g/dL Normal 6.3-8.0 [facility] Comment on above: Performed By: #### C MP, INSLAB, LIPB, CPEPT, GADCAB, B12, VITD, UACR ####[facility] [place], [place] [phone] Sodium [Moles/Vol] 138 mmol/L Normal 136-144 [facility] Urea nitrogen [Mass/Vol] 13 mg/dL Normal 7-21 [facility] Glutamic Ac Decar Abon 09-27 Glutam Ac Dec Ab Ql Negative Normal Negative [facility] Comment on above: Performed By: #### C MP, INSLAB, LIPB, CPEPT, GADCAB, B12, VITD, UACR ####[place] [address] [place], [place] [phone] Glutamic Ac Decar Ab <5.0 Normal <5.1 [facility] Comment on above: Performed By: #### C MP, INSLAB, LIPB, CPEPT, GADCAB, B12, VITD, UACR ####[place] [address] [place], [place] [phone] Insulin Autoantibodyon 09-27 Insulin Ab Ql Negative Normal Negative [facility] Comment on above: Performed By: #### C MP, INSLAB, LIPB, CPEPT, GADCAB, B12, VITD, UACR ####[place] [address] [place], [place] [phone] Insulin Antibody <0.4 Normal <0.4 [facility] Comment on above: Performed By: #### C MP, INSLAB, LIPB, CPEPT, GADCAB, B12, VITD, UACR ####[place] [address], [place] [phone] Lipid Panel, Basicon 021 Cholesterol [Mass/Vol] 110 mg/dL Normal <[address] [facility] Comment on above: Result Comment: <200 mg/dL, Desirable 200-239 mg/dL, Borderline high >239 mg/dL, High Performed By: #### C MP, INSLAB, LIPB, CPEPT, GADCAB, B12, VITD, UACR ####[place] [address] [place], [place] [phone] Cholesterol in HDL [Mass/Vol] 37 mg/dL Low >39 [facility] Comment on above: Result Comment: 40-5 9 mg/dL, Acceptable >59 mg/dL, High: Negative risk factor for coronary heart disease <40 mg/dL, Low: Positive risk factor for coronary heart disease Performed By: #### C MP, INSLAB, LIPB, CPEPT, GADCAB, B12, VITD, UACR ####[place] [phone] Cholesterol in LDL [Mass/Vol] 49 mg/dL Normal <100 [facility] Comment on above: Result Comment: <100 mg/dL, Optimal 100-129 mg/dL, Near optimal/above optimal 130-159 mg/dL, Borderline high 160-189 mg/dL, High >189 mg/dL, Very high Secondary prevention optimal LDL Cholesterol levels are recommended to be < 70 mg/dL Performed By: #### C MP, INSLAB, LIPB, CPEPT, GADCAB, B12, VITD, UACR ####[address] [phone] Fasting Time 12 hrs Normal [facility] Comment on above: Performed By: #### C MP, INSLAB, LIPB, CPEPT, GADCAB, B12, VITD, UACR ####[address] [phone] LDL:HDL Ratio 1.32 Normal <2.54 [facility] Comment on above: Result Comment: Modesta dao: 1. National Cholesterol Education Program ATP III Guideline At-A-Glance Quick Desk Reference: National Heart, Lung, and Blood [place]. National Institutes of Health. 2001: NIH Publication No. 01-3305. 2. An International Atherosclerosis Society position paper: global recommendations for the management of dyslipidemia: executive summary, Atherosclerosis. 2014: 232(2):410-413. Performed By: #### C MP, INSLAB, LIPB, CPEPT, GADCAB, B12, VITD, UACR ####[address] [place], [place] [phone] Non HDL Cholesterol 73 mg/dL Normal <130 [facility] Comment on above: Result Comment: <130 mg/dL, Optimal 130-159 mg/dL, Near optimal/above optimal 160-189 mg/dL, Borderline high 190-219 mg/dL, High >219 mg/dL, Very high Secondary prevention optimal non HDL Cholesterol levels are recommended to be < 100 mg/dL Performed By: #### C MP, INSLAB, LIPB, CPEPT, GADCAB, B12, VITD, UACR ####[address] [phone] TC:HDL Ratio 2.97 Normal <5.10 [facility] Comment on above: Performed By: #### C MP, INSLAB, LIPB, CPEPT, GADCAB, B12, VITD, UACR ####[address] [phone] Triglyceride [Mass/Vol] 121 mg/dL Normal <150 [facility] Comment on above: Result Comment: <150 mg/dL, Normal 150-199 mg/dL, Borderline high 200-499 mg/dL, High >499 mg/dL, Very high Performed By: #### C MP, INSLAB, LIPB, CPEPT, GADCAB, B12, VITD, UACR ####[address] [place], [place] [phone] VLDL Cholesterol 24 mg/dL Normal <30 [facility] Comment on above: Performed By: #### C MP, INSLAB, LIPB, CPEPT, GADCAB, B12, VITD, UACR ####[address] [phone] Vitamin B12on 09-27-2020 Cobalamin (Vitamin B12) [Mass/Vol] 431 pg/mL Normal 232-1245 [facility] Comment on above: Performed By: #### C MP, INSLAB, LIPB, CPEPT, GADCAB, B12, VITD, UACR ####[facility] [place], [place] [phone] Vitamin D 25 Hydroxyon 09-27 Vitamin D 25 Hydroxy 47.2 ng/mL Normal 31.0-80.0 [facility] Comment on above: Result Comment: Clas sification of 25 [place] Vitamin D status: Insufficiency/Moderate Deficiency: < or = 30 ng/mL Sufficiency/Optimal Levels: 31 to 80 ng/mL Toxicity: > 100 ng/mL Test performed by chemiluminescent immunoassay. Performed By: #### C MP, INSLAB, LIPB, CPEPT, GADCAB, B12, VITD, UACR ####[facility] [place], [place] [phone] CNPNiki 09-22-2020 MINNAN Telephone ([place]) -------- IVELISSE GEE ([id number]) 1950 F Date Time Provider Department 09/22/20 [...] Date Reviewed: 09/22/2020 Reviewed by: Mac Perez APRN.QUILL MACHINE TENDER - Fully Assessed Reason for Visit: Lab Orders [9378] Primary Visit Diagnosis:Thrombocytopen ia (HCC) [D69.6] Order(s):CBC + DIFF [SQCBCDIF] Order #: [id number] STANDING COMP METABOLIC PANEL [SQCMP] Order #: [id number] STANDING Prescriptions as of 09/22/2020 Sig: METFORMIN [...] Of Date: 09/22/2020 (None) Encounter Status:Closed by [facility] PEREZ on 09/22/20 Normal [facility] MRI ABDOMEN WO/W IVCONon MRI ABDOMEN WO/W IVCON * * *Final Report * * * DATE OF EXAM: Sep 21 2020 11:45AM [facility] 0689 - MRI ABDOMEN WO/W IVCON [...] 6 months is recommended to assess the usp stability, progression or resolution of the findings. No enhancing pancreatic mass with special attention to the head of the pancreas. 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 5 mm and 9 mm Bosniak type II hemorrhagic cysts at the midpole of the left kidney. Additional subcentimeter renal cysts. Cholecystectomy with mildly dilatation. No choledocholithiasis. Hospitality Associate: SHAHRZAD Transcribe Date/Time: Sep 21 2020 1:58P Dictated by : ANA MARÍA ARAIZA MD This examination was interpreted and the report reviewed and electronically signed by: ANA MARÍA ARAIZA MD on Sep 21 2020 10:19PM EST [id number] Normal [facility] CNPNiki 09-01-2020 CNPN Telephone (HEMASA) -------- IVELISSE GEE ([id number]) 1950 F Date Time Provider Department 09/01/20 [...] Clerical: Please schedule pt for MRI at [facility]. Thank you. BRM: Order pending, please review and sign. MONICO Loiue 09/01/2020 2:24 PM Signed Called patient to inform her that she has been scheduled for MRI @ [facility] on 09/07/20 @ 8:30am. LMOV. 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 Clinical Laboratory Manager (topogram) images: No additional findings. IMPRESSION: 1. [...] any questions regarding this interpretation, please call [phone]. If you are unable to reach us at the number above, please feel free to contact [facility] eRadiology at [phone]. [id number] Normal [facility] Protein Electrophor.on 08-30 Albumin [Mass/Vol] 4.24 g/dL High 3.37-4.23 [facility] Comment on above: Performed By: #### S EPG ####[place] [address] [place] [phone] Alpha 1 Globulin 0.27 gm/dL Normal 0.18-0.31 [facility] Comment on above: Performed By: #### S EPG ####[place] [address] [place], [place] [phone] Alpha 2 Globulin 0.82 gm/dL Normal 0.52-0.97 [facility] Comment on above: Performed By: #### S EPG ####[facility] [address] [place], [place] [phone] Beta Globulin 1.11 gm/dL Normal 0.84-1.36 [facility] Comment on above: Performed By: #### S EPG ####[place] [address] [place], [place] [phone] Gamma Globulin 1.27 gm/dL Normal 0.70-1.44 [facility] Comment on above: Performed By: #### S EPG ####[address] [phone] Interpretation SEE COMMENT [facility] Comment on above: Result Comment: No d efinitive M protein is identified on protein electrophoresis. Performed By: #### S EPG ####[address] [phone] M Protein Location N/A [facility] Comment on above: Performed By: #### S EPG ####[address] [phone] M Shmuel Concentratn 0.00 gm/dL Normal 0.00 [facility] Comment on above: Performed By: #### S EPG ####[address] [phone] Protein [Mass/Vol] 7.7 g/dL Normal 6.3-8.0 [facility] Comment on above: Performed By: #### S EPG ####[address] [phone] SPE Staff Review Reviewed by Audelia Cabrera MD ([id number]) [facility] Comment on above: Performed By: #### S EPG ####[address] [phone] Js 08-23-2020 CNPN Telephone (GRACIEAP) -------- IVELISSE GEE ([id number]) 1950 F Date Time Provider Department 08/23/20 MEHRDAD AGUILAR During your visit today, we recorded the following information about you: Adele Delong 08/23/2020 9:45 AM Signed Marta Cuellar Pss MP ? 9:12 AM Note lvm returning GI's call to call back regarding patient to schedule patient for this referral. August 19, 2020 ? ? 3:53 PM Lorri Keyes Sec routed this conversation to [facility] Clerical Pool Lorri Keyes Sec ? 3:53 PM Note Left message at Dr Magdaleno Cuello [facility] GI. They may ask for me. She needs to be seen for Liver cirrhosis. Please call [phone] to refer this patient if they do not call back to schedule. Tracy Gonzáles [facility] 08/24/2020 10:00 AM Signed Records and referral faxed to [facility]. Marta Cuellar Pss 08/25/2020 1:09 PM [...] Encounter Status:Closed by ADELE DELONG on 09/20/20 [facility] Js 08-22-2020 [facility] Telephone ([facility] -------- IVELISSE GEE ([id number]) 1950 F Date Time Provider Department 08/22/20 MEHRDAD AGUILAR During your visit today, we recorded the following information about you: Allergies As of Date: 08/22/2020 Noted Allergy Reaction SULFA (SULFONAMIDE ANTIBIOTICS) 09/05/2016 10 - Anaphylaxis LATEX, NATURAL RUBBER 09/06/2016 16 - Unknown Comments: Only bandaids Date Reviewed: 08/19/2020 Reviewed by: Carlos Brewer MA - Fully Assessed Reason for Visit: Patient Question [1040] Prescriptions as of 08/22/2020 Sig: METFORMIN ER [...] Encounter Status:Closed by MARTA GARCES on 08/22/20 [facility] CNOVSPon 08-19-2020 CNOVSP Visit (SP) Office ([place]AS[place]) -------- IVELISSE GEE ([id number]) 1950 F Date Time Provider Department 08/19/20 11:15 AM MEHRDAD AGUILAR During your visit today, we recorded the following information about you: Temperature Pulse Respiration Blood pressure 98.2 degrees 88/minute 16/minute 130/56 Weight Height 74 kg 1.57 m Mehrdad Aguilar MD 08/20/2020 1:40 PM Signed PATIENT NAME: Ivelisse Gee DATE: 08/19/2020 PRIMARY CARE PHYSICIAN: Carmen Conley MD OTHER PHYSICIANS: Dr. Wahl ((PCP [place], [place]) HPI: This is a 70 year [...] requiring hospitalization, most recently while residing in [place] in June 2020. During her recent hospitalization labs revealed persistent thrombocytopenia with a platelet count ranging from 80-90,000. The patient is currently referred for evaluation of her abnormal CBC. Since the patient's hospitalization she started ihmf-rqg-lzbmcxa supplements including multivitamin. She has had no [...] intolerance, urinar (more content not included)... Normal [facility] IVELISSE GEE ([id number]) 1950 F Date Time Provider Department 08/19/20 JESSIE ACUÑA (RN) [place] During your visit today, we recorded the following information about you: Jessie Acuña 08/19/2020 12:27 PM Signed Please sign pending CAP CTs w/IVCON for Ivelisse Gee [id number] who was added to the schedule for scans on 08/30. Thanks KAMALJIT Zepeda, RN Mehrdad Aguilar MD 08/19/2020 12:41 PM Signed Actually we just need CT abd/pelvis LIONEL Aucña 08/19/2020 1:07 PM Signed Noted to have [...] lymph node [R59.9] Order(s):CT ABD/PEL W IVCON [[id number]] Order #: [id number] FUTURE iv contrast (will be provided with [...] Status:Closed by JESSIE ACUÑA on 08/19/20 Normal [facility] Comp Metabolic Panelon 08-19 Albumin [Mass/Vol] 4.7 g/dL Normal 3.9-4.9 [facility] ALP [Catalytic activity/Vol] 93 U/L Normal 34-123 [facility] ALT [Catalytic activity/Vol] 56 U/L High 7-38 [facility] Anion gap [Moles/Vol] 12 mmol/L Normal 9-18 [facility] AST [Catalytic activity/Vol] 40 U/L High 13-35 [facility] Bilirubin [Mass/Vol] 0.9 mg/dL Normal 0.2-1.3 [facility] Calcium [Mass/Vol] 9.8 mg/dL Normal 8.5-10.2 [facility] Chloride [Moles/Vol] 102 mmol/L Normal 97-105 [facility] CO2 [Moles/Vol] 22 mmol/L Normal 22-30 [facility] Creatinine [Mass/Vol] 0.66 mg/dL Normal 0.58-0.96 [facility] eGFR- Amer. >60 Normal [facility] eGFR-All Other Races >60 Normal [facility] Comment on above: Result Comment: eGFR [...] GFR. Glucose [Mass/Vol] 258 mg/dL High 74-99 [facility] Comment on above: Result Comment: The [place] Diabetes Association (ADA) provides guidance for cutoff [...] Standards of Medical Care in Diabetes 2016, [place] Diabetes Association. Diabetes Care. 2016.39(Suppl 1). Potassium [Moles/Vol] 4.3 mmol/L Normal 3.7-5.1 [facility] Protein [Mass/Vol] 8.0 g/dL Normal 6.3-8.0 [facility] Sodium [Moles/Vol] 136 mmol/L Normal 136-144 [facility] Urea nitrogen [Mass/Vol] 13 mg/dL Normal 7-21 [facility] Ferritinon 08-19-2020 Ferritin [Mass/Vol] 184.0 ng/mL Normal 14.7-205.1 [facility] Comment on above: Performed By: #### F ERR, IRON ####[place] [address], [place] [phone] Iron and TIBCon 08-19-2020 Iron [Mass/Vol] 116 ug/dL Normal 41-186 [facility] Comment on above: Performed By: #### F ERR, IRON ####[place] [address], [place] [phone] TIBC 357 ug/dL Normal 232-386 [facility] Comment on above: Performed By: #### F ERR, IRON ####[address] [place], [place] [phone] Transferrin Saturatn 32 % Normal 15-57 [facility] Comment on above: Performed By: #### F ERR, IRON ####[address] [place], [place] [phone] LDon 08-19-2020 LD 171 U/L Normal 135-214 [facility] Monclnl Protein, Seron 08-19 K/L Ratio, Serum 1.43 Normal 0.26-1.65 [facility] Comment on above: Performed By: #### S ERMPA, B12 ####[address] [phone] [place], Free, Serum 28.3 mg/L High 3.30-19.40 [facility] Comment on above: Result Comment: Test performed by an immunoturbidimetric assay on PolyServe instrument from [facility]. Immunoglobulin free light chain assay results should be interpreted in conjunction with other tests and in correlation with clinical picture. Performed By: #### S ANGELICA B12 ####[place] [address] [place] [phone] Lambda, Free, Serum 19.8 mg/L Normal 5.7-26.3 [facility] Comment on above: Result Comment: Test performed by an immunoturbidimetric assay on Optilite instrument from [facility]. Immunoglobulin free light chain assay results should be interpreted in conjunction with other tests and in correlation with clinical picture. Performed By: #### S ANGELICA B12 ####[address] [place] [phone] MPA Interpretation SEE COMMENT Normal [facility] Comment on above: Result Comment: Poor [...] Clinical correlation is necessary. Performed By: #### Marlee DOMINGUEZ B12 ####[address] [place] [phone] MPA Result A poorly defined reg ion of restricted mobility is present that may represent an M protein. Critically abnormal No M protein is identified . [facility] Comment on above: Performed By: #### S ANGELICA B12 ####[facility] [place] [phone] MPA Serum IgA 196 mg/dL Normal 70-400 [facility] Comment on above: Performed By: #### S ANGELICA, B12 ####[facility] [phone] MPA Serum IgG 1243 mg/dL Normal 700-1600 [facility] Comment on above: Performed By: #### S ANGELICA, B12 ####[place] [address] [place], [place] [phone] MPA Serum IgM 58 mg/dL Normal 40-230 [facility] Comment on above: Performed By: #### S ANGELICA, B12 ####[facility] [place], [place] [phone] Staff Review Reviewed by Audelia Cabrera MD ([id number]) Normal [facility] Comment on above: Performed By: #### S ANGELICA, B12 ####[facility] [place], [place] [phone] Remote CBCDIF (for [facility] use o nly)on 08-19-2020 Abs Baso <0.03 Normal <0.11 [facility] Abs Mckinley 0.33 k/uL Normal <0.87 [facility] Abs Neut 3.89 k/uL Normal 1.45-7.50 [facility] Absolute nRBC <0.01 Normal <0.01 [facility] Basophils/100 WBC (Bld) 0.3 % Normal C [facility] DTYPE Auto Diff Normal [facility] Eosinophils (Bld) [#/Vol] 0.14 10*3/uL Normal <0.46 [facility] Eosinophils/100 WBC (Bld) 2.0 % Normal [facility] Erythrocyte distribution width (RBC) [Ratio] 12.8 % Normal 11.5-15.0 [facility] Hematocrit (Bld) [Volume fraction] 40.5 % Normal 36.0-46.0 [facility] Hemoglobin (Bld) [Mass/Vol] 13.8 g/dL Normal 11.5-15.5 [facility] Lymphocytes (Bld) [#/Vol] 2.71 10*3/uL Normal 1.00-4.00 [facility] Lymphocytes/100 WBC (Bld) 38.1 % Normal [facility] MCH 31.2 pG Normal 26.0-34.0 [facility] MCHC (RBC) [Mass/Vol] 34.1 g/dL Normal 30.5-36.0 [facility] MCV (RBC) [Entitic vol] 91.4 fL Normal 80.0-100.0 C [facility] Monocytes/100 WBC (Bld) 4.6 % Normal C [facility] Neutrophils/100 WBC (Bld) 55.0 % Normal [facility] NRBCs 0.0 /100 WBC Normal 0 [facility] Platelet mean volume (Bld) [Entitic vol] 9.7 fL Normal 9.0-12.7 [facility] Platelets (Bld) [#/Vol] 170 10*3/uL Normal 150-400 [facility] RBC (Bld) [#/Vol] 4.43 10*6/uL Normal 3.90-5.20 [facility] WBC (Bld) [#/Vol] 7.11 10*3/uL Normal 3.70-11.00 [facility] Reticulocyteon 08-19-2020 Abs Retic 0.096 M/uL Normal 0.0180-0.1 000 [facility] Retic% 2.2 % High 0.4-2.0 [facility] Vitamin B12on 08-19-2020 Cobalamin (Vitamin B12) [Mass/Vol] 421 pg/mL Normal 232-1245 [facility] Comment on above: Performed By: #### S ERMSANTO, B12 ####[facility] [address] [place], [place] [phone] Vital Signs Date Time Vital Sign Value Performing Clinician Faci lity 10-08-2023 13:29-0400 Diastolic blood pressure 80 mm[Hg] Dontae Hernández [facility] 10-08-2023 13:29-0400 Heart rate 79 /min Dontae Hernández [facility] 10-08-2023 13:29-0400 Respiratory rate 20 /min Dontae Hernández [facility] 10-08-2023 13:29-0400 SaO2% (BldA) [Mass fraction] 94 % Dontae Hernández [facility] 10-08-2023 13:29-0400 Systolic blood pressure 134 mm[Hg] Dontae Hernández [facility] 09-05-2023 10:12-0400 Diastolic blood pressure 86 mm[Hg] Dontae Hernández [facility] 09-05-2023 10:12-0400 Mean blood pressure 105 mm[Hg] Dontae Hernández [facility] 09-05-2023 10:12-0400 Systolic blood pressure 142 mm[Hg] Dontae Hernández [facility] 09-05-2023 10:01-0400 Blood Pressure Location Dontae Hernández [facility] 09-05-2023 10:01-0400 Diastolic blood pressure 88 mm[Hg] Dontae Hernández [facility] 09-05-2023 10:01-0400 Heart rate 82 /min Dontae Hernández [facility] 09-05-2023 10:01-0400 SaO2% (BldA) [Mass fraction] 97 % Dontae Hernández [facility] 09-05-2023 10:01-0400 Systolic blood pressure 142 mm[Hg] Dontae Hernández [facility] 07-24-2023 13:50-0400 Blood Pressure Location Shaun Goode [facility] 07-24-2023 13:50-0400 Diastolic blood pressure 77 mm[Hg] Shaun Goode [facility] 07-24-2023 13:50-0400 Heart rate 85 /min Shaun Goode [facility] 07-24-2023 13:50-0400 Respiratory rate 16 /min Shaun Goode [facility] 07-24-2023 13:50-0400 Systolic blood pressure 135 mm[Hg] Mohamad Mouchli [facility] 07-02-2023 09:50-0400 Diastolic blood pressure 72 mm[Hg] Mohamad Mouchli [facility] 07-02-2023 09:50-0400 Heart rate 82 /min Mohamad Mouchli [facility] 07-02-2023 09:50-0400 Mean blood pressure 97 mm[Hg] Mohamad Mouchli [facility] 07-02-2023 09:50-0400 Respiratory rate 17 /min Mohamad Mouchli [facility] 07-02-2023 09:50-0400 SaO2% (BldA) [Mass fraction] 94 % Mohamad Mouchli [facility] 07-02-2023 09:50-0400 Systolic blood pressure 148 mm[Hg] Mohamad Mouchli [facility] 07-02-2023 09:40-0400 Diastolic blood pressure 72 mm[Hg] Mohamad Mouchli [facility] 07-02-2023 09:40-0400 Heart rate 80 /min Mohamad Mouchli [facility] 07-02-2023 09:40-0400 Mean blood pressure 92 mm[Hg] Mohamad Mouchli [facility] 07-02-2023 09:40-0400 Respiratory rate 11 /min Mohamad Mouchli [facility] 07-02-2023 09:40-0400 SaO2% (BldA) [Mass fraction] 93 % Mohamad Mouchli [facility] 07-02-2023 09:40-0400 Systolic blood pressure 132 mm[Hg] Mohamad Mouchli [facility] 07-02-2023 09:35-0400 Diastolic blood pressure 62 mm[Hg] Mohamad Mouchli [facility] 07-02-2023 09:35-0400 Heart rate 86 /min Mohamad Mouchli [facility] 07-02-2023 09:35-0400 Mean blood pressure 90 mm[Hg] Mohamad Mouchli [facility] 07-02-2023 09:35-0400 Respiratory rate 15 /min Mohamad Mouchli [facility] 07-02-2023 09:35-0400 SaO2% (BldA) [Mass fraction] 93 % Mohamad Mouchli [facility] 07-02-2023 09:35-0400 Systolic blood pressure 147 mm[Hg] Mohamad Mouchli [facility] 07-02-2023 09:25-0400 Body temperature 97.16 [degF] Mohamad Mouchli [facility] 07-02-2023 08:43-0400 Blood Pressure Location Mohamad Mouchli [facility] 07-02-2023 08:43-0400 Body temperature 96.8 [degF] Mohamad Mouchli [facility] 06-26-2023 12:17-0400 Blood Pressure Location Mohamad Mouchli [facility] 06-26-2023 12:17-0400 Diastolic blood pressure 82 mm[Hg] Mohamad Mouchli [facility] 06-26-2023 12:17-0400 Heart rate 80 /min Mohamad Mouchli [facility] 06-26-2023 12:17-0400 Respiratory rate 16 /min Ramyad Mouchli [facility] 06-26-2023 12:17-0400 Systolic blood pressure 138 mm[Hg] Ramyad Mouchli [facility] 06-21-2023 13:44-0400 Diastolic blood pressure 68 mm[Hg] Deonte Blancbabatunde [facility] 06-21-2023 13:44-0400 Heart rate 96 /min Deonte Peraza [facility] 06-21-2023 13:44-0400 SaO2% (BldA) [Mass fraction] 95 % Deonte Soteroofferson [facility] 06-21-2023 13:44-0400 Systolic blood pressure 138 mm[Hg] Deonte Blancerson [facility] 03-21-2023 13:30-0500 Body height 153.67 cm Carmen Conley Other [employer] Other 03-21-2023 13:30-0500 Body mass index (BMI) [Ratio] 30.54 kg/m2 Carmen Conley Other [employer] Other 03-21-2023 13:30-0500 Body weight 72.12 kg Carmen Conley Other [employer] Other 03-21-2023 13:30-0500 Diastolic blood pressure 79 mm[Hg] Carmen Conley Other [employer] Other 03-21-2023 13:30-0500 Systolic blood pressure 136 mm[Hg] Carmen Conley Other [employer] Other 01-24-2023 11:15-0400 Body height 153.67 cm Carmen Conley Other [employer] Other 01-24-2023 11:15-0400 Body mass index (BMI) [Ratio] 29.58 kg/m2 Carmen Conley Other [employer] Other 01-24-2023 11:15-0400 Body temperature 97.7 [degF] Carmen Conley Other [employer] Other 01-24-2023 11:15-0400 Body weight 69.85 kg Carmen Conley Other [employer] Other 01-24-2023 11:15-0400 Diastolic blood pressure 80 mm[Hg] Carmen Conley Other [employer] Other 01-24-2023 11:15-0400 SaO2% (BldA) [Mass fraction] 97 % Carmen Conley Other [employer] Other 01-24-2023 11:15-0400 Systolic blood pressure 137 mm[Hg] Carmen Conley Other [employer] Other 12-28-2022 13:30-0400 Body height 153.67 cm Carmen Conley Other [employer] Other 12-28-2022 13:30-0400 Body mass index (BMI) [Ratio] 29.96 kg/m2 Carmen Conley Other [employer] Other 09-22-2023 13:30-0400 Body weight 70.76 kg Carmen Conley Other [employer] Other 12-28-2022 13:30-0400 Diastolic blood pressure 64 mm[Hg] Carmen Conley Other [employer] Other 12-28-2022 13:30-0400 Systolic blood pressure 106 mm[Hg] Carmen Conley Other [employer] Other 08-07-2022 12:45-0400 Body height 153.67 cm Carmen Conley Other [employer] Other 08-07-2022 12:45-0400 Body mass index (BMI) [Ratio] 30.15 kg/m2 Carmen Conley Other [employer] Other 08-07-2022 12:45-0400 Body temperature 98.1 [degF] Carmen Conley Other [employer] Other 08-07-2022 12:45-0400 Body weight 71.22 kg Carmen Conley Other [employer] Other 08-07-2022 12:45-0400 Diastolic blood pressure 72 mm[Hg] Carmen Conley Other [employer] Other 08-07-2022 12:45-0400 SaO2% (BldA) [Mass fraction] 97 % Carmen Conley Other [employer] Other 08-07-2022 12:45-0400 Systolic blood pressure 132 mm[Hg] Carmen Conley Other [employer] Other 06-20-2022 12:00-0400 Body height 153.67 cm Carmen Conley Other [employer] Other 06-20-2022 12:00-0400 Body mass index (BMI) [Ratio] 30.54 kg/m2 Carmen Conley Other [employer] Other 06-20-2022 12:00-0400 Body weight 72.12 kg Carmen Conley Other [employer] Other 06-20-2022 12:00-0400 Diastolic blood pressure 70 mm[Hg] Carmen Conley Other [employer] Other 06-20-2022 12:00-0400 SaO2% (BldA) [Mass fraction] 98 % Carmen Conley Other [employer] Other 06-20-2022 12:00-0400 Systolic blood pressure 118 mm[Hg] Carmen Conley Other [employer] Other 06-12-2022 09:30-0500 Body height 153.67 cm Carmen Conley Other [employer] Other 06-12-2022 09:30-0500 Body mass index (BMI) [Ratio] 30.54 kg/m2 Carmen Conley Other [employer] Other 06-12-2022 09:30-0500 Body weight 72.12 kg Carmen Conley Other [employer] Other 06-12-2022 09:30-0500 Diastolic blood pressure 64 mm[Hg] Carmen Conley Other [employer] Other 06-12-2022 09:30-0500 SaO2% (BldA) [Mass fraction] 97 % Carmen Conley Other [employer] Other 06-12-2022 09:30-0500 Systolic blood pressure 116 mm[Hg] Carmen Conley Other [employer] Other 05-10-2022 11:00-0500 Body height 153.67 cm Carmen Conley Other [employer] Other 05-10-2022 11:00-0500 Body mass index (BMI) [Ratio] 30.54 kg/m2 Carmen Conley Other [employer] Other 05-10-2022 11:00-0500 Body weight 72.12 kg Carmen Conley Other [employer] Other 05-10-2022 11:00-0500 Diastolic blood pressure 62 mm[Hg] Carmen Conley Other [employer] Other 05-10-2022 11:00-0500 SaO2% (BldA) [Mass fraction] 97 % Carmen Conley Other [employer] Other 05-10-2022 11:00-0500 Systolic blood pressure 118 mm[Hg] Carmen Conley Other [employer] Other 04-20-2022 11:30-0500 Body height 153.67 cm Carmen Conley Other [employer] Other 04-20-2022 11:30-0500 Body mass index (BMI) [Ratio] 30.54 kg/m2 Carmen Conley Other [employer] Other 04-20-2022 11:30-0500 Body weight 72.12 kg Carmen Conley Other [employer] Other 04-20-2022 11:30-0500 Diastolic blood pressure 80 mm[Hg] Carmen Conley Other [employer] Other 04-20-2022 11:30-0500 SaO2% (BldA) [Mass fraction] 97 % Carmen Conley Other [employer] Other 04-20-2022 11:30-0500 Systolic blood pressure 126 mm[Hg] Carmen Conley Other [employer] Other 04-16-2022 15:15-0500 Body height 153.67 cm Carmen Conley Other [employer] Other 04-16-2022 15:15-0500 Body mass index (BMI) [Ratio] 30.35 kg/m2 Carmen Conley Other [employer] Other 04-16-2022 15:15-0500 Body weight 71.67 kg Carmen Conley Other [employer] Other 04-16-2022 15:15-0500 Diastolic blood pressure 82 mm[Hg] Carmen Conley Other [employer] Other 04-16-2022 15:15-0500 SaO2% (BldA) [Mass fraction] 97 % Carmen Conley Other [employer] Other 04-16-2022 15:15-0500 Systolic blood pressure 136 mm[Hg] Carmen Conley Other [employer] Other Encounters Encounter Date Encounter Type Care Provider Facility Start: 11-25-2023 End: 11-25-2023 ambulatory Nohemy Mohamud MD [facility] Start: 10-28-2023 End: 10-28-2023 ambulatory Nohemy Mohamud MD [facility]: [facility] Start: 10-08-2023 End: 10-08-2023 ambulatory PA-C Dontae Hernández Facility:[facility] Start: 10-08-2023 End: 10-08-2023 Patient encounter procedure Dontae Hernández [facility] Start: 10-01-2023 End: 10-01-2023 ambulatory PA-C Dontae Hernández Facility:[facility] Start: 10-01-2023 End: 10-01-2023 Patient encounter procedure Dontae Hernández [facility] Start: 09-05-2023 End: 09-05-2023 ambulatory XXXX NONE Facility:[facility] Start: 09-05-2023 End: 09-05-2023 Patient encounter procedure Dontae Hernández [facility] Start: 08-05-2023 End: 08-05-2023 ambulatory Deonte Peraza Facility:[facility] Start: 08-05-2023 End: 08-05-2023 Patient encounter procedure Deonte Peraza [facility] Start: 08-01-2023 End: 08-16-2023 Pre-admission assessment Deonte Peraza [facility] Start: 07-24-2023 End: 08-07-2023 Pre-admission assessment Shaun Goode [facility] Start: 07-24-2023 End: 07-24-2023 ambulatory Shaun Goode Facility:[facility] Start: 07-24-2023 End: 07-24-2023 Patient encounter procedure Shaun Goode [facility] Start: 07-02-2023 End: 07-02-2023 ambulatory Shaun Goode Facility:[facility] Start: 07-02-2023 End: 07-02-2023 Patient encounter procedure Shaun Goode [facility] Start: 06-26-2023 End: 06-26-2023 ambulatory Shaun Goode Facility:[facility] Start: 06-26-2023 End: 06-26-2023 Patient encounter procedure Shaun Wildmaximo [facility] Start: 06-26-2023 End: 06-26-2023 ambulatory Shaun WolfeJeff Junitomaximo [facility] Start: 06-26-2023 End: 06-26-2023 Patient encounter procedure Shaun WolfeJeff Junitomaximo [facility] Start: 06-21-2023 End: 06-21-2023 ambulatory Deonte Peraza Facility:[facility] Start: 06-21-2023 End: 06-21-2023 Patient encounter procedure Deonte Peraza [facility] Start: 06-18-2023 End: 06-18-2023 ambulatory MD Lucho GOINS Facility:[facility] Start: 06-18-2023 End: 06-18-2023 Patient encounter procedure CARMEN CONLEY [facility] Start: 06-13-2023 ambulatory JANUSZ Turner ity:[facility] Start: 05-14-2023 End: 05-14-2023 ambulatory Carmen Conley Other [employer] Other Start: 05-14-2023 Telephone encounter Carmen Conley [facility] Start: 04-16-2023 End: 04-16-2023 ambulatory ZULEIMA A FELTER Not Available Start: 04-03-2023 End: 04-03-2023 ambulatory Carmen Conley Other [employer] Other Start: 04-03-2023 Telephone encounter Carmen Conley [facility] Start: 04-02-2023 End: 04-02-2023 ambulatory Carmen Yael Other [employer] Other Start: 04-02-2023 Telephone encounter Carmen Conley [facility] Start: 03-21-2023 End: 03-21-2023 ambulatory Carmen Yael Other [employer] Other Start: 03-21-2023 Office outpatient vi sit 15 minutes Carmen Conley [facility] Start: 03-21-2023 Telephone encounter Carmen Conley [facility] Start: 03-04-2023 End: 03-04-2023 ambulatory ZULEIMA Wolfe FELTER Not Available Start: 02-06-2023 End: 02-06-2023 ambulatory Carmen Conley Other [employer] Other Start: 02-06-2023 Telephone encounter Carmen Conley [facility] Start: 02-01-2023 End: 02-01-2023 ambulatory Carmen Conley Other [employer] Other Start: 02-01-2023 Telephone encounter Carmen Conley [facility] Start: 01-24-2023 End: 01-24-2023 ambulatory Carmen Conley Other [employer] Other Start: 01-24-2023 Office outpatient vi sit 15 minutes Carmen Conley [facility] Start: 01-17-2023 End: 01-17-2023 ambulatory Carmen Conley Other [employer] Other Start: 01-17-2023 Telephone encounter Carmen Conley [facility] Start: 01-01-2023 End: 01-01-2023 ambulatory Carmen Conley Other [employer] Other Start: 01-01-2023 Telephone encounter Carmen Conley [facility] Start: 12-28-2022 End: 12-28-2022 ambulatory Camren Conley Other [employer] Other Start: 12-28-2022 Patient encounter procedure Carmen Conley [facility] Start: 10-04-2022 End: 10-04-2022 ambulatory Carmen Conley Other [employer] Other Start: 10-04-2022 Telephone encounter Carmen Conley [facility] Start: 08-09-2022 End: 08-09-2022 ambulatory Carmen Conley Other [employer] Other Start: 08-09-2022 Telephone encounter Carmen Conley [facility] Start: 08-08-2022 Telephone encounter Carmen Yael [facility] Start: 08-08-2022 End: 08-09-[address] CARMEN CONLEY [employer] Other Start: 08-07-2022 End: 08-07-2022 ambulatory Carmen Conley Other [employer] Other Start: 08-07-2022 Office outpatient vi sit 15 minutes Carmen Conley [facility] Start: 07-31-2022 End: 07-31-2022 ambulatory Carmen Conley Other [employer] Other Start: 07-31-2022 Telephone encounter Carmen Conley [facility] Start: 07-24-2022 End: 07-24-2022 ambulatory Carmen Conley Facility:[facility] Start: 07-02-2022 End: 07-03-[address] CARMEN CONLEY Facility: Start: 06-20-2022 End: 06-20-2022 ambulatory Carmen Conley Other [employer] Other Start: 06-20-2022 Office outpatient vi sit 10 minutes Carmen Conley [facility] Start: 06-14-2022 End: 06-14-2022 ambulatory Carmen Conley Other [employer] Other Start: 06-14-2022 Telephone encounter Carmen Conley [facility] Start: 06-12-2022 Office outpatient vi sit 15 minutes Carmen Conley [facility] Start: 06-12-2022 End: 06-13-[address] CARMEN CONLEY [employer] Other Start: 05-10-2022 End: 05-10-2022 ambulatory Carmen Conley Other [employer] Other Start: 05-10-2022 Office outpatient vi sit 15 minutes Carmen Conley [facility] Start: 05-10-2022 Telephone encounter Carmen Conley [facility] Start: 05-03-2022 End: 05-03-2022 ambulatory Carmen Conley Other [employer] Other Start: 05-03-2022 Telephone encounter Carmen Conley [facility] Start: 04-23-2022 End: 04-24-[address] CARMEN CONLEY Facility: Start: 04-20-2022 End: 04-20-2022 ambulatory Carmen Conley Other [employer] Other Start: 04-20-2022 Office outpatient vi sit 25 minutes Carmen Conley [facility] Start: 04-17-2022 End: 04-17-2022 ambulatory Carmen Conley Other [employer] Other Start: 04-17-2022 Telephone encounter Carmen Conley [facility] Start: 04-16-2022 End: 04-16-2022 ambulatory Carmen Conley Other [employer] Other Start: 04-16-2022 Office outpatient vi sit 25 minutes Carmen MCCLAIN [facility] Start: 04-12-2022 End: 04-13-[address] CARMEN [...] 09-21-2020 Subsequent hospital visit by physician [facility] (Lg Bore/1.5t) Radiology MRI Comment on above: [...] Goode Urinary bladder stru cture (body structure) Shuan Goode Comment on above: 15/20 years ago Plan of Treatment Date Care Activity Detail Author Start: 09-27-2025 Lipid 1996 panel - Serum or Plasma Lipid Screening [facility] Start: 09-27-2025 LIPID SCREEN LIPID SCREEN [facility] Start: 01-08-2024 [facility] Start: 09-28-2023 DIABETES SCREEN DIABETES SCREEN [facility] Start: 09-28-2023 Diabetes Screening Diabetes Screening [facility] Start: 12-07-2022 Influenza vaccination Influenza Vaccine (#1) [facility] Start: 04-08-2022 Advance Directive Discussion Advance Directive Discussion [facility] Start: 04-08-2022 Depression Assessment Depression Assessment [facility] Start: 12-07-2021 Influenza vaccination INFLUENZA (Season Ended) [facility] Start: 09-30-2021 Adult depression screening assessment DEPRESSION SCREENING [facility] Start: 04-08-2021 ADVANCE DIRECTIVE DISCUSSION ADVANCE DIRECTIVE DISCUSSION [facility] Start: 02-17-2020 Pneumococcal Vaccine: 65+ (3 - PPSV23 or PCV20) Pneumococcal Vaccine: 65+ (3 - PPSV23 or PCV20) [facility] Start: 01-07-2016 PNEUMOVAX AGE 65 AND OVER WITH 5YR LOOKBACK (#1) PNEUMOVAX AGE 65 AND OVER WITH 5YR LOOKBACK (#1) [facility] Start: 03-31-2015 SHINGRIX VACCINE (2 of 3) SHINGRIX VACCINE (2 of 3) [facility] Start: 2014 BONE DENSITY BONE DENSITY [facility] Start: 2014 Bone Density Screening Bone Density Screening [facility] Start: 2009 RSV Vaccine (1 - 1-dose 60+ series) RSV Vaccine (1 - 1-dose 60+ series) [facility] Start: 1994 COLOGUARD (FIT-DNA) COLOGUARD (FIT-DNA) [facility] Start: 1994 Colonoscopy COLONOSCOPY [facility] Start: 1994 COLORECTAL CANCER SCREENING COLORECTAL CANCER SCREENING [facility] Start: [address] COLONOGRAPHY [facility] Start: 1994 FECAL OCCULT BLOOD FECAL OCCULT BLOOD [facility] Start: 1994 SIGMOIDOSCOPY SIGMOIDOSCOPY [facility] Start: 1989 Mammography [facility] Start: 1968 HEPATITIS B (1 of 3 - Risk 3-dose series) HEPATITIS B (1 of 3 - Risk 3-dose series) [facility] Start: 1968 Urine microalbumin profile [facility] Start: 08-04-1967 HEPATITIS C SCREENING HEPATITIS C SCREENING [facility] Start: 1954 COVID-19 VACCINE (1) COVID-19 VACCINE (1) [facility] Start: 1950 HEPATITIS A (1 of 2 - Risk 2-dose series) HEPATITIS A (1 of 2 - Risk 2-dose series) [facility] Start: 02-02-1950 Covid-19 Vaccine (#1) Covid-19 Vaccine (#1) [facility] Immunizations Immunization Date Immunization Notes Care Provider Fa cili 12-28-2022 pneumococcal polysaccharide vaccine, 23 valent Carmen Conley Other [employer] Other 12-28-2022 influenza, high dose seasonal, preservative-free Carmen Conley Other [employer] Other 07-04-2020 COVID-19 Vaccine Moderna - Documentation Purposes Only Carmen Conley Other [employer] Other 01-07-2020 influenza, high dose seasonal, preservative-free Mehrdad Aguilar MD Work Phone: [facility] 01-07-2020 influenza virus vaccine, unspecified formulation Mri Bore/1.5t) [facility] 11-27-2019 influenza virus vaccine, split virus (incl. purified surface antigen) Carmen Conley Other [employer] Other 01-06-2019 influenza, high dose seasonal, preservative-free Mehrdad Aguilar MD Work Phone: [facility] 01-01-2019 influenza virus vaccine, split virus (incl. purified surface antigen) Carmen Conley Other [employer] Other 01-01-2019 influenza virus vaccine, unspecified formulation Shaun Goode [facility] 01-01-2019 Seasonal trivalent influenza vaccine, adjuvanted, preservative free Mehrdad Aguilar MD Work Phone: [facility] 01-13-2018 influenza nasal, unspecified formulation Mehrdad Aguilar MD Work Phone: [facility] 12-17-2017 influenza virus vaccine, unspecified formulation Yvetteamaemmy Goode [facility] 12-17-2017 influenza, high dose seasonal, preservative-free Mehrdad Aguilar MD Work Phone: [facility] 02-05-2017 influenza, high dose seasonal, preservative-free Mehrdad Aguilar MD Work Phone: [facility] 04-09-2016 influenza virus vaccine, unspecified formulation Yvetteamaemmy Junitomaximo [facility] 04-09-2016 influenza, injectabl e, quadrivalent, preservative free Mehrdad Aguilar MD Work Phone: [facility] 03-05-2016 influenza, high dose seasonal, preservative-free Mehrdad Aguilar MD Work Phone: [facility] 02-16-2015 influenza, high dose seasonal, preservative-free Mehrdad Aguilar MD Work Phone: [facility] 02-16-2015 pneumococcal conjuga te vaccine, 13 valent Mehrdad Aguilar MD Work Phone: [facility] 02-03-2015 zoster vaccine, live Mehrdad lacey MD Work Phone: [facility] 02-02-2015 influenza, high dose seasonal, preservative-free Mehrdad Aguilar MD Work Phone: [facility] 02-02-2015 pneumococcal conjuga te vaccine, 13 aubrey Aguilar MD Work Phone: [facility] 03-24-2014 influenza, injectabl e, quadrivalent, contains preservative Mehrdad Aguilar MD Work Phone: [facility] 01-06-2013 influenza, high dose seasonal, preservative-free Mehrdad Aguilar MD Work Phone: [facility] 01-06-2011 pneumococcal polysaccharide vaccine, 23 aubrey Aguilar MD Work Phone: [facility] Payers Date Payer Category Payer Self-pay 2020 Private Health Insurance [facility] INDEMNITY [id number] 2020-Present [phone] [address] [place] [address] Indemnity [id number] 2020 Private Health Insurance [id number] 2006 Medicare MEDICARE RAILROA D MEDICARE RAILROAD PB ONLY [id number] 2006-Present [phone] [address] [address] [place] [address] Medicare [id number] 2006 Medicare MEDICARE MEDICAR E A AND B [id number] 2006-Present [phone] [address] [address] [place] [address] Medicare [id number] 2006 Unknown 1959 Medicare [id number] 1959 Private Health Insurance [id number] 2.16.840.1.341068.19 1949 Unknown [id number] 2.16.840.1.075200.3.579. 2.593 1949 Unknown [id number] 2.16.840.1.177656.3.579. 2.593 1949 Unknown [id number] 2.16.840.1.711482.3.579. 2.593 1949 Unknown [id number] 2.16.840.1.438308.3.579. 2.593 1949 Unknown [id number] 2.16.840.1.939999.3.579. 2.593 1949 Unknown [id number] 2.16.840.1.361013.3.579. 2.593 1949 Unknown [id number] 2.16.840.1.674987.3.579. 2.593 1949 Unknown [id number] 2.16.840.1.729248.3.579. 2.593 1949 Unknown [id number] 2.16.840.1.413610.3.579. 2.593 1949 Unknown [id number] 2.16.840.1.038454.3.579. 2.1259 1949 Unknown [id number] 2.16840.1.751792.3.579. 2.1259 1949 Unknown [id number] 2.16.840.1.388752.3.579. 2.727 1949 Unknown [id number] 2.16.840.1.940950.3.579. 2.727 1949 Unknown [id number] 2.16.840.1.133434.3.579. 2.727 1949 Unknown [id number] 2.16.840.1.751933.3.579. 2.727 1949 Unknown [id number] 2.16.840.1.565060.3.579. 2.727 1949 Unknown [id number] 2.16.840.1.995904.3.579. 2.727 1949 Unknown [id number] 2.16.840.1.532223.3.579. 2.727 1949 Unknown [id number] 2.16.840.1.028983.3.579. 2.727 1949 Unknown [id number] 2.16.840.1.097012.3.579. 2.727 1949 Unknown [id number] 2.16.840.1.377510.3.579. 2.727 1949 Unknown [id number] 2.16.840.1.952658.3.579. 2.727 1949 Unknown [id number] 2.16.840.1.473925.3.579. 2.727 1949 Unknown [id number] 2.16.840.1.336665.3.579. 2.196 1949 Unknown [id number] 2.16.840.1.084003.3.579. 2.196 Unknown [id number] 2.16.840.1.142245.3.579. 2.531 Social History Date Type Detail Facility Start: 08-18-2020 End: 10-08-2023 Tobacco smoking status NHIS Never smoked tobacco [facility] Start: 08-18-2020 Tobacco use and exposure Smokeless tobacco non-user [facility] Start: 08-19-2020 End: 09-30-2020 Alcohol intake Ex-drinker (finding) [facility] Start: 1950 Sex Assigned At Not on file [facility] Start: 08-04-2020 End: 08-19-2020 Sex Assigned At [facility] Start: 08-04-2020 End: 08-19-2020 History of Social function [facility] National Score (1-100), lower number is lower risk Not on file [facility] Tobacco smoking status No Smokin g Status Entered [facility] Medical Equipment Procedure Code Equipment Code Equipment Original Text Equi pment Identifier Dates BD Pen Needle Na no U/F 32G X 4 MM Functional Status Date Assessment Result Facility 10-08-2023 Functional Status N/A [facility] 09-05-2023 Functional Status No [facility] 07-24-2023 Functional Status N/A [facility] 07-02-2023 Functional Status N/A [facility] 06-26-2023 Functional Status N/A [facility] 06-21-2023 Functional Status N/A [facility] Clinical Notes 08-19-2020 to 07-03-2023 Note Date & Type Note Facility 07-03-2023 Note [id number] [facility] 07-02-2023 Hospital Discharg e instructions Patient Education 07/02/2023 09:33:43 Endoscopy, Care After Procedure [facility] ([facility] Endoscopy Care After Procedure Please read the [...] blood. Document Released: 11/06/2004 Document Re-Released: 09/16/2006 [employer] Patient Information 2010 [employer]. 07/02/2023 09:33:36 Esophagitis Esophagitis Esophagitis is inflammation [...] Follow these instructions at home: Medicines Take zwoz-ixt-jdfimir and prescription medicines only as told by [...] powder, vinegar, hot sauces, and barbecue sauce. ?Stark fruit juices and citrus fruits, such as oranges, bentley, and limes. ?Tomato-based foods, such as red sauce, chili, salsa, and pizza with red sauce. ?Fried and fatty foods, such as donuts, kinyarwanda fries, potato chips, and high-fat dressings. ?High-fat [...] provider. Document Revised: 10/03/2020 Document Reviewed: 10/03/2020 e|tab Patient Education 2022 [employer] 07/02/2023 09:33:31 Hiatal Hernia Hiatal Hernia A [...] reduce GERD symptoms. Medicines. These may include: ?Ormp-cxt-frjpbyr antacids. ?Medicines that make your stomach empty [...] may include: ?Fatty foods, like fried foods. ?Stark fruits, like oranges or lemon. ?Other foods [...] Do not drink alcohol. General instructions Take cxdc-ttr-dsxsdwe and prescription medicines only as told by [...] provider. Document Revised: 05/22/2022 Document Reviewed: 05/22/2022 e|tab Patient Education 2022 [employer]. Follow Up Care 06/26/2023 13:24:26 With:Rupa CERRATO, ANTIONETTE Luna, [facility] Address: When: Unknown Comments:Call for any problems. The office will reach out in about one week from procedure date. [facility] 07-02-2023 Note Endoscopy Care After Procedure [...] Document Re-Released: 09/16/2006 ExitCare? Patient Information ?2009 [employer]. Gastroenterology Esophagitis Esophagitis is inflammation of the [...] these instructions at home: Medicines ? Take mhnl-bmb-rhlybmu and prescription medicines only as told by your health care provider. ? Do not take aspirin, ibuprofen, or other NSAIDs unless your health care provider told you to do so. ? If you have trouble taking pills: ? Use a pill splitter to decrease the size of the pi (more content not included)... [facility] 06-18-2023 Note Echocardiology Procedure Exam Date/Time Accession # Ordering Echo Transthoracic 06/18/2023 08:41 EDT [id number] CARMEN CONLEY MD Complete CPT code 67089 [id number] Reason for Exam (Echo Transthoracic Complete) R07.9 Chest pain, unspecified Report [facility] [address] [place] [address] Adult Echocardiogram Report Name: IVELISSE GEE Study Date: 06/18/2023 06:57 AM BP: 117/66 mmHg Patient Location: [facility] HR: 71 : 1950 Gender: Female Height: 60 in Age: 72 yrs Ethnicity: [facility] Weight: 155 lb Reason For Study: R07.9 Chest pain, unspecified BSA: 1.7 m2 History: HTN, DM, I have a leaky valve Ordering Physician: CARMEN CONLEY Referring Physician: CARMEN CONLEY Performed By: Katya Ho, [facility] Interpretation Summary No comparison study is available. [...] Signed by: Lucho GOINS MD Transcribed by: [facility] Technologist: LE [facility] 05-14-2023 Evaluation note Encounter Date Diagnosis Assessment Notes May, Type 2 diabetes mellitus with hyperglycemia (ICD-10 - E11.65) [employer] Other 12-27-2023 Evaluation note* Encounter Date Diagnosis Assessment Notes Treatment Notes Treatment Clinical Notes Mar, Type 2 diabetes mellitus with hyperglycemia (ICD-10 - E11.65) [employer] Other 12-26-2023 Evaluation note* Encounter Date Diagnosis Assessment Notes Treatment Notes Treatment Clinical Notes Mar, Type 2 diabetes mellitus with hyperglycemia (ICD-10 - E11.65) [employer] Other 12-14-2023 Evaluation note* Encounter Date Diagnosis Assessment Notes Treatment Notes Treatment Clinical Notes Mar, Panic attack (ICD-10 - F41.0) [employer] Other 12-14-2023 Evaluation note* Encounter Date Diagnosis Assessment Notes Treatment Notes Treatment Clinical Notes Mar, Panic attack (ICD-10 - F41.0) Reviewed OARRS. Pt requests refill that she uses sparingly. Mar, Type 2 diabetes mellitus with hyperglycemia (ICD-10 - E11.65) steph 3mg #30 given to pt - next [...] to continue with above medication as directed. [employer] Other 10-19-2023 Evaluation note* Encounter Date Diagnosis [...] normal chest x-[facility] on January 17 at [facility]. [employer] Other 09-22-2023 Evaluation note* Encounter Date Diagnosis [...] patient is sent home pleased, without concerns. [employer] Other 06-29-2023 Evaluation note* Encounter Date Diagnosis Assessment Notes Treatment Notes Treatment Clinical Notes Sep, Type 2 diabetes mellitus with hyperglycemia (ICD-10 - E11.65) [employer] Other 05-03-2023 Evaluation note* Encounter Date Diagnosis Assessment Notes Treatment Notes Treatment Clinical Notes August, RLQ abdominal pain (ICD-10 - R10.31) [employer] Other 05-02-2023 Evaluation note* Encounter Date Diagnosis Assessment Notes Treatment Notes Treatment Clinical Notes August, RLQ abdominal pain (ICD-10 - R10.31) Acute pain - assess with labs, CT. Discussed differential with pt. [employer] Other 03-15-2023 Evaluation note* Encounter Date Diagnosis [...] as her information was sent last week. [employer] Other 03-07-2023 Evaluation note* Encounter Date Diagnosis Assessment Notes Treatment Notes Treatment Clinical Notes Jun, Dysuria (ICD-10 - R30.0) Jun, Type 2 diabetes mellitus with hyperglycemia (ICD-10 - E11.65) Jun, History of sepsis (ICD-10 - Z86.19) Referral placed to [facility] [employer] as was suggested by Dr. William. [employer] Other 03-07-2023 Evaluation note* Encounter Date Diagnosis Assessment Notes Treatment Notes Treatment Clinical Notes Jun, Dysuria (ICD-10 - R30.0) Jun, Type 2 diabetes mellitus with hyperglycemia (ICD-10 - E11.65) Stop Januvia. Start ozempic for improved glucose control. Jun, History of sepsis (ICD-10 - Z86.19) Referral placed to [employer] as was suggested by Dr. William. [employer] Other 02-02-2023 Evaluation note* Encounter Date Diagnosis Assessment Notes Treatment Notes Treatment Clinical Notes May, EDU (generalized anxiety disorder) (ICD-10 - F41.1) [employer] Other 02-02-2023 Evaluation note* Encounter Date Diagnosis Assessment Notes Treatment Notes Treatment Clinical Notes May, Panic attack (ICD-10 - F41.0) Discussed stress, medication and health issues. Will refill med started by ER and monitor symptoms. May, Type 2 diabetes mellitus with hyperglycemia (ICD-10 - E11.65) add medication to improve glucose. Pt agrees to consider further referral if needed. [employer] Other 01-13-2023 Evaluation note* Encounter Date Diagnosis [...] antibiotic tomorrow, will check that it cleared. [employer] Other 01-09-2023 Evaluation note* Encounter Date Diagnosis Assessment Notes Treatment Notes Treatment Clinical Notes Apr, Sepsis due to Staphylococcus (ICD-10 - A41.2) Ivelisse feels that the oral antibiotics are not strong enough. Unsure of root cause of staph sepsis/bacteremia . Admitted to [facility] for <24h. Requests referral to ID. Pt concerned that she has immune deficiency or Hep C that she has been septic in the past. Apr, Type 2 diabetes mellitus with hyperglycemia (ICD-10 - E11.65) will continue to hold metformin due to renal labs. Apr, Elevated liver enzymes (ICD-10 - R74.8) Has been to GI in the past [employer] Other 01-05-2023 NotePROGRESS NOTE NOTE DATE: 04/12/2022 [...] prophylaxis: Lovenox. DISPOSITION: Home when medically stable.[id number] Note PROCEDURE: XR WRIST RT MIN 3 V, XR FOREARM RT 2V COMPARISON: HISTORY: Pain of right wrist FINDINGS: BONES:No acute fracture or dislocation of the forearm or wrist. I'll degenerative changes with joint space narrowing. SOFT TISSUES:Negative. No visible soft tissue swelling. EFFUSION:None visible. OTHER: Negative. IMPRESSION: Mild degenerative changes No acute abnormality Electronically authenticated by: HAYLEY PARHAM Date: 2022-01-07 11:23[facility]10-02-2022 NotePROCEDURE: XR WRIST RT MIN 3 V, XR FOREARM RT 2V COMPARISON: HISTORY: Pain of right wrist FINDINGS: BONES:No acute fracture or dislocation of the forearm or wrist. I'll degenerative changes with joint space narrowing. SOFT TISSUES:Negative. No visible soft tissue swelling. EFFUSION:None visible. OTHER: Negative. IMPRESSION: Mild degenerative changes No acute abnormality Electronically authenticated by: HAYLEY PARHAM Date: 2022-01-07 11:23[facility]05-06-2022 Miscellaneous Notes* Telephone Encounter - Marta Valero - 08/11/2021 12:13 PM EDT Called patient to reschedule an appointment per patient she no longer see Dr. Aguilar and that she had cancelled appointments last year confirmed with patient that she would like to cancel and did notneed to reschedule. documented in [facility]21 NoteHNO ID: [id number] Author: Mehrdad Aguilar MD Service: ? Author Type: Physician Type: Progress Notes Filed: 10/02/2020 5:36 PM Note Text: PATIENT NAME: Ivelisse Gee DATE: 09/30/2020 PRIMARY CARE PHYSICIAN: Carmen Conley MD OTHER PHYSICIANS: Dr. Wahl ([place], [place]), Dr. Magdaleno Castillo ([facility]) Portions of this encounter note have [...] extremities and face. Negative (more content not included)...[facility]06-16-2021 NoteHNO ID: [id number] Author: RT Nancie(R) Service: ? Author Type: Eating Disorder Specialist Type: Progress Notes Filed: 09/21/2020 11:30 AM [...] Gee DATE: September 21, 2020 TIME: 11:28 [facility]06-16-2021 NoteHNO ID: [id number] Author: RT Nancie(Bushra) Service: ? Author Type: Eating Disorder Specialist Type: Progress Notes Filed: 09/21/2020 11:26 AM [...] Gee DATE: September 21, 2020 TIME: 11:18 [facility]05-25-2021 NoteHNO ID: [id number] Author: RT kAhil(Bushra) Service: ? Author Type: Eating Disorder Specialist Type: Progress Notes Filed: 08/30/2020 11:31 AM [...] BY: RT Akhil(R) August 30, 2020 11:30 [facility]05-14-2021 NoteHNO ID: [id number] Author: Mehrdad Aguilar MD Service: ? Author Type: Physician Type: Progress Notes Filed: 08/20/2020 1:40 PM Note Text: PATIENT NAME: Ivelisse Gee DATE: 08/19/2020 PRIMARY CARE PHYSICIAN: Carmen Conley MD OTHER PHYSICIANS: Dr. Wahl ((PCP [place], [place]) HPI: This is a 70 year [...] requiring hospitalization, most recently while residing in [place] in June 2020. During her recent hospitalization labs revealed persistent thrombocytopenia with a platelet count ranging from 80-90,000. The patient is currently referred for evaluation of her abnormal CBC. Since the patient's hospitalization she started yhal-zyx-mmosmvb supplements including multivitamin. She has had no [...] EXAM: Well developed/well n (more content not included)...[facility] Future Appointments Appointment Date:06/21/2023 01:30:00 PM Scheduled Provider:Deonte Peraza MD [facility] Type:Cardiology New Patient (FT) Appointment Date:06/26/2023 12:30:00 PM Scheduled Provider:Shaun Goode MD Location:[facility] Appointment Type:[facility] Future Appointments Appointment Date:06/26/2023 12:30:00 PM Scheduled Provider:Shaun Goode MD Location:[facility] Appointment Type:[facility] New Patient Appointment Date:08/22/2023 02:00:00 PM Scheduled Provider:Deonte Peraza MD [facility] Type:Cardiology Follow Up (FT) Future Scheduled Tests Radiology* NM Myocardial Spect Rest/Stress 1 Day 06/21/23 [facility] Future Appointments Appointment Date:07/02/2023 09:45:00 AM Scheduled Provider: Location:[facility] Appointment Type:Surgery FT Appointment Date:08/22/2023 02:00:00 PM Scheduled Provider:Deonte Peraza MD [facility] Type:Cardiology Follow Up (FT) Future Scheduled Tests Radiology* NM Myocardial Spect Rest/Stress 1 Day 06/21/23 [facility] Dig[facility] Evaluation + Plan note Future Appointments Appointment Date:07/02/2023 09:45:00 AM Scheduled Provider: Location:[facility] Appointment Type:Surgery FT Appointment Date:08/22/2023 02:00:00 PM Scheduled Provider:Deonte Peraza MD [facility] Type:Cardiology Follow Up (FT) Diagnostic Tests Pending * Alpha Fetoprotein Tumor Marker 06/26/23 Future Scheduled Tests Radiology* NM Myocardial Spect Rest/Stress 1 Day 06/21/23 [facility] Future Appointments Appointment Date:08/22/2023 02:00:00 PM Scheduled Provider:Deonte Peraza MD [facility] Type:Cardiology Follow Up (FT) Future Scheduled Tests Radiology* NM Myocardial Spect Rest/Stress 1 Day 06/21/23 [facility] Future Appointments Appointment Date:08/05/2023 08:00:00 AM Scheduled Provider: [facility] Type:NM Myocard Spect Multi Rest/Stress-Res Appointment Date:08/05/2023 09:00:00 AM Scheduled Provider: [facility] Appoint[facility] Type:NM Myocard Spect Multi Rest/Stress - R Appointment Date:08/05/2023 09:30:00 AM Scheduled Provider: [facility] Appoint[facility] Type:NM Myocard Spect Multi Rest/Stress-Str Appointment Date:08/05/2023 10:30:00 AM Scheduled Provider: [facility] Appointment Type:NM Myocar Spect Multi Rest/Stress - St Appointment Date:08/05/2023 11:00:00 AM Scheduled Provider: [facility] Type:CV Holter/Event (FT) Appointment Date:08/06/2023 10:30:00 AM Scheduled Provider: [facility] Appoint[facility] Type:US Abdominal/Pelvis (FT) Appointment Date:08/22/2023 02:00:00 PM Scheduled Provider:Deonte Peraza MD [facility] Type:Cardiology Follow Up (FT) Appointment Date:01/08/2024 12:15:00 PM Scheduled Provider:Shaun Goode MD Location:[facility] Dig[facility] Appointment Type:[facility] Follow Up Future Scheduled Tests Laboratory* Alpha Fetoprotein Tumor Marker 07/24/23 * Alpha Fetoprotein Tumor Marker 01/23/24 * CBC w/ Auto Diff 07/24/23 * CBC w/ Auto Diff 01/23/24 * Comprehensive Metabolic Panel 07/24/23 * Comprehensive Metabolic Panel 01/23/24 * PT 07/24/23 * PT 01/23/24 Radiology* NM Myocardial Spect Rest/Stress 1 Day 08/05/23 * US Liver 08/06/23 [facility] Evaluation + Plan note Future Appointments Appointment Date:08/15/2023 09:00:00 AM Scheduled Provider: [facility] Appointment Type:NM Myocard Spect Multi Rest/Stress-Res Appointment Date:08/15/2023 10:00:00 AM Scheduled Provider: [facility] Appointment Type:NM Myocard Spect Multi Rest/Stress - R Appointment Date:08/15/2023 10:30:00 AM Scheduled Provider: [facility] Appointment Type:NM Myocard Spect Multi Rest/Stress-Str Appointment Date:08/15/2023 11:30:00 AM Scheduled Provider: [facility] Appointment Type:NM Myocar Spect Multi Rest/Stress - St Appointment Date:08/27/2023 01:00:00 PM Scheduled Provider:Dontae Hernández PA-C [facility] Type:Cardiology Follow Up (FT) Appointment Date:01/08/2024 12:15:00 PM Scheduled Provider:Shaun Goode MD Location:[facility] Appointment Type:BAD Follow Up Future Scheduled Tests Laboratory* Alpha Fetoprotein Tumor Marker 07/24/23 * Alpha Fetoprotein Tumor Marker 01/23/24 * CBC w/ Auto Diff 07/24/23 * CBC w/ Auto Diff 01/23/24 * Comprehensive Metabolic Panel 07/24/23 * Comprehensive Metabolic Panel 01/23/24 * PT 07/24/23 * PT 01/23/24 Radiology* NM Myocardial Spect Rest/Stress 1 Day 08/15/23 * US Liver 08/16/23 [facility] Future Appointments Appointment Date:08/27/2023 01:00:00 PM Scheduled Provider:Dontae Hernández PA-C Location[facility] Appointment Type:Cardiology Follow Up (FT) Appointment Date:01/08/2024 12:15:00 PM Scheduled Provider:Shaun Goode MD Location:[facility] Appointment Type:BAD Follow Up Future Scheduled Tests Laboratory* Alpha Fetoprotein Tumor Marker 07/24/23 * Alpha Fetoprotein Tumor Marker 01/23/24 * CBC w/ Auto Diff 07/24/23 * CBC w/ Auto Diff 01/23/24 * Comprehensive Metabolic Panel 07/24/23 * Comprehensive Metabolic Panel 01/23/24 * PT 07/24/23 * PT 01/23/24 Radiology* US Liver 08/16/23 [facility] Future Appointments Appointment Date:10/08/2023 01:45:00 PM Scheduled Provider:Dontae Hernández PA-C Location[facility] Appointment Type:Cardiology Follow Up (FT) Appointment Date:01/08/2024 12:15:00 PM Scheduled Provider:Shaun Goode MD Location:[facility] Appointment Type:[facility] Follow Up Future Scheduled Tests Laboratory* Alpha Fetoprotein Tumor Marker 07/24/23 * Alpha Fetoprotein Tumor Marker 01/23/24 * CBC w/ Auto Diff 07/24/23 * CBC w/ Auto Diff 01/23/24 * Comprehensive Metabolic Panel 07/24/23 * Comprehensive Metabolic Panel 01/23/24 * PT 07/24/23 * PT 01/23/24 Radiology* NM Myocardial Spect Rest/Stress 1 Day 09/06/23 * US Liver 08/16/23 [facility] Future Appointments Appointment Date:10/08/2023 01:45:00 PM Scheduled Provider:Dontae Hernández PA-C [facility] Type:Cardiology Follow Up (FT) Appointment Date:01/08/2024 12:15:00 PM Scheduled Provider:Shaun Goode MD Location:[facility] Appointment Type:[facility] Follow Up Future Scheduled Tests Laboratory* Alpha Fetoprotein Tumor Marker 07/24/23 * Alpha Fetoprotein Tumor Marker 01/23/24 * CBC w/ Auto Diff 07/24/23 * CBC w/ Auto Diff 01/23/24 * Comprehensive Metabolic Panel 07/24/23 * Comprehensive Metabolic Panel 01/23/24 * PT 07/24/23 * PT 01/23/24 Radiology* US Liver 08/16/23 [facility] Future Appointments Appointment Date:01/08/2024 12:15:00 PM Scheduled Provider:Shaun Goode MD Location:[facility] Digestive [facility] Appointment Type:[facility] Follow Up Appointment Date:04/14/2024 01:00:00 PM Scheduled Provider:Dontae Hernández PA-C [facility] Type:Cardiology Follow Up (FT) Future Scheduled Tests Laboratory* Alpha Fetoprotein Tumor Marker 07/24/23 * Alpha Fetoprotein Tumor Marker 01/23/24 * CBC w/ Auto Diff 07/24/23 * CBC w/ Auto Diff 01/23/24 * Comprehensive Metabolic Panel 07/24/23 * Comprehensive Metabolic Panel 01/23/24 * PT 07/24/23 * PT 01/23/24 Radiology* US Liver 08/16/23 [facility] Other Evaluation note* Diagnosis Thrombocytopenia (HCC) Thrombocytopenia, unspecified 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 general Narrative - Reported* Type Description [...] History septic shock Hospitalization History Sepsis 07/07/2020 [employer] Other history general Narrative - Reported* Type Description Date [...] History septic shock Hospitalization History Sepsis 07/07/2020 [employer] Other history general Narrative - Reported* Type Description Date [...] Sepsis 07/07/2020 Hospitalization History Covid positive 01/17/23 [employer] Other Hospital course Narrative No data available for this section [facility] No data available for this section [facility] No data available for this section [facility] Summary Purpose Family History No Family [...] Callahan - will scan in reports from [facility] last week Diagnosis 1 Sepsis due to Staphy lococcus (A41.2) Referral Organization [facility] [employer] Referring Provider First Name Carmen Referring Provider Last Name Yael Referring Provider Specialty [facility] [employer] Referred Organization [facility] Infectious Dis ease Referred Provider Blayne Callahan Referred Address [address] [place],[address] Referred Provider Specialty Infectious D isease Referral Priority Routine General Notes Itzel Parekh 03:10:38 PM >received today, labs, and notes attached, locked and faxed P2P Itzel Parekh 04/18/2022 10:54:24 AM >per Dr. Callahan pt does not need to be seen to treat Reason 06/11/22 Labs pend ing, has fibro. strong family history of autoimmune issues. Diagnosis 1 Myalgia (M79.10) Referral Organization [facility] [employer] Referring Provider First Name Carmen Referring Provider Last Name Yael Referring Provider Specialty Family Medi cine Referred Organization [facility] Referred Provider Daniel Gomez Referred Address [address] [place],[address] Referred Provider Specialty Rheumatology Referral Priority Routine Referral Appointment Date 2022-06-11 General Notes Itzel Parekh 03:45:56 PM >received today, labs pending. ins card attached, notes locked and referral faxed Itzel Parekh 04/27/2022 10:22:51 AM >faxed first attempt letter Itzel Parekh 04/30/2022 02:17:43 PM >received fax with appt date and time Reason 06/28/22 Pt wants to see the [employer] in [facility] - phone is [phone]. Please send same info that was sent to the referral for Dr. Gomez. Thanks Diagnosis 1 Dysuria (R30.0) [facility] Referring Provider First Name Carmen Referring Provider Last Name Yael Referring Provider [facility] Referred Organization Unknown Facility Referred Provider Specialty Immunology Referral Priority Routine Referral Appointment Date 2022-06-28 General Notes Itzel Parekh 11:00:51 AM >received today, attachments made, notes locked, referral faxed Itzel Parekh 06/20/2022 01:01:04 PM >faxed first attempt letter Itzel Parekh 06/21/2022 08:59:47 AM >RECEIVED FAX WITH APPT DATE AND TIME Clinical Notes p: [phone] f: [phone] Reason 06/28/22 Pt wants to see the [employer] in [facility] - phone is [phone]. Please send same info that was sent to the referral for Dr. Gomez. Thanks Diagnosis 1 Dysuria (R30.0) Referral Organization [facility] Referring Provider First Name Carmen Referring Provider Last Name Yael Referring Provider Specialty [facility] [employer] Referred Organization Unknown Facility Referred Provider Specialty [...] for review. Closing referral Clinical Notes p: [phone] f: [id number] Additional Source Comments INFORMATION SOURCE (unrecogn ized section and content) DATE CREATED AUTHOR 02/05/2021 [facility] DATE CREATED AUTHOR AUTHOR'S ORGANIZ ATION 08/12/2021 [facility] DATE CREATED AUTHOR AUTHOR'S ORGANIZ ATION 07/28/[address] [facility] DATE CREATED AUTHOR AUTHOR'S ORGANIZ ATION 08/16/2022 [facility] DATE CREATED AUTHOR AUTHOR'S ORGANIZ ATION 04/17/2023 [facility] EPIC DATE CREATED AUTHOR AUTHOR'S ORGANIZ ATION 10/09/2023 [facility] DATE CREATED AUTHOR AUTHOR'S ORGANIZ ATION 12/07/2023 [facility] Source Comments (unrecognize d section and content) In the event this informatio n is protected by the Federal Confidentiality of Alcohol and Drug Abuse Patient Records regulations: The Federal rules restrict any use of the information to criminally investigate or prosecute any alcohol or drug abuse patient.[facility] CampusIn the event this information is protected by the Federal Confidentiality of Alcohol and Drug Abuse Patient Records regulations: The Federal rules restrict any use of the information to criminally investigate or prosecute any alcohol or drug abuse patient.[facility] Reason for Visit (unrecogniz ed section and content) Reason Comments Appointment Care Teams (unrecognized sec tion and content) Replenishment Merchandising Associate Relationship Specialty Start Date End Date Carmen Conley MD [address] [place] [address] PCP - General Family Practice 08/04/20 Replenishment Merchandising Associate Relationship Specialty Start Date End Date Carmen Conley MD [address] [place] [address] PCP - General Family Medicine [...] BE BASED ON THE PRIMARY CLINICAL RECORDS. [facility] [address] [facility]. provides no warranty or guarantee of the accuracy or completeness of information in this document."
[2023-12-16 09:32] VITALS: BP 139/86; PULSE 120; TEMP 36.3; O2SAT 97
[2023-12-16 09:40] LABS: Glucometer 192 mg/dL (74-106)
[2023-12-16 10:14] VITALS: BP 137/65; BP 142/64; PULSE 113; PULSE 119; O2SAT 93; O2SAT 94
[2023-12-16] MEDS: LIDOCAINE HCL 2% 400 MG/20 ML MDV 3 ML INJ (10:18)
[2023-12-16] MEDS: BUPIVACAINE HCL 0.25% PF 25 MG/10 ML VIAL INJ (10:18)
[2023-12-16] MEDS: IOHEXOL 240 MG/ML - 10 ML VIAL 12 MG INJ (10:18)
[2023-12-16] MEDS: 0.9 % SODIUM CHLORIDE 10 ML SYRINGE - SALINE FLUSH INJ (10:18)
[2023-12-16] MEDS: TRIAMCINOLONE ACETONIDE 40 MG/ML VIAL INJ (10:19)
--- NOTE | 2023-12-16 10:23 | P.ON_ITS ---
Date of procedure: 12/16/23 Pre-op diagnosis: Pain due to lumbar stenosis with neurogenic claudication Post-op diagnosis: same as pre-op Procedure: Procedure: Right L4-5, L5-S1 transforaminal epidural steroid injection Medications: Bupivacaine 0.25% 2cc, lidocaine 2% 1cc, kenalog 80mg The patient was seen and examined in the preoperative holding area.? Informed consent was obtained and placed on the chart.? Patient was brought to the medical procedure unit and placed in the prone position where a timeout was completed verifying the correct patient, procedure site, position, and planned special equipment using sterile aseptic technique.? Under direct fluoroscopic visualization a 25-gauge Quincke tipped spinal needle was advanced to the designated neural foramen where contrast dye was injected to show adequate spread.? The needle was inserted at level right L4-5. There was no evidence of vascular or adverse uptake.? Epidural spread was appreciated.? The above- mentioned injectate was then placed in a 1.5 mL aliquot preceded by negative aspiration.? The needle was removed. The needle was inserted and the procedure repeated at level right L5-S1.? The surgery site was covered.? Patient was taken to the postprocedural recovery area and monitored for an appropriate length of time before found suitable for discharge in the accompaniment of a responsible adult. Anesthesia: Local Surgeon: Nohemy Mohamud Pathology: none sent Condition: stable Disposition: no change
== END 2023-12-16 10:22 | disposition home or self-care (01) ==
LOC: SURGOUT 09:05
PROVIDERS: PCP Family Medicine; Visit Provider Anesthesiology
DX: M48.062 Spinal stenosis, lumbar region with neurogenic claudication (principal); Z79.899 Other long term (current) drug therapy
CPT/HCPCS: 36415; 64483; 64484; 82948; J0665; J3301; Q9966

== ENCOUNTER 2023-12-17 12:17 | Outpatient (OUT) | payer MEDICARE, OTHER, SELFPAY ==
--- NOTE | 2023-12-17 | XR_ITS ---
The [address] [address] Patient Name: EDWARD GEE MRN: [id number] date: 1950 Sex: F Assigned Patient Location: LAB Current Patient Location: Accession/Order Number: [id number] Exam Date: 12/17/2023 12:55 Report Date: 12/19/2023 07:11 At the request of: CARMEN CONLEY Procedure: XR sinus min 3V EXAMINATION: XR sinus min 3V HISTORY: fatigue , hypertension type 2 diabetes mellitus COMPARISON: No relevant comparison available. FINDINGS: MAXILLARY: No mucosal thickening or fluid level. ETHMOID: No mucosal thickening or fluid level. FRONTAL: No mucosal thickening or fluid level. SPHENOID: No mucosal thickening or fluid level. OTHER: Negative. XR/XR sinus min 3V IMPRESSION: Clear paranasal sinuses Electronically authenticated by: HAYLEY PARHAM Date: 12/19/2023 07:11
--- OUTSIDE RECORDS SUMMARY | 2023-12-17 12:36 | XMS_ITS | CCD ---
Author Organization [facility] Care Team Providers Care [employer] Supervisor Name Role Phone Carmen Conley MD Primary Care Provider [phone] Carmen Conley Attending Unavailable Yael, Carmen Riggins [...] CONLEY, DR CARMEN Riggins Primary Care Unavailable RIDDLE, DR HAYLEY Martinez Consulting Unavailable CONLEY, DR [...] Translations: [sulfa drugs] Drug Allergy Weal (disorder) [facility] (2 sources) Latex Drug Allergy 09-07-19 17 Unknown [facility] (2 sources) Sulfonamides (Antibiotic) Drug Allergy 09-06-19 17 Anaphylaxis [facility] (20 sources) Latex Propensity to adverse reactions Unknown [employer] [employer] Other (20 sources) Sulfonamides (Antibiotic) Propensity to adverse reactions Unknown [facility] Other (1 source) Latex Drug allergy (disorder) 10-15-19 16 [facility] (1 source) Sulfonamides (Antibiotic) Drug allergy (disorder) 08-19-19 13 [facility] (13 sources) sulfADIAZINE Drug Allergy 09-12-19 18 Comment:LUNA [facility] [employer] Other (12 sources) Adhesive bandage; Translations: [Adhesive Bandage] Drug allergy Eruption of skin (disorder) [facility] (11 sources) Sulfonamides (Antibiotic); Translations: [sulfa drugs] Drug allergy Weal (disorder) [facility] Medications Current Medications Medication Drug Class(es) Dates Sig (Normalized) Sig (Original) [id number] actuat albuterol 0.09 mg/actuat metered dose [...] Daily, # 30 cap(s), Refills(s) 5, Pharmacy: [facility]/pharmacy #[id number], 155, cm, 06/26/23 12:22:00 EDT, Height/Length [...] Daily, # 30 tab(s), Refills(s) 2, Pharmacy: [facility]/pharmacy #[id number], 155, cm, 09/05/23 10:04:00 EDT, Height/Length [...] Daily, # 90 tab(s), Refills(s) 3, Pharmacy: [facility]/pharmacy #[id number], 153, cm, 07/24/23 13:54:00 EDT, Height/Length [...] sources) Long-term current use of insulin; Translations: [extermination supervisor (current) use of insulin] Episodic Other connective [...] 11-26-2021 Episodic Other aftercare (1 source) Other extermination supervisor (current) drug therapy; Translations: [OTH STEWARD/STEWARDESS BATH CURRENT DRUG THERAPY] Onset: 04-17-2022 Episodic Other aftercare (1 source) long-term (current) use of oral hypoglycemic drugs; Translations: [CARE HOME USE ORAL HYPOGLYCEMIC DX] Onset: 04-17-2022 Episodic [...] with voice recognition artificial intelligence software, specifically [employer], [employer] and or [employer]. Substitutions may have occurred due to the [...] Ozempic, Sub (more content not included)... Normal [facility] Comment on above: Result Comment: Elec tronically Signed By: Edgar BOUDREAUX, Dontae Wolfe\.elyse\Date and Time Signed: 10/08/23 13:53 EDT NM Myocardial Spect Rest/Str ess 1 Dayon 10-02-2023 NM Myocardial Spect Rest/Stress 1 Day Exam Date/Time: 10/01/2023 14:13 EDT Reason for Exam: ventricular tachycardia;Other (please specify) Report [facility] [address] [place] [address] Nuclear Stress Report Name: IVELISSE GEE Study Date: 10/01/2023 12:32 PM Patient Location: [facility] : 1950 (M/d/yyyy) Gender: Female Age: 73 yrs Ethnicity: T Reason For Study: Other (please specify) Ordering Physician: Dontae Hernández Referring Physician: Dontae Hernández Protocol 20742 Pharmacologic Lexiscan stress with Isotope. Study Protocol: [...] Signed by: Deonte Peraza MD Transcribed by: [facility] Technologist: ISAAC [facility] Consent for Treatmenton 09-07 Consent for Treatment [id number]#1.00TIF F [facility] Monitor Recordon 10-01-2023 Monitor Record [id number]#1.00TIF F [facility] Event Monitoron 09-30-2023 Event Monitor EVENT [...] BY: Ciaran Villatoro MD ca Dictated: 09/28/2023 [id number] Transcribed: 09/30/2023 [facility] Comment on above: Result Comment: Elec tronically Signed By: Shauna CERRATO, Ciaran Mccabe\.br\Date and Time Signed: 09/30/23 13:51 EDT Consent for Treatmenton 08-08 Consent for Treatment [id number]#1.00TIF F [facility] Heart and Vascular Office/Cl inic [...] Daily, # 30 tab(s), Refills(s) 2, Pharmacy: [facility]/pharmacy #[id number], 155, cm, 09/05/23 10:04:00 EDT, Height/Length [...] with voice recognition artificial intelligence software, specifically [employer], [employer] and or [employer]. Substitutions may have occurred due to the [...] Immunizations Va (more content not included)... [facility] Comment on above: Result Comment: Elec tronically Signed By: Edgar BOUDREAUX, Dontae Wolfe\harvinder\Date and Time Signed: 09/05/23 12:53 EDT Physician Orderon 09-05-2023 Physician Order [id number]#1.00T IFF [facility] Monitor Recordon 09-03-2023 Monitor Record [id number]#1.00TI FF [facility] Consent for Treatmenton 07-08 Consent for Treatment [id number]#1.00TIF F [facility] Ambulatory Visit Summaryon 0 07-24-2023 Ambulatory [...] EDT With: Rupa CERRATO, Shaun Xiao Where: [facility] Normal [facility] Gastroenterology Office/Clin ic Noteon 07-24-2023 Gastroenterology [...] 1-2 bowel movements every day by using sjjj-vrm-ekcwntk laxatives such as senna Advised to massage [...] Daily, # 30 cap(s), Refills(s) 5, Pharmacy: [facility]/pharmacy #[id number], 155, cm, 06/26/23 12:22:00 EDT, Height/Length Dosing, 72.1, kg, 06/26/23 12:22:00 EDT, Weight Dosing pantoprazole, 40 mg = 1 tab(s), Oral, Daily, # 90 tab(s), Refills(s) 3, Pharmacy: [facility]/pharmacy #[id number], 153, cm, 07/24/23 13:54:00 EDT, Height/Length [...] influenza virus vaccine, inactivated 04/09/2016 Recorded Normal [facility] Comment on above: Result Comment: Elec tronically Signed By: Rupa CERRATO, Shaun Resendiz.br\Date and Time Signed: 07/24/23 14:16 EDT IntraOperative Documentson 0 07-04-2023 IntraOperative Documents [id number]#1.00TI FF [facility] Consenton 07-03-2023 Consent [id number]#1.00TI [facility] Discharge Instructionson Discharge Instructions [id number]#1.00TI [facility] Main OR Intraoperative Recor don 07-03-2023 Main OR Intraoperative Record IntraOp Document Type FT Summary Primary Physician: Shaun Goode MD Finalized Date/Time: 07/03/23 11:58:54 Pt. Name: MARLEN IVELISSE Aiden MannB./Sex: 1950 Female Med Rec #: [id number] Physician: Shaun Goode MD Financial #: [id number] Pt. Type: O Room/Bed: / Admit/Disch: 07/02/23 [...] Alicia MARC, Aba Mcgill CRNA Role Performed Gold Beater - Primary SENSITIZED PAPER TESTER Time In 07/02/23 09:08:00 07/02/23 09:08:00 Time [...] and tissue Entry 1 Skin Integrity Intact, [place], Warm, and Skin Abnormality No Dry Outcomes [...] Yes Left (more content not included)... Normal [facility] Postoperative Documentson Postoperative Documents [id number]#1.00TI FF Normal [facility] Progress Note-Physicianon Progress Note-Physician Patient: IVELISSE [...] selected or recorded. Histories Procedure history: Bladder ([id number]). Comments: 06/26/2023 12:18 EDT - Claritza Cuencaney 15 years ago Gallbladder ([id number]). Hysterectomy (536531529). Arm (6890010490). Hand (881701529). Social History Social & Psychosocial Habits Tobacco 06/26/2023 Risk Assessment: Denies Tobacco Use 06/26/2023 Tobacco Use: Never (less than 100 in l . Physical Examination Airway: Mallampati classification: II (soft palate, fauces, uvula visible). Respiratory: adequate air exchange. Cardiovascular: Regular rhythm. Plan [place] [employer] Anesthesiologists (ASA) physical status classification: Class II. Anesthetic Preoperative Plan: Anesthesia General. Normal [facility] Comment on above: Result Comment: Elec tronically Signed By: Brant Friedman Jr, DO\.br\Date and Time Signed: 07/03/23 15:21 EDT Progress Note-Physician Patient: IVELISSE GEE Age: 72 years Sex: Female : 1950 Associated Diagnoses: None Author: Brant Friedman Jr, DO Postoperative Information Postoperative disposition: Postoperative disposition: To PACU. Optimetrix number: Optimetrix number [id number]. Anesthetic utilized: General. Health Status Allergies: Allergic [...] meets criteria ( To home ). [facility] Comment on above: Result Comment: Elec tronically Signed By: Brant Friedman Jr, DO\.br\Date and Time Signed: 07/03/23 15:20 EDT Consent for Treatmenton 06-07 Consent for Treatment [id number]#1.00TIF F [facility] Discharge Instructionson Discharge Instructions IVELISSE GEE [...] Doctor Event Name Event Result [facility] Previously Scheduled Follow-Up Appointments August. 2023 2:00 PM EDT With: Karmen CERRATO, Deonte Roth Where: [facility] New Follow Up Appointments after Discharge Follow Up with Rupa CERRATO, ANTIONETTE Luna, [facility] When: Comments: Call for any problems. [...] Document Re-Released: 09/16/2006 ExitCare? Patient Information ?2009 [employer]. Esophagitis Esophagitis is inflammation of the esophagus. [...] to the (more content not included)... Normal [facility] Comment on above: Result Comment: Elec tronically Signed By: Elma Vanessa.br\Date and Time Signed: 07/02/23 09:34 EDT Nicole [...] Daily, # 30 cap(s), Refills(s) 5, Pharmacy: [facility]/pharmacy #[id number], 155, cm, 06/26/23 12:22:00 EDT, Height/Length [...] status post biopsies Images Procedure images: Rechd_video_ [id number].jpg Rec_hd_video_ [id number].jpg Rec_hd_video_ [id number].jpg Rec_hd_video_ [id number].jpg Rec_hd_video_ [id number].jpg Rec_hd_video_ [id number]_17_[id number].jpg . Post-Procedure Complications: none. Estimated blood loss: none. Specimens: sent to pathology. Devices/ implants: none left in place. Impression and Plan EGD: Diagnosis: Esophagitis, reflux (IOP45-WC K21.00, Working, Medical). Course: Progressing as expected. Education and Follow-up: Counseled: Family. Notes: Start Protonix 40 mg once daily Might benefit from Carafate in the future. Maryuri [facility] Comment on above: Other Comment: Kathy hernandez Attachment - attachment storage system not supported [id number] Can be viewed in source system Missing Attachment - attachment storage system not supported [id number] Can be viewed in source system Missing Attachment - attachment storage system not supported [id number] Can be viewed in source system Missing Attachment - attachment storage system not supported [id number] Can be viewed in source system Missing Attachment - attachment storage system not supported [id number] Can be viewed in source system Missing Attachment - attachment storage system not supported [id number] Can be viewed in source system Main OR PACU I Recordon 06-07 Main OR PACU I Record PACU Phase I Docum ent Type FT Summary Primary Physician: Shaun Goode MD Finalized Date/Time: 07/02/23 10:08:53 Pt. Name: MARLEN IVELISSE Davidson./Sex: 1950 Female Med Rec #: [id number] Physician: Shaun Goode MD Financial #: [id number] Pt. Type: O Room/Bed: / Admit/Disch: 07/02/23 [...] By: Elma Vanessa I 07/02/23 10:08 Normal [facility] Main OR Preoperative Recordo n 07-02-2023 Main OR Preoperative Record Holding Area Document Type FT Summary Primary Physician: Shaun Goode MD Finalized Date/Time: 07/02/23 08:43:45 Pt. Name: IVELISSE GEE/Sex: 1950 Female Med Rec #: [id number] Physician: Shaun Goode MD Financial #: [id number] Pt. Type: O Room/Bed: / Admit/Disch: 07/02/23 [...] By: Alex Calhoun RN 07/02/23 08:43 Normal [facility] Monitor Recordon 07-02-2023 Monitor Record [id number]#1.00TI FF Normal [facility] Monitor Record [id number]#1.00TI FF Normal [facility] AFPon 06-27-2023 AFP.tumor marker [Mass/Vol] 3.5 ng/mL Invalid Interpretation Code 0.0-9.2 [facility] Comment on above: Result Comment: [employer] Electrochemiluminescence Immunoassay (ECLIA) Values obtained with different assay methods or kits cannot be used interchangeably. Results cannot be interpreted as absolute evidence of the presence or absence of malignant disease. This test is not interpretable in females. Performed at: [address] [id number] PhD Isidoro Pak Performed By: #### 2 [id number] ####[facility] [address] [place] [address] Consent for Procedure/Surger yon 06-27-2023 Consent for Procedure/Surgery [id number]#1.00TIF F Normal [facility] Ambulatory Visit Summaryon 0 06-26-2023 Ambulatory [...] for choosing us for your care. [facility] Consent for Treatmenton 06-07 Consent for Treatment [id number]#1.00TIF F Normal [facility] Gastroenterology Office/Clin ic Noteon 06-26-2023 Gastroenterology [...] 1-2 bowel movements every day by using vcbn-uub-yeozskq laxatives such as senna Advised to massage [...] influenza virus vaccine, inactivated 04/09/2016 Recorded Normal [facility] Comment on above: Result Comment: Elec tronically Signed By: Rupa CERRATO, Shaun Resendiz.elyse\Date and Time Signed: 06/26/23 13:09 EDT Physician Orderon 06-24-2023 Physician Order [id number]#1.00TIFF Normal [facility] Heart and Vascular Office/Cl inic Noteon [...] appointment on 06/26/2023. She went back to [facility], although it made her feel unwell. Notably, [...] with voice recognition artificial intelligence software, specifically [employer], [employer] and or [employer]. Substitutions may have occurred due to the inherent limitations of voice recognition and artificial intelligence software. ATTESTATION: Documentation services were performed after patient or guardian consented to allow [employer] to record this visit. SAMUEL financial services specialist and provider reviewed before signing. SAMUEL: [...] Tobacco - Denies Tobacco Use, 06/21/2023 [facility] Comment on above: Result Comment: [...] EDT With: Rupa CERRATO, Shaun Xiao Where: [facility] Consent for Treatmenton 06-06 Consent for Treatment [id number]#1.00TIF F [facility] Physician Referralon 024 Physician Referral [id number]#1.00TIF F [facility] Referrals Officeon 4 Referrals Office [id number]#1.00TIF F [facility] Physician Orderon 05-30-2023 Physician Order [id number]#1.00TIF F Normal [facility] Referrals Officeon Referrals Office [id number]#1.00TIF F Normal [facility] CREATININEon 08-08-2022 Creatinine [Mass/Vol] 0.94 mg/dL Normal 0.55-1.02 [facility] Comment on above: Performed By: #### L IPA, HSTROPN, TSH, CMP #### [facility] [address] [address] [address] Juan Zamarripa EGFR-AF PALAUAN >60 Normal >=60 [facility] Comment on above: Performed By: #### L IPA, HSTROPN, TSH, CMP #### [facility] [address] [address] [address] Juan Zamarripa EGFR-NON AF PALAUAN 58 mL/min/1.73m2 Critically low >=60 [facility] Comment on above: Performed By: #### L IPA, HSTROPN, TSH, CMP #### [facility] [address] ABD/PELVIS WO CONon [...] by: CARO SIBLEY Date: 2022-08-08 13:42 Normal [facility] Urine Cultureon 07-24-2022 Bacteria identified Cx Nom (U) No Growth 2 Days PERFORMED BY: [place] [address] PATHOLOGIST DEVELOPMENT ARCHITECT JAIMIE RIVERA M.D. Normal [facility] Comment on above: Performed By: #### C UU #### [address] PNEUMOCOCCAL IM (23 SEROTYPE )on 07-07-2022 Pneumo Ab Type 1* 2.8 ug/mL Normal >1.3 [facility] Comment on above: Performed By: #### L IPA, HSTROPN, TSH, CMP #### [facility] [address] [address] [address] Juan Zamarripa Pneumo Ab Type 12 (12F)* 0.2 ug/mL Critically low >1.3 [facility] Comment on above: Performed By: #### L IPA, HSTROPN, TSH, CMP #### [facility] [address] [address] [address] Juan Zamarripa Pneumo Ab Type 14* >18.7 Normal >1.[address] [facility] Comment on above: Performed By: #### L IPA, HSTROPN, TSH, CMP #### [facility] [address] [address] [address] Juan Zamarripa Pneumo Ab Type 17 (17F)* >20.2 Normal >1.3 [facility] Comment on above: Performed By: #### L IPA, HSTROPN, TSH, CMP #### [facility] [address] [place] [address] Dr. Juan Zamarripa Pneumo Ab Type 19 (19F)* 21.7 ug/mL Normal >1.3 [facility] Comment on above: Performed By: #### L IPA, HSTROPN, TSH, CMP #### [facility] [address] [place] [address] Dr. Juan Zamarripa Pneumo Ab Type 2* 5.7 ug/mL Normal >1.3 [facility] Comment on above: Performed By: #### L IPA, HSTROPN, TSH, CMP #### [facility] [address] [place] [address] Dr. Juan Zamarripa Pneumo Ab Type 20* 4.0 ug/mL Normal >1.[address] [facility] Comment on above: Performed By: #### L IPA, HSTROPN, TSH, CMP #### [facility] [address] [place] [address] Dr. Juan Zamarripa Pneumo Ab Type 22 (22F)* 1.5 ug/mL Normal >1.3 [facility] Comment on above: Performed By: #### L IPA, HSTROPN, TSH, CMP #### [facility] [address] [place] [address] Dr. Juan Zamarripa Pneumo Ab Type 23 (23F)* 3.4 ug/mL Normal >1.3 [facility] Comment on above: Performed By: #### L IPA, HSTROPN, TSH, CMP #### [facility] [address] [place] [address] Dr. Juan Zamarripa Pneumo Ab Type 26 (6B)* 3.0 ug/mL Normal >1.3 [facility] Comment on above: Performed By: #### L IPA, HSTROPN, TSH, CMP #### [facility] [address] [address] [address] Juan Zamarripa Pneumo Ab Type 3* 1.6 ug/mL Normal >1.3 [facility] Comment on above: Performed By: #### L IPA, HSTROPN, TSH, CMP #### [facility] [address] [place] [address] Dr. Juan Zamarripa Pneumo Ab Type 34 (10A)* 4.4 ug/mL Normal >1.3 [facility] Comment on above: Performed By: #### L IPA, HSTROPN, TSH, CMP #### [facility] [address] [place] [address] Dr. Juan Zamarripa Pneumo Ab Type 4* 1.6 ug/mL Normal >1.3 [facility] Comment on above: Performed By: #### L IPA, HSTROPN, TSH, CMP #### [facility] [address] [place] [address] Dr. Juan Zamarripa Pneumo Ab Type 43 (11A)* >7.6 Normal >1.3 [facility] Comment on above: Performed By: #### L IPA, HSTROPN, TSH, CMP #### [facility] [address] [place] [address] Dr. Juan Zamarripa Pneumo Ab Type 5* 2.0 ug/mL Normal >1.3 [facility] Comment on above: Performed By: #### L IPA, HSTROPN, TSH, CMP #### [facility] [address] [place] [address] Dr. Juan Zamarripa Pneumo Ab Type 51 (7F)* 0.9 ug/mL Critically low >1.3 [facility] Comment on above: Performed By: #### L IPA, HSTROPN, TSH, CMP #### [facility] [address] [place] [address] Dr. Juan Zamarripa Pneumo Ab Type 54 (15B)* >22.0 Normal >1.3 [facility] Comment on above: Performed By: #### L IPA, HSTROPN, TSH, CMP #### [facility] [address] [place] [address] Dr. Juan Zamarripa Pneumo Ab Type 56 (18C)* >8.1 Normal >1.3 [facility] Comment on above: Performed By: #### L IPA, HSTROPN, TSH, CMP #### [facility] [address] [place] [address] Dr. Juan Zamarripa Pneumo Ab Type 57 (19A)* 2.5 ug/mL Normal >1.3 [facility] Comment on above: Performed By: #### L IPA, HSTROPN, TSH, CMP #### [facility] [address] [place] [address] Dr. Juan Zamarripa Pneumo Ab Type 68 (9V)* >13.4 Normal >1.3 [facility] Comment on above: Performed By: #### L IPA, HSTROPN, TSH, CMP #### [facility] [address] [place] [address] Dr. Juan Zamarripa Pneumo Ab Type 70 (33F)* >10.1 Normal >1.3 [facility] Comment on above: Result Comment: *Thi s test was developed and its performance characteristics determined by [employer]. It has not been cleared or approved by the U.S. Food and Drug Administration. Performed By: #### L IPA, HSTROPN, TSH, CMP #### [facility] [address] [place] [address] Dr. Juan Zamarripa Pneumo Ab Type 8* 1.2 ug/mL Critically low >1.3 [facility] Comment on above: Performed By: #### L IPA, HSTROPN, TSH, CMP #### [facility] [address] [place] [address] Dr. Juan Zamarripa Pneumo Ab Type 9 (9N)* 1.7 ug/mL Normal >1.3 Th e [facility] Comment on above: Performed By: #### L IPA, HSTROPN, TSH, CMP #### [facility] [address] [place] [address] Dr. Juan Zamarripa BORDETELLA PERTUSSIS AB IGGo n 07-05-2022 B pertussis IgG Ab 1.53 index Invalid Interpretation Code 0.00-0.94 [facility] Comment on above: Result Comment: Clie nt Requested Flag Negative <0.95 Equivocal 0.95 - 1.04 Positive >1.04 Performed By: #### A 1C #### [facility] [address] [place] [address] Dr. Juan Zamarripa TETANUS DIPTHERIA AB PROFILE on 07-05-2022 Diphtheria Antitoxoid Ab 0.29 IU/mL Normal <0.10 [facility] Comment on above: Result Comment: Inte rpretation: Non-Protective <0.10 Protective >=0.10 . For research use only. Performed By: #### C BC #### [facility] [address] [place] [address] Dr. Juan Zamarripa Tetanus Antitoxoid IgG Ab 0.94 IU/mL Normal <0.10 [facility] Comment on above: Result Comment: Inte rpretation: Non-Protective <0.10 Protective >=0.10 Results for this test are for research purposes only by the assay's marketing operations specialist. The performance characteristics of this product have not been established. Results should not be used as a diagnostic procedure without confirmation of the diagnosis by another medically established diagnostic product or procedure. Performed By: #### C BC #### [facility] [address] [place] [address] Dr. Juan Zamarripa HAEMOPHILUS INFLUENZA B IGGo n 07-04-2022 Haemophilus influenzae B IgG 0.21 ug/mL Normal [facility] Comment on above: Result Comment: NOTE : An anti-Hib level of 0.15 ug/mL is generally accepted as the minimum level for protection. Optimal protection post-vaccination requires a level greater than 1.00 ug/mL. Performed By: #### L IPA, HSTROPN, TSH, CMP #### [facility] [address] [place] [address] Dr. Juan Zamarripa IMMUNOGLOBULINS IGA/IGM/IGG QUANTITATIVEon 07-03-2022 Immunoglobulin A, Qn, Serum 219 mg/dL Normal 64-422 [facility] Comment on above: Performed By: #### L IPA, HSTROPN, TSH, CMP #### [facility] [address] [address] [address] Juan Zamarripa Immunoglobulin G, Qn, Serum 1365 mg/dL Normal 586-1602 [facility] Comment on above: Performed By: #### L IPA, HSTROPN, TSH, CMP #### [facility] [address] [address] [address] Juan Zamarripa Immunoglobulin M, Qn, Serum 66 mg/dL Normal 26-217 [facility] Comment on above: Performed By: #### L IPA, HSTROPN, TSH, CMP #### [facility] [address] [address] [address] Juan Zamarripa LYMPHOCYTE ACTIVITY PROFILEo n 07-03-2022 %CD3+CD25+Lymphs 20.3 % Normal 4.9-25.9 [facility] Comment on above: Result Comment: This test was developed and its performance characteristics determined by [facility]. It has not been cleared or approved by the Food and Drug Administration. Performed at: BN Performed By: #### L YMACT #### [facility] [address] [place] [address] Dr. Juan Zamarripa %CD8+CD57+Lymphs 16.6 % Critically high 0.0-11.3 [facility] Comment on above: Result Comment: This test was developed and its performance characteristics determined by [facility]. It has not been cleared or approved by the Food and Drug Administration. Performed at: BN Performed By: #### L YMACT #### [facility] [address] [place] [address] Dr. Juan Zamarripa Abs CD 4 helper 986 /uL Normal 359-1519 [facility] Comment on above: Result Comment: Perf ormed at: CB Performed By: #### L YMACT #### [facility] [address] [place] [address] Dr. Juan Zamarripa Abs. CD 8 Supp 898 /uL Critically high 109-897 [facility] Comment on above: Result Comment: Perf ormed at: CB Performed By: #### L YMACT #### [facility] [address] [place] [address] Dr. Juan Zamarripa Abs.CD3+CD25+Lymphs 447 /uL Normal 79-535 [facility] Comment on above: Result Comment: This test was developed and its performance characteristics determined by [facility]. It has not been cleared or approved by the Food and Drug Administration. Performed at: CB Performed By: #### L YMACT #### [facility] [address] [address] [address] Juan Zamarripa Abs.CD8+CD57+Lymphs 365 /uL Critically high 0-254 [facility] Comment on above: Result Comment: This test was developed and its performance characteristics determined by [facility]. It has not been cleared or approved by the Food and Drug Administration. Performed at: CB Performed By: #### L YMACT #### [facility] [address] [place] [address] Dr. Juan Zamarripa Absolute CD 3 1918 /uL Normal [phone] [facility] Comment on above: Result Comment: Perf ormed at: CB Performed By: #### L YMACT #### [facility] [address] [place] [address] Dr. Juan Zamarripa Basophils (Bld) [#/Vol] 0.0 10*3/uL Normal 0.0-0.2 [facility] Comment on above: Result Comment: Perf ormed at: CB Performed By: #### L YMACT #### [facility] [address] [place] [address] Dr. Juan Zamarripa Basophils/100 WBC (Bld) 1 % Normal Not Estab. T [facility] Comment on above: Result Comment: Perf ormed at: CB Performed By: #### L YMACT #### [facility] [address] [place] [address] Dr. Juan Zamarripa CD4/CD8 Ratio 1.10 Normal 0.92-3.72 [facility] Comment on above: Result Comment: Perf ormed at: BN Performed By: #### L YMACT #### [facility] [address] [place] [address] Dr. Juan Zamarripa Eosinophils (Bld) [#/Vol] 0.1 10*3/uL Normal 0.0-0.4 [facility] Comment on above: Result Comment: Perf ormed at: CB Performed By: #### L YMACT #### [facility] [address] [place] [address] Dr. Juan Zamarripa Eosinophils/100 WBC (Bld) 1 % Normal Not Estab. [facility] Comment on above: Result Comment: Perf ormed at: CB Performed By: #### L YMACT #### [facility] [address] [place] [address] Dr. Juan Zamarripa Erythrocyte distribution width (RBC) [Ratio] 12.6 % Normal 11.7-15.4 [facility] Comment on above: Result Comment: Perf ormed at: CB Performed By: #### L YMACT #### [facility] [address] [place] [address] Dr. Juan Zamarripa Hematocrit (Bld) [Volume fraction] 41.9 % Normal 34.0-46.6 [facility] Comment on above: Result Comment: Perf ormed at: CB Performed By: #### L YMACT #### [facility] [address] [place] [address] Dr. Juan Zamarripa Hematology Comments Normal [facility] Comment on above: Result Comment: Perf ormed at: CB Performed By: #### L YMACT #### [facility] [address] [place] [address] Dr. Juan Zamarripa Hemoglobin (Bld) [Mass/Vol] 14.2 g/dL Normal 11.1-15.9 [facility] Comment on above: Result Comment: Perf ormed at: CB Performed By: #### L YMACT #### [facility] [address] [place] [address] Dr. Juan Zamarripa Immature Cells Normal [facility] Comment on above: Result Comment: Perf ormed at: CB Performed By: #### L YMACT #### [facility] [address] [place] [address] Dr. Juan Zamarripa Immature Grans (Abs) 0.0 x10E3/uL Normal 0.0-0.1 [facility] Comment on above: Result Comment: Perf ormed at: CB Performed By: #### L YMACT #### [facility] [address] [place] [address] Dr. Juan Zamarripa Immature granulocytes/100 WBC (Bld) 0 % Normal Not Estab. [facility] Comment on above: Result Comment: Perf ormed at: CB Performed By: #### L YMACT #### [facility] [address] [place] [address] Dr. Juan Zamarripa Lymphocytes (Bld) [#/Vol] 2.2 10*3/uL Normal 0.7-3.1 [facility] Comment on above: Result Comment: Perf ormed at: CB Performed By: #### L YMACT #### [facility] [address] [place] [address] Dr. Juan Zamarripa Lymphocytes/100 WBC (Bld) 87.2 % Critically high 57.5-86.2 [facility] Comment on above: Result Comment: Perf ormed at: BN Performed By: #### L YMACT #### [facility] [address] [place] [address] Dr. Juan Zamarripa Lymphocytes/100 WBC (Bld) 44.8 % Normal 30.8-58.5 [facility] Comment on above: Result Comment: Perf ormed at: BN Performed By: #### L YMACT #### [facility] [address] [place] [address] Dr. Juan Zamarripa Lymphocytes/100 WBC (Bld) 40.8 % Critically high 12.0-35.5 [facility] Comment on above: Result Comment: Perf ormed at: BN Performed By: #### L YMACT #### [facility] [address] [place] [address] Dr. Juan Zamarripa Lymphocytes/100 WBC (Bld) 34 % Normal Not Estab. [facility] Comment on above: Result Comment: Perf ormed at: CB Performed By: #### L YMACT #### [facility] [address] [place] [address] Dr. Juan Zamarripa MCH (RBC) [Entitic mass] 31.3 pg Normal 26.6-33.0 [facility] Comment on above: Result Comment: Perf ormed at: CB Performed By: #### L YMACT #### [facility] [address] [place] [address] Dr. Juan Zamarripa MCHC (RBC) [Mass/Vol] 33.9 g/dL Normal 31.5-35.7 [facility] Comment on above: Result Comment: Perf ormed at: CB Performed By: #### L YMACT #### [facility] [address] [place] [address] Dr. Juan Zamarripa MCV (RBC) [Entitic vol] 92 fL Normal 79-97 [facility] Comment on above: Result Comment: Perf ormed at: CB Performed By: #### L YMACT #### [facility] [address] [place] [address] Dr. Juan Zamarripa Monocytes (Bld) [#/Vol] 0.3 10*3/uL Normal 0.1-0.9 [facility] Comment on above: Result Comment: Perf ormed at: CB Performed By: #### L YMACT #### [facility] [address] [place] [address] Dr. Juan Zamarripa Monocytes/100 WBC (Bld) 4 % Normal Not Estab. [facility] Comment on above: Result Comment: Perf ormed at: CB Performed By: #### L YMACT #### [facility] [address] [place] [address] Dr. Juan Zamarripa Neutrophils Absolute 4.0 x10E3/uL Normal 1.4-7.0 [facility] Comment on above: Result Comment: Perf ormed at: CB Performed By: #### L YMACT #### [facility] [address] [place] [address] Dr. Juan Zamarripa Neutrophils/100 WBC (Bld) 60 % Normal Not Estab. [facility] Comment on above: Result Comment: Perf ormed at: CB Performed By: #### L YMACT #### [facility] [address] [place] [address] Dr. Juan Zamarripa NRBC Normal [facility] Comment on above: Result Comment: Perf ormed at: CB Performed By: #### L YMACT #### [facility] [address] [address] [address] Juan Zamarriap Platelets (Bld) [#/Vol] 164 10*3/uL Normal 150-450 [facility] Comment on above: Result Comment: Perf ormed at: CB Performed By: #### L YMACT #### [facility] [address] [address] [address] Juan Zamarripa RBC (Bld) [#/Vol] 4.54 10*6/uL Normal 3.77-5.28 [facility] Comment on above: Result Comment: Perf ormed at: CB Performed By: #### L YMACT #### [facility] [address] [address] [address] Juan Zamarripa WBC (Bld) [#/Vol] 6.6 10*3/uL Normal 3.4-10.[address] [facility] Comment on above: Result Comment: Perf ormed at: CB Performed By: #### L YMACT #### [facility] [address] [address] [address] Juan Zamarripa PROF 14(COMP METB)on 023 Albumin [Mass/Vol] 4.1 g/dL Normal 3.4-5.0 [facility] Comment on above: Performed By: #### L IPA, HSTROPN, TSH, CMP #### [facility] [address] [address] [address] Juan Zamarripa Albumin/Globulin [Mass ratio] 1.1 {ratio} Normal [facility] Comment on above: Performed By: #### L IPA, HSTROPN, TSH, CMP #### [facility] [address] [address] [address] Juan Zamarripa ALP [Catalytic activity/Vol] 107 U/L Normal 46-116 [facility] Comment on above: Performed By: #### L IPA, HSTROPN, TSH, CMP #### [facility] [address] [address] [address] Juan Zamarripa ALT [Catalytic activity/Vol] 69 U/L Critically high 14-59 [facility] Comment on above: Performed By: #### L IPA, HSTROPN, TSH, CMP #### [facility] [address] [address] [address] Juan Zamarripa Anion gap [Moles/Vol] 14.0 mmol/L Normal Th e [facility] Comment on above: Performed By: #### L IPA, HSTROPN, TSH, CMP #### [facility] [address] [place] [address] Dr. Juan Zamarripa AST [Catalytic activity/Vol] 31 U/L Normal 15-37 [facility] Comment on above: Performed By: #### L IPA, HSTROPN, TSH, CMP #### [facility] [address] [place] [address] Dr. Juan Zamarripa Bilirubin [Mass/Vol] 0.8 mg/dL Normal 0.2-1.0 [facility] Comment on above: Performed By: #### L IPA, HSTROPN, TSH, CMP #### [facility] [address] [place] [address] Dr. Juan Zamarripa Calcium [Mass/Vol] 9.1 mg/dL Normal 8.5-10.1 [facility] Comment on above: Performed By: #### L IPA, HSTROPN, TSH, CMP #### [facility] [address] [place] [address] Dr. Juan Zamarripa Chloride [Moles/Vol] 104 mmol/L Normal 98-107 [facility] Comment on above: Performed By: #### L IPA, HSTROPN, TSH, CMP #### [facility] [address] [place] [address] Dr. Juan Zamarripa CO2 [Moles/Vol] 28.1 mmol/L Normal 21.0-32.0 [facility] Comment on above: Performed By: #### L IPA, HSTROPN, TSH, CMP #### [facility] [address] [place] [address] Dr. Juan Zamarripa Creatinine [Mass/Vol] 0.77 mg/dL Normal 0.55-1.02 [facility] Comment on above: Performed By: #### L IPA, HSTROPN, TSH, CMP #### [facility] [address] [address] [address] Juan Zamarripa EGFR-AF PALAUAN >60 Normal >=60 [facility] Comment on above: Performed By: #### L IPA, HSTROPN, TSH, CMP #### [facility] [address] [address] [address] Juan Zamarripa EGFR-NON AF PALAUAN >60 Normal >=60 [facility] Comment on above: Performed By: #### L IPA, HSTROPN, TSH, CMP #### [facility] [address] [address] [address] Juan Zamarripa Globulin (S) [Mass/Vol] 3.9 g/dL Normal [facility] Comment on above: Performed By: #### L IPA, HSTROPN, TSH, CMP #### [facility] [address] [address] [address] Juan Zamarripa Glucose [Mass/Vol] 186 mg/dL Critically high 74-106 [facility] Comment on above: Performed By: #### L IPA, HSTROPN, TSH, CMP #### [facility] [address] [address] [address] Juan Zamarripa Potassium [Moles/Vol] 4.1 mmol/L Normal 3.5-5.1 [facility] Comment on above: Performed By: #### L IPA, HSTROPN, TSH, CMP #### [facility] [address] [address] [address] Juan Zamarripa Protein [Mass/Vol] 8.0 g/dL Normal 6.4-8.2 [facility] Comment on above: Performed By: #### L IPA, HSTROPN, TSH, CMP #### [facility] [address] [address] [address] Juan Zamarripa Sodium [Moles/Vol] 142 mmol/L Normal 136-145 [facility] Comment on above: Performed By: #### L IPA, HSTROPN, TSH, CMP #### [facility] [address] [address] [address] Juan Zamarripa Urea nitrogen [Mass/Vol] 9.0 mg/dL Normal 7.0-18.0 [facility] Comment on above: Performed By: #### L IPA, HSTROPN, TSH, CMP #### [facility] [address] [address] [address] Juan Zamarripa Urea nitrogen/Creatinine [Mass ratio] 11.7 mg/mg Normal [facility] Comment on above: Performed By: #### L IPA, HSTROPN, TSH, CMP #### [facility] [address] [place] [address] Dr. Juan Zamarripa CULTURE URINEon 06-12-2022 CULTURE URINE Culture Observations : LIGHT GROWTH OF MIXED GENITAL ALDA. NO POTENTIAL PATHOGENS SEEN. Normal [facility] Comment on above: Performed By: #### U RCX #### [facility] [address] [place] [address] Dr. Juan Zamarripa UA RANDOMon 06-12-2022 Glucose Ql (U) 100 mg/dl Abnormal NEGATIVE [facility] Comment on above: Performed By: #### U A #### [facility] [address] [place] [address] Dr. Juan Zamarripa LEUKOCYTES SMALL Abnormal NEGATIVE [facility] Comment on above: Performed By: #### U A #### [facility] [address] [place] [address] Dr. Juan Zamarripa SPEC GRAVITY 1.015 Normal 1.005-<=1. 025 [facility] Comment on above: Performed By: #### U A #### [facility] [address] [place] [address] Dr. Juan Zamarripa UA PROTEIN Negative Normal NEGATIVE/ TRACE [facility] Comment on above: Performed By: #### U A #### [facility] [address] [place] [address] Dr. Juan Zamarripa Urobilinogen Qn (U) 0.2 {Amee'U}/dL Normal 0.2 - 1. 0 [facility] Comment on above: Performed By: #### U A #### [facility] [address] [address] [address] Juan Zamarripa Urinalysison 06-12-2022 Glucose Ql (U) 100 mg/dl Abnormal NEGATIVE mg/dl [employer] Other Urinalysis see note [employer] Other Urinalysis 1.015 1.005-<=1. 025 [employer] Other Urinalysis Negative NEGATIVE/ TRACE mg/dl [employer] Other Urinalysis 0.2 EU/dl 0.2 - 1.0 EU/dl [employer] Other Urinalysis SMALL Abnormal NEGATIVE [employer] Other Bilirubin Ql (U) Negative Normal NEGATIVE [employer] Other Comment on above: Performed By: #### U A #### [facility] [address] [place] [address] Dr. Juan Zamarripa Clarity (U) CLEAR Normal CLEAR [employer] Other Comment on above: Performed By: #### U A #### [facility] [address] [place] [address] Dr. Juan Zamarripa Color (U) LT. YELLOW Normal YELLOW [employer] Other Comment on above: Performed By: #### U A #### [facility] [address] [address] [address] Juan Zamarripa Hemoglobin Ql (U) Negative Normal NEGATIVE #[employer] C oast [employer]onde [employer] Other Comment on above: Performed By: #### U A #### [facility] [address] [address] [address] Juan Zamarripa Ketones Ql (U) Negative Normal NEGATIVE [employer] Other Comment on above: Performed By: #### U A #### [facility] [address] [place] [address] Dr. Juan Zamarripa Nitrite Ql (U) Negative Normal NEGATIVE [employer] Other Comment on above: Performed By: #### U A #### [facility] [address] [place] [address] Dr. Juan Zamarripa pH (U) 6.0 [pH] Normal 5-9 [employer] Other Comment on above: Performed By: #### U A #### [facility] [address] [place] [address] Dr. Juan Zamarripa CULTURE URINEon 04-25-2022 CULTURE [...] S F Nitrofurantoin <=16 S F Normal [facility] Comment on above: Performed By: #### A 1C #### [facility] [address] [place] [address] Dr. Juan Zamarripa TL by IFAon 04-24-2022 Antinuclear Antibodies, IFA Positive Abnormal [facility] Comment on above: Result Comment: Nega tive <1:80 Borderline 1:80 Positive >1:80 Performed By: #### L IPA, HSTROPN, TSH, CMP #### [facility] [address] [place] [address] Dr. Juan Zamarripa Centriole Pattern Normal [facility] Comment on above: Performed By: #### L IPA, HSTROPN, TSH, CMP #### [facility] [address] [place] [address] Dr. Juan Zamarripa Centromere Pattern Normal [facility] Comment on above: Performed By: #### L IPA, HSTROPN, TSH, CMP #### [facility] [address] [place] [address] Dr. Juan Zamarripa Homogeneous Pattern 1:160 Critically high [facility] Comment on above: Result Comment: ICAP nomenclature: AC-1 Performed By: #### L IPA, HSTROPN, TSH, CMP #### [facility] [address] [address] [address] Juan Zamarripa Midbody Pattern Normal [facility] Comment on above: Performed By: #### L IPA, HSTROPN, TSH, CMP #### [facility] [address] [place], [place] [address] Dr. Juan Zamarripa Note: Comment Normal [facility] Comment on above: Result Comment: For [...] titers Nucleosomes, Histones Drug-induced SLE Speckled Sm, [employer], SCL-70, SLE,MCTD,PSS (diffuse form), SS-A/SS-B Sjogrens Nucleolar SCL-70, PM-1/SCL High titers Scleroderma, PM/DM Centromere Centromere PSS (limited form) w/Crest syndrome variable Nuclear Dot [id number] Primary Biliary Cirrhosis Nuclear GP210, Primary Biliary Cirrhosis Membrane trinity A,B,C Performed By: #### L IPA, HSTROPN, TSH, CMP #### [facility] [address] [place] [address] Dr. Juan Zamarripa Nuclear Dot Pattern Normal [facility] Comment on above: Performed By: #### L IPA, HSTROPN, TSH, CMP #### [facility] [address] [place] [address] Dr. Juan Zamarripa Nuclear Membrane Pattern Normal [facility] Comment on above: Performed By: #### L IPA, HSTROPN, TSH, CMP #### [facility] [address] [address] [address] Juan Zamarripa Nucleolar Pattern Normal [facility] Comment on above: Performed By: #### L IPA, HSTROPN, TSH, CMP #### [facility] [address] [address] [address] Juan Zamarripa PCNA Pattern Normal [facility] Comment on above: Performed By: #### L IPA, HSTROPN, TSH, CMP #### [facility] [address] [place] [address] Dr. Juan Zamarripa Speckled Pattern 1:160 Critically high [facility] Comment on above: Result Comment: ICAP nomenclature: AC-2,4,5,29 Performed By: #### L IPA, HSTROPN, TSH, CMP #### [facility] [address] [place] [address] Dr. Juan Zamarripa Spindle Apparatus Pattern Normal [facility] Comment on above: Performed By: #### L IPA, HSTROPN, TSH, CMP #### [facility] [address] [place] [address] Dr. Juan Zamarripa RHEUMATOID FACTORon 04-24-19 RA Latex Turbid. <10.0 Normal <14.0 [facility] Comment on above: Performed By: #### L IPA, HSTROPN, TSH, CMP #### [facility] [address] [place] [address] Dr. Juan Zamarripa CBC AUTO DIFFon 04-23-2022 BASO # 0.0 103/ul Normal 0.0-0.1 [facility] Comment on above: Performed By: #### C BC #### [facility] [address] [place] [address] Dr. Juan Zamarripa Basophils/100 WBC (Bld) 0.4 % Normal 0.2-2.0 [facility] Comment on above: Performed By: #### C BC #### [facility] [address] [place] [address] Dr. Juan Zamarripa EO # 0.1 103/ul Normal 0.0-0.7 [facility] Comment on above: Performed By: #### C BC #### [facility] [address] [place] [address] Dr. Juan Zamarripa Eosinophils/100 WBC (Bld) 1.8 % Normal 0.9-7.0 [facility] Comment on above: Performed By: #### C BC #### [facility] [address] [place] [address] Dr. Juan Zamarripa Erythrocyte distribution width (RBC) [Ratio] 12.6 % Normal 11.0-15.0 [facility] Comment on above: Performed By: #### C BC #### [facility] [address] [place] [address] Dr. Juan Zamarripa Hematocrit (Bld) [Volume fraction] 36.9 % Normal 36.0-48.0 [facility] Comment on above: Performed By: #### C BC #### [facility] [address] [place] [address] Dr. Juan Zamarripa Hemoglobin (Bld) [Mass/Vol] 12.6 g/dL Normal 12.0-16.0 [facility] Comment on above: Performed By: #### C BC #### [facility] [address] [place] [address] Dr. Juan Zamarripa IG # 0.02 10e3/ul Normal 0.00-0.03 [facility] Comment on above: Performed By: #### C BC #### [facility] [address] [place] [address] Dr. Juan Zamarripa IG % 0.3 % Normal 0.0-0.5 [facility] Comment on above: Performed By: #### C BC #### [facility] [address] [place] [address] Dr. Juan Zamarripa LYMPH # 3.3 103/ul Normal 1.2-3.8 [facility] Comment on above: Performed By: #### C BC #### [facility] [address] [place] [address] Dr. Juan Zamarripa Lymphocytes/100 WBC (Bld) 42.9 % Normal 20.5-60.0 [facility] Comment on above: Performed By: #### C BC #### [facility] [address] [place] [address] Dr. Juan Zamarripa MANUAL DIFF REQ NO Normal [facility] Comment on above: Performed By: #### C BC #### [facility] [address] [place] [address] Dr. Juan Zamarripa MCH (RBC) [Entitic mass] 31.2 pg Normal 26.7-34.0 [facility] Comment on above: Performed By: #### C BC #### [facility] [address] [address] [address] Juan Zamarripa MCHC (RBC) [Mass/Vol] 34.1 g/dL Normal 29.9-35.2 [facility] Comment on above: Performed By: #### C BC #### [facility] [address] [address] [address] Juan Zamarripa MCV (RBC) [Entitic vol] 91.3 fL Normal 81.0-99.0 [facility] Comment on above: Performed By: #### C BC #### [facility] [address] [address] [address] Juan Zamarripa MONO # 0.3 103/ul Normal 0.3-0.8 [facility] Comment on above: Performed By: #### C BC #### [facility] [address] [place] [address] Dr. Juan Zamarripa Monocytes/100 WBC (Bld) 4.4 % Normal 1.7-12.0 [facility] Comment on above: Performed By: #### C BC #### [facility] [address] [place] [address] Dr. Juan Zamarripa NEUT # 3.9 103/ul Normal 1.4-6.5 [facility] Comment on above: Performed By: #### C BC #### [facility] [address] [place] [address] Dr. Juan Zamarripa Neutrophils/100 WBC (Bld) 50.2 % Normal 43.0-75.0 [facility] Comment on above: Performed By: #### C BC #### [facility] [address] [address] [address] Juan Zamarripa Platelet mean volume (Bld) [Entitic vol] 9.0 fL Critically low 9.5-13.5 [facility] Comment on above: Performed By: #### C BC #### [facility] [address] [address] [address] Juan Zamarripa PLT 158 103/ul Normal 150-450 [facility] Comment on above: Performed By: #### C BC #### [facility] [address] [address] [address] Juan Zamarripa RBC 4.04 106/ul Critically low 4.20-5.40 [facility] Comment on above: Performed By: #### C BC #### [facility] [address] [place] [address] Dr. Juan Zamarripa WBC 7.8 103/ul Normal 4.0-11.0 [facility] Comment on above: Performed By: #### C BC #### [facility] [address] [address] [address] Juan Zamarripa CULTURE BLOODon 04-23-2022 Microscopic examination of blood, culture Culture Observations: NO GROWTH AT 5 DAYS. Normal [facility] Comment on above: Performed By: #### A 1C #### [facility] [address] [place] [address] Dr. Juan Zamarripa PROF 14(COMP METB)on 023 Albumin [Mass/Vol] 4.0 g/dL Normal 3.4-5.0 [facility] Comment on above: Performed By: #### L IPA, HSTROPN, TSH, CMP #### [facility] [address] [place] [address] Dr. Juan Zamarripa Albumin/Globulin [Mass ratio] 1.0 {ratio} Normal [facility] Comment on above: Performed By: #### L IPA, HSTROPN, TSH, CMP #### [facility] [address] [place] [address] Dr. Juan Zamarripa ALP [Catalytic activity/Vol] 87 U/L Normal 46-116 [facility] Comment on above: Performed By: #### L IPA, HSTROPN, TSH, CMP #### [facility] [address] [place] [address] Dr. Juan Zamarripa ALT [Catalytic activity/Vol] 78 U/L Critically high 14-59 [facility] Comment on above: Performed By: #### L IPA, HSTROPN, TSH, CMP #### [facility] [address] [place] [address] Dr. Juan Zamarripa Anion gap [Moles/Vol] 12.4 mmol/L Normal Th e [facility] Comment on above: Performed By: #### L IPA, HSTROPN, TSH, CMP #### [facility] [address] [address] [address] Juan Zamarripa AST [Catalytic activity/Vol] 39 U/L Critically high 15-37 [facility] Comment on above: Performed By: #### L IPA, HSTROPN, TSH, CMP #### [facility] [address] [address] [address] Juan Zamarripa Bilirubin [Mass/Vol] 0.7 mg/dL Normal 0.2-1.0 [facility] Comment on above: Performed By: #### L IPA, HSTROPN, TSH, CMP #### [facility] [address] [place] [address] Dr. Juan Zamarripa Calcium [Mass/Vol] 9.6 mg/dL Normal 8.5-10.1 [facility] Comment on above: Performed By: #### L IPA, HSTROPN, TSH, CMP #### [facility] [address] [address] [address] Juan Zamarripa Chloride [Moles/Vol] 101 mmol/L Normal 98-107 [facility] Comment on above: Performed By: #### L IPA, HSTROPN, TSH, CMP #### [facility] [address] [address] [address] Juan Zamarripa CO2 [Moles/Vol] 29.5 mmol/L Normal 21.0-32.0 [facility] Comment on above: Performed By: #### L IPA, HSTROPN, TSH, CMP #### [facility] [address] [place] [address] Dr. Juan Zamarripa Creatinine [Mass/Vol] 0.84 mg/dL Normal 0.55-1.02 [facility] Comment on above: Performed By: #### L IPA, HSTROPN, TSH, CMP #### [facility] [address] [place] [address] Dr. Juan Zamarripa EGFR-AF PALAUAN >60 Normal >=60 [facility] Comment on above: Performed By: #### L IPA, HSTROPN, TSH, CMP #### [facility] [address] [address] [address] Juan Zamarripa EGFR-NON AF PALAUAN >60 Normal >=60 [facility] Comment on above: Performed By: #### L IPA, HSTROPN, TSH, CMP #### [facility] [address] [address] [address] Juan Zamarripa Globulin (S) [Mass/Vol] 4.0 g/dL Normal [facility] Comment on above: Performed By: #### L IPA, HSTROPN, TSH, CMP #### [facility] [address] [place] [address] Dr. Juan Zamarripa Glucose [Mass/Vol] 208 mg/dL Critically high 74-106 [facility] Comment on above: Performed By: #### L IPA, HSTROPN, TSH, CMP #### [facility] [address] [place] [address] Dr. Juan Zamarripa Potassium [Moles/Vol] 3.9 mmol/L Normal 3.5-5.1 [facility] Comment on above: Performed By: #### L IPA, HSTROPN, TSH, CMP #### [facility] [address] [address] [address] Juan Zamarripa Protein [Mass/Vol] 8.0 g/dL Normal 6.4-8.2 [facility] Comment on above: Performed By: #### L IPA, HSTROPN, TSH, CMP #### [facility] [address] [place] [address] Dr. Juan Zamarripa Sodium [Moles/Vol] 139 mmol/L Normal 136-145 [facility] Comment on above: Performed By: #### L IPA, HSTROPN, TSH, CMP #### [facility] [address] [place] [address] Dr. Juan Zamarripa Urea nitrogen [Mass/Vol] 15.0 mg/dL Normal 7.0-18.0 [facility] Comment on above: Performed By: #### L IPA, HSTROPN, TSH, CMP #### [facility] [address] [place] [address] Dr. Juan Zamarripa Urea nitrogen/Creatinine [Mass ratio] 17.9 mg/mg Normal [facility] Comment on above: Performed By: #### L IPA, HSTROPN, TSH, CMP #### [facility] [address] [place] [address] Dr. Juan Zamarripa SED RATE WESTERGRENon 2022 SED RATE 26 mm/hr Normal <=30 [facility] Comment on above: Performed By: #### L IPA, HSTROPN, TSH, CMP #### [facility] [address] [place] [address] Dr. Juan Zamarripa CULTURE BLOODon 04-18-2022 Microscopic [...] C Trimethoprim/Sulfamethox azole <=10 S C Normal [facility] Comment on above: Performed By: #### A 1C #### [facility] [address] [place] [address] Dr. Juan Zamarripa CBC AUTO DIFFon 04-13-2022 BASO # 0.1 103/ul Normal 0.0-0.1 [facility] Comment on above: Performed By: #### C BC #### [facility] [address] [place] [address] Dr. Juan Zamarripa Basophils/100 WBC (Bld) 0.6 % Normal 0.2-2.0 [facility] Comment on above: Performed By: #### C BC #### [facility] [address] [place] [address] Dr. Juan Zamarripa EO # 0.2 103/ul Normal 0.0-0.7 [facility] Comment on above: Performed By: #### C BC #### [facility] [address] [place] [address] Dr. Juan Zamarripa Eosinophils/100 WBC (Bld) 1.6 % Normal 0.9-7.0 [facility] Comment on above: Performed By: #### C BC #### [facility] [address] [place] [address] Dr. Juan Zamarripa Erythrocyte distribution width (RBC) [Ratio] 12.6 % Normal 11.0-15.0 [facility] Comment on above: Performed By: #### C BC #### [facility] [address] [place] [address] Dr. Juan Zamarripa Hematocrit (Bld) [Volume fraction] 36.1 % Normal 36.0-48.0 [facility] Comment on above: Performed By: #### C BC #### [facility] [address] [place] [address] Dr. Juan Zamarripa Hemoglobin (Bld) [Mass/Vol] 12.5 g/dL Normal 12.0-16.0 [facility] Comment on above: Performed By: #### C BC #### [facility] [address] [place] [address] Dr. Juan Zamarripa IG # 0.02 10e3/ul Normal 0.00-0.03 [facility] Comment on above: Performed By: #### C BC #### [facility] [address] [place] [address] Dr. Juan Zamarripa IG % 0.2 % Normal 0.0-0.5 [facility] Comment on above: Performed By: #### C BC #### [facility] [address] [place] [address] Dr. Juan Zamarripa LYMPH # 4.8 103/ul Critically high 1.2-3.8 [facility] Comment on above: Performed By: #### C BC #### [facility] [address] [place] [address] Dr. Juan Zamarrpia Lymphocytes/100 WBC (Bld) 49.6 % Normal 20.5-60.0 [facility] Comment on above: Performed By: #### C BC #### [facility] [address] [place] [address] Dr. Juan Zamarripa MANUAL DIFF REQ NO Normal [facility] Comment on above: Performed By: #### C BC #### [facility] [address] [place] [address] Dr. Juan Zamarripa MCH (RBC) [Entitic mass] 31.3 pg Normal 26.7-34.0 [facility] Comment on above: Performed By: #### C BC #### [facility] [address] [place] [address] Dr. Juan Zamarripa MCHC (RBC) [Mass/Vol] 34.6 g/dL Normal 29.9-35.2 [facility] Comment on above: Performed By: #### C BC #### [facility] [address] [place] [address] Dr. Juan Zamarripa MCV (RBC) [Entitic vol] 90.3 fL Normal 81.0-99.0 [facility] Comment on above: Performed By: #### C BC #### [facility] [address] [place] [address] Dr. Juan Zamarripa MONO # 0.5 103/ul Normal 0.3-0.8 [facility] Comment on above: Performed By: #### C BC #### [facility] [address] [place] [address] Dr. Juan Zamarripa Monocytes/100 WBC (Bld) 4.8 % Normal 1.7-12.0 [facility] Comment on above: Performed By: #### C BC #### [facility] [address] [place] [address] Dr. Juan Zamarripa NEUT # 4.2 103/ul Normal 1.4-6.5 [facility] Comment on above: Performed By: #### C BC #### [facility] [address] [place] [address] Dr. Juan Zamarripa Neutrophils/100 WBC (Bld) 43.2 % Normal 43.0-75.0 [facility] Comment on above: Performed By: #### C BC #### [facility] [address] [place] [address] Dr. Juan Zamarripa Platelet mean volume (Bld) [Entitic vol] 9.5 fL Normal 9.5-13.5 [facility] Comment on above: Performed By: #### C BC #### [facility] [address] [place] [address] Dr. Juan Zamarripa PLT 149 103/ul Critically low 150-450 [facility] Comment on above: Performed By: #### C BC #### [facility] [address] [place] [address] Dr. Juan Zamarripa RBC 4.00 106/ul Critically low 4.20-5.40 [facility] Comment on above: Performed By: #### C BC #### [facility] [address] [place] [address] Dr. Juan Zamarripa WBC 9.6 103/ul Normal 4.0-11.0 [facility] Comment on above: Performed By: #### C BC #### [facility] [address] [place] [address] Dr. Juan Zamarripa PROF CHEM 8 (BAS METB)on Anion gap [Moles/Vol] 11.4 mmol/L Normal [facility] Comment on above: Performed By: #### L IPA, HSTROPN, TSH, CMP #### [facility] [address] [place] [address] Dr. Juan Zamarripa Calcium [Mass/Vol] 8.7 mg/dL Normal 8.5-10.1 [facility] Comment on above: Performed By: #### L IPA, HSTROPN, TSH, CMP #### [facility] [address] [address] [address] Juan Zamarripa Chloride [Moles/Vol] 102 mmol/L Normal 98-107 [facility] Comment on above: Performed By: #### L IPA, HSTROPN, TSH, CMP #### [facility] [address] [address] [address] Juan Zamarripa CO2 [Moles/Vol] 28.5 mmol/L Normal 21.0-32.0 [facility] Comment on above: Performed By: #### L IPA, HSTROPN, TSH, CMP #### [facility] [address] [address] [address] Juan Zamarripa Creatinine [Mass/Vol] 0.88 mg/dL Normal 0.55-1.02 [facility] Comment on above: Performed By: #### L IPA, HSTROPN, TSH, CMP #### [facility] [address] [address] [address] Juan Zamarripa EGFR-AF PALAUAN >60 Normal >=60 [facility] Comment on above: Performed By: #### L IPA, HSTROPN, TSH, CMP #### [facility] [address] [address] [address] Juan Zamarripa EGFR-NON AF PALAUAN >60 Normal >=60 [facility] Comment on above: Performed By: #### L IPA, HSTROPN, TSH, CMP #### [facility] [address] [address] [address] Juan Zamarripa Glucose [Mass/Vol] 129 mg/dL Critically high 74-106 [facility] Comment on above: Performed By: #### L IPA, HSTROPN, TSH, CMP #### [facility] [address] [address] [address] Juan Zamarripa Potassium [Moles/Vol] 3.9 mmol/L Normal 3.5-5.1 [facility] Comment on above: Performed By: #### L IPA, HSTROPN, TSH, CMP #### [facility] [address] [address] [address] Juan Zamarripa Sodium [Moles/Vol] 138 mmol/L Normal 136-[address] [facility] Comment on above: Performed By: #### L IPA, HSTROPN, TSH, CMP #### [facility] [address] [place] [address] Dr. Juan Zamarripa Urea nitrogen [Mass/Vol] 12.0 mg/dL Normal 7.0-18.0 [facility] Comment on above: Performed By: #### L IPA, HSTROPN, TSH, CMP #### [facility] [address] [place] [address] Dr. Juan Zamarripa Urea nitrogen/Creatinine [Mass ratio] 13.6 mg/mg Normal [facility] Comment on above: Performed By: #### L IPA, HSTROPN, TSH, CMP #### [facility] [address] [place] [address] Dr. Juan Zamarripa ACETONE SERUMon 04-12-2022 ACETONE Negative Normal NEGATIVE [facility] Comment on above: Performed By: #### C BC #### [facility] [address] [place] [address] Dr. Juan Zamarripa BLOOD CULTURE ID PANELon A. baumannii Not detected Normal NOT DETECTED [facility] Comment on above: Performed By: #### L IPA, HSTROPN, TSH, CMP #### [facility] [address] [place] [address] Dr. Juan Zamarripa Bacteriodes fragilis Not detected Normal NOT DETECTED [facility] Comment on above: Performed By: #### L IPA, HSTROPN, TSH, CMP #### [facility] [address] [place] [address] Dr. Juan Zamarripa BCID CONTROLS PASSED Normal [facility] Comment on above: Performed By: #### L IPA, HSTROPN, TSH, CMP #### [facility] [address] [place] [address] Dr. Juan Zamarripa BCIDBTHD BLOOD CULTURE BOTTLE INFORMATION Normal [facility] Comment on above: Performed By: #### L IPA, HSTROPN, TSH, CMP #### [facility] [address] [place] [address] Dr. Juan Zamarripa BCIDHD1 ANTIMICROBIAL RESIST ANCE GENES Normal [facility] Comment on above: Performed By: #### L IPA, HSTROPN, TSH, CMP #### [facility] [address] [address] [address] Juan Zamarripa BCIDHD2 SEE BELOW [facility] Comment on above: Result Comment: Note : Antimicrobial resitance can occur via multiple mechanisms. A Not Detected result for the [employer] antomicrobial resistance gene assays does not indicate antimicrobial susceptibility. Subculturing is required for species identification and susceptibility testing of isolates. Performed By: #### L IPA, HSTROPN, TSH, CMP #### [facility] [address] [address] [address] Juan Zamarripa BCIDHD3 Positive Normal [facility] Comment on above: Performed By: #### L IPA, HSTROPN, TSH, CMP #### [facility] [address] [address] [address] Juan Zamarripa BCIDHD4 Negative Normal [facility] Comment on above: Performed By: #### L IPA, HSTROPN, TSH, CMP #### [facility] [address] [address] [address] Juan Zamarripa BCIDHD5 YEAST Normal [facility] Comment on above: Performed By: #### L IPA, HSTROPN, TSH, CMP #### [facility] [address] [address] [address] Juan Zamarripa Bottle Set: Set 1 Normal [facility] Comment on above: Performed By: #### L IPA, HSTROPN, TSH, CMP #### [facility] [address] [address] [address] Juan Zamarripa Bottle: Anaerobic Normal [facility] Comment on above: Performed By: #### L IPA, HSTROPN, TSH, CMP #### [facility] [address] [address] [address] Juan Zamarripa C. neoformans/gattii Not detected Normal NOT DETECTED [facility] Comment on above: Performed By: #### L IPA, HSTROPN, TSH, CMP #### [facility] [address] [address] [address] Juan Zamarripa Mary Lou albicans Not detected Normal NOT DETECTED [facility] Comment on above: Performed By: #### L IPA, HSTROPN, TSH, CMP #### [facility] [address] [address] [address] Juan Zamarripa Mary [place] auris Not detected Normal NOT DETECTED [facility] Comment on above: Performed By: #### L IPA, HSTROPN, TSH, CMP #### [facility] [address] [address] [address] Juan Zamarripa Mary Lou glabrata Not detected Normal NOT DETECTED [facility] Comment on above: Performed By: #### L IPA, HSTROPN, TSH, CMP #### [facility] [address] [address] [address] Juan Zamarripa Mary Lou Krusei Not detected Normal NOT DETECTED [facility] Comment on above: Performed By: #### L IPA, HSTROPN, TSH, CMP #### [facility] [address] [place] [address] Dr. Juan Zamarripa Mary [place] Parapsilosis Not detected Normal NOT DETECTED [facility] Comment on above: Performed By: #### L IPA, HSTROPN, TSH, CMP #### [facility] [address] [place] [address] Dr. Juan Zamarripa Mary Lou Tropicalis Not detected Normal NOT DETECTED [facility] Comment on above: Performed By: #### L IPA, HSTROPN, TSH, CMP #### [facility] [address] [address] [address] Juan Zamarripa CTX-M Resistant Gene Not Applicable Normal NOT DETECTED [facility] Comment on above: Performed By: #### L IPA, HSTROPN, TSH, CMP #### [facility] [address] [address] [address] Juan Zamarripa E. Cloacae complex Not detected Normal NOT DETECTED [facility] Comment on above: Performed By: #### L IPA, HSTROPN, TSH, CMP #### [facility] [address] [address] [address] Juan Zamarripa E. faecalis Not detected Normal NOT DETECTED [facility] Comment on above: Performed By: #### L IPA, HSTROPN, TSH, CMP #### [facility] [address] [place] [address] Dr. Juan Zamarripa E. faecium Not detected Normal NOT DETECTED [facility] Comment on above: Performed By: #### L IPA, HSTROPN, TSH, CMP #### [facility] [address] [place] [address] Dr. Juan Zamarripa Enterobacteriaceae Not detected Normal NOT DETECTED [facility] Comment on above: Performed By: #### L IPA, HSTROPN, TSH, CMP #### [facility] [address] [place] [address] Dr. Juan Zamarripa Escherichia coli Not detected Normal NOT DETECTED [facility] Comment on above: Performed By: #### L IPA, HSTROPN, TSH, CMP #### [facility] [address] [place] [address] Dr. Juan Zamarripa H. influenzae Not detected Normal NOT DETECTED [facility] Comment on above: Performed By: #### L IPA, HSTROPN, TSH, CMP #### [facility] [address] [place] [address] Dr. Juan Zamarripa IMP Resistant Gene Not Applicable Normal NOT DETECTED [facility] Comment on above: Performed By: #### L IPA, HSTROPN, TSH, CMP #### [facility] [address] [place] [address] Dr. Jaun Zamarripa K. oxytoca Not detected Normal NOT DETECTED [facility] Comment on above: Performed By: #### L IPA, HSTROPN, TSH, CMP #### [facility] [address] [place] [address] Dr. Juan Zamarripa K. pneumoniae Not detected Normal NOT DETECTED [facility] Comment on above: Performed By: #### L IPA, HSTROPN, TSH, CMP #### [facility] [address] [place] [address] Dr. Juan Zamarripa Klebsiella aerogenes Not detected Normal NOT DETECTED [facility] Comment on above: Performed By: #### L IPA, HSTROPN, TSH, CMP #### [facility] [address] [address] [address] Juan Zamarripa KPC Resistant Gene Not Applicable Normal NOT DETECTED [facility] Comment on above: Performed By: #### L IPA, HSTROPN, TSH, CMP #### [facility] [address] [address] [address] Juan Zamarripa List. monocytogenes Not detected Normal NOT DETECTED [facility] Comment on above: Performed By: #### L IPA, HSTROPN, TSH, CMP #### [facility] [address] [address] [address] Juan Zamarripa Mcr-1 Resistant Gene Not Applicable Normal NOT DETECTED [facility] Comment on above: Performed By: #### L IPA, HSTROPN, TSH, CMP #### [facility] [address] [place] [address] Dr. Juan Zamarripa mecA/C Not Applicable Normal NOT DETECTED [facility] Comment on above: Performed By: #### L IPA, HSTROPN, TSH, CMP #### [facility] [address] [address] [address] Juan Zamarripa mecA/C MREJ Not Applicable Normal NOT DETECTED [facility] Comment on above: Performed By: #### L IPA, HSTROPN, TSH, CMP #### [facility] [address] [address] [address] Juan Zamarripa N. meningitidis Not detected Normal NOT DETECTED [facility] Comment on above: Performed By: #### L IPA, HSTROPN, TSH, CMP #### [facility] [address] [address] [address] Juan Zamarripa NDM Resistant Gene Not Applicable Normal NOT DETECTED [facility] Comment on above: Performed By: #### L IPA, HSTROPN, TSH, CMP #### [facility] [address] [address] [address] Juan Zamarripa Oxa-48-like Not Applicable Normal NOT DETECTED [facility] Comment on above: Performed By: #### L IPA, HSTROPN, TSH, CMP #### [facility] [address] [address] [address] Juan Zamarripa Proteus Not detected Normal NOT DETECTED [facility] Comment on above: Performed By: #### L IPA, HSTROPN, TSH, CMP #### [facility] [address] [address] [address] Juan Zamarripa Pseud. aeruginosa Not detected Normal NOT DETECTED [facility] Comment on above: Performed By: #### L IPA, HSTROPN, TSH, CMP #### [facility] [address] [address] [address] Juan Zamarripa S. maltophilia Not detected Normal NOT DETECTED [facility] Comment on above: Performed By: #### L IPA, HSTROPN, TSH, CMP #### [facility] [address] [place] [address] Dr. Juan Zamarripa Salmonella Not detected Normal NOT DETECTED [facility] Comment on above: Performed By: #### L IPA, HSTROPN, TSH, CMP #### [facility] [address] [place] [address] Dr. Juan Zamarripa Seratia marcescens Not detected Normal NOT DETECTED [facility] Comment on above: Performed By: #### L IPA, HSTROPN, TSH, CMP #### [facility] [address] [place] [address] Dr. Juan Zamarripa Site: Rt Ac Normal [facility] Comment on above: Performed By: #### L IPA, HSTROPN, TSH, CMP #### [facility] [address] [address] [address] Juan Zamarripa Staph. aureus Not detected Normal NOT DETECTED [facility] Comment on above: Performed By: #### L IPA, HSTROPN, TSH, CMP #### [facility] [address] [place] [address] Dr. Juan Zamarripa Staph. epidermidis Not detected Normal NOT DETECTED [facility] Comment on above: Performed By: #### L IPA, HSTROPN, TSH, CMP #### [facility] [address] [address] [address] Juan Zamarripa Staph. lugdunensis Not detected Normal NOT DETECTED [facility] Comment on above: Performed By: #### L IPA, HSTROPN, TSH, CMP #### [facility] [address] [address] [address] Juan Zamarripa Staphylococcus Detected Critically abnormal NOT DETECTED [facility] Comment on above: Performed By: #### L IPA, HSTROPN, TSH, CMP #### [facility] [address] [address] [address] Juan Zamarripa Strep. agalactiae Not detected Normal NOT DETECTED [facility] Comment on above: Performed By: #### L IPA, HSTROPN, TSH, CMP #### [facility] [address] [place] [address] Dr. Juan Zamarripa Strep. pneumoniae Not detected Normal NOT DETECTED [facility] Comment on above: Performed By: #### L IPA, HSTROPN, TSH, CMP #### [facility] [address] [place] [address] Dr. Juan Zamarripa Strep. pyogenes Not detected Normal NOT DETECTED [facility] Comment on above: Performed By: #### L IPA, HSTROPN, TSH, CMP #### [facility] [address] [place] [address] Dr. Juan Zamarripa Streptococcus Not detected Normal NOT DETECTED [facility] Comment on above: Performed By: #### L IPA, HSTROPN, TSH, CMP #### [facility] [address] [place] [address] Dr. Juan Zamarripa Aleyda/B Resist. Gene Not Applicable Normal NOT DETECTED [facility] Comment on above: Performed By: #### L IPA, HSTROPN, TSH, CMP #### [facility] [address] [place] [address] Dr. Juan Zamarripa VIM Resistant Gene Not Applicable Normal NOT DETECTED [facility] Comment on above: Performed By: #### L IPA, HSTROPN, TSH, CMP #### [facility] [address] [place] [address] Dr. Juan Zamarripa CBC AUTO DIFFon 04-12-2022 BASO # 0.1 103/ul Normal 0.0-0.1 [facility] Comment on above: Performed By: #### L IPA, HSTROPN, TSH, CMP #### [facility] [address] [place] [address] Dr. Juan Zamarripa Basophils/100 WBC (Bld) 0.6 % Normal 0.2-2.0 [facility] Comment on above: Performed By: #### L IPA, HSTROPN, TSH, CMP #### [facility] [address] [place] [address] Dr. Juan Zamarripa EO # 0.1 103/ul Normal 0.0-0.7 [facility] Comment on above: Performed By: #### L IPA, HSTROPN, TSH, CMP #### [facility] [address] [place] [address] Dr. Juan Zamarripa Eosinophils/100 WBC (Bld) 0.9 % Normal 0.9-7.0 [facility] Comment on above: Performed By: #### L IPA, HSTROPN, TSH, CMP #### [facility] [address] [place] [address] Dr. Juan Zamarripa Erythrocyte distribution width (RBC) [Ratio] 12.8 % Normal 11.0-15.0 [facility] Comment on above: Performed By: #### L IPA, HSTROPN, TSH, CMP #### [facility] [address] [place] [address] Dr. Juan Zamarripa Hematocrit (Bld) [Volume fraction] 42.9 % Normal 36.0-48.0 [facility] Comment on above: Performed By: #### L IPA, HSTROPN, TSH, CMP #### [facility] [address] [place] [address] Dr. Juan Zamarripa Hemoglobin (Bld) [Mass/Vol] 15.1 g/dL Normal 12.0-16.0 [facility] Comment on above: Performed By: #### L IPA, HSTROPN, TSH, CMP #### [facility] [address] [place] [address] Dr. Juan Zamarripa IG # 0.04 10e3/ul Critically high 0.00-0.03 [facility] Comment on above: Performed By: #### L IPA, HSTROPN, TSH, CMP #### [facility] [address] [place] [address] Dr. Juan Zamarripa IG % 0.3 % Normal 0.0-0.5 [facility] Comment on above: Performed By: #### L IPA, HSTROPN, TSH, CMP #### [facility] [address] [place] [address] Dr. Juan Zamarripa LYMPH # 5.0 103/ul Critically high 1.2-3.8 [facility] Comment on above: Performed By: #### L IPA, HSTROPN, TSH, CMP #### [facility] [address] [place] [address] Dr. Juan Zamarripa Lymphocytes/100 WBC (Bld) 43.6 % Normal 20.5-60.0 [facility] Comment on above: Performed By: #### L IPA, HSTROPN, TSH, CMP #### [facility] [address] [place] [address] Dr. Juan Zamarripa MANUAL DIFF REQ NO Normal [facility] Comment on above: Performed By: #### L IPA, HSTROPN, TSH, CMP #### [facility] [address] [place] [address] Dr. Juan Zamarripa MCH (RBC) [Entitic mass] 31.3 pg Normal 26.7-34.0 [facility] Comment on above: Performed By: #### L IPA, HSTROPN, TSH, CMP #### [facility] [address] [place] [address] Dr. Juan Zamarripa MCHC (RBC) [Mass/Vol] 35.2 g/dL Normal 29.9-35.2 [facility] Comment on above: Performed By: #### L IPA, HSTROPN, TSH, CMP #### [facility] [address] [place] [address] Dr. Juan Zamarripa MCV (RBC) [Entitic vol] 88.8 fL Normal 81.0-99.0 [facility] Comment on above: Performed By: #### L IPA, HSTROPN, TSH, CMP #### [facility] [address] [place] [address] Dr. Juan Zamarripa MONO # 0.6 103/ul Normal 0.3-0.8 [facility] Comment on above: Performed By: #### L IPA, HSTROPN, TSH, CMP #### [facility] [address] [place] [address] Dr. Juan Zamarripa Monocytes/100 WBC (Bld) 5.2 % Normal 1.7-12.0 [facility] Comment on above: Performed By: #### L IPA, HSTROPN, TSH, CMP #### [facility] [address] [place] [address] Dr. Juan Zamarripa NEUT # 5.7 103/ul Normal 1.4-6.5 [facility] Comment on above: Performed By: #### L IPA, HSTROPN, TSH, CMP #### [facility] [address] [place] [address] Dr. Juan Zamarripa Neutrophils/100 WBC (Bld) 49.4 % Normal 43.0-75.0 [facility] Comment on above: Performed By: #### L IPA, HSTROPN, TSH, CMP #### [facility] [address] [place] [address] Dr. Juan Zamarripa Platelet mean volume (Bld) [Entitic vol] 9.6 fL Normal 9.5-13.5 [facility] Comment on above: Performed By: #### L IPA, HSTROPN, TSH, CMP #### [facility] [address] [place] [address] Dr. Juan Zamarripa PLT 210 103/ul Normal 150-450 [facility] Comment on above: Performed By: #### L IPA, HSTROPN, TSH, CMP #### [facility] [address] [place] [address] Dr. Juan Zamarripa RBC 4.83 106/ul Normal 4.20-5.40 [facility] Comment on above: Performed By: #### L IPA, HSTROPN, TSH, CMP #### [facility] [address] [place], [place] [address] Dr. Juan Zamarripa WBC 11.5 103/ul Critically high 4.0-11.0 [facility] Comment on above: Performed By: #### L IPA, HSTROPN, TSH, CMP #### [facility] [address] [place], [place] [address] ABD/PELV W CONon [...] CARO SIBLEY Date: 2022-04-12 16:53 Normal [facility] CULTURE BLOODon 04-12-2022 Microscopic examination of blood, culture Culture Observations: NO GROWTH AT 5 DAYS. Isolate 1 [id number] Normal [facility] Comment on above: Performed By: #### A 1C #### [facility] [address] [place] [address] Dr. Juan Zamarripa CULTURE URINEon 04-12-2022 CULTURE URINE Culture Observations : MODERATE GROWTH OF MIXED GENITAL ALDA. NO POTENTIAL PATHOGENS SEEN. Normal [facility] Comment on above: Performed By: #### U RCX #### [facility] [address] [place] [address] Dr. Juan Zamarripa Covid-19 PCR ([facility])on SARS-CoV-2 (COVID-19) RNA SUNNY+probe Ql (Unsp spec) Not detected Normal NOT DETECTED [facility] Comment on above: Result Comment: When [...] for this test is supported by the [place] [employer]'s declaration that [...] #### L IPA, HSTROPN, TSH, CMP #### [facility] [address] [place] [address] Dr. Juan Zamarripa ER URINE PROFILEon 3 Bilirubin Ql (U) Negative Normal NEGATIVE [facility] Comment on above: Performed By: #### C BC #### [facility] [address] [address] [address] Juan Zamarripa Clarity (U) SL CLOUDY Abnormal CLEAR [facility] Comment on above: Performed By: #### C BC #### [facility] [address] [address] [address] Juan Zamarripa Color (U) LT. YELLOW Normal YELLOW [facility] Comment on above: Performed By: #### C BC #### [facility] [address] [place] [address] Dr. Juan Zamarripa ERUAHD A micrscopic examina tion will be performed if indicated. Normal [facility] Comment on above: Performed By: #### C BC #### [facility] [address] [place] [address] Dr. Juan Zamarripa Glucose Ql (U) 250 mg/dl Abnormal NEGATIVE [facility] Comment on above: Performed By: #### C BC #### [facility] [address] [place] [address] Dr. Juan Zamarripa Hemoglobin Ql (U) Negative Normal NEGATIVE [facility] Comment on above: Performed By: #### C BC #### [facility] [address] [place] [address] Dr. Juan Zamarripa Ketones Ql (U) TRACE Abnormal NEGATIVE [facility] Comment on above: Performed By: #### C BC #### [facility] [address] [place] [address] Dr. Juan Zamarripa LEUKOCYTES SMALL Abnormal NEGATIVE [facility] Comment on above: Performed By: #### C BC #### [facility] [address] [place] [address] Dr. Juan Zamarripa Nitrite Ql (U) Negative Normal NEGATIVE [facility] Comment on above: Performed By: #### C BC #### [facility] [address] [place] [address] Dr. Juan Zamarripa pH (U) 5.5 [pH] Normal 5-9 [facility] Comment on above: Performed By: #### C BC #### [facility] [address] [place] [address] Dr. Juan Zamarripa SPEC GRAVITY 1.030 Abnormal 1.005-<=1. 025 [facility] Comment on above: Performed By: #### C BC #### [facility] [address] [place] [address] Dr. Juan Zamarripa UA PROTEIN Negative Normal NEGATIVE/ TRACE [facility] Comment on above: Performed By: #### C BC #### [facility] [address] [place] [address] Dr. Juan Zamarripa UR MICRO IND INDICATED Normal [facility] Comment on above: Performed By: #### C BC #### [facility] [address] [place] [address] Dr. Juan Zamarripa Urobilinogen Qn (U) 0.2 {Amee'U}/dL Normal 0.2 - 1. 0 [facility] Comment on above: Performed By: #### C BC #### [facility] [address] [place] [address] Dr. Juan Zamarripa INFLUENZA A AND B AGon 04-12 INFLUANEGH SEE BELOW Normal [facility] Comment on above: Result Comment: Nega tive for Flu A protein angiten. Infection due to Flu A cannot be ruled out. Flu A angiten in the sample may be below the detection limit of the test. Performed By: #### L IPA, HSTROPN, TSH, CMP #### [facility] [address] [place] [address] Dr. Juan Zamarripa INFLUBNEGH SEE BELOW Normal [facility] Comment on above: Result Comment: Nega tive for Flu B protein antigen. Infection due to Flu B cannot be ruled out. Flu B antigen in the sample may be below the detection limit of the test. Performed By: #### L IPA, HSTROPN, TSH, CMP #### [facility] [address] [place] [address] Dr. Juan Zamarripa INFLUENZA A AG Negative Normal NEGATIVE SEE COMMENT [facility] Comment on above: Performed By: #### L IPA, HSTROPN, TSH, CMP #### [facility] [address] [place] [address] Dr. Juan Zamarripa INFLUENZA B AG Negative Normal NEGATIVE SEE COMMENT [facility] Comment on above: Performed By: #### L IPA HSTROPN, TSH, CMP #### [facility] [address] [place] [address] Dr. Juan Zamarripa LACTATE/LACTIC ACIDon 2022 Lactate [Moles/Vol] 1.8 mmol/L Normal 0.4-1.9 [facility] Comment on above: Performed By: #### C BC #### [facility] [address] [place] [address] Dr. Juan Zamarripa Lactate [Moles/Vol] 3.1 mmol/L Critically high 0.4-1.9 [facility] Comment on above: Performed By: #### L IPA, HSTROPN, TSH, CMP #### [facility] [address] [place] [address] Dr. Juan Zamarripa LIPASEon 04-12-2022 Lipase [Catalytic activity/Vol] 183.0 U/L Normal 73.0-393.0 [facility] Comment on above: Performed By: #### A 1C #### [facility] [address] [place] [address] Dr. Juan Zamarripa PH VENOUS BLOODon 04-12-2022 PCO2 VENOUS 42.9 mmHg Normal 40.0-52.0 [facility] Comment on above: Performed By: #### C BC #### [facility] [address] [place] [address] Dr. Juan Zamarripa pH VENOUS 7.383 Normal 7.330-7.43 0 [facility] Comment on above: Performed By: #### C BC #### [facility] [address] [place] [address] Dr. Juan Zamarripa PROF 14(COMP METB)on 023 Albumin [Mass/Vol] 4.3 g/dL Normal 3.4-5.0 [facility] Comment on above: Performed By: #### A 1C #### [facility] [address] [place] [address] Dr. Juan Zamarripa Albumin/Globulin [Mass ratio] 1.0 {ratio} Normal [facility] Comment on above: Performed By: #### A 1C #### [facility] [address] [address] [address] Juan Zamarripa ALP [Catalytic activity/Vol] 96 U/L Normal 46-116 [facility] Comment on above: Performed By: #### A 1C #### [facility] [address] [address] [address] Juan Zamarripa ALT [Catalytic activity/Vol] 80 U/L Critically high 14-59 [facility] Comment on above: Performed By: #### A 1C #### [facility] [address] [address] [address] Juan Zamarripa Anion gap [Moles/Vol] 14.7 mmol/L Normal [facility] Comment on above: Performed By: #### A 1C #### [facility] [address] [address] [address] Juan Zamarripa AST [Catalytic activity/Vol] 45 U/L Critically high 15-37 [facility] Comment on above: Performed By: #### A 1C #### [facility] [address] [address] [address] Juan Zamarripa Bilirubin [Mass/Vol] 0.8 mg/dL Normal 0.2-1.0 [facility] Comment on above: Performed By: #### A 1C #### [facility] [address] [address] [address] Juan Zamarripa Calcium [Mass/Vol] 10.0 mg/dL Normal 8.5-10.1 [facility] Comment on above: Performed By: #### A 1C #### [facility] [address] [address] [address] Juan Zamarripa Chloride [Moles/Vol] 99 mmol/L Normal 98-107 [facility] Comment on above: Performed By: #### A 1C #### [facility] [address] [address] [address] Juan Zamarripa CO2 [Moles/Vol] 26.4 mmol/L Normal 21.0-32.0 [facility] Comment on above: Performed By: #### A 1C #### [facility] [address] [address] [address] Juan Zamarripa Creatinine [Mass/Vol] 0.89 mg/dL Normal 0.55-1.02 [facility] Comment on above: Performed By: #### A 1C #### [facility] [address] [address] [address] Juan Zamarripa EGFR-AF PALAUAN >60 Normal >=60 [facility] Comment on above: Performed By: #### A 1C #### [facility] [address] [address] [address] Juan Zamarripa EGFR-NON AF PALAUAN >60 Normal >=60 [facility] Comment on above: Performed By: #### A 1C #### [facility] [address] [address] [address] Juan Zamarripa Globulin (S) [Mass/Vol] 4.3 g/dL Normal [facility] Comment on above: Performed By: #### A 1C #### [facility] [address] [place] [address] Dr. Juan Zamarripa Glucose [Mass/Vol] 168 mg/dL Critically high 74-106 [facility] Comment on above: Performed By: #### A 1C #### [facility] [address] [place] [address] Dr. Juan Zamarripa Potassium [Moles/Vol] 4.1 mmol/L Normal 3.5-5.1 [facility] Comment on above: Performed By: #### A 1C #### [facility] [address] [place] [address] Dr. Juan Zamarripa Protein [Mass/Vol] 8.6 g/dL Critically high 6.4-8.2 [facility] Comment on above: Performed By: #### A 1C #### [facility] [address] [place] [address] Dr. Juan Zamarripa Sodium [Moles/Vol] 136 mmol/L Normal 136-145 [facility] Comment on above: Performed By: #### A 1C #### [facility] [address] [place] [address] Dr. Juan Zamarripa Urea nitrogen [Mass/Vol] 18.0 mg/dL Normal 7.0-18.0 [facility] Comment on above: Performed By: #### A 1C #### [facility] [address] [place] [address] Dr. Juan Zamarripa Urea nitrogen/Creatinine [Mass ratio] 20.2 mg/mg Normal [facility] Comment on above: Performed By: #### A 1C #### [facility] [address] [place] [address] Dr. Juan Zamarripa TROPONIN, HIGH SENSITIVITYon 04-12-2022 HSTROP 4.9 pg/mL Normal 4.0-51.3 [facility] Comment on above: Result Comment: CUT- OFF POINTS HAVE BEEN ESTABLISHED BASED ON THE FOURTH UNIVERSAL DEFINITIONS OF MYOCARDIAL INFARCTION. THE UPPER REFERENCE LIMIT (URL) OF TROPONIN, DEFINED THE 99TH PERCENTILE OF cTnI DISTRIBUTION IN A REFERENCE POPULATION, HAS BEEN CONFIRMED THE DECISION THRESHOLD FOR CO DIAGNOSIS. Performed By: #### A 1C #### [facility] [address] [place] [address] Dr. Juan Zamarripa TSHon 04-12-2022 TSH 1.593 uIU/mL Normal 0.358-3.74 0 [facility] Comment on above: Performed By: #### C BC #### [facility] [address] [place] [address] Dr. Juan Zamarripa URINE MICROSCOPIC ONLYon BACTERIA SMALL Abnormal NONE SEEN [facility] Comment on above: Performed By: #### C BC #### [facility] [address] [place] [address] Dr. Juan Zamarripa Bacteria identified Cx Nom (U) INDICATED Normal [facility] Comment on above: Performed By: #### C BC #### [facility] [address] [place] [address] Dr. Juan Zamarripa CAST NONE SEEN Normal NONE SEEN [facility] Comment on above: Performed By: #### C BC #### [facility] [address] [place] [address] Dr. Juan Zamarripa Crystals LM Nom (Urine sed) NONE SEEN Normal NONE SEEN [facility] Comment on above: Performed By: #### C BC #### [facility] [address] [address] [address] Juan Zamarripa Epithelial cells LM Ql (Urine sed) FEW Abnormal NONE SEEN /RARE [facility] Comment on above: Performed By: #### C BC #### [facility] [address] [address] [address] Juan Zamarripa MUCOUS NONE SEEN Normal NONE SEEN [facility] Comment on above: Performed By: #### C BC #### [facility] [address] [address] [address] Juan Zamarripa RBC 0-2 Normal 0-2 [facility] Comment on above: Performed By: #### C BC #### [facility] [address] [place] [address] Dr. Juan Zamarripa WBC 2-5 Abnormal NONE SEEN [facility] Comment on above: Performed By: #### C BC #### [facility] [address] [place] [address] Dr. Juan Zamarripa XR CHEST 1 Von [...] JAZMINE DODSON Date: 2022-04-12 15:31 Normal [facility] CBC AUTO DIFFon 11-26-2021 BASO # 0.1 103/ul Normal 0.0-0.1 [facility] Comment on above: Performed By: #### L IPA, HSTROPN, TSH, CMP #### [facility] [address] [place] [address] Dr. Juan Zamarripa Basophils/100 WBC (Bld) 0.5 % Normal 0.2-2.0 [facility] Comment on above: Performed By: #### L IPA, HSTROPN, TSH, CMP #### [facility] [address] [place] [address] Dr. Juan Zamarripa EO # 0.1 103/ul Normal 0.0-0.7 [facility] Comment on above: Performed By: #### L IPA, HSTROPN, TSH, CMP #### [facility] [address] [place] [address] Dr. Juan Zamarripa Eosinophils/100 WBC (Bld) 1.1 % Normal 0.9-7.0 [facility] Comment on above: Performed By: #### L IPA, HSTROPN, TSH, CMP #### [facility] [address] [place] [address] Dr. Juan Zamarripa Erythrocyte distribution width (RBC) [Ratio] 12.5 % Normal 11.0-15.0 [facility] Comment on above: Performed By: #### L IPA, HSTROPN, TSH, CMP #### [facility] [address] [place] [address] Dr. Juan Zamarripa Hematocrit (Bld) [Volume fraction] 39.6 % Normal 36.0-48.0 [facility] Comment on above: Performed By: #### L IPA, HSTROPN, TSH, CMP #### [facility] [address] [place] [address] Dr. Juan Zamarripa Hemoglobin (Bld) [Mass/Vol] 13.7 g/dL Normal 12.0-16.0 [facility] Comment on above: Performed By: #### L IPA, HSTROPN, TSH, CMP #### [facility] [address] [place] [address] Dr. Juan Zamarripa IG # 0.04 10e3/ul Critically high 0.00-0.03 [facility] Comment on above: Performed By: #### L IPA, HSTROPN, TSH, CMP #### [facility] [address] [place] [address] Dr. Juan Zamarripa IG % 0.4 % Normal 0.0-0.5 [facility] Comment on above: Performed By: #### L IPA, HSTROPN, TSH, CMP #### [facility] [address] [place] [address] Dr. Juan Zamarripa LYMPH # 4.2 103/ul Critically high 1.2-3.8 [facility] Comment on above: Performed By: #### L IPA, HSTROPN, TSH, CMP #### [facility] [address] [place] [address] Dr. Juan Zamarripa Lymphocytes/100 WBC (Bld) 38.8 % Normal 20.5-60.0 [facility] Comment on above: Performed By: #### L IPA, HSTROPN, TSH, CMP #### [facility] [address] [place] [address] Dr. Juan Zamarripa MANUAL DIFF REQ NO Normal [facility] Comment on above: Performed By: #### L IPA, HSTROPN, TSH, CMP #### [facility] [address] [place] [address] Dr. Juan Zamarripa MCH (RBC) [Entitic mass] 32.2 pg Normal 26.7-34.0 [facility] Comment on above: Performed By: #### L IPA, HSTROPN, TSH, CMP #### [facility] [address] [place] [address] Dr. Juan Zamarripa MCHC (RBC) [Mass/Vol] 34.6 g/dL Normal 29.9-35.2 [facility] Comment on above: Performed By: #### L IPA, HSTROPN, TSH, CMP #### [facility] [address] [place] [address] Dr. Juan Zamarripa MCV (RBC) [Entitic vol] 93.0 fL Normal 81.0-99.0 [facility] Comment on above: Performed By: #### L IPA, HSTROPN, TSH, CMP #### [facility] [address] [place] [address] Dr. Juan Zamarripa MONO # 0.4 103/ul Normal 0.3-0.8 [facility] Comment on above: Performed By: #### L IPA, HSTROPN, TSH, CMP #### [facility] [address] [address] [address] Juan Zamarripa Monocytes/100 WBC (Bld) 3.9 % Normal 1.7-12.0 [facility] Comment on above: Performed By: #### L IPA, HSTROPN, TSH, CMP #### [facility] [address] [place] [address] Dr. Juan Zamarripa NEUT # 6.1 103/ul Normal 1.4-6.5 [facility] Comment on above: Performed By: #### L IPA, HSTROPN, TSH, CMP #### [facility] [address] [place] [address] Dr. Juan Zamarripa Neutrophils/100 WBC (Bld) 55.3 % Normal 43.0-75.0 [facility] Comment on above: Performed By: #### L IPA, HSTROPN, TSH, CMP #### [facility] [address] [place] [address] Dr. Juan Zamarripa Platelet mean volume (Bld) [Entitic vol] 9.6 fL Normal 9.5-13.5 [facility] Comment on above: Performed By: #### L IPA, HSTROPN, TSH, CMP #### [facility] [address] [place] [address] Dr. Juan Zamarripa PLT 187 103/ul Normal 150-450 [facility] Comment on above: Performed By: #### L IPA, HSTROPN, TSH, CMP #### [facility] [address] [place] [address] Dr. Juan Zamarripa RBC 4.26 106/ul Normal 4.20-5.40 [facility] Comment on above: Performed By: #### L IPA, HSTROPN, TSH, CMP #### [facility] [address] [place] [address] Dr. Juan Zamarripa WBC 10.9 103/ul Normal 4.0-11.0 [facility] Comment on above: Performed By: #### L IPA, HSTROPN, TSH, CMP #### [facility] [address] [place] [address] Dr. Juan Zamarripa [facility]07 SARS-CoV-2 (COVID-19) RNA SUNNY+probe Ql (Unsp spec) Not detected Normal NOT DETECTED [facility] Comment on above: Result Comment: When [...] for this test is supported by the [place] of [employer] and Human Service's declaration that [...] #### L IPA, HSTROPN, TSH, CMP #### [facility] [address] [place] [address] Dr. Juan Zamarripa LIPASEon 11-26-2021 Lipase [Catalytic activity/Vol] 140.0 U/L Normal 73.0-393.0 [facility] Comment on above: Performed By: #### L IPA, HSTROPN, TSH, CMP #### [facility] [address] [place] [address] Dr. Juan Zamarripa PROF 14(COMP METB)on 022 Albumin [Mass/Vol] 4.2 g/dL Normal 3.4-5.0 [facility] Comment on above: Performed By: #### L IPA, HSTROPN, TSH, CMP #### [facility] [address] [place] [address] Dr. Juan Zamarripa Albumin/Globulin [Mass ratio] 1.1 {ratio} Normal [facility] Comment on above: Performed By: #### L IPA, HSTROPN, TSH, CMP #### [facility] [address] [place] [address] Dr. Juan Zamarripa ALP [Catalytic activity/Vol] 93 U/L Normal 46-116 [facility] Comment on above: Performed By: #### L IPA, HSTROPN, TSH, CMP #### [facility] [address] [place] [address] Dr. Juan Zamarripa ALT [Catalytic activity/Vol] 74 U/L Critically high 14-59 [facility] Comment on above: Performed By: #### L IPA, HSTROPN, TSH, CMP #### [facility] [address] [place] [address] Dr. Juan Zamarripa Anion gap [Moles/Vol] 15.6 mmol/L Normal [facility] Comment on above: Performed By: #### L IPA, HSTROPN, TSH, CMP #### [facility] [address] [place] [address] Dr. Juan Zamarripa AST [Catalytic activity/Vol] 46 U/L Critically high 15-37 [facility] Comment on above: Performed By: #### L IPA, HSTROPN, TSH, CMP #### [facility] [address] [place] [address] Dr. Juan Zamarripa Bilirubin [Mass/Vol] 0.6 mg/dL Normal 0.2-1.0 [facility] Comment on above: Performed By: #### L IPA, HSTROPN, TSH, CMP #### [facility] [address] [place] [address] Dr. Juan Zamarripa Calcium [Mass/Vol] 9.7 mg/dL Normal 8.5-10.1 [facility] Comment on above: Performed By: #### L IPA, HSTROPN, TSH, CMP #### [facility] [address] [place] [address] Dr. Juan Zamarripa Chloride [Moles/Vol] 100 mmol/L Normal 98-107 [facility] Comment on above: Performed By: #### L IPA, HSTROPN, TSH, CMP #### [facility] [address] [place] [address] Dr. Juan Zamarripa CO2 [Moles/Vol] 25.6 mmol/L Normal 21.0-32.0 [facility] Comment on above: Performed By: #### L IPA, HSTROPN, TSH, CMP #### [facility] [address] [place] [address] Dr. Juan Zamarripa Creatinine [Mass/Vol] 0.89 mg/dL Normal 0.55-1.02 [facility] Comment on above: Performed By: #### L IPA, HSTROPN, TSH, CMP #### [facility] [address] [place] [address] Dr. Juan Zamarripa EGFR-AF PALAUAN >60 Normal >=60 [facility] Comment on above: Performed By: #### L IPA, HSTROPN, TSH, CMP #### [facility] [address] [place] [address] Dr. Juan Zamarripa EGFR-NON AF PALAUAN >60 Normal >=60 [facility] Comment on above: Performed By: #### L IPA, HSTROPN, TSH, CMP #### [facility] [address] [place] [address] Dr. Juan Zamarripa Globulin (S) [Mass/Vol] 3.7 g/dL Normal [facility] Comment on above: Performed By: #### L IPA, HSTROPN, TSH, CMP #### [facility] [address] [address] [address] Juan Zamarripa Glucose [Mass/Vol] 183 mg/dL Critically high 74-106 [facility] Comment on above: Performed By: #### L IPA, HSTROPN, TSH, CMP #### [facility] [address] [place] [address] Dr. Juan Zamarripa Potassium [Moles/Vol] 4.2 mmol/L Normal 3.5-5.1 [facility] Comment on above: Performed By: #### L IPA, HSTROPN, TSH, CMP #### [facility] [address] [place] [address] Dr. Juan Zamarripa Protein [Mass/Vol] 7.9 g/dL Normal 6.4-8.[address] [facility] Comment on above: Performed By: #### L IPA, HSTROPN, TSH, CMP #### [facility] [address] [place] [address] Dr. Juan Zamarripa Sodium [Moles/Vol] 137 mmol/L Normal 136-[address] [facility] Comment on above: Performed By: #### L IPA, HSTROPN, TSH, CMP #### [facility] [address] [place] [address] Dr. Juan Zamarripa Urea nitrogen [Mass/Vol] 13.0 mg/dL Normal 7.0-18.0 [facility] Comment on above: Performed By: #### L IPA, HSTROPN, TSH, CMP #### [facility] [address] [place] [address] Dr. Juan Zamarripa Urea nitrogen/Creatinine [Mass ratio] 14.6 mg/mg Normal [facility] Comment on above: Performed By: #### L IPA, HSTROPN, TSH, CMP #### [facility] [address] [place] [address] Dr. Juan Zamarripa TROPONIN, HIGH SENSITIVITYon 11-26-2021 HSTROP 4.6 pg/mL Normal 4.0-51.3 [facility] Comment on above: Result Comment: CUT- OFF POINTS HAVE BEEN ESTABLISHED BASED ON THE FOURTH UNIVERSAL DEFINITIONS OF MYOCARDIAL INFARCTION. THE UPPER REFERENCE LIMIT (URL) OF TROPONIN, DEFINED THE 99TH PERCENTILE OF cTnI DISTRIBUTION IN A REFERENCE POPULATION, HAS BEEN CONFIRMED THE DECISION THRESHOLD FOR CO DIAGNOSIS. Performed By: #### L IPA, HSTROPN, TSH, CMP #### [facility] [address] [place] [address] Dr. Juan Zamarripa TSHon 11-26-2021 TSH 2.343 uIU/mL Normal 0.358-3.74 0 [facility] Comment on above: Performed By: #### L IPA, HSTROPN, TSH, CMP #### [facility] [address] [place] [address] Dr. Juan Zamarripa XR CHEST 1 Von [...] VERA ARANA Date: 2021-11-26 21:03 Normal [facility] Covid-19 PCR ([facility])on SARS-CoV-2 (COVID-19) RNA SUNNY+probe Ql (Unsp spec) Not detected Normal NOT DETECTED [facility] Comment on above: Result Comment: This test is not yet approved or cleared by the [place] FDA. When there are no FDA-approved or cleared tests available, and other criteria are met, FDA can make tests available under an emergency access mechanism called an Emergency Use Authorization (EUA). The EUA for this test is supported by the [employer] Director of Health and Human Service's (HHS's) declaration [...] SARS-CoV-2. Performed By: #### C BC #### [facility] [address] [address] [address] Juan Zamarripa CBC AUTO DIFFon 08-17-2021 BASO # 0.1 103/ul Normal 0.0-0.1 [facility] Comment on above: Performed By: #### L IPA, HSTROPN, TSH, CMP #### [facility] [address] [address] [address] Juan Zamarripa Basophils/100 WBC (Bld) 0.7 % Normal 0.2-2.0 [facility] Comment on above: Performed By: #### L IPA, HSTROPN, TSH, CMP #### [facility] [address] [place] [address] Dr. Juan Zamarripa EO # 0.1 103/ul Normal 0.0-0.7 [facility] Comment on above: Performed By: #### L IPA, HSTROPN, TSH, CMP #### [facility] [address] [place] [address] Dr. Juan Zamarripa Eosinophils/100 WBC (Bld) 1.6 % Normal 0.9-7.0 [facility] Comment on above: Performed By: #### L IPA, HSTROPN, TSH, CMP #### [facility] [address] [place] [address] Dr. Juan Zamarripa Erythrocyte distribution width (RBC) [Ratio] 12.6 % Normal 11.0-15.0 [facility] Comment on above: Performed By: #### L IPA, HSTROPN, TSH, CMP #### [facility] [address] [place] [address] Dr. Juan Zamarripa Hematocrit (Bld) [Volume fraction] 39.8 % Normal 36.0-48.0 [facility] Comment on above: Performed By: #### L IPA, HSTROPN, TSH, CMP #### [facility] [address] [place] [address] Dr. Juan Zamarripa Hemoglobin (Bld) [Mass/Vol] 13.7 g/dL Normal 12.0-16.0 [facility] Comment on above: Performed By: #### L IPA, HSTROPN, TSH, CMP #### [facility] [address] [place] [address] Dr. Juan Zamarripa IG # 0.02 10e3/ul Normal 0.00-0.03 [facility] Comment on above: Performed By: #### L IPA, HSTROPN, TSH, CMP #### [facility] [address] [place] [address] Dr. Juan Zamarripa IG % 0.3 % Normal 0.0-0.5 [facility] Comment on above: Performed By: #### L IPA, HSTROPN, TSH, CMP #### [facility] [address] [place] [address] Dr. Juan Zamarripa LYMPH # 3.1 103/ul Normal 1.2-3.8 [facility] Comment on above: Performed By: #### L IPA, HSTROPN, TSH, CMP #### [facility] [address] [place] [address] Dr. Juan Zamarripa Lymphocytes/100 WBC (Bld) 40.5 % Normal 20.5-60.0 [facility] Comment on above: Performed By: #### L IPA, HSTROPN, TSH, CMP #### [facility] [address] [place] [address] Dr. Juan Zamarripa MANUAL DIFF REQ NO Normal [facility] Comment on above: Performed By: #### L IPA, HSTROPN, TSH, CMP #### [facility] [address] [place] [address] Dr. Juan Zamarripa MCH (RBC) [Entitic mass] 32.3 pg Normal 26.7-34.0 [facility] Comment on above: Performed By: #### L IPA, HSTROPN, TSH, CMP #### [facility] [address] [place] [address] Dr. Juan Zamarripa MCHC (RBC) [Mass/Vol] 34.4 g/dL Normal 29.9-35.2 [facility] Comment on above: Performed By: #### L IPA, HSTROPN, TSH, CMP #### [facility] [address] [place] [address] Dr. Juan Zamarripa MCV (RBC) [Entitic vol] 93.9 fL Normal 81.0-99.0 [facility] Comment on above: Performed By: #### L IPA, HSTROPN, TSH, CMP #### [facility] [address] [place] [address] Dr. Juan Zamarripa MONO # 0.3 103/ul Normal 0.3-0.8 [facility] Comment on above: Performed By: #### L IPA, HSTROPN, TSH, CMP #### [facility] [address] [place] [address] Dr. Juan Zamarripa Monocytes/100 WBC (Bld) 4.2 % Normal 1.7-12.0 [facility] Comment on above: Performed By: #### L IPA, HSTROPN, TSH, CMP #### [facility] [address] [place] [address] Dr. Juan Zamarripa NEUT # 4.0 103/ul Normal 1.4-6.5 [facility] Comment on above: Performed By: #### L IPA, HSTROPN, TSH, CMP #### [facility] [address] [place] [address] Dr. Juan Zamarripa Neutrophils/100 WBC (Bld) 52.7 % Normal 43.0-75.0 [facility] Comment on above: Performed By: #### L IPA, HSTROPN, TSH, CMP #### [facility] [address] [place] [address] Dr. Juan Zamarripa Platelet mean volume (Bld) [Entitic vol] 9.7 fL Normal 9.5-13.5 [facility] Comment on above: Performed By: #### L IPA, HSTROPN, TSH, CMP #### [facility] [address] [place] [address] Dr. Juan Zamarripa PLT 164 103/ul Normal 150-450 [facility] Comment on above: Performed By: #### L IPA, HSTROPN, TSH, CMP #### [facility] [address] [place] [address] Dr. Juan Zamarripa RBC 4.24 106/ul Normal 4.20-5.40 [facility] Comment on above: Performed By: #### L IPA, HSTROPN, TSH, CMP #### [facility] [address] [place] [address] Dr. Juan Zamarripa WBC 7.6 103/ul Normal 4.0-11.0 [facility] Comment on above: Performed By: #### L IPA, HSTROPN, TSH, CMP #### [facility] [address] [address] [address] Juan Zamarripa FREE T4on 08-17-2021 Free T4 [Mass/Vol] 1.00 ng/dL Normal 0.76-1.46 [facility] Comment on above: Performed By: #### C BC #### [facility] [address] [address] [address] Juan Zamarripa GLYCOHEMOGLOBIN A1Con 2021 ADA RECOMMENDATION SEE BELOW Normal [facility] Comment on above: Result Comment: ADA RECOMMENDED LIMIT 4.0 - 6.0 ADA THERAPEUTIC TARGET < 7.0 ACTION SUGGESTED > 7.0 Performed By: #### A 1C #### [facility] [address] [place] [address] Dr. Juan Zamarripa Glucose [Mass/Vol] 140 mg/dL Normal [facility] Comment on above: Performed By: #### A 1C #### [facility] [address] [place] [address] Dr. Juan Zamarripa HbA1c (Bld) [Mass fraction] 6.5 % Critically high 4.5-6.2 [facility] Comment on above: Performed By: #### A 1C #### [facility] [address] [place] [address] Dr. Juan Zamarripa LIPID PROFILEon 08-17-2021 CHOL-HDL RATIO NORM SEE BELOW Normal [facility] Comment on above: Result Comment: 3.3 - 4.4 LOW RISK 4.4 - 7.1 AVERAGE RISK 7.1 - 11.0 MODERATE RISK >11.0 HIGH RISK Performed By: #### L IPA, HSTROPN, TSH, CMP #### [facility] [address] [place] [address] Dr. Juan Zamarripa Cholesterol [Mass/Vol] 115 mg/dL Normal <=200 Th [facility] Comment on above: Performed By: #### L IPA, HSTROPN, TSH, CMP #### [facility] [address] [place] [address] Dr. Juan Zamarripa Cholesterol in HDL [Mass/Vol] 40 mg/dL Normal 40-60 [facility] Comment on above: Performed By: #### L IPA, HSTROPN, TSH, CMP #### [facility] [address] [address] [address] Juan Zamarripa Cholesterol in LDL [Mass/Vol] 53.6 mg/dL Normal [facility] Comment on above: Performed By: #### L IPA, HSTROPN, TSH, CMP #### [facility] [address] [address] [address] Juan Zamarripa Cholesterol.total/Amanda sterol in HDL [Mass ratio] 2.9 {ratio} Normal [facility] Comment on above: Performed By: #### L IPA, HSTROPN, TSH, CMP #### [facility] [address] [address] [address] Juan Zamarripa HDL NORMAL > or = 60 mg/dl - LO W CARDIOVASCULAR RISK <40 mg/dl - HIGH CARDIOVASCULAR RISK Normal [facility] Comment on above: Performed By: #### L IPA, HSTROPN, TSH, CMP #### [facility] [address] [address] [address] Juan Zamarripa LDL CALC NORMAL SEE BELOW Normal [facility] Comment on above: Result Comment: <100 mg/dl OPTIMAL 100 - 129 mg/dl NEAR OR ABOVE OPTIMAL 130 - 159 mg/dl BORDERLINE HIGH 160 - 189 mg/dl HIGH >190 mg/dl VERY HIGH Performed By: #### L IPA, HSTROPN, TSH, CMP #### [facility] [address] [address] [address] Juan Zamarripa Triglyceride [Mass/Vol] 107 mg/dL Normal <=150 T [facility] Comment on above: Performed By: #### L IPA, HSTROPN, TSH, CMP #### [facility] [address] [address] [address] Juan Zamarripa VLDL CALC 21.4 mg/dL Normal [facility] Comment on above: Performed By: #### L IPA, HSTROPN, TSH, CMP #### [facility] [address] [place] [address] Dr. Juan Zamarripa PROF 14(COMP METB)on 022 Albumin [Mass/Vol] 4.1 g/dL Normal 3.4-5.0 [facility] Comment on above: Performed By: #### L IPA, HSTROPN, TSH, CMP #### [facility] [address] [place] [address] Dr. Juan Zamarripa Albumin/Globulin [Mass ratio] 1.1 {ratio} Normal [facility] Comment on above: Performed By: #### L IPA, HSTROPN, TSH, CMP #### [facility] [address] [place] [address] Dr. Juan Zamarripa ALP [Catalytic activity/Vol] 94 U/L Normal 46-116 [facility] Comment on above: Performed By: #### L IPA, HSTROPN, TSH, CMP #### [facility] [address] [place] [address] Dr. Juan Zamarripa ALT [Catalytic activity/Vol] 61 U/L Critically high 14-59 [facility] Comment on above: Performed By: #### L IPA, HSTROPN, TSH, CMP #### [facility] [address] [place] [address] Dr. Juan Zamarripa Anion gap [Moles/Vol] 16.5 mmol/L Normal [facility] Comment on above: Performed By: #### L IPA, HSTROPN, TSH, CMP #### [facility] [address] [place] [address] Dr. Juan Zamarripa AST [Catalytic activity/Vol] 24 U/L Normal 15-37 [facility] Comment on above: Performed By: #### L IPA, HSTROPN, TSH, CMP #### [facility] [address] [place] [address] Dr. Juan Zamarripa Bilirubin [Mass/Vol] 0.7 mg/dL Normal 0.2-1.0 [facility] Comment on above: Performed By: #### L IPA, HSTROPN, TSH, CMP #### [facility] [address] [place] [address] Dr. Juan Zamarripa Calcium [Mass/Vol] 9.1 mg/dL Normal 8.5-10.1 [facility] Comment on above: Performed By: #### L IPA, HSTROPN, TSH, CMP #### [facility] [address] [address] [address] Juan Zamarripa Chloride [Moles/Vol] 103 mmol/L Normal 98-107 [facility] Comment on above: Performed By: #### L IPA, HSTROPN, TSH, CMP #### [facility] [address] [address] [address] Juan Zamarripa CO2 [Moles/Vol] 25.4 mmol/L Normal 21.0-32.0 [facility] Comment on above: Performed By: #### L IPA, HSTROPN, TSH, CMP #### [facility] [address] [address] [address] Juan Zamarripa Creatinine [Mass/Vol] 0.87 mg/dL Normal 0.55-1.02 [facility] Comment on above: Performed By: #### L IPA, HSTROPN, TSH, CMP #### [facility] [address] [address] [address] Juan Zamarripa EGFR-AF PALAUAN >60 Normal >=60 [facility] Comment on above: Performed By: #### L IPA, HSTROPN, TSH, CMP #### [facility] [address] [address] [address] Juan Zamarripa EGFR-NON AF PALAUAN >60 Normal >=60 [facility] Comment on above: Performed By: #### L IPA, HSTROPN, TSH, CMP #### [facility] [address] [address] [address] Juan Zamarripa Globulin (S) [Mass/Vol] 3.9 g/dL Normal [facility] Comment on above: Performed By: #### L IPA, HSTROPN, TSH, CMP #### [facility] [address] [address] [address] Juan Zamarripa Glucose [Mass/Vol] 157 mg/dL Critically high 74-106 [facility] Comment on above: Performed By: #### L IPA, HSTROPN, TSH, CMP #### [facility] [address] [place] [address] Dr. Juan Zamarripa Potassium [Moles/Vol] 4.4 mmol/L Normal 3.5-5.1 [facility] Comment on above: Performed By: #### L IPA, HSTROPN, TSH, CMP #### [facility] [address] [address] [address] Juan Zamarripa Protein [Mass/Vol] 8.0 g/dL Normal 6.4-8.[address] [facility] Comment on above: Performed By: #### L IPA, HSTROPN, TSH, CMP #### [facility] [address] [place] [address] Dr. Juan Zamarripa Sodium [Moles/Vol] 141 mmol/L Normal 136-[address] [facility] Comment on above: Performed By: #### L IPA, HSTROPN, TSH, CMP #### [facility] [address] [address] [address] Juan Zamarripa Urea nitrogen [Mass/Vol] 21.0 mg/dL Critically high 7.0-18.0 [facility] Comment on above: Performed By: #### L IPA, HSTROPN, TSH, CMP #### [facility] [address] [place] [address] Dr. Juan Zamarripa Urea nitrogen/Creatinine [Mass ratio] 24.1 mg/mg Normal [facility] Comment on above: Performed By: #### L IPA, HSTROPN, TSH, CMP #### [facility] [address] [place] [address] Dr. Juan Zamarripa TSHon 08-17-2021 TSH 1.503 uIU/mL Normal 0.358-3.74 0 [facility] Comment on above: Performed By: #### L IPA, HSTROPN, TSH, CMP #### [facility] [address] [place] [address] Dr. Juan Zamarripa TSH RANGE SEE BELOW Normal [facility] Comment on above: Result Comment: <0.3 4 UIU/ml HYPERTHYROID 0.34-5.60 UIU/ml EUTHYROID >5.60 UIU/ml HYPOTHYROID Performed By: #### L IPA, HSTROPN, TSH, CMP #### [facility] [address] [address] [address] Juan Weinstein 08-11-2021 CNPN Telephone (NCCAP) -------- IVELISSE GEE ([id number]) 1950 F Date Time Provider Department 08/11/21 MEHRDAD AGUILAR NCCJERMAINE During your visit today, we recorded the following information about you: Marta Cuellar [facility] 08/11/2021 12:14 PM Signed Called patient [...] Status:Closed by MARTA GARCES on 08/11/21 Normal [facility] [id number] QUANTITA TIONon 10-13-2020 [id number] (AAT) PHENOTYPE SEE NOTE Normal [facility] Comment on above: Order Comment: FASTI NG:YES FASTING: YES Result Comment: THIS PATIENT'S [id number]-[id number] PHENOTYPE IS PI*MM. 90% of normal individuals have the MM phenotype, with normal quantitative AAT levels. Many phenotypic patterns have been described, including deficiency states with F, S, Z, or other alleles. As a general estimation, compared to M allele of 100% of normal H-2-Ufmbynlzlbq protein, the S allele produces approximately 60% and the Z allele 20%. For example, an MS phenotype would have about 80% of normal V-2-Vnkwmxqbywd protein level, a 50% contribution from the M allele and 30% from the S allele. A ZZ phenotype would have about 20% of normal levels, a 10% contribution from each Z gene. The F allele has normal Y-9-Thaodnsngzb levels, but the kinetics of elastase inhibition [...] phenotype. Performed By: #### 2 63, 457, 60487, 6283, 508, 498, 326, 8472, 496, 249, 87851, 259 #### [facility] [address], [address] [place] [address] [employer]: Kush Hines MD #### [id number] #### [facility], [address] [place] [address] [employer]: Susan Sheikh MD,PhD,JAY #### [id number], 64219 #### [facility] [address] [facility] [place], [place] [employer]er: Parrish Gloria M.D.,PhD [id number] QN 170 mg/dL Normal 83-199 [facility] Comment on above: Order Comment: FASTI NG:YES FASTING: YES Performed By: #### 2 63, 457, 27529, 7573, 508, 498, 326, 8472, 496, 249, 09613, 259 #### [facility] [address], [address] [place] [address] [employer]: Kush Hines MD #### [id number] #### [facility], [address] [place] [address] [employer]: Susan Sheikh MD,PhD,JAY #### 26080, 50152 #### [facility] [address] [facility] [place], [place] [employer]er: Parrish Gloria M.D.,PhD TL SCREEN, IFA, W/REFL [...] AC-0: Negative International Consensus on TL Patterns (https://doi.org/10.1515/nsbu-1583-6791) For additional information, please refer to http://education.[employer].Voltaire/faq/AEA699 (This link is being provided for informational/ educational purposes only.) Performed By: #### 2 63, 457, 73591, 7573, 508, 498, 326, 8472, 496, 249, 25419, 259 #### [facility] [address], [address] [place] [address] [employer]: Kush Hines MD #### [id number] #### [facility], [address] [address] [employer]: Susan Sheikh MD,PhD,JAY #### 85918, 36390 #### [facility]/[address] [facility] [place], [place] [employer]er: Parrish Gloria M.D.,PhD CELIAC DISEASE COMPREHENSIVE PANELon 10-13-2020 IMMUNOGLOBULIN A 185 mg/dL Normal 70-320 [facility] Comment on above: Performed By: #### 2 63, 457, 64714, 7573, 508, 498, 326, 8472, 496, 249, 49022, 259 #### [facility] [address], [address] [place] [address] [employer]: Kush Hiens MD #### [phone] #### [facility], [address] [phone] [employer]: Susan Sheikh MD,PhD,JAY #### 61690, 63213 #### [facility]/[address] [facility] [address] [place] [employer]er: Parrish Gloria M.D.,PhD INTERPRETATION see note Normal [...] DQ8. Performed By: #### 2 63, 457, 62113, 7573, 508, 498, 326, 8472, 496, 249, 62850, 259 #### [facility] [address], [address] [place] [address] [employer]: Kush Hines MD #### [id number] #### [facility], [address] [place] [address] [employer]: Susan Sheikh MD,PhD,JAY #### 92199, 57751 #### [facility]/[address] [place] [facility] [place], [place] [employer]er: Parrish Gloria M.D.,PhD TISSUE TRANSGLUTAMINASE AB, IGA 2 U/mL Normal <4 [facility] Comment on above: Result Comment: Value Interpretation <4 U/mL: No Antibody Detected >or=4 U/mL: Antibody Detected Performed By: #### 2 63, 457, 30899, 7573, 508, 498, 326, 8472, 496, 249, 19971, 259 #### [facility] [address], [address] [place] [address] [employer]: Kush Hines MD #### [id number] #### [facility], [address] [place] [address] [employer]: Susan Sheikh MD,PhD,JAY #### 16375, 52101 #### [facility] [address] [facility] [place] [employer]er: Parrish Gloria M.D.,PhD CERULOPLASMINon 10-13-2020 CERULOPLASMIN 31 mg/dL Normal 18-53 [facility] Comment on above: Performed By: #### 2 63, 457, 16435, 7573, 508, 498, 326, 8472, 496, 249, 35421, 259 #### [facility] [address], [address] [place] [address] [employer]: Kush Hines MD #### [id number] #### [facility], [address] [phone] [employer]: Susan Sheikh MD,PhD,JAY #### 46571, 48173 #### [facility] [address] [facility] [address] [place] [employer]er: Parrish Gloria M.D.,PhD FERRITINon 10-13-2020 Ferritin [Mass/Vol] 70 ng/mL Normal 16-288 [facility] Comment on above: Performed By: #### 2 63, 457, 94447, 7573, 508, 498, 326, 8472, 496, 249, 24239, 259 #### [facility] [address], [address] [place] [address] [employer]er: Kush Hines MD #### [id number] #### [facility], [address] [phone] [employer]: Susan Sheikh MD,PhD,JAY #### 04269, 31259 #### [facility] [address] [facility] [place] [employer]er: Parrish Gloria M.D.,PhD HEMOGLOBIN A1con 10-13-2020 HEMOGLOBIN [...] children. Performed By: #### 2 63, 457, 74246, 7573, 508, 498, 326, 8472, 496, 249, 94126, 259 #### [facility] [address], [address] [place] [address] [employer]: Kush Hines MD #### 48927 #### [facility], [address] [place] [address] [employer]er: Susan Sheikh MD,PhD,JAY #### 79098, 49861 #### [facility] [address] [facility] [place] [employer]er: Parrish Gloria M.D.,PhD HEPATITIS A AB, TOTALon 07-0 HEPATITIS A AB, TOTAL Reactive Abnormal NON-RE ACTI VE [facility] Comment on above: Result Comment: For additional information, please refer to http://education.[employer].Voltaire/faq/KIF026 (This link is being provided for informational/ educational purposes only.) Performed By: #### 2 63, 457, 71395, 7573, 508, 498, 326, 8472, 496, 249, 09299, 259 #### [facility] [address], [address] [place] [address] [employer]er: Kush Hines MD #### [id number] #### [facility], [address] [place] [address] [employer]: Susan Sheikh MD,PhD,JAY #### 62306, 00541 #### [facility] [address] [facility] [place] [employer]er: Parrish Gloria M.D.,PhD HEPATITIS B CORE AB TOTAL W/ REFL IGMon 10-13-2020 HEPATITIS B CORE AB TOTAL Non-Reactive Normal NON-REACTI VE [facility] Comment on above: Performed By: #### 2 63, 457, 64880, 7573, 508, 498, 326, 8472, 496, 249, 47749, 259 #### [facility] [address], [address] [place] [address] [employer]er: Kush Hines MD #### 71028 #### [facility], [address] [address] [employer]er: Susan Sheikh MD,PhD,JAY #### 16385, 60407 #### [facility]/[address] [facility] [place] [employer]er: Parrish Gloria M.D.,PhD HEPATITIS B SURFACE ANTIBODY QLon 10-13-2020 HEPATITIS B SURFACE ANTIBODY QL Non-Reactive Normal NON-REACTI VE [facility] Comment on above: Performed By: #### 2 63, 457, 60716, 7573, 508, 498, 326, 8472, 496, 249, 82835, 259 #### [facility] [address], [address] [place] [address] [employer]er: Kush Hines MD #### [id number] #### [facility], [address] [place], [place] [employer]er: Susan Sheikh MD,PhD,JAY #### 84262, 21797 #### [facility]/[address] [place] [facility] [place] [employer]er: Parrish Gloria M.D.,PhD HEPATITIS B SURFACE ANTIGEN W/REFL CONFIRMon 10-13-2020 HEPATITIS B SURFACE ANTIGEN Non-Reactive Normal NON-REACTI VE [facility] Comment on above: Performed By: #### 2 63, 457, 83848, 7573, 508, 498, 326, 8472, 496, 249, 39597, 259 #### [facility] [address] [place] [address], [address] [place] [address] [employer]er: Kush Hines MD #### 70556 #### [facility], [address] [place] [address] [employer]er: Susan Sheikh MD,PhD,JAY #### 00793, 24611 #### [facility] [facility] [address] [place] [employer]er: Parrish Gloria M.D.,PhD HEPATITIS C AB W/REFL TO HCV RNA, QN, PCRon 10-13-2020 HEPATITIS C ANTIBODY Non-Reactive Normal NON-CHARMAINE CTI VE [facility] Comment on above: Performed By: #### 2 63, 457, 31079, 7573, 508, 498, 326, 8472, 496, 249, 84281, 259 #### [facility] [address] [facility], [address] [place] [address] [employer]er: Kush Hines MD #### [phone] #### [facility], [address] [place] [address] [employer]er: Susan Sheikh MD,PhD,JAY #### 69710, 79636 #### [facility] [address] [facility] [address] [place] [employer]er: Parrish Gloria M.D.,PhD INDEX 0.02 Normal <1.00 [facility] Comment on above: Result Comment: HCV antibody was non-reactive. There is no laboratory evidence of HCV infection. In most cases, no further action is required. However, if recent HCV exposure is suspected, a test for HCV RNA (test code 97185) is suggested. For additional information please refer to http://education.Dot[employer]/faq/UVB45m7 (This link is being provided for informational/ educational purposes only.) Performed By: #### 2 63, 457, 15574, 7573, 508, 498, 326, 8472, 496, 249, 02136, 259 #### [facility] [address], [address] [place] [address] [employer]er: Kush Hines MD #### 60573 #### [facility], [address] [place] [address] [employer]er: Susan Sheikh MD,PhD,JAY #### 92799, 10794 #### [facility] [place] [employer]er: Parrish Gloria M.D.,PhD IRON AND TOTAL IRON BINDING CAPACITYon 10-13-2020 % SATURATION 19 % (calc) Normal 16-45 [facility] Comment on above: Performed By: #### 2 63, 457, 64521, 7573, 508, 498, 326, 8472, 496, 249, 75319, 259 #### [facility] [address], [address] [place] [address] [employer]er: Kush Hines MD #### 92649 #### [facility], [address] [place] [address] [employer]er: Susan Sheikh MD,PhD,JAY #### 98266, 98444 #### [facility] [address] [facility] [place] [employer]er: Parrish Gloria M.D.,PhD IRON BINDING CAPACITY 372 mcg/dL (calc) Normal 250-450 [facility] Comment on above: Performed By: #### 2 63, 457, 18333, 7573, 508, 498, 326, 8472, 496, 249, 81480, 259 #### [facility] of [address] , [address] [place] [address] [employer]er: Kush Hines MD #### [id number] #### [facility], [address] [address] [employer]er: Susan Sheikh MD,PhD,JAY #### 12065, 50082 #### [facility]/[address] [place] [address] [facility] [place] [employer]er: Parrish Gloria M.D.,PhD IRON, TOTAL 70 mcg/dL Normal 45-160 [facility] Comment on above: Performed By: #### 2 63, 457, 98807, 7573, 508, 498, 326, 8472, 496, 249, 51614, 259 #### [facility] [address], [address] [place] [address] [employer]er: Kush Hines MD #### 96544 #### [facility], [address] [phone] [employer]er: Susan Sheikh MD,PhD,JAY #### 01554, 99389 #### [facility] [address] [facility] [place] [employer]er: Parrish Gloria M.D.,PhD LIVER KIDNEY MICROSOME (LKM- [...] infection. Performed By: #### 2 63, 457, 66032, 7573, 508, 498, 326, 8472, 496, 249, 41766, 259 #### [facility] [address] [address] [employer]er: Kush Hines MD #### [id number] #### [facility], [address] [place] [address] [employer]er: Susan Sheikh MD,PhD,JAY #### 56862, 91598 #### [facility]/[address] [place] [facility] [place] [employer]er: Parrish Gloria M.D.,PhD MITOCHONDRIAL ANTIBODY W/REF L TITERon 10-13-2020 MITOCHONDRIAL AB SCREEN Negative Normal NEGATIVE Q [facility] Comment on above: Performed By: #### 2 63, 457, 40694, 7573, 508, 498, 326, 8472, 496, 249, 38405, 259 #### [facility] [address] [place] [address] [employer]er: Kush Hines MD #### 98759 #### [facility], [address] [place] [address] [employer]er: Susan Sheikh MD,PhD,JAY #### 00449, 25233 #### [facility]/[address] [place] [facility] [place] [employer]er: Parrish Gloria M.D.,PhD SMOOTH MUSCLE AB W/REFL TITE Butch 10-13-2020 SMOOTH MUSCLE AB SCREEN Negative Normal NEGATIVE Q [facility] Comment on above: Performed By: #### 2 63, 457, 97527, 7573, 508, 498, 326, 8472, 496, 249, 81846, 259 #### [facility] [address], [address] [place], [place] [id number] [employer]er: Kush Hines MD #### [id number] #### [facility] [address] [place] [address] [employer]er: Susan Sheikh MD,PhD,JAY #### 40981, 23097 #### [facility]/[place] [address] [facility] [place] [employer]er: Parrish Gloria M.D.,PhD TSH W/REFLEX TO FT4on 2020 TSH W/REFLEX TO FT4 3.10 mIU/L Normal 0.40-4.50 [facility] Comment on above: Performed By: #### 2 63, 457, 28158, 7573, 508, 498, 326, 8472, 496, 249, 14715, 259 #### [facility] [address], [address] [place] [address] [employer]er: Kush Hines MD #### 64341 #### [facility] [address] [place] [address] [employer]er: Susan Sheikh MD,PhD,JAY #### 80736, 93737 #### [facility]/[place] [address] [facility] [place] [employer]er: Parrish Gloria M.D.,PhD CNOVSPon 09-30-2020 CNOVS Visit (SP) Office (HEMASA) -------- IVELISSE GEE ([id number]) 1950 F Date Time Provider Department 09/30/20 1:30 PM MEHRDAD AGUILAR During your visit today, we recorded the following information about you: Temperature Pulse Respiration Blood pressure 97.2 degrees 71/minute 18/minute 121/54 Weight Height 73.6 kg 1.57 m Mehrdad Aguilar MD 10/02/2020 5:36 PM Signed PATIENT NAME: Ivelisse Gee DATE: 09/30/2020 PRIMARY CARE PHYSICIAN: Carmen Conley MD OTHER PHYSICIANS: Dr. Wahl (PCP [place], [place]), Dr. Magdaleno Castillo ([facility]) Portions of this encounter note have [...] BP 121/ (more content not included)... Normal [facility] Albumin/Creat Ratioon 2020 Albumin Urine Random <12.[address] [facility] Comment on above: Performed By: #### C MP, INSLAB, LIPB, CPEPT, GADCAB, B12, VITD, UACR ####[address] [place] [phone] Albumin/Creat Ratio Not calculated Normal <30 [facility] Comment on above: Performed By: #### C MP, INSLAB, LIPB, CPEPT, GADCAB, B12, VITD, UACR ####[address] [place], [place] [phone] Creatinine,Urine,Ran 53.8 mg/dL Normal 20-300 [facility] Comment on above: Performed By: #### C MP, INSLAB, LIPB, CPEPT, GADCAB, B12, VITD, UACR ####[address] [place], [place] [phone] C-Peptideon 09-27-2020 C-Peptide 1.8 ng/mL Normal 0.8-3.9 [facility] Comment on above: Performed By: #### C MP, INSLAB, LIPB, CPEPT, GADCAB, B12, VITD, UACR ####[address] [address] [place], [place] [phone] CBC and Differentialon 09-27 Abs Baso 0.03 k/uL Normal <0.11 [facility] Abs Dickenson 0.33 k/uL Normal <0.87 [facility] Abs Neut 4.29 k/uL Normal 1.45-7.50 [facility] Absolute nRBC <0.01 Normal <0.01 [facility] Basophils/100 WBC (Bld) 0.4 % Normal [facility] DTYPE Auto Diff Normal [facility] Eosinophils (Bld) [#/Vol] 0.12 10*3/uL Normal <0.46 [facility] Eosinophils/100 WBC (Bld) 1.5 % Normal [facility] Erythrocyte distribution width (RBC) [Ratio] 13.0 % Normal 11.5-15.0 [facility] Hematocrit (Bld) [Volume fraction] 37.3 % Normal 36.0-46.0 [facility] Hemoglobin (Bld) [Mass/Vol] 13.0 g/dL Normal 11.5-15.5 [facility] Lymphocytes (Bld) [#/Vol] 3.40 10*3/uL Normal 1.00-4.00 [facility] Lymphocytes/100 WBC (Bld) 41.6 % Normal [facility] MCH 31.9 pG Normal 26.0-34.0 [facility] MCHC (RBC) [Mass/Vol] 34.9 g/dL Normal 30.5-36.0 [facility] MCV (RBC) [Entitic vol] 91.4 fL Normal 80.0-100.0 [facility] Monocytes/100 WBC (Bld) 4.0 % Normal [facility] Neutrophils/100 WBC (Bld) 52.5 % Normal [facility] NRBCs 0.0 /100 WBC Normal 0 [facility] Platelet mean volume (Bld) [Entitic vol] 9.6 fL Normal 9.0-12.7 [facility] Platelets (Bld) [#/Vol] 164 10*3/uL Normal 150-400 [facility] RBC (Bld) [#/Vol] 4.08 10*6/uL Normal 3.90-5.20 [facility] WBC (Bld) [#/Vol] 8.18 10*3/uL Normal 3.70-11.00 [facility] Comp Metabolic Panelon 09-27 Albumin [Mass/Vol] 4.4 g/dL Normal 3.9-4.9 [facility] Comment on above: Performed By: #### C MP, INSLAB, LIPB, CPEPT, GADCAB, B12, VITD, UACR ####[facility] [address] [place] [phone] ALP [Catalytic activity/Vol] 88 U/L Normal 34-123 [facility] Comment on above: Performed By: #### C MP, INSLAB, LIPB, CPEPT, GADCAB, B12, VITD, UACR ####[address] [address] [place], [place] [phone] ALT [Catalytic activity/Vol] 63 U/L High 7-38 [facility] Comment on above: Performed By: #### C MP, INSLAB, LIPB, CPEPT, GADCAB, B12, VITD, UACR ####[address] [phone] Anion gap [Moles/Vol] 12 mmol/L Normal 9-18 [facility] Comment on above: Performed By: #### C MP, INSLAB, LIPB, CPEPT, GADCAB, B12, VITD, UACR ####[address] [phone] AST [Catalytic activity/Vol] 42 U/L High 13-35 [facility] Comment on above: Performed By: #### C MP, INSLAB, LIPB, CPEPT, GADCAB, B12, VITD, UACR ####[address] [phone] Bilirubin [Mass/Vol] 0.6 mg/dL Normal 0.2-1.3 [facility] Comment on above: Performed By: #### C MP, INSLAB, LIPB, CPEPT, GADCAB, B12, VITD, UACR ####[address] [phone] Calcium [Mass/Vol] 9.2 mg/dL Normal 8.5-10.2 [facility] Comment on above: Performed By: #### C MP, INSLAB, LIPB, CPEPT, GADCAB, B12, VITD, UACR ####[facility] [place], [place] [phone] Chloride [Moles/Vol] 104 mmol/L Normal 97-105 [facility] Comment on above: Performed By: #### C MP, INSLAB, LIPB, CPEPT, GADCAB, B12, VITD, UACR ####[facility] [place], [place] [phone] Creatinine [Mass/Vol] 0.68 mg/dL Normal 0.58-0.96 [facility] Comment on above: Performed By: #### C MP, INSLAB, LIPB, CPEPT, GADCAB, B12, VITD, UACR ####[place] [address] [place], [place] [phone] Glucose [Mass/Vol] 152 mg/dL High 74-99 [facility] Comment on above: Result Comment: The [place] Diabetes Association (ADA) provides guidance for cutoff [...] Standards of Medical Care in Diabetes 2016, [place] Diabetes Association. Diabetes Care. 2016.39(Suppl 1). Performed By: #### C MP, INSLAB, LIPB, CPEPT, GADCAB, B12, VITD, UACR ####[place] [address] [place], [place] [phone] Potassium [Moles/Vol] 4.3 mmol/L Normal 3.7-5.1 [facility] Comment on above: Performed By: #### C MP, INSLAB, LIPB, CPEPT, GADCAB, B12, VITD, UACR ####[facility] [place], [place] [phone] Sodium [Moles/Vol] 140 mmol/L Normal 136-144 [facility] Comment on above: Performed By: #### C MP, INSLAB, LIPB, CPEPT, GADCAB, B12, VITD, UACR ####[facility] [place], [place] [phone] Urea nitrogen [Mass/Vol] 14 mg/dL Normal 7-21 [facility] Comment on above: Performed By: #### C MP, INSLAB, LIPB, CPEPT, GADCAB, B12, VITD, UACR ####[facility] [place], [place] [phone] Albumin [Mass/Vol] 4.5 g/dL Normal 3.9-4.9 [facility] ALP [Catalytic activity/Vol] 83 U/L Normal 34-123 [facility] ALT [Catalytic activity/Vol] 58 U/L High 7-38 [facility] Anion gap [Moles/Vol] 11 mmol/L Normal 9-18 [facility] AST [Catalytic activity/Vol] 34 U/L Normal 13-35 [facility] Bilirubin [Mass/Vol] 0.7 mg/dL Normal 0.2-1.3 [facility] Calcium [Mass/Vol] 9.5 mg/dL Normal 8.5-10.2 [facility] Chloride [Moles/Vol] 103 mmol/L Normal 97-105 [facility] CO2 [Moles/Vol] 24 mmol/L Normal 22-30 [facility] Comment on above: Performed By: #### C MP, INSLAB, LIPB, CPEPT, GADCAB, B12, VITD, UACR ####[facility] [place], [place] [phone] Creatinine [Mass/Vol] 0.67 mg/dL Normal 0.58-0.96 [facility] eGFR- Amer. >60 Normal [facility] Comment on above: Performed By: #### C MP, INSLAB, LIPB, CPEPT, GADCAB, B12, VITD, UACR ####[facility] [place], [place] [phone] eGFR-All Other Races >[address] [facility] Comment on above: Result Comment: eGFR [...] INSLAB, LIPB, CPEPT, GADCAB, B12, VITD, UACR ####[facility] [place], [place] [phone] Glucose [Mass/Vol] 161 mg/dL High 74-99 [facility] Comment on above: Result Comment: The [place] Diabetes Association (ADA) provides guidance for cutoff [...] Standards of Medical Care in Diabetes 2016, [place] Diabetes Association. Diabetes Care. 2016.39(Suppl 1). Potassium [Moles/Vol] 4.1 mmol/L Normal 3.7-5.1 [facility] Protein [Mass/Vol] 7.2 g/dL Normal 6.3-8.0 [facility] Comment on above: Performed By: #### C MP, INSLAB, LIPB, CPEPT, GADCAB, B12, VITD, UACR ####[facility], [place] [phone] Sodium [Moles/Vol] 138 mmol/L Normal 136-144 [facility] Urea nitrogen [Mass/Vol] 13 mg/dL Normal 7-21 [facility] Glutamic Ac Decar Abon 09-27 Glutam Ac Dec Ab Ql Negative Normal Negative [facility] Comment on above: Performed By: #### C MP, INSLAB, LIPB, CPEPT, GADCAB, B12, VITD, UACR ####[place] [address], [place] [phone] Glutamic Ac Decar Ab <5.0 Normal <5.1 [facility] Comment on above: Performed By: #### C MP, INSLAB, LIPB, CPEPT, GADCAB, B12, VITD, UACR ####[place] [address] [place], [place] [phone] Insulin Autoantibodyon 09-27 Insulin Ab Ql Negative Normal Negative [facility] Comment on above: Performed By: #### C MP, INSLAB, LIPB, CPEPT, GADCAB, B12, VITD, UACR ####[place] [address] [place], [place] [phone] Insulin Antibody <0.4 Normal <0.4 [facility] Comment on above: Performed By: #### C MP, INSLAB, LIPB, CPEPT, GADCAB, B12, VITD, UACR ####[place] [address], [place] [phone] Lipid Panel, [place] 021 Cholesterol [Mass/Vol] 110 mg/dL Normal <200 [facility] Comment on above: Result Comment: <200 mg/dL, Desirable 200-239 mg/dL, Borderline high >239 mg/dL, High Performed By: #### C MP, INSLAB, LIPB, CPEPT, GADCAB, B12, VITD, UACR ####[place] [place] [address] [place], [place] [phone] Cholesterol in HDL [Mass/Vol] 37 mg/dL Low >39 [facility] Comment on above: Result Comment: 40-5 9 mg/dL, Acceptable >59 mg/dL, High: Negative risk factor for coronary heart disease <40 mg/dL, Low: Positive risk factor for coronary heart disease Performed By: #### C MP, INSLAB, LIPB, CPEPT, GADCAB, B12, VITD, UACR ####[place] [phone] Cholesterol in LDL [Mass/Vol] 49 mg/dL Normal <100 [facility] Comment on above: Result Comment: <100 mg/dL, Optimal 100-129 mg/dL, Near optimal/above optimal 130-159 mg/dL, Borderline high 160-189 mg/dL, High >189 mg/dL, Very high Secondary prevention optimal LDL Cholesterol levels are recommended to be < 70 mg/dL Performed By: #### C MP, INSLAB, LIPB, CPEPT, GADCAB, B12, VITD, UACR ####[address] [phone] Fasting Time 12 hrs Normal [facility] Comment on above: Performed By: #### C MP, INSLAB, LIPB, CPEPT, GADCAB, B12, VITD, UACR ####[address] [phone] LDL:HDL Ratio 1.32 Normal <2.54 [facility] Comment on above: Result Comment: Modesta dao: 1. National Cholesterol Education Program ATP III Guideline At-A-Glance Quick Desk Reference: National Heart, Lung, and Blood [place]. National Institutes of Health. 2001: NIH Publication No. 01-3305. 2. An International Atherosclerosis Society position paper: global recommendations for the management of dyslipidemia: executive summary, Atherosclerosis. 2014: 232(2):410-413. Performed By: #### C MP, INSLAB, LIPB, CPEPT, GADCAB, B12, VITD, UACR ####[address] [place], [place] [phone] Non HDL Cholesterol 73 mg/dL Normal <130 [facility] Comment on above: Result Comment: <130 mg/dL, Optimal 130-159 mg/dL, Near optimal/above optimal 160-189 mg/dL, Borderline high 190-219 mg/dL, High >219 mg/dL, Very high Secondary prevention optimal non HDL Cholesterol levels are recommended to be < 100 mg/dL Performed By: #### C MP, INSLAB, LIPB, CPEPT, GADCAB, B12, VITD, UACR ####[address] [phone] TC:HDL Ratio 2.97 Normal <5.10 [facility] Comment on above: Performed By: #### C MP, INSLAB, LIPB, CPEPT, GADCAB, B12, VITD, UACR ####[address] [phone] Triglyceride [Mass/Vol] 121 mg/dL Normal <150 [facility] Comment on above: Result Comment: <150 mg/dL, Normal 150-199 mg/dL, Borderline high 200-499 mg/dL, High >499 mg/dL, Very high Performed By: #### C MP, INSLAB, LIPB, CPEPT, GADCAB, B12, VITD, UACR ####[address] [place], [place] [phone] VLDL Cholesterol 24 mg/dL Normal <30 [facility] Comment on above: Performed By: #### C MP, INSLAB, LIPB, CPEPT, GADCAB, B12, VITD, UACR ####[address] [phone] Vitamin B12on 09-27-2020 Cobalamin (Vitamin B12) [Mass/Vol] 431 pg/mL Normal 232-1245 [facility] Comment on above: Performed By: #### C MP, INSLAB, LIPB, CPEPT, GADCAB, B12, VITD, UACR ####[facility] [place], [place] [phone] Vitamin D 25 Hydroxyon 09-27 Vitamin D 25 Hydroxy 47.2 ng/mL Normal 31.0-80.0 [facility] Comment on above: Result Comment: Clas sification of 25 [place] Vitamin D status: Insufficiency/Moderate Deficiency: < or = 30 ng/mL Sufficiency/Optimal Levels: 31 to 80 ng/mL Toxicity: > 100 ng/mL Test performed by chemiluminescent immunoassay. Performed By: #### C MP, INSLAB, LIPB, CPEPT, GADCAB, B12, VITD, UACR ####[facility] [place], [place] [phone] CNPNiki 09-22-2020 MINNAN Telephone ([place]) -------- IVELISSE GEE ([id number]) 1950 F Date Time Provider Department 09/22/20 MEHRDAD AGUILAR During your visit today, we recorded the following information about you: Julianne Bekc 09/22/2020 11:15 AM Signed Please sign pending lab orders for Saturday09/30/20. Thanks, Julianne Beck Allergies As of Date: 09/22/2020 Noted Allergy Reaction SULFA (SULFONAMIDE ANTIBIOTICS) 09/05/2016 10 - Anaphylaxis LATEX, NATURAL RUBBER 09/06/2016 16 - Unknown Comments: Only bandaids Date Reviewed: 09/22/2020 Reviewed by: Mac Perez APRN.ORE ROASTER - Fully Assessed Reason for Visit: Lab Orders [5898] Primary Visit Diagnosis:Thrombocytopen ia (HCC) [D69.6] Order(s):CBC + DIFF [SQCBCDIF] Order #: [id number] STANDING COMP METABOLIC PANEL [SQCMP] Order #: [id number] STANDING Prescriptions as of 09/22/2020 Sig: METFORMIN [...] Status:Closed by MAC PEREZ on 09/22/20 Normal [facility] MRI ABDOMEN WO/W IVCONon MRI ABDOMEN WO/W IVCON * * *Final Report * * * DATE OF EXAM: Sep 21 2020 11:45AM [facility] 0689 - MRI ABDOMEN WO/W IVCON / [...] cysts. Cholecystectomy with mildly dilatation. No choledocholithiasis. Lube Worker: SHAHRZAD Transcribe Date/Time: Sep 21 2020 1:58P Dictated by : ANA MARÍA ARAIZA MD This examination was interpreted and the report reviewed and electronically signed by: ANA MARÍA ARAIZA MD on Sep 21 2020 10:19PM EST [id number] Normal [facility] CNPNiki 09-01-2020 CNPN Telephone ([place]) -------- IVELISSE GEE ([id number]) 1950 F Date Time Provider Department 09/01/20 [...] Clerical: Please schedule pt for MRI at [facility]. Thank you. BRM: Order pending, please review and sign. MONICO Louie 09/01/2020 2:24 PM Signed Called patient to inform her that she has been scheduled for MRI @ [facility] on 09/07/20 @ 8:30am. LMOV. 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 Mastic Sprayer (topogram) images: No additional findings. IMPRESSION: 1. [...] any questions regarding this interpretation, please call [phone]. If you are unable to reach us at the number above, please feel free to contact [facility] eRadiology at [phone]. [id number] Normal [facility] Protein Electrophor.on 08-30 Albumin [Mass/Vol] 4.24 g/dL High 3.37-4.23 [facility] Comment on above: Performed By: #### S EPG ####[place] [address] [place] [phone] Alpha 1 Globulin 0.27 gm/dL Normal 0.18-0.31 [facility] Comment on above: Performed By: #### S EPG ####[address] [place] [place], [place] [phone] Alpha 2 Globulin 0.82 gm/dL Normal 0.52-0.97 [facility] Comment on above: Performed By: #### S EPG ####[facility] [id number] [place], [place] [phone] Beta Globulin 1.11 gm/dL Normal 0.84-1.36 [facility] Comment on above: Performed By: #### S EPG ####[address] [place] [place], [place] [phone] Gamma Globulin 1.27 gm/dL Normal 0.70-1.44 [facility] Comment on above: Performed By: #### S EPG ####[address] [phone] Interpretation SEE COMMENT [facility] Comment on above: Result Comment: No d efinitive M protein is identified on protein electrophoresis. Performed By: #### S EPG ####[address] [phone] M Protein Location N/A [facility] Comment on above: Performed By: #### S EPG ####[address] [phone] M Shmuel Concentratn 0.00 gm/dL Normal 0.00 [facility] Comment on above: Performed By: #### S EPG ####[address] [phone] Protein [Mass/Vol] 7.7 g/dL Normal 6.3-8.0 [facility] Comment on above: Performed By: #### S EPG ####[address] [phone] SPE Staff Review Reviewed by Audelia Cabrera MD ([id number]) [facility] Comment on above: Performed By: #### S EPG ####[address] [phone] Js 08-23-2020 CNPN Telephone (GRACIEAP) -------- IVELISSE GEE ([id number]) 1950 F Date Time Provider Department 08/23/20 [...] Note Left message at Dr Magdaleno Cuello [facility]. They may ask for me. She needs to be seen for Liver cirrhosis. Please call [phone] to refer this patient if they do not call back to schedule. Tracy Gonzáles [facility] 08/24/2020 10:00 AM Signed Records and referral faxed to [facility]. Marta Cuellar Pss 08/25/2020 1:09 PM [...] Encounter Status:Closed by ADELE DELONG on 09/20/20 [facility] Js 08-22-2020 [facility] Telephone ([facility]) -------- IVELISSE GEE ([id number]) 1950 F Date Time Provider Department 08/22/20 MEHRDAD AGUILAR During your visit today, we recorded the following information about you: Allergies As of Date: 08/22/2020 Noted Allergy Reaction SULFA (SULFONAMIDE ANTIBIOTICS) 09/05/2016 10 - Anaphylaxis LATEX, NATURAL RUBBER 09/06/2016 16 - Unknown Comments: Only bandaids Date Reviewed: 08/19/2020 Reviewed by: Carlos Brewer MA - Fully Assessed Reason for Visit: Patient Question [8829] Prescriptions as of 08/22/2020 Sig: METFORMIN ER [...] Encounter Status:Closed by MARTA GARCES on 08/22/20 [facility] CNOVSPon 08-19-2020 CNOVSP Visit (SP) Office ([place]) -------- IVEILSSE GEE ([id number]) 1950 F Date Time Provider Department 08/19/20 11:15 AM MEHRDAD AGUILAR During your visit today, we recorded the following information about you: Temperature Pulse Respiration Blood pressure 98.2 degrees 88/minute 16/minute 130/56 Weight Height 74 kg 1.57 m Mehrdad Aguilar MD 08/20/2020 1:40 PM Signed PATIENT NAME: Ivelisse Gee DATE: 08/19/2020 PRIMARY CARE PHYSICIAN: Carmen Conley MD OTHER PHYSICIANS: Dr. Wahl ((PCP [place], [place]) HPI: This is a 70 year [...] CBC. Since the patient's hospitalization she started cunn-uqx-ncnfmug supplements including multivitamin. She has had no [...] intolerance, urinar (more content not included)... Normal [facility] IVELISSE GEE ([id number]) 1950 F Date Time Provider Department 08/19/20 JESSIE ACUÑA (RN) [place] During your visit today, we recorded the following information about you: Jessie Acuña 08/19/2020 12:27 PM Signed Please sign pending CAP CTs w/IVCON for Ivelisse Gee [id number] who was added to the schedule for scans on 08/30. Thanks KAMALJIT Zepeda, RN Mehrdad Aguilar MD 08/19/2020 12:41 PM Signed Actually we just need CT abd/pelvis LIONEL Acuña 08/19/2020 1:07 PM Signed Noted to [...] lymph node [R59.9] Order(s):CT ABD/PEL W IVCON [[id number]] Order #: [id number] FUTURE iv contrast (will be provided with [...] Status:Closed by JESSIE ACUÑA on 08/19/20 Normal [facility] Comp Metabolic Panelon 08-19 Albumin [Mass/Vol] 4.7 g/dL Normal 3.9-4.9 [facility] ALP [Catalytic activity/Vol] 93 U/L Normal 34-123 [facility] ALT [Catalytic activity/Vol] 56 U/L High 7-38 [facility] Anion gap [Moles/Vol] 12 mmol/L Normal 9-18 [facility] AST [Catalytic activity/Vol] 40 U/L High 13-35 [facility] Bilirubin [Mass/Vol] 0.9 mg/dL Normal 0.2-1.3 [facility] Calcium [Mass/Vol] 9.8 mg/dL Normal 8.5-10.2 [facility] Chloride [Moles/Vol] 102 mmol/L Normal 97-105 [facility] CO2 [Moles/Vol] 22 mmol/L Normal 22-30 [facility] Creatinine [Mass/Vol] 0.66 mg/dL Normal 0.58-0.96 [facility] eGFR- Amer. >60 Normal [facility] eGFR-All Other Races >[address] [facility] Comment on above: Result Comment: eGFR [...] GFR. Glucose [Mass/Vol] 258 mg/dL High 74-99 [facility] Comment on above: Result Comment: The [place] Diabetes Association (ADA) provides guidance for cutoff [...] Standards of Medical Care in Diabetes 2016, [place] Diabetes Association. Diabetes Care. 2016.39(Suppl 1). Potassium [Moles/Vol] 4.3 mmol/L Normal 3.7-5.1 [facility] Protein [Mass/Vol] 8.0 g/dL Normal 6.3-8.0 [facility] Sodium [Moles/Vol] 136 mmol/L Normal 136-144 [facility] Urea nitrogen [Mass/Vol] 13 mg/dL Normal 7-21 [facility] Ferritinon 08-19-2020 Ferritin [Mass/Vol] 184.0 ng/mL Normal 14.7-205.1 [facility] Comment on above: Performed By: #### F ERR, IRON ####[place] [address] [place], [place] [phone] Iron and TIBCon 08-19-2020 Iron [Mass/Vol] 116 ug/dL Normal 41-186 [facility] Comment on above: Performed By: #### F ERR, IRON ####[place] [address] [place], [place] [phone] TIBC 357 ug/dL Normal 232-386 [facility] Comment on above: Performed By: #### F ERR, IRON ####[address], [place] [phone] Transferrin Saturatn 32 % Normal 15-57 [facility] Comment on above: Performed By: #### F ERR, IRON ####[address] [place], [place] [phone] LDon 08-19-2020 LD 171 U/L Normal 135-214 [facility] Monclnl Protein, Seron 08-19 K/L Ratio, Serum 1.43 Normal 0.26-1.65 [facility] Comment on above: Performed By: #### S ERMPA, B12 ####[address] [phone] [place], Free, Serum 28.3 mg/L High 3.30-19.40 [facility] Comment on above: Result Comment: Test performed by an immunoturbidimetric assay on [employer] instrument from [facility]. Immunoglobulin free light chain assay results should be interpreted in conjunction with other tests and in correlation with clinical picture. Performed By: #### S ANGELICA B12 ####[place] [address] [place] [address] [phone] Lambda, Free, Serum 19.8 mg/L Normal 5.7-26.3 [facility] Comment on above: Result Comment: Test performed by an immunoturbidimetric assay on [employer] instrument from [facility]. Immunoglobulin free light chain assay results should be interpreted in conjunction with other tests and in correlation with clinical picture. Performed By: #### S ANGELICA B12 ####[address] [place] [phone] MPA Interpretation SEE COMMENT Normal [facility] Comment on above: Result Comment: Poor [...] necessary. Performed By: #### Marlee DOMINGUEZ B12 ####[address] [place] [phone] MPA Result A poorly defined reg ion of restricted mobility is present that may represent an M protein. Critically abnormal No M protein is identified . [facility] Comment on above: Performed By: #### S ANGELICA B12 ####[facility] [place] [phone] MPA Serum IgA 196 mg/dL Normal 70-400 [facility] Comment on above: Performed By: #### S ANGELICA, B12 ####[facility] [place] [phone] MPA Serum IgG 1243 mg/dL Normal 700-1600 [facility] Comment on above: Performed By: #### S ANGELICA, B12 ####[place] [address] [place], [place] [phone] MPA Serum IgM 58 mg/dL Normal 40-230 [facility] Comment on above: Performed By: #### S ANGELICA, B12 ####[facility] [place], [place] [phone] Staff Review Reviewed by Audelia Cabrera MD ([id number]) Normal [facility] Comment on above: Performed By: #### S ANGELICA, B12 ####[facility] [place], [place] [phone] Remote CBCDIF (for [facility] use o nly)on 08-19-2020 Abs Baso <0.03 Normal <0.11 [facility] Abs Dickenson 0.33 k/uL Normal <0.87 [facility] Abs Neut 3.89 k/uL Normal 1.45-7.50 [facility] Absolute nRBC <0.01 Normal <0.01 [facility] Basophils/100 WBC (Bld) 0.3 % Normal [facility] DTYPE Auto Diff Normal [facility] Eosinophils (Bld) [#/Vol] 0.14 10*3/uL Normal <0.46 [facility] Eosinophils/100 WBC (Bld) 2.0 % Normal [facility] Erythrocyte distribution width (RBC) [Ratio] 12.8 % Normal 11.5-15.0 [facility] Hematocrit (Bld) [Volume fraction] 40.5 % Normal 36.0-46.0 [facility] Hemoglobin (Bld) [Mass/Vol] 13.8 g/dL Normal 11.5-15.5 [facility] Lymphocytes (Bld) [#/Vol] 2.71 10*3/uL Normal 1.00-4.00 [facility] Lymphocytes/100 WBC (Bld) 38.1 % Normal [facility] MCH 31.2 pG Normal 26.0-34.0 [facility] MCHC (RBC) [Mass/Vol] 34.1 g/dL Normal 30.5-36.0 [facility] MCV (RBC) [Entitic vol] 91.4 fL Normal 80.0-100.0 [facility] Monocytes/100 WBC (Bld) 4.6 % Normal [facility] Neutrophils/100 WBC (Bld) 55.0 % Normal [facility] NRBCs 0.0 /100 WBC Normal 0 [facility] Platelet mean volume (Bld) [Entitic vol] 9.7 fL Normal 9.0-12.7 [facility] Platelets (Bld) [#/Vol] 170 10*3/uL Normal 150-400 [facility] RBC (Bld) [#/Vol] 4.43 10*6/uL Normal 3.90-5.20 [facility] WBC (Bld) [#/Vol] 7.11 10*3/uL Normal 3.70-11.00 [facility] Reticulocyteon 08-19-2020 Abs Retic 0.096 M/uL Normal 0.0180-0.1 000 [facility] Retic% 2.2 % High 0.4-2.0 [facility] Vitamin B12on 08-19-2020 Cobalamin (Vitamin B12) [Mass/Vol] 421 pg/mL Normal 232-1245 [facility] Comment on above: Performed By: #### S ERMSANTO, B12 ####[facility] [id number] [place], [place] [phone] Vital Signs Date Time Vital Sign Value Performing Clinician Faci lity 10-08-2023 13:29-0400 Diastolic blood pressure 80 mm[Hg] [facility] 10-08-2023 13:29-0400 Heart rate 79 /min [facility] 10-08-2023 13:29-0400 Respiratory rate 20 /min [facility] 10-08-2023 13:29-0400 SaO2% (BldA) [Mass fraction] 94 % [facility] 10-08-2023 13:29-0400 Systolic blood pressure 134 mm[Hg] [facility] 09-05-2023 10:12-0400 Diastolic blood pressure 86 mm[Hg] [facility] 09-05-2023 10:12-0400 Mean blood pressure 105 mm[Hg] [facility] 09-05-2023 10:12-0400 Systolic blood pressure 142 mm[Hg] [facility] 09-05-2023 10:01-0400 Blood Pressure Location [facility] 09-05-2023 10:01-0400 Diastolic blood pressure 88 mm[Hg] [facility] 09-05-2023 10:01-0400 Heart rate 82 /min Dontae [facility] 09-05-2023 10:01-0400 SaO2% (BldA) [Mass fraction] 97 % Dontae [facility] 09-05-2023 10:01-0400 Systolic blood pressure 142 mm[Hg] Dontae [facility] 07-24-2023 13:50-0400 Blood Pressure Location Shaun Goode [facility] 07-24-2023 13:50-0400 Diastolic blood pressure 77 mm[Hg] Shaun Goode [facility] 07-24-2023 13:50-0400 Heart rate 85 /min Shaun Goode [facility] 07-24-2023 13:50-0400 Respiratory rate 16 /min Shaun Goode [facility] 07-24-2023 13:50-0400 Systolic blood pressure 135 mm[Hg] Mohamad Mouchli [facility] 07-02-2023 09:50-0400 Diastolic blood pressure 72 mm[Hg] Mohamad Mouchli [facility] 07-02-2023 09:50-0400 Heart rate 82 /min Mohamad Mouchli [facility] 07-02-2023 09:50-0400 Mean blood pressure 97 mm[Hg] Mohamad Mouchli [facility] 07-02-2023 09:50-0400 Respiratory rate 17 /min Mohamad Mouchli [facility] 07-02-2023 09:50-0400 SaO2% (BldA) [Mass fraction] 94 % Mohamad Mouchli [facility] 07-02-2023 09:50-0400 Systolic blood pressure 148 mm[Hg] Mohamad Mouchli [facility] 07-02-2023 09:40-0400 Diastolic blood pressure 72 mm[Hg] Mohamad Mouchli [facility] 07-02-2023 09:40-0400 Heart rate 80 /min Mohamad Mouchli [facility] 07-02-2023 09:40-0400 Mean blood pressure 92 mm[Hg] Mohamad Mouchli [facility] 07-02-2023 09:40-0400 Respiratory rate 11 /min Mohamad Mouchli [facility] 07-02-2023 09:40-0400 SaO2% (BldA) [Mass fraction] 93 % Mohamad Mouchli [facility] 07-02-2023 09:40-0400 Systolic blood pressure 132 mm[Hg] Mohamad Mouchli [facility] 07-02-2023 09:35-0400 Diastolic blood pressure 62 mm[Hg] Mohamad Mouchli [facility] 07-02-2023 09:35-0400 Heart rate 86 /min Mohamad Mouchli [facility] 07-02-2023 09:35-0400 Mean blood pressure 90 mm[Hg] Mohamad Mouchli [facility] 07-02-2023 09:35-0400 Respiratory rate 15 /min Mohamad Mouchli [facility] 07-02-2023 09:35-0400 SaO2% (BldA) [Mass fraction] 93 % Mohamad Mouchli [facility] 07-02-2023 09:35-0400 Systolic blood pressure 147 mm[Hg] Mohamad Mouchli [facility] 07-02-2023 09:25-0400 Body temperature 97.16 [degF] Mohamad Mouchli [facility] 07-02-2023 08:43-0400 Blood Pressure Location Mohamad Mouchli [facility] 07-02-2023 08:43-0400 Body temperature 96.8 [degF] Mohamad Mouchli [facility] 06-26-2023 12:17-0400 Blood Pressure Location Mohamad Mouchli [facility] 06-26-2023 12:17-0400 Diastolic blood pressure 82 mm[Hg] Mohamad Mouchli [facility] 06-26-2023 12:17-0400 Heart rate 80 /min Mohamad Mouchli [facility] 06-26-2023 12:17-0400 Respiratory rate 16 /min Ramyad Mouchli [facility] 06-26-2023 12:17-0400 Systolic blood pressure 138 mm[Hg] Ramyad Mouchli [facility] 06-21-2023 13:44-0400 Diastolic blood pressure 68 mm[Hg] Deonte Blancbabatunde [facility] 06-21-2023 13:44-0400 Heart rate 96 /min Deonte Peraza [facility] 06-21-2023 13:44-0400 SaO2% (BldA) [Mass fraction] 95 % Deonte Soteroofferson [facility] 06-21-2023 13:44-0400 Systolic blood pressure 138 mm[Hg] Deonte Bl[facility] 03-21-2023 13:30-0500 Body height 153.67 cm Carmen Conley [facility] [employer] Other 03-21-2023 13:30-0500 Body mass index (BMI) [Ratio] 30.54 kg/m2 Carmen Conley [facility] [employer] Other 03-21-2023 13:30-0500 Body weight 72.12 kg Carmen Conley [facility] [employer] Other 03-21-2023 13:30-0500 Diastolic blood pressure 79 mm[Hg] Carmen Conley Other [facility] [employer] Other 03-21-2023 13:30-0500 Systolic blood pressure 136 mm[Hg] Carmen Conley Other [facility] [employer] Other 01-24-2023 11:15-0400 Body height 153.67 cm Carmen Conley [facility] [employer] Other 01-24-2023 11:15-0400 Body mass index (BMI) [Ratio] 29.58 kg/m2 Carmen Conley [facility] [employer] Other 01-24-2023 11:15-0400 Body temperature 97.7 [degF] Carmen Conley Other [facility] [employer] Other 01-24-2023 11:15-0400 Body weight 69.85 kg Carmen Conley Other [facility] [employer] Other 01-24-2023 11:15-0400 Diastolic blood pressure 80 mm[Hg] Carmen Conley Other [facility] [employer] Other 01-24-2023 11:15-0400 SaO2% (BldA) [Mass fraction] 97 % Carmen Conley Other [facility] [employer] Other 01-24-2023 11:15-0400 Systolic blood pressure 137 mm[Hg] Carmen Conley Other [facility] [employer] Other 12-28-2022 13:30-0400 Body height 153.67 cm Carmen Conley Other [facility] [employer] Other 12-28-2022 13:30-0400 Body mass index (BMI) [Ratio] 29.96 kg/m2 Carmen Conley Other [facility] [employer] Other 09-22-2023 13:30-0400 Body weight 70.76 kg Carmen Conley Other [facility] [employer] Other 12-28-2022 13:30-0400 Diastolic blood pressure 64 mm[Hg] Carmen Conley Other [employer] [employer] Other 12-28-2022 13:30-0400 Systolic blood pressure 106 mm[Hg] Carmen Conley Other [facility] [employer] Other 08-07-2022 12:45-0400 Body height 153.67 cm Carmen Conley Other [facility] [employer] Other 08-07-2022 12:45-0400 Body mass index (BMI) [Ratio] 30.15 kg/m2 Carmen Conley Other [facility] [employer] Other 08-07-2022 12:45-0400 Body temperature 98.1 [degF] Carmen Conley Other [facility] [employer] Other 08-07-2022 12:45-0400 Body weight 71.22 kg Carmen Conley Other [facility] [employer] Other 08-07-2022 12:45-0400 Diastolic blood pressure 72 mm[Hg] Carmen Conley Other [facility] [employer] Other 08-07-2022 12:45-0400 SaO2% (BldA) [Mass fraction] 97 % Carmen Conley [facility] [employer] Other 08-07-2022 12:45-0400 Systolic blood pressure 132 mm[Hg] Carmen Conley Other [facility] Other 06-20-2022 12:00-0400 Body height 153.67 cm Carmen Conley [facility] [employer] Other 06-20-2022 12:00-0400 Body mass index (BMI) [Ratio] 30.54 kg/m2 Carmen Conley [facility] [employer] Other 06-20-2022 12:00-0400 Body weight 72.12 kg Carmen Conley Other [facility] [employer] Other 06-20-2022 12:00-0400 Diastolic blood pressure 70 mm[Hg] Carmen Conley Other [facility] [employer] Other 06-20-2022 12:00-0400 SaO2% (BldA) [Mass fraction] 98 % Carmen Conley [facility] [employer] Other 06-20-2022 12:00-0400 Systolic blood pressure 118 mm[Hg] Carmen Conley Other [facility] [employer] Other 06-12-2022 09:30-0500 Body height 153.67 cm Carmen Conley [facility] [employer] Other 06-12-2022 09:30-0500 Body mass index (BMI) [Ratio] 30.54 kg/m2 Carmen Conley [facility] [employer] Other 06-12-2022 09:30-0500 Body weight 72.12 kg Carmen Conley Other [facility] [employer] Other 06-12-2022 09:30-0500 Diastolic blood pressure 64 mm[Hg] Carmen Conley Other [facility] [employer] Other 06-12-2022 09:30-0500 SaO2% (BldA) [Mass fraction] 97 % Carmen Conley Other [facility] [employer] Other 06-12-2022 09:30-0500 Systolic blood pressure 116 mm[Hg] Carmen Conley Other [facility] [employer] Other 05-10-2022 11:00-0500 Body height 153.67 cm Carmen Conley Other [facility] [employer] Other 05-10-2022 11:00-0500 Body mass index (BMI) [Ratio] 30.54 kg/m2 Carmen Conley Other [facility] [employer] Other 05-10-2022 11:00-0500 Body weight 72.12 kg Carmen Conley Other [facility] Other 05-10-2022 11:00-0500 Diastolic blood pressure 62 mm[Hg] Carmen Conley Other [facility] [employer] Other 05-10-2022 11:00-0500 SaO2% (BldA) [Mass fraction] 97 % Carmen Conley Other [facility] Other 05-10-2022 11:00-0500 Systolic blood pressure 118 mm[Hg] Carmen Conley Other [facility] Other 04-20-2022 11:30-0500 Body height 153.67 cm Carmen Conley Other [facility] [employer] Other 04-20-2022 11:30-0500 Body mass index (BMI) [Ratio] 30.54 kg/m2 Carmen Conley Other [facility] [employer] Other 04-20-2022 11:30-0500 Body weight 72.12 kg Carmen Conley Other [facility] Other 04-20-2022 11:30-0500 Diastolic blood pressure 80 mm[Hg] Carmen Conley Other [facility] [employer] Other 04-20-2022 11:30-0500 SaO2% (BldA) [Mass fraction] 97 % Carmen Conley Other [facility] Other 04-20-2022 11:30-0500 Systolic blood pressure 126 mm[Hg] Carmen Conley Other [facility] [employer] Other 04-16-2022 15:15-0500 Body height 153.67 cm Carmen Conley Other [facility] [employer] Other 04-16-2022 15:15-0500 Body mass index (BMI) [Ratio] 30.35 kg/m2 Carmen Conley Other [facility] Other 04-16-2022 15:15-0500 Body weight 71.67 kg Carmen Conley Other [facility] Other 04-16-2022 15:15-0500 Diastolic blood pressure 82 mm[Hg] Cramen Conley Other [facility] [employer] Other 04-16-2022 15:15-0500 SaO2% (BldA) [Mass fraction] 97 % Carmen Conley [facility] [employer] Other 04-16-2022 15:15-0500 Systolic blood pressure 136 mm[Hg] Carmen Conley [facility] [employer] Other Encounters Encounter Date Encounter Type Care Provider Facility Start: 11-25-2023 End: 11-25-2023 ambulatory Nohemy Mohamud MD [facility] Start: 10-28-2023 End: 10-28-2023 ambulatory Nohemy Mohamud MD [facility]: [facility] Start: 10-08-2023 End: 10-08-2023 ambulatory PA-C Dontae Hernández Facility[facility] Start: 10-08-2023 End: 10-08-2023 Patient encounter procedure Dontae [facility] Start: 10-01-2023 End: 10-01-2023 ambulatory PA-C Dontae Hernández Facility:[facility] Start: 10-01-2023 End: 10-01-2023 Patient encounter procedure Dontae [facility] Start: 09-05-2023 End: 09-05-2023 ambulatory XXXX NONE Facility:[facility] Start: 09-05-2023 End: 09-05-2023 Patient encounter procedure Dontae [facility] Start: 08-05-2023 End: 08-05-2023 ambulatory Deonte Peraza Facility:[facility] Start: 08-05-2023 End: 08-05-2023 Patient encounter procedure Deonte [facility]aza [facility] Start: 08-01-2023 End: 08-16-2023 Pre-admission assessment Deonte Peraza [facility] Start: 07-24-2023 End: 08-07-2023 Pre-admission assessment Shaun Goode [facility] Start: 07-24-2023 End: 07-24-2023 ambulatory Shaun Goode Facility:[facility] Start: 07-24-2023 End: 07-24-2023 Patient encounter procedure Shaun Goode [facility] Start: 07-02-2023 End: 07-02-2023 ambulatory Shaun Goode Facility:[facility] Start: 07-02-2023 End: 07-02-2023 Patient encounter procedure Shaun Goode [facility] Start: 06-26-2023 End: 06-26-2023 ambulatory Shaun Goode Facility:[facility] Start: 06-26-2023 End: 06-26-2023 Patient encounter procedure Shaun Wild[facility] Start: 06-26-2023 End: 06-26-2023 ambulatory Shaun WolfeJeff Junitomaximo [facility] Start: 06-26-2023 End: 06-26-2023 Patient encounter procedure Shaun WolfeJeff Junitomaximo [facility] Start: 06-21-2023 End: 06-21-2023 ambulatory Deonte Peraza Facility:[facility] Start: 06-21-2023 End: 06-21-2023 Patient encounter procedure Deonte Peraza [facility] Start: 06-18-2023 End: 06-18-2023 ambulatory MD Lucho GOINS Facility:[facility] Start: 06-18-2023 End: 06-18-2023 Patient encounter procedure CARMEN CONLEY [facility] Start: 06-13-2023 ambulatory JANUSZ Turner ity:[facility] Start: 05-14-2023 End: 05-14-2023 ambulatory Carmen Conley Other [facility] Other Start: 05-14-2023 Telephone encounter Carmen Conley [facility] Start: 04-16-2023 End: 04-16-2023 ambulatory ZULEIMA A FELTER Not Available Start: 04-03-2023 End: 04-03-2023 ambulatory Carmen Conley Other [facility] Other Start: 04-03-2023 Telephone encounter Carmen Conley [facility] Start: 04-02-2023 End: 04-02-2023 ambulatory Carmen Yael Other [facility] [employer] Other Start: 04-02-2023 Telephone encounter Carmen Conley [facility] Start: 03-21-2023 End: 03-21-2023 ambulatory Carmen Yael Other [facility] Other Start: 03-21-2023 Office outpatient vi sit 15 minutes Carmen Conley [facility] Start: 03-21-2023 Telephone encounter Carmen Conley [facility] Start: 03-04-2023 End: 03-04-2023 ambulatory ZULEIMA Wolfe FELTER Not Available Start: 02-06-2023 End: 02-06-2023 ambulatory Carmen Conley Other [facility] Other Start: 02-06-2023 Telephone encounter Carmen Conley [facility] Start: 02-01-2023 End: 02-01-2023 ambulatory Carmen Conley Other [facility] [employer] Other Start: 02-01-2023 Telephone encounter Carmen Conley [facility] Start: 01-24-2023 End: 01-24-2023 ambulatory Carmen Conley Other [facility] Other Start: 01-24-2023 Office outpatient vi sit 15 minutes Carmen Conley [facility] Start: 01-17-2023 End: 01-17-2023 ambulatory Carmen Conley Other [facility] Other Start: 01-17-2023 Telephone encounter Carmen Conley [facility] Start: 01-01-2023 End: 01-01-2023 ambulatory Carmen Conley Other [facility] Other Start: 01-01-2023 Telephone encounter Carmen Conley [facility] Start: 12-28-2022 End: 12-28-2022 ambulatory Carmen Conley Other [facility] Other Start: 12-28-2022 Patient encounter procedure Carmen Conley [facility] Start: 10-04-2022 End: 10-04-2022 ambulatory Carmen Conley Other [facility] Other Start: 10-04-2022 Telephone encounter Carmen Conley [facility] Start: 08-09-2022 End: 08-09-2022 ambulatory Carmen Conley Other [facility] Other Start: 08-09-2022 Telephone encounter Carmen Conley [facility] Start: 08-08-2022 Telephone encounter Carmen Yael [facility] Start: 08-08-2022 End: 08-09-[address] CARMEN CONLEY [facility] Other Start: 08-07-2022 End: 08-07-2022 ambulatory Carmen Conley Other [facility] Other Start: 08-07-2022 Office outpatient vi sit 15 minutes Carmen Conley [facility] Start: 07-31-2022 End: 07-31-2022 ambulatory Carmen Conley Other [facility] [employer] Other Start: 07-31-2022 Telephone encounter Carmen Conley [facility] Start: 07-24-2022 End: 07-24-2022 ambulatory Carmen Conley Facility:[facility] Start: 07-02-2022 End: 07-03-[address] CARMEN CONLEY Facility: Start: 06-20-2022 End: 06-20-2022 ambulatory Carmen Conley Other [facility] [employer] Other Start: 06-20-2022 Office outpatient vi sit 10 minutes Carmen Conley [facility] Start: 06-14-2022 End: 06-14-2022 ambulatory Carmen Conley Other [facility] Other Start: 06-14-2022 Telephone encounter Carmen Conley [facility] Start: 06-12-2022 Office outpatient vi sit 15 minutes Carmen Conley [facility] Start: 06-12-2022 End: 06-13-[address] CARMEN CONLEY [facility] Other Start: 05-10-2022 End: 05-10-2022 ambulatory Carmen Conley Other [facility] Other Start: 05-10-2022 Office outpatient vi sit 15 minutes Carmen Conley [facility] Start: 05-10-2022 Telephone encounter Carmen Conley [facility] Start: 05-03-2022 End: 05-03-2022 ambulatory Carmen Conley Other [facility] Other Start: 05-03-2022 Telephone encounter Carmen Conley [facility] Start: 04-23-2022 End: 04-24-[address] CARMEN CONLEY Facility: Start: 04-20-2022 End: 04-20-2022 ambulatory Carmen Conley Other [facility] Other Start: 04-20-2022 Office outpatient vi sit 25 minutes Carmen Conley [facility] Start: 04-17-2022 End: 04-17-2022 ambulatory Carmen Conley Other [facility] Other Start: 04-17-2022 Telephone encounter Carmen Conley [facility] Start: 04-16-2022 End: 04-16-2022 ambulatory Carmen Conley Other [facility] Other Start: 04-16-2022 Office outpatient vi sit [...] 09-21-2020 Subsequent hospital visit by physician Mri Hugh [facility] (Lg Bore/1.5t) Radiology MRI Comment on above: [...] panel - Serum or Plasma Lipid Screening [facility] Start: 09-27-2025 LIPID SCREEN LIPID SCREEN [facility] Start: 01-08-2024 [facility] Start: 09-28-2023 DIABETES SCREEN DIABETES SCREEN [facility] Start: 09-28-2023 Diabetes Screening Diabetes Screening [facility] Start: 12-07-2022 Influenza vaccination Influenza Vaccine (#1) [facility] Start: 04-08-2022 Advance Directive Discussion Advance Directive Discussion [facility] Start: 04-08-2022 Depression Assessment Depression Assessment [facility] Start: 12-07-2021 Influenza vaccination INFLUENZA (Season Ended) [facility] Start: 09-30-2021 Adult depression screening assessment DEPRESSION SCREENING [facility] Start: 04-08-2021 ADVANCE DIRECTIVE DISCUSSION ADVANCE DIRECTIVE DISCUSSION [facility] Start: 02-17-2020 Pneumococcal Vaccine: 65+ (3 - PPSV23 or PCV20) Pneumococcal Vaccine: 65+ (3 - PPSV23 or PCV20) [facility] Start: 01-07-2016 PNEUMOVAX AGE 65 AND OVER WITH 5YR LOOKBACK (#1) PNEUMOVAX AGE 65 AND OVER WITH 5YR LOOKBACK (#1) [facility] Start: 03-31-2015 SHINGRIX VACCINE (2 of 3) SHINGRIX VACCINE (2 of 3) [facility] Start: 2014 BONE DENSITY BONE DENSITY [facility] Start: 2014 Bone Density Screening Bone Density Screening [facility] Start: 2009 RSV Vaccine (1 - 1-dose 60+ series) RSV Vaccine (1 - 1-dose 60+ series) [facility] Start: 1994 COLOGUARD (FIT-DNA) COLOGUARD (FIT-DNA) [facility] Start: 1994 Colonoscopy COLONOSCOPY [facility] Start: 1994 COLORECTAL CANCER SCREENING COLORECTAL CANCER SCREENING [facility] Start: [address] COLONOGRAPHY [facility] Start: 1994 FECAL OCCULT BLOOD FECAL OCCULT BLOOD [facility] Start: 1994 SIGMOIDOSCOPY SIGMOIDOSCOPY [facility] Start: 1989 Mammography [facility] Start: 1968 HEPATITIS B (1 of 3 - Risk 3-dose series) HEPATITIS B (1 of 3 - Risk 3-dose series) [facility] Start: 1968 Urine microalbumin profile [facility] Start: 08-04-1967 HEPATITIS C SCREENING HEPATITIS C SCREENING [facility] Start: 1954 COVID-19 VACCINE (1) COVID-19 VACCINE (1) [facility] Start: 1950 HEPATITIS A (1 of 2 - Risk 2-dose series) HEPATITIS A (1 of 2 - Risk 2-dose series) [facility] Start: 02-02-1950 Covid-19 Vaccine (#1) Covid-19 Vaccine (#1) [facility] Immunizations Immunization Date Immunization Notes Care Provider Fa cili 12-28-2022 pneumococcal polysaccharide vaccine, 23 valent Carmen Conley Other [facility] Other 12-28-2022 influenza, high dose seasonal, preservative-free Carmen Conley Other [facility] Other 07-04-2020 COVID-19 Vaccine Moderna - Documentation Purposes Only Carmen Conley Other [facility] Other 01-07-2020 influenza, high dose seasonal, preservative-free Mehrdad Aguilar MD Work Phone: [facility] 01-07-2020 influenza virus vaccine, unspecified formulation Mri Bore/1.5t) [facility] 11-27-2019 influenza virus vaccine, split virus (incl. purified surface antigen) Carmen Conley Other [facility] Other 01-06-2019 influenza, high dose seasonal, preservative-free Mehrdad Aguilar MD Work Phone: [facility] 01-01-2019 influenza virus vaccine, split virus (incl. purified surface antigen) Carmen Conley Other [facility] [employer] Other 01-01-2019 influenza virus vaccine, unspecified formulation Shaun Goode [facility] 01-01-2019 Seasonal trivalent influenza vaccine, adjuvanted, preservative free Mehrdad Aguilar MD Work Phone: [facility] 01-13-2018 influenza nasal, unspecified formulation Mehrdad Aguilar MD Work Phone: [facility] 12-17-2017 influenza virus vaccine, unspecified formulation Yvetteamaemmy Goode [facility] 12-17-2017 influenza, high dose seasonal, preservative-free Mehrdad Aguilar MD Work Phone: [facility] 02-05-2017 influenza, high dose seasonal, preservative-free Mehrdad Aguilar MD Work Phone: [facility] 04-09-2016 influenza virus vaccine, unspecified formulation Yvetteamaemmy Junitomaximo [facility] 04-09-2016 influenza, injectabl e, quadrivalent, preservative free Mehrdad Aguilar MD Work Phone: [facility] 03-05-2016 influenza, high dose seasonal, preservative-free Mehrdad Aguilar MD Work Phone: [facility] 02-16-2015 influenza, high dose seasonal, preservative-free Mehrdad Aguilar MD Work Phone: [facility] 02-16-2015 pneumococcal conjuga te vaccine, 13 valent Mehrdad Aguilar MD Work Phone: [facility] 02-03-2015 zoster vaccine, live Mehrdad lacey MD Work Phone: [facility] 02-02-2015 influenza, high dose seasonal, preservative-free Mehrdad Aguilar MD Work Phone: [facility] 02-02-2015 pneumococcal conjuga te vaccine, 13 aubrey Aguilar MD Work Phone: [facility] 03-24-2014 influenza, injectabl e, quadrivalent, contains preservative Mehrdad Aguilar MD Work Phone: [facility] 01-06-2013 influenza, high dose seasonal, preservative-free Mehrdad Aguilar MD Work Phone: [facility] 01-06-2011 pneumococcal polysaccharide vaccine, 23 aubrey Aguilar MD Work Phone: [facility] Payers Date Payer Category Payer Self-pay 2020 Private Health Insurance [facility] IN[employer]MNITY [id number] 2020-Present [phone] [address] [place] [address] Indemnity [id number] 2020 Private Health Insurance [id number] 2006 Medicare MEDICARE RAILROA D MEDICARE RAILROAD PB ONLY [id number] 2006-Present [phone] [address] [address] [place] [address] Medicare [id number] 2006 Medicare MEDICARE MEDICAR E A AND B [id number] 2006-Present [phone] [address] [address] [place] [address] Medicare [id number] 2006 Unknown 1959 Medicare [id number] 1959 Private Health Insurance [id number] 2.16.840.1.350266.19 1949 Unknown [id number] 2.16.840.1.546935.3.579. 2.593 1949 Unknown [id number] 2.16.840.1.081057.3.579. 2.593 1949 Unknown [id number] 2.16.840.1.018128.3.579. 2.593 1949 Unknown [id number] 2.16.840.1.346071.3.579. 2.593 1949 Unknown [id number] 2.16.840.1.851087.3.579. 2.593 1949 Unknown [id number] 2.16.840.1.939460.3.579. 2.593 1949 Unknown [id number] 2.16.840.1.238347.3.579. 2.593 1949 Unknown [id number] 2.16.840.1.627037.3.579. 2.593 1949 Unknown [id number] 2.16.840.1.214081.3.579. 2.593 1949 Unknown [id number] 2.16.840.1.429839.3.579. 2.1259 1949 Unknown [id number] 2.16840.1.533027.3.579. 2.1259 1949 Unknown [id number] 2.16.840.1.703262.3.579. 2.727 1949 Unknown [id number] 2.16.840.1.009317.3.579. 2.727 1949 Unknown [id number] 2.16.840.1.151036.3.579. 2.727 1949 Unknown [id number] 2.16.840.1.177144.3.579. 2.727 1949 Unknown [id number] 2.16.840.1.114672.3.579. 2.727 1949 Unknown [id number] 2.16.840.1.627520.3.579. 2.727 1949 Unknown [id number] 2.16.840.1.878738.3.579. 2.727 1949 Unknown [id number] 2.16.840.1.051557.3.579. 2.727 1949 Unknown [id number] 2.16.840.1.535766.3.579. 2.727 1949 Unknown [id number] 2.16.840.1.716155.3.579. 2.727 1949 Unknown [id number] 2.16.840.1.641103.3.579. 2.727 1949 Unknown [id number] 2.16.840.1.536383.3.579. 2.727 1949 Unknown [id number] 2.16.840.1.709269.3.579. 2.196 1949 Unknown [id number] 2.16.840.1.366954.3.579. 2.196 Unknown [id number] 2.16.840.1.718592.3.579. 2.531 Social History Date Type Detail Facility Start: 08-18-2020 End: 10-08-2023 Tobacco smoking status NHIS Never smoked tobacco [facility] Start: 08-18-2020 Tobacco use and exposure Smokeless tobacco non-user [facility] Start: 08-19-2020 End: 09-30-2020 Alcohol intake Ex-drinker (finding) [facility] Start: 1950 Sex Assigned At Not on file [facility] Start: 08-04-2020 End: 08-19-2020 Sex Assigned At [facility] Start: 08-04-2020 End: 08-19-2020 History of Social function [facility] National Score (1-100), lower number is lower risk Not on file [facility] Tobacco smoking status No Smokin g Status Entered [facility] Medical Equipment Procedure Code Equipment Code Equipment Original Text Equi pment Identifier Dates BD Pen Needle Na no U/F 32G X 4 MM Functional Status Date Assessment Result Facility 10-08-2023 Functional Status N/A [facility] 09-05-2023 Functional Status No [facility] 07-24-2023 Functional Status N/A [facility] 07-02-2023 Functional Status N/A [facility] 06-26-2023 Functional Status N/A [facility] 06-21-2023 Functional Status N/A [facility] Clinical Notes 08-19-2020 to 07-03-2023 Note Date & Type Note Facility 07-03-2023 Note [id number] [facility] 07-02-2023 Hospital Discharg e instructions Patient Education 07/02/2023 09:33:43 Endoscopy, Care After Procedure [facility] Endoscopy Care After Procedure Please [...] Document Re-Released: 09/16/2006 ExitCare Patient Information 2010 [employer]. 07/02/2023 09:33:36 Esophagitis Esophagitis Esophagitis is inflammation [...] Follow these instructions at home: Medicines Take ocpm-wml-rtbombw and prescription medicines only as told by [...] powder, vinegar, hot sauces, and barbecue sauce. ?Swifton fruit juices and citrus fruits, such as oranges, bentley, and limes. ?Tomato-based foods, such as red sauce, chili, salsa, and pizza with red sauce. ?Fried and fatty foods, such as donuts, malay fries, potato chips, and high-fat dressings. ?High-fat [...] provider. Document Revised: 10/03/2020 Document Reviewed: 10/03/2020 [employer] Patient Education 2022 [employer] 07/02/2023 09:33:31 Hiatal Hernia Hiatal Hernia [...] reduce GERD symptoms. Medicines. These may include: ?Rwwj-dpb-bxxxegc antacids. ?Medicines that make your stomach empty [...] may include: ?Fatty foods, like fried foods. ?Swifton fruits, like oranges or lemon. ?Other foods [...] Do not drink alcohol. General instructions Take wkyy-lrg-gvawymf and prescription medicines only as told by [...] provider. Document Revised: 05/22/2022 Document Reviewed: 05/22/2022 [employer] Patient Education 2022 [employer]. Follow Up Care 06/26/2023 13:24:26 With:Rupa CERRATO, ANTIONETTE Luna, [facility] Address: When: Unknown Comments:Call for any problems. The office will reach out in about one week from procedure date. [facility] 07-02-2023 Note Endoscopy Care After Procedure [...] Document Re-Released: 09/16/2006 ExitCare? Patient Information ?2009 [employer]. Gastroenterology Esophagitis Esophagitis is inflammation of the [...] these instructions at home: Medicines ? Take jpgz-plc-lqncbzr and prescription medicines only as told by your health care provider. ? Do not take aspirin, ibuprofen, or other NSAIDs unless your health care provider told you to do so. ? If you have trouble taking pills: ? Use a pill splitter to decrease the size of the pi (more content not included)... [facility] 06-18-2023 Note Echocardiology Procedure Exam Date/Time Accession # Ordering Echo Transthoracic 06/18/2023 08:41 EDT [id number] CARMEN CONLEY MD Complete CPT code 02344 [id number] Reason for Exam (Echo Transthoracic Complete) R07.9 Chest pain, unspecified Report [facility] [address] [place] [address] Adult Echocardiogram Report Name: IVELISSE GEE Study Date: 06/18/2023 06:57 AM BP: 117/66 mmHg Patient Location: HR: 71 : 1950 Gender: Female Height: 60 in Age: 72 yrs Ethnicity: [facility] Weight: 155 lb Reason For Study: R07.9 Chest pain, unspecified BSA: 1.7 m2 History: HTN, DM, I have a leaky valve Ordering Physician: CARMEN CONLEY Referring Physician: CARMEN CONLEY Performed By: Katya Ho, [facility] Interpretation Summary No comparison study is [...] Signed by: Lucho GOINS MD Transcribed by: [facility] Technologist: LE [facility] 05-14-2023 Evaluation note Encounter Date Diagnosis Assessment Notes May, Type 2 diabetes mellitus with hyperglycemia (ICD-10 - E11.65) [employer] Other 12-27-2023 Evaluation note* Encounter Date Diagnosis Assessment Notes Treatment Notes Treatment Clinical Notes Mar, Type 2 diabetes mellitus with hyperglycemia (ICD-10 - E11.65) [employer] Other 12-26-2023 Evaluation note* Encounter Date Diagnosis Assessment Notes Treatment Notes Treatment Clinical Notes Mar, Type 2 diabetes mellitus with hyperglycemia (ICD-10 - E11.65) [employer] Other 12-14-2023 Evaluation note* Encounter Date Diagnosis Assessment Notes Treatment Notes Treatment Clinical Notes Mar, Panic attack (ICD-10 - F41.0) [employer] Other 12-14-2023 Evaluation note* Encounter Date Diagnosis [...] to continue with above medication as directed. [employer] Other 10-19-2023 Evaluation note* Encounter Date Diagnosis [...] normal chest x-ray on January 17 at [facility]. [employer] Other 09-22-2023 Evaluation note* Encounter Date Diagnosis [...] patient is sent home pleased, without concerns. [employer] Other 06-29-2023 Evaluation note* Encounter Date Diagnosis Assessment Notes Treatment Notes Treatment Clinical Notes Sep, Type 2 diabetes mellitus with hyperglycemia (ICD-10 - E11.65) [employer] Other 05-03-2023 Evaluation note* Encounter Date Diagnosis Assessment Notes Treatment Notes Treatment Clinical Notes August, RLQ abdominal pain (ICD-10 - R10.31) [employer] Other 05-02-2023 Evaluation note* Encounter Date Diagnosis Assessment Notes Treatment Notes Treatment Clinical Notes August, RLQ abdominal pain (ICD-10 - R10.31) Acute pain - assess with labs, CT. Discussed differential with pt. [employer] Other 03-15-2023 Evaluation note* Encounter Date Diagnosis [...] as her information was sent last week. [employer] Other 03-07-2023 Evaluation note* Encounter Date Diagnosis Assessment Notes Treatment Notes Treatment Clinical Notes Jun, Dysuria (ICD-10 - R30.0) Jun, Type 2 diabetes mellitus with hyperglycemia (ICD-10 - E11.65) Jun, History of sepsis (ICD-10 - Z86.19) Referral placed to [facility] [employer] as was suggested by Dr. William. [employer] Other 03-07-2023 Evaluation note* Encounter Date Diagnosis Assessment Notes Treatment Notes Treatment Clinical Notes Jun, Dysuria (ICD-10 - R30.0) Jun, Type 2 diabetes mellitus with hyperglycemia (ICD-10 - E11.65) Stop Januvia. Start ozempic for improved glucose control. Jun, History of sepsis (ICD-10 - Z86.19) Referral placed to [employer] as was suggested by Dr. William. [employer] Other 02-02-2023 Evaluation note* Encounter Date Diagnosis Assessment Notes Treatment Notes Treatment Clinical Notes May, EDU (generalized anxiety disorder) (ICD-10 - F41.1) [employer] Other 02-02-2023 Evaluation note* Encounter Date Diagnosis Assessment Notes Treatment Notes Treatment Clinical Notes May, Panic attack (ICD-10 - F41.0) Discussed stress, medication and health issues. Will refill med started by ER and monitor symptoms. May, Type 2 diabetes mellitus with hyperglycemia (ICD-10 - E11.65) add medication to improve glucose. Pt agrees to consider further referral if needed. [employer] Other 01-13-2023 Evaluation note* Encounter Date Diagnosis [...] antibiotic tomorrow, will check that it cleared. [employer] Other 01-09-2023 Evaluation note* Encounter Date Diagnosis Assessment Notes Treatment Notes Treatment Clinical Notes Apr, Sepsis due to Staphylococcus (ICD-10 - A41.2) Ivelisse feels that the oral antibiotics are not strong enough. Unsure of root cause of staph sepsis/bacteremia . Admitted to [place] for <24h. Requests referral to ID. Pt concerned that she has immune deficiency or Hep C that she has been septic in the past. Apr, Type 2 diabetes mellitus with hyperglycemia (ICD-10 - E11.65) will continue to hold metformin due to renal labs. Apr, Elevated liver enzymes (ICD-10 - R74.8) Has been to GI in the past [facility] Other 01-05-2023 NotePROGRESS NOTE NOTE DATE: 04/12/2022 [...] prophylaxis: Lovenox. DISPOSITION: Home when medically stable.[facility] Note PROCEDURE: XR WRIST RT MIN 3 V, XR FOREARM RT 2V COMPARISON: HISTORY: Pain of right wrist FINDINGS: BONES:No acute fracture or dislocation of the forearm or wrist. I'll degenerative changes with joint space narrowing. SOFT TISSUES:Negative. No visible soft tissue swelling. EFFUSION:None visible. OTHER: Negative. IMPRESSION: Mild degenerative changes No acute abnormality Electronically authenticated by: HAYLEY PARHAM Date: 2022-01-07 11:23[facility]10-02-2022 NotePROCEDURE: XR WRIST RT MIN 3 V, XR FOREARM RT 2V COMPARISON: HISTORY: Pain of right wrist FINDINGS: BONES:No acute fracture or dislocation of the forearm or wrist. I'll degenerative changes with joint space narrowing. SOFT TISSUES:Negative. No visible soft tissue swelling. EFFUSION:None visible. OTHER: Negative. IMPRESSION: Mild degenerative changes No acute abnormality Electronically authenticated by: HAYLEY PARHAM Date: 2022-01-07 11:23[facility]05-06-2022 Miscellaneous Notes* Telephone Encounter - Marta Valero - 08/11/2021 12:13 PM EDT Called patient to reschedule an appointment per patient she no longer see Dr. Aguilar and that she had cancelled appointments last year confirmed with patient that she would like to cancel and did notneed to reschedule. [facility] NoteHNO ID: [id number] Author: Mehrdad Aguilar MD Service: ? Author Type: Physician Type: Progress Notes Filed: 10/02/2020 5:36 PM Note Text: PATIENT NAME: Ivelisse Gee DATE: 09/30/2020 PRIMARY CARE PHYSICIAN: Carmen Conley MD OTHER PHYSICIANS: Dr. Wahl ([place], [place]), Dr. Magdaleno Castillo ([facility]) Portions of this encounter note have [...] extremities and face. Negative (more content not included)...[facility]06-16-2021 NoteHNO ID: [id number] Author: RT Nancie(R) Service: ? Author Type: Systems Security Analyst Type: Progress Notes Filed: 09/21/2020 11:30 AM [...] Gee DATE: September 21, 2020 TIME: 11:28 [facility]06-16-2021 NoteHNO ID: [id number] Author: RT Nancie(Bushra) Service: ? Author Type: Systems Security Analyst Type: Progress Notes Filed: 09/21/2020 11:26 AM [...] Gee DATE: September 21, 2020 TIME: 11:18 [facility]05-25-2021 NoteHNO ID: [id number] Author: RT Akhil(Bushra) Service: ? Author Type: Systems Security Analyst Type: Progress Notes Filed: 08/30/2020 11:31 AM [...] BY: RT Akhil(R) August 30, 2020 11:30 [facility]05-14-2021 NoteHNO ID: [id number] Author: Mehrdad Aguilar MD Service: ? Author Type: Physician Type: Progress Notes Filed: 08/20/2020 1:40 PM Note Text: PATIENT NAME: Ivelisse Gee DATE: 08/19/2020 PRIMARY CARE PHYSICIAN: Carmen Conley MD OTHER PHYSICIANS: Dr. Wahl ((PCP [place], [place]) HPI: This is a 70 year [...] CBC. Since the patient's hospitalization she started ggzr-vzv-xkjfhpw supplements including multivitamin. She has had no [...] EXAM: Well developed/well n (more content not included)...[facility] Future App[facility]ments Appointment Date:06/21/2023 01:30:00 PM Scheduled Provider:Deonte Peraza MD [facility] [place] App[facility] Type:Cardiology New Patient (FT) Appointment Date:06/26/2023 12:30:00 PM Scheduled Provider:Shaun Goode MD Location:[facility] Appointment Type:[facility] Future Appointments Appointment Date:06/26/2023 12:30:00 PM Scheduled Provider:Shaun Goode MD Location:[facility] Appointment Type:[facility] New Patient Appointment Date:08/22/2023 02:00:00 PM Scheduled Provider:Deonte Peraza MD [facility] Type:Cardiology Follow Up (FT) Future Scheduled Tests Radiology* NM Myocardial Spect Rest/Stress 1 Day 06/21/23 [facility] Future Appointments Appointment Date:07/02/2023 09:45:00 AM Scheduled Provider: Location:[facility] Appointment Type:Surgery FT Appointment Date:08/22/2023 02:00:00 PM Scheduled Provider:Deonte Peraza MD [facility] Type:Cardiology Follow Up (FT) Future Scheduled Tests Radiology* NM Myocardial Spect Rest/Stress 1 Day 06/21/23 [facility] Evaluation + Plan note Future Appointments Appointment Date:07/02/2023 09:45:00 AM Scheduled Provider: Location:[facility] Appointment Type:Surgery FT Appointment Date:08/22/2023 02:00:00 PM Scheduled Provider:Deonte Peraza MD [facility] Type:Cardiology Follow Up (FT) Diagnostic Tests Pending * Alpha Fetoprotein Tumor Marker 06/26/23 Future Scheduled Tests Radiology* NM Myocardial Spect Rest/Stress 1 Day 06/21/23 [facility] Future Appointments Appointment Date:08/22/2023 02:00:00 PM Scheduled Provider:Deonte Peraza MD [facility] Type:Cardiology Follow Up (FT) Future Scheduled Tests Radiology* NM Myocardial Spect Rest/Stress 1 Day 06/21/23 [facility] Future Appointments Appointment Date:08/05/2023 08:00:00 AM Scheduled Provider: [facility] App[facility] Type:NM Myocard Spect Multi Rest/Stress-Res Appointment Date:08/05/2023 09:00:00 AM Scheduled Provider: [facility] Appoint[facility] Type:NM Myocard Spect Multi Rest/Stress - R Appointment Date:08/05/2023 09:30:00 AM Scheduled Provider: [facility] Appointment Type:NM Myocard Spect Multi Rest/Stress-Str Appointment Date:08/05/2023 10:30:00 AM Scheduled Provider: [facility] Appointment Type:NM Myocar Spect Multi Rest/Stress - St Appointment Date:08/05/2023 11:00:00 AM Scheduled Provider: [facility] Type:CV Holter/Event (FT) Appointment Date:08/06/2023 10:30:00 AM Scheduled Provider: [facility] Appoint[facility] Type:US Abdominal/Pelvis (FT) Appointment Date:08/22/2023 02:00:00 PM Scheduled Provider:Deonte Peraza MD [facility] Type:Cardiology Follow Up (FT) Appointment Date:01/08/2024 12:15:00 PM Scheduled Provider:Shaun Goode MD Location:[facility] Appointment Type:[facility] Follow Up Future Scheduled Tests Laboratory* Alpha Fetoprotein Tumor Marker 07/24/23 * Alpha Fetoprotein Tumor Marker 01/23/24 * CBC w/ Auto Diff 07/24/23 * CBC w/ Auto Diff 01/23/24 * Comprehensive Metabolic Panel 07/24/23 * Comprehensive Metabolic Panel 01/23/24 * PT 07/24/23 * PT 01/23/24 Radiology* NM Myocardial Spect Rest/Stress 1 Day 08/05/23 * US Liver 08/06/23 [facility] Evaluation + Plan note Future Appointments Appointment Date:08/15/2023 09:00:00 AM Scheduled Provider: [facility] Appoint[facility] Type:NM Myocard Spect Multi Rest/Stress-Res Appointment Date:08/15/2023 10:00:00 AM Scheduled Provider: [facility] Appointment Type:NM Myocard Spect Multi Rest/Stress - R Appointment Date:08/15/2023 10:30:00 AM Scheduled Provider: [facility] Appointment Type:NM Myocard Spect Multi Rest/Stress-Str Appointment Date:08/15/2023 11:30:00 AM Scheduled Provider: [facility] Appointment Type:NM Myocar Spect Multi Rest/Stress - St Appointment Date:08/27/2023 01:00:00 PM Scheduled Provider:Dontae Hernández PA-C [facility] Type:Cardiology Follow Up (FT) Appointment Date:01/08/2024 12:15:00 PM Scheduled Provider:Shaun Goode MD Location:[facility] Appointment Type:BAD Follow Up Future Scheduled Tests Laboratory* Alpha Fetoprotein Tumor Marker 07/24/23 * Alpha Fetoprotein Tumor Marker 01/23/24 * CBC w/ Auto Diff 07/24/23 * CBC w/ Auto Diff 01/23/24 * Comprehensive Metabolic Panel 07/24/23 * Comprehensive Metabolic Panel 01/23/24 * PT 07/24/23 * PT 01/23/24 Radiology* NM Myocardial Spect Rest/Stress 1 Day 08/15/23 * US Liver 08/16/23 [facility] Future Appointments Appointment Date:08/27/2023 01:00:00 PM Scheduled Provider:Dontae Hernández PA-C Location[facility] Appointment Type:Cardiology Follow Up (FT) Appointment Date:01/08/2024 12:15:00 PM Scheduled Provider:Shaun Goode MD Location:[facility] Appointment Type:BAD Follow Up Future Scheduled Tests Laboratory* Alpha Fetoprotein Tumor Marker 07/24/23 * Alpha Fetoprotein Tumor Marker 01/23/24 * CBC w/ Auto Diff 07/24/23 * CBC w/ Auto Diff 01/23/24 * Comprehensive Metabolic Panel 07/24/23 * Comprehensive Metabolic Panel 01/23/24 * PT 07/24/23 * PT 01/23/24 Radiology* US Liver 08/16/23 [facility] Future Appointments Appointment Date:10/08/2023 01:45:00 PM Scheduled Provider:Dontae Hernández PA-C Location[facility] Appointment Type:Cardiology Follow Up (FT) Appointment Date:01/08/2024 12:15:00 PM Scheduled Provider:Shaun Goode MD Location:[facility] Appointment Type:[facility] Follow Up Future Scheduled Tests Laboratory* Alpha Fetoprotein Tumor Marker 07/24/23 * Alpha Fetoprotein Tumor Marker 01/23/24 * CBC w/ Auto Diff 07/24/23 * CBC w/ Auto Diff 01/23/24 * Comprehensive Metabolic Panel 07/24/23 * Comprehensive Metabolic Panel 01/23/24 * PT 07/24/23 * PT 01/23/24 Radiology* NM Myocardial Spect Rest/Stress 1 Day 09/06/23 * US Liver 08/16/23 [facility] Future Appointments Appointment Date:10/08/2023 01:45:00 PM Scheduled Provider:Dontae Hernández PA-C [facility] Type:Cardiology Follow Up (FT) Appointment Date:01/08/2024 12:15:00 PM Scheduled Provider:Shaun Goode MD Location:[facility] Appointment Type:[facility] Follow Up Future Scheduled Tests Laboratory* Alpha Fetoprotein Tumor Marker 07/24/23 * Alpha Fetoprotein Tumor Marker 01/23/24 * CBC w/ Auto Diff 07/24/23 * CBC w/ Auto Diff 01/23/24 * Comprehensive Metabolic Panel 07/24/23 * Comprehensive Metabolic Panel 01/23/24 * PT 07/24/23 * PT 01/23/24 Radiology* US Liver 08/16/23 [facility] Future Appointments Appointment Date:01/08/2024 12:15:00 PM Scheduled Provider:Shaun Goode MD Location:[facility] Appointment Type:[facility] Follow Up Appointment Date:04/14/2024 01:00:00 PM Scheduled Provider:Dontae Hernández PA-C [facility] Type:Cardiology Follow Up (FT) Future Scheduled Tests Laboratory* Alpha Fetoprotein Tumor Marker 07/24/23 * Alpha Fetoprotein Tumor Marker 01/23/24 * CBC w/ Auto Diff 07/24/23 * CBC w/ Auto Diff 01/23/24 * Comprehensive Metabolic Panel 07/24/23 * Comprehensive Metabolic Panel 01/23/24 * PT 07/24/23 * PT 01/23/24 Radiology* US Liver 08/16/23 [facility] Other Evaluation note* Diagnosis Thrombocytopenia (HCC) Thrombocytopenia, unspecified 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 documented in this encounter [facility] general Narrative - Reported* Type Description Date [...] History septic shock Hospitalization History Sepsis 07/07/2020 [employer] Other history general Narrative - Reported* Type [...] History septic shock Hospitalization History Sepsis 07/07/2020 [facility] Other history general Narrative - Reported* Type [...] Sepsis 07/07/2020 Hospitalization History Covid positive 01/17/23 [facility] Other Hospital course Narrative No data available for this section [facility] No data available for this section [facility] Hospital[facility] note No data available for this section [facility] Summary Purpose Family History No Family [...] Callahan - will scan in reports from [facility] last week Diagnosis 1 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 [place],[address] Referred Provider Specialty Infectious D isease Referral Priority Routine General Notes Itzel Parekh 03:10:38 PM >received today, labs, and notes attached, locked and faxed P2P Itzel Parekh 04/18/2022 10:54:24 AM >per Dr. Callahan pt does not need to be seen to treat Reason 06/11/22 Labs pend ing, has fibro. strong family history of autoimmune issues. Diagnosis 1 Myalgia (M79.10) Referral Organization [facility] [employer] Referring Provider First Name Carmen Referring Provider Last Name Yael Referring Provider Specialty Family Medi cine Referred Organization [facility] Referred Provider Daniel Gomez Referred Address [address] [place],[address] Referred Provider Specialty Rheumatology Referral Priority Routine Referral Appointment Date 2022-06-11 General Notes Itzel Parekh 03:45:56 PM >received today, labs pending. ins card attached, notes locked and referral faxed Itzel Parekh 04/27/2022 10:22:51 AM >faxed first attempt letter Itzel Parekh 04/30/2022 02:17:43 PM >received fax with appt date and time Reason 06/28/22 Pt wants to see the [employer] in [facility] - phone is [phone]. Please send same info that was sent to the referral for Dr. Gomez. Thanks Diagnosis 1 Dysuria (R30.0) [facility]erring Provider First Name Carmen Referring Provider Last Name Yael Referring Provider [facility] [employer] Referred Organization Unknown Facility Referred Provider Specialty Immunology Referral Priority Routine Referral Appointment Date 2022-06-28 General Notes Itzel Parekh 11:00:51 AM >received today, attachments made, notes locked, referral faxed Itzel Parekh 06/20/2022 01:01:04 PM >faxed first attempt letter Itzel Parekh 06/21/2022 08:59:47 AM >RECEIVED FAX WITH APPT DATE AND TIME Clinical Notes p: [phone] f: [id number] Reason 06/28/22 Pt wants to see the [employer] in [facility] - phone is [phone]. Please send same info that was sent to the referral for Dr. Gomez. Thanks Diagnosis 1 Dysuria (R30.0) Referral Organization [facility] Referring Provider First Name Carmen Referring Provider Last Name Yael Referring Provider Specialty [facility] [employer] Referred Organization Unknown Facility Referred Provider Specialty [...] for review. Closing referral Clinical Notes p: [phone] f: [id number] Additional Source Comments INFORMATION SOURCE (unrecogn ized section and content) DATE CREATED AUTHOR 02/05/2021 [facility] DATE CREATED AUTHOR AUTHOR'S ORGANIZ ATION 08/12/2021 [facility] DATE CREATED AUTHOR AUTHOR'S ORGANIZ ATION 07/28/2022 [facility] DATE CREATED AUTHOR AUTHOR'S ORGANIZ ATION 08/16/2022 [facility] DATE CREATED AUTHOR AUTHOR'S ORGANIZ ATION 04/17/2023 [facility] EPIC DATE CREATED AUTHOR AUTHOR'S ORGANIZ ATION 10/09/2023 [facility] DATE CREATED AUTHOR AUTHOR'S ORGANIZ ATION 12/07/2023 [facility] Source Comments (unrecognize d section and content) In the event this informatio n is protected by the Federal Confidentiality of Alcohol and Drug Abuse Patient Records regulations: The Federal rules restrict any use of the information to criminally investigate or prosecute any alcohol or drug abuse patient.[facility] the event this information is protected by the Federal Confidentiality of Alcohol and Drug Abuse Patient Records regulations: The Federal rules restrict any use of the information to criminally investigate or prosecute any alcohol or drug abuse patient.[facility] Reason for Visit (unrecogniz ed section and content) Reason Comments Appointment Care Teams (unrecognized sec tion and content) [employer] Relationship Specialty Start Date End Date Carmen Conley MD [address] [place] [address] PCP - General Family Practice 08/04/20 [employer] Relationship Specialty Start Date End Date Carmen Conley MD [address] [place] [address] PCP - General Family Medicine [...] BE BASED ON THE PRIMARY CLINICAL RECORDS. [facility] AgentPiggy [facility]. provides no warranty or guarantee of the accuracy or completeness of information in this document.
[2023-12-17 13:07] LABS: Estimated Average Glucose 157 mg/dL; Glycohemoglobin A1C 7.1 % (4.5-6.2)
[2023-12-17 13:29] LABS: Basophils Percent Auto 0.2 % (0.2-2.0); Hematocrit 40.8 % (36.0-48.0); Hemoglobin 14.1 g/dL (12.0-16.0); Immature Granulocytes Abs Auto 0.05 10^3/uL (0.00-0.03); Immature Granulocytes Pct Auto 0.4 % (0.0-0.5); Lymphocytes Absolute Auto 2.8 10^3/uL (1.2-3.8); Lymphocytes Percent Auto 22.3 % (20.5-60.0); Mean Corpuscular HGB Conc 34.6 g/dL (29.9-35.2); Mean Corpuscular Hemoglobin 31.2 pg (26.7-34.0); Mean Corpuscular Volume 90.3 fL (81.0-99.0); Mean Platelet Volume 9.7 fL (9.5-13.5); Monocytes Absolute Auto 0.4 10^3/uL (0.3-0.8); Monocytes Percent Auto 3.5 % (1.7-12.0); Neutrophils Absolute Auto 9.3 10^3/uL (1.4-6.5); Neutrophils Percent Auto 73.6 % (43.0-75.0); Platelet Count 218 10^3/uL (150-450); Red Blood Count 4.52 10^6/uL (4.20-5.40); Red Cell Distribution Width 12.1 % (11.0-15.0); White Blood Count 12.7 10^3/uL (4.0-11.0)
[2023-12-17 13:34] LABS: Free T4 1.15 ng/dL (0.76-1.46)
[2023-12-17 13:38] LABS: Anion Gap 10.6; Calcium 9.4 mg/dL (8.5-10.1); Carbon Dioxide 27.3 mmol/L (21.0-32.0); Chloride 100 mmol/L (98-107); Estimated GFR (African America >60 (>=60); Estimated GFR (Non-African Ame 59 (>=60); Glucose 154 mg/dL (74-106); Potassium 3.9 mmol/L (3.5-5.1); Sodium 134 mmol/L (136-145)
[2023-12-18 13:08] LABS: ANA Direct Negative (Negative)
== END 2023-12-17 12:18 | disposition home or self-care (01) ==
LOC: LAB 12:18
PROVIDERS: PCP Family Medicine; Visit Provider Family Medicine
DX: R53.83 Other fatigue (principal); I10 Essential (primary) hypertension; E11.65 Type 2 diabetes mellitus with hyperglycemia
CPT/HCPCS: 36415; 70220; 80048; 83036; 84439; 84443; 85025; 86038; 87086; 87150

== ENCOUNTER 2023-12-19 19:04 | Emergency (ER) | payer MEDICARE, OTHER, SELFPAY ==
[2023-12-19 19:08] VITALS: BP 167/97; PULSE 104; TEMP 36.8; O2SAT 98; BMI 28.9
--- OUTSIDE RECORDS SUMMARY | 2023-12-19 19:12 | XMS_ITS | CCD ---
Author Organization [facility] Care Team Providers Care Inventory Representative Name Role Phone Carmen Conley MD [...] CONLEY, DR CARMEN Riggins Primary Care Unavailable GUION, DR HAYLEY Martinez Consulting Unavailable CONLEY, DR [...] Admitting Unavailable Lucho GOINS Consulting Unavailable Lucho GOISN Consulting Unavailable Deonte Peraza Referring Unavaila Deonte [...] Translations: [sulfa drugs] Drug Allergy Weal (disorder) [facility] (2 sources) Latex Drug Allergy 09-07-19 17 Unknown [facility] (2 sources) Sulfonamides (Antibiotic) Drug Allergy 09-06-19 17 Anaphylaxis [facility] (20 sources) Latex Propensity to adverse reactions Unknown [facility] Other (20 sources) Sulfonamides (Antibiotic) Propensity to adverse reactions Unknown [facility] Other (1 source) Latex Drug allergy (disorder) 10-15-19 16 [facility] (1 source) Sulfonamides (Antibiotic) Drug allergy (disorder) 08-19-19 13 [facility] (13 sources) sulfADIAZINE Drug Allergy 09-12-19 18 Comment:LUNA [facility] Other (12 sources) Adhesive bandage; Translations: [Adhesive Bandage] Drug allergy Eruption of skin (disorder) [facility] (11 sources) Sulfonamides (Antibiotic); Translations: [sulfa drugs] Drug allergy Weal (disorder) [facility] Medications Current Medications Medication Drug Class(es) Dates Sig (Normalized) Sig (Original) [id number] 60 actuat albuterol 0.09 mg/actuat metered dose [...] Daily, # 30 cap(s), Refills(s) 5, Pharmacy: [facility]/pharmacy #[id number], 155, cm, 06/26/23 12:22:00 EDT, Height/Length [...] Daily, # 30 tab(s), Refills(s) 2, Pharmacy: [facility]/pharmacy #[id number], 155, cm, 09/05/23 10:04:00 EDT, Height/Length [...] Daily, # 90 tab(s), Refills(s) 3, Pharmacy: [facility]/pharmacy #[id number], 153, cm, 07/24/23 13:54:00 EDT, Height/Length [...] sources) Long-term current use of insulin; Translations: [van 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 Substitutions may have occurred due to the [...] Ozempic, Sub (more content not included)... [facility] Comment on above: Result Comment: Elec tronically Signed By: Edgar BOUDREAUX, Dontae Wolfe\.elyse\Date and Time Signed: 10/08/23 13:53 EDT NM Myocardial Spect Rest/Str ess 1 Dayon 10-02-2023 NM Myocardial Spect Rest/Stress 1 Day Exam Date/Time: 10/01/2023 14:13 EDT Reason for Exam: ventricular tachycardia;Other (please specify) Report [facility] [address] [place] [address] Nuclear Stress Report Name: IVELISSE GEE Study Date: 10/01/2023 12:32 PM Patient Location: [facility] : 1950 (M/d/yyyy) Gender: Female Age: 73 yrs Ethnicity: T Reason For Study: Other (please specify) Ordering Physician: Dontae Hernández Referring Physician: Dontae Hernández Protocol 96814 Pharmacologic Lexiscan stress with Isotope. Study Protocol: [...] Signed by: Deonte Peraza MD Transcribed by: [facility] Technologist: ISAAC [facility] Consent for Treatmenton 09-07 Consent for Treatment [id number]#1.00TIF F [facility] Monitor Recordon 10-01-2023 Monitor Record [id number]#1.00TIF F [facility] Event Monitoron 09-30-2023 Event Monitor EVENT [...] BY: Ciaran Villatoro MD ca Dictated: 09/28/2023 [id number] Transcribed: 09/30/2023 [facility] Comment on above: Result Comment: Elec tronically Signed By: Shauna CERRATO, Ciaran Mccabe\.br\Date and Time Signed: 09/30/23 13:51 EDT Consent for Treatmenton 08-08 Consent for Treatment [id number]#1.00TIF F [facility] Heart and Vascular Office/Cl inic Noteon [...] Daily, # 30 tab(s), Refills(s) 2, Pharmacy: [facility]/pharmacy #[id number], 155, cm, 09/05/23 10:04:00 EDT, Height/Length [...] with voice recognition artificial intelligence software, specifically [employer], [employer] and or [employer] (PICA). Substitutions may have occurred due to the [...] Father. Immunizations [facility] (more content not included)... [facility] Comment on above: Result Comment: Elec tronically Signed By: Edgar BOUDREAUX, Dontae Wolfe\harvinder\Date and Time Signed: 09/05/23 12:53 EDT Physician Orderon 09-05-2023 Physician Order [id number]#1.00T IFF [facility] Monitor Recordon 09-03-2023 Monitor Record [id number]#1.00TI FF [facility] Consent for Treatmenton 07-08 Consent for Treatment [id number]#1.00TIF F [facility] Ambulatory Visit Summaryon 0 07-24-2023 Ambulatory [...] Cardiology Clinic Saturday 12:15 PM EDT With: Rpua CERRATO, Shaun Xiao Where: [facility] Gastroenterology Office/Clin ic Noteon 07-24-2023 Gastroenterology [...] 1-2 bowel movements every day by using nmmz-jko-yciktee laxatives such as senna Advised to massage [...] Daily, # 30 cap(s), Refills(s) 5, Pharmacy: [facility]/pharmacy #[id number], 155, cm, 06/26/23 12:22:00 EDT, Height/Length Dosing, 72.1, kg, 06/26/23 12:22:00 EDT, Weight Dosing pantoprazole, 40 mg = 1 tab(s), Oral, Daily, # 90 tab(s), Refills(s) 3, Pharmacy: [facility]/pharmacy #[id number], 153, cm, 07/24/23 13:54:00 EDT, Height/Length [...] influenza virus vaccine, inactivated 04/09/2016 Recorded [facility] Comment on above: Result Comment: Elec tronically Signed By: Rupa CERRATO, Shaun Resendiz.br\Date and Time Signed: 07/24/23 14:16 EDT IntraOperative Documentson 0 07-04-2023 IntraOperative Documents [id number]#1.00TI FF [facility] Consenton 07-03-2023 Consent [id number][address] [facility] Discharge Instructionson Discharge Instructions [id number]#1.00TI [facility] Main OR Intraoperative Recor don 07-03-2023 Main OR Intraoperative Record IntraOp Document Type FT Summary Primary Physician: Shaun Goode MD Finalized Date/Time: 07/03/23 11:58:54 Pt. Name: MARLEN IVELISSE Aiden MannB./Sex: 1950 Female Med Rec #: [id number] Physician: Shaun Goode MD Financial #: [id number] Pt. Type: O Room/Bed: / Admit/Disch: 07/02/23 [...] Alicia MARC, Aba Mcgill CRNA Role Performed Rubber Process Hand - Primary SERVICE DESK MANAGER Time In 07/02/23 09:08:00 07/02/23 09:08:00 Time [...] and tissue Entry 1 Skin Integrity Intact, [place], Warm, and Skin Abnormality No Dry Outcomes [...] Yes Left (more content not included)... [facility] Postoperative Documentson Postoperative Documents [id number]#1.00TI FF [facility] Progress Note-Physicianon Progress Note-Physician Patient: IVELISSE [...] selected or recorded. Histories Procedure history: Bladder ([id number]). Comments: 06/26/2023 12:18 EDT - Claritza Cuencaney 15 years ago Gallbladder (15262348). Hysterectomy (207326165). Arm (9176321571). Hand (338228715). Social History Social & Psychosocial Habits Tobacco 06/26/2023 Risk Assessment: Denies Tobacco Use 06/26/2023 Tobacco Use: Never (less than 100 in l . Physical Examination Airway: Mallampati classification: II (soft palate, fauces, uvula visible). Respiratory: adequate air exchange. Cardiovascular: Regular rhythm. Plan [place] [employer] Anesthesiologists (ASA) physical status classification: Class II. Anesthetic Preoperative Plan: Anesthesia General. [facility] Comment on above: Result Comment: Elec tronically Signed By: Brant Friedman Jr, DO\.br\Date and Time Signed: 07/03/23 15:21 EDT Progress Note-Physician Patient: IVELISSE GEE Age: 72 years Sex: Female : 1950 Associated Diagnoses: None Author: Brant Friedman Jr, DO Postoperative Information Postoperative disposition: Postoperative disposition: To PACU. Optimetrix number: Optimetrix number [id number]. Anesthetic utilized: General. Health Status Allergies: Allergic [...] when meets criteria ( To home ). [facility] Comment on above: Result Comment: Elec tronically Signed By: Brant Friedman Jr, DO\.br\Date and Time Signed: 07/03/23 15:20 EDT Consent for Treatmenton 06-07 Consent for Treatment [id number]#1.00TIF F [facility] Discharge Instructionson Discharge Instructions IVELISSE GEE [...] Doctor Event Name Event Result [facility] Previously Scheduled Follow-Up Appointments August. 2023 2:00 PM EDT With: Karmen CERRATO, Deonte Roth Where: [facility] New Follow Up Appointments after Discharge Follow Up with Rupa CERRATO, ANTIONETTE Luna, [facility] When: Comments: Call for any problems. The [...] Document Re-Released: 09/16/2006 ExitCare? Patient Information ?2009 [employer]. Esophagitis Esophagitis is inflammation of the esophagus. [...] to the (more content not included)... [facility] Comment on above: Result Comment: Elec [...] Daily, # 30 cap(s), Refills(s) 5, Pharmacy: [facility]/pharmacy #[id number], 155, cm, 06/26/23 12:22:00 EDT, Height/Length [...] status post biopsies Images Procedure images: Rechd_video_ [id number].jpg Rec_hd_video_ [id number].jpg Rec_hd_video_ [id number].jpg Rec_hd_video_ [id number].jpg Rec_hd_video_ [id number].jpg Rec_hd_video_ [id number].jpg . Post-Procedure Complications: none. Estimated blood loss: none. Specimens: sent to pathology. Devices/ implants: none left in place. Impression and Plan EGD: Diagnosis: Esophagitis, reflux (ZWK12-HW K21.00, Working, Medical). Course: Progressing as expected. Education and Follow-up: Counseled: Family. Notes: Start Protonix 40 mg once daily Might benefit from Carafate in the future. [facility] Comment on above: Other Comment: Kathy hernandez Attachment - attachment storage system not supported [id number] Can be viewed in source system Missing Attachment - attachment storage system not supported [id number] Can be viewed in source system Missing Attachment - attachment storage system not supported [id number] Can be viewed in source system Missing Attachment - attachment storage system not supported [id number] Can be viewed in source system Missing Attachment - attachment storage system not supported [id number] Can be viewed in source system Missing Attachment - attachment storage system not supported [id number] Can be viewed in source system Main OR PACU I Recordon 06-07 Main OR PACU I Record PACU Phase I Docum ent Type FT Summary Primary Physician: Shaun Goode MD Finalized Date/Time: 07/02/23 10:08:53 Pt. Name: MARLEN IVELISSE Davidson./Sex: 1950 Female Med Rec #: [id number] Physician: Shaun Goode MD Financial #: [id number] Pt. Type: O Room/Bed: / Admit/Disch: 07/02/23 [...] By: Elma Vanessa I 07/02/23 10:08 [facility] Main OR Preoperative Recordo n 07-02-2023 Main OR Preoperative Record Holding Area Document Type FT Summary Primary Physician: Shaun Goode MD Finalized Date/Time: 07/02/23 08:43:45 Pt. Name: IVELISSE GEE/Sex: 1950 Female Med Rec #: [id number] Physician: Shaun Goode MD Financial #: [id number] Pt. Type: O Room/Bed: / Admit/Disch: 07/02/23 [...] By: Alex Calhoun RN 07/02/23 08:43 [facility] Monitor Recordon 07-02-2023 Monitor Record [id number]#1.00TI FF [facility] Monitor Record [id number]#1.00TI FF [facility] AFPon 06-27-2023 AFP.tumor marker [Mass/Vol] 3.5 ng/mL Invalid Interpretation Code 0.0-9.2 [facility] Comment on above: Result Comment: [employer] Electrochemiluminescence Immunoassay (ECLIA) Values obtained with different assay methods or kits cannot be used interchangeably. Results cannot be interpreted as absolute evidence of the presence or absence of malignant disease. This test is not interpretable in females. Performed at: [address] [id number] PhD Isidoro Pak Performed By: #### 2 [id number] ####Az[facility] [address] [place] [address] Consent for Procedure/Surger yon 06-27-2023 Consent for Procedure/Surgery [id number]#1.00TIF F Normal [facility] Ambulatory Visit Summaryon 0 06-26-2023 Ambulatory [...] you for choosing us for your care. [facility] Consent for Treatmenton 06-07 Consent for Treatment [id number]#1.00TIF F [facility] Gastroenterology Office/Clin ic Noteon 06-26-2023 Gastroenterology [...] in the epigastric area and GERd s.p maanda 10 yea a ago lots of AI [...] 1-2 bowel movements every day by using flry-dhq-xxnfooz laxatives such as senna Advised to massage [...] influenza virus vaccine, inactivated 04/09/2016 Recorded [facility] Comment on above: Result Comment: Elec tronically Signed By: Rupa CERRATO, Shaun Resendiz.elyse\Date and Time Signed: 06/26/23 13:09 EDT Physician Orderon 06-24-2023 Physician Order [id number]#1.00TIFF [facility] Heart and Vascular Office/Cl inic Noteon [...] appointment on 06/26/2023. She went back to [facility], although it made her feel unwell. [...] with voice recognition artificial intelligence software, specifically [employer], [employer] and or [employer] (PICA). Substitutions may have occurred due to the inherent limitations of voice recognition and artificial intelligence software. ATTESTATION: Documentation services were performed after patient or guardian consented to allow [employer] to record this visit. SAMUEL design engineering specialist and provider reviewed before signing. SAMUEL: [...] History Tobacco - Denies Tobacco Use, 06/21/2023 [facility] Comment on above: Result Comment: Elec [...] EDT With: Rupa CERRATO, Shaun Xiao Where: [facility] Dig[facility] Consent for Treatmenton 06-06 Consent for Treatment [id number]#1.00TIF F [facility] Physician Referralon 024 Physician Referral [id number]#1.00TIF F [facility] Referrals Officeon 4 Referrals Office [id number]#1.00TIF F [facility] Physician Orderon 05-30-2023 Physician Order [id number]#1.00TIF F [facility] Referrals Officeon Referrals Office [id number]#1.00TIF F [facility] CREATININEon 08-08-2022 Creatinine [Mass/Vol] 0.94 mg/dL Normal 0.55-1.02 [facility] Comment on above: Performed By: #### L IPA, HSTROPN, TSH, CMP #### [facility] [address] [address] [address] Juan Zamarripa EGFR-AF ALGERIAN >60 Normal >=60 [facility] Comment on above: Performed By: #### L IPA, HSTROPN, TSH, CMP #### [facility] [address] [address] [address] Juan Zamarripa EGFR-NON AF ALGERIAN 58 mL/min/1.73m2 Critically low >=60 [facility] Comment on above: Performed By: #### L IPA, HSTROPN, TSH, CMP #### [facility] [address] [address] ABD/PELVIS WO CONon [...] by: CARO SIBLEY Date: 2022-08-08 13:42 Normal [facility] Urine Cultureon 07-24-2022 Bacteria identified Cx Nom (U) No Growth 2 Days PERFORMED BY: [place] [address] PATHOLOGIST EXECUTIVE RECEPTIONIST JAIMIE RIVERA M.D. Normal [facility] Comment on above: Performed By: #### C UU #### [address] PNEUMOCOCCAL IM (23 SEROTYPE )on 07-07-2022 Pneumo Ab Type 1* 2.8 ug/mL Normal >1.3 [facility] Comment on above: Performed By: #### L IPA, HSTROPN, TSH, CMP #### [facility] [address] [address] [address] Juan Zamarripa Pneumo Ab Type 12 (12F)* 0.2 ug/mL Critically low >1.3 [facility] Comment on above: Performed By: #### L IPA, HSTROPN, TSH, CMP #### [facility] [address] [address] [address] Juan Zamarripa Pneumo Ab Type 14* >18.7 Normal >1.3 [facility] Comment on above: Performed By: #### L IPA, HSTROPN, TSH, CMP #### [facility] [address] [address] [address] Juan Zamarripa Pneumo Ab Type 17 (17F)* >20.2 Normal >1.3 [facility] Comment on above: Performed By: #### L IPA, HSTROPN, TSH, CMP #### [facility] [address] [place] [address] Dr. Juan Zamarripa Pneumo Ab Type 19 (19F)* 21.7 ug/mL Normal >1.3 [facility] Comment on above: Performed By: #### L IPA, HSTROPN, TSH, CMP #### [facility] [address] [place] [address] Dr. Juan Zamarripa Pneumo Ab Type 2* 5.7 ug/mL Normal >1.3 [facility] Comment on above: Performed By: #### L IPA, HSTROPN, TSH, CMP #### [facility] [address] [place] [address] Dr. Juan Zamarripa Pneumo Ab Type 20* 4.0 ug/mL Normal >1.3 [facility] Comment on above: Performed By: #### L IPA, HSTROPN, TSH, CMP #### [facility] [address] [place] [address] Dr. Juan Zamarripa Pneumo Ab Type 22 (22F)* 1.5 ug/mL Normal >1.3 [facility] Comment on above: Performed By: #### L IPA, HSTROPN, TSH, CMP #### [facility] [address] [place] [address] Dr. Juan Zamarripa Pneumo Ab Type 23 (23F)* 3.4 ug/mL Normal >1.3 [facility] Comment on above: Performed By: #### L IPA, HSTROPN, TSH, CMP #### [facility] [address] [place] [address] Dr. Juan Zamarripa Pneumo Ab Type 26 (6B)* 3.0 ug/mL Normal >1.3 [facility] Comment on above: Performed By: #### L IPA, HSTROPN, TSH, CMP #### [facility] [address] [address] [address] Juan Zamarripa Pneumo Ab Type 3* 1.6 ug/mL Normal >1.3 [facility] Comment on above: Performed By: #### L IPA, HSTROPN, TSH, CMP #### [facility] [address] [place] [address] Dr. Juan Zamarripa Pneumo Ab Type 34 (10A)* 4.4 ug/mL Normal >1.3 [facility] Comment on above: Performed By: #### L IPA, HSTROPN, TSH, CMP #### [facility] [address] [place] [address] Dr. Juan Zamarripa Pneumo Ab Type 4* 1.6 ug/mL Normal >1.3 [facility] Comment on above: Performed By: #### L IPA, HSTROPN, TSH, CMP #### [facility] [address] [place] [address] Dr. Juan Zamarripa Pneumo Ab Type 43 (11A)* >7.6 Normal >1.3 [facility] Comment on above: Performed By: #### L IPA, HSTROPN, TSH, CMP #### [facility] [address] [place] [address] Dr. Juan Zamarripa Pneumo Ab Type 5* 2.0 ug/mL Normal >1.3 [facility] Comment on above: Performed By: #### L IPA, HSTROPN, TSH, CMP #### [facility] [address] [place] [address] Dr. Juan Zamarripa Pneumo Ab Type 51 (7F)* 0.9 ug/mL Critically low >1.3 [facility] Comment on above: Performed By: #### L IPA, HSTROPN, TSH, CMP #### [facility] [address] [place] [address] Dr. Juan Zamarripa Pneumo Ab Type 54 (15B)* >22.0 Normal >1.3 [facility] Comment on above: Performed By: #### L IPA, HSTROPN, TSH, CMP #### [facility] [address] [place] [address] Dr. Juan Zamarripa Pneumo Ab Type 56 (18C)* >8.1 Normal >1.3 [facility] Comment on above: Performed By: #### L IPA, HSTROPN, TSH, CMP #### [facility] [address] [place] [address] Dr. Juan Zamarripa Pneumo Ab Type 57 (19A)* 2.5 ug/mL Normal >1.3 [facility] Comment on above: Performed By: #### L IPA, HSTROPN, TSH, CMP #### [facility] [address] [place] [address] Dr. Juan Zamarripa Pneumo Ab Type 68 (9V)* >13.4 Normal >1.3 [facility] Comment on above: Performed By: #### L IPA, HSTROPN, TSH, CMP #### [facility] [address] [place] [address] Dr. Juan Zamarripa Pneumo Ab Type 70 (33F)* >10.1 Normal >1.3 [facility] Comment on above: Result Comment: *Thi s test was developed and its performance characteristics determined by [facility]. It has not been cleared or approved by the U.S. Food and Drug Administration. Performed By: #### L IPA, HSTROPN, TSH, CMP #### [facility] [address] [place] [address] Dr. Juan Zamarripa Pneumo Ab Type 8* 1.2 ug/mL Critically low >1.3 [facility] Comment on above: Performed By: #### L IPA, HSTROPN, TSH, CMP #### [facility] [address] [place] [address] Dr. Juan Zamarripa Pneumo Ab Type 9 (9N)* 1.7 ug/mL Normal >1.3 Th e [facility] Comment on above: Performed By: #### L IPA, HSTROPN, TSH, CMP #### [facility] [address] [place] [address] Dr. Juan Zamarripa BORDETELLA PERTUSSIS AB IGGo n 07-05-2022 B pertussis IgG Ab 1.53 index Invalid Interpretation Code 0.00-0.94 [facility] Comment on above: Result Comment: Clie nt Requested Flag Negative <0.95 Equivocal 0.95 - 1.04 Positive >1.04 Performed By: #### A 1C #### [facility] [address] [place] [address] Dr. Juan Zamarripa TETANUS DIPTHERIA AB PROFILE on 07-05-2022 Diphtheria Antitoxoid Ab 0.29 IU/mL Normal <0.10 [facility] Comment on above: Result Comment: Inte rpretation: Non-Protective <0.10 Protective >=0.10 . For research use only. Performed By: #### C BC #### [facility] [address] [place] [address] Dr. Juan Zamarripa Tetanus Antitoxoid IgG Ab 0.94 IU/mL Normal <0.10 [facility] Comment on above: Result Comment: Inte rpretation: Non-Protective <0.10 Protective >=0.10 Results for this test are for research purposes only by the assay's unit control clerk. The performance characteristics of this product have not been established. Results should not be used as a diagnostic procedure without confirmation of the diagnosis by another medically established diagnostic product or procedure. Performed By: #### C BC #### [facility] [address] [place] [address] Dr. Juan Zamarripa HAEMOPHILUS INFLUENZA B IGGo n 07-04-2022 Haemophilus influenzae B IgG 0.21 ug/mL Normal [facility] Comment on above: Result Comment: NOTE : An anti-Hib level of 0.15 ug/mL is generally accepted as the minimum level for protection. Optimal protection post-vaccination requires a level greater than 1.00 ug/mL. Performed By: #### L IPA, HSTROPN, TSH, CMP #### [facility] [address] [place] [address] Dr. Juan Zamarripa IMMUNOGLOBULINS IGA/IGM/IGG QUANTITATIVEon 07-03-2022 Immunoglobulin A, Qn, Serum 219 mg/dL Normal 64-422 [facility] Comment on above: Performed By: #### L IPA, HSTROPN, TSH, CMP #### [facility] [address] [address] [address] Juan Zamarripa Immunoglobulin G, Qn, Serum 1365 mg/dL Normal 586-1602 [facility] Comment on above: Performed By: #### L IPA, HSTROPN, TSH, CMP #### [facility] [address] [address] [address] Juan Zamarripa Immunoglobulin M, Qn, Serum 66 mg/dL Normal 26-217 [facility] Comment on above: Performed By: #### L IPA, HSTROPN, TSH, CMP #### [facility] [address] [address] [address] Juan Zamarripa LYMPHOCYTE ACTIVITY PROFILEo n 07-03-2022 %CD3+CD25+Lymphs 20.3 % Normal 4.9-25.9 [facility] Comment on above: Result Comment: This test was developed and its performance characteristics determined by [facility]. It has not been cleared or approved by the Food and Drug Administration. Performed at: BN Performed By: #### L YMACT #### [facility] [address] [place] [address] Dr. Juan Zamarripa %CD8+CD57+Lymphs 16.6 % Critically high 0.0-11.3 [facility] Comment on above: Result Comment: This test was developed and its performance characteristics determined by [facility]. It has not been cleared or approved by the Food and Drug Administration. Performed at: BN Performed By: #### L YMACT #### [facility] [address] [place] [address] Dr. Juan Zamarripa Abs CD 4 helper 986 /uL Normal 359-1519 [facility] Comment on above: Result Comment: Perf ormed at: CB Performed By: #### L YMACT #### [facility] [address] [place] [address] Dr. Juan Zamarripa Abs. CD 8 Supp 898 /uL Critically high 109-897 [facility] Comment on above: Result Comment: Perf ormed at: CB Performed By: #### L YMACT #### [facility] [address] [place] [address] Dr. Juan Zamarripa Abs.CD3+CD25+Lymphs 447 /uL Normal 79-535 [facility] Comment on above: Result Comment: This test was developed and its performance characteristics determined by [facility]. It has not been cleared or approved by the Food and Drug Administration. Performed at: CB Performed By: #### L YMACT #### [facility] [address] [address] [address] Juan Zamarripa Abs.CD8+CD57+Lymphs 365 /uL Critically high 0-254 [facility] Comment on above: Result Comment: This test was developed and its performance characteristics determined by [facility]. It has not been cleared or approved by the Food and Drug Administration. Performed at: CB Performed By: #### L YMACT #### [facility] [address] [place] [address] Dr. Juan Zamarripa Absolute CD 3 1918 /uL Normal [phone] [facility] Comment on above: Result Comment: Perf ormed at: CB Performed By: #### L YMACT #### [facility] [address] [place] [address] Dr. Juan Zamarripa Basophils (Bld) [#/Vol] 0.0 10*3/uL Normal 0.0-0.2 [facility] Comment on above: Result Comment: Perf ormed at: CB Performed By: #### L YMACT #### [facility] [address] [place] [address] Dr. Juan Zamarripa Basophils/100 WBC (Bld) 1 % Normal Not Estab. T [facility] Comment on above: Result Comment: Perf ormed at: CB Performed By: #### L YMACT #### [facility] [address] [place] [address] Dr. Juan Zamarripa CD4/CD8 Ratio 1.10 Normal 0.92-3.72 [facility] Comment on above: Result Comment: Perf ormed at: BN Performed By: #### L YMACT #### [facility] [address] [place] [address] Dr. Juan Zamarripa Eosinophils (Bld) [#/Vol] 0.1 10*3/uL Normal 0.0-0.4 [facility] Comment on above: Result Comment: Perf ormed at: CB Performed By: #### L YMACT #### [facility] [address] [place] [address] Dr. Juan Zamarripa Eosinophils/100 WBC (Bld) 1 % Normal Not Estab. [facility] Comment on above: Result Comment: Perf ormed at: CB Performed By: #### L YMACT #### [facility] [address] [place] [address] Dr. Juan Zamarripa Erythrocyte distribution width (RBC) [Ratio] 12.6 % Normal 11.7-15.4 [facility] Comment on above: Result Comment: Perf ormed at: CB Performed By: #### L YMACT #### [facility] [address] [place] [address] Dr. Juan Zamarripa Hematocrit (Bld) [Volume fraction] 41.9 % Normal 34.0-46.6 [facility] Comment on above: Result Comment: Perf ormed at: CB Performed By: #### L YMACT #### [facility] [address] [place] [address] Dr. Juan Zamarripa Hematology Comments Normal [facility] Comment on above: Result Comment: Perf ormed at: CB Performed By: #### L YMACT #### [facility] [address] [place] [address] Dr. Juan Zamarripa Hemoglobin (Bld) [Mass/Vol] 14.2 g/dL Normal 11.1-15.9 [facility] Comment on above: Result Comment: Perf ormed at: CB Performed By: #### L YMACT #### [facility] [address] [place] [address] Dr. Juan Zamarripa Immature Cells Normal [facility] Comment on above: Result Comment: Perf ormed at: CB Performed By: #### L YMACT #### [facility] [address] [place] [address] Dr. Juan Zamarripa Immature Grans (Abs) 0.0 x10E3/uL Normal 0.0-0.1 [facility] Comment on above: Result Comment: Perf ormed at: CB Performed By: #### L YMACT #### [facility] [address] [place] [address] Dr. Juan Zamarripa Immature granulocytes/100 WBC (Bld) 0 % Normal Not Estab. [facility] Comment on above: Result Comment: Perf ormed at: CB Performed By: #### L YMACT #### [facility] [address] [place] [address] Dr. Juan Zamarripa Lymphocytes (Bld) [#/Vol] 2.2 10*3/uL Normal 0.7-3.1 [facility] Comment on above: Result Comment: Perf ormed at: CB Performed By: #### L YMACT #### [facility] [address] [place] [address] Dr. Juan Zamarripa Lymphocytes/100 WBC (Bld) 87.2 % Critically high 57.5-86.2 [facility] Comment on above: Result Comment: Perf ormed at: BN Performed By: #### L YMACT #### [facility] [address] [place] [address] Dr. Juan Zamarripa Lymphocytes/100 WBC (Bld) 44.8 % Normal 30.8-58.5 [facility] Comment on above: Result Comment: Perf ormed at: BN Performed By: #### L YMACT #### [facility] [address] [place] [address] Dr. Juan Zamarripa Lymphocytes/100 WBC (Bld) 40.8 % Critically high 12.0-35.5 [facility] Comment on above: Result Comment: Perf ormed at: BN Performed By: #### L YMACT #### [facility] [address] [place] [address] Dr. Juan Zamarripa Lymphocytes/100 WBC (Bld) 34 % Normal Not Estab. [facility] Comment on above: Result Comment: Perf ormed at: CB Performed By: #### L YMACT #### [facility] [address] [place] [address] Dr. Juan Zamarripa MCH (RBC) [Entitic mass] 31.3 pg Normal 26.6-33.0 [facility] Comment on above: Result Comment: Perf ormed at: CB Performed By: #### L YMACT #### [facility] [address] [place] [address] Dr. Juan Zamarripa MCHC (RBC) [Mass/Vol] 33.9 g/dL Normal 31.5-35.7 [facility] Comment on above: Result Comment: Perf ormed at: CB Performed By: #### L YMACT #### [facility] [address] [place] [address] Dr. Juan Zamarripa MCV (RBC) [Entitic vol] 92 fL Normal 79-97 [facility] Comment on above: Result Comment: Perf ormed at: CB Performed By: #### L YMACT #### [facility] [address] [place] [address] Dr. Juan Zamarripa Monocytes (Bld) [#/Vol] 0.3 10*3/uL Normal 0.1-0.9 [facility] Comment on above: Result Comment: Perf ormed at: CB Performed By: #### L YMACT #### [facility] [address] [place] [address] Dr. Juan Zamarripa Monocytes/100 WBC (Bld) 4 % Normal Not Estab. [facility] Comment on above: Result Comment: Perf ormed at: CB Performed By: #### L YMACT #### [facility] [address] [place] [address] Dr. Juan Zamarripa Neutrophils Absolute 4.0 x10E3/uL Normal 1.4-7.0 [facility] Comment on above: Result Comment: Perf ormed at: CB Performed By: #### L YMACT #### [facility] [address] [place] [address] Dr. Juan Zamarripa Neutrophils/100 WBC (Bld) 60 % Normal Not Estab. [facility] Comment on above: Result Comment: Perf ormed at: CB Performed By: #### L YMACT #### [facility] [address] [place] [address] Dr. Juan Zamarripa NRBC Normal [facility] Comment on above: Result Comment: Perf ormed at: CB Performed By: #### L YMACT #### [facility] [address] [address] [address] Juan Zamarripa Platelets (Bld) [#/Vol] 164 10*3/uL Normal 150-450 [facility] Comment on above: Result Comment: Perf ormed at: CB Performed By: #### L YMACT #### [facility] [address] [address] [address] Juan Zamarripa RBC (Bld) [#/Vol] 4.54 10*6/uL Normal 3.77-5.28 [facility] Comment on above: Result Comment: Perf ormed at: CB Performed By: #### L YMACT #### [facility] [address] [address] [address] Juan Zamarripa WBC (Bld) [#/Vol] 6.6 10*3/uL Normal 3.4-10.8 [facility] Comment on above: Result Comment: Perf ormed at: CB Performed By: #### L YMACT #### [facility] [address] [address] [address] Juan Zamarripa PROF 14(COMP METB)on 023 Albumin [Mass/Vol] 4.1 g/dL Normal 3.4-5.0 [facility] Comment on above: Performed By: #### L IPA, HSTROPN, TSH, CMP #### [facility] [address] [address] [address] Juan Zamarripa Albumin/Globulin [Mass ratio] 1.1 {ratio} Normal [facility] Comment on above: Performed By: #### L IPA, HSTROPN, TSH, CMP #### [facility] [address] [address] [address] Juan Zamarripa ALP [Catalytic activity/Vol] 107 U/L Normal 46-116 [facility] Comment on above: Performed By: #### L IPA, HSTROPN, TSH, CMP #### [facility] [address] [address] [address] Juan Zamarripa ALT [Catalytic activity/Vol] 69 U/L Critically high 14-59 [facility] Comment on above: Performed By: #### L IPA, HSTROPN, TSH, CMP #### [facility] [address] [address] [address] Juan Zamarripa Anion gap [Moles/Vol] 14.0 mmol/L Normal Th e [facility] Comment on above: Performed By: #### L IPA, HSTROPN, TSH, CMP #### [facility] [address] [place] [address] Dr. Juan Zamarripa AST [Catalytic activity/Vol] 31 U/L Normal 15-37 [facility] Comment on above: Performed By: #### L IPA, HSTROPN, TSH, CMP #### [facility] [address] [place] [address] Dr. Juan Zamarripa Bilirubin [Mass/Vol] 0.8 mg/dL Normal 0.2-1.0 [facility] Comment on above: Performed By: #### L IPA, HSTROPN, TSH, CMP #### [facility] [address] [place] [address] Dr. Juan Zamarripa Calcium [Mass/Vol] 9.1 mg/dL Normal 8.5-10.1 [facility] Comment on above: Performed By: #### L IPA, HSTROPN, TSH, CMP #### [facility] [address] [place] [address] Dr. Juan Zamarripa Chloride [Moles/Vol] 104 mmol/L Normal 98-107 [facility] Comment on above: Performed By: #### L IPA, HSTROPN, TSH, CMP #### [facility] [address] [place] [address] Dr. uJan Zamarripa CO2 [Moles/Vol] 28.1 mmol/L Normal 21.0-32.0 [facility] Comment on above: Performed By: #### L IPA, HSTROPN, TSH, CMP #### [facility] [address] [place] [address] Dr. Juan Zamarripa Creatinine [Mass/Vol] 0.77 mg/dL Normal 0.55-1.02 [facility] Comment on above: Performed By: #### L IPA, HSTROPN, TSH, CMP #### [facility] [address] [address] [address] Juan Zamarripa EGFR-AF ALGERIAN >60 Normal >=60 [facility] Comment on above: Performed By: #### L IPA, HSTROPN, TSH, CMP #### [facility] [address] [address] [address] Juan Zamarripa EGFR-NON AF ALGERIAN >60 Normal >=60 [facility] Comment on above: Performed By: #### L IPA, HSTROPN, TSH, CMP #### [facility] [address] [address] [address] Juan Zamarripa Globulin (S) [Mass/Vol] 3.9 g/dL Normal [facility] Comment on above: Performed By: #### L IPA, HSTROPN, TSH, CMP #### [facility] [address] [address] [address] Juan Zamarripa Glucose [Mass/Vol] 186 mg/dL Critically high 74-106 [facility] Comment on above: Performed By: #### L IPA, HSTROPN, TSH, CMP #### [facility] [address] [address] [address] Juan Zamarripa Potassium [Moles/Vol] 4.1 mmol/L Normal 3.5-5.1 [facility] Comment on above: Performed By: #### L IPA, HSTROPN, TSH, CMP #### [facility] [address] [address] [address] Juan Zamarripa Protein [Mass/Vol] 8.0 g/dL Normal 6.4-8.2 [facility] Comment on above: Performed By: #### L IPA, HSTROPN, TSH, CMP #### [facility] [address] [address] [address] Juan Zamarripa Sodium [Moles/Vol] 142 mmol/L Normal 136-145 [facility] Comment on above: Performed By: #### L IPA, HSTROPN, TSH, CMP #### [facility] [address] [address] [address] Juan Zamarripa Urea nitrogen [Mass/Vol] 9.0 mg/dL Normal 7.0-18.0 [facility] Comment on above: Performed By: #### L IPA, HSTROPN, TSH, CMP #### [facility] [address] [address] [address] Juan Zamarripa Urea nitrogen/Creatinine [Mass ratio] 11.7 mg/mg Normal [facility] Comment on above: Performed By: #### L IPA, HSTROPN, TSH, CMP #### [facility] [address] [place] [address] Dr. Juan Zamarripa CULTURE URINEon 06-12-2022 CULTURE URINE Culture Observations : LIGHT GROWTH OF MIXED GENITAL ALDA. NO POTENTIAL PATHOGENS SEEN. Normal [facility] Comment on above: Performed By: #### U RCX #### [facility] [address] [place] [address] Dr. Juan Zamarripa UA RANDOMon 06-12-2022 Glucose Ql (U) 100 mg/dl Abnormal NEGATIVE [facility] Comment on above: Performed By: #### U A #### [facility] [address] [place] [address] Dr. Juan Zamarripa LEUKOCYTES SMALL Abnormal NEGATIVE [facility] Comment on above: Performed By: #### U A #### [facility] [address] [place] [address] Dr. Juan Zamarripa SPEC GRAVITY 1.015 Normal 1.005-<=1. 025 [facility] Comment on above: Performed By: #### U A #### [facility] [address] [place] [address] Dr. Juan Zamarripa UA PROTEIN Negative Normal NEGATIVE/ TRACE [facility] Comment on above: Performed By: #### U A #### [facility] [address] [place] [address] Dr. Juan Zamarripa Urobilinogen Qn (U) 0.2 {Amee'U}/dL Normal 0.2 - 1. 0 [facility] Comment on above: Performed By: #### U A #### [facility] [address] [address] [address] Juan Zamarripa Urinalysison 06-12-2022 Glucose Ql (U) 100 mg/dl Abnormal NEGATIVE mg/dl [facility]20[facility] Other Urinalysis see note 8020[facility] Other Urinalysis 1.015 1.005-<=1. 025 [facility] Other Urinalysis Negative NEGATIVE/ TRACE mg/dl [facility]20[facility] Other Urinalysis 0.2 EU/dl 0.2 - 1.0 EU/dl 8020[facility] Other Urinalysis SMALL Abnormal NEGATIVE [facility]20[facility] Other Bilirubin Ql (U) Negative Normal NEGATIVE [employer] Other Comment on above: Performed By: #### U A #### [facility] [address] [place] [address] Dr. Juan Zamarripa Clarity (U) CLEAR Normal CLEAR [facility] Other Comment on above: Performed By: #### U A #### [facility] [address] [place] [address] Dr. Juan Zamarripa Color (U) LT. YELLOW Normal YELLOW [facility] Other Comment on above: Performed By: #### U A #### [facility] [address] [address] [address] Juan Zamarripa Hemoglobin Ql (U) Negative Normal NEGATIVE [facility] Other Comment on above: Performed By: #### U A #### [facility] [address] [address] [address] Juan Zamarripa Ketones Ql (U) Negative Normal NEGATIVE [employer] Other Comment on above: Performed By: #### U A #### [facility] [address] [place] [address] Dr. Juan Zamarripa Nitrite Ql (U) Negative Normal NEGATIVE [employer] Other Comment on above: Performed By: #### U A #### [facility] [address] [place] [address] Dr. Juan Zamarripa pH (U) 6.0 [pH] Normal 5-9 [facility] Other Comment on above: Performed By: #### U A #### [facility] [address] [place] [address] Dr. Juan Zamarripa CULTURE URINEon 04-25-2022 CULTURE [...] S F Nitrofurantoin <=16 S F Normal [facility] Comment on above: Performed By: #### A 1C #### [facility] [address] [place] [address] Dr. Juan Zamarripa TL by IFAon 04-24-2022 Antinuclear Antibodies, IFA Positive Abnormal [facility] Comment on above: Result Comment: Nega tive <1:80 Borderline 1:80 Positive >1:80 Performed By: #### L IPA, HSTROPN, TSH, CMP #### [facility] [address] [place] [address] Dr. Juan Zamarripa Centriole Pattern Normal [facility] Comment on above: Performed By: #### L IPA, HSTROPN, TSH, CMP #### [facility] [address] [place] [address] Dr. Juan Zamarripa Centromere Pattern Normal [facility] Comment on above: Performed By: #### L IPA, HSTROPN, TSH, CMP #### [facility] [address] [place] [address] Dr. Juan Zamarripa Homogeneous Pattern 1:160 Critically high [facility] Comment on above: Result Comment: ICAP nomenclature: [id number] Performed By: #### L IPA, HSTROPN, TSH, CMP #### [facility] [address] [address] [address] Juan Zamarripa Midbody Pattern Normal [facility] Comment on above: Performed By: #### L IPA, HSTROPN, TSH, CMP #### [facility] [address] [place], [place] [address] Dr. Juan Zamarripa Note: Comment Normal [facility] Comment on above: Result Comment: For [...] titers Nucleosomes, Histones Drug-induced SLE Speckled Sm, MACHINE VENEER REPAIRER, SCL-70, SLE,MCTD,PSS (diffuse form), SS-A/SS-B Sjogrens Nucleolar SCL-70, PM-1/SCL High titers Scleroderma, PM/DM Centromere Centromere PSS (limited form) w/Crest syndrome variable Nuclear Dot [id number] Primary Biliary Cirrhosis Nuclear GP210, Primary Biliary Cirrhosis Membrane trinity A,B,C Performed By: #### L IPA, HSTROPN, TSH, CMP #### [facility] [address] [place] [address] Dr. Juan Zamarripa Nuclear Dot Pattern Normal [facility] Comment on above: Performed By: #### L IPA, HSTROPN, TSH, CMP #### [facility] [address] [place] [address] Dr. Juan Zamarripa Nuclear Membrane Pattern Normal [facility] Comment on above: Performed By: #### L IPA, HSTROPN, TSH, CMP #### [facility] [address] [address] [address] Juan Zamarripa Nucleolar Pattern Normal [facility] Comment on above: Performed By: #### L IPA, HSTROPN, TSH, CMP #### [facility] [address] [address] [address] Juan Zamarripa PCNA Pattern Normal [facility] Comment on above: Performed By: #### L IPA, HSTROPN, TSH, CMP #### [facility] [address] [place] [address] Dr. Juan Zamarripa Speckled Pattern 1:160 Critically high [facility] Comment on above: Result Comment: ICAP nomenclature: [id number],4,5,29 Performed By: #### L IPA, HSTROPN, TSH, CMP #### [facility] [address] [place] [address] Dr. Juan Zamarripa Spindle Apparatus Pattern Normal [facility] Comment on above: Performed By: #### L IPA, HSTROPN, TSH, CMP #### [facility] [address] [place] [address] Dr. Juan Zamarripa RHEUMATOID FACTORon 04-24-19 RA Latex Turbid. <10.0 Normal <14.0 [facility] Comment on above: Performed By: #### L IPA, HSTROPN, TSH, CMP #### [facility] [address] [place] [address] Dr. Juan Zamarripa CBC AUTO DIFFon 04-23-2022 BASO # 0.0 103/ul Normal 0.0-0.1 [facility] Comment on above: Performed By: #### C BC #### [facility] [address] [place] [address] Dr. Juan Zamarripa Basophils/100 WBC (Bld) 0.4 % Normal 0.2-2.0 [facility] Comment on above: Performed By: #### C BC #### [facility] [address] [place] [address] Dr. Juan Zamarripa EO # 0.1 103/ul Normal 0.0-0.7 [facility] Comment on above: Performed By: #### C BC #### [facility] [address] [place] [address] Dr. Juan Zamarripa Eosinophils/100 WBC (Bld) 1.8 % Normal 0.9-7.0 [facility] Comment on above: Performed By: #### C BC #### [facility] [address] [place] [address] Dr. Juan Zamarripa Erythrocyte distribution width (RBC) [Ratio] 12.6 % Normal 11.0-15.0 [facility] Comment on above: Performed By: #### C BC #### [facility] [address] [place] [address] Dr. Juan Zamarripa Hematocrit (Bld) [Volume fraction] 36.9 % Normal 36.0-48.0 [facility] Comment on above: Performed By: #### C BC #### [facility] [address] [place] [address] Dr. Juan Zamarripa Hemoglobin (Bld) [Mass/Vol] 12.6 g/dL Normal 12.0-16.0 [facility] Comment on above: Performed By: #### C BC #### [facility] [address] [place] [address] Dr. Juan Zamarripa IG # 0.02 10e3/ul Normal 0.00-0.03 [facility] Comment on above: Performed By: #### C BC #### [facility] [address] [place] [address] Dr. Juan Zamarripa IG % 0.3 % Normal 0.0-0.5 [facility] Comment on above: Performed By: #### C BC #### [facility] [address] [place] [address] Dr. Juan Zamarripa LYMPH # 3.3 103/ul Normal 1.2-3.8 [facility] Comment on above: Performed By: #### C BC #### [facility] [address] [place] [address] Dr. Juan Zamarripa Lymphocytes/100 WBC (Bld) 42.9 % Normal 20.5-60.0 [facility] Comment on above: Performed By: #### C BC #### [facility] [address] [place] [address] Dr. Juan Zamarripa MANUAL DIFF REQ NO Normal [facility] Comment on above: Performed By: #### C BC #### [facility] [address] [place] [address] Dr. Juan Zamarripa MCH (RBC) [Entitic mass] 31.2 pg Normal 26.7-34.0 [facility] Comment on above: Performed By: #### C BC #### [facility] [address] [address] [address] Juan Zamarripa MCHC (RBC) [Mass/Vol] 34.1 g/dL Normal 29.9-35.2 [facility] Comment on above: Performed By: #### C BC #### [facility] [address] [address] [address] Juan Zamarripa MCV (RBC) [Entitic vol] 91.3 fL Normal 81.0-99.0 [facility] Comment on above: Performed By: #### C BC #### [facility] [address] [address] [address] Juan Zamarripa MONO # 0.3 103/ul Normal 0.3-0.8 [facility] Comment on above: Performed By: #### C BC #### [facility] [address] [place] [address] Dr. Juan Zamarripa Monocytes/100 WBC (Bld) 4.4 % Normal 1.7-12.0 [facility] Comment on above: Performed By: #### C BC #### [facility] [address] [place] [address] Dr. Juan Zamarripa NEUT # 3.9 103/ul Normal 1.4-6.5 [facility] Comment on above: Performed By: #### C BC #### [facility] [address] [place] [address] Dr. Juan Zamarripa Neutrophils/100 WBC (Bld) 50.2 % Normal 43.0-75.0 [facility] Comment on above: Performed By: #### C BC #### [facility] [address] [address] [address] Juan Zamarripa Platelet mean volume (Bld) [Entitic vol] 9.0 fL Critically low 9.5-13.5 [facility] Comment on above: Performed By: #### C BC #### [facility] [address] [address] [address] Juan Zamarripa PLT 158 103/ul Normal 150-450 [facility] Comment on above: Performed By: #### C BC #### [facility] [address] [address] [address] Juan Zamarripa RBC 4.04 106/ul Critically low 4.20-5.40 [facility] Comment on above: Performed By: #### C BC #### [facility] [address] [place] [address] Dr. Juan Zamarripa WBC 7.8 103/ul Normal 4.0-11.0 [facility] Comment on above: Performed By: #### C BC #### [facility] [address] [address] [address] Juan Zamarripa CULTURE BLOODon 04-23-2022 Microscopic examination of blood, culture Culture Observations: NO GROWTH AT 5 DAYS. Normal [facility] Comment on above: Performed By: #### A 1C #### [facility] [address] [place] [address] Dr. Juan Zamarripa PROF 14(COMP METB)on 023 Albumin [Mass/Vol] 4.0 g/dL Normal 3.4-5.0 [facility] Comment on above: Performed By: #### L IPA, HSTROPN, TSH, CMP #### [facility] [address] [place] [address] Dr. Juan Zamarripa Albumin/Globulin [Mass ratio] 1.0 {ratio} Normal [facility] Comment on above: Performed By: #### L IPA, HSTROPN, TSH, CMP #### [facility] [address] [place] [address] Dr. Juan Zamarripa ALP [Catalytic activity/Vol] 87 U/L Normal 46-116 [facility] Comment on above: Performed By: #### L IPA, HSTROPN, TSH, CMP #### [facility] [address] [place] [address] Dr. Juan Zamarripa ALT [Catalytic activity/Vol] 78 U/L Critically high 14-59 [facility] Comment on above: Performed By: #### L IPA, HSTROPN, TSH, CMP #### [facility] [address] [place] [address] Dr. Juan Zamarripa Anion gap [Moles/Vol] 12.4 mmol/L Normal Th e [facility] Comment on above: Performed By: #### L IPA, HSTROPN, TSH, CMP #### [facility] [address] [address] [address] Juan Zamarripa AST [Catalytic activity/Vol] 39 U/L Critically high 15-37 [facility] Comment on above: Performed By: #### L IPA, HSTROPN, TSH, CMP #### [facility] [address] [address] [address] Juan Zamarripa Bilirubin [Mass/Vol] 0.7 mg/dL Normal 0.2-1.0 [facility] Comment on above: Performed By: #### L IPA, HSTROPN, TSH, CMP #### [facility] [address] [place] [address] Dr. Juan Zamarripa Calcium [Mass/Vol] 9.6 mg/dL Normal 8.5-10.1 [facility] Comment on above: Performed By: #### L IPA, HSTROPN, TSH, CMP #### [facility] [address] [address] [address] Juan Zamarripa Chloride [Moles/Vol] 101 mmol/L Normal 98-107 [facility] Comment on above: Performed By: #### L IPA, HSTROPN, TSH, CMP #### [facility] [address] [address] [address] Juan Zamarripa CO2 [Moles/Vol] 29.5 mmol/L Normal 21.0-32.0 [facility] Comment on above: Performed By: #### L IPA, HSTROPN, TSH, CMP #### [facility] [address] [place] [address] Dr. Juan Zamarripa Creatinine [Mass/Vol] 0.84 mg/dL Normal 0.55-1.02 [facility] Comment on above: Performed By: #### L IPA, HSTROPN, TSH, CMP #### [facility] [address] [place] [address] Dr. Juan Zamarripa EGFR-AF ALGERIAN >60 Normal >=60 [facility] Comment on above: Performed By: #### L IPA, HSTROPN, TSH, CMP #### [facility] [address] [address] [address] Juan Zamarripa EGFR-NON AF ALGERIAN >60 Normal >=60 [facility] Comment on above: Performed By: #### L IPA, HSTROPN, TSH, CMP #### [facility] [address] [address] [address] Juan Zamarripa Globulin (S) [Mass/Vol] 4.0 g/dL Normal [facility] Comment on above: Performed By: #### L IPA, HSTROPN, TSH, CMP #### [facility] [address] [place] [address] Dr. Juan Zamarripa Glucose [Mass/Vol] 208 mg/dL Critically high 74-106 [facility] Comment on above: Performed By: #### L IPA, HSTROPN, TSH, CMP #### [facility] [address] [place] [address] Dr. Juan Zamarripa Potassium [Moles/Vol] 3.9 mmol/L Normal 3.5-5.1 [facility] Comment on above: Performed By: #### L IPA, HSTROPN, TSH, CMP #### [facility] [address] [address] [address] Juan Zamarripa Protein [Mass/Vol] 8.0 g/dL Normal 6.4-8.2 [facility] Comment on above: Performed By: #### L IPA, HSTROPN, TSH, CMP #### [facility] [address] [place] [address] Dr. Juan Zamarripa Sodium [Moles/Vol] 139 mmol/L Normal 136-145 [facility] Comment on above: Performed By: #### L IPA, HSTROPN, TSH, CMP #### [facility] [address] [place] [address] Dr. Juan Zamarripa Urea nitrogen [Mass/Vol] 15.0 mg/dL Normal 7.0-18.0 [facility] Comment on above: Performed By: #### L IPA, HSTROPN, TSH, CMP #### [facility] [address] [place] [address] Dr. Juan Zamarripa Urea nitrogen/Creatinine [Mass ratio] 17.9 mg/mg Normal [facility] Comment on above: Performed By: #### L IPA, HSTROPN, TSH, CMP #### [facility] [address] [place] [address] Dr. Juan Zamarripa SED RATE WESTERGRENon 2022 SED RATE 26 mm/hr Normal <=30 [facility] Comment on above: Performed By: #### L IPA, HSTROPN, TSH, CMP #### [facility] [address] [place] [address] Dr. Juan Zamarripa CULTURE BLOODon 04-18-2022 Microscopic [...] C Trimethoprim/Sulfamethox azole <=10 S C Normal [facility] Comment on above: Performed By: #### A 1C #### [facility] [address] [place] [address] Dr. Juan Zamarripa CBC AUTO DIFFon 04-13-2022 BASO # 0.1 103/ul Normal 0.0-0.1 [facility] Comment on above: Performed By: #### C BC #### [facility] [address] [place] [address] Dr. Juan Zamarripa Basophils/100 WBC (Bld) 0.6 % Normal 0.2-2.0 [facility] Comment on above: Performed By: #### C BC #### [facility] [address] [place] [address] Dr. Juan Zamarripa EO # 0.2 103/ul Normal 0.0-0.7 [facility] Comment on above: Performed By: #### C BC #### [facility] [address] [place] [address] Dr. Juan Zamarripa Eosinophils/100 WBC (Bld) 1.6 % Normal 0.9-7.0 [facility] Comment on above: Performed By: #### C BC #### [facility] [address] [place] [address] Dr. Juan Zamarripa Erythrocyte distribution width (RBC) [Ratio] 12.6 % Normal 11.0-15.0 [facility] Comment on above: Performed By: #### C BC #### [facility] [address] [place] [address] Dr. Juan Zamarripa Hematocrit (Bld) [Volume fraction] 36.1 % Normal 36.0-48.0 [facility] Comment on above: Performed By: #### C BC #### [facility] [address] [place] [address] Dr. Juan Zamarripa Hemoglobin (Bld) [Mass/Vol] 12.5 g/dL Normal 12.0-16.0 [facility] Comment on above: Performed By: #### C BC #### [facility] [address] [place] [address] Dr. Juan Zamarripa IG # 0.02 10e3/ul Normal 0.00-0.03 [facility] Comment on above: Performed By: #### C BC #### [facility] [address] [place] [address] Dr. Juan Zamarripa IG % 0.2 % Normal 0.0-0.5 [facility] Comment on above: Performed By: #### C BC #### [facility] [address] [place] [address] Dr. Juan Zamarripa LYMPH # 4.8 103/ul Critically high 1.2-3.8 [facility] Comment on above: Performed By: #### C BC #### [facility] [address] [place] [address] Dr. Juan Zamarripa Lymphocytes/100 WBC (Bld) 49.6 % Normal 20.5-60.0 [facility] Comment on above: Performed By: #### C BC #### [facility] [address] [place] [address] Dr. Juan Zamarripa MANUAL DIFF REQ NO Normal [facility] Comment on above: Performed By: #### C BC #### [facility] [address] [place] [address] Dr. Juan Zamarripa MCH (RBC) [Entitic mass] 31.3 pg Normal 26.7-34.0 [facility] Comment on above: Performed By: #### C BC #### [facility] [address] [place] [address] Dr. Juan Zamarripa MCHC (RBC) [Mass/Vol] 34.6 g/dL Normal 29.9-35.2 [facility] Comment on above: Performed By: #### C BC #### [facility] [address] [place] [address] Dr. Juan Zamarripa MCV (RBC) [Entitic vol] 90.3 fL Normal 81.0-99.0 [facility] Comment on above: Performed By: #### C BC #### [facility] [address] [place] [address] Dr. Juan Zamarripa MONO # 0.5 103/ul Normal 0.3-0.8 [facility] Comment on above: Performed By: #### C BC #### [facility] [address] [place] [address] Dr. Juan Zamarripa Monocytes/100 WBC (Bld) 4.8 % Normal 1.7-12.0 [facility] Comment on above: Performed By: #### C BC #### [facility] [address] [place] [address] Dr. Juan Zamarripa NEUT # 4.2 103/ul Normal 1.4-6.5 [facility] Comment on above: Performed By: #### C BC #### [facility] [address] [place] [address] Dr. Juan Zamarripa Neutrophils/100 WBC (Bld) 43.2 % Normal 43.0-75.0 [facility] Comment on above: Performed By: #### C BC #### [facility] [address] [place] [address] Dr. Juan Zamarripa Platelet mean volume (Bld) [Entitic vol] 9.5 fL Normal 9.5-13.5 [facility] Comment on above: Performed By: #### C BC #### [facility] [address] [place] [address] Dr. Juan Zamarripa PLT 149 103/ul Critically low 150-450 [facility] Comment on above: Performed By: #### C BC #### [facility] [address] [place] [address] Dr. Juan Zamarripa RBC 4.00 106/ul Critically low 4.20-5.40 [facility] Comment on above: Performed By: #### C BC #### [facility] [address] [place] [address] Dr. Juan Zamarripa WBC 9.6 103/ul Normal 4.0-11.0 [facility] Comment on above: Performed By: #### C BC #### [facility] [address] [place] [address] Dr. Juan Zamarripa PROF CHEM 8 (BAS METB)on Anion gap [Moles/Vol] 11.4 mmol/L Normal [facility] Comment on above: Performed By: #### L IPA, HSTROPN, TSH, CMP #### [facility] [address] [place] [address] Dr. Juan Zamarripa Calcium [Mass/Vol] 8.7 mg/dL Normal 8.5-10.1 [facility] Comment on above: Performed By: #### L IPA, HSTROPN, TSH, CMP #### [facility] [address] [address] [address] Juan Zamarripa Chloride [Moles/Vol] 102 mmol/L Normal 98-107 [facility] Comment on above: Performed By: #### L IPA, HSTROPN, TSH, CMP #### [facility] [address] [address] [address] Juan Zamarripa CO2 [Moles/Vol] 28.5 mmol/L Normal 21.0-32.0 [facility] Comment on above: Performed By: #### L IPA, HSTROPN, TSH, CMP #### [facility] [address] [address] [address] Juan Zamarripa Creatinine [Mass/Vol] 0.88 mg/dL Normal 0.55-1.02 [facility] Comment on above: Performed By: #### L IPA, HSTROPN, TSH, CMP #### [facility] [address] [address] [address] Juan Zamarripa EGFR-AF ALGERIAN >60 Normal >=60 [facility] Comment on above: Performed By: #### L IPA, HSTROPN, TSH, CMP #### [facility] [address] [address] [address] Juan Zamarripa EGFR-NON AF ALGERIAN >60 Normal >=60 [facility] Comment on above: Performed By: #### L IPA, HSTROPN, TSH, CMP #### [facility] [address] [address] [address] Juan Zamarripa Glucose [Mass/Vol] 129 mg/dL Critically high 74-106 [facility] Comment on above: Performed By: #### L IPA, HSTROPN, TSH, CMP #### [facility] [address] [address] [address] Juan Zamarripa Potassium [Moles/Vol] 3.9 mmol/L Normal 3.5-5.1 [facility] Comment on above: Performed By: #### L IPA, HSTROPN, TSH, CMP #### [facility] [address] [address] [address] Juan Zamarripa Sodium [Moles/Vol] 138 mmol/L Normal 136-145 [facility] Comment on above: Performed By: #### L IPA, HSTROPN, TSH, CMP #### [facility] [address] [place] [address] Dr. Juan Zamarripa Urea nitrogen [Mass/Vol] 12.0 mg/dL Normal 7.0-18.0 [facility] Comment on above: Performed By: #### L IPA, HSTROPN, TSH, CMP #### [facility] [address] [place] [address] Dr. Juan Zamarripa Urea nitrogen/Creatinine [Mass ratio] 13.6 mg/mg Normal [facility] Comment on above: Performed By: #### L IPA, HSTROPN, TSH, CMP #### [facility] [address] [place] [address] Dr. Juan Zamarripa ACETONE SERUMon 04-12-2022 ACETONE Negative Normal NEGATIVE [facility] Comment on above: Performed By: #### C BC #### [facility] [address] [place] [address] Dr. Juan Zamarripa BLOOD CULTURE ID PANELon A. baumannii Not detected Normal NOT DETECTED [facility] Comment on above: Performed By: #### L IPA, HSTROPN, TSH, CMP #### [facility] [address] [place] [address] Dr. Juan Zamarripa Bacteriodes fragilis Not detected Normal NOT DETECTED [facility] Comment on above: Performed By: #### L IPA, HSTROPN, TSH, CMP #### [facility] [address] [place] [address] Dr. Juan Zamarripa BCID CONTROLS PASSED Normal [facility] Comment on above: Performed By: #### L IPA, HSTROPN, TSH, CMP #### [facility] [address] [place] [address] Dr. Juan Zamarripa BCIDBTHD BLOOD CULTURE BOTTLE INFORMATION Normal [facility] Comment on above: Performed By: #### L IPA, HSTROPN, TSH, CMP #### [facility] [address] [place] [address] Dr. Juan Zamarripa BCIDHD1 ANTIMICROBIAL RESIST ANCE GENES Normal [facility] Comment on above: Performed By: #### L IPA, HSTROPN, TSH, CMP #### [facility] [address] [address] [address] Juan Zamarripa BCIDHD2 SEE BELOW [facility] Comment on above: Result Comment: Note : Antimicrobial resitance can occur via multiple mechanisms. A Not Detected result for the [employer] antomicrobial resistance gene assays does not indicate antimicrobial susceptibility. Subculturing is required for species identification and susceptibility testing of isolates. Performed By: #### L IPA, HSTROPN, TSH, CMP #### [facility] [address] [address] [address] Juan Zamarripa BCIDHD3 Positive Normal [facility] Comment on above: Performed By: #### L IPA, HSTROPN, TSH, CMP #### [facility] [address] [address] [address] Juan Zamarripa BCIDHD4 Negative Normal [facility] Comment on above: Performed By: #### L IPA, HSTROPN, TSH, CMP #### [facility] [address] [address] [address] Juan Zamarripa BCIDHD5 YEAST Normal [facility] Comment on above: Performed By: #### L IPA, HSTROPN, TSH, CMP #### [facility] [address] [address] [address] Juan Zamarripa Bottle Set: Set 1 Normal [facility] Comment on above: Performed By: #### L IPA, HSTROPN, TSH, CMP #### [facility] [address] [address] [address] Juan Zamarripa Bottle: Anaerobic Normal [facility] Comment on above: Performed By: #### L IPA, HSTROPN, TSH, CMP #### [facility] [address] [address] [address] Juan Zamarripa C. neoformans/gattii Not detected Normal NOT DETECTED [facility] Comment on above: Performed By: #### L IPA, HSTROPN, TSH, CMP #### [facility] [address] [address] [address] Juan Zamarripa Mary Lou albicans Not detected Normal NOT DETECTED [facility] Comment on above: Performed By: #### L IPA, HSTROPN, TSH, CMP #### [facility] [address] [address] [address] Juan Zamarripa Mary Lou auris Not detected Normal NOT DETECTED [facility] Comment on above: Performed By: #### L IPA, HSTROPN, TSH, CMP #### [facility] [address] [address] [address] Juan Zamarripa Mary Lou glabrata Not detected Normal NOT DETECTED [facility] Comment on above: Performed By: #### L IPA, HSTROPN, TSH, CMP #### [facility] [address] [address] [address] Juan Zamarripa Mary Lou Krusei Not detected Normal NOT DETECTED [facility] Comment on above: Performed By: #### L IPA, HSTROPN, TSH, CMP #### [facility] [address] [place] [address] Dr. Juan Zamarripa Mary Lou Parapsilosis Not detected Normal NOT DETECTED [facility] Comment on above: Performed By: #### L IPA, HSTROPN, TSH, CMP #### [facility] [address] [place] [address] Dr. Juan Zamarripa Mary Lou Tropicalis Not detected Normal NOT DETECTED [facility] Comment on above: Performed By: #### L IPA, HSTROPN, TSH, CMP #### [facility] [address] [address] [address] Juan Zamarripa CTX-M Resistant Gene Not Applicable Normal NOT DETECTED [facility] Comment on above: Performed By: #### L IPA, HSTROPN, TSH, CMP #### [facility] [address] [address] [address] Juan Zamarripa E. Cloacae complex Not detected Normal NOT DETECTED [facility] Comment on above: Performed By: #### L IPA, HSTROPN, TSH, CMP #### [facility] [address] [address] [address] Juan Zamarripa E. faecalis Not detected Normal NOT DETECTED [facility] Comment on above: Performed By: #### L IPA, HSTROPN, TSH, CMP #### [facility] [address] [place] [address] Dr. Juan Zamarripa E. faecium Not detected Normal NOT DETECTED [facility] Comment on above: Performed By: #### L IPA, HSTROPN, TSH, CMP #### [facility] [address] [place] [address] Dr. Juan Zamarripa Enterobacteriaceae Not detected Normal NOT DETECTED [facility] Comment on above: Performed By: #### L IPA, HSTROPN, TSH, CMP #### [facility] [address] [place] [address] Dr. Juan Zamarripa Escherichia coli Not detected Normal NOT DETECTED [facility] Comment on above: Performed By: #### L IPA, HSTROPN, TSH, CMP #### [facility] [address] [place] [address] Dr. Juan Zamarripa H. influenzae Not detected Normal NOT DETECTED [facility] Comment on above: Performed By: #### L IPA, HSTROPN, TSH, CMP #### [facility] [address] [place] [address] Dr. Juan Zamarripa IMP Resistant Gene Not Applicable Normal NOT DETECTED [facility] Comment on above: Performed By: #### L IPA, HSTROPN, TSH, CMP #### [facility] [address] [place] [address] Dr. Juan Zamarripa K. oxytoca Not detected Normal NOT DETECTED [facility] Comment on above: Performed By: #### L IPA, HSTROPN, TSH, CMP #### [facility] [address] [place] [address] Dr. Juan Zamarripa K. pneumoniae Not detected Normal NOT DETECTED [facility] Comment on above: Performed By: #### L IPA, HSTROPN, TSH, CMP #### [facility] [address] [place] [address] Dr. Juan Zamarripa Klebsiella aerogenes Not detected Normal NOT DETECTED [facility] Comment on above: Performed By: #### L IPA, HSTROPN, TSH, CMP #### [facility] [address] [address] [address] Juan Zamarripa KPC Resistant Gene Not Applicable Normal NOT DETECTED [facility] Comment on above: Performed By: #### L IPA, HSTROPN, TSH, CMP #### [facility] [address] [address] [address] Juan Zamarripa List. monocytogenes Not detected Normal NOT DETECTED [facility] Comment on above: Performed By: #### L IPA, HSTROPN, TSH, CMP #### [facility] [address] [address] [address] Juan Zamarripa Mcr-1 Resistant Gene Not Applicable Normal NOT DETECTED [facility] Comment on above: Performed By: #### L IPA, HSTROPN, TSH, CMP #### [facility] [address] [place] [address] Dr. Juan Zamarripa mecA/C Not Applicable Normal NOT DETECTED [facility] Comment on above: Performed By: #### L IPA, HSTROPN, TSH, CMP #### [facility] [address] [address] [address] Juan Zamarripa mecA/C MREJ Not Applicable Normal NOT DETECTED [facility] Comment on above: Performed By: #### L IPA, HSTROPN, TSH, CMP #### [facility] [address] [address] [address] Juan Zamarripa N. meningitidis Not detected Normal NOT DETECTED [facility] Comment on above: Performed By: #### L IPA, HSTROPN, TSH, CMP #### [facility] [address] [address] [address] Juan Zamarripa NDM Resistant Gene Not Applicable Normal NOT DETECTED [facility] Comment on above: Performed By: #### L IPA, HSTROPN, TSH, CMP #### [facility] [address] [address] [address] Juan Zamarripa Oxa-48-like Not Applicable Normal NOT DETECTED [facility] Comment on above: Performed By: #### L IPA, HSTROPN, TSH, CMP #### [facility] [address] [address] [address] Juan Zamarripa Proteus Not detected Normal NOT DETECTED [facility] Comment on above: Performed By: #### L IPA, HSTROPN, TSH, CMP #### [facility] [address] [address] [address] Juan Zamarripa Pseud. aeruginosa Not detected Normal NOT DETECTED [facility] Comment on above: Performed By: #### L IPA, HSTROPN, TSH, CMP #### [facility] [address] [address] [address] Juan Zamarripa S. maltophilia Not detected Normal NOT DETECTED [facility] Comment on above: Performed By: #### L IPA, HSTROPN, TSH, CMP #### [facility] [address] [place] [address] Dr. Juan Zamarripa Salmonella Not detected Normal NOT DETECTED [facility] Comment on above: Performed By: #### L IPA, HSTROPN, TSH, CMP #### [facility] [address] [place] [address] Dr. Juan Zamarripa Seratia marcescens Not detected Normal NOT DETECTED [facility] Comment on above: Performed By: #### L IPA, HSTROPN, TSH, CMP #### [facility] [address] [place] [address] Dr. Juan Zamarripa Site: Rt Ac Normal [facility] Comment on above: Performed By: #### L IPA, HSTROPN, TSH, CMP #### [facility] [address] [address] [address] Juan Zamarripa Staph. aureus Not detected Normal NOT DETECTED [facility] Comment on above: Performed By: #### L IPA, HSTROPN, TSH, CMP #### [facility] [address] [place] [address] Dr. Juan Zamarripa Staph. epidermidis Not detected Normal NOT DETECTED [facility] Comment on above: Performed By: #### L IPA, HSTROPN, TSH, CMP #### [facility] [address] [address] [address] Juan Zamarripa Staph. lugdunensis Not detected Normal NOT DETECTED [facility] Comment on above: Performed By: #### L IPA, HSTROPN, TSH, CMP #### [facility] [address] [address] [address] Juan Zamarripa Staphylococcus Detected Critically abnormal NOT DETECTED [facility] Comment on above: Performed By: #### L IPA, HSTROPN, TSH, CMP #### [facility] [address] [address] [address] Juan Zamarripa Strep. agalactiae Not detected Normal NOT DETECTED [facility] Comment on above: Performed By: #### L IPA, HSTROPN, TSH, CMP #### [facility] [address] [place] [address] Dr. Juan Zamarripa Strep. pneumoniae Not detected Normal NOT DETECTED [facility] Comment on above: Performed By: #### L IPA, HSTROPN, TSH, CMP #### [facility] [address] [place] [address] Dr. Juan Zamarripa Strep. pyogenes Not detected Normal NOT DETECTED [facility] Comment on above: Performed By: #### L IPA, HSTROPN, TSH, CMP #### [facility] [address] [place] [address] Dr. Juan Zamarripa Streptococcus Not detected Normal NOT DETECTED [facility] Comment on above: Performed By: #### L IPA, HSTROPN, TSH, CMP #### [facility] [address] [place] [address] Dr. Juan Zamarripa Aleyda/B Resist. Gene Not Applicable Normal NOT DETECTED [facility] Comment on above: Performed By: #### L IPA, HSTROPN, TSH, CMP #### [facility] [address] [place] [address] Dr. Juan Zamarripa VIM Resistant Gene Not Applicable Normal NOT DETECTED [facility] Comment on above: Performed By: #### L IPA, HSTROPN, TSH, CMP #### [facility] [address] [place] [address] Dr. Juan Zamarripa CBC AUTO DIFFon 04-12-2022 BASO # 0.1 103/ul Normal 0.0-0.1 [facility] Comment on above: Performed By: #### L IPA, HSTROPN, TSH, CMP #### [facility] [address] [place] [address] Dr. Juan Zamarripa Basophils/100 WBC (Bld) 0.6 % Normal 0.2-2.0 [facility] Comment on above: Performed By: #### L IPA, HSTROPN, TSH, CMP #### [facility] [address] [place] [address] Dr. Juan Zamarripa EO # 0.1 103/ul Normal 0.0-0.7 [facility] Comment on above: Performed By: #### L IPA, HSTROPN, TSH, CMP #### [facility] [address] [place] [address] Dr. Juan Zamarripa Eosinophils/100 WBC (Bld) 0.9 % Normal 0.9-7.0 [facility] Comment on above: Performed By: #### L IPA, HSTROPN, TSH, CMP #### [facility] [address] [place] [address] Dr. Juan Zamarripa Erythrocyte distribution width (RBC) [Ratio] 12.8 % Normal 11.0-15.0 [facility] Comment on above: Performed By: #### L IPA, HSTROPN, TSH, CMP #### [facility] [address] [place] [address] Dr. Juan Zamarripa Hematocrit (Bld) [Volume fraction] 42.9 % Normal 36.0-48.0 [facility] Comment on above: Performed By: #### L IPA, HSTROPN, TSH, CMP #### [facility] [address] [place] [address] Dr. Juan Zamarripa Hemoglobin (Bld) [Mass/Vol] 15.1 g/dL Normal 12.0-16.0 [facility] Comment on above: Performed By: #### L IPA, HSTROPN, TSH, CMP #### [facility] [address] [place] [address] Dr. Juan Zamarripa IG # 0.04 10e3/ul Critically high 0.00-0.03 [facility] Comment on above: Performed By: #### L IPA, HSTROPN, TSH, CMP #### [facility] [address] [place] [address] Dr. Juan Zamarripa IG % 0.3 % Normal 0.0-0.5 [facility] Comment on above: Performed By: #### L IPA, HSTROPN, TSH, CMP #### [facility] [address] [place] [address] Dr. Juan Zamarripa LYMPH # 5.0 103/ul Critically high 1.2-3.8 [facility] Comment on above: Performed By: #### L IPA, HSTROPN, TSH, CMP #### [facility] [address] [place] [address] Dr. Juan Zamarripa Lymphocytes/100 WBC (Bld) 43.6 % Normal 20.5-60.0 [facility] Comment on above: Performed By: #### L IPA, HSTROPN, TSH, CMP #### [facility] [address] [place] [address] Dr. Juan Zamarripa MANUAL DIFF REQ NO Normal [facility] Comment on above: Performed By: #### L IPA, HSTROPN, TSH, CMP #### [facility] [address] [place] [address] Dr. Juan Zamarripa MCH (RBC) [Entitic mass] 31.3 pg Normal 26.7-34.0 [facility] Comment on above: Performed By: #### L IPA, HSTROPN, TSH, CMP #### [facility] [address] [place] [address] Dr. Juan Zamarripa MCHC (RBC) [Mass/Vol] 35.2 g/dL Normal 29.9-35.2 [facility] Comment on above: Performed By: #### L IPA, HSTROPN, TSH, CMP #### [facility] [address] [place] [address] Dr. Juan Zamarripa MCV (RBC) [Entitic vol] 88.8 fL Normal 81.0-99.0 [facility] Comment on above: Performed By: #### L IPA, HSTROPN, TSH, CMP #### [facility] [address] [place] [address] Dr. Juan Zamarripa MONO # 0.6 103/ul Normal 0.3-0.8 [facility] Comment on above: Performed By: #### L IPA, HSTROPN, TSH, CMP #### [facility] [address] [place] [address] Dr. Juan Zamarripa Monocytes/100 WBC (Bld) 5.2 % Normal 1.7-12.0 [facility] Comment on above: Performed By: #### L IPA, HSTROPN, TSH, CMP #### [facility] [address] [place] [address] Dr. Juan Zamarripa NEUT # 5.7 103/ul Normal 1.4-6.5 [facility] Comment on above: Performed By: #### L IPA, HSTROPN, TSH, CMP #### [facility] [address] [place] [address] Dr. Juan Zamarripa Neutrophils/100 WBC (Bld) 49.4 % Normal 43.0-75.0 [facility] Comment on above: Performed By: #### L IPA, HSTROPN, TSH, CMP #### [facility] [address] [place] [address] Dr. Juan Zamarripa Platelet mean volume (Bld) [Entitic vol] 9.6 fL Normal 9.5-13.5 [facility] Comment on above: Performed By: #### L IPA, HSTROPN, TSH, CMP #### [facility] [address] [place] [address] Dr. Juan Zamarripa PLT 210 103/ul Normal 150-450 [facility] Comment on above: Performed By: #### L IPA, HSTROPN, TSH, CMP #### [facility] [address] [place] [address] Dr. Juan Zamarripa RBC 4.83 106/ul Normal 4.20-5.40 [facility] Comment on above: Performed By: #### L IPA, HSTROPN, TSH, CMP #### [facility] [address] [place], [place] [address] Dr. Juan Zamarripa WBC 11.5 103/ul Critically high 4.0-11.0 [facility] Comment on above: Performed By: #### L IPA, HSTROPN, TSH, CMP #### [facility] [address] [place], [place] [address] ABD/PELV W CONon [...] CARO SIBLEY Date: 2022-04-12 16:53 Normal [facility] CULTURE BLOODon 04-12-2022 Microscopic examination of blood, culture Culture Observations: NO GROWTH AT 5 DAYS. Isolate 1 [id number] Normal [facility] Comment on above: Performed By: #### A 1C #### [facility] [address] [place] [address] Dr. Juan Zamarripa CULTURE URINEon 04-12-2022 CULTURE URINE Culture Observations : MODERATE GROWTH OF MIXED GENITAL ALDA. NO POTENTIAL PATHOGENS SEEN. Normal [facility] Comment on above: Performed By: #### U RCX #### [facility] [address] [place] [address] Dr. Juan Zamarripa Covid-19 PCR ([facility])on SARS-CoV-2 (COVID-19) RNA SUNNY+probe Ql (Unsp spec) Not detected Normal NOT DETECTED [facility] Comment on above: Result Comment: When [...] for this test is supported by the [place] of [employer] and Human Service's declaration that [...] #### L IPA, HSTROPN, TSH, CMP #### [facility] [address] [place] [address] Dr. Juan Zamarripa ER URINE PROFILEon 3 Bilirubin Ql (U) Negative Normal NEGATIVE [facility] Comment on above: Performed By: #### C BC #### [facility] [address] [address] [address] Juan Zamarripa Clarity (U) SL CLOUDY Abnormal CLEAR [facility] Comment on above: Performed By: #### C BC #### [facility] [address] [address] [address] Juan Zamarripa Color (U) LT. YELLOW Normal YELLOW [facility] Comment on above: Performed By: #### C BC #### [facility] [address] [place] [address] Dr. Juan Zamarripa ERUAHD A micrscopic examina tion will be performed if indicated. Normal [facility] Comment on above: Performed By: #### C BC #### [facility] [address] [place] [address] Dr. Juan Zamarripa Glucose Ql (U) 250 mg/dl Abnormal NEGATIVE [facility] Comment on above: Performed By: #### C BC #### [facility] [address] [place] [address] Dr. Juan Zamarripa Hemoglobin Ql (U) Negative Normal NEGATIVE [facility] Comment on above: Performed By: #### C BC #### [facility] [address] [place] [address] Dr. Juan Zamarripa Ketones Ql (U) TRACE Abnormal NEGATIVE [facility] Comment on above: Performed By: #### C BC #### [facility] [address] [place] [address] Dr. Juan Zamarripa LEUKOCYTES SMALL Abnormal NEGATIVE [facility] Comment on above: Performed By: #### C BC #### [facility] [address] [place] [address] Dr. Juan Zamarripa Nitrite Ql (U) Negative Normal NEGATIVE [facility] Comment on above: Performed By: #### C BC #### [facility] [address] [place] [address] Dr. Juan Zamarripa pH (U) 5.5 [pH] Normal 5-9 [facility] Comment on above: Performed By: #### C BC #### [facility] [address] [place] [address] Dr. Juan Zamarripa SPEC GRAVITY 1.030 Abnormal 1.005-<=1. 025 [facility] Comment on above: Performed By: #### C BC #### [facility] [address] [place] [address] Dr. Juan Zamarripa UA PROTEIN Negative Normal NEGATIVE/ TRACE [facility] Comment on above: Performed By: #### C BC #### [facility] [address] [place] [address] Dr. Juan Zamarripa UR MICRO IND INDICATED Normal [facility] Comment on above: Performed By: #### C BC #### [facility] [address] [place] [address] Dr. Juan Zamarripa Urobilinogen Qn (U) 0.2 {Amee'U}/dL Normal 0.2 - 1. 0 [facility] Comment on above: Performed By: #### C BC #### [facility] [address] [place] [address] Dr. Juan Zamarripa INFLUENZA A AND B AGon 04-12 INFLUANEGH SEE BELOW Normal [facility] Comment on above: Result Comment: Nega tive for Flu A protein angiten. Infection due to Flu A cannot be ruled out. Flu A angiten in the sample may be below the detection limit of the test. Performed By: #### L IPA, HSTROPN, TSH, CMP #### [facility] [address] [place] [address] Dr. Juan Zamarripa INFLUBNEGH SEE BELOW Normal [facility] Comment on above: Result Comment: Nega tive for Flu B protein antigen. Infection due to Flu B cannot be ruled out. Flu B antigen in the sample may be below the detection limit of the test. Performed By: #### L IPA, HSTROPN, TSH, CMP #### [facility] [address] [place] [address] Dr. Juan Zamarripa INFLUENZA A AG Negative Normal NEGATIVE SEE COMMENT [facility] Comment on above: Performed By: #### L IPA, HSTROPN, TSH, CMP #### [facility] [address] [place] [address] Dr. Juan Zamarripa INFLUENZA B AG Negative Normal NEGATIVE SEE COMMENT [facility] Comment on above: Performed By: #### L IPA HSTROPN, TSH, CMP #### [facility] [address] [place] [address] Dr. Juan Zamarripa LACTATE/LACTIC ACIDon 2022 Lactate [Moles/Vol] 1.8 mmol/L Normal 0.4-1.9 [facility] Comment on above: Performed By: #### C BC #### [facility] [address] [place] [address] Dr. Juan Zamarripa Lactate [Moles/Vol] 3.1 mmol/L Critically high 0.4-1.9 [facility] Comment on above: Performed By: #### L IPA, HSTROPN, TSH, CMP #### [facility] [address] [place] [address] Dr. Juan Zamarripa LIPASEon 04-12-2022 Lipase [Catalytic activity/Vol] 183.0 U/L Normal 73.0-393.0 [facility] Comment on above: Performed By: #### A 1C #### [facility] [address] [place] [address] Dr. Juan Zamarripa PH VENOUS BLOODon 04-12-2022 PCO2 VENOUS 42.9 mmHg Normal 40.0-52.0 [facility] Comment on above: Performed By: #### C BC #### [facility] [address] [place] [address] Dr. Juan Zamarripa pH VENOUS 7.383 Normal 7.330-7.43 0 [facility] Comment on above: Performed By: #### C BC #### [facility] [address] [place] [address] Dr. Juan Zamarripa PROF 14(COMP METB)on 023 Albumin [Mass/Vol] 4.3 g/dL Normal 3.4-5.0 [facility] Comment on above: Performed By: #### A 1C #### [facility] [address] [place] [address] Dr. Juan Zamarripa Albumin/Globulin [Mass ratio] 1.0 {ratio} Normal [facility] Comment on above: Performed By: #### A 1C #### [facility] [address] [address] [address] Juan Zamarripa ALP [Catalytic activity/Vol] 96 U/L Normal 46-116 [facility] Comment on above: Performed By: #### A 1C #### [facility] [address] [address] [address] Juan Zamarripa ALT [Catalytic activity/Vol] 80 U/L Critically high 14-59 [facility] Comment on above: Performed By: #### A 1C #### [facility] [address] [address] [address] Juan Zamarripa Anion gap [Moles/Vol] 14.7 mmol/L Normal [facility] Comment on above: Performed By: #### A 1C #### [facility] [address] [address] [address] Juan Zamarripa AST [Catalytic activity/Vol] 45 U/L Critically high 15-37 [facility] Comment on above: Performed By: #### A 1C #### [facility] [address] [address] [address] Juan Zamarripa Bilirubin [Mass/Vol] 0.8 mg/dL Normal 0.2-1.0 [facility] Comment on above: Performed By: #### A 1C #### [facility] [address] [address] [address] Juan Zamarripa Calcium [Mass/Vol] 10.0 mg/dL Normal 8.5-10.1 [facility] Comment on above: Performed By: #### A 1C #### [facility] [address] [address] [address] Juan Zamarripa Chloride [Moles/Vol] 99 mmol/L Normal 98-107 [facility] Comment on above: Performed By: #### A 1C #### [facility] [address] [address] [address] Juan Zamarripa CO2 [Moles/Vol] 26.4 mmol/L Normal 21.0-32.0 [facility] Comment on above: Performed By: #### A 1C #### [facility] [address] [address] [address] Juan Zamarripa Creatinine [Mass/Vol] 0.89 mg/dL Normal 0.55-1.02 [facility] Comment on above: Performed By: #### A 1C #### [facility] [address] [address] [address] Juan Zamarripa EGFR-AF ALGERIAN >60 Normal >=60 [facility] Comment on above: Performed By: #### A 1C #### [facility] [address] [address] [address] Juan Zamarripa EGFR-NON AF ALGERIAN >60 Normal >=60 [facility] Comment on above: Performed By: #### A 1C #### [facility] [address] [address] [address] Juan Zamarripa Globulin (S) [Mass/Vol] 4.3 g/dL Normal [facility] Comment on above: Performed By: #### A 1C #### [facility] [address] [place] [address] Dr. Juan Zamarripa Glucose [Mass/Vol] 168 mg/dL Critically high 74-106 [facility] Comment on above: Performed By: #### A 1C #### [facility] [address] [place] [address] Dr. Juan Zamarripa Potassium [Moles/Vol] 4.1 mmol/L Normal 3.5-5.1 [facility] Comment on above: Performed By: #### A 1C #### [facility] [address] [place] [address] Dr. Juan Zamarripa Protein [Mass/Vol] 8.6 g/dL Critically high 6.4-8.2 [facility] Comment on above: Performed By: #### A 1C #### [facility] [address] [place] [address] Dr. Juan Zamarripa Sodium [Moles/Vol] 136 mmol/L Normal 136-145 [facility] Comment on above: Performed By: #### A 1C #### [facility] [address] [place] [address] Dr. Juan Zamarripa Urea nitrogen [Mass/Vol] 18.0 mg/dL Normal 7.0-18.0 [facility] Comment on above: Performed By: #### A 1C #### [facility] [address] [place] [address] Dr. Juan Zamarripa Urea nitrogen/Creatinine [Mass ratio] 20.2 mg/mg Normal [facility] Comment on above: Performed By: #### A 1C #### [facility] [address] [place] [address] Dr. Juan Zamarripa TROPONIN, HIGH SENSITIVITYon 04-12-2022 HSTROP 4.9 pg/mL Normal 4.0-51.3 [facility] Comment on above: Result Comment: CUT- OFF POINTS HAVE BEEN ESTABLISHED BASED ON THE FOURTH UNIVERSAL DEFINITIONS OF MYOCARDIAL INFARCTION. THE UPPER REFERENCE LIMIT (URL) OF TROPONIN, DEFINED THE 99TH PERCENTILE OF cTnI DISTRIBUTION IN A REFERENCE POPULATION, HAS BEEN CONFIRMED THE DECISION THRESHOLD FOR SC DIAGNOSIS. Performed By: #### A 1C #### [facility] [address] [place] [address] Dr. Juan Zamarripa TSHon 04-12-2022 TSH 1.593 uIU/mL Normal 0.358-3.74 0 [facility] Comment on above: Performed By: #### C BC #### [facility] [address] [place] [address] Dr. Juan Zamarripa URINE MICROSCOPIC ONLYon BACTERIA SMALL Abnormal NONE SEEN [facility] Comment on above: Performed By: #### C BC #### [facility] [address] [place] [address] Dr. Juan Zamarripa Bacteria identified Cx Nom (U) INDICATED Normal [facility] Comment on above: Performed By: #### C BC #### [facility] [address] [place] [address] Dr. Juan Zamarripa CAST NONE SEEN Normal NONE SEEN [facility] Comment on above: Performed By: #### C BC #### [facility] [address] [place] [address] Dr. Juan Zamarripa Crystals LM Nom (Urine sed) NONE SEEN Normal NONE SEEN [facility] Comment on above: Performed By: #### C BC #### [facility] [address] [address] [address] Juan Zamarripa Epithelial cells LM Ql (Urine sed) FEW Abnormal NONE SEEN /RARE [facility] Comment on above: Performed By: #### C BC #### [facility] [address] [address] [address] Juan Zamarripa MUCOUS NONE SEEN Normal NONE SEEN [facility] [facility] Comment on above: Performed By: #### C BC #### [facility] [address] [address] [address] Juan Zamarripa RBC 0-2 Normal 0-2 [facility] Comment on above: Performed By: #### C BC #### [facility] [address] [place] [address] Dr. Juan Zamarripa WBC 2-5 Abnormal NONE SEEN [facility] Comment on above: Performed By: #### C BC #### [facility] [address] [place] [address] Dr. Juan Zamarripa XR CHEST 1 Von [...] JAZMINE DODSON Date: 2022-04-12 15:31 Normal [facility] CBC AUTO DIFFon 11-26-2021 BASO # 0.1 103/ul Normal 0.0-0.1 [facility] Comment on above: Performed By: #### L IPA, HSTROPN, TSH, CMP #### [facility] [address] [place] [address] Dr. Juan Zamarripa Basophils/100 WBC (Bld) 0.5 % Normal 0.2-2.0 [facility] Comment on above: Performed By: #### L IPA, HSTROPN, TSH, CMP #### [facility] [address] [place] [address] Dr. Juan Zamarripa EO # 0.1 103/ul Normal 0.0-0.7 [facility] Comment on above: Performed By: #### L IPA, HSTROPN, TSH, CMP #### [facility] [address] [place] [address] Dr. Juan Zamarripa Eosinophils/100 WBC (Bld) 1.1 % Normal 0.9-7.0 [facility] Comment on above: Performed By: #### L IPA, HSTROPN, TSH, CMP #### [facility] [address] [place] [address] Dr. Juan Zamarripa Erythrocyte distribution width (RBC) [Ratio] 12.5 % Normal 11.0-15.0 [facility] Comment on above: Performed By: #### L IPA, HSTROPN, TSH, CMP #### [facility] [address] [place] [address] Dr. Juan Zamarripa Hematocrit (Bld) [Volume fraction] 39.6 % Normal 36.0-48.0 [facility] Comment on above: Performed By: #### L IPA, HSTROPN, TSH, CMP #### [facility] [address] [place] [address] Dr. Juan Zamarripa Hemoglobin (Bld) [Mass/Vol] 13.7 g/dL Normal 12.0-16.0 [facility] Comment on above: Performed By: #### L IPA, HSTROPN, TSH, CMP #### [facility] [address] [place] [address] Dr. Juan Zamarripa IG # 0.04 10e3/ul Critically high 0.00-0.03 [facility] Comment on above: Performed By: #### L IPA, HSTROPN, TSH, CMP #### [facility] [address] [place] [address] Dr. Juan Zamarripa IG % 0.4 % Normal 0.0-0.5 [facility] Comment on above: Performed By: #### L IPA, HSTROPN, TSH, CMP #### [facility] [address] [place] [address] Dr. Juan Zamarripa LYMPH # 4.2 103/ul Critically high 1.2-3.8 [facility] Comment on above: Performed By: #### L IPA, HSTROPN, TSH, CMP #### [facility] [address] [place] [address] Dr. Juan Zamarripa Lymphocytes/100 WBC (Bld) 38.8 % Normal 20.5-60.0 [facility] Comment on above: Performed By: #### L IPA, HSTROPN, TSH, CMP #### [facility] [address] [place] [address] Dr. Juan Zamarripa MANUAL DIFF REQ NO Normal [facility] Comment on above: Performed By: #### L IPA, HSTROPN, TSH, CMP #### [facility] [address] [place] [address] Dr. Juan Zamarripa MCH (RBC) [Entitic mass] 32.2 pg Normal 26.7-34.0 [facility] Comment on above: Performed By: #### L IPA, HSTROPN, TSH, CMP #### [facility] [address] [place] [address] Dr. Juan Zamarripa MCHC (RBC) [Mass/Vol] 34.6 g/dL Normal 29.9-35.2 [facility] Comment on above: Performed By: #### L IPA, HSTROPN, TSH, CMP #### [facility] [address] [place] [address] Dr. Juan Zamarripa MCV (RBC) [Entitic vol] 93.0 fL Normal 81.0-99.0 [facility] Comment on above: Performed By: #### L IPA, HSTROPN, TSH, CMP #### [facility] [address] [place] [address] Dr. Juan Zamarripa MONO # 0.4 103/ul Normal 0.3-0.8 [facility] Comment on above: Performed By: #### L IPA, HSTROPN, TSH, CMP #### [facility] [address] [address] [address] Juan Zamarripa Monocytes/100 WBC (Bld) 3.9 % Normal 1.7-12.0 [facility] Comment on above: Performed By: #### L IPA, HSTROPN, TSH, CMP #### [facility] [address] [place] [address] Dr. Juan Zamarripa NEUT # 6.1 103/ul Normal 1.4-6.5 [facility] Comment on above: Performed By: #### L IPA, HSTROPN, TSH, CMP #### [facility] [address] [place] [address] Dr. Juan Zamarripa Neutrophils/100 WBC (Bld) 55.3 % Normal 43.0-75.0 [facility] Comment on above: Performed By: #### L IPA, HSTROPN, TSH, CMP #### [facility] [address] [place] [address] Dr. Juan Zamarripa Platelet mean volume (Bld) [Entitic vol] 9.6 fL Normal 9.5-13.5 [facility] Comment on above: Performed By: #### L IPA, HSTROPN, TSH, CMP #### [facility] [address] [place] [address] Dr. Juan Zamarripa PLT 187 103/ul Normal 150-450 [facility] Comment on above: Performed By: #### L IPA, HSTROPN, TSH, CMP #### [facility] [address] [place] [address] Dr. Juan Zamarripa RBC 4.26 106/ul Normal 4.20-5.40 [facility] Comment on above: Performed By: #### L IPA, HSTROPN, TSH, CMP #### [facility] [address] [place] [address] Dr. Juan Zamarripa WBC 10.9 103/ul Normal 4.0-11.0 [facility] Comment on above: Performed By: #### L IPA, HSTROPN, TSH, CMP #### [facility] [address] [place] [address] Dr. Juan Zamarripa [facility]07 SARS-CoV-2 (COVID-19) RNA SUNNY+probe Ql (Unsp spec) Not detected Normal NOT DETECTED [facility] Comment on above: Result Comment: When [...] for this test is supported by the [place] of Health and Human Service's declaration that [...] #### L IPA, HSTROPN, TSH, CMP #### [facility] [address] [place] [address] Dr. Juan Zamarripa LIPASEon 11-26-2021 Lipase [Catalytic activity/Vol] 140.0 U/L Normal 73.0-393.0 [facility] Comment on above: Performed By: #### L IPA, HSTROPN, TSH, CMP #### [facility] [address] [place] [address] Dr. Juan Zamarripa PROF 14(COMP METB)on 022 Albumin [Mass/Vol] 4.2 g/dL Normal 3.4-5.0 [facility] Comment on above: Performed By: #### L IPA, HSTROPN, TSH, CMP #### [facility] [address] [place] [address] Dr. Juan Zamarripa Albumin/Globulin [Mass ratio] 1.1 {ratio} Normal [facility] Comment on above: Performed By: #### L IPA, HSTROPN, TSH, CMP #### [facility] [address] [place] [address] Dr. Juan Zamarripa ALP [Catalytic activity/Vol] 93 U/L Normal 46-116 [facility] Comment on above: Performed By: #### L IPA, HSTROPN, TSH, CMP #### [facility] [address] [place] [address] Dr. Juan Zamarripa ALT [Catalytic activity/Vol] 74 U/L Critically high 14-59 [facility] Comment on above: Performed By: #### L IPA, HSTROPN, TSH, CMP #### [facility] [address] [place] [address] Dr. Juan Zamarripa Anion gap [Moles/Vol] 15.6 mmol/L Normal [facility] Comment on above: Performed By: #### L IPA, HSTROPN, TSH, CMP #### [facility] [address] [place] [address] Dr. Juan Zamarripa AST [Catalytic activity/Vol] 46 U/L Critically high 15-37 [facility] Comment on above: Performed By: #### L IPA, HSTROPN, TSH, CMP #### [facility] [address] [place] [address] Dr. Juan Zamarripa Bilirubin [Mass/Vol] 0.6 mg/dL Normal 0.2-1.0 [facility] Comment on above: Performed By: #### L IPA, HSTROPN, TSH, CMP #### [facility] [address] [place] [address] Dr. Juan Zamarripa Calcium [Mass/Vol] 9.7 mg/dL Normal 8.5-10.1 [facility] Comment on above: Performed By: #### L IPA, HSTROPN, TSH, CMP #### [facility] [address] [place] [address] Dr. Juan Zamarripa Chloride [Moles/Vol] 100 mmol/L Normal 98-107 [facility] Comment on above: Performed By: #### L IPA, HSTROPN, TSH, CMP #### [facility] [address] [place] [address] Dr. Juan Zamarripa CO2 [Moles/Vol] 25.6 mmol/L Normal 21.0-32.0 [facility] Comment on above: Performed By: #### L IPA, HSTROPN, TSH, CMP #### [facility] [address] [place] [address] Dr. Juan Zamarripa Creatinine [Mass/Vol] 0.89 mg/dL Normal 0.55-1.02 [facility] Comment on above: Performed By: #### L IPA, HSTROPN, TSH, CMP #### [facility] [address] [place] [address] Dr. Juan Zamarripa EGFR-AF ALGERIAN >60 Normal >=60 [facility] Comment on above: Performed By: #### L IPA, HSTROPN, TSH, CMP #### [facility] [address] [place] [address] Dr. Juan Zamarripa EGFR-NON AF ALGERIAN >60 Normal >=60 [facility] Comment on above: Performed By: #### L IPA, HSTROPN, TSH, CMP #### [facility] [address] [place] [address] Dr. Juan Zamarripa Globulin (S) [Mass/Vol] 3.7 g/dL Normal [facility] Comment on above: Performed By: #### L IPA, HSTROPN, TSH, CMP #### [facility] [address] [address] [address] Juan Zamarripa Glucose [Mass/Vol] 183 mg/dL Critically high 74-106 [facility] Comment on above: Performed By: #### L IPA, HSTROPN, TSH, CMP #### [facility] [address] [place] [address] Dr. Juan Zamarripa Potassium [Moles/Vol] 4.2 mmol/L Normal 3.5-5.1 [facility] Comment on above: Performed By: #### L IPA, HSTROPN, TSH, CMP #### [facility] [address] [place] [address] Dr. Juan Zamarripa Protein [Mass/Vol] 7.9 g/dL Normal 6.4-8.2 [facility] Comment on above: Performed By: #### L IPA, HSTROPN, TSH, CMP #### [facility] [address] [place] [address] Dr. Juan Zamarripa Sodium [Moles/Vol] 137 mmol/L Normal 136-145 [facility] Comment on above: Performed By: #### L IPA, HSTROPN, TSH, CMP #### [facility] [address] [place] [address] Dr. Juan Zamarripa Urea nitrogen [Mass/Vol] 13.0 mg/dL Normal 7.0-18.0 [facility] Comment on above: Performed By: #### L IPA, HSTROPN, TSH, CMP #### [facility] [address] [place] [address] Dr. Juan Zamarripa Urea nitrogen/Creatinine [Mass ratio] 14.6 mg/mg Normal [facility] Comment on above: Performed By: #### L IPA, HSTROPN, TSH, CMP #### [facility] [address] [place] [address] Dr. Juan Zamarripa TROPONIN, HIGH SENSITIVITYon 11-26-2021 HSTROP 4.6 pg/mL Normal 4.0-51.3 [facility] Comment on above: Result Comment: CUT- OFF POINTS HAVE BEEN ESTABLISHED BASED ON THE FOURTH UNIVERSAL DEFINITIONS OF MYOCARDIAL INFARCTION. THE UPPER REFERENCE LIMIT (URL) OF TROPONIN, DEFINED THE 99TH PERCENTILE OF cTnI DISTRIBUTION IN A REFERENCE POPULATION, HAS BEEN CONFIRMED THE DECISION THRESHOLD FOR SC DIAGNOSIS. Performed By: #### L IPA, HSTROPN, TSH, CMP #### [facility] [address] [place] [address] Dr. Juan Zamarripa TSHon 11-26-2021 TSH 2.343 uIU/mL Normal 0.358-3.74 0 [facility] Comment on above: Performed By: #### L IPA, HSTROPN, TSH, CMP #### [facility] [address] [place] [address] Dr. Jaun Zamarripa XR CHEST 1 Von 11-26-2021 XR [...] VERA ARANA Date: 2021-11-26 21:03 Normal [facility] Covid-19 PCR ([facility])on SARS-CoV-2 (COVID-19) RNA SUNNY+probe Ql (Unsp spec) Not detected Normal NOT DETECTED [facility] Comment on above: Result Comment: This test is not yet approved or cleared by the [place] FDA. When there are no FDA-approved or cleared tests available, and other criteria are met, FDA can make tests available under an emergency access mechanism called an Emergency Use Authorization (EUA). The EUA for this test is supported by the [employer] of Health and Human Service's (HHS's) declaration [...] SARS-CoV-2. Performed By: #### C BC #### [facility] [address] [address] [address] Juan Zamarripa CBC AUTO DIFFon 08-17-2021 BASO # 0.1 103/ul Normal 0.0-0.1 [facility] Comment on above: Performed By: #### L IPA, HSTROPN, TSH, CMP #### [facility] [address] [address] [address] Juan Zamarripa Basophils/100 WBC (Bld) 0.7 % Normal 0.2-2.0 [facility] Comment on above: Performed By: #### L IPA, HSTROPN, TSH, CMP #### [facility] [address] [place] [address] Dr. Juan Zamarripa EO # 0.1 103/ul Normal 0.0-0.7 [facility] Comment on above: Performed By: #### L IPA, HSTROPN, TSH, CMP #### [facility] [address] [place] [address] Dr. Juan Zamarripa Eosinophils/100 WBC (Bld) 1.6 % Normal 0.9-7.0 [facility] Comment on above: Performed By: #### L IPA, HSTROPN, TSH, CMP #### [facility] [address] [place] [address] Dr. Juan Zamarripa Erythrocyte distribution width (RBC) [Ratio] 12.6 % Normal 11.0-15.0 [facility] Comment on above: Performed By: #### L IPA, HSTROPN, TSH, CMP #### [facility] [address] [place] [address] Dr. Juan Zamarripa Hematocrit (Bld) [Volume fraction] 39.8 % Normal 36.0-48.0 [facility] Comment on above: Performed By: #### L IPA, HSTROPN, TSH, CMP #### [facility] [address] [place] [address] Dr. Juan Zamarripa Hemoglobin (Bld) [Mass/Vol] 13.7 g/dL Normal 12.0-16.0 [facility] Comment on above: Performed By: #### L IPA, HSTROPN, TSH, CMP #### [facility] [address] [place] [address] Dr. Juan Zamarripa IG # 0.02 10e3/ul Normal 0.00-0.03 [facility] Comment on above: Performed By: #### L IPA, HSTROPN, TSH, CMP #### [facility] [address] [place] [address] Dr. Juan Zamarripa IG % 0.3 % Normal 0.0-0.5 [facility] Comment on above: Performed By: #### L IPA, HSTROPN, TSH, CMP #### [facility] [address] [place] [address] Dr. Juan Zamarripa LYMPH # 3.1 103/ul Normal 1.2-3.8 [facility] Comment on above: Performed By: #### L IPA, HSTROPN, TSH, CMP #### [facility] [address] [place] [address] Dr. Juan Zamarripa Lymphocytes/100 WBC (Bld) 40.5 % Normal 20.5-60.0 [facility] Comment on above: Performed By: #### L IPA, HSTROPN, TSH, CMP #### [facility] [address] [place] [address] Dr. Juan Zamarripa MANUAL DIFF REQ NO Normal [facility] Comment on above: Performed By: #### L IPA, HSTROPN, TSH, CMP #### [facility] [address] [place] [address] Dr. Juan Zamarripa MCH (RBC) [Entitic mass] 32.3 pg Normal 26.7-34.0 [facility] Comment on above: Performed By: #### L IPA, HSTROPN, TSH, CMP #### [facility] [address] [place] [address] Dr. Juan Zamarripa MCHC (RBC) [Mass/Vol] 34.4 g/dL Normal 29.9-35.2 [facility] Comment on above: Performed By: #### L IPA, HSTROPN, TSH, CMP #### [facility] [address] [place] [address] Dr. Juan Zamarripa MCV (RBC) [Entitic vol] 93.9 fL Normal 81.0-99.0 [facility] Comment on above: Performed By: #### L IPA, HSTROPN, TSH, CMP #### [facility] [address] [place] [address] Dr. Juan Zamarripa MONO # 0.3 103/ul Normal 0.3-0.8 [facility] Comment on above: Performed By: #### L IPA, HSTROPN, TSH, CMP #### [facility] [address] [place] [address] Dr. Juan Zamarripa Monocytes/100 WBC (Bld) 4.2 % Normal 1.7-12.0 [facility] Comment on above: Performed By: #### L IPA, HSTROPN, TSH, CMP #### [facility] [address] [place] [address] Dr. Juan Zamarripa NEUT # 4.0 103/ul Normal 1.4-6.5 [facility] Comment on above: Performed By: #### L IPA, HSTROPN, TSH, CMP #### [facility] [address] [place] [address] Dr. Juan Zamarripa Neutrophils/100 WBC (Bld) 52.7 % Normal 43.0-75.0 [facility] Comment on above: Performed By: #### L IPA, HSTROPN, TSH, CMP #### [facility] [address] [place] [address] Dr. Juan Zamarripa Platelet mean volume (Bld) [Entitic vol] 9.7 fL Normal 9.5-13.5 [facility] Comment on above: Performed By: #### L IPA, HSTROPN, TSH, CMP #### [facility] [address] [place] [address] Dr. Juan Zamarripa PLT 164 103/ul Normal 150-450 [facility] Comment on above: Performed By: #### L IPA, HSTROPN, TSH, CMP #### [facility] [address] [place] [address] Dr. Juan Zamarripa RBC 4.24 106/ul Normal 4.20-5.40 [facility] Comment on above: Performed By: #### L IPA, HSTROPN, TSH, CMP #### [facility] [address] [place] [address] Dr. Juan Zamarripa WBC 7.6 103/ul Normal 4.0-11.0 [facility] Comment on above: Performed By: #### L IPA, HSTROPN, TSH, CMP #### [facility] [address] [address] [address] Juan Zamarripa FREE T4on 08-17-2021 Free T4 [Mass/Vol] 1.00 ng/dL Normal 0.76-1.46 [facility] Comment on above: Performed By: #### C BC #### [facility] [address] [address] [address] Juan Zamarripa GLYCOHEMOGLOBIN A1Con 2021 ADA RECOMMENDATION SEE BELOW Normal [facility] Comment on above: Result Comment: ADA RECOMMENDED LIMIT 4.0 - 6.0 ADA THERAPEUTIC TARGET < 7.0 ACTION SUGGESTED > 7.0 Performed By: #### A 1C #### [facility] [address] [place] [address] Dr. Juan Zamarripa Glucose [Mass/Vol] 140 mg/dL Normal [facility] Comment on above: Performed By: #### A 1C #### [facility] [address] [place] [address] Dr. Juan Zamarripa HbA1c (Bld) [Mass fraction] 6.5 % Critically high 4.5-6.2 [facility] Comment on above: Performed By: #### A 1C #### [facility] [address] [place] [address] Dr. Juan Zamarripa LIPID PROFILEon 08-17-2021 CHOL-HDL RATIO NORM SEE BELOW Normal [facility] Comment on above: Result Comment: 3.3 - 4.4 LOW RISK 4.4 - 7.1 AVERAGE RISK 7.1 - 11.0 MODERATE RISK >11.0 HIGH RISK Performed By: #### L IPA, HSTROPN, TSH, CMP #### [facility] [address] [place] [address] Dr. Juan Zamarripa Cholesterol [Mass/Vol] 115 mg/dL Normal <=200 [facility] Comment on above: Performed By: #### L IPA, HSTROPN, TSH, CMP #### [facility] [address] [place] [address] Dr. Juan Zamarripa Cholesterol in HDL [Mass/Vol] 40 mg/dL Normal 40-60 [facility] Comment on above: Performed By: #### L IPA, HSTROPN, TSH, CMP #### [facility] [address] [address] [address] Juan Zamarripa Cholesterol in LDL [Mass/Vol] 53.6 mg/dL Normal [facility] Comment on above: Performed By: #### L IPA, HSTROPN, TSH, CMP #### [facility] [address] [address] [address] Juan Zamarripa Cholesterol.total/Amanda sterol in HDL [Mass ratio] 2.9 {ratio} Normal [facility] Comment on above: Performed By: #### L IPA, HSTROPN, TSH, CMP #### [facility] [address] [address] [address] Juan Zamarripa HDL NORMAL > or = 60 mg/dl - LO W CARDIOVASCULAR RISK <40 mg/dl - HIGH CARDIOVASCULAR RISK Normal [facility] Comment on above: Performed By: #### L IPA, HSTROPN, TSH, CMP #### [facility] [address] [address] [address] Juan Zamarripa LDL CALC NORMAL SEE BELOW Normal [facility] Comment on above: Result Comment: <100 mg/dl OPTIMAL 100 - 129 mg/dl NEAR OR ABOVE OPTIMAL 130 - 159 mg/dl BORDERLINE HIGH 160 - 189 mg/dl HIGH >190 mg/dl VERY HIGH Performed By: #### L IPA, HSTROPN, TSH, CMP #### [facility] [address] [address] [address] Juan Zamarripa Triglyceride [Mass/Vol] 107 mg/dL Normal <=150 T [facility] Comment on above: Performed By: #### L IPA, HSTROPN, TSH, CMP #### [facility] [address] [address] [address] Juan Zamarripa VLDL CALC 21.4 mg/dL Normal [facility] Comment on above: Performed By: #### L IPA, HSTROPN, TSH, CMP #### [facility] [address] [place] [address] Dr. Juan Zamarripa PROF 14(COMP METB)on 022 Albumin [Mass/Vol] 4.1 g/dL Normal 3.4-5.0 [facility] Comment on above: Performed By: #### L IPA, HSTROPN, TSH, CMP #### [facility] [address] [place] [address] Dr. Juan Zamarripa Albumin/Globulin [Mass ratio] 1.1 {ratio} Normal [facility] Comment on above: Performed By: #### L IPA, HSTROPN, TSH, CMP #### [facility] [address] [place] [address] Dr. Juan Zamarripa ALP [Catalytic activity/Vol] 94 U/L Normal 46-116 [facility] Comment on above: Performed By: #### L IPA, HSTROPN, TSH, CMP #### [facility] [address] [place] [address] Dr. Juan Zamarripa ALT [Catalytic activity/Vol] 61 U/L Critically high 14-59 [facility] Comment on above: Performed By: #### L IPA, HSTROPN, TSH, CMP #### [facility] [address] [place] [address] Dr. Juan Zamarripa Anion gap [Moles/Vol] 16.5 mmol/L Normal [facility] Comment on above: Performed By: #### L IPA, HSTROPN, TSH, CMP #### [facility] [address] [place] [address] Dr. Juan Zamarripa AST [Catalytic activity/Vol] 24 U/L Normal 15-37 [facility] Comment on above: Performed By: #### L IPA, HSTROPN, TSH, CMP #### [facility] [address] [place] [address] Dr. Juan Zamarripa Bilirubin [Mass/Vol] 0.7 mg/dL Normal 0.2-1.0 [facility] Comment on above: Performed By: #### L IPA, HSTROPN, TSH, CMP #### [facility] [address] [place] [address] Dr. Juan Zamarripa Calcium [Mass/Vol] 9.1 mg/dL Normal 8.5-10.1 [facility] Comment on above: Performed By: #### L IPA, HSTROPN, TSH, CMP #### [facility] Laboratory [address] [address] [address] Juan Zamarripa Chloride [Moles/Vol] 103 mmol/L Normal 98-107 [facility] Comment on above: Performed By: #### L IPA, HSTROPN, TSH, CMP #### [facility] [address] [address] [address] Juan Zamarripa CO2 [Moles/Vol] 25.4 mmol/L Normal 21.0-32.0 [facility] Comment on above: Performed By: #### L IPA, HSTROPN, TSH, CMP #### [facility] [address] [address] [address] Juan Zamarripa Creatinine [Mass/Vol] 0.87 mg/dL Normal 0.55-1.02 [facility] Comment on above: Performed By: #### L IPA, HSTROPN, TSH, CMP #### [facility] [address] [address] [address] Juan Zamarripa EGFR-AF ALGERIAN >60 Normal >=60 [facility] Comment on above: Performed By: #### L IPA, HSTROPN, TSH, CMP #### [facility] [address] [address] [address] Juan Zamarripa EGFR-NON AF ALGERIAN >60 Normal >=60 [facility] Comment on above: Performed By: #### L IPA, HSTROPN, TSH, CMP #### [facility] [address] [address] [address] Juan Zamarripa Globulin (S) [Mass/Vol] 3.9 g/dL Normal [facility] Comment on above: Performed By: #### L IPA, HSTROPN, TSH, CMP #### [facility] [address] [address] [address] Juan Zamarripa Glucose [Mass/Vol] 157 mg/dL Critically high 74-106 [facility] Comment on above: Performed By: #### L IPA, HSTROPN, TSH, CMP #### [facility] [address] [place] [address] Dr. Juan Zamarripa Potassium [Moles/Vol] 4.4 mmol/L Normal 3.5-5.1 [facility] Comment on above: Performed By: #### L IPA, HSTROPN, TSH, CMP #### [facility] [address] [address] [address] Juan Zamarripa Protein [Mass/Vol] 8.0 g/dL Normal 6.4-8.2 [facility] Comment on above: Performed By: #### L IPA, HSTROPN, TSH, CMP #### [facility] [address] [place] [address] Dr. Juan Zamarripa Sodium [Moles/Vol] 141 mmol/L Normal 136-145 [facility] Comment on above: Performed By: #### L IPA, HSTROPN, TSH, CMP #### [facility] [address] [address] [address] Juan Zamarripa Urea nitrogen [Mass/Vol] 21.0 mg/dL Critically high 7.0-18.0 [facility] Comment on above: Performed By: #### L IPA, HSTROPN, TSH, CMP #### [facility] [address] [place] [address] Dr. Juan Zamarripa Urea nitrogen/Creatinine [Mass ratio] 24.1 mg/mg Normal [facility] Comment on above: Performed By: #### L IPA, HSTROPN, TSH, CMP #### [facility] [address] [place] [address] Dr. Juan Zamarripa TSHon 08-17-2021 TSH 1.503 uIU/mL Normal 0.358-3.74 0 [facility] Comment on above: Performed By: #### L IPA, HSTROPN, TSH, CMP #### [facility] [address] [place] [address] Dr. Juan Zamarripa TSH RANGE SEE BELOW Normal [facility] Comment on above: Result Comment: <0.3 4 UIU/ml HYPERTHYROID 0.34-5.60 UIU/ml EUTHYROID >5.60 UIU/ml HYPOTHYROID Performed By: #### L IPA, HSTROPN, TSH, CMP #### [facility] [address] [address] [address] Juan Weinstein 08-11-2021 CNPN Telephone (NCCAP) -------- IVELISSE GEE ([id number]) 1950 F Date Time Provider Department 08/11/21 MEHRDAD AGUILAR NCCJERMAINE During your visit today, we recorded the following information about you: Marta Cuellar [facility] 08/11/2021 12:14 PM Signed Called [...] Status:Closed by MARTA GARCES on 08/11/21 Normal [facility] [id number] QUANTITA TIONon 10-13-2020 [id number] (AAT) PHENOTYPE SEE NOTE Normal [facility] Comment on above: Order Comment: FASTI NG:YES FASTING: YES Result Comment: THIS PATIENT'S BXBFP-6-[id number] PHENOTYPE IS PI*MM. 90% of normal individuals have the MM phenotype, with normal quantitative AAT levels. Many phenotypic patterns have been described, including deficiency states with F, S, Z, or other alleles. As a general estimation, compared to M allele of 100% of normal P-8-Bopwzczamnb protein, the S allele produces approximately 60% and the Z allele 20%. For example, an MS phenotype would have about 80% of normal E-5-Lpdkxpwogeg protein level, a 50% contribution from the M allele and 30% from the S allele. A ZZ phenotype would have about 20% of normal levels, a 10% contribution from each Z gene. The F allele has normal X-1-Zzehfsmptyc levels, but the kinetics of elastase inhibition [...] alleles are generally considered normal variants. The MZ-Wraner phenotype is a normal variant; care should be taken to avoid confusion with the deficient MZ phenotype. Performed By: #### 2 63, 457, 55584, 4527, 508, 498, 326, 8472, 496, 249, 04465, 259 #### [facility] [address], [address] [place] [address] Balance Staff Staker: Kush Hines MD #### [id number] #### [facility], [address] [place] [address] Balance Staff Staker: Susan Sheikh MD,PhD,JAY #### [id number], 53096 #### [facility] [address] [facility] [place] Balance Staff Staker: Parrish Gloria M.D.,PhD [id number] QN 170 mg/dL Normal 83-199 [facility] Comment on above: Order Comment: FASTI NG:YES FASTING: YES Performed By: #### 2 63, 457, 94325, 7573, 508, 498, 326, 8472, 496, 249, 46911, 259 #### [facility] [address], [address] [place] [address] Balance Staff Staker: Kush Hines MD #### [id number] #### [facility], [address] [place] [address] Balance Staff Staker: Susan Sheikh MD,PhD,AJY #### [id number], 68048 #### [facility] [address] [facility] [place] Balance Staff Staker: Parrish Gloria M.D.,PhD TL SCREEN, IFA, W/REFL [...] AC-0: Negative International Consensus on TL Patterns (https://doi.org/10.1515/mflq-8331-2670) For additional information, please refer to http://education.AudioBoo.SnapMD/faq/PMN921 (This link is being provided for informational/ educational purposes only.) Performed By: #### 2 63, 457, 34133, 7573, 508, 498, 326, 8472, 496, 249, 52718, 259 #### [facility] [address], [address] [place] [address] Balance Staff Staker: Kush Hines MD #### [id number] #### [facility], [address] [address] Balance Staff Staker: Susan Sheikh MD,PhD,JAY #### [id number], 09208 #### [facility]/[id number] [facility] [place] Balance Staff Staker: Parrish Gloria M.D.,PhD CELIAC DISEASE COMPREHENSIVE PANELon 10-13-2020 IMMUNOGLOBULIN A 185 mg/dL Normal 70-320 [facility] Comment on above: Performed By: #### 2 63, 457, 18331, 7573, 508, 498, 326, 8472, 496, 249, 36075, 259 #### [facility] [address], [address] [place] [address] Balance Staff Staker: Kush Hines MD #### [id number] #### [facility], [address] [phone] Balance Staff Staker: Susan Sheikh MD,PhD,JAY #### [phone], 02060 #### [facility]/[id number] [facility] [place] Balance Staff Staker: Parrish Gloria M.D.,PhD INTERPRETATION see note Normal [...] DQ8. Performed By: #### 2 63, 457, 88989, 7573, 508, 498, 326, 8472, 496, 249, 94573, 259 #### [facility] [address], [address] [place] [address] Balance Staff Staker: Kush Hines MD #### [id number] #### [facility], [address] [place] [address] Balance Staff Staker: Susan Sheikh MD,PhD,JAY #### 52265, 42309 #### [id number] [facility] [place] Balance Staff Staker: Parrish Gloria M.D.,PhD TISSUE TRANSGLUTAMINASE AB, IGA 2 U/mL Normal <4 [facility] Comment on above: Result Comment: Value Interpretation <4 U/mL: No Antibody Detected >or=4 U/mL: Antibody Detected Performed By: #### 2 63, 457, 25179, 7573, 508, 498, 326, 8472, 496, 249, 11198, 259 #### [facility] [address], [address] [place] [address] Balance Staff Staker: Kush Hines MD #### [id number] #### [facility], [address] [place] [address] Balance Staff Staker: Susan Sheikh MD,PhD,JAY #### [phone], 99030 #### [facility] [address] [facility] [place] Balance Staff Staker: Parrish Gloria M.D.,PhD CERULOPLASMINon 10-13-2020 CERULOPLASMIN 31 mg/dL Normal 18-53 [facility] Comment on above: Performed By: #### 2 63, 457, 78074, 7573, 508, 498, 326, 8472, 496, 249, 97013, 259 #### [facility] [address], [address] [place] [address] Balance Staff Staker: Kush Hines MD #### 35196 #### [facility], [address] [phone] Balance Staff Staker: Susan Sheikh MD,PhD,JAY #### 95405, 35257 #### [facility] [address] [facility] [address] [place] Balance Staff Staker: Parrish Gloria M.D.,PhD FERRITINon 10-13-2020 Ferritin [Mass/Vol] 70 ng/mL Normal 16-288 [facility] Comment on above: Performed By: #### 2 63, 457, 81813, 7573, 508, 498, 326, 8472, 496, 249, 59377, 259 #### [facility] [address], [address] [place] [address] Balance Staff Staker: Kush Hines MD #### 47115 #### [facility], [address] [phone] Balance Staff Staker: Susan Sheikh MD,PhD,JAY #### 58455, 91292 #### [facility] [address] [facility] [place] Balance Staff Staker: Parrish Gloria M.D.,PhD HEMOGLOBIN A1con 10-13-2020 HEMOGLOBIN [...] children. Performed By: #### 2 63, 457, 05459, 7573, 508, 498, 326, 8472, 496, 249, 34587, 259 #### [facility] [address], [address] [place] [address] Balance Staff Staker: Kush Hines MD #### [id number] #### [facility], [address] [place] [address] Balance Staff Staker: Susan Sheikh MD,PhD,JAY #### 26356, 36635 #### [facility] [address] [facility] [place] Balance Staff Staker: Parrish Gloria M.D.,PhD HEPATITIS A AB, TOTALon 07-0 HEPATITIS A AB, TOTAL Reactive Abnormal NON-RE ACTI VE [facility] Comment on above: Result Comment: For additional information, please refer to http://education.Ynsect.SnapMD/faq/OIL210 (This link is being provided for informational/ educational purposes only.) Performed By: #### 2 63, 457, 38837, 7573, 508, 498, 326, 8472, 496, 249, 29890, 259 #### [facility] [address], [address] [place] [address] Balance Staff Staker: Kush Hines MD #### [id number] #### [facility], [address] [place] [address] Balance Staff Staker: Susan Sheikh MD,PhD,JAY #### 52074, 35014 #### [facility] [address] [facility] [place] Balance Staff Staker: Parrish Gloria M.D.,PhD HEPATITIS B CORE AB TOTAL W/ REFL IGMon 10-13-2020 HEPATITIS B CORE AB TOTAL Non-Reactive Normal NON-REACTI VE [facility] Comment on above: Performed By: #### 2 63, 457, 43503, 7573, 508, 498, 326, 8472, 496, 249, 49256, 259 #### [facility] [address], [address] [place] [address] Balance Staff Staker: Kush Hines MD #### [id number] #### [facility], [address] [address] Balance Staff Staker: Susan Sheikh MD,PhD,JAY #### 05034, 45323 #### [id number] [facility] [place] Balance Staff Staker: Parrish Gloria M.D.,PhD HEPATITIS B SURFACE ANTIBODY QLon 10-13-2020 HEPATITIS B SURFACE ANTIBODY QL Non-Reactive Normal NON-REACTI VE [facility] Comment on above: Performed By: #### 2 63, 457, 90937, 7573, 508, 498, 326, 8472, 496, 249, 24514, 259 #### [facility] [address], [address] [place] [address] Balance Staff Staker: Kush Hines MD #### 09297 #### [facility], [address] [place], [place] Balance Staff Staker: Susan Sheikh MD,PhD,JAY #### 95627, 29371 #### [id number] [facility] [place] Balance Staff Staker: Parrish Gloria M.D.,PhD HEPATITIS B SURFACE ANTIGEN W/REFL CONFIRMon 10-13-2020 HEPATITIS B SURFACE ANTIGEN Non-Reactive Normal NON-REACTI VE [facility] Comment on above: Performed By: #### 2 63, 457, 20215, 7573, 508, 498, 326, 8472, 496, 249, 26034, 259 #### [facility] [address] [place] [address], [address] [place] [address] Balance Staff Staker: Kush Hines MD #### [id number] #### [facility], [address] [place] [address] Balance Staff Staker: Susan Sheikh MD,PhD,JAY #### 78814, 99991 #### [id number] [facility] [address] Balance Staff Staker: Parrish Gloria M.D.,PhD HEPATITIS C AB W/REFL TO HCV RNA, QN, PCRon 10-13-2020 HEPATITIS C ANTIBODY Non-Reactive Normal NON-CHARMAINE CTI VE [facility] Comment on above: Performed By: #### 2 63, 457, 47938, 7573, 508, 498, 326, 8472, 496, 249, 08603, 259 #### [facility] [address] [facility], [address] [place] [address] Balance Staff Staker: Kush Hines MD #### [id number] #### [facility], [address] [place] [address] Balance Staff Staker: Susan Sheikh MD,PhD,JAY #### 30153, 53905 #### [facility] [address] [facility] [address] Balance Staff Staker: Parrish Gloria M.D.,PhD INDEX 0.02 Normal <1.00 [facility] Comment on above: Result Comment: HCV antibody was non-reactive. There is no laboratory evidence of HCV infection. In most cases, no further action is required. However, if recent HCV exposure is suspected, a test for HCV RNA (test code 06831) is suggested. For additional information please refer to http://education.AdStage/faq/DWG82s1 (This link is being provided for informational/ educational purposes only.) Performed By: #### 2 63, 457, 79857, 7573, 508, 498, 326, 8472, 496, 249, 04969, 259 #### [facility] [address], [address] [place] [address] Balance Staff Staker: Kush Hines MD #### 52026 #### [facility], [address] [place] [address] Balance Staff Staker: Susan Sheikh MD,PhD,JAY #### 07152, 76995 #### [facility] [place] Balance Staff Staker: Parrish Gloria M.D.,PhD IRON AND TOTAL IRON BINDING CAPACITYon 10-13-2020 % SATURATION 19 % (calc) Normal 16-45 [facility] Comment on above: Performed By: #### 2 63, 457, 16206, 7573, 508, 498, 326, 8472, 496, 249, 47593, 259 #### [facility] [address], [address] [place] [address] Balance Staff Staker: Kush Hines MD #### 16616 #### [facility], [address] [place] [address] Balance Staff Staker: Susan Sheikh MD,PhD,JAY #### 70126, 36409 #### [facility] [address] [facility] [place] Balance Staff Staker: Parrsih Gloria M.D.,PhD IRON BINDING CAPACITY 372 mcg/dL (calc) Normal 250-450 [facility] Comment on above: Performed By: #### 2 63, 457, 85755, 7573, 508, 498, 326, 8472, 496, 249, 37848, 259 #### [facility] of [address] , [address] [place] [address] Balance Staff Staker: Kush Hines MD #### 12435 #### [facility], [address] [address] Balance Staff Staker: Susan Sheikh MD,PhD,JAY #### 57413, 68475 #### [id number] [facility] [place] Balance Staff Staker: Parrish Gloria M.D.,PhD IRON, TOTAL 70 mcg/dL Normal 45-160 [facility] Comment on above: Performed By: #### 2 63, 457, 61291, 7573, 508, 498, 326, 8472, 496, 249, 72153, 259 #### [facility] [address], [address] [place] [address] Balance Staff Staker: Kush Hines MD #### 56355 #### [facility], [address] [phone] Balance Staff Staker: Susan Sheikh MD,PhD,JAY #### 09389, 93933 #### [facility] [address] [facility] [place] Balance Staff Staker: Parrish Gloria M.D.,PhD LIVER KIDNEY MICROSOME (LKM- [...] infection. Performed By: #### 2 63, 457, 62957, 7573, 508, 498, 326, 8472, 496, 249, 68705, 259 #### [facility] [address] [address] Balance Staff Staker: Kush Hines MD #### 84722 #### [facility], [address] [place] [address] Balance Staff Staker: Susan Sheikh MD,PhD,JAY #### 54793, 25752 #### [facility]/[id number] [facility] [place] Balance Staff Staker: Parrish Gloria M.D.,PhD MITOCHONDRIAL ANTIBODY W/REF L TITERon 10-13-2020 MITOCHONDRIAL AB SCREEN Negative Normal NEGATIVE Q [facility] Comment on above: Performed By: #### 2 63, 457, 03642, 7573, 508, 498, 326, 8472, 496, 249, 71323, 259 #### [facility] [address] [address] Balance Staff Staker: Kush Hines MD #### 65679 #### [facility], [address] [place] [address] Balance Staff Staker: Susan Sheikh MD,PhD,JAY #### 87890, 16331 #### [facility]/[id number] [facility] [place] Balance Staff Staker: Parrish Gloria M.D.,PhD SMOOTH MUSCLE AB W/REFL TITE Butch 10-13-2020 SMOOTH MUSCLE AB SCREEN Negative Normal NEGATIVE Q [facility] Comment on above: Performed By: #### 2 63, 457, 54199, 7573, 508, 498, 326, 8472, 496, 249, 50028, 259 #### [facility] [address], [address] [place], [place] [address] Balance Staff Staker: Kush Hines MD #### 78251 #### [facility] [address] [place] [address] Balance Staff Staker: Susan Sheikh MD,PhD,JAY #### 40986, 12078 #### [facility]/[id number] [facility] [place] Balance Staff Staker: Parrish Gloria M.D.,PhD TSH W/REFLEX TO FT4on 2020 TSH W/REFLEX TO FT4 3.10 mIU/L Normal 0.40-4.50 [facility] Comment on above: Performed By: #### 2 63, 457, 70894, 7573, 508, 498, 326, 8472, 496, 249, 07957, 259 #### [facility] [address], [address] [place] [address] Balance Staff Staker: Kush Hines MD #### 47261 #### [facility] [address] [place] [address] Balance Staff Staker: Susan Sheikh MD,PhD,JAY #### 29391, 23514 #### [id number] [facility] [place] Balance Staff Staker: Parrish Gloria M.D.,PhD CNOVSPon 09-30-2020 CNOVS Visit (SP) Office ([place]) -------- IVELISSE GEE ([id number]) 1950 F Date Time Provider Department 09/30/20 1:30 PM MEHRDAD AGUILAR During your visit today, we recorded the following information about you: Temperature Pulse Respiration Blood pressure 97.2 degrees 71/minute 18/minute 121/54 Weight Height 73.6 kg 1.57 m Mehrdad Aguilar MD 10/02/2020 5:36 PM Signed PATIENT NAME: Ivelisse Gee DATE: 09/30/2020 PRIMARY CARE PHYSICIAN: Carmen Conley MD OTHER PHYSICIANS: Dr. Wahl (PCP [place], [place]), Dr. Magdaleno Castillo ([facility]) Portions of this encounter note have [...] BP 121/ (more content not included)... Normal [facility] Albumin/Creat Ratioon 2020 Albumin Urine Random <12.0 Normal [facility] Comment on above: Performed By: #### C MP, INSLAB, LIPB, CPEPT, GADCAB, B12, VITD, UACR ####[id number] [phone] Albumin/Creat Ratio Not calculated Normal <30 [facility] Comment on above: Performed By: #### C MP, INSLAB, LIPB, CPEPT, GADCAB, B12, VITD, UACR ####[address] [place], [place] [phone] Creatinine,Urine,Ran 53.8 mg/dL Normal 20-300 [facility] Comment on above: Performed By: #### C MP, INSLAB, LIPB, CPEPT, GADCAB, B12, VITD, UACR ####[address], [place] [phone] C-Peptideon 09-27-2020 C-Peptide 1.8 ng/mL Normal 0.8-3.9 [facility] Comment on above: Performed By: #### C MP, INSLAB, LIPB, CPEPT, GADCAB, B12, VITD, UACR ####[address] [address] [address] [place], [place] [phone] CBC and Differentialon 09-27 Abs Baso 0.03 k/uL Normal <0.11 [facility] Abs [place] 0.33 k/uL Normal <0.87 [facility] Abs Neut 4.29 k/uL Normal 1.45-7.50 [facility] Absolute nRBC <0.01 Normal <0.01 [facility] Basophils/100 WBC (Bld) 0.4 % Normal [facility] DTYPE Auto Diff Normal [facility] Eosinophils (Bld) [#/Vol] 0.12 10*3/uL Normal <0.46 [facility] Eosinophils/100 WBC (Bld) 1.5 % Normal [facility] Erythrocyte distribution width (RBC) [Ratio] 13.0 % Normal 11.5-15.0 [facility] Hematocrit (Bld) [Volume fraction] 37.3 % Normal 36.0-46.0 [facility] Hemoglobin (Bld) [Mass/Vol] 13.0 g/dL Normal 11.5-15.5 [facility] Lymphocytes (Bld) [#/Vol] 3.40 10*3/uL Normal 1.00-4.00 [facility] Lymphocytes/100 WBC (Bld) 41.6 % Normal [facility] MCH 31.9 pG Normal 26.0-34.0 [facility] MCHC (RBC) [Mass/Vol] 34.9 g/dL Normal 30.5-36.0 [facility] MCV (RBC) [Entitic vol] 91.4 fL Normal 80.0-100.0 [facility] Monocytes/100 WBC (Bld) 4.0 % Normal [facility] Neutrophils/100 WBC (Bld) 52.5 % Normal [facility] NRBCs 0.0 /100 WBC Normal 0 [facility] Platelet mean volume (Bld) [Entitic vol] 9.6 fL Normal 9.0-12.7 [facility] Platelets (Bld) [#/Vol] 164 10*3/uL Normal 150-400 [facility] RBC (Bld) [#/Vol] 4.08 10*6/uL Normal 3.90-5.20 [facility] WBC (Bld) [#/Vol] 8.18 10*3/uL Normal 3.70-11.00 [facility] Comp Metabolic Panelon 09-27 Albumin [Mass/Vol] 4.4 g/dL Normal 3.9-4.9 [facility] Comment on above: Performed By: #### C MP, INSLAB, LIPB, CPEPT, GADCAB, B12, VITD, UACR ####[facility] [id number] [phone] ALP [Catalytic activity/Vol] 88 U/L Normal 34-123 [facility] Comment on above: Performed By: #### C MP, INSLAB, LIPB, CPEPT, GADCAB, B12, VITD, UACR ####[address] [address] [address] [place], [place] [phone] ALT [Catalytic activity/Vol] 63 U/L High 7-38 [facility] Comment on above: Performed By: #### C MP, INSLAB, LIPB, CPEPT, GADCAB, B12, VITD, UACR ####[address] [phone] Anion gap [Moles/Vol] 12 mmol/L Normal 9-18 [facility] Comment on above: Performed By: #### C MP, INSLAB, LIPB, CPEPT, GADCAB, B12, VITD, UACR ####[address] [phone] AST [Catalytic activity/Vol] 42 U/L High 13-35 [facility] Comment on above: Performed By: #### C MP, INSLAB, LIPB, CPEPT, GADCAB, B12, VITD, UACR ####[address] [phone] Bilirubin [Mass/Vol] 0.6 mg/dL Normal 0.2-1.3 [facility] Comment on above: Performed By: #### C MP, INSLAB, LIPB, CPEPT, GADCAB, B12, VITD, UACR ####[address] [phone] Calcium [Mass/Vol] 9.2 mg/dL Normal 8.5-10.2 [facility] Comment on above: Performed By: #### C MP, INSLAB, LIPB, CPEPT, GADCAB, B12, VITD, UACR ####[facility] [place], [place] [phone] Chloride [Moles/Vol] 104 mmol/L Normal 97-105 [facility] Comment on above: Performed By: #### C MP, INSLAB, LIPB, CPEPT, GADCAB, B12, VITD, UACR ####[facility] [place], [place] [phone] Creatinine [Mass/Vol] 0.68 mg/dL Normal 0.58-0.96 [facility] Comment on above: Performed By: #### C MP, INSLAB, LIPB, CPEPT, GADCAB, B12, VITD, UACR ####[place] [address] [place], [place] [phone] Glucose [Mass/Vol] 152 mg/dL High 74-99 [facility] Comment on above: Result Comment: The [place] Diabetes Association (ADA) provides guidance for cutoff [...] Standards of Medical Care in Diabetes 2016, [place] Diabetes Association. Diabetes Care. 2016.39(Suppl 1). Performed By: #### C MP, INSLAB, LIPB, CPEPT, GADCAB, B12, VITD, UACR ####[place] [address] [place], [place] [phone] Potassium [Moles/Vol] 4.3 mmol/L Normal 3.7-5.1 [facility] Comment on above: Performed By: #### C MP, INSLAB, LIPB, CPEPT, GADCAB, B12, VITD, UACR ####[facility] [place], [place] [phone] Sodium [Moles/Vol] 140 mmol/L Normal 136-144 [facility] Comment on above: Performed By: #### C MP, INSLAB, LIPB, CPEPT, GADCAB, B12, VITD, UACR ####[facility] [place], [place] [phone] Urea nitrogen [Mass/Vol] 14 mg/dL Normal 7-21 [facility] Comment on above: Performed By: #### C MP, INSLAB, LIPB, CPEPT, GADCAB, B12, VITD, UACR ####[facility] [place], [place] [phone] Albumin [Mass/Vol] 4.5 g/dL Normal 3.9-4.9 [facility] ALP [Catalytic activity/Vol] 83 U/L Normal 34-123 [facility] ALT [Catalytic activity/Vol] 58 U/L High 7-38 [facility] Anion gap [Moles/Vol] 11 mmol/L Normal 9-18 [facility] AST [Catalytic activity/Vol] 34 U/L Normal 13-35 [facility] Bilirubin [Mass/Vol] 0.7 mg/dL Normal 0.2-1.3 [facility] Calcium [Mass/Vol] 9.5 mg/dL Normal 8.5-10.2 [facility] Chloride [Moles/Vol] 103 mmol/L Normal 97-105 [facility] CO2 [Moles/Vol] 24 mmol/L Normal 22-30 [facility] Comment on above: Performed By: #### C MP, INSLAB, LIPB, CPEPT, GADCAB, B12, VITD, UACR ####[facility] [place], [place] [phone] Creatinine [Mass/Vol] 0.67 mg/dL Normal 0.58-0.96 [facility] eGFR- Amer. >60 Normal [facility] Comment on above: Performed By: #### C MP, INSLAB, LIPB, CPEPT, GADCAB, B12, VITD, UACR ####[facility] [place], [place] [phone] eGFR-All Other Races >60 Normal [facility] Comment on above: Result Comment: eGFR (Estimated [...] INSLAB, LIPB, CPEPT, GADCAB, B12, VITD, UACR ####[facility] [place], [place] [phone] Glucose [Mass/Vol] 161 mg/dL High 74-99 [facility] Comment on above: Result Comment: The [place] Diabetes Association (ADA) provides guidance for cutoff [...] Standards of Medical Care in Diabetes 2016, [place] Diabetes Association. Diabetes Care. 2016.39(Suppl 1). Potassium [Moles/Vol] 4.1 mmol/L Normal 3.7-5.1 [facility] Protein [Mass/Vol] 7.2 g/dL Normal 6.3-8.0 [facility] Comment on above: Performed By: #### C MP, INSLAB, LIPB, CPEPT, GADCAB, B12, VITD, UACR ####[facility], [place] [phone] Sodium [Moles/Vol] 138 mmol/L Normal 136-144 [facility] Urea nitrogen [Mass/Vol] 13 mg/dL Normal 7-21 [facility] Glutamic Ac Decar Abon 09-27 Glutam Ac Dec Ab Ql Negative Normal Negative [facility] Comment on above: Performed By: #### C MP, INSLAB, LIPB, CPEPT, GADCAB, B12, VITD, UACR ####[place] [address], [place] [phone] Glutamic Ac Decar Ab <5.0 Normal <5.1 [facility] Comment on above: Performed By: #### C MP, INSLAB, LIPB, CPEPT, GADCAB, B12, VITD, UACR ####[place] [address] [place], [place] [phone] Insulin Autoantibodyon 09-27 Insulin Ab Ql Negative Normal Negative [facility] Comment on above: Performed By: #### C MP, INSLAB, LIPB, CPEPT, GADCAB, B12, VITD, UACR ####[place] [address] [place], [place] [phone] Insulin Antibody <0.4 Normal <0.4 [facility] Comment on above: Performed By: #### C MP, INSLAB, LIPB, CPEPT, GADCAB, B12, VITD, UACR ####[place] [address], [place] [phone] Lipid Panel, Bas[place] 021 Cholesterol [Mass/Vol] 110 mg/dL Normal <200 [facility] Comment on above: Result Comment: <200 mg/dL, Desirable 200-239 mg/dL, Borderline high >239 mg/dL, High Performed By: #### C MP, INSLAB, LIPB, CPEPT, GADCAB, B12, VITD, UACR ####[place] [address] [place], [place] [phone] Cholesterol in HDL [Mass/Vol] 37 mg/dL Low >39 [facility] Comment on above: Result Comment: 40-5 9 mg/dL, Acceptable >59 mg/dL, High: Negative risk factor for coronary heart disease <40 mg/dL, Low: Positive risk factor for coronary heart disease Performed By: #### C MP, INSLAB, LIPB, CPEPT, GADCAB, B12, VITD, UACR ####[place] [phone] Cholesterol in LDL [Mass/Vol] 49 mg/dL Normal <100 [facility] Comment on above: Result Comment: <100 mg/dL, Optimal 100-129 mg/dL, Near optimal/above optimal 130-159 mg/dL, Borderline high 160-189 mg/dL, High >189 mg/dL, Very high Secondary prevention optimal LDL Cholesterol levels are recommended to be < 70 mg/dL Performed By: #### C MP, INSLAB, LIPB, CPEPT, GADCAB, B12, VITD, UACR ####[address] [phone] Fasting Time 12 hrs Normal [facility] Comment on above: Performed By: #### C MP, INSLAB, LIPB, CPEPT, GADCAB, B12, VITD, UACR ####[address] [phone] LDL:HDL Ratio 1.32 Normal <2.54 [facility] Comment on above: Result Comment: Modesta dao: 1. National Cholesterol Education Program ATP III Guideline At-A-Glance Quick Desk Reference: National Heart, Lung, and Blood [place]. National Institutes of Health. 2001: NIH Publication No. 01-3305. 2. An International Atherosclerosis Society position paper: global recommendations for the management of dyslipidemia: executive summary, Atherosclerosis. 2014: 232(2):410-413. Performed By: #### C MP, INSLAB, LIPB, CPEPT, GADCAB, B12, VITD, UACR ####[address] [place] [place], [place] [phone] Non HDL Cholesterol 73 mg/dL Normal <130 [facility] Comment on above: Result Comment: <130 mg/dL, Optimal 130-159 mg/dL, Near optimal/above optimal 160-189 mg/dL, Borderline high 190-219 mg/dL, High >219 mg/dL, Very high Secondary prevention optimal non HDL Cholesterol levels are recommended to be < 100 mg/dL Performed By: #### C MP, INSLAB, LIPB, CPEPT, GADCAB, B12, VITD, UACR ####[address] [phone] TC:HDL Ratio 2.97 Normal <5.10 [facility] Comment on above: Performed By: #### C MP, INSLAB, LIPB, CPEPT, GADCAB, B12, VITD, UACR ####[address] [phone] Triglyceride [Mass/Vol] 121 mg/dL Normal <150 [facility] Comment on above: Result Comment: <150 mg/dL, Normal 150-199 mg/dL, Borderline high 200-499 mg/dL, High >499 mg/dL, Very high Performed By: #### C MP, INSLAB, LIPB, CPEPT, GADCAB, B12, VITD, UACR ####[address] [place], [place] [phone] VLDL Cholesterol 24 mg/dL Normal <30 [facility] Comment on above: Performed By: #### C MP, INSLAB, LIPB, CPEPT, GADCAB, B12, VITD, UACR ####[address] [phone] Vitamin B12on 09-27-2020 Cobalamin (Vitamin B12) [Mass/Vol] 431 pg/mL Normal 232-1245 [facility] Comment on above: Performed By: #### C MP, INSLAB, LIPB, CPEPT, GADCAB, B12, VITD, UACR ####[facility] [place], [place] [phone] Vitamin D 25 Hydroxyon 09-27 Vitamin D 25 Hydroxy 47.2 ng/mL Normal 31.0-80.0 [facility] Comment on above: Result Comment: Clas sification of 25 [place] Vitamin D status: Insufficiency/Moderate Deficiency: < or = 30 ng/mL Sufficiency/Optimal Levels: 31 to 80 ng/mL Toxicity: > 100 ng/mL Test performed by chemiluminescent immunoassay. Performed By: #### C MP, INSLAB, LIPB, CPEPT, GADCAB, B12, VITD, UACR ####[facility] [place], [place] [phone] CNPNiki 09-22-2020 MINNAN Telephone ([place]) -------- IVELISSE GEE ([id number]) 1950 F Date Time Provider Department 09/22/20 [...] Date Reviewed: 09/22/2020 Reviewed by: Mac Perez APRN.ACID PUMPER - Fully Assessed Reason for Visit: Lab Orders [9218] Primary Visit Diagnosis:Thrombocytopen ia (HCC) [D69.6] Order(s):CBC + DIFF [SQCBCDIF] Order #: [id number] STANDING COMP METABOLIC PANEL [SQCMP] Order #: [id number] STANDING Prescriptions as of 09/22/2020 Sig: METFORMIN [...] Status:Closed by MAC PEREZ on 09/22/20 Normal [facility] MRI ABDOMEN WO/W IVCONon MRI ABDOMEN WO/W IVCON * * *Final Report * * * DATE OF EXAM: Sep 21 2020 11:45AM [facility] 0689 - MRI ABDOMEN WO/W IVCON / [...] 6 months is recommended to assess the fci stability, progression or resolution of the findings. No enhancing pancreatic mass with special attention to the head of the pancreas. 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 5 mm and 9 mm Bosniak type II hemorrhagic cysts at the midpole of the left kidney. Additional subcentimeter renal cysts. Cholecystectomy with mildly dilatation. No choledocholithiasis. Senior Product Consultant: SHAHRZAD Transcribe Date/Time: Sep 21 2020 1:58P Dictated by : ANA MARÍA ARAIZA MD This examination was interpreted and the report reviewed and electronically signed by: ANA MARÍA ARAIZA MD on Sep 21 2020 10:19PM EST [id number] Normal [facility] CNPNiki 09-01-2020 CNPN Telephone (HEMASA) -------- IVELISSE GEE ([id number]) 1950 F Date Time Provider Department 09/01/20 [...] Clerical: Please schedule pt for MRI at [facility]. Thank you. BRM: Order pending, please review and sign. MONICO Louie 09/01/2020 2:24 PM Signed Called patient to inform her that she has been scheduled for MRI @ [facility] on 09/07/20 @ 8:30am. LMOV. 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 Powder Line Repairer (topogram) images: No additional findings. IMPRESSION: 1. [...] any questions regarding this interpretation, please call [phone]. If you are unable to reach us at the number above, please feel free to contact [facility] eRadiology at [phone]. [id number] Normal [facility] Protein Electrophor.on 08-30 Albumin [Mass/Vol] 4.24 g/dL High 3.37-4.23 [facility] Comment on above: Performed By: #### S EPG ####[place] [address] [place] [phone] Alpha 1 Globulin 0.27 gm/dL Normal 0.18-0.31 [facility] Comment on above: Performed By: #### S EPG ####[address] [place] [place], [place] [phone] Alpha 2 Globulin 0.82 gm/dL Normal 0.52-0.97 [facility] Comment on above: Performed By: #### S EPG ####[facility] [address] [place], [place] [phone] Beta Globulin 1.11 gm/dL Normal 0.84-1.36 [facility] Comment on above: Performed By: #### S EPG ####[place] [address] [place], [place] [phone] Gamma Globulin 1.27 gm/dL Normal 0.70-1.44 [facility] Comment on above: Performed By: #### S EPG ####[address] [phone] Interpretation SEE COMMENT [facility] Comment on above: Result Comment: No d efinitive M protein is identified on protein electrophoresis. Performed By: #### S EPG ####[address] [phone] M Protein Location N/A [facility] Comment on above: Performed By: #### S EPG ####[address] [phone] M Shmuel Concentratn 0.00 gm/dL Normal 0.00 [facility] Comment on above: Performed By: #### S EPG ####[address] [phone] Protein [Mass/Vol] 7.7 g/dL Normal 6.3-8.0 [facility] Comment on above: Performed By: #### S EPG ####[address] [phone] SPE Staff Review Reviewed by Audelia Cabrera MD ([id number]) [facility] Comment on above: Performed By: #### S EPG ####[address] [phone] Js 08-23-2020 CNPN Telephone (GRACIEAP) -------- IVELISSE GEE ([id number]) 1950 F Date Time Provider Department 08/23/20 [...] Note Left message at Dr Magdaleno Cuello [facility]. They may ask for me. She needs to be seen for Liver cirrhosis. Please call [phone] to refer this patient if they do not call back to schedule. Tracy Gonzáles [facility] 08/24/2020 10:00 AM Signed Records and referral faxed to [facility]. Marta Cuellar Pss 08/25/2020 1:09 PM [...] Encounter Status:Closed by ADELE DELONG on 09/20/20 [facility] Js 08-22-2020 [facility] Telephone ([facility]) -------- IVELISSE GEE ([id number]) 1950 F Date Time Provider Department 08/22/20 MEHRDAD AGUILAR During your visit today, we recorded the following information about you: Allergies As of Date: 08/22/2020 Noted Allergy Reaction SULFA (SULFONAMIDE ANTIBIOTICS) 09/05/2016 10 - Anaphylaxis LATEX, NATURAL RUBBER 09/06/2016 16 - Unknown Comments: Only bandaids Date Reviewed: 08/19/2020 Reviewed by: Carlos Brewer MA - Fully Assessed Reason for Visit: Patient Question [7472] Prescriptions as of 08/22/2020 Sig: METFORMIN ER [...] Encounter Status:Closed by MARTA GARCES on 08/22/20 [facility] CNOVSPon 08-19-2020 CNOVSP Visit (SP) Office ([place]) -------- IVELISSE GEE ([id number]) 1950 F Date Time Provider Department 08/19/20 11:15 AM MEHRDAD AGUILAR During your visit today, we recorded the following information about you: Temperature Pulse Respiration Blood pressure 98.2 degrees 88/minute 16/minute 130/56 Weight Height 74 kg 1.57 m Mehrdad Aguilar MD 08/20/2020 1:40 PM Signed PATIENT NAME: Ivelisse Gee DATE: 08/19/2020 PRIMARY CARE PHYSICIAN: Carmen Conley MD OTHER PHYSICIANS: Dr. Wahl ((PCP [place], [place]) HPI: This is a 70 year [...] requiring hospitalization, most recently while residing in [place] in June 2020. During her recent hospitalization labs revealed persistent thrombocytopenia with a platelet count ranging from 80-90,000. The patient is currently referred for evaluation of her abnormal CBC. Since the patient's hospitalization she started lscm-zpp-jdovooc supplements including multivitamin. She has had no [...] intolerance, urinar (more content not included)... Normal [facility] IVELISSE GEE ([id number]) 1950 F Date Time Provider Department 08/19/20 JESSIE ACUÑA (RN) [place] During your visit today, we recorded the following information about you: Jessie Acuña 08/19/2020 12:27 PM Signed Please sign pending CAP CTs w/IVCON for Ivelisse Gee [id number] who was added to the schedule for [...] lymph node [R59.9] Order(s):CT ABD/PEL W IVCON [[id number]] Order #: [id number] FUTURE iv contrast (will be provided with [...] Status:Closed by JESSIE ACUÑA on 08/19/20 Normal [facility] Comp Metabolic Panelon 08-19 Albumin [Mass/Vol] 4.7 g/dL Normal 3.9-4.9 [facility] ALP [Catalytic activity/Vol] 93 U/L Normal 34-123 [facility] ALT [Catalytic activity/Vol] 56 U/L High 7-38 [facility] Anion gap [Moles/Vol] 12 mmol/L Normal 9-18 [facility] AST [Catalytic activity/Vol] 40 U/L High 13-35 [facility] Bilirubin [Mass/Vol] 0.9 mg/dL Normal 0.2-1.3 [facility] Calcium [Mass/Vol] 9.8 mg/dL Normal 8.5-10.2 [facility] Chloride [Moles/Vol] 102 mmol/L Normal 97-105 [facility] CO2 [Moles/Vol] 22 mmol/L Normal 22-30 [facility] Creatinine [Mass/Vol] 0.66 mg/dL Normal 0.58-0.96 [facility] eGFR- Amer. >60 Normal [facility] eGFR-All Other Races >60 Normal [facility] Comment on above: Result Comment: eGFR (Estimated [...] GFR. Glucose [Mass/Vol] 258 mg/dL High 74-99 [facility] Comment on above: Result Comment: The [place] Diabetes Association (ADA) provides guidance for cutoff [...] Standards of Medical Care in Diabetes 2016, [place] Diabetes Association. Diabetes Care. 2016.39(Suppl 1). Potassium [Moles/Vol] 4.3 mmol/L Normal 3.7-5.1 [facility] Protein [Mass/Vol] 8.0 g/dL Normal 6.3-8.0 [facility] Sodium [Moles/Vol] 136 mmol/L Normal 136-144 [facility] Urea nitrogen [Mass/Vol] 13 mg/dL Normal 7-21 [facility] Ferritinon 08-19-2020 Ferritin [Mass/Vol] 184.0 ng/mL Normal 14.7-205.1 [facility] Comment on above: Performed By: #### F ERR, IRON ####[place] [address], [place] [phone] Iron and TIBCon 08-19-2020 Iron [Mass/Vol] 116 ug/dL Normal 41-186 [facility] Comment on above: Performed By: #### F ERR, IRON ####[place] [address], [place] [phone] TIBC 357 ug/dL Normal 232-386 [facility] Comment on above: Performed By: #### F ERR, IRON ####[address] [place], [place] [phone] Transferrin Saturatn 32 % Normal 15-57 [facility] Comment on above: Performed By: #### F ERR, IRON ####[address] [place], [place] [phone] LDon 08-19-2020 LD 171 U/L Normal 135-214 [facility] Monclnl Protein, Seron 08-19 K/L Ratio, Serum 1.43 Normal 0.26-1.65 [facility] Comment on above: Performed By: #### S ERMPA, B12 ####[address] [phone] [place], Free, Serum 28.3 mg/L High 3.30-19.40 [facility] Comment on above: Result Comment: Test performed by an immunoturbidimetric assay on Teespring instrument from [facility]. Immunoglobulin free light chain assay results should be interpreted in conjunction with other tests and in correlation with clinical picture. Performed By: #### S ANGELICA B12 ####[place] [address] [place] [phone] Lambda, Free, Serum 19.8 mg/L Normal 5.7-26.3 [facility] Comment on above: Result Comment: Test performed by an immunoturbidimetric assay on Optilite instrument from [facility]. Immunoglobulin free light chain assay results should be interpreted in conjunction with other tests and in correlation with clinical picture. Performed By: #### S ANGELICA B12 ####[address] [phone] MPA Interpretation SEE COMMENT Normal [facility] Comment on above: Result Comment: Poor [...] necessary. Performed By: #### Marlee DOMINGUEZ B12 ####[address] [place] [phone] MPA Result A poorly defined reg ion of restricted mobility is present that may represent an M protein. Critically abnormal No M protein is identified . [facility] Comment on above: Performed By: #### S ANGELICA B12 ####[facility] [phone] MPA Serum IgA 196 mg/dL Normal 70-400 [facility] Comment on above: Performed By: #### S ANGELICA, B12 ####[facility] [place] [phone] MPA Serum IgG 1243 mg/dL Normal 700-1600 [facility] Comment on above: Performed By: #### S ANGELICA, B12 ####[place] [address] [place], [place] [phone] MPA Serum IgM 58 mg/dL Normal 40-230 [facility] Comment on above: Performed By: #### S ANGELICA, B12 ####[facility] [place], [place] [phone] Staff Review Reviewed by Audelia Cabrera MD ([id number]) Normal [facility] Comment on above: Performed By: #### S ANGELICA, B12 ####[facility] [place], [place] [phone] Remote CBCDIF (for [facility] use o nly)on 08-19-2020 Abs Baso <0.03 Normal <0.11 [facility] Abs [place] 0.33 k/uL Normal <0.87 [facility] Abs Neut 3.89 k/uL Normal 1.45-7.50 [facility] Absolute nRBC <0.01 Normal <0.01 [facility] Basophils/100 WBC (Bld) 0.3 % Normal C [facility] DTYPE Auto Diff Normal [facility] Eosinophils (Bld) [#/Vol] 0.14 10*3/uL Normal <0.46 [facility] Eosinophils/100 WBC (Bld) 2.0 % Normal [facility] Erythrocyte distribution width (RBC) [Ratio] 12.8 % Normal 11.5-15.0 [facility] Hematocrit (Bld) [Volume fraction] 40.5 % Normal 36.0-46.0 [facility] Hemoglobin (Bld) [Mass/Vol] 13.8 g/dL Normal 11.5-15.5 [facility] Lymphocytes (Bld) [#/Vol] 2.71 10*3/uL Normal 1.00-4.00 [facility] Lymphocytes/100 WBC (Bld) 38.1 % Normal [facility] MCH 31.2 pG Normal 26.0-34.0 [facility] MCHC (RBC) [Mass/Vol] 34.1 g/dL Normal 30.5-36.0 [facility] MCV (RBC) [Entitic vol] 91.4 fL Normal 80.0-100.0 [facility] Monocytes/100 WBC (Bld) 4.6 % Normal [facility] Neutrophils/100 WBC (Bld) 55.0 % Normal [facility] NRBCs 0.0 /100 WBC Normal 0 [facility] Platelet mean volume (Bld) [Entitic vol] 9.7 fL Normal 9.0-12.7 [facility] Platelets (Bld) [#/Vol] 170 10*3/uL Normal 150-400 [facility] RBC (Bld) [#/Vol] 4.43 10*6/uL Normal 3.90-5.20 [facility] WBC (Bld) [#/Vol] 7.11 10*3/uL Normal 3.70-11.00 [facility] Reticulocyteon 08-19-2020 Abs Retic 0.096 M/uL Normal 0.0180-0.1 000 [facility] Retic% 2.2 % High 0.4-2.0 [facility] Vitamin B12on 08-19-2020 Cobalamin (Vitamin B12) [Mass/Vol] 421 pg/mL Normal 232-1245 [facility] Comment on above: Performed By: #### S ERMSANTO, B12 ####[facility] [id number] [place], [place] [id number] Vital Signs Date Time Vital Sign Value Performing Clinician Faci lity 10-08-2023 13:29-0400 Diastolic blood pressure 80 mm[Hg] Dontae Hernández [facility] 10-08-2023 13:29-0400 Heart rate 79 /min Dontae Hernández [facility] 10-08-2023 13:29-0400 Respiratory rate 20 /min Dontae Hernández [facility] 10-08-2023 13:29-0400 SaO2% (BldA) [Mass fraction] 94 % Dontae Hernández [facility] 10-08-2023 13:29-0400 Systolic blood pressure 134 mm[Hg] Dontae Hernández [facility] 09-05-2023 10:12-0400 Diastolic blood pressure 86 mm[Hg] Dontae Hernández [facility] 09-05-2023 10:12-0400 Mean blood pressure 105 mm[Hg] Dontae Hernández [facility] 09-05-2023 10:12-0400 Systolic blood pressure 142 mm[Hg] Dontae Hernández [facility] 09-05-2023 10:01-0400 Blood Pressure Location Dontae Hernández [facility] 09-05-2023 10:01-0400 Diastolic blood pressure 88 mm[Hg] Dontae Hernández [facility] 09-05-2023 10:01-0400 Heart rate 82 /min Dontae Hernández [facility] 09-05-2023 10:01-0400 SaO2% (BldA) [Mass fraction] 97 % Dontae Hernández [facility] 09-05-2023 10:01-0400 Systolic blood pressure 142 mm[Hg] Dontae Hernández [facility] 07-24-2023 13:50-0400 Blood Pressure Location Shaun Goode [facility] 07-24-2023 13:50-0400 Diastolic blood pressure 77 mm[Hg] Shaun Goode [facility] 07-24-2023 13:50-0400 Heart rate 85 /min Shaun Goode [facility] 07-24-2023 13:50-0400 Respiratory rate 16 /min Shaun Goode [facility] 07-24-2023 13:50-0400 Systolic blood pressure 135 mm[Hg] Mohamad Mouchli [facility] 07-02-2023 09:50-0400 Diastolic blood pressure 72 mm[Hg] Mohamad Mouchli [facility] 07-02-2023 09:50-0400 Heart rate 82 /min Mohamad Mouchli [facility] 07-02-2023 09:50-0400 Mean blood pressure 97 mm[Hg] Mohamad Mouchli [facility] 07-02-2023 09:50-0400 Respiratory rate 17 /min Mohamad Mouchli [facility] 07-02-2023 09:50-0400 SaO2% (BldA) [Mass fraction] 94 % Mohamad Mouchli [facility] 07-02-2023 09:50-0400 Systolic blood pressure 148 mm[Hg] Mohamad Mouchli [facility] 07-02-2023 09:40-0400 Diastolic blood pressure 72 mm[Hg] Mohamad Mouchli [facility] 07-02-2023 09:40-0400 Heart rate 80 /min Mohamad Mouchli [facility] 07-02-2023 09:40-0400 Mean blood pressure 92 mm[Hg] Mohamad Mouchli [facility] 07-02-2023 09:40-0400 Respiratory rate 11 /min Mohamad Mouchli [facility] 07-02-2023 09:40-0400 SaO2% (BldA) [Mass fraction] 93 % Mohamad Mouchli [facility] 07-02-2023 09:40-0400 Systolic blood pressure 132 mm[Hg] Mohamad Mouchli [facility] 07-02-2023 09:35-0400 Diastolic blood pressure 62 mm[Hg] Mohamad Mouchli [facility] 07-02-2023 09:35-0400 Heart rate 86 /min Mohamad Mouchli [facility] 07-02-2023 09:35-0400 Mean blood pressure 90 mm[Hg] Mohamad Mouchli [facility] 07-02-2023 09:35-0400 Respiratory rate 15 /min Mohamad Mouchli [facility] 07-02-2023 09:35-0400 SaO2% (BldA) [Mass fraction] 93 % Mohamad Mouchli [facility] 07-02-2023 09:35-0400 Systolic blood pressure 147 mm[Hg] Mohamad Mouchli [facility] 07-02-2023 09:25-0400 Body temperature 97.16 [degF] Mohamad Mouchli [facility] 07-02-2023 08:43-0400 Blood Pressure Location Mohamad Mouchli [facility] 07-02-2023 08:43-0400 Body temperature 96.8 [degF] Mohamad Mouchli [facility] 06-26-2023 12:17-0400 Blood Pressure Location Mohamad Mouchli [facility] 06-26-2023 12:17-0400 Diastolic blood pressure 82 mm[Hg] Mohamad Mouchli [facility] 06-26-2023 12:17-0400 Heart rate 80 /min Mohamad Mouchli [facility] 06-26-2023 12:17-0400 Respiratory rate 16 /min Ramyad Mouchli [facility] 06-26-2023 12:17-0400 Systolic blood pressure 138 mm[Hg] Ramyad Mouchli [facility] 06-21-2023 13:44-0400 Diastolic blood pressure 68 mm[Hg] Deonte Blancbabatunde [facility] 06-21-2023 13:44-0400 Heart rate 96 /min Deonte Peraza [facility] 06-21-2023 13:44-0400 SaO2% (BldA) [Mass fraction] 95 % Deonte Soteroofferson [facility] 06-21-2023 13:44-0400 Systolic blood pressure 138 mm[Hg] Deonte Blancerson [facility] 03-21-2023 13:30-0500 Body height 153.67 cm Carmen Conley Other [facility] Other 03-21-2023 13:30-0500 Body mass index (BMI) [Ratio] 30.54 kg/m2 Carmen Conley Other [facility] Other 03-21-2023 13:30-0500 Body weight 72.12 kg Carmen Conely Other [facility] Other 03-21-2023 13:30-0500 Diastolic blood pressure 79 mm[Hg] Carmen Conley Other [facility] Other 03-21-2023 13:30-0500 Systolic blood pressure 136 mm[Hg] Carmen Conley Other [facility] Other 01-24-2023 11:15-0400 Body height 153.67 cm Carmen Conley Other [facility] Other 01-24-2023 11:15-0400 Body mass index (BMI) [Ratio] 29.58 kg/m2 Carmen Conley Other [facility] Other 01-24-2023 11:15-0400 Body temperature 97.7 [degF] Carmen Conley Other [facility] Other 01-24-2023 11:15-0400 Body weight 69.85 kg Carmen Conley Other [facility] Other 01-24-2023 11:15-0400 Diastolic blood pressure 80 mm[Hg] Carmen Conley Other [facility] Other 01-24-2023 11:15-0400 SaO2% (BldA) [Mass fraction] 97 % Carmen Conley Other [facility] Other 01-24-2023 11:15-0400 Systolic blood pressure 137 mm[Hg] Carmen Conley Other [facility] Other 12-28-2022 13:30-0400 Body height 153.67 cm Carmen Conley Other [facility] Other 12-28-2022 13:30-0400 Body mass index (BMI) [Ratio] 29.96 kg/m2 Carmen Conley Other [facility] Other 09-22-2023 13:30-0400 Body weight 70.76 kg Carmen Conley Other [facility] Other 12-28-2022 13:30-0400 Diastolic blood pressure 64 mm[Hg] Carmen Conley Other [facility] Other 12-28-2022 13:30-0400 Systolic blood pressure 106 mm[Hg] Carmen Conley Other [facility] Other 08-07-2022 12:45-0400 Body height 153.67 cm Carmen Conley Other [facility] Other 08-07-2022 12:45-0400 Body mass index (BMI) [Ratio] 30.15 kg/m2 Carmen Conley Other [facility] Other 08-07-2022 12:45-0400 Body temperature 98.1 [degF] Carmen Conley Other [facility] Other 08-07-2022 12:45-0400 Body weight 71.22 kg Carmen Conley Other [facility] Other 08-07-2022 12:45-0400 Diastolic blood pressure 72 mm[Hg] Carmen Conley Other [facility] Other 08-07-2022 12:45-0400 SaO2% (BldA) [Mass fraction] 97 % Carmen Conley Other [facility] Other 08-07-2022 12:45-0400 Systolic blood pressure 132 mm[Hg] Carmen Conley Other [facility] Other 06-20-2022 12:00-0400 Body height 153.67 cm Carmen Conley Other [facility] Other 06-20-2022 12:00-0400 Body mass index (BMI) [Ratio] 30.54 kg/m2 Carmen Conley Other [facility] Other 06-20-2022 12:00-0400 Body weight 72.12 kg Carmen Conley Other [facility] Other 06-20-2022 12:00-0400 Diastolic blood pressure 70 mm[Hg] Carmen Conley Other [facility] Other 06-20-2022 12:00-0400 SaO2% (BldA) [Mass fraction] 98 % Carmen Conley Other [facility] Other 06-20-2022 12:00-0400 Systolic blood pressure 118 mm[Hg] Carmen Conley Other [facility] Other 06-12-2022 09:30-0500 Body height 153.67 cm Carmen Conley Other [facility] Other 06-12-2022 09:30-0500 Body mass index (BMI) [Ratio] 30.54 kg/m2 Carmen Conley Other [facility] Other 06-12-2022 09:30-0500 Body weight 72.12 kg Carmen Conley Other [facility] Other 06-12-2022 09:30-0500 Diastolic blood pressure 64 mm[Hg] Carmen Conley Other [facility] Other 06-12-2022 09:30-0500 SaO2% (BldA) [Mass fraction] 97 % Carmen Conley Other [facility] Other 06-12-2022 09:30-0500 Systolic blood pressure 116 mm[Hg] Carmen Conley Other [facility] Other 05-10-2022 11:00-0500 Body height 153.67 cm Carmen Conley Other [facility] Other 05-10-2022 11:00-0500 Body mass index (BMI) [Ratio] 30.54 kg/m2 Carmen Conley Other [facility] Other 05-10-2022 11:00-0500 Body weight 72.12 kg Carmen Conley Other [facility] Other 05-10-2022 11:00-0500 Diastolic blood pressure 62 mm[Hg] Carmen Conley Other [facility] Other 05-10-2022 11:00-0500 SaO2% (BldA) [Mass fraction] 97 % Carmen Conley Other [facility] Other 05-10-2022 11:00-0500 Systolic blood pressure 118 mm[Hg] Carmen Conley Other [facility] Other 04-20-2022 11:30-0500 Body height 153.67 cm Carmen Conley Other [facility] Other 04-20-2022 11:30-0500 Body mass index (BMI) [Ratio] 30.54 kg/m2 Carmen Conley Other [facility] Other 04-20-2022 11:30-0500 Body weight 72.12 kg Carmen Conley Other [facility] Other 04-20-2022 11:30-0500 Diastolic blood pressure 80 mm[Hg] Carmen Conley Other [facility] Other 04-20-2022 11:30-0500 SaO2% (BldA) [Mass fraction] 97 % Carmen Conley Other [facility] Other 04-20-2022 11:30-0500 Systolic blood pressure 126 mm[Hg] Carmen Conley Other [facility] Other 04-16-2022 15:15-0500 Body height 153.67 cm Carmen Conley Other [facility] Other 04-16-2022 15:15-0500 Body mass index (BMI) [Ratio] 30.35 kg/m2 Carmen Conley Other [facility] Other 04-16-2022 15:15-0500 Body weight 71.67 kg Carmen Conley Other [facility] Other 04-16-2022 15:15-0500 Diastolic blood pressure 82 mm[Hg] Carmen Conley Other [facility] Other 04-16-2022 15:15-0500 SaO2% (BldA) [Mass fraction] 97 % Carmen Conley Other [facility] Other 04-16-2022 15:15-0500 Systolic blood pressure 136 mm[Hg] Carmen Conley Other [facility] Other Encounters Encounter Date Encounter Type Care Provider Facility Start: 11-25-2023 End: 11-25-2023 ambulatory Nohemy Mohamud MD [facility] Start: 10-28-2023 End: 10-28-2023 ambulatory Nohemy Mohamud MD [facility]: [facility] Start: 10-08-2023 End: 10-08-2023 ambulatory PA-C Dontae Hernández Facility:[facility] Start: 10-08-2023 End: 10-08-2023 Patient encounter procedure Dontae Hernández [facility] Start: 10-01-2023 End: 10-01-2023 ambulatory PA-C Dontae Hernández Facility:[facility] Start: 10-01-2023 End: 10-01-2023 Patient encounter procedure Dontae Hernández [facility] Start: 09-05-2023 End: 09-05-2023 ambulatory XXXX NONE Facility:[facility] Start: 09-05-2023 End: 09-05-2023 Patient encounter procedure Dontae Hernández [facility] Start: 08-05-2023 End: 08-05-2023 ambulatory Deonte Peraza Facility:[facility] Start: 08-05-2023 End: 08-05-2023 Patient encounter procedure Deonte Peraza [facility] Start: 08-01-2023 End: 08-16-2023 Pre-admission assessment Deonte Peraza [facility] Start: 07-24-2023 End: 08-07-2023 Pre-admission assessment Shaun Goode [facility] Start: 07-24-2023 End: 07-24-2023 ambulatory Shaun Goode Facility:[facility] Start: 07-24-2023 End: 07-24-2023 Patient encounter procedure Shaun Goode [facility] Start: 07-02-2023 End: 07-02-2023 ambulatory Shaun Goode Facility:[facility] Start: 07-02-2023 End: 07-02-2023 Patient encounter procedure Shaun Goode [facility] Start: 06-26-2023 End: 06-26-2023 ambulatory Shaun Goode Facility:[facility] Start: 06-26-2023 End: 06-26-2023 Patient encounter procedure Shaun Wildmaximo [facility] Start: 06-26-2023 End: 06-26-2023 ambulatory Shaun WolfeJeff Junitomaximo [facility] Start: 06-26-2023 End: 06-26-2023 Patient encounter procedure Shaun WolfeJeff Junitomaximo [facility] Start: 06-21-2023 End: 06-21-2023 ambulatory Deonte Peraza Facility:[facility] Start: 06-21-2023 End: 06-21-2023 Patient encounter procedure Deonte Peraza [facility] Start: 06-18-2023 End: 06-18-2023 ambulatory MD Lucho GOINS Facility:[facility] Start: 06-18-2023 End: 06-18-2023 Patient encounter procedure CARMEN CONLEY [facility] Start: 06-13-2023 ambulatory JANUSZ Turner ity:[facility] Start: 05-14-2023 End: 05-14-2023 ambulatory Carmen Conley Other [facility] Other Start: 05-14-2023 Telephone encounter Carmen Conley [facility] Start: 04-16-2023 End: 04-16-2023 ambulatory ZULEIMA A FELTER Not Available Start: 04-03-2023 End: 04-03-2023 ambulatory Carmen Conley Other [facility] Other Start: 04-03-2023 Telephone encounter Carmen Conley [facility] Start: 04-02-2023 End: 04-02-2023 ambulatory Carmen Yale Other [facility] Other Start: 04-02-2023 Telephone encounter Carmen Conley [facility] Start: 03-21-2023 End: 03-21-2023 ambulatory Carmen Yael Other [facility] Other Start: 03-21-2023 Office outpatient vi sit 15 minutes Carmen Conley [facility] Start: 03-21-2023 Telephone encounter Carmen Conley [facility] Start: 03-04-2023 End: 03-04-2023 ambulatory ZULEIMA Wolfe FELTER Not Available Start: 02-06-2023 End: 02-06-2023 ambulatory Carmen Conley Other [facility] Other Start: 02-06-2023 Telephone encounter Carmen Conley [facility] Start: 02-01-2023 End: 02-01-2023 ambulatory Carmen Conley Other [facility] Other Start: 02-01-2023 Telephone encounter Carmen Conley [facility] Start: 01-24-2023 End: 01-24-2023 ambulatory Carmen Conley Other [facility] Other Start: 01-24-2023 Office outpatient vi sit 15 minutes Carmen Conley [facility] Start: 01-17-2023 End: 01-17-2023 ambulatory Carmen Conley Other [facility] Other Start: 01-17-2023 Telephone encounter Carmen Conley [facility] Start: 01-01-2023 End: 01-01-2023 ambulatory Carmen Conley Other [facility] Other Start: 01-01-2023 Telephone encounter Carmen Conley [facility] Start: 12-28-2022 End: 12-28-2022 ambulatory Carmen Conley Other [facility] Other Start: 12-28-2022 Patient encounter procedure Carmen Conley [facility] Start: 10-04-2022 End: 10-04-2022 ambulatory Carmen Conley Other [facility] Other Start: 10-04-2022 Telephone encounter Carmen Conley [facility] Start: 08-09-2022 End: 08-09-2022 ambulatory Carmen Conley Other [facility] Other Start: 08-09-2022 Telephone encounter Carmen Conley [facility] Start: 08-08-2022 Telephone encounter Carmen Yael [facility] Start: 08-08-2022 End: 08-09-[address] CARMEN CONLEY [facility] Other Start: 08-07-2022 End: 08-07-2022 ambulatory Carmen Conley Other [facility] Other Start: 08-07-2022 Office outpatient vi sit 15 minutes Carmen Conley [facility] Start: 07-31-2022 End: 07-31-2022 ambulatory Carmen Conley Other [facility] Other Start: 07-31-2022 Telephone encounter Carmen Conley [facility] Start: 07-24-2022 End: 07-24-2022 ambulatory Carmen Conley Facility:[facility] Start: 07-02-2022 End: 07-03-[address] CARMEN CONLEY Facility: Start: 06-20-2022 End: 06-20-2022 ambulatory Carmen Conley Other [facility] Other Start: 06-20-2022 Office outpatient vi sit 10 minutes Carmen Conley [facility] Start: 06-14-2022 End: 06-14-2022 ambulatory Carmen Conley Other [facility] Other Start: 06-14-2022 Telephone encounter Carmen Conley [facility] Start: 06-12-2022 Office outpatient vi sit 15 minutes Carmen Conley [facility] Start: 06-12-2022 End: 06-13-[address] CARMEN CONLEY [facility] Other Start: 05-10-2022 End: 05-10-2022 ambulatory Carmen oCnley Other [facility] Other Start: 05-10-2022 Office outpatient vi sit 15 minutes Carmen Conley [facility] Start: 05-10-2022 Telephone encounter Carmen Conley [facility] Start: 05-03-2022 End: 05-03-2022 ambulatory Carmen Conley Other [facility] Other Start: 05-03-2022 Telephone encounter Carmen Conley [facility] Start: 04-23-2022 End: 04-24-[address] CARMEN CONLEY Facility: Start: 04-20-2022 End: 04-20-2022 ambulatory Carmen Conley Other [facility] Other Start: 04-20-2022 Office outpatient vi sit 25 minutes Carmen Conley [facility] Start: 04-17-2022 End: 04-17-2022 ambulatory Carmen Conley Other [facility] Other Start: 04-17-2022 Telephone encounter Carmen Conley [facility] Start: 04-16-2022 End: 04-16-2022 ambulatory Carmen Conley Other [facility] Other Start: 04-16-2022 Office outpatient vi sit [...] 09-21-2020 Subsequent hospital visit by physician Mri [facility] (Lg Bore/1.5t) Radiology MRI Comment on above: [...] Clinic Start: 09-27-2025 LIPID SCREEN LIPID SCREEN [facility] Start: 01-08-2024 ambulatory [facility] Start: 09-28-2023 DIABETES SCREEN DIABETES SCREEN [facility] Start: 09-28-2023 Diabetes Screening Diabetes Screening [facility] Start: 12-07-2022 Influenza vaccination Influenza Vaccine (#1) [facility] Start: 04-08-2022 Advance Directive Discussion Advance Directive Discussion [facility] Start: 04-08-2022 Depression Assessment Depression Assessment [facility] Start: 12-07-2021 Influenza vaccination INFLUENZA (Season Ended) [facility] Start: 09-30-2021 Adult depression screening assessment DEPRESSION SCREENING [facility] Start: 04-08-2021 ADVANCE DIRECTIVE DISCUSSION ADVANCE DIRECTIVE DISCUSSION [facility] Start: 02-17-2020 Pneumococcal Vaccine: 65+ (3 - PPSV23 or PCV20) Pneumococcal Vaccine: 65+ (3 - PPSV23 or PCV20) [facility] Start: 01-07-2016 PNEUMOVAX AGE 65 AND OVER WITH 5YR LOOKBACK (#1) PNEUMOVAX AGE 65 AND OVER WITH 5YR LOOKBACK (#1) [facility] Start: 03-31-2015 SHINGRIX VACCINE (2 of 3) SHINGRIX VACCINE (2 of 3) [facility] Start: 2014 BONE DENSITY BONE DENSITY [facility] Start: 2014 Bone Density Screening Bone Density Screening [facility] Start: 2009 RSV Vaccine (1 - 1-dose 60+ series) RSV Vaccine (1 - 1-dose 60+ series) [facility] Start: 1994 COLOGUARD (FIT-DNA) COLOGUARD (FIT-DNA) [facility] Start: 1994 Colonoscopy COLONOSCOPY [facility] Start: 1994 COLORECTAL CANCER SCREENING COLORECTAL CANCER SCREENING [facility] Start: [address] COLONOGRAPHY [facility] Start: 1994 FECAL OCCULT BLOOD FECAL OCCULT BLOOD [facility] Start: 1994 SIGMOIDOSCOPY SIGMOIDOSCOPY [facility] Start: 1989 Mammography [facility] Start: 1968 HEPATITIS B (1 of 3 - Risk 3-dose series) HEPATITIS B (1 of 3 - Risk 3-dose series) [facility] Start: 1968 Urine microalbumin profile [facility] Start: 08-04-1967 HEPATITIS C SCREENING HEPATITIS C SCREENING [facility] Start: 1954 COVID-19 VACCINE (1) COVID-19 VACCINE (1) [facility] Start: 1950 HEPATITIS A (1 of 2 - Risk 2-dose series) HEPATITIS A (1 of 2 - Risk 2-dose series) [facility] Start: 02-02-1950 Covid-19 Vaccine (#1) Covid-19 Vaccine (#1) [facility] Immunizations Immunization Date Immunization Notes Care Provider Fa cili 12-28-2022 pneumococcal polysaccharide vaccine, 23 valent Carmen Conley Other [facility] Other 12-28-2022 influenza, high dose seasonal, preservative-free Carmen Conley Other [facility] Other 07-04-2020 COVID-19 Vaccine Moderna - Documentation Purposes Only Carmen Conley Other [facility] Other 01-07-2020 influenza, high dose seasonal, preservative-free Mehrdad Aguilar MD Work Phone: [facility] 01-07-2020 influenza virus vaccine, unspecified formulation Mri Bore/1.5t) [facility] 11-27-2019 influenza virus vaccine, split virus (incl. purified surface antigen) Carmen Conley Other [facility] Other 01-06-2019 influenza, high dose seasonal, preservative-free Mehrdad Aguilar MD Work Phone: [facility] 01-01-2019 influenza virus vaccine, split virus (incl. purified surface antigen) Carmen Conley Other [facility] Other 01-01-2019 influenza virus vaccine, unspecified formulation Shaun Goode [facility] 01-01-2019 Seasonal trivalent influenza vaccine, adjuvanted, preservative free Mehrdad Aguilar MD Work Phone: [facility] 01-13-2018 influenza nasal, unspecified formulation Mehrdad Aguilar MD Work Phone: [facility] 12-17-2017 influenza virus vaccine, unspecified formulation Yvetteamaemmy Goode [facility] 12-17-2017 influenza, high dose seasonal, preservative-free Mehrdad Aguilar MD Work Phone: [facility] 02-05-2017 influenza, high dose seasonal, preservative-free Mehrdad Aguilar MD Work Phone: [facility] 04-09-2016 influenza virus vaccine, unspecified formulation Yvetteamaemmy Junitomaximo [facility] 04-09-2016 influenza, injectabl e, quadrivalent, preservative free Mehrdad Aguilar MD Work Phone: [facility] 03-05-2016 influenza, high dose seasonal, preservative-free Mehrdad Aguilar MD Work Phone: [facility] 02-16-2015 influenza, high dose seasonal, preservative-free Mehrdad Aguilar MD Work Phone: [facility] 02-16-2015 pneumococcal conjuga te vaccine, 13 valent Mehrdad Aguilar MD Work Phone: [facility] 02-03-2015 zoster vaccine, live Mehrdad lacey MD Work Phone: [facility] 02-02-2015 influenza, high dose seasonal, preservative-free Mehrdad Aguilar MD Work Phone: [facility] 02-02-2015 pneumococcal conjuga te vaccine, 13 aubrey Aguilar MD Work Phone: [facility] 03-24-2014 influenza, injectabl e, quadrivalent, contains preservative Mehrdad Aguilar MD Work Phone: [facility] 01-06-2013 influenza, high dose seasonal, preservative-free Mehrdad Aguilar MD Work Phone: [facility] [facility] 01-06-2011 pneumococcal polysaccharide vaccine, 23 aubrey Aguilar MD Work Phone: [facility] Payers Date Payer Category Payer Self-pay 2020 Private Health Insurance [facility] INDEMNITY [id number] 2020-Present [phone] [address] [place] [address] Indemnity [id number] 2020 Private Health Insurance [id number] 2006 Medicare MEDICARE RAILROA D MEDICARE RAILROAD PB ONLY [id number] 2006-Present [phone] [address] [address] [place] [address] Medicare [id number] 2006 Medicare MEDICARE MEDICAR E A AND B [id number] 2006-Present [phone] [address] [address] [place] [address] Medicare [id number] 2006 Unknown 1959 Medicare [id number] 1959 Private Health Insurance [id number] 2.16.840.1.906146.19 1949 Unknown [id number] 2.16.840.1.812359.3.579. 2.593 1949 Unknown [id number] 2.16.840.1.183817.3.579. 2.593 1949 Unknown [id number] 2.16.840.1.036305.3.579. 2.593 1949 Unknown [id number] 2.16.840.1.150749.3.579. 2.593 1949 Unknown [id number] 2.16.840.1.551177.3.579. 2.593 1949 Unknown [id number] 2.16.840.1.429386.3.579. 2.593 1949 Unknown [id number] 2.16.840.1.157744.3.579. 2.593 1949 Unknown [id number] 2.16.840.1.413178.3.579. 2.593 1949 Unknown [id number] 2.16.840.1.173226.3.579. 2.593 1949 Unknown [id number] 2.16.840.1.283514.3.579. 2.1259 1949 Unknown [id number] 2.16840.1.374882.3.579. 2.1259 1949 Unknown [id number] 2.16.840.1.313758.3.579. 2.727 1949 Unknown [id number] 2.16.840.1.161594.3.579. 2.727 1949 Unknown [id number] 2.16.840.1.813945.3.579. 2.727 1949 Unknown [id number] 2.16.840.1.685393.3.579. 2.727 1949 Unknown [id number] 2.16.840.1.910643.3.579. 2.727 1949 Unknown [id number] 2.16.840.1.329182.3.579. 2.727 1949 Unknown [id number] 2.16.840.1.971639.3.579. 2.727 1949 Unknown [id number] 2.16.840.1.352156.3.579. 2.727 1949 Unknown [id number] 2.16.840.1.072732.3.579. 2.727 1949 Unknown [id number] 2.16.840.1.301685.3.579. 2.727 1949 Unknown [id number] 2.16.840.1.530694.3.579. 2.727 1949 Unknown [id number] 2.16.840.1.080179.3.579. 2.727 1949 Unknown [id number] 2.16.840.1.430003.3.579. 2.196 1949 Unknown [id number] 2.16.840.1.727577.3.579. 2.196 Unknown [id number] 2.16.840.1.263726.3.579. 2.531 Social History Date Type Detail Facility Start: 08-18-2020 End: 10-08-2023 Tobacco smoking status NHIS Never smoked tobacco [facility] Start: 08-18-2020 Tobacco use and exposure Smokeless tobacco non-user [facility] Start: 08-19-2020 End: 09-30-2020 Alcohol intake Ex-drinker (finding) [facility] Start: 1950 Sex Assigned At Not on file [facility] Start: 08-04-2020 End: 08-19-2020 Sex Assigned At [facility] Start: 08-04-2020 End: 08-19-2020 History of Social function [facility] National Score (1-100), lower number is lower risk Not on file [facility] Tobacco smoking status No Smokin g Status Entered [facility] Medical Equipment Procedure Code Equipment Code Equipment Original Text Equi pment Identifier Dates BD Pen Needle Na no U/F 32G X 4 MM Functional Status Date Assessment Result Facility 10-08-2023 Functional Status N/A [facility] 09-05-2023 Functional Status No [facility] 07-24-2023 Functional Status N/A [facility] 07-02-2023 Functional Status N/A [facility] 06-26-2023 Functional Status N/A [facility] 06-21-2023 Functional Status N/A [facility] Clinical Notes 08-19-2020 to 07-03-2023 Note Date & Type Note Facility 07-03-2023 Note [id number] [facility] 07-02-2023 Hospital Discharg e instructions Patient Education 07/02/2023 09:33:43 Endoscopy, Care After Procedure [facility] Endoscopy Care After Procedure Please read [...] Document Re-Released: 09/16/2006 ExitCare Patient Information 2010 [employer]. 07/02/2023 09:33:36 Esophagitis Esophagitis Esophagitis is inflammation [...] Follow these instructions at home: Medicines Take mjmu-ntk-xsxkpxx and prescription medicines only as told by [...] powder, vinegar, hot sauces, and barbecue sauce. ?Hometown fruit juices and citrus fruits, such as oranges, bentley, and limes. ?Tomato-based foods, such as red sauce, chili, salsa, and pizza with red sauce. ?Fried and fatty foods, such as donuts, nepali fries, potato chips, and high-fat dressings. ?High-fat [...] provider. Document Revised: 10/03/2020 Document Reviewed: 10/03/2020 [employer] Patient Education 2022 [employer] 07/02/2023 09:33:31 Hiatal Hernia Hiatal Hernia [...] reduce GERD symptoms. Medicines. These may include: ?Ddry-tlk-mpbfrvx antacids. ?Medicines that make your stomach empty [...] may include: ?Fatty foods, like fried foods. ?Hometown fruits, like oranges or lemon. ?Other foods [...] Do not drink alcohol. General instructions Take eucg-ziw-fgmjmsb and prescription medicines only as told by [...] provider. Document Revised: 05/22/2022 Document Reviewed: 05/22/2022 [employer] Patient Education 2022 [employer]. Follow Up Care 06/26/2023 13:24:26 With:Rupa CERRATO, ANTIONETTE Luna, [facility] Address: When: Unknown Comments:Call for any problems. The office will reach out in about one week from procedure date. [facility] 07-02-2023 Note Endoscopy Care After [...] Document Re-Released: 09/16/2006 ExitCare? Patient Information ?2009 [employer]. Gastroenterology Esophagitis Esophagitis is inflammation of the [...] these instructions at home: Medicines ? Take vbjw-hkp-jnxbiua and prescription medicines only as told by your health care provider. ? Do not take aspirin, ibuprofen, or other NSAIDs unless your health care provider told you to do so. ? If you have trouble taking pills: ? Use a pill splitter to decrease the size of the pi (more content not included)... [facility] 06-18-2023 Note Echocardiology Procedure Exam Date/Time Accession # Ordering Echo Transthoracic 06/18/2023 08:41 EDT [id number] CARMEN CONLEY MD Complete CPT code 17420 [id number] Reason for Exam (Echo Transthoracic Complete) R07.9 Chest pain, unspecified Report [facility] [address] [place] [address] Adult Echocardiogram Report Name: IVELISSE GEE Study Date: 06/18/2023 06:57 AM BP: 117/66 mmHg Patient Location: [facility] HR: 71 : 1950 Gender: Female Height: 60 in Age: 72 yrs Ethnicity: [facility] Weight: 155 lb Reason For Study: R07.9 Chest pain, unspecified BSA: 1.7 m2 History: HTN, DM, I have a leaky valve Ordering Physician: CARMEN CONLEY Referring Physician: CARMEN CONLEY Performed By: Katya Ho, [facility] Interpretation Summary No comparison study is available. [...] Signed by: Lucho GOINS MD Transcribed by: [facility] Technologist: LE [facility] 05-14-2023 Evaluation note Encounter Date Diagnosis Assessment Notes May, Type 2 diabetes mellitus with hyperglycemia (ICD-10 - E11.65) [facility] Other 12-27-2023 Evaluation note* Encounter Date Diagnosis Assessment Notes Treatment Notes Treatment Clinical Notes Mar, Type 2 diabetes mellitus with hyperglycemia (ICD-10 - E11.65) [facility] Other 12-26-2023 Evaluation note* Encounter Date Diagnosis Assessment Notes Treatment Notes Treatment Clinical Notes Mar, Type 2 diabetes mellitus with hyperglycemia (ICD-10 - E11.65) [facility] Other 12-14-2023 Evaluation note* Encounter Date Diagnosis Assessment Notes Treatment Notes Treatment Clinical Notes Mar, Panic attack (ICD-10 - F41.0) [facility] Other 12-14-2023 Evaluation note* Encounter Date Diagnosis [...] to continue with above medication as directed. [facility] Other 10-19-2023 Evaluation note* Encounter Date Diagnosis [...] normal chest x-ray on January 17 at [facility]. [facility] Other 09-22-2023 Evaluation note* Encounter Date Diagnosis [...] patient is sent home pleased, without concerns. [facility] Other 06-29-2023 Evaluation note* Encounter Date Diagnosis Assessment Notes Treatment Notes Treatment Clinical Notes Sep, Type 2 diabetes mellitus with hyperglycemia (ICD-10 - E11.65) [facility] Other 05-03-2023 Evaluation note* Encounter Date Diagnosis Assessment Notes Treatment Notes Treatment Clinical Notes August, RLQ abdominal pain (ICD-10 - R10.31) [facility] Other 05-02-2023 Evaluation note* Encounter Date Diagnosis Assessment Notes Treatment Notes Treatment Clinical Notes August, RLQ abdominal pain (ICD-10 - R10.31) Acute pain - assess with labs, CT. Discussed differential with pt. [facility] Other 03-15-2023 Evaluation note* Encounter Date Diagnosis [...] as her information was sent last week. [facility] Other 03-07-2023 Evaluation note* Encounter Date Diagnosis Assessment Notes Treatment Notes Treatment Clinical Notes Jun, Dysuria (ICD-10 - R30.0) Jun, Type 2 diabetes mellitus with hyperglycemia (ICD-10 - E11.65) Jun, History of sepsis (ICD-10 - Z86.19) Referral placed to [facility] as was suggested by Dr. William. [facility] Other 03-07-2023 Evaluation note* Encounter Date Diagnosis Assessment Notes Treatment Notes Treatment Clinical Notes Jun, Dysuria (ICD-10 - R30.0) Jun, Type 2 diabetes mellitus with hyperglycemia (ICD-10 - E11.65) Stop Januvia. Start ozempic for improved glucose control. Jun, History of sepsis (ICD-10 - Z86.19) Referral placed to [facility] as was suggested by Dr. William. [facility] Other 02-02-2023 Evaluation note* Encounter Date Diagnosis Assessment Notes Treatment Notes Treatment Clinical Notes May, EDU (generalized anxiety disorder) (ICD-10 - F41.1) [facility] Other 02-02-2023 Evaluation note* Encounter Date Diagnosis Assessment Notes Treatment Notes Treatment Clinical Notes May, Panic attack (ICD-10 - F41.0) Discussed stress, medication and health issues. Will refill med started by ER and monitor symptoms. May, Type 2 diabetes mellitus with hyperglycemia (ICD-10 - E11.65) add medication to improve glucose. Pt agrees to consider further referral if needed. [facility] Other 01-13-2023 Evaluation note* Encounter Date Diagnosis [...] antibiotic tomorrow, will check that it cleared. [facility] Other 01-09-2023 Evaluation note* Encounter Date Diagnosis Assessment Notes Treatment Notes Treatment Clinical Notes Apr, Sepsis due to Staphylococcus (ICD-10 - A41.2) Ivelisse feels that the oral antibiotics are not strong enough. Unsure of root cause of staph sepsis/bacteremia . Admitted to [facility] for <24h. Requests referral to ID. Pt concerned that she has immune deficiency or Hep C that she has been septic in the past. Apr, Type 2 diabetes mellitus with hyperglycemia (ICD-10 - E11.65) will continue to hold metformin due to renal labs. Apr, Elevated liver enzymes (ICD-10 - R74.8) Has been to GI in the past [facility] Other 01-05-2023 NotePROGRESS NOTE NOTE DATE: 04/12/2022 [...] prophylaxis: Lovenox. DISPOSITION: Home when medically stable.[facility] [id number] Note PROCEDURE: XR WRIST RT MIN 3 V, XR FOREARM RT 2V COMPARISON: HISTORY: Pain of right wrist FINDINGS: BONES:No acute fracture or dislocation of the forearm or wrist. I'll degenerative changes with joint space narrowing. SOFT TISSUES:Negative. No visible soft tissue swelling. EFFUSION:None visible. OTHER: Negative. IMPRESSION: Mild degenerative changes No acute abnormality Electronically authenticated by: HAYLEY PARHAM Date: 2022-01-07 11:23[facility]10-02-2022 NotePROCEDURE: XR WRIST RT MIN 3 V, XR FOREARM RT 2V COMPARISON: HISTORY: Pain of right wrist FINDINGS: BONES:No acute fracture or dislocation of the forearm or wrist. I'll degenerative changes with joint space narrowing. SOFT TISSUES:Negative. No visible soft tissue swelling. EFFUSION:None visible. OTHER: Negative. IMPRESSION: Mild degenerative changes No acute abnormality Electronically authenticated by: HAYLEY PARHAM Date: 2022-01-07 11:23[facility]05-06-2022 Miscellaneous Notes* Telephone Encounter - Marta Valero - 08/11/2021 12:13 PM EDT Called patient to reschedule an appointment per patient she no longer see Dr. Aguilar and that she had cancelled appointments last year confirmed with patient that she would like to cancel and did notneed to reschedule. documented [facility] NoteHNO ID: [id number] Author: Mehrdad Aguilar MD Service: ? Author Type: Physician Type: Progress Notes Filed: 10/02/2020 5:36 PM Note Text: PATIENT NAME: Ivelisse Gee DATE: 09/30/2020 PRIMARY CARE PHYSICIAN: Carmen Conley MD OTHER PHYSICIANS: Dr. Wahl ([place], [place]), Dr. Magdaleno Castillo ([facility]) Portions of this encounter note have [...] extremities and face. Negative (more content not included)...[facility]06-16-2021 NoteHNO ID: [id number] Author: RT Nancie(R) Service: ? Author Type: Real Estate Salesperson Type: Progress Notes Filed: 09/21/2020 11:30 AM [...] Gee DATE: September 21, 2020 TIME: 11:28 [facility]06-16-2021 NoteHNO ID: [id number] Author: RT Nancie(Bushra) Service: ? Author Type: Real Estate Salesperson Type: Progress Notes Filed: 09/21/2020 11:26 AM [...] Gee DATE: September 21, 2020 TIME: 11:18 [facility]05-25-2021 NoteHNO ID: [id number] Author: RT Akhil(Bushra) Service: ? Author Type: Real Estate Salesperson Type: Progress Notes Filed: 08/30/2020 11:31 AM [...] BY: RT Akhil(R) August 30, 2020 11:30 [facility]05-14-2021 NoteHNO ID: [id number] Author: Mehrdad Aguilar MD Service: ? Author Type: Physician Type: Progress Notes Filed: 08/20/2020 1:40 PM Note Text: PATIENT NAME: Ivelisse Gee DATE: 08/19/2020 PRIMARY CARE PHYSICIAN: Carmen Conley MD OTHER PHYSICIANS: Dr. Wahl ((PCP [place], [place]) HPI: This is a 70 year [...] requiring hospitalization, most recently while residing in [place] in June 2020. During her recent hospitalization labs revealed persistent thrombocytopenia with a platelet count ranging from 80-90,000. The patient is currently referred for evaluation of her abnormal CBC. Since the patient's hospitalization she started uerr-ote-glesiax supplements including multivitamin. She has had no [...] EXAM: Well developed/well n (more content not included)...[facility] Future Appointments Appointment Date:06/21/2023 01:30:00 PM Scheduled Provider:Deonte Peraza MD [facility] Appointment Type:Cardiology New Patient (FT) Appointment Date:06/26/2023 12:30:00 PM Scheduled Provider:Shaun Goode MD Location:[facility] Appointment Type:[facility] Future Appointments Appointment Date:06/26/2023 12:30:00 PM Scheduled Provider:Shaun Goode MD Location:[facility] Appointment Type:[facility] New Patient Appointment Date:08/22/2023 02:00:00 PM Scheduled Provider:Deonte Peraza MD [facility] Type:Cardiology Follow Up (FT) Future Scheduled Tests Radiology* NM Myocardial Spect Rest/Stress 1 Day 06/21/23 [facility] Future Appointments Appointment Date:07/02/2023 09:45:00 AM Scheduled Provider: Location:[facility] Appointment Type:Surgery FT Appointment Date:08/22/2023 02:00:00 PM Scheduled Provider:Deonte Peraza MD [facility] Type:Cardiology Follow Up (FT) Future Scheduled Tests Radiology* NM Myocardial Spect Rest/Stress 1 Day 06/21/23 [facility] Evaluation + Plan note Future Appointments Appointment Date:07/02/2023 09:45:00 AM Scheduled Provider: Location:[facility] Appointment Type:Surgery FT Appointment Date:08/22/2023 02:00:00 PM Scheduled Provider:Deonte Peraza MD [facility] Type:Cardiology Follow Up (FT) Diagnostic Tests Pending * Alpha Fetoprotein Tumor Marker 06/26/23 Future Scheduled Tests Radiology* NM Myocardial Spect Rest/Stress 1 Day 06/21/23 [facility] Future Appointments Appointment Date:08/22/2023 02:00:00 PM Scheduled Provider:Deonte Peraza MD [facility] Type:Cardiology Follow Up (FT) Future Scheduled Tests Radiology* NM Myocardial Spect Rest/Stress 1 Day 06/21/23 [facility] Future Appointments Appointment Date:08/05/2023 08:00:00 AM Scheduled Provider: [facility] Appointment Type:NM Myocard Spect Multi Rest/Stress-Res Appointment Date:08/05/2023 09:00:00 AM Scheduled Provider: [facility] Appointment Type:NM Myocard Spect Multi Rest/Stress - R Appointment Date:08/05/2023 09:30:00 AM Scheduled Provider: [facility] Appointment Type:NM Myocard Spect Multi Rest/Stress-Str Appointment Date:08/05/2023 10:30:00 AM Scheduled Provider: [facility] Appointment Type:NM Myocar Spect Multi Rest/Stress - St Appointment Date:08/05/2023 11:00:00 AM Scheduled Provider: [facility] Appointment Type:CV Holter/Event (FT) Appointment Date:08/06/2023 10:30:00 AM Scheduled Provider: [facility] Appointment Type:US Abdominal/Pelvis (FT) Appointment Date:08/22/2023 02:00:00 PM Scheduled Provider:Deonte Peraza MD [facility] Appointment Type:Cardiology Follow Up (FT) Appointment Date:01/08/2024 12:15:00 PM Scheduled Provider:Shaun Goode MD Location:[facility] Appointment Type:[facility] Follow Up Future Scheduled Tests Laboratory* Alpha Fetoprotein Tumor Marker 07/24/23 * Alpha Fetoprotein Tumor Marker 01/23/24 * CBC w/ Auto Diff 07/24/23 * CBC w/ Auto Diff 01/23/24 * Comprehensive Metabolic Panel 07/24/23 * Comprehensive Metabolic Panel 01/23/24 * PT 07/24/23 * PT 01/23/24 Radiology* NM Myocardial Spect Rest/Stress 1 Day 08/05/23 * US Liver 08/06/23 [facility] Evaluation + Plan note Future Appointments Appointment Date:08/15/2023 09:00:00 AM Scheduled Provider: [facility] Appointment Type:NM Myocard Spect Multi Rest/Stress-Res Appointment Date:08/15/2023 10:00:00 AM Scheduled Provider: [facility] Appointment Type:NM Myocard Spect Multi Rest/Stress - R Appointment Date:08/15/2023 10:30:00 AM Scheduled Provider: [facility] Appointment Type:NM Myocard Spect Multi Rest/Stress-Str Appointment Date:08/15/2023 11:30:00 AM Scheduled Provider: [facility] Appointment Type:NM Myocar Spect Multi Rest/Stress - St Appointment Date:08/27/2023 01:00:00 PM Scheduled Provider:Dontae Hernández PA-C [facility] App[facility] Type:Cardiology Follow Up (FT) Appointment Date:01/08/2024 12:15:00 PM Scheduled Provider:Shaun Goode MD Location:[facility] Dig[facility]ive [facility] Appointment Type:BAD Follow Up Future Scheduled Tests Laboratory* Alpha Fetoprotein Tumor Marker 07/24/23 * Alpha Fetoprotein Tumor Marker 01/23/24 * CBC w/ Auto Diff 07/24/23 * CBC w/ Auto Diff 01/23/24 * Comprehensive Metabolic Panel 07/24/23 * Comprehensive Metabolic Panel 01/23/24 * PT 07/24/23 * PT 01/23/24 Radiology* NM Myocardial Spect Rest/Stress 1 Day 08/15/23 * US Liver 08/16/23 [facility] Future Appointments Appointment Date:08/27/2023 01:00:00 PM Scheduled Provider:Dontae Hernández PA-C Location:.[facility]iology Clinic Appointment Type:Cardiology Follow Up (FT) Appointment Date:01/08/2024 12:15:00 PM Scheduled Provider:Shaun Goode MD Location:[facility] Appointment Type:BAD Follow Up Future Scheduled Tests Laboratory* Alpha Fetoprotein Tumor Marker 07/24/23 * Alpha Fetoprotein Tumor Marker 01/23/24 * CBC w/ Auto Diff 07/24/23 * CBC w/ Auto Diff 01/23/24 * Comprehensive Metabolic Panel 07/24/23 * Comprehensive Metabolic Panel 01/23/24 * PT 07/24/23 * PT 01/23/24 Radiology* US Liver 08/16/23 [facility] Future Appointments Appointment Date:10/08/2023 01:45:00 PM Scheduled Provider:Dontae Hernández PA-C Location:.[facility]iology Clinic Appointment Type:Cardiology Follow Up (FT) Appointment Date:01/08/2024 12:15:00 PM Scheduled Provider:Shaun Goode MD Location:[facility] Appointment Type:[facility] Follow Up Future Scheduled Tests Laboratory* Alpha Fetoprotein Tumor Marker 07/24/23 * Alpha Fetoprotein Tumor Marker 01/23/24 * CBC w/ Auto Diff 07/24/23 * CBC w/ Auto Diff 01/23/24 * Comprehensive Metabolic Panel 07/24/23 * Comprehensive Metabolic Panel 01/23/24 * PT 07/24/23 * PT 01/23/24 Radiology* NM Myocardial Spect Rest/Stress 1 Day 09/06/23 * US Liver 08/16/23 [facility] Future Appointments Appointment Date:10/08/2023 01:45:00 PM Scheduled Provider:Dontae Hernández PA-C [facility] Type:Cardiology Follow Up (FT) Appointment Date:01/08/2024 12:15:00 PM Scheduled Provider:Shaun Goode MD Location:[facility] Appointment Type:[facility] Follow Up Future Scheduled Tests Laboratory* Alpha Fetoprotein Tumor Marker 07/24/23 * Alpha Fetoprotein Tumor Marker 01/23/24 * CBC w/ Auto Diff 07/24/23 * CBC w/ Auto Diff 01/23/24 * Comprehensive Metabolic Panel 07/24/23 * Comprehensive Metabolic Panel 01/23/24 * PT 07/24/23 * PT 01/23/24 Radiology* US Liver 08/16/23 [facility] Future Appointments Appointment Date:01/08/2024 12:15:00 PM Scheduled Provider:Shaun Goode MD Location:[facility] Digestive [facility] Appointment Type:[facility] Follow Up Appointment Date:04/14/2024 01:00:00 PM Scheduled Provider:Dontae Hernández PA-C [facility] Type:Cardiology Follow Up (FT) Future Scheduled Tests Laboratory* Alpha Fetoprotein Tumor Marker 07/24/23 * Alpha Fetoprotein Tumor Marker 01/23/24 * CBC w/ Auto Diff 07/24/23 * CBC w/ Auto Diff 01/23/24 * Comprehensive Metabolic Panel 07/24/23 * Comprehensive Metabolic Panel 01/23/24 * PT 07/24/23 * PT 01/23/24 Radiology* US Liver 08/16/23 [facility] [employer] Other Evaluation note* Diagnosis Thrombocytopenia (HCC) Thrombocytopenia, unspecified 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 documented in this encounter [facility] general Narrative - Reported* Type Description [...] History septic shock Hospitalization History Sepsis 07/07/2020 [facility] Other history general Narrative - Reported* Type [...] History septic shock Hospitalization History Sepsis 07/07/2020 [facility] Other history general Narrative - Reported* Type [...] Sepsis 07/07/2020 Hospitalization History Covid positive 01/17/23 [facility] Other Hospital course Narrative No data available for this section [facility] No data available for this section [facility] No data available for this section [facility] Summary Purpose Family History No [...] Callahan - will scan in reports from [facility] last week Diagnosis 1 Sepsis due to Staphy lococcus (A41.2) Referral Organization [facility] tok tok tok mana Referring Provider First Name Carmen Referring Provider Last Name Yael Referring Provider Specialty [facility] [employer] Referred Organization [facility] Infectious Dis ease Referred Provider Blayne Callahan Referred Address [address] [place],[address] Referred Provider Specialty Infectious D isease Referral Priority Routine General Notes Itzel Parekh 03:10:38 PM >received today, labs, and notes attached, locked and faxed P2P Itzel Parekh 04/18/2022 10:54:24 AM >per Dr. Callahan pt does not need to be seen to treat Reason 06/11/22 Labs pend ing, has fibro. strong family history of autoimmune issues. Diagnosis 1 Myalgia (M79.10) Referral Organization [facility] tok tok tok lincain Referring Provider First Name Carmen Referring Provider Last Name Yael Referring Provider Specialty Family Medi cine Referred Organization [facility] Referred Provider Daniel Gomez Referred Address [address] [place],[address] Referred Provider Specialty Rheumatology Referral Priority Routine Referral Appointment Date 2022-06-11 General Notes Itzel Parekh 03:45:56 PM >received today, labs pending. ins card attached, notes locked and referral faxed Itzel Parekh 04/27/2022 10:22:51 AM >faxed first attempt letter Itzel Parekh 04/30/2022 02:17:43 PM >received fax with appt date and time Reason 06/28/22 Pt wants to see the [employer] in [facility] - phone is [phone]. Please send same info that was sent to the referral for Dr. Gomez. Thanks Diagnosis 1 Dysuria (R30.0) [facility] Referring Provider First Name Caremn Referring Provider Last Name Yael Referring Provider [facility] [employer] Referred Organization Unknown Facility Referred Provider Specialty Immunology Referral Priority Routine Referral Appointment Date 2022-06-28 General Notes Itzel Parekh 11:00:51 AM >received today, attachments made, notes locked, referral faxed Itzel Parekh 06/20/2022 01:01:04 PM >faxed first attempt letter Itzel Parekh 06/21/2022 08:59:47 AM >RECEIVED FAX WITH APPT DATE AND TIME Clinical Notes p: [phone] f: [id number] Reason 06/28/22 Pt wants to see the [employer] in [facility] - phone is [phone]. Please send same info that was sent to the referral for Dr. Gmoez. Thanks Diagnosis 1 Dysuria (R30.0) Referral Organization [facility] Referring Provider First Name Carmen Referring Provider Last Name Yael Referring Provider Specialty [facility] [employer] Referred Organization Unknown Facility Referred Provider Specialty [...] for review. Closing referral Clinical Notes p: [phone] f: [phone] Additional Source Comments INFORMATION SOURCE (unrecogn ized section and content) DATE CREATED AUTHOR 02/05/2021 [facility] DATE CREATED AUTHOR AUTHOR'S ORGANIZ ATION 08/12/2021 [facility] DATE CREATED AUTHOR AUTHOR'S ORGANIZ ATION 07/28/2022 [facility] DATE CREATED AUTHOR AUTHOR'S ORGANIZ ATION 08/16/2022 [facility] DATE CREATED AUTHOR AUTHOR'S ORGANIZ ATION 04/17/2023 [facility] DATE CREATED AUTHOR AUTHOR'S ORGANIZ ATION 10/09/2023 [facility] DATE CREATED AUTHOR AUTHOR'S ORGANIZ ATION 12/07/2023 [facility] Source Comments (unrecognize d section and content) In the event this informatio n is protected by the Federal Confidentiality of Alcohol and Drug Abuse Patient Records regulations: The Federal rules restrict any use of the information to criminally investigate or prosecute any alcohol or drug abuse patient.[facility] the event this information is protected by the Federal Confidentiality of Alcohol and Drug Abuse Patient Records regulations: The Federal rules restrict any use of the information to criminally investigate or prosecute any alcohol or drug abuse patient.[facility] Reason for Visit (unrecogniz ed section and content) Reason Comments Appointment Care Teams (unrecognized sec tion and content) Inventory Representative Relationship Specialty Start Date End Date Carmen Conley MD [address] [place] [address] PCP - General Family Practice 08/04/20 Inventory Representative Relationship Specialty Start Date End Date Carmen Conley MD [address] [place] [address] PCP - General Family Medicine [...] BE BASED ON THE PRIMARY CLINICAL RECORDS. [facility] [employer] [facility]. provides no warranty or guarantee of the accuracy or completeness of information in this document.
[2023-12-19 19:37] LABS: Internal Control Within Normal Limits; SARS-CoV-2 Ag NEGATIVE (NEGATIVE)
--- NOTE | 2023-12-19 20:15 | XR_ITS ---
The [address] [address] Patient Name: EDWARD GEE MRN: [id number] date: 1950 Sex: F Assigned Patient Location: ER Current Patient Location: ED.MAIN Accession/Order Number: [id number] Exam Date: 12/19/2023 20:25 Report Date: 12/19/2023 21:30 At the request of: VIRY BRAXTON Procedure: XR chest 2V TWO-VIEW CHEST RADIOGRAPH, 12/19/2023 8:25 PM EDT: COMPARISON: Chest, 05/25/2023 and 02/01/2023. CLINICAL HISTORY: cough, tired but cold sweats and shortness of breath for 3 weeks. 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 No acute cardiopulmonary disease. No pulmonary edema, pneumothorax, or pleural effusion. Normal heart size. No acute osseous abnormality. Orthopedic suture in the left lateral humeral head redemonstrated. XR/XR chest 2V IMPRESSION: No acute abnormality identified. Electronically authenticated by: Chris DELACRUZ Date: 12/19/2023 21:30
[2023-12-19 20:35] VITALS: BP 161/88; PULSE 80; O2SAT 97
[2023-12-19] MEDS: DEXAMETHASONE SOD PHOS 10 MG/ML VIAL PO (20:47)
[2023-12-19 20:59] LABS: Internal Control Within Normal Limits; Strep A Antigen Screen Negative
--- NOTE | 2023-12-19 21:21 | ED_ITS ---
HPI - URI/Sore Throat General Chief Complaint: Upper Respiratory Infection Stated Complaint: Upper Respiratory Infection Time Seen by Provider: 12/19/23 20:15 Source: patient Limitations: no limitations History of Present Illness HPI Narrative: 73-year-old female presents here with a chief complaining with 3-week history of cough congestion sore throat. Patient states she had films and lab work performed by her primary care physician she does not know the results of those films. Patient denies any fevers but states she has been chilled. Patient has a hoarseness to her voice there is no peritonsillar abscess appreciated she is tolerating secretions well. MD elicited complaint: Reports sore throat, rhinorrhea, nasal congestion and sinus pain Related Data Home Medications ?Medication ?Instructions ?Recorded ?Confirmed benazepril 20 mg tablet 20 mg PO DAILY 01/17/23 12/19/23 citalopram 40 mg tablet (Celexa) 40 mg PO DAILY 01/17/23 12/19/23 levothyroxine 50 mcg tablet 50 mcg PO DAILY 01/17/23 12/19/23 (Euthyrox) trazodone 50 mg tablet 50 mg PO DAILY 01/17/23 12/19/23 atorvastatin 10 mg tablet 10 mg PO QPM 05/25/23 12/19/23 lorazepam 0.5 mg tablet (Ativan) 0.25 mg PO DAILY PRN anxiety 10/28/23 12/19/23 metoprolol tartrate 25 mg tablet 25 mg PO DAILY 10/28/23 12/19/23 pantoprazole 40 mg tablet,delayed 40 mg PO DAILY 10/28/23 12/19/23 release tizanidine 4 mg capsule 4 mg PO DAILY 10/28/23 12/19/23 diphenhydramine HCl 25 mg tablet 25 mg PO Q8H 12/16/23 12/16/23 (Allergy Medicine) Previous Rx's ?Medication ?Instructions ?Recorded cephalexin 500 mg capsule 500 mg PO BID 10 days #20 caps 12/19/23 Allergies Allergy/AdvReac Type Severity Reaction Status Date / Time adhesive tape Allergy Unknown Rash Verified 12/19/23 19:08 Sulfa (Sulfonamide Allergy Unknown Rash Verified 12/19/23 19:08 Antibiotics) Review of Systems ROS Narrative All Systems are negative except as noted/marked.All systems reviewed and otherwise negative [facility] Medical History (Updated 12/19/23 @ 21:20 by Stephanie Washington) Sjogren syndrome ?M35.00 - Sjogren syndrome, unspecified (ICD-10) Hypothyroidism ?E03.9 - Hypothyroidism, unspecified (ICD-10) Low back pain ?M54.50 - Low back pain, unspecified (ICD-10) High cholesterol ?E78.00 - Pure hypercholesterolemia, unspecified (ICD-10) Cystocele with rectocele ?N81.10 - Cystocele, unspecified (ICD-10) ?N81.6 - Rectocele (ICD-10) Rheumatoid arthritis ?M06.9 - Rheumatoid arthritis, unspecified (ICD-10) Fibromyalgia ?M79.7 - Fibromyalgia (ICD-10) Anxiety ?F41.9 - Anxiety disorder, unspecified (ICD-10) Acid reflux ?K21.9 - Gastro-esophageal reflux disease without esophagitis (ICD-10) Diabetes ?E11.9 - Type 2 diabetes mellitus without complications (ICD-10) Cirrhosis of liver ?K74.60 - Unspecified cirrhosis of liver (ICD-10) High blood pressure ?I10 - Essential (primary) hypertension (ICD-10) Irregular heart beat ?I49.9 - Cardiac arrhythmia, unspecified (ICD-10) Surgical History (Updated 12/03/23 @ 16:30 by Lyric Feliciano) H/O bladder repair surgery ?Z98.890 - Other specified postprocedural states (ICD-10) History of cholecystectomy ?Z90.49 - Acquired absence of other specified parts of digestive tract (ICD- 10) H/O: hysterectomy ?Z90.710 - Acquired absence of both cervix and uterus (ICD-10) H/O arthroscopy of shoulder ?Z98.890 - Other specified postprocedural states (ICD-10) History of tonsillectomy and adenoidectomy ?Z90.89 - Acquired absence of other organs (ICD-10) Social History Smoking status: Never smoker Little interest or pleasure in doing things: not at all Feeling down, depressed, or hopeless: not at all Exam Narrative Exam Narrative: Nurses note and vital signs reviewed and patient is not hypoxic. General: The patient appears well and in no apparent distress. Patient is resting comfortably on cart. Skin: Warm, dry, no pallor noted. There is no rash noted. Head: Normocephalic, atraumatic Eye: Normal conjunctiva, no drainage, EOMI. PERRL Ears, Nose, Mouth, and Throat: Hoarseness of voice, no peritonsillar abscess, mild erythema posterior oropharynx. Oral mucosa is moist. Nares patent. Mouth without vesicles. Ear canals patent. Tm's without Erythema Cardiovascular: Regular Rate and Rhythm Respiratory: Patient is in no distress, no accessory muscle use, lungs are clear to auscultation, no wheezing, rales or rhonchi Musculoskeletal: The patient has no evidence of calf tenderness, no pitting edema, symmetrical pulses noted bilaterally Neurological: A&O x4, normal speech Psychiatric: Cooperative Constitutional Vital Signs, click to edit/add: Last Vital Signs Temp 98.2 F 12/19/23 19:08 Pulse 80 12/19/23 20:35 Resp 18 12/19/23 20:35 BP 161/88 H 12/19/23 20:35 Pulse Ox 97 12/19/23 20:35 O2 Del Method Room Air 12/19/23 20:35 Course Vital Signs Vital signs: Vital Signs Temperature 98.2 F 12/19/23 19:08 Pulse Rate 104 H 12/19/23 19:08 Respiratory Rate 18 12/19/23 19:08 Blood Pressure 167/97 H 12/19/23 19:08 Pulse Oximetry 98 12/19/23 19:08 Oxygen Delivery Method Room Air 12/19/23 19:08 Temperature 98.2 F 12/19/23 19:08 Pulse Rate 80 12/19/23 20:35 Respiratory Rate 18 12/19/23 20:35 Blood Pressure 161/88 H 12/19/23 20:35 Pulse Oximetry 97 12/19/23 20:35 Oxygen Delivery Method Room Air 12/19/23 20:35 MDM - URI/Sore Throat Differential Diagnosis Differential diagnosis: Likely upper respiratory infection, sinusitis, viral infection and pharyngitis Medical Records Attestation: I reviewed the patient's medical records. Medical records narrative: 73-year-old female presents here with a chief complaining with 3-week history of cough congestion sore throat. Patient states she had films and lab work performed by her primary care physician she does not know the results of those films. Patient denies any fevers but states she has been chilled. Patient has a hoarseness to her voice there is no peritonsillar abscess appreciated she is tolerating secretions well. Upon arrival to the emergency room I did review patient's lab work she had performed today's rapid strep and COVID are negative. CBC BMP performed by primary care physician were also negative. Chest x-ray was read negative by radiology. Patient was medicated here with one-time dose of steroid to help with sore throat and swelling. Patient also prophylactically be placed on Keflex she states she has been sick for 3 weeks. She does have a history of type 2 diabetes A1c was noted to be 7.4. I did explain to the patient that she needs to have this followed up with her primary care physician she is currently taking Ozempic. Patient warned to also keep track of her blood sugars while on antibiotics. Patient verbalized understanding agrees with plan of care Lab Data Attestation: I reviewed the patient's lab results. Labs: Lab Results 12/19/23 12/19/23 Range/Units 19:18 20:49 SARS-CoV-2 Ag (CV2AG) Negative (NEGATIVE) Streptococcus Screen Negative Imaging Data Chest x-ray: Radiologist's impression: ITS Impressions Chest X-Ray 12/19/23 20:15 IMPRESSION: No acute abnormality identified. Electronically authenticated by: Chris DELACRUZ Date: 12/19/2023 21:30 Discharge Plan Discharge Chief Complaint: Upper Respiratory Infection Clinical Impression: Pharyngitis Patient Disposition: Home, Self-Care Time of Disposition Decision: 21:20 Condition: Good Prescriptions / Home Meds: New cephalexin 500 mg capsule 500 mg PO BID 10 Days Qty: 20 0RF No Action lorazepam [Ativan] 0.5 mg tablet 0.25 mg PO DAILY PRN (Reason: anxiety) tizanidine 4 mg capsule 4 mg PO DAILY metoprolol tartrate 25 mg tablet 25 mg PO DAILY pantoprazole 40 mg tablet,delayed release (DR/EC) 40 mg PO DAILY diphenhydramine HCl [Allergy Medicine] 25 mg tablet 25 mg PO Q8H trazodone 50 mg tablet 50 mg PO DAILY benazepril 20 mg tablet 20 mg PO DAILY citalopram [Celexa] 40 mg tablet 40 mg PO DAILY levothyroxine [Euthyrox] 50 mcg tablet 50 mcg PO DAILY atorvastatin 10 mg tablet 10 mg PO QPM Print Language: Iranian Instructions: Pharyngitis (ED), Upper Respiratory Infection (ED) Referrals: Flor Mosqueda MD [Primary Care Provider] - 1 week Discharge Date/Time: 12/19/23 21:30
[2023-12-19] MEDS: CEPHALEXIN 500 MG CAPSULE PO (21:24)
== END 2023-12-19 21:30 | disposition home or self-care (01) ==
PROVIDERS: Physician Assistant; Emergency Provider Internal Medicine; PCP Family Medicine
DX: J02.9 Acute pharyngitis, unspecified (principal); Z20.822 Contact with and (suspected) exposure to COVID-19
CPT/HCPCS: 71046; 87070; 87811; 87880; 99285; J1100

== ENCOUNTER 2023-12-21 21:13 | Emergency (ER) | payer MEDICARE, OTHER, SELFPAY ==
[2023-12-21] VITALS (11 sets, daily range): BP systolic 140–160; BP diastolic 78–90; PULSE 80–101; TEMP 36.4; O2SAT 98–99
--- OUTSIDE RECORDS SUMMARY | 2023-12-21 21:19 | XMS_ITS | CCD ---
Author Organization [facility] Care Team Providers Care Director [employer] Name Role Phone Carmen Conley MD Primary Care Provider Carmen Conley Attending Unavailable Carmen Conley Primary [...] CONLEY, DR CARMEN Riggins Primary Care Unavailable [place], DR HAYLEY Martinez Consulting Unavailable CONLEY, DR [...] Attending Unavailable CARMEN CONLEY Primary Care Physician [phone] JANUSZ Hernández Attending Unavailable NONE, XXXX Referring [...] Translations: [sulfa drugs] Drug Allergy Weal (disorder) [facility] (2 sources) Latex Drug Allergy 09-07-19 17 Unknown [facility] (2 sources) Sulfonamides (Antibiotic) Drug Allergy 09-06-19 17 Anaphylaxis [facility] (20 sources) Latex Propensity to adverse reactions Unknown [facility] (20 sources) Sulfonamides (Antibiotic) Propensity to adverse reactions Unknown [facility] Other (1 source) Latex Drug allergy (disorder) 10-15-19 16 [facility] (1 source) Sulfonamides (Antibiotic) Drug allergy (disorder) 08-19-19 13 [facility] (13 sources) sulfADIAZINE Drug Allergy 09-12-19 18 Comment:LUNA [facility] Other (12 sources) Adhesive bandage; Translations: [Adhesive Bandage] Drug allergy Eruption of skin (disorder) [facility] (11 sources) Sulfonamides (Antibiotic); Translations: [sulfa drugs] Drug allergy Weal (disorder) [facility] Medications Current Medications Medication Drug Class(es) Dates Sig (Normalized) Sig (Original) [id number] actuat albuterol 0.09 mg/actuat metered dose [...] # 30 cap(s), Refills(s) 5, Pharmacy: [facility]/pharmacy #[id number], 155, cm, 06/26/23 12:22:00 EDT, [...] # 30 tab(s), Refills(s) 2, Pharmacy: [facility]/pharmacy #[id number], 155, cm, 09/05/23 10:04:00 EDT, [...] # 90 tab(s), Refills(s) 3, Pharmacy: [facility]/pharmacy #[id number], 153, cm, 07/24/23 13:54:00 EDT, [...] sources) Long-term current use of insulin; Translations: [supervisor intermediates (current) use of insulin] Episodic Other connective [...] 11-26-2021 Episodic Other aftercare (1 source) Other supervisor intermediates (current) drug therapy; Translations: [OTH 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 Substitutions may have occurred due to the [...] Ozempic, Sub (more content not included)... Normal [facility] Comment on above: Result Comment: Elec tronically Signed By: Edgar BOUDREAUX, Dontae Wolfe\.elyse\Date and Time Signed: 10/08/23 13:53 EDT NM Myocardial Spect Rest/Str ess 1 Dayon 10-02-2023 NM Myocardial Spect Rest/Stress 1 Day Exam Date/Time: 10/01/2023 14:13 EDT Reason for Exam: ventricular tachycardia;Other (please specify) Report [facility] [address] [place] [address] Nuclear Stress Report Name: IVELISSE GEE Study Date: 10/01/2023 12:32 PM Patient Location: [facility] : 1950 (M/d/yyyy) Gender: Female Age: 73 yrs Ethnicity: T Reason For Study: Other (please specify) Ordering Physician: Dontae Hernández Referring Physician: Dontae Hernández Protocol 75514 Pharmacologic Lexiscan stress with Isotope. Study Protocol: [...] Signed by: Deonte Peraza MD Transcribed by: [facility] Technologist: ISAAC [facility] Consent for Treatmenton 09-07 Consent for Treatment [id number]#1.00TIF F [facility] Monitor Recordon 10-01-2023 Monitor Record [id number]#1.00TIF F [facility] Event Monitoron 09-30-2023 Event Monitor EVENT MONITOR [...] BY: Ciaran Villatoro MD ca Dictated: 09/28/2023 [id number] Transcribed: 09/30/2023 [facility] Comment on above: Result Comment: Elec tronically Signed By: Shauna CERRATO, Ciaran Mccabe\.br\Date and Time Signed: 09/30/23 13:51 EDT Consent for Treatmenton 08-08 Consent for Treatment [id number]#1.00TIF F [facility] Heart and Vascular Office/Cl inic Noteon 09-05-2023 [...] # 30 tab(s), Refills(s) 2, Pharmacy: [facility]/pharmacy #[id number], 155, cm, 09/05/23 10:04:00 EDT, [...] with voice recognition artificial intelligence software, specifically Timeliner, KlickSports and or Studio SBV. Substitutions may have occurred due to the [...] Father. Immunizations [facility] (more content not included)... [facility] Comment on above: Result Comment: Elec tronically Signed By: Edgar BOUDREAUX, Dontae Wolfe\harvinder\Date and Time Signed: 09/05/23 12:53 EDT Physician Orderon 09-05-2023 Physician Order [id number]#1.00T IFF [facility] Monitor Recordon 09-03-2023 Monitor Record [id number]#1.00TI FF [facility] Consent for Treatmenton 07-08 Consent for Treatment [id number]#1.00TIF F [facility] Ambulatory Visit Summaryon 0 07-24-2023 Ambulatory Visit [...] EDT With: Rupa CERRATO, Shaun Xiao Where: [facility] Normal [facility] Gastroenterology Office/Clin ic Noteon 07-24-2023 Gastroenterology [...] 1-2 bowel movements every day by using xrra-muz-msnaigx laxatives such as senna Advised to massage [...] # 30 cap(s), Refills(s) 5, Pharmacy: [facility]/pharmacy #[id number], 155, cm, 06/26/23 12:22:00 EDT, Height/Length Dosing, 72.1, kg, 06/26/23 12:22:00 EDT, Weight Dosing pantoprazole, 40 mg = 1 tab(s), Oral, Daily, # 90 tab(s), Refills(s) 3, Pharmacy: [facility]/pharmacy #[id number], 153, cm, 07/24/23 13:54:00 EDT, [...] influenza virus vaccine, inactivated 04/09/2016 Recorded Normal [facility] Comment on above: Result Comment: Elec tronically Signed By: Rupa CERRATO, Shaun Resendiz.br\Date and Time Signed: 07/24/23 14:16 EDT IntraOperative Documentson 0 07-04-2023 IntraOperative Documents [id number]#1.00TI FF [facility] Consenton 07-03-2023 Consent [id number]#1.00TI [facility] Discharge Instructionson Discharge Instructions [id number]#1.00TI [facility] Main OR Intraoperative Recor don 07-03-2023 Main OR Intraoperative Record IntraOp Document Type FT Summary Primary Physician: Shaun Goode MD Finalized Date/Time: 07/03/23 11:58:54 Pt. Name: MARLEN IVELISSE Aiden MannB./Sex: 1950 Female Med Rec #: [id number] Physician: Shaun Goode MD Financial #: [id number] Pt. Type: O Room/Bed: / Admit/Disch: 07/02/23 [...] Alicia MARC, Aba Mcgill CRNA Role Performed Medical Records Library Professor - Primary STAFF MIDWIFE Time In 07/02/23 09:08:00 07/02/23 09:08:00 Time [...] Participants Kristie Shultz, Rupa CERRATO, Shaun Xiao, Aedle Vargas RN, Williams CRNA, Paul A. Time [...] and tissue Entry 1 Skin Integrity Intact, [place], Warm, and Skin Abnormality No Dry Outcomes [...] Yes Left (more content not included)... Normal [facility] Postoperative Documentson Postoperative Documents [id number]#1.00TI FF Normal [facility] Progress Note-Physicianon Progress Note-Physician Patient: IVELISSE [...] selected or recorded. Histories Procedure history: Bladder ([id number]). Comments: 06/26/2023 12:18 EDT - Claritza Cuencaney 15 years ago Gallbladder (62124930). Hysterectomy (849661071). Arm (0236035050). Hand (446232072). Social History Social & Psychosocial Habits Tobacco 06/26/2023 Risk Assessment: Denies Tobacco Use 06/26/2023 Tobacco Use: Never (less than 100 in l . Physical Examination Airway: Mallampati classification: II (soft palate, fauces, uvula visible). Respiratory: adequate air exchange. Cardiovascular: Regular rhythm. Plan [place] [employer] Anesthesiologists (ASA) physical status classification: Class II. Anesthetic Preoperative Plan: Anesthesia General. Normal [facility] Comment on above: Result Comment: Elec tronically Signed By: Brant Friedman Jr, DO\.br\Date and Time Signed: 07/03/23 15:21 EDT Progress Note-Physician Patient: IVELISSE GEE Age: 72 years Sex: Female : 1950 Associated Diagnoses: None Author: Brant Friedman Jr, DO Postoperative Information Postoperative disposition: Postoperative disposition: To PACU. Optimetrix number: Optimetrix number [id number]. Anesthetic utilized: General. Health Status Allergies: Allergic [...] when meets criteria ( To home ). [facility] Comment on above: Result Comment: Elec tronically Signed By: Brant Friedman Jr, DO\.br\Date and Time Signed: 07/03/23 15:20 EDT Consent for Treatmenton 06-07 Consent for Treatment [id number]#1.00TIF F [facility] Discharge Instructionson Discharge Instructions IVELISSE GEE :1950 [...] Doctor Event Name Event Result [facility] Previously Scheduled Follow-Up Appointments August. 2023 2:00 PM EDT With: Karmen CERRATO, Deonte Roth Where: [facility] New Follow Up Appointments after Discharge Follow Up with Rupa CERRATO, ANTIONETTE Luna, [facility] When: Comments: Call for any problems. [...] Document Re-Released: 09/16/2006 ExitCare? Patient Information ?2009 [employer]. Esophagitis Esophagitis is inflammation of the esophagus. [...] to the (more content not included)... Normal [facility] Comment on above: Result Comment: Elec [...] # 30 cap(s), Refills(s) 5, Pharmacy: [facility]/pharmacy #[id number], 155, cm, 06/26/23 12:22:00 EDT, [...] status post biopsies Images Procedure images: Rechd_video_ [id number].jpg Rec_hd_video_ [id number].jpg Rec_hd_video_ [id number].jpg Rec_hd_video_ [id number].jpg Rec_hd_video_ [id number].jpg Rec_hd_video_ [id number].jpg . Post-Procedure Complications: none. Estimated blood loss: none. Specimens: sent to pathology. Devices/ implants: none left in place. Impression and Plan EGD: Diagnosis: Esophagitis, reflux (IPK24-FP K21.00, Working, Medical). Course: Progressing as expected. Education and Follow-up: Counseled: Family. Notes: Start Protonix 40 mg once daily Might benefit from Carafate in the future. Maryuri [facility] Comment on above: Other Comment: Kathy hernandez Attachment - attachment storage system not supported [id number] Can be viewed in source system Missing Attachment - attachment storage system not supported [id number] Can be viewed in source system Missing Attachment - attachment storage system not supported [id number] Can be viewed in source system Missing Attachment - attachment storage system not supported [id number] Can be viewed in source system Missing Attachment - attachment storage system not supported [id number] Can be viewed in source system Missing Attachment - attachment storage system not supported [id number] Can be viewed in source system Main OR PACU I Recordon 06-07 Main OR PACU I Record PACU Phase I Docum ent Type FT Summary Primary Physician: Shaun Goode MD Finalized Date/Time: 07/02/23 10:08:53 Pt. Name: MARLEN IVELISSE Davidson./Sex: 1950 Female Med Rec #: [id number] Physician: Shaun Goode MD Financial #: [id number] Pt. Type: O Room/Bed: / Admit/Disch: 07/02/23 [...] By: Elma Vanessa I 07/02/23 10:08 Normal [facility] Main OR Preoperative Recordo n 07-02-2023 Main OR Preoperative Record Holding Area Document Type FT Summary Primary Physician: Shaun Goode MD Finalized Date/Time: 07/02/23 08:43:45 Pt. Name: IVELISSE GEE/Sex: 1950 Female Med Rec #: [id number] Physician: Shaun Goode MD Financial #: [id number] Pt. Type: O Room/Bed: / Admit/Disch: 07/02/23 [...] By: Alex Calhoun RN 07/02/23 08:43 Normal [facility] Monitor Recordon 07-02-2023 Monitor Record [id number]#1.00TI FF Normal [facility] Monitor Record [id number]#1.00TI FF Normal [facility] AFPon 06-27-2023 AFP.tumor marker [Mass/Vol] 3.5 ng/mL Invalid Interpretation Code 0.0-9.2 [facility] Comment on above: Result Comment: [employer] [employer] Electrochemiluminescence Immunoassay (ECLIA) Values obtained with different assay methods or kits cannot be used interchangeably. Results cannot be interpreted as absolute evidence of the presence or absence of malignant disease. This test is not interpretable in females. Performed at: [address] [id number] PhD Isidoro Pak Performed By: #### 2 [id number] ####[facility] [address] [place] [address] Consent for Procedure/Surger yon 06-27-2023 Consent for Procedure/Surgery [id number]#1.00TIF F Normal [facility] Ambulatory Visit Summaryon 0 06-26-2023 Ambulatory [...] you for choosing us for your care. [facility] Consent for Treatmenton 06-07 Consent for Treatment [id number]#1.00TIF F Normal [facility] Gastroenterology Office/Clin ic Noteon 06-26-2023 Gastroenterology [...] 1-2 bowel movements every day by using xwfx-sdu-wzrcztu laxatives such as senna Advised to massage [...] influenza virus vaccine, inactivated 04/09/2016 Recorded Normal [facility] Comment on above: Result Comment: Elec tronically Signed By: Rupa CERRATO, Shaun Resendiz.elyse\Date and Time Signed: 06/26/23 13:09 EDT Physician Orderon 06-24-2023 Physician Order [id number]#1.00TIFF Normal [facility] Heart and Vascular Office/Cl inic Noteon [...] appointment on 06/26/2023. She went back to [facility], although it made her feel unwell. [...] with voice recognition artificial intelligence software, specifically Timeliner, KlickSports and or Studio SBV. Substitutions may have occurred due to the inherent limitations of voice recognition and artificial intelligence software. ATTESTATION: Documentation services were performed after patient or guardian consented to allow [employer] to record this visit. SAMUEL skin care specialist and provider reviewed before signing. SAMUEL: [...] History Tobacco - Denies Tobacco Use, 06/21/2023 [facility] Comment on above: Result Comment: Elec tronically [...] EDT With: Rupa CERRATO, Shaun Xiao Where: [facility] Consent for Treatmenton 06-06 Consent for Treatment [id number]#1.00TIF F [facility] Physician Referralon 024 Physician Referral [id number]#1.00TIF F [facility] Referrals Officeon 4 Referrals Office [id number]#1.00TIF F [facility] Physician Orderon 05-30-2023 Physician Order [id number]#1.00TIF F Normal [facility] Referrals Officeon Referrals Office [id number]#1.00TIF F Normal [facility] CREATININEon 08-08-2022 Creatinine [Mass/Vol] 0.94 mg/dL Normal 0.55-1.02 [facility] Comment on above: Performed By: #### L IPA, HSTROPN, TSH, CMP #### [facility] [address] [address] [address] Juan Zamarripa EGFR-AF LATVIAN >60 Normal >=60 [facility] Comment on above: Performed By: #### L IPA, HSTROPN, TSH, CMP #### [facility] [address] [address] [address] Juan Zamarripa EGFR-NON AF LATVIAN 58 mL/min/1.73m2 Critically low >=60 [facility] Comment on above: Performed By: #### L IPA, HSTROPN, TSH, CMP #### [facility] [address] [address] ABD/PELVIS WO CONon [...] by: CARO SIBLEY Date: 2022-08-08 13:42 Normal [facility] Urine Cultureon 07-24-2022 Bacteria identified Cx Nom (U) No Growth 2 Days PERFORMED BY: [place] [address] PATHOLOGIST VALUE STREAM COACH JAIMIE RIVERA M.D. Normal [facility] Comment on above: Performed By: #### C UU #### [address] PNEUMOCOCCAL IM (23 SEROTYPE )on 07-07-2022 Pneumo Ab Type 1* 2.8 ug/mL Normal >1.3 [facility] Comment on above: Performed By: #### L IPA, HSTROPN, TSH, CMP #### [facility] [address] [address] [address] Juan Zamarripa Pneumo Ab Type 12 (12F)* 0.2 ug/mL Critically low >1.3 [facility] Comment on above: Performed By: #### L IPA, HSTROPN, TSH, CMP #### [facility] [address] [address] [address] Jaun Zamarripa Pneumo Ab Type 14* >18.7 Normal >1.3 [facility] Comment on above: Performed By: #### L IPA, HSTROPN, TSH, CMP #### [facility] [address] [address] [address] Juan Zamarripa Pneumo Ab Type 17 (17F)* >20.2 Normal >1.3 [facility] Comment on above: Performed By: #### L IPA, HSTROPN, TSH, CMP #### [facility] [address] [place] [address] Dr. Juan Zamarripa Pneumo Ab Type 19 (19F)* 21.7 ug/mL Normal >1.3 [facility] Comment on above: Performed By: #### L IPA, HSTROPN, TSH, CMP #### [facility] [address] [place] [address] Dr. Juan Zamarripa Pneumo Ab Type 2* 5.7 ug/mL Normal >1.3 [facility] Comment on above: Performed By: #### L IPA, HSTROPN, TSH, CMP #### [facility] [address] [place] [address] Dr. Juan Zamarripa Pneumo Ab Type 20* 4.0 ug/mL Normal >1.3 [facility] Comment on above: Performed By: #### L IPA, HSTROPN, TSH, CMP #### [facility] [address] [place] [address] Dr. Juan Zamarripa Pneumo Ab Type 22 (22F)* 1.5 ug/mL Normal >1.3 [facility] Comment on above: Performed By: #### L IPA, HSTROPN, TSH, CMP #### [facility] [address] [place] [address] Dr. Juan Zamarripa Pneumo Ab Type 23 (23F)* 3.4 ug/mL Normal >1.3 [facility] Comment on above: Performed By: #### L IPA, HSTROPN, TSH, CMP #### [facility] [address] [place] [address] Dr. Juan Zamarripa Pneumo Ab Type 26 (6B)* 3.0 ug/mL Normal >1.3 [facility] Comment on above: Performed By: #### L IPA, HSTROPN, TSH, CMP #### [facility] [address] [address] [address] Juan Zamarripa Pneumo Ab Type 3* 1.6 ug/mL Normal >1.3 [facility] Comment on above: Performed By: #### L IPA, HSTROPN, TSH, CMP #### [facility] [address] [place] [address] Dr. Juan Zamarripa Pneumo Ab Type 34 (10A)* 4.4 ug/mL Normal >1.3 [facility] Comment on above: Performed By: #### L IPA, HSTROPN, TSH, CMP #### [facility] [address] [place] [address] Dr. Juan Zamarripa Pneumo Ab Type 4* 1.6 ug/mL Normal >1.3 [facility] Comment on above: Performed By: #### L IPA, HSTROPN, TSH, CMP #### [facility] [address] [place] [address] Dr. Juan Zamarirpa Pneumo Ab Type 43 (11A)* >7.6 Normal >1.3 [facility] Comment on above: Performed By: #### L IPA, HSTROPN, TSH, CMP #### [facility] [address] [place] [address] Dr. Juan Zamarripa Pneumo Ab Type 5* 2.0 ug/mL Normal >1.3 [facility] Comment on above: Performed By: #### L IPA, HSTROPN, TSH, CMP #### [facility] [address] [place] [address] Dr. Juan Zamarripa Pneumo Ab Type 51 (7F)* 0.9 ug/mL Critically low >1.3 [facility] Comment on above: Performed By: #### L IPA, HSTROPN, TSH, CMP #### [facility] [address] [place] [address] Dr. Juan Zamarripa Pneumo Ab Type 54 (15B)* >22.0 Normal >1.3 [facility] Comment on above: Performed By: #### L IPA, HSTROPN, TSH, CMP #### [facility] [address] [place] [address] Dr. Jaun Zamarripa Pneumo Ab Type 56 (18C)* >8.1 Normal >1.3 [facility] Comment on above: Performed By: #### L IPA, HSTROPN, TSH, CMP #### [facility] [address] [place] [address] Dr. Juan Zamarripa Pneumo Ab Type 57 (19A)* 2.5 ug/mL Normal >1.3 [facility] Comment on above: Performed By: #### L IPA, HSTROPN, TSH, CMP #### [facility] [address] [place] [address] Dr. Juan Zamarripa Pneumo Ab Type 68 (9V)* >13.4 Normal >1.3 [facility] Comment on above: Performed By: #### L IPA, HSTROPN, TSH, CMP #### [facility] [address] [place] [address] Dr. Juan Zamarripa Pneumo Ab Type 70 (33F)* >10.1 Normal >1.3 [facility] Comment on above: Result Comment: *Thi s test was developed and its performance characteristics determined by [employer]. It has not been cleared or approved by the U.S. Food and Drug Administration. Performed By: #### L IPA, HSTROPN, TSH, CMP #### [facility] [address] [place] [address] Dr. Juan Zamarripa Pneumo Ab Type 8* 1.2 ug/mL Critically low >1.3 [facility] Comment on above: Performed By: #### L IPA, HSTROPN, TSH, CMP #### [facility] [address] [place] [address] Dr. Juan Zamarripa Pneumo Ab Type 9 (9N)* 1.7 ug/mL Normal >1.3 Th e [facility] Comment on above: Performed By: #### L IPA, HSTROPN, TSH, CMP #### [facility] [address] [place] [address] Dr. Juan Zamarripa BORDETELLA PERTUSSIS AB IGGo n 07-05-2022 B pertussis IgG Ab 1.53 index Invalid Interpretation Code 0.00-0.94 [facility] Comment on above: Result Comment: Clie nt Requested Flag Negative <0.95 Equivocal 0.95 - 1.04 Positive >1.04 Performed By: #### A 1C #### [facility] [address] [place] [address] Dr. Juan Zamarripa TETANUS DIPTHERIA AB PROFILE on 07-05-2022 Diphtheria Antitoxoid Ab 0.29 IU/mL Normal <0.10 [facility] Comment on above: Result Comment: Inte rpretation: Non-Protective <0.10 Protective >=0.10 . For research use only. Performed By: #### C BC #### [facility] [address] [place] [address] Dr. Juan Zamarripa Tetanus Antitoxoid IgG Ab 0.94 IU/mL Normal <0.10 [facility] Comment on above: Result Comment: Inte rpretation: Non-Protective <0.10 Protective >=0.10 Results for this test are for research purposes only by the assay's service correspondent. The performance characteristics of this product have not been established. Results should not be used as a diagnostic procedure without confirmation of the diagnosis by another medically established diagnostic product or procedure. Performed By: #### C BC #### [facility] [address] [place] [address] Dr. Juan Zamarripa HAEMOPHILUS INFLUENZA B IGGo n 07-04-2022 Haemophilus influenzae B IgG 0.21 ug/mL Normal [facility] Comment on above: Result Comment: NOTE : An anti-Hib level of 0.15 ug/mL is generally accepted as the minimum level for protection. Optimal protection post-vaccination requires a level greater than 1.00 ug/mL. Performed By: #### L IPA, HSTROPN, TSH, CMP #### [facility] [address] [place] [address] Dr. Juan Zamarripa IMMUNOGLOBULINS IGA/IGM/IGG QUANTITATIVEon 07-03-2022 Immunoglobulin A, Qn, Serum 219 mg/dL Normal 64-422 [facility] Comment on above: Performed By: #### L IPA, HSTROPN, TSH, CMP #### [facility] [address] [address] [address] Juan Zamarripa Immunoglobulin G, Qn, Serum 1365 mg/dL Normal [phone] [facility] Comment on above: Performed By: #### L IPA, HSTROPN, TSH, CMP #### [facility] [address] [place] [address] [address] Juan Zamarripa Immunoglobulin M, Qn, Serum 66 mg/dL Normal 26-217 [facility] Comment on above: Performed By: #### L IPA, HSTROPN, TSH, CMP #### [facility] [address] [address] [address] Juan Zamarripa LYMPHOCYTE ACTIVITY PROFILEo n 07-03-2022 %CD3+CD25+Lymphs 20.3 % Normal 4.9-25.9 [facility] Comment on above: Result Comment: This test was developed and its performance characteristics determined by [facility]. It has not been cleared or approved by the Food and Drug Administration. Performed at: BN Performed By: #### L YMACT #### [facility] [address] [place] [address] Dr. Juan Zamarripa %CD8+CD57+Lymphs 16.6 % Critically high 0.0-11.3 [facility] Comment on above: Result Comment: This test was developed and its performance characteristics determined by [facility]. It has not been cleared or approved by the Food and Drug Administration. Performed at: BN Performed By: #### L YMACT #### [facility] [address] [place] [address] Dr. Juan Zamarripa Abs CD 4 helper 986 /uL Normal 359-1519 [facility] Comment on above: Result Comment: Perf ormed at: CB Performed By: #### L YMACT #### [facility] [address] [place] [address] Dr. Juan Zamarripa Abs. CD 8 Supp 898 /uL Critically high 109-897 [facility] Comment on above: Result Comment: Perf ormed at: CB Performed By: #### L YMACT #### [facility] [address] [place] [address] Dr. Juan Zamarriap Abs.CD3+CD25+Lymphs 447 /uL Normal 79-535 [facility] Comment on above: Result Comment: This test was developed and its performance characteristics determined by [facility]. It has not been cleared or approved by the Food and Drug Administration. Performed at: CB Performed By: #### L YMACT #### [facility] [address] [address] [address] Juan Zamarripa Abs.CD8+CD57+Lymphs 365 /uL Critically high 0-254 [facility] Comment on above: Result Comment: This test was developed and its performance characteristics determined by [facility]. It has not been cleared or approved by the Food and Drug Administration. Performed at: CB Performed By: #### L YMACT #### [facility] [address] [place] [address] Dr. Juan Zamarripa Absolute CD 3 1918 /uL Normal 622-2402 [facility] Comment on above: Result Comment: Perf ormed at: CB Performed By: #### L YMACT #### [facility] [address] [place] [address] Dr. Juan Zamarripa Basophils (Bld) [#/Vol] 0.0 10*3/uL Normal 0.0-0.2 [facility] Comment on above: Result Comment: Perf ormed at: CB Performed By: #### L YMACT #### [facility] [address] [place] [address] Dr. Juan Zamarripa Basophils/100 WBC (Bld) 1 % Normal Not Estab. T [facility] Comment on above: Result Comment: Perf ormed at: CB Performed By: #### L YMACT #### [facility] [address] [place] [address] Dr. Juan Zamarripa CD4/CD8 Ratio 1.10 Normal 0.92-3.72 [facility] Comment on above: Result Comment: Perf ormed at: BN Performed By: #### L YMACT #### [facility] [address] [place] [address] Dr. Juan Zamarripa Eosinophils (Bld) [#/Vol] 0.1 10*3/uL Normal 0.0-0.4 [facility] Comment on above: Result Comment: Perf ormed at: CB Performed By: #### L YMACT #### [facility] [address] [place] [address] Dr. Juan Zamarripa Eosinophils/100 WBC (Bld) 1 % Normal Not Estab. The [facility] Comment on above: Result Comment: Perf ormed at: CB Performed By: #### L YMACT #### [facility] [address] [place] [address] Dr. Juan Zamarripa Erythrocyte distribution width (RBC) [Ratio] 12.6 % Normal 11.7-15.4 [facility] Comment on above: Result Comment: Perf ormed at: CB Performed By: #### L YMACT #### [facility] [address] [place] [address] Dr. Juan Zamarripa Hematocrit (Bld) [Volume fraction] 41.9 % Normal 34.0-46.6 [facility] Comment on above: Result Comment: Perf ormed at: CB Performed By: #### L YMACT #### [facility] [address] [place] [address] Dr. Juan Zamarripa Hematology Comments Normal [facility] Comment on above: Result Comment: Perf ormed at: CB Performed By: #### L YMACT #### [facility] [address] [place] [address] Dr. Juan Zamarripa Hemoglobin (Bld) [Mass/Vol] 14.2 g/dL Normal 11.1-15.9 [facility] Comment on above: Result Comment: Perf ormed at: CB Performed By: #### L YMACT #### [facility] [address] [place] [address] Dr. Juan Zamarripa Immature Cells Normal [facility] Comment on above: Result Comment: Perf ormed at: CB Performed By: #### L YMACT #### [facility] [address] [place] [address] Dr. Juan Zamarripa Immature Grans (Abs) 0.0 x10E3/uL Normal 0.0-0.1 [facility] Comment on above: Result Comment: Perf ormed at: CB Performed By: #### L YMACT #### [facility] [address] [place] [address] Dr. Juan Zamarripa Immature granulocytes/100 WBC (Bld) 0 % Normal Not Estab. [facility] Comment on above: Result Comment: Perf ormed at: CB Performed By: #### L YMACT #### [facility] [address] [place] [address] Dr. Juan Zamarripa Lymphocytes (Bld) [#/Vol] 2.2 10*3/uL Normal 0.7-3.1 [facility] Comment on above: Result Comment: Perf ormed at: CB Performed By: #### L YMACT #### [facility] [address] [place] [address] Dr. Juan Zamarripa Lymphocytes/100 WBC (Bld) 87.2 % Critically high 57.5-86.2 [facility] Comment on above: Result Comment: Perf ormed at: BN Performed By: #### L YMACT #### [facility] [address] [place] [address] Dr. Juan Zamarripa Lymphocytes/100 WBC (Bld) 44.8 % Normal 30.8-58.5 [facility] Comment on above: Result Comment: Perf ormed at: BN Performed By: #### L YMACT #### [facility] [address] [place] [address] Dr. Juan Zamarripa Lymphocytes/100 WBC (Bld) 40.8 % Critically high 12.0-35.5 [facility] Comment on above: Result Comment: Perf ormed at: BN Performed By: #### L YMACT #### [facility] [address] [place] [address] Dr. Juan Zamarripa Lymphocytes/100 WBC (Bld) 34 % Normal Not Estab. [facility] Comment on above: Result Comment: Perf ormed at: CB Performed By: #### L YMACT #### [facility] [address] [place] [address] Dr. Juan Zamarripa MCH (RBC) [Entitic mass] 31.3 pg Normal 26.6-33.0 [facility] Comment on above: Result Comment: Perf ormed at: CB Performed By: #### L YMACT #### [facility] [address] [place] [address] Dr. Juan Zamarripa MCHC (RBC) [Mass/Vol] 33.9 g/dL Normal 31.5-35.7 [facility] Comment on above: Result Comment: Perf ormed at: CB Performed By: #### L YMACT #### [facility] [address] [place] [address] Dr. Juan Zamarripa MCV (RBC) [Entitic vol] 92 fL Normal 79-97 [facility] Comment on above: Result Comment: Perf ormed at: CB Performed By: #### L YMACT #### [facility] [address] [place] [address] Dr. Juan Zamarripa Monocytes (Bld) [#/Vol] 0.3 10*3/uL Normal 0.1-0.9 [facility] Comment on above: Result Comment: Perf ormed at: CB Performed By: #### L YMACT #### [facility] [address] [place] [address] Dr. Juan Zamarripa Monocytes/100 WBC (Bld) 4 % Normal Not Estab. [facility] Comment on above: Result Comment: Perf ormed at: CB Performed By: #### L YMACT #### [facility] [address] [place] [address] Dr. Juan Zamarripa Neutrophils Absolute 4.0 x10E3/uL Normal 1.4-7.0 [facility] Comment on above: Result Comment: Perf ormed at: CB Performed By: #### L YMACT #### [facility] [address] [place] [address] Dr. Juan Zamarripa Neutrophils/100 WBC (Bld) 60 % Normal Not Estab. [facility] Comment on above: Result Comment: Perf ormed at: CB Performed By: #### L YMACT #### [facility] [address] [place] [address] Dr. Juan Zamarripa NRBC Normal [facility] Comment on above: Result Comment: Perf ormed at: CB Performed By: #### L YMACT #### [facility] [address] [address] [address] Juan Zamarripa Platelets (Bld) [#/Vol] 164 10*3/uL Normal 150-450 [facility] Comment on above: Result Comment: Perf ormed at: CB Performed By: #### L YMACT #### [facility] [address] [address] [address] Juan Zamarripa RBC (Bld) [#/Vol] 4.54 10*6/uL Normal 3.77-5.28 [facility] Comment on above: Result Comment: Perf ormed at: CB Performed By: #### L YMACT #### [facility] [address] [address] [address] Juan Zamarripa WBC (Bld) [#/Vol] 6.6 10*3/uL Normal 3.4-10.8 [facility] Comment on above: Result Comment: Perf ormed at: CB Performed By: #### L YMACT #### [facility] [address] [address] [address] Juan Zamarripa PROF 14(COMP METB)on 023 Albumin [Mass/Vol] 4.1 g/dL Normal 3.4-5.0 [facility] Comment on above: Performed By: #### L IPA, HSTROPN, TSH, CMP #### [facility] [address] [address] [address] Juan Zamarripa Albumin/Globulin [Mass ratio] 1.1 {ratio} Normal [facility] Comment on above: Performed By: #### L IPA, HSTROPN, TSH, CMP #### [facility] [address] [address] [address] Juan Zamarripa ALP [Catalytic activity/Vol] 107 U/L Normal 46-116 [facility] Comment on above: Performed By: #### L IPA, HSTROPN, TSH, CMP #### [facility] [address] [address] [address] Juan Zamarripa ALT [Catalytic activity/Vol] 69 U/L Critically high 14-59 [facility] Comment on above: Performed By: #### L IPA, HSTROPN, TSH, CMP #### [facility] [address] [address] [address] Juan Zamarripa Anion gap [Moles/Vol] 14.0 mmol/L Normal Th e [facility] Comment on above: Performed By: #### L IPA, HSTROPN, TSH, CMP #### [facility] [address] [place] [address] Dr. Juan Zamarripa AST [Catalytic activity/Vol] 31 U/L Normal 15-37 [facility] Comment on above: Performed By: #### L IPA, HSTROPN, TSH, CMP #### [facility] [address] [place] [address] Dr. Juan Zamarripa Bilirubin [Mass/Vol] 0.8 mg/dL Normal 0.2-1.0 [facility] Comment on above: Performed By: #### L IPA, HSTROPN, TSH, CMP #### [facility] [address] [place] [address] Dr. Juan Zamarripa Calcium [Mass/Vol] 9.1 mg/dL Normal 8.5-10.1 [facility] Comment on above: Performed By: #### L IPA, HSTROPN, TSH, CMP #### [facility] [address] [place] [address] Dr. Juan Zamarripa Chloride [Moles/Vol] 104 mmol/L Normal 98-107 [facility] Comment on above: Performed By: #### L IPA, HSTROPN, TSH, CMP #### [facility] [address] [place] [address] Dr. Juan Zamarripa CO2 [Moles/Vol] 28.1 mmol/L Normal 21.0-32.0 [facility] Comment on above: Performed By: #### L IPA, HSTROPN, TSH, CMP #### [facility] [address] [place] [address] Dr. Juan Zamarripa Creatinine [Mass/Vol] 0.77 mg/dL Normal 0.55-1.02 [facility] Comment on above: Performed By: #### L IPA, HSTROPN, TSH, CMP #### [facility] [address] [address] [address] Juan Zamarripa EGFR-AF LATVIAN >60 Normal >=60 [facility] Comment on above: Performed By: #### L IPA, HSTROPN, TSH, CMP #### [facility] [address] [address] [address] Juan Zamarripa EGFR-NON AF LATVIAN >60 Normal >=60 [facility] Comment on above: Performed By: #### L IPA, HSTROPN, TSH, CMP #### [facility] [address] [address] [address] Juan Zamarripa Globulin (S) [Mass/Vol] 3.9 g/dL Normal [facility] Comment on above: Performed By: #### L IPA, HSTROPN, TSH, CMP #### [facility] [address] [address] [address] Juan Zamarripa Glucose [Mass/Vol] 186 mg/dL Critically high 74-106 [facility] Comment on above: Performed By: #### L IPA, HSTROPN, TSH, CMP #### [facility] [address] [address] [address] Juan Zamarripa Potassium [Moles/Vol] 4.1 mmol/L Normal 3.5-5.1 [facility] Comment on above: Performed By: #### L IPA, HSTROPN, TSH, CMP #### [facility] [address] [address] [address] Juan Zamarripa Protein [Mass/Vol] 8.0 g/dL Normal 6.4-8.2 [facility] Comment on above: Performed By: #### L IPA, HSTROPN, TSH, CMP #### [facility] [address] [address] [address] Juan Zamarripa Sodium [Moles/Vol] 142 mmol/L Normal 136-145 [facility] Comment on above: Performed By: #### L IPA, HSTROPN, TSH, CMP #### [facility] [address] [address] [address] Juan Zamarripa Urea nitrogen [Mass/Vol] 9.0 mg/dL Normal 7.0-18.0 [facility] Comment on above: Performed By: #### L IPA, HSTROPN, TSH, CMP #### [facility] [address] [address] [address] Juan Zamarripa Urea nitrogen/Creatinine [Mass ratio] 11.7 mg/mg Normal [facility] Comment on above: Performed By: #### L IPA, HSTROPN, TSH, CMP #### [facility] [address] [place] [address] Dr. Juan Zamarripa CULTURE URINEon 06-12-2022 CULTURE URINE Culture Observations : LIGHT GROWTH OF MIXED GENITAL ALDA. NO POTENTIAL PATHOGENS SEEN. Normal [facility] Comment on above: Performed By: #### U RCX #### [facility] [address] [place] [address] Dr. Juan Zamarripa UA RANDOMon 06-12-2022 Glucose Ql (U) 100 mg/dl Abnormal NEGATIVE [facility] Comment on above: Performed By: #### U A #### [facility] [address] [place] [address] Dr. Juan Zamarripa LEUKOCYTES SMALL Abnormal NEGATIVE [facility] Comment on above: Performed By: #### U A #### [facility] [address] [place] [address] Dr. Juan Zamarripa SPEC GRAVITY 1.015 Normal 1.005-<=1. 025 [facility] Comment on above: Performed By: #### U A #### [facility] [address] [place] [address] Dr. Juan Zamarripa UA PROTEIN Negative Normal NEGATIVE/ TRACE [facility] Comment on above: Performed By: #### U A #### [facility] [address] [place] [address] Dr. Juan Zamarripa Urobilinogen Qn (U) 0.2 {Amee'U}/dL Normal 0.2 - 1. 0 [facility] Comment on above: Performed By: #### U A #### [facility] [address] [address] [address] Juan Zamarripa Urinalysison 06-12-2022 Glucose Ql (U) 100 mg/dl Abnormal NEGATIVE mg/dl [employer] Other Urinalysis see note [employer] Other Urinalysis 1.015 1.005-<=1. 025 [employer] Other Urinalysis Negative NEGATIVE/ TRACE mg/dl [employer] Other Urinalysis 0.2 EU/dl 0.2 - 1.0 EU/dl [employer] Other Urinalysis SMALL Abnormal NEGATIVE [employer] Other Bilirubin Ql (U) Negative Normal NEGATIVE [employer] Other Comment on above: Performed By: #### U A #### [facility] [address] [place] [address] Dr. Juan Zamarripa Clarity (U) CLEAR Normal CLEAR [employer] Other Comment on above: Performed By: #### U A #### [facility] [address] [place] [address] Dr. Juan Zamarripa Color (U) LT. YELLOW Normal YELLOW [employer] Other Comment on above: Performed By: #### U A #### [facility] [address] [address] [address] Juan Zamarripa Hemoglobin Ql (U) Negative Normal NEGATIVE [employer] Other Comment on above: Performed By: #### U A #### [facility] [address] [address] [address] Juan Zamarripa Ketones Ql (U) Negative Normal NEGATIVE [employer] Other Comment on above: Performed By: #### U A #### [facility] [address] [place] [address] Dr. Juan Zamarripa Nitrite Ql (U) Negative Normal NEGATIVE [employer] Other Comment on above: Performed By: #### U A #### [facility] [address] [place] [address] Dr. Juan Zamarripa pH (U) 6.0 [pH] Normal 5-9 [employer] Other Comment on above: Performed By: #### U A #### [facility] [address] [place] [address] Dr. Juan Zamarripa CULTURE URINEon 04-25-2022 CULTURE [...] S F Nitrofurantoin <=16 S F Normal [facility] Comment on above: Performed By: #### A 1C #### [facility] [address] [place] [address] Dr. Juan Zamarripa TL by IFAon 04-24-2022 Antinuclear Antibodies, IFA Positive Abnormal [facility] Comment on above: Result Comment: Nega tive <1:80 Borderline 1:80 Positive >1:80 Performed By: #### L IPA, HSTROPN, TSH, CMP #### [facility] [address] [place] [address] Dr. Juan Zamarripa Centriole Pattern Normal [facility] Comment on above: Performed By: #### L IPA, HSTROPN, TSH, CMP #### [facility] [address] [place] [address] Dr. Juan Zamarripa Centromere Pattern Normal [facility] Comment on above: Performed By: #### L IPA, HSTROPN, TSH, CMP #### [facility] [address] [place] [address] Dr. Juan Zamarripa Homogeneous Pattern 1:160 Critically high [facility] Comment on above: Result Comment: ICAP nomenclature: AC-1 Performed By: #### L IPA, HSTROPN, TSH, CMP #### [facility] [address] [address] [address] Juan Zamarripa Midbody Pattern Normal [facility] Comment on above: Performed By: #### L IPA, HSTROPN, TSH, CMP #### [facility] [address] [place], [place] [address] Dr. Juan Zamarripa Note: Comment Normal [facility] Comment on above: Result Comment: For more [...] titers Nucleosomes, Histones Drug-induced SLE Speckled Sm, REGISTERED PHYSICAL THERAPIST, SCL-70, SLE,MCTD,PSS (diffuse form), SS-A/SS-B Sjogrens Nucleolar SCL-70, PM-1/SCL High titers Scleroderma, PM/DM Centromere Centromere PSS (limited form) w/Crest syndrome variable Nuclear Dot [id number] Primary Biliary Cirrhosis Nuclear GP210, Primary Biliary Cirrhosis Membrane trinity A,B,C Performed By: #### L IPA, HSTROPN, TSH, CMP #### [facility] [address] [place] [address] Dr. Juan Zamarripa Nuclear Dot Pattern Normal [facility] Comment on above: Performed By: #### L IPA, HSTROPN, TSH, CMP #### [facility] [address] [place] [address] Dr. Juan Zamarripa Nuclear Membrane Pattern Normal [facility] Comment on above: Performed By: #### L IPA, HSTROPN, TSH, CMP #### [facility] [address] [address] [address] Juan Zamarripa Nucleolar Pattern Normal [facility] Comment on above: Performed By: #### L IPA, HSTROPN, TSH, CMP #### [facility] [address] [address] [address] Juan Zamarripa PCNA Pattern Normal [facility] Comment on above: Performed By: #### L IPA, HSTROPN, TSH, CMP #### [facility] [address] [place] [address] Dr. Juan Zamarripa Speckled Pattern 1:160 Critically high [facility] Comment on above: Result Comment: ICAP nomenclature: AC-2,4,5,29 Performed By: #### L IPA, HSTROPN, TSH, CMP #### [facility] [address] [place] [address] Dr. Juan Zamarripa Spindle Apparatus Pattern Normal [facility] Comment on above: Performed By: #### L IPA, HSTROPN, TSH, CMP #### [facility] [address] [place] [address] Dr. Juan Zamarripa RHEUMATOID FACTORon 04-24-19 RA Latex Turbid. <10.0 Normal <14.0 [facility] Comment on above: Performed By: #### L IPA, HSTROPN, TSH, CMP #### [facility] [address] [place] [address] Dr. Juan Zamarripa CBC AUTO DIFFon 04-23-2022 BASO # 0.0 103/ul Normal 0.0-0.1 [facility] Comment on above: Performed By: #### C BC #### [facility] [address] [place] [address] Dr. Juan Zamarripa Basophils/100 WBC (Bld) 0.4 % Normal 0.2-2.0 [facility] Comment on above: Performed By: #### C BC #### [facility] [address] [place] [address] Dr. Juan Zamarripa EO # 0.1 103/ul Normal 0.0-0.7 [facility] Comment on above: Performed By: #### C BC #### [facility] [address] [place] [address] Dr. Juan Zamarripa Eosinophils/100 WBC (Bld) 1.8 % Normal 0.9-7.0 [facility] Comment on above: Performed By: #### C BC #### [facility] [address] [place] [address] Dr. Juan Zamarripa Erythrocyte distribution width (RBC) [Ratio] 12.6 % Normal 11.0-15.0 [facility] Comment on above: Performed By: #### C BC #### [facility] [address] [place] [address] Dr. Juan Zamarripa Hematocrit (Bld) [Volume fraction] 36.9 % Normal 36.0-48.0 [facility] Comment on above: Performed By: #### C BC #### [facility] [address] [place] [address] Dr. Juan Zamarripa Hemoglobin (Bld) [Mass/Vol] 12.6 g/dL Normal 12.0-16.0 [facility] Comment on above: Performed By: #### C BC #### [facility] [address] [place] [address] Dr. Juan Zamarripa IG # 0.02 10e3/ul Normal 0.00-0.03 [facility] Comment on above: Performed By: #### C BC #### [facility] [address] [place] [address] Dr. Juan Zamarripa IG % 0.3 % Normal 0.0-0.5 [facility] Comment on above: Performed By: #### C BC #### [facility] [address] [place] [address] Dr. Juan Zamarripa LYMPH # 3.3 103/ul Normal 1.2-3.8 [facility] Comment on above: Performed By: #### C BC #### [facility] [address] [place] [address] Dr. Juan Zamarripa Lymphocytes/100 WBC (Bld) 42.9 % Normal 20.5-60.0 [facility] Comment on above: Performed By: #### C BC #### [facility] [address] [place] [address] Dr. Juan Zamarripa MANUAL DIFF REQ NO Normal [facility] Comment on above: Performed By: #### C BC #### [facility] [address] [place] [address] Dr. Juan Zamarripa MCH (RBC) [Entitic mass] 31.2 pg Normal 26.7-34.0 [facility] Comment on above: Performed By: #### C BC #### [facility] [address] [address] [address] Juan Zamarripa MCHC (RBC) [Mass/Vol] 34.1 g/dL Normal 29.9-35.2 [facility] Comment on above: Performed By: #### C BC #### [facility] [address] [address] [address] Juan Zamarripa MCV (RBC) [Entitic vol] 91.3 fL Normal 81.0-99.0 [facility] Comment on above: Performed By: #### C BC #### [facility] [address] [address] [address] Juan Zamarripa MONO # 0.3 103/ul Normal 0.3-0.8 [facility] Comment on above: Performed By: #### C BC #### [facility] [address] [place] [address] Dr. Juan Zamarripa Monocytes/100 WBC (Bld) 4.4 % Normal 1.7-12.0 [facility] Comment on above: Performed By: #### C BC #### [facility] [address] [place] [address] Dr. Juan Zamarripa NEUT # 3.9 103/ul Normal 1.4-6.5 [facility] Comment on above: Performed By: #### C BC #### [facility] [address] [place] [address] Dr. Juan Zamarripa Neutrophils/100 WBC (Bld) 50.2 % Normal 43.0-75.0 [facility] Comment on above: Performed By: #### C BC #### [facility] [address] [address] [address] Juan Zamarripa Platelet mean volume (Bld) [Entitic vol] 9.0 fL Critically low 9.5-13.5 [facility] Comment on above: Performed By: #### C BC #### [facility] [address] [address] Dr. Juan Zamarripa PLT 158 103/ul Normal 150-450 [facility] Comment on above: Performed By: #### C BC #### [facility] [address] [address] [address] Juan Zamarripa RBC 4.04 106/ul Critically low 4.20-5.40 [facility] Comment on above: Performed By: #### C BC #### [facility] [address] [place] [address] Dr. Juan Zamarripa WBC 7.8 103/ul Normal 4.0-11.0 [facility] Comment on above: Performed By: #### C BC #### [facility] [address] [address] [address] Juan Zamarripa CULTURE BLOODon 04-23-2022 Microscopic examination of blood, culture Culture Observations: NO GROWTH AT 5 DAYS. Normal [facility] Comment on above: Performed By: #### A 1C #### [facility] [address] [place] [address] Dr. Juan Zamarripa PROF 14(COMP METB)on 023 Albumin [Mass/Vol] 4.0 g/dL Normal 3.4-5.0 [facility] Comment on above: Performed By: #### L IPA, HSTROPN, TSH, CMP #### [facility] [address] [place] [address] Dr. Juan Zamarripa Albumin/Globulin [Mass ratio] 1.0 {ratio} Normal [facility] Comment on above: Performed By: #### L IPA, HSTROPN, TSH, CMP #### [facility] [address] [place] [address] Dr. Juan Zamarripa ALP [Catalytic activity/Vol] 87 U/L Normal 46-116 [facility] Comment on above: Performed By: #### L IPA, HSTROPN, TSH, CMP #### [facility] [address] [place] [address] Dr. Juan Zamarripa ALT [Catalytic activity/Vol] 78 U/L Critically high 14-59 [facility] Comment on above: Performed By: #### L IPA, HSTROPN, TSH, CMP #### [facility] [address] [place] [address] Dr. Juan Zamarripa Anion gap [Moles/Vol] 12.4 mmol/L Normal Th e [facility] Comment on above: Performed By: #### L IPA, HSTROPN, TSH, CMP #### [facility] [address] [address] [address] Juan Zamarripa AST [Catalytic activity/Vol] 39 U/L Critically high 15-37 [facility] Comment on above: Performed By: #### L IPA, HSTROPN, TSH, CMP #### [facility] [address] [address] [address] Juan Zamarripa Bilirubin [Mass/Vol] 0.7 mg/dL Normal 0.2-1.0 [facility] Comment on above: Performed By: #### L IPA, HSTROPN, TSH, CMP #### [facility] [address] [place] [address] Dr. Juan Zamarripa Calcium [Mass/Vol] 9.6 mg/dL Normal 8.5-10.1 [facility] Comment on above: Performed By: #### L IPA, HSTROPN, TSH, CMP #### [facility] [address] [address] [address] Juan Zamarripa Chloride [Moles/Vol] 101 mmol/L Normal 98-107 [facility] Comment on above: Performed By: #### L IPA, HSTROPN, TSH, CMP #### [facility] [address] [address] [address] Juan Zamarripa CO2 [Moles/Vol] 29.5 mmol/L Normal 21.0-32.0 [facility] Comment on above: Performed By: #### L IPA, HSTROPN, TSH, CMP #### [facility] [address] [place] [address] Dr. Juan Zamarripa Creatinine [Mass/Vol] 0.84 mg/dL Normal 0.55-1.02 [facility] Comment on above: Performed By: #### L IPA, HSTROPN, TSH, CMP #### [facility] [address] [place] [address] Dr. Juan Zamarripa EGFR-AF LATVIAN >60 Normal >=60 [facility] Comment on above: Performed By: #### L IPA, HSTROPN, TSH, CMP #### [facility] [address] [address] [address] Juan Zamarripa EGFR-NON AF LATVIAN >60 Normal >=60 [facility] Comment on above: Performed By: #### L IPA, HSTROPN, TSH, CMP #### [facility] [address] [address] [address] Juan Zamarripa Globulin (S) [Mass/Vol] 4.0 g/dL Normal [facility] Comment on above: Performed By: #### L IPA, HSTROPN, TSH, CMP #### [facility] [address] [place] [address] Dr. Juan Zamarripa Glucose [Mass/Vol] 208 mg/dL Critically high 74-106 [facility] Comment on above: Performed By: #### L IPA, HSTROPN, TSH, CMP #### [facility] [address] [place] [address] Dr. Juan Zamarripa Potassium [Moles/Vol] 3.9 mmol/L Normal 3.5-5.1 [facility] Comment on above: Performed By: #### L IPA, HSTROPN, TSH, CMP #### [facility] [address] [address] [address] Juan Zamarripa Protein [Mass/Vol] 8.0 g/dL Normal 6.4-8.2 [facility] Comment on above: Performed By: #### L IPA, HSTROPN, TSH, CMP #### [facility] [address] [place] [address] Dr. Juan Zamarripa Sodium [Moles/Vol] 139 mmol/L Normal 136-145 [facility] Comment on above: Performed By: #### L IPA, HSTROPN, TSH, CMP #### [facility] [address] [place] [address] Dr. Juan Zamarripa Urea nitrogen [Mass/Vol] 15.0 mg/dL Normal 7.0-18.0 [facility] Comment on above: Performed By: #### L IPA, HSTROPN, TSH, CMP #### [facility] [address] [place] [address] Dr. Juan Zamarripa Urea nitrogen/Creatinine [Mass ratio] 17.9 mg/mg Normal [facility] Comment on above: Performed By: #### L IPA, HSTROPN, TSH, CMP #### [facility] [address] [place] [address] Dr. Juan Zamarripa SED RATE WESTERGRENon 2022 SED RATE 26 mm/hr Normal <=30 [facility] Comment on above: Performed By: #### L IPA, HSTROPN, TSH, CMP #### [facility] [address] [place] [address] Dr. Juan Zamarripa CULTURE BLOODon 04-18-2022 Microscopic [...] C Trimethoprim/Sulfamethox azole <=10 S C Normal [facility] Comment on above: Performed By: #### A 1C #### [facility] [address] [place] [address] Dr. Juan Zamarripa CBC AUTO DIFFon 04-13-2022 BASO # 0.1 103/ul Normal 0.0-0.1 [facility] Comment on above: Performed By: #### C BC #### [facility] [address] [place] [address] Dr. Juan Zamarripa Basophils/100 WBC (Bld) 0.6 % Normal 0.2-2.0 [facility] Comment on above: Performed By: #### C BC #### [facility] [address] [place] [address] Dr. Juan Zamarripa EO # 0.2 103/ul Normal 0.0-0.7 [facility] Comment on above: Performed By: #### C BC #### [facility] [address] [place] [address] Dr. Juan Zamarripa Eosinophils/100 WBC (Bld) 1.6 % Normal 0.9-7.0 [facility] Comment on above: Performed By: #### C BC #### [facility] [address] [place] [address] Dr. Juan Zamarripa Erythrocyte distribution width (RBC) [Ratio] 12.6 % Normal 11.0-15.0 [facility] Comment on above: Performed By: #### C BC #### [facility] [address] [place] [address] Dr. Juan Zamarripa Hematocrit (Bld) [Volume fraction] 36.1 % Normal 36.0-48.0 [facility] Comment on above: Performed By: #### C BC #### [facility] [address] [place] [address] Dr. Juan Zamarripa Hemoglobin (Bld) [Mass/Vol] 12.5 g/dL Normal 12.0-16.0 [facility] Comment on above: Performed By: #### C BC #### [facility] [address] [place] [address] Dr. Juan Zamarripa IG # 0.02 10e3/ul Normal 0.00-0.03 [facility] Comment on above: Performed By: #### C BC #### [facility] [address] [place] [address] Dr. Juan Zamarripa IG % 0.2 % Normal 0.0-0.5 [facility] Comment on above: Performed By: #### C BC #### [facility] [address] [place] [address] Dr. Juan Zamarripa LYMPH # 4.8 103/ul Critically high 1.2-3.8 [facility] Comment on above: Performed By: #### C BC #### [facility] [address] [place] [address] Dr. Juan Zamarripa Lymphocytes/100 WBC (Bld) 49.6 % Normal 20.5-60.0 [facility] Comment on above: Performed By: #### C BC #### [facility] [address] [place] [address] Dr. Juan Zamarripa MANUAL DIFF REQ NO Normal [facility] Comment on above: Performed By: #### C BC #### [facility] [address] [place] [address] Dr. Juan Zamarripa MCH (RBC) [Entitic mass] 31.3 pg Normal 26.7-34.0 [facility] Comment on above: Performed By: #### C BC #### [facility] [address] [place] [address] Dr. Juan Zamarripa MCHC (RBC) [Mass/Vol] 34.6 g/dL Normal 29.9-35.2 [facility] Comment on above: Performed By: #### C BC #### [facility] [address] [place] [address] Dr. Juan Zamarripa MCV (RBC) [Entitic vol] 90.3 fL Normal 81.0-99.0 [facility] Comment on above: Performed By: #### C BC #### [facility] [address] [place] [address] Dr. Juan Zamarripa MONO # 0.5 103/ul Normal 0.3-0.8 [facility] Comment on above: Performed By: #### C BC #### [facility] [address] [place] [address] Dr. Juan Zamarripa Monocytes/100 WBC (Bld) 4.8 % Normal 1.7-12.0 [facility] Comment on above: Performed By: #### C BC #### [facility] [address] [place] [address] Dr. Juan Zamarripa NEUT # 4.2 103/ul Normal 1.4-6.5 [facility] Comment on above: Performed By: #### C BC #### [facility] [address] [place] [address] Dr. Juan Zamarripa Neutrophils/100 WBC (Bld) 43.2 % Normal 43.0-75.0 [facility] Comment on above: Performed By: #### C BC #### [facility] [address] [place] [address] Dr. Juan Zamarripa Platelet mean volume (Bld) [Entitic vol] 9.5 fL Normal 9.5-13.5 [facility] Comment on above: Performed By: #### C BC #### [facility] [address] [place] [address] Dr. Juan Zamarripa PLT 149 103/ul Critically low 150-[address] [facility] Comment on above: Performed By: #### C BC #### [facility] [address] [place] [address] Dr. Juan Zamarripa RBC 4.00 106/ul Critically low 4.20-5.40 [facility] Comment on above: Performed By: #### C BC #### [facility] [address] [place] [address] Dr. Juan Zamarripa WBC 9.6 103/ul Normal 4.0-11.0 [facility] Comment on above: Performed By: #### C BC #### [facility] [address] [place] [address] Dr. Juan Zamarripa PROF CHEM 8 (BAS METB)on Anion gap [Moles/Vol] 11.4 mmol/L Normal [facility] Comment on above: Performed By: #### L IPA, HSTROPN, TSH, CMP #### [facility] [address] [place] [address] Dr. Juan Zamarripa Calcium [Mass/Vol] 8.7 mg/dL Normal 8.5-10.1 [facility] Comment on above: Performed By: #### L IPA, HSTROPN, TSH, CMP #### [facility] [address] [address] [address] Juan Zamarripa Chloride [Moles/Vol] 102 mmol/L Normal 98-107 [facility] Comment on above: Performed By: #### L IPA, HSTROPN, TSH, CMP #### [facility] [address] [address] [address] Juan Zamarripa CO2 [Moles/Vol] 28.5 mmol/L Normal 21.0-32.0 [facility] Comment on above: Performed By: #### L IPA, HSTROPN, TSH, CMP #### [facility] [address] [address] [address] Juan Zamarripa Creatinine [Mass/Vol] 0.88 mg/dL Normal 0.55-1.02 [facility] Comment on above: Performed By: #### L IPA, HSTROPN, TSH, CMP #### [facility] [address] [address] [address] Juan Zamarripa EGFR-AF LATVIAN >60 Normal >=60 [facility] Comment on above: Performed By: #### L IPA, HSTROPN, TSH, CMP #### [facility] [address] [address] [address] Juan Zamarripa EGFR-NON AF LATVIAN >60 Normal >=60 [facility] Comment on above: Performed By: #### L IPA, HSTROPN, TSH, CMP #### [facility] [address] [address] [address] Juan Zamarripa Glucose [Mass/Vol] 129 mg/dL Critically high 74-106 [facility] Comment on above: Performed By: #### L IPA, HSTROPN, TSH, CMP #### [facility] [address] [address] [address] Juan Zamarripa Potassium [Moles/Vol] 3.9 mmol/L Normal 3.5-5.1 [facility] Comment on above: Performed By: #### L IPA, HSTROPN, TSH, CMP #### [facility] [address] [address] [address] Juan Zamarripa Sodium [Moles/Vol] 138 mmol/L Normal 136-145 [facility] Comment on above: Performed By: #### L IPA, HSTROPN, TSH, CMP #### [facility] [address] [place] [address] Dr. Juan Zamarripa Urea nitrogen [Mass/Vol] 12.0 mg/dL Normal 7.0-18.0 [facility] Comment on above: Performed By: #### L IPA, HSTROPN, TSH, CMP #### [facility] [address] [place] [address] Dr. Juan Zamarripa Urea nitrogen/Creatinine [Mass ratio] 13.6 mg/mg Normal [facility] Comment on above: Performed By: #### L IPA, HSTROPN, TSH, CMP #### [facility] [address] [place] [address] Dr. Juan Zamarripa ACETONE SERUMon 04-12-2022 ACETONE Negative Normal NEGATIVE [facility] Comment on above: Performed By: #### C BC #### [facility] [address] [place] [address] Dr. Juan Zamarripa BLOOD CULTURE ID PANELon A. baumannii Not detected Normal NOT DETECTED [facility] Comment on above: Performed By: #### L IPA, HSTROPN, TSH, CMP #### [facility] [address] [place] [address] Dr. Juan Zamarripa Bacteriodes fragilis Not detected Normal NOT DETECTED [facility] Comment on above: Performed By: #### L IPA, HSTROPN, TSH, CMP #### [facility] [address] [place] [address] Dr. Juan Zamarripa BCID CONTROLS PASSED Normal [facility] Comment on above: Performed By: #### L IPA, HSTROPN, TSH, CMP #### [facility] [address] [place] [address] Dr. Juan Zamarripa BCIDBTHD BLOOD CULTURE BOTTLE INFORMATION Normal [facility] Comment on above: Performed By: #### L IPA, HSTROPN, TSH, CMP #### [facility] [address] [place] [address] Dr. Juan Zamarripa BCIDHD1 ANTIMICROBIAL RESIST ANCE GENES Normal [facility] Comment on above: Performed By: #### L IPA, HSTROPN, TSH, CMP #### [facility] [address] [address] [address] Juan Zamarripa BCIDHD2 SEE BELOW [facility] Comment on above: Result Comment: Note : Antimicrobial resitance can occur via multiple mechanisms. A Not Detected result for the [employer] antomicrobial resistance gene assays does not indicate antimicrobial susceptibility. Subculturing is required for species identification and susceptibility testing of isolates. Performed By: #### L IPA, HSTROPN, TSH, CMP #### [facility] [address] [address] [address] Juan Zamarripa BCIDHD3 Positive Normal [facility] Comment on above: Performed By: #### L IPA, HSTROPN, TSH, CMP #### [facility] [address] [address] [address] Juan Zamarripa BCIDHD4 Negative Normal [facility] Comment on above: Performed By: #### L IPA, HSTROPN, TSH, CMP #### [facility] [address] [address] [address] Juan Zamarripa BCIDHD5 YEAST Normal [facility] Comment on above: Performed By: #### L IPA, HSTROPN, TSH, CMP #### [facility] [address] [address] [address] Juan Zamarripa Bottle Set: Set 1 Normal [facility] Comment on above: Performed By: #### L IPA, HSTROPN, TSH, CMP #### [facility] [address] [address] [address] Juan Zamarripa Bottle: Anaerobic Normal [facility] Comment on above: Performed By: #### L IPA, HSTROPN, TSH, CMP #### [facility] [address] [address] [address] Juan Zamarripa C. neoformans/gattii Not detected Normal NOT DETECTED [facility] Comment on above: Performed By: #### L IPA, HSTROPN, TSH, CMP #### [facility] [address] [address] [address] Juan Zamarripa Mary [place] albicans Not detected Normal NOT DETECTED [facility] Comment on above: Performed By: #### L IPA, HSTROPN, TSH, CMP #### [facility] [address] [address] [address] Juan Zamarripa Mary [place] auris Not detected Normal NOT DETECTED [facility] Comment on above: Performed By: #### L IPA, HSTROPN, TSH, CMP #### [facility] [address] [address] [address] Juan Zamarripa Mary Lou glabrata Not detected Normal NOT DETECTED [facility] Comment on above: Performed By: #### L IPA, HSTROPN, TSH, CMP #### [facility] [address] [address] [address] Juan Zamarripa Mary [place] Krusei Not detected Normal NOT DETECTED [facility] Comment on above: Performed By: #### L IPA, HSTROPN, TSH, CMP #### [facility] [address] [place] [address] Dr. Juan Zamarripa [place] Parapsilosis Not detected Normal NOT DETECTED [facility] Comment on above: Performed By: #### L IPA, HSTROPN, TSH, CMP #### [facility] [address] [place] [address] Dr. Juan Zamarripa Mary [place] Tropicalis Not detected Normal NOT DETECTED [facility] Comment on above: Performed By: #### L IPA, HSTROPN, TSH, CMP #### [facility] [address] [address] [address] Juan Zamarripa CTX-M Resistant Gene Not Applicable Normal NOT DETECTED [facility] Comment on above: Performed By: #### L IPA, HSTROPN, TSH, CMP #### [facility] [address] [address] [address] Juan Zamarripa E. Cloacae complex Not detected Normal NOT DETECTED [facility] Comment on above: Performed By: #### L IPA, HSTROPN, TSH, CMP #### [facility] [address] [address] [address] Juan Zamarripa E. faecalis Not detected Normal NOT DETECTED [facility] Comment on above: Performed By: #### L IPA, HSTROPN, TSH, CMP #### [facility] [address] [place] [address] Dr. Juan Zamarripa E. faecium Not detected Normal NOT DETECTED [facility] Comment on above: Performed By: #### L IPA, HSTROPN, TSH, CMP #### [facility] [address] [place] [address] Dr. Juan Zamarripa Enterobacteriaceae Not detected Normal NOT DETECTED [facility] Comment on above: Performed By: #### L IPA, HSTROPN, TSH, CMP #### [facility] [address] [place] [address] Dr. Juan Zamarripa Escherichia coli Not detected Normal NOT DETECTED [facility] Comment on above: Performed By: #### L IPA, HSTROPN, TSH, CMP #### [facility] [address] [place] [address] Dr. Juan Zamarripa H. influenzae Not detected Normal NOT DETECTED [facility] Comment on above: Performed By: #### L IPA, HSTROPN, TSH, CMP #### [facility] [address] [place] [address] Dr. Juan Zamarripa IMP Resistant Gene Not Applicable Normal NOT DETECTED [facility] Comment on above: Performed By: #### L IPA, HSTROPN, TSH, CMP #### [facility] [address] [place] [address] Dr. Juan Zamarripa K. oxytoca Not detected Normal NOT DETECTED [facility] Comment on above: Performed By: #### L IPA, HSTROPN, TSH, CMP #### [facility] [address] [place] [address] Dr. Juan Zamarripa K. pneumoniae Not detected Normal NOT DETECTED [facility] Comment on above: Performed By: #### L IPA, HSTROPN, TSH, CMP #### [facility] [address] [place] [address] Dr. Juan Zamarripa Klebsiella aerogenes Not detected Normal NOT DETECTED [facility] Comment on above: Performed By: #### L IPA, HSTROPN, TSH, CMP #### [facility] [address] [address] [address] Juan Zamarripa KPC Resistant Gene Not Applicable Normal NOT DETECTED [facility] Comment on above: Performed By: #### L IPA, HSTROPN, TSH, CMP #### [facility] [address] [address] [address] Juan Zamarripa List. monocytogenes Not detected Normal NOT DETECTED [facility] Comment on above: Performed By: #### L IPA, HSTROPN, TSH, CMP #### [facility] [address] [address] [address] Juan Zamarripa Mcr-1 Resistant Gene Not Applicable Normal NOT DETECTED [facility] Comment on above: Performed By: #### L IPA, HSTROPN, TSH, CMP #### [facility] [address] [place] [address] Dr. Juan Zamarripa mecA/C Not Applicable Normal NOT DETECTED [facility] Comment on above: Performed By: #### L IPA, HSTROPN, TSH, CMP #### [facility] [address] [address] [address] Juan Zamarripa mecA/C MREJ Not Applicable Normal NOT DETECTED [facility] Comment on above: Performed By: #### L IPA, HSTROPN, TSH, CMP #### [facility] [address] [address] [address] Juan Zamarripa N. meningitidis Not detected Normal NOT DETECTED [facility] Comment on above: Performed By: #### L IPA, HSTROPN, TSH, CMP #### [facility] [address] [address] [address] Juan Zamarripa NDM Resistant Gene Not Applicable Normal NOT DETECTED [facility] Comment on above: Performed By: #### L IPA, HSTROPN, TSH, CMP #### [facility] [address] [address] [address] Juan Zamarripa Oxa-48-like Not Applicable Normal NOT DETECTED [facility] Comment on above: Performed By: #### L IPA, HSTROPN, TSH, CMP #### [facility] [address] [address] [address] Juan Zamarripa Proteus Not detected Normal NOT DETECTED [facility] Comment on above: Performed By: #### L IPA, HSTROPN, TSH, CMP #### [facility] [address] [address] [address] Juan Zamarripa Pseud. aeruginosa Not detected Normal NOT DETECTED [facility] Comment on above: Performed By: #### L IPA, HSTROPN, TSH, CMP #### [facility] [address] [address] [address] Juan Zamarripa S. maltophilia Not detected Normal NOT DETECTED [facility] Comment on above: Performed By: #### L IPA, HSTROPN, TSH, CMP #### [facility] [address] [place] [address] Dr. Juan Zamarripa Salmonella Not detected Normal NOT DETECTED [facility] Comment on above: Performed By: #### L IPA, HSTROPN, TSH, CMP #### [facility] [address] [place] [address] Dr. Juan Zamarripa Seratia marcescens Not detected Normal NOT DETECTED [facility] Comment on above: Performed By: #### L IPA, HSTROPN, TSH, CMP #### [facility] [address] [place] [address] Dr. Juan Zamarripa Site: Rt Ac Normal [facility] Comment on above: Performed By: #### L IPA, HSTROPN, TSH, CMP #### [facility] [address] [address] [address] Juan Zamarripa Staph. aureus Not detected Normal NOT DETECTED [facility] Comment on above: Performed By: #### L IPA, HSTROPN, TSH, CMP #### [facility] [address] [place] [address] Dr. Juan Zamarripa Staph. epidermidis Not detected Normal NOT DETECTED [facility] Comment on above: Performed By: #### L IPA, HSTROPN, TSH, CMP #### [facility] [address] [address] [address] Juan Zamarripa Staph. lugdunensis Not detected Normal NOT DETECTED [facility] Comment on above: Performed By: #### L IPA, HSTROPN, TSH, CMP #### [facility] [address] [address] [address] Juan Zamarripa Staphylococcus Detected Critically abnormal NOT DETECTED [facility] Comment on above: Performed By: #### L IPA, HSTROPN, TSH, CMP #### [facility] [address] [address] [address] Juan Zamarripa Strep. agalactiae Not detected Normal NOT DETECTED [facility] Comment on above: Performed By: #### L IPA, HSTROPN, TSH, CMP #### [facility] [address] [place] [address] Dr. Juan Zamarripa Strep. pneumoniae Not detected Normal NOT DETECTED [facility] [facility] Comment on above: Performed By: #### L IPA, HSTROPN, TSH, CMP #### [facility] [address] [place] [address] Dr. Juan Zamarripa Strep. pyogenes Not detected Normal NOT DETECTED [facility] Comment on above: Performed By: #### L IPA, HSTROPN, TSH, CMP #### [facility] [address] [place] [address] Dr. Juan Zamarripa Streptococcus Not detected Normal NOT DETECTED [facility] Comment on above: Performed By: #### L IPA, HSTROPN, TSH, CMP #### [facility] [address] [place] [address] Dr. Juan Zamarripa Aleyda/B Resist. Gene Not Applicable Normal NOT DETECTED [facility] Comment on above: Performed By: #### L IPA, HSTROPN, TSH, CMP #### [facility] [address] [place] [address] Dr. Juan Zamarripa VIM Resistant Gene Not Applicable Normal NOT DETECTED [facility] Comment on above: Performed By: #### L IPA, HSTROPN, TSH, CMP #### [facility] [address] [place] [address] Dr. Juan Zamarripa CBC AUTO DIFFon 04-12-2022 BASO # 0.1 103/ul Normal 0.0-0.1 [facility] Comment on above: Performed By: #### L IPA, HSTROPN, TSH, CMP #### [facility] [address] [place] [address] Dr. Juan Zamarripa Basophils/100 WBC (Bld) 0.6 % Normal 0.2-2.0 [facility] Comment on above: Performed By: #### L IPA, HSTROPN, TSH, CMP #### [facility] [address] [place] [address] Dr. Juan Zamarripa EO # 0.1 103/ul Normal 0.0-0.7 [facility] Comment on above: Performed By: #### L IPA, HSTROPN, TSH, CMP #### [facility] [address] [place] [address] Dr. Juan Zamarripa Eosinophils/100 WBC (Bld) 0.9 % Normal 0.9-7.0 [facility] Comment on above: Performed By: #### L IPA, HSTROPN, TSH, CMP #### [facility] [address] [place] [address] Dr. Juan Zamarripa Erythrocyte distribution width (RBC) [Ratio] 12.8 % Normal 11.0-15.0 [facility] Comment on above: Performed By: #### L IPA, HSTROPN, TSH, CMP #### [facility] [address] [place] [address] Dr. Juan Zamarripa Hematocrit (Bld) [Volume fraction] 42.9 % Normal 36.0-48.0 [facility] Comment on above: Performed By: #### L IPA, HSTROPN, TSH, CMP #### [facility] [address] [place] [address] Dr. Juan Zamarripa Hemoglobin (Bld) [Mass/Vol] 15.1 g/dL Normal 12.0-16.0 [facility] Comment on above: Performed By: #### L IPA, HSTROPN, TSH, CMP #### [facility] [address] [place] [address] Dr. Juan Zamarripa IG # 0.04 10e3/ul Critically high 0.00-0.03 [facility] Comment on above: Performed By: #### L IPA, HSTROPN, TSH, CMP #### [facility] [address] [place] [address] Dr. Juan Zamarripa IG % 0.3 % Normal 0.0-0.5 [facility] Comment on above: Performed By: #### L IPA, HSTROPN, TSH, CMP #### [facility] [address] [place] [address] Dr. Juan Zamarripa LYMPH # 5.0 103/ul Critically high 1.2-3.8 [facility] Comment on above: Performed By: #### L IPA, HSTROPN, TSH, CMP #### [facility] [address] [place] [address] Dr. Juan Zamarripa Lymphocytes/100 WBC (Bld) 43.6 % Normal 20.5-60.0 [facility] Comment on above: Performed By: #### L IPA, HSTROPN, TSH, CMP #### [facility] [address] [place] [address] Dr. Juan Zamarripa MANUAL DIFF REQ NO Normal [facility] Comment on above: Performed By: #### L IPA, HSTROPN, TSH, CMP #### [facility] [address] [place] [address] Dr. Juan Zamarripa MCH (RBC) [Entitic mass] 31.3 pg Normal 26.7-34.0 [facility] Comment on above: Performed By: #### L IPA, HSTROPN, TSH, CMP #### [facility] [address] [place] [address] Dr. Juan Zamarripa MCHC (RBC) [Mass/Vol] 35.2 g/dL Normal 29.9-35.2 [facility] Comment on above: Performed By: #### L IPA, HSTROPN, TSH, CMP #### [facility] [address] [place] [address] Dr. Juan Zamarripa MCV (RBC) [Entitic vol] 88.8 fL Normal 81.0-99.0 [facility] Comment on above: Performed By: #### L IPA, HSTROPN, TSH, CMP #### [facility] [address] [place] [address] Dr. Juan Zamarripa MONO # 0.6 103/ul Normal 0.3-0.8 [facility] Comment on above: Performed By: #### L IPA, HSTROPN, TSH, CMP #### [facility] [address] [place] [address] Dr. uJan Zamarripa Monocytes/100 WBC (Bld) 5.2 % Normal 1.7-12.0 [facility] Comment on above: Performed By: #### L IPA, HSTROPN, TSH, CMP #### [facility] [address] [place] [address] Dr. Juan Zamarripa NEUT # 5.7 103/ul Normal 1.4-6.5 [facility] Comment on above: Performed By: #### L IPA, HSTROPN, TSH, CMP #### [facility] [address] [place] [address] Dr. Juan Zamarripa Neutrophils/100 WBC (Bld) 49.4 % Normal 43.0-75.0 [facility] Comment on above: Performed By: #### L IPA, HSTROPN, TSH, CMP #### [facility] [address] [place] [address] Dr. Juan Zamarripa Platelet mean volume (Bld) [Entitic vol] 9.6 fL Normal 9.5-13.5 [facility] Comment on above: Performed By: #### L IPA, HSTROPN, TSH, CMP #### [facility] [address] [place] [address] Dr. Juan Zamarripa PLT 210 103/ul Normal 150-450 [facility] Comment on above: Performed By: #### L IPA, HSTROPN, TSH, CMP #### [facility] [address] [place] [address] Dr. Juan Zamarripa RBC 4.83 106/ul Normal 4.20-5.40 [facility] Comment on above: Performed By: #### L IPA, HSTROPN, TSH, CMP #### [facility] [address] [place], [place] [address] Dr. Juan Zamarripa WBC 11.5 103/ul Critically high 4.0-11.0 [facility] Comment on above: Performed By: #### L IPA, HSTROPN, TSH, CMP #### [facility] [address] [place], [place] [address] ABD/PELV W CONon [...] CARO SIBLEY Date: 2022-04-12 16:53 Normal [facility] CULTURE BLOODon 04-12-2022 Microscopic examination of blood, culture Culture Observations: NO GROWTH AT 5 DAYS. Isolate 1 [id number] Normal [facility] Comment on above: Performed By: #### A 1C #### [facility] [address] [place] [address] Dr. Juan Zamarripa CULTURE URINEon 04-12-2022 CULTURE URINE Culture Observations : MODERATE GROWTH OF MIXED GENITAL ALDA. NO POTENTIAL PATHOGENS SEEN. Normal [facility] Comment on above: Performed By: #### U RCX #### [facility] [address] [place] [address] Dr. Juan Zamarripa Covid-19 PCR ([facility])on SARS-CoV-2 (COVID-19) RNA SUNNY+probe Ql (Unsp spec) Not detected Normal NOT DETECTED [facility] Comment on above: Result Comment: When diagnostic [...] for this test is supported by the [place] of Health and Human Service's declaration that [...] #### L IPA, HSTROPN, TSH, CMP #### [facility] [address] [place] [address] Dr. Juan Zamarripa ER URINE PROFILEon 3 Bilirubin Ql (U) Negative Normal NEGATIVE [facility] Comment on above: Performed By: #### C BC #### [facility] [address] [place] [address] [address] Juan Zamarripa Clarity (U) SL CLOUDY Abnormal CLEAR [facility] Comment on above: Performed By: #### C BC #### [facility] [address] [place] [address] [address] Juan Zamarripa Color (U) LT. YELLOW Normal YELLOW [facility] Comment on above: Performed By: #### C BC #### [facility] [address] [place] [address] Dr. Juan Zamarripa ERUAHD A micrscopic examina tion will be performed if indicated. Normal [facility] Comment on above: Performed By: #### C BC #### [facility] [address] [place] [address] Dr. Juan Zamarrpia Glucose Ql (U) 250 mg/dl Abnormal NEGATIVE The [facility] Comment on above: Performed By: #### C BC #### [facility] [address] [place] [address] Dr. Juan Zamarripa Hemoglobin Ql (U) Negative Normal NEGATIVE [facility] Comment on above: Performed By: #### C BC #### [facility] [address] [place] [address] Dr. Juan Zamarripa Ketones Ql (U) TRACE Abnormal NEGATIVE The [facility] Comment on above: Performed By: #### C BC #### [facility] [address] [place] [address] Dr. Juan Zamarripa LEUKOCYTES SMALL Abnormal NEGATIVE [facility] Comment on above: Performed By: #### C BC #### [facility] [address] [place] [address] Dr. Juan Zamarripa Nitrite Ql (U) Negative Normal NEGATIVE The [facility] Comment on above: Performed By: #### C BC #### [facility] [address] [place] [address] Dr. Juan Zamarripa pH (U) 5.5 [pH] Normal 5-9 [facility] Comment on above: Performed By: #### C BC #### [facility] [address] [place] [address] Dr. Juan Zamarripa SPEC GRAVITY 1.030 Abnormal 1.005-<=1. 025 [facility] Comment on above: Performed By: #### C BC #### [facility] [address] [place] [address] Dr. Juan Zamarripa UA PROTEIN Negative Normal NEGATIVE/ TRACE [facility] Comment on above: Performed By: #### C BC #### [facility] [address] [place] [address] Dr. Juan Zamarripa UR MICRO IND INDICATED Normal [facility] Comment on above: Performed By: #### C BC #### [facility] [address] [place] [address] Dr. Juan Zamarripa Urobilinogen Qn (U) 0.2 {Amee'U}/dL Normal 0.2 - 1. 0 [facility] Comment on above: Performed By: #### C BC #### [facility] [address] [place] [address] Dr. Juan Zamarripa INFLUENZA A AND B AGon 04-12 INFLUANEGH SEE BELOW Normal [facility] Comment on above: Result Comment: Nega tive for Flu A protein angiten. Infection due to Flu A cannot be ruled out. Flu A angiten in the sample may be below the detection limit of the test. Performed By: #### L IPA, HSTROPN, TSH, CMP #### [facility] [address] [place] [address] Dr. Juan Zamarripa INFLUBNEGH SEE BELOW Normal [facility] Comment on above: Result Comment: Nega tive for Flu B protein antigen. Infection due to Flu B cannot be ruled out. Flu B antigen in the sample may be below the detection limit of the test. Performed By: #### L IPA, HSTROPN, TSH, CMP #### [facility] [address] [place] [address] Dr. Juan Zamarripa INFLUENZA A AG Negative Normal NEGATIVE SEE COMMENT [facility] Comment on above: Performed By: #### L IPA, HSTROPN, TSH, CMP #### [facility] [address] [place] [address] Dr. Juan Zamarripa INFLUENZA B AG Negative Normal NEGATIVE SEE COMMENT [facility] Comment on above: Performed By: #### L IPA HSTROPN, TSH, CMP #### [facility] [address] [place] [address] Dr. Juan Zamarripa LACTATE/LACTIC ACIDon 2022 Lactate [Moles/Vol] 1.8 mmol/L Normal 0.4-1.9 [facility] Comment on above: Performed By: #### C BC #### [facility] [address] [place] [address] Dr. Juan Zamarripa Lactate [Moles/Vol] 3.1 mmol/L Critically high 0.4-1.9 [facility] Comment on above: Performed By: #### L IPA, HSTROPN, TSH, CMP #### [facility] [address] [place] [address] Dr. Juan Zamarripa LIPASEon 04-12-2022 Lipase [Catalytic activity/Vol] 183.0 U/L Normal 73.0-393.0 [facility] Comment on above: Performed By: #### A 1C #### [facility] [address] [place] [address] Dr. Juan Zamarripa PH VENOUS BLOODon 04-12-2022 PCO2 VENOUS 42.9 mmHg Normal 40.0-52.0 [facility] Comment on above: Performed By: #### C BC #### [facility] [address] [place] [address] Dr. Juan Zamarripa pH VENOUS 7.383 Normal 7.330-7.43 0 [facility] Comment on above: Performed By: #### C BC #### [facility] [address] [place] [address] Dr. Juan Zamarripa PROF 14(COMP METB)on 023 Albumin [Mass/Vol] 4.3 g/dL Normal 3.4-5.0 [facility] Comment on above: Performed By: #### A 1C #### [facility] [address] [place] [address] Dr. Juan Zamarripa Albumin/Globulin [Mass ratio] 1.0 {ratio} Normal [facility] Comment on above: Performed By: #### A 1C #### [facility] [address] [place] [address] [address] Juan Zamarripa ALP [Catalytic activity/Vol] 96 U/L Normal 46-116 [facility] Comment on above: Performed By: #### A 1C #### [facility] [address] [place] [address] [address] Juan Zamarripa ALT [Catalytic activity/Vol] 80 U/L Critically high 14-59 [facility] Comment on above: Performed By: #### A 1C #### [facility] [address] [place] [address] [address] Juan Zamarripa Anion gap [Moles/Vol] 14.7 mmol/L Normal [facility] Comment on above: Performed By: #### A 1C #### [facility] [address] [place] [address] [address] Juan Zamarripa AST [Catalytic activity/Vol] 45 U/L Critically high 15-37 [facility] Comment on above: Performed By: #### A 1C #### [facility] [address] [place] [address] [address] Juan Zamarripa Bilirubin [Mass/Vol] 0.8 mg/dL Normal 0.2-1.0 [facility] Comment on above: Performed By: #### A 1C #### [facility] [address] [place] [address] [address] Juan Zamarripa Calcium [Mass/Vol] 10.0 mg/dL Normal 8.5-10.1 [facility] Comment on above: Performed By: #### A 1C #### [facility] [address] [place] [address] [address] Juan Zamarripa Chloride [Moles/Vol] 99 mmol/L Normal 98-107 [facility] Comment on above: Performed By: #### A 1C #### [facility] [address] [place] [address] [address] Juan Zamarripa CO2 [Moles/Vol] 26.4 mmol/L Normal 21.0-32.0 [facility] Comment on above: Performed By: #### A 1C #### [facility] [address] [place] [address] [address] Juan Zamarripa Creatinine [Mass/Vol] 0.89 mg/dL Normal 0.55-1.02 [facility] Comment on above: Performed By: #### A 1C #### [facility] [address] [place] [address] [address] Juan Zamarripa EGFR-AF LATVIAN >60 Normal >=60 [facility] Comment on above: Performed By: #### A 1C #### [facility] [address] [place] [address] [address] Juan Zamarripa EGFR-NON AF LATVIAN >60 Normal >=60 [facility] Comment on above: Performed By: #### A 1C #### [facility] [address] [place] [address] [address] Juan Zamarripa Globulin (S) [Mass/Vol] 4.3 g/dL Normal [facility] Comment on above: Performed By: #### A 1C #### [facility] [address] [place] [address] Dr. uJan Zamarripa Glucose [Mass/Vol] 168 mg/dL Critically high 74-106 [facility] Comment on above: Performed By: #### A 1C #### [facility] [address] [place] [address] Dr. Juan Zamarripa Potassium [Moles/Vol] 4.1 mmol/L Normal 3.5-5.1 [facility] Comment on above: Performed By: #### A 1C #### [facility] [address] [place] [address] Dr. Juan Zamarripa Protein [Mass/Vol] 8.6 g/dL Critically high 6.4-8.2 [facility] Comment on above: Performed By: #### A 1C #### [facility] [address] [place] [address] Dr. Juan Zamarripa Sodium [Moles/Vol] 136 mmol/L Normal 136-145 [facility] Comment on above: Performed By: #### A 1C #### [facility] [address] [place] [address] Dr. Juan Zamarripa Urea nitrogen [Mass/Vol] 18.0 mg/dL Normal 7.0-18.0 [facility] Comment on above: Performed By: #### A 1C #### [facility] [address] [place] [address] Dr. Juan Zamarripa Urea nitrogen/Creatinine [Mass ratio] 20.2 mg/mg Normal [facility] Comment on above: Performed By: #### A 1C #### [facility] [address] [place] [address] Dr. Juan Zamarripa TROPONIN, HIGH SENSITIVITYon 04-12-2022 HSTROP 4.9 pg/mL Normal 4.0-51.3 [facility] Comment on above: Result Comment: CUT- OFF POINTS HAVE BEEN ESTABLISHED BASED ON THE FOURTH UNIVERSAL DEFINITIONS OF MYOCARDIAL INFARCTION. THE UPPER REFERENCE LIMIT (URL) OF TROPONIN, DEFINED THE 99TH PERCENTILE OF cTnI DISTRIBUTION IN A REFERENCE POPULATION, HAS BEEN CONFIRMED THE DECISION THRESHOLD FOR MS DIAGNOSIS. Performed By: #### A 1C #### [facility] [address] [place] [address] Dr. Juan Zamarripa TSHon 04-12-2022 TSH 1.593 uIU/mL Normal 0.358-3.74 0 [facility] Comment on above: Performed By: #### C BC #### [facility] [address] [place] [address] Dr. Juan Zamarripa URINE MICROSCOPIC ONLYon BACTERIA SMALL Abnormal NONE SEEN [facility] Comment on above: Performed By: #### C BC #### [facility] [address] [place] [address] Dr. Juan Zamarripa Bacteria identified Cx Nom (U) INDICATED Normal [facility] Comment on above: Performed By: #### C BC #### [facility] [address] [place] [address] Dr. Juan Zamarripa CAST NONE SEEN Normal NONE SEEN [facility] Comment on above: Performed By: #### C BC #### [facility] [address] [place] [address] Dr. Juan Zamarripa Crystals LM Nom (Urine sed) NONE SEEN Normal NONE SEEN [facility] Comment on above: Performed By: #### C BC #### [facility] [address] [place] [address] [address] Juan Zamarripa Epithelial cells LM Ql (Urine sed) FEW Abnormal NONE SEEN /RARE [facility] Comment on above: Performed By: #### C BC #### [facility] [address] [place] [address] [address] Juan Zamarripa MUCOUS NONE SEEN Normal NONE SEEN [facility] Comment on above: Performed By: #### C BC #### [facility] [address] [place] [address] [address] Juan Zamarripa RBC 0-2 Normal 0-2 [facility] Comment on above: Performed By: #### C BC #### [facility] [address] [place] [address] Dr. Juan Zamarripa WBC 2-5 Abnormal NONE SEEN [facility] Comment on above: Performed By: #### C BC #### [facility] [address] [place] [address] Dr. Juan Zamarripa XR CHEST 1 Von [...] JAZMINE DODSON Date: 2022-04-12 15:31 Normal [facility] CBC AUTO DIFFon 11-26-2021 BASO # 0.1 103/ul Normal 0.0-0.1 [facility] Comment on above: Performed By: #### L IPA, HSTROPN, TSH, CMP #### [facility] [address] [place] [address] Dr. Juan Zamarripa Basophils/100 WBC (Bld) 0.5 % Normal 0.2-2.0 [facility] Comment on above: Performed By: #### L IPA, HSTROPN, TSH, CMP #### [facility] [address] [place] [address] Dr. Juan Zamarripa EO # 0.1 103/ul Normal 0.0-0.7 [facility] Comment on above: Performed By: #### L IPA, HSTROPN, TSH, CMP #### [facility] [address] [place] [address] Dr. Juan Zamarripa Eosinophils/100 WBC (Bld) 1.1 % Normal 0.9-7.0 [facility] Comment on above: Performed By: #### L IPA, HSTROPN, TSH, CMP #### [facility] [address] [place] [address] Dr. Juan Zamarripa Erythrocyte distribution width (RBC) [Ratio] 12.5 % Normal 11.0-15.0 [facility] Comment on above: Performed By: #### L IPA, HSTROPN, TSH, CMP #### [facility] [address] [place] [address] Dr. Juan Zamarripa Hematocrit (Bld) [Volume fraction] 39.6 % Normal 36.0-48.0 [facility] Comment on above: Performed By: #### L IPA, HSTROPN, TSH, CMP #### [facility] [address] [place] [address] Dr. Juan Zamarripa Hemoglobin (Bld) [Mass/Vol] 13.7 g/dL Normal 12.0-16.0 [facility] Comment on above: Performed By: #### L IPA, HSTROPN, TSH, CMP #### [facility] [address] [place] [address] Dr. Juan Zamarripa IG # 0.04 10e3/ul Critically high 0.00-0.03 [facility] Comment on above: Performed By: #### L IPA, HSTROPN, TSH, CMP #### [facility] [address] [place] [address] Dr. Juan Zamarripa IG % 0.4 % Normal 0.0-0.5 [facility] Comment on above: Performed By: #### L IPA, HSTROPN, TSH, CMP #### [facility] [address] [place] [address] Dr. Juan Zamarripa LYMPH # 4.2 103/ul Critically high 1.2-3.8 [facility] Comment on above: Performed By: #### L IPA, HSTROPN, TSH, CMP #### [facility] [address] [place] [address] Dr. Juan Zamarripa Lymphocytes/100 WBC (Bld) 38.8 % Normal 20.5-60.0 [facility] Comment on above: Performed By: #### L IPA, HSTROPN, TSH, CMP #### [facility] [address] [place] [address] Dr. Juan Zamarripa MANUAL DIFF REQ NO Normal [facility] Comment on above: Performed By: #### L IPA, HSTROPN, TSH, CMP #### [facility] [address] [place] [address] Dr. Juan Zamarripa MCH (RBC) [Entitic mass] 32.2 pg Normal 26.7-34.0 [facility] Comment on above: Performed By: #### L IPA, HSTROPN, TSH, CMP #### [facility] [address] [place] [address] Dr. Juan Zamarripa MCHC (RBC) [Mass/Vol] 34.6 g/dL Normal 29.9-35.2 [facility] Comment on above: Performed By: #### L IPA, HSTROPN, TSH, CMP #### [facility] [address] [place] [address] Dr. Juan Zamarripa MCV (RBC) [Entitic vol] 93.0 fL Normal 81.0-99.0 [facility] Comment on above: Performed By: #### L IPA, HSTROPN, TSH, CMP #### [facility] [address] [place] [address] Dr. Juan Zamarripa MONO # 0.4 103/ul Normal 0.3-0.8 [facility] Comment on above: Performed By: #### L IPA, HSTROPN, TSH, CMP #### [facility] [address] [place] [address] [address] Juan Zamarripa Monocytes/100 WBC (Bld) 3.9 % Normal 1.7-12.0 [facility] Comment on above: Performed By: #### L IPA, HSTROPN, TSH, CMP #### [facility] [address] [place] [address] Dr. Juan Zamarripa NEUT # 6.1 103/ul Normal 1.4-6.5 [facility] Comment on above: Performed By: #### L IPA, HSTROPN, TSH, CMP #### [facility] [address] [place] [address] Dr. Juan Zamarripa Neutrophils/100 WBC (Bld) 55.3 % Normal 43.0-75.0 [facility] Comment on above: Performed By: #### L IPA, HSTROPN, TSH, CMP #### [facility] [address] [place] [address] Dr. Juan Zamarripa Platelet mean volume (Bld) [Entitic vol] 9.6 fL Normal 9.5-13.5 [facility] Comment on above: Performed By: #### L IPA, HSTROPN, TSH, CMP #### [facility] [address] [place] [address] Dr. Juan Zamarripa PLT 187 103/ul Normal 150-450 [facility] Comment on above: Performed By: #### L IPA, HSTROPN, TSH, CMP #### [facility] [address] [place] [address] Dr. Juan Zamarripa RBC 4.26 106/ul Normal 4.20-5.40 [facility] Comment on above: Performed By: #### L IPA, HSTROPN, TSH, CMP #### [facility] [address] [place] [address] Dr. Juan Zamarripa WBC 10.9 103/ul Normal 4.0-11.0 [facility] Comment on above: Performed By: #### L IPA, HSTROPN, TSH, CMP #### [facility] [address] [place] [address] Dr. Juan [facility]amarripa [facility] SARS-CoV-2 (COVID-19) RNA SUNNY+probe Ql (Unsp spec) Not detected Normal NOT DETECTED [facility] Comment on above: Result Comment: When diagnostic [...] for this test is supported by the [place] of Health and Human Service's declaration that [...] #### L IPA, HSTROPN, TSH, CMP #### [facility] [address] [place] [address] Dr. Juan Zamarripa LIPASEon 11-26-2021 Lipase [Catalytic activity/Vol] 140.0 U/L Normal 73.0-393.0 [facility] Comment on above: Performed By: #### L IPA, HSTROPN, TSH, CMP #### [facility] [address] [place] [address] Dr. Juan Zamarripa PROF 14(COMP METB)on 022 Albumin [Mass/Vol] 4.2 g/dL Normal 3.4-5.0 [facility] Comment on above: Performed By: #### L IPA, HSTROPN, TSH, CMP #### [facility] [address] [place] [address] Dr. Juan Zamarripa Albumin/Globulin [Mass ratio] 1.1 {ratio} Normal [facility] Comment on above: Performed By: #### L IPA, HSTROPN, TSH, CMP #### [facility] [address] [place] [address] Dr. Juan Zamarripa ALP [Catalytic activity/Vol] 93 U/L Normal 46-116 [facility] Comment on above: Performed By: #### L IPA, HSTROPN, TSH, CMP #### [facility] [address] [place] [address] Dr. Juan Zamarripa ALT [Catalytic activity/Vol] 74 U/L Critically high 14-59 [facility] Comment on above: Performed By: #### L IPA, HSTROPN, TSH, CMP #### [facility] [address] [place] [address] Dr. Juan Zamarripa Anion gap [Moles/Vol] 15.6 mmol/L Normal [facility] Comment on above: Performed By: #### L IPA, HSTROPN, TSH, CMP #### [facility] [address] [place] [address] Dr. Juan Zamarripa AST [Catalytic activity/Vol] 46 U/L Critically high 15-37 [facility] Comment on above: Performed By: #### L IPA, HSTROPN, TSH, CMP #### [facility] [address] [place] [address] Dr. Juan Zamarripa Bilirubin [Mass/Vol] 0.6 mg/dL Normal 0.2-1.0 [facility] Comment on above: Performed By: #### L IPA, HSTROPN, TSH, CMP #### [facility] [address] [place] [address] Dr. Juan Zamarripa Calcium [Mass/Vol] 9.7 mg/dL Normal 8.5-10.1 [facility] Comment on above: Performed By: #### L IPA, HSTROPN, TSH, CMP #### [facility] [address] [place] [address] Dr. Juan Zamarripa Chloride [Moles/Vol] 100 mmol/L Normal 98-107 [facility] Comment on above: Performed By: #### L IPA, HSTROPN, TSH, CMP #### [facility] [address] [place] [address] Dr. Juan Zamarripa CO2 [Moles/Vol] 25.6 mmol/L Normal 21.0-32.0 [facility] Comment on above: Performed By: #### L IPA, HSTROPN, TSH, CMP #### [facility] [address] [place] [address] Dr. Juan Zamarripa Creatinine [Mass/Vol] 0.89 mg/dL Normal 0.55-1.02 [facility] Comment on above: Performed By: #### L IPA, HSTROPN, TSH, CMP #### [facility] [address] [place] [address] Dr. Juan Zamarripa EGFR-AF LATVIAN >60 Normal >=60 [facility] Comment on above: Performed By: #### L IPA, HSTROPN, TSH, CMP #### [facility] [address] [place] [address] Dr. Juan Zamarripa EGFR-NON AF LATVIAN >60 Normal >=60 [facility] Comment on above: Performed By: #### L IPA, HSTROPN, TSH, CMP #### [facility] [address] [place] [address] Dr. Juan Zamarripa Globulin (S) [Mass/Vol] 3.7 g/dL Normal [facility] Comment on above: Performed By: #### L IPA, HSTROPN, TSH, CMP #### [facility] [address] [address] [address] Juan Zamarripa Glucose [Mass/Vol] 183 mg/dL Critically high 74-106 [facility] Comment on above: Performed By: #### L IPA, HSTROPN, TSH, CMP #### [facility] [address] [place] [address] Dr. Juan Zamarripa Potassium [Moles/Vol] 4.2 mmol/L Normal 3.5-5.1 [facility] Comment on above: Performed By: #### L IPA, HSTROPN, TSH, CMP #### [facility] [address] [place] [address] Dr. Juan Zamarripa Protein [Mass/Vol] 7.9 g/dL Normal 6.4-8.2 [facility] Comment on above: Performed By: #### L IPA, HSTROPN, TSH, CMP #### [facility] [address] [place] [address] Dr. Juan Zamarripa Sodium [Moles/Vol] 137 mmol/L Normal 136-145 [facility] Comment on above: Performed By: #### L IPA, HSTROPN, TSH, CMP #### [facility] [address] [place] [address] Dr. Juan Zamarripa Urea nitrogen [Mass/Vol] 13.0 mg/dL Normal 7.0-18.0 [facility] Comment on above: Performed By: #### L IPA, HSTROPN, TSH, CMP #### [facility] [address] [place] [address] Dr. Juan Zamarripa Urea nitrogen/Creatinine [Mass ratio] 14.6 mg/mg Normal [facility] Comment on above: Performed By: #### L IPA, HSTROPN, TSH, CMP #### [facility] [address] [place] [address] Dr. Juan Zamarripa TROPONIN, HIGH SENSITIVITYon 11-26-2021 HSTROP 4.6 pg/mL Normal 4.0-51.3 [facility] Comment on above: Result Comment: CUT- OFF POINTS HAVE BEEN ESTABLISHED BASED ON THE FOURTH UNIVERSAL DEFINITIONS OF MYOCARDIAL INFARCTION. THE UPPER REFERENCE LIMIT (URL) OF TROPONIN, DEFINED THE 99TH PERCENTILE OF cTnI DISTRIBUTION IN A REFERENCE POPULATION, HAS BEEN CONFIRMED THE DECISION THRESHOLD FOR MS DIAGNOSIS. Performed By: #### L IPA, HSTROPN, TSH, CMP #### [facility] [address] [place] [address] Dr. Juan Zamarripa TSHon 11-26-2021 TSH 2.343 uIU/mL Normal 0.358-3.74 0 [facility] Comment on above: Performed By: #### L IPA, HSTROPN, TSH, CMP #### [facility] [address] [place] [address] Dr. Juan Zamarripa XR CHEST 1 Von [...] VERA ARANA Date: 2021-11-26 21:03 Normal [facility] Covid-19 PCR (CVDTBH)on SARS-CoV-2 (COVID-19) RNA SUNNY+probe Ql (Unsp spec) Not detected Normal NOT DETECTED [facility] Comment on above: Result Comment: This test is not yet approved or cleared by the [place] FDA. When there are no FDA-approved or cleared tests available, and other criteria are met, FDA can make tests available under an emergency access mechanism called an Emergency Use Authorization (EUA). The EUA for this test is supported by the [employer] of Health and Human Service's (HHS's) declaration [...] SARS-CoV-2. Performed By: #### C BC #### [facility] [address] [address] [address] Juan Zamarripa CBC AUTO DIFFon 08-17-2021 BASO # 0.1 103/ul Normal 0.0-0.1 [facility] Comment on above: Performed By: #### L IPA, HSTROPN, TSH, CMP #### [facility] [address] [address] [address] Juan Zamarripa Basophils/100 WBC (Bld) 0.7 % Normal 0.2-2.0 [facility] Comment on above: Performed By: #### L IPA, HSTROPN, TSH, CMP #### [facility] [address] [place] [address] Dr. Juan Zamarripa EO # 0.1 103/ul Normal 0.0-0.7 [facility] Comment on above: Performed By: #### L IPA, HSTROPN, TSH, CMP #### [facility] [address] [place] [address] Dr. Juan Zamarripa Eosinophils/100 WBC (Bld) 1.6 % Normal 0.9-7.0 [facility] Comment on above: Performed By: #### L IPA, HSTROPN, TSH, CMP #### [facility] [address] [place] [address] Dr. Juan Zamarripa Erythrocyte distribution width (RBC) [Ratio] 12.6 % Normal 11.0-15.0 [facility] Comment on above: Performed By: #### L IPA, HSTROPN, TSH, CMP #### [facility] [address] [place] [address] Dr. Juan Zamarripa Hematocrit (Bld) [Volume fraction] 39.8 % Normal 36.0-48.0 [facility] Comment on above: Performed By: #### L IPA, HSTROPN, TSH, CMP #### [facility] [address] [place] [address] Dr. Juan Zamarripa Hemoglobin (Bld) [Mass/Vol] 13.7 g/dL Normal 12.0-16.0 [facility] Comment on above: Performed By: #### L IPA, HSTROPN, TSH, CMP #### [facility] [address] [place] [address] Dr. Juan Zamarripa IG # 0.02 10e3/ul Normal 0.00-0.03 [facility] Comment on above: Performed By: #### L IPA, HSTROPN, TSH, CMP #### [facility] [address] [place] [address] Dr. Juan Zamarripa IG % 0.3 % Normal 0.0-0.5 [facility] Comment on above: Performed By: #### L IPA, HSTROPN, TSH, CMP #### [facility] [address] [place] [address] Dr. Juan Zamarripa LYMPH # 3.1 103/ul Normal 1.2-3.8 [facility] Comment on above: Performed By: #### L IPA, HSTROPN, TSH, CMP #### [facility] [address] [place] [address] Dr. Juan Zamarripa Lymphocytes/100 WBC (Bld) 40.5 % Normal 20.5-60.0 [facility] Comment on above: Performed By: #### L IPA, HSTROPN, TSH, CMP #### [facility] [address] [place] [address] Dr. Juan Zamarripa MANUAL DIFF REQ NO Normal [facility] Comment on above: Performed By: #### L IPA, HSTROPN, TSH, CMP #### [facility] [address] [place] [address] Dr. Juan Zamarripa MCH (RBC) [Entitic mass] 32.3 pg Normal 26.7-34.0 [facility] Comment on above: Performed By: #### L IPA, HSTROPN, TSH, CMP #### [facility] [address] [place] [address] Dr. Juan Zamarripa MCHC (RBC) [Mass/Vol] 34.4 g/dL Normal 29.9-35.2 [facility] Comment on above: Performed By: #### L IPA, HSTROPN, TSH, CMP #### [facility] [address] [place] [address] Dr. Juan Zamarripa MCV (RBC) [Entitic vol] 93.9 fL Normal 81.0-99.0 [facility] Comment on above: Performed By: #### L IPA, HSTROPN, TSH, CMP #### [facility] [address] [place] [address] Dr. Juan Zamarripa MONO # 0.3 103/ul Normal 0.3-0.8 [facility] Comment on above: Performed By: #### L IPA, HSTROPN, TSH, CMP #### [facility] [address] [place] [address] Dr. Juan Zamarripa Monocytes/100 WBC (Bld) 4.2 % Normal 1.7-12.0 [facility] Comment on above: Performed By: #### L IPA, HSTROPN, TSH, CMP #### [facility] [address] [place] [address] Dr. Juan Zamarripa NEUT # 4.0 103/ul Normal 1.4-6.5 [facility] Comment on above: Performed By: #### L IPA, HSTROPN, TSH, CMP #### [facility] [address] [place] [address] Dr. Juan Zamarripa Neutrophils/100 WBC (Bld) 52.7 % Normal 43.0-75.0 [facility] Comment on above: Performed By: #### L IPA, HSTROPN, TSH, CMP #### [facility] [address] [place] [address] Dr. Juan Zamarripa Platelet mean volume (Bld) [Entitic vol] 9.7 fL Normal 9.5-13.5 [facility] Comment on above: Performed By: #### L IPA, HSTROPN, TSH, CMP #### [facility] [address] [place] [address] Dr. Juan Zamarripa PLT 164 103/ul Normal 150-450 [facility] Comment on above: Performed By: #### L IPA, HSTROPN, TSH, CMP #### [facility] [address] [place] [address] Dr. Juan Zamarripa RBC 4.24 106/ul Normal 4.20-5.40 [facility] Comment on above: Performed By: #### L IPA, HSTROPN, TSH, CMP #### [facility] [address] [place] [address] Dr. Juan Zamarripa WBC 7.6 103/ul Normal 4.0-11.0 [facility] Comment on above: Performed By: #### L IPA, HSTROPN, TSH, CMP #### [facility] [address] [address] [address] Juan Zamarripa FREE T4on 08-17-2021 Free T4 [Mass/Vol] 1.00 ng/dL Normal 0.76-1.46 [facility] Comment on above: Performed By: #### C BC #### [facility] [address] [address] [address] Juan Zamarripa GLYCOHEMOGLOBIN A1Con 2021 ADA RECOMMENDATION SEE BELOW Normal [facility] Comment on above: Result Comment: ADA RECOMMENDED LIMIT 4.0 - 6.0 ADA THERAPEUTIC TARGET < 7.0 ACTION SUGGESTED > 7.0 Performed By: #### A 1C #### [facility] [address] [place] [address] Dr. Juan Zamarripa Glucose [Mass/Vol] 140 mg/dL Normal [facility] Comment on above: Performed By: #### A 1C #### [facility] [address] [place] [address] Dr. Juan Zamarripa HbA1c (Bld) [Mass fraction] 6.5 % Critically high 4.5-6.2 [facility] Comment on above: Performed By: #### A 1C #### [facility] [address] [place] [address] Dr. Juan Zamarripa LIPID PROFILEon 08-17-2021 CHOL-HDL RATIO NORM SEE BELOW Normal [facility] Comment on above: Result Comment: 3.3 - 4.4 LOW RISK 4.4 - 7.1 AVERAGE RISK 7.1 - 11.0 MODERATE RISK >11.0 HIGH RISK Performed By: #### L IPA, HSTROPN, TSH, CMP #### [facility] [address] [place] [address] Dr. Juan Zamarripa Cholesterol [Mass/Vol] 115 mg/dL Normal <=200 [facility] Comment on above: Performed By: #### L IPA, HSTROPN, TSH, CMP #### [facility] [address] [place] [address] Dr. Juan Zamarripa Cholesterol in HDL [Mass/Vol] 40 mg/dL Normal 40-60 [facility] Comment on above: Performed By: #### L IPA, HSTROPN, TSH, CMP #### [facility] [address] [address] [address] Juan Zamarripa Cholesterol in LDL [Mass/Vol] 53.6 mg/dL Normal [facility] Comment on above: Performed By: #### L IPA, HSTROPN, TSH, CMP #### [facility] [address] [address] [address] Juan Zamarripa Cholesterol.total/Amanda sterol in HDL [Mass ratio] 2.9 {ratio} Normal [facility] Comment on above: Performed By: #### L IPA, HSTROPN, TSH, CMP #### [facility] [address] [address] [address] Juan Zamarripa HDL NORMAL > or = 60 mg/dl - LO W CARDIOVASCULAR RISK <40 mg/dl - HIGH CARDIOVASCULAR RISK Normal [facility] Comment on above: Performed By: #### L IPA, HSTROPN, TSH, CMP #### [facility] [address] [address] [address] Juan Zamarripa LDL CALC NORMAL SEE BELOW Normal [facility] Comment on above: Result Comment: <100 mg/dl OPTIMAL 100 - 129 mg/dl NEAR OR ABOVE OPTIMAL 130 - 159 mg/dl BORDERLINE HIGH 160 - 189 mg/dl HIGH >190 mg/dl VERY HIGH Performed By: #### L IPA, HSTROPN, TSH, CMP #### [facility] [address] [address] [address] Juan Zamarripa Triglyceride [Mass/Vol] 107 mg/dL Normal <=150 [facility] Comment on above: Performed By: #### L IPA, HSTROPN, TSH, CMP #### [facility] [address] [address] [address] Juan Zamarripa VLDL CALC 21.4 mg/dL Normal [facility] Comment on above: Performed By: #### L IPA, HSTROPN, TSH, CMP #### [facility] [address] [place] [address] Dr. Juan Zamarripa PROF 14(COMP METB)on 022 Albumin [Mass/Vol] 4.1 g/dL Normal 3.4-5.0 [facility] Comment on above: Performed By: #### L IPA, HSTROPN, TSH, CMP #### [facility] [address] [place] [address] Dr. Juan Zamarripa Albumin/Globulin [Mass ratio] 1.1 {ratio} Normal [facility] Comment on above: Performed By: #### L IPA, HSTROPN, TSH, CMP #### [facility] [address] [place] [address] Dr. Juan Zamarripa ALP [Catalytic activity/Vol] 94 U/L Normal 46-116 [facility] Comment on above: Performed By: #### L IPA, HSTROPN, TSH, CMP #### [facility] [address] [place] [address] Dr. Juan Zamarripa ALT [Catalytic activity/Vol] 61 U/L Critically high 14-59 [facility] Comment on above: Performed By: #### L IPA, HSTROPN, TSH, CMP #### [facility] [address] [place] [address] Dr. Juan Zamarripa Anion gap [Moles/Vol] 16.5 mmol/L Normal [facility] Comment on above: Performed By: #### L IPA, HSTROPN, TSH, CMP #### [facility] [address] [place] [address] Dr. Juan Zamarripa AST [Catalytic activity/Vol] 24 U/L Normal 15-37 [facility] Comment on above: Performed By: #### L IPA, HSTROPN, TSH, CMP #### [facility] [address] [place] [address] Dr. Juan Zamarripa Bilirubin [Mass/Vol] 0.7 mg/dL Normal 0.2-1.0 [facility] Comment on above: Performed By: #### L IPA, HSTROPN, TSH, CMP #### [facility] [address] [place] [address] Dr. Juan Zamarripa Calcium [Mass/Vol] 9.1 mg/dL Normal 8.5-10.1 [facility] Comment on above: Performed By: #### L IPA, HSTROPN, TSH, CMP #### [facility] [address] [address] [address] Juan Zamarripa Chloride [Moles/Vol] 103 mmol/L Normal 98-107 [facility] Comment on above: Performed By: #### L IPA, HSTROPN, TSH, CMP #### [facility] [address] [address] [address] Juan Zamarripa CO2 [Moles/Vol] 25.4 mmol/L Normal 21.0-32.0 [facility] Comment on above: Performed By: #### L IPA, HSTROPN, TSH, CMP #### [facility] [address] [address] [address] Juan Zamarripa Creatinine [Mass/Vol] 0.87 mg/dL Normal 0.55-1.02 [facility] Comment on above: Performed By: #### L IPA, HSTROPN, TSH, CMP #### [facility] [address] [address] [address] Juan Zamarripa EGFR-AF LATVIAN >60 Normal >=60 [facility] Comment on above: Performed By: #### L IPA, HSTROPN, TSH, CMP #### [facility] [address] [address] [address] Juan Zamarripa EGFR-NON AF LATVIAN >60 Normal >=60 [facility] Comment on above: Performed By: #### L IPA, HSTROPN, TSH, CMP #### [facility] [address] [address] [address] Juan Zamarripa Globulin (S) [Mass/Vol] 3.9 g/dL Normal [facility] Comment on above: Performed By: #### L IPA, HSTROPN, TSH, CMP #### [facility] [address] [address] [address] Juan Zamarripa Glucose [Mass/Vol] 157 mg/dL Critically high 74-106 [facility] Comment on above: Performed By: #### L IPA, HSTROPN, TSH, CMP #### [facility] [address] [place] [address] Dr. Juan Zamarripa Potassium [Moles/Vol] 4.4 mmol/L Normal 3.5-5.1 [facility] Comment on above: Performed By: #### L IPA, HSTROPN, TSH, CMP #### [facility] [address] [address] [address] Juan Zamarripa Protein [Mass/Vol] 8.0 g/dL Normal 6.4-8.2 [facility] Comment on above: Performed By: #### L IPA, HSTROPN, TSH, CMP #### [facility] [address] [place] [address] Dr. Juan Zamarripa Sodium [Moles/Vol] 141 mmol/L Normal 136-145 [facility] Comment on above: Performed By: #### L IPA, HSTROPN, TSH, CMP #### [facility] [address] [address] [address] Juan Zamarripa Urea nitrogen [Mass/Vol] 21.0 mg/dL Critically high 7.0-18.0 [facility] Comment on above: Performed By: #### L IPA, HSTROPN, TSH, CMP #### [facility] [address] [place] [address] Dr. Juan Zamarripa Urea nitrogen/Creatinine [Mass ratio] 24.1 mg/mg Normal [facility] Comment on above: Performed By: #### L IPA, HSTROPN, TSH, CMP #### [facility] [address] [place] [address] Dr. Juan Zamarripa TSHon 08-17-2021 TSH 1.503 uIU/mL Normal 0.358-3.74 0 [facility] Comment on above: Performed By: #### L IPA, HSTROPN, TSH, CMP #### [facility] [address] [place] [address] Dr. Juan Zamarripa TSH RANGE SEE BELOW Normal [facility] Comment on above: Result Comment: <0.3 4 UIU/ml HYPERTHYROID 0.34-5.60 UIU/ml EUTHYROID >5.60 UIU/ml HYPOTHYROID Performed By: #### L IPA, HSTROPN, TSH, CMP #### [facility] [address] [address] [address] Juan Weinstein 08-11-2021 CNPN Telephone (NCCAP) -------- IVELISSE GEE ([id number]) 1950 F Date Time Provider Department 08/11/21 MEHRDAD AGUILAR NCCJERMAINE During your visit today, we recorded the following information about you: Marta Cuellar [facility] 08/11/2021 12:14 PM Signed Called patient [...] Status:Closed by MARTA GARCES on 08/11/21 Normal [facility] [id number]-[id number] QUANTITA TIONon 10-13-2020 [id number] (AAT) PHENOTYPE SEE NOTE Normal [facility] Comment on above: Order Comment: FASTI NG:YES FASTING: YES Result Comment: THIS PATIENT'S TIGQH-[id number] PHENOTYPE IS PI*MM. 90% of normal individuals have the MM phenotype, with normal quantitative AAT levels. Many phenotypic patterns have been described, including deficiency states with F, S, Z, or other alleles. As a general estimation, compared to M allele of 100% of normal U-6-Iwlpsajtpqp protein, the S allele produces approximately 60% and the Z allele 20%. For example, an MS phenotype would have about 80% of normal Q-9-Wjigqsiyqfq protein level, a 50% contribution from the M allele and 30% from the S allele. A ZZ phenotype would have about 20% of normal levels, a 10% contribution from each Z gene. The F allele has normal N-6-Lvnkcmgjpdu levels, but the kinetics of elastase inhibition [...] phenotype. Performed By: #### 2 63, 457, 21074, 4856, 508, 498, 326, 8472, 496, 249, 14889, 259 #### [facility] [address], [address] [place] [id number] Operations Trainer: Kush Hines MD #### [id number] #### [facility], [address] [place] [address] Operations Trainer: Susan Sheikh MD,PhD,JAY #### [id number], [id number] #### [facility] [address] [facility] [place], [place] Operations Trainer: Parrish Gloria M.D.,PhD [id number] QN 170 mg/dL Normal 83-199 [facility] Comment on above: Order Comment: FASTI NG:YES FASTING: YES Performed By: #### 2 63, 457, 49074, 7573, 508, 498, 326, 8472, 496, 249, 31811, 259 #### [facility] [address], [address] [place] [id number] Operations Trainer: Kush Hines MD #### [id number] #### [facility], [address] [place] [address] Operations Trainer: Susan Sheikh MD,PhD,JAY #### [id number], 90560 #### [facility] [address] [facility] [place], [place] Operations Trainer: Parrish Gloria M.D.,PhD TL SCREEN, IFA, W/REFL [...] AC-0: Negative International Consensus on TL Patterns (https://doi.org/10.1515/ihru-1187-9778) For additional information, please refer to http://education.[employer]/faq/EVF398 (This link is being provided for informational/ educational purposes only.) Performed By: #### 2 63, 457, 71410, 7573, 508, 498, 326, 8472, 496, 249, 66572, 259 #### [facility] [address], [address] [place] [address] Operations Trainer: Kush Hines MD #### [id number] #### [facility], [address] [phone] Operations Trainer: Susan Sheikh MD,PhD,JAY #### 19576, 36098 #### [facility]/[address] [place] [id number] [facility] [place], [place] Operations Trainer: Parrish Gloria M.D.,PhD CELIAC DISEASE COMPREHENSIVE PANELon 10-13-2020 IMMUNOGLOBULIN A 185 mg/dL Normal 70-320 [facility] Comment on above: Performed By: #### 2 63, 457, 11729, 7573, 508, 498, 326, 8472, 496, 249, 16591, 259 #### [facility] [address], [address] [place] [address] Operations Trainer: Kush Hines MD #### [id number] #### [facility], [address] [phone] Operations Trainer: Susan Sheikh MD,PhD,JAY #### [id number], [id number] #### [facility]/[address] [id number] [facility] [place] Operations Trainer: Parrish Gloria M.D.,PhD INTERPRETATION see note Normal [...] DQ8. Performed By: #### 2 63, 457, 42576, 7573, 508, 498, 326, 8472, 496, 249, 91023, 259 #### [facility] [address], [address] [place] [address] Operations Trainer: Kush Hines MD #### [id number] #### [facility], [address] [place] [address] Operations Trainer: Susan Sheikh MD,PhD,JAY #### [id number], 65969 #### [facility]/[id number] [facility] [place], [place] Operations Trainer: Parrish Gloria M.D.,PhD TISSUE TRANSGLUTAMINASE AB, IGA 2 U/mL Normal <4 [facility] Comment on above: Result Comment: Value Interpretation <4 U/mL: No Antibody Detected >or=4 U/mL: Antibody Detected Performed By: #### 2 63, 457, 38358, 7573, 508, 498, 326, 8472, 496, 249, 67500, 259 #### [facility] [address], [address] [place] [address] Operations Trainer: Kush Hines MD #### [id number] #### [facility], [address] [place] [address] Operations Trainer: Susan Sheikh MD,PhD,JAY #### 54407, 78498 #### [facility] [address] [facility] [place], [place] Operations Trainer: Parrish Gloria M.D.,PhD CERULOPLASMINon 10-13-2020 CERULOPLASMIN 31 mg/dL Normal 18-53 [facility] Comment on above: Performed By: #### 2 63, 457, 33003, 7573, 508, 498, 326, 8472, 496, 249, 04710, 259 #### [facility] [address], [address] [place] [address] Operations Trainer: Kush Hines MD #### [id number] #### [facility], [address] [place] [phone] Operations Trainer: Susan Sheikh MD,PhD,JAY #### [id number], 22626 #### [facility] [address] [facility] [address] [place] Operations Trainer: Parrish Gloria M.D.,PhD FERRITINon 10-13-2020 Ferritin [Mass/Vol] 70 ng/mL Normal 16-288 [facility] Comment on above: Performed By: #### 2 63, 457, 90026, 7573, 508, 498, 326, 8472, 496, 249, 04468, 259 #### [facility] [address], [address] [place] [address] Operations Trainer: Kush Hines MD #### [id number] #### [facility], [address] [place] [phone] Operations Trainer: Susan Sheikh MD,PhD,JAY #### [id number], 54526 #### [facility] [address] [facility] [place], [place] Operations Trainer: Parrish Gloria M.D.,PhD HEMOGLOBIN A1con 10-13-2020 HEMOGLOBIN [...] children. Performed By: #### 2 63, 457, 85034, 7573, 508, 498, 326, 8472, 496, 249, 51594, 259 #### [facility] [address], [address] [place] [address] Operations Trainer: Kush Hines MD #### [id number] #### [facility], [address] [place] [address] Operations Trainer: Susan Sheikh MD,PhD,JAY #### 12443, 47635 #### [facility] [address] [facility] [place], [place] Operations Trainer: Parrish Gloria M.D.,PhD HEPATITIS A AB, TOTALon 07-0 HEPATITIS A AB, TOTAL Reactive Abnormal NON-RE ACTI VE [facility] Comment on above: Result Comment: For additional information, please refer to http://education.FanTrail.[employer]/faq/QST798 (This link is being provided for informational/ educational purposes only.) Performed By: #### 2 63, 457, 82623, 7573, 508, 498, 326, 8472, 496, 249, 87830, 259 #### [facility] [address], [address] [place] [address] Operations Trainer: Kush Hines MD #### [id number] #### [facility], [address] [place] [address] Operations Trainer: Susan Sheikh MD,PhD,JAY #### 54506, 74148 #### [facility] [address] [facility] [place], [place] Operations Trainer: Parrish Gloria M.D.,PhD HEPATITIS B CORE AB TOTAL W/ REFL IGMon 10-13-2020 HEPATITIS B CORE AB TOTAL Non-Reactive Normal NON-REACTI VE [facility] Comment on above: Performed By: #### 2 63, 457, 82805, 7573, 508, 498, 326, 8472, 496, 249, 44056, 259 #### [facility] [address], [address] [place] [address] Operations Trainer: Kush Hines MD #### [id number] #### [facility], [address] [place] [phone] Operations Trainer: Susan Sheikh MD,PhD,JAY #### 08903, 74093 #### [facility]/[place] [id number] [facility] [place], [place] Operations Trainer: Parrish Gloria M.D.,PhD HEPATITIS B SURFACE ANTIBODY QLon 10-13-2020 HEPATITIS B SURFACE ANTIBODY QL Non-Reactive Normal NON-REACTI VE [facility] Comment on above: Performed By: #### 2 63, 457, 09628, 7573, 508, 498, 326, 8472, 496, 249, 53300, 259 #### [facility] [address], [address] [place] [address] Operations Trainer: Kush Hines MD #### [id number] #### [facility], [address] [place], [place] Operations Trainer: Susan Sheikh MD,PhD,JAY #### [id number], 09907 #### [facility]/[place] [address] [facility] [place], [place] Operations Trainer: Parrish Gloria M.D.,PhD HEPATITIS B SURFACE ANTIGEN W/REFL CONFIRMon 10-13-2020 HEPATITIS B SURFACE ANTIGEN Non-Reactive Normal NON-REACTI VE [facility] Comment on above: Performed By: #### 2 63, 457, 14167, 7573, 508, 498, 326, 8472, 496, 249, 90838, 259 #### [facility] [address] [place] [address], [address] [place] [address] Operations Trainer: Kush Hines MD #### [id number] #### [facility], [address] [place] [address] Operations Trainer: Susan Sheikh MD,PhD,JAY #### 70224, 38552 #### [facility]/[place] [id number] [facility] [address] [place] Operations Trainer: Parrish Gloria M.D.,PhD HEPATITIS C AB W/REFL TO HCV RNA, QN, PCRon 10-13-2020 HEPATITIS C ANTIBODY Non-Reactive Normal NON-CHARMAINE CTI VE [facility] Comment on above: Performed By: #### 2 63, 457, 50544, 7573, 508, 498, 326, 8472, 496, 249, 68176, 259 #### [facility] [place] [address] [facility], [address] [place] [address] Operations Trainer: Kush Hines MD #### 59245 #### [facility], [address] [place] [address] Operations Trainer: Susan Sheikh MD,PhD,JAY #### 97661, 45581 #### [facility] [address] [facility] [address] [place] Operations Trainer: Parrish Gloria M.D.,PhD INDEX 0.02 Normal <1.00 [facility] Comment on above: Result Comment: HCV antibody was non-reactive. There is no laboratory evidence of HCV infection. In most cases, no further action is required. However, if recent HCV exposure is suspected, a test for HCV RNA (test code 81812) is suggested. For additional information please refer to http://education.Mixaloo/faq/XIN00s4 (This link is being provided for informational/ educational purposes only.) Performed By: #### 2 63, 457, 97714, 7573, 508, 498, 326, 8472, 496, 249, 38984, 259 #### [facility] [address], [address] [place] [address] Operations Trainer: Kush Hines MD #### [id number] #### [facility], [address] [place] [address] Operations Trainer: Susan Sheikh MD,PhD,JAY #### 78245, 40012 #### [facility] [place], [place] Operations Trainer: Parrish Gloria M.D.,PhD IRON AND TOTAL IRON BINDING CAPACITYon 10-13-2020 % SATURATION 19 % (calc) Normal 16-45 [facility] Comment on above: Performed By: #### 2 63, 457, 77359, 7573, 508, 498, 326, 8472, 496, 249, 74543, 259 #### [facility] [address], [address] [place] [address] Operations Trainer: Kush Hines MD #### 42005 #### [facility], [address] [place] [address] Operations Trainer: Susan Sheikh MD,PhD,JAY #### 28059, 61852 #### [facility] [address] [facility] [place] Operations Trainer: Parrish Gloria M.D.,PhD IRON BINDING CAPACITY 372 mcg/dL (calc) Normal 250-450 [facility] Comment on above: Performed By: #### 2 63, 457, 89178, 7573, 508, 498, 326, 8472, 496, 249, 01979, 259 #### [facility] of [address] , [address] [place] [address] Operations Trainer: Kush Hines MD #### 05607 #### [facility], [address] [place] [address] Operations Trainer: Susan Sheikh MD,PhD,JAY #### 35067, 59412 #### [facility]/[place] [id number] [facility] [place], [place] Operations Trainer: Parrish Gloria M.D.,PhD IRON, TOTAL 70 mcg/dL Normal 45-160 [facility] Comment on above: Performed By: #### 2 63, 457, 29914, 7573, 508, 498, 326, 8472, 496, 249, 02529, 259 #### [facility] [address], [address] [place] [address] Operations Trainer: Kush Hines MD #### 87322 #### [facility], [address] [place] [phone] Operations Trainer: Susan Sheikh MD,PhD,JAY #### 62663, 95361 #### [facility] [address] [facility] [place], [place] Operations Trainer: Parrish Gloria M.D.,PhD LIVER KIDNEY MICROSOME (LKM- [...] infection. Performed By: #### 2 63, 457, 14717, 7573, 508, 498, 326, 8472, 496, 249, 13065, 259 #### [facility] [place] [address] Operations Trainer: Kush Hines MD #### 51082 #### [facility], [address] [place] [address] Operations Trainer: Susan Sheikh MD,PhD,JAY #### 77069, 93916 #### [facility]/[place] [id number] [facility] [place], [place] Operations Trainer: Parrish Gloria M.D.,PhD MITOCHONDRIAL ANTIBODY W/REF L TITERon 10-13-2020 MITOCHONDRIAL AB SCREEN Negative Normal NEGATIVE Q [facility] Comment on above: Performed By: #### 2 63, 457, 76476, 7573, 508, 498, 326, 8472, 496, 249, 03266, 259 #### [facility] [place] [address] Operations Trainer: Kush Hines MD #### 24126 #### [facility], [address] [place] [address] Operations Trainer: Susan Sehikh MD,PhD,JAY #### 07111, 10182 #### [facility]/[place] [address] [facility] [place], [place] Operations Trainer: Parrish Gloria M.D.,PhD SMOOTH MUSCLE AB W/REFL TITE Butch 10-13-2020 SMOOTH MUSCLE AB SCREEN Negative Normal NEGATIVE Q [facility] Comment on above: Performed By: #### 2 63, 457, 62527, 7573, 508, 498, 326, 8472, 496, 249, 57603, 259 #### [facility] [address], [address] [place], [place] [address] Operations Trainer: Kush Hines MD #### 84491 #### [facility] [address] [place] [address] Operations Trainer: Susan Sheikh MD,PhD,JAY #### 82238, 74145 #### [facility]/[place] [address] [facility] [place], [place] Operations Trainer: Parrish Gloria M.D.,PhD TSH W/REFLEX TO FT4on 2020 TSH W/REFLEX TO FT4 3.10 mIU/L Normal 0.40-4.50 [facility] Comment on above: Performed By: #### 2 63, 457, 42122, 7573, 508, 498, 326, 8472, 496, 249, 12536, 259 #### [facility] [address], [address] [place] [address] Operations Trainer: Kush Hines MD #### 59002 #### [facility] [address] [place] [address] Operations Trainer: Susan Sheikh MD,PhD,JAY #### 38376, 76204 #### [facility]/[place] [id number] [facility] [place], [place] Operations Trainer: Parrish Gloria M.D.,PhD CNOVSPon 09-30-2020 CNOVS Visit (SP) Office ([place]) -------- IVELISSE GEE ([id number]) 1950 F Date Time Provider Department 09/30/20 1:30 PM MEHRDAD AGUILAR During your visit today, we recorded the following information about you: Temperature Pulse Respiration Blood pressure 97.2 degrees 71/minute 18/minute 121/54 Weight Height 73.6 kg 1.57 m Mehrdad Aguilar MD 10/02/2020 5:36 PM Signed PATIENT NAME: Ivelisse Gee DATE: 09/30/2020 PRIMARY CARE PHYSICIAN: Carmen Conley MD OTHER PHYSICIANS: Dr. Wahl (PCP [place], [place]), Dr. Magdaleno Castillo ([facility]) Portions of this encounter note have [...] BP 121/ (more content not included)... Normal [facility] Albumin/Creat Ratioon 2020 Albumin Urine Random <12.0 Normal [facility] Comment on above: Performed By: #### C MP, INSLAB, LIPB, CPEPT, GADCAB, B12, VITD, UACR ####[place] [address] [place] [phone] Albumin/Creat Ratio Not calculated Normal <30 [facility] Comment on above: Performed By: #### C MP, INSLAB, LIPB, CPEPT, GADCAB, B12, VITD, UACR ####[place] [address] [place], [place] [phone] Creatinine,Urine,Ran 53.8 mg/dL Normal 20-300 [facility] Comment on above: Performed By: #### C MP, INSLAB, LIPB, CPEPT, GADCAB, B12, VITD, UACR ####[place] [address] [place], [place] [phone] C-Peptideon 09-27-2020 C-Peptide 1.8 ng/mL Normal 0.8-3.9 [facility] Comment on above: Performed By: #### C MP, INSLAB, LIPB, CPEPT, GADCAB, B12, VITD, UACR ####[place] [address] [place] [place], [place] [phone] CBC and Differentialon 09-27 Abs Baso 0.03 k/uL Normal <0.11 [facility] Abs Carbon 0.33 k/uL Normal <0.87 [facility] Abs Neut 4.29 k/uL Normal 1.45-7.50 [facility] Absolute nRBC <0.01 Normal <0.01 [facility] Basophils/100 WBC (Bld) 0.4 % Normal [facility] DTYPE Auto Diff Normal [facility] Eosinophils (Bld) [#/Vol] 0.12 10*3/uL Normal <0.46 [facility] Eosinophils/100 WBC (Bld) 1.5 % Normal [facility] Erythrocyte distribution width (RBC) [Ratio] 13.0 % Normal 11.5-15.0 [facility] Hematocrit (Bld) [Volume fraction] 37.3 % Normal 36.0-46.0 [facility] Hemoglobin (Bld) [Mass/Vol] 13.0 g/dL Normal 11.5-15.5 [facility] Lymphocytes (Bld) [#/Vol] 3.40 10*3/uL Normal 1.00-4.00 [facility] Lymphocytes/100 WBC (Bld) 41.6 % Normal [facility] MCH 31.9 pG Normal 26.0-34.0 [facility] MCHC (RBC) [Mass/Vol] 34.9 g/dL Normal 30.5-36.0 [facility] MCV (RBC) [Entitic vol] 91.4 fL Normal 80.0-100.0 [facility] Monocytes/100 WBC (Bld) 4.0 % Normal [facility] Neutrophils/100 WBC (Bld) 52.5 % Normal [facility] NRBCs 0.0 /100 WBC Normal 0 [facility] Platelet mean volume (Bld) [Entitic vol] 9.6 fL Normal 9.0-12.7 [facility] Platelets (Bld) [#/Vol] 164 10*3/uL Normal 150-400 [facility] RBC (Bld) [#/Vol] 4.08 10*6/uL Normal 3.90-5.20 [facility] WBC (Bld) [#/Vol] 8.18 10*3/uL Normal 3.70-11.00 [facility] Comp Metabolic Panelon 09-27 Albumin [Mass/Vol] 4.4 g/dL Normal 3.9-4.9 [facility] Comment on above: Performed By: #### C MP, INSLAB, LIPB, CPEPT, GADCAB, B12, VITD, UACR ####[facility] [address] [place] [phone] ALP [Catalytic activity/Vol] 88 U/L Normal 34-123 [facility] Comment on above: Performed By: #### C MP, INSLAB, LIPB, CPEPT, GADCAB, B12, VITD, UACR ####[place] [address] [address] [place], [place] [phone] ALT [Catalytic activity/Vol] 63 U/L High 7-38 [facility] Comment on above: Performed By: #### C MP, INSLAB, LIPB, CPEPT, GADCAB, B12, VITD, UACR ####[address] [phone] Anion gap [Moles/Vol] 12 mmol/L Normal 9-18 [facility] Comment on above: Performed By: #### C MP, INSLAB, LIPB, CPEPT, GADCAB, B12, VITD, UACR ####[address] [phone] AST [Catalytic activity/Vol] 42 U/L High 13-35 [facility] Comment on above: Performed By: #### C MP, INSLAB, LIPB, CPEPT, GADCAB, B12, VITD, UACR ####[address] [phone] Bilirubin [Mass/Vol] 0.6 mg/dL Normal 0.2-1.3 [facility] Comment on above: Performed By: #### C MP, INSLAB, LIPB, CPEPT, GADCAB, B12, VITD, UACR ####[address] [phone] Calcium [Mass/Vol] 9.2 mg/dL Normal 8.5-10.2 [facility] Comment on above: Performed By: #### C MP, INSLAB, LIPB, CPEPT, GADCAB, B12, VITD, UACR ####[facility] [place], [place] [phone] Chloride [Moles/Vol] 104 mmol/L Normal 97-105 [facility] Comment on above: Performed By: #### C MP, INSLAB, LIPB, CPEPT, GADCAB, B12, VITD, UACR ####[facility] [place], [place] [phone] Creatinine [Mass/Vol] 0.68 mg/dL Normal 0.58-0.96 [facility] Comment on above: Performed By: #### C MP, INSLAB, LIPB, CPEPT, GADCAB, B12, VITD, UACR ####[place] [address] [place], [place] [phone] Glucose [Mass/Vol] 152 mg/dL High 74-99 [facility] Comment on above: Result Comment: The [place] Diabetes Association (ADA) provides guidance for cutoff [...] Standards of Medical Care in Diabetes 2016, [place] [employer]. Diabetes Care. 2016.39(Suppl 1). Performed By: #### C MP, INSLAB, LIPB, CPEPT, GADCAB, B12, VITD, UACR ####[place] [address] [place], [place] [phone] Potassium [Moles/Vol] 4.3 mmol/L Normal 3.7-5.1 [facility] Comment on above: Performed By: #### C MP, INSLAB, LIPB, CPEPT, GADCAB, B12, VITD, UACR ####[facility] [place], [place] [phone] Sodium [Moles/Vol] 140 mmol/L Normal 136-144 [facility] Comment on above: Performed By: #### C MP, INSLAB, LIPB, CPEPT, GADCAB, B12, VITD, UACR ####[facility] [place], [place] [phone] Urea nitrogen [Mass/Vol] 14 mg/dL Normal 7-21 [facility] Comment on above: Performed By: #### C MP, INSLAB, LIPB, CPEPT, GADCAB, B12, VITD, UACR ####[facility] [place], [place] [phone] Albumin [Mass/Vol] 4.5 g/dL Normal 3.9-4.9 [facility] ALP [Catalytic activity/Vol] 83 U/L Normal 34-123 [facility] ALT [Catalytic activity/Vol] 58 U/L High 7-38 [facility] Anion gap [Moles/Vol] 11 mmol/L Normal 9-18 [facility] AST [Catalytic activity/Vol] 34 U/L Normal 13-35 [facility] Bilirubin [Mass/Vol] 0.7 mg/dL Normal 0.2-1.3 [facility] Calcium [Mass/Vol] 9.5 mg/dL Normal 8.5-10.2 [facility] Chloride [Moles/Vol] 103 mmol/L Normal 97-105 [facility] CO2 [Moles/Vol] 24 mmol/L Normal 22-30 [facility] Comment on above: Performed By: #### C MP, INSLAB, LIPB, CPEPT, GADCAB, B12, VITD, UACR ####[facility] [place], [place] [phone] Creatinine [Mass/Vol] 0.67 mg/dL Normal 0.58-0.96 [facility] eGFR- Amer. >60 Normal [facility] Comment on above: Performed By: #### C MP, INSLAB, LIPB, CPEPT, GADCAB, B12, VITD, UACR ####[facility] [place], [place] [phone] eGFR-All Other Races >60 Normal [facility] Comment on above: Result Comment: eGFR [...] INSLAB, LIPB, CPEPT, GADCAB, B12, VITD, UACR ####[facility] [place], [place] [phone] Glucose [Mass/Vol] 161 mg/dL High 74-99 [facility] Comment on above: Result Comment: The [place] Diabetes Association (ADA) provides guidance for cutoff [...] Standards of Medical Care in Diabetes 2016, [place] [employer]. Diabetes Care. 2016.39(Suppl 1). Potassium [Moles/Vol] 4.1 mmol/L Normal 3.7-5.1 [facility] Protein [Mass/Vol] 7.2 g/dL Normal 6.3-8.0 [facility] Comment on above: Performed By: #### C MP, INSLAB, LIPB, CPEPT, GADCAB, B12, VITD, UACR ####[facility] [place], [place] [phone] Sodium [Moles/Vol] 138 mmol/L Normal 136-144 [facility] Urea nitrogen [Mass/Vol] 13 mg/dL Normal 7-21 [facility] Glutamic Ac Decar Abon 09-27 Glutam Ac Dec Ab Ql Negative Normal Negative [facility] Comment on above: Performed By: #### C MP, INSLAB, LIPB, CPEPT, GADCAB, B12, VITD, UACR ####[place] [address] [place], [place] [phone] Glutamic Ac Decar Ab <5.0 Normal <5.1 [facility] Comment on above: Performed By: #### C MP, INSLAB, LIPB, CPEPT, GADCAB, B12, VITD, UACR ####[place] [address] [place], [place] [phone] Insulin Autoantibodyon 09-27 Insulin Ab Ql Negative Normal Negative [facility] Comment on above: Performed By: #### C MP, INSLAB, LIPB, CPEPT, GADCAB, B12, VITD, UACR ####[place] [address] [place], [place] [phone] Insulin Antibody <0.4 Normal <0.4 [facility] Comment on above: Performed By: #### C MP, INSLAB, LIPB, CPEPT, GADCAB, B12, VITD, UACR ####[place] [address] [place], [place] [phone] Lipid Panel, Bas[place] 021 Cholesterol [Mass/Vol] 110 mg/dL Normal <200 [facility] Comment on above: Result Comment: <200 mg/dL, Desirable 200-239 mg/dL, Borderline high >239 mg/dL, High Performed By: #### C MP, INSLAB, LIPB, CPEPT, GADCAB, B12, VITD, UACR ####[place] [address] [place], [place] [phone] Cholesterol in HDL [Mass/Vol] 37 mg/dL Low >39 [facility] Comment on above: Result Comment: 40-5 9 mg/dL, Acceptable >59 mg/dL, High: Negative risk factor for coronary heart disease <40 mg/dL, Low: Positive risk factor for coronary heart disease Performed By: #### C MP, INSLAB, LIPB, CPEPT, GADCAB, B12, VITD, UACR ####[place] [phone] Cholesterol in LDL [Mass/Vol] 49 mg/dL Normal <100 [facility] Comment on above: Result Comment: <100 mg/dL, Optimal 100-129 mg/dL, Near optimal/above optimal 130-159 mg/dL, Borderline high 160-189 mg/dL, High >189 mg/dL, Very high Secondary prevention optimal LDL Cholesterol levels are recommended to be < 70 mg/dL Performed By: #### C MP, INSLAB, LIPB, CPEPT, GADCAB, B12, VITD, UACR ####[address] [phone] Fasting Time 12 hrs Normal [facility] Comment on above: Performed By: #### C MP, INSLAB, LIPB, CPEPT, GADCAB, B12, VITD, UACR ####[address] [phone] LDL:HDL Ratio 1.32 Normal <2.54 [facility] Comment on above: Result Comment: [place] dao: 1. National Cholesterol Education Program ATP III Guideline At-A-Glance Quick Desk Reference: National Heart, Lung, and Blood [place]. National Institutes of Health. 2001: NIH Publication No. 01-3305. 2. An International Atherosclerosis Society position paper: global recommendations for the management of dyslipidemia: executive summary, Atherosclerosis. 2014: 232(2):410-413. Performed By: #### C MP, INSLAB, LIPB, CPEPT, GADCAB, B12, VITD, UACR ####[address] [place], [place] [phone] Non HDL Cholesterol 73 mg/dL Normal <130 [facility] Comment on above: Result Comment: <130 mg/dL, Optimal 130-159 mg/dL, Near optimal/above optimal 160-189 mg/dL, Borderline high 190-219 mg/dL, High >219 mg/dL, Very high Secondary prevention optimal non HDL Cholesterol levels are recommended to be < 100 mg/dL Performed By: #### C MP, INSLAB, LIPB, CPEPT, GADCAB, B12, VITD, UACR ####[address] [phone] TC:HDL Ratio 2.97 Normal <5.10 [facility] Comment on above: Performed By: #### C MP, INSLAB, LIPB, CPEPT, GADCAB, B12, VITD, UACR ####[address] [phone] Triglyceride [Mass/Vol] 121 mg/dL Normal <150 [facility] Comment on above: Result Comment: <150 mg/dL, Normal 150-199 mg/dL, Borderline high 200-499 mg/dL, High >499 mg/dL, Very high Performed By: #### C MP, INSLAB, LIPB, CPEPT, GADCAB, B12, VITD, UACR ####[address] [place], [place] [phone] VLDL Cholesterol 24 mg/dL Normal <30 [facility] Comment on above: Performed By: #### C MP, INSLAB, LIPB, CPEPT, GADCAB, B12, VITD, UACR ####[address] [phone] Vitamin B12on 09-27-2020 Cobalamin (Vitamin B12) [Mass/Vol] 431 pg/mL Normal 232-1245 [facility] Comment on above: Performed By: #### C MP, INSLAB, LIPB, CPEPT, GADCAB, B12, VITD, UACR ####[facility] [place], [place] [phone] Vitamin D 25 Hydroxyon 09-27 Vitamin D 25 Hydroxy 47.2 ng/mL Normal 31.0-80.0 [facility] Comment on above: Result Comment: Clas sification of 25 [place] Vitamin D status: Insufficiency/Moderate Deficiency: < or = 30 ng/mL Sufficiency/Optimal Levels: 31 to 80 ng/mL Toxicity: > 100 ng/mL Test performed by chemiluminescent immunoassay. Performed By: #### C MP, INSLAB, LIPB, CPEPT, GADCAB, B12, VITD, UACR ####[facility] [place], [place] [phone] CNPNiki 09-22-2020 MINNAN Telephone ([place]) -------- IVELISSE GEE ([id number]) 1950 F Date Time Provider Department 09/22/20 [...] Date Reviewed: 09/22/2020 Reviewed by: Mac Perez APRN.PHOTOTYPESETTER OPERATOR - Fully Assessed Reason for Visit: Lab Orders [6458] Primary Visit Diagnosis:Thrombocytopen ia (HCC) [D69.6] Order(s):CBC + DIFF [SQCBCDIF] Order #: [id number] STANDING COMP METABOLIC PANEL [SQCMP] Order #: [id number] STANDING Prescriptions as of 09/22/2020 Sig: METFORMIN [...] Status:Closed by MAC PEREZ on 09/22/20 Normal [facility] MRI ABDOMEN WO/W IVCONon MRI ABDOMEN WO/W IVCON * * *Final Report * * * DATE OF EXAM: Sep 21 2020 11:45AM [facility] 0689 - MRI ABDOMEN WO/W IVCON / [...] 6 months is recommended to assess the alf stability, progression or resolution of the findings. No enhancing pancreatic mass with special attention to the head of the pancreas. 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 5 mm and 9 mm Bosniak type II hemorrhagic cysts at the midpole of the left kidney. Additional subcentimeter renal cysts. Cholecystectomy with mildly dilatation. No choledocholithiasis. Shoe Planner: SHAHRZAD Transcribe Date/Time: Sep 21 2020 1:58P Dictated by : ANA MARÍA ARAIZA MD This examination was interpreted and the report reviewed and electronically signed by: ANA MARÍA ARAIZA MD on Sep 21 2020 10:19PM EST [id number] Normal [facility] CNPNiki 09-01-2020 CNPN Telephone (HEMASA) -------- IVELISSE GEE ([id number]) 1950 F Date Time Provider Department 09/01/20 [...] Clerical: Please schedule pt for MRI at [facility]. Thank you. BRM: Order pending, please review and sign. MONICO Louie 09/01/2020 2:24 PM Signed Called patient to inform her that she has been scheduled for MRI @ [facility] on 09/07/20 @ 8:30am. LMOV. 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 Emergency Management Consultant (topogram) images: No additional findings. IMPRESSION: 1. [...] any questions regarding this interpretation, please call [phone]. If you are unable to reach us at the number above, please feel free to contact [facility] eRadiology at [phone]. [id number] Normal [facility] Protein Electrophor.on 08-30 Albumin [Mass/Vol] 4.24 g/dL High 3.37-4.23 [facility] Comment on above: Performed By: #### S EPG ####[place] [id number] [place] [phone] Alpha 1 Globulin 0.27 gm/dL Normal 0.18-0.31 [facility] Comment on above: Performed By: #### S EPG ####[place] [address] [place], [place] [phone] Alpha 2 Globulin 0.82 gm/dL Normal 0.52-0.97 [facility] Comment on above: Performed By: #### S EPG ####[facility] [address] [place], [place] [phone] Beta Globulin 1.11 gm/dL Normal 0.84-1.36 [facility] Comment on above: Performed By: #### S EPG ####[place] [address] [place], [place] [phone] Gamma Globulin 1.27 gm/dL Normal 0.70-1.44 [facility] Comment on above: Performed By: #### S EPG ####[address] [phone] Interpretation SEE COMMENT [facility] Comment on above: Result Comment: No d efinitive M protein is identified on protein electrophoresis. Performed By: #### S EPG ####[address] [phone] M Protein Location N/A [facility] Comment on above: Performed By: #### S EPG ####[address] [phone] M Shmuel Concentratn 0.00 gm/dL Normal 0.00 [facility] Comment on above: Performed By: #### S EPG ####[address] [phone] Protein [Mass/Vol] 7.7 g/dL Normal 6.3-8.0 [facility] Comment on above: Performed By: #### S EPG ####[address] [phone] SPE Staff Review Reviewed by Audelia Cabrera MD ([id number]) [facility] Comment on above: Performed By: #### S EPG ####[address] [phone] Js 08-23-2020 CNPN Telephone (GRACIEAP) -------- IVELISSE GEE ([id number]) 1950 F Date Time Provider Department 08/23/20 MEHRDAD AGUILAR During your visit today, we recorded the following information about you: Adele Delong 08/23/2020 9:45 AM Signed Marta Cuellar Pss MP ? 9:12 AM Note lvm returning GI's call to call back regarding patient to schedule patient for this referral. August 19, 2020 ? ? 3:53 PM Lorri Keyes Sec routed this conversation to [facility] Clerical Pool Lorri Keyes Sec ? 3:53 PM Note Left message at Dr Magdaleno Cuello [facility]. They may ask for me. She needs to be seen for Liver cirrhosis. Please call [phone] to refer this patient if they do not call back to schedule. Tracy Gonzáles [facility] 08/24/2020 10:00 AM Signed Records and referral faxed to [facility]. Marta Cuellar Pss 08/25/2020 1:09 PM [...] Encounter Status:Closed by ADELE DELONG on 09/20/20 [facility] Js 08-22-2020 [facility] Telephone ([facility]) -------- IVELISSE GEE ([id number]) 1950 F Date Time Provider Department 08/22/20 MEHRDAD AGUILAR During your visit today, we recorded the following information about you: Allergies As of Date: 08/22/2020 Noted Allergy Reaction SULFA (SULFONAMIDE ANTIBIOTICS) 09/05/2016 10 - Anaphylaxis LATEX, NATURAL RUBBER 09/06/2016 16 - Unknown Comments: Only bandaids Date Reviewed: 08/19/2020 Reviewed by: Carlos Brewer MA - Fully Assessed Reason for Visit: Patient Question [0423] Prescriptions as of 08/22/2020 Sig: METFORMIN ER [...] Encounter Status:Closed by MARTA GARCES on 08/22/20 [facility] CNOVSPon 08-19-2020 CNOVSP Visit (SP) Office ([place]) -------- IVELISSE GEE ([id number]) 1950 F Date Time Provider Department 08/19/20 11:15 AM MEHRDAD AGUILAR During your visit today, we recorded the following information about you: Temperature Pulse Respiration Blood pressure 98.2 degrees 88/minute 16/minute 130/56 Weight Height 74 kg 1.57 m Mehrdad Aguilar MD 08/20/2020 1:40 PM Signed PATIENT NAME: Ivelisse eGe DATE: 08/19/2020 PRIMARY CARE PHYSICIAN: Carmen Conley MD OTHER PHYSICIANS: Dr. Wahl ((PCP [place], [place]) HPI: This is a 70 year [...] requiring hospitalization, most recently while residing in [place] in June 2020. During her recent hospitalization labs revealed persistent thrombocytopenia with a platelet count ranging from 80-90,000. The patient is currently referred for evaluation of her abnormal CBC. Since the patient's hospitalization she started gyzu-jax-wlhpezk supplements including multivitamin. She has had no [...] intolerance, urinar (more content not included)... Normal [facility] Js 08-19-[facility] -------- IVELISSE GEE ([id number]) 1950 F Date Time Provider Department 08/19/20 JESSIE ACUÑA (RN) [place] During your visit today, we recorded the following information about you: Jessie Acuña 08/19/2020 12:27 PM Signed Please sign pending CAP CTs w/IVCON for Ivelisse Gee [id number] who was added to the schedule for [...] lymph node [R59.9] Order(s):CT ABD/PEL W IVCON [[id number]] Order #: [id number] FUTURE iv contrast (will be provided with [...] Status:Closed by JESSIE ACUÑA on 08/19/20 Normal [facility] Comp Metabolic Panelon 08-19 Albumin [Mass/Vol] 4.7 g/dL Normal 3.9-4.9 [facility] ALP [Catalytic activity/Vol] 93 U/L Normal 34-123 [facility] ALT [Catalytic activity/Vol] 56 U/L High 7-38 [facility] Anion gap [Moles/Vol] 12 mmol/L Normal 9-18 [facility] AST [Catalytic activity/Vol] 40 U/L High 13-35 [facility] Bilirubin [Mass/Vol] 0.9 mg/dL Normal 0.2-1.3 [facility] Calcium [Mass/Vol] 9.8 mg/dL Normal 8.5-10.2 [facility] Chloride [Moles/Vol] 102 mmol/L Normal 97-105 [facility] CO2 [Moles/Vol] 22 mmol/L Normal 22-30 [facility] Creatinine [Mass/Vol] 0.66 mg/dL Normal 0.58-0.96 [facility] eGFR- Amer. >60 Normal [facility] eGFR-All Other Races >60 Normal [facility] Comment on above: Result Comment: eGFR [...] GFR. Glucose [Mass/Vol] 258 mg/dL High 74-99 [facility] Comment on above: Result Comment: The [place] Diabetes Association (ADA) provides guidance for cutoff [...] Standards of Medical Care in Diabetes 2016, [place] [employer] Association. Diabetes Care. 2016.39(Suppl 1). Potassium [Moles/Vol] 4.3 mmol/L Normal 3.7-5.1 [facility] Protein [Mass/Vol] 8.0 g/dL Normal 6.3-8.0 [facility] Sodium [Moles/Vol] 136 mmol/L Normal 136-144 [facility] Urea nitrogen [Mass/Vol] 13 mg/dL Normal 7-21 [facility] Ferritinon 08-19-2020 Ferritin [Mass/Vol] 184.0 ng/mL Normal 14.7-205.1 [facility] Comment on above: Performed By: #### F ERR, IRON ####[place] [address], [place] [phone] Iron and TIBCon 08-19-2020 Iron [Mass/Vol] 116 ug/dL Normal 41-186 [facility] Comment on above: Performed By: #### F ERR, IRON ####[place] [address], [place] [phone] TIBC 357 ug/dL Normal 232-386 [facility] Comment on above: Performed By: #### F ERR, IRON ####[address] [place], [place] [phone] Transferrin Saturatn 32 % Normal 15-57 [facility] Comment on above: Performed By: #### F ERR, IRON ####[address] [place], [place] [phone] LDon 08-19-2020 LD 171 U/L Normal 135-214 [facility] Monclnl Protein, Seron 08-19 K/L Ratio, Serum 1.43 Normal 0.26-1.65 [facility] Comment on above: Performed By: #### S ERMPA, B12 ####[address] [phone] Leando, Free, Serum 28.3 mg/L High 3.30-19.40 [facility] Comment on above: Result Comment: Test performed by an immunoturbidimetric assay on [employer] instrument from [facility]. Immunoglobulin free light chain assay results should be interpreted in conjunction with other tests and in correlation with clinical picture. Performed By: #### S ANGELICA B12 ####[place] [address] [place] [phone] Lambda, Free, Serum 19.8 mg/L Normal 5.7-26.3 [facility] Comment on above: Result Comment: Test performed by an immunoturbidimetric assay on [employer] instrument from [facility]. Immunoglobulin free light chain assay results should be interpreted in conjunction with other tests and in correlation with clinical picture. Performed By: #### S ANGELICA B12 ####[address] [place] [phone] MPA Interpretation SEE COMMENT Normal [facility] Comment on above: Result Comment: Poor [...] necessary. Performed By: #### Marlee DOMINGUEZ B12 ####[address] [place] [phone] MPA Result A poorly defined reg ion of restricted mobility is present that may represent an M protein. Critically abnormal No M protein is identified . [facility] Comment on above: Performed By: #### S ANGELICA B12 ####[facility] [place] [phone] MPA Serum IgA 196 mg/dL Normal 70-400 [facility] Comment on above: Performed By: #### S ANGELICA, B12 ####[facility] [phone] MPA Serum IgG 1243 mg/dL Normal 700-1600 [facility] Comment on above: Performed By: #### S ANGELICA, B12 ####[place] [address] [place], [place] [phone] MPA Serum IgM 58 mg/dL Normal 40-230 [facility] Comment on above: Performed By: #### S ANGELICA, B12 ####[facility] [place], [place] [phone] Staff Review Reviewed by Audelia Cabrera MD ([id number]) Normal [facility] Comment on above: Performed By: #### S ANGELICA, B12 ####[facility] [place], [place] [phone] Remote CBCDIF (for [facility] use o nly)on 08-19-2020 Abs Baso <0.03 Normal <0.11 [facility] Abs Carbon 0.33 k/uL Normal <0.87 [facility] Abs Neut 3.89 k/uL Normal 1.45-7.50 [facility] Absolute nRBC <0.01 Normal <0.01 [facility] Basophils/100 WBC (Bld) 0.3 % Normal [facility] DTYPE Auto Diff Normal [facility] Eosinophils (Bld) [#/Vol] 0.14 10*3/uL Normal <0.46 [facility] Eosinophils/100 WBC (Bld) 2.0 % Normal [facility] Erythrocyte distribution width (RBC) [Ratio] 12.8 % Normal 11.5-15.0 [facility] Hematocrit (Bld) [Volume fraction] 40.5 % Normal 36.0-46.0 [facility] Hemoglobin (Bld) [Mass/Vol] 13.8 g/dL Normal 11.5-15.5 [facility] Lymphocytes (Bld) [#/Vol] 2.71 10*3/uL Normal 1.00-4.00 [facility] Lymphocytes/100 WBC (Bld) 38.1 % Normal [facility] MCH 31.2 pG Normal 26.0-34.0 [facility] MCHC (RBC) [Mass/Vol] 34.1 g/dL Normal 30.5-36.0 [facility] MCV (RBC) [Entitic vol] 91.4 fL Normal 80.0-100.0 [facility] Monocytes/100 WBC (Bld) 4.6 % Normal [facility] Neutrophils/100 WBC (Bld) 55.0 % Normal [facility] NRBCs 0.0 /100 WBC Normal 0 [facility] Platelet mean volume (Bld) [Entitic vol] 9.7 fL Normal 9.0-12.7 [facility] Platelets (Bld) [#/Vol] 170 10*3/uL Normal 150-400 [facility] RBC (Bld) [#/Vol] 4.43 10*6/uL Normal 3.90-5.20 [facility] WBC (Bld) [#/Vol] 7.11 10*3/uL Normal 3.70-11.00 [facility] Reticulocyteon 08-19-2020 Abs Retic 0.096 M/uL Normal 0.0180-0.1 000 [facility] Retic% 2.2 % High 0.4-2.0 [facility] Vitamin B12on 08-19-2020 Cobalamin (Vitamin B12) [Mass/Vol] 421 pg/mL Normal 232-1245 [facility] Comment on above: Performed By: #### S ERMSANTO, B12 ####[facility] [address] [place], [place] [phone] Vital Signs Date Time Vital Sign Value Performing Clinician Faci lity 10-08-2023 13:29-0400 Diastolic blood pressure 80 mm[Hg] Dontae Hernández [facility] 10-08-2023 13:29-0400 Heart rate 79 /min Dontae Hernández [facility] 10-08-2023 13:29-0400 Respiratory rate 20 /min Dontae Hernández [facility] 10-08-2023 13:29-0400 SaO2% (BldA) [Mass fraction] 94 % Dontae Hernández [facility] 10-08-2023 13:29-0400 Systolic blood pressure 134 mm[Hg] Dontae Hernández [facility] 09-05-2023 10:12-0400 Diastolic blood pressure 86 mm[Hg] Dontae Hernández [facility] 09-05-2023 10:12-0400 Mean blood pressure 105 mm[Hg] Dontae Hernández [facility] 09-05-2023 10:12-0400 Systolic blood pressure 142 mm[Hg] Dontae Hernández [facility] 09-05-2023 10:01-0400 Blood Pressure Location Dontae Hernández [facility] 09-05-2023 10:01-0400 Diastolic blood pressure 88 mm[Hg] Dontae Hernández [facility] 09-05-2023 10:01-0400 Heart rate 82 /min Dontae Hernández [facility] 09-05-2023 10:01-0400 SaO2% (BldA) [Mass fraction] 97 % Dontae Hernández [facility] 09-05-2023 10:01-0400 Systolic blood pressure 142 mm[Hg] Dontae Hernández [facility] 07-24-2023 13:50-0400 Blood Pressure Location Shaun Goode [facility] 07-24-2023 13:50-0400 Diastolic blood pressure 77 mm[Hg] Shaun Goode [facility] 07-24-2023 13:50-0400 Heart rate 85 /min Shaun Goode [facility] 07-24-2023 13:50-0400 Respiratory rate 16 /min Shaun Goode [facility] 07-24-2023 13:50-0400 Systolic blood pressure 135 mm[Hg] Mohamad Mouchli [facility] 07-02-2023 09:50-0400 Diastolic blood pressure 72 mm[Hg] Mohamad Mouchli [facility] 07-02-2023 09:50-0400 Heart rate 82 /min Mohamad Mouchli [facility] 07-02-2023 09:50-0400 Mean blood pressure 97 mm[Hg] Mohamad Mouchli [facility] 07-02-2023 09:50-0400 Respiratory rate 17 /min Mohamad Mouchli [facility] 07-02-2023 09:50-0400 SaO2% (BldA) [Mass fraction] 94 % Mohamad Mouchli [facility] 07-02-2023 09:50-0400 Systolic blood pressure 148 mm[Hg] Mohamad Mouchli [facility] 07-02-2023 09:40-0400 Diastolic blood pressure 72 mm[Hg] Mohamad Mouchli [facility] 07-02-2023 09:40-0400 Heart rate 80 /min Mohamad Mouchli [facility] 07-02-2023 09:40-0400 Mean blood pressure 92 mm[Hg] Mohamad Mouchli [facility] 07-02-2023 09:40-0400 Respiratory rate 11 /min Mohamad Mouchli [facility] 07-02-2023 09:40-0400 SaO2% (BldA) [Mass fraction] 93 % Mohamad Mouchli [facility] 07-02-2023 09:40-0400 Systolic blood pressure 132 mm[Hg] Mohamad Mouchli [facility] 07-02-2023 09:35-0400 Diastolic blood pressure 62 mm[Hg] Mohamad Mouchli [facility] 07-02-2023 09:35-0400 Heart rate 86 /min Mohamad Mouchli [facility] 07-02-2023 09:35-0400 Mean blood pressure 90 mm[Hg] Mohamad Mouchli [facility] 07-02-2023 09:35-0400 Respiratory rate 15 /min Mohamad Mouchli [facility] 07-02-2023 09:35-0400 SaO2% (BldA) [Mass fraction] 93 % Mohamad Mouchli [facility] 07-02-2023 09:35-0400 Systolic blood pressure 147 mm[Hg] Mohamad Mouchli [facility] 07-02-2023 09:25-0400 Body temperature 97.16 [degF] Mohamad Mouchli [facility] 07-02-2023 08:43-0400 Blood Pressure Location Mohamad Mouchli [facility] 07-02-2023 08:43-0400 Body temperature 96.8 [degF] Mohamad Mouchli [facility] 06-26-2023 12:17-0400 Blood Pressure Location Mohamad Mouchli [facility] 06-26-2023 12:17-0400 Diastolic blood pressure 82 mm[Hg] Mohamad Mouchli [facility] 06-26-2023 12:17-0400 Heart rate 80 /min Mohamad Mouchli [facility] 06-26-2023 12:17-0400 Respiratory rate 16 /min Ramyad Mouchli [facility] 06-26-2023 12:17-0400 Systolic blood pressure 138 mm[Hg] Ramyad Mouchli [facility] 06-21-2023 13:44-0400 Diastolic blood pressure 68 mm[Hg] Deonte Blancbabatunde [facility] 06-21-2023 13:44-0400 Heart rate 96 /min Deonte Peraza [facility] 06-21-2023 13:44-0400 SaO2% (BldA) [Mass fraction] 95 % Deonte Soteroofferson [facility] 06-21-2023 13:44-0400 Systolic blood pressure 138 mm[Hg] Deonte Blancerson [facility] 03-21-2023 13:30-0500 Body height 153.67 cm Carmen Conley Other [employer] Other 03-21-2023 13:30-0500 Body mass index (BMI) [Ratio] 30.54 kg/m2 Carmen Conley Other [employer] Other 03-21-2023 13:30-0500 Body weight 72.12 kg Carmen Conley Other [employer] Other 03-21-2023 13:30-0500 Diastolic blood pressure 79 mm[Hg] Carmen Conley Other [employer] Other 03-21-2023 13:30-0500 Systolic blood pressure 136 mm[Hg] Carmen Conley Other [employer] Other 01-24-2023 11:15-0400 Body height 153.67 cm Carmen Conley Other [employer] Other 01-24-2023 11:15-0400 Body mass index (BMI) [Ratio] 29.58 kg/m2 Carmen Conley Other [employer] Other 01-24-2023 11:15-0400 Body temperature 97.7 [degF] Carmen Conley Other [employer] Other 01-24-2023 11:15-0400 Body weight 69.85 kg Carmen Conley Other [employer] Other 01-24-2023 11:15-0400 Diastolic blood pressure 80 mm[Hg] Carmen Conley Other [employer] Other 01-24-2023 11:15-0400 SaO2% (BldA) [Mass fraction] 97 % Carmen Conley Other [employer] Other 01-24-2023 11:15-0400 Systolic blood pressure 137 mm[Hg] Carmen Conley Other [employer] Other 12-28-2022 13:30-0400 Body height 153.67 cm Carmen Conley Other [employer] Other 12-28-2022 13:30-0400 Body mass index (BMI) [Ratio] 29.96 kg/m2 Carmen Conley Other [employer] Other 09-22-2023 13:30-0400 Body weight 70.76 kg Carmen Conley Other [employer] Other 12-28-2022 13:30-0400 Diastolic blood pressure 64 mm[Hg] Carmen Conley Other [employer] Other 12-28-2022 13:30-0400 Systolic blood pressure 106 mm[Hg] Carmen Conley Other [employer] Other 08-07-2022 12:45-0400 Body height 153.67 cm Carmen Conley Other [employer] Other 08-07-2022 12:45-0400 Body mass index (BMI) [Ratio] 30.15 kg/m2 Carmen Conley Other [employer] Other 08-07-2022 12:45-0400 Body temperature 98.1 [degF] Carmen Conley Other [employer] Other 08-07-2022 12:45-0400 Body weight 71.22 kg Carmen Conley Other [employer] Other 08-07-2022 12:45-0400 Diastolic blood pressure 72 mm[Hg] Carmen Conley Other [employer] Other 08-07-2022 12:45-0400 SaO2% (BldA) [Mass fraction] 97 % Carmen Conley Other [employer] Other 08-07-2022 12:45-0400 Systolic blood pressure 132 mm[Hg] Carmen Conley Other [employer] Other 06-20-2022 12:00-0400 Body height 153.67 cm Carmen Conley Other [employer] Other 06-20-2022 12:00-0400 Body mass index (BMI) [Ratio] 30.54 kg/m2 Carmen Conley Other [employer] Other 06-20-2022 12:00-0400 Body weight 72.12 kg Carmen Conley Other [employer] Other 06-20-2022 12:00-0400 Diastolic blood pressure 70 mm[Hg] Carmen Conley Other [employer] Other 06-20-2022 12:00-0400 SaO2% (BldA) [Mass fraction] 98 % Carmen Conley Other [employer] Other 06-20-2022 12:00-0400 Systolic blood pressure 118 mm[Hg] Carmen Conley Other [employer] Other 06-12-2022 09:30-0500 Body height 153.67 cm Carmen Conley Other [employer] Other 06-12-2022 09:30-0500 Body mass index (BMI) [Ratio] 30.54 kg/m2 Carmen Conley Other [facility] Other 06-12-2022 09:30-0500 Body weight 72.12 kg Carmen Conley Other [facility] Other 06-12-2022 09:30-0500 Diastolic blood pressure 64 mm[Hg] Carmen Conley Other [facility] Other 06-12-2022 09:30-0500 SaO2% (BldA) [Mass fraction] 97 % Carmen Conley Other [facility] Other 06-12-2022 09:30-0500 Systolic blood pressure 116 mm[Hg] Carmen Conley Other [facility] Other 05-10-2022 11:00-0500 Body height 153.67 cm Carmen Conley Other [facility] Other 05-10-2022 11:00-0500 Body mass index (BMI) [Ratio] 30.54 kg/m2 Carmen Conley Other [facility] Other 05-10-2022 11:00-0500 Body weight 72.12 kg Carmen Conley Other [facility] Other 05-10-2022 11:00-0500 Diastolic blood pressure 62 mm[Hg] Carmen Conley Other [facility] Other 05-10-2022 11:00-0500 SaO2% (BldA) [Mass fraction] 97 % Carmen Conley Other [facility] Other 05-10-2022 11:00-0500 Systolic blood pressure 118 mm[Hg] Carmen Conley Other [facility] Other 04-20-2022 11:30-0500 Body height 153.67 cm Carmen Conley Other [facility] Other 04-20-2022 11:30-0500 Body mass index (BMI) [Ratio] 30.54 kg/m2 Carmen Conley Other [facility] Other 04-20-2022 11:30-0500 Body weight 72.12 kg Carmen Conley Other [facility] Other 04-20-2022 11:30-0500 Diastolic blood pressure 80 mm[Hg] Carmen Conley Other [facility] Other 04-20-2022 11:30-0500 SaO2% (BldA) [Mass fraction] 97 % Carmen Conley Other [facility] Other 04-20-2022 11:30-0500 Systolic blood pressure 126 mm[Hg] Carmen Conley Other [facility] Other 04-16-2022 15:15-0500 Body height 153.67 cm Carmen Conley Other [facility] Other 04-16-2022 15:15-0500 Body mass index (BMI) [Ratio] 30.35 kg/m2 Carmen Conley Other [facility] Other 04-16-2022 15:15-0500 Body weight 71.67 kg Carmen Conley Other [facility] Other 04-16-2022 15:15-0500 Diastolic blood pressure 82 mm[Hg] Carmen Conley Other [facility] Other 04-16-2022 15:15-0500 SaO2% (BldA) [Mass fraction] 97 % Carmen Conley Other [facility] Other 04-16-2022 15:15-0500 Systolic blood pressure 136 mm[Hg] Carmen Conley Other [facility] Other Encounters Encounter Date Encounter Type Care Provider Facility Start: 11-25-2023 End: 11-25-2023 ambulatory Nohemy Mohamud MD [facility] Start: 10-28-2023 End: 10-28-2023 ambulatory Nohemy Mohamud MD Facility: [facility] Start: 10-08-2023 End: 10-08-2023 ambulatory PA-C Dontae Hernández Facility:[facility] Start: 10-08-2023 End: 10-08-2023 Patient encounter procedure Dontae Hernández [facility] Start: 10-01-2023 End: 10-01-2023 ambulatory PA-C Dontae Hernández Facility:[facility] Start: 10-01-2023 End: 10-01-2023 Patient encounter procedure Dontae Hernández [facility] Start: 09-05-2023 End: 09-05-2023 ambulatory XXXX NONE Facility:[facility] Start: 09-05-2023 End: 09-05-2023 Patient encounter procedure Dontae Hernández [facility] Start: 08-05-2023 End: 08-05-2023 ambulatory Deonte Peraza Facility:[facility] Start: 08-05-2023 End: 08-05-2023 Patient encounter procedure Deonte Peraza [facility] Start: 08-01-2023 End: 08-16-2023 Pre-admission assessment Deonte Peraza [facility] Start: 07-24-2023 End: 08-07-2023 Pre-admission assessment Shaun Goode [facility] Start: 07-24-2023 End: 07-24-2023 ambulatory Shaun Goode Facility:[facility] Start: 07-24-2023 End: 07-24-2023 Patient encounter procedure Shaun Goode [facility] Start: 07-02-2023 End: 07-02-2023 ambulatory Shaun Goode Facility:[facility] Start: 07-02-2023 End: 07-02-2023 Patient encounter procedure Shaun Goode [facility] Start: 06-26-2023 End: 06-26-2023 ambulatory Shaun Goode Facility:[facility] Start: 06-26-2023 End: 06-26-2023 Patient encounter procedure Shaun Wildmaximo [facility] Start: 06-26-2023 End: 06-26-2023 ambulatory Shaun WolfeJeff Junitomaximo [facility] Start: 06-26-2023 End: 06-26-2023 Patient encounter procedure Shaun WolfeJeff Junitomaximo [facility] Start: 06-21-2023 End: 06-21-2023 ambulatory Deonte Peraza Facility:[facility] Start: 06-21-2023 End: 06-21-2023 Patient encounter procedure Deonte Peraza [facility] Start: 06-18-2023 End: 06-18-2023 ambulatory MD Lucho GOINS Facility:[facility] Start: 06-18-2023 End: 06-18-2023 Patient encounter procedure CARMEN CONLEY [facility] Start: 06-13-2023 ambulatory JANUSZ Turner ity:[facility] Start: 05-14-2023 End: 05-14-2023 ambulatory Carmen Conley Other [facility] Other Start: 05-14-2023 Telephone encounter Carmen Conley [facility] Start: 04-16-2023 End: 04-16-2023 ambulatory ZULEIMA A FELTER Not Available Start: 04-03-2023 End: 04-03-2023 ambulatory Carmen Conley Other [facility] Other Start: 04-03-2023 Telephone encounter Carmen Conley [facility] Start: 04-02-2023 End: 04-02-2023 ambulatory Carmen Yael Other [facility] Other Start: 04-02-2023 Telephone encounter Carmen Conley [facility] Start: 03-21-2023 End: 03-21-2023 ambulatory Carmen Yael Other [facility] Other Start: 03-21-2023 Office outpatient vi sit 15 minutes Carmen Conley [facility] Start: 03-21-2023 Telephone encounter Carmen Conley [facility] Start: 03-04-2023 End: 03-04-2023 ambulatory ZULEIMA Wolfe FELTER Not Available Start: 02-06-2023 End: 02-06-2023 ambulatory Carmen Conley Other [facility] Other Start: 02-06-2023 Telephone encounter Carmen Conley [facility] Start: 02-01-2023 End: 02-01-2023 ambulatory Carmen Conley Other [facility] Other Start: 02-01-2023 Telephone encounter Carmen Conley [facility] Start: 01-24-2023 End: 01-24-2023 ambulatory Carmen Conley Other [facility] Other Start: 01-24-2023 Office outpatient vi sit 15 minutes Carmen Conley [facility] Start: 01-17-2023 End: 01-17-2023 ambulatory Carmen Conley Other [facility] Other Start: 01-17-2023 Telephone encounter Carmen Conley [facility] Start: 01-01-2023 End: 01-01-2023 ambulatory Carmen Conley Other [facility] Other Start: 01-01-2023 Telephone encounter Carmen Conley [facility] Start: 12-28-2022 End: 12-28-2022 ambulatory Carmen Conley Other [facility] Other Start: 12-28-2022 Patient encounter procedure Carmen Conley [facility] Start: 10-04-2022 End: 10-04-2022 ambulatory Carmen Conley Other [facility] Start: 10-04-2022 Telephone encounter Carmen Conley [facility] Start: 08-09-2022 End: 08-09-2022 ambulatory Carmen Conley Other [facility] Other Start: 08-09-2022 Telephone encounter Carmen Conley [facility] Start: 08-08-2022 Telephone encounter Carmen Yael [facility] Start: 08-08-2022 End: 08-09-[address] CARMEN CONLEY [facility] Start: 08-07-2022 End: 08-07-2022 ambulatory Carmen Conley Other [facility] Other Start: 08-07-2022 Office outpatient vi sit 15 minutes Carmen Conley [facility] Start: 07-31-2022 End: 07-31-2022 ambulatory Carmen Conley Other [facility] Other Start: 07-31-2022 Telephone encounter Carmen Conley [facility] Start: 07-24-2022 End: 07-24-2022 ambulatory Carmen Conley Facility:[facility] Start: 07-02-2022 End: 07-03-[address] CARMEN CONLEY Facility: Start: 06-20-2022 End: 06-20-2022 ambulatory Carmen Conley Other [facility] Other Start: 06-20-2022 Office outpatient vi sit 10 minutes Carmen Cnoley [facility] Start: 06-14-2022 End: 06-14-2022 ambulatory Carmen Conlye Other [facility] Other Start: 06-14-2022 Telephone encounter Carmen Conley [facility] Start: 06-12-2022 Office outpatient vi sit 15 minutes Carmen Conley [facility] Start: 06-12-2022 End: 06-13-[address] CARMEN CONLEY [facility] Other Start: 05-10-2022 End: 05-10-2022 ambulatory Carmen Conley Other [facility] Other Start: 05-10-2022 Office outpatient vi sit 15 minutes Carmen Conley [facility] Start: 05-10-2022 Telephone encounter Carmen Conley [facility] Start: 05-03-2022 End: 05-03-2022 ambulatory Carmen Conley Other [facility] Start: 05-03-2022 Telephone encounter Carmen Conley [facility] Start: 04-23-2022 End: 04-24-[address] CARMEN CONLEY Facility: Start: 04-20-2022 End: 04-20-2022 ambulatory Carmen Conley Other [facility] Other Start: 04-20-2022 Office outpatient vi sit 25 minutes Carmen Conley [facility] Start: 04-17-2022 End: 04-17-2022 ambulatory Carmen Conley Other [facility] Other Start: 04-17-2022 Telephone encounter Carmen Conley [facility] Start: 04-16-2022 End: 04-16-2022 ambulatory Carmen Conley Other [facility] Other Start: 04-16-2022 Office outpatient vi sit [...] hospital visit by physician Mri [facility] (Lg Bore/1.5t) Radiology MRI Comment on above: [...] Goode Urinary bladder stru cture (body structure) Shanu Goode Comment on above: 15/20 years ago Plan of Treatment Date Care Activity Detail Author Start: 09-27-2025 Lipid 1996 panel - Serum or Plasma Lipid Screening [facility] Start: 09-27-2025 LIPID SCREEN LIPID SCREEN [facility] Start: 01-08-2024 [facility] Start: 09-28-2023 DIABETES SCREEN DIABETES SCREEN [facility] Start: 09-28-2023 Diabetes Screening Diabetes Screening [facility] Start: 12-07-2022 Influenza vaccination Influenza Vaccine (#1) [facility] Start: 04-08-2022 Advance Directive Discussion Advance Directive Discussion [facility] Start: 04-08-2022 Depression Assessment Depression Assessment [facility] Start: 12-07-2021 Influenza vaccination INFLUENZA (Season Ended) [facility] Start: 09-30-2021 Adult depression screening assessment DEPRESSION SCREENING [facility] Start: 04-08-2021 ADVANCE DIRECTIVE DISCUSSION ADVANCE DIRECTIVE DISCUSSION [facility] Start: 02-17-2020 Pneumococcal Vaccine: 65+ (3 - PPSV23 or PCV20) Pneumococcal Vaccine: 65+ (3 - PPSV23 or PCV20) [facility] Start: 01-07-2016 PNEUMOVAX AGE 65 AND OVER WITH 5YR LOOKBACK (#1) PNEUMOVAX AGE 65 AND OVER WITH 5YR LOOKBACK (#1) [facility] Start: 03-31-2015 SHINGRIX VACCINE (2 of 3) SHINGRIX VACCINE (2 of 3) [facility] Start: 2014 BONE DENSITY BONE DENSITY [facility] Start: 2014 Bone Density Screening Bone Density Screening [facility] Start: 2009 RSV Vaccine (1 - 1-dose 60+ series) RSV Vaccine (1 - 1-dose 60+ series) [facility] Start: 1994 COLOGUARD (FIT-DNA) COLOGUARD (FIT-DNA) [facility] Start: 1994 Colonoscopy COLONOSCOPY [facility] Start: 1994 COLORECTAL CANCER SCREENING COLORECTAL CANCER SCREENING [facility] Start: [address] COLONOGRAPHY [facility] Start: 1994 FECAL OCCULT BLOOD FECAL OCCULT BLOOD [facility] Start: 1994 SIGMOIDOSCOPY SIGMOIDOSCOPY [facility] Start: 1989 Mammography [facility] Start: 1968 HEPATITIS B (1 of 3 - Risk 3-dose series) HEPATITIS B (1 of 3 - Risk 3-dose series) [facility] Start: 1968 Urine microalbumin profile [facility] Start: 08-04-1967 HEPATITIS C SCREENING HEPATITIS C SCREENING [facility] Start: 1954 COVID-19 VACCINE (1) COVID-19 VACCINE (1) [facility] Start: 1950 HEPATITIS A (1 of 2 - Risk 2-dose series) HEPATITIS A (1 of 2 - Risk 2-dose series) [facility] Start: 02-02-1951 Covid-19 Vaccine (#1) Covid-19 Vaccine (#1) [facility] Immunizations Immunization Date Immunization Notes Care Provider Fa cili 12-28-2022 pneumococcal polysaccharide vaccine, 23 valent Carmen Conley Other [facility] Other 12-28-2022 influenza, high dose seasonal, preservative-free Carmen Conley Other [facility] 07-04-2020 COVID-19 Vaccine Moderna - Documentation Purposes Only Carmen Conley Other [facility] 01-07-2020 influenza, high dose seasonal, preservative-free Mehrdad Aguilar MD Work Phone: [facility] 01-07-2020 influenza virus vaccine, unspecified formulation Mri Bore/1.5t) [facility] 11-27-2019 influenza virus vaccine, split virus (incl. purified surface antigen) Carmen Conley Other [facility] 01-06-2019 influenza, high dose seasonal, preservative-free Mehrdad Aguilar MD Work Phone: [facility] 01-01-2019 influenza virus vaccine, split virus (incl. purified surface antigen) Carmen Conley Other [facility] Other 01-01-2019 influenza virus vaccine, unspecified formulation Shaun Goode [facility] 01-01-2019 Seasonal trivalent influenza vaccine, adjuvanted, preservative free Mehrdad Aguliar MD Work Phone: [facility] 01-13-2018 influenza nasal, unspecified formulation Mehrdad Aguilar MD Work Phone: [facility] 12-17-2017 influenza virus vaccine, unspecified formulation Yvetteamaemmy Goode [facility] 12-17-2017 influenza, high dose seasonal, preservative-free Mehrdad Aguilar MD Work Phone: [facility] 02-05-2017 influenza, high dose seasonal, preservative-free Mehrdad Aguilar MD Work Phone: [facility] 04-09-2016 influenza virus vaccine, unspecified formulation Yvetteamaemmy Junitomaximo [facility] 04-09-2016 influenza, injectabl e, quadrivalent, preservative free Mehrdad Aguilar MD Work Phone: [facility] 03-05-2016 influenza, high dose seasonal, preservative-free Mehrdad Aguilar MD Work Phone: [facility] 02-16-2015 influenza, high dose seasonal, preservative-free Mehrdad Aguilar MD Work Phone: [facility] 02-16-2015 pneumococcal conjuga te vaccine, 13 valent Mehrdad Aguilar MD Work Phone: [facility] 02-03-2015 zoster vaccine, live Mehrdad lacey MD Work Phone: [facility] 02-02-2015 influenza, high dose seasonal, preservative-free Mehrdad Aguilar MD Work Phone: [facility] 02-02-2015 pneumococcal conjuga te vaccine, 13 aubrey Aguilar MD Work Phone: [facility] 03-24-2014 influenza, injectabl e, quadrivalent, contains preservative Mehrdad Aguilar MD Work Phone: [facility] 01-06-2013 influenza, high dose seasonal, preservative-free Mehrdad Aguilar MD Work Phone: [facility] 01-06-2011 pneumococcal polysaccharide vaccine, 23 aubrey Aguilar MD Work Phone: [facility] Payers Date Payer Category Payer Self-pay 2020 Private Health Insurance [facility] INDEMNITY [id number] 2020-Present [phone] [address] [place] [address] Indemnity [id number] 2020 Private Health Insurance [id number] 2006 Medicare MEDICARE RAILROA D MEDICARE RAILROAD PB ONLY [id number] 2006-Present [phone] [address] [address] [place] [address] Medicare [id number] 2006 Medicare MEDICARE MEDICAR E A AND B [id number] 2006-Present [phone] [address] [address] [place] [address] Medicare [id number] 2006 Unknown 1959 Medicare [id number] 1959 Private Health Insurance [id number] 2.16.840.1.811773.19 1949 Unknown [id number] 2.16.840.1.136620.3.579. 2.593 1949 Unknown [id number] 2.16.840.1.403332.3.579. 2.593 1949 Unknown [id number] 2.16.840.1.649398.3.579. 2.593 1949 Unknown [id number] 2.16.840.1.884501.3.579. 2.593 1949 Unknown [id number] 2.16.840.1.129680.3.579. 2.593 1949 Unknown [id number] 2.16.840.1.044861.3.579. 2.593 1949 Unknown [id number] 2.16.840.1.079729.3.579. 2.593 1949 Unknown [id number] 2.16.840.1.088382.3.579. 2.593 1949 Unknown [id number] 2.16.840.1.366643.3.579. 2.593 1949 Unknown [id number] 2.16.840.1.315992.3.579. 2.1259 1949 Unknown [id number] 2.16840.1.671434.3.579. 2.1259 1949 Unknown [id number] 2.16.840.1.089395.3.579. 2.727 1949 Unknown [id number] 2.16.840.1.536808.3.579. 2.727 1949 Unknown [id number] 2.16.840.1.976133.3.579. 2.727 1949 Unknown [id number] 2.16.840.1.789810.3.579. 2.727 1949 Unknown [id number] 2.16.840.1.416268.3.579. 2.727 1949 Unknown [id number] 2.16.840.1.830886.3.579. 2.727 1949 Unknown [id number] 2.16.840.1.671883.3.579. 2.727 1949 Unknown [id number] 2.16.840.1.682114.3.579. 2.727 1949 Unknown [id number] 2.16.840.1.970189.3.579. 2.727 1949 Unknown [id number] 2.16.840.1.709899.3.579. 2.727 1949 Unknown [id number] 2.16.840.1.941141.3.579. 2.727 1949 Unknown [id number] 2.16.840.1.789909.3.579. 2.727 1949 Unknown [id number] 2.16.840.1.512584.3.579. 2.196 1949 Unknown [id number] 2.16.840.1.571862.3.579. 2.196 Unknown [id number] 2.16.840.1.146261.3.579. 2.531 Social History Date Type Detail Facility Start: 08-18-2020 End: 10-08-2023 Tobacco smoking status NHIS Never smoked tobacco [facility] Start: 08-18-2020 Tobacco use and exposure Smokeless tobacco non-user [facility] Start: 08-19-2020 End: 09-30-2020 Alcohol intake Ex-drinker (finding) [facility] Start: 1950 Sex Assigned At Not on file [facility] Start: 08-04-2020 End: 08-19-2020 Sex Assigned At [facility] Start: 08-04-2020 End: 08-19-2020 History of Social function [facility] National Score (1-100), lower number is lower risk Not on file [facility] Tobacco smoking status No Smokin g Status Entered [facility] Medical Equipment Procedure Code Equipment Code Equipment Original Text Equi pment Identifier Dates BD Pen Needle Na no U/F 32G X 4 MM Functional Status Date Assessment Result Facility 10-08-2023 Functional Status N/A [facility] 09-05-2023 Functional Status No [facility] 07-24-2023 Functional Status N/A [facility] 07-02-2023 Functional Status N/A [facility] 06-26-2023 Functional Status N/A [facility] 06-21-2023 Functional Status N/A [facility] Clinical Notes 08-19-2020 to 07-03-2023 Note Date & Type Note Facility 07-03-2023 Note [id number] [facility] 07-02-2023 Hospital Discharg e instructions Patient Education 07/02/2023 09:33:43 Endoscopy, Care After Procedure [facility] Endoscopy Care After Procedure Please read the [...] Document Re-Released: 09/16/2006 ExitCare Patient Information 2010 [employer]. 07/02/2023 09:33:36 Esophagitis Esophagitis Esophagitis is inflammation [...] Follow these instructions at home: Medicines Take dfuk-ivf-vpvxtht and prescription medicines only as told by [...] powder, vinegar, hot sauces, and barbecue sauce. ?[place] fruit juices and citrus fruits, such as oranges, bentley, and limes. ?Tomato-based foods, such as red sauce, chili, salsa, and pizza with red sauce. ?Fried and fatty foods, such as donuts, korean fries, potato chips, and high-fat dressings. ?High-fat [...] provider. Document Revised: 10/03/2020 Document Reviewed: 10/03/2020 [employer] Patient Education 2022 [employer] 07/02/2023 09:33:31 Hiatal Hernia Hiatal Hernia [...] reduce GERD symptoms. Medicines. These may include: ?Jxry-umy-qssdrur antacids. ?Medicines that make your stomach empty [...] may include: ?Fatty foods, like fried foods. ?[place] fruits, like oranges or lemon. ?Other foods [...] Do not drink alcohol. General instructions Take waxi-jjq-pnekpbf and prescription medicines only as told by [...] provider. Document Revised: 05/22/2022 Document Reviewed: 05/22/2022 [employer] Patient Education 2022 [employer]. Follow Up Care 06/26/2023 13:24:26 With:Rupa CERRATO, ANTIONETTE Luna, [facility] Address: When: Unknown Comments:Call for any problems. The office will reach out in about one week from procedure date. [facility] 07-02-2023 Note Endoscopy Care After Procedure [...] Document Re-Released: 09/16/2006 ExitCare? Patient Information ?2009 [employer]. Gastroenterology Esophagitis Esophagitis is inflammation of the [...] these instructions at home: Medicines ? Take gueb-epo-swmorhl and prescription medicines only as told by your health care provider. ? Do not take aspirin, ibuprofen, or other NSAIDs unless your health care provider told you to do so. ? If you have trouble taking pills: ? Use a pill splitter to decrease the size of the pi (more content not included)... [facility] 06-18-2023 Note Echocardiology Procedure Exam Date/Time Accession # Ordering Echo Transthoracic 06/18/2023 08:41 EDT [id number] CARMEN CONLEY MD Complete CPT code 53903 [id number] Reason for Exam (Echo Transthoracic Complete) R07.9 Chest pain, unspecified Report [facility] [address] [place] [address] Adult Echocardiogram Report Name: IVELISSE GEE Study Date: 06/18/2023 06:57 AM BP: 117/66 mmHg Patient Location: [facility] HR: 71 : 1950 Gender: Female Height: 60 in Age: 72 yrs Ethnicity: [facility] Weight: 155 lb Reason For Study: R07.9 Chest pain, unspecified BSA: 1.7 m2 History: HTN, DM, I have a leaky valve Ordering Physician: CARMEN CONLEY Referring Physician: CARMEN CONLEY Performed By: Katya Ho, [facility] Interpretation Summary No comparison study is available. [...] Signed by: Lucho GOINS MD Transcribed by: [facility] Technologist: LE [facility] 05-14-2023 Evaluation note Encounter Date Diagnosis Assessment Notes May, Type 2 diabetes mellitus with hyperglycemia (ICD-10 - E11.65) [facility] 12-27-2023 Evaluation note* Encounter Date Diagnosis Assessment Notes Treatment Notes Treatment Clinical Notes Mar, Type 2 diabetes mellitus with hyperglycemia (ICD-10 - E11.65) [facility] 12-26-2023 Evaluation note* Encounter Date Diagnosis Assessment Notes Treatment Notes Treatment Clinical Notes Mar, Type 2 diabetes mellitus with hyperglycemia (ICD-10 - E11.65) [facility] 12-14-2023 Evaluation note* Encounter Date Diagnosis Assessment Notes Treatment Notes Treatment Clinical Notes Mar, Panic attack (ICD-10 - F41.0) [facility] 12-14-2023 Evaluation note* Encounter Date Diagnosis [...] to continue with above medication as directed. [facility] 10-19-2023 Evaluation note* Encounter Date Diagnosis [...] normal chest x-ray on January 17 at [facility]. [facility] Other 09-22-2023 Evaluation note* Encounter Date Diagnosis [...] patient is sent home pleased, without concerns. [facility] 06-29-2023 Evaluation note* Encounter Date Diagnosis Assessment Notes Treatment Notes Treatment Clinical Notes Sep, Type 2 diabetes mellitus with hyperglycemia (ICD-10 - E11.65) [facility] 05-03-2023 Evaluation note* Encounter Date Diagnosis Assessment Notes Treatment Notes Treatment Clinical Notes August, RLQ abdominal pain (ICD-10 - R10.31) [facility] 05-02-2023 Evaluation note* Encounter Date Diagnosis Assessment Notes Treatment Notes Treatment Clinical Notes August, RLQ abdominal pain (ICD-10 - R10.31) Acute pain - assess with labs, CT. Discussed differential with pt. [facility] 03-15-2023 Evaluation note* Encounter Date Diagnosis [...] as her information was sent last week. [facility] 03-07-2023 Evaluation note* Encounter Date Diagnosis Assessment Notes Treatment Notes Treatment Clinical Notes Jun, Dysuria (ICD-10 - R30.0) Jun, Type 2 diabetes mellitus with hyperglycemia (ICD-10 - E11.65) Jun, History of sepsis (ICD-10 - Z86.19) Referral placed to [facility] as was suggested by Dr. William. [facility] 03-07-2023 Evaluation note* Encounter Date Diagnosis Assessment Notes Treatment Notes Treatment Clinical Notes Jun, Dysuria (ICD-10 - R30.0) Jun, Type 2 diabetes mellitus with hyperglycemia (ICD-10 - E11.65) Stop Januvia. Start ozempic for improved glucose control. Jun, History of sepsis (ICD-10 - Z86.19) Referral placed to [facility] as was suggested by Dr. William. [facility] 02-02-2023 Evaluation note* Encounter Date Diagnosis Assessment Notes Treatment Notes Treatment Clinical Notes May, EDU (generalized anxiety disorder) (ICD-10 - F41.1) [facility] 02-02-2023 Evaluation note* Encounter Date Diagnosis Assessment Notes Treatment Notes Treatment Clinical Notes May, Panic attack (ICD-10 - F41.0) Discussed stress, medication and health issues. Will refill med started by ER and monitor symptoms. May, Type 2 diabetes mellitus with hyperglycemia (ICD-10 - E11.65) add medication to improve glucose. Pt agrees to consider further referral if needed. [facility] 01-13-2023 Evaluation note* Encounter Date Diagnosis [...] antibiotic tomorrow, will check that it cleared. [facility] 01-09-2023 Evaluation note* Encounter Date Diagnosis Assessment Notes Treatment Notes Treatment Clinical Notes Apr, Sepsis due to Staphylococcus (ICD-10 - A41.2) Ivelisse feels that the oral antibiotics are not strong enough. Unsure of root cause of staph sepsis/bacteremia . Admitted to [place] for <24h. Requests referral to ID. Pt concerned that she has immune deficiency or Hep C that she has been septic in the past. Apr, Type 2 diabetes mellitus with hyperglycemia (ICD-10 - E11.65) will continue to hold metformin due to renal labs. Apr, Elevated liver enzymes (ICD-10 - R74.8) Has been to GI in the past [facility] 01-05-2023 NotePROGRESS NOTE NOTE DATE: 04/12/2022 [...] prophylaxis: Lovenox. DISPOSITION: Home when medically stable.[id number] Note PROCEDURE: XR WRIST RT MIN 3 V, XR FOREARM RT 2V COMPARISON: HISTORY: Pain of right wrist FINDINGS: BONES:No acute fracture or dislocation of the forearm or wrist. I'll degenerative changes with joint space narrowing. SOFT TISSUES:Negative. No visible soft tissue swelling. EFFUSION:None visible. OTHER: Negative. IMPRESSION: Mild degenerative changes No acute abnormality Electronically authenticated by: HAYLEY PARHAM Date: 2022-01-07 11:23[facility]10-02-2022 NotePROCEDURE: XR WRIST RT MIN 3 V, XR FOREARM RT 2V COMPARISON: HISTORY: Pain of right wrist FINDINGS: BONES:No acute fracture or dislocation of the forearm or wrist. I'll degenerative changes with joint space narrowing. SOFT TISSUES:Negative. No visible soft tissue swelling. EFFUSION:None visible. OTHER: Negative. IMPRESSION: Mild degenerative changes No acute abnormality Electronically authenticated by: HAYLEY PARHAM Date: 2022-01-07 11:23[facility]05-06-2022 Miscellaneous Notes* Telephone Encounter - Marta Valero - 08/11/2021 12:13 PM EDT Called patient to reschedule an appointment per patient she no longer see Dr. Aguilar and that she had cancelled appointments last year confirmed with patient that she would like to cancel and did notneed to reschedule. [facility] NoteHNO ID: [id number] Author: Mehrdad Aguilar MD Service: ? Author Type: Physician Type: Progress Notes Filed: 10/02/2020 5:36 PM Note Text: PATIENT NAME: Ivelisse Gee DATE: 09/30/2020 PRIMARY CARE PHYSICIAN: Carmen Conley MD OTHER PHYSICIANS: Dr. Wahl ([place], [place]), Dr. Magdaleno Castillo ([facility]) Portions of this encounter note have [...] extremities and face. Negative (more content not included)...[facility]06-16-2021 NoteHNO ID: [id number] Author: RT Nancie(R) Service: ? Author Type: J2Ee Application Developer Type: Progress Notes Filed: 09/21/2020 11:30 AM [...] Gee DATE: September 21, 2020 TIME: 11:28 [facility]06-16-2021 NoteHNO ID: [id number] Author: RT Nancie(Bushra) Service: ? Author Type: J2Ee Application Developer Type: Progress Notes Filed: 09/21/2020 11:26 AM [...] Gee DATE: September 21, 2020 TIME: 11:18 [facility]05-25-2021 NoteHNO ID: [id number] Author: RT Akhil(Bushra) Service: ? Author Type: J[employer]Ee Application Developer Type: Progress Notes Filed: 08/30/2020 11:31 AM [...] BY: RT Akhil(R) August 30, 2020 11:30 [facility]05-14-2021 NoteHNO ID: [id number] Author: Mehrdad Aguilar MD Service: ? Author Type: Physician Type: Progress Notes Filed: 08/20/2020 1:40 PM Note Text: PATIENT NAME: Ivelisse Gee DATE: 08/19/2020 PRIMARY CARE PHYSICIAN: Carmen Conley MD OTHER PHYSICIANS: Dr. Wahl ((PCP [place], [place]) HPI: This is a 70 year [...] requiring hospitalization, most recently while residing in [place] in June 2020. During her recent hospitalization labs revealed persistent thrombocytopenia with a platelet count ranging from 80-90,000. The patient is currently referred for evaluation of her abnormal CBC. Since the patient's hospitalization she started xpoc-fgu-[id number] supplements including multivitamin. She has had no [...] EXAM: Well developed/well n (more content not included)...[facility] Future Appointments Appointment Date:06/21/2023 01:30:00 PM Scheduled Provider:Deonte Peraza MD [facility] [place] App[facility] Type:Cardiology New Patient (FT) Appointment Date:06/26/2023 12:30:00 PM Scheduled Provider:Shaun Goode MD Location:[facility] Appointment Type:[facility] Future Appointments Appointment Date:06/26/2023 12:30:00 PM Scheduled Provider:Shaun Goode MD Location:[facility] Appointment Type:[facility] New Patient Appointment Date:08/22/2023 02:00:00 PM Scheduled Provider:Deonte Peraza MD [facility] Type:Cardiology Follow Up (FT) Future Scheduled Tests Radiology* NM Myocardial Spect Rest/Stress 1 Day 06/21/23 [facility] Future Appointments Appointment Date:07/02/2023 09:45:00 AM Scheduled Provider: Location:[facility] Appointment Type:Surgery FT Appointment Date:08/22/2023 02:00:00 PM Scheduled Provider:Deonte Peraza MD [facility] Type:Cardiology Follow Up (FT) Future Scheduled Tests Radiology* NM Myocardial Spect Rest/Stress 1 Day 06/21/23 [facility] Dig[facility] Evaluation + Plan note Future Appointments Appointment Date:07/02/2023 09:45:00 AM Scheduled Provider: Location:[facility] Appointment Type:Surgery FT Appointment Date:08/22/2023 02:00:00 PM Scheduled Provider:Deonte Peraza MD [facility] Type:Cardiology Follow Up (FT) Diagnostic Tests Pending * Alpha Fetoprotein Tumor Marker 06/26/23 Future Scheduled Tests Radiology* NM Myocardial Spect Rest/Stress 1 Day 06/21/23 [facility] Future Appointments Appointment Date:08/22/2023 02:00:00 PM Scheduled Provider:Deonte Peraza MD [facility] Type:Cardiology Follow Up (FT) Future Scheduled Tests Radiology* NM Myocardial Spect Rest/Stress 1 Day 06/21/23 [facility] Future Appointments Appointment Date:08/05/2023 08:00:00 AM Scheduled Provider: [facility] Appoint[facility] Type:NM Myocard Spect Multi Rest/Stress-Res Appointment Date:08/05/2023 09:00:00 AM Scheduled Provider: [facility] Appointment Type:NM Myocard Spect Multi Rest/Stress - R Appointment Date:08/05/2023 09:30:00 AM Scheduled Provider: [facility] Appointment Type:NM Myocard Spect Multi Rest/Stress-Str Appointment Date:08/05/2023 10:30:00 AM Scheduled Provider: [facility] Appointment Type:NM Myocar Spect Multi Rest/Stress - St Appointment Date:08/05/2023 11:00:00 AM Scheduled Provider: [facility] Type:CV Holter/Event (FT) Appointment Date:08/06/2023 10:30:00 AM Scheduled Provider: [facility] Appointment Type:US Abdominal/Pelvis (FT) Appointment Date:08/22/2023 02:00:00 PM Scheduled Provider:Deonte Peraza MD [facility] Type:Cardiology Follow Up (FT) Appointment Date:01/08/2024 12:15:00 PM Scheduled Provider:Shaun Goode MD Location:[facility] Dig[facility]ive Health Appointment Type:[facility] Follow Up Future Scheduled Tests Laboratory* Alpha Fetoprotein Tumor Marker 07/24/23 * Alpha Fetoprotein Tumor Marker 01/23/24 * CBC w/ Auto Diff 07/24/23 * CBC w/ Auto Diff 01/23/24 * Comprehensive Metabolic Panel 07/24/23 * Comprehensive Metabolic Panel 01/23/24 * PT 07/24/23 * PT 01/23/24 Radiology* NM Myocardial Spect Rest/Stress 1 Day 08/05/23 * US Liver 08/06/23 [facility] Dig[facility] Evaluation + Plan note Future Appointments Appointment Date:08/15/2023 09:00:00 AM Scheduled Provider: [facility] Appointment Type:NM Myocard Spect Multi Rest/Stress-Res Appointment Date:08/15/2023 10:00:00 AM Scheduled Provider: [facility] Appointment Type:NM Myocard Spect Multi Rest/Stress - R Appointment Date:08/15/2023 10:30:00 AM Scheduled Provider: [facility] Appointment Type:NM Myocard Spect Multi Rest/Stress-Str Appointment Date:08/15/2023 11:30:00 AM Scheduled Provider: [facility] Appointment Type:NM Myocar Spect Multi Rest/Stress - St Appointment Date:08/27/2023 01:00:00 PM Scheduled Provider:Dontae Hernández PA-C [facility] Type:Cardiology Follow Up (FT) Appointment Date:01/08/2024 12:15:00 PM Scheduled Provider:Shaun Goode MD Location:[facility] Digestive Health Appointment Type:BAD Follow Up Future Scheduled Tests Laboratory* Alpha Fetoprotein Tumor Marker 07/24/23 * Alpha Fetoprotein Tumor Marker 01/23/24 * CBC w/ Auto Diff 07/24/23 * CBC w/ Auto Diff 01/23/24 * Comprehensive Metabolic Panel 07/24/23 * Comprehensive Metabolic Panel 01/23/24 * PT 07/24/23 * PT 01/23/24 Radiology* NM Myocardial Spect Rest/Stress 1 Day 08/15/23 * US Liver 08/16/23 [facility] Future Appointments Appointment Date:08/27/2023 01:00:00 PM Scheduled Provider:Dontae Hernández PA-C Location:.[facility]iology Clinic Appointment Type:Cardiology Follow Up (FT) Appointment Date:01/08/2024 12:15:00 PM Scheduled Provider:Shaun Goode MD Location:[facility] Appointment Type:BAD Follow Up Future Scheduled Tests Laboratory* Alpha Fetoprotein Tumor Marker 07/24/23 * Alpha Fetoprotein Tumor Marker 01/23/24 * CBC w/ Auto Diff 07/24/23 * CBC w/ Auto Diff 01/23/24 * Comprehensive Metabolic Panel 07/24/23 * Comprehensive Metabolic Panel 01/23/24 * PT 07/24/23 * PT 01/23/24 Radiology* US Liver 08/16/23 [facility] Future Appointments Appointment Date:10/08/2023 01:45:00 PM Scheduled Provider:Dontae Hernández PA-C Location:.[facility]iology Clinic Appointment Type:Cardiology Follow Up (FT) Appointment Date:01/08/2024 12:15:00 PM Scheduled Provider:Shaun Goode MD Location:[facility] Appointment Type:[facility] Follow Up Future Scheduled Tests Laboratory* Alpha Fetoprotein Tumor Marker 07/24/23 * Alpha Fetoprotein Tumor Marker 01/23/24 * CBC w/ Auto Diff 07/24/23 * CBC w/ Auto Diff 01/23/24 * Comprehensive Metabolic Panel 07/24/23 * Comprehensive Metabolic Panel 01/23/24 * PT 07/24/23 * PT 01/23/24 Radiology* NM Myocardial Spect Rest/Stress 1 Day 09/06/23 * US Liver 08/16/23 [facility] Future Appointments Appointment Date:10/08/2023 01:45:00 PM Scheduled Provider:Dontae Hernández PA-C [facility] Type:Cardiology Follow Up (FT) Appointment Date:01/08/2024 12:15:00 PM Scheduled Provider:Shaun Goode MD Location:[facility] Appointment Type:[facility] Follow Up Future Scheduled Tests Laboratory* Alpha Fetoprotein Tumor Marker 07/24/23 * Alpha Fetoprotein Tumor Marker 01/23/24 * CBC w/ Auto Diff 07/24/23 * CBC w/ Auto Diff 01/23/24 * Comprehensive Metabolic Panel 07/24/23 * Comprehensive Metabolic Panel 01/23/24 * PT 07/24/23 * PT 01/23/24 Radiology* US Liver 08/16/23 [facility] Future Appointments Appointment Date:01/08/2024 12:15:00 PM Scheduled Provider:Shaun Goode MD Location:[facility] Digestive [facility] Appointment Type:[facility] Follow Up Appointment Date:04/14/2024 01:00:00 PM Scheduled Provider:Dontae Hernández PA-C [facility] Type:Cardiology Follow Up (FT) Future Scheduled Tests Laboratory* Alpha Fetoprotein Tumor Marker 07/24/23 * Alpha Fetoprotein Tumor Marker 01/23/24 * CBC w/ Auto Diff 07/24/23 * CBC w/ Auto Diff 01/23/24 * Comprehensive Metabolic Panel 07/24/23 * Comprehensive Metabolic Panel 01/23/24 * PT 07/24/23 * PT 01/23/24 Radiology* US Liver 08/16/23 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 documented in this encounter [facility] general Narrative - Reported* Type [...] History septic shock Hospitalization History Sepsis 07/07/2020 [facility] Other history general Narrative - Reported* Type [...] History septic shock Hospitalization History Sepsis 07/07/2020 [facility] history general Narrative - Reported* Type [...] Sepsis 07/07/2020 Hospitalization History Covid positive 01/17/23 [facility] Hospital course Narrative No data available for this section [facility] No data available for this section [facility] No data available for this section [facility] Summary Purpose Family History No Family [...] Callahan - will scan in reports from [facility] last week Diagnosis 1 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 [place],[address] Referred Provider Specialty Infectious D isease Referral Priority Routine General Notes Itzel Parekh 03:10:38 PM >received today, labs, and notes attached, locked and faxed P2P Itzel Parekh 04/18/2022 10:54:24 AM >per Dr. Callahan pt does not need to be seen to treat Reason 06/11/22 Labs pend ing, has fibro. strong family history of autoimmune issues. Diagnosis 1 Myalgia (M79.10) Referral Organization [facility] Referring Provider First Name Carmen Referring Provider Last Name Yael Referring Provider Specialty Family Medi cine Referred Organization [facility] Referred Provider Daniel Gomez Referred Address [address] [place],[address] Referred Provider Specialty Rheumatology Referral Priority Routine [...] in [facility] - phone is [phone]. Please send same info that was sent to the referral for Dr. Gomez. Thanks Diagnosis 1 Dysuria (R30.0) [facility] Referring Provider First Name Carmen Referring Provider Last Name Yael Referring Provider [facility] Referred Organization Unknown Facility Referred Provider Specialty Immunology Referral Priority Routine Referral Appointment Date 2022-06-28 General Notes Itzel Parekh 11:00:51 AM >received today, attachments made, notes locked, referral faxed Itzel Parekh 06/20/2022 01:01:04 PM >faxed first attempt letter Itzel Parekh 06/21/2022 08:59:47 AM >RECEIVED FAX WITH APPT DATE AND TIME Clinical Notes p: [phone] f: [phone] Reason 06/28/22 Pt wants to see the [employer] in [facility] - phone is [phone]. Please send same info that was sent to the referral for Dr. Gomez. Thanks Diagnosis 1 Dysuria (R30.0) Referral Organization [facility] Referring Provider First Name Carmen Referring Provider Last Name Yael Referring Provider Specialty [facility] Referred Organization Unknown Facility Referred Provider Specialty [...] for review. Closing referral Clinical Notes p: [phone] f: [phone] Additional Source Comments INFORMATION SOURCE (unrecogn ized section and content) DATE CREATED AUTHOR 02/05/2021 [facility] DATE CREATED AUTHOR AUTHOR'S ORGANIZ ATION 08/12/2021 [facility] DATE CREATED AUTHOR AUTHOR'S ORGANIZ ATION 07/28/2022 [facility] DATE CREATED AUTHOR AUTHOR'S ORGANIZ ATION 08/16/2022 [facility] DATE CREATED AUTHOR AUTHOR'S ORGANIZ ATION 04/17/2023 [facility] EPIC DATE CREATED AUTHOR AUTHOR'S ORGANIZ ATION 10/09/2023 [facility] DATE CREATED AUTHOR AUTHOR'S ORGANIZ ATION 12/07/2023 [facility] Source Comments (unrecognize d section and content) In the event this informatio n is protected by the Federal Confidentiality of Alcohol and Drug Abuse Patient Records regulations: The Federal rules restrict any use of the information to criminally investigate or prosecute any alcohol or drug abuse patient.[facility] Center[facility] the event this information is protected by the Federal Confidentiality of Alcohol and Drug Abuse Patient Records regulations: The Federal rules restrict any use of the information to criminally investigate or prosecute any alcohol or drug abuse patient.[facility] Reason for Visit (unrecogniz ed section and content) Reason Comments Appointment Care Teams (unrecognized sec tion and content) Director [employer]othermal Operations Relationship Specialty Start Date End Date Carmen Conley MD [address] [place] [address] PCP - General Family Practice 08/04/20 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 [facility] [employer] [facility]. provides no warranty or guarantee of the accuracy or completeness of information in this document.
[2023-12-21 21:26] LABS: Glucometer 166 mg/dL (74-106)
--- NOTE | 2023-12-21 21:51 | XR_ITS ---
The [address] [address] Patient Name: EDWARD GEE MRN: [id number] date: 1950 Sex: F Assigned Patient Location: ER Current Patient Location: ER Accession/Order Number: [id number] Exam Date: 12/21/2023 22:44 Report Date: 12/21/2023 23:59 At the request of: NAZ MARTINEZ Procedure: XR chest 1V EXAMINATION: XR chest 1V, , 12/21/2023 10:44 PM EDT INDICATION: SOB HISTORY: Ordering Provider Reason for Exam: SOB Technologist Note: Additional: COMPARISON: Chest x-ray of 05/25/2023. TECHNIQUE: Chest x-ray: One view. FINDINGS: No pneumothorax, pleural effusion or focal airspace consolidation. Heart is normal in size. Bony thorax is unremarkable. XR/XR chest 1V IMPRESSION: No acute cardiopulmonary process. Electronically authenticated by: JACKSON LOERA Date: 12/21/2023 23:59
--- NOTE | 2023-12-21 21:51 | ECG_ITS ---
The [facility] Test Date: 2023-12-21 Pat Name: EDWARD GEE Department: Room: - Gender: Female Para Professional: : 1950 Requested By: [id number] Order Number: [id number] Reading MD: CHRISTIAN WHITE Measurements Intervals Hulbert Rate: 86 P: 43 [place]: 130 QRS: 46 QRSD: 76 T: 40 QT: 358 QTc: 402 Interpretive Statements 1100 Sinus rhythm 7300 Indeterminate axis 8102 Low QRS voltage in chest leads 9120 atypical ECG Electronically Signed On 12-22-2023 7:37:17 EDT by CHRISTIAN WHITE
--- NOTE | 2023-12-21 21:51 | CT_ITS ---
The [address] [address] Patient Name: EDWARD GEE MRN: [id number] date: 1950 Sex: F Assigned Patient Location: ER Current Patient Location: ER Accession/Order Number: [id number] Exam Date: 12/21/2023 22:51 Report Date: 12/22/2023 00:07 At the request of: NAZ MARTINEZ Procedure: CT abdomen pelvis w con EXAM: CT abdomen pelvis w con HISTORY: abd pain COMPARISON: None. TECHNIQUE: Multiple axial images of the abdomen and pelvis are obtained following the administration of IV contrast material. Coronal and sagittal reformatted sequences are submitted for review. FINDINGS: The lung bases appear clear. The heart size is normal. Left hepatic dome is not included on this examination. The liver is otherwise unremarkable. Patient is post cholecystectomy. Surgical clips are seen in the gallbladder fossa. The spleen, pancreas and bilateral adrenal glands appear unremarkable. Multiple low densities are seen in the kidneys bilaterally, which can be better evaluated with MR imaging, but which CT appearance can be seen with cystic structures. Bilateral kidneys otherwise demonstrate normal size, morphology and contrast enhancement. There is no evidence for hydronephrosis bilaterally. The urinary bladder appears unremarkable. Nonobstructive bowel pattern is seen. The appendix is not identified. No abnormal pericecal inflammatory changes are seen. Large volume of stool is seen throughout the colon. No significant bowel wall thickening is seen. Mild aortic and iliac arterial calcification is seen without aneurysmal dilatation. No significant free fluid or abnormal fluid collection is seen in the abdomen and pelvis. The visualized soft tissues appear unremarkable. No destructive osseous lesion is seen. CT/CT abdomen pelvis w con IMPRESSION: Large volume of stool seen in the colon. Electronically authenticated by: JACKSON LOERA Date: 12/22/2023 00:07
--- NOTE | 2023-12-21 21:52 | ED.GENADUL1 ---
HPI HPI - General Adult General Chief complaint: Shortness of Breath/Dyspnea Stated complaint: DIFF BREATHING, IN HERE LAST NIGHT Time Seen by Provider: 12/21/23 21:43 Source: patient Mode of arrival: Wheelchair History of Present Illness HPI narrative: 73-year-old female presents to the emergency department for multiple vague issues. The main issue seems to be that she has not had a bowel movement in 7 days. She was seen here few days ago but apparently did not mention it. She also complains of some shortness of breath. She was seen here for that issue and had an extensive workup and was sent home on some steroids and an antibiotic. She is a poor historian. No history of fever. Related Data Home Medications ?Medication ?Instructions ?Recorded ?Confirmed benazepril 20 mg tablet 20 mg PO DAILY 01/17/23 12/19/23 citalopram 40 mg tablet (Celexa) 40 mg PO DAILY 01/17/23 12/19/23 levothyroxine 50 mcg tablet 50 mcg PO DAILY 01/17/23 12/19/23 (Euthyrox) trazodone 50 mg tablet 50 mg PO DAILY 01/17/23 12/19/23 atorvastatin 10 mg tablet 10 mg PO QPM 05/25/23 12/19/23 lorazepam 0.5 mg tablet (Ativan) 0.25 mg PO DAILY PRN anxiety 10/28/23 12/19/23 metoprolol tartrate 25 mg tablet 25 mg PO DAILY 10/28/23 12/19/23 pantoprazole 40 mg tablet,delayed 40 mg PO DAILY 10/28/23 12/19/23 release tizanidine 4 mg capsule 4 mg PO DAILY 10/28/23 12/19/23 diphenhydramine HCl 25 mg tablet 25 mg PO Q8H 12/16/23 12/16/23 (Allergy Medicine) Previous Rx's ?Medication ?Instructions ?Recorded cephalexin 500 mg capsule 500 mg PO BID 10 days #20 caps 12/19/23 Allergies Allergy/AdvReac Type Severity Reaction Status Date / Time adhesive tape Allergy Unknown Rash Verified 12/19/23 19:08 Sulfa (Sulfonamide Allergy Unknown Rash Verified 12/19/23 19:08 Antibiotics) Opioid HPI Opioid Management Most Recent Opioid Data: Last Pain Scale 3 12/16/23 09:32 Review of Systems ROS Narrative Not obtainable, poor historian PFSH PFSH Medical History (Updated 12/22/23 @ 01:33 by Bassam Kumar MD) Sjogren syndrome ?M35.00 - Sjogren syndrome, unspecified (ICD-10) Hypothyroidism ?E03.9 - Hypothyroidism, unspecified (ICD-10) Low back pain ?M54.50 - Low back pain, unspecified (ICD-10) High cholesterol ?E78.00 - Pure hypercholesterolemia, unspecified (ICD-10) Cystocele with rectocele ?N81.10 - Cystocele, unspecified (ICD-10) ?N81.6 - Rectocele (ICD-10) Rheumatoid arthritis ?M06.9 - Rheumatoid arthritis, unspecified (ICD-10) Fibromyalgia ?M79.7 - Fibromyalgia (ICD-10) Anxiety ?F41.9 - Anxiety disorder, unspecified (ICD-10) Acid reflux ?K21.9 - Gastro-esophageal reflux disease without esophagitis (ICD-10) Diabetes ?E11.9 - Type 2 diabetes mellitus without complications (ICD-10) Cirrhosis of liver ?K74.60 - Unspecified cirrhosis of liver (ICD-10) High blood pressure ?I10 - Essential (primary) hypertension (ICD-10) Irregular heart beat ?I49.9 - Cardiac arrhythmia, unspecified (ICD-10) Surgical History (Updated 12/03/23 @ 16:30 by Lyric Feliciano) H/O bladder repair surgery ?Z98.890 - Other specified postprocedural states (ICD-10) History of cholecystectomy ?Z90.49 - Acquired absence of other specified parts of digestive tract (ICD-10) H/O: hysterectomy ?Z90.710 - Acquired absence of both cervix and uterus (ICD-10) H/O arthroscopy of shoulder ?Z98.890 - Other specified postprocedural states (ICD-10) History of tonsillectomy and adenoidectomy ?Z90.89 - Acquired absence of other organs (ICD-10) Social History Smoking status: Never smoker Little interest or pleasure in doing things: not at all Feeling down, depressed, or hopeless: not at all Exam Narrative Exam Narrative: Nurses note and vital signs reviewed and patient is not hypoxic. General: The patient appears anxious but in no acute respiratory distress Skin: Warm, dry, no pallor noted. There is no rash noted. Head: Normocephalic, atraumatic Eye: Normal conjunctiva, no drainage Ears, Nose, Mouth, and Throat: oral mucosa is moist. Nares patent. Cardiovascular: Regular Rate and Rhythm Respiratory: Patient is in no distress, no accessory muscle use, lungs are clear to auscultation, no wheezing, rales or rhonchi Back: non-tender GI: Mild tenderness present. Bowel sounds are hyperactive and slightly high-pitched Musculoskeletal: The patient has no evidence of calf tenderness, no pitting edema, symmetrical pulses noted bilaterally Neurological: Awake and alert Psychiatric: Cooperative, appears anxious Constitutional Vital Signs, click to edit/add: Last Vital Signs Temp 97.5 F L 12/21/23 21:16 Pulse 83 12/21/23 22:30 Resp 23 H 12/21/23 22:30 BP 151/88 H 12/22/23 00:30 Pulse Ox 96 12/22/23 00:30 Course Vital Signs Vital signs: Vital Signs Temperature 97.5 F L 12/21/23 21:16 Pulse Rate 101 H 12/21/23 21:16 Respiratory Rate 22 H 12/21/23 21:16 Blood Pressure 160/90 H 12/21/23 21:16 Pulse Oximetry 99 12/21/23 21:16 Temperature 97.5 F L 12/21/23 21:16 Pulse Rate 83 12/21/23 22:30 Respiratory Rate 23 H 12/21/23 22:30 Blood Pressure 151/88 H 12/22/23 00:30 Pulse Oximetry 96 12/22/23 00:30 Medical Decision Making MDM Narrative Medical decision making narrative: Her workup is negative except for constipation as noted on the CAT scan. She was given IV Ativan and feels very much better now. Findings are discussed thoroughly with the patient and her and she is able to be discharged home and was recommended MiraLAX for constipation. Follow-up with PCP. Treatment diagnosis and follow-up were discussed thoroughly. Differential Diagnosis Differential Diagnosis: Constipation, anxiety, dehydration, pneumonia Lab Data Lab results reviewed: Yes I reviewed the patient's lab results Labs: Lab Results 12/21/23 12/21/23 Range/Units 21:25 21:59 WBC 17.1 H (4.0-11.0) 10^3/uL RBC 4.74 (4.20-5.40) 10^6/uL Hgb 15.1 (12.0-16.0) g/dL Hct 43.0 (36.0-48.0) % MCV 90.7 (81.0-99.0) fL MCH 31.9 (26.7-34.0) pg MCHC 35.1 (29.9-35.2) g/dL RDW 12.2 (11.0-15.0) % Plt Count 219 (150-450) 10^3/uL MPV 9.3 L (9.5-13.5) fL Seg Neuts % (Manual) 50.0 (43.0-75.0) Lymphocytes % (Manual) 48.0 (20.5-60.0) % Monocytes % (Manual) 1.0 L (1.7-12.0) % Eosinophils % (Manual) 1.0 (0.9-7.0) % Basophils % (Manual) 0.0 L (0.2-2.0) % Neutrophils # (Manual) 8.55 H (1.4-6.5) 10^3/uL Lymphocytes # (Manual) 8.20 H (1.20-3.80) 10^3/uL Monocytes # (Manual) 0.17 L (0.30-0.80) 10^3/uL Eosinophils # (Manual) 0.17 (0.00-0.70) 10^3/uL Basophils # (Manual) 0.00 (0.00-0.10) 10^3/uL Sodium 135 L (136-145) mmol/L Potassium 3.8 (3.5-5.1) mmol/L Chloride 97 L (98-107) mmol/L Carbon Dioxide 26.1 (21.0-32.0) mmol/L Anion Gap 15.7 BUN 23.0 H (7.0-18.0) mg/dL Creatinine 1.07 H (0.55-1.02) mg/dL Est GFR ( Amer) >60 (>=60) Est GFR (Non-Af Amer) 50 L (>=60) BUN/Creatinine Ratio 21.5 Glucose 166 H (74-106) mg/dL Calcium 9.4 (8.5-10.1) mg/dL Total Bilirubin 0.8 (0.2-1.0) mg/dL Direct Bilirubin 0.2 (0.0-0.2) mg/dL AST 18 (15-37) U/L ALT 41 (14-59) U/L Alkaline Phosphatase 95 (46-116) U/L Total Protein 8.3 H (6.4-8.2) g/dL Albumin 4.2 (3.4-5.0) g/dL Globulin 4.1 g/dL Albumin/Globulin Ratio 1.0 Amylase 48 (25-115) U/L Lipase 96.0 H (16.0-77.0) U/L POC Glucose 166 H (74-106) mg/dL Imaging Data Chest x-ray: Radiologist's impression: ITS Impressions Abdomen/Pelvis CT 12/21/23 21:51 IMPRESSION: Large volume of stool seen in the colon. Electronically authenticated by: JACKSON LOERA Date: 12/22/2023 00:07 Chest X-Ray 12/21/23 21:51 IMPRESSION: No acute cardiopulmonary process. Electronically authenticated by: JACKSON LOERA Date: 12/21/2023 23:59 ECG Data Attestation: I personally reviewed and interpreted this ECG as follows: (EKG on my interpretation shows sinus rhythm with a rate of 86 and no acute change) Discharge Plan Discharge Chief Complaint: Shortness of Breath/Dyspnea Clinical Impression: Anxiety, Constipation Patient Disposition: Home, Self-Care Time of Disposition Decision: 01:32 Condition: Good Mode of Transportation: Private Vehicle Prescriptions / Home Meds: No Action lorazepam [Ativan] 0.5 mg tablet 0.25 mg PO DAILY PRN (Reason: anxiety) tizanidine 4 mg capsule 4 mg PO DAILY metoprolol tartrate 25 mg tablet 25 mg PO DAILY pantoprazole 40 mg tablet,delayed release (DR/EC) 40 mg PO DAILY diphenhydramine HCl [Allergy Medicine] 25 mg tablet 25 mg PO Q8H cephalexin 500 mg capsule 500 mg PO BID 10 Days Qty: 20 0RF trazodone 50 mg tablet 50 mg PO DAILY benazepril 20 mg tablet 20 mg PO DAILY citalopram [Celexa] 40 mg tablet 40 mg PO DAILY levothyroxine [Euthyrox] 50 mcg tablet 50 mcg PO DAILY atorvastatin 10 mg tablet 10 mg PO QPM Print Language: [place] Instructions: Constipation (ED), Anxiety (ED) Additional Instructions: [id number] MiraLAX for constipation Referrals: Flor Mosqueda MD [Primary Care Provider] - 1 week
[2023-12-21 22:22] LABS: Hemoglobin 15.1 g/dL (12.0-16.0); Mean Corpuscular HGB Conc 35.1 g/dL (29.9-35.2); Mean Corpuscular Hemoglobin 31.9 pg (26.7-34.0); Mean Corpuscular Volume 90.7 fL (81.0-99.0); Mean Platelet Volume 9.3 fL (9.5-13.5); Platelet Count 219 10^3/uL (150-450); Red Blood Count 4.74 10^6/uL (4.20-5.40); Red Cell Distribution Width 12.2 % (11.0-15.0); White Blood Count 17.1 10^3/uL (4.0-11.0)
[2023-12-21 22:41] LABS: Alanine Aminotransferase 41 U/L (14-59); Albumin Level 4.2 g/dL (3.4-5.0); Alkaline Phosphatase 95 U/L (46-116); Amylase 48 U/L (25-115); Anion Gap 15.7; Aspartate Amino Transferase 18 U/L (15-37); BUN Creatinine Ratio 21.5; Bilirubin Direct 0.2 mg/dL (0.0-0.2); Bilirubin Total 0.8 mg/dL (0.2-1.0); Calcium 9.4 mg/dL (8.5-10.1); Carbon Dioxide 26.1 mmol/L (21.0-32.0); Chloride 97 mmol/L (98-107); Estimated GFR (African America >60 (>=60); Estimated GFR (Non-African Ame 50 (>=60); Globulin 4.1 g/dL; Glucose 166 mg/dL (74-106); Potassium 3.8 mmol/L (3.5-5.1); Sodium 135 mmol/L (136-145); Total Protein 8.3 g/dL (6.4-8.2)
[2023-12-21 22:46] LABS: Eosinophils Absolute Manual 0.17 10^3/uL (0.00-0.70); Monocytes Absolute Manual 0.17 10^3/uL (0.30-0.80); Segmented Neut Absolute Manual 8.55 10^3/uL (1.4-6.5)
[2023-12-21] MEDS: 0.9 % SODIUM CHLORIDE 1,000 ML 125 ML IV (23:28)
[2023-12-22] VITALS (10 sets, daily range): BP systolic 133–151; BP diastolic 75–94; O2SAT 90–98
[2023-12-22] MEDS: LORAZEPAM 2 MG/ML VIAL 0.5 MG IV (00:40)
== END 2023-12-22 01:42 | disposition home or self-care (01) ==
PROVIDERS: Emergency Provider Emergency Medicine; PCP Family Medicine
DX: K59.00 Constipation, unspecified (principal); F41.9 Anxiety disorder, unspecified
CPT/HCPCS: 36415; 71045; 74177; 80048; 80076; 82150; 83690; 85007; 85027; 93005; 96374; 99285; J2060; Q9967

== ENCOUNTER 2023-12-26 08:28 | Outpatient (OUT) | payer MEDICARE, OTHER, SELFPAY ==
--- OUTSIDE RECORDS SUMMARY | 2023-12-26 08:32 | XMS_ITS | CCD ---
Author Organization [facility] Care Team Providers Care Graphics Coordinator Name Role Phone Carmen Conley MD Primary Care Provider [phone] Carmen Conley Attending Unavailable Carmen Conley Primary [...] CONLEY, DR CARMEN Riggins Primary Care Unavailable [place], DR HAYLEY Martinez Consulting Unavailable CONLEY, DR [...] Unavailable Carmen Conley MD Primary Care Provider [phone] ZULEIMA SUMNER Attending Unavailable ZULEIMA SUMNER Attending Unavailable CARMEN CONLEY Primary Care Physician JANUSZ Hernández Attending Unavailable NONE, XXXX Referring Unavailable NONE, XXXX Referring Unavailable JANUSZ Hernández Attending Unavailable Deonte Peraza Attending Unavaila CARMEN Ward Referring Unavailable Shaun Goode Attending Unavailable Mouchanjel Mohamad AJeff Attending Unavailable MoYvette marshamad AJeff [...] Translations: [sulfa drugs] Drug Allergy Weal (disorder) [facility] (2 sources) Latex Drug Allergy 09-07-19 17 Unknown [facility] (2 sources) Sulfonamides (Antibiotic) Drug Allergy 09-06-19 17 Anaphylaxis [facility] (20 sources) Latex Propensity to adverse reactions Unknown [facility] Other (20 sources) Sulfonamides (Antibiotic) Propensity to adverse reactions Unknown [facility] Other (1 source) Latex Drug allergy (disorder) 10-15-19 16 [facility] (1 source) Sulfonamides (Antibiotic) Drug allergy (disorder) 08-19-19 13 [facility] (13 sources) sulfADIAZINE Drug Allergy 09-12-19 18 Comment:RABIAA Noval[facility] Other (12 sources) Adhesive bandage; Translations: [Adhesive Bandage] Drug allergy Eruption of skin (disorder) [facility] (11 sources) Sulfonamides (Antibiotic); Translations: [sulfa drugs] Drug allergy Weal (disorder) [facility] Medications Current Medications Medication Drug Class(es) Dates Sig (Normalized) Sig (Original) [id number] actuat albuterol 0.09 mg/actuat metered dose [...] Daily, # 30 cap(s), Refills(s) 5, Pharmacy: [facility]/pharmacy #[id number], 155, cm, 06/26/23 12:22:00 EDT, Height/Length Dosing, [...] Daily, # 30 tab(s), Refills(s) 2, Pharmacy: [facility]/pharmacy #[id number], 155, cm, 09/05/23 10:04:00 [...] Daily, # 90 tab(s), Refills(s) 3, Pharmacy: [facility]/pharmacy #[id number], 153, cm, 07/24/23 13:54:00 [...] sources) Long-term current use of insulin; Translations: [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] Episodic Other connective [...] 11-26-2021 Episodic Other aftercare (1 source) 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 Substitutions may have occurred due to the [...] Ozempic, Sub (more content not included)... Normal [facility] Comment on above: Result Comment: Elec tronically Signed By: Edgar BOUDREAUX, Dontae Wolfe\.elyse\Date and Time Signed: 10/08/23 13:53 EDT NM Myocardial Spect Rest/Str ess 1 Dayon 10-02-2023 NM Myocardial Spect Rest/Stress 1 Day Exam Date/Time: 10/01/2023 14:13 EDT Reason for Exam: ventricular tachycardia;Other (please specify) Report [facility] [address] [place] [address] Nuclear Stress Report Name: IVELISSE GEE Study Date: 10/01/2023 12:32 PM Patient Location: [facility] : 1950 (M/d/yyyy) Gender: Female Age: 73 yrs Ethnicity: T Reason For Study: Other (please specify) Ordering Physician: Dontae Hernández Referring Physician: Dontae Hernández Protocol 70053 Pharmacologic Lexiscan stress with Isotope. Study Protocol: [...] Signed by: Deonte Peraza MD Transcribed by: [facility] Technologist: ISAAC Wahl [facility] Consent for Treatmenton 09-07 Consent for Treatment [id number]#1.00TIF F [facility] Monitor Recordon 10-01-2023 Monitor Record [id number]#1.00TIF F [facility] Event Monitoron 09-30-2023 Event Monitor EVENT [...] BY: Ciaran Villatoro MD ca Dictated: 09/28/2023 [id number] Transcribed: 09/30/2023 [facility] Comment on above: Result Comment: Elec tronically Signed By: Shauna CERRATO, Ciaran Mccabe\.br\Date and Time Signed: 09/30/23 13:51 EDT Consent for Treatmenton 08-08 Consent for Treatment [id number]#1.00TIF F [facility] Heart and Vascular Office/Cl inic Noteon [...] Daily, # 30 tab(s), Refills(s) 2, Pharmacy: [facility]/pharmacy #[id number], 155, cm, 09/05/23 10:04:00 [...] with voice recognition artificial intelligence software, specifically DartPoints, PhotoTLC and or Story of My Life. Substitutions may have occurred due to the [...] Father. Immunizations [facility] (more content not included)... [facility] Comment on above: Result Comment: Elec tronically Signed By: Edgar BOUDREAUX, Dontae Wolfe\.elyse\Date and Time Signed: 09/05/23 12:53 EDT Physician Orderon 09-05-2023 Physician Order [id number]#1.00T IFF [facility] Monitor Recordon 09-03-2023 Monitor Record [id number]#1.00TI FF [facility] Consent for Treatmenton 07-08 Consent for Treatment [id number]#1.00TIF F [facility] Ambulatory Visit Summaryon 0 07-24-2023 Ambulatory Visit Summary IVELISSE GEE :1950 Visit Date:07/24/2023 Ambulatory Visit Instructions Your Diagnosis Gastropathy Cirrhosis of liver Chronic constipation Your Care Team Attending Physician - Shaun Goode MD Primary Care Physician - CARMEN CONLEY MD [...] [facility] Normal [facility] Gastroenterology Office/Clin ic Noteon 07-24-2023 Gastroenterology [...] 1-2 bowel movements every day by using ucgr-exz-eocqqxa laxatives such as senna Advised to massage [...] Daily, # 30 cap(s), Refills(s) 5, Pharmacy: [facility]/pharmacy #[id number], 155, cm, 06/26/23 12:22:00 EDT, Height/Length Dosing, 72.1, kg, 06/26/23 12:22:00 EDT, Weight Dosing pantoprazole, 40 mg = 1 tab(s), Oral, Daily, # 90 tab(s), Refills(s) 3, Pharmacy: [facility]/pharmacy #[id number], 153, cm, 07/24/23 13:54:00 [...] influenza virus vaccine, inactivated 04/09/2016 Recorded Normal [facility] Comment on above: Result Comment: Elec tronically Signed By: Rupa CERRATO, Shaun Resendiz.br\Date and Time Signed: 07/24/23 14:16 EDT IntraOperative Documentson 0 07-04-2023 IntraOperative Documents [id number]#1.00TI FF [facility] Consenton 07-03-2023 Consent [id number]#1.00TI FF [facility] Discharge Instructionson Discharge Instructions [id number]#1.00TI [facility] Main OR Intraoperative Recor don 07-03-2023 Main OR Intraoperative Record IntraOp Document Type FT Summary Primary Physician: Shaun Goode MD Finalized Date/Time: 07/03/23 11:58:54 Pt. Name: MARLENIVELISSE/Sex: 1950 Female Med Rec #: [id number] Physician: Shaun Goode MD Financial #: [id number] Pt. Type: O Room/Bed: / Admit/Disch: 07/02/23 [...] Alicia MARC, Aba Mcgill CRNA Role Performed Cinetechnician - Primary PROFESSOR OF GEOGRAPHY Time In 07/02/23 09:08:00 07/02/23 09:08:00 Time [...] Ortega, Given Participants Kristie Shultz Mouchli MD, Shaun Xiao, Adele Vargas RN, Williams CRNA, [...] Procedure Yes Primary Surgeon Rupa CERRATO, Shaun Alegria 07/02/23 09:15:00 Stop 07/02/23 09:19:00 Anesthesia Type [...] and tissue Entry 1 Skin Integrity Intact, [place], Warm, and Skin Abnormality No Dry Outcomes Met? Yes Last Modified By: Adele aVrgas RN 07/02/23 09:24:06 Post-Care Text: The patient [...] Yes Left (more content not included)... [facility] Postoperative Documentson Postoperative Documents [id number]#1.00TI FF Normal [facility] Progress Note-Physicianon Progress Note-Physician Patient: IVELISSE [...] selected or recorded. Histories Procedure history: Bladder ([id number]). Comments: 06/26/2023 12:18 EDT - Nancy Cuenca 15 years ago Gallbladder ([id number]). Hysterectomy ([id number]). Arm ([id number]). Hand ([id number]). Social History Social & Psychosocial Habits Tobacco 06/26/2023 Risk Assessment: Denies Tobacco Use 06/26/2023 Tobacco Use: Never (less than 100 in l . Physical Examination Airway: Mallampati classification: II (soft palate, fauces, uvula visible). Respiratory: adequate air exchange. Cardiovascular: Regular rhythm. Plan [place] Society of Anesthesiologists (ASA) physical status classification: Class II. Anesthetic Preoperative Plan: Anesthesia General. [facility] Comment on above: Result Comment: Elec tronically Signed By: Brant Friedman Jr, DO\.br\Date and Time Signed: 07/03/23 15:21 EDT Progress Note-Physician Patient: IVELISSE GEE Age: 72 years Sex: Female : 1950 Associated Diagnoses: None Author: Brant Friedman Jr, DO Postoperative Information Postoperative disposition: Postoperative disposition: To PACU. Optimetrix number: Optimetrix number [id number]. Anesthetic utilized: General. Health Status Allergies: Allergic [...] when meets criteria ( To home ). [facility] Comment on above: Result Comment: Elec tronically Signed By: Brant Friedman Jr, DO\harvinder\Date and Time Signed: 07/03/23 15:20 EDT Consent for Treatmenton 06-07 Consent for Treatment [id number]#1.00TIF F [facility] Discharge Instructionson Discharge Instructions IVELISSE GEE [...] Doctor Event Name Event Result Pharmacy Information [facility] Previously Scheduled Follow-Up Appointments August. 2023 2:00 PM EDT With: Karmen CERRATO, Deonte Roth Where: [facility] New Follow Up Appointments after Discharge Follow Up with Rupa CERRATO, Shaun Xiao [facility] When: Comments: Call for any [...] Document Re-Released: 09/16/2006 ExitCare? Patient Information ?2009 [employer]. Esophagitis Esophagitis is inflammation of the esophagus. [...] to the (more content not included)... [facility] Comment on above: Result Comment: Elec tronically Signed By: Elma Vanessa.elyse\Date and Time Signed: 07/02/23 09:34 EDT Nicole [...] Daily, # 30 cap(s), Refills(s) 5, Pharmacy: [facility]/pharmacy #[id number], 155, cm, 06/26/23 12:22:00 EDT, Height/Length Dosing, [...] duodenum status post biopsies Images Procedure images: Rec_video_ [id number].jpg Rec_hd_video_ [id number].jpg Rec_hd_video_ [id number].jpg Rec_hd_video_ [id number].jpg Rechdvideo [id number].jpg Rec_hd_video_ [id number].jpg . Post-Procedure Complications: none. Estimated blood loss: none. Specimens: sent to pathology. Devices/ implants: none left in place. Impression and Plan EGD: Diagnosis: Esophagitis, reflux (MII83-LT K21.00, Working, Medical). Course: Progressing as expected. Education and Follow-up: Counseled: Family. Notes: Start Protonix 40 mg once daily Might benefit from Carafate in the future. [facility] Comment on above: Other Comment: Kathy hernandez Attachment - attachment storage system not supported [id number] Can be viewed in source system Missing Attachment - attachment storage system not supported [id number] Can be viewed in source system Missing Attachment - attachment storage system not supported [id number] Can be viewed in source system Missing Attachment - attachment storage system not supported [id number] Can be viewed in source system Missing Attachment - attachment storage system not supported [id number] Can be viewed in source system Missing Attachment - attachment storage system not supported [id number] Can be viewed in source system Main OR PACU I Recordon 06-07 Main OR PACU I Record PACU Phase I Docum ent Type FT Summary Primary Physician: Shaun Goode MD Finalized Date/Time: 07/02/23 10:08:53 Pt. Name: IVELISSE GEE/Sex: 1950 Female Med Rec #: [id number] Physician: Shaun Goode MD Financial #: [id number] Pt. Type: O Room/Bed: / Admit/Disch: 07/02/23 [...] Signed By: Elma Vanessa I 07/02/23 10:08 [facility] Main OR Preoperative Recordo n 07-02-2023 Main OR Preoperative Record Holding Area Document Type FT Summary Primary Physician: Shaun Goode MD Finalized Date/Time: 07/02/23 08:43:45 Pt. Name: IVELISSE GEE/Sex: 1950 Female Med Rec #: [id number] Physician: Shaun Goode MD Financial #: [id number] Pt. Type: O Room/Bed: / Admit/Disch: 07/02/23 [...] By: Alex Calhoun RN 07/02/23 08:43 Normal [facility] Monitor Recordon 07-02-2023 Monitor Record [id number]#1.00TI FF Normal [facility] Monitor Record [id number]#1.00TI FF Normal [facility] AFPon 06-27-2023 AFP.tumor marker [Mass/Vol] 3.5 ng/mL Invalid Interpretation Code 0.0-9.2 [facility] Comment on above: Result Comment: [facility] [employer] Electrochemiluminescence Immunoassay (ECLIA) Values obtained with different assay methods or kits cannot be used interchangeably. Results cannot be interpreted as absolute evidence of the presence or absence of malignant disease. This test is not interpretable in females. Performed at: [address] [id number] PhD Isidoro Pak Performed By: #### 2 [id number] ####Nascimento [facility] [address] [place] [address] Consent for Procedure/Surger yon 06-27-2023 Consent for Procedure/Surgery [id number]#1.00TIF F Normal Azam [facility] Ambulatory Visit Summaryon 0 06-26-2023 Ambulatory [...] you for choosing us for your care. [facility] Consent for Treatmenton 06-07 Consent for Treatment [id number]#1.00TIF F Normal [facility] Gastroenterology Office/Clin ic Noteon 06-26-2023 Gastroenterology [...] 1-2 bowel movements every day by using qblh-yfv-yzxkyhb laxatives such as senna Advised to massage [...] influenza virus vaccine, inactivated 04/09/2016 Recorded Normal [facility] Comment on above: Result Comment: Elec tronically Signed By: Rupa CERRATO, Shaun Resendiz.elyse\Date and Time Signed: 06/26/23 13:09 EDT Physician Orderon 06-24-2023 Physician Order [id number]#1.00TIFF Normal [facility] Heart and Vascular Office/Cl inic Noteon [...] appointment on 06/26/2023. She went back to [facility], although it made her feel unwell. [...] with voice recognition artificial intelligence software, specifically DartPoints, PhotoTLC and or Story of My Life. Substitutions may have occurred due to the inherent limitations of voice recognition and artificial intelligence software. ATTESTATION: Documentation services were performed after patient or guardian consented to allow [employer] to record this visit. SAMUEL applications support specialist and provider reviewed before signing. SAMUEL: [...] History Tobacco - Denies Tobacco Use, 06/21/2023 [facility] Comment on above: Result Comment: Elec [...] Where: [facility] Consent for Treatmenton 06-06 Consent for Treatment [id number]#1.00TIF F [facility] Physician Referralon 024 Physician Referral [id number]#1.00TIF F [facility] Referrals Officeon 4 Referrals Office [id number]#1.00TIF F Normal [facility] Physician Orderon 05-30-2023 Physician Order [id number]#1.00TIF F Normal [facility] Referrals Officeon Referrals Office [id number]#1.00TIF F Normal [facility] CREATININEon 08-08-2022 Creatinine [Mass/Vol] 0.94 mg/dL Normal 0.55-1.02 [facility] Comment on above: Performed By: #### L IPA, HSTROPN, TSH, CMP #### [facility] [address] [address] [address] Juan Zamarripa EGFR-AF PALESTINIAN >60 Normal >=60 [facility] Comment on above: Performed By: #### L IPA, HSTROPN, TSH, CMP #### [facility] [address] [address] [address] Juan Zamarripa EGFR-NON AF PALESTINIAN 58 mL/min/1.73m2 Critically low >=60 [facility] Comment on above: Performed By: #### L IPA, HSTROPN, TSH, CMP #### [facility] [address] ABD/PELVIS WO CONon [...] CARO SIBLEY Date: 2022-08-08 13:42 Normal [facility] Urine Cultureon 07-24-2022 Bacteria identified Cx Nom (U) No Growth 2 Days PERFORMED BY: [place] [address] PATHOLOGIST LAUNDRY EQUIPMENT OPERATOR JAIMIE RIVERA M.D. Normal [facility] Comment on above: Performed By: #### C UU #### [address] PNEUMOCOCCAL IM (23 SEROTYPE )on 07-07-2022 Pneumo Ab Type 1* 2.8 ug/mL Normal >1.3 [facility] Comment on above: Performed By: #### L IPA, HSTROPN, TSH, CMP #### [facility] [address] [address] [address] Juan Zamarripa Pneumo Ab Type 12 (12F)* 0.2 ug/mL Critically low >1.3 [facility] Comment on above: Performed By: #### L IPA, HSTROPN, TSH, CMP #### [facility] [address] [address] [address] Juan Zamarripa Pneumo Ab Type 14* >18.7 Normal >1.3 [facility] Comment on above: Performed By: #### L IPA, HSTROPN, TSH, CMP #### [facility] [address] [address] [address] Juan Zamarripa Pneumo Ab Type 17 (17F)* >20.2 Normal >1.3 [facility] Comment on above: Performed By: #### L IPA, HSTROPN, TSH, CMP #### [facility] [address] [place] [address] Dr. Juan Zamarripa Pneumo Ab Type 19 (19F)* 21.7 ug/mL Normal >1.3 [facility] Comment on above: Performed By: #### L IPA, HSTROPN, TSH, CMP #### [facility] [address] [place] [address] Dr. Juan Zamarripa Pneumo Ab Type 2* 5.7 ug/mL Normal >1.3 [facility] Comment on above: Performed By: #### L IPA, HSTROPN, TSH, CMP #### [facility] [address] [place] [address] Dr. Juan Zamarripa Pneumo Ab Type 20* 4.0 ug/mL Normal >1.3 [facility] Comment on above: Performed By: #### L IPA, HSTROPN, TSH, CMP #### [facility] [address] [place] [address] Dr. Juan Zamarripa Pneumo Ab Type 22 (22F)* 1.5 ug/mL Normal >1.3 [facility] Comment on above: Performed By: #### L IPA, HSTROPN, TSH, CMP #### [facility] [address] [place] [address] Dr. Juan Zamarripa Pneumo Ab Type 23 (23F)* 3.4 ug/mL Normal >1.3 [facility] Comment on above: Performed By: #### L IPA, HSTROPN, TSH, CMP #### [facility] [address] [place] [address] Dr. Juan Zamarripa Pneumo Ab Type 26 (6B)* 3.0 ug/mL Normal >1.3 [facility] Comment on above: Performed By: #### L IPA, HSTROPN, TSH, CMP #### [facility] [address] [address] [address] Juan Zamarripa Pneumo Ab Type 3* 1.6 ug/mL Normal >1.3 [facility] Comment on above: Performed By: #### L IPA, HSTROPN, TSH, CMP #### [facility] [address] [place] [address] Dr. Juan Zamarripa Pneumo Ab Type 34 (10A)* 4.4 ug/mL Normal >1.3 [facility] Comment on above: Performed By: #### L IPA, HSTROPN, TSH, CMP #### [facility] [address] [place] [address] Dr. Juan Zamarripa Pneumo Ab Type 4* 1.6 ug/mL Normal >1.3 [facility] Comment on above: Performed By: #### L IPA, HSTROPN, TSH, CMP #### [facility] [address] [place] [address] Dr. Juan Zamarripa Pneumo Ab Type 43 (11A)* >7.6 Normal >1.3 [facility] Comment on above: Performed By: #### L IPA, HSTROPN, TSH, CMP #### [facility] [address] [place] [address] Dr. Juan Zamarripa Pneumo Ab Type 5* 2.0 ug/mL Normal >1.3 [facility] Comment on above: Performed By: #### L IPA, HSTROPN, TSH, CMP #### [facility] [address] [address] [address] Juan Zamarripa Pneumo Ab Type 51 (7F)* 0.9 ug/mL Critically low >1.3 [facility] Comment on above: Performed By: #### L IPA, HSTROPN, TSH, CMP #### [facility] [address] [place] [address] Dr. Juan Zamarripa Pneumo Ab Type 54 (15B)* >22.0 Normal >1.3 [facility] Comment on above: Performed By: #### L IPA, HSTROPN, TSH, CMP #### [facility] [address] [place] [address] Dr. Juan Zamarripa Pneumo Ab Type 56 (18C)* >8.1 Normal >1.3 [facility] Comment on above: Performed By: #### L IPA, HSTROPN, TSH, CMP #### [facility] [address] [place] [address] Dr. Juan Zamarripa Pneumo Ab Type 57 (19A)* 2.5 ug/mL Normal >1.3 [facility] Comment on above: Performed By: #### L IPA, HSTROPN, TSH, CMP #### [facility] [address] [place] [address] Dr. Juan Zamarripa Pneumo Ab Type 68 (9V)* >13.4 Normal >1.3 [facility] Comment on above: Performed By: #### L IPA, HSTROPN, TSH, CMP #### [facility] [address] [place] [address] Dr. Juan Zamarripa Pneumo Ab Type 70 (33F)* >10.1 Normal >1.3 [facility] Comment on above: Result Comment: *Thi s test was developed and its performance characteristics determined by [employer]. It has not been cleared or approved by the U.S. Food and Drug Administration. Performed By: #### L IPA, HSTROPN, TSH, CMP #### [facility] [address] [place] [address] Dr. Juan Zamarripa Pneumo Ab Type 8* 1.2 ug/mL Critically low >1.3 [facility] Comment on above: Performed By: #### L IPA, HSTROPN, TSH, CMP #### [facility] [address] [place] [address] Dr. Juan Zamarripa Pneumo Ab Type 9 (9N)* 1.7 ug/mL Normal >1.3 [facility] Comment on above: Performed By: #### L IPA, HSTROPN, TSH, CMP #### [facility] [address] [place] [address] Dr. Juan Zamarripa BORDETELLA PERTUSSIS AB IGGo n 0330-2023 B pertussis IgG Ab 1.53 index Invalid Interpretation Code 0.00-0.94 [facility] Comment on above: Result Comment: Clie nt Requested Flag Negative <0.95 Equivocal 0.95 - 1.04 Positive >1.04 Performed By: #### A 1C #### [facility] [address] [place] [address] Dr. Juan Zamarripa TETANUS DIPTHERIA AB PROFILE on 07-05-2022 Diphtheria Antitoxoid Ab 0.29 IU/mL Normal <0.10 [facility] Comment on above: Result Comment: Inte rpretation: Non-Protective <0.10 Protective >=0.10 . For research use only. Performed By: #### C BC #### [facility] [address] [place] [address] Dr. Juan Zamarripa Tetanus Antitoxoid IgG Ab 0.94 IU/mL Normal <0.10 [facility] Comment on above: Result Comment: Inte rpretation: Non-Protective <0.10 Protective >=0.10 Results for this test are for research purposes only by the assay's baster hand. The performance characteristics of this product have not been established. Results should not be used as a diagnostic procedure without confirmation of the diagnosis by another medically established diagnostic product or procedure. Performed By: #### C BC #### [facility] [address] [place] [address] Dr. Juan Zamarripa HAEMOPHILUS INFLUENZA B IGGo n 07-04-2022 Haemophilus influenzae B IgG 0.21 ug/mL Normal [facility] Comment on above: Result Comment: NOTE : An anti-Hib level of 0.15 ug/mL is generally accepted as the minimum level for protection. Optimal protection post-vaccination requires a level greater than 1.00 ug/mL. Performed By: #### L IPA, HSTROPN, TSH, CMP #### [facility] [address] [place] [address] Dr. Juan Zamarripa IMMUNOGLOBULINS IGA/IGM/IGG QUANTITATIVEon 07-03-2022 Immunoglobulin A, Qn, Serum 219 mg/dL Normal 64-422 [facility] Comment on above: Performed By: #### L IPA, HSTROPN, TSH, CMP #### [facility] [address] [address] [address] Juan Zamarripa Immunoglobulin G, Qn, Serum 1365 mg/dL Normal 586-1602 [facility] Comment on above: Performed By: #### L IPA, HSTROPN, TSH, CMP #### [facility] [address] [address] [address] Juan Zamarripa Immunoglobulin M, Qn, Serum 66 mg/dL Normal 26-217 [facility] Comment on above: Performed By: #### L IPA, HSTROPN, TSH, CMP #### [facility] [address] [address] [address] Juan Zamarripa LYMPHOCYTE ACTIVITY PROFILEo n 07-03-2022 %CD3+CD25+Lymphs 20.3 % Normal 4.9-25.9 [facility] Comment on above: Result Comment: This test was developed and its performance characteristics determined by [facility]. It has not been cleared or approved by the Food and Drug Administration. Performed at: BN Performed By: #### L YMACT #### [facility] [address] [place] [address] Dr. Juan Zamarripa %CD8+CD57+Lymphs 16.6 % Critically high 0.0-11.3 [facility] Comment on above: Result Comment: This test was developed and its performance characteristics determined by [facility]. It has not been cleared or approved by the Food and Drug Administration. Performed at: BN Performed By: #### L YMACT #### [facility] [address] [place] [address] Dr. Juan Zamarripa Abs CD 4 helper 986 /uL Normal 359-1519 [facility] Comment on above: Result Comment: Perf ormed at: CB Performed By: #### L YMACT #### [facility] [address] [place] [address] Dr. Juan Zamarripa Abs. CD 8 Supp 898 /uL Critically high 109-897 [facility] Comment on above: Result Comment: Perf ormed at: CB Performed By: #### L YMACT #### [facility] [address] [place], [place] [id number] Dr. Juan Zamarripa Abs.CD3+CD25+Lymphs 447 /uL Normal 79-535 [facility] Comment on above: Result Comment: This test was developed and its performance characteristics determined by [facility]. It has not been cleared or approved by the Food and Drug Administration. Performed at: CB Performed By: #### L YMACT #### [facility] [address] [place] [address] Dr. Juan Zamarripa Abs.CD8+CD57+Lymphs 365 /uL Critically high 0-254 [facility] Comment on above: Result Comment: This test was developed and its performance characteristics determined by [facility]. It has not been cleared or approved by the Food and Drug Administration. Performed at: CB Performed By: #### L YMACT #### [facility] [address] [place] [address] Dr. Juan Zamarripa Absolute CD 3 1918 /uL Normal 622-2402 [facility] Comment on above: Result Comment: Perf ormed at: CB Performed By: #### L YMACT #### [facility] [address] [place] [address] Dr. Juan Zamarripa Basophils (Bld) [#/Vol] 0.0 10*3/uL Normal 0.0-0.2 [facility] Comment on above: Result Comment: Perf ormed at: CB Performed By: #### L YMACT #### [facility] [address] [place] [address] Dr. Juan Zamarripa Basophils/100 WBC (Bld) 1 % Normal Not Estab. T [facility] Comment on above: Result Comment: Perf ormed at: CB Performed By: #### L YMACT #### [facility] [address] [place] [address] Dr. Juan Zamarripa CD4/CD8 Ratio 1.10 Normal 0.92-3.72 [facility] Comment on above: Result Comment: Perf ormed at: BN Performed By: #### L YMACT #### [facility] [address] [place] [address] Dr. Juan Zamarripa Eosinophils (Bld) [#/Vol] 0.1 10*3/uL Normal 0.0-0.4 [facility] Comment on above: Result Comment: Perf ormed at: CB Performed By: #### L YMACT #### [facility] [address] [address] [address] Juan Zamarripa Eosinophils/100 WBC (Bld) 1 % Normal Not Estab. The [facility] Comment on above: Result Comment: Perf ormed at: CB Performed By: #### L YMACT #### [facility] [address] [address] [address] Juan Zamarripa Erythrocyte distribution width (RBC) [Ratio] 12.6 % Normal 11.7-15.4 [facility] Comment on above: Result Comment: Perf ormed at: CB Performed By: #### L YMACT #### [facility] [address] [place] [address] Dr. Juan Zamarripa Hematocrit (Bld) [Volume fraction] 41.9 % Normal 34.0-46.6 [facility] Comment on above: Result Comment: Perf ormed at: CB Performed By: #### L YMACT #### [facility] [address] [place] [address] Dr. Juan Zamarripa Hematology Comments Normal [facility] Comment on above: Result Comment: Perf ormed at: CB Performed By: #### L YMACT #### [facility] [address] [place] [address] Dr. Juan Zamarripa Hemoglobin (Bld) [Mass/Vol] 14.2 g/dL Normal 11.1-15.9 [facility] Comment on above: Result Comment: Perf ormed at: CB Performed By: #### L YMACT #### [facility] [address] [place] [address] Dr. Juan Zamarripa Immature Cells Normal [facility] Comment on above: Result Comment: Perf ormed at: CB Performed By: #### L YMACT #### [facility] [address] [place] [address] Dr. Juan Zamarripa Immature Grans (Abs) 0.0 x10E3/uL Normal 0.0-0.1 [facility] Comment on above: Result Comment: Perf ormed at: CB Performed By: #### L YMACT #### [facility] [address] [address] [address] Juan Zamarripa Immature granulocytes/100 WBC (Bld) 0 % Normal Not Estab. [facility] Comment on above: Result Comment: Perf ormed at: CB Performed By: #### L YMACT #### [facility] [address] [place] [address] Dr. Juan Zamarripa Lymphocytes (Bld) [#/Vol] 2.2 10*3/uL Normal 0.7-3.1 [facility] Comment on above: Result Comment: Perf ormed at: CB Performed By: #### L YMACT #### [facility] [address] [place] [address] Dr. Juan Zamarripa Lymphocytes/100 WBC (Bld) 87.2 % Critically high 57.5-86.2 [facility] Comment on above: Result Comment: Perf ormed at: BN Performed By: #### L YMACT #### [facility] [address] [place] [address] Dr. Juan Zamarripa Lymphocytes/100 WBC (Bld) 44.8 % Normal 30.8-58.5 [facility] Comment on above: Result Comment: Perf ormed at: BN Performed By: #### L YMACT #### [facility] [address] [place] [address] Dr. Juan Zamarripa Lymphocytes/100 WBC (Bld) 40.8 % Critically high 12.0-35.5 [facility] Comment on above: Result Comment: Perf ormed at: BN Performed By: #### L YMACT #### [facility] [address] [place] [address] Dr. Juan Zamarripa Lymphocytes/100 WBC (Bld) 34 % Normal Not Estab. [facility] Comment on above: Result Comment: Perf ormed at: CB Performed By: #### L YMACT #### [facility] [address] [place] [address] Dr. Juan Zamarripa MCH (RBC) [Entitic mass] 31.3 pg Normal 26.6-33.0 [facility] Comment on above: Result Comment: Perf ormed at: CB Performed By: #### L YMACT #### [facility] [address] [place] [address] Dr. Juan Zamarripa MCHC (RBC) [Mass/Vol] 33.9 g/dL Normal 31.5-35.7 [facility] Comment on above: Result Comment: Perf ormed at: CB Performed By: #### L YMACT #### [facility] [address] [address] [address] Juan Zamarripa MCV (RBC) [Entitic vol] 92 fL Normal 79-97 [facility] Comment on above: Result Comment: Perf ormed at: CB Performed By: #### L YMACT #### [facility] [address] [place] [address] Dr. Juan Zamarripa Monocytes (Bld) [#/Vol] 0.3 10*3/uL Normal 0.1-0.9 [facility] Comment on above: Result Comment: Perf ormed at: CB Performed By: #### L YMACT #### [facility] [address] [place] [address] Dr. Juan Zamarripa Monocytes/100 WBC (Bld) 4 % Normal Not Estab. [facility] Comment on above: Result Comment: Perf ormed at: CB Performed By: #### L YMACT #### [facility] [address] [place] [address] Dr. Juan Zamarripa Neutrophils Absolute 4.0 x10E3/uL Normal 1.4-7.0 [facility] Comment on above: Result Comment: Perf ormed at: CB Performed By: #### L YMACT #### [facility] [address] [place] [address] Dr. Juan Zamarripa Neutrophils/100 WBC (Bld) 60 % Normal Not Estab. [facility] Comment on above: Result Comment: Perf ormed at: CB Performed By: #### L YMACT #### [facility] [address] [place] [address] Dr. Juan Zamarripa NRBC Normal [facility] Comment on above: Result Comment: Perf ormed at: CB Performed By: #### L YMACT #### [facility] [address] [address] [address] Juan Zamarripa Platelets (Bld) [#/Vol] 164 10*3/uL Normal 150-450 [facility] Comment on above: Result Comment: Perf ormed at: CB Performed By: #### L YMACT #### [facility] [address] [place] [address] Dr. Juan Zamarripa RBC (Bld) [#/Vol] 4.54 10*6/uL Normal 3.77-5.28 [facility] Comment on above: Result Comment: Perf ormed at: CB Performed By: #### L YMACT #### [facility] [address] [place] [address] Dr. Juan Zamarripa WBC (Bld) [#/Vol] 6.6 10*3/uL Normal 3.4-10.8 [facility] Comment on above: Result Comment: Perf ormed at: CB Performed By: #### L YMACT #### [facility] [address] [place] [address] Dr. Juan Zamarripa PROF 14(COMP METB)on 023 Albumin [Mass/Vol] 4.1 g/dL Normal 3.4-5.[address] [facility] Comment on above: Performed By: #### L IPA, HSTROPN, TSH, CMP #### [facility] [address] [place] [address] Dr. Juan Zamarripa Albumin/Globulin [Mass ratio] 1.1 {ratio} Normal [facility] Comment on above: Performed By: #### L IPA, HSTROPN, TSH, CMP #### [facility] [address] [place] [address] Dr. Juan Zamarripa ALP [Catalytic activity/Vol] 107 U/L Normal 46-116 [facility] Comment on above: Performed By: #### L IPA, HSTROPN, TSH, CMP #### [facility] [address] [place] [address] Dr. Juan Zamarripa ALT [Catalytic activity/Vol] 69 U/L Critically high 14-59 [facility] Comment on above: Performed By: #### L IPA, HSTROPN, TSH, CMP #### [facility] [address] [address] [address] Juan Zamarripa Anion gap [Moles/Vol] 14.0 mmol/L Normal Th e [facility] Comment on above: Performed By: #### L IPA, HSTROPN, TSH, CMP #### [facility] [address] [address] [address] Juan Zamarripa AST [Catalytic activity/Vol] 31 U/L Normal 15-37 [facility] Comment on above: Performed By: #### L IPA, HSTROPN, TSH, CMP #### [facility] [address] [place] [address] Dr. Juan Zamarripa Bilirubin [Mass/Vol] 0.8 mg/dL Normal 0.2-1.0 [facility] Comment on above: Performed By: #### L IPA, HSTROPN, TSH, CMP #### [facility] [address] [address] [address] Juan Zamarripa Calcium [Mass/Vol] 9.1 mg/dL Normal 8.5-10.[address] [facility] Comment on above: Performed By: #### L IPA, HSTROPN, TSH, CMP #### [facility] [address] [place] [address] Dr. Juan Zamarripa Chloride [Moles/Vol] 104 mmol/L Normal 98-107 [facility] Comment on above: Performed By: #### L IPA, HSTROPN, TSH, CMP #### [facility] [address] [place] [address] Dr. Juan Zamarripa CO2 [Moles/Vol] 28.1 mmol/L Normal 21.0-32.0 [facility] Comment on above: Performed By: #### L IPA, HSTROPN, TSH, CMP #### [facility] [address] [address] [address] Juan Zamarripa Creatinine [Mass/Vol] 0.77 mg/dL Normal 0.55-1.02 [facility] Comment on above: Performed By: #### L IPA, HSTROPN, TSH, CMP #### [facility] [address] [address] [address] Juan Zamarripa EGFR-AF PALESTINIAN >60 Normal >=60 [facility] Comment on above: Performed By: #### L IPA, HSTROPN, TSH, CMP #### [facility] [address] [address] [address] Juan Zamarripa EGFR-NON AF PALESTINIAN >60 Normal >=60 [facility] Comment on above: Performed By: #### L IPA, HSTROPN, TSH, CMP #### [facility] [address] [place] [address] Dr. Juan Zamarripa Globulin (S) [Mass/Vol] 3.9 g/dL Normal [facility] Comment on above: Performed By: #### L IPA, HSTROPN, TSH, CMP #### [facility] [address] [address] [address] Juan Zamarripa Glucose [Mass/Vol] 186 mg/dL Critically high 74-106 [facility] Comment on above: Performed By: #### L IPA, HSTROPN, TSH, CMP #### [facility] [address] [address] [address] Juan Zamarripa Potassium [Moles/Vol] 4.1 mmol/L Normal 3.5-5.1 [facility] Comment on above: Performed By: #### L IPA, HSTROPN, TSH, CMP #### [facility] [address] [place] [address] Dr. Juan Zamarripa Protein [Mass/Vol] 8.0 g/dL Normal 6.4-8.2 [facility] Comment on above: Performed By: #### L IPA, HSTROPN, TSH, CMP #### [facility] [address] [place] [address] Dr. Juan Zamarripa Sodium [Moles/Vol] 142 mmol/L Normal 136-145 [facility] Comment on above: Performed By: #### L IPA, HSTROPN, TSH, CMP #### [facility] [address] [place] [address] Dr. Juan Zamarripa Urea nitrogen [Mass/Vol] 9.0 mg/dL Normal 7.0-18.0 [facility] Comment on above: Performed By: #### L IPA, HSTROPN, TSH, CMP #### [facility] [address] [place] [address] Dr. Juan Zamarripa Urea nitrogen/Creatinine [Mass ratio] 11.7 mg/mg Normal [facility] Comment on above: Performed By: #### L IPA, HSTROPN, TSH, CMP #### [facility] [address] [place] [address] Dr. Juan Zamarripa CULTURE URINEon 06-12-2022 CULTURE URINE Culture Observations : LIGHT GROWTH OF MIXED GENITAL ALDA. NO POTENTIAL PATHOGENS SEEN. Normal [facility] Comment on above: Performed By: #### U RCX #### [facility] [address] [place] [address] Dr. Juan Zamarripa UA RANDOMon 06-12-2022 Glucose Ql (U) 100 mg/dl Abnormal NEGATIVE [facility] Comment on above: Performed By: #### U A #### [facility] [address] [place] [address] Dr. Juan Zamarripa LEUKOCYTES SMALL Abnormal NEGATIVE [facility] Comment on above: Performed By: #### U A #### [facility] [address] [place] [address] Dr. Juan Zamarripa SPEC GRAVITY 1.015 Normal 1.005-<=1. 025 [facility] Comment on above: Performed By: #### U A #### [facility] [address] [place] [address] Dr. Juan Zamarripa UA PROTEIN Negative Normal NEGATIVE/ TRACE [facility] Comment on above: Performed By: #### U A #### [facility] [address] [place] [address] Dr. Juan Zamarripa Urobilinogen Qn (U) 0.2 {Amee'U}/dL Normal 0.2 - 1. 0 [facility] Comment on above: Performed By: #### U A #### [facility] [address] [place] [address] Dr. Juan Zamarripa Urinalysison 06-12-2022 Glucose Ql (U) 100 mg/dl Abnormal NEGATIVE mg/dl [employer] Other Urinalysis see note [employer] Other Urinalysis 1.015 1.005-<=1. 025 [facility] Other Urinalysis Negative NEGATIVE/ TRACE mg/dl [facility] Other Urinalysis 0.2 EU/dl 0.2 - 1.0 EU/dl [facility] Other Urinalysis SMALL Abnormal NEGATIVE [facility] Other Bilirubin Ql (U) Negative Normal NEGATIVE [employer] [facility] Other Comment on above: Performed By: #### U A #### [facility] [address] [place] [address] Dr. Juan Zamarripa Clarity (U) CLEAR Normal CLEAR [facility] Other Comment on above: Performed By: #### U A #### [facility] [address] [place] [address] Dr. Juan Zamarripa Color (U) LT. YELLOW Normal YELLOW [facility] Other Comment on above: Performed By: #### U A #### [facility] [address] [place] [address] Dr. Juan Zamarripa Hemoglobin Ql (U) Negative Normal NEGATIVE [employer] [facility] Other Comment on above: Performed By: #### U A #### [facility] [address] [place] [address] Dr. Juan Zamarripa Ketones Ql (U) Negative Normal NEGATIVE [employer] [facility] Other Comment on above: Performed By: #### U A #### [facility] [address] [place] [address] Dr. Juan Zamarripa Nitrite Ql (U) Negative Normal NEGATIVE [employer] Other Comment on above: Performed By: #### U A #### [facility] [address] [place] [address] Dr. Juan Zamarripa pH (U) 6.0 [pH] Normal 5-9 [employer] Other Comment on above: Performed By: #### U A #### [facility] [address] [place] [address] Dr. Juan Zamarripa CULTURE URINEon 04-25-2022 CULTURE [...] F Nitrofurantoin <=16 S F Normal [facility] Comment on above: Performed By: #### A 1C #### [facility] [address] [place] [address] Dr. Juan Zamarripa TL by IFAon 04-24-2022 Antinuclear Antibodies, IFA Positive Abnormal [facility] Comment on above: Result Comment: Nega tive <1:80 Borderline 1:80 Positive >1:80 Performed By: #### L IPA, HSTROPN, TSH, CMP #### [facility] [address] [place] [address] Dr. Juan Zamarripa Centriole Pattern Normal [facility] Comment on above: Performed By: #### L IPA, HSTROPN, TSH, CMP #### [facility] [address] [place], [place] [id number] Dr. Juan Zamarripa Centromere Pattern Normal [facility] Comment on above: Performed By: #### L IPA, HSTROPN, TSH, CMP #### [facility] [address] [place] [address] Dr. Juan Zamarripa Homogeneous Pattern 1:160 Critically high The [facility] Comment on above: Result Comment: ICAP nomenclature: AC-1 Performed By: #### L IPA, HSTROPN, TSH, CMP #### [facility] [address], [place] [address] Dr. Juan Zamarripa Midbody Pattern Normal [facility] Comment on above: Performed By: #### L IPA, HSTROPN, TSH, CMP #### [facility] [address], [place] [address] Dr. Juan Zamarripa Note: Comment Normal [facility] Comment on above: Result Comment: For [...] titers Nucleosomes, Histones Drug-induced SLE Speckled Sm, FINAL ASSEMBLER, SCL-70, SLE,MCTD,PSS (diffuse form), SS-A/SS-B Sjogrens Nucleolar SCL-70, PM-1/SCL High titers Scleroderma, PM/DM Centromere Centromere PSS (limited form) w/Crest syndrome variable Nuclear Dot [id number] Primary Biliary Cirrhosis Nuclear GP210, Primary Biliary Cirrhosis Membrane trinity A,B,C Performed By: #### L IPA, HSTROPN, TSH, CMP #### [facility] [address] [place] [address] Dr. Juan Zamarripa Nuclear Dot Pattern Normal [facility] Comment on above: Performed By: #### L IPA, HSTROPN, TSH, CMP #### [facility] [address] [place] [address] Dr. Juan Zamarripa Nuclear Membrane Pattern Normal [facility] Comment on above: Performed By: #### L IPA, HSTROPN, TSH, CMP #### [facility] [address] [place] [address] Dr. Juan Zamarripa Nucleolar Pattern Normal [facility] Comment on above: Performed By: #### L IPA, HSTROPN, TSH, CMP #### [facility] [address] [place] [address] Dr. Juan Zamarripa PCNA Pattern Normal [facility] Comment on above: Performed By: #### L IPA, HSTROPN, TSH, CMP #### [facility] [address] [place] [address] Dr. Juan Zamarripa Speckled Pattern 1:160 Critically high The [facility] Comment on above: Result Comment: ICAP nomenclature: AC-2,4,5,29 Performed By: #### L IPA, HSTROPN, TSH, CMP #### [facility] [address] [place] [address] Dr. Juan Zamarripa Spindle Apparatus Pattern Normal [facility] Comment on above: Performed By: #### L IPA, HSTROPN, TSH, CMP #### [facility] [address] [place] [address] Dr. Juan Zamarripa RHEUMATOID FACTORon 04-24-19 RA Latex Turbid. <10.0 Normal <14.0 [facility] Comment on above: Performed By: #### L IPA, HSTROPN, TSH, CMP #### [facility] [address] [place] [address] Dr. Juan Zamarripa CBC AUTO DIFFon 04-23-2022 BASO # 0.0 103/ul Normal 0.0-0.1 [facility] Comment on above: Performed By: #### C BC #### [facility] [address] [place] [address] Dr. Juan Zamarripa Basophils/100 WBC (Bld) 0.4 % Normal 0.2-2.0 [facility] Comment on above: Performed By: #### C BC #### [facility] [address] [place] [address] Dr. Juan Zamarripa EO # 0.1 103/ul Normal 0.0-0.7 [facility] Comment on above: Performed By: #### C BC #### [facility] [address] [place] [address] Dr. Juan Zamarripa Eosinophils/100 WBC (Bld) 1.8 % Normal 0.9-7.0 [facility] Comment on above: Performed By: #### C BC #### [facility] [address] [place] [address] Dr. Juan Zamarripa Erythrocyte distribution width (RBC) [Ratio] 12.6 % Normal 11.0-15.0 [facility] Comment on above: Performed By: #### C BC #### [facility] [address] [place] [address] Dr. Juan Zamarripa Hematocrit (Bld) [Volume fraction] 36.9 % Normal 36.0-48.0 [facility] Comment on above: Performed By: #### C BC #### [facility] [address] [place] [address] Dr. Juan Zamarripa Hemoglobin (Bld) [Mass/Vol] 12.6 g/dL Normal 12.0-16.0 [facility] Comment on above: Performed By: #### C BC #### [facility] [address] [place] [address] Dr. Juan Zamarripa IG # 0.02 10e3/ul Normal 0.00-0.03 [facility] Comment on above: Performed By: #### C BC #### [facility] [address] [place] [address] Dr. Juan Zamarripa IG % 0.3 % Normal 0.0-0.5 [facility] Comment on above: Performed By: #### C BC #### [facility] [address] [place] [address] Dr. Juan Zamarripa LYMPH # 3.3 103/ul Normal 1.2-3.8 [facility] Comment on above: Performed By: #### C BC #### [facility] [address] [place] [address] Dr. Juan Zamarripa Lymphocytes/100 WBC (Bld) 42.9 % Normal 20.5-60.0 [facility] Comment on above: Performed By: #### C BC #### [facility] [address] [place] [address] Dr. Juan Zamarripa MANUAL DIFF REQ NO Normal [facility] Comment on above: Performed By: #### C BC #### [facility] [address] [place] [address] Dr. Juan Zamarripa MCH (RBC) [Entitic mass] 31.2 pg Normal 26.7-34.0 [facility] Comment on above: Performed By: #### C BC #### [facility] [address] [place] [address] Dr. Juan Zamarripa MCHC (RBC) [Mass/Vol] 34.1 g/dL Normal 29.9-35.2 [facility] Comment on above: Performed By: #### C BC #### [facility] [address] [place] [address] Dr. Juan Zamarripa MCV (RBC) [Entitic vol] 91.3 fL Normal 81.0-99.0 [facility] Comment on above: Performed By: #### C BC #### [facility] [address] [place] [address] Dr. Juan Zamarripa MONO # 0.3 103/ul Normal 0.3-0.8 [facility] Comment on above: Performed By: #### C BC #### [facility] [address] [place] [address] Dr. Juan Zamarripa Monocytes/100 WBC (Bld) 4.4 % Normal 1.7-12.0 [facility] Comment on above: Performed By: #### C BC #### [facility] [address] [place] [address] Dr. Juan Zamarripa NEUT # 3.9 103/ul Normal 1.4-6.5 [facility] Comment on above: Performed By: #### C BC #### [facility] [address] [place] [address] Dr. Juan Zamarripa Neutrophils/100 WBC (Bld) 50.2 % Normal 43.0-75.0 [facility] Comment on above: Performed By: #### C BC #### [facility] [address] [place] [address] Dr. Juan Zamarripa Platelet mean volume (Bld) [Entitic vol] 9.0 fL Critically low 9.5-13.5 [facility] Comment on above: Performed By: #### C BC #### [facility] [address] [place] [address] Dr. Juan Zamarripa PLT 158 103/ul Normal 150-450 [facility] Comment on above: Performed By: #### C BC #### [facility] [address] [place] [address] Dr. Juan Zamarripa RBC 4.04 106/ul Critically low 4.20-5.40 [facility] Comment on above: Performed By: #### C BC #### [facility] [address] [place] [address] Dr. Juan Zamarripa WBC 7.8 103/ul Normal 4.0-11.0 [facility] Comment on above: Performed By: #### C BC #### [facility] [address] [place] [address] [address] Juan Zamarripa CULTURE BLOODon 04-23-2022 Microscopic examination of blood, culture Culture Observations: NO GROWTH AT 5 DAYS. Normal [facility] Comment on above: Performed By: #### A 1C #### [facility] [address] [place] [address] Dr. Juan Zamarripa PROF 14(COMP METB)on 023 Albumin [Mass/Vol] 4.0 g/dL Normal 3.4-5.[address] [facility] Comment on above: Performed By: #### L IPA, HSTROPN, TSH, CMP #### [facility] [address] [place] [address] Dr. Juan Zamarripa Albumin/Globulin [Mass ratio] 1.0 {ratio} Normal [facility] Comment on above: Performed By: #### L IPA, HSTROPN, TSH, CMP #### [facility] [address] [place] [address] Dr. Juan Zamarripa ALP [Catalytic activity/Vol] 87 U/L Normal 46-116 [facility] Comment on above: Performed By: #### L IPA, HSTROPN, TSH, CMP #### [facility] [address] [place] [address] Dr. Juan Zamarripa ALT [Catalytic activity/Vol] 78 U/L Critically high 14-59 [facility] Comment on above: Performed By: #### L IPA, HSTROPN, TSH, CMP #### [facility] [address] [place] [address] [address] Juan Zamarripa Anion gap [Moles/Vol] 12.4 mmol/L Normal [facility] Comment on above: Performed By: #### L IPA, HSTROPN, TSH, CMP #### [facility] [address] [place] [address] [address] Juan Zamarripa AST [Catalytic activity/Vol] 39 U/L Critically high 15-37 [facility] Comment on above: Performed By: #### L IPA, HSTROPN, TSH, CMP #### [facility] [address] [place] [address] [address] Juan Zamarripa Bilirubin [Mass/Vol] 0.7 mg/dL Normal 0.2-1.0 [facility] Comment on above: Performed By: #### L IPA, HSTROPN, TSH, CMP #### [facility] [address] [place] [address] Dr. Juan Zamarripa Calcium [Mass/Vol] 9.6 mg/dL Normal 8.5-10.[address] [facility] Comment on above: Performed By: #### L IPA, HSTROPN, TSH, CMP #### [facility] [address] [place] [address] Dr. Juan Zamarripa Chloride [Moles/Vol] 101 mmol/L Normal 98-107 [facility] Comment on above: Performed By: #### L IPA, HSTROPN, TSH, CMP #### [facility] [address] [place] [address] Dr. Juan Zamarripa CO2 [Moles/Vol] 29.5 mmol/L Normal 21.0-32.0 [facility] Comment on above: Performed By: #### L IPA, HSTROPN, TSH, CMP #### [facility] [address] [place] [address] Dr. Juan Zamarripa Creatinine [Mass/Vol] 0.84 mg/dL Normal 0.55-1.02 [facility] Comment on above: Performed By: #### L IPA, HSTROPN, TSH, CMP #### [facility] [address] [place] [address] [address] Juan Zamarripa EGFR-AF PALESTINIAN >60 Normal >=60 [facility] Comment on above: Performed By: #### L IPA, HSTROPN, TSH, CMP #### [facility] [address] [place] [address] [address] Juan Zamarripa EGFR-NON AF PALESTINIAN >60 Normal >=60 [facility] Comment on above: Performed By: #### L IPA, HSTROPN, TSH, CMP #### [facility] [address] [place] [address] [address] Juan Zamarripa Globulin (S) [Mass/Vol] 4.0 g/dL Normal [facility] Comment on above: Performed By: #### L IPA, HSTROPN, TSH, CMP #### [facility] [address] [place] [address] [address] Juan Zamarripa Glucose [Mass/Vol] 208 mg/dL Critically high 74-106 [facility] Comment on above: Performed By: #### L IPA, HSTROPN, TSH, CMP #### [facility] [address] [place] [address] [address] Juan Zamarripa Potassium [Moles/Vol] 3.9 mmol/L Normal 3.5-5.1 [facility] Comment on above: Performed By: #### L IPA, HSTROPN, TSH, CMP #### [facility] [address] [place] [address] [address] Juan Zamarripa Protein [Mass/Vol] 8.0 g/dL Normal 6.4-8.[address] [facility] Comment on above: Performed By: #### L IPA, HSTROPN, TSH, CMP #### [facility] [address] [place] [address] [address] Juan Zamarripa Sodium [Moles/Vol] 139 mmol/L Normal 136-[address] [facility] Comment on above: Performed By: #### L IPA, HSTROPN, TSH, CMP #### [facility] [address] [place] [address] [address] Juan Zamarripa Urea nitrogen [Mass/Vol] 15.0 mg/dL Normal 7.0-18.0 [facility] Comment on above: Performed By: #### L IPASUZIETRZEKE, TSH, CMP #### [facility] [address] [place] [address] Dr. Juan Zamarripa Urea nitrogen/Creatinine [Mass ratio] 17.9 mg/mg Normal [facility] Comment on above: Performed By: #### L LAKISHA MCNEIL, TSH, CMP #### [facility] [address] [place] [address] Dr. Juan Zamarripa SED RATE WESTERGRENon 2022 SED RATE 26 mm/hr Normal <=30 [facility] Comment on above: Performed By: #### L LAKISHA MCNEIL, RADHA, CMP #### [facility] [address] [place] [address] Dr. Juan Zamarripa CULTURE BLOODon 04-18-2022 Microscopic [...] C Trimethoprim/Sulfamethox azole <=10 S C Normal [facility] Comment on above: Performed By: #### A 1C #### [facility] [address] [place] [address] Dr. Juan Zamarripa CBC AUTO DIFFon 04-13-2022 BASO # 0.1 103/ul Normal 0.0-0.1 [facility] Comment on above: Performed By: #### C BC #### [facility] [address] [place] [address] [address] uJan Zamarripa Basophils/100 WBC (Bld) 0.6 % Normal 0.2-2.0 [facility] Comment on above: Performed By: #### C BC #### [facility] [address] [place] [address] [address] Juan Zamarripa EO # 0.2 103/ul Normal 0.0-0.7 [facility] Comment on above: Performed By: #### C BC #### [facility] [address] [place] [address] Dr. Juan Zamarripa Eosinophils/100 WBC (Bld) 1.6 % Normal 0.9-7.0 [facility] Comment on above: Performed By: #### C BC #### [facility] [address] [place] [address] Dr. Juan Zamarripa Erythrocyte distribution width (RBC) [Ratio] 12.6 % Normal 11.0-15.0 [facility] Comment on above: Performed By: #### C BC #### [facility] [address] [place] [address] Dr. Juan Zamarripa Hematocrit (Bld) [Volume fraction] 36.1 % Normal 36.0-48.0 [facility] Comment on above: Performed By: #### C BC #### [facility] [address] [place] [address] Dr. Juan Zamarripa Hemoglobin (Bld) [Mass/Vol] 12.5 g/dL Normal 12.0-16.0 [facility] Comment on above: Performed By: #### C BC #### [facility] [address] [place] [address] Dr. Juan Zamarripa IG # 0.02 10e3/ul Normal 0.00-0.03 [facility] Comment on above: Performed By: #### C BC #### [facility] [address] [place] [address] Dr. Juan Zamarripa IG % 0.2 % Normal 0.0-0.5 [facility] Comment on above: Performed By: #### C BC #### [facility] [address] [place] [address] [address] Juan Zamarripa LYMPH # 4.8 103/ul Critically high 1.2-3.8 [facility] Comment on above: Performed By: #### C BC #### [facility] [address] [place] [address] [address] Juan Zamarripa Lymphocytes/100 WBC (Bld) 49.6 % Normal 20.5-60.0 [facility] Comment on above: Performed By: #### C BC #### [facility] [address] [place] [address] Dr. Juan Zamarripa MANUAL DIFF REQ NO Normal [facility] Comment on above: Performed By: #### C BC #### [facility] [address] [place] [address] Dr. Juan Zamarripa MCH (RBC) [Entitic mass] 31.3 pg Normal 26.7-34.0 [facility] Comment on above: Performed By: #### C BC #### [facility] [address] [place] [address] Dr. Juan Zamarripa MCHC (RBC) [Mass/Vol] 34.6 g/dL Normal 29.9-35.2 [facility] Comment on above: Performed By: #### C BC #### [facility] [address] [place] [address] Dr. Juan Zamarripa MCV (RBC) [Entitic vol] 90.3 fL Normal 81.0-99.0 [facility] Comment on above: Performed By: #### C BC #### [facility] [address] [place] [address] Dr. Juan Zamarripa MONO # 0.5 103/ul Normal 0.3-0.8 [facility] Comment on above: Performed By: #### C BC #### [facility] [address] [place] [address] Dr. Juan aZmarripa Monocytes/100 WBC (Bld) 4.8 % Normal 1.7-12.0 [facility] Comment on above: Performed By: #### C BC #### [facility] [address] [place] [address] [address] Juan Zamarripa NEUT # 4.2 103/ul Normal 1.4-6.5 [facility] Comment on above: Performed By: #### C BC #### [facility] [address] [place] [address] Dr. Juan Zamarripa Neutrophils/100 WBC (Bld) 43.2 % Normal 43.0-75.0 [facility] Comment on above: Performed By: #### C BC #### [facility] [address] [place] [address] Dr. Juan Zamarripa Platelet mean volume (Bld) [Entitic vol] 9.5 fL Normal 9.5-13.5 [facility] Comment on above: Performed By: #### C BC #### [facility] [address] [place] [address] Dr. Juan Zamarripa PLT 149 103/ul Critically low 150-450 [facility] Comment on above: Performed By: #### C BC #### [facility] [address] [place] [address] Dr. Juan Zamarripa RBC 4.00 106/ul Critically low 4.20-5.40 [facility] Comment on above: Performed By: #### C BC #### [facility] [address] [place] [address] Dr. Juan Zamarripa WBC 9.6 103/ul Normal 4.0-11.0 [facility] Comment on above: Performed By: #### C BC #### [facility] [address] [place] [address] Dr. Juan Zamarripa PROF CHEM 8 (BAS METB)on Anion gap [Moles/Vol] 11.4 mmol/L Normal [facility] Comment on above: Performed By: #### L IPA, HSTROPN, TSH, CMP #### [facility] [address] [place] [address] Dr. Juan Zamarripa Calcium [Mass/Vol] 8.7 mg/dL Normal 8.5-10.[address] [facility] Comment on above: Performed By: #### L IPA, HSTROPN, TSH, CMP #### [facility] [address] [place] [address] [address] Juan Zamarripa Chloride [Moles/Vol] 102 mmol/L Normal 98-107 [facility] Comment on above: Performed By: #### L IPA, HSTROPN, TSH, CMP #### [facility] [address] [place] [address] Dr. Juan Zamarripa CO2 [Moles/Vol] 28.5 mmol/L Normal 21.0-32.0 [facility] Comment on above: Performed By: #### L IPA, HSTROPN, TSH, CMP #### [facility] [address] [address] [address] Juan Zamarripa Creatinine [Mass/Vol] 0.88 mg/dL Normal 0.55-1.02 [facility] Comment on above: Performed By: #### L IPA, HSTROPN, TSH, CMP #### [facility] [address] [place] [address] Dr. Juan Zamarripa EGFR-AF PALESTINIAN >60 Normal >=60 [facility] Comment on above: Performed By: #### L IPA, HSTROPN, TSH, CMP #### [facility] [address] [place] [address] Dr. Juan Zamarripa EGFR-NON AF PALESTINIAN >60 Normal >=60 [facility] Comment on above: Performed By: #### L IPA, HSTROPN, TSH, CMP #### [facility] [address] [address] [address] Juan Zamarripa Glucose [Mass/Vol] 129 mg/dL Critically high 74-106 [facility] Comment on above: Performed By: #### L IPA, HSTROPN, TSH, CMP #### [facility] [address] [place] [address] Dr. Juan Zamarripa Potassium [Moles/Vol] 3.9 mmol/L Normal 3.5-5.1 [facility] Comment on above: Performed By: #### L IPA, HSTROPN, TSH, CMP #### [facility] [address] [place] [address] Dr. Juan Zamarripa Sodium [Moles/Vol] 138 mmol/L Normal 136-[address] [facility] Comment on above: Performed By: #### L IPA, HSTROPN, TSH, CMP #### [facility] [address] [place] [address] Dr. Juan Zamarripa Urea nitrogen [Mass/Vol] 12.0 mg/dL Normal 7.0-18.0 [facility] Comment on above: Performed By: #### L IPA, HSTROPN, TSH, CMP #### [facility] [address] [place] [address] Dr. Juan Zamarripa Urea nitrogen/Creatinine [Mass ratio] 13.6 mg/mg Normal [facility] Comment on above: Performed By: #### L IPA, HSTROPN, TSH, CMP #### [facility] [address] [place] [address] Dr. Juan Zamarripa ACETONE SERUMon 04-12-2022 ACETONE Negative Normal NEGATIVE [facility] Comment on above: Performed By: #### C BC #### [facility] [address] [place] [address] Dr. Juan Zamarripa BLOOD CULTURE ID PANELon A. baumannii Not detected Normal NOT DETECTED [facility] Comment on above: Performed By: #### L IPA, HSTROPN, TSH, CMP #### [facility] [address] [place] [address] Dr. Juan Zamarripa Bacteriodes fragilis Not detected Normal NOT DETECTED [facility] Comment on above: Performed By: #### L IPA, HSTROPN, TSH, CMP #### [facility] [address] [place] [address] Dr. Juan Zamarripa BCID CONTROLS PASSED Normal [facility] Comment on above: Performed By: #### L IPA, HSTROPN, TSH, CMP #### [facility] [address] [place] [address] Dr. Juan Zamarripa BCIDBTHD BLOOD CULTURE BOTTLE INFORMATION Normal [facility] Comment on above: Performed By: #### L IPA, HSTROPN, TSH, CMP #### [facility] [address] [address] [address] Juan Zamarripa BCIDHD1 ANTIMICROBIAL RESIST ANCE GENES Normal [facility] Comment on above: Performed By: #### L IPA, HSTROPN, TSH, CMP #### [facility] [address] [address] [address] Juan Zamarripa BCIDHD2 SEE BELOW Normal [facility] Comment on above: Result Comment: Note : Antimicrobial resitance can occur via multiple mechanisms. A Not Detected result for the [employer] antomicrobial resistance gene assays does not indicate antimicrobial susceptibility. Subculturing is required for species identification and susceptibility testing of isolates. Performed By: #### L IPA, HSTROPN, TSH, CMP #### [facility] [address] [address] [address] Juan Zamarripa BCIDHD3 Positive Normal [facility] Comment on above: Performed By: #### L IPA, HSTROPN, TSH, CMP #### [facility] [address] [address] [address] Juan Zamarripa BCIDHD4 Negative Normal [facility] Comment on above: Performed By: #### L IPA, HSTROPN, TSH, CMP #### [facility] [address] [address] [address] Juan Zamarripa BCIDHD5 YEAST Normal [facility] Comment on above: Performed By: #### L IPA, HSTROPN, TSH, CMP #### [facility] [address] [address] [address] Juan Zamarripa Bottle Set: Set 1 Normal [facility] Comment on above: Performed By: #### L IPA, HSTROPN, TSH, CMP #### [facility] [address] [address] [address] Juan Zamarripa Bottle: Anaerobic Normal [facility] Comment on above: Performed By: #### L IPA, HSTROPN, TSH, CMP #### [facility] [address] [address] [address] Juan Zamarripa C. neoformans/gattii Not detected Normal NOT DETECTED [facility] Comment on above: Performed By: #### L IPA, HSTROPN, TSH, CMP #### [facility] [address] [place] [address] Dr. Juan Zamarripa Mary Lou albicans Not detected Normal NOT DETECTED [facility] Comment on above: Performed By: #### L IPA, HSTROPN, TSH, CMP #### [facility] [address] [place] [address] Dr. Juan Zamarripa Mary Lou auris Not detected Normal NOT DETECTED [facility] Comment on above: Performed By: #### L IPA, HSTROPN, TSH, CMP #### [facility] [address] [place] [address] Dr. Juan Zamarripa Mary Lou glabrata Not detected Normal NOT DETECTED [facility] Comment on above: Performed By: #### L IPA, HSTROPN, TSH, CMP #### [facility] [address] [place] [address] Dr. Juan Zamarripa Mary Lou Krusei Not detected Normal NOT DETECTED [facility] Comment on above: Performed By: #### L IPA, HSTROPN, TSH, CMP #### [facility] [address] [place] [address] Dr. Juan Zamarripa Mary Lou Parapsilosis Not detected Normal NOT DETECTED [facility] Comment on above: Performed By: #### L IPA, HSTROPN, TSH, CMP #### [facility] [address] [place] [address] Dr. Juan Zamarripa Mary Lou Tropicalis Not detected Normal NOT DETECTED [facility] Comment on above: Performed By: #### L IPA, HSTROPN, TSH, CMP #### [facility] [address] [place] [address] Dr. Juan Zamarripa CTX-M Resistant Gene Not Applicable Normal NOT DETECTED [facility] Comment on above: Performed By: #### L IPA, HSTROPN, TSH, CMP #### [facility] [address] [place] [address] Dr. Juan Zamarripa E. Cloacae complex Not detected Normal NOT DETECTED [facility] Comment on above: Performed By: #### L IPA, HSTROPN, TSH, CMP #### [facility] [address] [place] [address] Dr. Juan Zamarripa E. faecalis Not detected Normal NOT DETECTED [facility] Comment on above: Performed By: #### L IPA, HSTROPN, TSH, CMP #### [facility] [address] [place] [address] Dr. Juan Zamarripa E. faecium Not detected Normal NOT DETECTED [facility] Comment on above: Performed By: #### L IPA, HSTROPN, TSH, CMP #### [facility] [address] [place] [address] Dr. Juan Zamarripa Enterobacteriaceae Not detected Normal NOT DETECTED [facility] Comment on above: Performed By: #### L IPA, HSTROPN, TSH, CMP #### [facility] [address] [place] [address] Dr. Juan Zamarripa Escherichia coli Not detected Normal NOT DETECTED [facility] Comment on above: Performed By: #### L IPA, HSTROPN, TSH, CMP #### [facility] [address] [place] [address] Dr. Juan Zamarripa H. influenzae Not detected Normal NOT DETECTED [facility] Comment on above: Performed By: #### L IPA, HSTROPN, TSH, CMP #### [facility] [address] [place] [address] Dr. Juan Zamarripa IMP Resistant Gene Not Applicable Normal NOT DETECTED [facility] Comment on above: Performed By: #### L IPA, HSTROPN, TSH, CMP #### [facility] [address] [place] [address] Dr. Juan Zamarripa K. oxytoca Not detected Normal NOT DETECTED [facility] Comment on above: Performed By: #### L IPA, HSTROPN, TSH, CMP #### [facility] [address] [place] [address] Dr. Juan Zamarripa K. pneumoniae Not detected Normal NOT DETECTED [facility] Comment on above: Performed By: #### L IPA, HSTROPN, TSH, CMP #### [facility] [address] [place] [address] Dr. Juan Zamarripa Klebsiella aerogenes Not detected Normal NOT DETECTED [facility] Comment on above: Performed By: #### L IPA, HSTROPN, TSH, CMP #### [facility] [address] [place] [address] Dr. Juan Zamarripa KPC Resistant Gene Not Applicable Normal NOT DETECTED [facility] Comment on above: Performed By: #### L IPA, HSTROPN, TSH, CMP #### [facility] [address] [place] [address] Dr. Juan Zamarripa List. monocytogenes Not detected Normal NOT DETECTED [facility] Comment on above: Performed By: #### L IPA, HSTROPN, TSH, CMP #### [facility] [address] [place] [address] Dr. Juan Zamarripa Mcr-1 Resistant Gene Not Applicable Normal NOT DETECTED [facility] Comment on above: Performed By: #### L IPA, HSTROPN, TSH, CMP #### [facility] [address] [place] [address] Dr. Juan Zamarripa mecA/C Not Applicable Normal NOT DETECTED [facility] Comment on above: Performed By: #### L IPA, HSTROPN, TSH, CMP #### [facility] [address] [place] [address] Dr. Juan Zamarripa mecA/C MREJ Not Applicable Normal NOT DETECTED [facility] Comment on above: Performed By: #### L IPA, HSTROPN, TSH, CMP #### [facility] [address] [place] [address] Dr. Juan Zamarripa N. meningitidis Not detected Normal NOT DETECTED [facility] on above: Performed By: #### L IPA, HSTROPN, TSH, CMP #### [facility] [address] [place] [address] Dr. Juan Zamarripa NDM Resistant Gene Not Applicable Normal NOT DETECTED [facility] Comment on above: Performed By: #### L IPA, HSTROPN, TSH, CMP #### [facility] [address] [place] [address] Dr. Juan Zamarripa Oxa-48-like Not Applicable Normal NOT DETECTED [facility] Comment on above: Performed By: #### L IPA, HSTROPN, TSH, CMP #### [facility] [address] [address] [address] Juan Zamarripa Proteus Not detected Normal NOT DETECTED The [facility] Comment on above: Performed By: #### L IPA, HSTROPN, TSH, CMP #### [facility] [address] [address] [address] Juan Zamarripa Pseud. aeruginosa Not detected Normal NOT DETECTED [facility] Comment on above: Performed By: #### L IPA, HSTROPN, TSH, CMP #### [facility] [address] [address] [address] Juan Zamarripa S. maltophilia Not detected Normal NOT DETECTED [facility] Comment on above: Performed By: #### L IPA, HSTROPN, TSH, CMP #### [facility] [address] [place] [address] Dr. Juan Zamarripa Salmonella Not detected Normal NOT DETECTED [facility] Comment on above: Performed By: #### L IPA, HSTROPN, TSH, CMP #### [facility] [address] [place] [address] Dr. Juan Zamarripa Seratia marcescens Not detected Normal NOT DETECTED [facility] Comment on above: Performed By: #### L IPA, HSTROPN, TSH, CMP #### [facility] [address] [address] [address] Juan Zamarripa Site: Rt Ac Normal [facility] Comment on above: Performed By: #### L IPA, HSTROPN, TSH, CMP #### [facility] [address] [address] [address] Juan Zamarripa Staph. aureus Not detected Normal NOT DETECTED [facility] Comment on above: Performed By: #### L IPA, HSTROPN, TSH, CMP #### [facility] [address] [address] [address] Juan Zamarripa Staph. epidermidis Not detected Normal NOT DETECTED [facility] Comment on above: Performed By: #### L IPA, HSTROPN, TSH, CMP #### [facility] [address] [address] [address] Juan Zamarripa Staph. lugdunensis Not detected Normal NOT DETECTED [facility] Comment on above: Performed By: #### L IPA, HSTROPN, TSH, CMP #### [facility] [address] [address] [address] Juan Zamarripa Staphylococcus Detected Critically abnormal NOT DETECTED [facility] Comment on above: Performed By: #### L IPA, HSTROPN, TSH, CMP #### [facility] [address] [address] [address] Juan Zamarripa Strep. agalactiae Not detected Normal NOT DETECTED [facility] Comment on above: Performed By: #### L IPA, HSTROPN, TSH, CMP #### [facility] [address] [place] [address] Dr. Juan Zamarripa Strep. pneumoniae Not detected Normal NOT DETECTED [facility] Comment on above: Performed By: #### L IPA, HSTROPN, TSH, CMP #### [facility] [address] [place] [address] Dr. Juan Zamarripa Strep. pyogenes Not detected Normal NOT DETECTED [facility] Comment on above: Performed By: #### L IPA, HSTROPN, TSH, CMP #### [facility] [address] [place] [address] Dr. Juan Zamarripa Streptococcus Not detected Normal NOT DETECTED [facility] Comment on above: Performed By: #### L IPA, HSTROPN, TSH, CMP #### [facility] [address] [address] [address] Juan Zamarripa Aleyda/B Resist. Gene Not Applicable Normal NOT DETECTED The [facility] Comment on above: Performed By: #### L IPA, HSTROPN, TSH, CMP #### [facility] [address] [place] [address] Dr. Juan Zamarripa VIM Resistant Gene Not Applicable Normal NOT DETECTED The [facility] Comment on above: Performed By: #### L IPA, HSTROPN, TSH, CMP #### [facility] [address] [place] [address] Dr. Juan Zamarripa CBC AUTO DIFFon 04-12-2022 BASO # 0.1 103/ul Normal 0.0-0.1 [facility] Comment on above: Performed By: #### L IPA, HSTROPN, TSH, CMP #### [facility] [address] [place] [address] Dr. Juan Zamarripa Basophils/100 WBC (Bld) 0.6 % Normal 0.2-2.0 [facility] Comment on above: Performed By: #### L IPA, HSTROPN, TSH, CMP #### [facility] [address] [place] [address] Dr. Juan Zamarripa EO # 0.1 103/ul Normal 0.0-0.7 [facility] Comment on above: Performed By: #### L IPA, HSTROPN, TSH, CMP #### [facility] [address] [place] [address] Dr. Juan Zamarripa Eosinophils/100 WBC (Bld) 0.9 % Normal 0.9-7.0 [facility] Comment on above: Performed By: #### L IPA, HSTROPN, TSH, CMP #### [facility] [address] [place] [address] Dr. Juan Zamarripa Erythrocyte distribution width (RBC) [Ratio] 12.8 % Normal 11.0-15.0 [facility] Comment on above: Performed By: #### L IPA, HSTROPN, TSH, CMP #### [facility] [address] [place] [address] Dr. Juan Zamarripa Hematocrit (Bld) [Volume fraction] 42.9 % Normal 36.0-48.0 [facility] Comment on above: Performed By: #### L IPA, HSTROPN, TSH, CMP #### [facility] [address] [place] [address] Dr. Juan Zamarripa Hemoglobin (Bld) [Mass/Vol] 15.1 g/dL Normal 12.0-16.0 [facility] Comment on above: Performed By: #### L IPA, HSTROPN, TSH, CMP #### [facility] [address] [address] [address] Juan Zamarripa IG # 0.04 10e3/ul Critically high 0.00-0.03 [facility] Comment on above: Performed By: #### L IPA, HSTROPN, TSH, CMP #### [facility] [address] [place] [address] Dr. Juan Zamarripa IG % 0.3 % Normal 0.0-0.5 [facility] Comment on above: Performed By: #### L IPA, HSTROPN, TSH, CMP #### [facility] [address] [place] [address] Dr. Juan Zamarripa LYMPH # 5.0 103/ul Critically high 1.2-3.8 [facility] Comment on above: Performed By: #### L IPA, HSTROPN, TSH, CMP #### [facility] [address] [place] [address] Dr. Juan Zamarripa Lymphocytes/100 WBC (Bld) 43.6 % Normal 20.5-60.0 [facility] Comment on above: Performed By: #### L IPA, HSTROPN, TSH, CMP #### [facility] [address] [place] [address] Dr. Juan Zamarripa MANUAL DIFF REQ NO Normal [facility] Comment on above: Performed By: #### L IPA, HSTROPN, TSH, CMP #### [facility] [address] [place] [address] Dr. Juan Zamarripa MCH (RBC) [Entitic mass] 31.3 pg Normal 26.7-34.0 [facility] Comment on above: Performed By: #### L IPA, HSTROPN, TSH, CMP #### [facility] [address] [place] [address] Dr. Juan Zamarripa MCHC (RBC) [Mass/Vol] 35.2 g/dL Normal 29.9-35.2 [facility] Comment on above: Performed By: #### L IPA, HSTROPN, TSH, CMP #### [facility] [address] [place] [address] Dr. Juan Zamarripa MCV (RBC) [Entitic vol] 88.8 fL Normal 81.0-99.0 [facility] Comment on above: Performed By: #### L IPA, HSTROPN, TSH, CMP #### [facility] [address] [place] [address] Dr. Juan Zamarripa MONO # 0.6 103/ul Normal 0.3-0.8 [facility] Comment on above: Performed By: #### L IPA, HSTROPN, TSH, CMP #### [facility] [address] [place] [address] Dr. Juan Zamarripa Monocytes/100 WBC (Bld) 5.2 % Normal 1.7-12.0 [facility] Comment on above: Performed By: #### L IPA, HSTROPN, TSH, CMP #### [facility] [address] [place] [address] Dr. Juan Zamarripa NEUT # 5.7 103/ul Normal 1.4-6.5 [facility] Comment on above: Performed By: #### L IPA, HSTROPN, TSH, CMP #### [facility] [address] [place] [address] Dr. Juan Zamarripa Neutrophils/100 WBC (Bld) 49.4 % Normal 43.0-75.0 [facility] Comment on above: Performed By: #### L IPA, HSTROPN, TSH, CMP #### [facility] [address] [place] [address] Dr. Juan Zamarripa Platelet mean volume (Bld) [Entitic vol] 9.6 fL Normal 9.5-13.5 [facility] Comment on above: Performed By: #### L IPA, HSTROPN, TSH, CMP #### [facility] [address] [place] [address] Dr. Juan Zamarripa PLT 210 103/ul Normal 150-450 [facility] Comment on above: Performed By: #### L IPA, HSTROPN, TSH, CMP #### [facility] [address], [place] [address] Dr. Juan Zamarripa RBC 4.83 106/ul Normal 4.20-5.40 [facility] Comment on above: Performed By: #### L IPA, HSTROPN, TSH, CMP #### [facility] [address], [place] [address] Dr. Juan Zamarripa WBC 11.5 103/ul Critically high 4.0-11.0 [facility] Comment on above: Performed By: #### L IPA, HSTROPN, TSH, CMP #### [facility] [address] [place], [place] [address] ABD/PELV W CONon [...] CARO SIBLEY Date: 2022-04-12 16:53 Normal [facility] CULTURE BLOODon 04-12-2022 Microscopic examination of blood, culture Culture Observations: NO GROWTH AT 5 DAYS. Isolate 1 [id number] Normal [facility] Comment on above: Performed By: #### A 1C #### [facility] [address] [address] [address] Juan Zamarripa CULTURE URINEon 04-12-2022 CULTURE URINE Culture Observations : MODERATE GROWTH OF MIXED GENITAL ALDA. NO POTENTIAL PATHOGENS SEEN. Normal [facility] Comment on above: Performed By: #### U RCX #### [facility] [facility] [address] [place] [address] Dr. Juan Zamarripa Covid-19 PCR ([facility])on SARS-CoV-2 (COVID-19) RNA SUNNY+probe Ql (Unsp spec) Not detected Normal NOT DETECTED [facility] Comment on above: Result Comment: When [...] for this test is supported by the Group Product Manager of Health and Human Service's declaration that [...] #### L IPA, HSTROPN, TSH, CMP #### [facility] [address] [place] [address] Dr. Juan Zamarripa ER URINE PROFILEon 3 Bilirubin Ql (U) Negative Normal NEGATIVE [facility] Comment on above: Performed By: #### C BC #### [facility] [address] [place] [address] Dr. Juan Zamarripa Clarity (U) SL CLOUDY Abnormal CLEAR [facility] Comment on above: Performed By: #### C BC #### [facility] [address] [place] [address] Dr. Juan Zamarripa Color (U) LT. YELLOW Normal YELLOW [facility] Comment on above: Performed By: #### C BC #### [facility] [address] [place] [address] Dr. Juan Zamarripa ERUAHD A micrscopic examina tion will be performed if indicated. Normal [facility] Comment on above: Performed By: #### C BC #### [facility] [address] [place] [address] Dr. Juan Zamarripa Glucose Ql (U) 250 mg/dl Abnormal NEGATIVE [facility] Comment on above: Performed By: #### C BC #### [facility] [address] [place] [address] Dr. Juan Zamarripa Hemoglobin Ql (U) Negative Normal NEGATIVE [facility] Comment on above: Performed By: #### C BC #### [facility] [address] [place] [address] Dr. Juan Zamarripa Ketones Ql (U) TRACE Abnormal NEGATIVE [facility] Comment on above: Performed By: #### C BC #### [facility] [address] [place] [address] Dr. Juan Zamarripa LEUKOCYTES SMALL Abnormal NEGATIVE [facility] Comment on above: Performed By: #### C BC #### [facility] [address] [place] [address] Dr. Juan Zamarripa Nitrite Ql (U) Negative Normal NEGATIVE [facility] Comment on above: Performed By: #### C BC #### [facility] [address] [place] [address] Dr. Juan Zamarripa pH (U) 5.5 [pH] Normal 5-9 [facility] Comment on above: Performed By: #### C BC #### [facility] [address] [place] [address] Dr. Juan Zamarripa SPEC GRAVITY 1.030 Abnormal 1.005-<=1. 025 [facility] Comment on above: Performed By: #### C BC #### [facility] [address] [place] [address] Dr. Juan Zamarripa UA PROTEIN Negative Normal NEGATIVE/ TRACE [facility] Comment on above: Performed By: #### C BC #### [facility] [address] [place] [address] Dr. Juan Zamarripa UR MICRO IND INDICATED Normal [facility] Comment on above: Performed By: #### C BC #### [facility] [address] [place] [address] Dr. Juan Zamarripa Urobilinogen Qn (U) 0.2 {Amee'U}/dL Normal 0.2 - 1. 0 [facility] Comment on above: Performed By: #### C BC #### [facility] [address] [place] [address] Dr. Juan Zamarripa INFLUENZA A AND B AGon 04-12 [facility] BELOW Normal [facility] Comment on above: Result Comment: Nega tive for Flu A protein angiten. Infection due to Flu A cannot be ruled out. Flu A angiten in the sample may be below the detection limit of the test. Performed By: #### L IPA, HSTROPN, TSH, CMP #### [facility] [address] [place] [address] Dr. Juan Zamarripa INFLUBNEGH SEE BELOW Normal [facility] Comment on above: Result Comment: Nega tive for Flu B protein antigen. Infection due to Flu B cannot be ruled out. Flu B antigen in the sample may be below the detection limit of the test. Performed By: #### L IPA, HSTROPN, TSH, CMP #### [facility] [address] [place] [address] Dr. Juan Zamarripa INFLUENZA A AG Negative Normal NEGATIVE SEE COMMENT [facility] Comment on above: Performed By: #### L IPA, HSTROPN, TSH, CMP #### [facility] [address] [place] [address] Dr. Juan Zamarripa INFLUENZA B AG Negative Normal NEGATIVE SEE COMMENT [facility] Comment on above: Performed By: #### L IPA HSTROPN, TSH, CMP #### [facility] [address] [place] [address] Dr. Juan Zamarripa LACTATE/LACTIC ACIDon 2022 Lactate [Moles/Vol] 1.8 mmol/L Normal 0.4-1.9 [facility] Comment on above: Performed By: #### C BC #### [facility] [address] [place] [address] Dr. Juan Zamarripa Lactate [Moles/Vol] 3.1 mmol/L Critically high 0.4-1.9 [facility] Comment on above: Performed By: #### L EWA HSTROPN, TSH, CMP #### [facility] [address] [place] [address] Dr. Juan Zamarripa LIPASEon 04-12-2022 Lipase [Catalytic activity/Vol] 183.0 U/L Normal 73.0-393.0 [facility] Comment on above: Performed By: #### A 1C #### [facility] [address] [place] [address] Dr. Juan Zamarripa PH VENOUS BLOODon 04-12-2022 PCO2 VENOUS 42.9 mmHg Normal 40.0-52.0 [facility] Comment on above: Performed By: #### C BC #### [facility] [address] [place] [address] Dr. Juan Zamarripa pH VENOUS 7.383 Normal 7.330-7.43 0 [facility] Comment on above: Performed By: #### C BC #### [facility] [address] [place] [address] Dr. Juan Zamarripa PROF 14(COMP METB)on 023 Albumin [Mass/Vol] 4.3 g/dL Normal 3.4-5.[address] [facility] Comment on above: Performed By: #### A 1C #### [facility] [address] [place], [place] [id number] Dr. Juan Zamarripa Albumin/Globulin [Mass ratio] 1.0 {ratio} Normal [facility] Comment on above: Performed By: #### A 1C #### [facility] [address] [place] [address] Dr. Juan Zamarripa ALP [Catalytic activity/Vol] 96 U/L Normal 46-116 [facility] Comment on above: Performed By: #### A 1C #### [facility] [address] [place] [address] Dr. Juan Zamarripa ALT [Catalytic activity/Vol] 80 U/L Critically high 14-59 [facility] Comment on above: Performed By: #### A 1C #### [facility] [address] [place] [address] Dr. Juan Zamarripa Anion gap [Moles/Vol] 14.7 mmol/L Normal [facility] Comment on above: Performed By: #### A 1C #### [facility] [address] [place] [address] Dr. Juan Zamarripa AST [Catalytic activity/Vol] 45 U/L Critically high 15-37 [facility] Comment on above: Performed By: #### A 1C #### [facility] [address] [place] [address] Dr. Juan Zamarripa Bilirubin [Mass/Vol] 0.8 mg/dL Normal 0.2-1.0 [facility] Comment on above: Performed By: #### A 1C #### [facility] [address] [place] [address] Dr. Juan Zamarripa Calcium [Mass/Vol] 10.0 mg/dL Normal 8.5-10.[address] [facility] Comment on above: Performed By: #### A 1C #### [facility] [address] [place] [address] Dr. Juan Zamarripa Chloride [Moles/Vol] 99 mmol/L Normal 98-107 [facility] Comment on above: Performed By: #### A 1C #### [facility] [address] [place] [address] Dr. Juan Zamarripa CO2 [Moles/Vol] 26.4 mmol/L Normal 21.0-32.0 [facility] Comment on above: Performed By: #### A 1C #### [facility] [address] [place] [address] Dr. Juan Zamarripa Creatinine [Mass/Vol] 0.89 mg/dL Normal 0.55-1.02 [facility] Comment on above: Performed By: #### A 1C #### [facility] [address] [place] [address] Dr. Juan Zamarripa EGFR-AF PALESTINIAN >60 Normal >=60 [facility] Comment on above: Performed By: #### A 1C #### [facility] [address] [place] [address] [address] Juan Zamarripa EGFR-NON AF PALESTINIAN >60 Normal >=60 [facility] Comment on above: Performed By: #### A 1C #### [facility] [address] [place] [address] Dr. Juan Zamarripa Globulin (S) [Mass/Vol] 4.3 g/dL Normal [facility] Comment on above: Performed By: #### A 1C #### [facility] [address] [place] [address] Dr. Juan Zamarripa Glucose [Mass/Vol] 168 mg/dL Critically high 74-106 [facility] Comment on above: Performed By: #### A 1C #### [facility] [address] [place] [address] Dr. Juan Zamarripa Potassium [Moles/Vol] 4.1 mmol/L Normal 3.5-5.1 [facility] Comment on above: Performed By: #### A 1C #### [facility] [address] [place] [address] Dr. Juan Zamarripa Protein [Mass/Vol] 8.6 g/dL Critically high 6.4-8.2 [facility] Comment on above: Performed By: #### A 1C #### [facility] [address] [place] [address] Dr. Juan Zamarripa Sodium [Moles/Vol] 136 mmol/L Normal 136-[address] [facility] Comment on above: Performed By: #### A 1C #### [facility] [address] [place] [address] Dr. Juan Zamarripa Urea nitrogen [Mass/Vol] 18.0 mg/dL Normal 7.0-18.0 [facility] Comment on above: Performed By: #### A 1C #### [facility] [address] [place] [address] Dr. Juan Zamarripa Urea nitrogen/Creatinine [Mass ratio] 20.2 mg/mg Normal [facility] Comment on above: Performed By: #### A 1C #### [facility] [address] [place] [address] Dr. Juan Zamarripa TROPONIN, HIGH SENSITIVITYon 04-12-2022 HSTROP 4.9 pg/mL Normal 4.0-51.3 [facility] Comment on above: Result Comment: CUT- OFF POINTS HAVE BEEN ESTABLISHED BASED ON THE FOURTH UNIVERSAL DEFINITIONS OF MYOCARDIAL INFARCTION. THE UPPER REFERENCE LIMIT (URL) OF TROPONIN, DEFINED THE 99TH PERCENTILE OF cTnI DISTRIBUTION IN A REFERENCE POPULATION, HAS BEEN CONFIRMED THE DECISION THRESHOLD FOR IA DIAGNOSIS. Performed By: #### A 1C #### [facility] [address] [place] [address] Dr. Juan Zamarripa TSHon 04-12-2022 TSH 1.593 uIU/mL Normal 0.358-3.74 0 [facility] Comment on above: Performed By: #### C BC #### [facility] [address] [place] [address] Dr. Juan Zamarripa URINE MICROSCOPIC ONLYon BACTERIA SMALL Abnormal NONE SEEN [facility] Comment on above: Performed By: #### C BC #### [facility] [address] [place] [address] Dr. Juan Zamarripa Bacteria identified Cx Nom (U) INDICATED Normal [facility] Comment on above: Performed By: #### C BC #### [facility] [address] [place] [address] Dr. Juan Zamarripa CAST NONE SEEN Normal NONE SEEN [facility] Comment on above: Performed By: #### C BC #### [facility] [address] [place] [address] Dr. Juan Zamarripa Crystals LM Nom (Urine sed) NONE SEEN Normal NONE SEEN [facility] Comment on above: Performed By: #### C BC #### [facility] [address] [place] [address] Dr. Juan Zamarripa Epithelial cells LM Ql (Urine sed) FEW Abnormal NONE SEEN /RARE [facility] Comment on above: Performed By: #### C BC #### [facility] [address] [place] [address] Dr. Juan Zamarripa MUCOUS NONE SEEN Normal NONE SEEN [facility] Comment on above: Performed By: #### C BC #### [facility] [address] [place] [address] Dr. Juan Zamarripa RBC 0-2 Normal 0-2 [facility] Comment on above: Performed By: #### C BC #### [facility] [address] [place] [address] Dr. Juan Zamarripa WBC 2-5 Abnormal NONE SEEN [facility] Comment on above: Performed By: #### C BC #### [facility] [address] [place] [address] Dr. Juan Zamarripa XR CHEST 1 Von [...] JAZMINE DODSON Date: 2022-04-12 15:31 Normal [facility] CBC AUTO DIFFon 11-26-2021 BASO # 0.1 103/ul Normal 0.0-0.1 [facility] Comment on above: Performed By: #### L IPA, HSTROPN, TSH, CMP #### [facility] [address] [place] [address] Dr. Juan Zamarripa Basophils/100 WBC (Bld) 0.5 % Normal 0.2-2.0 [facility] Comment on above: Performed By: #### L IPA, HSTROPN, TSH, CMP #### [facility] [address] [place] [address] Dr. Juan Zamarripa EO # 0.1 103/ul Normal 0.0-0.7 [facility] Comment on above: Performed By: #### L IPA, HSTROPN, TSH, CMP #### [facility] [address] [place] [address] Dr. Juan Zamarripa Eosinophils/100 WBC (Bld) 1.1 % Normal 0.9-7.0 [facility] Comment on above: Performed By: #### L IPA, HSTROPN, TSH, CMP #### [facility] [address] [place] [address] Dr. Juan Zamarripa Erythrocyte distribution width (RBC) [Ratio] 12.5 % Normal 11.0-15.0 [facility] Comment on above: Performed By: #### L IPA, HSTROPN, TSH, CMP #### [facility] [address] [place] [address] Dr. Juan Zamarripa Hematocrit (Bld) [Volume fraction] 39.6 % Normal 36.0-48.0 [facility] Comment on above: Performed By: #### L IPA, HSTROPN, TSH, CMP #### [facility] [address] [place] [address] Dr. Juan Zamarripa Hemoglobin (Bld) [Mass/Vol] 13.7 g/dL Normal 12.0-16.0 [facility] Comment on above: Performed By: #### L IPA, HSTROPN, TSH, CMP #### [facility] [address] [place] [address] Dr. Juan Zamarripa IG # 0.04 10e3/ul Critically high 0.00-0.03 [facility] Comment on above: Performed By: #### L IPA, HSTROPN, TSH, CMP #### [facility] [address] [place] [address] Dr. Juan Zamarripa IG % 0.4 % Normal 0.0-0.5 [facility] Comment on above: Performed By: #### L IPA, HSTROPN, TSH, CMP #### [facility] [address] [place] [address] Dr. Juan Zamarripa LYMPH # 4.2 103/ul Critically high 1.2-3.8 [facility] Comment on above: Performed By: #### L IPA, HSTROPN, TSH, CMP #### [facility] [address] [place] [address] Dr. Juan Zamarripa Lymphocytes/100 WBC (Bld) 38.8 % Normal 20.5-60.0 [facility] Comment on above: Performed By: #### L IPA, HSTROPN, TSH, CMP #### [facility] [address] [place] [address] Dr. Juan Zamarripa MANUAL DIFF REQ NO Normal [facility] Comment on above: Performed By: #### L IPA, HSTROPN, TSH, CMP #### [facility] [address] [place] [address] Dr. Juan Zamarripa MCH (RBC) [Entitic mass] 32.2 pg Normal 26.7-34.0 [facility] Comment on above: Performed By: #### L IPA, HSTROPN, TSH, CMP #### [facility] [address] [place] [address] Dr. Juan Zamarripa MCHC (RBC) [Mass/Vol] 34.6 g/dL Normal 29.9-35.2 [facility] Comment on above: Performed By: #### L IPA, HSTROPN, TSH, CMP #### [facility] [address] [place] [address] Dr. Juan Zamarripa MCV (RBC) [Entitic vol] 93.0 fL Normal 81.0-99.0 [facility] Comment on above: Performed By: #### L IPA, HSTROPN, TSH, CMP #### [facility] [address] [place] [address] Dr. Juan Zamarripa MONO # 0.4 103/ul Normal 0.3-0.8 [facility] Comment on above: Performed By: #### L IPA, HSTROPN, TSH, CMP #### [facility] [address] [place] [address] Dr. Juan Zamarripa Monocytes/100 WBC (Bld) 3.9 % Normal 1.7-12.0 [facility] Comment on above: Performed By: #### L IPA, HSTROPN, TSH, CMP #### [facility] [address] [place] [address] Dr. Juan Zamarripa NEUT # 6.1 103/ul Normal 1.4-6.5 [facility] Comment on above: Performed By: #### L IPA, HSTROPN, TSH, CMP #### [facility] [address] [place] [address] Dr. Juan Zamarripa Neutrophils/100 WBC (Bld) 55.3 % Normal 43.0-75.0 [facility] Comment on above: Performed By: #### L IPA, HSTROPN, TSH, CMP #### [facility] [address] [place] [address] Dr. Juan Zamarripa Platelet mean volume (Bld) [Entitic vol] 9.6 fL Normal 9.5-13.5 [facility] Comment on above: Performed By: #### L IPA, HSTROPN, TSH, CMP #### [facility] [address] [place] [address] Dr. Juan Zamarripa PLT 187 103/ul Normal 150-450 [facility] Comment on above: Performed By: #### L IPA, HSTROPN, TSH, CMP #### [facility] [address] [place] [address] Dr. Juan Zamarripa RBC 4.26 106/ul Normal 4.20-5.40 [facility] Comment on above: Performed By: #### L IPA, HSTROPN, TSH, CMP #### [facility] [address] [place] [address] Dr. Juan Zamarripa WBC 10.9 103/ul Normal 4.0-11.0 [facility] Comment on above: Performed By: #### L IPA, HSTROPN, TSH, CMP #### [facility] [address] [place] [address] Dr. Juan Zamarripa Covid-19 PCR ([facility])on 11-07 SARS-CoV-2 (COVID-19) RNA SUNNY+probe Ql (Unsp spec) Not detected Normal NOT DETECTED [facility] Comment on above: Result Comment: When [...] for this test is supported by the Group Product Manager of Health and Human Service's declaration that [...] #### L IPA, HSTROPN, TSH, CMP #### [facility] [address] [place] [address] Dr. Juan Zamarripa LIPASEon 11-26-2021 Lipase [Catalytic activity/Vol] 140.0 U/L Normal 73.0-393.0 [facility] Comment on above: Performed By: #### L IPA, HSTROPN, TSH, CMP #### [facility] [address] [place] [address] Dr. Juan Zamarripa PROF 14(COMP METB)on 022 Albumin [Mass/Vol] 4.2 g/dL Normal 3.4-5.[address] [facility] Comment on above: Performed By: #### L IPA, HSTROPN, TSH, CMP #### [facility] [address] [place] [address] Dr. Juan Zamarripa Albumin/Globulin [Mass ratio] 1.1 {ratio} Normal [facility] Comment on above: Performed By: #### L IPA, HSTROPN, TSH, CMP #### [facility] [address] [address] [address] Juan Zamarripa ALP [Catalytic activity/Vol] 93 U/L Normal 46-116 [facility] Comment on above: Performed By: #### L IPA, HSTROPN, TSH, CMP #### [facility] [address] [address] [address] Juan Zamarripa ALT [Catalytic activity/Vol] 74 U/L Critically high 14-59 [facility] Comment on above: Performed By: #### L IPA, HSTROPN, TSH, CMP #### [facility] [address] [place] [address] Dr. Juan Zamarripa Anion gap [Moles/Vol] 15.6 mmol/L Normal [facility] Comment on above: Performed By: #### L IPA, HSTROPN, TSH, CMP #### [facility] [address] [address] [address] Juan Zamarripa AST [Catalytic activity/Vol] 46 U/L Critically high 15-37 [facility] Comment on above: Performed By: #### L IPA, HSTROPN, TSH, CMP #### [facility] [address] [place] [address] Dr. Juan Zamarripa Bilirubin [Mass/Vol] 0.6 mg/dL Normal 0.2-1.0 [facility] Comment on above: Performed By: #### L IPA, HSTROPN, TSH, CMP #### [facility] [address] [place] [address] Dr. Juan Zamarripa Calcium [Mass/Vol] 9.7 mg/dL Normal 8.5-10.[address] [facility] Comment on above: Performed By: #### L IPA, HSTROPN, TSH, CMP #### [facility] [address] [place] [address] Dr. Juan Zamarripa Chloride [Moles/Vol] 100 mmol/L Normal 98-107 [facility] Comment on above: Performed By: #### L IPA, HSTROPN, TSH, CMP #### [facility] [address] [address] [address] Juan Zamarripa CO2 [Moles/Vol] 25.6 mmol/L Normal 21.0-32.0 [facility] Comment on above: Performed By: #### L IPA, HSTROPN, TSH, CMP #### [facility] [address] [place] [address] Dr. Juan Zamarripa Creatinine [Mass/Vol] 0.89 mg/dL Normal 0.55-1.02 [facility] Comment on above: Performed By: #### L IPA, HSTROPN, TSH, CMP #### [facility] [address] [place] [address] Dr. Juan Zamarripa EGFR-AF PALESTINIAN >60 Normal >=60 [facility] Comment on above: Performed By: #### L IPA, HSTROPN, TSH, CMP #### [facility] [address] [place] [address] Dr. Juan Zamarripa EGFR-NON AF PALESTINIAN >60 Normal >=60 [facility] Comment on above: Performed By: #### L IPA, HSTROPN, TSH, CMP #### [facility] [address] [place] [address] Dr. Juan Zamarripa Globulin (S) [Mass/Vol] 3.7 g/dL Normal [facility] Comment on above: Performed By: #### L IPA, HSTROPN, TSH, CMP #### [facility] [address] [place] [address] Dr. Juan Zamarripa Glucose [Mass/Vol] 183 mg/dL Critically high 74-106 [facility] Comment on above: Performed By: #### L IPA, HSTROPN, TSH, CMP #### [facility] [address] [place] [address] Dr. Juan Zamarripa Potassium [Moles/Vol] 4.2 mmol/L Normal 3.5-5.1 [facility] Comment on above: Performed By: #### L IPA, HSTROPN, TSH, CMP #### [facility] [address] [address] [address] Juan Zamarripa Protein [Mass/Vol] 7.9 g/dL Normal 6.4-8.2 [facility] Comment on above: Performed By: #### L IPA, HSTROPN, TSH, CMP #### [facility] [address] [address] [address] Juan Zamarripa Sodium [Moles/Vol] 137 mmol/L Normal 136-145 [facility] Comment on above: Performed By: #### L IPA, HSTROPN, TSH, CMP #### [facility] [address] [place] [address] Dr. Juan Zamarripa Urea nitrogen [Mass/Vol] 13.0 mg/dL Normal 7.0-18.0 [facility] Comment on above: Performed By: #### L IPA, HSTROPN, TSH, CMP #### [facility] [address] [place] [address] Dr. Juan Zamarripa Urea nitrogen/Creatinine [Mass ratio] 14.6 mg/mg Normal [facility] Comment on above: Performed By: #### L IPA, HSTROPN, TSH, CMP #### [facility] [address] [place] [address] Dr. Juan Zamarripa TROPONIN, HIGH SENSITIVITYon 11-26-2021 HSTROP 4.6 pg/mL Normal 4.0-51.3 [facility] Comment on above: Result Comment: CUT- OFF POINTS HAVE BEEN ESTABLISHED BASED ON THE FOURTH UNIVERSAL DEFINITIONS OF MYOCARDIAL INFARCTION. THE UPPER REFERENCE LIMIT (URL) OF TROPONIN, DEFINED THE 99TH PERCENTILE OF cTnI DISTRIBUTION IN A REFERENCE POPULATION, HAS BEEN CONFIRMED THE DECISION THRESHOLD FOR IA DIAGNOSIS. Performed By: #### L IPA, HSTROPN, TSH, CMP #### [facility] [address] [place] [address] Dr. Juan Zamarripa TSHon 11-26-2021 TSH 2.343 uIU/mL Normal 0.358-3.74 0 [facility] Comment on above: Performed By: #### L IPA, HSTROPN, TSH, CMP #### [facility] [address], [place] [address] Dr. Juan Zamarripa XR CHEST 1 Von [...] VERA ARANA Date: 2021-11-26 21:03 Normal [facility] Covid-19 PCR (CVDTB)on SARS-CoV-2 (COVID-19) RNA SUNNY+probe Ql (Unsp spec) Not detected Normal NOT DETECTED [facility] [...] for this test is supported by the Group Product Manager of Health and Human Service's (HHS's) [...] SARS-CoV-2. Performed By: #### C BC #### [facility] [address], [place] [address] Dr. Juan Zamarripa CBC AUTO DIFFon 08-17-2021 BASO # 0.1 103/ul Normal 0.0-0.1 [facility] Comment on above: Performed By: #### L IPA, HSTROPN, TSH, CMP #### [facility] [address] [place] [address] Dr. Juan Zamarripa Basophils/100 WBC (Bld) 0.7 % Normal 0.2-2.0 [facility] Comment on above: Performed By: #### L IPA, HSTROPN, TSH, CMP #### [facility] [address] [place] [address] Dr. Juan Zamarripa EO # 0.1 103/ul Normal 0.0-0.7 [facility] Comment on above: Performed By: #### L IPA, HSTROPN, TSH, CMP #### [facility] [address] [place] [address] Dr. Juan Zamarripa Eosinophils/100 WBC (Bld) 1.6 % Normal 0.9-7.0 [facility] Comment on above: Performed By: #### L IPA, HSTROPN, TSH, CMP #### [facility] [address] [place] [address] Dr. Juan Zamarripa Erythrocyte distribution width (RBC) [Ratio] 12.6 % Normal 11.0-15.0 [facility] Comment on above: Performed By: #### L IPA, HSTROPN, TSH, CMP #### [facility] [address] [place] [address] Dr. Juan Zamarripa Hematocrit (Bld) [Volume fraction] 39.8 % Normal 36.0-48.0 [facility] Comment on above: Performed By: #### L IPA, HSTROPN, TSH, CMP #### [facility] [address] [place] [address] Dr. Juan Zamarripa Hemoglobin (Bld) [Mass/Vol] 13.7 g/dL Normal 12.0-16.0 [facility] Comment on above: Performed By: #### L IPA, HSTROPN, TSH, CMP #### [facility] [address] [place] [address] Dr. Juan Zamarripa IG # 0.02 10e3/ul Normal 0.00-0.03 [facility] Comment on above: Performed By: #### L IPA, HSTROPN, TSH, CMP #### [facility] [address] [address] [address] Juan Zamarripa IG % 0.3 % Normal 0.0-0.5 [facility] Comment on above: Performed By: #### L IPA, HSTROPN, TSH, CMP #### [facility] [address] [address] [address] Juan Zamarripa LYMPH # 3.1 103/ul Normal 1.2-3.8 [facility] Comment on above: Performed By: #### L IPA, HSTROPN, TSH, CMP #### [facility] [address] [place] [address] Dr. Juan Zamarripa Lymphocytes/100 WBC (Bld) 40.5 % Normal 20.5-60.0 [facility] Comment on above: Performed By: #### L IPA, HSTROPN, TSH, CMP #### [facility] [address] [place] [address] Dr. Juan Zamarripa MANUAL DIFF REQ NO Normal [facility] Comment on above: Performed By: #### L IPA, HSTROPN, TSH, CMP #### [facility] [address] [place] [address] Dr. Juan Zamarripa MCH (RBC) [Entitic mass] 32.3 pg Normal 26.7-34.0 [facility] Comment on above: Performed By: #### L IPA, HSTROPN, TSH, CMP #### [facility] [address] [place] [address] Dr. Juan Zamarripa MCHC (RBC) [Mass/Vol] 34.4 g/dL Normal 29.9-35.2 [facility] Comment on above: Performed By: #### L IPA, HSTROPN, TSH, CMP #### [facility] [address] [place] [address] Dr. Juan Zamarripa MCV (RBC) [Entitic vol] 93.9 fL Normal 81.0-99.0 [facility] Comment on above: Performed By: #### L IPA, HSTROPN, TSH, CMP #### [facility] [address] [address] [address] Juan Zamarripa MONO # 0.3 103/ul Normal 0.3-0.8 [facility] Comment on above: Performed By: #### L IPA, HSTROPN, TSH, CMP #### [facility] [address] [place] [address] Dr. Juan Zamarripa Monocytes/100 WBC (Bld) 4.2 % Normal 1.7-12.0 [facility] Comment on above: Performed By: #### L IPA, HSTROPN, TSH, CMP #### [facility] [address] [place] [address] Dr. Juan Zamarripa NEUT # 4.0 103/ul Normal 1.4-6.5 [facility] Comment on above: Performed By: #### L IPA, HSTROPN, TSH, CMP #### [facility] [address] [place] [address] Dr. Juan Zamarripa Neutrophils/100 WBC (Bld) 52.7 % Normal 43.0-75.0 [facility] Comment on above: Performed By: #### L IPA, HSTROPN, TSH, CMP #### [facility] [address] [place] [address] Dr. Juan Zamarripa Platelet mean volume (Bld) [Entitic vol] 9.7 fL Normal 9.5-13.5 [facility] Comment on above: Performed By: #### L IPA, HSTROPN, TSH, CMP #### [facility] [address] [place] [address] Dr. Juan Zamarripa PLT 164 103/ul Normal 150-450 [facility] Comment on above: Performed By: #### L IPA, HSTROPN, TSH, CMP #### [facility] [address] [place] [address] Dr. Juan Zamarripa RBC 4.24 106/ul Normal 4.20-5.40 [facility] Comment on above: Performed By: #### L IPA, HSTROPN, TSH, CMP #### [facility] [address] [place] [address] Dr. Juan Zamarripa WBC 7.6 103/ul Normal 4.0-11.0 [facility] Comment on above: Performed By: #### L IPA, HSTROPN, TSH, CMP #### [facility] [address] [address] [address] Juan Zamarripa FREE T4on 08-17-2021 Free T4 [Mass/Vol] 1.00 ng/dL Normal 0.76-1.[address] [facility] Comment on above: Performed By: #### C BC #### [facility] [address] [place] [address] Dr. Juan Zamarripa GLYCOHEMOGLOBIN A1Con 2021 ADA RECOMMENDATION SEE BELOW Normal [facility] Comment on above: Result Comment: ADA RECOMMENDED LIMIT 4.0 - 6.0 ADA THERAPEUTIC TARGET < 7.0 ACTION SUGGESTED > 7.0 Performed By: #### A 1C #### [facility] [address] [place] [address] Dr. Juan Zamarripa Glucose [Mass/Vol] 140 mg/dL Normal [facility] Comment on above: Performed By: #### A 1C #### [facility] [address] [place] [address] Dr. Juan Zamarripa HbA1c (Bld) [Mass fraction] 6.5 % Critically high 4.5-6.2 [facility] Comment on above: Performed By: #### A 1C #### [facility] [address] [place] [address] Dr. Juan Zamarripa LIPID PROFILEon 08-17-2021 CHOL-HDL RATIO NORM SEE BELOW Normal [facility] Comment on above: Result Comment: 3.3 - 4.4 LOW RISK 4.4 - 7.1 AVERAGE RISK 7.1 - 11.0 MODERATE RISK >11.0 HIGH RISK Performed By: #### L IPA, HSTROPN, TSH, CMP #### [facility] [address] [place] [address] Dr. Juan Zamarripa Cholesterol [Mass/Vol] 115 mg/dL Normal <=200 [facility] Comment on above: Performed By: #### L IPA, HSTROPN, TSH, CMP #### [facility] [address] [address] [address] Juan Zamarripa Cholesterol in HDL [Mass/Vol] 40 mg/dL Normal 40-60 [facility] Comment on above: Performed By: #### L IPA, HSTROPN, TSH, CMP #### [facility] [address] [address] [address] Juan Zamarripa Cholesterol in LDL [Mass/Vol] 53.6 mg/dL Normal [facility] Comment on above: Performed By: #### L IPA, HSTROPN, TSH, CMP #### [facility] [address] [address] [address] Juan Zamarripa Cholesterol.total/Amanda sterol in HDL [Mass ratio] 2.9 {ratio} Normal [facility] Comment on above: Performed By: #### L IPA, HSTROPN, TSH, CMP #### [facility] [address] [address] [address] Juan Zamarripa HDL NORMAL > or = 60 mg/dl - LO W CARDIOVASCULAR RISK <40 mg/dl - HIGH CARDIOVASCULAR RISK Normal [facility] Comment on above: Performed By: #### L IPA, HSTROPN, TSH, CMP #### [facility] [address] [address] [address] Juan Zamarripa LDL CALC NORMAL SEE BELOW Normal [facility] Comment on above: Result Comment: <100 mg/dl OPTIMAL 100 - 129 mg/dl NEAR OR ABOVE OPTIMAL 130 - 159 mg/dl BORDERLINE HIGH 160 - 189 mg/dl HIGH >190 mg/dl VERY HIGH Performed By: #### L IPA, HSTROPN, TSH, CMP #### [facility] [address] [address] [address] Juan Zamarripa Triglyceride [Mass/Vol] 107 mg/dL Normal <=150 [facility] Comment on above: Performed By: #### L IPA, HSTROPN, TSH, CMP #### [facility] [address] [address] [address] Juan Zamarripa VLDL CALC 21.4 mg/dL Normal [facility] Comment on above: Performed By: #### L IPA, HSTROPN, TSH, CMP #### [facility] [address] [place] [address] Dr. Juan Zamarripa PROF 14(COMP METB)on 022 Albumin [Mass/Vol] 4.1 g/dL Normal 3.4-5.[address] [facility] Comment on above: Performed By: #### L IPA, HSTROPN, TSH, CMP #### [facility] [address] [place] [address] Dr. Juan Zamarripa Albumin/Globulin [Mass ratio] 1.1 {ratio} Normal [facility] Comment on above: Performed By: #### L IPA, HSTROPN, TSH, CMP #### [facility] [address] [place] [address] Dr. Juan Zamarripa ALP [Catalytic activity/Vol] 94 U/L Normal 46-116 [facility] Comment on above: Performed By: #### L IPA, HSTROPN, TSH, CMP #### [facility] [address] [place] [address] Dr. Juan Zamarripa ALT [Catalytic activity/Vol] 61 U/L Critically high 14-59 [facility] Comment on above: Performed By: #### L IPA, HSTROPN, TSH, CMP #### [facility] [address] [place] [address] Dr. Juan Zamarripa Anion gap [Moles/Vol] 16.5 mmol/L Normal [facility] Comment on above: Performed By: #### L IPA, HSTROPN, TSH, CMP #### [facility] [address] [place] [address] Dr. Juan Zamarripa AST [Catalytic activity/Vol] 24 U/L Normal 15-37 [facility] Comment on above: Performed By: #### L IPA, HSTROPN, TSH, CMP #### [facility] [address] [place] [address] Dr. Juan Zamarripa Bilirubin [Mass/Vol] 0.7 mg/dL Normal 0.2-1.0 [facility] Comment on above: Performed By: #### L IPA, HSTROPN, TSH, CMP #### [facility] [address] [address] [address] Juan Zamarripa Calcium [Mass/Vol] 9.1 mg/dL Normal 8.5-10.[address] [facility] Comment on above: Performed By: #### L IPA, HSTROPN, TSH, CMP #### [facility] [address] [place] [address] Dr. Juan Zamarripa Chloride [Moles/Vol] 103 mmol/L Normal 98-107 [facility] Comment on above: Performed By: #### L IPA, HSTROPN, TSH, CMP #### [facility] [address] [place] [address] Dr. Juan Zamarripa CO2 [Moles/Vol] 25.4 mmol/L Normal 21.0-32.0 [facility] Comment on above: Performed By: #### L IPA, HSTROPN, TSH, CMP #### [facility] [address] [place] [address] Dr. Juan Zamarripa Creatinine [Mass/Vol] 0.87 mg/dL Normal 0.55-1.02 [facility] Comment on above: Performed By: #### L IPA, HSTROPN, TSH, CMP #### [facility] [address] [place] [address] Dr. Juan Zamarripa EGFR-AF PALESTINIAN >60 Normal >=60 [facility] Comment on above: Performed By: #### L IPA, HSTROPN, TSH, CMP #### [facility] [address] [place] [address] Dr. Juan Zamarripa EGFR-NON AF PALESTINIAN >60 Normal >=60 [facility] Comment on above: Performed By: #### L IPA, HSTROPN, TSH, CMP #### [facility] [address] [place] [address] Dr. Juan Zamarripa Globulin (S) [Mass/Vol] 3.9 g/dL Normal [facility] Comment on above: Performed By: #### L IPA, HSTROPN, TSH, CMP #### [facility] [address] [place] [address] Dr. Juan Zamarripa Glucose [Mass/Vol] 157 mg/dL Critically high 74-106 [facility] Comment on above: Performed By: #### L IPA, HSTROPN, TSH, CMP #### [facility] [address] [place] [address] Dr. Juan Zamarripa Potassium [Moles/Vol] 4.4 mmol/L Normal 3.5-5.1 [facility] Comment on above: Performed By: #### L IPA, HSTROPN, TSH, CMP #### [facility] [address] [place] [address] Dr. Juan Zamarripa Protein [Mass/Vol] 8.0 g/dL Normal 6.4-8.2 [facility] Comment on above: Performed By: #### L IPA, HSTROPN, TSH, CMP #### [facility] [address] [place] [address] Dr. Juan Zamarripa Sodium [Moles/Vol] 141 mmol/L Normal 136-[address] [facility] Comment on above: Performed By: #### L IPA, HSTROPN, TSH, CMP #### [facility] [address] [place] [address] Dr. Juan Zamarripa Urea nitrogen [Mass/Vol] 21.0 mg/dL Critically high 7.0-18.0 [facility] Comment on above: Performed By: #### L IPA, HSTROPN, TSH, CMP #### [facility] [address] [place] [address] Dr. Juan Zamarripa Urea nitrogen/Creatinine [Mass ratio] 24.1 mg/mg Normal [facility] Comment on above: Performed By: #### L IPA, HSTROPN, TSH, CMP #### [facility] [address] [place] [address] Dr. Juan Zamarripa TSHon 08-17-2021 TSH 1.503 uIU/mL Normal 0.358-3.74 0 [facility] Comment on above: Performed By: #### L IPA, HSTROPN, TSH, CMP #### [facility] [address] [place] [address] Dr. Juan Zamarripa TSH RANGE SEE BELOW Normal [facility] Comment on above: Result Comment: <0.3 4 UIU/ml HYPERTHYROID 0.34-5.60 UIU/ml EUTHYROID >5.60 UIU/ml HYPOTHYROID Performed By: #### L IPA, HSTROPN, TSH, CMP #### [facility] [address] [address] [address] Juan Weinstein 08-11-2021 CNPN Telephone (NCCAP) -------- IVELISSE GEE ([id number]) 1950 F Date Time Provider Department 08/11/21 MEHRDAD AGUILAR During your visit today, we recorded the following information about you: Marta Cuellar [facility] 08/11/2021 12:14 PM Signed Called patient to [...] Status:Closed by MARTA GARCES on 08/11/21 Normal [facility] [id number] QUANTITA TIONon 10-13-2020 [id number] (AAT) PHENOTYPE SEE NOTE Normal [facility] Comment on above: Order Comment: FASTI NG:YES FASTING: YES Result Comment: THIS PATIENT'S [id number] PHENOTYPE IS PI*MM. 90% of normal individuals have the MM phenotype, with normal quantitative AAT levels. Many phenotypic patterns have been described, including deficiency states with F, S, Z, or other alleles. As a general estimation, compared to M allele of 100% of normal C-1-Zrapskvywyg protein, the S allele produces approximately 60% and the Z allele 20%. For example, an MS phenotype would have about 80% of normal W-1-Vhpqlfnfkrs protein level, a 50% contribution from the M allele and 30% from the S allele. A ZZ phenotype would have about 20% of normal levels, a 10% contribution from each Z gene. The F allele has normal K-3-Viskhitzicp levels, but the kinetics of elastase inhibition [...] phenotype. Performed By: #### 2 63, 457, [id number], 7573, 508, 498, 326, 8472, 496, 249, 75962, 259 #### [facility] [place] [address] [address] Tester Wafer Substrate: Kush Hines MD #### [id number] #### [facility], [address] [place] [address] Tester Wafer Substrate: Susan Sheikh MD,PhD,JAY #### [id number] #### [facility]/[place] [id number] [facility] [place] Tester Wafer Substrate: Parrish Gloria M.D.,PhD [id number] QN 170 mg/dL Normal 83-199 [facility] Comment on above: Order Comment: FASTI NG:YES FASTING: YES Performed By: #### 2 63, 457, 15247, 7573, 508, 498, 326, 8472, 496, 249, 88560, 259 #### [facility] [address] [place], [place] [address] Tester Wafer Substrate: Kush Hines MD #### [id number] #### [facility], [address] [place] [address] Tester Wafer Substrate: Susan Sheikh MD,PhD,JAY #### [phone], 19759 #### [facility] [address] [facility] [place], [place] Tester Wafer Substrate: Parrish Gloria M.D.,PhD TL SCREEN, IFA, W/REFL [...] AC-0: Negative International Consensus on TL Patterns (https://doi.org/10.1515/ihmn-4691-6208) For additional information, please refer to http://education.Erenis/faq/HRE540 (This link is being provided for informational/ educational purposes only.) Performed By: #### 2 63, 457, 30969, 7573, 508, 498, 326, 8472, 496, 249, 43789, 259 #### [facility] [address], [address] [place] [address] Tester Wafer Substrate: Kush Hines MD #### [id number] #### [facility], [address] [place] [address] Tester Wafer Substrate: Susan Sheikh MD,PhD,JAY #### 50810, 97784 #### [facility]/[place] [address] [facility] [place] Tester Wafer Substrate: Parrish Gloria M.D.,PhD CELIAC DISEASE COMPREHENSIVE PANEL 10-13-2020 IMMUNOGLOBULIN A 185 mg/dL Normal 70-320 [facility] Comment on above: Performed By: #### 2 63, 457, 02069, 7573, 508, 498, 326, 8472, 496, 249, 29327, 259 #### [facility] [address], [address] [place] [address] Tester Wafer Substrate: Kush Hines MD #### [id number] #### [facility], [address] [place] Tester Wafer Substrate: Susan Sheikh MD,PhD,JAY #### 55821, 68450 #### [facility]/[place] 5[address]7625 [facility] [place] Tester Wafer Substrate: Parrish Gloria M.D.,PhD INTERPRETATION see note Normal [...] DQ8. Performed By: #### 2 63, 457, 27109, 7573, 508, 498, 326, 8472, 496, 249, 39861, 259 #### [facility] [address], [address] [place] [address] Tester Wafer Substrate: Kush Hines MD #### [id number] #### [facility], [address] [place] [address] Tester Wafer Substrate: Susan Sheikh MD,PhD,JAY #### [id number], 35939 #### [facility] [address] [facility] [place] Tester Wafer Substrate: Parrish Gloria M.D.,PhD TISSUE TRANSGLUTAMINASE AB, IGA 2 U/mL Normal <4 [facility] Comment on above: Result Comment: Value Interpretation <4 U/mL: No Antibody Detected >or=4 U/mL: Antibody Detected Performed By: #### 2 63, 457, 34688, 7573, 508, 498, 326, 8472, 496, 249, 20611, 259 #### [facility] [address], [address] [place] [address] Tester Wafer Substrate: Kush Hines MD #### [id number] #### [facility], [address] [place] [address] Tester Wafer Substrate: Susan Sheikh MD,PhD,JAY #### 34373, 34534 #### [facility] [address] [facility] [place] Tester Wafer Substrate: Parrish Gloria M.D.,PhD CERULOPLASMINon 10-13-2020 CERULOPLASMIN 31 mg/dL Normal 18-53 [facility] Comment on above: Performed By: #### 2 63, 457, 08676, 7573, 508, 498, 326, 8472, 496, 249, 90340, 259 #### [facility] [address], [address] [place] [address] Tester Wafer Substrate: Kush Hines MD #### [id number] #### [facility], [address] [place] [address] Tester Wafer Substrate: Susan Sheikh MD,PhD,JAY #### 64716, 21137 #### [facility] [address] [facility] [place] Tester Wafer Substrate: Parrish Gloria M.D.,PhD FERRITINon 10-13-2020 Ferritin [Mass/Vol] 70 ng/mL Normal 16-288 [facility] Comment on above: Performed By: #### 2 63, 457, 86365, 7573, 508, 498, 326, 8472, 496, 249, 76223, 259 #### [facility] [address] , [address] [place] [address] Tester Wafer Substrate: Kush Hines MD #### [id number] #### [facility], [address] [place] [address] Tester Wafer Substrate: Susan Sheikh MD,PhD,JAY #### 65526, 95619 #### [facility] [address] [facility] [place] Tester Wafer Substrate: Parrish Gloria M.D.,PhD HEMOGLOBIN A1con 10-13-2020 HEMOGLOBIN [...] children. Performed By: #### 2 63, 457, 55651, 7573, 508, 498, 326, 8472, 496, 249, 69299, 259 #### [facility] [address], [address] [place] [address] Tester Wafer Substrate: Kush Hines MD #### [id number] #### [facility], [address] [place] Tester Wafer Substrate: Susan Sheikh MD,PhD,JAY #### 25756, 27906 #### [facility]/[place] [address]25 [facility] [place] Tester Wafer Substrate: Parrish Gloria M.D.,PhD HEPATITIS A AB, TOTALon 07-0 HEPATITIS A AB, TOTAL Reactive Abnormal NON-RE ACTI VE [facility] Comment on above: Result Comment: For additional information, please refer to http://education.Sxbbm.LetMeGo/faq/AZO272 (This link is being provided for informational/ educational purposes only.) Performed By: #### 2 63, 457, 50291, 7573, 508, 498, 326, 8472, 496, 249, 01942, 259 #### [facility] [address], [address] [place] [address] Tester Wafer Substrate: Kush Hines MD #### 73908 #### [facility], [address] [place] Tester Wafer Substrate: Susan Sheikh MD,PhD,JAY #### 45591, 29807 #### [facility] [address] [facility] [place] [address] Tester Wafer Substrate: Parrish Gloria M.D.,PhD HEPATITIS B CORE AB TOTAL W/ REFL IGMon 10-13-2020 HEPATITIS B CORE AB TOTAL Non-Reactive Normal NON-REACTI VE [facility] Comment on above: Performed By: #### 2 63, 457, 15288, 7573, 508, 498, 326, 8472, 496, 249, 11635, 259 #### [facility] [address] [facility], [address] [place] [address] Tester Wafer Substrate: Kush Hines MD #### [id number] #### [facility], [address] [place] [address] Tester Wafer Substrate: Susan Sheikh MD,PhD,JAY #### 40937, 42904 #### [facility]/[place] [address] [facility] [place] Tester Wafer Substrate: Parrish Gloria M.D.,PhD HEPATITIS B SURFACE ANTIBODY QLon 10-13-2020 HEPATITIS B SURFACE ANTIBODY QL Non-Reactive Normal NON-REACTI VE [facility] Comment on above: Performed By: #### 2 63, 457, 64587, 7573, 508, 498, 326, 8472, 496, 249, 16184, 259 #### [facility] [address] [facility], [address] [place] [address] Tester Wafer Substrate: Kush Hines MD #### [id number] #### [facility], [address] [place] Tester Wafer Substrate: Susan Sheikh MD,PhD,JAY #### 94599, 10422 #### [facility]/[place] 5[address]25 [facility] [place] Tester Wafer Substrate: Parrish Gloria M.D.,PhD HEPATITIS B SURFACE ANTIGEN W/REFL CONFIRMon 10-13-2020 HEPATITIS B SURFACE ANTIGEN Non-Reactive Normal NON-REACTI VE [facility] Comment on above: Performed By: #### 2 63, 457, 30889, 7573, 508, 498, 326, 8472, 496, 249, 77893, 259 #### [facility] [address], [address] [place] [address] Tester Wafer Substrate: Kush Hines MD #### 47387 #### [facility], [address] [place] [address] Tester Wafer Substrate: Susan Sheikh MD,PhD,JAY #### 88019, 66942 #### [facility]/[place] [address] [facility] [place] Tester Wafer Substrate: Parrish Gloria M.D.,PhD HEPATITIS C AB W/REFL TO HCV RNA, QN, PCRon 10-13-2020 HEPATITIS C ANTIBODY Non-Reactive Normal NON-CHARMAINE CTI VE [facility] Comment on above: Performed By: #### 2 63, 457, 68626, 7573, 508, 498, 326, 8472, 496, 249, 77640, 259 #### [facility] [address], [address] [place] [address] Tester Wafer Substrate: Kush Hines MD #### [id number] #### [facility], [address] [place] [address] Tester Wafer Substrate: Susan Sheikh MD,PhD,AJY #### 24886, 74984 #### [facility] [address] [facility] [address] [place] Tester Wafer Substrate: Parrish Gloria M.D.,PhD INDEX 0.02 Normal <1.00 [facility] Comment on above: Result Comment: HCV antibody was non-reactive. There is no laboratory evidence of HCV infection. In most cases, no further action is required. However, if recent HCV exposure is suspected, a test for HCV RNA (test code 44723) is suggested. For additional information please refer to http://education.[facility].com/faq/TEQ80t0 (This link is being provided for informational/ educational purposes only.) Performed By: #### 2 63, 457, 25477, 7573, 508, 498, 326, 8472, 496, 249, 36185, 259 #### [facility] [address], [address] [place] [address] Tester Wafer Substrate: Kush Hines MD #### 36508 #### [facility], [address] [place] [address] Tester Wafer Substrate: Susan Sheikh MD,PhD,JAY #### 86243, 96491 #### [facility]/[place] [address]7625 [facility] [place] Tester Wafer Substrate: Parrish Gloria M.D.,PhD IRON AND TOTAL IRON BINDING CAPACITYon 10-13-2020 % SATURATION 19 % (calc) Normal 16-45 [facility] Comment on above: Performed By: #### 2 63, 457, 59696, 7573, 508, 498, 326, 8472, 496, 249, 61682, 259 #### [facility] [address], [address] [place] [address] Tester Wafer Substrate: Kush Hines MD #### 46103 #### [facility], [address] [place] [address] Tester Wafer Substrate: Susan Sheikh MD,PhD,JAY #### 31336, 14017 #### [facility] [address] [facility] [place] Tester Wafer Substrate: Parrish Gloria M.D.,PhD IRON BINDING CAPACITY 372 mcg/dL (calc) Normal 250-450 [facility] Comment on above: Performed By: #### 2 63, 457, 94665, 7573, 508, 498, 326, 8472, 496, 249, 11723, 259 #### [facility] [address] , [address] [place] [address] Tester Wafer Substrate: Kush Hines MD #### 49825 #### [facility], [address] [place] [address] Tester Wafer Substrate: Susan Sheikh MD,PhD,JAY #### 38555, 09805 #### [facility]/[place] 5[address]7625 [facility] [place] Tester Wafer Substrate: Parrish Gloria M.D.,PhD IRON, TOTAL 70 mcg/dL Normal 45-160 [facility] Comment on above: Performed By: #### 2 63, 457, 03540, 7573, 508, 498, 326, 8472, 496, 249, 23618, 259 #### [facility] [address], [address] [place] [address] Tester Wafer Substrate: Kush Hines MD #### 38206 #### [facility], [address] [place] [address] Tester Wafer Substrate: Susna Sheikh MD,PhD,JAY #### 04630, 19826 #### [facility] [address] [facility] [place] Tester Wafer Substrate: Parrish Gloria M.D.,PhD LIVER KIDNEY MICROSOME (LKM- [...] infection. Performed By: #### 2 63, 457, 32954, 7573, 508, 498, 326, 8472, 496, 249, 98848, 259 #### [facility] [address], [address] [place] [address] Tester Wafer Substrate: Kush Hines MD #### 72449 #### [facility], [address] [place] [address] Tester Wafer Substrate: Susan Sheikh MD,PhD,JAY #### 54875, 27520 #### [facility]/[place] 5[address]7625 [facility] [place] Tester Wafer Substrate: Parrish Gloria M.D.,PhD MITOCHONDRIAL ANTIBODY W/REF L TITERon 10-13-2020 MITOCHONDRIAL AB SCREEN Negative Normal NEGATIVE Q [facility] Comment on above: Performed By: #### 2 63, 457, 63751, 7573, 508, 498, 326, 8472, 496, 249, 00259, 259 #### [facility] [address], [address] [place] [address] Tester Wafer Substrate: Kush Hines MD #### 98455 #### [facility], [address] [place] Tester Wafer Substrate: Susan Sheikh MD,PhD,JAY #### 04891, 70158 #### [facility] [address] [facility] [place] Tester Wafer Substrate: Parrish Gloria M.D.,PhD SMOOTH MUSCLE AB W/REFL TITE Butch 10-13-2020 SMOOTH MUSCLE AB SCREEN Negative Normal NEGATIVE Q [facility] Comment on above: Performed By: #### 2 63, 457, 57719, 7573, 508, 498, 326, 8472, 496, 249, 08326, 259 #### [facility] [address] [place] [address], [address] [place] [address] Tester Wafer Substrate: Kush Hines MD #### 23615 #### [facility], [address] [place] [address] Tester Wafer Substrate: Susan Sheikh MD,PhD,JAY #### 33720, 91182 #### [facility] 5[address]7625 [facility] [place] Tester Wafer Substrate: Parrish Gloria M.D.,PhD TSH W/REFLEX TO FT4on 2020 TSH W/REFLEX TO FT4 3.10 mIU/L Normal 0.40-4.50 [facility] Comment on above: Performed By: #### 2 63, 457, 66344, 7573, 508, 498, 326, 8472, 496, 249, 62583, 259 #### [facility] [address], [address] [place] [address] Tester Wafer Substrate: Kush Hines MD #### 39597 #### [facility], [address] [place] [address] Tester Wafer Substrate: Susan Sheikh MD,PhD,JAY #### 96719, 93354 #### [facility]/[place] 5[address]7625 [facility] [place] Tester Wafer Substrate: Parrish Gloria M.D.,PhD CNOVSPon 09-30-2020 CNOVS Visit (SP) Office ([facility]) -------- IVELISSE [id number]) 1950 F Date Time Provider Department 09/30/20 1:30 PM MEHRDAD AGUILAR During your visit today, we recorded the following information about you: Temperature Pulse Respiration Blood pressure 97.2 degrees 71/minute 18/minute 121/54 Weight Height 73.6 kg 1.57 m Mehrdad Aguilar MD 10/02/2020 5:36 PM Signed PATIENT NAME: Ivelisse Gee DATE: 09/30/2020 PRIMARY CARE PHYSICIAN: Carmen Conley MD OTHER PHYSICIANS: Dr. Wahl (PCP [place], [place]), Dr. Magdaleno Castillo ([facility]) Portions of this encounter note [...] BP 121/ (more content not included)... Normal [facility] Albumin/Creat Ratioon 2020 Albumin Urine Random <12.[address] [facility] Comment on above: Performed By: #### C MP, INSLAB, LIPB, CPEPT, GADCAB, B12, VITD, UACR ####[place] [address] [place], [place] [phone] Albumin/Creat Ratio Not calculated Normal <30 [facility] Comment on above: Performed By: #### C MP, INSLAB, LIPB, CPEPT, GADCAB, B12, VITD, UACR ####[place] [address] [place], [place] [phone] Creatinine,Urine,Ran 53.8 mg/dL Normal 20-300 [facility] Comment on above: Performed By: #### C MP, INSLAB, LIPB, CPEPT, GADCAB, B12, VITD, UACR ####[place] [address] [place], [place] [phone] C-Peptideon 09-27-2020 C-Peptide 1.8 ng/mL Normal 0.8-3.9 [facility] Comment on above: Performed By: #### C MP, INSLAB, LIPB, CPEPT, GADCAB, B12, VITD, UACR ####[place] [address] [address] [place], [place] [phone] CBC and Differentialon 09-27 Abs Baso 0.03 k/uL Normal <0.11 [facility] Abs Coamo 0.33 k/uL Normal <0.87 [facility] Abs Neut 4.29 k/uL Normal 1.45-7.50 [facility] Absolute nRBC <0.01 Normal <0.01 [facility] Basophils/100 WBC (Bld) 0.4 % Normal [facility] DTYPE Auto Diff Normal [facility] Eosinophils (Bld) [#/Vol] 0.12 10*3/uL Normal <0.46 [facility] Eosinophils/100 WBC (Bld) 1.5 % Normal [facility] Erythrocyte distribution width (RBC) [Ratio] 13.0 % Normal 11.5-15.0 [facility] Hematocrit (Bld) [Volume fraction] 37.3 % Normal 36.0-46.0 [facility] Hemoglobin (Bld) [Mass/Vol] 13.0 g/dL Normal 11.5-15.5 [facility] Lymphocytes (Bld) [#/Vol] 3.40 10*3/uL Normal 1.00-4.00 [facility] Lymphocytes/100 WBC (Bld) 41.6 % Normal [facility] MCH 31.9 pG Normal 26.0-34.0 [facility] MCHC (RBC) [Mass/Vol] 34.9 g/dL Normal 30.5-36.0 [facility] MCV (RBC) [Entitic vol] 91.4 fL Normal 80.0-100.0 [facility] Monocytes/100 WBC (Bld) 4.0 % Normal [facility] Neutrophils/100 WBC (Bld) 52.5 % Normal [facility] NRBCs 0.0 /100 WBC Normal 0 [facility] Platelet mean volume (Bld) [Entitic vol] 9.6 fL Normal 9.0-12.7 [facility] Platelets (Bld) [#/Vol] 164 10*3/uL Normal 150-400 [facility] RBC (Bld) [#/Vol] 4.08 10*6/uL Normal 3.90-5.[address] [facility] WBC (Bld) [#/Vol] 8.18 10*3/uL Normal 3.70-11.[address] [facility] Comp Metabolic Panelon 09-27 Albumin [Mass/Vol] 4.4 g/dL Normal 3.9-4.9 [facility] Comment on above: Performed By: #### C MP, INSLAB, LIPB, CPEPT, GADCAB, B12, VITD, UACR ####[place] [address] [address], [place] [phone] ALP [Catalytic activity/Vol] 88 U/L Normal 34-123 [facility] Comment on above: Performed By: #### C MP, INSLAB, LIPB, CPEPT, GADCAB, B12, VITD, UACR ####[place] [address] [place] [place], [place] [phone] ALT [Catalytic activity/Vol] 63 U/L High 7-38 [facility] Comment on above: Performed By: #### C MP, INSLAB, LIPB, CPEPT, GADCAB, B12, VITD, UACR ####[place] [address] [address] [place], [place] [phone] Anion gap [Moles/Vol] 12 mmol/L Normal 9-18 [facility] Comment on above: Performed By: #### C MP, INSLAB, LIPB, CPEPT, GADCAB, B12, VITD, UACR ####[place] [address] [address] [place], [place] [phone] AST [Catalytic activity/Vol] 42 U/L High 13-35 [facility] Comment on above: Performed By: #### C MP, INSLAB, LIPB, CPEPT, GADCAB, B12, VITD, UACR ####[place] [address] [address] [place], [place] [phone] Bilirubin [Mass/Vol] 0.6 mg/dL Normal 0.2-1.3 [facility] Comment on above: Performed By: #### C MP, INSLAB, LIPB, CPEPT, GADCAB, B12, VITD, UACR ####[place] [address] [address] [place], [place] [phone] Calcium [Mass/Vol] 9.2 mg/dL Normal 8.5-10.2 [facility] Comment on above: Performed By: #### C MP, INSLAB, LIPB, CPEPT, GADCAB, B12, VITD, UACR ####[facility] [place], [place] [phone] Chloride [Moles/Vol] 104 mmol/L Normal 97-105 [facility] Comment on above: Performed By: #### C MP, INSLAB, LIPB, CPEPT, GADCAB, B12, VITD, UACR ####[facility] [place], [place] [phone] Creatinine [Mass/Vol] 0.68 mg/dL Normal 0.58-0.96 [facility] Comment on above: Performed By: #### C MP, INSLAB, LIPB, CPEPT, GADCAB, B12, VITD, UACR ####[address] [phone] Glucose [Mass/Vol] 152 mg/dL High 74-99 [facility] Comment on above: Result Comment: The [place] [employer] (ADA) provides guidance for cutoff [...] Standards of Medical Care in Diabetes 2016, [place] [employer]. Diabetes Care. 2016.39(Suppl 1). Performed By: #### C MP, INSLAB, LIPB, CPEPT, GADCAB, B12, VITD, UACR ####[place] [address] [place], [place] [phone] Potassium [Moles/Vol] 4.3 mmol/L Normal 3.7-5.1 [facility] Comment on above: Performed By: #### C MP, INSLAB, LIPB, CPEPT, GADCAB, B12, VITD, UACR ####[facility] [id number] [place], [place] [phone] Sodium [Moles/Vol] 140 mmol/L Normal 136-144 [facility] Comment on above: Performed By: #### C MP, INSLAB, LIPB, CPEPT, GADCAB, B12, VITD, UACR ####[facility] [place], [place] [phone] Urea nitrogen [Mass/Vol] 14 mg/dL Normal 7-21 [facility] Comment on above: Performed By: #### C MP, INSLAB, LIPB, CPEPT, GADCAB, B12, VITD, UACR ####[place] [address] [place], [place] [phone] Albumin [Mass/Vol] 4.5 g/dL Normal 3.9-4.9 [facility] ALP [Catalytic activity/Vol] 83 U/L Normal 34-123 [facility] ALT [Catalytic activity/Vol] 58 U/L High 7-38 [facility] Anion gap [Moles/Vol] 11 mmol/L Normal 9-18 [facility] AST [Catalytic activity/Vol] 34 U/L Normal 13-35 [facility] Bilirubin [Mass/Vol] 0.7 mg/dL Normal 0.2-1.3 [facility] Calcium [Mass/Vol] 9.5 mg/dL Normal 8.5-10.2 [facility] Chloride [Moles/Vol] 103 mmol/L Normal 97-105 [facility] CO2 [Moles/Vol] 24 mmol/L Normal 22-30 [facility] Comment on above: Performed By: #### C MP, INSLAB, LIPB, CPEPT, GADCAB, B12, VITD, UACR ####[facility] [place], [place] [phone] Creatinine [Mass/Vol] 0.67 mg/dL Normal 0.58-0.96 [facility] eGFR- Amer. >60 Normal [facility] Comment on above: Performed By: #### C MP, INSLAB, LIPB, CPEPT, GADCAB, B12, VITD, UACR ####[facility] [place], [place] [phone] eGFR-All Other Races >[address] [facility] Comment on above: Result Comment: eGFR (Estimated [...] INSLAB, LIPB, CPEPT, GADCAB, B12, VITD, UACR ####[facility] [id number] [place], [place] [phone] Glucose [Mass/Vol] 161 mg/dL High 74-99 [facility] Comment on above: Result Comment: The [place] Diabetes [employer] (ADA) provides guidance for cutoff [...] Standards of Medical Care in Diabetes 2016, [place] [employer]. Diabetes Care. 2016.39(Suppl 1). Potassium [Moles/Vol] 4.1 mmol/L Normal 3.7-5.1 [facility] Protein [Mass/Vol] 7.2 g/dL Normal 6.3-8.0 [facility] Comment on above: Performed By: #### C MP, INSLAB, LIPB, CPEPT, GADCAB, B12, VITD, UACR ####[place] [address] [place], [place] [phone] Sodium [Moles/Vol] 138 mmol/L Normal 136-144 [facility] Urea nitrogen [Mass/Vol] 13 mg/dL Normal 7-21 [facility] Glutamic Ac Decar Abon 09-27 Glutam Ac Dec Ab Ql Negative Normal Negative [facility] Comment on above: Performed By: #### C MP, INSLAB, LIPB, CPEPT, GADCAB, B12, VITD, UACR ####[place] [address] [place], [place] [phone] Glutamic Ac Decar Ab <5.0 Normal <5.1 [facility] Comment on above: Performed By: #### C MP, INSLAB, LIPB, CPEPT, GADCAB, B12, VITD, UACR ####[place] [address] [place], [place] [phone] Insulin Autoantibodyon 09-27 Insulin Ab Ql Negative Normal Negative [facility] Comment on above: Performed By: #### C MP, INSLAB, LIPB, CPEPT, GADCAB, B12, VITD, UACR ####[place] [address] [place], [place] [phone] Insulin Antibody <0.4 Normal <0.4 [facility] Comment on above: Performed By: #### C MP, INSLAB, LIPB, CPEPT, GADCAB, B12, VITD, UACR ####[place] [address] [place], [place] [phone] Lipid Panel, Basicon 021 Cholesterol [Mass/Vol] 110 mg/dL Normal <200 [facility] Comment on above: Result Comment: <200 mg/dL, Desirable 200-239 mg/dL, Borderline high >239 mg/dL, High Performed By: #### C MP, INSLAB, LIPB, CPEPT, GADCAB, B12, VITD, UACR ####[facility] [place], [place] [phone] Cholesterol in HDL [Mass/Vol] 37 mg/dL Low >39 [facility] Comment on above: Result Comment: 40-5 9 mg/dL, Acceptable >59 mg/dL, High: Negative risk factor for coronary heart disease <40 mg/dL, Low: Positive risk factor for coronary heart disease Performed By: #### C MP, INSLAB, LIPB, CPEPT, GADCAB, B12, VITD, UACR ####[address] [phone] Cholesterol in LDL [Mass/Vol] 49 mg/dL Normal <100 [facility] Comment on above: Result Comment: <100 mg/dL, Optimal 100-129 mg/dL, Near optimal/above optimal 130-159 mg/dL, Borderline high 160-189 mg/dL, High >189 mg/dL, Very high Secondary prevention optimal LDL Cholesterol levels are recommended to be < 70 mg/dL Performed By: #### C MP, INSLAB, LIPB, CPEPT, GADCAB, B12, VITD, UACR ####[address] [phone] Fasting Time 12 hrs Normal [facility] Comment on above: Performed By: #### C MP, INSLAB, LIPB, CPEPT, GADCAB, B12, VITD, UACR ####[place] [address] [place], [place] [phone] LDL:HDL Ratio 1.32 Normal <2.54 [facility] Comment on above: Result Comment: Refe rence: 1. National Cholesterol Education Program ATP III Guideline At-A-Glance Quick Desk Reference: National Heart, Lung, and Blood [place]. National Institutes of Health. 2001: NIH Publication No. 01-3305. 2. An International Atherosclerosis Society position paper: global recommendations for the management of dyslipidemia: executive summary, Atherosclerosis. 2014: 232(2):410-413. Performed By: #### C MP, INSLAB, LIPB, CPEPT, GADCAB, B12, VITD, UACR ####[place] [address] [place], [place] [phone] Non HDL Cholesterol 73 mg/dL Normal <[address] [facility] Comment on above: Result Comment: <130 mg/dL, Optimal 130-159 mg/dL, Near optimal/above optimal 160-189 mg/dL, Borderline high 190-219 mg/dL, High >219 mg/dL, Very high Secondary prevention optimal non HDL Cholesterol levels are recommended to be < 100 mg/dL Performed By: #### C MP, INSLAB, LIPB, CPEPT, GADCAB, B12, VITD, UACR ####[address] [place], [place] [phone] TC:HDL Ratio 2.97 Normal <5.10 [facility] Comment on above: Performed By: #### C MP, INSLAB, LIPB, CPEPT, GADCAB, B12, VITD, UACR ####[place] [phone] Triglyceride [Mass/Vol] 121 mg/dL Normal <150 [facility] Comment on above: Result Comment: <150 mg/dL, Normal 150-199 mg/dL, Borderline high 200-499 mg/dL, High >499 mg/dL, Very high Performed By: #### C MP, INSLAB, LIPB, CPEPT, GADCAB, B12, VITD, UACR ####[address] [place], [place] [phone] VLDL Cholesterol 24 mg/dL Normal <30 [facility] Comment on above: Performed By: #### C MP, INSLAB, LIPB, CPEPT, GADCAB, B12, VITD, UACR ####[address] [place], [place] [phone] Vitamin B12on 09-27-2020 Cobalamin (Vitamin B12) [Mass/Vol] 431 pg/mL Normal 232-1245 [facility] Comment on above: Performed By: #### C MP, INSLAB, LIPB, CPEPT, GADCAB, B12, VITD, UACR ####[facility] [place], [place] [phone] Vitamin D 25 Hydroxyon 09-27 Vitamin D 25 Hydroxy 47.2 ng/mL Normal 31.0-80.0 [facility] Comment on above: Result Comment: Clas sification of 25 [place] Vitamin D status: Insufficiency/Moderate Deficiency: < or = 30 ng/mL Sufficiency/Optimal Levels: 31 to 80 ng/mL Toxicity: > 100 ng/mL Test performed by chemiluminescent immunoassay. Performed By: #### C MP, INSLAB, LIPB, CPEPT, GADCAB, B12, VITD, UACR ####[facility] [address] [place], [place] [phone] [facility] IVELISSE GEE ([id number]) 1950 F Date Time Provider Department 09/22/20 [...] Date Reviewed: 09/22/2020 Reviewed by: Mac Perez APRN.RABIES INSPECTOR - Fully Assessed Reason for Visit: Lab Orders [6418] Primary Visit Diagnosis:Thrombocytopen ia (HCC) [D69.6] Order(s):CBC + DIFF [SQCBCDIF] Order #: [id number] STANDING COMP METABOLIC PANEL [SQCMP] Order #: [id number] STANDING Prescriptions as of 09/22/2020 Sig: METFORMIN [...] Status:Closed by MAC PEREZ on 09/22/20 Normal [facility] MRI ABDOMEN WO/W IVCONon MRI ABDOMEN WO/W IVCON * * *Final Report * * * DATE OF EXAM: Sep 21 2020 11:45AM [facility] 0689 - MRI ABDOMEN WO/W IVCON [...] 6 months is recommended to assess the halfway stability, progression or resolution of the findings. No enhancing pancreatic mass with special attention to the head of the pancreas. 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 5 mm and 9 mm Bosniak type II hemorrhagic cysts at the midpole of the left kidney. Additional subcentimeter renal cysts. Cholecystectomy with mildly dilatation. No choledocholithiasis. Telecommunications Consultant: SHAHRZAD Transcribe Date/Time: Sep 21 2020 1:58P Dictated by : ANA MARÍA ARAIZA MD This examination was interpreted and the report reviewed and electronically signed by: ANA MARÍA ARAIZA MD on Sep 21 2020 10:19PM EST [id number] Normal [facility] CNPNiki 09-01-2020 CNPN Telephone ([place]) -------- IVELISSE GEE ([id number]) 1950 F Date Time Provider Department 09/01/20 [...] Clerical: Please schedule pt for MRI at [facility]. Thank you. BRM: Order pending, please review and sign. MONICO Louie 09/01/2020 2:24 PM Signed Called patient to inform her that she has been scheduled for MRI @ [facility] on 09/07/20 @ 8:30am. LMOV. 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 Maintenance Trainer (topogram) images: No additional findings. IMPRESSION: 1. [...] any questions regarding this interpretation, please call [phone]. If you are unable to reach us at the number above, please feel free to contact [facility] eRadiology at [phone]. [id number] Normal [facility] Protein Electrophor.on 08-30 Albumin [Mass/Vol] 4.24 g/dL High 3.37-4.23 [facility] Comment on above: Performed By: #### S EPG ####[facility] [address] [place], [place] [phone] Alpha 1 Globulin 0.27 gm/dL Normal 0.18-0.31 [facility] Comment on above: Performed By: #### S EPG ####[facility] [address] [place], [place] [phone] Alpha 2 Globulin 0.82 gm/dL Normal 0.52-0.97 [facility] Comment on above: Performed By: #### S EPG ####[facility] [address], [place] [phone] Beta Globulin 1.11 gm/dL Normal 0.84-1.36 [facility] Comment on above: Performed By: #### S EPG ####[facility] [address] [place], [place] [phone] Gamma Globulin 1.27 gm/dL Normal 0.70-1.44 [facility] Comment on above: Performed By: #### S EPG ####[address] [phone] Interpretation SEE COMMENT [facility] Comment on above: Result Comment: No d efinitive M protein is identified on protein electrophoresis. Performed By: #### S EPG ####[address] [phone] M Protein Location N/A [facility] Comment on above: Performed By: #### S EPG ####[address] [phone] M Shmuel Concentratn 0.00 gm/dL Normal 0.[address] [facility] Comment on above: Performed By: #### S EPG ####[place] [phone] Protein [Mass/Vol] 7.7 g/dL Normal 6.3-8.0 [facility] Comment on above: Performed By: #### S EPG ####[place] [phone] SPE Staff Review Reviewed by Audelia Cabrera MD ([id number]) [facility] Comment on above: Performed By: #### S EPG ####[place] [phone] Js 08-23-2020 DAVID Telephone (GRISEL) -------- IVELISSE GEE ([id number]) 1950 F Date Time Provider Department 08/23/20 AGUILAR, MEHRDAD R NCCAP During your visit today, we recorded the following information about you: Adele Delong 08/23/2020 9:45 AM Signed Marta Cuellar Pss MP ? 9:12 AM Note lvm returning GI's call to call back regarding patient to schedule patient for this referral. August 19, 2020 ? ? 3:53 PM Lorri Keyes Sec routed this conversation to [facility] Clerical Pool Lorri Keyes Sec ? 3:53 PM Note Left message at Dr Magdaleno Cuello [facility] GI. They may ask for me. She needs to be seen for Liver cirrhosis. Please call [phone] to refer this patient if they do not call back to schedule. Tracy Gonzáles [facility] 08/24/2020 10:00 AM Signed Records and referral faxed to [facility]. Marta Cuellar Pss 08/25/2020 1:09 [...] Encounter Status:Closed by ADELE DELONG on 09/20/20 [facility] Js 08-22-2020 CNPN Telephone ([facility]) -------- IVELISSE GEE ([id number]) 1950 F Date Time Provider Department 08/22/20 MEHRDAD AGUILAR During your visit today, we recorded the following information about you: Allergies As of Date: 08/22/2020 Noted Allergy Reaction SULFA (SULFONAMIDE ANTIBIOTICS) 09/05/2016 10 - Anaphylaxis LATEX, NATURAL RUBBER 09/06/2016 16 - Unknown Comments: Only bandaids Date Reviewed: 08/19/2020 Reviewed by: Carlos Brewer MA - Fully Assessed Reason for Visit: Patient Question [1017] Prescriptions as of 08/22/2020 Sig: METFORMIN ER [...] Encounter Status:Closed by MARTA GARCES on 08/22/20 [facility] CNOVSPon 08-19-2020 CNOVS Visit (SP) Office ([place]) -------- IVELISSE GEE ([id number]) 1950 F Date Time Provider Department 08/19/20 11:15 AM MEHRDAD AGUILAR During your visit today, we recorded the following information about you: Temperature Pulse Respiration Blood pressure 98.2 degrees 88/minute 16/minute 130/56 Weight Height 74 kg 1.57 m Mehrdad Aguilar MD 08/20/2020 1:40 PM Signed PATIENT NAME: Ivelisse Gee DATE: 08/19/2020 PRIMARY CARE PHYSICIAN: Carmen Conley MD OTHER PHYSICIANS: Dr. Wahl ((PCP [place], [place]) HPI: This is a 70 year [...] CBC. Since the patient's hospitalization she started zuiq-tfd-mikqguc supplements including multivitamin. She has had no [...] intolerance, urinar (more content not included)... Normal [facility] Js 08-19-2020 [facility] Telephone ([place]) -------- IVELISSE GEE ([id number]) 1950 F Date Time Provider Department 08/19/20 JESSIE ACUÑA (RN) [place] During your visit today, we recorded the following information about you: Jessie Acuña 08/19/2020 12:27 PM Signed Please sign pending CAP CTs w/IVCON for Ivelisse Gee [id number] who was added to the schedule for scans on 08/30. Thanks KAMALJIT Zepeda, RN Mehrdad Aguilra MD 08/19/2020 12:41 PM Signed Actually we [...] lymph node [R59.9] Order(s):CT ABD/PEL W IVCON [[id number]] Order #: [id number] FUTURE iv contrast (will be provided with [...] Status:Closed by JESSIE ACUÑA on 08/19/20 Normal [facility] Comp Metabolic Panelon 08-19 Albumin [Mass/Vol] 4.7 g/dL Normal 3.9-4.9 [facility] ALP [Catalytic activity/Vol] 93 U/L Normal 34-123 [facility] ALT [Catalytic activity/Vol] 56 U/L High 7-38 [facility] Anion gap [Moles/Vol] 12 mmol/L Normal 9-18 [facility] AST [Catalytic activity/Vol] 40 U/L High 13-35 [facility] Bilirubin [Mass/Vol] 0.9 mg/dL Normal 0.2-1.3 [facility] Calcium [Mass/Vol] 9.8 mg/dL Normal 8.5-10.2 [facility] Chloride [Moles/Vol] 102 mmol/L Normal 97-105 [facility] CO2 [Moles/Vol] 22 mmol/L Normal 22-30 [facility] Creatinine [Mass/Vol] 0.66 mg/dL Normal 0.58-0.96 [facility] eGFR- Amer. >60 Normal [facility] eGFR-All Other Races >[address] [facility] Comment on above: Result Comment: eGFR (Estimated [...] GFR. Glucose [Mass/Vol] 258 mg/dL High 74-99 [facility] Comment on above: Result Comment: The [place] Diabetes Association (ADA) provides guidance for cutoff [...] Standards of Medical Care in Diabetes 2016, [place] Diabetes Association. Diabetes Care. 2016.39(Suppl 1). Potassium [Moles/Vol] 4.3 mmol/L Normal 3.7-5.1 [facility] Protein [Mass/Vol] 8.0 g/dL Normal 6.3-8.0 [facility] Sodium [Moles/Vol] 136 mmol/L Normal 136-144 [facility] Urea nitrogen [Mass/Vol] 13 mg/dL Normal 7-21 [facility] Ferritinon 08-19-2020 Ferritin [Mass/Vol] 184.0 ng/mL Normal 14.7-205.1 [facility] Comment on above: Performed By: #### F ERR, IRON ####[place] [address] [place] [phone] Iron and TIBCon 08-19-2020 Iron [Mass/Vol] 116 ug/dL Normal 41-186 [facility] Comment on above: Performed By: #### F ERR, IRON ####[place] [address] [place] [phone] TIBC 357 ug/dL Normal 232-386 [facility] Comment on above: Performed By: #### F ERR, IRON ####[place] [phone] Transferrin Saturatn 32 % Normal 15-57 [facility] Comment on above: Performed By: #### F ERR, IRON ####[place] [phone] LDon 08-19-2020 LD 171 U/L Normal 135-214 [facility] Monclnl Protein, Seron 08-19 K/L Ratio, Serum 1.43 Normal 0.26-1.65 [facility] Comment on above: Performed By: #### S ERMPA, B12 ####[address] [phone] [place], Free, Serum 28.3 mg/L High 3.30-19.40 [facility] Comment on above: Result Comment: Test performed by an immunoturbidimetric assay on Optilite instrument from [facility]. Immunoglobulin free light chain assay results should be interpreted in conjunction with other tests and in correlation with clinical picture. Performed By: #### Kg DOMINGUEZ B12 ####[place] [phone] Lambda, Free, Serum 19.8 mg/L Normal 5.7-26.[address] [facility] Comment on above: Result Comment: Test performed by an immunoturbidimetric assay on Optilite instrument from [facility]. Immunoglobulin free light chain assay results should be interpreted in conjunction with other tests and in correlation with clinical picture. Performed By: #### S ANGELICA B12 ####[place] [phone] MPA Interpretation SEE COMMENT Normal [facility] [...] necessary. Performed By: #### Kg DOMINGUEZ B12 ####[place] [phone] MPA Result A poorly defined reg ion of restricted mobility is present that may represent an M protein. Critically abnormal No M protein is identified . [facility] Comment on above: Performed By: #### S ANGELICA B12 ####[facility] [place] [phone] MPA Serum IgA 196 mg/dL Normal 70-400 [facility] Comment on above: Performed By: #### S ANGELICA, B12 ####[place] [address] [place] [phone] MPA Serum IgG 1243 mg/dL Normal 700-1600 [facility] Comment on above: Performed By: #### S ANGELICA, B12 ####[facility] [address] [place], [place] [phone] MPA Serum IgM 58 mg/dL Normal 40-230 [facility] Comment on above: Performed By: #### S ANGELICA, B12 ####[facility] [address] [place], [place] [phone] Staff Review Reviewed by Audelia Cabrera MD ([id number]) Normal [facility] Comment on above: Performed By: #### S ANGELICA, B12 ####[place] [address] [place], [place] [phone] Remote CBCDIF (for [facility] use o nly)on 08-19-2020 Abs Baso <0.03 Normal <0.11 [facility] Abs Coamo 0.33 k/uL Normal <0.87 [facility] Abs Neut 3.89 k/uL Normal 1.45-7.50 [facility] Absolute nRBC <0.01 Normal <0.01 [facility] Basophils/100 WBC (Bld) 0.3 % Normal [facility] DTYPE Auto Diff Normal [facility] Eosinophils (Bld) [#/Vol] 0.14 10*3/uL Normal <0.46 [facility] Eosinophils/100 WBC (Bld) 2.0 % Normal [facility] Erythrocyte distribution width (RBC) [Ratio] 12.8 % Normal 11.5-15.0 [facility] Hematocrit (Bld) [Volume fraction] 40.5 % Normal 36.0-46.0 [facility] Hemoglobin (Bld) [Mass/Vol] 13.8 g/dL Normal 11.5-15.5 [facility] Lymphocytes (Bld) [#/Vol] 2.71 10*3/uL Normal 1.00-4.00 [facility] Lymphocytes/100 WBC (Bld) 38.1 % Normal [facility] MCH 31.2 pG Normal 26.0-34.0 [facility] MCHC (RBC) [Mass/Vol] 34.1 g/dL Normal 30.5-36.0 [facility] MCV (RBC) [Entitic vol] 91.4 fL Normal 80.0-100.0 [facility] Monocytes/100 WBC (Bld) 4.6 % Normal [facility] Neutrophils/100 WBC (Bld) 55.0 % Normal [facility] NRBCs 0.0 /100 WBC Normal 0 [facility] Platelet mean volume (Bld) [Entitic vol] 9.7 fL Normal 9.0-12.7 [facility] Platelets (Bld) [#/Vol] 170 10*3/uL Normal 150-400 [facility] RBC (Bld) [#/Vol] 4.43 10*6/uL Normal 3.90-5.[address] [facility] WBC (Bld) [#/Vol] 7.11 10*3/uL Normal 3.70-11.[address] [facility] Reticulocyteon 08-19-2020 Abs Retic 0.096 M/uL Normal 0.0180-0.1 000 [facility] Retic% 2.2 % High 0.4-2.0 [facility] Vitamin B12on 08-19-2020 Cobalamin (Vitamin B12) [Mass/Vol] 421 pg/mL Normal 232-1245 [facility] Comment on above: Performed By: #### S ERMPA, B12 ####[facility] [address] [place], [place] [phone] Vital Signs Date Time Vital Sign Value Performing Clinician Bea krishnamurthy 10-08-2023 13:29-0400 Diastolic blood pressure 80 mm[Hg] Dontae Hernández [facility] 10-08-2023 13:29-0400 Heart rate 79 /min Dontae Hernández [facility] 10-08-2023 13:29-0400 Respiratory rate 20 /min Dontae Hernández [facility] 10-08-2023 13:29-0400 SaO2% (BldA) [Mass fraction] 94 % Dontae Hernández [facility] 10-08-2023 13:29-0400 Systolic blood pressure 134 mm[Hg] Dontae Hernández [facility] 09-05-2023 10:12-0400 Diastolic blood pressure 86 mm[Hg] Dontae Hernández [facility] 09-05-2023 10:12-0400 Mean blood pressure 105 mm[Hg] Dontae Hernández [facility] 09-05-2023 10:12-0400 Systolic blood pressure 142 mm[Hg] Dontae Hernández [facility] 09-05-2023 10:01-0400 Blood Pressure Location Dontae Hernández [facility] 09-05-2023 10:01-0400 Diastolic blood pressure 88 mm[Hg] Dontae Hernández [facility] 09-05-2023 10:01-0400 Heart rate 82 /min Dontae Hernández [facility] 09-05-2023 10:01-0400 SaO2% (BldA) [Mass fraction] 97 % Dontae Hernández [facility] 09-05-2023 10:01-0400 Systolic blood pressure 142 mm[Hg] Dontae Hernández [facility] 07-24-2023 13:50-0400 Blood Pressure Location Shaun Goode [facility] 07-24-2023 13:50-0400 Diastolic blood pressure 77 mm[Hg] Shaun Goode [facility] 07-24-2023 13:50-0400 Heart rate 85 /min Shaun Goode [facility] 07-24-2023 13:50-0400 Respiratory rate 16 /min Shaun Goode [facility] 07-24-2023 13:50-0400 Systolic blood pressure 135 mm[Hg] Mohamad Mouchli [facility] 07-02-2023 09:50-0400 Diastolic blood pressure 72 mm[Hg] Mohamad Mouchli [facility] 07-02-2023 09:50-0400 Heart rate 82 /min Mohamad Mouchli [facility] 07-02-2023 09:50-0400 Mean blood pressure 97 mm[Hg] Mohamad Mouchli [facility] 07-02-2023 09:50-0400 Respiratory rate 17 /min Mohamad Mouchli [facility] 07-02-2023 09:50-0400 SaO2% (BldA) [Mass fraction] 94 % Mohamad Mouchli [facility] 07-02-2023 09:50-0400 Systolic blood pressure 148 mm[Hg] Mohamad Mouchli [facility] 07-02-2023 09:40-0400 Diastolic blood pressure 72 mm[Hg] Mohamad Mouchli [facility] 07-02-2023 09:40-0400 Heart rate 80 /min Mohamad Mouchli [facility] 07-02-2023 09:40-0400 Mean blood pressure 92 mm[Hg] Mohamad Mouchli [facility] 07-02-2023 09:40-0400 Respiratory rate 11 /min Mohamad Mouchli [facility] 07-02-2023 09:40-0400 SaO2% (BldA) [Mass fraction] 93 % Mohamad Mouchli [facility] 07-02-2023 09:40-0400 Systolic blood pressure 132 mm[Hg] Mohamad Mouchli [facility] 07-02-2023 09:35-0400 Diastolic blood pressure 62 mm[Hg] Mohamad Mouchli [facility] 07-02-2023 09:35-0400 Heart rate 86 /min Mohamad Mouchli [facility] 07-02-2023 09:35-0400 Mean blood pressure 90 mm[Hg] Mohamad Mouchli [facility] 07-02-2023 09:35-0400 Respiratory rate 15 /min Mohamad Mouchli [facility] 07-02-2023 09:35-0400 SaO2% (BldA) [Mass fraction] 93 % Mohamad Mouchli [facility] 07-02-2023 09:35-0400 Systolic blood pressure 147 mm[Hg] Mohamad Mouchli [facility] 07-02-2023 09:25-0400 Body temperature 97.16 [degF] Mohamad Mouchli [facility] 07-02-2023 08:43-0400 Blood Pressure Location Mohamad Mouchli [facility] 07-02-2023 08:43-0400 Body temperature 96.8 [degF] Mohamad Mouchli [facility] 06-26-2023 12:17-0400 Blood Pressure Location Mohamad Mouchli [facility] 06-26-2023 12:17-0400 Diastolic blood pressure 82 mm[Hg] Shaun Gipsonli [facility] 06-26-2023 12:17-0400 Heart rate 80 /min Ramyad Mouchli [facility] 06-26-2023 12:17-0400 Respiratory rate 16 /min Shaun Gipsonli [facility] 06-26-2023 12:17-0400 Systolic blood pressure 138 mm[Hg] Shaun Gipsonli [facility] 06-21-2023 13:44-0400 Diastolic blood pressure 68 mm[Hg] Deonte Peraza [facility] 06-21-2023 13:44-0400 Heart rate 96 /min Deonte Peraza [facility] 06-21-2023 13:44-0400 SaO2% (BldA) [Mass fraction] 95 % Deonte Peraza [facility] 06-21-2023 13:44-0400 Systolic blood pressure 138 mm[Hg] Deonte Peraza [facility] 03-21-2023 13:30-0500 Body height 153.67 cm Carmen Conley Other [employer] [facility] [employer] Other 03-21-2023 13:30-0500 Body mass index (BMI) [Ratio] 30.54 kg/m2 Carmen Conley Other [employer] Other 03-21-2023 13:30-0500 Body weight 72.12 kg Carmen Conley Other [employer] Other 03-21-2023 13:30-0500 Diastolic blood pressure 79 mm[Hg] Carmen Conley Other [employer] Other 03-21-2023 13:30-0500 Systolic blood pressure 136 mm[Hg] Carmen Conley Other [employer] Other 01-24-2023 11:15-0400 Body height 153.67 cm Carmen Conley Other [employer] Other 01-24-2023 11:15-0400 Body mass index (BMI) [Ratio] 29.58 kg/m2 Carmen Conley Other [employer] Other 01-24-2023 11:15-0400 Body temperature 97.7 [degF] Carmen Conley Other [employer] Other 01-24-2023 11:15-0400 Body weight 69.85 kg Carmen Conley Other [employer] Other 01-24-2023 11:15-0400 Diastolic blood pressure 80 mm[Hg] Carmen Conley Other [employer] Other 01-24-2023 11:15-0400 SaO2% (BldA) [Mass fraction] 97 % Carmen Conley Other [employer] Other 01-24-2023 11:15-0400 Systolic blood pressure 137 mm[Hg] Carmen Conley Other [employer] Other 12-28-2022 13:30-0400 Body height 153.67 cm Carmen Conley Other [employer] Other 12-28-2022 13:30-0400 Body mass index (BMI) [Ratio] 29.96 kg/m2 Carmen Conley Other [employer] Other 12-28-2022 13:30-0400 Body weight 70.76 kg Carmen Conley Other [employer] Other 12-28-2022 13:30-0400 Diastolic blood pressure 64 mm[Hg] Carmen Conley Other [employer] Other 12-28-2022 13:30-0400 Systolic blood pressure 106 mm[Hg] Carmen Conley Other [employer] Other 08-07-2022 12:45-0400 Body height 153.67 cm Carmen Conley Other [employer] Other 08-07-2022 12:45-0400 Body mass index (BMI) [Ratio] 30.15 kg/m2 Carmen Conley Other [employer] Other 08-07-2022 12:45-0400 Body temperature 98.1 [degF] Carmen Conley Other [employer] Other 08-07-2022 12:45-0400 Body weight 71.22 kg Carmen Conley Other [employer] Other 08-07-2022 12:45-0400 Diastolic blood pressure 72 mm[Hg] Carmen Conley Other [employer] Other 08-07-2022 12:45-0400 SaO2% (BldA) [Mass fraction] 97 % Carmen Conley Other [employer] Other 08-07-2022 12:45-0400 Systolic blood pressure 132 mm[Hg] Carmen Conley Other [employer] Other 06-20-2022 12:00-0400 Body height 153.67 cm Carmen Conley Other [employer] Other 06-20-2022 12:00-0400 Body mass index (BMI) [Ratio] 30.54 kg/m2 Carmen Conley Other [employer] Other 06-20-2022 12:00-0400 Body weight 72.12 kg Carmen Conley Other [employer] Other 06-20-2022 12:00-0400 Diastolic blood pressure 70 mm[Hg] Carmen Conley Other [employer] Other 06-20-2022 12:00-0400 SaO2% (BldA) [Mass fraction] 98 % Carmen Conley Other [employer] Other 06-20-2022 12:00-0400 Systolic blood pressure 118 mm[Hg] Carmen Conley Other [employer] Other 06-12-2022 09:30-0500 Body height 153.67 cm Carmen Conley Other [employer] Other 06-12-2022 09:30-0500 Body mass index (BMI) [Ratio] 30.54 kg/m2 Carmen Conley Other [employer] Other 06-12-2022 09:30-0500 Body weight 72.12 kg Carmen Conley Other [employer] Other 06-12-2022 09:30-0500 Diastolic blood pressure 64 mm[Hg] Carmen Conley Other [employer] Other 06-12-2022 09:30-0500 SaO2% (BldA) [Mass fraction] 97 % Carmen Conley Other [employer] Other 06-12-2022 09:30-0500 Systolic blood pressure 116 mm[Hg] Carmen Conley Other [employer] Other 05-10-2022 11:00-0500 Body height 153.67 cm Carmen Conley Other [employer] Other 05-10-2022 11:00-0500 Body mass index (BMI) [Ratio] 30.54 kg/m2 Carmen Conley Other [employer] Other 05-10-2022 11:00-0500 Body weight 72.12 kg Carmen Conley Other [employer] Other 05-10-2022 11:00-0500 Diastolic blood pressure 62 mm[Hg] Carmen Conley Other [employer] Other 05-10-2022 11:00-0500 SaO2% (BldA) [Mass fraction] 97 % Carmen Conley Other [employer] Other 05-10-2022 11:00-0500 Systolic blood pressure 118 mm[Hg] Carmen Conley Other [employer] Other 04-20-2022 11:30-0500 Body height 153.67 cm Carmen Conley Other [employer] Other 04-20-2022 11:30-0500 Body mass index (BMI) [Ratio] 30.54 kg/m2 Carmen Conley Other [employer] Other 04-20-2022 11:30-0500 Body weight 72.12 kg Carmen Conley Other [employer] Other 04-20-2022 11:30-0500 Diastolic blood pressure 80 mm[Hg] Carmen Conley Other [employer] Other 04-20-2022 11:30-0500 SaO2% (BldA) [Mass fraction] 97 % Carmen Conley Other [employer] Other 04-20-2022 11:30-0500 Systolic blood pressure 126 mm[Hg] Carmen Conley Other [employer] Other 04-16-2022 15:15-0500 Body height 153.67 cm Carmen Conley Other [employer] Other 04-16-2022 15:15-0500 Body mass index (BMI) [Ratio] 30.35 kg/m2 Carmen Conley Other [employer] Other 04-16-2022 15:15-0500 Body weight 71.67 kg Carmen Conley Other [employer] Other 04-16-2022 15:15-0500 Diastolic blood pressure 82 mm[Hg] Carmen Conley Other [employer] Other 04-16-2022 15:15-0500 SaO2% (BldA) [Mass fraction] 97 % Carmen Conley Other [employer] Other 04-16-2022 15:15-0500 Systolic blood pressure 136 mm[Hg] Carmen Conley Other [employer] Other Encounters Encounter Date Encounter Type Care Provider Facility Start: 12-16-2023 End: 12-16-2023 ambulatory Nohemy Mohamud MD [facility]: [facility] Start: 11-25-2023 End: 11-25-2023 ambulatory Nohemy Mohamud MD Facility: [facility] Start: 10-28-2023 End: 10-28-2023 ambulatory Nohemy Mohamud MD Facility:[facility] Start: 10-08-2023 End: 10-08-2023 ambulatory PA-C Dontae Hernández Facility:[facility] Start: 10-08-2023 End: 10-08-2023 Patient encounter procedure Dontae Hernández [facility] Start: 10-01-2023 End: 10-01-2023 ambulatory PA-C Dontae Hernández Facility:[facility] Start: 10-01-2023 End: 10-01-2023 Patient encounter procedure Dontae Hernández [facility] Start: 09-05-2023 End: 09-05-2023 ambulatory XXXX NONE Facility:[facility] Start: 09-05-2023 End: 09-05-2023 Patient encounter procedure Dontae Hernández [facility] Start: 08-05-2023 End: 08-05-2023 ambulatory Deonte Peraza Facility:[facility] Start: 08-05-2023 End: 08-05-2023 Patient encounter procedure Deonte Peraza [facility] Start: 08-01-2023 End: 08-16-2023 Pre-admission assessment Deonte Peraza [facility] Start: 07-24-2023 End: 08-07-2023 Pre-admission assessment Shaun Goode [facility] Start: 07-24-2023 End: 07-24-2023 ambulatory Shaun Goode Facility:[facility] Start: 07-24-2023 End: 07-24-2023 Patient encounter procedure Shaun Goode [facility] Start: 07-02-2023 End: 07-02-2023 ambulatory Shaun Goode Facility:[facility] Start: 07-02-2023 End: 07-02-2023 Patient encounter procedure Shaun Goode [facility] Start: 06-26-2023 End: 06-26-2023 ambulatory Ramyad Aiden. Leonelaanjel Facility:[facility] Start: 06-26-2023 End: 06-26-2023 Patient encounter procedure Shaun Goode [facility] Start: 06-26-2023 End: 06-26-2023 ambulatory Ramyad AidenJeff Junitomaximo [facility] Start: 06-26-2023 End: 06-26-2023 Patient encounter procedure Shaun Goode [facility] Start: 06-21-2023 End: 06-21-2023 ambulatory Deonte Peraza Facility:[facility] Start: 06-21-2023 End: 06-21-2023 Patient encounter procedure Deonte Peraza [facility] Start: 06-18-2023 End: 06-18-2023 ambulatory MD Lucho GOINS Facility:[facility] Start: 06-18-2023 End: 06-18-2023 Patient encounter procedure CARMEN CONLEY [facility] Start: 06-13-2023 ambulatory JANUSZ Turner ity:[facility] Start: 05-14-2023 End: 05-14-2023 ambulatory Carmen Conley Other [employer] Other Start: 05-14-2023 Telephone encounter Carmen Conley [facility] Start: 04-16-2023 End: 04-16-2023 ambulatory ZULEIMA Wolfe FELTER Not Available Start: 04-03-2023 End: 04-03-2023 ambulatory Carmen Conley Other [employer] Other Start: 04-03-2023 Telephone encounter Carmen Conley [facility] Start: 04-02-2023 End: 04-02-2023 ambulatory Carmen Conley Other [employer] Other Start: 04-02-2023 Telephone encounter Carmen Conley [facility] Start: 03-21-2023 End: 03-21-2023 ambulatory Carmen Conley Other [employer] Other Start: 03-21-2023 Office outpatient vi sit 15 minutes Carmen Conley [facility] Start: 03-21-2023 Telephone encounter Carmen Conley [facility] Start: 03-04-2023 End: 03-04-2023 ambulatory ZULEIMA Wolfe FELTER Not Available Start: 02-06-2023 End: 02-06-2023 ambulatory Carmen Conley Other [employer] Other Start: 02-06-2023 Telephone encounter Carmen Conley [facility] Start: 02-01-2023 End: 02-01-2023 ambulatory Carmen Conley Other [employer] Other Start: 02-01-2023 Telephone encounter Carmen Conley [facility] Start: 01-24-2023 End: 01-24-2023 ambulatory Carmen Conley Other [employer] Other Start: 01-24-2023 Office outpatient vi sit 15 minutes Carmen Conley [facility] Start: 01-17-2023 End: 01-17-2023 ambulatory Carmen Conley Other [employer] Other Start: 01-17-2023 Telephone encounter Carmen Yael [facility] Start: 01-01-2023 End: 01-01-2023 ambulatory Carmen Conley Other [employer] Other Start: 01-01-2023 Telephone encounter Carmen Yael [facility] Start: 12-28-2022 End: 12-28-2022 ambulatory Carmen Conley Other [employer] Other Start: 12-28-2022 Patient encounter procedure Carmen Yael [facility] Start: 10-04-2022 End: 10-04-2022 ambulatory Carmen Conley Other [employer] Other Start: 10-04-2022 Telephone encounter Carmen Yael [facility] Start: 08-09-2022 End: 08-09-2022 ambulatory Carmen Yael Other [employer] Other Start: 08-09-2022 Telephone encounter Carmen Yael [facility] Start: 08-08-2022 Telephone encounter Carmen Yael [facility] Start: 08-08-2022 End: 08-09-[address] CARMEN CONLEY [facility] Other Start: 08-07-2022 End: 08-07-2022 ambulatory Carmen Conley Other [employer] Other Start: 08-07-2022 Office outpatient vi sit 15 minutes Carmen Conley [facility] Start: 07-31-2022 End: 07-31-2022 ambulatory Carmen Conley Other [employer] Other Start: 07-31-2022 Telephone encounter Carmen Conley [facility] Start: 07-24-2022 End: 07-24-2022 ambulatory Carmen Conley Facility:[facility] Start: 07-02-2022 End: 07-03-[address] CARMEN CONLEY Facility:[facility] Start: 06-20-2022 End: 06-20-2022 ambulatory Carmen Conley Other [employer] Other Start: 06-20-2022 Office outpatient vi sit 10 minutes Carmen Conley [facility] Start: 06-14-2022 End: 06-14-2022 ambulatory Carmen Conley Other [employer] Other Start: 06-14-2022 Telephone encounter Carmen Conley [facility] Start: 06-12-2022 Office outpatient vi sit 15 minutes Carmen Conley [facility] Start: 06-12-2022 End: 06-13-[address] CARMEN CONLEY [facility] Other Start: 05-10-2022 End: 05-10-2022 ambulatory Carmen Conley Other [employer] Other Start: 05-10-2022 Office outpatient vi sit 15 minutes Carmen Conley [facility] Start: 05-10-2022 Telephone encounter Carmen Conley [facility] Start: 05-03-2022 End: 05-03-2022 ambulatory Carmen Conley Other [facility] Other Start: 05-03-2022 Telephone encounter Carmen Conley [facility] Start: 04-23-2022 End: 04-24-[address] CARMEN CONLEY Facility:[facility] Start: 04-20-2022 End: 04-20-2022 ambulatory Carmen Conley Other [employer] Other Start: 04-20-2022 Office outpatient vi sit 25 minutes Carmen Conley [facility] Start: 04-17-2022 End: 04-17-2022 ambulatory Carmen Conley Other [employer] Other Start: 04-17-2022 Telephone encounter Carmen Conley [facility] Start: 04-16-2022 End: 04-16-2022 ambulatory Carmen Conley Other [employer] Other Start: 04-16-2022 Office outpatient charli sit 25 minutes Carmen Conley [facility] Start: 04-12-2022 End: 04-13-[address] CARMEN [...] 09-21-2020 Subsequent hospital visit by physician Mri [facility] (Lg Bore/1.5t) Radiology MRI Comment on above: [...] Urinary bladder stru cture (body structure) Shaun Wildmaximo Comment on above: 15/20 years ago Plan of Treatment Date Care Activity Detail Author Start: 09-27-2025 Lipid 1996 panel - Serum or Plasma Lipid Screening [facility] Start: 09-27-2025 LIPID SCREEN LIPID SCREEN [facility] Start: 01-08-2024 ambulatory Ambulatory Facility:[facility] Start: 09-28-2023 DIABETES SCREEN DIABETES SCREEN [facility] Start: 09-28-2023 Diabetes Screening Diabetes Screening [facility] Start: 12-07-2022 Influenza vaccination Influenza Vaccine (#1) [facility] Start: 04-08-2022 Advance Directive Discussion Advance Directive Discussion [facility] Start: 04-08-2022 Depression Assessment Depression Assessment [facility] Start: 12-07-2021 Influenza vaccination INFLUENZA (Season Ended) [facility] Start: 09-30-2021 Adult depression screening assessment DEPRESSION SCREENING [facility] Start: 04-08-2021 ADVANCE DIRECTIVE DISCUSSION ADVANCE DIRECTIVE DISCUSSION [facility] Start: 02-17-2020 Pneumococcal Vaccine: 65+ (3 - PPSV23 or PCV20) Pneumococcal Vaccine: 65+ (3 - PPSV23 or PCV20) [facility] Start: 01-07-2016 PNEUMOVAX AGE 65 AND OVER WITH 5YR LOOKBACK (#1) PNEUMOVAX AGE 65 AND OVER WITH 5YR LOOKBACK (#1) [facility] Start: 03-31-2015 SHINGRIX VACCINE (2 of 3) SHINGRIX VACCINE (2 of 3) [facility] Start: 2014 BONE DENSITY BONE DENSITY [facility] Start: 2014 Bone Density Screening Bone Density Screening [facility] Start: 2009 RSV Vaccine (1 - 1-dose 60+ series) RSV Vaccine (1 - 1-dose 60+ series) [facility] Start: 1994 COLOGUARD (FIT-DNA) COLOGUARD (FIT-DNA) [facility] Start: 1994 Colonoscopy COLONOSCOPY [facility] Start: 1994 COLORECTAL CANCER SCREENING COLORECTAL CANCER SCREENING [facility] Start: [address] COLONOGRAPHY [facility] Start: 1994 FECAL OCCULT BLOOD FECAL OCCULT BLOOD [facility] Start: 1994 SIGMOIDOSCOPY SIGMOIDOSCOPY [facility] Start: 1989 Mammography [facility] Start: 1968 HEPATITIS B (1 of 3 - Risk 3-dose series) HEPATITIS B (1 of 3 - Risk 3-dose series) [facility] Start: 1968 Urine microalbumin profile [facility] Start: 08-04-1967 HEPATITIS C SCREENING HEPATITIS C SCREENING [facility] Start: 1954 COVID-19 VACCINE (1) COVID-19 VACCINE (1) [facility] Start: 1950 HEPATITIS A (1 of 2 - Risk 2-dose series) HEPATITIS A (1 of 2 - Risk 2-dose series) [facility] Start: 02-02-1951 Covid-19 Vaccine (#1) Covid-19 Vaccine (#1) [facility] Immunizations Immunization Date Immunization Notes Care Provider [facility] 12-28-2022 pneumococcal polysaccharide vaccine, 23 valent Carmen Conley Other [facility] Other 12-28-2022 influenza, high dose seasonal, preservative-free Carmen Conley Other [facility] Other 07-04-2020 COVID-19 Vaccine Moderna - Documentation Purposes Only Carmen Conley Other [facility] Other 01-07-2020 influenza, high dose seasonal, preservative-free Mehrdad Aguilar MD Work Phone: [facility] 01-07-2020 influenza virus vaccine, unspecified formulation Mri Bore/1.5t) [facility] 11-27-2019 influenza virus vaccine, split virus (incl. purified surface antigen) Carmen Conley Other [facility] Other 01-06-2019 influenza, high dose seasonal, preservative-free Mehrdad Aguilar MD Work Phone: [facility] 01-01-2019 influenza virus vaccine, split virus (incl. purified surface antigen) Carmen Conley Other [facility] Other 01-01-2019 influenza virus vaccine, unspecified formulation Mohamad Mouchli [facility] 01-01-2019 Seasonal trivalent influenza vaccine, adjuvanted, preservative free Mehrdad Aguilar MD Work Phone: [facility] 01-13-2018 influenza nasal, unspecified formulation Mehrdad Aguilar MD Work Phone: [facility] 12-17-2017 influenza virus vaccine, unspecified formulation Mohamad Mouchli [facility] 12-17-2017 influenza, high dose seasonal, preservative-free Mehrdad Aguilar MD Work Phone: [facility] 02-05-2017 influenza, high dose seasonal, preservative-free Mehrdad Aguilar MD Work Phone: [facility] 04-09-2016 influenza virus vaccine, unspecified formulation Mohamad Momaximo [facility] 04-09-2016 influenza, injectabl e, quadrivalent, preservative free Mehrdad Aguilar MD Work Phone: [facility] 03-05-2016 influenza, high dose seasonal, preservative-free Mehrdad Aguilar MD Work Phone: [facility] 02-16-2015 influenza, high dose seasonal, preservative-free Mehrdad Aguilar MD Work Phone: [facility] 02-16-2015 pneumococcal conjuga te vaccine, 13 valent Mehrdad Aguilar MD Work Phone: [facility] 02-03-2015 zoster vaccine, live Mehrdad lacey MD Work Phone: [facility] 02-02-2015 influenza, high dose seasonal, preservative-free Mehrdad Aguilar MD Work Phone: [facility] 02-02-2015 pneumococcal conjuga te vaccine, 13 valroque Aguilar MD Work Phone: [facility] 03-24-2014 influenza, injectabl e, quadrivalent, contains preservative Mehrdad Aguilar MD Work Phone: [facility] 01-06-2013 influenza, high dose seasonal, preservative-free Mehrdad Aguilar MD Work Phone: [facility] 01-06-2011 pneumococcal polysaccharide vaccine, 23 valent Mehrdad Aguilar MD Work Phone: [facility] Payers Date Payer Category Payer Self-pay 2020 Private Health Insurance [facility] INDEMNITY [id number] 2020-Present [phone] [address] [place] [address] Indemnity [id number] 2020 Private Health Insurance [id number] 2006 Medicare MEDICARE RAILROA D MEDICARE RAILROAD PB ONLY [id number] 2006-Present [phone] [address] [address] [place] [address] Medicare [id number] 2006 Medicare MEDICARE MEDICAR E A AND B [id number] 2006-Present [phone] [address] [address] [place] [address] Medicare [id number] 2006 Unknown 1959 Medicare [id number] 1959 Private Health Insurance [id number] 2.16.840.1.822329.19 1949 Unknown [id number] 2.16.840.1.916161.3.579. 2.593 1949 Unknown [id number] 2.16.840.1.835559.3.579. 2.593 1949 Unknown [id number] 2.16.840.1.943551.3.579. 2.593 1949 Unknown [id number] 2.16.840.1.632120.3.579. 2.593 1949 Unknown [id number] 2.16.840.1.329849.3.579. 2.593 1949 Unknown [id number] 2.16.840.1.445670.3.579. 2.593 1949 Unknown [id number] 2.16.840.1.139908.3.579. 2.593 1949 Unknown [id number] 2.16.840.1.258843.3.579. 2.593 1949 Unknown [id number] 2.16.840.1.114987.3.579. 2.593 1949 Unknown [id number] 2.16.840.1.309172.3.579. 2.1259 1949 Unknown [id number] 2.16.840.1.674645.3.579. 2.1259 1949 Unknown [id number] 2.16.840.1.280931.3.579. 2.727 1949 Unknown [id number] 2.16.840.1.978012.3.579. 2.727 1949 Unknown [id number] 2.16.840.1.986774.3.579. 2.727 1949 Unknown [id number] 2.16.840.1.604875.3.579. 2.727 1949 Unknown [id number] 2.16.840.1.330512.3.579. 2.727 1949 Unknown [id number] 2.16.840.1.915074.3.579. 2.727 1949 Unknown [id number] 2.16.840.1.080382.3.579. 2.727 1949 Unknown [id number] 2.16.840.1.994708.3.579. 2.727 1949 Unknown [id number] 2.16.840.1.029498.3.579. 2.727 1949 Unknown [id number] 2.16.840.1.136026.3.579. 2.727 1949 Unknown [id number] 2.16.840.1.840589.3.579. 2.727 1949 Unknown [id number] 2.16.840.1.666134.3.579. 2.727 1949 Unknown [id number] 2.16.840.1.890593.3.579. 2.196 1949 Unknown [id number] 2.16.840.1.605648.3.579. 2.196 1949 Unknown [id number] 2.16.840.1.546223.3.579. 2.196 Unknown [id number] 2.16.840.1.574194.3.579. 2.531 Social History Date Type Detail Facility Start: 08-18-2020 End: 10-08-2023 Tobacco smoking status ORIS Never smoked tobacco [facility] Start: 08-18-2020 Tobacco use and exposure Smokeless tobacco non-user [facility] Start: 08-19-2020 End: 09-30-2020 Alcohol intake Ex-drinker (finding) [facility] Start: 1950 Sex Assigned At Not on file [facility] Start: 08-04-2020 End: 08-19-2020 Sex Assigned At [facility] Start: 08-04-2020 End: 08-19-2020 History of Social function [facility] National Score (1-100), lower number is lower risk Not on file [facility] Tobacco smoking status No Smokin g Status Entered [facility] [facility] Procedure Code Equipment Code Equipment Original Text Equi pment Identifier Dates BD Pen Needle Na no U/F 32G X 4 MM Functional Status Date Assessment Result Facility 10-08-2023 Functional Status N/A [facility] 09-05-2023 Functional Status No [facility] 07-24-2023 Functional Status N/A [facility] 07-02-2023 Functional Status N/A [facility] 06-26-2023 Functional Status N/A [facility] 06-21-2023 Functional Status N/A [facility] Clinical Notes 08-19-2020 to 07-03-2023 Note Date & Type Note Facility 07-03-2023 Note [id number] [facility] 07-02-2023 Hospital Discharg e instructions Patient Education 07/02/2023 09:33:43 Endoscopy, Care After Procedure [facility] ([facility]) Endoscopy Care After Procedure Please read the [...] blood. Document Released: 11/06/2004 Document Re-Released: 09/16/2006 [facility] Patient Information [employer]. 07/02/2023 09:33:36 Esophagitis Esophagitis Esophagitis is inflammation [...] Follow these instructions at home: Medicines Take qncw-lgd-oraragt and prescription medicines only as told by [...] powder, vinegar, hot sauces, and barbecue sauce. ?[place] fruit juices and citrus fruits, such as oranges, bentley, and limes. ?Tomato-based foods, such as red sauce, chili, salsa, and pizza with red sauce. ?Fried and fatty foods, such as donuts, kazakh fries, potato chips, and high-fat dressings. ?High-fat [...] provider. Document Revised: 10/03/2020 Document Reviewed: 10/03/2020 [employer] Patient Education 2022 [employer]. 07/02/2023 09:33:31 Hiatal Hernia Hiatal Hernia A [...] reduce GERD symptoms. Medicines. These may include: ?Uzdq-ose-zhpdwgg antacids. ?Medicines that make your stomach empty [...] may include: ?Fatty foods, like fried foods. ?[place] fruits, like oranges or lemon. ?Other foods [...] Do not drink alcohol. General instructions Take ptyz-hxf-gocbapm and prescription medicines only as told by [...] provider. Document Revised: 05/22/2022 Document Reviewed: 05/22/2022 [employer] Patient Education 2022 [employer]. Follow Up Care 06/26/2023 13:24:26 With:Rupa CERRATO, ANTIONETTE Luna, [facility] Address: When: Unknown Comments:Call for any problems. The office will reach out in about one week from procedure date. [facility] 07-02-2023 Note Endoscopy Care After Procedure Please [...] Document Re-Released: 09/16/2006 ExitCare? Patient Information ?2009 [employer]. Gastroenterology Esophagitis Esophagitis is inflammation of the [...] these instructions at home: Medicines ? Take sozd-tgw-yzvgeng and prescription medicines only as told by your health care provider. ? Do not take aspirin, ibuprofen, or other NSAIDs unless your health care provider told you to do so. ? If you have trouble taking pills: ? Use a pill splitter to decrease the size of the pi (more content not included)... [facility] 06-18-2023 Note Echocardiology Procedure Exam Date/Time Accession # Ordering Dr. Macedo Transthoracic 06/18/2023 08:41 EDT [id number] CARMEN CONLEY MD Complete CPT code 81786 [id number] Reason for Exam (Echo Transthoracic Complete) R07.9 Chest pain, unspecified Report [facility] [address] [place] [address] Adult Echocardiogram Report Name: IVELISSE GEE Study Date: 06/18/2023 06:57 AM BP: 117/66 mmHg Patient [facility] HR: 71 : 1950 Gender: Female Height: 60 in Age: 72 yrs Ethnicity: [facility] Weight: 155 lb Reason For Study: R07.9 Chest pain, unspecified BSA: 1.7 m2 History: HTN, DM, I have a leaky valve Ordering Physician: CARMEN CONLEY Referring Physician: CARMEN CONLEY Performed By: Katya Ho MATTHIEU Interpretation Summary No comparison study is available. [...] GOINS MD Transcribed by: KARYNA Technologist: LE [facility] 05-14-2023 Evaluation note Encounter Date Diagnosis Assessment Notes May, Type 2 diabetes mellitus with hyperglycemia (ICD-10 - E11.65) [facility] Other 12-27-2023 Evaluation note* Encounter Date Diagnosis Assessment Notes Treatment Notes Treatment Clinical Notes Mar, Type 2 diabetes mellitus with hyperglycemia (ICD-10 - E11.65) [facility] Other 12-26-2023 Evaluation note* Encounter Date Diagnosis Assessment Notes Treatment Notes Treatment Clinical Notes Mar, Type 2 diabetes mellitus with hyperglycemia (ICD-10 - E11.65) [facility] Other 12-14-2023 Evaluation note* Encounter Date Diagnosis Assessment Notes Treatment Notes Treatment Clinical Notes Mar, Panic attack (ICD-10 - F41.0) [facility] Other 12-14-2023 Evaluation note* Encounter Date Diagnosis [...] to continue with above medication as directed. [facility] Other 10-19-2023 Evaluation note* Encounter Date Diagnosis [...] normal chest x-ray on January 17 at [facility]. [facility] Other 09-22-2023 Evaluation note* Encounter Date Diagnosis [...] patient is sent home pleased, without concerns. [facility] Other 06-29-2023 Evaluation note* Encounter Date Diagnosis Assessment Notes Treatment Notes Treatment Clinical Notes Sep, Type 2 diabetes mellitus with hyperglycemia (ICD-10 - E11.65) [facility] Other 05-03-2023 Evaluation note* Encounter Date Diagnosis Assessment Notes Treatment Notes Treatment Clinical Notes August, RLQ abdominal pain (ICD-10 - R10.31) [facility] Other 05-02-2023 Evaluation note* Encounter Date Diagnosis Assessment Notes Treatment Notes Treatment Clinical Notes August, RLQ abdominal pain (ICD-10 - R10.31) Acute pain - assess with labs, CT. Discussed differential with pt. [facility] Other 03-15-2023 Evaluation note* Encounter Date Diagnosis [...] as her information was sent last week. [facility] Other 03-07-2023 Evaluation note* Encounter Date Diagnosis Assessment Notes Treatment Notes Treatment Clinical Notes Jun, Dysuria (ICD-10 - R30.0) Jun, Type 2 diabetes mellitus with hyperglycemia (ICD-10 - E11.65) Jun, History of sepsis (ICD-10 - Z86.19) Referral placed to Fire Alarm Technician as was suggested by Dr. William. [facility] Other 03-07-2023 Evaluation note* Encounter Date Diagnosis Assessment Notes Treatment Notes Treatment Clinical Notes Jun, Dysuria (ICD-10 - R30.0) Jun, Type 2 diabetes mellitus with hyperglycemia (ICD-10 - E11.65) Stop Januvia. Start ozempic for improved glucose control. Jun, History of sepsis (ICD-10 - Z86.19) Referral placed to Fire Alarm Technician as was suggested by Dr. William. [facility] Other 02-02-2023 Evaluation note* Encounter Date Diagnosis Assessment Notes Treatment Notes Treatment Clinical Notes May, EDU (generalized anxiety disorder) (ICD-10 - F41.1) [facility] Other 02-02-2023 Evaluation note* Encounter Date Diagnosis Assessment Notes Treatment Notes Treatment Clinical Notes May, Panic attack (ICD-10 - F41.0) Discussed stress, medication and health issues. Will refill med started by ER and monitor symptoms. May, Type 2 diabetes mellitus with hyperglycemia (ICD-10 - E11.65) add medication to improve glucose. Pt agrees to consider further referral if needed. [facility] Other 01-13-2023 Evaluation note* Encounter Date Diagnosis [...] antibiotic tomorrow, will check that it cleared. [facility] Other 01-09-2023 Evaluation note* Encounter Date Diagnosis Assessment Notes Treatment Notes Treatment Clinical Notes Apr, Sepsis due to Staphylococcus (ICD-10 - A41.2) Ivelisse feels that the oral antibiotics are not strong enough. Unsure of root cause of staph sepsis/bacteremia . Admitted to [place] for <24h. Requests referral to ID. Tristen concerned that she has immune deficiency or Hep C that she has been septic in the past. Apr, Type 2 diabetes mellitus with hyperglycemia (ICD-10 - E11.65) will continue to hold metformin due to renal labs. Apr, Elevated liver enzymes (ICD-10 - R74.8) Has been to GI in the past [facility] Other 01-05-2023 NotePROGRESS NOTE NOTE DATE: 04/12/2022 [...] prophylaxis: Lovenox. DISPOSITION: Home when medically stable.[id number] Note PROCEDURE: XR WRIST RT MIN 3 V, XR FOREARM RT 2V COMPARISON: HISTORY: Pain of right wrist FINDINGS: BONES:No acute fracture or dislocation of the forearm or wrist. I'll degenerative changes with joint space narrowing. SOFT TISSUES:Negative. No visible soft tissue swelling. EFFUSION:None visible. OTHER: Negative. IMPRESSION: Mild degenerative changes No acute abnormality Electronically authenticated by: HAYLEY PARHAM Date: 2022-01-07 11:23[facility]10-02-2022 NotePROCEDURE: XR WRIST RT MIN 3 V, XR FOREARM RT 2V COMPARISON: HISTORY: Pain of right wrist FINDINGS: BONES:No acute fracture or dislocation of the forearm or wrist. I'll degenerative changes with joint space narrowing. SOFT TISSUES:Negative. No visible soft tissue swelling. EFFUSION:None visible. OTHER: Negative. IMPRESSION: Mild degenerative changes No acute abnormality Electronically authenticated by: HAYLEY PARHAM Date: 2022-01-07 11:23[facility]05-06-2022 Miscellaneous Notes* Telephone Encounter - Marta Valero - 08/11/2021 12:13 PM EDT Called patient to reschedule an appointment per patient she no longer see Dr. Aguilar and that she had cancelled appointments last year confirmed with patient that she would like to cancel and did notneed to reschedule. [facility]21 NoteHNO ID: [id number] Author: Mehrdad Aguilar MD Service: ? Author Type: Physician Type: Progress Notes Filed: 10/02/2020 5:36 PM Note Text: PATIENT NAME: Ivelisse Gee DATE: 09/30/2020 PRIMARY CARE PHYSICIAN: Carmen Conley MD OTHER PHYSICIANS: Dr. Wahl (PCP [place], [place]), Dr. Magdaleno Castillo ([facility]) Portions of this encounter note [...] extremities and face. Negative (more content not included)...[facility]06-16-2021 NoteHNO ID: [id number] Author: RT Nancie(R) Service: ? Author Type: Senior It Assistant Type: Progress Notes Filed: 09/21/2020 11:30 AM [...] Gee DATE: September 21, 2020 TIME: 11:28 [facility]06-16-2021 NoteHNO ID: [id number] Author: RT Nancie(Bushra) Service: ? Author Type: Senior It Assistant Type: Progress Notes Filed: 09/21/2020 11:26 AM [...] Gee DATE: September 21, 2020 TIME: 11:18 [facility]05-25-2021 NoteHNO ID: [id number] Author: RT Akhil(R) Service: ? Author Type: Senior It Assistant Type: Progress Notes Filed: 08/30/2020 11:31 AM [...] BY: RT Akhil(R) August 30, 2020 11:30 [facility]05-14-2021 NoteHNO ID: [id number] Author: Mehrdad Aguilar MD Service: ? Author Type: Physician Type: Progress Notes Filed: 08/20/2020 1:40 PM Note Text: PATIENT NAME: Ivelisse Gee DATE: 08/19/2020 PRIMARY CARE PHYSICIAN: Carmen Conley MD OTHER PHYSICIANS: Dr. Wahl ((PCP [place], [place]) HPI: This is a 70 year [...] CBC. Since the patient's hospitalization she started riot-wdu-vkkgxlq supplements including multivitamin. She has had no [...] EXAM: Well developed/well n (more content not included)...[facility] Future Appointments Appointment Date:06/21/2023 01:30:00 PM Scheduled Provider:Karmen CERRATO, Deonte Roth [facility] Type:Cardiology New Patient () Appointment Date:06/26/2023 12:30:00 PM Scheduled Provider:Shaun Goode MD Location:[facility] App[facility]ment Type:[facility] Future Appointments Appointment Date:06/26/2023 12:30:00 PM Scheduled Provider:Shaun Goode MD Location:[facility] Appointment Type:BADH New Patient Appointment Date:08/22/2023 02:00:00 PM Scheduled Provider:Deonte Peraza MD Location[facility] Appointment Type:Cardiology Follow Up (FT) Future Scheduled Tests Radiology* NM Myocardial Spect Rest/Stress 1 Day 06/21/23 [facility] Future Appointments Appointment Date:07/02/2023 09:45:00 AM Scheduled Provider: Location:[facility] Appointment Type:Surgery FT Appointment Date:08/22/2023 02:00:00 PM Scheduled Provider:Deonte Peraza MD [facility]Card[facility] Follow Up (FT) Future Scheduled Tests Radiology* NM Myocardial Spect Rest/Stress 1 Day 06/21/23 [facility] Evaluation + Plan note Future Appointments Appointment Date:07/02/2023 09:45:00 AM Scheduled Provider: Location:[facility] Appointment Type:Surgery FT Appointment Date:08/22/2023 02:00:00 PM Scheduled Provider:Deonte Peraza MD [facility]iology Follow Up (FT) Diagnostic Tests Pending * Alpha Fetoprotein Tumor Marker 06/26/23 Future Scheduled Tests Radiology* NM Myocardial Spect Rest/Stress 1 Day 06/21/23 [facility] Future Appointments Appointment Date:08/22/2023 02:00:00 PM Scheduled Provider:Deonte Peraza MD Location[facility] Clinic Appointment Type:Cardiology Follow Up (FT) Future Scheduled Tests Radiology* NM Myocardial Spect Rest/Stress 1 Day 06/21/23 [facility] Future Appointments Appointment Date:08/05/2023 08:00:00 AM Scheduled Provider: [facility] Type:NM Myocard Spect Multi Rest/Stress-Res Appointment Date:08/05/2023 09:00:00 AM Scheduled Provider: [facility] App[facility] Type:NM Myocard Spect Multi Rest/Stress - R Appointment Date:08/05/2023 09:30:00 AM Scheduled Provider: [facility] Appoint[facility] Type:NM Myocard Spect Multi Rest/Stress-Str Appointment Date:08/05/2023 10:30:00 AM Scheduled Provider: [facility] Appointment Type:NM Myocar Spect Multi Rest/Stress - St Appointment Date:08/05/2023 11:00:00 AM Scheduled Provider: [facility] Type:CV Holter/Event (FT) Appointment Date:08/06/2023 10:30:00 AM Scheduled Provider: [facility] Type:US Abdominal/Pelvis (FT) Appointment Date:08/22/2023 02:00:00 PM Scheduled Provider:Deonte Peraza MD [facility] Type:Cardiology Follow Up (FT) Appointment Date:01/08/2024 12:15:00 PM Scheduled Provider:Shaun Goode MD Location:[facility] Appointment Date:08/15/2023 09:00:00 AM Scheduled Provider: [facility] Appointment Type:NM Myocard Spect Multi Rest/Stress-Res Appointment Date:08/15/2023 10:00:00 AM Scheduled Provider: [facility] Appointment Type:NM Myocard Spect Multi Rest/Stress - R Appointment Date:08/15/2023 10:30:00 AM Scheduled Provider: [facility] Appointment Type:NM Myocard Spect Multi Rest/Stress-Str Appointment Date:08/15/2023 11:30:00 AM Scheduled Provider: [facility] Appointment Type:NM Myocar Spect Multi Rest/Stress - St Appointment Date:08/27/2023 01:00:00 PM Scheduled Provider:Dontae Hernández PA-C [facility] Type:Cardiology Follow Up (FT) Appointment Date:01/08/2024 12:15:00 PM Scheduled Provider:Shaun Goode MD Location:[facility] Appointment Type:BADH Follow Up Future Scheduled Tests Laboratory* Alpha Fetoprotein Tumor Marker 07/24/23 * Alpha Fetoprotein Tumor Marker 01/23/24 * CBC w/ Auto Diff 07/24/23 * CBC w/ Auto Diff 01/23/24 * Comprehensive Metabolic Panel 07/24/23 * Comprehensive Metabolic Panel 01/23/24 * PT 07/24/23 * PT 01/23/24 Radiology* NM Myocardial Spect Rest/Stress 1 Day 08/15/23 * US Liver 08/16/23 [facility] Future Appointments Appointment Date:08/27/2023 01:00:00 PM Scheduled Provider:Dontae Hernández PA-C [facility] Type:Cardiology Follow Up (FT) Appointment Date:01/08/2024 12:15:00 PM Scheduled Provider:Shaun Goode MD Location:[facility] Appointment Type:BAD Follow Up Future Scheduled Tests Laboratory* Alpha Fetoprotein Tumor Marker 07/24/23 * Alpha Fetoprotein Tumor Marker 01/23/24 * CBC w/ Auto Diff 07/24/23 * CBC w/ Auto Diff 01/23/24 * Comprehensive Metabolic Panel 07/24/23 * Comprehensive Metabolic Panel 01/23/24 * PT 07/24/23 * PT 01/23/24 Radiology* US Liver 08/16/23 [facility] Future Appointments Appointment Date:10/08/2023 01:45:00 PM Scheduled Provider:Dontae Hernández PA-C [facility] Type:Cardiology Follow Up (FT) Appointment Date:01/08/2024 12:15:00 PM Scheduled Provider:Shaun Goode MD Location:[facility] Appointment Type:BADH Follow Up Future Scheduled Tests Laboratory* Alpha Fetoprotein Tumor Marker 07/24/23 * Alpha Fetoprotein Tumor Marker 01/23/24 * CBC w/ Auto Diff 07/24/23 * CBC w/ Auto Diff 01/23/24 * Comprehensive Metabolic Panel 07/24/23 * Comprehensive Metabolic Panel 01/23/24 * PT 07/24/23 * PT 01/23/24 Radiology* NM Myocardial Spect Rest/Stress 1 Day 09/06/23 * US Liver 08/16/23 [facility] Future Appointments Appointment Date:10/08/2023 01:45:00 PM Scheduled Provider:Dontae Hernández PA-C [facility] Type:Cardiology Follow Up (FT) Appointment Date:01/08/2024 12:15:00 PM Scheduled Provider:Shaun Goode MD Location:[facility] Appointment Type:[facility] Follow Up Future Scheduled Tests Laboratory* Alpha Fetoprotein Tumor Marker 07/24/23 * Alpha Fetoprotein Tumor Marker 01/23/24 * CBC w/ Auto Diff 07/24/23 * CBC w/ Auto Diff 01/23/24 * Comprehensive Metabolic Panel 07/24/23 * Comprehensive Metabolic Panel 01/23/24 * PT 07/24/23 * PT 01/23/24 Radiology* US Liver 08/16/23 [facility] Future Appointments Appointment Date:01/08/2024 12:15:00 PM Scheduled Provider:Shaun Goode MD Location:[facility] Appointment Type:[facility] Follow Up Appointment Date:04/14/2024 01:00:00 PM Scheduled Provider:Dontae Hernández PA-C [facility] Type:Cardiology Follow Up (FT) Future Scheduled Tests Laboratory* Alpha Fetoprotein Tumor Marker 07/24/23 * Alpha Fetoprotein Tumor Marker 01/23/24 * CBC w/ Auto Diff 07/24/23 * CBC w/ Auto Diff 01/23/24 * Comprehensive Metabolic Panel 07/24/23 * Comprehensive Metabolic Panel 01/23/24 * PT 07/24/23 * PT 01/23/24 Radiology* US Liver 08/16/23 [facility] Center[facility] noteNo InformationNort Pareto [employer] Other Evaluation note* Diagnosis Thrombocytopenia (HCC) Thrombocytopenia, unspecified 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 documented in this encounter [facility] general Narrative - Reported* Type Description [...] History septic shock Hospitalization History Sepsis 07/07/2020 [facility] Other [facility] general Narrative - Reported* Type Description Date [...] History septic shock Hospitalization History Sepsis 07/07/2020 [facility] Other history general Narrative - Reported* Type [...] tonsillectomy and adenoidectomy Hospitalization History septic shock 9 Hospitalization History Sepsis 07/07/2020 Hospitalization History Covid positive 01/17/23 [facility] Other Hospital course Narrative No data available for this section [facility] Dis[facility] instructions No data available for this section [facility] CenterProgress note No data available for this section [facility] Summary Purpose Family History No Family History [...] Callahan - will scan in reports from [facility] last week Diagnosis 1 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 [place], [place],[address] Referred Provider Specialty Infectious D isease Referral Priority Routine General Notes Itzel Parekh 03:10:38 PM >received today, labs, and notes attached, locked and faxed P2P Itzel Parekh 04/18/2022 10:54:24 AM >per Dr. Callahan pt does not need to be seen to treat Reason 06/11/22 Labs pend ing, has fibro. strong family history of autoimmune issues. Diagnosis 1 Myalgia (M79.10) Referral Organization [facility] [employer] Referring Provider First Name Carmen Referring Provider Last Name Conley Referring Provider Specialty [facility] Referred Organization [facility] Referred Provider Daniel Gomez Referred Address [address] [place],[address] Referred Provider Specialty Rheumatology Referral Priority Routine Referral Appointment Date 2022-06-11 General Notes Itzel Parekh 03:45:56 PM >received today, labs pending. ins card attached, notes locked and referral faxed Itzel Parekh 04/27/2022 10:22:51 AM >faxed first attempt letter Itzel Parekh 04/30/2022 02:17:43 PM >received fax with appt date and time Reason 06/28/22 Pt wants to see the [employer] in [facility] - phone is [phone]. Please send same info that was sent to the referral for Dr. Gomez. Thanks Diagnosis 1 Dysuria (R30.0) Referral Organization [facility] [employer] Referring Provider First Name Carmen Referring Provider Last Name Conley Referring Provider Specialty [facility] So Protect Me Referred Organization Unknown Facility Referred Provider Specialty Immunology Referral Priority Routine Referral Appointment Date 2022-06-28 General Notes Itzel Parekh 11:00:51 AM >received today, attachments made, notes locked, referral faxed Itzel Parekh 06/20/2022 01:01:04 PM >faxed first attempt letter Itzel Parekh 06/21/2022 08:59:47 AM >RECEIVED FAX WITH APPT DATE AND TIME Clinical Notes p: [phone] f: [phone] Reason 06/28/22 Pt wants to see the [employer] in [facility] - phone is [phone]. Please send same info that was sent to the referral for Dr. Gomez. Thanks Diagnosis 1 Dysuria (R30.0) Referral Organization [facility] [employer] Referring Provider First Name Carmen Referring Provider Last Name Conley Referring Provider Specialty [facility] Referred Organization Unknown Facility Referred Provider Specialty [...] for review. Closing referral Clinical Notes p: [phone] f: [phone] Additional Source Comments INFORMATION SOURCE (unrecogn ized section and content) DATE CREATED AUTHOR 02/05/2021 [facility] DATE CREATED AUTHOR AUTHOR'S ORGANIZ ATION 08/12/2021 [facility] DATE CREATED AUTHOR AUTHOR'S ORGANIZ ATION 07/28/2022 [facility] DATE CREATED AUTHOR AUTHOR'S ORGANIZ ATION 08/16/2022 [facility] DATE CREATED AUTHOR AUTHOR'S ORGANIZ ATION 04/17/2023 [facility] dical [facility] EPIC DATE CREATED AUTHOR AUTHOR'S ORGANIZ ATION 10/09/2023 [facility] [facility] DATE CREATED AUTHOR AUTHOR'S ORGANIZ ATION 12/22/2023 [facility] [place] Source Comments (unrecognize d section and content) In the event this informatio n is protected by the Federal Confidentiality of Alcohol and Drug Abuse Patient Records regulations: The Federal rules restrict any use of the information to criminally investigate or prosecute any alcohol or drug abuse patient.[facility] the event this information is protected by the Federal Confidentiality of Alcohol and Drug Abuse Patient Records regulations: The Federal rules restrict any use of the information to criminally investigate or prosecute any alcohol or drug abuse patient.[facility] Reason for Visit (unrecogniz ed section and content) Reason Comments Appointment Care Teams (unrecognized sec tion and content) Graphics Coordinator Relationship Specialty Start Date End Date Carmen Conley MD [address] [place] [address] PCP - General Family Practice 08/04/20 Graphics Coordinator Relationship Specialty Start Date End Date Carmen Conley MD [address] [place] [address] PCP - General Family Medicine [...] BE BASED ON THE PRIMARY CLINICAL RECORDS. [facility]. provides no warranty or guarantee of the accuracy or completeness of information in this document.
--- NOTE | 2023-12-26 08:47 | PM.CN ---
Consult Note: HPI Data of Consult Patient: known to practice within the last 3 years Consult date: 11/25/23 Requesting Physician: Mary Sheth NP Primary Care Provider: Flor Mosqueda MD Consult Narrative Reason for consult: neck, right arm, low back, right leg pain Narrative: [id number] who presents for assessment. worsening pain from back to right leg.. lumbar mri reviewed, which shows degenerative changes in lower back, including disc bulging at l4-5 and stenosis at l5-s1. no imaging of neck available, patient declined to update cervical xray. finding benefit to residential care officer. states gabapentin only makes her tired, but does not affect symptoms so she discontinued. currently taking duloxetine 60mg HS with benefit. denies adverse med side effects. recent Right L4/5 L5/S1 TFESI 100% improvement in radicular/stenosis symptoms, continues to have moderate to severe right SIJ pain with standing and walking. cc:: CC: Mary Sheth NP Review of Systems ROS Status of ROS 10 or more systems reviewed and unremarkable except as noted in history and below Musculoskeletal Reports: joint pain PFSH PFSH Medical History (Updated 12/26/23 @ 08:55 by Mary Sheth NP) Sjogren syndrome ?M35.00 - Sjogren syndrome, unspecified (ICD-10) Hypothyroidism ?E03.9 - Hypothyroidism, unspecified (ICD-10) Low back pain ?M54.50 - Low back pain, unspecified (ICD-10) High cholesterol ?E78.00 - Pure hypercholesterolemia, unspecified (ICD-10) Cystocele with rectocele ?N81.10 - Cystocele, unspecified (ICD-10) ?N81.6 - Rectocele (ICD-10) Rheumatoid arthritis ?M06.9 - Rheumatoid arthritis, unspecified (ICD-10) Fibromyalgia ?M79.7 - Fibromyalgia (ICD-10) Anxiety ?F41.9 - Anxiety disorder, unspecified (ICD-10) Acid reflux ?K21.9 - Gastro-esophageal reflux disease without esophagitis (ICD-10) Diabetes ?E11.9 - Type 2 diabetes mellitus without complications (ICD-10) Cirrhosis of liver ?K74.60 - Unspecified cirrhosis of liver (ICD-10) High blood pressure ?I10 - Essential (primary) hypertension (ICD-10) Irregular heart beat ?I49.9 - Cardiac arrhythmia, unspecified (ICD-10) Surgical History H/O bladder repair surgery ?Z98.890 - Other specified postprocedural states (ICD-10) History of cholecystectomy ?Z90.49 - Acquired absence of other specified parts of digestive tract (ICD-10) H/O: hysterectomy ?Z90.710 - Acquired absence of both cervix and uterus (ICD-10) H/O arthroscopy of shoulder ?Z98.890 - Other specified postprocedural states (ICD-10) History of tonsillectomy and adenoidectomy ?Z90.89 - Acquired absence of other organs (ICD-10) Social History Smoking status: Never smoker Little interest or pleasure in doing things: not at all Feeling down, depressed, or hopeless: not at all Meds Home Medications and Allergies Home Medications ?Medication ?Instructions ?Recorded ?Confirmed ?Type benazepril 20 mg tablet 20 mg PO DAILY 01/17/23 12/19/23 History citalopram 40 mg tablet (Celexa) 40 mg PO DAILY 01/17/23 12/19/23 History levothyroxine 50 mcg tablet 50 mcg PO DAILY 01/17/23 12/19/23 History (Euthyrox) trazodone 50 mg tablet 50 mg PO DAILY 01/17/23 12/19/23 History atorvastatin 10 mg tablet 10 mg PO QPM 05/25/23 12/19/23 History lorazepam 0.5 mg tablet (Ativan) 0.25 mg PO DAILY PRN anxiety 10/28/23 12/19/23 History metoprolol tartrate 25 mg tablet 25 mg PO DAILY 10/28/23 12/19/23 History pantoprazole 40 mg tablet,delayed 40 mg PO DAILY 10/28/23 12/19/23 History release tizanidine 4 mg capsule 4 mg PO DAILY 10/28/23 12/19/23 History diphenhydramine HCl 25 mg tablet 25 mg PO Q8H 12/16/23 12/16/23 History (Allergy Medicine) cephalexin 500 mg capsule 500 mg PO BID 10 days #20 caps 12/19/23 Rx Allergies Allergy/AdvReac Type Severity Reaction Status Date / Time adhesive tape Allergy Unknown Rash Verified 12/19/23 19:08 Sulfa (Sulfonamide Allergy Unknown Rash Verified 12/19/23 19:08 Antibiotics) Exam Narrative Exam Narrative: Psych-alert and oriented x 3. Attentive and appropriate, constitutionally normal, displays normal mood and affect per situation. There are no obvious deficits in memory, reasoning, or intellect.? Skin-no obvious rashes, bruising, erythema noted to the patient's area of pain.? Extremities- extremities are warm with minimal edema and palpable pulses. Lumbar-tenderness to palpation noted in the lumbar spine and paraspinal musculature. Pain is elicited with flexion, extension, and lateral rotation of the lumbar spine. Range of motion is diminished with these motions. Facet loading maneuvers are positive. Strength-noted to be unremarkable with the exception of decreased strength rated at 4 out of 5 in right quadriceps femoris, anterior tibialis. Sensory-no notable sensory deficits in the bilateral lower extremities to touch or pinprick in all dermatomal distributions Sacroiliac - tender to palpation over right PSIS. Positive Parrish's on right. Positive thigh thrust on right. Coordination remains intact.? Gait remains non-antalgic. Assessment and Plan Assessment and Plan (1) Sacroiliitis: (2) Lumbar stenosis with neurogenic claudication: (3) Lumbar spondylosis: Plan continue current medications proceed with right SIJ injection under fluoroscopy for sacroiliitis, risks vs benefits reviewed f/u 1-2 weeks after injection
== END 2023-12-26 08:29 | disposition home or self-care (01) ==
LOC: PM 08:29
PROVIDERS: PCP Family Medicine; Visit Provider Nurse Practitioner
DX: M46.1 Sacroiliitis, not elsewhere classified (principal); M48.062 Spinal stenosis, lumbar region with neurogenic claudication; M47.816 Spondylosis without myelopathy or radiculopathy, lumbar region
CPT/HCPCS: G0463

== ENCOUNTER 2023-12-31 08:51 | Outpatient (OUT) | payer MEDICARE, OTHER, SELFPAY ==
--- OUTSIDE RECORDS SUMMARY | 2023-12-31 09:07 | XMS_ITS | CCD ---
Author Organization [facility] Care Team Providers Care Gathering Worker Name Role Phone Carmen Conley MD Primary [...] CONLEY, DR CARMEN Riggins Primary Care Unavailable GOLDEN, DR HAYLEY Martinez Consulting Unavailable CONLEY, DR [...] CARMEN Riggins Primary Care Unavailable CONLEY, DR CAMREN Riggins Consulting Unavailable Melina, Caro Consulting Unavailable [...] Translations: [sulfa drugs] Drug Allergy Weal (disorder) [facility] (2 sources) Latex Drug Allergy 09-07-19 17 Unknown [facility] (2 sources) Sulfonamides (Antibiotic) Drug Allergy 09-06-19 17 Anaphylaxis [facility] (20 sources) Latex Propensity to adverse reactions Unknown [employer] Other (20 sources) Sulfonamides (Antibiotic) Propensity to adverse reactions Unknown [employer] Other (1 source) Latex Drug allergy (disorder) 10-15-19 16 [facility] (1 source) Sulfonamides (Antibiotic) Drug allergy (disorder) 08-19-19 13 [facility] (13 sources) sulfADIAZINE Drug Allergy 09-12-19 18 Comment:RABIAA [employer] Other (12 sources) Adhesive bandage; Translations: [Adhesive Bandage] Drug allergy Eruption of skin (disorder) [facility] (11 sources) Sulfonamides (Antibiotic); Translations: [sulfa drugs] Drug allergy Weal (disorder) [facility] Medications Current Medications Medication Drug Class(es) Dates Sig (Normalized) Sig (Original) [id number] actuat albuterol 0.09 mg/actuat metered dose [...] Ordered take 1 tablet by mouth once cral y Levothyroxine Sodium 50 MCG TAKE 1 [...] Daily, # 30 cap(s), Refills(s) 5, Pharmacy: [facility]/pharmacy #[id number], 155, cm, 06/26/23 12:22:00 EDT, Height/Length Dosing, [...] Daily, # 30 tab(s), Refills(s) 2, Pharmacy: [facility]/pharmacy #[id number], 155, cm, 09/05/23 10:04:00 EDT, Height/Length [...] Daily, # 90 tab(s), Refills(s) 3, Pharmacy: [facility]/pharmacy #[id number], 153, cm, 07/24/23 13:54:00 EDT, Height/Length [...] sources) Long-term current use of insulin; 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 Substitutions may have occurred due to the [...] Ozempic, Sub (more content not included)... Normal [facility] Comment on above: Result Comment: Elec tronically Signed By: Edgar BOUDREAUX, Dontae Wolfe\.elyse\Date and Time Signed: 10/08/23 13:53 EDT NM Myocardial Spect Rest/Str ess 1 Dayon 10-02-2023 NM Myocardial Spect Rest/Stress 1 Day Exam Date/Time: 10/01/2023 14:13 EDT Reason for Exam: ventricular tachycardia;Other (please specify) Report [facility] [address] [place] [address] Nuclear Stress Report Name: IVELSISE GEE Study Date: 10/01/2023 12:32 PM Patient Location: [facility] : 1950 (M/d/yyyy) Gender: Female Age: 73 yrs Ethnicity: T Reason For Study: Other (please specify) Ordering Physician: Dontae Hernández Referring Physician: Dontae Hernández Protocol 81487 Pharmacologic Lexiscan stress with Isotope. Study Protocol: [...] Signed by: Deonte Peraza MD Transcribed by: [facility] Technologist: ISAAC Wahl [facility] Consent for Treatmenton 09-07 Consent for Treatment [id number]#1.00TIF F [facility] Monitor Recordon 10-01-2023 Monitor Record [id number]#1.00TIF F [facility] Event Monitoron 09-30-2023 Event Monitor EVENT [...] BY: Ciaran Villatoro MD ca Dictated: 09/28/2023 [id number] Transcribed: 09/30/2023 [facility] Comment on above: Result Comment: Elec tronically Signed By: Shauna CERRATO, Ciaran Mccabe\.br\Date and Time Signed: 09/30/23 13:51 EDT Consent for Treatmenton 08-08 Consent for Treatment [id number]#1.00TIF F [facility] Heart and Vascular Office/Cl inic Noteon [...] Daily, # 30 tab(s), Refills(s) 2, Pharmacy: [facility]/pharmacy #[id number], 155, cm, 09/05/23 10:04:00 EDT, Height/Length [...] with voice recognition artificial intelligence software, specifically [employer], [employer] and or [employer]. Substitutions may have occurred due to the [...] Father. Immunizations [facility] (more content not included)... [facility] Comment on above: Result Comment: Elec tronically Signed By: Edgar BOUDREAUX, Dontae Wolfe\.elyse\Date and Time Signed: 09/05/23 12:53 EDT Physician Orderon 09-05-2023 Physician Order [id number]#1.00T IFF [facility] Monitor Recordon 09-03-2023 Monitor Record [id number]#1.00TI FF [facility] Consent for Treatmenton 07-08 Consent for Treatment [id number]#1.00TIF F [facility] Ambulatory Visit Summaryon 0 07-24-2023 Ambulatory [...] EDT With: Rupa CERRATO, Shaun Xiao Where: [facility] Normal [facility] Gastroenterology Office/Clin ic Noteon 07-24-2023 [...] 1-2 bowel movements every day by using yfvn-uqd-gidsuch laxatives such as senna Advised to massage [...] Daily, # 30 cap(s), Refills(s) 5, Pharmacy: [facility]/pharmacy #[id number], 155, cm, 06/26/23 12:22:00 EDT, Height/Length Dosing, 72.1, kg, 06/26/23 12:22:00 EDT, Weight Dosing pantoprazole, 40 mg = 1 tab(s), Oral, Daily, # 90 tab(s), Refills(s) 3, Pharmacy: [facility]/pharmacy #[id number], 153, cm, 07/24/23 13:54:00 EDT, Height/Length [...] virus vaccine, inactivated 04/09/2016 Recorded Normal [facility] Comment on above: Result Comment: Elec tronically Signed By: Rupa CERRATO, Shaun Resendiz.br\Date and Time Signed: 07/24/23 14:16 EDT IntraOperative Documentson 0 07-04-2023 IntraOperative Documents [id number]#1.00TI FF [facility] Consenton 07-03-2023 Consent [id number]#1.00TI FF [facility] Discharge Instructionson Discharge Instructions [id number]#1.00TI [facility] Main OR Intraoperative Recor don 07-03-2023 Main OR Intraoperative Record IntraOp Document Type FT Summary Primary Physician: Shaun Goode MD Finalized Date/Time: 07/03/23 11:58:54 Pt. Name: MARLENIVELISSE/Sex: 1950 Female Med Rec #: [id number] Physician: Shaun Goode MD Financial #: [id number] Pt. Type: O Room/Bed: / Admit/Disch: 07/02/23 [...] Alicia MARC, Aba Mcgill CRNA Role Performed Line Assembler - Primary DETENTION DEPUTY Time In 07/02/23 09:08:00 07/02/23 09:08:00 Time [...] and tissue Entry 1 Skin Integrity Intact, Ritchey, Warm, and Skin Abnormality No Dry Outcomes [...] Yes Left (more content not included)... [facility] Postoperative Documentson Postoperative Documents [id number]#1.00TI FF Normal [facility] Progress Note-Physicianon Progress Note-Physician Patient: [...] selected or recorded. Histories Procedure history: Bladder ([id number]). Comments: 06/26/2023 12:18 EDT - Nancy Cuenca 15 years ago Gallbladder ([id number]). Hysterectomy ([id number]). Arm (4736350431). Hand ([id number]). Social History Social & Psychosocial Habits Tobacco 06/26/2023 Risk Assessment: Denies Tobacco Use 06/26/2023 Tobacco Use: Never (less than 100 in l . Physical Examination Airway: Mallampati classification: II (soft palate, fauces, uvula visible). Respiratory: adequate air exchange. Cardiovascular: Regular rhythm. Plan [place] [employer] Anesthesiologists (ASA) physical status classification: Class II. Anesthetic Preoperative Plan: Anesthesia General. [facility] Comment on above: Result Comment: Elec tronically Signed By: Brant Friedman Jr, DO\.br\Date and Time Signed: 07/03/23 15:21 EDT Progress Note-Physician Patient: IVELISSE GEE Age: 72 years Sex: Female : 1950 Associated Diagnoses: None Author: Brant Friedman Jr, DO Postoperative Information Postoperative disposition: Postoperative disposition: To PACU. Optimetrix number: Optimetrix number [id number]. Anesthetic utilized: General. Health Status Allergies: Allergic [...] when meets criteria ( To home ). [facility] Comment on above: Result Comment: Elec tronically Signed By: Brant Friedman Jr, DO\harvinder\Date and Time Signed: 07/03/23 15:20 EDT Consent for Treatmenton 06-07 Consent for Treatment [id number]#1.00TIF F [facility] Discharge Instructionson Discharge Instructions IVELISSE GEE [...] Follow Up with Rupa CERRATO, Shaun Xiao [facility] When: Comments: Call for any problems. The [...] Document Re-Released: 09/16/2006 ExitCare? Patient Information ?2009 [employer]. Esophagitis Esophagitis is inflammation of the esophagus. [...] to the (more content not included)... Normal [facility] Comment on above: Result Comment: [...] Daily, # 30 cap(s), Refills(s) 5, Pharmacy: [facility]/pharmacy #[id number], 155, cm, 06/26/23 12:22:00 EDT, Height/Length Dosing, [...] status post biopsies Images Procedure images: Rec_video_ [id number].jpg Rec_hd_video_ [id number].jpg Rec_hd_video_ [id number].jpg Rec_hd_video_ [id number].jpg Rechdvideo [id number].jpg Rec_hd_video_ [id number].jpg . Post-Procedure Complications: none. Estimated blood loss: none. Specimens: sent to pathology. Devices/ implants: none left in place. Impression and Plan EGD: Diagnosis: Esophagitis, reflux (UOV18-CN K21.00, Working, Medical). Course: Progressing as expected. Education and Follow-up: Counseled: Family. Notes: Start Protonix 40 mg once daily Might benefit from Carafate in the future. [facility] Comment on above: Other Comment: Kathy hernandez Attachment - attachment storage system not supported [id number] Can be viewed in source system Missing Attachment - attachment storage system not supported [id number] Can be viewed in source system Missing Attachment - attachment storage system not supported [id number] Can be viewed in source system Missing Attachment - attachment storage system not supported [id number] Can be viewed in source system Missing Attachment - attachment storage system not supported [id number] Can be viewed in source system Missing Attachment - attachment storage system not supported [id number] Can be viewed in source system Main OR PACU I Recordon 06-07 Main OR PACU I Record PACU Phase I Docum ent Type FT Summary Primary Physician: Shaun Goode MD Finalized Date/Time: 07/02/23 10:08:53 Pt. Name: IVELISSE GEE/Sex: 1950 Female Med Rec #: [id number] Physician: Shaun Goode MD Financial #: [id number] Pt. Type: O Room/Bed: / Admit/Disch: 07/02/23 [...] Signed By: Elma Vanessa I 07/02/23 10:08 [facility] Main OR Preoperative Recordo n 07-02-2023 Main OR Preoperative Record Holding Area Document Type FT Summary Primary Physician: Shaun Goode MD Finalized Date/Time: 07/02/23 08:43:45 Pt. Name: IVELISSE GEE/Sex: 1950 Female Med Rec #: [id number] Physician: Shaun Goode MD Financial #: [id number] Pt. Type: O Room/Bed: / Admit/Disch: 07/02/23 [...] By: Alex Calhoun RN 07/02/23 08:43 Normal [facility] Monitor Recordon 07-02-2023 Monitor Record [id number]#1.00TI FF Normal [facility] Monitor Record [id number]#1.00TI FF Normal [facility] AFPon 06-27-2023 AFP.tumor marker [Mass/Vol] 3.5 ng/mL Invalid Interpretation Code 0.0-9.2 [facility] Comment on above: Result Comment: [employer] Electrochemiluminescence Immunoassay (ECLIA) Values obtained with different assay methods or kits cannot be used interchangeably. Results cannot be interpreted as absolute evidence of the presence or absence of malignant disease. This test is not interpretable in females. Performed at: [address] [id number] PhD Isidoro Pak Performed By: #### 2 [id number] ####[facility] [address] [place] [address] Consent for Procedure/Surger yon 06-27-2023 Consent for Procedure/Surgery [id number]#1.00TIF F Normal [facility] Ambulatory Visit Summaryon 0 06-26-2023 Ambulatory Visit [...] you for choosing us for your care. [facility] Consent for Treatmenton 06-07 Consent for Treatment [id number]#1.00TIF F Normal [facility] Gastroenterology Office/Clin ic Noteon 06-26-2023 [...] 1-2 bowel movements every day by using gpuk-dnb-zkvtnpo laxatives such as senna Advised to massage [...] influenza virus vaccine, inactivated 04/09/2016 Recorded Normal [facility] Comment on above: Result Comment: Elec tronically Signed By: Rupa CERRATO, Shaun Resendiz.elyse\Date and Time Signed: 06/26/23 13:09 EDT Physician Orderon 06-24-2023 Physician Order [id number]#1.00TIFF Normal [facility] Heart and Vascular Office/Cl inic [...] appointment on 06/26/2023. She went back to [facility], although it made her feel unwell. [...] with voice recognition artificial intelligence software, specifically [employer], [employer] and or [employer]. Substitutions may have occurred due to the inherent limitations of voice recognition and artificial intelligence software. ATTESTATION: Documentation services were performed after patient or guardian consented to allow [employer] to record this visit. SAMUEL mortgage protection specialist and provider reviewed before signing. SAMUEL: [...] History Tobacco - Denies Tobacco Use, 06/21/2023 [facility] Comment on above: Result Comment: Elec [...] EDT With: Rupa CERRATO, Shaun Xiao Where: [facility] Consent for Treatmenton 06-06 Consent for Treatment [id number]#1.00TIF F [facility] Physician Referralon 024 Physician Referral [id number]#1.00TIF F [facility] Referrals Officeon 4 Referrals Office [id number]#1.00TIF F Normal [facility] Physician Orderon 05-30-2023 Physician Order [id number]#1.00TIF F Normal [facility] Referrals Officeon Referrals Office [id number]#1.00TIF F Normal [facility] CREATININEon 08-08-2022 Creatinine [Mass/Vol] 0.94 mg/dL Normal 0.55-1.02 [facility] Comment on above: Performed By: #### L IPA, HSTROPN, TSH, CMP #### [facility] [address] [address] [address] Juan Zamarripa EGFR-AF [place] >60 Normal >=60 [facility] Comment on above: Performed By: #### L IPA, HSTROPN, TSH, CMP #### [facility] [address] [address] [address] Juan Zamarripa EGFR-NON AF [place] 58 mL/min/1.73m2 Critically low >=60 [facility] Comment on above: Performed By: #### L IPA, HSTROPN, TSH, CMP #### [facility] [address] ABD/PELVIS WO CONon [...] CARO SIBLEY Date: 2022-08-08 13:42 Normal [facility] Urine Cultureon 07-24-2022 Bacteria identified Cx Nom (U) No Growth 2 Days PERFORMED BY: [place] [address] PATHOLOGIST AUDIO TAPE LIBRARIAN JAIMIE RIVERA M.D. Normal [facility] Comment on above: Performed By: #### C UU #### [address] PNEUMOCOCCAL IM (23 SEROTYPE )on 07-07-2022 Pneumo Ab Type 1* 2.8 ug/mL Normal >1.3 The [facility] Comment on above: Performed By: #### L IPA, HSTROPN, TSH, CMP #### [facility] [address] [address] [address] Juan Zamarripa Pneumo Ab Type 12 (12F)* 0.2 ug/mL Critically low >1.3 [facility] Comment on above: Performed By: #### L IPA, HSTROPN, TSH, CMP #### [facility] [address] [address] [address] Juan Zamarripa Pneumo Ab Type 14* >18.7 Normal >1.3 The [facility] Comment on above: Performed By: #### L IPA, HSTROPN, TSH, CMP #### [facility] [address] [address] [address] Juan Zamarripa Pneumo Ab Type 17 (17F)* >20.2 Normal >1.3 [facility] Comment on above: Performed By: #### L IPA, HSTROPN, TSH, CMP #### [facility] [address] [place] [address] Dr. Juan Zamarripa Pneumo Ab Type 19 (19F)* 21.7 ug/mL Normal >1.3 [facility] Comment on above: Performed By: #### L IPA, HSTROPN, TSH, CMP #### [facility] [address] [place] [address] Dr. Juan Zamarripa Pneumo Ab Type 2* 5.7 ug/mL Normal >1.3 The [facility] Comment on above: Performed By: #### L IPA, HSTROPN, TSH, CMP #### [facility] [address] [place] [address] Dr. Juan Zamarripa Pneumo Ab Type 20* 4.0 ug/mL Normal >1.3 The [facility] Comment on above: Performed By: #### L IPA, HSTROPN, TSH, CMP #### [facility] [address] [place] [address] Dr. Juan Zamarripa Pneumo Ab Type 22 (22F)* 1.5 ug/mL Normal >1.3 [facility] Comment on above: Performed By: #### L IPA, HSTROPN, TSH, CMP #### [facility] [address] [place] [address] Dr. Juan Zamarripa Pneumo Ab Type 23 (23F)* 3.4 ug/mL Normal >1.3 [facility] Comment on above: Performed By: #### L IPA, HSTROPN, TSH, CMP #### [facility] [address] [place] [address] Dr. Juan Zamarripa Pneumo Ab Type 26 (6B)* 3.0 ug/mL Normal >1.3 [facility] Comment on above: Performed By: #### L IPA, HSTROPN, TSH, CMP #### [facility] [address] [address] [address] Juan Zamarripa Pneumo Ab Type 3* 1.6 ug/mL Normal >1.3 The [facility] Comment on above: Performed By: #### L IPA, HSTROPN, TSH, CMP #### [facility] [address] [place] [address] Dr. Juan Zamarripa Pneumo Ab Type 34 (10A)* 4.4 ug/mL Normal >1.3 [facility] Comment on above: Performed By: #### L IPA, HSTROPN, TSH, CMP #### [facility] [address] [place] [address] Dr. Juan Zamarripa Pneumo Ab Type 4* 1.6 ug/mL Normal >1.3 [facility] Comment on above: Performed By: #### L IPA, HSTROPN, TSH, CMP #### [facility] [address] [place] [address] Dr. Juan Zamarripa Pneumo Ab Type 43 (11A)* >7.6 Normal >1.3 [facility] Comment on above: Performed By: #### L IPA, HSTROPN, TSH, CMP #### [facility] [address] [place] [address] Dr. Juan Zamarripa Pneumo Ab Type 5* 2.0 ug/mL Normal >1.3 [facility] Comment on above: Performed By: #### L IPA, HSTROPN, TSH, CMP #### [facility] [address] [address] [address] Juan Zamarripa Pneumo Ab Type 51 (7F)* 0.9 ug/mL Critically low >1.3 [facility] Comment on above: Performed By: #### L IPA, HSTROPN, TSH, CMP #### [facility] [address] [place] [address] Dr. Juan Zamarripa Pneumo Ab Type 54 (15B)* >22.0 Normal >1.3 [facility] Comment on above: Performed By: #### L IPA, HSTROPN, TSH, CMP #### [facility] [address] [place] [address] Dr. Juan Zamarripa Pneumo Ab Type 56 (18C)* >8.1 Normal >1.3 [facility] Comment on above: Performed By: #### L IPA, HSTROPN, TSH, CMP #### [facility] [address] [place] [address] Dr. Juan Zamarripa Pneumo Ab Type 57 (19A)* 2.5 ug/mL Normal >1.3 [facility] Comment on above: Performed By: #### L IPA, HSTROPN, TSH, CMP #### [facility] [address] [place] [address] Dr. Juan Zamarripa Pneumo Ab Type 68 (9V)* >13.4 Normal >1.3 [facility] Comment on above: Performed By: #### L IPA, HSTROPN, TSH, CMP #### [facility] [address] [place] [address] Dr. Juan Zamarripa Pneumo Ab Type 70 (33F)* >10.1 Normal >1.3 [facility] Comment on above: Result Comment: *Thi s test was developed and its performance characteristics determined by [employer]. It has not been cleared or approved by the U.S. Food and Drug Administration. Performed By: #### L IPA, HSTROPN, TSH, CMP #### [facility] [address] [place] [address] Dr. Juan Zamarripa Pneumo Ab Type 8* 1.2 ug/mL Critically low >1.3 [facility] Comment on above: Performed By: #### L IPA, HSTROPN, TSH, CMP #### [facility] [address] [place] [address] Dr. Juan Zamarripa Pneumo Ab Type 9 (9N)* 1.7 ug/mL Normal >1.3 [facility] Comment on above: Performed By: #### L IPA, HSTROPN, TSH, CMP #### [facility] [address] [place] [address] Dr. Juan Zamarripa BORDETELLA PERTUSSIS AB IGGo n 0330-2023 B pertussis IgG Ab 1.53 index Invalid Interpretation Code 0.00-0.94 [facility] Comment on above: Result Comment: Clie nt Requested Flag Negative <0.95 Equivocal 0.95 - 1.04 Positive >1.04 Performed By: #### A 1C #### [facility] [address] [place] [address] Dr. Juan Zamarripa TETANUS DIPTHERIA AB PROFILE on 07-05-2022 Diphtheria Antitoxoid Ab 0.29 IU/mL Normal <0.10 [facility] Comment on above: Result Comment: Inte rpretation: Non-Protective <0.10 Protective >=0.10 . For research use only. Performed By: #### C BC #### [facility] [address] [place] [address] Dr. Juan Zamarripa Tetanus Antitoxoid IgG Ab 0.94 IU/mL Normal <0.10 [facility] Comment on above: Result Comment: Inte rpretation: Non-Protective <0.10 Protective >=0.10 Results for this test are for research purposes only by the assay's pickling grader. The performance characteristics of this product have not been established. Results should not be used as a diagnostic procedure without confirmation of the diagnosis by another medically established diagnostic product or procedure. Performed By: #### C BC #### [facility] [address] [place] [address] Dr. Juan Zamarripa HAEMOPHILUS INFLUENZA B IGGo n 07-04-2022 Haemophilus influenzae B IgG 0.21 ug/mL Normal [facility] Comment on above: Result Comment: NOTE : An anti-Hib level of 0.15 ug/mL is generally accepted as the minimum level for protection. Optimal protection post-vaccination requires a level greater than 1.00 ug/mL. Performed By: #### L IPA, HSTROPN, TSH, CMP #### [facility] [address] [place] [address] Dr. Juan Zamarripa IMMUNOGLOBULINS IGA/IGM/IGG QUANTITATIVEon 07-03-2022 Immunoglobulin A, Qn, Serum 219 mg/dL Normal 64-422 [facility] Comment on above: Performed By: #### L IPA, HSTROPN, TSH, CMP #### [facility] [address] [address] [address] Juan Zamarripa Immunoglobulin G, Qn, Serum 1365 mg/dL Normal [phone] [facility] Comment on above: Performed By: #### L IPA, HSTROPN, TSH, CMP #### [facility] [address] [address] [address] Juan Zamarripa Immunoglobulin M, Qn, Serum 66 mg/dL Normal 26-217 [facility] Comment on above: Performed By: #### L IPA, HSTROPN, TSH, CMP #### [facility] [address] [address] [address] Juan Zamarripa LYMPHOCYTE ACTIVITY PROFILEo n 07-03-2022 %CD3+CD25+Lymphs 20.3 % Normal 4.9-25.9 [facility] Comment on above: Result Comment: This test was developed and its performance characteristics determined by [facility]. It has not been cleared or approved by the Food and Drug Administration. Performed at: BN Performed By: #### L YMACT #### [facility] [address] [place] [address] Dr. Juan Zamarripa %CD8+CD57+Lymphs 16.6 % Critically high 0.0-11.3 [facility] Comment on above: Result Comment: This test was developed and its performance characteristics determined by [facility]. It has not been cleared or approved by the Food and Drug Administration. Performed at: BN Performed By: #### L YMACT #### [facility] [address] [place] [address] Dr. Juan Zamarripa Abs CD 4 helper 986 /uL Normal 359-1519 [facility] Comment on above: Result Comment: Perf ormed at: CB Performed By: #### L YMACT #### [facility] [address] [place] [address] Dr. Juan Zamarripa Abs. CD 8 Supp 898 /uL Critically high 109-897 [facility] Comment on above: Result Comment: Perf ormed at: CB Performed By: #### L YMACT #### [facility] [address] [place], [place] [id number] Dr. Juan Zamarripa Abs.CD3+CD25+Lymphs 447 /uL Normal 79-535 [facility] Comment on above: Result Comment: This test was developed and its performance characteristics determined by [facility]. It has not been cleared or approved by the Food and Drug Administration. Performed at: CB Performed By: #### L YMACT #### [facility] [address] [place] [address] Dr. Juan Zamarripa Abs.CD8+CD57+Lymphs 365 /uL Critically high 0-254 [facility] Comment on above: Result Comment: This test was developed and its performance characteristics determined by [facility]. It has not been cleared or approved by the Food and Drug Administration. Performed at: CB Performed By: #### L YMACT #### [facility] [address] [place] [address] Dr. Juan Zamarripa Absolute CD 3 1918 /uL Normal [phone] [facility] Comment on above: Result Comment: Perf ormed at: CB Performed By: #### L YMACT #### [facility] [address] [place] [address] Dr. Juan Zamarripa Basophils (Bld) [#/Vol] 0.0 10*3/uL Normal 0.0-0.2 [facility] Comment on above: Result Comment: Perf ormed at: CB Performed By: #### L YMACT #### [facility] [address] [place] [address] Dr. Juan Zamarripa Basophils/100 WBC (Bld) 1 % Normal Not Estab. T [facility] Comment on above: Result Comment: Perf ormed at: CB Performed By: #### L YMACT #### [facility] [address] [place] [address] Dr. Juan Zamarripa CD4/CD8 Ratio 1.10 Normal 0.92-3.72 [facility] Comment on above: Result Comment: Perf ormed at: BN Performed By: #### L YMACT #### [facility] [address] [place] [address] Dr. Juan Zamarripa Eosinophils (Bld) [#/Vol] 0.1 10*3/uL Normal 0.0-0.4 [facility] Comment on above: Result Comment: Perf ormed at: CB Performed By: #### L YMACT #### [facility] [address] [address] [address] Juan Zamarripa Eosinophils/100 WBC (Bld) 1 % Normal Not Estab. [facility] Comment on above: Result Comment: Perf ormed at: CB Performed By: #### L YMACT #### [facility] [address] [address] [address] Juan Zamarripa Erythrocyte distribution width (RBC) [Ratio] 12.6 % Normal 11.7-15.4 [facility] Comment on above: Result Comment: Perf ormed at: CB Performed By: #### L YMACT #### [facility] [address] [place] [address] Dr. Juan Zamarripa Hematocrit (Bld) [Volume fraction] 41.9 % Normal 34.0-46.6 [facility] Comment on above: Result Comment: Perf ormed at: CB Performed By: #### L YMACT #### [facility] [address] [place] [address] Dr. Juan Zamarripa Hematology Comments Normal [facility] Comment on above: Result Comment: Perf ormed at: CB Performed By: #### L YMACT #### [facility] [address] [place] [address] Dr. Juan Zamarripa Hemoglobin (Bld) [Mass/Vol] 14.2 g/dL Normal 11.1-15.9 [facility] Comment on above: Result Comment: Perf ormed at: CB Performed By: #### L YMACT #### [facility] [address] [place] [address] Dr. Juan Zamarripa Immature Cells Normal [facility] Comment on above: Result Comment: Perf ormed at: CB Performed By: #### L YMACT #### [facility] [address] [place] [address] Dr. Juan Zamarripa Immature Grans (Abs) 0.0 x10E3/uL Normal 0.0-0.1 [facility] Comment on above: Result Comment: Perf ormed at: CB Performed By: #### L YMACT #### [facility] [address] [address] [address] Juan Zamarripa Immature granulocytes/100 WBC (Bld) 0 % Normal Not Estab. [facility] Comment on above: Result Comment: Perf ormed at: CB Performed By: #### L YMACT #### [facility] [address] [place] [address] Dr. Juan Zamarripa Lymphocytes (Bld) [#/Vol] 2.2 10*3/uL Normal 0.7-3.1 [facility] Comment on above: Result Comment: Perf ormed at: CB Performed By: #### L YMACT #### [facility] [address] [place] [address] Dr. Juan Zamarripa Lymphocytes/100 WBC (Bld) 87.2 % Critically high 57.5-86.2 [facility] Comment on above: Result Comment: Perf ormed at: BN Performed By: #### L YMACT #### [facility] [address] [place] [address] Dr. Juan Zamarripa Lymphocytes/100 WBC (Bld) 44.8 % Normal 30.8-58.5 [facility] Comment on above: Result Comment: Perf ormed at: BN Performed By: #### L YMACT #### [facility] [address] [place] [address] Dr. Juan Zamarripa Lymphocytes/100 WBC (Bld) 40.8 % Critically high 12.0-35.5 [facility] Comment on above: Result Comment: Perf ormed at: BN Performed By: #### L YMACT #### [facility] [address] [place] [address] Dr. Juan Zamarripa Lymphocytes/100 WBC (Bld) 34 % Normal Not Estab. [facility] Comment on above: Result Comment: Perf ormed at: CB Performed By: #### L YMACT #### [facility] [address] [place] [address] Dr. Juan Zamarripa MCH (RBC) [Entitic mass] 31.3 pg Normal 26.6-33.0 [facility] Comment on above: Result Comment: Perf ormed at: CB Performed By: #### L YMACT #### [facility] [address] [place] [address] Dr. Juan Zamarripa MCHC (RBC) [Mass/Vol] 33.9 g/dL Normal 31.5-35.7 [facility] Comment on above: Result Comment: Perf ormed at: CB Performed By: #### L YMACT #### [facility] [address] [address] [address] Juan Zamarripa MCV (RBC) [Entitic vol] 92 fL Normal 79-97 [facility] Comment on above: Result Comment: Perf ormed at: CB Performed By: #### L YMACT #### [facility] [address] [place] [address] Dr. Juan Zamarripa Monocytes (Bld) [#/Vol] 0.3 10*3/uL Normal 0.1-0.9 [facility] Comment on above: Result Comment: Perf ormed at: CB Performed By: #### L YMACT #### [facility] [address] [place] [address] Dr. Juan Zamarripa Monocytes/100 WBC (Bld) 4 % Normal Not Estab. [facility] Comment on above: Result Comment: Perf ormed at: CB Performed By: #### L YMACT #### [facility] [address] [place] [address] Dr. Juan Zamarripa Neutrophils Absolute 4.0 x10E3/uL Normal 1.4-7.0 [facility] Comment on above: Result Comment: Perf ormed at: CB Performed By: #### L YMACT #### [facility] [address] [place] [address] Dr. Juan Zamarripa Neutrophils/100 WBC (Bld) 60 % Normal Not Estab. [facility] Comment on above: Result Comment: Perf ormed at: CB Performed By: #### L YMACT #### [facility] [address] [place] [address] Dr. Juan Zamarripa NRBC Normal [facility] Comment on above: Result Comment: Perf ormed at: CB Performed By: #### L YMACT #### [facility] [address] [address] [address] Juan Zamarripa Platelets (Bld) [#/Vol] 164 10*3/uL Normal 150-450 [facility] Comment on above: Result Comment: Perf ormed at: CB Performed By: #### L YMACT #### [facility] [address] [place] [address] Dr. Juan Zamarripa RBC (Bld) [#/Vol] 4.54 10*6/uL Normal 3.77-5.28 [facility] Comment on above: Result Comment: Perf ormed at: CB Performed By: #### L YMACT #### [facility] [address] [place] [address] Dr. Juan Zamarripa WBC (Bld) [#/Vol] 6.6 10*3/uL Normal 3.4-10.8 [facility] Comment on above: Result Comment: Perf ormed at: CB Performed By: #### L YMACT #### [facility] [address] [place] [address] Dr. Juan Zamarripa PROF 14(COMP METB)on 023 Albumin [Mass/Vol] 4.1 g/dL Normal 3.4-5.0 [facility] Comment on above: Performed By: #### L IPA, HSTROPN, TSH, CMP #### [facility] [address] [place] [address] Dr. Juan Zamarripa Albumin/Globulin [Mass ratio] 1.1 {ratio} Normal [facility] Comment on above: Performed By: #### L IPA, HSTROPN, TSH, CMP #### [facility] [address] [place] [address] Dr. Juan Zamarripa ALP [Catalytic activity/Vol] 107 U/L Normal 46-116 [facility] Comment on above: Performed By: #### L IPA, HSTROPN, TSH, CMP #### [facility] [address] [place] [address] Dr. Juan Zamarripa ALT [Catalytic activity/Vol] 69 U/L Critically high 14-59 [facility] Comment on above: Performed By: #### L IPA, HSTROPN, TSH, CMP #### [facility] [address] [address] [address] Juan Zamarripa Anion gap [Moles/Vol] 14.0 mmol/L Normal [facility] Comment on above: Performed By: #### L IPA, HSTROPN, TSH, CMP #### [facility] [address] [address] [address] Juan Zamarripa AST [Catalytic activity/Vol] 31 U/L Normal 15-37 [facility] Comment on above: Performed By: #### L IPA, HSTROPN, TSH, CMP #### [facility] [address] [place] [address] Dr. Juan Zamarripa Bilirubin [Mass/Vol] 0.8 mg/dL Normal 0.2-1.0 [facility] Comment on above: Performed By: #### L IPA, HSTROPN, TSH, CMP #### [facility] [address] [address] [address] Juan Zamarripa Calcium [Mass/Vol] 9.1 mg/dL Normal 8.5-10.1 [facility] Comment on above: Performed By: #### L IPA, HSTROPN, TSH, CMP #### [facility] [address] [place] [address] Dr. Juan Zamarripa Chloride [Moles/Vol] 104 mmol/L Normal 98-107 [facility] Comment on above: Performed By: #### L IPA, HSTROPN, TSH, CMP #### [facility] [address] [place] [address] Dr. Juan Zamarripa CO2 [Moles/Vol] 28.1 mmol/L Normal 21.0-32.0 [facility] Comment on above: Performed By: #### L IPA, HSTROPN, TSH, CMP #### [facility] [address] [address] [address] Juan Zamarripa Creatinine [Mass/Vol] 0.77 mg/dL Normal 0.55-1.02 [facility] Comment on above: Performed By: #### L IPA, HSTROPN, TSH, CMP #### [facility] [address] [address] [address] Juan Zamarripa EGFR-AF [place] >60 Normal >=60 [facility] Comment on above: Performed By: #### L IPA, HSTROPN, TSH, CMP #### [facility] [address] [address] [address] Juan Zamarripa EGFR-NON AF [place] >60 Normal >=60 [facility] Comment on above: Performed By: #### L IPA, HSTROPN, TSH, CMP #### [facility] [address] [place] [address] Dr. Juan Zamarripa Globulin (S) [Mass/Vol] 3.9 g/dL Normal [facility] Comment on above: Performed By: #### L IPA, HSTROPN, TSH, CMP #### [facility] [address] [address] [address] Juan Zamarripa Glucose [Mass/Vol] 186 mg/dL Critically high 74-106 [facility] Comment on above: Performed By: #### L IPA, HSTROPN, TSH, CMP #### [facility] [address] [address] [address] Juan Zamarripa Potassium [Moles/Vol] 4.1 mmol/L Normal 3.5-5.1 [facility] Comment on above: Performed By: #### L IPA, HSTROPN, TSH, CMP #### [facility] [address] [place] [address] Dr. Juan Zamarripa Protein [Mass/Vol] 8.0 g/dL Normal 6.4-8.2 [facility] Comment on above: Performed By: #### L IPA, HSTROPN, TSH, CMP #### [facility] [address] [place] [address] Dr. Juan Zamarripa Sodium [Moles/Vol] 142 mmol/L Normal 136-145 [facility] Comment on above: Performed By: #### L IPA, HSTROPN, TSH, CMP #### [facility] [address] [place] [address] Dr. Juan Zamarripa Urea nitrogen [Mass/Vol] 9.0 mg/dL Normal 7.0-18.0 [facility] Comment on above: Performed By: #### L IPA, HSTROPN, TSH, CMP #### [facility] [address] [place] [address] Dr. Juan Zamarripa Urea nitrogen/Creatinine [Mass ratio] 11.7 mg/mg Normal [facility] Comment on above: Performed By: #### L IPA, HSTROPN, TSH, CMP #### [facility] [address] [place] [address] Dr. Juan Zamarripa CULTURE URINEon 06-12-2022 CULTURE URINE Culture Observations : LIGHT GROWTH OF MIXED GENITAL ALDA. NO POTENTIAL PATHOGENS SEEN. Normal [facility] Comment on above: Performed By: #### U RCX #### [facility] [address] [place] [address] Dr. Juan Zamarripa UA RANDOMon 06-12-2022 Glucose Ql (U) 100 mg/dl Abnormal NEGATIVE [facility] Comment on above: Performed By: #### U A #### [facility] [address] [place] [address] Dr. Juan Zamarripa LEUKOCYTES SMALL Abnormal NEGATIVE [facility] Comment on above: Performed By: #### U A #### [facility] [address] [place] [address] Dr. Juan Zamarripa SPEC GRAVITY 1.015 Normal 1.005-<=1. 025 [facility] Comment on above: Performed By: #### U A #### [facility] [address] [place] [address] Dr. Juan Zamarripa UA PROTEIN Negative Normal NEGATIVE/ TRACE [facility] Comment on above: Performed By: #### U A #### [facility] [address] [place] [address] Dr. Juan Zamarripa Urobilinogen Qn (U) 0.2 {Amee'U}/dL Normal 0.2 - 1. 0 [facility] Comment on above: Performed By: #### U A #### [facility] [address] [place] [address] Dr. Juan Zamarripa Urinalysison 06-12-2022 Glucose Ql (U) 100 mg/dl Abnormal NEGATIVE mg/dl [employer] Other Urinalysis see note [employer] Other Urinalysis 1.015 1.005-<=1. 025 [employer] Other Urinalysis Negative NEGATIVE/ TRACE mg/dl [employer] Other Urinalysis 0.2 EU/dl 0.2 - 1.0 EU/dl [employer] Other Urinalysis SMALL Abnormal NEGATIVE [employer] Other Bilirubin Ql (U) Negative Normal NEGATIVE [employer] Other Comment on above: Performed By: #### U A #### [facility] [address] [place] [address] Dr. Juan Zamarripa Clarity (U) CLEAR Normal CLEAR [employer] Other Comment on above: Performed By: #### U A #### [facility] [address] [place] [address] Dr. Juan Zamarripa Color (U) LT. YELLOW Normal YELLOW [employer] Other Comment on above: Performed By: #### U A #### [facility] [address] [place] [address] Dr. Juan Zamarripa Hemoglobin Ql (U) Negative Normal NEGATIVE [employer] Other Comment on above: Performed By: #### U A #### [facility] [address] [place] [address] Dr. Juan Zamarripa Ketones Ql (U) Negative Normal NEGATIVE [employer] Other Comment on above: Performed By: #### U A #### [facility] [address] [place] [address] Dr. Juan Zamarripa Nitrite Ql (U) Negative Normal NEGATIVE [employer] Other Comment on above: Performed By: #### U A #### [facility] [address] [place] [address] Dr. Juan Zamarripa pH (U) 6.0 [pH] Normal 5-9 [employer] Other Comment on above: Performed By: #### U A #### [facility] [address] [place] [address] Dr. Juan Zamarripa CULTURE URINEon 04-25-2022 CULTURE [...] F Nitrofurantoin <=16 S F Normal [facility] Comment on above: Performed By: #### A 1C #### [facility] [address] [place] [address] Dr. Juan Zamarripa TL by IFAon 04-24-2022 Antinuclear Antibodies, IFA Positive Abnormal [facility] Comment on above: Result Comment: Nega tive <1:80 Borderline 1:80 Positive >1:80 Performed By: #### L IPA, HSTROPN, TSH, CMP #### [facility] [address] [place] [address] Dr. Juan Zamarripa Centriole Pattern Normal [facility] Comment on above: Performed By: #### L IPA, HSTROPN, TSH, CMP #### [facility] [address] [place], [place] [id number] Dr. Juan Zamarripa Centromere Pattern Normal [facility] Comment on above: Performed By: #### L IPA, HSTROPN, TSH, CMP #### [facility] [address] [place] [address] Dr. Juan Zamarripa Homogeneous Pattern 1:160 Critically high [facility] Comment on above: Result Comment: ICAP nomenclature: AC-1 Performed By: #### L IPA, HSTROPN, TSH, CMP #### [facility] [address] [place], [place] [address] Dr. Juan Zamarripa Midbody Pattern Normal [facility] Comment on above: Performed By: #### L IPA, HSTROPN, TSH, CMP #### [facility] [address] [place], [place] [address] Dr. Juan Zamarripa Note: Comment Normal [facility] Comment on above: Result Comment: For more [...] titers Nucleosomes, Histones Drug-induced SLE Speckled Sm, [employer], SCL-70, SLE,MCTD,PSS (diffuse form), SS-A/SS-B Sjogrens Nucleolar SCL-70, PM-1/SCL High titers Scleroderma, PM/DM Centromere Centromere PSS (limited form) w/Crest syndrome variable Nuclear Dot [id number] Primary Biliary Cirrhosis Nuclear GP210, Primary Biliary Cirrhosis Membrane trinity A,B,C Performed By: #### L IPA, HSTROPN, TSH, CMP #### [facility] [address] [place] [address] Dr. Juan Zamarripa Nuclear Dot Pattern Normal [facility] Comment on above: Performed By: #### L IPA, HSTROPN, TSH, CMP #### [facility] [address] [place] [address] Dr. Juan Zamarripa Nuclear Membrane Pattern Normal [facility] Comment on above: Performed By: #### L IPA, HSTROPN, TSH, CMP #### [facility] [address] [place] [address] Dr. Juan Zamarripa Nucleolar Pattern Normal [facility] Comment on above: Performed By: #### L IPA, HSTROPN, TSH, CMP #### [facility] [address] [place] [address] Dr. Juan Zamarripa PCNA Pattern Normal [facility] Comment on above: Performed By: #### L IPA, HSTROPN, TSH, CMP #### [facility] [address] [place] [address] Dr. Juan Zamarripa Speckled Pattern 1:160 Critically high [facility] Comment on above: Result Comment: ICAP nomenclature: AC-2,4,5,29 Performed By: #### L IPA, HSTROPN, TSH, CMP #### [facility] [address] [place] [address] Dr. Jaun Zamarripa Spindle Apparatus Pattern Normal [facility] Comment on above: Performed By: #### L IPA, HSTROPN, TSH, CMP #### [facility] [address] [place] [address] Dr. Juan Zamarripa RHEUMATOID FACTORon 04-24-19 RA Latex Turbid. <10.0 Normal <14.0 [facility] Comment on above: Performed By: #### L IPA, HSTROPN, TSH, CMP #### [facility] [address] [place] [address] Dr. Juan Zamarripa CBC AUTO DIFFon 04-23-2022 BASO # 0.0 103/ul Normal 0.0-0.1 [facility] Comment on above: Performed By: #### C BC #### [facility] [address] [place] [address] Dr. Juan Zamarripa Basophils/100 WBC (Bld) 0.4 % Normal 0.2-2.0 [facility] Comment on above: Performed By: #### C BC #### [facility] [address] [place] [address] Dr. Juan Zamarripa EO # 0.1 103/ul Normal 0.0-0.7 [facility] Comment on above: Performed By: #### C BC #### [facility] [address] [place] [address] Dr. Juan Zamarripa Eosinophils/100 WBC (Bld) 1.8 % Normal 0.9-7.0 [facility] Comment on above: Performed By: #### C BC #### [facility] [address] [place] [address] Dr. Juan Zamarirpa Erythrocyte distribution width (RBC) [Ratio] 12.6 % Normal 11.0-15.0 [facility] Comment on above: Performed By: #### C BC #### [facility] [address] [place] [address] Dr. Juan Zamarripa Hematocrit (Bld) [Volume fraction] 36.9 % Normal 36.0-48.0 [facility] Comment on above: Performed By: #### C BC #### [facility] [address] [place] [address] Dr. Juan Zamarripa Hemoglobin (Bld) [Mass/Vol] 12.6 g/dL Normal 12.0-16.0 [facility] Comment on above: Performed By: #### C BC #### [facility] [address] [place] [address] Dr. Juan Zamarripa IG # 0.02 10e3/ul Normal 0.00-0.03 [facility] Comment on above: Performed By: #### C BC #### [facility] [address] [place] [address] Dr. Juan Zamarripa IG % 0.3 % Normal 0.0-0.5 [facility] Comment on above: Performed By: #### C BC #### [facility] [address] [place] [address] Dr. Juan Zamarripa LYMPH # 3.3 103/ul Normal 1.2-3.8 [facility] Comment on above: Performed By: #### C BC #### [facility] [address] [place] [address] Dr. Juan Zamarripa Lymphocytes/100 WBC (Bld) 42.9 % Normal 20.5-60.0 [facility] [facility] Comment on above: Performed By: #### C BC #### [facility] [address] [place] [address] Dr. Juan Zamarripa MANUAL DIFF REQ NO Normal [facility] Comment on above: Performed By: #### C BC #### [facility] [address] [place] [address] Dr. Juan Zamarripa MCH (RBC) [Entitic mass] 31.2 pg Normal 26.7-34.0 [facility] Comment on above: Performed By: #### C BC #### [facility] [address] [place] [address] Dr. Juan Zamarripa MCHC (RBC) [Mass/Vol] 34.1 g/dL Normal 29.9-35.2 [facility] Comment on above: Performed By: #### C BC #### [facility] [address] [place] [address] Dr. Juan Zamarripa MCV (RBC) [Entitic vol] 91.3 fL Normal 81.0-99.0 [facility] Comment on above: Performed By: #### C BC #### [facility] [address] [place] [address] Dr. Juan Zamarripa MONO # 0.3 103/ul Normal 0.3-0.8 [facility] Comment on above: Performed By: #### C BC #### [facility] [address] [place] [address] Dr. Juan Zamarripa Monocytes/100 WBC (Bld) 4.4 % Normal 1.7-12.0 [facility] Comment on above: Performed By: #### C BC #### [facility] [address] [place] [address] Dr. Juan Zamarripa NEUT # 3.9 103/ul Normal 1.4-6.5 [facility] Comment on above: Performed By: #### C BC #### [facility] [address] [place] [address] Dr. Juan Zamarripa Neutrophils/100 WBC (Bld) 50.2 % Normal 43.0-75.0 [facility] Comment on above: Performed By: #### C BC #### [facility] [address] [place] [address] Dr. Juan Zamarripa Platelet mean volume (Bld) [Entitic vol] 9.0 fL Critically low 9.5-13.5 [facility] Comment on above: Performed By: #### C BC #### [facility] [address] [place] [address] Dr. Juan Zamarripa PLT 158 103/ul Normal 150-450 [facility] Comment on above: Performed By: #### C BC #### [facility] [address] [place] [address] Dr. Juan Zamarripa RBC 4.04 106/ul Critically low 4.20-5.40 [facility] Comment on above: Performed By: #### C BC #### [facility] [address] [place] [address] Dr. Juan Zamarripa WBC 7.8 103/ul Normal 4.0-11.0 [facility] Comment on above: Performed By: #### C BC #### [facility] [address] [address] [address] Juan Zamarripa CULTURE BLOODon 04-23-2022 Microscopic examination of blood, culture Culture Observations: NO GROWTH AT 5 DAYS. Normal [facility] Comment on above: Performed By: #### A 1C #### [facility] [address] [place] [address] Dr. Juan Zamarripa PROF 14(COMP METB)on 023 Albumin [Mass/Vol] 4.0 g/dL Normal 3.4-5.0 [facility] Comment on above: Performed By: #### L IPA, HSTROPN, TSH, CMP #### [facility] [address] [place] [address] Dr. Juan Zamarripa Albumin/Globulin [Mass ratio] 1.0 {ratio} Normal [facility] Comment on above: Performed By: #### L IPA, HSTROPN, TSH, CMP #### [facility] [address] [place] [address] Dr. Juan Zamarripa ALP [Catalytic activity/Vol] 87 U/L Normal 46-116 [facility] Comment on above: Performed By: #### L IPA, HSTROPN, TSH, CMP #### [facility] [address] [place] [address] Dr. Juan Zamarripa ALT [Catalytic activity/Vol] 78 U/L Critically high 14-59 [facility] Comment on above: Performed By: #### L IPA, HSTROPN, TSH, CMP #### [facility] [address] [address] [address] Juan Zamarripa Anion gap [Moles/Vol] 12.4 mmol/L Normal [facility] Comment on above: Performed By: #### L IPA, HSTROPN, TSH, CMP #### [facility] [address] [address] [address] Juan Zamarripa AST [Catalytic activity/Vol] 39 U/L Critically high 15-37 [facility] Comment on above: Performed By: #### L IPA, HSTROPN, TSH, CMP #### [facility] [address] [address] [address] Juan Zamarripa Bilirubin [Mass/Vol] 0.7 mg/dL Normal 0.2-1.0 [facility] Comment on above: Performed By: #### L IPA, HSTROPN, TSH, CMP #### [facility] [address] [place] [address] Dr. Juan Zamarripa Calcium [Mass/Vol] 9.6 mg/dL Normal 8.5-10.1 [facility] Comment on above: Performed By: #### L IPA, HSTROPN, TSH, CMP #### [facility] [address] [place] [address] Dr. Juan Zamarripa Chloride [Moles/Vol] 101 mmol/L Normal 98-107 [facility] Comment on above: Performed By: #### L IPA, HSTROPN, TSH, CMP #### [facility] [address] [place] [address] Dr. Juan Zamarripa CO2 [Moles/Vol] 29.5 mmol/L Normal 21.0-32.0 [facility] Comment on above: Performed By: #### L IPA, HSTROPN, TSH, CMP #### [facility] [address] [place] [address] Dr. Juan Zamarripa Creatinine [Mass/Vol] 0.84 mg/dL Normal 0.55-1.02 [facility] Comment on above: Performed By: #### L IPA, HSTROPN, TSH, CMP #### [facility] [address] [address] [address] Juan Zamarripa EGFR-AF [place]ER >60 Normal >=60 [facility] Comment on above: Performed By: #### L IPA, HSTROPN, TSH, CMP #### [facility] [address] [address] [address] Juan Zamarripa EGFR-NON AF [place]ER >60 Normal >=60 [facility] Comment on above: Performed By: #### L IPA, HSTROPN, TSH, CMP #### [facility] [address] [address] [address] Juan Zamarripa Globulin (S) [Mass/Vol] 4.0 g/dL Normal [facility] Comment on above: Performed By: #### L IPA, HSTROPN, TSH, CMP #### [facility] [address] [address] [address] Juan Zamarripa Glucose [Mass/Vol] 208 mg/dL Critically high 74-106 [facility] Comment on above: Performed By: #### L IPA, HSTROPN, TSH, CMP #### [facility] [address] [address] [address] Juan Zamarripa Potassium [Moles/Vol] 3.9 mmol/L Normal 3.5-5.1 [facility] Comment on above: Performed By: #### L IPA, HSTROPN, TSH, CMP #### [facility] [address] [address] [address] Juan Zamarripa Protein [Mass/Vol] 8.0 g/dL Normal 6.4-8.2 [facility] Comment on above: Performed By: #### L IPA, HSTROPN, TSH, CMP #### [facility] [address] [address] [address] Juan Zamarripa Sodium [Moles/Vol] 139 mmol/L Normal 136-145 [facility] Comment on above: Performed By: #### L IPA, HSTROPN, TSH, CMP #### [facility] [address] [address] [address] Juan Zamarripa Urea nitrogen [Mass/Vol] 15.0 mg/dL Normal 7.0-18.0 [facility] Comment on above: Performed By: #### L IPASUZIETRZEKE, TSH, CMP #### [facility] [address] [place] [address] Dr. Juan Zamarripa Urea nitrogen/Creatinine [Mass ratio] 17.9 mg/mg Normal [facility] Comment on above: Performed By: #### L LAKISHA MCNEIL, TSH, CMP #### [facility] [address] [place] [address] Dr. Juan Zamarripa SED RATE WESTERGRENon 2022 SED RATE 26 mm/hr Normal <=30 [facility] Comment on above: Performed By: #### L LAKISHA MCNEIL, RADHA, CMP #### [facility] [address] [place] [address] Dr. Juan Zamarripa CULTURE BLOODon 04-18-2022 Microscopic [...] C Trimethoprim/Sulfamethox azole <=10 S C Normal [facility] Comment on above: Performed By: #### A 1C #### [facility] [address] [place] [address] Dr. Juan Zamarripa CBC AUTO DIFFon 04-13-2022 BASO # 0.1 103/ul Normal 0.0-0.1 [facility] Comment on above: Performed By: #### C BC #### [facility] [address] [address] [address] Juan Zamarripa Basophils/100 WBC (Bld) 0.6 % Normal 0.2-2.0 [facility] Comment on above: Performed By: #### C BC #### [facility] [address] [address] [address] Juan Zamarripa EO # 0.2 103/ul Normal 0.0-0.7 [facility] Comment on above: Performed By: #### C BC #### [facility] [address] [place] [address] Dr. Juan Zamarripa Eosinophils/100 WBC (Bld) 1.6 % Normal 0.9-7.0 [facility] Comment on above: Performed By: #### C BC #### [facility] [address] [place] [address] Dr. Juan Zamarripa Erythrocyte distribution width (RBC) [Ratio] 12.6 % Normal 11.0-15.0 [facility] Comment on above: Performed By: #### C BC #### [facility] [address] [place] [address] Dr. Juan Zamarripa Hematocrit (Bld) [Volume fraction] 36.1 % Normal 36.0-48.0 [facility] Comment on above: Performed By: #### C BC #### [facility] [address] [place] [address] Dr. Juan Zamarripa Hemoglobin (Bld) [Mass/Vol] 12.5 g/dL Normal 12.0-16.0 [facility] Comment on above: Performed By: #### C BC #### [facility] [address] [place] [address] Dr. Juan Zamarripa IG # 0.02 10e3/ul Normal 0.00-0.03 [facility] Comment on above: Performed By: #### C BC #### [facility] [address] [place] [address] Dr. Juan Zamarripa IG % 0.2 % Normal 0.0-0.5 [facility] Comment on above: Performed By: #### C BC #### [facility] [address] [address] [address] Juan Zamarripa LYMPH # 4.8 103/ul Critically high 1.2-3.8 [facility] Comment on above: Performed By: #### C BC #### [facility] [address] [address] [address] Juan Zamarripa Lymphocytes/100 WBC (Bld) 49.6 % Normal 20.5-60.0 [facility] Comment on above: Performed By: #### C BC #### [facility] [address] [place] [address] Dr. Juan Zamarripa MANUAL DIFF REQ NO Normal [facility] Comment on above: Performed By: #### C BC #### [facility] [address] [place] [address] Dr. Juan Zamarripa MCH (RBC) [Entitic mass] 31.3 pg Normal 26.7-34.0 [facility] Comment on above: Performed By: #### C BC #### [facility] [address] [place] [address] Dr. Juan Zamarripa MCHC (RBC) [Mass/Vol] 34.6 g/dL Normal 29.9-35.2 [facility] Comment on above: Performed By: #### C BC #### [facility] [address] [place] [address] Dr. Juan Zamarripa MCV (RBC) [Entitic vol] 90.3 fL Normal 81.0-99.0 [facility] Comment on above: Performed By: #### C BC #### [facility] [address] [place] [address] Dr. Juan Zamarripa MONO # 0.5 103/ul Normal 0.3-0.8 [facility] Comment on above: Performed By: #### C BC #### [facility] [address] [place] [address] Dr. Juan Zamarripa Monocytes/100 WBC (Bld) 4.8 % Normal 1.7-12.0 [facility] Comment on above: Performed By: #### C BC #### [facility] [address] [address] [address] Juan Zamarripa NEUT # 4.2 103/ul Normal 1.4-6.5 [facility] Comment on above: Performed By: #### C BC #### [facility] [address] [place] [address] Dr. Juan Zamarripa Neutrophils/100 WBC (Bld) 43.2 % Normal 43.0-75.0 [facility] Comment on above: Performed By: #### C BC #### [facility] [address] [place] [address] Dr. Juan Zamarripa Platelet mean volume (Bld) [Entitic vol] 9.5 fL Normal 9.5-13.5 [facility] Comment on above: Performed By: #### C BC #### [facility] [address] [place] [address] Dr. Juan Zamarripa PLT 149 103/ul Critically low 150-450 [facility] Comment on above: Performed By: #### C BC #### [facility] [address] [place] [address] Dr. Juan Zamarripa RBC 4.00 106/ul Critically low 4.20-5.40 [facility] Comment on above: Performed By: #### C BC #### [facility] [address] [place] [address] Dr. Juan Zamarripa WBC 9.6 103/ul Normal 4.0-11.0 [facility] Comment on above: Performed By: #### C BC #### [facility] [address] [place] [address] Dr. Juan Zamarripa PROF CHEM 8 (BAS METB)on Anion gap [Moles/Vol] 11.4 mmol/L Normal [facility] Comment on above: Performed By: #### L IPA, HSTROPN, TSH, CMP #### [facility] [address] [place] [address] Dr. Juan Zamarripa Calcium [Mass/Vol] 8.7 mg/dL Normal 8.5-10.1 [facility] Comment on above: Performed By: #### L IPA, HSTROPN, TSH, CMP #### [facility] [address] [address] [address] Juan Zamarripa Chloride [Moles/Vol] 102 mmol/L Normal 98-107 [facility] Comment on above: Performed By: #### L IPA, HSTROPN, TSH, CMP #### [facility] [address] [place] [address] Dr. Juan Zamarripa CO2 [Moles/Vol] 28.5 mmol/L Normal 21.0-32.0 [facility] Comment on above: Performed By: #### L IPA, HSTROPN, TSH, CMP #### [facility] [address] [address] [address] Juan Zamarripa Creatinine [Mass/Vol] 0.88 mg/dL Normal 0.55-1.02 [facility] Comment on above: Performed By: #### L IPA, HSTROPN, TSH, CMP #### [facility] [address] [place] [address] Dr. Juan Zamarripa EGFR-AF [place] >60 Normal >=60 [facility] Comment on above: Performed By: #### L IPA, HSTROPN, TSH, CMP #### [facility] [address] [place] [address] Dr. Juan Zamarripa EGFR-NON AF [place] >60 Normal >=60 [facility] Comment on above: Performed By: #### L IPA, HSTROPN, TSH, CMP #### [facility] [address] [address] [address] Juan Zamarripa Glucose [Mass/Vol] 129 mg/dL Critically high 74-106 [facility] Comment on above: Performed By: #### L IPA, HSTROPN, TSH, CMP #### [facility] [address] [place] [address] Dr. Juan Zamarripa Potassium [Moles/Vol] 3.9 mmol/L Normal 3.5-5.1 [facility] Comment on above: Performed By: #### L IPA, HSTROPN, TSH, CMP #### [facility] [address] [place] [address] Dr. Juan Zamarripa Sodium [Moles/Vol] 138 mmol/L Normal 136-145 [facility] Comment on above: Performed By: #### L IPA, HSTROPN, TSH, CMP #### [facility] [address] [place] [address] Dr. Juan Zamarripa Urea nitrogen [Mass/Vol] 12.0 mg/dL Normal 7.0-18.0 [facility] Comment on above: Performed By: #### L IPA, HSTROPN, TSH, CMP #### [facility] [address] [place] [address] Dr. Juan Zamarripa Urea nitrogen/Creatinine [Mass ratio] 13.6 mg/mg Normal [facility] Comment on above: Performed By: #### L IPA, HSTROPN, TSH, CMP #### [facility] [address] [place] [address] Dr. Juan Zamarripa ACETONE SERUMon 04-12-2022 ACETONE Negative Normal NEGATIVE [facility] Comment on above: Performed By: #### C BC #### [facility] [address] [place] [address] Dr. Juan Zamarripa BLOOD CULTURE ID PANELon A. baumannii Not detected Normal NOT DETECTED [facility] Comment on above: Performed By: #### L IPA, HSTROPN, TSH, CMP #### [facility] [address] [place] [address] Dr. Juan Zamarripa Bacteriodes fragilis Not detected Normal NOT DETECTED [facility] Comment on above: Performed By: #### L IPA, HSTROPN, TSH, CMP #### [facility] [address] [place] [address] Dr. Juan Zamarripa BCID CONTROLS PASSED Normal [facility] Comment on above: Performed By: #### L IPA, HSTROPN, TSH, CMP #### [facility] [address] [place] [address] Dr. Juan Zamarripa BCIDBTHD BLOOD CULTURE BOTTLE INFORMATION Normal [facility] Comment on above: Performed By: #### L IPA, HSTROPN, TSH, CMP #### [facility] [address] [address] [address] Juan Zamarripa BCIDHD1 ANTIMICROBIAL RESIST ANCE GENES Normal [facility] Comment on above: Performed By: #### L IPA, HSTROPN, TSH, CMP #### [facility] [address] [address] [address] Juan Zamarripa BCIDHD2 SEE BELOW Normal [facility] Comment on above: Result Comment: Note : Antimicrobial resitance can occur via multiple mechanisms. A Not Detected result for the [employer] antomicrobial resistance gene assays does not indicate antimicrobial susceptibility. Subculturing is required for species identification and susceptibility testing of isolates. Performed By: #### L IPA, HSTROPN, TSH, CMP #### [facility] [address] [address] [address] Juan Zamarripa BCIDHD3 Positive Normal [facility] Comment on above: Performed By: #### L IPA, HSTROPN, TSH, CMP #### [facility] [address] [address] [address] Juan Zamarripa BCIDHD4 Negative Normal [facility] Comment on above: Performed By: #### L IPA, HSTROPN, TSH, CMP #### [facility] [address] [address] [address] Juan Zamarripa BCIDHD5 YEAST Normal [facility] Comment on above: Performed By: #### L IPA, HSTROPN, TSH, CMP #### [facility] [address] [address] [address] Juan Zamarripa Bottle Set: Set 1 Normal [facility] Comment on above: Performed By: #### L IPA, HSTROPN, TSH, CMP #### [facility] [address] [address] [address] Juan Zamarripa Bottle: Anaerobic Normal [facility] Comment on above: Performed By: #### L IPA, HSTROPN, TSH, CMP #### [facility] [address] [address] [address] Juan Zamarripa C. neoformans/gattii Not detected Normal NOT DETECTED [facility] Comment on above: Performed By: #### L IPA, HSTROPN, TSH, CMP #### [facility] [address] [place] [address] Dr. Juan Zamarripa Mary Lou albicans Not detected Normal NOT DETECTED [facility] Comment on above: Performed By: #### L IPA, HSTROPN, TSH, CMP #### [facility] [address] [place] [address] Dr. Juan Zamarripa Mary Lou auris Not detected Normal NOT DETECTED [facility] Comment on above: Performed By: #### L IPA, HSTROPN, TSH, CMP #### [facility] [address] [place] [address] Dr. Juan Zamarripa Mary Lou glabrata Not detected Normal NOT DETECTED [facility] Comment on above: Performed By: #### L IPA, HSTROPN, TSH, CMP #### [facility] [address] [place] [address] Dr. Juan Zamarripa Mary Lou Krusei Not detected Normal NOT DETECTED [facility] Comment on above: Performed By: #### L IPA, HSTROPN, TSH, CMP #### [facility] [address] [place] [address] Dr. Juan Zamarripa Mary [place] Parapsilosis Not detected Normal NOT DETECTED [facility] Comment on above: Performed By: #### L IPA, HSTROPN, TSH, CMP #### [facility] [address] [place] [address] Dr. Juan Zamarripa Mary Lou Tropicalis Not detected Normal NOT DETECTED [facility] Comment on above: Performed By: #### L IPA, HSTROPN, TSH, CMP #### [facility] [address] [place] [address] Dr. Juan Zamarripa CTX-M Resistant Gene Not Applicable Normal NOT DETECTED [facility] Comment on above: Performed By: #### L IPA, HSTROPN, TSH, CMP #### [facility] [address] [place] [address] Dr. Juan Zamarripa E. Cloacae complex Not detected Normal NOT DETECTED [facility] Comment on above: Performed By: #### L IPA, HSTROPN, TSH, CMP #### [facility] [address] [place] [address] Dr. Juan Zamarripa E. faecalis Not detected Normal NOT DETECTED [facility] Comment on above: Performed By: #### L IPA, HSTROPN, TSH, CMP #### [facility] [address] [place] [address] Dr. Juan Zamarripa E. faecium Not detected Normal NOT DETECTED [facility] Comment on above: Performed By: #### L IPA, HSTROPN, TSH, CMP #### [facility] [address] [place] [address] Dr. Juan Zamarripa Enterobacteriaceae Not detected Normal NOT DETECTED [facility] Comment on above: Performed By: #### L IPA, HSTROPN, TSH, CMP #### [facility] [address] [place] [address] Dr. Juan Zamarripa Escherichia coli Not detected Normal NOT DETECTED [facility] Comment on above: Performed By: #### L IPA, HSTROPN, TSH, CMP #### [facility] [address] [place] [address] Dr. Juan Zamarripa H. influenzae Not detected Normal NOT DETECTED [facility] Comment on above: Performed By: #### L IPA, HSTROPN, TSH, CMP #### [facility] [address] [place] [address] Dr. Juan Zamarripa IMP Resistant Gene Not Applicable Normal NOT DETECTED [facility] Comment on above: Performed By: #### L IPA, HSTROPN, TSH, CMP #### [facility] [address] [place] [address] Dr. Juan Zamarripa K. oxytoca Not detected Normal NOT DETECTED [facility] Comment on above: Performed By: #### L IPA, HSTROPN, TSH, CMP #### [facility] [address] [place] [address] Dr. Juan Zamarripa K. pneumoniae Not detected Normal NOT DETECTED [facility] Comment on above: Performed By: #### L IPA, HSTROPN, TSH, CMP #### [facility] [address] [place] [address] Dr. Juan Zamarripa Klebsiella aerogenes Not detected Normal NOT DETECTED [facility] Comment on above: Performed By: #### L IPA, HSTROPN, TSH, CMP #### [facility] [address] [place] [address] Dr. Juan Zamarripa KPC Resistant Gene Not Applicable Normal NOT DETECTED [facility] Comment on above: Performed By: #### L IPA, HSTROPN, TSH, CMP #### [facility] [address] [place] [address] Dr. Juan Zamarripa List. monocytogenes Not detected Normal NOT DETECTED [facility] Comment on above: Performed By: #### L IPA, HSTROPN, TSH, CMP #### [facility] [address] [place] [address] Dr. Juan Zamarripa Mcr-1 Resistant Gene Not Applicable Normal NOT DETECTED [facility] Comment on above: Performed By: #### L IPA, HSTROPN, TSH, CMP #### [facility] [address] [place] [address] Dr. Juan Zamarripa mecA/C Not Applicable Normal NOT DETECTED [facility] Comment on above: Performed By: #### L IPA, HSTROPN, TSH, CMP #### [facility] [address] [place] [address] Dr. Juan Zamarripa mecA/C MREJ Not Applicable Normal NOT DETECTED [facility] Comment on above: Performed By: #### L IPA, HSTROPN, TSH, CMP #### [facility] [address] [place] [address] Dr. Juan Zamarripa N. meningitidis Not detected Normal NOT DETECTED [facility] Comment on above: Performed By: #### L IPA, HSTROPN, TSH, CMP #### [facility] [address] [place] [address] Dr. Juan Zamarripa NDM Resistant Gene Not Applicable Normal NOT DETECTED [facility] Comment on above: Performed By: #### L IPA, HSTROPN, TSH, CMP #### [facility] [address] [place] [address] Dr. Juan Zamarripa Oxa-48-like Not Applicable Normal NOT DETECTED [facility] Comment on above: Performed By: #### L IPA, HSTROPN, TSH, CMP #### [facility] [address] [address] [address] Juan Zamarripa Proteus Not detected Normal NOT DETECTED [facility] Comment on above: Performed By: #### L IPA, HSTROPN, TSH, CMP #### [facility] [address] [address] [address] Juan Zamarripa Pseud. aeruginosa Not detected Normal NOT DETECTED [facility] Comment on above: Performed By: #### L IPA, HSTROPN, TSH, CMP #### [facility] [address] [address] [address] Juan Zamarripa S. maltophilia Not detected Normal NOT DETECTED [facility] Comment on above: Performed By: #### L IPA, HSTROPN, TSH, CMP #### [facility] [address] [place] [address] Dr. Juan Zamarripa Salmonella Not detected Normal NOT DETECTED [facility] Comment on above: Performed By: #### L IPA, HSTROPN, TSH, CMP #### [facility] [address] [place] [address] Dr. Juan Zamarripa Seratia marcescens Not detected Normal NOT DETECTED [facility] Comment on above: Performed By: #### L IPA, HSTROPN, TSH, CMP #### [facility] [address] [address] [address] Juan Zamarripa Site: Rt Ac Normal [facility] Comment on above: Performed By: #### L IPA, HSTROPN, TSH, CMP #### [facility] [address] [address] [address] Juan Zamarripa Staph. aureus Not detected Normal NOT DETECTED [facility] Comment on above: Performed By: #### L IPA, HSTROPN, TSH, CMP #### [facility] [address] [address] [address] Juan Zamarripa Staph. epidermidis Not detected Normal NOT DETECTED [facility] Comment on above: Performed By: #### L IPA, HSTROPN, TSH, CMP #### [facility] [address] [address] [address] Juan Zamarripa Staph. lugdunensis Not detected Normal NOT DETECTED [facility] Comment on above: Performed By: #### L IPA, HSTROPN, TSH, CMP #### [facility] [address] [address] [address] Juan Zamarripa Staphylococcus Detected Critically abnormal NOT DETECTED [facility] Comment on above: Performed By: #### L IPA, HSTROPN, TSH, CMP #### [facility] [address] [address] [address] Juan Zamarripa Strep. agalactiae Not detected Normal NOT DETECTED [facility] Comment on above: Performed By: #### L IPA, HSTROPN, TSH, CMP #### [facility] [address] [place] [address] Dr. Juan Zamarripa Strep. pneumoniae Not detected Normal NOT DETECTED [facility] Comment on above: Performed By: #### L IPA, HSTROPN, TSH, CMP #### [facility] [address] [place] [address] Dr. Juan Zamarripa Strep. pyogenes Not detected Normal NOT DETECTED [facility] Comment on above: Performed By: #### L IPA, HSTROPN, TSH, CMP #### [facility] [address] [place] [address] Dr. Juan Zamarripa Streptococcus Not detected Normal NOT DETECTED [facility] Comment on above: Performed By: #### L IPA, HSTROPN, TSH, CMP #### [facility] [address] [address] [address] Juan Zamarripa Aleyda/B Resist. Gene Not Applicable Normal NOT DETECTED [facility] Comment on above: Performed By: #### L IPA, HSTROPN, TSH, CMP #### [facility] [address] [place] [address] Dr. Juan Zamarripa VIM Resistant Gene Not Applicable Normal NOT DETECTED [facility] Comment on above: Performed By: #### L IPA, HSTROPN, TSH, CMP #### [facility] [address] [place] [address] Dr. Juan Zamarripa CBC AUTO DIFFon 04-12-2022 BASO # 0.1 103/ul Normal 0.0-0.1 [facility] Comment on above: Performed By: #### L IPA, HSTROPN, TSH, CMP #### [facility] [address] [place] [address] Dr. Juan Zamarripa Basophils/100 WBC (Bld) 0.6 % Normal 0.2-2.0 [facility] Comment on above: Performed By: #### L IPA, HSTROPN, TSH, CMP #### [facility] [address] [place] [address] Dr. Juan Zamarripa EO # 0.1 103/ul Normal 0.0-0.7 [facility] Comment on above: Performed By: #### L IPA, HSTROPN, TSH, CMP #### [facility] [address] [place] [address] Dr. Juan Zamarripa Eosinophils/100 WBC (Bld) 0.9 % Normal 0.9-7.0 [facility] Comment on above: Performed By: #### L IPA, HSTROPN, TSH, CMP #### [facility] [address] [place] [address] Dr. Juan Zamarripa Erythrocyte distribution width (RBC) [Ratio] 12.8 % Normal 11.0-15.0 [facility] Comment on above: Performed By: #### L IPA, HSTROPN, TSH, CMP #### [facility] [address] [place] [address] Dr. Juan Zamarripa Hematocrit (Bld) [Volume fraction] 42.9 % Normal 36.0-48.0 [facility] Comment on above: Performed By: #### L IPA, HSTROPN, TSH, CMP #### [facility] [address] [place] [address] Dr. Juan Zamarripa Hemoglobin (Bld) [Mass/Vol] 15.1 g/dL Normal 12.0-16.0 [facility] Comment on above: Performed By: #### L IPA, HSTROPN, TSH, CMP #### [facility] [address] [address] [address] Juan Zamarripa IG # 0.04 10e3/ul Critically high 0.00-0.03 [facility] Comment on above: Performed By: #### L IPA, HSTROPN, TSH, CMP #### [facility] [address] [place] [address] Dr. Juan Zamarripa IG % 0.3 % Normal 0.0-0.5 [facility] Comment on above: Performed By: #### L IPA, HSTROPN, TSH, CMP #### [facility] [address] [place] [address] Dr. Juan Zamarripa LYMPH # 5.0 103/ul Critically high 1.2-3.[address] [facility] Comment on above: Performed By: #### L IPA, HSTROPN, TSH, CMP #### [facility] [address] [place] [address] Dr. Juan Zamarripa Lymphocytes/100 WBC (Bld) 43.6 % Normal 20.5-60.0 [facility] Comment on above: Performed By: #### L IPA, HSTROPN, TSH, CMP #### [facility] [address] [place] [address] Dr. Juan Zamarripa MANUAL DIFF REQ NO Normal [facility] Comment on above: Performed By: #### L IPA, HSTROPN, TSH, CMP #### [facility] [address] [place] [address] Dr. Juan Zamarripa MCH (RBC) [Entitic mass] 31.3 pg Normal 26.7-34.0 [facility] Comment on above: Performed By: #### L IPA, HSTROPN, TSH, CMP #### [facility] [address] [place] [address] Dr. Juan Zamarripa MCHC (RBC) [Mass/Vol] 35.2 g/dL Normal 29.9-35.2 [facility] Comment on above: Performed By: #### L IPA, HSTROPN, TSH, CMP #### [facility] [address] [place] [address] Dr. Juan Zamarripa MCV (RBC) [Entitic vol] 88.8 fL Normal 81.0-99.0 [facility] Comment on above: Performed By: #### L IPA, HSTROPN, TSH, CMP #### [facility] [address] [place] [address] Dr. Juan Zamarripa MONO # 0.6 103/ul Normal 0.3-0.8 [facility] Comment on above: Performed By: #### L IPA, HSTROPN, TSH, CMP #### [facility] [address] [place] [address] Dr. Juan Zamarripa Monocytes/100 WBC (Bld) 5.2 % Normal 1.7-12.0 [facility] Comment on above: Performed By: #### L IPA, HSTROPN, TSH, CMP #### [facility] [address] [place] [address] Dr. Juan Zamarripa NEUT # 5.7 103/ul Normal 1.4-6.5 [facility] Comment on above: Performed By: #### L IPA, HSTROPN, TSH, CMP #### [facility] [address] [place] [address] Dr. Juan Zamarripa Neutrophils/100 WBC (Bld) 49.4 % Normal 43.0-75.0 [facility] Comment on above: Performed By: #### L IPA, HSTROPN, TSH, CMP #### [facility] [address] [place] [address] Dr. Juna Zamarripa Platelet mean volume (Bld) [Entitic vol] 9.6 fL Normal 9.5-13.5 [facility] Comment on above: Performed By: #### L IPA, HSTROPN, TSH, CMP #### [facility] [address] [place] [address] Dr. Juan Zamarripa PLT 210 103/ul Normal 150-450 [facility] Comment on above: Performed By: #### L IPA, HSTROPN, TSH, CMP #### [facility] [address] [place], [place] [address] Dr. Juan Zamarripa RBC 4.83 106/ul Normal 4.20-5.40 [facility] Comment on above: Performed By: #### L IPA, HSTROPN, TSH, CMP #### [facility] [address] [place], [place] [address] Dr. Juan Zamarripa WBC 11.5 103/ul Critically high 4.0-11.0 [facility] Comment on above: Performed By: #### L IPA, HSTROPN, TSH, CMP #### [facility] [address] [place], [place] [address] [address] ABD/PELV W CONon [...] CARO SIBLEY Date: 2022-04-12 16:53 Normal [facility] CULTURE BLOODon 04-12-2022 Microscopic examination of blood, culture Culture Observations: NO GROWTH AT 5 DAYS. Isolate 1 [id number] Normal [facility] Comment on above: Performed By: #### A 1C #### [facility] [address] [address] [address] Juan Zamarripa CULTURE URINEon 04-12-2022 CULTURE URINE Culture Observations : MODERATE GROWTH OF MIXED GENITAL ALDA. NO POTENTIAL PATHOGENS SEEN. Normal [facility] Comment on above: Performed By: #### U RCX #### [facility] [address] [place] [address] Dr. Juan Zamarripa Covid-19 PCR ([facility])on SARS-CoV-2 (COVID-19) RNA SUNNY+probe Ql (Unsp spec) Not detected Normal NOT DETECTED [facility] Comment on above: Result Comment: When diagnostic [...] for this test is supported by the [employer] of Health and Human Service's declaration that [...] #### L IPA, HSTROPN, TSH, CMP #### [facility] [address] [place] [address] Dr. Juan Zamarripa ER URINE PROFILEon 3 Bilirubin Ql (U) Negative Normal NEGATIVE [facility] Comment on above: Performed By: #### C BC #### [facility] [address] [place] [address] Dr. Juan Zamarripa Clarity (U) SL CLOUDY Abnormal CLEAR [facility] Comment on above: Performed By: #### C BC #### [facility] [address] [place] [address] Dr. Juan Zamarripa Color (U) LT. YELLOW Normal YELLOW [facility] Comment on above: Performed By: #### C BC #### [facility] [address] [place] [address] Dr. Juan Zamarripa ERUAHD A micrscopic examina tion will be performed if indicated. Normal [facility] Comment on above: Performed By: #### C BC #### [facility] [address] [place] [address] Dr. Juan Zamarripa Glucose Ql (U) 250 mg/dl Abnormal NEGATIVE [facility] Comment on above: Performed By: #### C BC #### [facility] [address] [place] [address] Dr. Juan Zamarripa Hemoglobin Ql (U) Negative Normal NEGATIVE [facility] Comment on above: Performed By: #### C BC #### [facility] [address] [place] [address] Dr. Juan Zamarripa Ketones Ql (U) TRACE Abnormal NEGATIVE [facility] Comment on above: Performed By: #### C BC #### [facility] [address] [place] [address] Dr. Juan Zamarripa LEUKOCYTES SMALL Abnormal NEGATIVE [facility] Comment on above: Performed By: #### C BC #### [facility] [address] [place] [address] Dr. Juan Zamarripa Nitrite Ql (U) Negative Normal NEGATIVE [facility] Comment on above: Performed By: #### C BC #### [facility] [address] [place] [address] Dr. Juan Zamarripa pH (U) 5.5 [pH] Normal 5-9 [facility] Comment on above: Performed By: #### C BC #### [facility] [address] [place] [address] Dr. Juan Zamarripa SPEC GRAVITY 1.030 Abnormal 1.005-<=1. 025 [facility] Comment on above: Performed By: #### C BC #### [facility] [address] [place] [address] Dr. Juan Zamarripa UA PROTEIN Negative Normal NEGATIVE/ TRACE [facility] Comment on above: Performed By: #### C BC #### [facility] [address] [place] [address] Dr. Juan Zamarripa UR MICRO IND INDICATED Normal [facility] Comment on above: Performed By: #### C BC #### [facility] [address] [place] [address] Dr. Juan Zamarripa Urobilinogen Qn (U) 0.2 {Amee'U}/dL Normal 0.2 - 1. 0 [facility] Comment on above: Performed By: #### C BC #### [facility] [address] [place] [address] Dr. Juan Zamarripa IN[facility]ENZA A [facility] Normal [facility] Comment on above: Result Comment: Nega tive for Flu A protein angiten. Infection due to Flu A cannot be ruled out. Flu A angiten in the sample may be below the detection limit of the test. Performed By: #### L IPA, HSTROPN, TSH, CMP #### [facility] [address] [place] [address] Dr. Juan Zamarripa INFLUBNEGH SEE BELOW Normal [facility] Comment on above: Result Comment: Nega tive for Flu B protein antigen. Infection due to Flu B cannot be ruled out. Flu B antigen in the sample may be below the detection limit of the test. Performed By: #### L IPA, HSTROPN, TSH, CMP #### [facility] [address] [place] [address] Dr. Juan Zamarripa INFLUENZA A AG Negative Normal NEGATIVE SEE COMMENT [facility] Comment on above: Performed By: #### L IPA, HSTROPN, TSH, CMP #### [facility] [address] [place] [address] Dr. Juan Zamarripa INFLUENZA B AG Negative Normal NEGATIVE SEE COMMENT [facility] Comment on above: Performed By: #### L IPA HSTROPN, TSH, CMP #### [facility] [address] [place] [address] Dr. Juan Zamarripa LACTATE/LACTIC ACIDon 2022 Lactate [Moles/Vol] 1.8 mmol/L Normal 0.4-1.9 [facility] Comment on above: Performed By: #### C BC #### [facility] [address] [place] [address] Dr. Juan Zamarripa Lactate [Moles/Vol] 3.1 mmol/L Critically high 0.4-1.9 [facility] Comment on above: Performed By: #### L EWA HSTROPN, TSH, CMP #### [facility] [address] [place] [address] Dr. Juan Zamarripa LIPASEon 04-12-2022 Lipase [Catalytic activity/Vol] 183.0 U/L Normal 73.0-393.0 [facility] Comment on above: Performed By: #### A 1C #### [facility] [address] [place] [address] Dr. Juan Zamarripa PH VENOUS BLOODon 04-12-2022 PCO2 VENOUS 42.9 mmHg Normal 40.0-52.0 [facility] Comment on above: Performed By: #### C BC #### [facility] [address] [place] [address] Dr. Juan Zamarripa pH VENOUS 7.383 Normal 7.330-7.43 0 [facility] Comment on above: Performed By: #### C BC #### [facility] [address] [place] [address] Dr. Juan Zamarripa PROF 14(COMP METB)on 023 Albumin [Mass/Vol] 4.3 g/dL Normal 3.4-5.0 [facility] Comment on above: Performed By: #### A 1C #### [facility] [address] [place], [place] [id number] Dr. Juan Zamarripa Albumin/Globulin [Mass ratio] 1.0 {ratio} Normal [facility] Comment on above: Performed By: #### A 1C #### [facility] [address] [place] [address] Dr. Juan Zamarripa ALP [Catalytic activity/Vol] 96 U/L Normal 46-116 [facility] Comment on above: Performed By: #### A 1C #### [facility] [address] [place] [address] Dr. Juan Zamarripa ALT [Catalytic activity/Vol] 80 U/L Critically high 14-59 [facility] Comment on above: Performed By: #### A 1C #### [facility] [address] [place] [address] Dr. Juan Zamarripa Anion gap [Moles/Vol] 14.7 mmol/L Normal [facility] Comment on above: Performed By: #### A 1C #### [facility] [address] [place] [address] Dr. Juan Zamarripa AST [Catalytic activity/Vol] 45 U/L Critically high 15-37 [facility] Comment on above: Performed By: #### A 1C #### [facility] [address] [place] [address] Dr. Juan Zamarripa Bilirubin [Mass/Vol] 0.8 mg/dL Normal 0.2-1.0 [facility] Comment on above: Performed By: #### A 1C #### [facility] [address] [place] [address] Dr. Juan Zamarripa Calcium [Mass/Vol] 10.0 mg/dL Normal 8.5-10.1 [facility] Comment on above: Performed By: #### A 1C #### [facility] [address] [place] [address] Dr. Juan Zamarripa Chloride [Moles/Vol] 99 mmol/L Normal 98-107 [facility] Comment on above: Performed By: #### A 1C #### [facility] [address] [place] [address] Dr. Juan Zamarripa CO2 [Moles/Vol] 26.4 mmol/L Normal 21.0-32.0 [facility] Comment on above: Performed By: #### A 1C #### [facility] [address] [place] [address] Dr. Juan Zamarripa Creatinine [Mass/Vol] 0.89 mg/dL Normal 0.55-1.02 [facility] Comment on above: Performed By: #### A 1C #### [facility] [address] [place] [address] Dr. Juan Zamarripa EGFR-AF [place] >60 Normal >=60 [facility] Comment on above: Performed By: #### A 1C #### [facility] [address] [address] [address] Juan Zamarripa EGFR-NON AF [place] >60 Normal >=60 [facility] Comment on above: Performed By: #### A 1C #### [facility] [address] [place] [address] Dr. Juan Zamarripa Globulin (S) [Mass/Vol] 4.3 g/dL Normal [facility] Comment on above: Performed By: #### A 1C #### [facility] [address] [place] [address] Dr. Juan Zamarripa Glucose [Mass/Vol] 168 mg/dL Critically high 74-106 [facility] Comment on above: Performed By: #### A 1C #### [facility] [address] [place] [address] Dr. Juan Zamarripa Potassium [Moles/Vol] 4.1 mmol/L Normal 3.5-5.1 [facility] Comment on above: Performed By: #### A 1C #### [facility] [address] [place] [address] Dr. Juan Zamarripa Protein [Mass/Vol] 8.6 g/dL Critically high 6.4-8.2 [facility] Comment on above: Performed By: #### A 1C #### [facility] [address] [place] [address] Dr. Juan Zamarripa Sodium [Moles/Vol] 136 mmol/L Normal 136-145 [facility] Comment on above: Performed By: #### A 1C #### [facility] [address] [place] [address] Dr. Juan Zamarripa Urea nitrogen [Mass/Vol] 18.0 mg/dL Normal 7.0-18.0 [facility] Comment on above: Performed By: #### A 1C #### [facility] [address] [place] [address] Dr. Juan Zamarripa Urea nitrogen/Creatinine [Mass ratio] 20.2 mg/mg Normal [facility] Comment on above: Performed By: #### A 1C #### [facility] [address] [place] [address] Dr. Juan Zamarripa TROPONIN, HIGH SENSITIVITYon 04-12-2022 HSTROP 4.9 pg/mL Normal 4.0-51.3 [facility] Comment on above: Result Comment: CUT- OFF POINTS HAVE BEEN ESTABLISHED BASED ON THE FOURTH UNIVERSAL DEFINITIONS OF MYOCARDIAL INFARCTION. THE UPPER REFERENCE LIMIT (URL) OF TROPONIN, DEFINED THE 99TH PERCENTILE OF cTnI DISTRIBUTION IN A REFERENCE POPULATION, HAS BEEN CONFIRMED THE DECISION THRESHOLD FOR [place] DIAGNOSIS. Performed By: #### A 1C #### [facility] [address] [place] [address] Dr. Juan Zamarripa TSHon 04-12-2022 TSH 1.593 uIU/mL Normal 0.358-3.74 0 [facility] Comment on above: Performed By: #### C BC #### [facility] [address] [place] [address] Dr. Juan Zamarripa URINE MICROSCOPIC ONLYon BACTERIA SMALL Abnormal NONE SEEN [facility] Comment on above: Performed By: #### C BC #### [facility] [address] [place] [address] Dr. Juan Zamarripa Bacteria identified Cx Nom (U) INDICATED Normal [facility] Comment on above: Performed By: #### C BC #### [facility] [address] [place] [address] Dr. Juan Zamarripa CAST NONE SEEN Normal NONE SEEN [facility] Comment on above: Performed By: #### C BC #### [facility] [address] [place] [address] Dr. Juan Zamarripa Crystals LM Nom (Urine sed) NONE SEEN Normal NONE SEEN [facility] Comment on above: Performed By: #### C BC #### [facility] [address] [place] [address] Dr. Juan Zamarripa Epithelial cells LM Ql (Urine sed) FEW Abnormal NONE SEEN /RARE [facility] Comment on above: Performed By: #### C BC #### [facility] [address] [place] [address] Dr. Juan Zamarripa MUCOUS NONE SEEN Normal NONE SEEN [facility] Comment on above: Performed By: #### C BC #### [facility] [address] [place] [address] Dr. Juan Zamarripa RBC 0-2 Normal 0-2 [facility] Comment on above: Performed By: #### C BC #### [facility] [address] [place] [address] Dr. Juan Zamarripa WBC 2-5 Abnormal NONE SEEN [facility] Comment on above: Performed By: #### C BC #### [facility] [address] [place] [address] Dr. Juan Zamarripa XR CHEST 1 Von [...] JAZMINE DODSON Date: 2022-04-12 15:31 Normal [facility] CBC AUTO DIFFon 11-26-2021 BASO # 0.1 103/ul Normal 0.0-0.1 [facility] Comment on above: Performed By: #### L IPA, HSTROPN, TSH, CMP #### [facility] [address] [place] [address] Dr. Juan Zamarripa Basophils/100 WBC (Bld) 0.5 % Normal 0.2-2.0 [facility] Comment on above: Performed By: #### L IPA, HSTROPN, TSH, CMP #### [facility] [address] [place] [address] Dr. Juan Zamarripa EO # 0.1 103/ul Normal 0.0-0.7 [facility] Comment on above: Performed By: #### L IPA, HSTROPN, TSH, CMP #### [facility] [address] [place] [address] Dr. Juan Zamarripa Eosinophils/100 WBC (Bld) 1.1 % Normal 0.9-7.0 [facility] Comment on above: Performed By: #### L IPA, HSTROPN, TSH, CMP #### [facility] [address] [place] [address] Dr. Juan Zamarripa Erythrocyte distribution width (RBC) [Ratio] 12.5 % Normal 11.0-15.0 [facility] Comment on above: Performed By: #### L IPA, HSTROPN, TSH, CMP #### [facility] [address] [place] [address] Dr. Juan Zamarripa Hematocrit (Bld) [Volume fraction] 39.6 % Normal 36.0-48.0 [facility] Comment on above: Performed By: #### L IPA, HSTROPN, TSH, CMP #### [facility] [address] [place] [address] Dr. Juan Zamarripa Hemoglobin (Bld) [Mass/Vol] 13.7 g/dL Normal 12.0-16.0 [facility] Comment on above: Performed By: #### L IPA, HSTROPN, TSH, CMP #### [facility] [address] [place] [address] Dr. Juan Zamarripa IG # 0.04 10e3/ul Critically high 0.00-0.03 [facility] Comment on above: Performed By: #### L IPA, HSTROPN, TSH, CMP #### [facility] [address] [place] [address] Dr. Juan Zamarripa IG % 0.4 % Normal 0.0-0.5 [facility] Comment on above: Performed By: #### L IPA, HSTROPN, TSH, CMP #### [facility] [address] [place] [address] Dr. Juan Zamarripa LYMPH # 4.2 103/ul Critically high 1.2-3.8 [facility] Comment on above: Performed By: #### L IPA, HSTROPN, TSH, CMP #### [facility] [address] [place] [address] Dr. Juan Zamarripa Lymphocytes/100 WBC (Bld) 38.8 % Normal 20.5-60.0 [facility] Comment on above: Performed By: #### L IPA, HSTROPN, TSH, CMP #### [facility] [address] [place] [address] Dr. Juan Zamarripa MANUAL DIFF REQ NO Normal [facility] Comment on above: Performed By: #### L IPA, HSTROPN, TSH, CMP #### [facility] [address] [place] [address] Dr. Juan Zamarripa MCH (RBC) [Entitic mass] 32.2 pg Normal 26.7-34.0 [facility] Comment on above: Performed By: #### L IPA, HSTROPN, TSH, CMP #### [facility] [address] [place] [address] Dr. Juan Zamarripa MCHC (RBC) [Mass/Vol] 34.6 g/dL Normal 29.9-35.2 [facility] Comment on above: Performed By: #### L IPA, HSTROPN, TSH, CMP #### [facility] [address] [place] [address] Dr. Juan Zamarripa MCV (RBC) [Entitic vol] 93.0 fL Normal 81.0-99.0 [facility] Comment on above: Performed By: #### L IPA, HSTROPN, TSH, CMP #### [facility] [address] [place] [address] Dr. Juan Zamarripa MONO # 0.4 103/ul Normal 0.3-0.8 [facility] Comment on above: Performed By: #### L IPA, HSTROPN, TSH, CMP #### [facility] [address] [place] [address] Dr. Juna Zamarripa Monocytes/100 WBC (Bld) 3.9 % Normal 1.7-12.0 [facility] Comment on above: Performed By: #### L IPA, HSTROPN, TSH, CMP #### [facility] [address] [place] [address] Dr. Juan Zamarripa NEUT # 6.1 103/ul Normal 1.4-6.5 [facility] Comment on above: Performed By: #### L IPA, HSTROPN, TSH, CMP #### [facility] [address] [place] [address] Dr. Juan Zamarripa Neutrophils/100 WBC (Bld) 55.3 % Normal 43.0-75.0 [facility] Comment on above: Performed By: #### L IPA, HSTROPN, TSH, CMP #### [facility] [address] [place] [address] Dr. Juan Zamarripa Platelet mean volume (Bld) [Entitic vol] 9.6 fL Normal 9.5-13.5 [facility] Comment on above: Performed By: #### L IPA, HSTROPN, TSH, CMP #### [facility] [address] [place] [address] Dr. Juan Zamarripa PLT 187 103/ul Normal 150-450 [facility] Comment on above: Performed By: #### L IPA, HSTROPN, TSH, CMP #### [facility] [address] [place] [address] Dr. Juan Zamarripa RBC 4.26 106/ul Normal 4.20-5.40 [facility] Comment on above: Performed By: #### L IPA, HSTROPN, TSH, CMP #### [facility] [address] [place] [address] Dr. Juan Zamarripa WBC 10.9 103/ul Normal 4.0-11.0 [facility] Comment on above: Performed By: #### L IPA, HSTROPN, TSH, CMP #### [facility] [address] [place] [address] Dr. Juan Zamarripa Covid-19 PCR ([facility])on 11-07 SARS-CoV-2 (COVID-19) RNA SUNNY+probe Ql (Unsp spec) Not detected Normal NOT DETECTED [facility] Comment on above: Result Comment: When diagnostic [...] for this test is supported by the [employer] of Health and Human Service's declaration that [...] #### L IPA, HSTROPN, TSH, CMP #### [facility] [address] [place] [address] Dr. Juan Zamarripa LIPASEon 11-26-2021 Lipase [Catalytic activity/Vol] 140.0 U/L Normal 73.0-393.0 [facility] Comment on above: Performed By: #### L IPA, HSTROPN, TSH, CMP #### [facility] [address] [place] [address] Dr. Juan Zamarripa PROF 14(COMP METB)on 022 Albumin [Mass/Vol] 4.2 g/dL Normal 3.4-5.0 [facility] Comment on above: Performed By: #### L IPA, HSTROPN, TSH, CMP #### [facility] [address] [place] [address] Dr. Juan Zamarripa Albumin/Globulin [Mass ratio] 1.1 {ratio} Normal [facility] Comment on above: Performed By: #### L IPA, HSTROPN, TSH, CMP #### [facility] [address] [address] [address] Juan Zamarripa ALP [Catalytic activity/Vol] 93 U/L Normal 46-116 [facility] Comment on above: Performed By: #### L IPA, HSTROPN, TSH, CMP #### [facility] [address] [address] [address] Juan Zamarripa ALT [Catalytic activity/Vol] 74 U/L Critically high 14-59 [facility] Comment on above: Performed By: #### L IPA, HSTROPN, TSH, CMP #### [facility] [address] [place] [address] Dr. Juan Zamarripa Anion gap [Moles/Vol] 15.6 mmol/L Normal [facility] Comment on above: Performed By: #### L IPA, HSTROPN, TSH, CMP #### [facility] [address] [address] [address] Juan Zamarripa AST [Catalytic activity/Vol] 46 U/L Critically high 15-37 [facility] Comment on above: Performed By: #### L IPA, HSTROPN, TSH, CMP #### [facility] [address] [place] [address] Dr. Juan Zamarripa Bilirubin [Mass/Vol] 0.6 mg/dL Normal 0.2-1.0 [facility] Comment on above: Performed By: #### L IPA, HSTROPN, TSH, CMP #### [facility] [address] [place] [address] Dr. Juan Zamarripa Calcium [Mass/Vol] 9.7 mg/dL Normal 8.5-10.1 [facility] Comment on above: Performed By: #### L IPA, HSTROPN, TSH, CMP #### [facility] [address] [place] [address] Dr. Juan Zamarripa Chloride [Moles/Vol] 100 mmol/L Normal 98-107 [facility] Comment on above: Performed By: #### L IPA, HSTROPN, TSH, CMP #### [facility] [address] [address] [address] Juan Zamarripa CO2 [Moles/Vol] 25.6 mmol/L Normal 21.0-32.0 [facility] Comment on above: Performed By: #### L IPA, HSTROPN, TSH, CMP #### [facility] [address] [place] [address] Dr. Juan Zamarripa Creatinine [Mass/Vol] 0.89 mg/dL Normal 0.55-1.02 [facility] Comment on above: Performed By: #### L IPA, HSTROPN, TSH, CMP #### [facility] [address] [place] [address] Dr. Juan Zamarripa EGFR-AF [place] >60 Normal >=60 [facility] Comment on above: Performed By: #### L IPA, HSTROPN, TSH, CMP #### [facility] [address] [place] [address] Dr. Juan Zamarripa EGFR-NON AF [place] >60 Normal >=60 [facility] Comment on above: Performed By: #### L IPA, HSTROPN, TSH, CMP #### [facility] [address] [place] [address] Dr. Juan Zamarripa Globulin (S) [Mass/Vol] 3.7 g/dL Normal [facility] Comment on above: Performed By: #### L IPA, HSTROPN, TSH, CMP #### [facility] [address] [place] [address] Dr. Juan Zamarripa Glucose [Mass/Vol] 183 mg/dL Critically high 74-106 [facility] Comment on above: Performed By: #### L IPA, HSTROPN, TSH, CMP #### [facility] [address] [place] [address] Dr. Juan Zamarripa Potassium [Moles/Vol] 4.2 mmol/L Normal 3.5-5.1 [facility] Comment on above: Performed By: #### L IPA, HSTROPN, TSH, CMP #### [facility] [address] [address] [address] Juan Zamarripa Protein [Mass/Vol] 7.9 g/dL Normal 6.4-8.2 [facility] Comment on above: Performed By: #### L IPA, HSTROPN, TSH, CMP #### [facility] [address] [address] [address] Juan Zamarripa Sodium [Moles/Vol] 137 mmol/L Normal 136-145 [facility] Comment on above: Performed By: #### L IPA, HSTROPN, TSH, CMP #### [facility] [address] [place] [address] Dr. Juan Zamarripa Urea nitrogen [Mass/Vol] 13.0 mg/dL Normal 7.0-18.0 [facility] Comment on above: Performed By: #### L IPA, HSTROPN, TSH, CMP #### [facility] [address] [place] [address] Dr. Juan Zamarripa Urea nitrogen/Creatinine [Mass ratio] 14.6 mg/mg Normal [facility] Comment on above: Performed By: #### L IPA, HSTROPN, TSH, CMP #### [facility] [address] [place] [address] Dr. Juan Zamarripa TROPONIN, HIGH SENSITIVITYon 11-26-2021 HSTROP 4.6 pg/mL Normal 4.0-51.3 [facility] Comment on above: Result Comment: CUT- OFF POINTS HAVE BEEN ESTABLISHED BASED ON THE FOURTH UNIVERSAL DEFINITIONS OF MYOCARDIAL INFARCTION. THE UPPER REFERENCE LIMIT (URL) OF TROPONIN, DEFINED THE 99TH PERCENTILE OF cTnI DISTRIBUTION IN A REFERENCE POPULATION, HAS BEEN CONFIRMED THE DECISION THRESHOLD FOR [place] DIAGNOSIS. Performed By: #### L IPA, HSTROPN, TSH, CMP #### [facility] [address] [place] [address] Dr. Juan Zamarripa TSHon 11-26-2021 TSH 2.343 uIU/mL Normal 0.358-3.74 0 [facility] Comment on above: Performed By: #### L IPA, HSTROPN, TSH, CMP #### [facility] [address] [place], [place] [address] Dr. Juan Zamarripa XR CHEST 1 Von [...] VERA ARANA Date: 2021-11-26 21:03 Normal [facility] Covid-19 PCR (CVDTB)on SARS-CoV-2 (COVID-19) RNA SUNNY+probe Ql (Unsp spec) Not detected Normal NOT DETECTED [facility] Comment on above: Result Comment: This test is not yet approved or cleared by the [place] FDA. When there are no FDA-approved or cleared tests available, and other criteria are met, FDA can make tests available under an emergency access mechanism called an Emergency Use Authorization (EUA). The EUA for this test is supported by the [employer] of Health and Human Service's (HHS's) declaration [...] SARS-CoV-2. Performed By: #### C BC #### [facility] [address] [place], [place] [address] Dr. Juan Zamarripa CBC AUTO DIFFon 08-17-2021 BASO # 0.1 103/ul Normal 0.0-0.1 [facility] Comment on above: Performed By: #### L IPA, HSTROPN, TSH, CMP #### [facility] [address] [place] [address] Dr. Juan Zamarripa Basophils/100 WBC (Bld) 0.7 % Normal 0.2-2.0 [facility] Comment on above: Performed By: #### L IPA, HSTROPN, TSH, CMP #### [facility] [address] [place] [address] Dr. Juan Zamarripa EO # 0.1 103/ul Normal 0.0-0.7 [facility] Comment on above: Performed By: #### L IPA, HSTROPN, TSH, CMP #### [facility] [address] [place] [address] Dr. Juan Zamarripa Eosinophils/100 WBC (Bld) 1.6 % Normal 0.9-7.0 [facility] Comment on above: Performed By: #### L IPA, HSTROPN, TSH, CMP #### [facility] [address] [place] [address] Dr. Juan Zamarripa Erythrocyte distribution width (RBC) [Ratio] 12.6 % Normal 11.0-15.0 [facility] Comment on above: Performed By: #### L IPA, HSTROPN, TSH, CMP #### [facility] [address] [place] [address] Dr. Juan Zamarripa Hematocrit (Bld) [Volume fraction] 39.8 % Normal 36.0-48.0 [facility] Comment on above: Performed By: #### L IPA, HSTROPN, TSH, CMP #### [facility] [address] [place] [address] Dr. Juan Zamarripa Hemoglobin (Bld) [Mass/Vol] 13.7 g/dL Normal 12.0-16.0 [facility] Comment on above: Performed By: #### L IPA, HSTROPN, TSH, CMP #### [facility] [address] [place] [address] Dr. Juan Zamarripa IG # 0.02 10e3/ul Normal 0.00-0.03 [facility] Comment on above: Performed By: #### L IPA, HSTROPN, TSH, CMP #### [facility] [address] [address] [address] Juan Zamarripa IG % 0.3 % Normal 0.0-0.5 [facility] Comment on above: Performed By: #### L IPA, HSTROPN, TSH, CMP #### [facility] [address] [address] [address] Juan Zamarripa LYMPH # 3.1 103/ul Normal 1.2-3.8 [facility] Comment on above: Performed By: #### L IPA, HSTROPN, TSH, CMP #### [facility] [address] [place] [address] Dr. Juan Zamarripa Lymphocytes/100 WBC (Bld) 40.5 % Normal 20.5-60.0 [facility] Comment on above: Performed By: #### L IPA, HSTROPN, TSH, CMP #### [facility] [address] [place] [address] Dr. Juan Zamarripa MANUAL DIFF REQ NO Normal [facility] Comment on above: Performed By: #### L IPA, HSTROPN, TSH, CMP #### [facility] [address] [place] [address] Dr. Juan Zamarripa MCH (RBC) [Entitic mass] 32.3 pg Normal 26.7-34.0 [facility] Comment on above: Performed By: #### L IPA, HSTROPN, TSH, CMP #### [facility] [address] [place] [address] Dr. Juan Zamarripa MCHC (RBC) [Mass/Vol] 34.4 g/dL Normal 29.9-35.2 [facility] Comment on above: Performed By: #### L IPA, HSTROPN, TSH, CMP #### [facility] [address] [place] [address] Dr. Juan Zamarripa MCV (RBC) [Entitic vol] 93.9 fL Normal 81.0-99.0 [facility] Comment on above: Performed By: #### L IPA, HSTROPN, TSH, CMP #### [facility] [address] [address] [address] Juan Zamarripa MONO # 0.3 103/ul Normal 0.3-0.8 [facility] Comment on above: Performed By: #### L IPA, HSTROPN, TSH, CMP #### [facility] [address] [place] [address] Dr. Juan Zamarripa Monocytes/100 WBC (Bld) 4.2 % Normal 1.7-12.0 [facility] Comment on above: Performed By: #### L IPA, HSTROPN, TSH, CMP #### [facility] [address] [place] [address] Dr. Juan Zamarripa NEUT # 4.0 103/ul Normal 1.4-6.5 [facility] Comment on above: Performed By: #### L IPA, HSTROPN, TSH, CMP #### [facility] [address] [place] [address] Dr. Juan Zamarripa Neutrophils/100 WBC (Bld) 52.7 % Normal 43.0-75.0 [facility] Comment on above: Performed By: #### L IPA, HSTROPN, TSH, CMP #### [facility] [address] [place] [address] Dr. Juan Zamarripa Platelet mean volume (Bld) [Entitic vol] 9.7 fL Normal 9.5-13.5 [facility] Comment on above: Performed By: #### L IPA, HSTROPN, TSH, CMP #### [facility] [address] [place] [address] Dr. Juan Zamarripa PLT 164 103/ul Normal 150-450 [facility] Comment on above: Performed By: #### L IPA, HSTROPN, TSH, CMP #### [facility] [address] [place] [address] Dr. Juan Zamarripa RBC 4.24 106/ul Normal 4.20-5.40 [facility] Comment on above: Performed By: #### L IPA, HSTROPN, TSH, CMP #### [facility] [address] [place] [address] Dr. Juan Zamarripa WBC 7.6 103/ul Normal 4.0-11.0 [facility] Comment on above: Performed By: #### L IPA, HSTROPN, TSH, CMP #### [facility] [address] [address] [address] Juan Zamarripa FREE T4on 08-17-2021 Free T4 [Mass/Vol] 1.00 ng/dL Normal 0.76-1.46 [facility] Comment on above: Performed By: #### C BC #### [facility] [address] [place] [address] Dr. Juan Zamarripa GLYCOHEMOGLOBIN A1Con 2021 ADA RECOMMENDATION SEE BELOW Normal [facility] Comment on above: Result Comment: ADA RECOMMENDED LIMIT 4.0 - 6.0 ADA THERAPEUTIC TARGET < 7.0 ACTION SUGGESTED > 7.0 Performed By: #### A 1C #### [facility] [address] [place] [address] Dr. Juan Zamarripa Glucose [Mass/Vol] 140 mg/dL Normal [facility] Comment on above: Performed By: #### A 1C #### [facility] [address] [place] [address] Dr. Juan Zamarripa HbA1c (Bld) [Mass fraction] 6.5 % Critically high 4.5-6.2 [facility] Comment on above: Performed By: #### A 1C #### [facility] [address] [place] [address] Dr. Juan Zamarripa LIPID PROFILEon 08-17-2021 CHOL-HDL RATIO NORM SEE BELOW Normal [facility] Comment on above: Result Comment: 3.3 - 4.4 LOW RISK 4.4 - 7.1 AVERAGE RISK 7.1 - 11.0 MODERATE RISK >11.0 HIGH RISK Performed By: #### L IPA, HSTROPN, TSH, CMP #### [facility] [address] [place] [address] Dr. Juan Zamarripa Cholesterol [Mass/Vol] 115 mg/dL Normal <=200 [facility] Comment on above: Performed By: #### L IPA, HSTROPN, TSH, CMP #### [facility] [address] [address] [address] Juan Zamarripa Cholesterol in HDL [Mass/Vol] 40 mg/dL Normal 40-60 [facility] Comment on above: Performed By: #### L IPA, HSTROPN, TSH, CMP #### [facility] [address] [address] [address] Juan Zamarripa Cholesterol in LDL [Mass/Vol] 53.6 mg/dL Normal [facility] Comment on above: Performed By: #### L IPA, HSTROPN, TSH, CMP #### [facility] [address] [address] [address] Juan Zamarripa Cholesterol.total/Amanda sterol in HDL [Mass ratio] 2.9 {ratio} Normal [facility] Comment on above: Performed By: #### L IPA, HSTROPN, TSH, CMP #### [facility] [address] [address] [address] Juan Zamarripa HDL NORMAL > or = 60 mg/dl - LO W CARDIOVASCULAR RISK <40 mg/dl - HIGH CARDIOVASCULAR RISK Normal [facility] Comment on above: Performed By: #### L IPA, HSTROPN, TSH, CMP #### [facility] [address] [address] [address] Juan Zamarripa LDL CALC NORMAL SEE BELOW Normal [facility] Comment on above: Result Comment: <100 mg/dl OPTIMAL 100 - 129 mg/dl NEAR OR ABOVE OPTIMAL 130 - 159 mg/dl BORDERLINE HIGH 160 - 189 mg/dl HIGH >190 mg/dl VERY HIGH Performed By: #### L IPA, HSTROPN, TSH, CMP #### [facility] [address] [address] [address] Juan Zamarripa Triglyceride [Mass/Vol] 107 mg/dL Normal <=[address] [facility] Comment on above: Performed By: #### L IPA, HSTROPN, TSH, CMP #### [facility] [address] [address] [address] Juan Zamarripa VLDL CALC 21.4 mg/dL Normal [facility] Comment on above: Performed By: #### L IPA, HSTROPN, TSH, CMP #### [facility] [address] [place] [address] Dr. Juan Zamarripa PROF 14(COMP METB)on 022 Albumin [Mass/Vol] 4.1 g/dL Normal 3.4-5.0 [facility] Comment on above: Performed By: #### L IPA, HSTROPN, TSH, CMP #### [facility] [address] [place] [address] Dr. Juan Zamarripa Albumin/Globulin [Mass ratio] 1.1 {ratio} Normal [facility] Comment on above: Performed By: #### L IPA, HSTROPN, TSH, CMP #### [facility] [address] [place] [address] Dr. Juan Zamarripa ALP [Catalytic activity/Vol] 94 U/L Normal 46-116 [facility] Comment on above: Performed By: #### L IPA, HSTROPN, TSH, CMP #### [facility] [address] [place] [address] Dr. Juan Zamarripa ALT [Catalytic activity/Vol] 61 U/L Critically high 14-59 [facility] Comment on above: Performed By: #### L IPA, HSTROPN, TSH, CMP #### [facility] [address] [place] [address] Dr. Juan Zamarripa Anion gap [Moles/Vol] 16.5 mmol/L Normal [facility] Comment on above: Performed By: #### L IPA, HSTROPN, TSH, CMP #### [facility] [address] [place] [address] Dr. uJan Zamarripa AST [Catalytic activity/Vol] 24 U/L Normal 15-37 [facility] Comment on above: Performed By: #### L IPA, HSTROPN, TSH, CMP #### [facility] [address] [place] [address] Dr. Juan Zamarripa Bilirubin [Mass/Vol] 0.7 mg/dL Normal 0.2-1.0 [facility] Comment on above: Performed By: #### L IPA, HSTROPN, TSH, CMP #### [facility] [address] [address] [address] Juan Zamarripa Calcium [Mass/Vol] 9.1 mg/dL Normal 8.5-10.1 [facility] Comment on above: Performed By: #### L IPA, HSTROPN, TSH, CMP #### [facility] [address] [place] [address] Dr. Juan Zamarripa Chloride [Moles/Vol] 103 mmol/L Normal 98-107 [facility] Comment on above: Performed By: #### L IPA, HSTROPN, TSH, CMP #### [facility] [address] [place] [address] Dr. Juan Zamarripa CO2 [Moles/Vol] 25.4 mmol/L Normal 21.0-32.0 [facility] Comment on above: Performed By: #### L IPA, HSTROPN, TSH, CMP #### [facility] [address] [place] [address] Dr. Juan Zamarripa Creatinine [Mass/Vol] 0.87 mg/dL Normal 0.55-1.02 [facility] Comment on above: Performed By: #### L IPA, HSTROPN, TSH, CMP #### [facility] [address] [place] [address] Dr. Juan Zamarripa EGFR-AF [place] >60 Normal >=60 [facility] Comment on above: Performed By: #### L IPA, HSTROPN, TSH, CMP #### [facility] [address] [place] [address] Dr. Juan Zamarripa EGFR-NON AF [place] >60 Normal >=60 [facility] Comment on above: Performed By: #### L IPA, HSTROPN, TSH, CMP #### [facility] [address] [place] [address] Dr. Juan Zamarripa Globulin (S) [Mass/Vol] 3.9 g/dL Normal T [facility] Comment on above: Performed By: #### L IPA, HSTROPN, TSH, CMP #### [facility] [address] [place] [address] Dr. Juan Zamarripa Glucose [Mass/Vol] 157 mg/dL Critically high 74-[address] [facility] Comment on above: Performed By: #### L IPA, HSTROPN, TSH, CMP #### [facility] [address] [place] [address] Dr. Juan Zamarripa Potassium [Moles/Vol] 4.4 mmol/L Normal 3.5-5.1 [facility] Comment on above: Performed By: #### L IPA, HSTROPN, TSH, CMP #### [facility] [address] [place] [address] Dr. Juan Zamarripa Protein [Mass/Vol] 8.0 g/dL Normal 6.4-8.2 [facility] Comment on above: Performed By: #### L IPA, HSTROPN, TSH, CMP #### [facility] [address] [place] [address] Dr. Juan Zamarripa Sodium [Moles/Vol] 141 mmol/L Normal 136-145 [facility] Comment on above: Performed By: #### L IPA, HSTROPN, TSH, CMP #### [facility] [address] [place] [address] Dr. Juan Zamarripa Urea nitrogen [Mass/Vol] 21.0 mg/dL Critically high 7.0-18.0 [facility] Comment on above: Performed By: #### L IPA, HSTROPN, TSH, CMP #### [facility] [address] [place] [address] Dr. Juan Zamarripa Urea nitrogen/Creatinine [Mass ratio] 24.1 mg/mg Normal [facility] Comment on above: Performed By: #### L IPA, HSTROPN, TSH, CMP #### [facility] [address] [place] [address] Dr. Juan Zamarripa TSHon 08-17-2021 TSH 1.503 uIU/mL Normal 0.358-3.74 0 [facility] Comment on above: Performed By: #### L IPA, HSTROPN, TSH, CMP #### [facility] [address] [place] [address] Dr. Juan Zamarripa TSH RANGE SEE BELOW Normal [facility] Comment on above: Result Comment: <0.3 4 UIU/ml HYPERTHYROID 0.34-5.60 UIU/ml EUTHYROID >5.60 UIU/ml HYPOTHYROID Performed By: #### L IPA, HSTROPN, TSH, CMP #### [facility] [address] [address] [address] Juan Weinstein 08-11-2021 CNPN Telephone (NCCAP) -------- IVELISSE GEE ([id number]) 1950 F Date Time Provider Department 08/11/21 MEHRDAD AGUILAR During your visit today, we recorded the following information about you: Marta Cuellar [facility] 08/11/2021 12:14 PM Signed Called [...] Normal [facility] [id number] QUANTITA TIONon 10-13-2020 XTDOT-2-VCFSJBUMITT (AAT) PHENOTYPE SEE NOTE Normal [facility] Comment on above: Order Comment: FASTI NG:YES FASTING: YES Result Comment: THIS PATIENT'S ZODXT-5-PSKNHSBWAON PHENOTYPE IS PI*MM. 90% of normal individuals have the MM phenotype, with normal quantitative AAT levels. Many phenotypic patterns have been described, including deficiency states with F, S, Z, or other alleles. As a general estimation, compared to M allele of 100% of normal A-3-Mhfejtteudl protein, the S allele produces approximately 60% and the Z allele 20%. For example, an MS phenotype would have about 80% of normal H-7-Ftglvjzqibz protein level, a 50% contribution from the M allele and 30% from the S allele. A ZZ phenotype would have about 20% of normal levels, a 10% contribution from each Z gene. The F allele has normal M-9-Ngosrydvzan levels, but the kinetics of elastase inhibition [...] phenotype. Performed By: #### 2 63, 457, 74597, 7573, 508, 498, 326, 8472, 496, 249, 42352, 259 #### [facility] [place] [address] [address] Watchstander: Kush Hines MD #### [id number] #### [facility], [address] [place] [address] Watchstander: Susan Sheikh MD,PhD,JAY #### [phone], 44230 #### [facility]/[place] [address] [facility] [place] Watchstander: Parrish Gloria M.D.,PhD [id number] QN 170 mg/dL Normal 83-199 [facility] Comment on above: Order Comment: FASTI NG:YES FASTING: YES Performed By: #### 2 63, 457, 44108, 7573, 508, 498, 326, 8472, 496, 249, 12073, 259 #### [facility] [address] [place] [address] Watchstander: Kush Hines MD #### [id number] #### [facility], [address] [place] [address] Watchstander: Susan Sheikh MD,PhD,JAY #### [phone], 72295 #### [facility]/[place] [address] [facility] [place] Watchstander: Parrish Gloria M.D.,PhD TL SCREEN, IFA, W/REFL TITE R AND PATTERNon 10-13-2020 LT SCREEN, IFA Negative Normal NEGATIVE [facility] [...] AC-0: Negative International Consensus on TL Patterns (https://doi.org/10.1515/lxte-4800-4680) For additional information, please refer to http://education.babberly/faq/RPA636 (This link is being provided for informational/ educational purposes only.) Performed By: #### 2 63, 457, 04209, 7573, 508, 498, 326, 8472, 496, 249, 95659, 259 #### [facility] [address], [address] [place] [address] Watchstander: Kush Hines MD #### [phone] #### [facility], [address] [place] [address] Watchstander: Susan Sheikh MD,PhD,JAY #### [phone], [phone] #### [facility]/[place] [address] [facility] [place] Watchstander: Parrish Gloria M.D.,PhD CELIAC DISEASE COMPREHENSIVE PANEL 10-13-2020 IMMUNOGLOBULIN A 185 mg/dL Normal 70-320 [facility] Comment on above: Performed By: #### 2 63, 457, 16485, 7573, 508, 498, 326, 8472, 496, 249, 68180, 259 #### [facility] [address], [address] [place] [address] Watchstander: Kush Hines MD #### [phone] #### [facility] [address] [place] Watchstander: Susan Sheikh MD,PhD,JAY #### [phone], 57919 #### [facility]/[place] [address] [facility] [place] Watchstander: Parrish Gloria M.D.,PhD INTERPRETATION see note Normal [...] DQ8. Performed By: #### 2 63, 457, 77489, 7573, 508, 498, 326, 8472, 496, 249, 54445, 259 #### [facility] [address], [address] [place] [address] Watchstander: Kush Hines MD #### [id number] #### [facility], [address] [place] [address] Watchstander: Susan Sheikh MD,PhD,JAY #### 37408, [phone] #### [facility] [address] [facility] [address] [place] Watchstander: Parrish Gloria M.D.,PhD TISSUE TRANSGLUTAMINASE AB, IGA 2 U/mL Normal <4 [facility] Comment on above: Result Comment: Value Interpretation <4 U/mL: No Antibody Detected >or=4 U/mL: Antibody Detected Performed By: #### 2 63, 457, 03352, 7573, 508, 498, 326, 8472, 496, 249, 03113, 259 #### [facility] [address], [address] [place] [address] Watchstander: Kush Hines MD #### [phone] #### [facility], [address] [place] [address] Watchstander: Susan Sheikh MD,PhD,JAY #### 25357, 28144 #### [facility] [address] [facility] [address] [place] Watchstander: Parrish Gloria M.D.,PhD CERULOPLASMINon 10-13-2020 CERULOPLASMIN 31 mg/dL Normal 18-53 [facility] Comment on above: Performed By: #### 2 63, 457, 15792, 7573, 508, 498, 326, 8472, 496, 249, 99612, 259 #### [facility] [address], [address] [place] [address] Watchstander: Kush Hines MD #### [phone] #### [facility], [address] [place] [address] Watchstander: Susan Sheikh MD,PhD,JAY #### 04021, 30653 #### [facility] [address] [facility] [place] Watchstander: Parrish Gloria M.D.,PhD FERRITINon 10-13-2020 Ferritin [Mass/Vol] 70 ng/mL Normal 16-288 [facility] Comment on above: Performed By: #### 2 63, 457, 72760, 7573, 508, 498, 326, 8472, 496, 249, 26508, 259 #### [facility] [address] , [address] [place] [address] Watchstander: Kush Hines MD #### [id number] #### [facility], [address] [place] [address] Watchstander: Susan Sheikh MD,PhD,JAY #### 10862, 69255 #### [facility] [address] [facility] [place] Watchstander: Parrish Gloria M.D.,PhD HEMOGLOBIN A1con 10-13-2020 HEMOGLOBIN [...] children. Performed By: #### 2 63, 457, 19774, 7573, 508, 498, 326, 8472, 496, 249, 83536, 259 #### [facility] [address], [address] [place] [address] Watchstander: Kush Hines MD #### [id number] #### [facility], [address] [place] Watchstander: Susan Sheikh MD,PhD,JAY #### 83625, 81825 #### [facility]/[place] [address] [facility] [place] Watchstander: Parrish Gloria M.D.,PhD HEPATITIS A AB, TOTALon 07-0 HEPATITIS A AB, TOTAL Reactive Abnormal NON-RE ACTI VE [facility] Comment on above: Result Comment: For additional information, please refer to http://education.Opicos.TruQu/faq/ZWM448 (This link is being provided for informational/ educational purposes only.) Performed By: #### 2 63, 457, 72552, 7573, 508, 498, 326, 8472, 496, 249, 78685, 259 #### [facility] [address], [address] [place] [address] Watchstander: Kush Hines MD #### [phone] #### [facility], [address] [place], [place] Watchstander: Susan Sheikh MD,PhD,JAY #### 54053, 15061 #### [facility] [address] [facility] [place] [address] Watchstander: Parrish Gloria M.D.,PhD HEPATITIS B CORE AB TOTAL W/ REFL IGMon 10-13-2020 HEPATITIS B CORE AB TOTAL Non-Reactive Normal NON-REACTI VE [facility] Comment on above: Performed By: #### 2 63, 457, 02585, 7573, 508, 498, 326, 8472, 496, 249, 74849, 259 #### [facility] [address] [facility], [address] [place] [address] Watchstander: Kush Hines MD #### 89099 #### [facility], [address] [address] Watchstander: Susan Sheikh MD,PhD,JAY #### 35599, 58617 #### [facility]/[place] [address] [facility] [place] Watchstander: Parrish Gloria M.D.,PhD HEPATITIS B SURFACE ANTIBODY QLon 10-13-2020 HEPATITIS B SURFACE ANTIBODY QL Non-Reactive Normal NON-REACTI VE [facility] Comment on above: Performed By: #### 2 63, 457, 78801, 7573, 508, 498, 326, 8472, 496, 249, 52785, 259 #### [facility] [address] [facility], [address] [place] [address] Watchstander: Kush Hines MD #### [phone] #### [facility], [address] [place] Watchstander: Susan Sheikh MD,PhD,JAY #### 54392, 25171 #### [facility]/[place] [address] [facility] [place] Watchstander: Parrish Gloria M.D.,PhD HEPATITIS B SURFACE ANTIGEN W/REFL CONFIRMon 10-13-2020 HEPATITIS B SURFACE ANTIGEN Non-Reactive Normal NON-REACTI VE [facility] Comment on above: Performed By: #### 2 63, 457, 27149, 7573, 508, 498, 326, 8472, 496, 249, 72071, 259 #### [facility] [address], [address] [place] [address] Watchstander: Kush Hines MD #### 85257 #### [facility], [address] [place] [address] Watchstander: Susan Sheikh MD,PhD,JAY #### 00997, 96933 #### [facility]/[address] [address] [facility] [address] [place] Watchstander: Parrish Gloria M.D.,PhD HEPATITIS C AB W/REFL TO HCV RNA, QN, PCRon 10-13-2020 HEPATITIS C ANTIBODY Non-Reactive Normal NON-CHARMAINE CTI VE [facility] Comment on above: Performed By: #### 2 63, 457, 19262, 7573, 508, 498, 326, 8472, 496, 249, 81608, 259 #### [facility] [address], [address] [place] [address] Watchstander: Kush Hines MD #### 13868 #### [facility], [address] [place] [address] Watchstander: Susan Sheikh MD,PhD,JAY #### 08056, 80836 #### [facility] [address] [facility] [address] [place] Watchstander: Parrish Gloria M.D.,PhD INDEX 0.02 Normal <1.00 [facility] Comment on above: Result Comment: HCV antibody was non-reactive. There is no laboratory evidence of HCV infection. In most cases, no further action is required. However, if recent HCV exposure is suspected, a test for HCV RNA (test code 51803) is suggested. For additional information please refer to http://education.[facility].com/faq/VWM26z0 (This link is being provided for informational/ educational purposes only.) Performed By: #### 2 63, 457, 68251, 7573, 508, 498, 326, 8472, 496, 249, 89040, 259 #### [facility] [address], [address] [place] [address] Watchstander: Kush Hines MD #### 90899 #### [facility], [address] [place] [address] Watchstander: Susan Sheikh MD,PhD,JAY #### 13987, 76764 #### [facility]/[place] [address] [facility] [place] Watchstander: Parrish Gloria M.D.,PhD IRON AND TOTAL IRON BINDING CAPACITYon 10-13-2020 % SATURATION 19 % (calc) Normal 16-45 [facility] Comment on above: Performed By: #### 2 63, 457, 69829, 7573, 508, 498, 326, 8472, 496, 249, 63517, 259 #### [facility] [address], [address] [place] [address] Watchstander: Kush Hines MD #### 62561 #### [facility], [address] [place] [address] Watchstander: Susan Sheikh MD,PhD,JAY #### 53783, 41849 #### [facility] [address] [facility] [place] Watchstander: Parrish Gloria M.D.,PhD IRON BINDING CAPACITY 372 mcg/dL (calc) Normal 250-450 [facility] Comment on above: Performed By: #### 2 63, 457, 68375, 7573, 508, 498, 326, 8472, 496, 249, 03359, 259 #### [facility] [address] , [address] [place] [address] Watchstander: Kush Hines MD #### 76963 #### [facility], [address] [place] [address] Watchstander: Susan Sheikh MD,PhD,JAY #### 31356, 45675 #### [facility] [address] [facility] [place] Watchstander: Parrish Gloria M.D.,PhD IRON, TOTAL 70 mcg/dL Normal 45-160 [facility] Comment on above: Performed By: #### 2 63, 457, 04206, 7573, 508, 498, 326, 8472, 496, 249, 47006, 259 #### [facility] [address], [address] [place] [address] Watchstander: Kush Hines MD #### 38489 #### [facility], [address] [address] Watchstander: Susan Sheikh MD,PhD,JAY #### 52252, 00049 #### [facility] [address] [facility] [place] Watchstander: Parrish Gloria M.D.,PhD LIVER KIDNEY MICROSOME (LKM- [...] infection. Performed By: #### 2 63, 457, 76232, 7573, 508, 498, 326, 8472, 496, 249, 18550, 259 #### [facility] [address], [address] [place] [address] Watchstander: Kush Hines MD #### 39430 #### [facility], [address] [address] Watchstander: Susan Sheikh MD,PhD,JAY #### 90201, 46127 #### [facility] [address] [facility] [place] Watchstander: Parrish Gloria M.D.,PhD MITOCHONDRIAL ANTIBODY W/REF L TITERon 10-13-2020 MITOCHONDRIAL AB SCREEN Negative Normal NEGATIVE [facility] Comment on above: Performed By: #### 2 63, 457, 00558, 7573, 508, 498, 326, 8472, 496, 249, 50739, 259 #### [facility] [address], [address] [place] [address] Watchstander: Kush Hines MD #### 48654 #### [facility], [address] [place], [place] Watchstander: Susan Sheikh MD,PhD,JAY #### 66745, 27104 #### [facility] [address] [facility] [place] Watchstander: Parrish Gloria M.D.,PhD SMOOTH MUSCLE AB W/REFL TITE Butch 10-13-2020 SMOOTH MUSCLE AB SCREEN Negative Normal NEGATIVE Q [facility] Comment on above: Performed By: #### 2 63, 457, 47115, 7573, 508, 498, 326, 8472, 496, 249, 56984, 259 #### [facility] [address] [place] [address], [address] [place] [address] Watchstander: Kush Hines MD #### 91356 #### [facility], [address] [place] [address] Watchstander: Suasn Sheikh MD,PhD,JAY #### 94783, 82262 #### [facility]/[place] [address] [facility] [place] Watchstander: Parrish Gloria M.D.,PhD TSH W/REFLEX TO FT4on 2020 TSH W/REFLEX TO FT4 3.10 mIU/L Normal 0.40-4.50 [facility] Comment on above: Performed By: #### 2 63, 457, 74650, 7573, 508, 498, 326, 8472, 496, 249, 57513, 259 #### [facility] [address], [address] [place] [address] Watchstander: Kush Hines MD #### 98541 #### [facility], [address] [place] [address] Watchstander: Susan Sheikh MD,PhD,JAY #### 86299, 88059 #### [facility] [address] [facility] [place] Watchstander: Parrish Gloria M.D.,PhD CNOVSPon 09-30-2020 CNOVS Visit (SP) Office (HEMAS[place]) -------- IVELISSE [id number]) 1950 F Date Time Provider Department 09/30/20 1:30 PM MEHRDAD AGUILAR During your visit today, we recorded the following information about you: Temperature Pulse Respiration Blood pressure 97.2 degrees 71/minute 18/minute 121/54 Weight Height 73.6 kg 1.57 m Mehrdad Aguilar MD 10/02/2020 5:36 PM Signed PATIENT NAME: Ivelisse Gee DATE: 09/30/2020 PRIMARY CARE PHYSICIAN: Carmen Conley MD OTHER PHYSICIANS: Dr. Wahl (PCP [place], [place]), Dr. Magdaleno Castillo ([facility]) Portions of this encounter note have [...] Ratioon 2020 Albumin Urine Random <12.0 Normal [facility] Comment on above: Performed By: #### C MP, INSLAB, LIPB, CPEPT, GADCAB, B12, VITD, UACR ####[place] [address] [address], [place] [phone] Albumin/Creat Ratio Not calculated Normal <30 [facility] Comment on above: Performed By: #### C MP, INSLAB, LIPB, CPEPT, GADCAB, B12, VITD, UACR ####[address] [address], [place] [phone] Creatinine,Urine,Ran 53.8 mg/dL Normal 20-300 [facility] Comment on above: Performed By: #### C MP, INSLAB, LIPB, CPEPT, GADCAB, B12, VITD, UACR ####[address] [place], [place] [phone] C-Peptideon 09-27-2020 C-Peptide 1.8 ng/mL Normal 0.8-3.9 [facility] Comment on above: Performed By: #### C MP, INSLAB, LIPB, CPEPT, GADCAB, B12, VITD, UACR ####[address] [address] [address], [place] [phone] CBC and Differentialon 09-27 Abs Baso 0.03 k/uL Normal <0.11 [facility] Abs Cambria 0.33 k/uL Normal <0.87 [facility] Abs Neut 4.29 k/uL Normal 1.45-7.50 [facility] Absolute nRBC <0.01 Normal <0.01 [facility] Basophils/100 WBC (Bld) 0.4 % Normal [facility] DTYPE Auto Diff Normal [facility] [...] MCHC (RBC) [Mass/Vol] 34.9 g/dL Normal 30.5-36.0 [facility] MCV (RBC) [Entitic vol] 91.4 fL Normal 80.0-100.[address] [facility] Monocytes/100 WBC (Bld) 4.0 % Normal C [facility] Neutrophils/100 WBC (Bld) 52.5 % Normal [facility] NRBCs 0.0 /100 WBC Normal 0 [facility] Platelet mean volume (Bld) [Entitic vol] 9.6 fL Normal 9.0-12.7 [facility] Platelets (Bld) [#/Vol] 164 10*3/uL Normal 150-400 [facility] RBC (Bld) [#/Vol] 4.08 10*6/uL Normal 3.90-5.20 [facility] WBC (Bld) [#/Vol] 8.18 10*3/uL Normal 3.70-11.00 [facility] Comp Metabolic Panelon 09-27 Albumin [Mass/Vol] 4.4 g/dL Normal 3.9-4.9 [facility] Comment on above: Performed By: #### C MP, INSLAB, LIPB, CPEPT, GADCAB, B12, VITD, UACR ####[place] [address] [address], [place] [phone] ALP [Catalytic activity/Vol] 88 U/L Normal 34-123 [facility] Comment on above: Performed By: #### C MP, INSLAB, LIPB, CPEPT, GADCAB, B12, VITD, UACR ####[place] [address], [place] [phone] ALT [Catalytic activity/Vol] 63 U/L High 7-38 [facility] Comment on above: Performed By: #### C MP, INSLAB, LIPB, CPEPT, GADCAB, B12, VITD, UACR ####[place] [address] [place], [place] [phone] Anion gap [Moles/Vol] 12 mmol/L Normal 9-18 [facility] Comment on above: Performed By: #### C MP, INSLAB, LIPB, CPEPT, GADCAB, B12, VITD, UACR ####[place] [address] [address] [place], [place] [phone] AST [Catalytic activity/Vol] 42 U/L High 13-35 [facility] Comment on above: Performed By: #### C MP, INSLAB, LIPB, CPEPT, GADCAB, B12, VITD, UACR ####[place] [address] [place], [place] [phone] Bilirubin [Mass/Vol] 0.6 mg/dL Normal 0.2-1.3 [facility] Comment on above: Performed By: #### C MP, INSLAB, LIPB, CPEPT, GADCAB, B12, VITD, UACR ####[place] [address] [place], [place] [phone] Calcium [Mass/Vol] 9.2 mg/dL Normal 8.5-10.2 [facility] Comment on above: Performed By: #### C MP, INSLAB, LIPB, CPEPT, GADCAB, B12, VITD, UACR ####[facility] [place], [place] [phone] Chloride [Moles/Vol] 104 mmol/L Normal 97-105 [facility] Comment on above: Performed By: #### C MP, INSLAB, LIPB, CPEPT, GADCAB, B12, VITD, UACR ####[facility] [place], [place] [phone] Creatinine [Mass/Vol] 0.68 mg/dL Normal 0.58-0.96 [facility] Comment on above: Performed By: #### C MP, INSLAB, LIPB, CPEPT, GADCAB, B12, VITD, UACR ####[address] [phone] Glucose [Mass/Vol] 152 mg/dL High 74-99 [facility] Comment on above: Result Comment: The [place] [employer] (ADA) provides guidance for cutoff [...] Standards of Medical Care in Diabetes 2016, [place] [employer]. Diabetes Care. 2016.39(Suppl 1). Performed By: #### C MP, INSLAB, LIPB, CPEPT, GADCAB, B12, VITD, UACR ####[place] [place], [place] [phone] Potassium [Moles/Vol] 4.3 mmol/L Normal 3.7-5.1 [facility] Comment on above: Performed By: #### C MP, INSLAB, LIPB, CPEPT, GADCAB, B12, VITD, UACR ####[facility] [address] [place], [place] [phone] Sodium [Moles/Vol] 140 mmol/L Normal 136-144 [facility] Comment on above: Performed By: #### C MP, INSLAB, LIPB, CPEPT, GADCAB, B12, VITD, UACR ####[facility] [place], [place] [phone] Urea nitrogen [Mass/Vol] 14 mg/dL Normal 7-21 [facility] Comment on above: Performed By: #### C MP, INSLAB, LIPB, CPEPT, GADCAB, B12, VITD, UACR ####[place] [id number] [place], [place] [phone] Albumin [Mass/Vol] 4.5 g/dL Normal 3.9-4.9 [facility] ALP [Catalytic activity/Vol] 83 U/L Normal 34-123 [facility] ALT [Catalytic activity/Vol] 58 U/L High 7-38 [facility] Anion gap [Moles/Vol] 11 mmol/L Normal 9-18 [facility] AST [Catalytic activity/Vol] 34 U/L Normal 13-35 [facility] Bilirubin [Mass/Vol] 0.7 mg/dL Normal 0.2-1.3 [facility] Calcium [Mass/Vol] 9.5 mg/dL Normal 8.5-10.2 [facility] Chloride [Moles/Vol] 103 mmol/L Normal 97-105 [facility] CO2 [Moles/Vol] 24 mmol/L Normal 22-30 [facility] Comment on above: Performed By: #### C MP, INSLAB, LIPB, CPEPT, GADCAB, B12, VITD, UACR ####[facility] [place], [place] [phone] Creatinine [Mass/Vol] 0.67 mg/dL Normal 0.58-0.96 [facility] eGFR- Amer. >60 Normal [facility] Comment on above: Performed By: #### C MP, INSLAB, LIPB, CPEPT, GADCAB, B12, VITD, UACR ####[facility] [place], [place] [phone] eGFR-All Other Races >60 Normal [facility] Comment on above: Result Comment: eGFR [...] INSLAB, LIPB, CPEPT, GADCAB, B12, VITD, UACR ####[facility] [address], [place] [phone] Glucose [Mass/Vol] 161 mg/dL High 74-99 [facility] Comment on above: Result Comment: The [place] Diabetes Association (ADA) provides guidance for cutoff [...] Standards of Medical Care in Diabetes 2016, [place] Diabetes Association. Diabetes Care. 2016.39(Suppl 1). Potassium [Moles/Vol] 4.1 mmol/L Normal 3.7-5.1 [facility] Protein [Mass/Vol] 7.2 g/dL Normal 6.3-8.0 [facility] Comment on above: Performed By: #### C MP, INSLAB, LIPB, CPEPT, GADCAB, B12, VITD, UACR ####[place] [address] [place], [place] [phone] Sodium [Moles/Vol] 138 mmol/L Normal 136-144 [facility] Urea nitrogen [Mass/Vol] 13 mg/dL Normal 7-21 [facility] Glutamic Ac Decar Abon 09-27 Glutam Ac Dec Ab Ql Negative Normal Negative [facility] Comment on above: Performed By: #### C MP, INSLAB, LIPB, CPEPT, GADCAB, B12, VITD, UACR ####[place] [address] [place], [place] [phone] Glutamic Ac Decar Ab <5.0 Normal <5.1 [facility] Comment on above: Performed By: #### C MP, INSLAB, LIPB, CPEPT, GADCAB, B12, VITD, UACR ####[place] [address] [place], [place] [phone] Insulin Autoantibodyon 09-27 Insulin Ab Ql Negative Normal Negative [facility] Comment on above: Performed By: #### C MP, INSLAB, LIPB, CPEPT, GADCAB, B12, VITD, UACR ####[place] [address] [place], [place] [phone] Insulin Antibody <0.4 Normal <0.4 [facility] Comment on above: Performed By: #### C MP, INSLAB, LIPB, CPEPT, GADCAB, B12, VITD, UACR ####[place] [address] [place], [place] [phone] Lipid Panel, [place] 021 Cholesterol [Mass/Vol] 110 mg/dL Normal <200 [facility] Comment on above: Result Comment: <200 mg/dL, Desirable 200-239 mg/dL, Borderline high >239 mg/dL, High Performed By: #### C MP, INSLAB, LIPB, CPEPT, GADCAB, B12, VITD, UACR ####[facility] [place], [place] [phone] Cholesterol in HDL [Mass/Vol] 37 mg/dL Low >39 [facility] Comment on above: Result Comment: 40-5 9 mg/dL, Acceptable >59 mg/dL, High: Negative risk factor for coronary heart disease <40 mg/dL, Low: Positive risk factor for coronary heart disease Performed By: #### C MP, INSLAB, LIPB, CPEPT, GADCAB, B12, VITD, UACR ####[address] [phone] Cholesterol in LDL [Mass/Vol] 49 mg/dL Normal <100 [facility] Comment on above: Result Comment: <100 mg/dL, Optimal 100-129 mg/dL, Near optimal/above optimal 130-159 mg/dL, Borderline high 160-189 mg/dL, High >189 mg/dL, Very high Secondary prevention optimal LDL Cholesterol levels are recommended to be < 70 mg/dL Performed By: #### C MP, INSLAB, LIPB, CPEPT, GADCAB, B12, VITD, UACR ####[address] [phone] Fasting Time 12 hrs Normal [facility] Comment on above: Performed By: #### C MP, INSLAB, LIPB, CPEPT, GADCAB, B12, VITD, UACR ####[place] [address] [place], [place] [phone] LDL:HDL Ratio 1.32 Normal <2.54 [facility] Comment on above: Result Comment: Refe rence: 1. National Cholesterol Education Program ATP III Guideline At-A-Glance Quick Desk Reference: National Heart, Lung, and Blood Pierz. National Institutes of Health. 2001: NIH Publication No. 01-3305. 2. An International Atherosclerosis Society position paper: global recommendations for the management of dyslipidemia: executive summary, Atherosclerosis. 2014: 232(2):410-413. Performed By: #### C MP, INSLAB, LIPB, CPEPT, GADCAB, B12, VITD, UACR ####[place] [address] [place], [place] [phone] Non HDL Cholesterol 73 mg/dL Normal <130 [facility] Comment on above: Result Comment: <130 mg/dL, Optimal 130-159 mg/dL, Near optimal/above optimal 160-189 mg/dL, Borderline high 190-219 mg/dL, High >219 mg/dL, Very high Secondary prevention optimal non HDL Cholesterol levels are recommended to be < 100 mg/dL Performed By: #### C MP, INSLAB, LIPB, CPEPT, GADCAB, B12, VITD, UACR ####[address] [place], [place] [phone] TC:HDL Ratio 2.97 Normal <5.10 [facility] Comment on above: Performed By: #### C MP, INSLAB, LIPB, CPEPT, GADCAB, B12, VITD, UACR ####[place] [phone] Triglyceride [Mass/Vol] 121 mg/dL Normal <150 [facility] Comment on above: Result Comment: <150 mg/dL, Normal 150-199 mg/dL, Borderline high 200-499 mg/dL, High >499 mg/dL, Very high Performed By: #### C MP, INSLAB, LIPB, CPEPT, GADCAB, B12, VITD, UACR ####[address] [place], [place] [phone] VLDL Cholesterol 24 mg/dL Normal <30 [facility] Comment on above: Performed By: #### C MP, INSLAB, LIPB, CPEPT, GADCAB, B12, VITD, UACR ####[address] [place], [place] [phone] Vitamin B12on 09-27-2020 Cobalamin (Vitamin B12) [Mass/Vol] 431 pg/mL Normal 232-1245 [facility] Comment on above: Performed By: #### C MP, INSLAB, LIPB, CPEPT, GADCAB, B12, VITD, UACR ####[facility] [place], [place] [phone] Vitamin D 25 Hydroxyon 09-27 Vitamin D 25 Hydroxy 47.2 ng/mL Normal 31.0-80.0 [facility] Comment on above: Result Comment: Clas sification of 25 [place] Vitamin D status: Insufficiency/Moderate Deficiency: < or = 30 ng/mL Sufficiency/Optimal Levels: 31 to 80 ng/mL Toxicity: > 100 ng/mL Test performed by chemiluminescent immunoassay. Performed By: #### C MP, INSLAB, LIPB, CPEPT, GADCAB, B12, VITD, UACR ####[facility] [address] [place], [place] [phone] [facility] -------- IVELISSE GEE ([id number]) 1950 F Date Time Provider Department 09/22/20 [...] Date Reviewed: 09/22/2020 Reviewed by: Mac Perez APRN.HOSPICE CARE SALES CONSULTANT - Fully Assessed Reason for Visit: Lab Orders [5268] Primary Visit Diagnosis:Thrombocytopen ia (HCC) [D69.6] Order(s):CBC + DIFF [SQCBCDIF] Order #: [id number] STANDING COMP METABOLIC PANEL [SQCMP] Order #: [id number] STANDING Prescriptions as of 09/22/2020 Sig: METFORMIN [...] DATE OF EXAM: Sep 21 2020 11:45AM [facility] 0689 - MRI ABDOMEN WO/W IVCON [...] 6 months is recommended to assess the fpc stability, progression or resolution of the findings. No enhancing pancreatic mass with special attention to the head of the pancreas. 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 5 mm and 9 mm Bosniak type II hemorrhagic cysts at the midpole of the left kidney. Additional subcentimeter renal cysts. Cholecystectomy with mildly dilatation. No choledocholithiasis. Technology Development Intern: SHAHRZAD Transcribe Date/Time: Sep 21 2020 1:58P Dictated by : ANA MARÍA ARAIZA MD This examination was interpreted and the report reviewed and electronically signed by: ANA MARÍA ARAIZA MD on Sep 21 2020 10:19PM EST [id number] Normal [facility] CNPNiki 09-01-2020 CNPN Telephone ([place]) -------- IVELISSE GEE ([id number]) 1950 F Date Time Provider Department 09/01/20 [...] Clerical: Please schedule pt for MRI at [facility]. Thank you. BRM: Order pending, please review and sign. MONICO Louie 09/01/2020 2:24 PM Signed Called patient to inform her that she has been scheduled for MRI @ [facility] on 09/07/20 @ 8:30am. LMOV. 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 Radial Drill Press Set Up Operator (topogram) images: No additional findings. IMPRESSION: [...] any questions regarding this interpretation, please call [phone]. If you are unable to reach us at the number above, please feel free to contact [facility] eRadiology at [phone]. [id number] Normal [facility] Protein Electrophor.on 08-30 Albumin [Mass/Vol] 4.24 g/dL High 3.37-4.23 [facility] Comment on above: Performed By: #### S EPG ####[facility] [address] [place], [place] [phone] Alpha 1 Globulin 0.27 gm/dL Normal 0.18-0.31 [facility] Comment on above: Performed By: #### S EPG ####[facility] [address] [place], [place] [phone] Alpha 2 Globulin 0.82 gm/dL Normal 0.52-0.97 [facility] Comment on above: Performed By: #### S EPG ####[facility] [address], [place] [phone] Beta Globulin 1.11 gm/dL Normal 0.84-1.36 [facility] Comment on above: Performed By: #### S EPG ####[facility] [address] [place], [place] [phone] Gamma Globulin 1.27 gm/dL Normal 0.70-1.44 [facility] Comment on above: Performed By: #### S EPG ####[address] [phone] Interpretation SEE COMMENT [facility] Comment on above: Result Comment: No d efinitive M protein is identified on protein electrophoresis. Performed By: #### S EPG ####[address] [phone] M Protein Location N/A [facility] Comment on above: Performed By: #### S EPG ####[address] [phone] M Shmuel Concentratn 0.00 gm/dL Normal 0.00 [facility] Comment on above: Performed By: #### S EPG ####[place] [phone] Protein [Mass/Vol] 7.7 g/dL Normal 6.3-8.0 [facility] Comment on above: Performed By: #### S EPG ####[place] [phone] SPE Staff Review Reviewed by Audelia Cabrera MD ([id number]) [facility] Comment on above: Performed By: #### S EPG ####[place] [phone] Js 08-23-2020 DAVID Telephone (GRISEL) -------- IVELISSE GEE ([id number]) 1950 F Date Time Provider Department 08/23/20 [...] Lorri Keyes Sec routed this conversation to [facility] Clerical Pool Lorri Keyes Sec ? 3:53 PM Note Left message at Dr Magdaleno Cuello [facility]. They may ask for me. She needs to be seen for Liver cirrhosis. Please call [phone] to refer this patient if they do not call back to schedule. Tracy Gonzáles [facility] 08/24/2020 10:00 AM Signed Records and referral faxed to [facility]. Marta Cuellar Pss 08/25/2020 1:09 PM [...] Encounter Status:Closed by ADELE DELONG on 09/20/20 [facility] Js 08-22-2020 CNPN Telephone ([facility]) -------- IVELISSE GEE ([id number]) 1950 F Date Time Provider Department 08/22/20 MEHRDAD AGUILAR During your visit today, we recorded the following information about you: Allergies As of Date: 08/22/2020 Noted Allergy Reaction SULFA (SULFONAMIDE ANTIBIOTICS) 09/05/2016 10 - Anaphylaxis LATEX, NATURAL RUBBER 09/06/2016 16 - Unknown Comments: Only bandaids Date Reviewed: 08/19/2020 Reviewed by: Carlos Brewer MA - Fully Assessed Reason for Visit: Patient Question [9347] Prescriptions as of 08/22/2020 Sig: METFORMIN ER [...] Encounter Status:Closed by MARTA GARCES on 08/22/20 [facility] CNOVSPon 08-19-2020 CNOVS Visit (SP) Office ([place]) -------- IVELISSE GEE ([id number]) 1950 F Date Time Provider Department 08/19/20 11:15 AM MEHRDAD AGUILAR During your visit today, we recorded the following information about you: Temperature Pulse Respiration Blood pressure 98.2 degrees 88/minute 16/minute 130/56 Weight Height 74 kg 1.57 m Mehrdad Aguilar MD 08/20/2020 1:40 PM Signed PATIENT NAME: Ivelisse Gee DATE: 08/19/2020 PRIMARY CARE PHYSICIAN: Carmen Cnoley MD OTHER PHYSICIANS: Dr. Wahl ((PCP [place], [place]) HPI: This is a 70 year [...] requiring hospitalization, most recently while residing in [place] in June 2020. During her recent hospitalization labs revealed persistent thrombocytopenia with a platelet count ranging from 80-90,000. The patient is currently referred for evaluation of her abnormal CBC. Since the patient's hospitalization she started hfhd-blw-ymcafvg supplements including multivitamin. She has had no [...] [facility] 08-19-2020 [facility] Telephone ([place]) -------- IVELISSE GEE ([id number]) 1950 F Date Time Provider Department 08/19/20 JESSIE ACUÑA (RN) [place] During your visit today, we recorded the following information about you: Jessie Acuña 08/19/2020 12:27 PM Signed Please sign pending CAP CTs w/IVCON for Ivelisse Gee [id number] who was added to the schedule for [...] lymph node [R59.9] Order(s):CT ABD/PEL W IVCON [[id number]] Order #: [id number] FUTURE iv contrast (will be provided with [...] 08-19 Albumin [Mass/Vol] 4.7 g/dL Normal 3.9-4.9 [facility] ALP [Catalytic activity/Vol] 93 U/L Normal 34-123 [facility] ALT [Catalytic activity/Vol] 56 U/L High 7-38 [facility] Anion gap [Moles/Vol] 12 mmol/L Normal 9-18 [facility] AST [Catalytic activity/Vol] 40 U/L High 13-35 [facility] Bilirubin [Mass/Vol] 0.9 mg/dL Normal 0.2-1.3 [facility] Calcium [Mass/Vol] 9.8 mg/dL Normal 8.5-10.2 [facility] Chloride [Moles/Vol] 102 mmol/L Normal 97-105 [facility] CO2 [Moles/Vol] 22 mmol/L Normal 22-30 [facility] Creatinine [Mass/Vol] 0.66 mg/dL Normal 0.58-0.96 [facility] eGFR- Amer. >60 Normal [facility] eGFR-All Other Races >60 Normal [facility] Comment on above: Result Comment: eGFR [...] GFR. Glucose [Mass/Vol] 258 mg/dL High 74-99 [facility] Comment on above: Result Comment: The [place] Diabetes Association (ADA) provides guidance for cutoff [...] Standards of Medical Care in Diabetes 2016, [place] Diabetes [employer]. Diabetes Care. 2016.39(Suppl 1). Potassium [Moles/Vol] 4.3 mmol/L Normal 3.7-5.1 [facility] Protein [Mass/Vol] 8.0 g/dL Normal 6.3-8.0 [facility] Sodium [Moles/Vol] 136 mmol/L Normal 136-144 [facility] Urea nitrogen [Mass/Vol] 13 mg/dL Normal 7-21 [facility] Ferritinon 08-19-2020 Ferritin [Mass/Vol] 184.0 ng/mL Normal 14.7-205.1 [facility] Comment on above: Performed By: #### F ERR, IRON ####[place] [address] [phone] Iron and TIBCon 08-19-2020 Iron [Mass/Vol] 116 ug/dL Normal 41-186 [facility] Comment on above: Performed By: #### F ERR, IRON ####[place] [address] [place] [phone] TIBC 357 ug/dL Normal 232-386 [facility] Comment on above: Performed By: #### F ERR, IRON ####[place] [phone] Transferrin Saturatn 32 % Normal 15-57 [facility] Comment on above: Performed By: #### F ERR, IRON ####[place] [phone] LDon 08-19-2020 LD 171 U/L Normal 135-214 [facility] Monclnl Protein, Seron 08-19 K/L Ratio, Serum 1.43 Normal 0.26-1.65 [facility] Comment on above: Performed By: #### S ERMPA, B12 ####[address] [phone] [place], Free, Serum 28.3 mg/L High 3.30-19.40 [facility] Comment on above: Result Comment: Test performed by an immunoturbidimetric assay on Optilite instrument from [facility]. Immunoglobulin free light chain assay results should be interpreted in conjunction with other tests and in correlation with clinical picture. Performed By: #### Kg DOMINGUEZ B12 ####[place] [phone] Lambda, Free, Serum 19.8 mg/L Normal 5.7-26.3 [facility] Comment on above: Result Comment: Test performed by an immunoturbidimetric assay on Optilite instrument from [facility]. Immunoglobulin free light chain assay results should be interpreted in conjunction with other tests and in correlation with clinical picture. Performed By: #### S ANGELICA B12 ####[place] [phone] MPA Interpretation SEE COMMENT Normal [facility] Comment on above: Result Comment: Poor [...] necessary. Performed By: #### Kg DOMINGUEZ B12 ####[place] [phone] MPA Result A poorly defined reg ion of restricted mobility is present that may represent an M protein. Critically abnormal No M protein is identified . [facility] Comment on above: Performed By: #### S ANGELICA B12 ####[facility] [phone] MPA Serum IgA 196 mg/dL Normal 70-400 [facility] Comment on above: Performed By: #### S ANGELICA, B12 ####[place] [address] [place] [phone] MPA Serum IgG 1243 mg/dL Normal 700-1600 [facility] Comment on above: Performed By: #### S ANGELICA, B12 ####[facility] [address] [place], [place] [phone] MPA Serum IgM 58 mg/dL Normal 40-230 [facility] Comment on above: Performed By: #### S ANGELICA, B12 ####[facility] [address] [place], [place] [phone] Staff Review Reviewed by Audelia Cabrera MD ([id number]) Normal [facility] Comment on above: Performed By: #### S ANGELICA, B12 ####[place] [address] [place], [place] [phone] Remote CBCDIF (for [facility] use o nly)on 08-19-2020 Abs Baso <0.03 Normal <0.11 [facility] Abs Cambria 0.33 k/uL Normal <0.87 [facility] Abs Neut 3.89 k/uL Normal 1.45-7.50 [facility] Absolute nRBC <0.01 Normal <0.01 [facility] Basophils/100 WBC (Bld) 0.3 % Normal C [facility] DTYPE Auto Diff Normal [facility] [...] MCHC (RBC) [Mass/Vol] 34.1 g/dL Normal 30.5-36.0 [facility] MCV (RBC) [Entitic vol] 91.4 fL Normal 80.0-100.[address] [facility] Monocytes/100 WBC (Bld) 4.6 % Normal C [facility] Neutrophils/100 WBC (Bld) 55.0 % Normal [facility] NRBCs 0.0 /100 WBC Normal 0 [facility] Platelet mean volume (Bld) [Entitic vol] 9.7 fL Normal 9.0-12.7 [facility] Platelets (Bld) [#/Vol] 170 10*3/uL Normal 150-400 [facility] RBC (Bld) [#/Vol] 4.43 10*6/uL Normal 3.90-5.20 [facility] WBC (Bld) [#/Vol] 7.11 10*3/uL Normal 3.70-11.00 [facility] Reticulocyteon 08-19-2020 Abs Retic 0.096 M/uL Normal 0.0180-0.1 000 [facility] Retic% 2.2 % High 0.4-2.0 [facility] Vitamin B12on 08-19-2020 Cobalamin (Vitamin B12) [Mass/Vol] 421 pg/mL Normal 232-1245 [facility] Comment on above: Performed By: #### S ERMPA, B12 ####[facility] [address] [place], [place] [phone] Vital Signs Date Time Vital Sign Value Performing Clinician Bea krishnamurthy 10-08-2023 13:29-0400 Diastolic blood pressure 80 mm[Hg] Dontae Hern[facility]dez [facility] 10-08-2023 13:29-0400 Heart rate 79 /min Dontae Hern[facility]dez [facility] 10-08-2023 13:29-0400 Respiratory rate 20 /min Dontae Hern[facility]dez [facility] 10-08-2023 13:29-0400 SaO2% (BldA) [Mass fraction] 94 % Dontae Hern[facility]dez [facility] 10-08-2023 13:29-0400 Systolic blood pressure 134 mm[Hg] Dontae Hern[facility]dez [facility] 09-05-2023 10:12-0400 Diastolic blood pressure 86 mm[Hg] Dontae Hern[facility]dez [facility] 09-05-2023 10:12-0400 Mean blood pressure 105 mm[Hg] Dontae Hern[facility]dez [facility] 09-05-2023 10:12-0400 Systolic blood pressure 142 mm[Hg] Dontae Hern[facility]dez [facility] 09-05-2023 10:01-0400 Blood Pressure Location Dontae Hern[facility]dez [facility] 09-05-2023 10:01-0400 Diastolic blood pressure 88 mm[Hg] Dontae Hern[facility]dez [facility] 09-05-2023 10:01-0400 Heart rate 82 /min Dontae Hern[facility]dez [facility] 09-05-2023 10:01-0400 SaO2% (BldA) [Mass fraction] 97 % Dontae Hern[facility]dez [facility] 09-05-2023 10:01-0400 Systolic blood pressure 142 mm[Hg] Dontae Hern[facility]dez [facility] 07-24-2023 13:50-0400 Blood Pressure Location Shaun Goode [facility] 07-24-2023 13:50-0400 Diastolic blood pressure 77 mm[Hg] Shaun Goode [facility] 07-24-2023 13:50-0400 Heart rate 85 /min Shaun Goode [facility] 07-24-2023 13:50-0400 Respiratory rate 16 /min Shaun Goode [facility] 07-24-2023 13:50-0400 Systolic blood pressure 135 mm[Hg] Mohamad Mouchli [facility] 07-02-2023 09:50-0400 Diastolic blood pressure 72 mm[Hg] Mohamad Mouchli [facility] 07-02-2023 09:50-0400 Heart rate 82 /min Mohamad Mouchli [facility] 07-02-2023 09:50-0400 Mean blood pressure 97 mm[Hg] Mohamad Mouchli [facility] 07-02-2023 09:50-0400 Respiratory rate 17 /min Mohamad Mouchli [facility] 07-02-2023 09:50-0400 SaO2% (BldA) [Mass fraction] 94 % Mohamad Mouchli [facility] 07-02-2023 09:50-0400 Systolic blood pressure 148 mm[Hg] Mohamad Mouchli [facility] 07-02-2023 09:40-0400 Diastolic blood pressure 72 mm[Hg] Mohamad Mouchli [facility] 07-02-2023 09:40-0400 Heart rate 80 /min Mohamad Mouchli [facility] 07-02-2023 09:40-0400 Mean blood pressure 92 mm[Hg] Mohamad Mouchli [facility] 07-02-2023 09:40-0400 Respiratory rate 11 /min Mohamad Mouchli [facility] 07-02-2023 09:40-0400 SaO2% (BldA) [Mass fraction] 93 % Mohamad Mouchli [facility] 07-02-2023 09:40-0400 Systolic blood pressure 132 mm[Hg] Mohamad Mouchli [facility] 07-02-2023 09:35-0400 Diastolic blood pressure 62 mm[Hg] Mohamad Mouchli [facility] 07-02-2023 09:35-0400 Heart rate 86 /min Mohamad Mouchli [facility] 07-02-2023 09:35-0400 Mean blood pressure 90 mm[Hg] Mohamad Mouchli [facility] 07-02-2023 09:35-0400 Respiratory rate 15 /min Mohamad Mouchli [facility] 07-02-2023 09:35-0400 SaO2% (BldA) [Mass fraction] 93 % Mohamad Mouchli [facility] 07-02-2023 09:35-0400 Systolic blood pressure 147 mm[Hg] Mohamad Mouchli [facility] 07-02-2023 09:25-0400 Body temperature 97.16 [degF] Mohamad Mouchli [facility] 07-02-2023 08:43-0400 Blood Pressure Location Mohamad Mouchli [facility] 07-02-2023 08:43-0400 Body temperature 96.8 [degF] Mohamad Mouchli [facility] 06-26-2023 12:17-0400 Blood Pressure Location Mohamad Mouchli [facility] 06-26-2023 12:17-0400 Diastolic blood pressure 82 mm[Hg] Shaun Gipsonli [facility] 06-26-2023 12:17-0400 Heart rate 80 /min Ramyad Mouchli [facility] 06-26-2023 12:17-0400 Respiratory rate 16 /min Shaun Gipsonli [facility] 06-26-2023 12:17-0400 Systolic blood pressure 138 mm[Hg] Shaun Gipsonli [facility] 06-21-2023 13:44-0400 Diastolic blood pressure 68 mm[Hg] Deonte Peraza [facility] 06-21-2023 13:44-0400 Heart rate 96 /min Deonte Peraza [facility] 06-21-2023 13:44-0400 SaO2% (BldA) [Mass fraction] 95 % Deonte Peraza [facility] 06-21-2023 13:44-0400 Systolic blood pressure 138 mm[Hg] Deonte Peraza [facility] 03-21-2023 13:30-0500 Body height 153.67 cm Carmen Conley Other [employer] [facility] Other 03-21-2023 13:30-0500 Body mass index (BMI) [Ratio] 30.54 kg/m2 Carmen Conley Other [employer] Other 03-21-2023 13:30-0500 Body weight 72.12 kg Carmen Conley Other [employer] Other 03-21-2023 13:30-0500 Diastolic blood pressure 79 mm[Hg] Carmen Conley Other [employer] Other 03-21-2023 13:30-0500 Systolic blood pressure 136 mm[Hg] Carmen Conley Other [employer] Other 01-24-2023 11:15-0400 Body height 153.67 cm Carmen Conley Other [employer] Other 01-24-2023 11:15-0400 Body mass index (BMI) [Ratio] 29.58 kg/m2 Carmen Conley Other [employer] Other 01-24-2023 11:15-0400 Body temperature 97.7 [degF] Carmen Conley Other [employer] Other 01-24-2023 11:15-0400 Body weight 69.85 kg Carmen Conley Other [employer] Other 01-24-2023 11:15-0400 Diastolic blood pressure 80 mm[Hg] Carmen Conley Other [employer] Other 01-24-2023 11:15-0400 SaO2% (BldA) [Mass fraction] 97 % Carmen Conley Other [employer] Other 01-24-2023 11:15-0400 Systolic blood pressure 137 mm[Hg] Carmen Conley Other [employer] Other 12-28-2022 13:30-0400 Body height 153.67 cm Carmen Conley Other [employer] Other 12-28-2022 13:30-0400 Body mass index (BMI) [Ratio] 29.96 kg/m2 Carmen Conley Other [employer] Other 12-28-2022 13:30-0400 Body weight 70.76 kg Carmen Conley Other [employer] Other 12-28-2022 13:30-0400 Diastolic blood pressure 64 mm[Hg] Carmen Conley Other [employer] Other 12-28-2022 13:30-0400 Systolic blood pressure 106 mm[Hg] Carmen Conley Other [employer] Other 08-07-2022 12:45-0400 Body height 153.67 cm Carmen Conley Other [employer] Other 08-07-2022 12:45-0400 Body mass index (BMI) [Ratio] 30.15 kg/m2 Carmen Conley Other [employer] Other 08-07-2022 12:45-0400 Body temperature 98.1 [degF] Carmen Conley Other [employer] Other 08-07-2022 12:45-0400 Body weight 71.22 kg Carmen Conley Other [employer] Other 08-07-2022 12:45-0400 Diastolic blood pressure 72 mm[Hg] Carmen Conley Other [employer] Other 08-07-2022 12:45-0400 SaO2% (BldA) [Mass fraction] 97 % Carmen Conley Other [employer] Other 08-07-2022 12:45-0400 Systolic blood pressure 132 mm[Hg] Carmen Conley Other [employer] Other 06-20-2022 12:00-0400 Body height 153.67 cm Carmen Conley Other [employer] Other 06-20-2022 12:00-0400 Body mass index (BMI) [Ratio] 30.54 kg/m2 Carmen Conley Other [employer] Other 06-20-2022 12:00-0400 Body weight 72.12 kg Carmen Conley Other [employer] Other 06-20-2022 12:00-0400 Diastolic blood pressure 70 mm[Hg] Carmen Conley Other [employer] Other 06-20-2022 12:00-0400 SaO2% (BldA) [Mass fraction] 98 % Carmen Conley Other [employer] Other 06-20-2022 12:00-0400 Systolic blood pressure 118 mm[Hg] Carmen Conley Other [employer] Other 06-12-2022 09:30-0500 Body height 153.67 cm Carmen Conley Other [employer] Other 06-12-2022 09:30-0500 Body mass index (BMI) [Ratio] 30.54 kg/m2 Carmen Conley Other [employer] Other 06-12-2022 09:30-0500 Body weight 72.12 kg Carmen Conley Other [employer] Other 06-12-2022 09:30-0500 Diastolic blood pressure 64 mm[Hg] Carmen Conley Other [employer] Other 06-12-2022 09:30-0500 SaO2% (BldA) [Mass fraction] 97 % Carmen Conley Other [employer] Other 06-12-2022 09:30-0500 Systolic blood pressure 116 mm[Hg] Carmen Conley Other [employer] Other 05-10-2022 11:00-0500 Body height 153.67 cm Carmen Conley Other [employer] Other 05-10-2022 11:00-0500 Body mass index (BMI) [Ratio] 30.54 kg/m2 Carmen Conley Other [employer] Other 05-10-2022 11:00-0500 Body weight 72.12 kg Carmen Conley Other [employer] Other 05-10-2022 11:00-0500 Diastolic blood pressure 62 mm[Hg] Carmen Conley Other [employer] Other 05-10-2022 11:00-0500 SaO2% (BldA) [Mass fraction] 97 % Carmen Conley Other [employer] Other 05-10-2022 11:00-0500 Systolic blood pressure 118 mm[Hg] Carmen Conley Other [employer] Other 04-20-2022 11:30-0500 Body height 153.67 cm Carmen Conley Other [employer] Other 04-20-2022 11:30-0500 Body mass index (BMI) [Ratio] 30.54 kg/m2 Carmen Conley Other [employer] Other 04-20-2022 11:30-0500 Body weight 72.12 kg Carmen Conley Other [employer] Other 04-20-2022 11:30-0500 Diastolic blood pressure 80 mm[Hg] Carmen Conley Other [employer] Other 04-20-2022 11:30-0500 SaO2% (BldA) [Mass fraction] 97 % Carmen Conley Other [employer] Other 04-20-2022 11:30-0500 Systolic blood pressure 126 mm[Hg] Carmen Conley Other [employer] Other 04-16-2022 15:15-0500 Body height 153.67 cm Carmen Conley Other [employer] Other 04-16-2022 15:15-0500 Body mass index (BMI) [Ratio] 30.35 kg/m2 Carmen Conley Other [employer] Other 04-16-2022 15:15-0500 Body weight 71.67 kg Carmen Conley Other [employer] Other 04-16-2022 15:15-0500 Diastolic blood pressure 82 mm[Hg] Carmen Conley Other [employer] Other 04-16-2022 15:15-0500 SaO2% (BldA) [Mass fraction] 97 % Carmen Conley Other [employer] Other 04-16-2022 15:15-0500 Systolic blood pressure 136 mm[Hg] Carmen Conley Other [employer] Other Encounters Encounter Date Encounter Type Care Provider Facility Start: 12-16-2023 End: 12-16-2023 ambulatory Nohemy Mohamud MD [facility]: [facility] Start: 11-25-2023 End: 11-25-2023 ambulatory Nohemy Mohamud MD Facility: [facility] Start: 10-28-2023 End: 10-28-2023 ambulatory Nohemy Mohamud MD Facility:[facility] Start: 10-08-2023 End: 10-08-2023 ambulatory PA-C Dontae Hernández Facility:[facility] Start: 10-08-2023 End: 10-08-2023 Patient encounter procedure Dontae Hernández [facility] Start: 10-01-2023 End: 10-01-2023 ambulatory PA-C Dontae Hernández Facility:[facility] Start: 10-01-2023 End: 10-01-2023 Patient encounter procedure Dontae Hernández [facility] Start: 09-05-2023 End: 09-05-2023 ambulatory XXXX NONE Facility:[facility] Start: 09-05-2023 End: 09-05-2023 Patient encounter procedure Dontae Hernández [facility] Start: 08-05-2023 End: 08-05-2023 ambulatory Deonte Peraza Facility:[facility] Start: 08-05-2023 End: 08-05-2023 Patient encounter procedure Deonte Peraza [facility] Start: 08-01-2023 End: 08-16-2023 Pre-admission assessment Deonte Peraza [facility] Start: 07-24-2023 End: 08-07-2023 Pre-admission assessment Shaun Goode [facility] Start: 07-24-2023 End: 07-24-2023 ambulatory Shaun Goode Facility:[facility] Start: 07-24-2023 End: 07-24-2023 Patient encounter procedure Shaun Goode [facility] Start: 07-02-2023 End: 07-02-2023 ambulatory Shaun Goode Facility:[facility] Start: 07-02-2023 End: 07-02-2023 Patient encounter procedure Shaun Goode [facility] Start: 06-26-2023 End: 06-26-2023 ambulatory Ramyad Aiden. Leonelaanjel Facility:[facility] Start: 06-26-2023 End: 06-26-2023 Patient encounter procedure Shaun oGode [facility] Start: 06-26-2023 End: 06-26-2023 ambulatory Ramyad AidenJeff Junitomaximo [facility] Start: 06-26-2023 End: 06-26-2023 Patient encounter procedure Shaun Goode [facility] Start: 06-21-2023 End: 06-21-2023 ambulatory Deonte Peraza Facility:[facility] Start: 06-21-2023 End: 06-21-2023 Patient encounter procedure Deonte Peraza [facility] Start: 06-18-2023 End: 06-18-2023 ambulatory MD Lucho GOINS Facility:[facility] Start: 06-18-2023 End: 06-18-2023 Patient encounter procedure CARMEN CONLEY [facility] Start: 06-13-2023 ambulatory JANUSZ Turner ity:[facility] Start: 05-14-2023 End: 05-14-2023 ambulatory Carmen Conley Other [employer] Other Start: 05-14-2023 Telephone encounter Carmen Conley [facility] Start: 04-16-2023 End: 04-16-2023 ambulatory ZULEIMA Wolfe FELTER Not Available Start: 04-03-2023 End: 04-03-2023 ambulatory Carmen Conley Other [employer] Other Start: 04-03-2023 Telephone encounter Carmen Conley [facility] Start: 04-02-2023 End: 04-02-2023 ambulatory Carmen Conley Other [employer] Other Start: 04-02-2023 Telephone encounter Carmen Conley [facility] Start: 03-21-2023 End: 03-21-2023 ambulatory Carmen Conley Other [employer] Other Start: 03-21-2023 Office outpatient vi sit 15 minutes Carmen Conley [facility] Start: 03-21-2023 Telephone encounter Carmen Conley [facility] Start: 03-04-2023 End: 03-04-2023 ambulatory ZULEIMA Wolfe FELTER Not Available Start: 02-06-2023 End: 02-06-2023 ambulatory Carmen Conley Other [employer] Other Start: 02-06-2023 Telephone encounter Carmen Conley [facility] Start: 02-01-2023 End: 02-01-2023 ambulatory Carmen Conley Other [employer] Other Start: 02-01-2023 Telephone encounter Carmen Conley [facility] Start: 01-24-2023 End: 01-24-2023 ambulatory Carmen Conley Other [employer] Other Start: 01-24-2023 Office outpatient vi sit 15 minutes Carmen Conley [facility] Start: 01-17-2023 End: 01-17-2023 ambulatory Carmen Conley Other [employer] Other Start: 01-17-2023 Telephone encounter Carmen Yael [facility] Start: 01-01-2023 End: 01-01-2023 ambulatory Carmen Conley Other [employer] Other Start: 01-01-2023 Telephone encounter Carmen Yael [facility] Start: 12-28-2022 End: 12-28-2022 ambulatory Carmen Conley Other [employer] Other Start: 12-28-2022 Patient encounter procedure Carmen Yael [facility] Start: 10-04-2022 End: 10-04-2022 ambulatory Carmen Conley Other [employer] Other Start: 10-04-2022 Telephone encounter Carmen Yael [facility] Start: 08-09-2022 End: 08-09-2022 ambulatory Carmen Yael Other [employer] Other Start: 08-09-2022 Telephone encounter Carmen Yael [facility] Start: 08-08-2022 Telephone encounter Carmen Yael [facility] Start: 08-08-2022 End: 08-09-[address] CARMEN CONLEY [employer] Other Start: 08-07-2022 End: 08-07-2022 ambulatory Carmen Conley Other [employer] Other Start: 08-07-2022 Office outpatient vi sit 15 minutes Carmen Conley [facility] Start: 07-31-2022 End: 07-31-2022 ambulatory Carmen Conley Other [employer] Other Start: 07-31-2022 Telephone encounter Carmen Conley [facility] Start: 07-24-2022 End: 07-24-2022 ambulatory Carmen Conley Facility:[facility] Start: 07-02-2022 End: 07-03-[address] CARMEN CONLEY Facility:[facility] Start: 06-20-2022 End: 06-20-2022 ambulatory Carmen Conley Other [employer] Other Start: 06-20-2022 Office outpatient vi sit 10 minutes Carmen Conley [facility] Start: 06-14-2022 End: 06-14-2022 ambulatory Carmen Conley Other [employer] Other Start: 06-14-2022 Telephone encounter Carmen Conley [facility] Start: 06-12-2022 Office outpatient vi sit 15 minutes Carmen Conley [facility] Start: 06-12-2022 End: 06-13-[address] CARMEN CONLEY [employer] Other Start: 05-10-2022 End: 05-10-2022 ambulatory Carmen Conley Other [employer] Other Start: 05-10-2022 Office outpatient vi sit 15 minutes Carmen Conley [facility] Start: 05-10-2022 Telephone encounter Carmen Conley [facility] Start: 05-03-2022 End: 05-03-2022 ambulatory Carmen Conley Other [employer] Other Start: 05-03-2022 Telephone encounter Carmen Conley [facility] Start: 04-23-2022 End: 04-24-[address] CARMEN CONLEY Facility:[facility] Start: 04-20-2022 End: 04-20-2022 ambulatory Carmen Conley Other [employer] Other Start: 04-20-2022 Office outpatient vi sit 25 minutes Carmen Conley [facility] Start: 04-17-2022 End: 04-17-2022 ambulatory Carmen Conley Other [employer] Other Start: 04-17-2022 Telephone encounter Carmen Conley [facility] Start: 04-16-2022 End: 04-16-2022 ambulatory Carmen Conley Other [employer] Other Start: 04-16-2022 Office outpatient charli sit 25 minutes Carmen Conley [facility] Start: 04-12-2022 End: 04-13-[address] [...] Subsequent hospital visit by physician Mri [facility] (Lg Bore/1.5t) Radiology MRI Comment on above: [...] panel - Serum or Plasma Lipid Screening [facility] Start: 09-27-2025 LIPID SCREEN LIPID SCREEN [facility] Start: 01-08-2024 ambulatory Ambulatory Facility:[facility] Start: 09-28-2023 DIABETES SCREEN DIABETES SCREEN [facility] Start: 09-28-2023 Diabetes Screening Diabetes Screening [facility] Start: 12-07-2022 Influenza vaccination Influenza Vaccine (#1) [facility] Start: 04-08-2022 Advance Directive Discussion Advance Directive Discussion [facility] Start: 04-08-2022 Depression Assessment Depression Assessment [facility] Start: 12-07-2021 Influenza vaccination INFLUENZA (Season Ended) [facility] Start: 09-30-2021 Adult depression screening assessment DEPRESSION SCREENING [facility] Start: 04-08-2021 ADVANCE DIRECTIVE DISCUSSION ADVANCE DIRECTIVE DISCUSSION [facility] Start: 02-17-2020 Pneumococcal Vaccine: 65+ (3 - PPSV23 or PCV20) Pneumococcal Vaccine: 65+ (3 - PPSV23 or PCV20) [facility] Start: 01-07-2016 PNEUMOVAX AGE 65 AND OVER WITH 5YR LOOKBACK (#1) PNEUMOVAX AGE 65 AND OVER WITH 5YR LOOKBACK (#1) [facility] Start: 03-31-2015 SHINGRIX VACCINE (2 of 3) SHINGRIX VACCINE (2 of 3) [facility] Start: 2014 BONE DENSITY BONE DENSITY [facility] Start: 2014 Bone Density Screening Bone Density Screening [facility] Start: 2009 RSV Vaccine (1 - 1-dose 60+ series) RSV Vaccine (1 - 1-dose 60+ series) [facility] Start: 1994 COLOGUARD (FIT-DNA) COLOGUARD (FIT-DNA) [facility] Start: 1994 Colonoscopy COLONOSCOPY [facility] Start: 1994 COLORECTAL CANCER SCREENING COLORECTAL CANCER SCREENING [facility] Start: [address] COLONOGRAPHY [facility] Start: 1994 FECAL OCCULT BLOOD FECAL OCCULT BLOOD [facility] Start: 1994 SIGMOIDOSCOPY SIGMOIDOSCOPY [facility] Start: 1989 Mammography [facility] Start: 1968 HEPATITIS B (1 of 3 - Risk 3-dose series) HEPATITIS B (1 of 3 - Risk 3-dose series) [facility] Start: 1968 Urine microalbumin profile [facility] Start: 08-04-1967 HEPATITIS C SCREENING HEPATITIS C SCREENING [facility] Start: 1954 COVID-19 VACCINE (1) COVID-19 VACCINE (1) [facility] Start: 1950 HEPATITIS A (1 of 2 - Risk 2-dose series) HEPATITIS A (1 of 2 - Risk 2-dose series) [facility] Start: 02-02-1950 Covid-19 Vaccine (#1) Covid-19 Vaccine (#1) [facility] Immunizations Immunization Date Immunization Notes Care Provider [facility] 12-28-2022 pneumococcal polysaccharide vaccine, 23 valent Carmen Conley Other [employer] Other 12-28-2022 influenza, high dose seasonal, preservative-free Carmen Conley Other [employer] Other 07-04-2020 COVID-19 Vaccine Moderna - Documentation Purposes Only Carmen Conley Other [employer] Other 01-07-2020 influenza, high dose seasonal, preservative-free Mehrdad Aguilar MD Work Phone: [facility] 01-07-2020 influenza virus vaccine, unspecified formulation Mri Bore/1.5t) [facility] 11-27-2019 influenza virus vaccine, split virus (incl. purified surface antigen) Carmen Conley Other [employer] Other 01-06-2019 influenza, high dose seasonal, preservative-free Mehrdad Aguilar MD Work Phone: [facility] 01-01-2019 influenza virus vaccine, split virus (incl. purified surface antigen) Carmen Conley Other [employer] Other 01-01-2019 influenza virus vaccine, unspecified formulation Mohamad Mouchli [facility] 01-01-2019 Seasonal trivalent influenza vaccine, adjuvanted, preservative free Mehrdad Aguilar MD Work Phone: [facility] 01-13-2018 influenza nasal, unspecified formulation Mehrdad Aguilar MD Work Phone: [facility] 12-17-2017 influenza virus vaccine, unspecified formulation Mohamad Mouchli [facility] 12-17-2017 influenza, high dose seasonal, preservative-free Mehrdad Aguilar MD Work Phone: [facility] 02-05-2017 influenza, high dose seasonal, preservative-free Mehrdad Aguilar MD Work Phone: [facility] 04-09-2016 influenza virus vaccine, unspecified formulation Mohamad Momaximo [facility] 04-09-2016 influenza, injectabl e, quadrivalent, preservative free Mehrdad Aguilar MD Work Phone: [facility] 03-05-2016 influenza, high dose seasonal, preservative-free Mehrdad Aguilar MD Work Phone: [facility] 02-16-2015 influenza, high dose seasonal, preservative-free Mehrdad Aguilar MD Work Phone: [facility] 02-16-2015 pneumococcal conjuga te vaccine, 13 valent Mehrdad Aguilar MD Work Phone: [facility] 02-03-2015 zoster vaccine, live Mehrdad lacey MD Work Phone: [facility] 02-02-2015 influenza, high dose seasonal, preservative-free Mehrdad Aguilar MD Work Phone: [facility] 02-02-2015 pneumococcal conjuga te vaccine, 13 valroque Aguilar MD Work Phone: [facility] 03-24-2014 influenza, injectabl e, quadrivalent, contains preservative Mehrdad Aguliar MD Work Phone: [facility] 01-06-2013 influenza, high dose seasonal, preservative-free Mehrdad Aguilar MD Work Phone: [facility] 01-06-2011 pneumococcal polysaccharide vaccine, 23 valent Mehrdad Aguilar MD Work Phone: [facility] Payers Date Payer Category Payer Self-pay 2020 Private Health Insurance [facility] INDEMNITY [id number] 2020-Present [phone] [address] [place] [address] Indemnity [id number] 2020 Private Health Insurance [id number] 2006 Medicare MEDICARE RAILROA D MEDICARE RAILROAD PB ONLY [id number] 2006-Present [phone] [address] [address] [place] [address] Medicare [id number] 2006 Medicare MEDICARE MEDICAR E A AND B [id number] 2006-Present [phone] [address] [address] [place] [address] Medicare [id number] 2006 Unknown 1959 Medicare [id number] 1959 Private Health Insurance [id number] 2.16.840.1.910971.19 1949 Unknown [id number] 2.16.840.1.434136.3.579. 2.593 1949 Unknown [id number] 2.16.840.1.695763.3.579. 2.593 1949 Unknown [id number] 2.16.840.1.178694.3.579. 2.593 1949 Unknown [id number] 2.16.840.1.995839.3.579. 2.593 1949 Unknown [id number] 2.16.840.1.514218.3.579. 2.593 1949 Unknown [id number] 2.16.840.1.046420.3.579. 2.593 1949 Unknown [id number] 2.16.840.1.658114.3.579. 2.593 1949 Unknown [id number] 2.16.840.1.092413.3.579. 2.593 1949 Unknown [id number] 2.16.840.1.151257.3.579. 2.593 1949 Unknown [id number] 2.16.840.1.682497.3.579. 2.1259 1949 Unknown [id number] 2.16.840.1.699038.3.579. 2.1259 1949 Unknown [id number] 2.16.840.1.158651.3.579. 2.727 1949 Unknown [id number] 2.16.840.1.987296.3.579. 2.727 1949 Unknown [id number] 2.16.840.1.915782.3.579. 2.727 1949 Unknown [id number] 2.16.840.1.766613.3.579. 2.727 1949 Unknown [id number] 2.16.840.1.803950.3.579. 2.727 1949 Unknown [id number] 2.16.840.1.082142.3.579. 2.727 1949 Unknown [id number] 2.16.840.1.685766.3.579. 2.727 1949 Unknown [id number] 2.16.840.1.557772.3.579. 2.727 1949 Unknown [id number] 2.16.840.1.492553.3.579. 2.727 1949 Unknown [id number] 2.16.840.1.517411.3.579. 2.727 1949 Unknown [id number] 2.16.840.1.149414.3.579. 2.727 1949 Unknown [id number] 2.16.840.1.471768.3.579. 2.727 1949 Unknown [id number] 2.16.840.1.501420.3.579. 2.196 1949 Unknown [id number] 2.16.840.1.223179.3.579. 2.196 1949 Unknown [id number] Unknown [id number] Social History Date Type Detail Facility Start: 08-18-2020 End: 10-08-2023 Tobacco smoking status LAIS Never smoked tobacco [facility] Start: 08-18-2020 Tobacco use and exposure Smokeless tobacco non-user [facility] Start: 08-19-2020 End: 09-30-2020 Alcohol intake Ex-drinker (finding) [facility] Start: 1950 Sex Assigned At Not on file [facility] Start: 08-04-2020 End: 08-19-2020 Sex Assigned At [facility] Start: 08-04-2020 End: 08-19-2020 History of Social function [facility] National Score (1-100), lower number is lower risk Not on file [facility] Tobacco smoking status No Smokin g Status Entered [facility] Medical Equipment Procedure Code Equipment Code Equipment Original Text Equi pment Identifier Dates BD Pen Needle Na no U/F 32G X 4 MM Functional Status Date Assessment Result Facility 10-08-2023 Functional Status N/A [facility] 09-05-2023 Functional Status No [facility] 07-24-2023 Functional Status N/A [facility] 07-02-2023 Functional Status N/A [facility] 06-26-2023 Functional Status N/A [facility] 06-21-2023 Functional Status N/A [facility] Clinical Notes 08-19-2020 to 07-03-2023 Note Date & Type Note Facility 07-03-2023 Note [id number] [facility] 07-02-2023 Hospital Discharg e instructions Patient Education 07/02/2023 09:33:43 Endoscopy, Care After Procedure [facility] ([facility]) Endoscopy Care After Procedure Please read [...] blood. Document Released: 11/06/2004 Document Re-Released: 09/16/2006 [facility] Patient Information [place]. 07/02/2023 09:33:36 Esophagitis Esophagitis Esophagitis is inflammation [...] Follow these instructions at home: Medicines Take bfoy-znu-attjrkk and prescription medicines only as told by [...] powder, vinegar, hot sauces, and barbecue sauce. ?[place] fruit juices and citrus fruits, such as oranges, bentley, and limes. ?Tomato-based foods, such as red sauce, chili, salsa, and pizza with red sauce. ?Fried and fatty foods, such as donuts, nauruan fries, potato chips, and high-fat dressings. ?High-fat [...] provider. Document Revised: 10/03/2020 Document Reviewed: 10/03/2020 [employer] Patient Education 2022 [employer]. 07/02/2023 09:33:31 Hiatal Hernia Hiatal Hernia A [...] reduce GERD symptoms. Medicines. These may include: ?Wpbf-tcx-bweuiuw antacids. ?Medicines that make your stomach empty [...] may include: ?Fatty foods, like fried foods. ?[place] fruits, like oranges or lemon. ?Other foods [...] Do not drink alcohol. General instructions Take gang-dsi-jmlbdjj and prescription medicines only as told by [...] provider. Document Revised: 05/22/2022 Document Reviewed: 05/22/2022 [employer] Patient Education 2022 [employer]. Follow Up Care 06/26/2023 13:24:26 With:Rupa CERRATO, ANTIONETTE Luna, [facility] Address: When: Unknown Comments:Call for any problems. The office will reach out in about one week from procedure date. [facility] 07-02-2023 Note Endoscopy Care After Procedure [...] Document Re-Released: 09/16/2006 ExitCare? Patient Information ?2009 [employer]. Gastroenterology Esophagitis Esophagitis is inflammation of the [...] these instructions at home: Medicines ? Take meny-kjt-uiykcyi and prescription medicines only as told by your health care provider. ? Do not take aspirin, ibuprofen, or other NSAIDs unless your health care provider told you to do so. ? If you have trouble taking pills: ? Use a pill splitter to decrease the size of the pi (more content not included)... [facility] 06-18-2023 Note Echocardiology Procedure Exam Date/Time Accession # Ordering Dr. Macedo Transthoracic 06/18/2023 08:41 EDT [id number] CARMEN CONLEY MD Complete CPT code 13079 [id number] Reason for Exam (Echo Transthoracic Complete) R07.9 Chest pain, unspecified Report [facility] [address] [place] [address] Adult Echocardiogram Report Name: IVELISSE GEE Study Date: 06/18/2023 06:57 AM BP: 117/66 mmHg Patient Location: [facility] HR: 71 : 1950 Gender: Female Height: 60 in Age: 72 yrs Ethnicity: [facility] Weight: 155 lb Reason For Study: R07.9 [...] GOINS MD Transcribed by: KARYNA Technologist: LE [facility] 05-14-2023 Evaluation note Encounter Date Diagnosis Assessment Notes May, Type 2 diabetes mellitus with hyperglycemia (ICD-10 - E11.65) [facility] Other 12-27-2023 Evaluation note* Encounter Date Diagnosis Assessment Notes Treatment Notes Treatment Clinical Notes Mar, Type 2 diabetes mellitus with hyperglycemia (ICD-10 - E11.65) [facility] Other 12-26-2023 Evaluation note* Encounter Date Diagnosis Assessment Notes Treatment Notes Treatment Clinical Notes Mar, Type 2 diabetes mellitus with hyperglycemia (ICD-10 - E11.65) [facility] Other 12-14-2023 Evaluation note* Encounter Date Diagnosis Assessment Notes Treatment Notes Treatment Clinical Notes Mar, Panic attack (ICD-10 - F41.0) [facility] Other 12-14-2023 Evaluation note* Encounter Date Diagnosis [...] to continue with above medication as directed. [facility] Other 10-19-2023 Evaluation note* Encounter Date Diagnosis [...] normal chest x-ray on January 17 at [facility]. [facility] Other 09-22-2023 Evaluation note* Encounter Date Diagnosis [...] patient is sent home pleased, without concerns. [facility] Other 06-29-2023 Evaluation note* Encounter Date Diagnosis Assessment Notes Treatment Notes Treatment Clinical Notes Sep, Type 2 diabetes mellitus with hyperglycemia (ICD-10 - E11.65) [facility] Other 05-03-2023 Evaluation note* Encounter Date Diagnosis Assessment Notes Treatment Notes Treatment Clinical Notes August, RLQ abdominal pain (ICD-10 - R10.31) [facility] Other 05-02-2023 Evaluation note* Encounter Date Diagnosis Assessment Notes Treatment Notes Treatment Clinical Notes August, RLQ abdominal pain (ICD-10 - R10.31) Acute pain - assess with labs, CT. Discussed differential with pt. [facility] Other 03-15-2023 Evaluation note* Encounter Date Diagnosis [...] as her information was sent last week. [employer] [facility] Other 03-07-2023 Evaluation note* Encounter Date Diagnosis Assessment Notes Treatment Notes Treatment Clinical Notes Jun, Dysuria (ICD-10 - R30.0) Jun, Type 2 diabetes mellitus with hyperglycemia (ICD-10 - E11.65) Jun, History of sepsis (ICD-10 - Z86.19) Referral placed to [facility] as was suggested by Dr. William. [facility] Other 03-07-2023 Evaluation note* Encounter Date Diagnosis Assessment Notes Treatment Notes Treatment Clinical Notes Jun, Dysuria (ICD-10 - R30.0) Jun, Type 2 diabetes mellitus with hyperglycemia (ICD-10 - E11.65) Stop Januvia. Start ozempic for improved glucose control. Jun, History of sepsis (ICD-10 - Z86.19) Referral placed to [facility] as was suggested by Dr. William. [facility] Other 02-02-2023 Evaluation note* Encounter Date Diagnosis Assessment Notes Treatment Notes Treatment Clinical Notes May, EDU (generalized anxiety disorder) (ICD-10 - F41.1) [facility] Other 02-02-2023 Evaluation note* Encounter Date Diagnosis Assessment Notes Treatment Notes Treatment Clinical Notes May, Panic attack (ICD-10 - F41.0) Discussed stress, medication and health issues. Will refill med started by ER and monitor symptoms. May, Type 2 diabetes mellitus with hyperglycemia (ICD-10 - E11.65) add medication to improve glucose. Pt agrees to consider further referral if needed. [facility] Other 01-13-2023 Evaluation note* Encounter Date Diagnosis [...] antibiotic tomorrow, will check that it cleared. [facility] Other 01-09-2023 Evaluation note* Encounter Date Diagnosis Assessment Notes Treatment Notes Treatment Clinical Notes Apr, Sepsis due to Staphylococcus (ICD-10 - A41.2) Ivelisse feels that the oral antibiotics are not strong enough. Unsure of root cause of staph sepsis/bacteremia . Admitted to [facility] for <24h. Requests referral to ID. Tristen concerned that she has immune deficiency or Hep C that she has been septic in the past. Apr, Type 2 diabetes mellitus with hyperglycemia (ICD-10 - E11.65) will continue to hold metformin due to renal labs. Apr, Elevated liver enzymes (ICD-10 - R74.8) Has been to GI in the past [facility] Other 01-05-2023 NotePROGRESS NOTE NOTE DATE: 04/12/2022 [...] prophylaxis: Lovenox. DISPOSITION: Home when medically stable.[id number] Note PROCEDURE: XR WRIST RT MIN 3 V, XR FOREARM RT 2V COMPARISON: HISTORY: Pain of right wrist FINDINGS: BONES:No acute fracture or dislocation of the forearm or wrist. I'll degenerative changes with joint space narrowing. SOFT TISSUES:Negative. No visible soft tissue swelling. EFFUSION:None visible. OTHER: Negative. IMPRESSION: Mild degenerative changes No acute abnormality Electronically authenticated by: HAYLEY PARHAM Date: 2022-01-07 11:23[facility]10-02-2022 NotePROCEDURE: XR WRIST RT MIN 3 V, XR FOREARM RT 2V COMPARISON: HISTORY: Pain of right wrist FINDINGS: BONES:No acute fracture or dislocation of the forearm or wrist. I'll degenerative changes with joint space narrowing. SOFT TISSUES:Negative. No visible soft tissue swelling. EFFUSION:None visible. OTHER: Negative. IMPRESSION: Mild degenerative changes No acute abnormality Electronically authenticated by: HAYLEY PARHAM Date: 2022-01-07 11:23[facility]05-06-2022 Miscellaneous Notes* Telephone Encounter - Marta Valero - 08/11/2021 12:13 PM EDT Called patient to reschedule an appointment per patient she no longer see Dr. Aguilar and that she had cancelled appointments last year confirmed with patient that she would like to cancel and did notneed to reschedule. [facility] NoteHNO ID: [id number] Author: Mehrdad Aguilar MD Service: ? Author Type: Physician Type: Progress Notes Filed: 10/02/2020 5:36 PM Note Text: PATIENT NAME: Ivelisse Gee DATE: 09/30/2020 PRIMARY CARE PHYSICIAN: Carmen Conley MD OTHER PHYSICIANS: Dr. Wahl (PCP [place], [place]), Dr. Magdaleno Castillo ([facility]) Portions of this encounter note have [...] [facility] NoteHNO ID: [id number] Author: RT Nancie(R) Service: ? Author Type: Financial Supervisor Type: Progress Notes Filed: 09/21/2020 11:30 AM [...] DATE: September 21, 2020 TIME: 11:28 [facility]06-16-2021 NoteHNO ID: [id number] Author: RT Nancie(Bushra) Service: ? Author Type: Financial Supervisor Type: Progress Notes Filed: 09/21/2020 11:26 AM [...] DATE: September 21, 2020 TIME: 11:18 [facility]05-25-2021 NoteHNO ID: [id number] Author: RT Akhil(R) Service: ? Author Type: Financial Supervisor Type: Progress Notes Filed: 08/30/2020 11:31 AM [...] RT Akhil(R) August 30, 2020 11:30 [facility]05-14-2021 NoteHNO ID: [id number] Author: Mehrdad Aguilar MD Service: ? Author Type: Physician Type: Progress Notes Filed: 08/20/2020 1:40 PM Note Text: PATIENT NAME: Ivelisse Gee DATE: 08/19/2020 PRIMARY CARE PHYSICIAN: Carmen Conley MD OTHER PHYSICIANS: Dr. Wahl ((PCP [place], [place]) HPI: This is a 70 year [...] requiring hospitalization, most recently while residing in [place] in June 2020. During her recent hospitalization labs revealed persistent thrombocytopenia with a platelet count ranging from 80-90,000. The patient is currently referred for evaluation of her abnormal CBC. Since the patient's hospitalization she started xcth-tkq-bluohfq supplements including multivitamin. She has had no [...] 01:30:00 PM Scheduled Provider:Karmen CERRATO, Deonte Roth [facility] Type:Cardiology New Patient () Appointment Date:06/26/2023 12:30:00 PM Scheduled Provider:Shaun Goode MD Location:[facility] Appointment Type:[facility] Future App[facility]ments Appointment Date:06/26/2023 12:30:00 PM Scheduled Provider:Shaun Goode MD Location:[facility] Appointment Type:BADH New Patient Appointment Date:08/22/2023 02:00:00 PM Scheduled Provider:Deonte Peraza MD Location[facility] Appointment Type:Cardiology Follow Up (FT) Future Scheduled Tests Radiology* NM Myocardial Spect Rest/Stress 1 Day 06/21/23 [facility] Future Appointments Appointment Date:07/02/2023 09:45:00 AM Scheduled Provider: Location:[facility] Appointment Type:Surgery FT Appointment Date:08/22/2023 02:00:00 PM Scheduled Provider:Deonte Peraza MD [facility] Type:Cardiology Follow Up (FT) Future Scheduled Tests Radiology* NM Myocardial Spect Rest/Stress 1 Day 06/21/23 [facility] Evaluation + Plan note Future Appointments Appointment Date:07/02/2023 09:45:00 AM Scheduled Provider: Location:[facility] Appointment Type:Surgery FT Appointment Date:08/22/2023 02:00:00 PM Scheduled Provider:Deonte Peraza MD [facility] Type:Cardiology Follow Up (FT) Diagnostic Tests Pending * Alpha Fetoprotein Tumor Marker 06/26/23 Future Scheduled Tests Radiology* NM Myocardial Spect Rest/Stress 1 Day 06/21/23 [facility] Future Appointments Appointment Date:08/22/2023 02:00:00 PM Scheduled Provider:Deonte Peraza MD Location[facility] Appointment Type:Cardiology Follow Up (FT) Future Scheduled Tests Radiology* NM Myocardial Spect Rest/Stress 1 Day 06/21/23 [facility] Future Appointments Appointment Date:08/05/2023 08:00:00 AM Scheduled Provider: [facility] App[facility] Type:NM Myocard Spect Multi Rest/Stress-Res Appointment Date:08/05/2023 09:00:00 AM Scheduled Provider: [facility] Appointment Type:NM Myocard Spect Multi Rest/Stress - R Appointment Date:08/05/2023 09:30:00 AM Scheduled Provider: [facility] Appointment Type:NM Myocard Spect Multi Rest/Stress-Str Appointment Date:08/05/2023 10:30:00 AM Scheduled Provider: [facility] Appointment Type:NM Myocar Spect Multi Rest/Stress - St Appointment Date:08/05/2023 11:00:00 AM Scheduled Provider: [facility] Type:CV Holter/Event (FT) Appointment Date:08/06/2023 10:30:00 AM Scheduled Provider: [facility] Appoint[facility] Type:US Abdominal/Pelvis (FT) Appointment Date:08/22/2023 02:00:00 PM Scheduled Provider:Deonte Peraza MD [facility] Type:Cardiology Follow Up (FT) Appointment Date:01/08/2024 12:15:00 PM Scheduled Provider:Shaun Goode MD Location:[facility] Appointment Type:[facility] Follow Up Future Scheduled Tests Laboratory* Alpha Fetoprotein Tumor Marker 07/24/23 * Alpha Fetoprotein Tumor Marker 01/23/24 * CBC w/ Auto Diff 07/24/23 * CBC w/ Auto Diff 01/23/24 * Comprehensive Metabolic Panel 07/24/23 * Comprehensive Metabolic Panel 01/23/24 * PT 07/24/23 * PT 01/23/24 Radiology* NM Myocardial Spect Rest/Stress 1 Day 08/05/23 * US Liver 08/06/[address] [facility] Evaluation + Plan note Future Appointments Appointment Date:08/15/2023 09:00:00 AM Scheduled Provider: [facility] Appointment Type:NM Myocard Spect Multi Rest/Stress-Res Appointment Date:08/15/2023 10:00:00 AM Scheduled Provider: [facility] Appointment Type:NM Myocard Spect Multi Rest/Stress - R Appointment Date:08/15/2023 10:30:00 AM Scheduled Provider: [facility] Appointment Type:NM Myocard Spect Multi Rest/Stress-Str Appointment Date:08/15/2023 11:30:00 AM Scheduled Provider: [facility] Appointment Type:NM Myocar Spect Multi Rest/Stress - St Appointment Date:08/27/2023 01:00:00 PM Scheduled Provider:Dontae Hernández PA-C [facility] Type:Cardiology Follow Up (FT) Appointment Date:01/08/2024 12:15:00 PM Scheduled Provider:Shaun Goode MD Location:[facility] Appointment Type:BADH Follow Up Future Scheduled Tests Laboratory* Alpha Fetoprotein Tumor Marker 07/24/23 * Alpha Fetoprotein Tumor Marker 01/23/24 * CBC w/ Auto Diff 07/24/23 * CBC w/ Auto Diff 01/23/24 * Comprehensive Metabolic Panel 07/24/23 * Comprehensive Metabolic Panel 01/23/24 * PT 07/24/23 * PT 01/23/24 Radiology* NM Myocardial Spect Rest/Stress 1 Day 08/15/23 * US Liver 08/16/23 [facility] Future Appointments Appointment Date:08/27/2023 01:00:00 PM Scheduled Provider:Dontae Hernández PA-C [facility] Type:Cardiology Follow Up (FT) Appointment Date:01/08/2024 12:15:00 PM Scheduled Provider:Shaun Goode MD Location:[facility] Appointment Type:BAD Follow Up Future Scheduled Tests Laboratory* Alpha Fetoprotein Tumor Marker 07/24/23 * Alpha Fetoprotein Tumor Marker 01/23/24 * CBC w/ Auto Diff 07/24/23 * CBC w/ Auto Diff 01/23/24 * Comprehensive Metabolic Panel 07/24/23 * Comprehensive Metabolic Panel 01/23/24 * PT 07/24/23 * PT 01/23/24 Radiology* US Liver 08/16/23 [facility] Future Appointments Appointment Date:10/08/2023 01:45:00 PM Scheduled Provider:Dontae Hernández PA-C [facility] Type:Cardiology Follow Up (FT) Appointment Date:01/08/2024 12:15:00 PM Scheduled Provider:Shaun Goode MD Location:[facility] Appointment Type:BADH Follow Up Future Scheduled Tests Laboratory* Alpha Fetoprotein Tumor Marker 07/24/23 * Alpha Fetoprotein Tumor Marker 01/23/24 * CBC w/ Auto Diff 07/24/23 * CBC w/ Auto Diff 01/23/24 * Comprehensive Metabolic Panel 07/24/23 * Comprehensive Metabolic Panel 01/23/24 * PT 07/24/23 * PT 01/23/24 Radiology* NM Myocardial Spect Rest/Stress 1 Day 09/06/23 * US Liver 08/16/23 [facility] Future Appointments Appointment Date:10/08/2023 01:45:00 PM Scheduled Provider:Dontae Hernández PA-C [facility] Type:Cardiology Follow Up (FT) Appointment Date:01/08/2024 12:15:00 PM Scheduled Provider:Shaun Goode MD Location:[facility] Appointment Type:[facility] Follow Up Future Scheduled Tests Laboratory* Alpha Fetoprotein Tumor Marker 07/24/23 * Alpha Fetoprotein Tumor Marker 01/23/24 * CBC w/ Auto Diff 07/24/23 * CBC w/ Auto Diff 01/23/24 * Comprehensive Metabolic Panel 07/24/23 * Comprehensive Metabolic Panel 01/23/24 * PT 07/24/23 * PT 01/23/24 Radiology* US Liver 08/16/23 [facility] Future Appointments Appointment Date:01/08/2024 12:15:00 PM Scheduled Provider:Shaun Goode MD Location:[facility] Appointment Type:[facility] Follow Up Appointment Date:04/14/2024 01:00:00 PM Scheduled Provider:Dontae Hernández PA-C [facility] Type:Cardiology Follow Up (FT) Future Scheduled Tests Laboratory* Alpha Fetoprotein Tumor Marker 07/24/23 * Alpha Fetoprotein Tumor Marker 01/23/24 * CBC w/ Auto Diff 07/24/23 * CBC w/ Auto Diff 01/23/24 * Comprehensive Metabolic Panel 07/24/23 * Comprehensive Metabolic Panel 01/23/24 * PT 07/24/23 * PT 01/23/24 Radiology* US Liver 08/16/23 [facility] noteNo InformationNort [employer] Other Evaluation note* Diagnosis Thrombocytopenia (HCC) Thrombocytopenia, unspecified 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 documented in this encounter [facility] general Narrative - Reported* Type Description [...] History septic shock Hospitalization History Sepsis 07/07/2020 [facility] Other [facility] general Narrative - Reported* Type Description Date [...] History septic shock Hospitalization History Sepsis 07/07/2020 [facility] Other history general Narrative - Reported* Type [...] Sepsis 07/07/2020 Hospitalization History Covid positive 01/17/23 [facility] Other Hospital course Narrative No data available for this section [facility] No data available for this section [facility] No data available for this section [facility] Summary Purpose Family History No Family [...] Callahan - will scan in reports from 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 [place], [place],[address] Referred Provider Specialty Infectious D isease Referral Priority Routine General Notes Itzel Parekh 03:10:38 PM >received today, labs, and notes attached, locked and faxed P2P Itzel Parekh 04/18/2022 10:54:24 AM >per Dr. Callahan pt does not need to be seen to treat Reason 06/11/22 Labs pend ing, has fibro. strong family history of autoimmune issues. Diagnosis 1 Myalgia (M79.10) Referral Organization [facility] lincain Referring Provider First Name Carmen Referring Provider Last Name Conley Referring Provider Specialty [facility] Referred Organization [place] [facility] Referred Provider Daniel Gomez Referred Address [address] [place],[address] Referred Provider Specialty Rheumatology Referral Priority Routine Referral Appointment Date 2022-06-11 General Notes Itzel Parekh 03:45:56 PM >received today, labs pending. ins card attached, notes locked and referral faxed Itzel Parekh 04/27/2022 10:22:51 AM >faxed first attempt letter Itzel Parekh 04/30/2022 02:17:43 PM >received fax with appt date and time Reason 06/28/22 Pt wants to see the [employer] in [facility] - phone is [phone]. Please send same info that was sent to the referral for Dr. Gomez. Thanks Diagnosis 1 Dysuria (R30.0) Referral Organization [facility] mana Referring Provider First Name Carmen Referring Provider Last Name Conley Referring Provider Specialty [facility] Referred Organization Unknown Facility Referred Provider Specialty Immunology Referral Priority Routine Referral Appointment Date 2022-06-28 General Notes Itzel Parekh 11:00:51 AM >received today, attachments made, notes locked, referral faxed Itzel Parekh 06/20/2022 01:01:04 PM >faxed first attempt letter Itzel Parekh 06/21/2022 08:59:47 AM >RECEIVED FAX WITH APPT DATE AND TIME Clinical Notes p: [phone] f: [id number] Reason 06/28/22 Pt wants to see the [employer] in [facility] - phone is [phone]. Please send same info that was sent to the referral for Dr. Gomez. Thanks Diagnosis 1 Dysuria (R30.0) Referral Organization [facility] mana Referring Provider First Name Carmen Referring Provider Last Name Conley Referring Provider Specialty [facility] Referred Organization Unknown Facility Referred Provider Specialty [...] for review. Closing referral Clinical Notes p: [phone] f: [phone] Additional Source Comments INFORMATION SOURCE (unrecogn ized section and content) DATE CREATED AUTHOR 02/05/2021 [facility] [facility] DATE CREATED AUTHOR AUTHOR'S ORGANIZ ATION 08/12/2021 [facility] DATE CREATED AUTHOR AUTHOR'S ORGANIZ ATION 07/28/2022 [facility] DATE CREATED AUTHOR AUTHOR'S ORGANIZ ATION 08/16/2022 [facility] DATE CREATED AUTHOR AUTHOR'S ORGANIZ ATION 04/17/2023 [facility] EPIC DATE CREATED AUTHOR AUTHOR'S ORGANIZ ATION 10/09/[address] [facility] DATE CREATED AUTHOR AUTHOR'S ORGANIZ ATION 12/22/2023 [facility] Source Comments (unrecognize d section and content) In the event this informatio n is protected by the Federal Confidentiality of Alcohol and Drug Abuse Patient Records regulations: The Federal rules restrict any use of the information to criminally investigate or prosecute any alcohol or drug abuse patient.[facility] the event this information is protected by the Federal Confidentiality of Alcohol and Drug Abuse Patient Records regulations: The Federal rules restrict any use of the information to criminally investigate or prosecute any alcohol or drug abuse patient.[facility] Reason for Visit (unrecogniz ed section and content) Reason Comments Appointment Care Teams (unrecognized sec tion and content) Gathering Worker Relationship Specialty Start Date End Date Carmen Conley MD [address] [place] [address] PCP - General Family Practice 08/04/20 Gathering Worker Relationship Specialty Start Date End Date Carmen Conley MD [address] [place] [address] PCP - General Family Medicine [...] BE BASED ON THE PRIMARY CLINICAL RECORDS. [employer] [facility]. provides no warranty or guarantee of the accuracy or completeness of information in this document.
== END 2023-12-31 08:52 | disposition home or self-care (01) ==
PROVIDERS: PCP Family Medicine; Visit Provider Family Medicine
DX: N39.0 Urinary tract infection, site not specified (principal); B95.1 Streptococcus, group B, as the cause of diseases classified elsewhere
CPT/HCPCS: 36415; 83690; 87086

== ENCOUNTER 2024-01-06 08:42 | Day surgery (SDC) | payer MEDICARE, OTHER, SELFPAY ==
--- OUTSIDE RECORDS SUMMARY | 2024-01-06 08:59 | XMS_ITS | CCD ---
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 Role Phone Carmen Conley MD Primary Care Provider Camren Conley Attending Unavailable Carmen Conley Primary Care [...] CONLEY, DR CARMEN Riggins Primary Care Unavailable [place], DR HAYLEY Martinez Consulting Unavailable CONLEY, DR [...] CERRATO, Nohemy Aguayo Attending Unavailable [place] CERRATO, Nohmey Aguayo Attending Unavailable [place] CERRATO, Nohemy Aguayo Attending Unavailable Allergies Allergy Classification Reported Allergen(s) Allergy Type Date of Onset Reaction(s) Facility Sulfonamides (antibiotic) (1 source) Sulfonamides (Antibiotic); Translations: [sulfa drugs] Drug Allergy Weal (disorder) [facility] (2 sources) Latex Drug Allergy 09-07-19 17 Unknown [facility] (2 sources) Sulfonamides (Antibiotic) Drug Allergy 09-06-19 17 Anaphylaxis [facility] (20 sources) Latex Propensity to adverse reactions Unknown [facility] Other (20 sources) Sulfonamides (Antibiotic) Propensity to adverse reactions Unknown [facility] Other (1 source) Latex Drug allergy (disorder) 10-15-19 16 [facility] (1 source) Sulfonamides (Antibiotic) Drug allergy (disorder) 08-19-19 13 [facility] (13 sources) sulfADIAZINE Drug Allergy 09-12-19 18 Comment:RABIAA [facility] Other (12 sources) Adhesive bandage; Translations: [Adhesive Bandage] Drug allergy Eruption of skin (disorder) [facility] (11 sources) Sulfonamides (Antibiotic); Translations: [sulfa drugs] Drug allergy Weal (disorder) [facility] Medications Current Medications Medication Drug Class(es) Dates Sig (Normalized) Sig (Original) [id number] actuat albuterol 0.09 mg/actuat metered dose [...] Daily, # 30 cap(s), Refills(s) 5, Pharmacy: [facility]/pharmacy #[id number], 155, cm, 06/26/23 12:22:00 EDT, Height/Length Dosing, [...] Daily, # 30 tab(s), Refills(s) 2, Pharmacy: [facility]/pharmacy #[id number], 155, cm, 09/05/23 10:04:00 EDT, [...] Daily, # 90 tab(s), Refills(s) 3, Pharmacy: [facility]/pharmacy #[id number], 153, cm, 07/24/23 13:54:00 EDT, [...] Long-term current use of insulin; Translations: [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 Substitutions may have occurred due to the [...] Ozempic, Sub (more content not included)... Normal [facility] Comment on above: Result Comment: Elec tronically Signed By: Edgar BOUDREAUX, Dontae Wolfe\.elyse\Date and Time Signed: 10/08/23 13:53 EDT NM Myocardial Spect Rest/Str ess 1 Dayon 10-02-2023 NM Myocardial Spect Rest/Stress 1 Day Exam Date/Time: 10/01/2023 14:13 EDT Reason for Exam: ventricular tachycardia;Other (please specify) Report [facility] [address] [place] [address] Nuclear Stress Report Name: IVELISSE GEE Study Date: 10/01/2023 12:32 PM Patient Location: [facility] : 1950 (M/d/yyyy) Gender: Female Age: 73 yrs Ethnicity: T Reason For Study: Other (please specify) Ordering Physician: Dontae Hernández Referring Physician: Dontae Hernández Protocol 33338 Pharmacologic Lexiscan stress with Isotope. Study Protocol: [...] Signed by: Deonte Peraza MD Transcribed by: [facility] Technologist: ISAAC Wahl [facility] Consent for Treatmenton 09-07 Consent for Treatment [id number]#1.00TIF F [facility] Monitor Recordon 10-01-2023 Monitor Record [id number]#1.00TIF F [facility] Event Monitoron 09-30-2023 Event Monitor EVENT [...] BY: Ciaran Villatoro MD ca Dictated: 09/28/2023 [id number] Transcribed: 09/30/2023 [facility] Comment on above: Result Comment: Elec tronically Signed By: Shauna CERRATO, Ciaran Mccabe\.br\Date and Time Signed: 09/30/23 13:51 EDT Consent for Treatmenton 08-08 Consent for Treatment [id number]#1.00TIF F [facility] Heart and Vascular Office/Cl inic Noteon [...] Daily, # 30 tab(s), Refills(s) 2, Pharmacy: [facility]/pharmacy #[id number], 155, cm, 09/05/23 10:04:00 EDT, [...] with voice recognition artificial intelligence software, specifically CleverAds, RollCall (roll.to) and or SIZESEEKER. Substitutions may have occurred due to the [...] Father. Immunizations [facility] (more content not included)... [facility] Comment on above: Result Comment: Elec tronically Signed By: Edgar BOUDREAUX, Dontae Wolfe\.elyse\Date and Time Signed: 09/05/23 12:53 EDT Physician Orderon 09-05-2023 Physician Order [id number]#1.00T IFF [facility] Monitor Recordon 09-03-2023 Monitor Record [id number]#1.00TI FF [facility] Consent for Treatmenton 07-08 Consent for Treatment [id number]#1.00TIF F [facility] Ambulatory Visit Summaryon 0 07-24-2023 Ambulatory [...] Rupa CERRATO, Shaun Xiao Where: [facility] Digestive Health Normal [facility] Gastroenterology Office/Clin ic Noteon 07-24-2023 [...] 1-2 bowel movements every day by using dwji-nzz-htdpoxt laxatives such as senna Advised to massage [...] Daily, # 30 cap(s), Refills(s) 5, Pharmacy: [facility]/pharmacy #[id number], 155, cm, 06/26/23 12:22:00 EDT, Height/Length Dosing, 72.1, kg, 06/26/23 12:22:00 EDT, Weight Dosing pantoprazole, 40 mg = 1 tab(s), Oral, Daily, # 90 tab(s), Refills(s) 3, Pharmacy: [facility]/pharmacy #[id number], 153, cm, 07/24/23 13:54:00 EDT, [...] virus vaccine, inactivated 04/09/2016 Recorded Normal [facility] Comment on above: Result Comment: Elec tronically Signed By: Rupa CERRATO, Shaun Resendiz.br\Date and Time Signed: 07/24/23 14:16 EDT IntraOperative Documentson 0 07-04-2023 IntraOperative Documents [id number]#1.00TI FF [facility] Consenton 07-03-2023 Consent [id number]#1.00TI FF [facility] Discharge Instructionson Discharge Instructions [id number]#1.00TI [facility] Main OR Intraoperative Recor don 07-03-2023 Main OR Intraoperative Record IntraOp Document Type FT Summary Primary Physician: Shaun Goode MD Finalized Date/Time: 07/03/23 11:58:54 Pt. Name: MARLENIVELISSE/Sex: 1950 Female Med Rec #: [id number] Physician: Shaun Goode MD Financial #: [id number] Pt. Type: O Room/Bed: / Admit/Disch: 07/02/23 [...] Alicia MARC, Aba Mcgill CRNA Role Performed [place]yer - Primary NANOTECHNOLOGY ENGINEERING TECHNICIAN Time In 07/02/23 09:08:00 07/02/23 09:08:00 Time [...] 09:12:00 Outcomes Met? Yes Last Modified By: Adlee Vargas RN 07/02/23 09:15:39 Post-Care Text: The [...] and tissue Entry 1 Skin Integrity Intact, [place], Warm, and Skin Abnormality No Dry Outcomes [...] Yes Left (more content not included)... Normal [facility] Postoperative Documentson Postoperative Documents [id number]#1.00TI FF Normal [facility] Progress Note-Physicianon Progress Note-Physician Patient: [...] selected or recorded. Histories Procedure history: Bladder ([id number]). Comments: 06/26/2023 12:18 EDT - Nancy Cuenca 15 years ago Gallbladder ([id number]). Hysterectomy ([id number]). Arm ([id number]). Hand (707058309). Social History Social & Psychosocial Habits Tobacco 06/26/2023 Risk Assessment: Denies Tobacco Use 06/26/2023 Tobacco Use: Never (less than 100 in l . Physical Examination Airway: Mallampati classification: II (soft palate, fauces, uvula visible). Respiratory: adequate air exchange. Cardiovascular: Regular rhythm. Plan [place] [employer] Anesthesiologists (ASA) physical status classification: Class II. Anesthetic Preoperative Plan: Anesthesia General. [facility] Comment on above: Result Comment: Elec tronically Signed By: Brant Friedman Jr, DO\.br\Date and Time Signed: 07/03/23 15:21 EDT Progress Note-Physician Patient: IVELISSE GEE Age: 72 years Sex: Female : 1950 Associated Diagnoses: None Author: Brant Friedman Jr, DO Postoperative Information Postoperative disposition: Postoperative disposition: To PACU. Optimetrix number: Optimetrix number [id number]. Anesthetic utilized: General. Health Status Allergies: Allergic [...] when meets criteria ( To home ). [facility] Comment on above: Result Comment: Elec tronically Signed By: Brant Friedman Jr, DO\harvinder\Date and Time Signed: 07/03/23 15:20 EDT Consent for Treatmenton 06-07 Consent for Treatment [id number]#1.00TIF F [facility] Discharge Instructionson Discharge Instructions IVELISSE GEE [...] Follow Up with Rupa CERRATO, Shaun Xiao [facility], [facility] When: Comments: Call for any problems. [...] Document Re-Released: 09/16/2006 ExitCare? Patient Information ?2009 [employer]. Esophagitis Esophagitis is inflammation of the esophagus. [...] to the (more content not included)... Normal [facility] [...] Daily, # 30 cap(s), Refills(s) 5, Pharmacy: [facility]/pharmacy #[id number], 155, cm, 06/26/23 12:22:00 EDT, Height/Length Dosing, [...] status post biopsies Images Procedure images: Rec_video_ [id number].jpg Rec_hd_video_ [id number].jpg Rec_hd_video_ [id number].jpg Rec_hd_video_ [id number].jpg Rechdvideo [id number].jpg Rec_hd_video_ [id number].jpg . Post-Procedure Complications: none. Estimated blood loss: none. Specimens: sent to pathology. Devices/ implants: none left in place. Impression and Plan EGD: Diagnosis: Esophagitis, reflux (HHJ14-UQ K21.00, Working, Medical). Course: Progressing as expected. Education and Follow-up: Counseled: Family. Notes: Start Protonix 40 mg once daily Might benefit from Carafate in the future. [facility] Comment on above: Other Comment: Kathy hernandez Attachment - attachment storage system not supported [id number] Can be viewed in source system Missing Attachment - attachment storage system not supported [id number] Can be viewed in source system Missing Attachment - attachment storage system not supported [id number] Can be viewed in source system Missing Attachment - attachment storage system not supported [id number] Can be viewed in source system Missing Attachment - attachment storage system not supported [id number] Can be viewed in source system Missing Attachment - attachment storage system not supported [id number] Can be viewed in source system Main OR PACU I Recordon 06-07 Main OR PACU I Record PACU Phase I Docum ent Type FT Summary Primary Physician: Shaun Goode MD Finalized Date/Time: 07/02/23 10:08:53 Pt. Name: IVELISSE GEE/Sex: 1950 Female Med Rec #: [id number] Physician: Shaun Goode MD Financial #: [id number] Pt. Type: O Room/Bed: / Admit/Disch: 07/02/23 [...] Signed By: Elma Vanessa I 07/02/23 10:08 [facility] Main OR Preoperative Recordo n 07-02-2023 Main OR Preoperative Record Holding Area Document Type FT Summary Primary Physician: Shaun Goode MD Finalized Date/Time: 07/02/23 08:43:45 Pt. Name: IVELISSE GEE/Sex: 1950 Female Med Rec #: [id number] Physician: Shaun Goode MD Financial #: [id number] Pt. Type: O Room/Bed: / Admit/Disch: 07/02/23 [...] By: Alex Calhoun RN 07/02/23 08:43 Normal [facility] Monitor Recordon 07-02-2023 Monitor Record [id number]#1.00TI FF Normal [facility] Monitor Record [id number]#1.00TI FF Normal [facility] AFPon 06-27-2023 AFP.tumor marker [Mass/Vol] 3.5 ng/mL Invalid Interpretation Code 0.0-9.2 [facility] Comment on above: Result Comment: [employer] [employer] Electrochemiluminescence Immunoassay (ECLIA) Values obtained with different assay methods or kits cannot be used interchangeably. Results cannot be interpreted as absolute evidence of the presence or absence of malignant disease. This test is not interpretable in females. Performed at: [address] [id number] PhD Isidoro Pak Performed By: #### 2 [id number] ####[facility] [address] [place] [address] Consent for Procedure/Surger yon 06-27-2023 Consent for Procedure/Surgery [id number]#1.00TIF F Normal [facility] Ambulatory Visit Summaryon 0 06-26-2023 Ambulatory Visit [...] you for choosing us for your care. [facility] Consent for Treatmenton 06-07 Consent for Treatment [id number]#1.00TIF F Normal [facility] Gastroenterology Office/Clin ic Noteon 06-26-2023 [...] 1-2 bowel movements every day by using ziba-xjg-gurarfp laxatives such as senna Advised to massage [...] influenza virus vaccine, inactivated 04/09/2016 Recorded Normal [facility] Comment on above: Result Comment: Elec tronically Signed By: Rupa CERRATO, Shaun Resendiz.elyse\Date and Time Signed: 06/26/23 13:09 EDT Physician Orderon 06-24-2023 Physician Order [id number]#1.00TIFF Normal [facility] Heart and Vascular Office/Cl inic [...] appointment on 06/26/2023. She went back to [facility], although it made her feel unwell. [...] with voice recognition artificial intelligence software, specifically CleverAds, RollCall (roll.to) and or SIZESEEKER. Substitutions may have occurred due to the inherent limitations of voice recognition and artificial intelligence software. ATTESTATION: Documentation services were performed after patient or guardian consented to allow [employer] to record this visit. SAMUEL special forces specialist and provider reviewed before signing. SAMUEL: [...] History Tobacco - Denies Tobacco Use, 06/21/2023 [facility] Comment on above: Result [...] Saturday 12:30 PM EDT With: Rupa CERRATO, Sahun Xiao Where: [facility] Digestive Health [facility] Consent for Treatmenton 06-06 Consent for Treatment [id number]#1.00TIF F [facility] Physician Referralon 024 Physician Referral [id number]#1.00TIF F [facility] Referrals Officeon 4 Referrals Office [id number]#1.00TIF F Normal [facility] Physician Orderon 05-30-2023 Physician Order [id number]#1.00TIF F Normal [facility] Referrals Officeon Referrals Office [id number]#1.00TIF F Normal [facility] CREATININEon 08-08-2022 Creatinine [Mass/Vol] 0.94 mg/dL Normal 0.55-1.02 [facility] Comment on above: Performed By: #### L IPA, HSTROPN, TSH, CMP #### [facility] [address] [address] [address] Juan Zamarripa EGFR-AF SPANISH >60 Normal >=[address] [facility] Comment on above: Performed By: #### L IPA, HSTROPN, TSH, CMP #### [facility] [address] [address] [address] Juan Zamarripa EGFR-NON AF SPANISH 58 mL/min/1.73m2 Critically low >=60 [facility] Comment on above: Performed By: #### L IPA, HSTROPN, TSH, CMP #### [facility] [address] ABD/PELVIS WO CONon [...] SIBLEY Date: 2022-08-08 13:42 Normal [facility] Urine Cultureon 07-24-2022 Bacteria identified Cx Nom (U) No Growth 2 Days PERFORMED BY: [place] [address] PATHOLOGIST ASSOCIATE CIVIL ENGINEER JAIMIE RIVERA M.D. Normal [facility] Comment on above: Performed By: #### C UU #### [address] PNEUMOCOCCAL IM (23 SEROTYPE )on 07-07-2022 Pneumo Ab Type 1* 2.8 ug/mL Normal >1.3 [facility] Comment on above: Performed By: #### L IPA, HSTROPN, TSH, CMP #### [facility] [address] [address] [address] Juan Zamarripa Pneumo Ab Type 12 (12F)* 0.2 ug/mL Critically low >1.3 [facility] Comment on above: Performed By: #### L IPA, HSTROPN, TSH, CMP #### [facility] [address] [address] [address] Juan Zamarripa Pneumo Ab Type 14* >18.7 Normal >1.3 [facility] Comment on above: Performed By: #### L IPA, HSTROPN, TSH, CMP #### [facility] [address] [address] [address] Juan Zamarripa Pneumo Ab Type 17 (17F)* >20.2 Normal >1.3 [facility] Comment on above: Performed By: #### L IPA, HSTROPN, TSH, CMP #### [facility] [address] [place] [address] Dr. Juan Zamarripa Pneumo Ab Type 19 (19F)* 21.7 ug/mL Normal >1.3 [facility] Comment on above: Performed By: #### L IPA, HSTROPN, TSH, CMP #### [facility] [address] [place] [address] Dr. Juan Zamarripa Pneumo Ab Type 2* 5.7 ug/mL Normal >1.3 [facility] Comment on above: Performed By: #### L IPA, HSTROPN, TSH, CMP #### [facility] [address] [place] [address] Dr. Juan Zamarripa Pneumo Ab Type 20* 4.0 ug/mL Normal >1.3 [facility] Comment on above: Performed By: #### L IPA, HSTROPN, TSH, CMP #### [facility] [address] [place] [address] Dr. Juan Zamarripa Pneumo Ab Type 22 (22F)* 1.5 ug/mL Normal >1.3 [facility] Comment on above: Performed By: #### L IPA, HSTROPN, TSH, CMP #### [facility] [address] [place] [address] Dr. Juan Zamarripa Pneumo Ab Type 23 (23F)* 3.4 ug/mL Normal >1.3 [facility] Comment on above: Performed By: #### L IPA, HSTROPN, TSH, CMP #### [facility] [address] [place] [address] Dr. Juan Zamarripa Pneumo Ab Type 26 (6B)* 3.0 ug/mL Normal >1.3 [facility] Comment on above: Performed By: #### L IPA, HSTROPN, TSH, CMP #### [facility] [address] [address] [address] Juan Zamarripa Pneumo Ab Type 3* 1.6 ug/mL Normal >1.3 [facility] Comment on above: Performed By: #### L IPA, HSTROPN, TSH, CMP #### [facility] [address] [place] [address] Dr. Juan Zamarripa Pneumo Ab Type 34 (10A)* 4.4 ug/mL Normal >1.3 [facility] Comment on above: Performed By: #### L IPA, HSTROPN, TSH, CMP #### [facility] [address] [place] [address] Dr. Juan Zamarripa Pneumo Ab Type 4* 1.6 ug/mL Normal >1.3 [facility] Comment on above: Performed By: #### L IPA, HSTROPN, TSH, CMP #### [facility] [address] [place] [address] Dr. Juan Zamarripa Pneumo Ab Type 43 (11A)* >7.6 Normal >1.3 [facility] Comment on above: Performed By: #### L IPA, HSTROPN, TSH, CMP #### [facility] [address] [place] [address] Dr. Juan Zamarripa Pneumo Ab Type 5* 2.0 ug/mL Normal >1.3 [facility] Comment on above: Performed By: #### L IPA, HSTROPN, TSH, CMP #### [facility] [address] [address] [address] uJan Zamarripa Pneumo Ab Type 51 (7F)* 0.9 ug/mL Critically low >1.3 [facility] Comment on above: Performed By: #### L IPA, HSTROPN, TSH, CMP #### [facility] [address] [place] [address] Dr. Juan Zamarripa Pneumo Ab Type 54 (15B)* >22.0 Normal >1.3 [facility] Comment on above: Performed By: #### L IPA, HSTROPN, TSH, CMP #### [facility] [address] [place] [address] Dr. Juan Zamarripa Pneumo Ab Type 56 (18C)* >8.1 Normal >1.3 [facility] Comment on above: Performed By: #### L IPA, HSTROPN, TSH, CMP #### [facility] [address] [place] [address] Dr. Juan Zamarripa Pneumo Ab Type 57 (19A)* 2.5 ug/mL Normal >1.3 [facility] Comment on above: Performed By: #### L IPA, HSTROPN, TSH, CMP #### [facility] [address] [place] [address] Dr. Juan Zamarripa Pneumo Ab Type 68 (9V)* >13.4 Normal >1.3 [facility] Comment on above: Performed By: #### L IPA, HSTROPN, TSH, CMP #### [facility] [address] [place] [address] Dr. Juan Zamarripa Pneumo Ab Type 70 (33F)* >10.1 Normal >1.3 [facility] Comment on above: Result Comment: *Thi s test was developed and its performance characteristics determined by [facility]. It has not been cleared or approved by the U.S. Food and Drug Administration. Performed By: #### L IPA, HSTROPN, TSH, CMP #### [facility] [address] [place] [address] Dr. Juan Zamarripa Pneumo Ab Type 8* 1.2 ug/mL Critically low >1.3 [facility] Comment on above: Performed By: #### L IPA, HSTROPN, TSH, CMP #### [facility] [address] [place] [address] Dr. Juan Zamarripa Pneumo Ab Type 9 (9N)* 1.7 ug/mL Normal >1.3 [facility] Comment on above: Performed By: #### L IPA, HSTROPN, TSH, CMP #### [facility] [address] [place] [address] Dr. Juan Zamarripa BORDETELLA PERTUSSIS AB IGGo n 0330-2023 B pertussis IgG Ab 1.53 index Invalid Interpretation Code 0.00-0.94 [facility] Comment on above: Result Comment: Clie nt Requested Flag Negative <0.95 Equivocal 0.95 - 1.04 Positive >1.04 Performed By: #### A 1C #### [facility] [address] [place] [address] Dr. Juan Zamarripa TETANUS DIPTHERIA AB PROFILE on 07-05-2022 Diphtheria Antitoxoid Ab 0.29 IU/mL Normal <0.10 [facility] Comment on above: Result Comment: Inte rpretation: Non-Protective <0.10 Protective >=0.10 . For research use only. Performed By: #### C BC #### [facility] [address] [place] [address] Dr. Juan Zamarripa Tetanus Antitoxoid IgG Ab 0.94 IU/mL Normal <0.10 [facility] Comment on above: Result Comment: Inte rpretation: Non-Protective <0.10 Protective >=0.10 Results for this test are for research purposes only by the assay's laundry aide. The performance characteristics of this product have not been established. Results should not be used as a diagnostic procedure without confirmation of the diagnosis by another medically established diagnostic product or procedure. Performed By: #### C BC #### [facility] [address] [place] [address] Dr. Juan Zamarripa HAEMOPHILUS INFLUENZA B IGGo n 07-04-2022 Haemophilus influenzae B IgG 0.21 ug/mL Normal [facility] Comment on above: Result Comment: NOTE : An anti-Hib level of 0.15 ug/mL is generally accepted as the minimum level for protection. Optimal protection post-vaccination requires a level greater than 1.00 ug/mL. Performed By: #### L IPA, HSTROPN, TSH, CMP #### [facility] [address] [place] [address] Dr. Juan Zamarripa IMMUNOGLOBULINS IGA/IGM/IGG QUANTITATIVEon 07-03-2022 Immunoglobulin A, Qn, Serum 219 mg/dL Normal 64-422 [facility] Comment on above: Performed By: #### L IPA, HSTROPN, TSH, CMP #### [facility] [address] [address] [address] Juan Zamarripa Immunoglobulin G, Qn, Serum 1365 mg/dL Normal 586-1602 [facility] Comment on above: Performed By: #### L IPA, HSTROPN, TSH, CMP #### [facility] [address] [address] [address] Juan Zamarripa Immunoglobulin M, Qn, Serum 66 mg/dL Normal 26-217 [facility] Comment on above: Performed By: #### L IPA, HSTROPN, TSH, CMP #### [facility] [address] [address] [address] Juan Zamarripa LYMPHOCYTE ACTIVITY PROFILEo n 07-03-2022 %CD3+CD25+Lymphs 20.3 % Normal 4.9-25.[address] [facility] Comment on above: Result Comment: This test was developed and its performance characteristics determined by [facility]. It has not been cleared or approved by the Food and Drug Administration. Performed at: BN Performed By: #### L YMACT #### [facility] [address] [place] [address] Dr. Juan Zamarripa %CD8+CD57+Lymphs 16.6 % Critically high 0.0-11.3 [facility] Comment on above: Result Comment: This test was developed and its performance characteristics determined by [facility]. It has not been cleared or approved by the Food and Drug Administration. Performed at: BN Performed By: #### L YMACT #### [facility] [address] [place] [address] Dr. Juan Zamarripa Abs CD 4 helper 986 /uL Normal 359-[address] [facility] Comment on above: Result Comment: Perf ormed at: CB Performed By: #### L YMACT #### [facility] [address] [place] [address] Dr. Juan Zamarripa Abs. CD 8 Supp 898 /uL Critically high 109-897 [facility] Comment on above: Result Comment: Perf ormed at: CB Performed By: #### L YMACT #### [facility] [address] [place], [place] [id number] Dr. Juan Zamarripa Abs.CD3+CD25+Lymphs 447 /uL Normal 79-535 [facility] Comment on above: Result Comment: This test was developed and its performance characteristics determined by [facility]. It has not been cleared or approved by the Food and Drug Administration. Performed at: CB Performed By: #### L YMACT #### [facility] [address] [place] [address] Dr. Juan Zamarripa Abs.CD8+CD57+Lymphs 365 /uL Critically high 0-254 [facility] Comment on above: Result Comment: This test was developed and its performance characteristics determined by [facility]. It has not been cleared or approved by the Food and Drug Administration. Performed at: CB Performed By: #### L YMACT #### [facility] [address] [place] [address] Dr. Juan Zamarripa Absolute CD 3 1918 /uL Normal [phone] [facility] Comment on above: Result Comment: Perf ormed at: CB Performed By: #### L YMACT #### [facility] [address] [place] [address] Dr. Juan Zamarripa Basophils (Bld) [#/Vol] 0.0 10*3/uL Normal 0.0-0.2 [facility] Comment on above: Result Comment: Perf ormed at: CB Performed By: #### L YMACT #### [facility] [address] [place] [address] Dr. Juan Zamarripa Basophils/100 WBC (Bld) 1 % Normal Not Estab. T [facility] Comment on above: Result Comment: Perf ormed at: CB Performed By: #### L YMACT #### [facility] [address] [place] [address] Dr. uJan Zamarripa CD4/CD8 Ratio 1.10 Normal 0.92-3.72 [facility] Comment on above: Result Comment: Perf ormed at: BN Performed By: #### L YMACT #### [facility] [address] [place] [address] Dr. Juan Zamarripa Eosinophils (Bld) [#/Vol] 0.1 10*3/uL Normal 0.0-0.4 [facility] Comment on above: Result Comment: Perf ormed at: CB Performed By: #### L YMACT #### [facility] [address] [address] [address] Juan Zamarripa Eosinophils/100 WBC (Bld) 1 % Normal Not Estab. [facility] Comment on above: Result Comment: Perf ormed at: CB Performed By: #### L YMACT #### [facility] [address] [address] [address] Juan Zamarripa Erythrocyte distribution width (RBC) [Ratio] 12.6 % Normal 11.7-15.4 [facility] Comment on above: Result Comment: Perf ormed at: CB Performed By: #### L YMACT #### [facility] [address] [place] [address] Dr. Juan Zamarripa Hematocrit (Bld) [Volume fraction] 41.9 % Normal 34.0-46.6 [facility] Comment on above: Result Comment: Perf ormed at: CB Performed By: #### L YMACT #### [facility] [address] [place] [address] Dr. Juan Zamarripa Hematology Comments Normal [facility] Comment on above: Result Comment: Perf ormed at: CB Performed By: #### L YMACT #### [facility] [address] [place] [address] Dr. Juan Zamarripa Hemoglobin (Bld) [Mass/Vol] 14.2 g/dL Normal 11.1-15.9 [facility] Comment on above: Result Comment: Perf ormed at: CB Performed By: #### L YMACT #### [facility] [address] [place] [address] Dr. Juan Zamarripa Immature Cells Normal [facility] Comment on above: Result Comment: Perf ormed at: CB Performed By: #### L YMACT #### [facility] [address] [place] [address] Dr. Juan Zamarripa Immature Grans (Abs) 0.0 x10E3/uL Normal 0.0-0.1 [facility] Comment on above: Result Comment: Perf ormed at: CB Performed By: #### L YMACT #### [facility] [address] [address] [address] Juan Zamarripa Immature granulocytes/100 WBC (Bld) 0 % Normal Not Estab. [facility] Comment on above: Result Comment: Perf ormed at: CB Performed By: #### L YMACT #### [facility] [address] [place] [address] Dr. Juan Zamarripa Lymphocytes (Bld) [#/Vol] 2.2 10*3/uL Normal 0.7-3.1 [facility] Comment on above: Result Comment: Perf ormed at: CB Performed By: #### L YMACT #### [facility] [address] [place] [address] Dr. Juan Zamarripa Lymphocytes/100 WBC (Bld) 87.2 % Critically high 57.5-86.2 [facility] Comment on above: Result Comment: Perf ormed at: BN Performed By: #### L YMACT #### [facility] [address] [place] [address] Dr. Juan Zamarripa Lymphocytes/100 WBC (Bld) 44.8 % Normal 30.8-58.5 [facility] Comment on above: Result Comment: Perf ormed at: BN Performed By: #### L YMACT #### [facility] [address] [place] [address] Dr. Juan Zamarripa Lymphocytes/100 WBC (Bld) 40.8 % Critically high 12.0-35.5 [facility] Comment on above: Result Comment: Perf ormed at: BN Performed By: #### L YMACT #### [facility] [address] [place] [address] Dr. Juan Zamarripa Lymphocytes/100 WBC (Bld) 34 % Normal Not Estab. [facility] Comment on above: Result Comment: Perf ormed at: CB Performed By: #### L YMACT #### [facility] [address] [place] [address] Dr. Juan Zamarripa MCH (RBC) [Entitic mass] 31.3 pg Normal 26.6-33.0 [facility] Comment on above: Result Comment: Perf ormed at: CB Performed By: #### L YMACT #### [facility] [address] [place] [address] Dr. Juan Zamarripa MCHC (RBC) [Mass/Vol] 33.9 g/dL Normal 31.5-35.7 [facility] Comment on above: Result Comment: Perf ormed at: CB Performed By: #### L YMACT #### [facility] [address] [address] [address] Juan Zamarripa MCV (RBC) [Entitic vol] 92 fL Normal 79-97 [facility] Comment on above: Result Comment: Perf ormed at: CB Performed By: #### L YMACT #### [facility] [address] [place] [address] Dr. Juan Zamarripa Monocytes (Bld) [#/Vol] 0.3 10*3/uL Normal 0.1-0.9 [facility] Comment on above: Result Comment: Perf ormed at: CB Performed By: #### L YMACT #### [facility] [address] [place] [address] Dr. Juan Zamarripa Monocytes/100 WBC (Bld) 4 % Normal Not Estab. [facility] Comment on above: Result Comment: Perf ormed at: CB Performed By: #### L YMACT #### [facility] [address] [place] [address] Dr. Juan Zamarripa Neutrophils Absolute 4.0 x10E3/uL Normal 1.4-7.0 [facility] Comment on above: Result Comment: Perf ormed at: CB Performed By: #### L YMACT #### [facility] [address] [place] [address] Dr. Juan Zamarripa Neutrophils/100 WBC (Bld) 60 % Normal Not Estab. [facility] Comment on above: Result Comment: Perf ormed at: CB Performed By: #### L YMACT #### [facility] [address] [place] [address] Dr. Juan Zamarripa NRBC Normal [facility] Comment on above: Result Comment: Perf ormed at: CB Performed By: #### L YMACT #### [facility] [address] [address] [address] Juan Zamarripa Platelets (Bld) [#/Vol] 164 10*3/uL Normal 150-450 [facility] Comment on above: Result Comment: Perf ormed at: CB Performed By: #### L YMACT #### [facility] [address] [place] [address] Dr. Juan Zamarripa RBC (Bld) [#/Vol] 4.54 10*6/uL Normal 3.77-5.28 [facility] Comment on above: Result Comment: Perf ormed at: CB Performed By: #### L YMACT #### [facility] [address] [place] [address] Dr. Juan Zamarripa WBC (Bld) [#/Vol] 6.6 10*3/uL Normal 3.4-10.8 [facility] Comment on above: Result Comment: Perf ormed at: CB Performed By: #### L YMACT #### [facility] [address] [place] [address] Dr. Juan Zamarripa PROF 14(COMP METB)on 023 Albumin [Mass/Vol] 4.1 g/dL Normal 3.4-5.0 [facility] Comment on above: Performed By: #### L IPA, HSTROPN, TSH, CMP #### [facility] [address] [place] [address] Dr. Juan Zamarripa Albumin/Globulin [Mass ratio] 1.1 {ratio} Normal [facility] Comment on above: Performed By: #### L IPA, HSTROPN, TSH, CMP #### [facility] [address] [place] [address] Dr. Juan Zamarripa ALP [Catalytic activity/Vol] 107 U/L Normal 46-116 [facility] Comment on above: Performed By: #### L IPA, HSTROPN, TSH, CMP #### [facility] [address] [place] [address] Dr. Juan Zamarripa ALT [Catalytic activity/Vol] 69 U/L Critically high 14-59 [facility] Comment on above: Performed By: #### L IPA, HSTROPN, TSH, CMP #### [facility] [address] [address] [address] Juan Zamarripa Anion gap [Moles/Vol] 14.0 mmol/L Normal Th e [facility] Comment on above: Performed By: #### L IPA, HSTROPN, TSH, CMP #### [facility] [address] [address] [address] Juan Zamarripa AST [Catalytic activity/Vol] 31 U/L Normal 15-37 [facility] Comment on above: Performed By: #### L IPA, HSTROPN, TSH, CMP #### [facility] [address] [place] [address] Dr. Juan Zamarripa Bilirubin [Mass/Vol] 0.8 mg/dL Normal 0.2-1.0 [facility] Comment on above: Performed By: #### L IPA, HSTROPN, TSH, CMP #### [facility] [address] [address] [address] Juan Zamarripa Calcium [Mass/Vol] 9.1 mg/dL Normal 8.5-10.1 [facility] Comment on above: Performed By: #### L IPA, HSTROPN, TSH, CMP #### [facility] [address] [place] [address] Dr. Juan Zamarripa Chloride [Moles/Vol] 104 mmol/L Normal 98-107 [facility] Comment on above: Performed By: #### L IPA, HSTROPN, TSH, CMP #### [facility] [address] [place] [address] Dr. Juan Zamarripa CO2 [Moles/Vol] 28.1 mmol/L Normal 21.0-32.0 [facility] Comment on above: Performed By: #### L IPA, HSTROPN, TSH, CMP #### [facility] [address] [address] [address] Juan Zamarripa Creatinine [Mass/Vol] 0.77 mg/dL Normal 0.55-1.02 [facility] Comment on above: Performed By: #### L IPA, HSTROPN, TSH, CMP #### [facility] [address] [address] [address] Juan Zamarripa EGFR-AF SPANISH >60 Normal >=[address] [facility] Comment on above: Performed By: #### L IPA, HSTROPN, TSH, CMP #### [facility] [address] [address] [address] Juan Zamarripa EGFR-NON AF SPANISH >60 Normal >=60 [facility] Comment on above: Performed By: #### L IPA, HSTROPN, TSH, CMP #### [facility] [address] [place] [address] Dr. Juan Zamarripa Globulin (S) [Mass/Vol] 3.9 g/dL Normal [facility] Comment on above: Performed By: #### L IPA, HSTROPN, TSH, CMP #### [facility] [address] [address] [address] Juan Zamarripa Glucose [Mass/Vol] 186 mg/dL Critically high 74-106 [facility] Comment on above: Performed By: #### L IPA, HSTROPN, TSH, CMP #### [facility] [address] [address] [address] Juan Zamarripa Potassium [Moles/Vol] 4.1 mmol/L Normal 3.5-5.1 [facility] Comment on above: Performed By: #### L IPA, HSTROPN, TSH, CMP #### [facility] [address] [place] [address] Dr. Juan Zamarripa Protein [Mass/Vol] 8.0 g/dL Normal 6.4-8.2 [facility] Comment on above: Performed By: #### L IPA, HSTROPN, TSH, CMP #### [facility] [address] [place] [address] Dr. Juan Zamarripa Sodium [Moles/Vol] 142 mmol/L Normal 136-145 [facility] Comment on above: Performed By: #### L IPA, HSTROPN, TSH, CMP #### [facility] [address] [place] [address] Dr. Juan Zamarripa Urea nitrogen [Mass/Vol] 9.0 mg/dL Normal 7.0-18.0 [facility] Comment on above: Performed By: #### L IPA, HSTROPN, TSH, CMP #### [facility] [address] [place] [address] Dr. Juan Zamarripa Urea nitrogen/Creatinine [Mass ratio] 11.7 mg/mg Normal [facility] Comment on above: Performed By: #### L IPA, HSTROPN, TSH, CMP #### [facility] [address] [place] [address] Dr. Juan Zamarripa CULTURE URINEon 06-12-2022 CULTURE URINE Culture Observations : LIGHT GROWTH OF MIXED GENITAL ALDA. NO POTENTIAL PATHOGENS SEEN. Normal [facility] Comment on above: Performed By: #### U RCX #### [facility] [address] [place] [address] Dr. Juan Zamarripa UA RANDOMon 06-12-2022 Glucose Ql (U) 100 mg/dl Abnormal NEGATIVE [facility] Comment on above: Performed By: #### U A #### [facility] [address] [place] [address] Dr. Juan Zamarripa LEUKOCYTES SMALL Abnormal NEGATIVE [facility] Comment on above: Performed By: #### U A #### [facility] [address] [place] [address] Dr. Juan Zamarripa SPEC GRAVITY 1.015 Normal 1.005-<=1. 025 [facility] Comment on above: Performed By: #### U A #### [facility] [address] [place] [address] Dr. Juan Zamarripa UA PROTEIN Negative Normal NEGATIVE/ TRACE [facility] Comment on above: Performed By: #### U A #### [facility] [address] [place] [address] Dr. Juan Zamarripa Urobilinogen Qn (U) 0.2 {Amee'U}/dL Normal 0.2 - 1. 0 [facility] Comment on above: Performed By: #### U A #### [facility] [address] [place] [address] Dr. Juan Zamarripa Urinalysison 06-12-2022 Glucose Ql (U) 100 mg/dl Abnormal NEGATIVE mg/dl [facility] Other Urinalysis see note [facility] Other Urinalysis 1.015 1.005-<=1. 025 [facility] Other Urinalysis Negative NEGATIVE/ TRACE mg/dl [facility] Other Urinalysis 0.2 EU/dl 0.2 - 1.0 EU/dl [facility] Other Urinalysis SMALL Abnormal NEGATIVE [employer] Other Bilirubin Ql (U) Negative Normal NEGATIVE [employer] Other Comment on above: Performed By: #### U A #### [facility] [address] [place] [address] Dr. Juan Zamarripa Clarity (U) CLEAR Normal CLEAR [facility] Other Comment on above: Performed By: #### U A #### [facility] [address] [place] [address] Dr. Juan Zamarripa Color (U) LT. YELLOW Normal YELLOW [facility] Other Comment on above: Performed By: #### U A #### [facility] [address] [place] [address] Dr. Juan Zamarripa Hemoglobin Ql (U) Negative Normal NEGATIVE [employer] Other Comment on above: Performed By: #### U A #### [facility] [address] [place] [address] Dr. Juan Zamarripa Ketones Ql (U) Negative Normal NEGATIVE [employer] Other Comment on above: Performed By: #### U A #### [facility] [address] [place] [address] Dr. Juan Zamarripa Nitrite Ql (U) Negative Normal NEGATIVE [employer] Other Comment on above: Performed By: #### U A #### [facility] [address] [place] [address] Dr. Juan Zamarripa pH (U) 6.0 [pH] Normal 5-9 [employer] Other Comment on above: Performed By: #### U A #### [facility] [address] [place] [address] Dr. Juan Zamarripa CULTURE URINEon 04-25-2022 CULTURE [...] F Nitrofurantoin <=16 S F Normal [facility] Comment on above: Performed By: #### A 1C #### [facility] [address] [place] [address] Dr. Juan Zamarripa TL by IFAon 04-24-2022 Antinuclear Antibodies, IFA Positive Abnormal [facility] Comment on above: Result Comment: Nega tive <1:80 Borderline 1:80 Positive >1:80 Performed By: #### L IPA, HSTROPN, TSH, CMP #### [facility] [address] [place] [address] Dr. Juan Zamarripa Centriole Pattern Normal [facility] Comment on above: Performed By: #### L IPA, HSTROPN, TSH, CMP #### [facility] [address] [place], [place] [id number] Dr. Juan Zamarripa Centromere Pattern Normal [facility] Comment on above: Performed By: #### L IPA, HSTROPN, TSH, CMP #### [facility] [address] [place] [address] Dr. Juan Zamarripa Homogeneous Pattern 1:160 Critically high [facility] Comment on above: Result Comment: ICAP nomenclature: [id number] Performed By: #### L IPA, HSTROPN, TSH, CMP #### [facility] [address] [place], [place] [address] Dr. Juan Zamarripa Midbody Pattern Normal [facility] Comment on above: Performed By: #### L IPA, HSTROPN, TSH, CMP #### [facility] [address] [place], [place] [address] Dr. Juan Zamarripa Note: Comment Normal [facility] Comment on above: Result Comment: For [...] titers Nucleosomes, Histones Drug-induced SLE Speckled Sm, ANESTHESIA ASSOCIATE, SCL-70, SLE,MCTD,PSS (diffuse form), SS-A/SS-B Sjogrens Nucleolar SCL-70, PM-1/SCL High titers Scleroderma, PM/DM Centromere Centromere PSS (limited form) w/Crest syndrome variable Nuclear Dot [id number] Primary Biliary Cirrhosis Nuclear GP210, Primary Biliary Cirrhosis Membrane trinity A,B,C Performed By: #### L IPA, HSTROPN, TSH, CMP #### [facility] [address] [place] [address] Dr. Juan Zamarripa Nuclear Dot Pattern Normal [facility] Comment on above: Performed By: #### L IPA, HSTROPN, TSH, CMP #### [facility] [address] [place] [address] Dr. Juan Zamarripa Nuclear Membrane Pattern Normal [facility] Comment on above: Performed By: #### L IPA, HSTROPN, TSH, CMP #### [facility] [address] [place] [address] Dr. Juan Zamarripa Nucleolar Pattern Normal [facility] Comment on above: Performed By: #### L IPA, HSTROPN, TSH, CMP #### [facility] [address] [place] [address] Dr. Juan Zamarripa PCNA Pattern Normal [facility] Comment on above: Performed By: #### L IPA, HSTROPN, TSH, CMP #### [facility] [address] [place] [address] Dr. Juan Zamarripa Speckled Pattern 1:160 Critically high [facility] Comment on above: Result Comment: ICAP nomenclature: [id number],4,5,29 Performed By: #### L IPA, HSTROPN, TSH, CMP #### [facility] [address] [place] [address] Dr. Juan Zamarripa Spindle Apparatus Pattern Normal [facility] Comment on above: Performed By: #### L IPA, HSTROPN, TSH, CMP #### [facility] [address] [place] [address] Dr. Juan Zamarripa RHEUMATOID FACTORon 04-24-19 RA Latex Turbid. <10.0 Normal <14.[address] [facility] Comment on above: Performed By: #### L IPA, HSTROPN, TSH, CMP #### [facility] [address] [place] [address] Dr. Juan Zamarripa CBC AUTO DIFFon 04-23-2022 BASO # 0.0 103/ul Normal 0.0-0.1 [facility] Comment on above: Performed By: #### C BC #### [facility] [address] [place] [address] Dr. Juan Zamarripa Basophils/100 WBC (Bld) 0.4 % Normal 0.2-2.0 [facility] Comment on above: Performed By: #### C BC #### [facility] [address] [place] [address] Dr. Juan Zamarripa EO # 0.1 103/ul Normal 0.0-0.7 [facility] Comment on above: Performed By: #### C BC #### [facility] [address] [place] [address] Dr. Juan Zamarripa Eosinophils/100 WBC (Bld) 1.8 % Normal 0.9-7.0 [facility] Comment on above: Performed By: #### C BC #### [facility] [address] [place] [address] Dr. Juan Zamarripa Erythrocyte distribution width (RBC) [Ratio] 12.6 % Normal 11.0-15.0 [facility] Comment on above: Performed By: #### C BC #### [facility] [address] [place] [address] Dr. Juan Zamarripa Hematocrit (Bld) [Volume fraction] 36.9 % Normal 36.0-48.0 [facility] Comment on above: Performed By: #### C BC #### [facility] [address] [place] [address] Dr. Juan Zamarripa Hemoglobin (Bld) [Mass/Vol] 12.6 g/dL Normal 12.0-16.0 [facility] Comment on above: Performed By: #### C BC #### [facility] [address] [place] [address] Dr. Juan Zamarripa IG # 0.02 10e3/ul Normal 0.00-0.03 [facility] Comment on above: Performed By: #### C BC #### [facility] [address] [place] [address] Dr. Juan Zamarripa IG % 0.3 % Normal 0.0-0.5 [facility] Comment on above: Performed By: #### C BC #### [facility] [address] [place] [address] Dr. Juan Zamarripa LYMPH # 3.3 103/ul Normal 1.2-3.8 [facility] Comment on above: Performed By: #### C BC #### [facility] [address] [place] [address] Dr. Juan Zamarripa Lymphocytes/100 WBC (Bld) 42.9 % Normal 20.5-60.0 [facility] Comment on above: Performed By: #### C BC #### [facility] [address] [place] [address] Dr. Juan Zamarripa MANUAL DIFF REQ NO Normal [facility] Comment on above: Performed By: #### C BC #### [facility] [address] [place] [address] Dr. Juan Zamarripa MCH (RBC) [Entitic mass] 31.2 pg Normal 26.7-34.0 [facility] Comment on above: Performed By: #### C BC #### [facility] [address] [place] [address] Dr. Juan Zamarripa MCHC (RBC) [Mass/Vol] 34.1 g/dL Normal 29.9-35.2 [facility] Comment on above: Performed By: #### C BC #### [facility] [address] [place] [address] Dr. Juan Zamarripa MCV (RBC) [Entitic vol] 91.3 fL Normal 81.0-99.0 [facility] Comment on above: Performed By: #### C BC #### [facility] [address] [place] [address] Dr. Juan Zamarripa MONO # 0.3 103/ul Normal 0.3-0.8 [facility] Comment on above: Performed By: #### C BC #### [facility] [address] [place] [address] Dr. Juan Zamarripa Monocytes/100 WBC (Bld) 4.4 % Normal 1.7-12.0 [facility] Comment on above: Performed By: #### C BC #### [facility] [address] [place] [address] Dr. Juan Zamarripa NEUT # 3.9 103/ul Normal 1.4-6.5 [facility] Comment on above: Performed By: #### C BC #### [facility] [address] [place] [address] Dr. Juan Zamarripa Neutrophils/100 WBC (Bld) 50.2 % Normal 43.0-75.0 [facility] Comment on above: Performed By: #### C BC #### [facility] [address] [place] [address] Dr. Juan Zamarripa Platelet mean volume (Bld) [Entitic vol] 9.0 fL Critically low 9.5-13.5 [facility] Comment on above: Performed By: #### C BC #### [facility] [address] [place] [address] Dr. Juan Zamarripa PLT 158 103/ul Normal 150-450 [facility] Comment on above: Performed By: #### C BC #### [facility] [address] [place] [address] Dr. Juan Zamarripa RBC 4.04 106/ul Critically low 4.20-5.[address] [facility] Comment on above: Performed By: #### C BC #### [facility] [address] [place] [address] Dr. Juan Zamarripa WBC 7.8 103/ul Normal 4.0-11.0 [facility] Comment on above: Performed By: #### C BC #### [facility] [address] [address] [address] Juan Zamarripa CULTURE BLOODon 04-23-2022 Microscopic examination of blood, culture Culture Observations: NO GROWTH AT 5 DAYS. Normal [facility] Comment on above: Performed By: #### A 1C #### [facility] [address] [place] [address] Dr. Juan Zamarripa PROF 14(COMP METB)on 023 Albumin [Mass/Vol] 4.0 g/dL Normal 3.4-5.0 [facility] Comment on above: Performed By: #### L IPA, HSTROPN, TSH, CMP #### [facility] [address] [place] [address] Dr. Juan Zamarripa Albumin/Globulin [Mass ratio] 1.0 {ratio} Normal [facility] Comment on above: Performed By: #### L IPA, HSTROPN, TSH, CMP #### [facility] [address] [place] [address] Dr. Juan Zamarripa ALP [Catalytic activity/Vol] 87 U/L Normal 46-116 [facility] Comment on above: Performed By: #### L IPA, HSTROPN, TSH, CMP #### [facility] [address] [place] [address] Dr. Juan Zamarripa ALT [Catalytic activity/Vol] 78 U/L Critically high 14-59 [facility] Comment on above: Performed By: #### L IPA, HSTROPN, TSH, CMP #### [facility] [address] [address] [address] Juan Zamarripa Anion gap [Moles/Vol] 12.4 mmol/L Normal [facility] Comment on above: Performed By: #### L IPA, HSTROPN, TSH, CMP #### [facility] [address] [address] [address] Juan Zamarripa AST [Catalytic activity/Vol] 39 U/L Critically high 15-37 [facility] Comment on above: Performed By: #### L IPA, HSTROPN, TSH, CMP #### [facility] [address] [address] [address] Juan Zamarripa Bilirubin [Mass/Vol] 0.7 mg/dL Normal 0.2-1.0 [facility] Comment on above: Performed By: #### L IPA, HSTROPN, TSH, CMP #### [facility] [address] [place] [address] Dr. Juan Zamarripa Calcium [Mass/Vol] 9.6 mg/dL Normal 8.5-10.1 [facility] Comment on above: Performed By: #### L IPA, HSTROPN, TSH, CMP #### [facility] [address] [place] [address] Dr. Juan Zamarripa Chloride [Moles/Vol] 101 mmol/L Normal 98-107 [facility] Comment on above: Performed By: #### L IPA, HSTROPN, TSH, CMP #### [facility] [address] [place] [address] Dr. Juan Zamarripa CO2 [Moles/Vol] 29.5 mmol/L Normal 21.0-32.[address] [facility] Comment on above: Performed By: #### L IPA, HSTROPN, TSH, CMP #### [facility] [address] [place] [address] Dr. Juan Zamarripa Creatinine [Mass/Vol] 0.84 mg/dL Normal 0.55-1.02 [facility] Comment on above: Performed By: #### L IPA, HSTROPN, TSH, CMP #### [facility] [address] [address] [address] Juan Zamarripa EGFR-AF SPANISH >60 Normal >=[address] [facility] Comment on above: Performed By: #### L IPA, HSTROPN, TSH, CMP #### [facility] [address] [address] [address] Juan Zamarripa EGFR-NON AF SPANISH >60 Normal >=60 [facility] Comment on above: Performed By: #### L IPA, HSTROPN, TSH, CMP #### [facility] [address] [address] [address] Juan Zamarripa Globulin (S) [Mass/Vol] 4.0 g/dL Normal [facility] Comment on above: Performed By: #### L IPA, HSTROPN, TSH, CMP #### [facility] [address] [address] [address] Juan Zamarripa Glucose [Mass/Vol] 208 mg/dL Critically high 74-106 [facility] Comment on above: Performed By: #### L IPA, HSTROPN, TSH, CMP #### [facility] [address] [address] [address] Juan Zamarripa Potassium [Moles/Vol] 3.9 mmol/L Normal 3.5-5.1 [facility] Comment on above: Performed By: #### L IPA, HSTROPN, TSH, CMP #### [facility] [address] [address] [address] Juan Zamarripa Protein [Mass/Vol] 8.0 g/dL Normal 6.4-8.2 [facility] Comment on above: Performed By: #### L IPA, HSTROPN, TSH, CMP #### [facility] [address] [address] [address] Juan Zamarripa Sodium [Moles/Vol] 139 mmol/L Normal 136-145 [facility] Comment on above: Performed By: #### L IPA, HSTROPN, TSH, CMP #### [facility] [address] [address] [address] Juan Zamarripa Urea nitrogen [Mass/Vol] 15.0 mg/dL Normal 7.0-18.0 [facility] Comment on above: Performed By: #### L IPASUZIETRZEKE, TSH, CMP #### [facility] [address] [place] [address] Dr. Juan Zamarripa Urea nitrogen/Creatinine [Mass ratio] 17.9 mg/mg Normal [facility] Comment on above: Performed By: #### L LAKISHA MCNEIL, TSH, CMP #### [facility] [address] [place] [address] Dr. Juan Zamarripa SED RATE WESTERGRENon 2022 SED RATE 26 mm/hr Normal <=30 [facility] Comment on above: Performed By: #### L LAKISHA MCNEIL, RADHA, CMP #### [facility] [address] [place] [address] Dr. Juan Zamarripa CULTURE BLOODon 04-18-2022 Microscopic [...] C Trimethoprim/Sulfamethox azole <=10 S C Normal [facility] Comment on above: Performed By: #### A 1C #### [facility] [address] [place] [address] Dr. Juan Zamarripa CBC AUTO DIFFon 04-13-2022 BASO # 0.1 103/ul Normal 0.0-0.1 [facility] Comment on above: Performed By: #### C BC #### [facility] [address] [address] [address] Juan Zamarripa Basophils/100 WBC (Bld) 0.6 % Normal 0.2-2.0 [facility] Comment on above: Performed By: #### C BC #### [facility] [address] [address] [address] Juan Zamarripa EO # 0.2 103/ul Normal 0.0-0.7 [facility] Comment on above: Performed By: #### C BC #### [facility] [address] [place] [address] Dr. Juan Zamarripa Eosinophils/100 WBC (Bld) 1.6 % Normal 0.9-7.0 [facility] Comment on above: Performed By: #### C BC #### [facility] [address] [place] [address] Dr. Juan Zamarripa Erythrocyte distribution width (RBC) [Ratio] 12.6 % Normal 11.0-15.0 [facility] Comment on above: Performed By: #### C BC #### [facility] [address] [place] [address] Dr. Juan Zamarripa Hematocrit (Bld) [Volume fraction] 36.1 % Normal 36.0-48.0 [facility] Comment on above: Performed By: #### C BC #### [facility] [address] [place] [address] Dr. Juan Zamarripa Hemoglobin (Bld) [Mass/Vol] 12.5 g/dL Normal 12.0-16.0 [facility] Comment on above: Performed By: #### C BC #### [facility] [address] [place] [address] Dr. Juan Zamarripa IG # 0.02 10e3/ul Normal 0.00-0.03 [facility] Comment on above: Performed By: #### C BC #### [facility] [address] [place] [address] Dr. Juan Zamarripa IG % 0.2 % Normal 0.0-0.5 [facility] Comment on above: Performed By: #### C BC #### [facility] [address] [address] [address] Juan Zamarripa LYMPH # 4.8 103/ul Critically high 1.2-3.[address] [facility] Comment on above: Performed By: #### C BC #### [facility] [address] [address] [address] Juan Zamarripa Lymphocytes/100 WBC (Bld) 49.6 % Normal 20.5-60.0 [facility] Comment on above: Performed By: #### C BC #### [facility] [address] [place] [address] Dr. Juan Zamarripa MANUAL DIFF REQ NO Normal [facility] Comment on above: Performed By: #### C BC #### [facility] [address] [place] [address] Dr. Juan Zamarripa MCH (RBC) [Entitic mass] 31.3 pg Normal 26.7-34.0 [facility] Comment on above: Performed By: #### C BC #### [facility] [address] [place] [address] Dr. Juan Zamarripa MCHC (RBC) [Mass/Vol] 34.6 g/dL Normal 29.9-35.2 [facility] Comment on above: Performed By: #### C BC #### [facility] [address] [place] [address] Dr. Juan Zamarripa MCV (RBC) [Entitic vol] 90.3 fL Normal 81.0-99.0 [facility] Comment on above: Performed By: #### C BC #### [facility] [address] [place] [address] Dr. Juan Zamarripa MONO # 0.5 103/ul Normal 0.3-0.8 [facility] Comment on above: Performed By: #### C BC #### [facility] [address] [place] [address] Dr. Juan Zamarripa Monocytes/100 WBC (Bld) 4.8 % Normal 1.7-12.0 [facility] Comment on above: Performed By: #### C BC #### [facility] [address] [address] [address] Juan Zamarirpa NEUT # 4.2 103/ul Normal 1.4-6.5 [facility] Comment on above: Performed By: #### C BC #### [facility] [address] [place] [address] Dr. Juan Zamarripa Neutrophils/100 WBC (Bld) 43.2 % Normal 43.0-75.0 [facility] Comment on above: Performed By: #### C BC #### [facility] [address] [place] [address] Dr. Juan Zamarripa Platelet mean volume (Bld) [Entitic vol] 9.5 fL Normal 9.5-13.5 [facility] Comment on above: Performed By: #### C BC #### [facility] [address] [place] [address] Dr. Juan Zamarripa PLT 149 103/ul Critically low 150-450 [facility] Comment on above: Performed By: #### C BC #### [facility] [address] [place] [address] Dr. Juan Zamarripa RBC 4.00 106/ul Critically low 4.20-5.[address] [facility] Comment on above: Performed By: #### C BC #### [facility] [address] [place] [address] Dr. Juan Zamarripa WBC 9.6 103/ul Normal 4.0-11.0 [facility] Comment on above: Performed By: #### C BC #### [facility] [address] [place] [address] Dr. Juan Zamarripa PROF CHEM 8 (BAS METB)on Anion gap [Moles/Vol] 11.4 mmol/L Normal [facility] Comment on above: Performed By: #### L IPA, HSTROPN, TSH, CMP #### [facility] [address] [place] [address] Dr. Juan Zamarripa Calcium [Mass/Vol] 8.7 mg/dL Normal 8.5-10.1 [facility] Comment on above: Performed By: #### L IPA, HSTROPN, TSH, CMP #### [facility] [address] [address] [address] Juan Zamarripa Chloride [Moles/Vol] 102 mmol/L Normal 98-107 [facility] Comment on above: Performed By: #### L IPA, HSTROPN, TSH, CMP #### [facility] [address] [place] [address] Dr. Juan Zamarripa CO2 [Moles/Vol] 28.5 mmol/L Normal 21.0-32.[address] [facility] Comment on above: Performed By: #### L IPA, HSTROPN, TSH, CMP #### [facility] [address] [address] [address] Juan Zamarripa Creatinine [Mass/Vol] 0.88 mg/dL Normal 0.55-1.02 [facility] Comment on above: Performed By: #### L IPA, HSTROPN, TSH, CMP #### [facility] [address] [place] [address] Dr. Juan Zamarripa EGFR-AF SPANISH >60 Normal >=[address] [facility] Comment on above: Performed By: #### L IPA, HSTROPN, TSH, CMP #### [facility] [address] [place] [address] Dr. Juan Zamarripa EGFR-NON AF SPANISH >60 Normal >=60 [facility] Comment on above: Performed By: #### L IPA, HSTROPN, TSH, CMP #### [facility] [address] [address] [address] Juan Zamarripa Glucose [Mass/Vol] 129 mg/dL Critically high 74-106 [facility] Comment on above: Performed By: #### L IPA, HSTROPN, TSH, CMP #### [facility] [address] [place] [address] Dr. Juan Zamarripa Potassium [Moles/Vol] 3.9 mmol/L Normal 3.5-5.1 [facility] Comment on above: Performed By: #### L IPA, HSTROPN, TSH, CMP #### [facility] [address] [place] [address] Dr. Juan Zamarripa Sodium [Moles/Vol] 138 mmol/L Normal 136-145 [facility] Comment on above: Performed By: #### L IPA, HSTROPN, TSH, CMP #### [facility] [address] [place] [address] Dr. Juan Zamarripa Urea nitrogen [Mass/Vol] 12.0 mg/dL Normal 7.0-18.0 [facility] Comment on above: Performed By: #### L IPA, HSTROPN, TSH, CMP #### [facility] [address] [place] [address] Dr. Juan Zamarripa Urea nitrogen/Creatinine [Mass ratio] 13.6 mg/mg Normal [facility] Comment on above: Performed By: #### L IPA, HSTROPN, TSH, CMP #### [facility] [address] [place] [address] Dr. Juan Zamarripa ACETONE SERUMon 04-12-2022 ACETONE Negative Normal NEGATIVE [facility] Comment on above: Performed By: #### C BC #### [facility] [address] [place] [address] Dr. Juan Zamarripa BLOOD CULTURE ID PANELon A. baumannii Not detected Normal NOT DETECTED [facility] Comment on above: Performed By: #### L IPA, HSTROPN, TSH, CMP #### [facility] [address] [place] [address] Dr. Jaun Zamarripa Bacteriodes fragilis Not detected Normal NOT DETECTED [facility] Comment on above: Performed By: #### L IPA, HSTROPN, TSH, CMP #### [facility] [address] [place] [address] Dr. Juan Zamarripa BCID CONTROLS PASSED Normal [facility] Comment on above: Performed By: #### L IPA, HSTROPN, TSH, CMP #### [facility] [address] [place] [address] Dr. Juan Zamarripa BCIDBTHD BLOOD CULTURE BOTTLE INFORMATION Normal [facility] Comment on above: Performed By: #### L IPA, HSTROPN, TSH, CMP #### [facility] [address] [address] [address] Juan Zamarripa BCIDHD1 ANTIMICROBIAL RESIST ANCE GENES Normal [facility] Comment on above: Performed By: #### L IPA, HSTROPN, TSH, CMP #### [facility] [address] [address] [address] Juan Zamarripa BCIDHD2 SEE BELOW Normal [facility] Comment on above: Result Comment: Note : Antimicrobial resitance can occur via multiple mechanisms. A Not Detected result for the [employer] antomicrobial resistance gene assays does not indicate antimicrobial susceptibility. Subculturing is required for species identification and susceptibility testing of isolates. Performed By: #### L IPA, HSTROPN, TSH, CMP #### [facility] [address] [address] [address] Juan Zamarripa BCIDHD3 Positive Normal [facility] Comment on above: Performed By: #### L IPA, HSTROPN, TSH, CMP #### [facility] [address] [address] [address] Juan Zamarripa BCIDHD4 Negative Normal [facility] Comment on above: Performed By: #### L IPA, HSTROPN, TSH, CMP #### [facility] [address] [address] [address] Juan Zamarripa BCIDHD5 YEAST Normal [facility] Comment on above: Performed By: #### L IPA, HSTROPN, TSH, CMP #### [facility] [address] [address] [address] Juan Zamarripa Bottle Set: Set 1 Normal [facility] Comment on above: Performed By: #### L IPA, HSTROPN, TSH, CMP #### [facility] [address] [address] [address] Juan Zamarripa Bottle: Anaerobic Normal [facility] Comment on above: Performed By: #### L IPA, HSTROPN, TSH, CMP #### [facility] [address] [address] [address] Juan Zamarripa C. neoformans/gattii Not detected Normal NOT DETECTED [facility] Comment on above: Performed By: #### L IPA, HSTROPN, TSH, CMP #### [facility] [address] [place] [address] Dr. Juan Zamarripa Mary Lou albicans Not detected Normal NOT DETECTED [facility] Comment on above: Performed By: #### L IPA, HSTROPN, TSH, CMP #### [facility] [address] [place] [address] Dr. Juan Zamarripa Mary Lou auris Not detected Normal NOT DETECTED [facility] Comment on above: Performed By: #### L IPA, HSTROPN, TSH, CMP #### [facility] [address] [place] [address] Dr. Juan Zamarripa Mary Lou glabrata Not detected Normal NOT DETECTED [facility] Comment on above: Performed By: #### L IPA, HSTROPN, TSH, CMP #### [facility] [address] [place] [address] Dr. Juan Zamarripa Mary Lou Krusei Not detected Normal NOT DETECTED [facility] Comment on above: Performed By: #### L IPA, HSTROPN, TSH, CMP #### [facility] [address] [place] [address] Dr. Juan Zamarripa Mary Lou Parapsilosis Not detected Normal NOT DETECTED [facility] Comment on above: Performed By: #### L IPA, HSTROPN, TSH, CMP #### [facility] [address] [place] [address] Dr. Juan Zamarripa Mary Lou Tropicalis Not detected Normal NOT DETECTED [facility] Comment on above: Performed By: #### L IPA, HSTROPN, TSH, CMP #### [facility] [address] [place] [address] Dr. Juan Zamarripa CTX-M Resistant Gene Not Applicable Normal NOT DETECTED [facility] Comment on above: Performed By: #### L IPA, HSTROPN, TSH, CMP #### [facility] [address] [place] [address] Dr. Juan Zamarripa E. Cloacae complex Not detected Normal NOT DETECTED [facility] Comment on above: Performed By: #### L IPA, HSTROPN, TSH, CMP #### [facility] [address] [place] [address] Dr. Juan Zamarripa E. faecalis Not detected Normal NOT DETECTED [facility] Comment on above: Performed By: #### L IPA, HSTROPN, TSH, CMP #### [facility] [address] [place] [address] Dr. Juan Zamarripa E. faecium Not detected Normal NOT DETECTED [facility] Comment on above: Performed By: #### L IPA, HSTROPN, TSH, CMP #### [facility] [address] [place] [address] Dr. Juan Zamarripa Enterobacteriaceae Not detected Normal NOT DETECTED [facility] Comment on above: Performed By: #### L IPA, HSTROPN, TSH, CMP #### [facility] [address] [place] [address] Dr. Juan Zamarripa Escherichia coli Not detected Normal NOT DETECTED [facility] Comment on above: Performed By: #### L IPA, HSTROPN, TSH, CMP #### [facility] [address] [place] [address] Dr. Juan Zamarripa H. influenzae Not detected Normal NOT DETECTED [facility] Comment on above: Performed By: #### L IPA, HSTROPN, TSH, CMP #### [facility] [address] [place] [address] Dr. Juan Zamarripa IMP Resistant Gene Not Applicable Normal NOT DETECTED [facility] Comment on above: Performed By: #### L IPA, HSTROPN, TSH, CMP #### [facility] [address] [place] [address] Dr. Juan Zamarripa K. oxytoca Not detected Normal NOT DETECTED [facility] Comment on above: Performed By: #### L IPA, HSTROPN, TSH, CMP #### [facility] [address] [place] [address] Dr. Juan Zamarripa K. pneumoniae Not detected Normal NOT DETECTED [facility] Comment on above: Performed By: #### L IPA, HSTROPN, TSH, CMP #### [facility] [address] [place] [address] Dr. Juan Zamarripa Klebsiella aerogenes Not detected Normal NOT DETECTED [facility] Comment on above: Performed By: #### L IPA, HSTROPN, TSH, CMP #### [facility] [address] [place] [address] Dr. Juan Zamarripa KPC Resistant Gene Not Applicable Normal NOT DETECTED [facility] Comment on above: Performed By: #### L IPA, HSTROPN, TSH, CMP #### [facility] [address] [place] [address] Dr. Juan Zamarripa List. monocytogenes Not detected Normal NOT DETECTED [facility] Comment on above: Performed By: #### L IPA, HSTROPN, TSH, CMP #### [facility] [address] [place] [address] Dr. Juan Zamarripa Mcr-1 Resistant Gene Not Applicable Normal NOT DETECTED [facility] Comment on above: Performed By: #### L IPA, HSTROPN, TSH, CMP #### [facility] [address] [place] [address] Dr. Juan Zamarripa mecA/C Not Applicable Normal NOT DETECTED [facility] Comment on above: Performed By: #### L IPA, HSTROPN, TSH, CMP #### [facility] [address] [place] [address] Dr. Juan Zamarripa mecA/C MREJ Not Applicable Normal NOT DETECTED [facility] Comment on above: Performed By: #### L IPA, HSTROPN, TSH, CMP #### [facility] [address] [place] [address] Dr. Juan Zamarripa N. meningitidis Not detected Normal NOT DETECTED [facility] Comment on above: Performed By: #### L IPA, HSTROPN, TSH, CMP #### [facility] [address] [place] [address] Dr. Juan Zamarripa NDM Resistant Gene Not Applicable Normal NOT DETECTED [facility] Comment on above: Performed By: #### L IPA, HSTROPN, TSH, CMP #### [facility] [address] [place] [address] Dr. Juan Zamarripa Oxa-48-like Not Applicable Normal NOT DETECTED [facility] Comment on above: Performed By: #### L IPA, HSTROPN, TSH, CMP #### [facility] [address] [address] [address] Juan Zamarripa Proteus Not detected Normal NOT DETECTED [facility] Comment on above: Performed By: #### L IPA, HSTROPN, TSH, CMP #### [facility] [address] [address] [address] Juan Zamarripa Pseud. aeruginosa Not detected Normal NOT DETECTED [facility] Comment on above: Performed By: #### L IPA, HSTROPN, TSH, CMP #### [facility] [address] [address] [address] Juan Zamarripa S. maltophilia Not detected Normal NOT DETECTED [facility] Comment on above: Performed By: #### L IPA, HSTROPN, TSH, CMP #### [facility] [address] [place] [address] Dr. Juan Zamarripa Salmonella Not detected Normal NOT DETECTED [facility] Comment on above: Performed By: #### L IPA, HSTROPN, TSH, CMP #### [facility] [address] [place] [address] Dr. Juan Zamarripa Seratia marcescens Not detected Normal NOT DETECTED [facility] Comment on above: Performed By: #### L IPA, HSTROPN, TSH, CMP #### [facility] [address] [address] [address] Juan Zamarripa Site: Rt Ac Normal [facility] Comment on above: Performed By: #### L IPA, HSTROPN, TSH, CMP #### [facility] [address] [address] [address] Juan Zamarripa Staph. aureus Not detected Normal NOT DETECTED [facility] Comment on above: Performed By: #### L IPA, HSTROPN, TSH, CMP #### [facility] [address] [address] [address] Juan Zamarripa Staph. epidermidis Not detected Normal NOT DETECTED [facility] Comment on above: Performed By: #### L IPA, HSTROPN, TSH, CMP #### [facility] [address] [address] [address] Juan Zamarripa Staph. lugdunensis Not detected Normal NOT DETECTED [facility] Comment on above: Performed By: #### L IPA, HSTROPN, TSH, CMP #### [facility] [address] [address] [address] Juan Zamarripa Staphylococcus Detected Critically abnormal NOT DETECTED [facility] Comment on above: Performed By: #### L IPA, HSTROPN, TSH, CMP #### [facility] [address] [address] [address] Juan Zamarripa Strep. agalactiae Not detected Normal NOT DETECTED [facility] Comment on above: Performed By: #### L IPA, HSTROPN, TSH, CMP #### [facility] [address] [place] [address] Dr. Juan Zamarripa Strep. pneumoniae Not detected Normal NOT DETECTED [facility] Comment on above: Performed By: #### L IPA, HSTROPN, TSH, CMP #### [facility] [address] [place] [address] Dr. Juan Zamarripa Strep. pyogenes Not detected Normal NOT DETECTED [facility] Comment on above: Performed By: #### L IPA, HSTROPN, TSH, CMP #### [facility] [address] [place] [address] Dr. Juan Zamarripa Streptococcus Not detected Normal NOT DETECTED [facility] Comment on above: Performed By: #### L IPA, HSTROPN, TSH, CMP #### [facility] [address] [address] [address] Juan Zamarripa Aleyda/B Resist. Gene Not Applicable Normal NOT DETECTED [facility] Comment on above: Performed By: #### L IPA, HSTROPN, TSH, CMP #### [facility] [address] [place] [address] Dr. Juan Zamarripa VIM Resistant Gene Not Applicable Normal NOT DETECTED [facility] Comment on above: Performed By: #### L IPA, HSTROPN, TSH, CMP #### [facility] [address] [place] [address] Dr. Juan Zamarripa CBC AUTO DIFFon 04-12-2022 BASO # 0.1 103/ul Normal 0.0-0.1 [facility] Comment on above: Performed By: #### L IPA, HSTROPN, TSH, CMP #### [facility] [address] [place] [address] Dr. Juan Zamarripa Basophils/100 WBC (Bld) 0.6 % Normal 0.2-2.0 [facility] Comment on above: Performed By: #### L IPA, HSTROPN, TSH, CMP #### [facility] [address] [place] [address] Dr. Juan Zamarripa EO # 0.1 103/ul Normal 0.0-0.7 [facility] Comment on above: Performed By: #### L IPA, HSTROPN, TSH, CMP #### [facility] [address] [place] [address] Dr. Juan Zamarripa Eosinophils/100 WBC (Bld) 0.9 % Normal 0.9-7.0 [facility] Comment on above: Performed By: #### L IPA, HSTROPN, TSH, CMP #### [facility] [address] [place] [address] Dr. Juan Zamarripa Erythrocyte distribution width (RBC) [Ratio] 12.8 % Normal 11.0-15.0 [facility] Comment on above: Performed By: #### L IPA, HSTROPN, TSH, CMP #### [facility] [address] [place] [address] Dr. Juan Zamarripa Hematocrit (Bld) [Volume fraction] 42.9 % Normal 36.0-48.0 [facility] Comment on above: Performed By: #### L IPA, HSTROPN, TSH, CMP #### [facility] [address] [place] [address] Dr. Juan Zamarripa Hemoglobin (Bld) [Mass/Vol] 15.1 g/dL Normal 12.0-16.0 [facility] Comment on above: Performed By: #### L IPA, HSTROPN, TSH, CMP #### [facility] [address] [address] [address] Juan Zamarripa IG # 0.04 10e3/ul Critically high 0.00-0.03 [facility] Comment on above: Performed By: #### L IPA, HSTROPN, TSH, CMP #### [facility] [address] [place] [address] Dr. Juan Zamarripa IG % 0.3 % Normal 0.0-0.5 [facility] Comment on above: Performed By: #### L IPA, HSTROPN, TSH, CMP #### [facility] [address] [place] [address] Dr. Juan Zamarripa LYMPH # 5.0 103/ul Critically high 1.2-3.8 [facility] Comment on above: Performed By: #### L IPA, HSTROPN, TSH, CMP #### [facility] [address] [place] [address] Dr. Juan Zamarripa Lymphocytes/100 WBC (Bld) 43.6 % Normal 20.5-60.0 [facility] Comment on above: Performed By: #### L IPA, HSTROPN, TSH, CMP #### [facility] [address] [place] [address] Dr. Juan Zamarripa MANUAL DIFF REQ NO Normal [facility] Comment on above: Performed By: #### L IPA, HSTROPN, TSH, CMP #### [facility] [address] [place] [address] Dr. Juan Zamarripa MCH (RBC) [Entitic mass] 31.3 pg Normal 26.7-34.0 [facility] Comment on above: Performed By: #### L IPA, HSTROPN, TSH, CMP #### [facility] [address] [place] [address] Dr. Juan Zamarripa MCHC (RBC) [Mass/Vol] 35.2 g/dL Normal 29.9-35.2 [facility] Comment on above: Performed By: #### L IPA, HSTROPN, TSH, CMP #### [facility] [address] [place] [address] Dr. Juan Zamarripa MCV (RBC) [Entitic vol] 88.8 fL Normal 81.0-99.0 [facility] Comment on above: Performed By: #### L IPA, HSTROPN, TSH, CMP #### [facility] [address] [place] [address] Dr. Juan Zamarripa MONO # 0.6 103/ul Normal 0.3-0.8 [facility] Comment on above: Performed By: #### L IPA, HSTROPN, TSH, CMP #### [facility] [address] [place] [address] Dr. Juan Zamarripa Monocytes/100 WBC (Bld) 5.2 % Normal 1.7-12.0 [facility] Comment on above: Performed By: #### L IPA, HSTROPN, TSH, CMP #### [facility] [address] [place] [address] Dr. Juan Zamarripa NEUT # 5.7 103/ul Normal 1.4-6.5 [facility] Comment on above: Performed By: #### L IPA, HSTROPN, TSH, CMP #### [facility] [address] [place] [address] Dr. Juan Zamarripa Neutrophils/100 WBC (Bld) 49.4 % Normal 43.0-75.0 [facility] Comment on above: Performed By: #### L IPA, HSTROPN, TSH, CMP #### [facility] [address] [place] [address] Dr. Juan Zamarripa Platelet mean volume (Bld) [Entitic vol] 9.6 fL Normal 9.5-13.5 [facility] Comment on above: Performed By: #### L IPA, HSTROPN, TSH, CMP #### [facility] [address] [place] [address] Dr. Juan Zamarripa PLT 210 103/ul Normal 150-450 [facility] Comment on above: Performed By: #### L IPA, HSTROPN, TSH, CMP #### [facility] [address] [place], [place] [address] Dr. Juan Zamarripa RBC 4.83 106/ul Normal 4.20-5.40 [facility] Comment on above: Performed By: #### L IPA, HSTROPN, TSH, CMP #### [facility] [address] [place], [place] [address] Dr. Juan Zamarripa WBC 11.5 103/ul Critically high 4.0-11.0 [facility] Comment on above: Performed By: #### L IPA, HSTROPN, TSH, CMP #### [facility] [address] [place], [place] [address] ABD/PELV W CONon [...] SIBLEY Date: 2022-04-12 16:53 Normal [facility] CULTURE BLOODon 04-12-2022 Microscopic examination of blood, culture Culture Observations: NO GROWTH AT 5 DAYS. Isolate 1 [id number] Normal [facility] Comment on above: Performed By: #### A 1C #### [facility] [address] [address] [address] Juan Zamarripa CULTURE URINEon 04-12-2022 CULTURE URINE Culture Observations : MODERATE GROWTH OF MIXED GENITAL ALDA. NO POTENTIAL PATHOGENS SEEN. Normal [facility] Comment on above: Performed By: #### U RCX #### [facility] [address] [place] [address] Dr. Juan Zamarripa Covid-19 PCR ([facility])on SARS-CoV-2 (COVID-19) RNA SUNNY+probe Ql (Unsp spec) Not detected Normal NOT DETECTED [facility] Comment on above: Result Comment: When [...] for this test is supported by the Director Of Customer Acquisition of Health and Human Service's declaration that [...] L IPA, HSTROPN, TSH, CMP #### [facility] [address] [place] [address] Dr. Juan Zamarripa ER URINE PROFILEon 3 Bilirubin Ql (U) Negative Normal NEGATIVE [facility] Comment on above: Performed By: #### C BC #### [facility] [address] [place] [address] Dr. Juan Zamarripa Clarity (U) SL CLOUDY Abnormal CLEAR [facility] Comment on above: Performed By: #### C BC #### [facility] [address] [place] [address] Dr. Jaun Zamarripa Color (U) LT. YELLOW Normal YELLOW [facility] Comment on above: Performed By: #### C BC #### [facility] [address] [place] [address] Dr. Juan Zamarripa ERUAHD A micrscopic examina tion will be performed if indicated. Normal [facility] Comment on above: Performed By: #### C BC #### [facility] [address] [place] [address] Dr. Juan Zamarripa Glucose Ql (U) 250 mg/dl Abnormal NEGATIVE [facility] Comment on above: Performed By: #### C BC #### [facility] [address] [place] [address] Dr. Juan Zamarripa Hemoglobin Ql (U) Negative Normal NEGATIVE [facility] Comment on above: Performed By: #### C BC #### [facility] [address] [place] [address] Dr. Juan Zamarripa Ketones Ql (U) TRACE Abnormal NEGATIVE [facility] Comment on above: Performed By: #### C BC #### [facility] [address] [place] [address] Dr. Juan Zamarripa LEUKOCYTES SMALL Abnormal NEGATIVE [facility] Comment on above: Performed By: #### C BC #### [facility] [address] [place] [address] Dr. Juan Zamarripa Nitrite Ql (U) Negative Normal NEGATIVE [facility] Comment on above: Performed By: #### C BC #### [facility] [address] [place] [address] Dr. Juan Zamarripa pH (U) 5.5 [pH] Normal 5-9 [facility] Comment on above: Performed By: #### C BC #### [facility] [address] [place] [address] Dr. Juan Zamarripa SPEC GRAVITY 1.030 Abnormal 1.005-<=1. 025 [facility] Comment on above: Performed By: #### C BC #### [facility] [address] [place] [address] Dr. Juan Zamarripa UA PROTEIN Negative Normal NEGATIVE/ TRACE [facility] Comment on above: Performed By: #### C BC #### [facility] [address] [place] [address] Dr. Juan Zamarripa UR MICRO IND INDICATED Normal [facility] Comment on above: Performed By: #### C BC #### [facility] [address] [place] [address] Dr. Juan Zamarripa Urobilinogen Qn (U) 0.2 {Amee'U}/dL Normal 0.2 - 1. 0 [facility] Comment on above: Performed By: #### C BC #### [facility] [address] [place] [address] Dr. Juan Zamarripa INFLUENZA A AND B [facility]on 04-12 [facility] BELOW Normal [facility] Comment on above: Result Comment: Nega tive for Flu A protein angiten. Infection due to Flu A cannot be ruled out. Flu A angiten in the sample may be below the detection limit of the test. Performed By: #### L IPA, HSTROPN, TSH, CMP #### [facility] [address] [place] [address] Dr. Juan Zamarripa INFLUBNEGH SEE BELOW Normal [facility] Comment on above: Result Comment: Nega tive for Flu B protein antigen. Infection due to Flu B cannot be ruled out. Flu B antigen in the sample may be below the detection limit of the test. Performed By: #### L IPA, HSTROPN, TSH, CMP #### [facility] [address] [place] [address] Dr. Juan Zamarripa INFLUENZA A AG Negative Normal NEGATIVE SEE COMMENT [facility] Comment on above: Performed By: #### L IPA, HSTROPN, TSH, CMP #### [facility] [address] [place] [address] Dr. Juan Zamarripa INFLUENZA B AG Negative Normal NEGATIVE SEE COMMENT [facility] Comment on above: Performed By: #### L IPA HSTROPN, TSH, CMP #### [facility] [address] [place] [address] Dr. Juan Zamarripa LACTATE/LACTIC ACIDon 2022 Lactate [Moles/Vol] 1.8 mmol/L Normal 0.4-1.9 [facility] Comment on above: Performed By: #### C BC #### [facility] [address] [place] [address] Dr. Juan Zamarripa Lactate [Moles/Vol] 3.1 mmol/L Critically high 0.4-1.9 [facility] Comment on above: Performed By: #### L EWA HSTROPN, TSH, CMP #### [facility] [address] [place] [address] Dr. Juan Zamarripa LIPASEon 04-12-2022 Lipase [Catalytic activity/Vol] 183.0 U/L Normal 73.0-393.0 [facility] Comment on above: Performed By: #### A 1C #### [facility] [address] [place] [address] Dr. Juan Zamarripa PH VENOUS BLOODon 04-12-2022 PCO2 VENOUS 42.9 mmHg Normal 40.0-52.0 [facility] Comment on above: Performed By: #### C BC #### [facility] [address] [place] [address] Dr. Juan Zamarripa pH VENOUS 7.383 Normal 7.330-7.43 0 [facility] Comment on above: Performed By: #### C BC #### [facility] [address] [place] [address] Dr. Juan Zamarripa PROF 14(COMP METB)on 023 Albumin [Mass/Vol] 4.3 g/dL Normal 3.4-5.0 [facility] Comment on above: Performed By: #### A 1C #### [facility] [address] [place], [place] [id number] Dr. Juan Zamarripa Albumin/Globulin [Mass ratio] 1.0 {ratio} Normal [facility] Comment on above: Performed By: #### A 1C #### [facility] [address] [place] [address] Dr. Juan Zamarripa ALP [Catalytic activity/Vol] 96 U/L Normal 46-116 [facility] Comment on above: Performed By: #### A 1C #### [facility] [address] [place] [address] Dr. Juan Zamarripa ALT [Catalytic activity/Vol] 80 U/L Critically high 14-59 [facility] Comment on above: Performed By: #### A 1C #### [facility] [address] [place] [address] Dr. Juan Zamarripa Anion gap [Moles/Vol] 14.7 mmol/L Normal [facility] Comment on above: Performed By: #### A 1C #### [facility] [address] [place] [address] Dr. Juan Zamarripa AST [Catalytic activity/Vol] 45 U/L Critically high 15-37 [facility] Comment on above: Performed By: #### A 1C #### [facility] [address] [place] [address] Dr. Juan Zamarripa Bilirubin [Mass/Vol] 0.8 mg/dL Normal 0.2-1.0 [facility] Comment on above: Performed By: #### A 1C #### [facility] [address] [place] [address] Dr. Juan Zamarripa Calcium [Mass/Vol] 10.0 mg/dL Normal 8.5-10.1 [facility] Comment on above: Performed By: #### A 1C #### [facility] [address] [place] [address] Dr. Juan Zamarripa Chloride [Moles/Vol] 99 mmol/L Normal 98-107 [facility] Comment on above: Performed By: #### A 1C #### [facility] [address] [place] [address] Dr. Juan Zamarripa CO2 [Moles/Vol] 26.4 mmol/L Normal 21.0-32.[address] [facility] Comment on above: Performed By: #### A 1C #### [facility] [address] [place] [address] Dr. Juan Zamarripa Creatinine [Mass/Vol] 0.89 mg/dL Normal 0.55-1.02 [facility] Comment on above: Performed By: #### A 1C #### [facility] [address] [place] [address] Dr. Juan Zamarripa EGFR-AF SPANISH >60 Normal >=[address] [facility] Comment on above: Performed By: #### A 1C #### [facility] [address] [address] [address] Juan Zamarripa EGFR-NON AF SPANISH >60 Normal >=60 [facility] Comment on above: Performed By: #### A 1C #### [facility] [address] [place] [address] Dr. Juan Zamarripa Globulin (S) [Mass/Vol] 4.3 g/dL Normal [facility] Comment on above: Performed By: #### A 1C #### [facility] [address] [place] [address] Dr. Juan Zamarripa Glucose [Mass/Vol] 168 mg/dL Critically high 74-106 [facility] Comment on above: Performed By: #### A 1C #### [facility] [address] [place] [address] Dr. Juan Zamarripa Potassium [Moles/Vol] 4.1 mmol/L Normal 3.5-5.1 [facility] Comment on above: Performed By: #### A 1C #### [facility] [address] [place] [address] Dr. Juan Zamarripa Protein [Mass/Vol] 8.6 g/dL Critically high 6.4-8.2 [facility] Comment on above: Performed By: #### A 1C #### [facility] [address] [place] [address] Dr. Juan Zamarripa Sodium [Moles/Vol] 136 mmol/L Normal 136-145 [facility] Comment on above: Performed By: #### A 1C #### [facility] [address] [place] [address] Dr. Juan Zamarripa Urea nitrogen [Mass/Vol] 18.0 mg/dL Normal 7.0-18.0 [facility] Comment on above: Performed By: #### A 1C #### [facility] [address] [place] [address] Dr. Juan Zamarripa Urea nitrogen/Creatinine [Mass ratio] 20.2 mg/mg Normal [facility] Comment on above: Performed By: #### A 1C #### [facility] [address] [place] [address] Dr. Juan Zamarripa TROPONIN, HIGH SENSITIVITYon 04-12-2022 HSTROP 4.9 pg/mL Normal 4.0-51.3 [facility] Comment on above: Result Comment: CUT- OFF POINTS HAVE BEEN ESTABLISHED BASED ON THE FOURTH UNIVERSAL DEFINITIONS OF MYOCARDIAL INFARCTION. THE UPPER REFERENCE LIMIT (URL) OF TROPONIN, DEFINED THE 99TH PERCENTILE OF cTnI DISTRIBUTION IN A REFERENCE POPULATION, HAS BEEN CONFIRMED THE DECISION THRESHOLD FOR ME DIAGNOSIS. Performed By: #### A 1C #### [facility] [address] [place] [address] Dr. Juan Zamarripa TSHon 04-12-2022 TSH 1.593 uIU/mL Normal 0.358-3.74 0 [facility] Comment on above: Performed By: #### C BC #### [facility] [address] [place] [address] Dr. Juan Zamarripa URINE MICROSCOPIC ONLYon BACTERIA SMALL Abnormal NONE SEEN [facility] Comment on above: Performed By: #### C BC #### [facility] [address] [place] [address] Dr. Juan Zamarripa Bacteria identified Cx Nom (U) INDICATED Normal [facility] Comment on above: Performed By: #### C BC #### [facility] [address] [place] [address] Dr. Juan Zamarripa CAST NONE SEEN Normal NONE SEEN [facility] Comment on above: Performed By: #### C BC #### [facility] [address] [place] [address] Dr. Juan Zamarripa Crystals LM Nom (Urine sed) NONE SEEN Normal NONE SEEN [facility] Comment on above: Performed By: #### C BC #### [facility] [address] [place] [address] Dr. Juan Zamarripa Epithelial cells LM Ql (Urine sed) FEW Abnormal NONE SEEN /RARE [facility] Comment on above: Performed By: #### C BC #### [facility] [address] [place] [address] Dr. Juan Zamarripa MUCOUS NONE SEEN Normal NONE SEEN [facility] Comment on above: Performed By: #### C BC #### [facility] [address] [place] [address] Dr. Juan Zamarripa RBC 0-2 Normal 0-2 [facility] Comment on above: Performed By: #### C BC #### [facility] [address] [place] [address] Dr. Juan Zamarripa WBC 2-5 Abnormal NONE SEEN [facility] Comment on above: Performed By: #### C BC #### [facility] [address] [place] [address] Dr. Juan Zamarripa XR CHEST 1 Von [...] DODSON Date: 2022-04-12 15:31 Normal [facility] CBC AUTO DIFFon 11-26-2021 BASO # 0.1 103/ul Normal 0.0-0.1 [facility] Comment on above: Performed By: #### L IPA, HSTROPN, TSH, CMP #### [facility] [address] [place] [address] Dr. Juan Zamarripa Basophils/100 WBC (Bld) 0.5 % Normal 0.2-2.0 [facility] Comment on above: Performed By: #### L IPA, HSTROPN, TSH, CMP #### [facility] [address] [place] [address] Dr. Juan Zamarripa EO # 0.1 103/ul Normal 0.0-0.7 [facility] Comment on above: Performed By: #### L IPA, HSTROPN, TSH, CMP #### [facility] [address] [place] [address] Dr. Juan Zamarripa Eosinophils/100 WBC (Bld) 1.1 % Normal 0.9-7.0 [facility] Comment on above: Performed By: #### L IPA, HSTROPN, TSH, CMP #### [facility] [address] [place] [address] Dr. Juan Zamarripa Erythrocyte distribution width (RBC) [Ratio] 12.5 % Normal 11.0-15.0 [facility] Comment on above: Performed By: #### L IPA, HSTROPN, TSH, CMP #### [facility] [address] [place] [address] Dr. Juan Zamarripa Hematocrit (Bld) [Volume fraction] 39.6 % Normal 36.0-48.0 [facility] Comment on above: Performed By: #### L IPA, HSTROPN, TSH, CMP #### [facility] [address] [place] [address] Dr. Juan Zamarripa Hemoglobin (Bld) [Mass/Vol] 13.7 g/dL Normal 12.0-16.0 [facility] Comment on above: Performed By: #### L IPA, HSTROPN, TSH, CMP #### [facility] [address] [place] [address] Dr. Juan Zamarripa IG # 0.04 10e3/ul Critically high 0.00-0.03 [facility] Comment on above: Performed By: #### L IPA, HSTROPN, TSH, CMP #### [facility] [address] [place] [address] Dr. Juan Zamarripa IG % 0.4 % Normal 0.0-0.5 [facility] Comment on above: Performed By: #### L IPA, HSTROPN, TSH, CMP #### [facility] [address] [place] [address] Dr. Juan Zamarripa LYMPH # 4.2 103/ul Critically high 1.2-3.[address] [facility] Comment on above: Performed By: #### L IPA, HSTROPN, TSH, CMP #### [facility] [address] [place] [address] Dr. Juan Zamarripa Lymphocytes/100 WBC (Bld) 38.8 % Normal 20.5-60.0 [facility] Comment on above: Performed By: #### L IPA, HSTROPN, TSH, CMP #### [facility] [address] [place] [address] Dr. Juan Zamarripa MANUAL DIFF REQ NO Normal [facility] Comment on above: Performed By: #### L IPA, HSTROPN, TSH, CMP #### [facility] [address] [place] [address] Dr. Juan Zamarripa MCH (RBC) [Entitic mass] 32.2 pg Normal 26.7-34.0 [facility] Comment on above: Performed By: #### L IPA, HSTROPN, TSH, CMP #### [facility] [address] [place] [address] Dr. Juan Zamarripa MCHC (RBC) [Mass/Vol] 34.6 g/dL Normal 29.9-35.2 [facility] Comment on above: Performed By: #### L IPA, HSTROPN, TSH, CMP #### [facility] [address] [place] [address] Dr. Juan Zamarripa MCV (RBC) [Entitic vol] 93.0 fL Normal 81.0-99.0 [facility] Comment on above: Performed By: #### L IPA, HSTROPN, TSH, CMP #### [facility] [address] [place] [address] Dr. Juan Zamarripa MONO # 0.4 103/ul Normal 0.3-0.8 [facility] Comment on above: Performed By: #### L IPA, HSTROPN, TSH, CMP #### [facility] [address] [place] [address] Dr. uJan Zamarripa Monocytes/100 WBC (Bld) 3.9 % Normal 1.7-12.0 [facility] Comment on above: Performed By: #### L IPA, HSTROPN, TSH, CMP #### [facility] [address] [place] [address] Dr. Juan Zamarripa NEUT # 6.1 103/ul Normal 1.4-6.5 [facility] Comment on above: Performed By: #### L IPA, HSTROPN, TSH, CMP #### [facility] [address] [place] [address] Dr. Juan Zamarripa Neutrophils/100 WBC (Bld) 55.3 % Normal 43.0-75.0 [facility] Comment on above: Performed By: #### L IPA, HSTROPN, TSH, CMP #### [facility] [address] [place] [address] Dr. Juan Zamarripa Platelet mean volume (Bld) [Entitic vol] 9.6 fL Normal 9.5-13.5 [facility] Comment on above: Performed By: #### L IPA, HSTROPN, TSH, CMP #### [facility] [address] [place] [address] Dr. Juan Zamarripa PLT 187 103/ul Normal 150-450 [facility] Comment on above: Performed By: #### L IPA, HSTROPN, TSH, CMP #### [facility] [address] [place] [address] Dr. Juan Zamarripa RBC 4.26 106/ul Normal 4.20-5.40 [facility] Comment on above: Performed By: #### L IPA, HSTROPN, TSH, CMP #### [facility] [address] [place] [address] Dr. Juan Zamarripa WBC 10.9 103/ul Normal 4.0-11.0 [facility] Comment on above: Performed By: #### L IPA, HSTROPN, TSH, CMP #### [facility] [address] [place] [address] Dr. Juan Zamarripa Covid-19 PCR ([facility])on 11-07 SARS-CoV-2 (COVID-19) RNA SUNNY+probe Ql (Unsp spec) Not detected Normal NOT DETECTED [facility] Comment on above: Result Comment: When [...] for this test is supported by the Director Of Customer Acquisition of Health and Human Service's declaration that [...] L IPA, HSTROPN, TSH, CMP #### [facility] [address] [place] [address] Dr. Juan Zamarripa LIPASEon 11-26-2021 Lipase [Catalytic activity/Vol] 140.0 U/L Normal 73.0-393.0 [facility] Comment on above: Performed By: #### L IPA, HSTROPN, TSH, CMP #### [facility] [address] [place] [address] Dr. Juan Zamarripa PROF 14(COMP METB)on 022 Albumin [Mass/Vol] 4.2 g/dL Normal 3.4-5.0 [facility] Comment on above: Performed By: #### L IPA, HSTROPN, TSH, CMP #### [facility] [address] [place] [address] Dr. Juan Zamarripa Albumin/Globulin [Mass ratio] 1.1 {ratio} Normal [facility] Comment on above: Performed By: #### L IPA, HSTROPN, TSH, CMP #### [facility] [address] [address] [address] Juan Zamarripa ALP [Catalytic activity/Vol] 93 U/L Normal 46-116 [facility] Comment on above: Performed By: #### L IPA, HSTROPN, TSH, CMP #### [facility] [address] [address] [address] Juan Zamarripa ALT [Catalytic activity/Vol] 74 U/L Critically high 14-59 [facility] Comment on above: Performed By: #### L IPA, HSTROPN, TSH, CMP #### [facility] [address] [place] [address] Dr. Juan Zamarripa Anion gap [Moles/Vol] 15.6 mmol/L Normal [facility] Comment on above: Performed By: #### L IPA, HSTROPN, TSH, CMP #### [facility] [address] [address] [address] Juan Zamarripa AST [Catalytic activity/Vol] 46 U/L Critically high 15-37 [facility] Comment on above: Performed By: #### L IPA, HSTROPN, TSH, CMP #### [facility] [address] [place] [address] Dr. Juan Zamarripa Bilirubin [Mass/Vol] 0.6 mg/dL Normal 0.2-1.0 [facility] Comment on above: Performed By: #### L IPA, HSTROPN, TSH, CMP #### [facility] [address] [place] [address] Dr. Juan Zamarripa Calcium [Mass/Vol] 9.7 mg/dL Normal 8.5-10.1 [facility] Comment on above: Performed By: #### L IPA, HSTROPN, TSH, CMP #### [facility] [address] [place] [address] Dr. Juan Zamarripa Chloride [Moles/Vol] 100 mmol/L Normal 98-107 [facility] Comment on above: Performed By: #### L IPA, HSTROPN, TSH, CMP #### [facility] [address] [address] [address] Juan Zamarripa CO2 [Moles/Vol] 25.6 mmol/L Normal 21.0-32.[address] [facility] Comment on above: Performed By: #### L IPA, HSTROPN, TSH, CMP #### [facility] [address] [place] [address] Dr. Juan Zamarripa Creatinine [Mass/Vol] 0.89 mg/dL Normal 0.55-1.02 [facility] Comment on above: Performed By: #### L IPA, HSTROPN, TSH, CMP #### [facility] [address] [place] [address] Dr. Juan Zamarripa EGFR-AF SPANISH >60 Normal >=[address] [facility] Comment on above: Performed By: #### L IPA, HSTROPN, TSH, CMP #### [facility] [address] [place] [address] Dr. Juan Zamarripa EGFR-NON AF SPANISH >60 Normal >=60 [facility] Comment on above: Performed By: #### L IPA, HSTROPN, TSH, CMP #### [facility] [address] [place] [address] Dr. Juan Zamarripa Globulin (S) [Mass/Vol] 3.7 g/dL Normal [facility] Comment on above: Performed By: #### L IPA, HSTROPN, TSH, CMP #### [facility] [address] [place] [address] Dr. Juan Zamarripa Glucose [Mass/Vol] 183 mg/dL Critically high 74-106 [facility] Comment on above: Performed By: #### L IPA, HSTROPN, TSH, CMP #### [facility] [address] [place] [address] Dr. Juna Zamarripa Potassium [Moles/Vol] 4.2 mmol/L Normal 3.5-5.1 [facility] Comment on above: Performed By: #### L IPA, HSTROPN, TSH, CMP #### [facility] [address] [address] [address] Juan Zamarripa Protein [Mass/Vol] 7.9 g/dL Normal 6.4-8.2 [facility] Comment on above: Performed By: #### L IPA, HSTROPN, TSH, CMP #### [facility] [address] [address] [address] Juan Zamarripa Sodium [Moles/Vol] 137 mmol/L Normal 136-145 [facility] Comment on above: Performed By: #### L IPA, HSTROPN, TSH, CMP #### [facility] [address] [place] [address] Dr. Juan Zamarripa Urea nitrogen [Mass/Vol] 13.0 mg/dL Normal 7.0-18.0 [facility] Comment on above: Performed By: #### L IPA, HSTROPN, TSH, CMP #### [facility] [address] [place] [address] Dr. Juan Zamarripa Urea nitrogen/Creatinine [Mass ratio] 14.6 mg/mg Normal [facility] Comment on above: Performed By: #### L IPA, HSTROPN, TSH, CMP #### [facility] [address] [place] [address] Dr. Juan Zamarripa TROPONIN, HIGH SENSITIVITYon 11-26-2021 HSTROP 4.6 pg/mL Normal 4.0-51.3 [facility] Comment on above: Result Comment: CUT- OFF POINTS HAVE BEEN ESTABLISHED BASED ON THE FOURTH UNIVERSAL DEFINITIONS OF MYOCARDIAL INFARCTION. THE UPPER REFERENCE LIMIT (URL) OF TROPONIN, DEFINED THE 99TH PERCENTILE OF cTnI DISTRIBUTION IN A REFERENCE POPULATION, HAS BEEN CONFIRMED THE DECISION THRESHOLD FOR ME DIAGNOSIS. Performed By: #### L IPA, HSTROPN, TSH, CMP #### [facility] [address] [place] [address] Dr. Juan Zamarripa TSHon 11-26-2021 TSH 2.343 uIU/mL Normal 0.358-3.74 0 [facility] Comment on above: Performed By: #### L IPA, HSTROPN, TSH, CMP #### [facility] [address] [place], [place] [address] Dr. Juan Zamarripa XR CHEST 1 Von [...] ARANA Date: 2021-11-26 21:03 Normal [facility] Covid-19 PCR ([facility])on SARS-CoV-2 (COVID-19) RNA SUNNY+probe Ql (Unsp spec) Not detected Normal NOT DETECTED [facility] Comment on above: Result Comment: This test is not yet approved or cleared by the [place] FDA. When there are no FDA-approved or cleared tests available, and other criteria are met, FDA can make tests available under an emergency access mechanism called an Emergency Use Authorization (EUA). The EUA for this test is supported by the Director Of Customer Acquisition of Health and Human Service's (HHS's) declaration [...] Performed By: #### C BC #### [facility] [address] [place], [place] [address] Dr. Juan Zamarripa CBC AUTO DIFFon 08-17-2021 BASO # 0.1 103/ul Normal 0.0-0.1 [facility] Comment on above: Performed By: #### L IPA, HSTROPN, TSH, CMP #### [facility] [address] [place] [address] Dr. Juan Zamarripa Basophils/100 WBC (Bld) 0.7 % Normal 0.2-2.0 [facility] Comment on above: Performed By: #### L IPA, HSTROPN, TSH, CMP #### [facility] [address] [place] [address] Dr. Juan Zamarripa EO # 0.1 103/ul Normal 0.0-0.7 [facility] Comment on above: Performed By: #### L IPA, HSTROPN, TSH, CMP #### [facility] [address] [place] [address] Dr. Juan Zamarripa Eosinophils/100 WBC (Bld) 1.6 % Normal 0.9-7.0 [facility] Comment on above: Performed By: #### L IPA, HSTROPN, TSH, CMP #### [facility] [address] [place] [address] Dr. Juan Zamarripa Erythrocyte distribution width (RBC) [Ratio] 12.6 % Normal 11.0-15.0 [facility] Comment on above: Performed By: #### L IPA, HSTROPN, TSH, CMP #### [facility] [address] [place] [address] Dr. Juan Zamarripa Hematocrit (Bld) [Volume fraction] 39.8 % Normal 36.0-48.0 [facility] Comment on above: Performed By: #### L IPA, HSTROPN, TSH, CMP #### [facility] [address] [place] [address] Dr. Juan Zamarripa Hemoglobin (Bld) [Mass/Vol] 13.7 g/dL Normal 12.0-16.0 [facility] Comment on above: Performed By: #### L IPA, HSTROPN, TSH, CMP #### [facility] [address] [place] [address] Dr. Juan Zamarripa IG # 0.02 10e3/ul Normal 0.00-0.03 [facility] Comment on above: Performed By: #### L IPA, HSTROPN, TSH, CMP #### [facility] [address] [address] [address] Juan Zamarripa IG % 0.3 % Normal 0.0-0.5 [facility] Comment on above: Performed By: #### L IPA, HSTROPN, TSH, CMP #### [facility] [address] [address] [address] Juan Zamarripa LYMPH # 3.1 103/ul Normal 1.2-3.8 [facility] Comment on above: Performed By: #### L IPA, HSTROPN, TSH, CMP #### [facility] [address] [place] [address] Dr. Juan Zamarripa Lymphocytes/100 WBC (Bld) 40.5 % Normal 20.5-60.0 [facility] Comment on above: Performed By: #### L IPA, HSTROPN, TSH, CMP #### [facility] [address] [place] [address] Dr. Juan Zamarripa MANUAL DIFF REQ NO Normal [facility] Comment on above: Performed By: #### L IPA, HSTROPN, TSH, CMP #### [facility] [address] [place] [address] Dr. Juan Zamarripa MCH (RBC) [Entitic mass] 32.3 pg Normal 26.7-34.0 [facility] Comment on above: Performed By: #### L IPA, HSTROPN, TSH, CMP #### [facility] [address] [place] [address] Dr. Juan Zamarripa MCHC (RBC) [Mass/Vol] 34.4 g/dL Normal 29.9-35.2 [facility] Comment on above: Performed By: #### L IPA, HSTROPN, TSH, CMP #### [facility] [address] [place] [address] Dr. Juan Zamarripa MCV (RBC) [Entitic vol] 93.9 fL Normal 81.0-99.0 [facility] Comment on above: Performed By: #### L IPA, HSTROPN, TSH, CMP #### [facility] [address] [address] [address] Juan Zamarripa MONO # 0.3 103/ul Normal 0.3-0.8 [facility] Comment on above: Performed By: #### L IPA, HSTROPN, TSH, CMP #### [facility] [address] [place] [address] Dr. Juan Zamarripa Monocytes/100 WBC (Bld) 4.2 % Normal 1.7-12.0 [facility] Comment on above: Performed By: #### L IPA, HSTROPN, TSH, CMP #### [facility] [address] [place] [address] Dr. Juan Zamarripa NEUT # 4.0 103/ul Normal 1.4-6.5 [facility] Comment on above: Performed By: #### L IPA, HSTROPN, TSH, CMP #### [facility] [address] [place] [address] Dr. Juan Zamarripa Neutrophils/100 WBC (Bld) 52.7 % Normal 43.0-75.0 [facility] Comment on above: Performed By: #### L IPA, HSTROPN, TSH, CMP #### [facility] [address] [place] [address] Dr. Juan Zamarripa Platelet mean volume (Bld) [Entitic vol] 9.7 fL Normal 9.5-13.5 [facility] Comment on above: Performed By: #### L IPA, HSTROPN, TSH, CMP #### [facility] [address] [place] [address] Dr. Juan Zamarripa PLT 164 103/ul Normal 150-450 [facility] Comment on above: Performed By: #### L IPA, HSTROPN, TSH, CMP #### [facility] [address] [place] [address] Dr. Juan Zamarripa RBC 4.24 106/ul Normal 4.20-5.40 [facility] Comment on above: Performed By: #### L IPA, HSTROPN, TSH, CMP #### [facility] [address] [place] [address] Dr. Juan Zamarripa WBC 7.6 103/ul Normal 4.0-11.0 [facility] Comment on above: Performed By: #### L IPA, HSTROPN, TSH, CMP #### [facility] [address] [address] [address] Juan Zamarripa FREE T4on 08-17-2021 Free T4 [Mass/Vol] 1.00 ng/dL Normal 0.76-1.46 [facility] Comment on above: Performed By: #### C BC #### [facility] [address] [place] [address] Dr. Juan Zamarripa GLYCOHEMOGLOBIN A1Con 2021 ADA RECOMMENDATION SEE BELOW Normal [facility] Comment on above: Result Comment: ADA RECOMMENDED LIMIT 4.0 - 6.0 ADA THERAPEUTIC TARGET < 7.0 ACTION SUGGESTED > 7.0 Performed By: #### A 1C #### [facility] [address] [place] [address] Dr. Juan Zamarripa Glucose [Mass/Vol] 140 mg/dL Normal [facility] Comment on above: Performed By: #### A 1C #### [facility] [address] [place] [address] Dr. Juan Zamarripa HbA1c (Bld) [Mass fraction] 6.5 % Critically high 4.5-6.2 [facility] Comment on above: Performed By: #### A 1C #### [facility] [address] [place] [address] Dr. Juan Zamarripa LIPID PROFILEon 08-17-2021 CHOL-HDL RATIO NORM SEE BELOW Normal [facility] Comment on above: Result Comment: 3.3 - 4.4 LOW RISK 4.4 - 7.1 AVERAGE RISK 7.1 - 11.0 MODERATE RISK >11.0 HIGH RISK Performed By: #### L IPA, HSTROPN, TSH, CMP #### [facility] [address] [place] [address] Dr. Juan Zamarripa Cholesterol [Mass/Vol] 115 mg/dL Normal <=200 [facility] Comment on above: Performed By: #### L IPA, HSTROPN, TSH, CMP #### [facility] [address] [address] [address] Juan Zamarripa Cholesterol in HDL [Mass/Vol] 40 mg/dL Normal 40-60 [facility] Comment on above: Performed By: #### L IPA, HSTROPN, TSH, CMP #### [facility] [address] [address] [address] Juan Zamarripa Cholesterol in LDL [Mass/Vol] 53.6 mg/dL Normal [facility] Comment on above: Performed By: #### L IPA, HSTROPN, TSH, CMP #### [facility] [address] [address] [address] Juan Zamarripa Cholesterol.total/Amanda sterol in HDL [Mass ratio] 2.9 {ratio} Normal [facility] Comment on above: Performed By: #### L IPA, HSTROPN, TSH, CMP #### [facility] [address] [address] [address] Juan Zamarripa HDL NORMAL > or = 60 mg/dl - LO W CARDIOVASCULAR RISK <40 mg/dl - HIGH CARDIOVASCULAR RISK Normal [facility] Comment on above: Performed By: #### L IPA, HSTROPN, TSH, CMP #### [facility] [address] [address] [address] Juan Zamarripa LDL CALC NORMAL SEE BELOW Normal [facility] Comment on above: Result Comment: <100 mg/dl OPTIMAL 100 - 129 mg/dl NEAR OR ABOVE OPTIMAL 130 - 159 mg/dl BORDERLINE HIGH 160 - 189 mg/dl HIGH >190 mg/dl VERY HIGH Performed By: #### L IPA, HSTROPN, TSH, CMP #### [facility] [address] [address] [address] Juan Zamarripa Triglyceride [Mass/Vol] 107 mg/dL Normal <=150 T [facility] Comment on above: Performed By: #### L IPA, HSTROPN, TSH, CMP #### [facility] [address] [address] [address] Juan Zamarripa VLDL CALC 21.4 mg/dL Normal [facility] Comment on above: Performed By: #### L IPA, HSTROPN, TSH, CMP #### [facility] [address] [place] [address] Dr. Juan Zamarripa PROF 14(COMP METB)on 022 Albumin [Mass/Vol] 4.1 g/dL Normal 3.4-5.0 [facility] Comment on above: Performed By: #### L IPA, HSTROPN, TSH, CMP #### [facility] [address] [place] [address] Dr. Juan Zamarripa Albumin/Globulin [Mass ratio] 1.1 {ratio} Normal [facility] Comment on above: Performed By: #### L IPA, HSTROPN, TSH, CMP #### [facility] [address] [place] [address] Dr. Juan Zamarripa ALP [Catalytic activity/Vol] 94 U/L Normal 46-116 [facility] Comment on above: Performed By: #### L IPA, HSTROPN, TSH, CMP #### [facility] [address] [place] [address] Dr. Juan Zamarripa ALT [Catalytic activity/Vol] 61 U/L Critically high 14-59 [facility] Comment on above: Performed By: #### L IPA, HSTROPN, TSH, CMP #### [facility] [address] [place] [address] Dr. Juan Zamarripa Anion gap [Moles/Vol] 16.5 mmol/L Normal [facility] Comment on above: Performed By: #### L IPA, HSTROPN, TSH, CMP #### [facility] [address] [place] [address] Dr. Juan Zamarripa AST [Catalytic activity/Vol] 24 U/L Normal 15-37 [facility] Comment on above: Performed By: #### L IPA, HSTROPN, TSH, CMP #### [facility] [address] [place] [address] Dr. Juan Zamarripa Bilirubin [Mass/Vol] 0.7 mg/dL Normal 0.2-1.0 [facility] Comment on above: Performed By: #### L IPA, HSTROPN, TSH, CMP #### [facility] [address] [address] [address] Juan Zamarripa Calcium [Mass/Vol] 9.1 mg/dL Normal 8.5-10.1 [facility] Comment on above: Performed By: #### L IPA, HSTROPN, TSH, CMP #### [facility] [address] [place] [address] Dr. Juan Zamarripa Chloride [Moles/Vol] 103 mmol/L Normal 98-107 [facility] Comment on above: Performed By: #### L IPA, HSTROPN, TSH, CMP #### [facility] [address] [place] [address] Dr. Juan Zamarripa CO2 [Moles/Vol] 25.4 mmol/L Normal 21.0-32.[address] [facility] Comment on above: Performed By: #### L IPA, HSTROPN, TSH, CMP #### [facility] [address] [place] [address] Dr. Juan Zamarripa Creatinine [Mass/Vol] 0.87 mg/dL Normal 0.55-1.02 [facility] Comment on above: Performed By: #### L IPA, HSTROPN, TSH, CMP #### [facility] [address] [place] [address] Dr. Juan Zamarripa EGFR-AF SPANISH >60 Normal >=[address] [facility] Comment on above: Performed By: #### L IPA, HSTROPN, TSH, CMP #### [facility] [address] [place] [address] Dr. Juan Zamarripa EGFR-NON AF SPANISH >60 Normal >=60 [facility] Comment on above: Performed By: #### L IPA, HSTROPN, TSH, CMP #### [facility] [address] [place] [address] Dr. Juan Zamarripa Globulin (S) [Mass/Vol] 3.9 g/dL Normal T [facility] Comment on above: Performed By: #### L IPA, HSTROPN, TSH, CMP #### [facility] [address] [place] [address] Dr. Juan Zamarripa Glucose [Mass/Vol] 157 mg/dL Critically high 74-106 T [facility] Comment on above: Performed By: #### L IPA, HSTROPN, TSH, CMP #### [facility] [address] [place] [address] Dr. Juan Zamarripa Potassium [Moles/Vol] 4.4 mmol/L Normal 3.5-5.1 [facility] Comment on above: Performed By: #### L IPA, HSTROPN, TSH, CMP #### [facility] [address] [place] [address] Dr. Juan Zamarripa Protein [Mass/Vol] 8.0 g/dL Normal 6.4-8.2 [facility] Comment on above: Performed By: #### L IPA, HSTROPN, TSH, CMP #### [facility] [address] [place] [address] Dr. Juan Zamarripa Sodium [Moles/Vol] 141 mmol/L Normal 136-145 [facility] Comment on above: Performed By: #### L IPA, HSTROPN, TSH, CMP #### [facility] [address] [place] [address] Dr. Juan Zamarripa Urea nitrogen [Mass/Vol] 21.0 mg/dL Critically high 7.0-18.0 [facility] Comment on above: Performed By: #### L IPA, HSTROPN, TSH, CMP #### [facility] [address] [place] [address] Dr. Juan Zamarripa Urea nitrogen/Creatinine [Mass ratio] 24.1 mg/mg Normal [facility] Comment on above: Performed By: #### L IPA, HSTROPN, TSH, CMP #### [facility] [address] [place] [address] Dr. Juan Zamarripa TSHon 08-17-2021 TSH 1.503 uIU/mL Normal 0.358-3.74 0 [facility] Comment on above: Performed By: #### L IPA, HSTROPN, TSH, CMP #### [facility] [address] [place] [address] Dr. Juan Zamarripa TSH RANGE SEE BELOW Normal [facility] Comment on above: Result Comment: <0.3 4 UIU/ml HYPERTHYROID 0.34-5.60 UIU/ml EUTHYROID >5.60 UIU/ml HYPOTHYROID Performed By: #### L IPA, HSTROPN, TSH, CMP #### [facility] [address] [address] [address] Juan Weinstein 08-11-2021 CNPN Telephone (NCCAP) -------- IVELISSE GEE ([id number]) 1950 F Date Time Provider Department 08/11/21 MEHRDAD AGUILAR During your visit today, we recorded the following information about you: Marta Cuellar [facility] 08/11/2021 12:14 PM Signed [...] Status:Closed by MARTA GARCES on 08/11/21 Normal [facility] [id number] QUANTITA TIONon 10-13-2020 [id number] (AAT) PHENOTYPE SEE NOTE Normal [facility] Comment on above: Order Comment: FASTI NG:YES FASTING: YES Result Comment: THIS PATIENT'S HJALL-0-XEUTIXJWOSH PHENOTYPE IS PI*MM. 90% of normal individuals have the MM phenotype, with normal quantitative AAT levels. Many phenotypic patterns have been described, including deficiency states with F, S, Z, or other alleles. As a general estimation, compared to M allele of 100% of normal Y-5-Siyjhrjbjki protein, the S allele produces approximately 60% and the Z allele 20%. For example, an MS phenotype would have about 80% of normal J-0-Cxgloogtjfg protein level, a 50% contribution from the M allele and 30% from the S allele. A ZZ phenotype would have about 20% of normal levels, a 10% contribution from each Z gene. The F allele has normal K-8-Hmlhyhvxxuk levels, but the kinetics of elastase inhibition [...] phenotype. Performed By: #### 2 63, 457, 19284, 7573, 508, 498, 326, 8472, 496, 249, 72026, 259 #### [facility] [place] [address] [address] Therapeutic Assistant: Kush Hines MD #### [phone] #### [facility], [address] [place] [address] Therapeutic Assistant: Susan Sheikh MD,PhD,AJY #### [id number], [phone] #### [facility] [facility] [place], [place] Therapeutic Assistant: Parrish Gloria M.D.,PhD YYEDC-3-[id number] QN 170 mg/dL Normal 83-199 [facility] Comment on above: Order Comment: FASTI NG:YES FASTING: YES Performed By: #### 2 63, 457, 94638, 7573, 508, 498, 326, 8472, 496, 249, 34984, 259 #### [facility] [address] [place] [address] Therapeutic Assistant: Kush Hines MD #### [id number] #### [facility], [address] [place] [address] Therapeutic Assistant: Susan Sheikh MD,PhD,JAY #### [phone], [phone] #### [facility] [address] [facility] [place], [place] Therapeutic Assistant: Parrish Gloria M.D.,PhD LT SCREEN, IFA, W/REFL TITE R AND PATTERNon [...] AC-0: Negative International Consensus on TL Patterns (https://doi.org/10.1515/rukc-[email or web address]) For additional information, please refer to http://education.MindSumo/faq/XAH562 (This link is being provided for informational/ educational purposes only.) Performed By: #### 2 63, 457, 11462, 7573, 508, 498, 326, 8472, 496, 249, 65451, 259 #### [facility] [address], [address] [place] [address] Therapeutic Assistant: Kush Hines MD #### [id number] #### [facility], [address] [place] [address] Therapeutic Assistant: Susan hSeikh MD,PhD,JAY #### [phone], [phone] #### [facility] [facility] [place], [place] Therapeutic Assistant: Parrish Gloria M.D.,PhD CELIAC DISEASE COMPREHENSIVE PANEL 10-13-2020 IMMUNOGLOBULIN A 185 mg/dL Normal 70-320 [facility] Comment on above: Performed By: #### 2 63, 457, 71285, 7573, 508, 498, 326, 8472, 496, 249, 06230, 259 #### [facility] [address], [address] [place] [address] Therapeutic Assistant: Kush Hines MD #### [phone] #### [facility], [address] [place] Therapeutic Assistant: Susan Sheikh MD,PhD,JAY #### [phone], 71240 #### [facility] [facility] [place] Therapeutic Assistant: Parrish Gloria M.D.,PhD INTERPRETATION see note Normal [...] DQ8. Performed By: #### 2 63, 457, 02840, 7573, 508, 498, 326, 8472, 496, 249, 01470, 259 #### [facility] [address], [address] [place] [address] Therapeutic Assistant: Kush Hines MD #### [phone] #### [facility], [address] [place] [address] Therapeutic Assistant: Susan Sheikh MD,PhD,JAY #### [phone], [phone] #### [facility] [address] [facility] [place] Therapeutic Assistant: Parrish Gloria M.D.,PhD TISSUE TRANSGLUTAMINASE AB, IGA 2 U/mL Normal <4 [facility] Comment on above: Result Comment: Value Interpretation <4 U/mL: No Antibody Detected >or=4 U/mL: Antibody Detected Performed By: #### 2 63, 457, 60332, 7573, 508, 498, 326, 8472, 496, 249, 01965, 259 #### [facility] [address], [address] [place] [address] Therapeutic Assistant: Kush Hines MD #### [phone] #### [facility], [address] [place] [address] Therapeutic Assistant: Susan Sheikh MD,PhD,JAY #### [phone], 42018 #### [facility] [address] [facility] [address] [place] Therapeutic Assistant: Parrish Gloria M.D.,PhD CERULOPLASMINon 10-13-2020 CERULOPLASMIN 31 mg/dL Normal 18-53 [facility] Comment on above: Performed By: #### 2 63, 457, 16667, 7573, 508, 498, 326, 8472, 496, 249, 16388, 259 #### [facility] [address], [address] [place] [address] Therapeutic Assistant: Kush Hines MD #### [id number] #### [facility], [address] [place] [address] Therapeutic Assistant: Susan Sheikh MD,PhD,JAY #### 42885, 57191 #### [facility] [address] [facility] [place] Therapeutic Assistant: Parrish Gloria M.D.,PhD FERRITINon 10-13-2020 Ferritin [Mass/Vol] 70 ng/mL Normal 16-288 [facility] Comment on above: Performed By: #### 2 63, 457, 46001, 7573, 508, 498, 326, 8472, 496, 249, 66814, 259 #### [facility] [address] [place] [address] Therapeutic Assistant: Kush Hines MD #### [id number] #### [facility], [address] [place] [address] Therapeutic Assistant: Susan Sheikh MD,PhD,JAY #### 30915, 51082 #### [facility] [address] [facility] [place] Therapeutic Assistant: Parrish Gloria M.D.,PhD HEMOGLOBIN A1con 10-13-2020 HEMOGLOBIN [...] children. Performed By: #### 2 63, 457, 59971, 7573, 508, 498, 326, 8472, 496, 249, 53535, 259 #### [facility] [address], [address] [place] [address] Therapeutic Assistant: Kush Hines MD #### [phone] #### [facility], [address] [place] Therapeutic Assistant: Susan Sheikh MD,PhD,JAY #### [phone], 55338 #### [facility] [facility] [place] Therapeutic Assistant: Parrish Gloria M.D.,PhD HEPATITIS A AB, TOTALon 07-0 HEPATITIS A AB, TOTAL Reactive Abnormal NON-RE ACTI VE [facility] Comment on above: Result Comment: For additional information, please refer to http://education.Myndnet.[employer]/faq/YDX801 (This link is being provided for informational/ educational purposes only.) Performed By: #### 2 63, 457, 02930, 7573, 508, 498, 326, 8472, 496, 249, 56063, 259 #### [facility] [address], [address] [place] [address] Therapeutic Assistant: Kush Hines MD #### [phone] #### [facility], [address] [place], [place] Therapeutic Assistant: Susan Sheikh MD,PhD,JAY #### 96655, 44128 #### [facility] [address] [facility] [place] [address] Therapeutic Assistant: Parrish Gloria M.D.,PhD HEPATITIS B CORE AB TOTAL W/ REFL IGMon 10-13-2020 HEPATITIS B CORE AB TOTAL Non-Reactive Normal NON-REACTI VE [facility] Comment on above: Performed By: #### 2 63, 457, 04648, 7573, 508, 498, 326, 8472, 496, 249, 39252, 259 #### [facility] [address] [facility], [address] [place] [address] Therapeutic Assistant: Kush Hines MD #### [id number] #### [facility], [address] [address] Therapeutic Assistant: Susan Sheikh MD,PhD,JAY #### 66535, 59172 #### [facility] [facility] [place] Therapeutic Assistant: Parrish Gloria M.D.,PhD HEPATITIS B SURFACE ANTIBODY QLon 10-13-2020 HEPATITIS B SURFACE ANTIBODY QL Non-Reactive Normal NON-REACTI VE [facility] Comment on above: Performed By: #### 2 63, 457, 39026, 7573, 508, 498, 326, 8472, 496, 249, 84728, 259 #### [facility] [address] [facility], [address] [place] [address] Therapeutic Assistant: Kush Hines MD #### [id number] #### [facility], [address] [place] Therapeutic Assistant: Susan Sheikh MD,PhD,JAY #### 52061, 76724 #### [facility] [facility] [place] Therapeutic Assistant: Parrish Gloria M.D.,PhD HEPATITIS B SURFACE ANTIGEN W/REFL CONFIRMon 10-13-2020 HEPATITIS B SURFACE ANTIGEN Non-Reactive Normal NON-REACTI VE [facility] Comment on above: Performed By: #### 2 63, 457, 52924, 7573, 508, 498, 326, 8472, 496, 249, 89171, 259 #### [facility] [address], [address] [place] [address] Therapeutic Assistant: Kush Hines MD #### [phone] #### [facility], [address] [place] [address] Therapeutic Assistant: Susan Sheikh MD,PhD,JAY #### 06275, 67973 #### [facility] [facility] [place] Therapeutic Assistant: Parrish Gloria M.D.,PhD HEPATITIS C AB W/REFL TO HCV RNA, QN, PCRon 10-13-2020 HEPATITIS C ANTIBODY Non-Reactive Normal NON-CHARMAINE CTI VE [facility] Comment on above: Performed By: #### 2 63, 457, 66713, 7573, 508, 498, 326, 8472, 496, 249, 03289, 259 #### [facility] [address], [address] [place] [address] Therapeutic Assistant: Kush Hines MD #### [id number] #### [facility], [address] [place] [address] Therapeutic Assistant: Susan Sheikh MD,PhD,JAY #### 84567, 14413 #### [facility] [address] [facility] [address] [place] Therapeutic Assistant: Parrish Gloria M.D.,PhD INDEX 0.02 Normal <1.00 [facility] Comment on above: Result Comment: HCV antibody was non-reactive. There is no laboratory evidence of HCV infection. In most cases, no further action is required. However, if recent HCV exposure is suspected, a test for HCV RNA (test code 85983) is suggested. For additional information please refer to http://education.[facility].com/faq/ZJY78c6 (This link is being provided for informational/ educational purposes only.) Performed By: #### 2 63, 457, 72455, 7573, 508, 498, 326, 8472, 496, 249, 43924, 259 #### [facility] [address], [address] [place] [address] Therapeutic Assistant: Kush Hines MD #### [phone] #### [facility], [address] [place] [address] Therapeutic Assistant: Susan Sheikh MD,PhD,JAY #### 05147, 63916 #### [facility] [facility] [place] Therapeutic Assistant: Parrish Gloria M.D.,PhD IRON AND TOTAL IRON BINDING CAPACITYon 10-13-2020 % SATURATION 19 % (calc) Normal 16-45 [facility] Comment on above: Performed By: #### 2 63, 457, 72781, 7573, 508, 498, 326, 8472, 496, 249, 13803, 259 #### [facility] [address], [address] [place] [address] Therapeutic Assistant: Kush Hines MD #### [phone] #### [facility], [address] [place] [address] Therapeutic Assistant: Susan Sheikh MD,PhD,JAY #### 43750, 96779 #### [facility] [address] [facility] [place] Therapeutic Assistant: Parrish Gloria M.D.,PhD IRON BINDING CAPACITY 372 mcg/dL (calc) Normal 250-450 [facility] Comment on above: Performed By: #### 2 63, 457, 71267, 7573, 508, 498, 326, 8472, 496, 249, 96695, 259 #### [facility] [address] [place] [address] Therapeutic Assistant: Kush Hines MD #### [phone] #### [facility], [address] [place] [address] Therapeutic Assistant: Susan Sheikh MD,PhD,JAY #### 68635, 13334 #### [facility] [facility] [place] Therapeutic Assistant: Parrish Gloria M.D.,PhD IRON, TOTAL 70 mcg/dL Normal 45-160 [facility] Comment on above: Performed By: #### 2 63, 457, 40656, 7573, 508, 498, 326, 8472, 496, 249, 99106, 259 #### [facility] [address], [address] [place] [address] Therapeutic Assistant: Kush Hines MD #### [phone] #### [facility], [address] [address] Therapeutic Assistant: Susan Sheikh MD,PhD,JAY #### 51801, 96970 #### [facility] [address] [facility] [place] Therapeutic Assistant: Parrish Gloria M.D.,PhD LIVER KIDNEY MICROSOME (LKM- [...] infection. Performed By: #### 2 63, 457, 86905, 7573, 508, 498, 326, 8472, 496, 249, 99666, 259 #### [facility] [address], [address] [place] [address] Therapeutic Assistant: Kush Hines MD #### 54519 #### [facility], [address] [address] Therapeutic Assistant: Susan Sheikh MD,PhD,JAY #### 14238, 53014 #### [facility] [facility] [place], [place] Therapeutic Assistant: Parrish Gloria M.D.,PhD MITOCHONDRIAL ANTIBODY W/REF L TITERon 10-13-2020 MITOCHONDRIAL AB SCREEN Negative Normal NEGATIVE Q [facility] Comment on above: Performed By: #### 2 63, 457, 76311, 7573, 508, 498, 326, 8472, 496, 249, 98276, 259 #### [facility] [address], [address] [place] [address] Therapeutic Assistant: Kush Hines MD #### [id number] #### [facility], [address] [place], [place] Therapeutic Assistant: Susan Sheikh MD,PhD,JAY #### 25995, 57446 #### [facility] [address] [facility] [place] Therapeutic Assistant: Parrish Gloria M.D.,PhD SMOOTH MUSCLE AB W/REFL TITE Butch 10-13-2020 SMOOTH MUSCLE AB SCREEN Negative Normal NEGATIVE Q [facility] Comment on above: Performed By: #### 2 63, 457, 76008, 7573, 508, 498, 326, 8472, 496, 249, 53038, 259 #### [facility] [address] [place] [address], [address] [place] [address] Therapeutic Assistant: Kush Hines MD #### [id number] #### [facility], [address] [place] [address] Therapeutic Assistant: Susan Sheikh MD,PhD,JAY #### 53894, 96147 #### [facility] [facility] [place] Therapeutic Assistant: Parrish Gloria M.D.,PhD TSH W/REFLEX TO FT4on 2020 TSH W/REFLEX TO FT4 3.10 mIU/L Normal 0.40-4.50 [facility] Comment on above: Performed By: #### 2 63, 457, 33872, 7573, 508, 498, 326, 8472, 496, 249, 96955, 259 #### [facility] [address], [address] [place] [address] Therapeutic Assistant: Kush Hines MD #### [phone] #### [facility], [address] [place] [address] Therapeutic Assistant: Susan Sheikh MD,PhD,JAY #### 73363, 73409 #### [facility] [facility] [place], [place] Therapeutic Assistant: Parrish Gloria M.D.,PhD CNOVSPon 09-30-2020 CNOVS Visit (SP) Office (HEMASA) -------- IVELISSE [id number]) 1950 F Date Time Provider Department 09/30/20 1:30 PM MEHRDAD AGUILAR During your visit today, we recorded the following information about you: Temperature Pulse Respiration Blood pressure 97.2 degrees 71/minute 18/minute 121/54 Weight Height 73.6 kg 1.57 m Mehrdad Aguilar MD 10/02/2020 5:36 PM Signed PATIENT NAME: Ivelisse Gee DATE: 09/30/2020 PRIMARY CARE PHYSICIAN: Carmen Conley MD OTHER PHYSICIANS: Dr. Wahl (PCP [place], [place]), Dr. Magdaleno Castillo ([facility]) Portions of this encounter note have [...] BP 121/ (more content not included)... Normal [facility] Albumin/Creat Ratioon 2020 Albumin Urine Random <12.0 Normal [facility] Comment on above: Performed By: #### C MP, INSLAB, LIPB, CPEPT, GADCAB, B12, VITD, UACR ####[address] [place] [address] [address], [place] [phone] Albumin/Creat Ratio Not calculated Normal <30 [facility] Comment on above: Performed By: #### C MP, INSLAB, LIPB, CPEPT, GADCAB, B12, VITD, UACR ####[address] [place] [address], [place] [phone] Creatinine,Urine,Ran 53.8 mg/dL Normal 20-300 [facility] Comment on above: Performed By: #### C MP, INSLAB, LIPB, CPEPT, GADCAB, B12, VITD, UACR ####[address] [place] [place], [place] [phone] C-Peptideon 09-27-2020 C-Peptide 1.8 ng/mL Normal 0.8-3.9 [facility] Comment on above: Performed By: #### C MP, INSLAB, LIPB, CPEPT, GADCAB, B12, VITD, UACR ####[address] [address], [place] [phone] CBC and Differentialon 09-27 Abs Baso 0.03 k/uL Normal <0.11 [facility] Abs [place] 0.33 k/uL Normal <0.87 [facility] Abs Neut 4.29 k/uL Normal 1.45-7.50 [facility] Absolute nRBC <0.01 Normal <0.01 [facility] Basophils/100 WBC (Bld) 0.4 % Normal [facility] DTYPE Auto Diff Normal [facility] Eosinophils (Bld) [#/Vol] 0.12 10*3/uL Normal <0.46 [facility] Eosinophils/100 WBC (Bld) 1.5 % Normal [facility] Erythrocyte distribution width (RBC) [Ratio] 13.0 % Normal 11.5-15.0 [facility] Hematocrit (Bld) [Volume fraction] 37.3 % Normal 36.0-46.0 [facility] Hemoglobin (Bld) [Mass/Vol] 13.0 g/dL Normal 11.5-15.5 [facility] Lymphocytes (Bld) [#/Vol] 3.40 10*3/uL Normal 1.00-4.00 [facility] Lymphocytes/100 WBC (Bld) 41.6 % Normal [facility] MCH 31.9 pG Normal 26.0-34.0 [facility] MCHC (RBC) [Mass/Vol] 34.9 g/dL Normal 30.5-36.0 [facility] MCV (RBC) [Entitic vol] 91.4 fL Normal 80.0-100.[address] [facility] Monocytes/100 WBC (Bld) 4.0 % Normal [facility] Neutrophils/100 WBC (Bld) 52.5 % Normal [facility] NRBCs 0.0 /100 WBC Normal 0 [facility] Platelet mean volume (Bld) [Entitic vol] 9.6 fL Normal 9.0-12.7 [facility] Platelets (Bld) [#/Vol] 164 10*3/uL Normal 150-400 [facility] RBC (Bld) [#/Vol] 4.08 10*6/uL Normal 3.90-5.20 [facility] WBC (Bld) [#/Vol] 8.18 10*3/uL Normal 3.70-11.00 [facility] Comp Metabolic Panelon 09-27 Albumin [Mass/Vol] 4.4 g/dL Normal 3.9-4.9 [facility] Comment on above: Performed By: #### C MP, INSLAB, LIPB, CPEPT, GADCAB, B12, VITD, UACR ####[place] [address], [place] [phone] ALP [Catalytic activity/Vol] 88 U/L Normal 34-123 [facility] Comment on above: Performed By: #### C MP, INSLAB, LIPB, CPEPT, GADCAB, B12, VITD, UACR ####[place] [address], [place] [phone] ALT [Catalytic activity/Vol] 63 U/L High 7-38 [facility] Comment on above: Performed By: #### C MP, INSLAB, LIPB, CPEPT, GADCAB, B12, VITD, UACR ####[address] [address] [place], [place] [phone] Anion gap [Moles/Vol] 12 mmol/L Normal 9-18 [facility] Comment on above: Performed By: #### C MP, INSLAB, LIPB, CPEPT, GADCAB, B12, VITD, UACR ####[address] [address] [place], [place] [phone] AST [Catalytic activity/Vol] 42 U/L High 13-35 [facility] Comment on above: Performed By: #### C MP, INSLAB, LIPB, CPEPT, GADCAB, B12, VITD, UACR ####[place] [address] [place], [place] [phone] Bilirubin [Mass/Vol] 0.6 mg/dL Normal 0.2-1.3 [facility] Comment on above: Performed By: #### C MP, INSLAB, LIPB, CPEPT, GADCAB, B12, VITD, UACR ####[place] [address] [place], [place] [phone] Calcium [Mass/Vol] 9.2 mg/dL Normal 8.5-10.2 [facility] Comment on above: Performed By: #### C MP, INSLAB, LIPB, CPEPT, GADCAB, B12, VITD, UACR ####[facility] [place], [place] [phone] Chloride [Moles/Vol] 104 mmol/L Normal 97-105 [facility] Comment on above: Performed By: #### C MP, INSLAB, LIPB, CPEPT, GADCAB, B12, VITD, UACR ####[facility] [place], [place] [phone] Creatinine [Mass/Vol] 0.68 mg/dL Normal 0.58-0.96 [facility] Comment on above: Performed By: #### C MP, INSLAB, LIPB, CPEPT, GADCAB, B12, VITD, UACR ####[address] [phone] Glucose [Mass/Vol] 152 mg/dL High 74-99 [facility] Comment on above: Result Comment: The [place] Diabetes Association (ADA) provides guidance for cutoff [...] Standards of Medical Care in Diabetes 2016, [place] [employer]. Diabetes Care. 2016.39(Suppl 1). Performed By: #### C MP, INSLAB, LIPB, CPEPT, GADCAB, B12, VITD, UACR ####[place] [address] [place], [place] [phone] Potassium [Moles/Vol] 4.3 mmol/L Normal 3.7-5.1 [facility] Comment on above: Performed By: #### C MP, INSLAB, LIPB, CPEPT, GADCAB, B12, VITD, UACR ####[facility] [address] [place], [place] [phone] Sodium [Moles/Vol] 140 mmol/L Normal 136-144 [facility] Comment on above: Performed By: #### C MP, INSLAB, LIPB, CPEPT, GADCAB, B12, VITD, UACR ####[facility] [place], [place] [phone] Urea nitrogen [Mass/Vol] 14 mg/dL Normal 7-21 [facility] Comment on above: Performed By: #### C MP, INSLAB, LIPB, CPEPT, GADCAB, B12, VITD, UACR ####[place] [address] [place], [place] [phone] Albumin [Mass/Vol] 4.5 g/dL Normal 3.9-4.9 [facility] ALP [Catalytic activity/Vol] 83 U/L Normal 34-123 [facility] ALT [Catalytic activity/Vol] 58 U/L High 7-38 [facility] Anion gap [Moles/Vol] 11 mmol/L Normal 9-18 [facility] AST [Catalytic activity/Vol] 34 U/L Normal 13-35 [facility] Bilirubin [Mass/Vol] 0.7 mg/dL Normal 0.2-1.3 [facility] Calcium [Mass/Vol] 9.5 mg/dL Normal 8.5-10.2 [facility] Chloride [Moles/Vol] 103 mmol/L Normal 97-105 [facility] CO2 [Moles/Vol] 24 mmol/L Normal 22-30 [facility] Comment on above: Performed By: #### C MP, INSLAB, LIPB, CPEPT, GADCAB, B12, VITD, UACR ####[facility] [place], [place] [phone] Creatinine [Mass/Vol] 0.67 mg/dL Normal 0.58-0.96 [facility] eGFR- Amer. >60 Normal [facility] Comment on above: Performed By: #### C MP, INSLAB, LIPB, CPEPT, GADCAB, B12, VITD, UACR ####[facility] [place], [place] [phone] eGFR-All Other Races >60 Normal [facility] Comment on above: Result Comment: eGFR [...] INSLAB, LIPB, CPEPT, GADCAB, B12, VITD, UACR ####[facility] [address] [place], [place] [phone] Glucose [Mass/Vol] 161 mg/dL High 74-99 [facility] Comment on above: Result Comment: The Swiss Diabetes Association (ADA) provides guidance for cutoff [...] Standards of Medical Care in Diabetes 2016, Swiss Diabetes Association. Diabetes Care. 2016.39(Suppl 1). Potassium [Moles/Vol] 4.1 mmol/L Normal 3.7-5.1 [facility] Protein [Mass/Vol] 7.2 g/dL Normal 6.3-8.0 [facility] Comment on above: Performed By: #### C MP, INSLAB, LIPB, CPEPT, GADCAB, B12, VITD, UACR ####[place] [address] [place], [place] [phone] Sodium [Moles/Vol] 138 mmol/L Normal 136-144 [facility] Urea nitrogen [Mass/Vol] 13 mg/dL Normal 7-21 [facility] Glutamic Ac Decar Abon 09-27 Glutam Ac Dec Ab Ql Negative Normal Negative [facility] Comment on above: Performed By: #### C MP, INSLAB, LIPB, CPEPT, GADCAB, B12, VITD, UACR ####[place] [address] [place], [place] [phone] Glutamic Ac Decar Ab <5.0 Normal <5.1 [facility] Comment on above: Performed By: #### C MP, INSLAB, LIPB, CPEPT, GADCAB, B12, VITD, UACR ####[place] [address] [place], [place] [phone] Insulin Autoantibodyon 09-27 Insulin Ab Ql Negative Normal Negative [facility] Comment on above: Performed By: #### C MP, INSLAB, LIPB, CPEPT, GADCAB, B12, VITD, UACR ####[place] [address] [place], [place] [phone] Insulin Antibody <0.4 Normal <0.4 [facility] Comment on above: Performed By: #### C MP, INSLAB, LIPB, CPEPT, GADCAB, B12, VITD, UACR ####[place] [address] [place], [place] [phone] Lipid Panel, [place] 021 Cholesterol [Mass/Vol] 110 mg/dL Normal <200 [facility] Comment on above: Result Comment: <200 mg/dL, Desirable 200-239 mg/dL, Borderline high >239 mg/dL, High Performed By: #### C MP, INSLAB, LIPB, CPEPT, GADCAB, B12, VITD, UACR ####[facility] [place], [place] [phone] Cholesterol in HDL [Mass/Vol] 37 mg/dL Low >39 [facility] Comment on above: Result Comment: 40-5 9 mg/dL, Acceptable >59 mg/dL, High: Negative risk factor for coronary heart disease <40 mg/dL, Low: Positive risk factor for coronary heart disease Performed By: #### C MP, INSLAB, LIPB, CPEPT, GADCAB, B12, VITD, UACR ####[address] [phone] Cholesterol in LDL [Mass/Vol] 49 mg/dL Normal <100 [facility] Comment on above: Result Comment: <100 mg/dL, Optimal 100-129 mg/dL, Near optimal/above optimal 130-159 mg/dL, Borderline high 160-189 mg/dL, High >189 mg/dL, Very high Secondary prevention optimal LDL Cholesterol levels are recommended to be < 70 mg/dL Performed By: #### C MP, INSLAB, LIPB, CPEPT, GADCAB, B12, VITD, UACR ####[address] [phone] Fasting Time 12 hrs Normal [facility] Comment on above: Performed By: #### C MP, INSLAB, LIPB, CPEPT, GADCAB, B12, VITD, UACR ####[place] [address] [place], [place] [phone] LDL:HDL Ratio 1.32 Normal <2.54 [facility] Comment on above: Result Comment: Refe rence: 1. National Cholesterol Education Program ATP III Guideline At-A-Glance Quick Desk Reference: National Heart, Lung, and Blood [place]. National Institutes of Health. 2001: NIH Publication No. 01-3305. 2. An International Atherosclerosis Society position paper: global recommendations for the management of dyslipidemia: executive summary, Atherosclerosis. 2014: 232(2):410-413. Performed By: #### C MP, INSLAB, LIPB, CPEPT, GADCAB, B12, VITD, UACR ####[place] [address] [place], [place] [phone] Non HDL Cholesterol 73 mg/dL Normal <130 [facility] Comment on above: Result Comment: <130 mg/dL, Optimal 130-159 mg/dL, Near optimal/above optimal 160-189 mg/dL, Borderline high 190-219 mg/dL, High >219 mg/dL, Very high Secondary prevention optimal non HDL Cholesterol levels are recommended to be < 100 mg/dL Performed By: #### C MP, INSLAB, LIPB, CPEPT, GADCAB, B12, VITD, UACR ####[address] [place], [place] [phone] TC:HDL Ratio 2.97 Normal <5.10 [facility] Comment on above: Performed By: #### C MP, INSLAB, LIPB, CPEPT, GADCAB, B12, VITD, UACR ####[place] [phone] Triglyceride [Mass/Vol] 121 mg/dL Normal <150 [facility] Comment on above: Result Comment: <150 mg/dL, Normal 150-199 mg/dL, Borderline high 200-499 mg/dL, High >499 mg/dL, Very high Performed By: #### C MP, INSLAB, LIPB, CPEPT, GADCAB, B12, VITD, UACR ####[address] [place], [place] [phone] VLDL Cholesterol 24 mg/dL Normal <30 [facility] Comment on above: Performed By: #### C MP, INSLAB, LIPB, CPEPT, GADCAB, B12, VITD, UACR ####[address] [place], [place] [phone] Vitamin B12on 09-27-2020 Cobalamin (Vitamin B12) [Mass/Vol] 431 pg/mL Normal 232-1245 [facility] Comment on above: Performed By: #### C MP, INSLAB, LIPB, CPEPT, GADCAB, B12, VITD, UACR ####[facility] [place], [place] [phone] Vitamin D 25 Hydroxyon 09-27 Vitamin D 25 Hydroxy 47.2 ng/mL Normal 31.0-80.0 [facility] Comment on above: Result Comment: Clas sification of 25 [place] Vitamin D status: Insufficiency/Moderate Deficiency: < or = 30 ng/mL Sufficiency/Optimal Levels: 31 to 80 ng/mL Toxicity: > 100 ng/mL Test performed by chemiluminescent immunoassay. Performed By: #### C MP, INSLAB, LIPB, CPEPT, GADCAB, B12, VITD, UACR ####[facility] [address] [place], [place] [phone] [facility] ([place]) -------- IVELISSE GEE ([id number]) 1950 F Date Time Provider Department 09/22/20 [...] Date Reviewed: 09/22/2020 Reviewed by: Mac Perez APRN.DEPUTY CHIEF MAGISTRATE - Fully Assessed Reason for Visit: Lab Orders [9928] Primary Visit Diagnosis:Thrombocytopen ia (HCC) [D69.6] Order(s):CBC + DIFF [SQCBCDIF] Order #: [id number] STANDING COMP METABOLIC PANEL [SQCMP] Order #: [id number] STANDING Prescriptions as of 09/22/2020 Sig: METFORMIN [...] Status:Closed by MAC PEREZ on 09/22/20 Normal [facility] MRI ABDOMEN WO/W IVCONon MRI ABDOMEN WO/W IVCON * * *Final Report * * * DATE OF EXAM: Sep 21 2020 11:45AM [facility] 0689 - MRI ABDOMEN WO/W IVCON [...] 6 months is recommended to assess the longterm stability, progression or resolution of the findings. No enhancing pancreatic mass with special attention to the head of the pancreas. 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 5 mm and 9 mm Bosniak type II hemorrhagic cysts at the midpole of the left kidney. Additional subcentimeter renal cysts. Cholecystectomy with mildly dilatation. No choledocholithiasis. 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 Thank you. BRM: Order pending, please review and sign. MONICO Louie 09/01/2020 2:24 PM Signed Called patient to inform her that she has been scheduled for MRI @ [facility] on 09/07/20 @ 8:30am. LMOV. 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 Pipe Supervisor (topogram) images: No additional findings. IMPRESSION: 1. [...] any questions regarding this interpretation, please call [phone]. If you are unable to reach us at the number above, please feel free to contact [facility] eRadiology at [phone]. [id number] Normal [facility] Protein Electrophor.on 08-30 Albumin [Mass/Vol] 4.24 g/dL High 3.37-4.23 [facility] Comment on above: Performed By: #### S EPG ####[facility] [address] [place], [place] [phone] Alpha 1 Globulin 0.27 gm/dL Normal 0.18-0.31 [facility] Comment on above: Performed By: #### S EPG ####[facility] [address], [place] [phone] Alpha 2 Globulin 0.82 gm/dL Normal 0.52-0.97 [facility] Comment on above: Performed By: #### S EPG ####[facility] [address], [place] [phone] Beta Globulin 1.11 gm/dL Normal 0.84-1.36 [facility] Comment on above: Performed By: #### S EPG ####[facility] [address] [place], [place] [phone] Gamma Globulin 1.27 gm/dL Normal 0.70-1.44 [facility] Comment on above: Performed By: #### S EPG ####[address] [phone] Interpretation SEE COMMENT [facility] Comment on above: Result Comment: No d efinitive M protein is identified on protein electrophoresis. Performed By: #### S EPG ####[address] [phone] M Protein Location N/A [facility] Comment on above: Performed By: #### S EPG ####[address] [phone] M Shmuel Concentratn 0.00 gm/dL Normal 0.00 [facility] Comment on above: Performed By: #### S EPG ####[place] [phone] Protein [Mass/Vol] 7.7 g/dL Normal 6.3-8.0 [facility] Comment on above: Performed By: #### S EPG ####[place] [phone] SPE Staff Review Reviewed by Audelia Cabrera MD ([id number]) [facility] Comment on above: Performed By: #### S EPG ####[place] [phone] Js 08-23-2020 DAVID Telephone (GRISEL) -------- IVELISSE GEE ([id number]) 1950 F Date Time Provider Department 08/23/20 [...] Lorri Keyes Sec routed this conversation to [facility] Clerical Pool Lorri Keyes Sec ? 3:53 PM Note Left message at Dr Magdaleno Cuello [facility]. They may ask for me. She needs to be seen for Liver cirrhosis. Please call [phone] to refer this patient if they do not call back to schedule. Tracy Gonzáles [facility] 08/24/2020 10:00 AM Signed Records and referral faxed to [facility]. Marta Cuellar Pss 08/25/2020 1:09 PM [...] Encounter Status:Closed by ADELE DELONG on 09/20/20 [facility] Js 08-22-2020 CNPN Telephone ([facility]) -------- IVELISSE GEE ([id number]) 1950 F Date Time Provider Department 08/22/20 MEHRDAD AGUILAR During your visit today, we recorded the following information about you: Allergies As of Date: 08/22/2020 Noted Allergy Reaction SULFA (SULFONAMIDE ANTIBIOTICS) 09/05/2016 10 - Anaphylaxis LATEX, NATURAL RUBBER 09/06/2016 16 - Unknown Comments: Only bandaids Date Reviewed: 08/19/2020 Reviewed by: Carlos Brewer MA - Fully Assessed Reason for Visit: Patient Question [6277] Prescriptions as of 08/22/2020 Sig: METFORMIN ER [...] Encounter Status:Closed by MARTA GARCES on 08/22/20 [facility] CNOVSPon 08-19-2020 CNOVS Visit (SP) Office ([place]) -------- IVELISSE GEE ([id number]) 1950 F Date Time Provider Department 08/19/20 11:15 AM MHERDAD AGUILAR During your visit today, we recorded the following information about you: Temperature Pulse Respiration Blood pressure 98.2 degrees 88/minute 16/minute 130/56 Weight Height 74 kg 1.57 m Mehrdad Aguilar MD 08/20/2020 1:40 PM Signed PATIENT NAME: Ivelisse Gee DATE: 08/19/2020 PRIMARY CARE PHYSICIAN: Carmen Conley MD OTHER PHYSICIANS: Dr. Wahl ((PCP [place], [place]) HPI: This is a 70 year [...] requiring hospitalization, most recently while residing in [place] in June 2020. During her recent hospitalization labs revealed persistent thrombocytopenia with a platelet count ranging from 80-90,000. The patient is currently referred for evaluation of her abnormal CBC. Since the patient's hospitalization she started zgxc-ozb-qwxvbvq supplements including multivitamin. She has had no [...] intolerance, urinar (more content not included)... Normal [facility] Js 08-19-2020 [facility] Telephone ([place]) -------- IVELISSE GEE ([id number]) 1950 F Date Time Provider Department 08/19/20 JESSIE ACUÑA (RN) [place] During your visit today, we recorded the following information about you: Jessie Acuña 08/19/2020 12:27 PM Signed Please sign pending CAP CTs w/IVCON for Ivelisse Gee [id number] who was added to the schedule for scans on 08/30. Thanks KAMALJIT Zepeda, RN Mehrdad Aguilar MD 08/19/2020 12:41 PM Signed Actually we just need CT abd/pelvis BRChun Acuña 08/19/2020 1:07 PM Signed Noted to have only abd/pelvis CT done. Thanks! 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] Other Visit Diagnosis:Enlarged lymph node [R59.9] Order(s):CT ABD/PEL W IVCON [[id number]] Order #: [id number] FUTURE iv contrast (will be provided with [...] Status:Closed by JESSIE ACUÑA on 08/19/20 Normal [facility] Comp Metabolic Panelon 08-19 Albumin [Mass/Vol] 4.7 g/dL Normal 3.9-4.9 [facility] ALP [Catalytic activity/Vol] 93 U/L Normal 34-123 [facility] ALT [Catalytic activity/Vol] 56 U/L High 7-38 [facility] Anion gap [Moles/Vol] 12 mmol/L Normal 9-18 [facility] AST [Catalytic activity/Vol] 40 U/L High 13-35 [facility] Bilirubin [Mass/Vol] 0.9 mg/dL Normal 0.2-1.3 [facility] Calcium [Mass/Vol] 9.8 mg/dL Normal 8.5-10.2 [facility] Chloride [Moles/Vol] 102 mmol/L Normal 97-105 [facility] CO2 [Moles/Vol] 22 mmol/L Normal 22-30 [facility] Creatinine [Mass/Vol] 0.66 mg/dL Normal 0.58-0.96 [facility] eGFR- Amer. >60 Normal [facility] eGFR-All Other Races >60 Normal [facility] Comment on above: Result Comment: eGFR [...] GFR. Glucose [Mass/Vol] 258 mg/dL High 74-99 [facility] Comment on above: Result Comment: The [place] Diabetes Association (ADA) provides guidance for cutoff [...] Standards of Medical Care in Diabetes 2016, Swiss Diabetes Association. Diabetes Care. 2016.39(Suppl 1). Potassium [Moles/Vol] 4.3 mmol/L Normal 3.7-5.1 [facility] Protein [Mass/Vol] 8.0 g/dL Normal 6.3-8.0 [facility] Sodium [Moles/Vol] 136 mmol/L Normal 136-144 [facility] Urea nitrogen [Mass/Vol] 13 mg/dL Normal 7-21 [facility] Ferritinon 08-19-2020 Ferritin [Mass/Vol] 184.0 ng/mL Normal 14.7-205.1 [facility] Comment on above: Performed By: #### F ERR, IRON ####[place] [address] [phone] Iron and TIBCon 08-19-2020 Iron [Mass/Vol] 116 ug/dL Normal 41-186 [facility] Comment on above: Performed By: #### F ERR, IRON ####[place] [address] [place] [phone] TIBC 357 ug/dL Normal 232-386 [facility] Comment on above: Performed By: #### F ERR, IRON ####[place] [phone] Transferrin Saturatn 32 % Normal 15-57 [facility] Comment on above: Performed By: #### F ERR, IRON ####[place] [phone] LDon 08-19-2020 LD 171 U/L Normal 135-214 [facility] Monclnl Protein, Seron 08-19 K/L Ratio, Serum 1.43 Normal 0.26-1.65 [facility] Comment on above: Performed By: #### S ERMPA, B12 ####[address] [phone] [place], Free, Serum 28.3 mg/L High 3.30-19.40 [facility] Comment on above: Result Comment: Test performed by an immunoturbidimetric assay on Optilite instrument from [facility]. Immunoglobulin free light chain assay results should be interpreted in conjunction with other tests and in correlation with clinical picture. Performed By: #### Kg DOMINGUEZ B12 ####[place] [phone] Lambda, Free, Serum 19.8 mg/L Normal 5.7-26.3 [facility] Comment on above: Result Comment: Test performed by an immunoturbidimetric assay on Optilite instrument from [facility]. Immunoglobulin free light chain assay results should be interpreted in conjunction with other tests and in correlation with clinical picture. Performed By: #### S ANGELICA B12 ####[place] [phone] MPA Interpretation SEE COMMENT Normal [facility] Comment on above: Result Comment: Poor [...] necessary. Performed By: #### Kg DOMINGUEZ B12 ####[place] [phone] MPA Result A poorly defined reg ion of restricted mobility is present that may represent an M protein. Critically abnormal No M protein is identified . [facility] Comment on above: Performed By: #### S ANGELICA B12 ####[facility] [phone] MPA Serum IgA 196 mg/dL Normal 70-400 [facility] Comment on above: Performed By: #### S ANGELICA, B12 ####[place] [address] [place] [phone] MPA Serum IgG 1243 mg/dL Normal 700-1600 [facility] Comment on above: Performed By: #### S ANGELICA, B12 ####[facility] [address] [place], [place] [phone] MPA Serum IgM 58 mg/dL Normal 40-230 [facility] Comment on above: Performed By: #### S ANGELICA, B12 ####[facility] [address] [place], [place] [phone] Staff Review Reviewed by Audelia Cabrera MD ([id number]) Normal [facility] Comment on above: Performed By: #### S ANGELICA, B12 ####[place] [address] [place], [place] [phone] Remote CBCDIF (for [facility] use o nly)on 08-19-2020 Abs Baso <0.03 Normal <0.11 [facility] Abs [place] 0.33 k/uL Normal <0.87 [facility] Abs Neut 3.89 k/uL Normal 1.45-7.50 [facility] Absolute nRBC <0.01 Normal <0.01 [facility] Basophils/100 WBC (Bld) 0.3 % Normal C [facility] DTYPE Auto Diff Normal [facility] Eosinophils (Bld) [#/Vol] 0.14 10*3/uL Normal <0.46 [facility] Eosinophils/100 WBC (Bld) 2.0 % Normal [facility] Erythrocyte distribution width (RBC) [Ratio] 12.8 % Normal 11.5-15.0 [facility] Hematocrit (Bld) [Volume fraction] 40.5 % Normal 36.0-46.0 [facility] Hemoglobin (Bld) [Mass/Vol] 13.8 g/dL Normal 11.5-15.5 [facility] Lymphocytes (Bld) [#/Vol] 2.71 10*3/uL Normal 1.00-4.00 [facility] Lymphocytes/100 WBC (Bld) 38.1 % Normal [facility] MCH 31.2 pG Normal 26.0-34.0 [facility] MCHC (RBC) [Mass/Vol] 34.1 g/dL Normal 30.5-36.0 [facility] MCV (RBC) [Entitic vol] 91.4 fL Normal 80.0-100.[address] [facility] Monocytes/100 WBC (Bld) 4.6 % Normal C [facility] Neutrophils/100 WBC (Bld) 55.0 % Normal [facility] NRBCs 0.0 /100 WBC Normal 0 [facility] Platelet mean volume (Bld) [Entitic vol] 9.7 fL Normal 9.0-12.7 [facility] Platelets (Bld) [#/Vol] 170 10*3/uL Normal 150-400 [facility] RBC (Bld) [#/Vol] 4.43 10*6/uL Normal 3.90-5.20 [facility] WBC (Bld) [#/Vol] 7.11 10*3/uL Normal 3.70-11.00 [facility] Reticulocyteon 08-19-2020 Abs Retic 0.096 M/uL Normal 0.0180-0.1 000 [facility] Retic% 2.2 % High 0.4-2.0 [facility] Vitamin B12on 08-19-2020 Cobalamin (Vitamin B12) [Mass/Vol] 421 pg/mL Normal 232-1245 [facility] Comment on above: Performed By: #### S ERMPA, B12 ####[facility] [address] [place], [place] [phone] Vital Signs Date Time Vital Sign Value Performing Clinician Bea krishnamurthy 10-08-2023 13:29-0400 Diastolic blood pressure 80 mm[Hg] Dontae Hernández [facility] [place] 10-08-2023 13:29-0400 Heart rate 79 /min Dontae Hernández [facility] [place] 10-08-2023 13:29-0400 Respiratory rate 20 /min Dontae Hernández [facility] [place] 10-08-2023 13:29-0400 SaO2% (BldA) [Mass fraction] 94 % Dontae Hernández [facility] [place] 10-08-2023 13:29-0400 Systolic blood pressure 134 mm[Hg] Dontae Hernández [facility] [place] 09-05-2023 10:12-0400 Diastolic blood pressure 86 mm[Hg] Dontae Hernández [facility] [place] 09-05-2023 10:12-0400 Mean blood pressure 105 mm[Hg] Dontae Hernández [facility] [place] 09-05-2023 10:12-0400 Systolic blood pressure 142 mm[Hg] Dontae Hernández [facility] [place] 09-05-2023 10:01-0400 Blood Pressure Location Dontae Hernández [facility] [place] 09-05-2023 10:01-0400 Diastolic blood pressure 88 mm[Hg] Dontae Hernández [facility] [place] 09-05-2023 10:01-0400 Heart rate 82 /min Dontae Hernández [facility] [place] 09-05-2023 10:01-0400 SaO2% (BldA) [Mass fraction] 97 % Dontae Hernández [facility] [place] 09-05-2023 10:01-0400 Systolic blood pressure 142 mm[Hg] Dontae Hernández [facility] [place] 07-24-2023 13:50-0400 Blood Pressure Location Shaun Goode [facility] 07-24-2023 13:50-0400 Diastolic blood pressure 77 mm[Hg] Shaun Goode [facility] 07-24-2023 13:50-0400 Heart rate 85 /min Shaun Goode [facility] 07-24-2023 13:50-0400 Respiratory rate 16 /min Shaun Goode [facility] 07-24-2023 13:50-0400 Systolic blood pressure 135 mm[Hg] Mohamad Mouchli [facility] 07-02-2023 09:50-0400 Diastolic blood pressure 72 mm[Hg] Mohamad Mouchli [facility] [place] 07-02-2023 09:50-0400 Heart rate 82 /min Mohamad Mouchli [facility] [place] 07-02-2023 09:50-0400 Mean blood pressure 97 mm[Hg] Mohamad Mouchli [facility] [place] 07-02-2023 09:50-0400 Respiratory rate 17 /min Mohamad Mouchli [facility] 07-02-2023 09:50-0400 SaO2% (BldA) [Mass fraction] 94 % Mohamad Mouchli [facility] 07-02-2023 09:50-0400 Systolic blood pressure 148 mm[Hg] Mohamad Mouchli [facility] 07-02-2023 09:40-0400 Diastolic blood pressure 72 mm[Hg] Mohamad Mouchli [facility] 07-02-2023 09:40-0400 Heart rate 80 /min Mohamad Mouchli [facility] 07-02-2023 09:40-0400 Mean blood pressure 92 mm[Hg] Mohamad Mouchli [facility] 07-02-2023 09:40-0400 Respiratory rate 11 /min Mohamad Mouchli [facility] 07-02-2023 09:40-0400 SaO2% (BldA) [Mass fraction] 93 % Mohamad Mouchli [facility] 07-02-2023 09:40-0400 Systolic blood pressure 132 mm[Hg] Mohamad Mouchli [facility] 07-02-2023 09:35-0400 Diastolic blood pressure 62 mm[Hg] Mohamad Mouchli [facility] 07-02-2023 09:35-0400 Heart rate 86 /min Mohamad Mouchli [facility] 07-02-2023 09:35-0400 Mean blood pressure 90 mm[Hg] Mohamad Mouchli [facility] 07-02-2023 09:35-0400 Respiratory rate 15 /min Mohamad Mouchli [facility] 07-02-2023 09:35-0400 SaO2% (BldA) [Mass fraction] 93 % Mohamad Mouchli [facility] 07-02-2023 09:35-0400 Systolic blood pressure 147 mm[Hg] Mohamad Mouchli [facility] 07-02-2023 09:25-0400 Body temperature 97.16 [degF] Mohamad Mouchli [facility] 07-02-2023 08:43-0400 Blood Pressure Location Mohamad Mouchli [facility] 07-02-2023 08:43-0400 Body temperature 96.8 [degF] Mohamad Mouchli [facility] 06-26-2023 12:17-0400 Blood Pressure Location Mohamad Mouchli [facility] 06-26-2023 12:17-0400 Diastolic blood pressure 82 mm[Hg] Shaun Gipsonli [facility] 06-26-2023 12:17-0400 Heart rate 80 /min Ramyad Mouchli [facility] 06-26-2023 12:17-0400 Respiratory rate 16 /min Shaun Gipsonli [facility] 06-26-2023 12:17-0400 Systolic blood pressure 138 mm[Hg] Shaun Gipsonli [facility] 06-21-2023 13:44-0400 Diastolic blood pressure 68 mm[Hg] Deonte Peraza [facility] 06-21-2023 13:44-0400 Heart rate 96 /min Deonte Peraza [facility] 06-21-2023 13:44-0400 SaO2% (BldA) [Mass fraction] 95 % Deonte Peraza [facility] 06-21-2023 13:44-0400 Systolic blood pressure 138 mm[Hg] Deonte Peraza [facility] 03-21-2023 13:30-0500 Body height 153.67 cm Carmen Conley Other [employer] [facility] [employer] Other 03-21-2023 13:30-0500 Body mass index (BMI) [Ratio] 30.54 kg/m2 Carmen Conley Other [facility] Other 03-21-2023 13:30-0500 Body weight 72.12 kg Carmen Conley Other [facility] Other 03-21-2023 13:30-0500 Diastolic blood pressure 79 mm[Hg] Carmen Conley Other [facility] Other 03-21-2023 13:30-0500 Systolic blood pressure 136 mm[Hg] Carmen Conley Other [facility] Other 01-24-2023 11:15-0400 Body height 153.67 cm Carmen Conley Other [facility] Other 01-24-2023 11:15-0400 Body mass index (BMI) [Ratio] 29.58 kg/m2 Carmen Conley Other [facility] Other 01-24-2023 11:15-0400 Body temperature 97.7 [degF] Carmen Conley Other [facility] Other 01-24-2023 11:15-0400 Body weight 69.85 kg Carmen Conley Other [facility] Other 01-24-2023 11:15-0400 Diastolic blood pressure 80 mm[Hg] Carmen Conley Other [facility] Other 01-24-2023 11:15-0400 SaO2% (BldA) [Mass fraction] 97 % Carmen Conley Other [facility] Other 01-24-2023 11:15-0400 Systolic blood pressure 137 mm[Hg] Carmen Conley Other [facility] Other 12-28-2022 13:30-0400 Body height 153.67 cm Carmen Conley Other [facility] Other 12-28-2022 13:30-0400 Body mass index (BMI) [Ratio] 29.96 kg/m2 Carmen Conley Other [facility] Other 12-28-2022 13:30-0400 Body weight 70.76 kg Carmen Conley Other [facility] Other 12-28-2022 13:30-0400 Diastolic blood pressure 64 mm[Hg] Carmen Conley Other [facility] Other 12-28-2022 13:30-0400 Systolic blood pressure 106 mm[Hg] Carmen Conley Other [facility] Other 08-07-2022 12:45-0400 Body height 153.67 cm Carmen Conley Other [facility] Other 08-07-2022 12:45-0400 Body mass index (BMI) [Ratio] 30.15 kg/m2 Carmen Conley Other [facility] Other 08-07-2022 12:45-0400 Body temperature 98.1 [degF] Carmen Conley Other [facility] Other 08-07-2022 12:45-0400 Body weight 71.22 kg Carmen Conley Other [facility] Other 08-07-2022 12:45-0400 Diastolic blood pressure 72 mm[Hg] Carmen Conley Other [facility] Other 08-07-2022 12:45-0400 SaO2% (BldA) [Mass fraction] 97 % Carmen Conley Other [facility] Other 08-07-2022 12:45-0400 Systolic blood pressure 132 mm[Hg] Carmen Conley Other [facility] Other 06-20-2022 12:00-0400 Body height 153.67 cm Carmen Conley Other [facility] Other 06-20-2022 12:00-0400 Body mass index (BMI) [Ratio] 30.54 kg/m2 Carmen Conley Other [facility] Other 06-20-2022 12:00-0400 Body weight 72.12 kg Carmen Conley Other [facility] Other 06-20-2022 12:00-0400 Diastolic blood pressure 70 mm[Hg] Carmen Conley Other [facility] Other 06-20-2022 12:00-0400 SaO2% (BldA) [Mass fraction] 98 % Carmen Conley Other [facility] Other 06-20-2022 12:00-0400 Systolic blood pressure 118 mm[Hg] Carmen Conley Other [facility] Other 06-12-2022 09:30-0500 Body height 153.67 cm Carmen Conley Other [facility] Other 06-12-2022 09:30-0500 Body mass index (BMI) [Ratio] 30.54 kg/m2 Carmen Conley Other [facility] Other 06-12-2022 09:30-0500 Body weight 72.12 kg Carmen Conley Other [facility] Other 06-12-2022 09:30-0500 Diastolic blood pressure 64 mm[Hg] Carmen Conley Other [facility] Other 06-12-2022 09:30-0500 SaO2% (BldA) [Mass fraction] 97 % Carmen Conley Other [facility] Other 06-12-2022 09:30-0500 Systolic blood pressure 116 mm[Hg] Carmen Conley Other [facility] Other 05-10-2022 11:00-0500 Body height 153.67 cm Carmen Conley Other [facility] Other 05-10-2022 11:00-0500 Body mass index (BMI) [Ratio] 30.54 kg/m2 Carmen Conley Other [facility] Other 05-10-2022 11:00-0500 Body weight 72.12 kg Carmen Conley Other [facility] Other 05-10-2022 11:00-0500 Diastolic blood pressure 62 mm[Hg] Carmen Conley Other [facility] Other 05-10-2022 11:00-0500 SaO2% (BldA) [Mass fraction] 97 % Carmen Conley Other [facility] Other 05-10-2022 11:00-0500 Systolic blood pressure 118 mm[Hg] Carmen Conley Other [facility] Other 04-20-2022 11:30-0500 Body height 153.67 cm Carmen Conley Other [facility] Other 04-20-2022 11:30-0500 Body mass index (BMI) [Ratio] 30.54 kg/m2 Carmen Conley Other [facility] Other 04-20-2022 11:30-0500 Body weight 72.12 kg Carmen oCnley Other [facility] Other 04-20-2022 11:30-0500 Diastolic blood pressure 80 mm[Hg] Carmen Conley Other [facility] Other 04-20-2022 11:30-0500 SaO2% (BldA) [Mass fraction] 97 % Carmen Conley Other [facility] Other 04-20-2022 11:30-0500 Systolic blood pressure 126 mm[Hg] Camren Conley Other [facility] Other 04-16-2022 15:15-0500 Body height 153.67 cm Carmen Conley Other [facility] Other 04-16-2022 15:15-0500 Body mass index (BMI) [Ratio] 30.35 kg/m2 Carmen Conley Other [facility] Other 04-16-2022 15:15-0500 Body weight 71.67 kg Carmen Conley Other [facility] Other 04-16-2022 15:15-0500 Diastolic blood pressure 82 mm[Hg] Carmen Conley Other [facility] Other 04-16-2022 15:15-0500 SaO2% (BldA) [Mass fraction] 97 % Carmen Conley Other [facility] Other 04-16-2022 15:15-0500 Systolic blood pressure 136 mm[Hg] Carmen Conley Other [facility] Other Encounters Encounter Date Encounter Type Care Provider Facility Start: 12-16-2023 End: 12-16-2023 ambulatory Nohemy Mohamud MD [facility]: [facility] Start: 11-25-2023 End: 11-25-2023 ambulatory Nohemy Mohamud MD Facility: [facility] Start: 10-28-2023 End: 10-28-2023 ambulatory Nohemy Mohamud MD Facility:[facility] Start: 10-08-2023 End: 10-08-2023 ambulatory PA-C Dontae Hernández Facility:[facility] Start: 10-08-2023 End: 10-08-2023 Patient encounter procedure Dontae Hernández [facility] Start: 10-01-2023 End: 10-01-2023 ambulatory PA-C Dontae Hernández Facility:[facility] Start: 10-01-2023 End: 10-01-2023 Patient encounter procedure Dontae Hernández [facility] Start: 09-05-2023 End: 09-05-2023 ambulatory XXXX NONE Facility:[facility] Start: 09-05-2023 End: 09-05-2023 Patient encounter procedure Dontae Hernández [facility] Start: 08-05-2023 End: 08-05-2023 ambulatory Deonte Peraza Facility:[facility] Start: 08-05-2023 End: 08-05-2023 Patient encounter procedure Deonte Perzaa [facility] Start: 08-01-2023 End: 08-16-2023 Pre-admission assessment Deonte Peraza [facility] Start: 07-24-2023 End: 08-07-2023 Pre-admission assessment Shaun Goode [facility] Start: 07-24-2023 End: 07-24-2023 ambulatory Shaun Goode Facility:[facility] Start: 07-24-2023 End: 07-24-2023 Patient encounter procedure Shaun Goode [facility] Start: 07-02-2023 End: 07-02-2023 ambulatory Shaun Goode Facility:[facility] Start: 07-02-2023 End: 07-02-2023 Patient encounter procedure Shaun Goode [facility] Start: 06-26-2023 End: 06-26-2023 ambulatory Ramyad Aiden. Leonelaanjel Facility:[facility] Start: 06-26-2023 End: 06-26-2023 Patient encounter procedure Shaun Goode [facility] Start: 06-26-2023 End: 06-26-2023 ambulatory Ramyad [facility]idenJeff [facility] Start: 06-26-2023 End: 06-26-2023 Patient encounter procedure Shaun Goode [facility] Start: 06-21-2023 End: 06-21-2023 ambulatory Deonte Peraza Facility:[facility] Start: 06-21-2023 End: 06-21-2023 Patient encounter procedure Deonte Peraza [facility] Start: 06-18-2023 End: 06-18-2023 ambulatory MD Lucho GOINS Facility:[facility] Start: 06-18-2023 End: 06-18-2023 Patient encounter procedure CARMEN CONLEY [facility] Start: 06-13-2023 ambulatory JANUSZ Turner ity:[facility] Start: 05-14-2023 End: 05-14-2023 ambulatory Carmen Conley Other [facility] Other Start: 05-14-2023 Telephone encounter Carmen Conley [facility] Start: 04-16-2023 End: 04-16-2023 ambulatory ZULEIMA Wolfe FELTER Not Available Start: 04-03-2023 End: 04-03-2023 ambulatory Carmen Conley Other [facility] Other Start: 04-03-2023 Telephone encounter Carmen oCnley [facility] Start: 04-02-2023 End: 04-02-2023 ambulatory Carmen Conley Other [facility] Other Start: 04-02-2023 Telephone encounter Cramen Conley [facility] Start: 03-21-2023 End: 03-21-2023 ambulatory Carmen Conley Other [facility] Other Start: 03-21-2023 Office outpatient vi sit 15 minutes Carmen Conley [facility] Start: 03-21-2023 Telephone encounter Carmen Conley [facility] Start: 03-04-2023 End: 03-04-2023 ambulatory ZULEIMA Wolfe FELTER Not Available Start: 02-06-2023 End: 02-06-2023 ambulatory Carmen Conley Other [facility] Other Start: 02-06-2023 Telephone encounter Carmen Conley [facility] Start: 02-01-2023 End: 02-01-2023 ambulatory Carmen Conley Other [facility] Other Start: 02-01-2023 Telephone encounter Carmen Conley [facility] Start: 01-24-2023 End: 01-24-2023 ambulatory Carmen Conley Other [facility] Other Start: 01-24-2023 Office outpatient vi sit 15 minutes Carmen Conley [facility] Start: 01-17-2023 End: 01-17-2023 ambulatory Carmen Conley Other [facility] Other Start: 01-17-2023 Telephone encounter Carmen Yael [facility] Start: 01-01-2023 End: 01-01-2023 ambulatory Carmen Conley Other [facility] Other Start: 01-01-2023 Telephone encounter Carmen Yael [facility] Start: 12-28-2022 End: 12-28-2022 ambulatory Carmen Conley Other [facility] Other Start: 12-28-2022 Patient encounter procedure Carmen Yael [facility] Start: 10-04-2022 End: 10-04-2022 ambulatory Carmen Conley Other [facility] Other Start: 10-04-2022 Telephone encounter Carmen Yael [facility] Start: 08-09-2022 End: 08-09-2022 ambulatory Carmen Yael Other [facility] Other Start: 08-09-2022 Telephone encounter Carmen Yael [facility] Start: 08-08-2022 Telephone encounter Carmen Yael [facility] Start: 08-08-2022 End: 08-09-[address] CARMEN CONLEY [facility] Other Start: 08-07-2022 End: 08-07-2022 ambulatory Carmen Conley Other [facility] Other Start: 08-07-2022 Office outpatient vi sit 15 minutes Carmen Conley [facility] Start: 07-31-2022 End: 07-31-2022 ambulatory Carmen Conley Other [facility] Other Start: 07-31-2022 Telephone encounter Carmen Conley [facility] Start: 07-24-2022 End: 07-24-2022 ambulatory Carmen Conley Facility:[facility] Start: 07-02-2022 End: 07-03-[address] CARMEN CONLEY Facility:[facility] Start: 06-20-2022 End: 06-20-2022 ambulatory Carmen Conley Other [facility] Other Start: 06-20-2022 Office outpatient vi sit 10 minutes Carmen Conley [facility] Start: 06-14-2022 End: 06-14-2022 ambulatory Carmen Conley Other [facility] Other Start: 06-14-2022 Telephone encounter Carmen Conley [facility] Start: 06-12-2022 Office outpatient vi sit 15 minutes Carmen Conley [facility] Start: 06-12-2022 End: 06-13-[address] CARMEN CONLEY [facility] Other Start: 05-10-2022 End: 05-10-2022 ambulatory Carmen Conley Other [facility] Other Start: 05-10-2022 Office outpatient vi sit 15 minutes Carmen Conley [facility] Start: 05-10-2022 Telephone encounter Carmen Conley [facility] Start: 05-03-2022 End: 05-03-2022 ambulatory Carmen Conley Other [facility] Other Start: 05-03-2022 Telephone encounter Carmen Conley [facility] Start: 04-23-2022 End: 04-24-[address] CARMEN CONLEY Facility:[facility] Start: 04-20-2022 End: 04-20-2022 ambulatory Carmen Conley Other [facility] Other Start: 04-20-2022 Office outpatient vi sit 25 minutes Carmen Conley [facility] Start: 04-17-2022 End: 04-17-2022 ambulatory Carmen Conley Other [facility] Other Start: 04-17-2022 Telephone encounter Carmen Conley [facility] Start: 04-16-2022 End: 04-16-2022 ambulatory Carmen Conley Other [facility] Other Start: 04-16-2022 Office outpatient charli sit 25 minutes Carmen Conley [facility] Start: 04-12-2022 End: 04-13-[address] [...] 09-21-2020 Subsequent hospital visit by physician Mri [facility] (Lg Bore/1.5t) Radiology MRI Comment on above: [...] panel - Serum or Plasma Lipid Screening [facility] Start: 09-27-2025 LIPID SCREEN LIPID SCREEN [facility] Start: 01-08-2024 ambulatory Ambulatory Facility:[facility] Start: 09-28-2023 DIABETES SCREEN DIABETES SCREEN [facility] Start: 09-28-2023 Diabetes Screening Diabetes Screening [facility] Start: 12-07-2022 Influenza vaccination Influenza Vaccine (#1) [facility] Start: 04-08-2022 Advance Directive Discussion Advance Directive Discussion [facility] Start: 04-08-2022 Depression Assessment Depression Assessment [facility] Start: 12-07-2021 Influenza vaccination INFLUENZA (Season Ended) [facility] Start: 09-30-2021 Adult depression screening assessment DEPRESSION SCREENING [facility] Start: 04-08-2021 ADVANCE DIRECTIVE DISCUSSION ADVANCE DIRECTIVE DISCUSSION [facility] Start: 02-17-2020 Pneumococcal Vaccine: 65+ (3 - PPSV23 or PCV20) Pneumococcal Vaccine: 65+ (3 - PPSV23 or PCV20) [facility] Start: 01-07-2016 PNEUMOVAX AGE 65 AND OVER WITH 5YR LOOKBACK (#1) PNEUMOVAX AGE 65 AND OVER WITH 5YR LOOKBACK (#1) [facility] Start: 03-31-2015 SHINGRIX VACCINE (2 of 3) SHINGRIX VACCINE (2 of 3) [facility] Start: 2014 BONE DENSITY BONE DENSITY [facility] Start: 2014 Bone Density Screening Bone Density Screening [facility] Start: 2009 RSV Vaccine (1 - 1-dose 60+ series) RSV Vaccine (1 - 1-dose 60+ series) [facility] Start: 1994 COLOGUARD (FIT-DNA) COLOGUARD (FIT-DNA) [facility] Start: 1994 Colonoscopy COLONOSCOPY [facility] Start: 1994 COLORECTAL CANCER SCREENING COLORECTAL CANCER SCREENING [facility] Start: [address] COLONOGRAPHY [facility] Start: 1994 FECAL OCCULT BLOOD FECAL OCCULT BLOOD [facility] Start: 1994 SIGMOIDOSCOPY SIGMOIDOSCOPY [facility] Start: 1989 Mammography [facility] Start: 1968 HEPATITIS B (1 of 3 - Risk 3-dose series) HEPATITIS B (1 of 3 - Risk 3-dose series) [facility] Start: 1968 Urine microalbumin profile [facility] Start: 08-04-1967 HEPATITIS C SCREENING HEPATITIS C SCREENING [facility] Start: 1954 COVID-19 VACCINE (1) COVID-19 VACCINE (1) [facility] Start: 1950 HEPATITIS A (1 of 2 - Risk 2-dose series) HEPATITIS A (1 of 2 - Risk 2-dose series) [facility] Start: 02-02-1950 Covid-19 Vaccine (#1) Covid-19 Vaccine (#1) [facility] Immunizations Immunization Date Immunization Notes Care Provider [facility] 12-28-2022 pneumococcal polysaccharide vaccine, 23 valent Carmen Conley Other [facility] Other 12-28-2022 influenza, high dose seasonal, preservative-free Carmen Conley Other [facility] Other 07-04-2020 COVID-19 Vaccine Moderna - Documentation Purposes Only Carmen Conley Other [facility] Other 01-07-2020 influenza, high dose seasonal, preservative-free Mehrdad Aguilar MD Work Phone: [facility] 01-07-2020 influenza virus vaccine, unspecified formulation Mri Bore/1.5t) [facility] 11-27-2019 influenza virus vaccine, split virus (incl. purified surface antigen) Carmen Conley Other [facility] Other 01-06-2019 influenza, high dose seasonal, preservative-free Mehrdad Aguilar MD Work Phone: [facility] 01-01-2019 influenza virus vaccine, split virus (incl. purified surface antigen) Carmen Conley Other [facility] Other 01-01-2019 influenza virus vaccine, unspecified formulation Mohamad Mouchli [facility] 01-01-2019 Seasonal trivalent influenza vaccine, adjuvanted, preservative free Mehrdad Aguilar MD Work Phone: [facility] 01-13-2018 influenza nasal, unspecified formulation Mehrdad Aguilar MD Work Phone: [facility] 12-17-2017 influenza virus vaccine, unspecified formulation Mohamad Mouchli [facility] 12-17-2017 influenza, high dose seasonal, preservative-free Mehrdad Aguilar MD Work Phone: [facility] 02-05-2017 influenza, high dose seasonal, preservative-free Mehrdad Aguilar MD Work Phone: [facility] 04-09-2016 influenza virus vaccine, unspecified formulation Mohamad Momaximo [facility] 04-09-2016 influenza, injectabl e, quadrivalent, preservative free Mehrdad Aguilar MD Work Phone: [facility] 03-05-2016 influenza, high dose seasonal, preservative-free Mehrdad Aguilar MD Work Phone: [facility] 02-16-2015 influenza, high dose seasonal, preservative-free Mehrdad Aguilar MD Work Phone: [facility] 02-16-2015 pneumococcal conjuga te vaccine, 13 valent Mehrdad Aguilar MD Work Phone: [facility] 02-03-2015 zoster vaccine, live Mehrdad lacey MD Work Phone: [facility] 02-02-2015 influenza, high dose seasonal, preservative-free Mehrdad Aguilar MD Work Phone: [facility] 02-02-2015 pneumococcal conjuga te vaccine, 13 valroque Aguilar MD Work Phone: [facility] 03-24-2014 influenza, injectabl e, quadrivalent, contains preservative Mehrdad Aguilar MD Work Phone: [facility] 01-06-2013 influenza, high dose seasonal, preservative-free Mehrdad Aguilar MD Work Phone: [facility] 01-06-2011 pneumococcal polysaccharide vaccine, 23 valent Mehrdad Aguilar MD Work Phone: [facility] Payers Date Payer Category Payer Self-pay 2020 Private Health Insurance [facility] INDEMNITY [id number] 2020-Present [phone] [address] [place] [address] Indemnity [id number] 2020 Private Health Insurance [id number] 2006 Medicare MEDICARE RAILROA D MEDICARE RAILROAD PB ONLY [id number] 2006-Present [phone] [address] [address] [place] [address] Medicare [id number] 2006 Medicare MEDICARE MEDICAR E A AND B [id number] 2006-Present [phone] [address] [address] [place] [address] Medicare [id number] 2006 Unknown 1959 Medicare [id number] 1959 Private Health Insurance [id number] 2.16.840.1.946501.19 1949 Unknown [id number] 2.16.840.1.509891.3.579. 2.593 1949 Unknown [id number] 2.16.840.1.019508.3.579. 2.593 1949 Unknown [id number] 2.16.840.1.550582.3.579. 2.593 1949 Unknown [id number] 2.16.840.1.414627.3.579. 2.593 1949 Unknown [id number] 2.16.840.1.050607.3.579. 2.593 1949 Unknown [id number] 2.16.840.1.712227.3.579. 2.593 1949 Unknown [id number] 2.16.840.1.771679.3.579. 2.593 1949 Unknown [id number] 2.16.840.1.577165.3.579. 2.593 1949 Unknown [id number] 2.16.840.1.187110.3.579. 2.593 1949 Unknown [id number] 2.16.840.1.708385.3.579. 2.1259 1949 Unknown [id number] 2.16.840.1.924088.3.579. 2.1259 1949 Unknown [id number] 2.16.840.1.007085.3.579. 2.727 1949 Unknown [id number] 2.16.840.1.119449.3.579. 2.727 1949 Unknown [id number] 2.16.840.1.120431.3.579. 2.727 1949 Unknown [id number] 2.16.840.1.872052.3.579. 2.727 1949 Unknown [id number] 2.16.840.1.320841.3.579. 2.727 1949 Unknown [id number] 2.16.840.1.532948.3.579. 2.727 1949 Unknown [id number] 2.16.840.1.652239.3.579. 2.727 1949 Unknown [id number] 2.16.840.1.758400.3.579. 2.727 1949 Unknown [id number] 2.16.840.1.429443.3.579. 2.727 1949 Unknown [id number] 2.16.840.1.806290.3.579. 2.727 1949 Unknown [id number] 2.16.840.1.462576.3.579. 2.727 1949 Unknown [id number] 2.16.840.1.128531.3.579. 2.727 1949 Unknown [id number] 2.16.840.1.243686.3.579. 2.196 1950 Unknown [id number] 1950 Unknown [id number] Unknown [id number] Social History Date Type Detail Facility Start: 08-18-2020 End: 10-08-2023 Tobacco smoking status INIS Never smoked tobacco [facility] Start: 08-18-2020 Tobacco use and exposure Smokeless tobacco non-user [facility] Start: 08-19-2020 End: 09-30-2020 Alcohol intake Ex-drinker (finding) [facility] Start: 1950 Sex Assigned At Not on file [facility] Start: 08-04-2020 End: 08-19-2020 Sex Assigned At [facility] Start: 08-04-2020 End: 08-19-2020 History of Social function [facility] National Score (1-100), lower number is lower risk Not on file [facility] Tobacco smoking status No Smokin g Status Entered [facility] Medical Equipment Procedure Code Equipment Code Equipment Original Text Equi pment Identifier Dates BD Pen Needle Na no U/F 32G X 4 MM Functional Status Date Assessment Result Facility 10-08-2023 Functional Status N/A [facility] 09-05-2023 Functional Status No [facility] 07-24-2023 Functional Status N/A [facility] 07-02-2023 Functional Status N/A [facility] 06-26-2023 Functional Status N/A [facility] 06-21-2023 Functional Status N/A [facility] Clinical Notes 08-19-2020 to 07-03-2023 Note Date & Type Note Facility 07-03-2023 Note [id number] [facility] 07-02-2023 Hospital Discharg e instructions Patient Education 07/02/2023 09:33:43 Endoscopy, Care After Procedure [facility] Endoscopy Care After Procedure Please read [...] blood. Document Released: 11/06/2004 Document Re-Released: 09/16/2006 [facility] Information [employer]. 07/02/2023 09:33:36 Esophagitis Esophagitis Esophagitis is inflammation [...] Follow these instructions at home: Medicines Take cwmc-alu-hbxvuyk and prescription medicines only as told by [...] powder, vinegar, hot sauces, and barbecue sauce. ?[place] fruit juices and citrus fruits, such as oranges, bentley, and limes. ?Tomato-based foods, such as red sauce, chili, salsa, and pizza with red sauce. ?Fried and fatty foods, such as donuts, pitcairn islander fries, potato chips, and high-fat dressings. ?High-fat [...] provider. Document Revised: 10/03/2020 Document Reviewed: 10/03/2020 [employer] Patient Education 2022 [employer]. 07/02/2023 09:33:31 Hiatal Hernia Hiatal Hernia A [...] reduce GERD symptoms. Medicines. These may include: ?Ljep-xwe-cnzsesz antacids. ?Medicines that make your stomach empty [...] may include: ?Fatty foods, like fried foods. ?[place] fruits, like oranges or lemon. ?Other foods [...] Do not drink alcohol. General instructions Take qypb-esw-ijfpntp and prescription medicines only as told by [...] provider. Document Revised: 05/22/2022 Document Reviewed: 05/22/2022 [employer] Patient Education 2022 [employer]eves. Follow Up Care 06/26/2023 13:24:26 With:Rupa CERRATO, ANTIONETTE Luna, [facility] Address: When: Unknown Comments:Call for any problems. The office will reach out in about one week from procedure date. [facility] 07-02-2023 Note Endoscopy Care After Procedure Please [...] Document Re-Released: 09/16/2006 ExitCare? Patient Information ?2009 [employer]. Gastroenterology Esophagitis Esophagitis is inflammation of the [...] these instructions at home: Medicines ? Take avhy-qvy-uqontrj and prescription medicines only as told by your health care provider. ? Do not take aspirin, ibuprofen, or other NSAIDs unless your health care provider told you to do so. ? If you have trouble taking pills: ? Use a pill splitter to decrease the size of the pi (more content not included)... [facility] 06-18-2023 Note Echocardiology Procedure Exam Date/Time Accession # Ordering Dr. Macedo Transthoracic 06/18/2023 08:41 EDT [id number] CARMEN CONLEY MD Complete CPT code 56119 50053 Reason for Exam (Echo Transthoracic Complete) R07.9 Chest pain, unspecified Report [facility] [address] [place] [address] Adult Echocardiogram Report Name: IVELISSE GEE Study Date: 06/18/2023 06:57 AM BP: 117/66 mmHg Patient Location: [facility] HR: 71 : 1950 Gender: Female Height: 60 in Age: 72 yrs Ethnicity: [facility] Weight: 155 lb Reason For [...] GOINS MD Transcribed by: KARYNA Technologist: LE [facility] 05-14-2023 Evaluation note Encounter Date Diagnosis Assessment Notes May, Type 2 diabetes mellitus with hyperglycemia (ICD-10 - E11.65) [facility] Other 12-27-2023 Evaluation note* Encounter Date Diagnosis Assessment Notes Treatment Notes Treatment Clinical Notes Mar, Type 2 diabetes mellitus with hyperglycemia (ICD-10 - E11.65) [facility] Other 12-26-2023 Evaluation note* Encounter Date Diagnosis Assessment Notes Treatment Notes Treatment Clinical Notes Mar, Type 2 diabetes mellitus with hyperglycemia (ICD-10 - E11.65) [facility] Other 12-14-2023 Evaluation note* Encounter Date Diagnosis Assessment Notes Treatment Notes Treatment Clinical Notes Mar, Panic attack (ICD-10 - F41.0) [facility] Other 12-14-2023 Evaluation note* Encounter Date Diagnosis [...] to continue with above medication as directed. [facility] Other 10-19-2023 Evaluation note* Encounter Date Diagnosis [...] normal chest x-ray on January 17 at [facility]. [facility] Other 09-22-2023 Evaluation note* Encounter Date Diagnosis [...] patient is sent home pleased, without concerns. [facility] Other 06-29-2023 Evaluation note* Encounter Date Diagnosis Assessment Notes Treatment Notes Treatment Clinical Notes Sep, Type 2 diabetes mellitus with hyperglycemia (ICD-10 - E11.65) [facility] Other 05-03-2023 Evaluation note* Encounter Date Diagnosis Assessment Notes Treatment Notes Treatment Clinical Notes August, RLQ abdominal pain (ICD-10 - R10.31) [facility] Other 05-02-2023 Evaluation note* Encounter Date Diagnosis Assessment Notes Treatment Notes Treatment Clinical Notes August, RLQ abdominal pain (ICD-10 - R10.31) Acute pain - assess with labs, CT. Discussed differential with pt. [facility] Other 03-15-2023 Evaluation note* Encounter Date Diagnosis [...] as her information was sent last week. [facility] Other 03-07-2023 Evaluation note* Encounter Date Diagnosis Assessment Notes Treatment Notes Treatment Clinical Notes Jun, Dysuria (ICD-10 - R30.0) Jun, Type 2 diabetes mellitus with hyperglycemia (ICD-10 - E11.65) Jun, History of sepsis (ICD-10 - Z86.19) Referral placed to [employer] [facility] as was suggested by Dr. William. [facility] Other 03-07-2023 Evaluation note* Encounter Date Diagnosis Assessment Notes Treatment Notes Treatment Clinical Notes Jun, Dysuria (ICD-10 - R30.0) Jun, Type 2 diabetes mellitus with hyperglycemia (ICD-10 - E11.65) Stop Januvia. Start ozempic for improved glucose control. Jun, History of sepsis (ICD-10 - Z86.19) Referral placed to [employer] [facility] as was suggested by Dr. William. [facility] Other 02-02-2023 Evaluation note* Encounter Date Diagnosis Assessment Notes Treatment Notes Treatment Clinical Notes May, EDU (generalized anxiety disorder) (ICD-10 - F41.1) [facility] Other 02-02-2023 Evaluation note* Encounter Date Diagnosis Assessment Notes Treatment Notes Treatment Clinical Notes May, Panic attack (ICD-10 - F41.0) Discussed stress, medication and health issues. Will refill med started by ER and monitor symptoms. May, Type 2 diabetes mellitus with hyperglycemia (ICD-10 - E11.65) add medication to improve glucose. Pt agrees to consider further referral if needed. [facility] Other 01-13-2023 Evaluation note* Encounter Date Diagnosis [...] antibiotic tomorrow, will check that it cleared. [facility] Other 01-09-2023 Evaluation note* Encounter Date Diagnosis Assessment Notes Treatment Notes Treatment Clinical Notes Apr, Sepsis due to Staphylococcus (ICD-10 - A41.2) Ivelisse feels that the oral antibiotics are not strong enough. Unsure of root cause of staph sepsis/bacteremia . Admitted to [place] for <24h. Requests referral to ID. Tristen concerned that she has immune deficiency or Hep C that she has been septic in the past. Apr, Type 2 diabetes mellitus with hyperglycemia (ICD-10 - E11.65) will continue to hold metformin due to renal labs. Apr, Elevated liver enzymes (ICD-10 - R74.8) Has been to GI in the past [facility] Other 01-05-2023 NotePROGRESS NOTE NOTE DATE: 04/12/2022 [...] Lovenox. DISPOSITION: Home when medically stable.[id number] Note PROCEDURE: XR WRIST RT MIN 3 V, XR FOREARM RT 2V COMPARISON: HISTORY: Pain of right wrist FINDINGS: BONES:No acute fracture or dislocation of the forearm or wrist. I'll degenerative changes with joint space narrowing. SOFT TISSUES:Negative. No visible soft tissue swelling. EFFUSION:None visible. OTHER: Negative. IMPRESSION: Mild degenerative changes No acute abnormality Electronically authenticated by: HAYLEY PARHAM Date: 2022-01-07 11:23[facility]10-02-2022 NotePROCEDURE: XR WRIST RT MIN 3 V, XR FOREARM RT 2V COMPARISON: HISTORY: Pain of right wrist FINDINGS: BONES:No acute fracture or dislocation of the forearm or wrist. I'll degenerative changes with joint space narrowing. SOFT TISSUES:Negative. No visible soft tissue swelling. EFFUSION:None visible. OTHER: Negative. IMPRESSION: Mild degenerative changes No acute abnormality Electronically authenticated by: HAYLEY PARHAM Date: 2022-01-07 11:23[facility]05-06-2022 Miscellaneous Notes* Telephone Encounter - Marta Valero - 08/11/2021 12:13 PM EDT Called patient to reschedule an appointment per patient she no longer see Dr. Aguilar and that she had cancelled appointments last year confirmed with patient that she would like to cancel and did notneed to reschedule. [facility] NoteHNO ID: [id number] Author: Mehrdad Aguilar MD Service: ? Author Type: Physician Type: Progress Notes Filed: 10/02/2020 5:36 PM Note Text: PATIENT NAME: Ivelisse Gee DATE: 09/30/2020 PRIMARY CARE PHYSICIAN: Carmen Conley MD OTHER PHYSICIANS: Dr. Wahl (PCP [place], [place]), Dr. Magdaleno Castillo ([facility]) Portions of this encounter note have [...] extremities and face. Negative (more content not included)...[facility]06-16-2021 NoteHNO ID: [id number] Author: RT aNncie(R) Service: ? Author Type: Maintenance Associate Type: Progress Notes Filed: 09/21/2020 11:30 AM [...] Gee DATE: September 21, 2020 TIME: 11:28 [facility]06-16-2021 NoteHNO ID: [id number] Author: RT Nancie(Bushra) Service: ? Author Type: Maintenance Associate Type: Progress Notes Filed: 09/21/2020 11:26 AM [...] Gee DATE: September 21, 2020 TIME: 11:18 [facility]05-25-2021 NoteHNO ID: [id number] Author: RT Akhil(R) Service: ? Author Type: Maintenance Associate Type: Progress Notes Filed: 08/30/2020 11:31 AM Note Text: Radiology Service Progress Note PATIENT NAME: vIelisse Gee DATE OF SERVICE: August 30, 2020 [...] BY: RT Akhil(R) August 30, 2020 11:30 [facility]05-14-2021 NoteHNO ID: [id number] Author: Mehrdad Aguilar MD Service: ? Author Type: Physician Type: Progress Notes Filed: 08/20/2020 1:40 PM Note Text: PATIENT NAME: Ivelisse Gee DATE: 08/19/2020 PRIMARY CARE PHYSICIAN: Carmen Conley MD OTHER PHYSICIANS: Dr. Wahl ((PCP [place], [place]) HPI: This is a 70 year [...] requiring hospitalization, most recently while residing in [place] in June 2020. During her recent hospitalization labs revealed persistent thrombocytopenia with a platelet count ranging from 80-90,000. The patient is currently referred for evaluation of her abnormal CBC. Since the patient's hospitalization she started mmca-twm-fxaimav supplements including multivitamin. She has had no [...] EXAM: Well developed/well n (more content not included)...[facility] Future App[facility]ments Appointment Date:06/21/2023 01:30:00 PM Scheduled Provider:Karmen CERRATO, Deonte Roth [facility] [place] Appointment Type:Cardiology New Patient () Appointment Date:06/26/2023 12:30:00 PM Scheduled Provider:Shaun Goode MD Location:[facility] App[facility]ment Type[facility] Future Appointments Appointment Date:06/26/2023 12:30:00 PM Scheduled Provider:Shaun Goode MD Location:[facility] Appointment Type:BADH New Patient Appointment Date:08/22/2023 02:00:00 PM Scheduled Provider:Deonte Peraza MD Location[facility] Clinic Appointment Type:Cardiology Follow Up (FT) Future Scheduled Tests Radiology* NM Myocardial Spect Rest/Stress 1 Day 06/21/23 [facility] Future Appointments Appointment Date:07/02/2023 09:45:00 AM Scheduled Provider: Location:[facility] Appointment Type:Surgery FT Appointment Date:08/22/2023 02:00:00 PM Scheduled Provider:Deonte Peraza MD [facility] Type:Cardiology Follow Up (FT) Future Scheduled Tests Radiology* NM Myocardial Spect Rest/Stress 1 Day 06/21/23 [facility] Evaluation + Plan note Future Appointments Appointment Date:07/02/2023 09:45:00 AM Scheduled Provider: Location:[facility] Appointment Type:Surgery FT Appointment Date:08/22/2023 02:00:00 PM Scheduled Provider:Deonte Peraza MD [facility] Type:Cardiology Follow Up (FT) Diagnostic Tests Pending * Alpha Fetoprotein Tumor Marker 06/26/23 Future Scheduled Tests Radiology* NM Myocardial Spect Rest/Stress 1 Day 06/21/23 [facility] Future Appointments Appointment Date:08/22/2023 02:00:00 PM Scheduled Provider:Deonte Peraza MD Location[facility] Clinic Appointment Type:Cardiology Follow Up (FT) Future Scheduled Tests Radiology* NM Myocardial Spect Rest/Stress 1 Day 06/21/23 [facility] Future Appointments Appointment Date:08/05/2023 08:00:00 AM Scheduled Provider: [facility] Appointment Type:NM Myocard Spect Multi Rest/Stress-Res Appointment Date:08/05/2023 09:00:00 AM Scheduled Provider: [facility] Appointment Type:NM Myocard Spect Multi Rest/Stress - R Appointment Date:08/05/2023 09:30:00 AM Scheduled Provider: [facility] Appointment Type:NM Myocard Spect Multi Rest/Stress-Str Appointment Date:08/05/2023 10:30:00 AM Scheduled Provider: [facility] Appointment Type:NM Myocar Spect Multi Rest/Stress - St Appointment Date:08/05/2023 11:00:00 AM Scheduled Provider: [facility] Appoint[facility] Type:CV Holter/Event (FT) Appointment Date:08/06/2023 10:30:00 AM Scheduled Provider: [facility] Appointment Type:US Abdominal/Pelvis (FT) Appointment Date:08/22/2023 02:00:00 PM Scheduled Provider:Deonte Peraza MD [facility] Type:Cardiology Follow Up (FT) Appointment Date:01/08/2024 12:15:00 PM Scheduled Provider:Shaun Goode MD Location:[facility] Appointment Type:[facility] Follow Up Future Scheduled Tests Laboratory* Alpha Fetoprotein Tumor Marker 07/24/23 * Alpha Fetoprotein Tumor Marker 01/23/24 * CBC w/ Auto Diff 07/24/23 * CBC w/ Auto Diff 01/23/24 * Comprehensive Metabolic Panel 07/24/23 * Comprehensive Metabolic Panel 01/23/24 * PT 07/24/23 * PT 01/23/24 Radiology* NM Myocardial Spect Rest/Stress 1 Day 08/05/23 * US Liver 08/06/23 [facility] Evaluation + Plan note Future Appointments Appointment Date:08/15/2023 09:00:00 AM Scheduled Provider: [facility] Appointment Type:NM Myocard Spect Multi Rest/Stress-Res Appointment Date:08/15/2023 10:00:00 AM Scheduled Provider: [facility] Appointment Type:NM Myocard Spect Multi Rest/Stress - R Appointment Date:08/15/2023 10:30:00 AM Scheduled Provider: [facility] Appointment Type:NM Myocard Spect Multi Rest/Stress-Str Appointment Date:08/15/2023 11:30:00 AM Scheduled Provider: [facility] Appointment Type:NM Myocar Spect Multi Rest/Stress - St Appointment Date:08/27/2023 01:00:00 PM Scheduled Provider:Dontae Hernández PA-C [facility]ointment Type:Cardiology Follow Up (FT) Appointment Date:01/08/2024 12:15:00 PM Scheduled Provider:Shaun Goode MD Location:[facility] Appointment Type:BADH Follow Up Future Scheduled Tests Laboratory* Alpha Fetoprotein Tumor Marker 07/24/23 * Alpha Fetoprotein Tumor Marker 01/23/24 * CBC w/ Auto Diff 07/24/23 * CBC w/ Auto Diff 01/23/24 * Comprehensive Metabolic Panel 07/24/23 * Comprehensive Metabolic Panel 01/23/24 * PT 07/24/23 * PT 01/23/24 Radiology* NM Myocardial Spect Rest/Stress 1 Day 08/15/23 * US Liver 08/16/23 [facility] Future Appointments Appointment Date:08/27/2023 01:00:00 PM Scheduled Provider:Dontae Hernández PA-C [facility] Appointment Type:Cardiology Follow Up (FT) Appointment Date:01/08/2024 12:15:00 PM Scheduled Provider:Shaun Goode MD Location:[facility] Appointment Type:BAD Follow Up Future Scheduled Tests Laboratory* Alpha Fetoprotein Tumor Marker 07/24/23 * Alpha Fetoprotein Tumor Marker 01/23/24 * CBC w/ Auto Diff 07/24/23 * CBC w/ Auto Diff 01/23/24 * Comprehensive Metabolic Panel 07/24/23 * Comprehensive Metabolic Panel 01/23/24 * PT 07/24/23 * PT 01/23/24 Radiology* US Liver 08/16/23 [facility] Future Appointments Appointment Date:10/08/2023 01:45:00 PM Scheduled Provider:Dontae Hernández PA-C [facility] Appoint[facility] Type:Cardiology Follow Up (FT) Appointment Date:01/08/2024 12:15:00 PM Scheduled Provider:Shaun Goode MD Location:[facility] Appointment Type:BADH Follow Up Future Scheduled Tests Laboratory* Alpha Fetoprotein Tumor Marker 07/24/23 * Alpha Fetoprotein Tumor Marker 01/23/24 * CBC w/ Auto Diff 07/24/23 * CBC w/ Auto Diff 01/23/24 * Comprehensive Metabolic Panel 07/24/23 * Comprehensive Metabolic Panel 01/23/24 * PT 07/24/23 * PT 01/23/24 Radiology* NM Myocardial Spect Rest/Stress 1 Day 09/06/23 * US Liver 08/16/23 [facility] Future Appointments Appointment Date:10/08/2023 01:45:00 PM Scheduled Provider:Dontae Hernández PA-C [facility] Type:Cardiology Follow Up (FT) Appointment Date:01/08/2024 12:15:00 PM Scheduled Provider:Shaun Goode MD Location:[facility] Appointment Type:[facility] Follow Up Future Scheduled Tests Laboratory* Alpha Fetoprotein Tumor Marker 07/24/23 * Alpha Fetoprotein Tumor Marker 01/23/24 * CBC w/ Auto Diff 07/24/23 * CBC w/ Auto Diff 01/23/24 * Comprehensive Metabolic Panel 07/24/23 * Comprehensive Metabolic Panel 01/23/24 * PT 07/24/23 * PT 01/23/24 Radiology* US Liver 08/16/23 [facility] Future Appointments Appointment Date:01/08/2024 12:15:00 PM Scheduled Provider:Shaun Goode MD Location:[facility] Appointment Type:[facility] Follow Up Appointment Date:04/14/2024 01:00:00 PM Scheduled Provider:Dontae Hernández PA-C [facility] Type:Cardiology Follow Up (FT) Future Scheduled Tests Laboratory* Alpha Fetoprotein Tumor Marker 07/24/23 * Alpha Fetoprotein Tumor Marker 01/23/24 * CBC w/ Auto Diff 07/24/23 * CBC w/ Auto Diff 01/23/24 * Comprehensive Metabolic Panel 07/24/23 * Comprehensive Metabolic Panel 01/23/24 * PT 07/24/23 * PT 01/23/24 Radiology* US Liver 08/16/23 [facility] noteNo InformationNort Buz Other Evaluation note* Diagnosis Thrombocytopenia (HCC) Thrombocytopenia, unspecified 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 documented in this encounter [facility] general Narrative - Reported* Type Description [...] History septic shock Hospitalization History Sepsis 07/07/2020 [facility] [employer] general Narrative - Reported* Type Description Date [...] History septic shock Hospitalization History Sepsis 07/07/2020 [facility] Other history general Narrative - Reported* Type [...] Sepsis 07/07/2020 Hospitalization History Covid positive 01/17/23 [facility] Other Hospital course Narrative No data available for this section [facility] No data available for this section [facility] No data available for this section [facility] Summary Purpose Family History No Family History [...] Callahan - will scan in reports from 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 [place],[address] Referred Provider Specialty Infectious D isease Referral Priority Routine General Notes Itzel Parekh 03:10:38 PM >received today, labs, and notes attached, locked and faxed P2P Itzel Parekh 04/18/2022 10:54:24 AM >per Dr. Callahan pt does not need to be seen to treat Reason 06/11/22 Labs pend ing, has fibro. strong family history of autoimmune issues. Diagnosis 1 Myalgia (M79.10) Referral Organization [facility] [employer] Referring Provider First Name Carmen Referring Provider Last Name Conley Referring Provider Specialty [facility] Referred Organization [facility] Referred Provider Daniel Gomez Referred Address [address] [place],[address] Referred Provider Specialty Rheumatology Referral Priority Routine Referral Appointment Date 2022-06-11 General Notes Itzel Parekh 03:45:56 PM >received today, labs pending. ins card attached, notes locked and referral faxed Itzel Parekh 04/27/2022 10:22:51 AM >faxed first attempt letter Itzel Parekh 04/30/2022 02:17:43 PM >received fax with appt date and time Reason 06/28/22 Pt wants to see the [employer] in [facility] - phone is [phone]. Please send same info that was sent to the referral for Dr. Gomez. Thanks Diagnosis 1 Dysuria (R30.0) Referral Organization [facility] [employer] Referring Provider First Name Carmen Referring Provider Last Name Conley Referring Provider Specialty [facility] [employer] Referred Organization Unknown Facility Referred Provider Specialty Immunology Referral Priority Routine Referral Appointment Date 2022-06-28 General Notes Itzel Parekh 11:00:51 AM >received today, attachments made, notes locked, referral faxed Itzel Parekh 06/20/2022 01:01:04 PM >faxed first attempt letter Itzel Parekh 06/21/2022 08:59:47 AM >RECEIVED FAX WITH APPT DATE AND TIME Clinical Notes p: [phone] f: [phone] Reason 06/28/22 Pt wants to see the [employer] in [facility] - phone is [phone]. Please send same info that was sent to the referral for Dr. Gomez. Thanks Diagnosis 1 Dysuria (R30.0) Referral Organization [facility] [employer] Referring Provider First Name Carmen Referring Provider Last Name Conley Referring Provider Specialty [facility] Referred Organization Unknown Facility Referred Provider Specialty [...] for review. Closing referral Clinical Notes p: [phone] f: [phone] Additional Source Comments INFORMATION SOURCE (unrecogn ized section and content) DATE CREATED AUTHOR 02/05/2021 [facility] DATE CREATED AUTHOR AUTHOR'S ORGANIZ ATION 08/12/2021 [facility] DATE CREATED AUTHOR AUTHOR'S ORGANIZ ATION 07/28/2022 [facility] DATE CREATED AUTHOR AUTHOR'S ORGANIZ ATION 08/16/2022 [facility] DATE CREATED AUTHOR AUTHOR'S ORGANIZ ATION 04/17/2023 [facility] EPIC DATE CREATED AUTHOR AUTHOR'S ORGANIZ ATION 10/09/2023 [facility] DATE CREATED AUTHOR AUTHOR'S ORGANIZ ATION 12/22/2023 [facility] Source Comments (unrecognize d section and content) In the event this informatio n is protected by the Federal Confidentiality of Alcohol and Drug Abuse Patient Records regulations: The Federal rules restrict any use of the information to criminally investigate or prosecute any alcohol or drug abuse patient.[facility] the event this information is protected by the Federal Confidentiality of Alcohol and Drug Abuse Patient Records regulations: The Federal rules restrict any use of the information to criminally investigate or prosecute any alcohol or drug abuse patient.[facility] Reason for Visit (unrecogniz ed section and content) Reason Comments Appointment Care Teams (unrecognized sec tion and content) 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 [employer] [facility]. provides no warranty or guarantee of the accuracy or completeness of information in this document.
[2024-01-06 09:18] VITALS: BP 135/88; PULSE 104; TEMP 36.2; O2SAT 97
[2024-01-06 09:33] LABS: Glucometer 187 mg/dL (74-106)
[2024-01-06 09:56] VITALS: BP 126/65; PULSE 90; O2SAT 94
[2024-01-06 10:00] VITALS: BP 130/70; PULSE 96; O2SAT 96
[2024-01-06] MEDS: IOHEXOL 240 MG/ML - 10 ML VIAL 12 MG INJ (10:01)
[2024-01-06] MEDS: BUPIVACAINE HCL 0.25% PF 25 MG/10 ML VIAL 2 ML INJ (10:01)
[2024-01-06] MEDS: TRIAMCINOLONE ACETONIDE 40 MG/ML VIAL INJ (10:02)
[2024-01-06] MEDS: LIDOCAINE HCL 2% 400 MG/20 ML MDV INJ (10:02)
--- NOTE | 2024-01-06 10:02 | W.PM.PROCNOT ---
Date of procedure: 01/06/24 Pre-op diagnosis: Pain due to right sacroiliitis Post-op diagnosis: same as pre-op Procedure: Procedure: Right sacroiliac joint injection Medications: Bupivacaine 0.25% 3cc, kenalog 40mg After informed consent was obtained, the patient was brought to the medical procedure unit and placed in the prone position, when a timeout was completed verifying correct patient, procedure, site, positioning, implant, and/or special equipment.? The skin overlying the area was prepped and draped in standard sterile fashion using alcohol.? A 25-gauge needle was inserted towards the right sacroiliac joint under direct fluoroscopic imaging.? Needle tip was advanced until the joint was encountered.? We instilled a total of 2 mL of solution.? Postoperatively needles were removed.? The patient tolerated the procedure well without complication.? The patient reported reduction in pain symptoms postoperatively. Anesthesia: Local Surgeon: Nohemy Mohamud Pathology: none sent Condition: stable Disposition: no change
== END 2024-01-06 10:04 | disposition home or self-care (01) ==
LOC: SURGOUT 08:43
PROVIDERS: PCP Family Medicine; Visit Provider Anesthesiology
DX: M46.1 Sacroiliitis, not elsewhere classified (principal); Z79.899 Other long term (current) drug therapy
CPT/HCPCS: 27096; 36415; 82948; J0665; J3301; Q9966

== ENCOUNTER 2024-01-14 12:26 | Outpatient (OUT) | payer MEDICARE, OTHER, SELFPAY ==
--- NOTE | 2024-01-14 12:32 | CT_ITS ---
The [address] [address] Patient Name: EDWARD GEE MRN: [facility]:[id number] date: 1950 Sex: F Assigned Patient Location: CT Current Patient Location: Accession/Order Number: [id number] Exam Date: 01/14/2024 12:50 Report Date: 01/15/2024 04:57 At the request of: CARMEN CONLEY Procedure: CT soft tissue neck w con EXAMINATION: CT soft tissue neck w con HISTORY: cervical lymphadenitis ; difficulty swallowing; laryngitis x6 weeks COMPARISON: No relevant comparison available. TECHNIQUE: Axial, Coronal, and Sagittal CT images created with IV contrast. Dose reduction techniques were achieved by using automated exposure control and/or adjustment of mA and/or kV according to patient size and/or use of iterative reconstruction technique. FINDINGS: NASOPHARYNX: No asymmetry of the fossae of Rosenmuller and torus tubarius. ORAL CAVITY: No visible mass. OROPHARYNX: No asymmetry of the facial and lingual tonsils. HYPOPHARYNX: No mass or other visible lesion. LARYNX: No mass or asymmetry of the vocal cords. SINUSES: No significant fluid or mucosal thickening. NECK GLANDS: No visible abnormality of the parotid, submandibular, and thyroid glands. LYMPH NODES: No pathological-appearing or enlarged lymph nodes. VASCULATURE: No suspicious abnormality. BONES: No significant osseous lesions. OTHER: No additional imaging findings. CT/CT soft tissue neck w con IMPRESSION: 1. No appreciable soft tissue swelling, abscess, or lymphadenopathy. Electronically authenticated by: JAZMINE DODSON Date: 01/15/2024 04:57
== END 2024-01-14 12:27 | disposition home or self-care (01) ==
LOC: CT 12:26
PROVIDERS: PCP Family Medicine; Visit Provider Family Medicine
DX: I88.9 Nonspecific lymphadenitis, unspecified (principal)
CPT/HCPCS: 70491; Q9967

== ENCOUNTER 2024-09-15 12:58 | Outpatient (RCR) | payer MEDICARE, OTHER, SELFPAY | END 2024-10-02 13:59 | disposition home or self-care (01) | LOC: PT 12:58 | PROVIDERS: PCP Family Medicine; Visit Provider Family Medicine | DX: M79.7 Fibromyalgia (principal) | CPT/HCPCS: 97110; 97113; 97140; 97162; G0283 ==

== ENCOUNTER 2024-09-25 16:19 | Outpatient (OUT) | payer MEDICARE, OTHER, SELFPAY ==
[2024-09-25 17:08] LABS: Calcium 8.9 mg/dL (8.5-10.1); Thyroid Stimulating Hormone 0.544 uIU/mL (0.358-3.740)
[2024-09-25 17:39] LABS: Free T4 1.12 ng/dL (0.76-1.46)
[2024-09-27 10:11] LABS: PTH, Intact 38 pg/mL (15-65)
== END 2024-09-25 16:20 | disposition home or self-care (01) ==
PROVIDERS: PCP Family Medicine; Visit Provider Family Medicine
DX: E07.9 Disorder of thyroid, unspecified (principal)
CPT/HCPCS: 36415; 82310; 83970; 84439; 84443

== ENCOUNTER 2024-10-29 14:16 | Emergency (ER) | payer MEDICARE, OTHER, SELFPAY ==
[2024-10-29 14:25] VITALS: BP 122/80; PULSE 96; TEMP 36.9; O2SAT 97; BMI 27.2
--- NOTE | 2024-10-29 14:41 | ED.GENADUL1 ---
HPI HPI - General Adult General Chief complaint: Abdominal Pain Stated complaint: FLANK PAIN Time Seen by Provider: 10/29/24 14:21 Source: patient and family Mode of arrival: walk-in Limitations: no limitations History of Present Illness HPI narrative: Patient presents with 6-day history of right upper quadrant and back pain. Patient does have history of liver cysts and pancreatitis. Has history of cholecystectomy. Patient has been evaluated for esophagitis and reflux in the past states medications have not been helping with exception of Mobic which she is not currently taking. Was sent from primary care. They also note 9 pound weight loss in 1 week primary care mentions patient complaining of throat swelling upon further questioning patient states that when she becomes upset it feels like her throat is closing she has not had the symptoms in over a month. Patient states food worsens her symptoms she is eating popsicles without pain. Symptoms are moderate in severity. Patient denies any fever, chills, nausea, vomiting, chest pain, urinary bleeding, dysuria, diarrhea, rectal bleeding last bowel movement was 2 days ago. Onset (ago): day(s) Location: Reports back and abdomen Radiation: Reports back Severity: moderate Quality: Reports sharp Relieving factors: Denies eating Exacerbating factors: Reports eating Associated symptoms: Reports denies other symptoms; Denies nausea/vomiting Treatments prior to arrival: Reports none Related Data Home Medications ?Medication ?Instructions ?Recorded ?Confirmed benazepril 20 mg tablet 20 mg PO DAILY 01/17/23 10/29/24 citalopram 40 mg tablet (Celexa) 40 mg PO DAILY 01/17/23 10/29/24 levothyroxine 50 mcg tablet 50 mcg PO DAILY 01/17/23 10/29/24 (Euthyrox) Held on 10/29/24. Instructions: Doctor's Order trazodone 50 mg tablet 50 mg PO DAILY 01/17/23 01/06/24 atorvastatin 10 mg tablet 10 mg PO QPM 05/25/23 10/29/24 lorazepam 0.5 mg tablet (Ativan) 0.25 mg PO DAILY PRN anxiety 10/28/23 01/06/24 metoprolol tartrate 25 mg tablet 25 mg PO DAILY 10/28/23 01/06/24 pantoprazole 40 mg tablet,delayed 40 mg PO DAILY 10/28/23 10/29/24 release tizanidine 4 mg capsule 4 mg PO DAILY 10/28/23 01/06/24 famotidine 20 mg tablet 20 mg PO .at bedtime 10/29/24 10/29/24 levothyroxine 25 mcg tablet 25 mcg PO DAILY 10/29/24 10/29/24 meloxicam 15 mg tablet 15 mg PO DAILY 10/29/24 10/29/24 semaglutide 1 mg/dose (4 mg/3 mL) mg subcut 10/29/24 subcutaneous pen injector (Ozempic) trazodone 100 mg tablet 100 mg PO .at bedtime 10/29/24 10/29/24 Allergies Allergy/AdvReac Type Severity Reaction Status Date / Time adhesive tape Allergy Unknown Rash Verified 10/29/24 14:28 Sulfa (Sulfonamide Allergy Unknown Rash Verified 10/29/24 14:28 Antibiotics) Opioid HPI Opioid Management Most Recent Opioid Data: Last Pain Scale 8 Today, 21:18 Review of Systems ROS Status of ROS 10 or more systems reviewed and unremarkable except as noted in history and below Constitutional Reports: change in weight; Denies: fever or chills Ears, nose, mouth, and throat Denies: throat pain, neck pain, throat swelling, difficulty swallowing or hoarseness Cardiovascular Denies: chest pain or palpitations Respiratory Denies: cough or wheezing Gastrointestinal Reports: abdominal pain; Denies: nausea or vomiting Genitourinary Denies: painful urination, urinary frequency or blood in urine Musculoskeletal Reports: back pain and extremity pain; Denies: neck pain Integumentary/Breast Denies: rash Psychiatric Denies: difficulty concentrating Hematologic/Lymphatic Denies: easy bruising Allergic/Immunologic Denies: throat swelling [facility] Medical History (Updated 10/29/24 @ 19:38 by SANTO VILLALBA II) Sjogren syndrome ?M35.00 - Sjogren syndrome, unspecified (ICD-10) Hypothyroidism ?E03.9 - Hypothyroidism, unspecified (ICD-10) Low back pain ?M54.50 - Low back pain, unspecified (ICD-10) High cholesterol ?E78.00 - Pure hypercholesterolemia, unspecified (ICD-10) Cystocele with rectocele ?N81.10 - Cystocele, unspecified (ICD-10) ?N81.6 - Rectocele (ICD-10) Rheumatoid arthritis ?M06.9 - Rheumatoid arthritis, unspecified (ICD-10) Fibromyalgia ?M79.7 - Fibromyalgia (ICD-10) Anxiety ?F41.9 - Anxiety disorder, unspecified (ICD-10) Acid reflux ?K21.9 - Gastro-esophageal reflux disease without esophagitis (ICD-10) Diabetes ?E11.9 - Type 2 diabetes mellitus without complications (ICD-10) Cirrhosis of liver ?K74.60 - Unspecified cirrhosis of liver (ICD-10) High blood pressure ?I10 - Essential (primary) hypertension (ICD-10) Irregular heart beat ?I49.9 - Cardiac arrhythmia, unspecified (ICD-10) Surgical History H/O bladder repair surgery ?Z98.890 - Other specified postprocedural states (ICD-10) History of cholecystectomy ?Z90.49 - Acquired absence of other specified parts of digestive tract (ICD-10) H/O: hysterectomy ?Z90.710 - Acquired absence of both cervix and uterus (ICD-10) H/O arthroscopy of shoulder ?Z98.890 - Other specified postprocedural states (ICD-10) History of tonsillectomy and adenoidectomy ?Z90.89 - Acquired absence of other organs (ICD-10) Social History Smoking status: Never smoker Little interest or pleasure in doing things: not at all Feeling down, depressed, or hopeless: not at all Exam Constitutional Vital Signs, click to edit/add: Last Vital Signs Temp 98.5 F 10/29/24 14:25 Pulse 96 H 10/29/24 14:25 Resp 18 10/29/24 14:25 BP 122/80 10/29/24 14:25 Pulse Ox 97 10/29/24 14:25 O2 Del Method Room Air 10/29/24 14:25 Documenting provider has reviewed patient's vital signs: yes Common normals: oriented x3 General appearance: cooperative Nutritional appearance: not cachectic Orientation/consciousness: Yes awake HENMT Common normals: normocephalic Face and sinus: normal facial exam Nose: external nose normal General ear: hearing not grossly impaired External ear: external ears normal Eye Common normals: PERRL and EOMs intact bilaterally Neck & C-Spine Common normals: full ROM and supple General: normal visual inspection Cervical spine: cervical ROM normal Chest Common normals: inspection of chest normal Chest: symmetrical chest wall rise; no crepitus and no localized rib tenderness with anteroposterior compression Respiratory Common normals: normal respiratory effort Effort & inspection: able to speak in complete sentences Auscultation: clear to auscultation bilaterally Cardio Common normals: regular rate, regular rhythm, S1 normal heart sound and S2 normal heart sound GI Common normals: tender Auscultation: normoactive bowel sounds Palpation: soft, tender and guarding Bladder/kidney exam: no CVA tenderness (Paralumbar tenderness) Back & Pelvis Common normals: CVA tenderness General back: CVA tenderness Extremity Common normals: normal to inspection General: no edema Neuro Common normals: oriented x3 and moves all extremities Sensorium/orientation: awake and alert Psych Common normals: mental status grossly normal and thought process normal Appearance: grossly normal Course Vital Signs Vital signs: Vital Signs Temperature 98.5 F 10/29/24 14:25 Pulse Rate 96 H 10/29/24 14:25 Respiratory Rate 18 10/29/24 14:25 Blood Pressure 122/80 10/29/24 14:25 Pulse Oximetry 97 10/29/24 14:25 Oxygen Delivery Method Room Air 10/29/24 14:25 Temperature 98.5 F 10/29/24 14:25 Pulse Rate 96 H 10/29/24 14:25 Respiratory Rate 18 10/29/24 14:25 Blood Pressure 122/80 10/29/24 14:25 Pulse Oximetry 97 10/29/24 14:25 Oxygen Delivery Method Room Air 10/29/24 14:25 Medical Decision Making [facility] Narrative Medical decision making narrative: 6-day history of right upper quadrant and flank pain. Sent by primary care. Patient denies any throat swelling or diaphoresis in over a month. Patient been seen by GI and has another appointment GI on Saturday. She has history of cholecystectomy but also has history of pancreatitis. Will add CBC CMP lipase urinalysis magnesium 0.9% saline 500 mL over 1 hour Dilaudid 0.5 mg IV Zofran IV. Discussed plan of care patient agreeable plan of care.Gino at [place] he recommends transfer to facility that has capacity for MRI and ERCP discussed with [facility] we do not have capability for ERCP at file as per Dr. Solomon. Transfer to [facility] in [place]. Discussed with SANTO Goldstein he accepts patient for/ DR ambrocio / they refused patient unable to perform ERCP discussed with [facility] Dr. butts states he can do ERCP if needed . Audelia Winters, SUSSY accepts patient service Lab Data Labs: Lab Results 10/29/24 10/29/24 10/29/24 Range/Units 14:30 16:40 17:40 WBC 12.5 H (4.0-11.0) 10^3/uL RBC 4.73 (4.20-5.40) 10^6/uL Hgb 15.3 (12.0-16.0) g/dL Hct 42.8 (36.0-48.0) % MCV 90.5 (81.0-99.0) fL MCH 32.3 (26.7-34.0) pg MCHC 35.7 H (29.9-35.2) g/dL RDW 12.1 (11.0-15.0) % Plt Count 239 (150-450) 10^3/uL MPV 9.8 (9.5-13.5) fL Seg Neuts % (Manual) 48.0 (43.0-75.0) Lymphocytes % (Manual) 47.0 (20.5-60.0) % Monocytes % (Manual) 3.0 (1.7-12.0) % Eosinophils % (Manual) 2.0 (0.9-7.0) % Basophils % (Manual) 0.0 L (0.2-2.0) % Neutrophils # (Manual) 6.00 (1.4-6.5) 10^3/uL Lymphocytes # (Manual) 5.87 H (1.20-3.80) 10^3/uL Monocytes # (Manual) 0.37 (0.30-0.80) 10^3/uL Eosinophils # (Manual) 0.25 (0.00-0.70) 10^3/uL Basophils # (Manual) 0.00 (0.00-0.10) 10^3/uL Sodium 139 (136-145) mmol/L Potassium 3.9 (3.5-5.1) mmol/L Chloride 100 (98-107) mmol/L Carbon Dioxide 24.5 (21.0-32.0) mmol/L Anion Gap 18.4 BUN 11.0 (7.0-18.0) mg/dL Creatinine 1.05 H (0.55-1.02) mg/dL Est GFR ( Amer) >60 (>=60 mL/min/1.73m^2) Est GFR (Non-Af Amer) 51 L (>=60 mL/min/1.73m^2) BUN/Creatinine Ratio 10.5 Glucose 173 H (74-106) mg/dL Lactate 2.2 H* (0.4-2.0) mmol/L Calcium 9.8 (8.5-10.1) mg/dL Magnesium 1.9 (1.8-2.4) mg/dL Total Bilirubin 1.6 H (0.2-1.0) mg/dL AST 34 (15-37) U/L ALT 52 (14-59) U/L Alkaline Phosphatase 94 (46-116) U/L Total Protein 8.4 H (6.4-8.2) g/dL Albumin 4.5 (3.4-5.0) g/dL Globulin 3.9 g/dL Albumin/Globulin Ratio 1.2 Lipase 73.0 (16.0-77.0) U/L Urine Color Lt. yellow (YELLOW) Urine Clarity Sl cloudy (CLEAR) Urine pH 6.5 (5.0-9.0) Ur Specific [place] <=1.005 A (1.005-1.025) Urine Protein Negative (NEG/TRACE) mg/dL Urine Glucose (UA) Negative (NEGATIVE) mg/dL Urine Ketones Negative (NEGATIVE) mg/dL Urine Occult Blood Negative (NEGATIVE) Urine Nitrite Negative (NEGATIVE) Urine Bilirubin Negative (NEGATIVE) Urine Urobilinogen 0.2 (0.2-1.0) EU/dL Ur Leukocyte Esterase Small A (NEGATIVE) Urine RBC 0-2 (0-2) #/HPF Urine WBC 5-10 A (NONE SEEN) #/HPF Ur Squamous Epith Cells Few A (NONE/RARE) #/LPF Urine Crystals None seen (None Seen) #/HPF Urine Bacteria Moderate A (NONE SEEN) #/HPF Urine Casts None seen (NONE SEEN) #/LPF Urine Mucus None seen (NONE SEEN) Ur Culture Indicated? Yes-[facility] 10/29/24 Range/Units 19:36 WBC (4.0-11.0) 10^3/uL RBC (4.20-5.40) 10^6/uL Hgb (12.0-16.0) g/dL Hct (36.0-48.0) % MCV (81.0-99.0) fL MCH (26.7-34.0) pg MCHC (29.9-35.2) g/dL RDW (11.0-15.0) % Plt Count (150-450) 10^3/uL MPV (9.5-13.5) fL Seg Neuts % (Manual) (43.0-75.0) Lymphocytes % (Manual) (20.5-60.0) % Monocytes % (Manual) (1.7-12.0) % Eosinophils % (Manual) (0.9-7.0) % Basophils % (Manual) (0.2-2.0) % Neutrophils # (Manual) (1.4-6.5) 10^3/uL Lymphocytes # (Manual) (1.20-3.80) 10^3/uL Monocytes # (Manual) (0.30-0.80) 10^3/uL Eosinophils # (Manual) (0.00-0.70) 10^3/uL Basophils # (Manual) (0.00-0.10) 10^3/uL Sodium (136-145) mmol/L Potassium (3.5-5.1) mmol/L Chloride (98-107) mmol/L Carbon Dioxide (21.0-32.0) mmol/L Anion Gap BUN (7.0-18.0) mg/dL Creatinine (0.55-1.02) mg/dL Est GFR ( Amer) (>=60 mL/min/1.73m^2) Est GFR (Non-Af Amer) (>=60 mL/min/1.73m^2) BUN/Creatinine Ratio Glucose (74-106) mg/dL Lactate 0.8 (0.4-2.0) mmol/L Calcium (8.5-10.1) mg/dL Magnesium (1.8-2.4) mg/dL Total Bilirubin (0.2-1.0) mg/dL AST (15-37) U/L ALT (14-59) U/L Alkaline Phosphatase (46-116) U/L Total Protein (6.4-8.2) g/dL Albumin (3.4-5.0) g/dL Globulin g/dL Albumin/Globulin Ratio Lipase (16.0-77.0) U/L Urine Color (YELLOW) Urine Clarity (CLEAR) Urine pH (5.0-9.0) Ur Specific [place] (1.005-1.025) Urine Protein (NEG/TRACE) mg/dL Urine Glucose (UA) (NEGATIVE) mg/dL Urine Ketones (NEGATIVE) mg/dL Urine Occult Blood (NEGATIVE) Urine Nitrite (NEGATIVE) Urine Bilirubin (NEGATIVE) Urine Urobilinogen (0.2-1.0) EU/dL Ur Leukocyte Esterase (NEGATIVE) Urine RBC (0-2) #/HPF Urine WBC (NONE SEEN) #/HPF Ur Squamous Epith Cells (NONE/RARE) #/LPF Urine Crystals (None Seen) #/HPF Urine Bacteria (NONE SEEN) #/HPF Urine Casts (NONE SEEN) #/LPF Urine Mucus (NONE SEEN) Ur Culture Indicated? Discharge Plan Discharge Chief Complaint: Abdominal Pain Clinical Impression: Abdominal pain, acute, right upper quadrant, Acute flank pain, Elevated bilirubin, Elevated lactic acid level Patient Disposition: [facility] Mode of Transportation: EMS
[2024-10-29] MEDS: 0.9 % SODIUM CHLORIDE 500 ML IV (14:49)
[2024-10-29] MEDS: HYDROMORPHONE HCL 0.5 MG/0.5 ML SYRINGE IV ×2 (14:50→15:43)
[2024-10-29 14:55] LABS: Hematocrit 42.8 % (36.0-48.0); Hemoglobin 15.3 g/dL (12.0-16.0); Mean Corpuscular HGB Conc 35.7 g/dL (29.9-35.2); Mean Corpuscular Hemoglobin 32.3 pg (26.7-34.0); Mean Corpuscular Volume 90.5 fL (81.0-99.0); Platelet Count 239 10^3/uL (150-450); Red Blood Count 4.73 10^6/uL (4.20-5.40); White Blood Count 12.5 10^3/uL (4.0-11.0)
[2024-10-29 15:11] LABS: Alanine Aminotransferase 52 U/L (14-59); Albumin Globulin Ratio 1.2; Albumin Level 4.5 g/dL (3.4-5.0); Alkaline Phosphatase 94 U/L (46-116); Anion Gap 18.4; Aspartate Amino Transferase 34 U/L (15-37); Blood Urea Nitrogen 11.0 mg/dL (7.0-18.0); Calcium 9.8 mg/dL (8.5-10.1); Carbon Dioxide 24.5 mmol/L (21.0-32.0); Chloride 100 mmol/L (98-107); Estimated GFR (African America >60 (>=60 mL/min/1.73m^2); Estimated GFR (Non-African Ame 51 (>=60 mL/min/1.73m^2); Globulin 3.9 g/dL; Glucose 173 mg/dL (74-106); Lipase 73.0 U/L (16.0-77.0); Magnesium 1.9 mg/dL (1.8-2.4); Potassium 3.9 mmol/L (3.5-5.1); Sodium 139 mmol/L (136-145); Total Protein 8.4 g/dL (6.4-8.2)
[2024-10-29 15:26] LABS: Lymphocytes Absolute Manual 5.87 10^3/uL (1.20-3.80); Lymphocytes Percent Manual 47.0 % (20.5-60.0); Segmented Neut Absolute Manual 6.00 10^3/uL (1.4-6.5); Segmented Neutrophils % Manual 48.0 (43.0-75.0)
[2024-10-29 15:27] LABS: Basophils Abs Manual 0.00 10^3/uL (0.00-0.10); Basophils Percent Manual 0.0 % (0.2-2.0); Eosinophils Absolute Manual 0.25 10^3/uL (0.00-0.70); Eosinophils Percent Manual 2.0 % (0.9-7.0); Monocytes Absolute Manual 0.37 10^3/uL (0.30-0.80); Monocytes Percent Manual 3.0 % (1.7-12.0)
--- NOTE | 2024-10-29 15:57 | CT_ITS ---
The [address] [address] Patient Name: EDWARD GEE MRN: [id number] date: 1950 Sex: F Assigned Patient Location: ER Current Patient Location: ER Accession/Order Number: [id number] Exam Date: 10/29/2024 16:09 Report Date: 10/29/2024 16:20 At the request of: ROGERIO BLANCHARD Procedure: CT abdomen pelvis w con CT Abdomen and Pelvis withcontrast TECHNIQUE: Axial imaging with 2-D reconstruction.100 cc of Omnipaque 300. The CT exam was performed using one or more the following dose reduction techniques: Automated exposure control, adjustment of the MA and/or Kv according to patient size, or use of the iterative reconstruction technique. COMPARISON: 12/21/2023 History: Right upper quadrant and back pain for 6 days history of pancreatitis. LIMITATIONS: None LOWER THORAX Unremarkable LIVER: Unremarkable GALLBLADDER: Cholecystectomy clips identified. BILE DUCTS: Similar prominence of the common bile duct likely secondary to cholecystectomy. No obstructing stone. SPLEEN: Unremarkable PANCREAS: Unremarkable ADRENAL GLANDS: Unremarkable KIDNEYS:Tiny cyst. No obstructive uropathy. AORTA: No abdominal aortic aneurysm identified. RETROPERITONEUM: No significant retroperitoneal abnormalities identified. MESENTERY:Unremarkable STOMACH:Unremarkable SMALL BOWEL: The small bowel loops are nondistended. APPENDIX: The appendix is not seen. No pericecal inflammatory changes identified. COLON: Moderate constipation URINARY BLADDER: Urinary bladder wall thickening with diverticula. Likely muscular hypertrophy. May consider cystitis. REPRODUCTIVE SYSTEM: The uterus is absent. PNEUMOPERITONEUM: None PERITONEAL FLUID:None BONY STRUCTURES: Similar lumbar degenerative changes ABDOMINAL WALL: Unremarkable CT/CT abdomen pelvis w con IMPRESSION: No acute inflammatory changes. Cholecystectomy changes. Urinary bladder wall thickening. Likely muscular hypertrophy. Moderate constipation. Impression dictated by: Todd Acuña M.D. 10/29/2024 4:20 PM Dictation Location: [employer] Electronically authenticated by: [id number] Y Date: 10/29/2024 16:20
--- NOTE | 2024-10-29 16:24 | PC.NURSE ---
pt has been having R flank pain that radiates in RLQ for 6-8 days -- pain is only becoming worse. no nausea/vomiting, but no appetite. states eating makes it worse. was seen in PCP office today and was told she needed to come to ER
[2024-10-29 18:02] LABS: Glucose Urine UA NEGATIVE (NEGATIVE)
[2024-10-29 18:09] LABS: Cast Seen? NONE SEEN #/LPF (NONE SEEN); Crystals Seen? None Seen #/HPF (None Seen)
[2024-10-29 18:10] LABS: Urine Culture Indicated YES-FRMC
[2024-10-29 18:15] LABS: Lactate/Lactic Acid 2.2 mmol/L (0.4-2.0)
--- NOTE | 2024-10-29 19:33 | ED.GENADUL1 ---
HPI HPI - General Adult General Chief complaint: Abdominal Pain Stated complaint: FLANK PAIN Time Seen by Provider: 10/29/24 14:21 Source: patient and family Mode of arrival: walk-in Limitations: no limitations History of Present Illness Location: Reports back and abdomen Quality: Reports sharp Relieving factors: Denies eating Exacerbating factors: Reports eating Associated symptoms: Reports denies other symptoms; Denies nausea/vomiting Treatments prior to arrival: Reports none Related Data Home Medications ?Medication ?Instructions ?Recorded ?Confirmed benazepril 20 mg tablet 20 mg PO DAILY 01/17/23 10/29/24 citalopram 40 mg tablet (Celexa) 40 mg PO DAILY 01/17/23 10/29/24 levothyroxine 50 mcg tablet 50 mcg PO DAILY 01/17/23 10/29/24 (Euthyrox) Held on 10/29/24. Instructions: Doctor's Order trazodone 50 mg tablet 50 mg PO DAILY 01/17/23 01/06/24 atorvastatin 10 mg tablet 10 mg PO QPM 05/25/23 10/29/24 lorazepam 0.5 mg tablet (Ativan) 0.25 mg PO DAILY PRN anxiety 10/28/23 01/06/24 metoprolol tartrate 25 mg tablet 25 mg PO DAILY 10/28/23 01/06/24 pantoprazole 40 mg tablet,delayed 40 mg PO DAILY 10/28/23 10/29/24 release tizanidine 4 mg capsule 4 mg PO DAILY 10/28/23 01/06/24 famotidine 20 mg tablet 20 mg PO .at bedtime 10/29/24 10/29/24 levothyroxine 25 mcg tablet 25 mcg PO DAILY 10/29/24 10/29/24 meloxicam 15 mg tablet 15 mg PO DAILY 10/29/24 10/29/24 semaglutide 1 mg/dose (4 mg/3 mL) mg subcut 10/29/24 subcutaneous pen injector (Ozempic) trazodone 100 mg tablet 100 mg PO .at bedtime 10/29/24 10/29/24 Allergies Allergy/AdvReac Type Severity Reaction Status Date / Time adhesive tape Allergy Unknown Rash Verified 10/29/24 14:28 Sulfa (Sulfonamide Allergy Unknown Rash Verified 10/29/24 14:28 Antibiotics) Opioid HPI Opioid Management Most Recent Opioid Data: Last Pain Scale 8 Today, 21:18 [facility] Medical History (Updated 10/29/24 @ 19:38 by SANTO VILLALBA II) Sjogren syndrome ?M35.00 - Sjogren syndrome, unspecified (ICD-10) Hypothyroidism ?E03.9 - Hypothyroidism, unspecified (ICD-10) Low back pain ?M54.50 - Low back pain, unspecified (ICD-10) High cholesterol ?E78.00 - Pure hypercholesterolemia, unspecified (ICD-10) Cystocele with rectocele ?N81.10 - Cystocele, unspecified (ICD-10) ?N81.6 - Rectocele (ICD-10) Rheumatoid arthritis ?M06.9 - Rheumatoid arthritis, unspecified (ICD-10) Fibromyalgia ?M79.7 - Fibromyalgia (ICD-10) Anxiety ?F41.9 - Anxiety disorder, unspecified (ICD-10) Acid reflux ?K21.9 - Gastro-esophageal reflux disease without esophagitis (ICD-10) Diabetes ?E11.9 - Type 2 diabetes mellitus without complications (ICD-10) Cirrhosis of liver ?K74.60 - Unspecified cirrhosis of liver (ICD-10) High blood pressure ?I10 - Essential (primary) hypertension (ICD-10) Irregular heart beat ?I49.9 - Cardiac arrhythmia, unspecified (ICD-10) Surgical History H/O bladder repair surgery ?Z98.890 - Other specified postprocedural states (ICD-10) History of cholecystectomy ?Z90.49 - Acquired absence of other specified parts of digestive tract (ICD-10) H/O: hysterectomy ?Z90.710 - Acquired absence of both cervix and uterus (ICD-10) H/O arthroscopy of shoulder ?Z98.890 - Other specified postprocedural states (ICD-10) History of tonsillectomy and adenoidectomy ?Z90.89 - Acquired absence of other organs (ICD-10) Social History Smoking status: Never smoker Little interest or pleasure in doing things: not at all Feeling down, depressed, or hopeless: not at all Exam Constitutional Vital Signs, click to edit/add: Last Vital Signs Temp 98.5 F 10/29/24 14:25 Pulse 96 H 10/29/24 14:25 Resp 18 10/29/24 14:25 BP 122/80 10/29/24 14:25 Pulse Ox 97 10/29/24 14:25 O2 Del Method Room Air 10/29/24 14:25 Course Vital Signs Vital signs: Vital Signs Temperature 98.5 F 10/29/24 14:25 Pulse Rate 96 H 10/29/24 14:25 Respiratory Rate 18 10/29/24 14:25 Blood Pressure 122/80 10/29/24 14:25 Pulse Oximetry 97 10/29/24 14:25 Oxygen Delivery Method Room Air 10/29/24 14:25 Temperature 98.5 F 10/29/24 14:25 Pulse Rate 96 H 10/29/24 14:25 Respiratory Rate 18 10/29/24 14:25 Blood Pressure 122/80 10/29/24 14:25 Pulse Oximetry 97 10/29/24 14:25 Oxygen Delivery Method Room Air 10/29/24 14:25 Medical Decision Making [facility] Narrative Medical decision making narrative: Presents with 6 days of abdominal pain 9 pound weight loss x 1 week worsening symptoms patient is eating popsicles currently. Was sent by primary care. Patient has history of pancreatitis patient has history of kidney cysts pancreatic lesion. Will add CBC CMP lactic acid urinalysis CT with contrast 0.9% saline 500 mL Dilaudid 0.5 mg IV and Zofran 4 mg IV. Discussed plan of care patient and family agreeable plan of care. Adds additional pain medication. On reexam postmedication patient initially improved but pain is beginning to recur right upper quadrant and back. Discussed with Dr. Christian hospitalist at [place] [facility] who recommends transfer to a larger facility with ERCP discussed with Dr. Solomon at [facility] she states they do not have capable of doing ERCP recommend [place] or [place] family would like to pursue [place]. We discussed need for additional testing. Patient's pain has recurred. Discussed with Vini Adame PA-C covering for Dr. Lucho Hannon/hospitalist at [facility]. Patient per Dr. Rock Levy pending confirmation they can do an ERCP. Awaiting confirmation from [facility] that they have the appropriate specialist. discussed With patient and family.. [facility] refuses states they are unable to do ERCP at this time. Discussed [facility] from GI. He states he can do the ERCP if needed will contact hospitalist for admission and MRCP. Discussed plan of care patient agreeable plan of care. Transfer center states [facility] accepts pt for hospitalist service. theye stated they did not require any additional detail. pt family wants to drive pateint there themselves. DW Dr Jones ok to family to drive pt to [facility]. Lab Data Labs: Lab Results 10/29/24 10/29/24 10/29/24 Range/Units 14:30 16:40 17:40 WBC 12.5 H (4.0-11.0) 10^3/uL RBC 4.73 (4.20-5.40) 10^6/uL Hgb 15.3 (12.0-16.0) g/dL Hct 42.8 (36.0-48.0) % MCV 90.5 (81.0-99.0) fL MCH 32.3 (26.7-34.0) pg MCHC 35.7 H (29.9-35.2) g/dL RDW 12.1 (11.0-15.0) % Plt Count 239 (150-450) 10^3/uL MPV 9.8 (9.5-13.5) fL Seg Neuts % (Manual) 48.0 (43.0-75.0) Lymphocytes % (Manual) 47.0 (20.5-60.0) % Monocytes % (Manual) 3.0 (1.7-12.0) % Eosinophils % (Manual) 2.0 (0.9-7.0) % Basophils % (Manual) 0.0 L (0.2-2.0) % Neutrophils # (Manual) 6.00 (1.4-6.5) 10^3/uL Lymphocytes # (Manual) 5.87 H (1.20-3.80) 10^3/uL Monocytes # (Manual) 0.37 (0.30-0.80) 10^3/uL Eosinophils # (Manual) 0.25 (0.00-0.70) 10^3/uL Basophils # (Manual) 0.00 (0.00-0.10) 10^3/uL Sodium 139 (136-145) mmol/L Potassium 3.9 (3.5-5.1) mmol/L Chloride 100 (98-107) mmol/L Carbon Dioxide 24.5 (21.0-32.0) mmol/L Anion Gap 18.4 BUN 11.0 (7.0-18.0) mg/dL Creatinine 1.05 H (0.55-1.02) mg/dL Est GFR ( Amer) >60 (>=60 mL/min/1.73m^2) Est GFR (Non-Af Amer) 51 L (>=60 mL/min/1.73m^2) BUN/Creatinine Ratio 10.5 Glucose 173 H (74-106) mg/dL Lactate 2.2 H* (0.4-2.0) mmol/L Calcium 9.8 (8.5-10.1) mg/dL Magnesium 1.9 (1.8-2.4) mg/dL Total Bilirubin 1.6 H (0.2-1.0) mg/dL AST 34 (15-37) U/L ALT 52 (14-59) U/L Alkaline Phosphatase 94 (46-116) U/L Total Protein 8.4 H (6.4-8.2) g/dL Albumin 4.5 (3.4-5.0) g/dL Globulin 3.9 g/dL Albumin/Globulin Ratio 1.2 Lipase 73.0 (16.0-77.0) U/L Urine Color Lt. yellow (YELLOW) Urine Clarity Sl cloudy (CLEAR) Urine pH 6.5 (5.0-9.0) Ur Specific [place] <=1.005 A (1.005-1.025) Urine Protein Negative (NEG/TRACE) mg/dL Urine Glucose (UA) Negative (NEGATIVE) mg/dL Urine Ketones Negative (NEGATIVE) mg/dL Urine Occult Blood Negative (NEGATIVE) Urine Nitrite Negative (NEGATIVE) Urine Bilirubin Negative (NEGATIVE) Urine Urobilinogen 0.2 (0.2-1.0) EU/dL Ur Leukocyte Esterase Small A (NEGATIVE) Urine RBC 0-2 (0-2) #/HPF Urine WBC 5-10 A (NONE SEEN) #/HPF Ur Squamous Epith Cells Few A (NONE/RARE) #/LPF Urine Crystals None seen (None Seen) #/HPF Urine Bacteria Moderate A (NONE SEEN) #/HPF Urine Casts None seen (NONE SEEN) #/LPF Urine Mucus None seen (NONE SEEN) Ur [place]icated[place] [place] Range/Units 19:36 WBC (4.0-11.0) 10^3/uL RBC (4.20-5.40) 10^6/uL Hgb (12.0-16.0) g/dL Hct (36.0-48.0) % MCV (81.0-99.0) fL MCH (26.7-34.0) pg MCHC (29.9-35.2) g/dL RDW (11.0-15.0) % Plt Count (150-450) 10^3/uL MPV (9.5-13.5) fL Seg Neuts % (Manual) (43.0-75.0) Lymphocytes % (Manual) (20.5-60.0) % Monocytes % (Manual) (1.7-12.0) % Eosinophils % (Manual) (0.9-7.0) % Basophils % (Manual) (0.2-2.0) % Neutrophils # (Manual) (1.4-6.5) 10^3/uL Lymphocytes # (Manual) (1.20-3.80) 10^3/uL Monocytes # (Manual) (0.30-0.80) 10^3/uL Eosinophils # (Manual) (0.00-0.70) 10^3/uL Basophils # (Manual) (0.00-0.10) 10^3/uL Sodium (136-145) mmol/L Potassium (3.5-5.1) mmol/L Chloride (98-107) mmol/L Carbon Dioxide (21.0-32.0) mmol/L Anion Gap BUN (7.0-18.0) mg/dL Creatinine (0.55-1.02) mg/dL Est GFR ( Amer) (>=60 mL/min/1.73m^2) Est GFR (Non-Af Amer) (>=60 mL/min/1.73m^2) BUN/Creatinine Ratio Glucose (74-106) mg/dL Lactate 0.8 (0.4-2.0) mmol/L Calcium (8.5-10.1) mg/dL Magnesium (1.8-2.4) mg/dL Total Bilirubin (0.2-1.0) mg/dL AST (15-37) U/L ALT (14-59) U/L Alkaline Phosphatase (46-116) U/L Total Protein (6.4-8.2) g/dL Albumin (3.4-5.0) g/dL Globulin g/dL Albumin/Globulin Ratio Lipase (16.0-77.0) U/L Urine Color (YELLOW) Urine Clarity (CLEAR) Urine pH (5.0-9.0) Ur Specific [place] (1.005-1.025) Urine Protein (NEG/TRACE) mg/dL Urine Glucose (UA) (NEGATIVE) mg/dL Urine Ketones (NEGATIVE) mg/dL Urine Occult Blood (NEGATIVE) Urine Nitrite (NEGATIVE) Urine Bilirubin (NEGATIVE) Urine Urobilinogen (0.2-1.0) EU/dL Ur Leukocyte Esterase (NEGATIVE) Urine RBC (0-2) #/HPF Urine WBC (NONE SEEN) #/HPF Ur Squamous Epith Cells (NONE/RARE) #/LPF Urine Crystals (None Seen) #/HPF Urine Bacteria (NONE SEEN) #/HPF Urine Casts (NONE SEEN) #/LPF Urine Mucus (NONE SEEN) Ur Culture Indicated? Discharge Plan Discharge Chief Complaint: Abdominal Pain Clinical Impression: Abdominal pain, acute, right upper quadrant, Acute flank pain, Elevated bilirubin, Elevated lactic acid level Patient Disposition: [facility] Mode of Transportation: EMS
[2024-10-29 20:09] LABS: Lactate/Lactic Acid 0.8 mmol/L (0.4-2.0)
[2024-10-29] MEDS: KETOROLAC TROMETHAMINE 30 MG/ML VIAL 15 MG IVP (21:18)
== END 2024-10-29 22:47 | disposition short-term general hospital (02) ==
PROVIDERS: Physician Assistant; Emergency Provider Emergency Medicine; PCP Family Medicine
DX: R10.84 Generalized abdominal pain (principal); R10.11 Right upper quadrant pain; R74.01 Elevation of levels of liver transaminase levels; E87.20 Acidosis, unspecified; R63.4 Abnormal weight loss
CPT/HCPCS: 36415; 74177; 80053; 81001; 83605; 83690; 83735; 85007; 85027; 87086; 96374; 96375; 96376; 99285; J1171; J1885; J2405; Q9967

== ENCOUNTER 2024-12-04 12:43 | Outpatient (OUT) | payer MEDICARE, OTHER, SELFPAY ==
--- OUTSIDE RECORDS SUMMARY | 2024-12-04 08:05 | XMS_ITS | Continuity of Care Document ---
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 /min 60-100 September 29, 2024 10:30am BP Systolic 109 mm[Hg] 100-140 September 29, 2024 10:30am BP Diastolic 70 mm[Hg] 60-100 September 29, 2024 10:30am BMI (Body Mass Index) 29.0 kg/m2 September 072024 10:30am Height 61 [in_i] October 29, 2024 1:49pm Weight 65.54 kg October 29, 2024 1:49pm Heart Rate 108 /min 60-100 October 29, 2024 1:49pm Respiratory rate 14 /min -October 29, 2024 1:49pm Oxygen saturation by Pulse oximetry 98 % 95-100 October 29, 2024 1:49 pm BP Systolic 121 mm[Hg] 100-140 October 29, 2024 1:49pm BP Diastolic 80 mm[Hg] 60-100 October 29, 2024 1:49pm BMI (Body Mass Index) 27.3 kg/m2 October 072024 1:49pm Height 61 [in_i] November 13 10:50am Weight 64.06 kg November 13 10:50am Heart Rate 90 /min 60-100 November 13 10:50am Respiratory rate 14 /min -November 13, 2024 10:50am Oxygen saturation by Pulse oximetry 99 % 95-100 November 13, 2024 10: 50am BP Systolic 115 mm[Hg] 100-140 November 13 10:50am BP Diastolic 75 mm[Hg] 60-100 November 13 10:50am BMI (Body Mass Index) 26.6 kg/m2 November 13, 2024 10:50am Height 61 [in_i] December 04 11:19am Weight 66.22 kg December 04 11:19am Body Temperature 97.4 [degF] 97.6-99.0 November 11:19am Heart Rate 88 /min 60-100 December 04 11:19am Respiratory rate 20 /min 12-24 November 11:19am Oxygen saturation by Pulse oximetry 98 % 95-100 December 04, 2024 11 :19am BP Systolic 124 mm[Hg] 100-140 December 04 11:19am BP Diastolic 64 mm[Hg] 60-100 December 04 11:19am BMI (Body Mass Index) 27.6 kg/m2 December 04, 2024 11:19am Advance Directives Advance Directive Response Recorded Date/ Time Advance Directives No September 25 9:49am Insurance Providers Guarantor Ivelisse Recinos Address [address] [place] [id number] Contact Info. Home Phone: Payer Policy Id Subscriber's Name Subscriber Id Effectiv e Date Expiration Date Medicare [id number] Ivelisse Recinos [id number] Medicare [employer] [id number] Ivelisse Recinos [id number] Medicare Nonpatient [id number] Ivelisse Recinos [id number] Encounters Encounter Location(s) Arrival/Admit Date Discharge/Depart Date Provider(s) Departed Physician/Prov ider Office Visit -[facility] September 10, 2024 10:50am September 10, 2024 11:18am Flor Mosqueda MD Non-patient / Non-visit -[facility] September 25, 2024 4:40pm Flor Mosqueda MD Departed Physician/Prov ider Office Visit -[facility] September 29, 2024 10:26am September 29, 2024 11:24am Flor Mosqueda MD Departed Physician/Prov ider Office Visit -[facility] October 29, 2024 1:45pm October 29, 2024 2:13pm Flor Mosqueda MD Departed Referred -[facility] October 29, 2024 5:40pm October 29, 2024 5:41pm Preet Melchor MD Non-patient / Non-visit -[facility] November 04, 2024 10:45am Treva Sellers CMA Departed Physician/Prov ider Office Visit -[facility] November 13, 2024 10:43am November 13, 2024 11:21am Flor Mosqueda MD Departed Physician/Prov ider Office Visit -[facility] December 04, 2024 11:10am December 04, 2024 12:04pm Michael Faria MD Recent Diagnosis Onset Date Admit Date Fibromyalgia Unknown September 10, 2024 1 0:50am Sinusitis, acute maxillary Unknown September 10, 2024 10:50am Type 2 diabetes mellitus with hyperglycemia Unkn own September 10, 2024 10:50am Fibromyalgia Unknown September 29, 2024 10:26am Hoarseness of voice Unknown September 29, 025 10:26am Insomnia Unknown September 29, 2024 10:26am Thyroid disease Unknown September 29, 2024 10:26am Trouble swallowing Unknown September 29 10:26am Type 2 diabetes mellitus with hyperglycemia Unkn own September 29, 2024 10:26am Hoarseness of voice Unknown October 29 025 1:45pm RUQ pain Unknown October 29, 2024 1:45pm Trouble swallowing Unknown October 29 1:45pm Autoimmune disorder Unknown November 13, 2024 10:43am Epigastric abdominal pain Unknown November 13, 2024 10:43am Fibromyalgia Unknown November 13, 2024 10:43am Bursitis of right shoulder Unknown 2024 11:10am Inflammatory arthritis Unknown December 042024 11:10am Assessments Diagnosis Onset Date Resolution Status Admit Date Fibromyalgia acute September 10 10:50am Sinusitis, acute maxillary acute September 10, 2024 10:50am Type 2 diabetes mellitus wit h hyperglycemia acute September 10, 2024 1 0:50am Fibromyalgia acute September 29, 025 10:26am Hoarseness of voice acute September 29, 2024 10:26am Insomnia acute September 29 10:26am Thyroid disease acute September 10:26am Trouble swallowing acute September 072024 10:26am Type 2 diabetes mellitus wit h hyperglycemia acute September 29, 2024 10:26am Hoarseness of voice acute October 29, 2024 1:45pm RUQ pain acute October 29 1:45pm Trouble swallowing acute October 072024 1:45pm Autoimmune disorder acute Augus t 2024 10:43am Epigastric abdominal pain acute November 13, 2024 10:43am Fibromyalgia acute November 13, 2024 10:43am Bursitis of right shoulder acute December 04, 2024 11:10am Inflammatory arthritis acute [place] 2024 11:10am Plan of Treatment Author Flor [facility] Authored September 10, 2024 11:20 am Discussed diagnosis with efrain martinez. Instructed to take ATB as directed and complete entire course even if asymptomatic. OTC Tylenol or ibuprofen for discomfort. Saline nasal spray prn congestion. Flonase nasal spray prn congestion. OTC cough medication prn cough. Push fluids and rest. Cool mist humidifier. Immediate evaluation if worsening symptoms. PT order printed and given to pt. MDP may help w generalized pain and discomfort. Pt uses CGM regularly and notes improved glucose control w CGM. Will continue Ozempic to 1mg weekly. Stable Take medication as prescribed, keep follow up appointments, get any testing that's been ordered done in a timely fashion. Do not smoke. Call if any questions or problems.For Diabetes: Patient is advised to work on healthy diet choices and appropriate servings, weight control, regular exercise as directed, and reduce fat intake. Check home blood sugars as directed. Check feet regularly to be sure no sores or numbness are developing. Call if low sugar reactions occur, and be aware that lower sugars may happen with increased exercise. Author Flor Mosqueda [facility] Authored September 29, 2024 11:2 2am ENT referral ENT referral Reviewed labs. Continue levothyroxine at present dose. Pt continues trazodone and states it is helpful. Previously started on med from pain mgmt and had serotonin syndrome. W that history and her present meds, I would avoid meds like cymbalta. Meloxicam sent to pharmacy. Pt wearing CGM and states she has no problems w adhesion or compliance. Author Flor [facility] Authored October 29, 2024 2:24 pm I asked Ivelisse's to take her to ER. She is tremulous and doesn't feel well. Outpatient testing takes time and she obvious feels poorly. I called report and faxed previous testing to [facility] ER. Author Michael Faria [facility] Authored December 04, 2024 11 :50am if you ever need open Author Flor Mosqueda [facility] Authored November 13, 2024 1:4 2pm Pt interested in further wor kup for her autoimmune issues and her ongoing Fibromyalgia. Referral entered to Dr. Faria. Ivelisse was told to increase her pantoprazole. I will reach out to [facility] that cared for her in 2023, to continue care there. Future Tests Future scheduled test information is unavailable Pending Tests Test Name Ordered Date Scheduled Date TL with Reflex December 04, 2024 11:41am Cyclic Citrulliated Pep Ab December 04, 2024 11: 41am Rheumatoid Factor December 04, 2024 11:41am Future Visits Future appointment information is unavailable Referrals to Other Providers Reason for Referral Referral Start Date Provider Provider Contact Information Provider Address D89.89 - Other specified disorders involving the immune mechanism, not elsewhere classified,M79.7 - Fibromyalgia November 13, 2024 Faria - [facility] [place] Future Procedures Procedure Name Ordered Date Scheduled Date C-Reactive Protein December 04, 2024 11:41am Erythrocyte Sedimentation Rate December 04, 2024 11:41am Kenalog 40mg Injection December 04, 2024 11:10am Future Medications Future medication information is unavailable Patient Instructions Patient instructions are unavailable
--- OUTSIDE RECORDS SUMMARY | 2024-12-04 12:48 | XMS_ITS | Encounter Summary ---
Author Organization [facility] Address [address] [place] [id number] Care Team Providers Care Endband Sizer Name Role Phone Flor Mosqueda MD Primary Care Provider [phone] Source Comments In the event this information is protected by the Federal Confidentiality of Alcohol and Drug AbusePatient Records regulations: The Federal rules restrict any use of the information to criminally investigate or prosecute any alcohol or drug abuse patient.[facility] Reason for Visit * Reason Comments Radiology MRI Encounter Details Date Type Department Care Team (Late st Contact Info) Description 09/21/2020 Radiology Radiology MRI [address] [place] [address] Katlyn Bañuelos, RT(R) Radiology MRI Social History Tobacco Use Types Packs/Day Years Used Date Smoking Tobacco: Never Smokeless Tobacco: Never Alcohol Use Standard Drinks/Week Comments Not Currently 0 (1 standard drink = 0.6 oz pur e alcohol) Area Deprivation Index Answer Date Mickey rded National Score (1-100), lower number is lower ri sk Not on file 08/04/2020 State Score (1-10), lower number is lower risk N ot on file 08/04/2020 Data from: https://www.neighborhoodatlas.medicine.[facility].edu/. Last address used for calculation Not on file 08/04/2020 Comments Unknown Sex and Gender Information Value Date Recorded Sex Assigned at Not on file Legal Sex Female 1:47 PM EDT Gender Identity Not on file Sexual Orientation Not on file documented as of this encounter Progress Notes * Katlyn Bañuelos RT(R) - 09/21/2020 11:18 AM EDT Radiology Service Progress Note DATE OF SERVICE: [...] (routine) SIGNATURE: RT Nancie(R) PATIENT NAME: Ivelisse Recinos DATE: September 21, 2020 TIME: 11:18 AM documented in this encounter Plan of Treatment Not on file documented as of this encounter Visit Diagnoses Not on filedocumented in this encounter Care Teams Endband Sizer Relationship Specialty Start Date End Date Flor Mosqueda MD [address] [place] [phone] PCP - General Family Medicine 08/04/20 documented as of this encounter
--- OUTSIDE RECORDS SUMMARY | 2024-12-04 12:48 | XMS_ITS | Clinical Summary ---
Author Organization [facility] Address [address] [place], [place] [id number] Care Team Providers Care Veterinary Virus Serum Inspector Name Role Phone Flor Mosqueda MD Primary Care Provider [phone] Allergies Active Allergy Reactions Criticality Noted Date Comments Latex, Natural Rubber Unknown 09/06/2016 Only bandaids Sulfa (Sulfonamide Antibiotics) Anaphylaxis High Medications metFORMIN ER (GLUCOPHAGE XR) 500 mg 24 hr tablet metformin ER 500 mg tablet,extended release 24 hr TAKE 2 TABLETS BY MOUTH TWICE A DAY Active traMADol (ULTRAM) 50 mg tablet 1 Active traZODone (DESYREL) 50 mg tablet trazodone 50 mg tablet TAKE 1 TABLET BY MOUTH EVERY DAY 7 Active levothyroxine (SYNTHROID) 50 mcg tablet levothyroxine 50 mcg tablet TAKE 1 TABLET BY MOUTH DAILY Active citalopram (CELEXA) 40 mg tablet citalopram 40 mg tablet TAKE 1 TABLET BY MOUTH DAILY 7 Active benazepril (LOTENSIN) 20 mg tablet benazepril 20 mg tablet TAKE 1 TABLET BY MOUTH EVERY DAY 7 Active SITagliptin (JANUVIA) 100 mg tablet Januvia 100 mg tablet One tab p.o. daily Active Active Problems No known active problems Immunizations Immunization Administration Dates Next Due influenza (HD-IIV3) vaccine, age 65+ yr, high dose, trivalent, PF (FLUZONE HIGH-DOSE) 01/07/2020,01/06/2019,12/17/2017,02/05,03/05/2016,02/16/2015,02/02/2015 ,01/06/2013 influenza (IIV4) vaccine, ag e 6 mo - 64 yr, quadrivalent (AFLURIA, FLULAVAL, FLUZONE) 03/24/2014 influenza (IIV4) vaccine, ag e 6 mo - 64 yr, quadrivalent, PF (AFLURIA, FLUARIX, FLULAVAL, FLUZONE) 04/09/2016 influenza (LAIV) vaccine, na glenna, unspecified formulation 01/13/2018 influenza (aIIV3) vaccine, a ge 65+ yr, trivalent, PF (FLUAD) 01/01/2019 pneumococcal conjugate (PCV1 3) vaccine, 13 valent (PREVNAR 13) 02/16/2015,02/02/2015 pneumococcal polysaccharide (PPV23) vaccine, 23 valent (PNEUMOVAX 23) 01/06/2011 zoster (ZVL) vaccine, live (ZOSTAVAX) 02/03/2015 Family History Medical History Relation Comments neoplastic Father Alzheimer's Disease Mother Heart disease Mother Lung disease Mother Prostate Cancer Son 2 Relation Status Comments Brother 1 Alive Brother 2 Alive Brother 3 Alive Father Mother Sister 1 Sister 2 Alive Sister 3 Alive Son 1 Alive Son 2 Alive Son 3 Alive Social History Tobacco Use Types Packs/Day Years Used Date Smoking Tobacco: Never Smokeless Tobacco: Never Alcohol Use Standard Drinks/Week Comments Not Currently 0 (1 standard drink = 0.6 oz pur e alcohol) PHQ-2 Answer Date Recorded PHQ-2 score 0 09/30/2020 Area Deprivation Index Answer Date Mickey rded National Score (1-100), lower number is lower ri sk Not on file 08/04/2020 State Score (1-10), lower number is lower risk N ot on file 08/04/2020 Data from: https://www.neighborhoodatlas.medicine.[facility].edu/. Last address used for calculation Not on file 08/04/2020 Comments Unknown Sex and Gender Information Value Date Recorded Sex Assigned at Not on file Legal Sex Female 1:47 PM EDT Gender Identity Not on file Sexual Orientation Not on file Last Filed Vital Signs Vital Sign Reading Time Taken Comments Blood Pressure 121/54 09/30/2020 1:16 PM EDT Pulse 71 09/30/2020 1:16 PM EDT Temperature 36.2 C (97.2 F) 09/30/2020 1:16 PM EDT Respiratory Rate 18 09/30/2020 1:16 PM EDT Oxygen Saturation 97% 09/30/2020 1:16 PM EDT Inhaled Oxygen Concentration - - Weight 73.6 kg (162 lb 3.2 oz) 09/30/2020 1:16 P M EDT Height 157 cm (5' 1.81 ) 09/30/2020 1:16 PM EDT Body Mass Index 29.85 09/30/2020 1:16 PM EDT Plan of Treatment Health Maintenance Due Date Last Done Comments Anxiety Screening 08[birth year]04/1968 Depression Screening 08/04/1967 Hepatitis C Screening 08/04/1967 DTaP,Tdap,Td Vaccine (1 - Tdap) 1968 CT Colonography 1994 Cologuard (FIT-DNA) 1994 Colonoscopy 1994 Colorectal Cancer Screening 1994 Fecal Occult Blood 1994 Sigmoidoscopy 1994 Bone Density Screening 2014 Shingrix Vaccine (2 of 3) 03/31/2015 02/03/2015 Pneumococcal Vaccine: 50+ (3 of 3 - PCV20 or PCV21) 02/17/2020 02/16/2015, 02/02/2015, 01/06/2011 Diabetes Screening 09/28/2023 09/27/2020, 0 09/27/2020, 08/19/2020 Advance Directive Discussion 04/08/2024 RSV Vaccine (1 - 1-dose 75+ series) 2024 Influenza Vaccine (#1) 2024 , 01/06/2019, 01/01/2019, Additional history exists Lipid Screening 09/27/2025 09/27/2020 Procedures Procedure Name Priority Date/Time Associated Diagnosis Comments LIPID PANEL, FASTING Fax 09/27/2020 10:00 AM EDT COMPREHENSIVE METABOLIC PANEL Routine 09/27/2020 9:21 AM EDT Thrombocytopenia (HCC) from Last 3 Months or Most Recently Relevant to Health Maintenance Results * (ABNORMAL) LIPID PANEL BASIC (09/27/2020 10:00 AM EDT) Cholesterol, Total 110 <200 mg/dL 09/28/2020 2:12 AM [facility] Comment: <200 mg/dL, Desirable 200-239 mg/dL, Borderline high >239 mg/dL, High Triglyceride 121 <150 mg/dL 09/28/2020 2:12 AM [facility] Comment: <150 mg/dL, Normal 150-199 mg/dL, Borderline high 200-499 mg/dL, High >499 mg/dL, Very high HDL Cholesterol 37(L) >39 mg/dL 2:12 AM [facility] Comment: 40-59 mg/dL, Acceptable >59 mg/dL, High: Negative risk factor for coronary heart disease <40 mg/dL, Low: Positive risk factor for coronary heart disease LDL Cholesterol, Calculated 49 <100 mg/dL 09/28/2020 2:12 AM [facility] Comment: <100 mg/dL, Optimal 100-129 mg/dL, Near optimal/above optimal 130-159 mg/dL, Borderline high 160-189 mg/dL, High >189 mg/dL, Very high Secondary prevention optimal LDL Cholesterol levels are recommended to be < 70 mg/dL Non HDL Cholesterol 73 <130 mg/dL 09/28/2020 2:12 AM [facility] Comment: <130 mg/dL, Optimal 130-159 mg/dL, Near optimal/above optimal 160-189 mg/dL, Borderline high 190-219 mg/dL, High >219 mg/dL, Very high Secondary prevention optimal non HDL Cholesterol levels are recommended to be < 100 mg/dL Fasting Time 12 hrs 09/27/2020 11:21 PM [facility] VLDL Cholesterol 24 <30 mg/dL 09/29/19 2:12 AM [facility] TC:HDL Ratio 2.97 <5.10 09/28/2020 2:12 AM [facility] LDL:HDL Ratio 1.32 <2.54 09/28/2020 2:12 AM [facility] Comment: Reference: 1. National Cholesterol Education Program ATP III Guideline At-A-Glance Quick Desk Reference: National Heart, Lung, and Blood [place]. National Institutes of Health. 2001: NIH Publication No. 01-3305. 2. An International Atherosclerosis Society position paper: global recommendations for the management of dyslipidemia: executive summary, Atherosclerosis. 2014: 232(2):410-413. 09/27/2020 10:0 0 AM EDT 09/27/2020 11:11 PM EDT Cc Provider LABORATORY Final Result [facility] [address] [place] [address] [facility] [address] [place] [address] * (ABNORMAL) COMP METABOLIC PANEL (09/27/2020 9:21 AM EDT) Pathologist [facility] Protein, Total 7.2 6.3 - 8.0 g/dL 09/27/2020 10:03 AM EDT [facility] Albumin 4.5 3.9 - 4.9 g/dL 09/27/2020 10:03 AM EDT [facility] Calcium 9.5 8.5 - 10.2 mg/dL 09/27/2020 10:03 AM EDT [facility] Bilirubin, Total 0.7 0.2 - 1.3 mg/dL 09/27/2020 10:03 AM EDT [facility] Alkaline Phosphatase 83 34 - 123 U/L 09/27/2020 10:03 AM EDT [facility] AST 34 13 - 35 U/L 09/27/2020 10:03 AM EDT [facility] Glucose 161(H) 74 - 99 mg/dL 09/27/2020 10:03 AM EDT [facility] Comment: The [place] Diabetes Association (ADA) provides guidance for cutoff [...] Standards of Medical Care in Diabetes 2016, [place] Diabetes Association. Diabetes Care. 2016.39(Suppl 1). BUN 13 7 - 21 mg/dL 09/27/2020 10:03 AM EDT [facility] Creatinine 0.67 0.58 - 0.96 mg/dL 09/27/2020 10:03 AM EDT [facility] Sodium 138 136 - 144 mmol/L 09/27/2020 10:03 AM EDT [facility] Potassium 4.1 3.7 - 5.1 mmol/L 09/27/2020 10:03 AM EDT [facility] Chloride 103 97 - 105 mmol/L 09/27/2020 10:03 AM EDT [facility] CO2 24 22 - 30 mmol/L 09/27/2020 10:03 AM EDT [facility] Anion Gap 11 9 - 18 mmol/L 09/27/2020 10:03 AM EDT [facility] ALT 58(H) 7 - 38 U/L 09/27/2020 10:03 AM EDT [facility] eGFR- >60 09/27/2020 10:03 AM EDT [facility] eGFR-All Other Races >60 . 09/27/2020 10:03 AM EDT [facility] Comment: eGFR (Estimated GFR) Units of measure: [...] eGFR may not accurately reflect actual GFR. Blood 09/27/2020 9:21 AM EDT 09/27/2020 9:35 AM EDT us Mehrdad Aguilar MD LABORATORY Final Re sult [address] [place] [address] [facility] [address] [place], [place] from Last 3 Months or Most Recently Relevant to Health Maintenance Insurance MEDICARE [facility] MEDICARE Care Teams Veterinary Virus Serum Inspector Relationship Specialty Start Date End Date Flor Mosqueda MD [address] [place] [phone] PCP - General Family Medicine 4/29/21
--- OUTSIDE RECORDS SUMMARY | 2024-12-04 12:48 | XMS_ITS | Clinical Summary ---
Author Organization [employer] Address [id number] [address] [place] [address] Care Team Providers Care Financial Institution Treasurer Name Role Phone OsielTremayne Primary Care Provider [phone] Allergies Active Allergy Reactions Criticality Noted Date Comments Latex, Natural Rubber 09/06/2016 Only bandaids Sulfa (Sulfonamide Antibiotics) Anaphylaxis High Medications cholecalciferol, vitamin D3, 2,000 units capsule Take 2,000 Units by mouth daily. Active ibuprofen (ADVIL,MOTRIN) 800 mg tabletIndication s:Chronic left shoulder pain Take 1 tablet (800 mg total) by mouth every 6 (six) hours as needed for pain. 120 tablet 11 09/25/2016 Active omeprazole (PriLOSEC) 40 mg capsuleIndicatio ns:Reflux esophagitis Take 1 capsule (40 mg total) by mouth daily. 30 capsule 11 09/25/2016 Active HYDROcodone-acet aminophen (NORCO) 5-325 mg per tablet TAKE 1 - 2 TABLETS BY MOUTH EVERY 4 TO 6 HOURS NEEDED FOR PAIN 0 11/05/2016 Active HYDROcodone-acet aminophen (NORCO) 10-325 mg per tablet 12/27/2016 Activ e cyclobenzaprine (FLEXERIL) 10 mg tablet Take 1 tablet (10 mg total) by mouth every 8 (eight) hours as needed for muscle spasms. 30 tablet 1 01/01/2017 Active citalopram (CeleXA) 40 mg tablet Take 1 tablet (40 mg total) by mouth daily for 180 days. 90 tablet 1 01/01/2017 Active benazepril (LOTENSIN) 20 mg tablet Take 1 tablet (20 mg total) by mouth daily for 180 days. 90 tablet 1 01/01/2017 Active traZODone (DESYREL) 50 mg tablet Take 1 tablet (50 mg total) by mouth nightly. 90 tablet 1 01/01/2017 Active glipiZIDE (GLUCOTROL) 10 mg 24 hr tablet Take 1 tablet (10 mg total) by mouth daily for 180 days. 90 tablet 1 01/01/2017 Active ALPRAZolam (XANAX) 0.5 mg tablet Take 1 tablet (0.5 mg total) by mouth nightly as needed for anxiety. 30 tablet 01/01/2017 Active Active Problems Problem Noted Date Diagnosed Date Shortness of breath 11/21/2016 Hypertension 11/13/2016 GERD (gastroesophageal reflux disease) 7 Diabetes mellitus type 2, controlled 11/13/2016 Anxiety 11/13/2016 Hyperlipidemia 11/13/2016 Fibromyalgia, primary 09/13/2016 Family history of colon cancer 09/13/2016 Type 2 diabetes mellitus 09/13/2016 History of colon polyps 09/13/2016 Family History Medical History Relation Name Comments Colon cancer Father Diabetes Father Aneurysm Mother Relation Name Status Comments Father Mother Social History Tobacco Use Types Packs/Day Years Used Date Smoking Tobacco: Never Smokeless Tobacco: Never Alcohol Use Standard Drinks/Week Comments No 0 (1 standard drink = 0.6 oz pur e alcohol) Childcare Answer Date Recorded Childcare Unknown 09/17/2018 Employment Answer Date Recorded Employment Unknown 09/17/2018 Purpose - Life Answer Date Recorded Purpose and direction in life Unknown Comments No Sex and Gender Information Value Date Recorded Sex Assigned at Not on file Legal Sex Female 12:01 PM EDT Gender Identity Not on file Sexual Orientation Not on file Last Filed Vital Signs Vital Sign Reading Time Taken Comments Blood Pressure 132/64 01/01/2017 2:00 PM EDT Pulse 88 01/01/2017 2:00 PM EDT Temperature 36.9 C (98.4 F) 11/22/2016 7:28 AM EDT Respiratory Rate 20 11/22/2016 8:18 AM EDT Oxygen Saturation 91% 11/22/2016 9:07 AM EDT Inhaled Oxygen Concentration - - Weight 78.9 kg (174 lb) 01/01/2017 2:00 PM EDT Height 154.9 cm (5' 1 ) 01/01/2017 2:00 PM EDT Body Mass Index 32.88 01/01/2017 2:00 PM EDT Plan of Treatment Health Maintenance Due Date Last Done Comments Diabetic Ophthalmology Exam 1949 Depression Screening 1961 Tobacco Screening 1961 DTaP,Tdap and Td Vaccines (1 - Tdap) 1968 Zoster (Shingles) Vaccine (1 of 2) 08/04/1999 Fall Risk Screening 2014 Influenza Vaccine 12/07/2024 Medical Devices Implanted Type Area Portable Track Line Marker Device Identifier Shelf Expiration Date Model / Serial / Lot Sut Anch Pushlk Bcmps 3.5x19.5 Ster Disp 5ea/Po Ln Required - [id number] Implanted:Qty: 1 on 11/21/2016 by Brant Walter DO at [facility] [place] [employer] 10/05/2017 [id number] / NA / [id number] Suture [place] Swivel - [id number] Implanted:Qty: 1 on 11/21/2016 by Brant Walter DO at [facility] [place] Left: Shoulder [employer] 01/05/2018 [id number] / NA / [id number] Insurance MEDICARE [id number] PLAN Advance Directives * Full Code (Latest Code Status on File) Date Activated Date Inactivated Comments 11/21/2016 3:46 PM 11/22/2016 3:07 PM Care Teams Financial Institution Treasurer Relationship Specialty Start Date End Date Tremayne Cartagena DO [address] [place], [place] [address] PCP - General Family Medicine 08/17/16
--- OUTSIDE RECORDS SUMMARY | 2024-12-04 12:48 | XMS_ITS | Clinical Summary ---
Author Organization [facility] Address [address] [place] [address] Care Team Providers Care [employer] Officer Name Role Phone Flor Mosqueda MD Primary Care Provider [phone] Allergies Active Allergy Reactions Criticality Noted Date Comments Latex Rash Medium 09/06/2016 Other Reaction(s): (Rash) or (C/O a rash), Not available, Unknown Only bandaids Simvastatin 03/04/2023 Other Reaction(s): myalgias (muscle pain), other Sulfa Antibiotics Anaphylaxis,Rash High 09/05/2016 Other Reaction(s): Hives, Not available, respiratory distress Medications tiZANidine (Zanaflex) 4 MG tablet Take 4 mg by mouth as needed at bedtime 3 Active levothyroxine (Synthroid, Levoxyl) 50 MCG tablet Take 1 tablet by mouth Daily Active benazepril (Lotensin) 20 MG tablet Take 1 tablet by mouth Daily Active traZODone (Desyrel) 50 MG tablet Take 1 tablet by mouth Daily Active citalopram (CeleXA) 40 MG tablet Take 1 tablet by mouth Daily Active semaglutide (Ozempic, 0.25 or 0.5 MG/DOSE,) 2 MG/1.5ML solution pen-injector Active LORazepam (Ativan) 0.5 MG tablet Active minocycline 100 MG capsuleIndicati ons:Perioral dermatitis Take 1 capsule, by mouth, once daily, 30 days 30 capsule 3 Active clindamycin (Cleocin T) 1 % lotionIndicatio ns:Acne vulgaris Apply to face daily/30 day supply 60 mL 11 4 Active hydrocortisone 2.5 % creamIndication s:Other seborrheic dermatitis Apply topically 2 (two) times a day as needed (Rash) 60 g 11 4 Active hydrocortisone 2.5 % creamIndication s:Psoriasis vulgaris Apply topically 2 (two) times a day as needed (Rash) Apply thin layer to affected areas bid prn for flares 30 g 11 5 Active fluocinonide (Lidex) 0.05 % external solutionIndicat ions:Psoriasis vulgaris Apply to affected areas on the scalp, up to twice a day when flared, 30 day supply 60 mL 11 5 Active busPIRone (Buspar) 15 MG tablet 5 Active pantoprazole (ProtoNix) 40 MG EC tablet Take 40 mg by mouth Daily 4 Active citalopram (CeleXA) 20 MG tablet 5 Active famotidine (Pepcid) 20 MG tabletIndicatio ns:LPRD (laryngopharyng eal reflux disease) Take 1 tablet (20 mg) by mouth at bedtime 90 tablet 5 01/11/20 25 Active Active Problems Problem Noted Date Diagnosed Date Abnormal findings on diagnostic imaging of urina ry organs 10/12/2024 Overview (10/12/2024): MRI revealed left renal lesion consistent with a cyst, May 2015 and liver lesion stable from 2012. Insomnia 10/12/2024 Internal derangement of left shoulder 10/12/2024 Migraine headache 10/12/2024 Nonalcoholic fatty liver 10/12/2024 Overview (10/12/2024): LFTs increasing, recommed GI referral at next OV Benign essential hypertension 10/12/2024 Renal mass 10/12/2024 Tear of left rotator cuff 10/12/2024 Ventricular tachycardia 09/05/2023 Mixed anxiety and depressive disorder 04/26/2021 Abnormal results of liver function studies 03/25 Encounter for general adult medical examination without abnormal findings 03/25/2018 Liver cyst 03/25/2018 Multiple renal cysts 03/25/2018 Steatosis of liver 03/25/2018 Persistent cough 04/19/2017 Hypothyroidism 02/27/2017 Pain in joint of left shoulder 02/05/2017 Shortness of breath 11/21/2016 Anxiety 11/13/2016 GERD (gastroesophageal reflux disease) 7 Hyperlipidemia 11/13/2016 Family history of colon cancer 09/13/2016 Fibromyalgia, primary 09/13/2016 History of colon polyps 09/13/2016 Type 2 diabetes mellitus 09/13/2016 Overview (10/12/2024): 8.2%, prev 7.2%, 02/2016 foot exam 06/2017 DM eye exam 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 Overview (10/12/2024): LDL 115, trig 408 Pneumonia 01/16/2016 Solitary pulmonary nodule 01/16/2016 Osteopenia 04/08/2015 Overview (10/12/2024): DEXA -2.2 Encounters Date Type Department Care Team Description 11/26/2024 Telephone [facility] [address] [place] [address] Bela Canales MD swallow test appt follow up 11/02/2024 Telephone [facility] [address] [place] [address] Bela Canales MD needs appt cancelled at [facility] for swallow test pt in h 10/21/2024 Telephone [facility] [address] [place] [address] Bela Canales MD 10/12/2024 8:40 AM EDT Office Visit [facility] [address] [place] [address] Bela Canales MD Pharyngoesophageal dysphagia (Primary Dx); Left ear impacted cerumen; Hoarse; LPRD (laryngopharyngeal reflux disease) 10/12/2024 Bamboo flowsheet [facility] [address] [place] [address] Bela Canales MD 10/12/2024 Travel from Last 3 Months Family History Medical History Relation Name Comments Diabetes Mother Hypertension Mother Melanoma Neg Hx Relation Name Status Comments Father Mother Social History Tobacco Use Types Packs/Day Years Used Date Smoking Tobacco: Never Smokeless Tobacco: Never Tobacco Cessation:Counseling Given: Not Answered Alcohol Use Standard Drinks/Week Comments Never 0 (1 standard drink = 0.6 oz pur e alcohol) Comments Unknown Sex and Gender Information Value Date Recorded Sex Assigned at Not on file Legal Sex Female 7:03 PM EDT Gender Identity Not on file Sexual Orientation Not on file Last Filed Vital Signs Vital Sign Reading Time Taken Comments Blood Pressure 124/71 10/12/2024 8:33 AM EDT Pulse 81 10/12/2024 8:33 AM EDT Temperature - - Respiratory Rate - - Oxygen Saturation - - Inhaled Oxygen Concentration - - Weight 69.4 kg (153 lb) 10/12/2024 8:33 AM EDT Height 154.9 cm (5' 1 ) 10/12/2024 8:33 AM EDT Body Mass Index 28.91 10/12/2024 8:33 AM EDT Plan of Treatment Health Maintenance Due Date Last Done Comments CT Colonography 1949 FIT-DNA 1949 FIT 1949 FOBT 1950 Sigmoidoscopy 1950 Pneumococcal Vaccine: 65+ Ye ars (3 of 3 - PCV20 or PCV21) 02/17/2020 02/16/2015, 02/02/2015, 01/06/2011 Influenza Vaccine (#1) 2024 2, 01/07/2020, 02/02/2019, Additional history exists Colonoscopy 09/27/2026 09/27/2016, 04/08/2015 Colorectal Cancer Screening 09/27/2026 Mammogram Discontinued 09/21/2016, 09/12/2016 [place] [address] [facility] Care Teams [employer] Officer Relationship Specialty Start Date End Date Flor Mosqueda MD [address] [place] [address] PCP - General Family Medicine 10/12/24
--- OUTSIDE RECORDS SUMMARY | 2024-12-04 12:48 | XMS_ITS | Encounter Summary ---
Author Organization [facility] Address [address] [place] [address] Care Team Providers Care Central Supply Nurse Name Role Phone Flor Mosqueda MD Primary Care Provider [phone] Source Comments In the event this information is protected by the Federal Confidentiality of Alcohol and Drug AbusePatient Records regulations: The Federal rules restrict any use of the information to criminally investigate or prosecute any alcohol or drug abuse patient.[facility] Encounter Details Date Type Department Care Team (Latest Contact Info) Description 08/18/2020 H&P External-NonCCF Provider, External, JANUSZ Do not enter address information under generic External Provider. Social History Tobacco Use Types Packs/Day Years [...] on file 08/04/2020 Data from: https://www.neighborhoodatlas.medicine.[facility].edu/. Last address used for calculation Not on file 08/04/2020 Comments Unknown Sex and Gender Information Value Date Recorded Sex Assigned at Not on file Legal Sex Female 1:47 PM EDT Gender Identity Not on file Sexual Orientation Not on file COVID-19 Exposure Response Date Recorded In the last month, have you been in contact with someone who was confirmed or suspected to have Coronavirus / COVID-19? No / Unsure 08/19/2020 11:14 AM EDT documented as of this encounter Plan of Treatment Not on file documented as of this encounter Visit Diagnoses Not on filedocumented in this encounter Care Teams Central Supply Nurse Relationship Specialty [place] [address] [place] [id number] PCP - General Family Medicine 08/04/20 documented as of this encounter
--- OUTSIDE RECORDS SUMMARY | 2024-12-04 12:48 | XMS_ITS | Encounter Summary ---
Author Organization [facility] Address [address] [place] [address] Care Team Providers Care Continuous Improvement Analyst Name Role Phone Flor Mosqueda MD Primary Care Provider [phone] Encounter Details Date Type Department Care Team (Late st Contact Info) Description 11/09/2024 Results Follow-Up [facility] [address] [place] [address] [place] [address] Jono Nascimento, SPEEDBOAT DRIVER [address] [place] [address] [address] [place] [id number] Histology - tissue exam Social History Tobacco Use Types Packs/Day Years Used Date Smoking Tobacco: Never Smokeless Tobacco: Never Alcohol Use Standard Drinks/Week Comments Never 0 (1 standard drink = 0.6 oz pur e alcohol) [facility] Utilities Answer Date Recorded In the past 12 months has e [employer], gas, oil, or water [employer] threatened to shut off services in your home? No 10/30/2024 Humiliation, Afraid, Rape, and Kick questionnair e Answer Date Recorded Within the last year, have y ou been afraid of your partner or ex-partner? No 10/30/2024 Emotionally Abused Not on file 10/30/2024 Physically Abused Not on file 10/30/2024 Sexually Abused Not on file 10/30/2024 Overall Financial Resource Strain (CARDIA) Answe r Date Recorded How hard is it for you to pa y for the very basics like food, housing, medical care, and heating? Not very hard 10/30/2024 Transportation Answer Date Recorded In the past 12 months, has l ack of transportation kept you from medical appointments or from getting medications? No 10/30/2024 Lack of Transportation (Non-Medical) Not on file 10/30/2024 Housing Stability Vital Sign Answer Ted e Recorded In the last 12 months, was t here a time when you were not able to pay the mortgage or rent on time? No 10/30/2024 Number of Times Moved in the Last Year Not on fi le 10/30/2024 At any time in the past 12 m [facility], were you homeless or living in a [facility] (including now)? No 10/30/2024 Hunger Vital Sign Answer Date Recorded Within the past 12 months, y ou worried that your food would run out before you got the money to buy more. Never true 10/31/19 Ran Out of Food in the Last Year Not on file 10/30/2024 Comments No Sex and Gender Information Value Date Recorded Sex Assigned at Female 10/30/2024 12:15 AM EDT Legal Sex Female 8:27 PM EDT Gender Identity Female 10/30/2024 12:15 AM EDT Sexual Orientation Heterosexual or Straight 10/07 12:15 AM EDT documented as of this encounter Plan of Treatment Not on file documented as of this encounter Visit Diagnoses Not on filedocumented in this encounter Care Teams Continuous Improvement Analyst Relationship Specialty Start Date End Date Flor Mosqueda MD [address] [place] [address] PCP - General 10/30/24 documented as of this encounter
--- OUTSIDE RECORDS SUMMARY | 2024-12-04 12:48 | XMS_ITS | Encounter Summary ---
Author Organization [facility] Address [address] [place] [address] Care Team Providers Care Precipitator Supervisor Name Role Phone Flor Mosqueda MD Primary Care Provider [phone] Reason for Visit * Reason Onset Date Comments swallow test appt follow up 11/26/2024 Encounter Details Date Type Department Care Team ([facility] st Contact Info) Description 11/26/2024 Telephone [facility] [address] [facility] [address] [place] [id number] Bela Canales MD [address] [facility] [address] [place] [address] swallow test appt follow up Social History Tobacco Use Types Packs/Day Years [...] on file documented as of this encounter Miscellaneous Notes * Telephone Encounter - Bela Canales MD - 11/27/2024 8:04 AM EDT ok * Telephone Encounter - Kayley Roberts - 11/26/2024 11:37 AM EDT I cld pt to r/s fu appt with Dr Canales because [facility]. [facility] said she does not want to r/s w/Dr Canales office now because the doctor up in [facility] told her the swallow test was ok and pt is being sent to doctor for her auto immune problem now documented in this encounter Plan of Treatment Not on file documented as of this encounter Visit Diagnoses Not on filedocumented in this encounter Care Teams Precipitator Supervisor Relationship Specialty Start Date End Date Flor Mosqueda MD [address] [place] [phone] PCP - General Family Medicine 10/12/24 documented as of this encounter
--- OUTSIDE RECORDS SUMMARY | 2024-12-04 12:48 | XMS_ITS | Encounter Summary ---
Author Organization [facility] Address [address] [place] [address] Care Team Providers Care Relay Mechanic Name Role Phone Flor Mosqueda MD Primary Care Provider [phone] Reason for Visit * Reason Comments Med Refill Encounter Details Date Type Department Care Team (Late st Contact Info) Description 03/31/2023 Refill [facility] [address] [facility] [address] [place] [phone] Lisa Mckinley, CORPORATE COUNSELOR-EMPLOYEE PLACEMENT SPECIALIST [address] [facility] [address] [place] [address] Perioral dermatitis Social History Tobacco Use Types Packs/Day Years Used Date Smoking Tobacco: Never Alcohol Use Standard Drinks/Week Comments Never 0 (1 standard drink = 0.6 oz pur e alcohol) Comments Unknown Sex and Gender Information Value Date Recorded Sex Assigned at Not on file Legal Sex Female 7:03 PM EDT Gender Identity Not on file Sexual Orientation Not on file documented as of this encounter Plan of Treatment Not on file documented as of this encounter Visit Diagnoses Diagnosis Perioral dermatitis Rosacea documented in this encounter Care Teams Relay Mechanic Relationship Specialty Start Date End Date Flor Mosqueda MD [address] [place] [address] PCP - General Family Medicine 10/12/24 documented as of this encounter
--- OUTSIDE RECORDS SUMMARY | 2024-12-04 12:48 | XMS_ITS | Clinical Summary ---
Author Organization [facility] Address [address] [place] [address] Care Team Providers Care Medical Billing Instructor Name Role Phone Flor Mosqueda MD Primary Care Provider [phone] Allergies Active Allergy Reactions Criticality Noted Date Comments Latex Unknown 11/03/2024 Sulfa (Sulfonamide Antibiotics) Anaphylaxis High Medications Ozempic 1 mg/dose (4 mg/3 mL) pen injector Inject 1 mg under the skin 1 (one) time per week. Active levothyroxine (Synthroid, Levoxyl) 25 mcg tablet Take 25 mcg by mouth before breakfast. Active atorvastatin (Lipitor) 10 mg tablet Take 10 mg by mouth in the morning. Active citalopram (CeleXA) 20 mg tablet Take 20 mg by mouth in the morning. Active pantoprazole (ProtoNix) 40 mg EC tablet Take 40 mg by mouth before breakfast. Do not crush, chew, or split. Active famotidine (Pepcid) 20 mg tablet Take 20 mg by mouth two times daily. Active benazepril (Lotensin) 20 mg tablet Take 1 tablet by mouth in the morning. 01/01/2017 Active busPIRone (Buspar) 15 mg tablet Take 15 mg by mouth if needed each day. 08/06/2024 Active tiZANidine (Zanaflex) 4 mg tablet Take 4 mg by mouth if needed each day. 11/04/2022 Active traZODone (Desyrel) 50 mg tablet Take 1 tablet by mouth in the morning. 01/01/2017 Active traMADol (Ultram) 50 mg tabletIndicatio ns:Right upper quadrant abdominal pain Take 1 tablet (50 mg) by mouth every 8 (eight) hours if needed for moderate-se tequila pain (4-10 pain score) for up to 5 days. 20 tablet 11/03/2024 Active Problems Problem Noted Date Diagnosed Date Oropharyngeal dysphagia 10/31/2024 Assessment & Plan (11/02/2024 2:16 PM EDT): GI on board. EGD scheduled tomorrow on 11/03/2024. Cleared for regular diet by speech. Assessment & Plan (11/01/2024 12:20 PM EDT): GI on board. Swallow evaluation pending. Assessment & Plan (10/31/2024 12:55 PM EDT): GI on board. Swallow evaluation pending. Hyperbilirubinemia 10/30/2024 Assessment & Plan (11/02/2024 2:16 PM EDT): CT scan of the abdomen did not show pancreatitis or significant intra-abdominal pathology but mild intrahepatic ductal dilation. No obvious mass was seen on CT abdomen pelvis. MRCP was ordered in consultation with GI. MRCP - mild intrahepatic biliary ductal dilation along with common hepatic duct dilatation. No choledocholithiasis or cholecystitis. Right upper quadrant pain. Plan for EGD tomorrow on 11/03/2024. Prior history of cholecystectomy about 2 years ago. Consult general surgery. Assessment & Plan (11/01/2024 12:20 PM EDT): CT scan of the abdomen did not show pancreatitis or significant intra-abdominal pathology but mild intrahepatic ductal dilation. No obvious mass was seen on CT abdomen pelvis. MRCP was ordered in consultation with GI. MRCP - unclear intrahepatic biliary ductal dilation along with common hepatic duct dilatation. No choledocholithiasis or cholecystitis. Awaiting GI recommendation Assessment & Plan (10/31/2024 12:55 PM EDT): CT scan of the abdomen did not show pancreatitis, no significant intra-abdominal pathology but mild intrahepatic ductal dilation. No obvious mass was seen on CT abdomen pelvis. MRCP was ordered in consultation with GI. Once again-no significant finding on MRCP noted to have-Hyperbilirubinemia with total bili at 1.6 unclear intrahepatic biliary ductal dilation along with common hepatic duct dilatation. No choledocholithiasis or cholecystitis. Right upper quadrant pain. Patient planned for endoscopic ultrasound and ERCP on Saturday. Assessment & Plan (10/30/2024 2:27 AM EDT): -CT of the abdomen was completed showing no acute inflammatory changes, cholecystectomy changes, urinary bladder wall thickening, moderate constipation. -Hyperbilirubinemia with total bili at 1.6 -NPO for MRCP/ERCP -GI consult -Patient also complaining of difficulty swallowing, will consult speech therapy, possible EGD needed Right upper quadrant abdominal pain 10/30/2024 Assessment & Plan (11/02/2024 2:16 PM EDT): CT scan of the abdomen did not show pancreatitis or significant intra-abdominal pathology but mild intrahepatic ductal dilation. No obvious mass was seen on CT abdomen pelvis. MRCP was ordered in consultation with GI. MRCP - mild intrahepatic biliary ductal dilation along with common hepatic duct dilatation. No choledocholithiasis or cholecystitis. Right upper quadrant pain. Plan for EGD tomorrow on 11/03/2024. Prior history of cholecystectomy about 2 years ago. Consult general surgery. Assessment & Plan (11/01/2024 12:20 PM EDT): CT scan of the abdomen did not show pancreatitis or significant intra-abdominal pathology but mild intrahepatic ductal dilation. No obvious mass was seen on CT abdomen pelvis. MRCP was ordered in consultation with GI. MRCP - unclear intrahepatic biliary ductal dilation along with common hepatic duct dilatation. No choledocholithiasis or cholecystitis. Awaiting GI recommendation Assessment & Plan (10/31/2024 12:55 PM EDT): CT scan of the abdomen did not show pancreatitis, no significant intra-abdominal pathology but mild intrahepatic ductal dilation. No obvious mass was seen on CT abdomen pelvis. MRCP was ordered in consultation with GI. Once again-no significant finding on MRCP noted to have-Hyperbilirubinemia with total bili at 1.6 unclear intrahepatic biliary ductal dilation along with common hepatic duct dilatation. No choledocholithiasis or cholecystitis. Right upper quadrant pain. Patient planned for endoscopic ultrasound and ERCP on Saturday. Assessment & Plan (10/30/2024 2:27 AM EDT): -CT of the abdomen was completed showing no acute inflammatory changes, cholecystectomy changes, urinary bladder wall thickening, moderate constipation. -Hyperbilirubinemia with total bili at 1.6 -NPO for MRCP/ERCP -GI consult -Patient also complaining of difficulty swallowing, will consult speech therapy, possible EGD needed Acute cystitis 10/30/2024 Assessment & Plan (11/02/2024 2:16 PM EDT): On IV Rocephin. Continues to experience dysuria. Assessment & Plan (11/01/2024 12:20 PM EDT): On IV Rocephin. Continues to experience dysuria. Started on phenazopyridine Assessment & Plan (10/31/2024 12:55 PM EDT): On IV Rocephin. Continues to experience dysuria. Started on phenazopyridine Assessment & Plan (10/30/2024 2:27 AM EDT): -Begin rocephin HUY (acute kidney injury) 10/30/2024 Assessment & Plan (10/30/2024 2:27 AM EDT): -BUN 11, Creatinine 1.05, GFR 50 -IV fluids, repeat BMP pending Primary hypertension 10/30/2024 Assessment & Plan (11/02/2024 2:16 PM EDT): -Continue home meds Assessment & Plan (11/01/2024 12:20 PM EDT): -Continue home meds Assessment & Plan (10/31/2024 12:55 PM EDT): -Continue home meds Assessment & Plan (10/30/2024 2:27 AM EDT): -Continue home meds Type 2 diabetes mellitus wit hout complication, without long-term current use of insulin 10/30/2024 Assessment & Plan (11/02/2024 2:16 PM EDT): ISS, ACHS Assessment & Plan (11/01/2024 12:20 PM EDT): ISS, ACHS Assessment & Plan (10/31/2024 12:55 PM EDT): ISS, ACHS Assessment & Plan (10/30/2024 2:27 AM EDT): ISS, ACHS Acquired hypothyroidism 10/30/2024 Assessment & Plan (11/02/2024 2:16 PM EDT): -Continue levothyroxine Assessment & Plan (11/01/2024 12:20 PM EDT): -Continue levothyroxine Assessment & Plan (10/31/2024 12:55 PM EDT): -Continue levothyroxine Assessment & Plan (10/30/2024 2:27 AM EDT): -Continue levothyroxine HLD (hyperlipidemia) 10/30/2024 Assessment & Plan (11/02/2024 2:16 PM EDT): -Continue lipitor Assessment & Plan (11/01/2024 12:20 PM EDT): -Continue lipitor Assessment & Plan (10/31/2024 12:55 PM EDT): -Continue lipitor Assessment & Plan (10/30/2024 2:27 AM EDT): -Continue lipitor GERD (gastroesophageal reflux disease) Assessment & Plan (11/02/2024 2:16 PM EDT): -Continue PPI Assessment & Plan (11/01/2024 12:20 PM EDT): -Continue PPI Assessment & Plan (10/31/2024 12:55 PM EDT): -Continue PPI Assessment & Plan (10/30/2024 2:27 AM EDT): -Continue PPI Fibromyalgia 10/30/2024 Assessment & Plan (11/02/2024 2:16 PM EDT): -Continue home meds Assessment & Plan (11/01/2024 12:20 PM EDT): -Continue home meds Assessment & Plan (10/31/2024 12:55 PM EDT): -Continue home meds Assessment & Plan (10/30/2024 2:27 AM EDT): -Continue home meds Severe protein-calorie malnutrition 10/30/2024 Assessment & Plan (11/02/2024 2:16 PM EDT): Poor oral intake, unintentional weight loss. On dietitian. Assessment & Plan (11/01/2024 12:20 PM EDT): Poor oral intake, unintentional weight loss. On dietitian. Assessment & Plan (10/31/2024 12:55 PM EDT): Poor oral intake, unintentional weight loss. On dietitian. Encounters Date Type Department Care Team Description 11/09/2024 Results Follow-Up [facility] [address] [place] [address] [place] [phone] Jono Nascimento, MINNA Histology - tissue exam 11/03/2024 12:56 PM EDT Anesthesia Event [facility] Endoscopy [address] [place] [phone] Wing Pavon MD Meehl, Austin, MD 11/03/2024 Travel 10/30/2024 Travel 10/29/2024 11:59 PM EDT - 11/03/2024 5:11 PM EDT Hospital Encounter [facility] Urology [address] [place] [phone] Gary Donnelly MD Fawwad, Shaikh, MD Horani, Omar, MD Right upper quadrant abdominal pain (Primary Dx); Gastroesophageal reflux disease, unspecified whether esophagitis present; Dysphagia, unspecified type Discharge Disposition: Home or Self Care (01) 10/29/2024 11:58 PM EDT Emergency [facility] Emergency [address] [place] [phone] Discharge Disposition: ED Dismiss - Never Arrived (100) from Last 3 Months Family History Medical History Relation Name Comments Cancer Father Alzheimer's disease Mother Relation Name Status Comments Father Mother Social History Tobacco Use Types Packs/Day Years Used Date Smoking Tobacco: Never Smokeless Tobacco: Never Tobacco Cessation:Counseling Given: Not Answered Alcohol Use Standard Drinks/Week Comments Never 0 (1 standard drink = 0.6 oz pur e alcohol) [facility] Utilities Answer Date Recorded In the past 12 months has th e Graffiti, gas, oil, or water [employer] threatened to shut off services in your [...] any time in the past 12 m [place], were you homeless or living in a nursing home (including now)? No 10/30/2024 Hunger Vital Sign [...] Heterosexual or Straight 10/07 12:15 AM EDT Last Filed Vital Signs Vital Sign Reading Time Taken Comments Blood Pressure 115/77 11/03/2024 2:55 PM EDT Pulse 90 11/03/2024 2:55 PM EDT Temperature 36.1 C (97 F) 11/03/2024 1:50 PM EDT Respiratory Rate 17 11/03/2024 2:55 PM EDT Oxygen Saturation 93% 11/03/2024 2:55 PM EDT Inhaled Oxygen Concentration - - Weight 70.8 kg (156 lb 1.6 oz) 11/03/2024 5:00 A M EDT Height 154.9 cm (5' 0.98 ) 10/30/2024 2:06 AM ED T Body Mass Index 29.51 10/30/2024 2:06 AM EDT Plan of Treatment Health Maintenance Due Date Last Done Comments CT Colonography 1949 Diabetes: Hemoglobin A1C 1949 FIT-DNA 1949 FIT 1949 FOBT 1950 Sigmoidoscopy 1949 Diabetes: Retinopathy Screening 08/04/1959 Depression Screening 1961 Diabetes: Urine Protein Screening 1968 Adult Tetanus 08/04/1971 Zoster Vaccines (1 of 2) 08/04/1999 09/07/2015, 01/07 Pneumococcal Vaccine: 50+ Years (3 of 3 - PCV20 or PCV21) 02/17/2020 02/16/2015, 02/02/2015, 01/06/2011 Medicare Annual Wellness (AWV) 04/27/2022 04/26/2021, 04/25/2020, 07/15/2017, Additional history exists COVID-19 Vaccine ( season) 2023 Influenza Vaccine (#1) 2024 , 01/07/2020, 02/02/2019, Additional history exists Fall Risk Screening 11/03/2025 11/03/2024 Colonoscopy 09/27/2026 09/27/2016, 09/07, 04/08/2015 Colorectal Cancer Screening 09/27/2026 HIB Vaccines Aged Out No longer eligi ble based on patient's age to complete this topic HPV Vaccines Aged Out No longer eligi ble based on patient's age to complete this topic IPV Vaccines Aged Out No longer eligi ble based on patient's age to complete this topic Meningococcal B Vaccine Aged Out No l onger eligible based on patient's age to complete this topic Meningococcal Vaccine Aged Out No megan beatrice eligible based on patient's age to complete this topic Rotavirus Vaccines Aged Out No longer eligible based on patient's age to complete this topic Procedures Procedure Name Priority Date/Time Associated Diagnosis Comments POCT GLUCOSE METER UNSOLICITED RESULTS Routine 11/03/2024 3:04 PM EDT EGD Routine 11/03/2024 1:17 PM EDT Right upper quadrant abdominal pain Gastroesophageal reflux disease, unspecified whether esophagitis present Dysphagia, unspecified type HISTOLOGY - TISSUE EXAM Routine 11/03/2024 1:08 PM EDT Right upper quadrant abdominal pain Gastroesophageal reflux disease, unspecified whether esophagitis present Dysphagia, unspecified type POCT GLUCOSE METER UNSOLICITED RESULTS Routine 11/03/2024 7:06 AM EDT POCT GLUCOSE METER UNSOLICITED RESULTS Routine 11/02/2024 8:12 PM EDT POCT GLUCOSE METER UNSOLICITED RESULTS Routine 11/02/2024 4:01 PM EDT POCT GLUCOSE METER UNSOLICITED RESULTS Routine 11/02/2024 11:20 AM EDT FL ESOPHAGUS BARIUM SWALLOW WITH VIDEO AND SPEECH Routine 11/02/2024 8:25 AM EDT POCT GLUCOSE METER UNSOLICITED RESULTS Routine 11/02/2024 7:33 AM EDT CBC WITH AUTO DIFFERENTIAL Pending Discharge 11/02/2024 4:37 AM EDT HEPATIC FUNCTION PANEL Pending Discharge 11/02/2024 4:37 AM EDT BASIC METABOLIC PANEL Pending Discharge 11/02/2024 4:37 AM EDT CBC AND DIFFERENTIAL Routine 11/02/2024 4:37 AM EDT POCT GLUCOSE METER UNSOLICITED RESULTS Routine 11/01/2024 8:42 PM EDT POCT GLUCOSE METER UNSOLICITED RESULTS Routine 11/01/2024 4:43 PM EDT POCT GLUCOSE METER UNSOLICITED RESULTS Routine 11/01/2024 11:12 AM EDT POCT GLUCOSE METER UNSOLICITED RESULTS Routine 11/01/2024 7:00 AM EDT CBC WITH AUTO DIFFERENTIAL Pending Discharge 11/01/2024 5:01 AM EDT HEPATIC FUNCTION PANEL Pending Discharge 11/01/2024 5:01 AM EDT BASIC METABOLIC PANEL Pending Discharge 11/01/2024 5:01 AM EDT CBC AND DIFFERENTIAL Routine 11/01/2024 5:01 AM EDT POCT GLUCOSE METER UNSOLICITED RESULTS Routine 10/31/2024 9:21 PM EDT POCT GLUCOSE METER UNSOLICITED RESULTS Routine 10/31/2024 4:20 PM EDT POCT GLUCOSE METER UNSOLICITED RESULTS Routine 10/31/2024 12:25 PM EDT POCT GLUCOSE METER UNSOLICITED RESULTS Routine 10/31/2024 6:57 AM EDT CBC WITH AUTO DIFFERENTIAL Pending Discharge 10/31/2024 4:16 AM EDT HEPATIC FUNCTION PANEL Pending Discharge 10/31/2024 4:16 AM EDT BASIC METABOLIC PANEL Pending Discharge 10/31/2024 4:16 AM EDT CBC AND DIFFERENTIAL Routine 10/31/2024 4:16 AM EDT POCT GLUCOSE METER UNSOLICITED RESULTS Routine 10/30/2024 8:35 PM EDT POCT GLUCOSE METER UNSOLICITED RESULTS Routine 10/30/2024 4:42 PM EDT MR ABDOMEN W AND WO CONTRAST MRCP STAT 10/30/2024 2:31 PM EDT CBC Routine 10/30/2024 4:21 AM EDT BASIC METABOLIC PANEL Routine 10/30/2024 4:21 AM EDT PROTIME-INR STAT 10/30/2024 4:21 AM EDT ECG 12-LEAD STAT 10/30/2024 4:19 AM EDT PHOSPHORUS STAT 10/30/2024 1:50 AM EDT MAGNESIUM STAT 10/30/2024 1:50 AM EDT LIPASE STAT 10/30/2024 1:50 AM EDT HEPATIC FUNCTION PANEL STAT 10/30/2024 1:50 AM EDT BASIC METABOLIC PANEL STAT 10/30/2024 1:50 AM EDT MANUAL DIFFERENTIAL STAT 10/30/2024 1 :15 AM EDT CBC WITH AUTO DIFFERENTIAL STAT 10/30/2024 1:15 AM EDT CBC AND DIFFERENTIAL STAT 10/30/2024 1:15 AM EDT LACTIC ACID, PLASMA STAT 10/30/2024 1 :15 AM EDT BLOOD CULTURE STAT 10/30/2024 1:15 AM EDT BLOOD CULTURE STAT 10/30/2024 1:15 AM EDT from Last 3 Months Results * (ABNORMAL) POCT glucose meter (11/03/2024 3:04 PM EDT) Only the most recent of16 resultswithin the time period is included. Glucose POC 135(H) 70 - 105 mg/dL 11/03/2024 3:15 PM EDT [facility] Comment:[email or web address] Blood Capillary blood specimen / Unknown 11/03/2024 3:04 PM EDT 11/03/2024 3:15 PM EDT Narrative [facility] - 11/03/2024 3:15 PM EDT Waived Testing in the ED is performed under the ED CLIA certificate #[id number]. us Arnie Hou MD LAB BLOOD ORDERABLES Final Resul t [facility] [address] [place] [address] * EGD (11/03/2024 1:17 PM EDT) Anatomical Region Laterality Modality Endoscopy Narrative 11/03/2024 4:32 PM EDT Table formatting from the original result was not included. Esophagogastroduodenoscopy (EGD) Procedure Note Procedure: EGD with biopsies Indications: 74 y.o. female who was admitted with acute onset RUQ abdominal pain associated with eating, with radiation to right flank. Patient s/p cholecystectomy several years ago. Last EGD 06/2023 notable for patchy erythema of stomach; gastric biopsy results not available. MRCP 10/30/24 with findings of common hepatic duct dilated up to 1 cm and CBD in the head of the pancreas measuring 0.94 cm, without evidence of stricture, narrowing, or choledocholithiasis. The patient is complaining dysphagia to solids and liquids with gradual worsening over the past few months. Plan for EGD today to assess the upper GI tract. Sedation: MAC Medications: No administrations occurring from 1248 to 1317 on 11/03/24 Attending Physician: Franny Navarro MD Procedure Details: Informed consent was obtained for the procedure, including sedation. Risks of infection, perforation, hemorrhage, adverse drug reaction, and aspiration were discussed. The patient was placed in the left lateral decubitus position. The patient was monitored continuously with ECG tracing, pulse oximetry, blood pressure monitoring, and direct observation. The gastroscope was inserted into the mouth and advanced under direct vision to second portion of the duodenum. A careful inspection was made as the gastroscope was withdrawn, including a retroflexed view of the proximal stomach; findings and interventions are described below. Appropriate photodocumentation was obtained. Findings: The examination of the esophagus revealed mild hyperemia of the distal portion biopsies were obtained from the distal esophagus to rule out reflux esophagitis and from the proximal esophagus to rule out eosinophilic esophagitis. The GE junction was noted at 35 cm from the incisors. The examination of the stomach revealed mild hyperemia of the gastric body/antrum. Biopsies were obtained to rule out H. pylori infection. Examination of the duodenum was unremarkable. Biopsies were obtained to rule out celiac disease. Specimens: ID Type Source Tests Collected by Time A : duodenal biopsy r/o celiac Tissue Small Intestine, Duodenum HISTOLOGY - TISSUE EXAM Franny Navarro MD 11/03/2024 1308 B : gastric biopsy r/o h. pylori Tissue Gastric HISTOLOGY - TISSUE EXAM Franny Navarro MD 11/03/2024 1309 C : r/o reflux Tissue Distal Esophagus HISTOLOGY - TISSUE EXAM Franny Navarro MD 11/03/2024 1310 D : r/o EOE Tissue Proximal Esophagus HISTOLOGY - TISSUE EXAM Franny Navarro MD 11/03/2024 1312 Complications: None Estimated blood loss: Minimal Disposition: Home Condition: stable Impression: Mild hyperemia of the distal esophagus. Biopsies were obtained from the distal esophagus to rule out reflux esophagitis and from the proximal esophagus to rule out eosinophilic esophagitis. Mild hyperemia of the gastric body/antrum. Biopsies were obtained to rule out H. pylori infection. Unremarkable examination of the duodenum. Biopsies were obtained to rule out celiac disease. Recommendations: Follow-up histopathology results. Further plan depends upon the histopathology results. Attending Attestation: I performed the procedure. Jono Nascimento [facility] ENDOSCOPY PROCEDURE ORDERA BLES Final Result * Histology - tissue exam (11/03/2024 1:08 PM EDT) Case Report Surgical Pathology Case: [id number] Authorizing Provider: Franny Navarro MD Collected: 11/03/2024 1308 Ordering Location: [address] Urology Received: 11/04/2024 0805 Pathologist: Edgar Santiago MD Specimens: A) - Small Intestine, Duodenum, duodenal biopsy r/o celiac B) - Gastric, gastric biopsy r/o h. pylori C) - Distal Esophagus, r/o reflux D) - Proximal Esophagus, r/o EOE 11/06/2024 2:18 PM EDT [facility] Final Diagnosis A., Duodenum, biopsy: Duodenal mucosa without significant pathology. No celiac disease, dysplasia or malignancy identified. B. Stomach, biopsy: Gastric mucosa, body and antral types, with mild reactive change without activity. No Helicobacter pylori identified, immunohistochemical stain with control. No intestinal metaplasia, dysplasia or malignancy identified. C. Esophagus, distal, biopsy: Squamous epithelium without significant pathology. No increase in eosinophils, reflux disease , dysplasia or malignancy identified. D. Esophagus, proximal, biopsy: Mild focal esophagitis associated with acute inflammation. No fungal organisms identified, PAS fungal stain with control. No eosinophilic esophagitis, dysplasia or malignancy identified. 11/06/2024 2:18 PM EDT [facility] at 1418 EDT Clinical Information Order Diagnoses R10.11 - Right upper quadrant abdominal pain [ICD-10-CM] K21.9 - Gastroesophageal reflux disease, unspecified whether esophagitis present [ICD-10-CM] R13.10 - Dysphagia, unspecified type [ICD-10-CM] 11/06/2024 2:18 PM EDT [facility] Gross Description A. Small Intestine, Duodenum. Received in formalin labeled [facility], duodenal biopsy r/o celiac are 5 pale-joya, feathery pieces of mucosal tissue, ranging from 0.3 cm to 0.5 cm in greatest dimension. The specimen is submitted in toto in 1 cassette. Arlette Wynn, Pathologists' Vice President Diversity student Trudi Topete, Pathologists' Vice President Diversity B. Gastric. Received in formalin labeled [facility], gastric biopsy r/o h. pylori are 5 pale-joya, ragged pieces of mucosal tissue, ranging from 0.2 cm to 0.8 cm in greatest dimension. The specimen is submitted in toto in 1 cassette. Arlette Wynn Pathologists' Vice President Diversity student Trudi Topete, Pathologists' Vice President Diversity C. Distal Esophagus. Received in formalin labeled [facility], distal esoph, r/o reflux are 2 joya-white, delicate pieces of mucosal tissue, 0.3 cm and 0.4 cm in greatest dimension. The specimen is submitted in toto in 1 cassette. Arlette Wynn Pathologists' Vice President Diversity student Trudi Topete, Pathologists' Vice President Diversity D. Proximal Esophagus. Received in formalin labeled [facility], proximal eso, r/o EOE are 3 joya-white, delicate, focally erythematous pieces of mucosal tissue, ranging from 0.3 cm to 0.5 cm in greatest dimension. The specimen is submitted in toto in 1 cassette. Arlette Wynn Pathologists' Vice President Diversity student Trudi Topete, Pathologists' Vice President Diversity 11/06/2024 2:18 PM EDT [facility] Microscopic Description Microscopic examination performed. 11/06/2024 2:18 PM EDT [facility] Disclaimer The interpretation o f this case included the use of immunohistochemistry or special stains. These tests have not been cleared or approved by the U.S. Food and Drug Administration. The FDA has determined that such clearance or approval is not necessary. These tests are used for clinical purposes and should not be regarded as investigational or for research. This laboratory is certified to perform high complexity testing under the Clinical Laboratory Improvement Amendments of 1998. 11/06/2024 2:18 PM EDT [facility] Tissue Duodenal structure / Unknown 11/03/2024 1:08 PM EDT 11/04/2024 8:05 AM EDT Tissue specimen (specimen) (Gastric) 11/03/2024 1:09 PM EDT 11/04/2024 8:05 AM EDT Tissue specimen (specimen) (Distal Esophagus) 11/03/2024 1:10 PM EDT 11/04/2024 8:05 AM EDT Tissue specimen (specimen) (Proximal Esophagus) 11/03/2024 1:12 PM EDT 11/04/2024 8:05 AM EDT Franny Navarro MD LAB PATHOLOGY ORDERABLES Final R esult [facility] [address] [place] [address] * FL modified barium swallow (11/02/2024 8:25 AM EDT) Anatomical Region Laterality Modality Head, Neck Radio Fluoroscop y 11/02/2024 9:44 AM EDT Impressions 11/02/2024 9:44 AM EDT Impression: 1. No aspiration See Speech Pathology report for more details and recommendations. Electronically signed: Edilberto Jenkins. Narrative 11/02/2024 9:44 AM EDT History: Oropharyngeal dysphagia Exam: Swallow motility study Procedure: Patient's swallowing mechanism observed in conjunction with speech pathology with multiple consistencies of barium. Air Kerma: 5.95 mGY. Findings: There is no aspiration or laryngeal penetration or significant residual. Incidental prominent cricopharyngeus. Procedure Note Edilberto Jenkins MD - 11/02/2024 History: Oropharyngeal dysphagia Exam: Swallow motility study Procedure: Patient's swallowing mechanism observed in conjunction withspeech pathology with multiple consistencies of barium. Air Kerma: 5.95 mGY. Findings: There is no aspiration or laryngeal penetration or significant residual. Incidental prominent cricopharyngeus. IMPRESSION: Impression: 1. No aspiration See Speech Pathology report for more details and recommendations. Electronically signed: Edilberto Jenkins. us Shaikh Sheridan CERRATO IMG FLUOROSCOPY PROCEDURES Valerie l Result * (ABNORMAL) CBC auto differential (11/02/2024 4:37 AM EDT) Only the most recent of4 resultswithin the time period is included. Auto WBC 6.36 4.00 - 10.60 10*3/uL 11/02/2024 5:29 AM EDT [facility] ([facility]) RBC 4.05 3.80 - 5.00 10*6/uL 11/02/2024 5:29 AM EDT [facility] ([facility]) Hemoglobin 13.0 12.0 - 15.0 g/dL 11/02/2024 5:29 AM EDT [facility] ([facility]) Hematocrit 36.9 36.0 - 45.0 % 11/02/2024 5:29 AM EDT [facility] ([facility]) MCV 91.1 82.0 - 98.0 fL 11/02/2024 5:29 AM EDT [facility] ([facility]) MCH 32.1 27.0 - 33.0 pg 11/02/2024 5:29 AM EDT [facility] ([facility]) MCHC 35.2(H) 32.0 - 35.0 g/dL 11/02/2024 5:29 AM EDT [facility] ([facility]) RDW 12.4 11.5 - 15.0 % 11/02/2024 5:29 AM EDT [facility] ([facility]) Neutrophils % 46.7 40.0 - 72.0 % 11/02/2024 5:29 AM EDT [facility] ([facility]) Lymphocytes % 44.0 20.0 - 45.0 % 11/02/2024 5:29 AM EDT [facility] ([facility]) Monocytes % 4.7(L) 5.0 - 12.0 % 11/02/2024 5:29 AM EDT [facility] ([facility]) Eosinophils % 3.6 0.0 - 6.0 % 11/02/2024 5:29 AM T [facility] ([facility]) Basophils % 0.5 0.0 - 1.0 % 11/02/2024 5:29 AM [facility] ([facility]) Neutrophils Absolute 2.97 1.60 - 7.60 10*3/uL 11/02/2024 5:29 AM T [facility] ([facility]) Lymphocytes Absolute 2.80 1.20 - 4.00 10*3/uL 11/02/2024 5:29 AM [facility] ([facility]) Monocytes Absolute 0.30 0.10 - 1.00 10*3/uL 11/02/2024 5:29 AM [facility] ([facility]) Eosinophils Absolute 0.23 0.00 - 0.50 10*3/uL 11/02/2024 5:29 AM T [facility] ([facility]) Basophils Absolute 0.03 0.00 - 0.20 10*3/uL 11/02/2024 5:29 AM [facility] ([facility]) Platelets 162 150 - 400 10*3/uL 11/02/2024 5:29 AM T [facility] ([facility]) nRBC % 0.0 0 % 11/02/2024 5:29 AM [facility] ([facility]) Immature Granulocytes % 0.5 0.0 - 1.0 % 11/02/2024 5:29 AM [facility] ([facility]) Immature Granulocytes Absolute 0.03 0.00 - 0.20 10*3/uL 11/02/2024 5:29 AM [facility] ([facility]) Blood Venous blood specimen / Unknown Venipuncture / Unknown 11/02/2024 4:37 AM EDT 11/02/2024 5:10 AM EDT us Shaikh Sheridan CERRATO LAB BLOOD ORDERABLES Final Resu lt [facility] ([facility]) [address] [place] [address] * Hepatic function panel (11/02/2024 4:37 AM EDT) Only the most recent of4 resultswithin the time period is included. Total Bilirubin 1.0 0.3 - 1.0 mg/dL 11/02/2024 5:46 AM EDT [facility] ([facility]) Bilirubin, Direct 0.2 0 - 0.2 mg/dL 11/02/2024 5:46 AM EDT [facility] ([facility]) Alkaline Phosphatase 71 34 - 104 U/L 11/02/2024 5:46 AM EDT [facility]) AST 25 13 - 39 U/L 11/02/2024 5:46 AM EDT [facility]) ALT (SGPT) 26 7 - 52 U/L 11/02/2024 5:46 AM EDT [facility]) Total Protein 7.1 6.0 - 8.3 g/dL 11/02/2024 5:46 AM EDT [facility] ([facility]) Albumin 4.3 3.5 - 5.7 g/dL 11/02/2024 5:46 AM EDT [facility]) Blood Venous blood specimen / Unknown Venipuncture / Unknown 11/02/2024 4:37 AM EDT 11/02/2024 5:10 AM EDT Shaikh Sheridan CERRATO LAB BLOOD ORDERABLES Final Resu lt [facility] ([facility]) [address] [place], [place] [id number] * (ABNORMAL) Basic metabolic panel (11/02/2024 4:37 AM EDT) Only the most recent of5 resultswithin the time period is included. Sodium 136 136 - 145 mmol/L 11/02/2024 5:46 AM [facility] ([facility]) Potassium 3.8 3.5 - 5.1 mmol/L 11/02/2024 5:46 AM [facility] ([facility]) Chloride 101 98 - 107 mmol/L 11/02/2024 5:46 AM T [facility] ([facility]) CO2 29 21 - 31 mmol/L 11/02/2024 5:46 AM [facility] ([facility]) BUN 9 7 - 25 mg/dL 11/02/2024 5:46 AM [facility] ([facility]) Creatinine 0.86 0.60 - 1.20 mg/dL 11/02/2024 5:46 AM [facility] ([facility]) Glucose 126(H) 70 - 100 mg/dL 11/02/2024 5:46 AM [facility] ([facility]) Calcium 9.1 8.6 - 10.3 mg/dL 11/02/2024 5:46 AM [facility] ([facility]) Anion Gap 10 7 - 20 mmol/L 11/02/2024 5:46 AM [facility] ([facility]) eGFR 70.4 >60.0 mL/min/1. 73m*2 11/02/2024 5:46 AM [facility] ([facility]) Comment:The [facility] s estimated glomerular filtration rate (eGFR) will no longer include consideration of race in its calculation. The [employer] s eGFR Task Force developed new recommendations for the estimation of the glomerular filtration rate in the [place] They recommend immediate implementation of the new equation refit without the race variable in all laboratories because the calculation does not include race. In addition to not including race in the calculation and reporting, it included diversity in its development, and has acceptable performance characteristics and potential consequences that do not disproportionately affect any one group of individuals. BUN/Creatinine Ratio 10.5 10/07 5:46 AM [facility] ([facility]) Blood Venous blood specimen / Unknown Venipuncture / Unknown 11/02/2024 4:37 AM EDT 11/02/2024 5:10 AM EDT us Shaikh Sheridan CERRATO LAB BLOOD ORDERABLES Final Resu lt [facility]) [address] [place], [place] [id number] * MR abdomen w and wo contrast MRCP (10/30/2024 2:31 PM EDT) Anatomical Region Laterality Modality Abdomen Magnetic Resonan ce 10/30/2024 2:38 PM EDT Impressions 10/30/2024 2:44 PM EDT * No T2 bright lesions. There is some fatty infiltration of the liver with decreased signal on out of phase images. There is no abnormal enhancement. * Some central intrahepatic biliary ductal dilatation. The common hepatic duct is dilated up to 1 cm. The common bile duct in the head of the pancreas measures 0.94 cm. No fixed stricture or narrowing. No choledocholithiasis. 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 Narrative 10/30/2024 2:44 PM EDT MR ABDOMEN W AND WO CONTRAST MRCP 10/30/2024 1:19 PM CLINICAL INDICATIONS: Choledocholithiasis and right upper quadrant pain TECHNOLOGIST COMMENTS: PROTOCOL: Multiplanar T1 and T2-weighted MR imaging conducted including postcontrast imaging. MRCP sequences were obtained and reformatted into standard images and 3-dimensional maximal intensity projection images on a separate workstation. 20 mL gadolinium IV COMPARISON: No prior FINDINGS: Lower Chest: Normal ABDOMEN: Liver: No T2 bright lesions. There is some fatty infiltration of the liver with decreased signal on out of phase images. There is no abnormal enhancement. Portal vein is normal. Bile Ducts: some central intrahepatic biliary ductal dilatation. The common hepatic duct is dilated up to 1 cm. The common bile duct in the head of the pancreas measures 0.94 cm. No fixed stricture or narrowing. No choledocholithiasis. Gallbladder:Not visualized Pancreas: No ductal dilatation. No cystic masses in the pancreas. No abnormal enhancement Spleen: Normal Adrenals: Normal Kidneys: Small bilateral cysts suspect small angiomyolipoma in the mid polar right kidney but it measures only 4 mm. Bowel: Normal Mesentery:No adenopathy Peritoneum: No free fluid Vessels: No aortic aneurysm Retroperitoneum: No adenopathy Abdominal Wall: All normal Bones: Normal Procedure Note Tarik Sellers MD - 10/30/2024 MR ABDOMEN W AND WO CONTRAST MRCP 10/30/2024 1:19 PM CLINICAL INDICATIONS: Choledocholithiasis and right upper quadrant pain TECHNOLOGIST COMMENTS: PROTOCOL: Multiplanar T1 and T2-weighted MR imaging conducted including postcontrast imaging. MRCP sequences were obtained and reformatted intostandard images and 3-dimensional maximal intensity projection images on [id number] workstation. 20 mL gadolinium IV COMPARISON: No prior FINDINGS: Lower Chest: Normal ABDOMEN: Liver: No T2 bright lesions. There is some fatty infiltration of the liverwith decreased signal on out of phase images. There is no abnormalenhancement. Portal vein is normal. Bile Ducts: some central intrahepatic biliary ductal dilatation. Thecommon hepatic duct is dilated up to 1 cm. The common bile duct in the head ofthe pancreas measures 0.94 cm. No fixed stricture or narrowing. No choledocholithiasis. Gallbladder:Not visualized Pancreas: No ductal dilatation. No cystic masses in the pancreas. Noabnormal enhancement Spleen: Normal Adrenals: Normal Kidneys: Small bilateral cysts suspect small angiomyolipoma in the midpolar right kidney but it measures only 4 mm. Bowel: Normal Mesentery:No adenopathy Peritoneum: No free fluid Vessels: No aortic aneurysm Retroperitoneum: No adenopathy Abdominal Wall: All normal Bones: Normal IMPRESSION: *No T2 bright lesions. There is some fatty infiltration of the liverwith decreased signal on out of phase images. There is no abnormal enhancement. *Some central intrahepatic biliary ductal dilatation. The commonhepatic duct is dilated up to 1 cm. The common bile duct in the head of thepancreas measures 0.94 cm. No fixed stricture or narrowing. Nocholedocholithiasis. 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 Shaikh Sheridan CERRATO IMG MRI PROCEDURES Final Result * (ABNORMAL) Protime-INR (10/30/2024 4:21 AM EDT) Protime 15.2(H) 12.3 - 14.8 Seconds 10/30/2024 5:14 AM EDT [facility] ([facility]) INR 1.20(H) 0.90 - 1.10 10/30/2024 5:14 AM EDT [facility] ([facility]) Comment: ACCCP RECOMMENDED INR FOR WARFARIN THERAPY CONDITION INR PROPHYLAXIS OF VENOUS THROMBOSIS 2-3 (HIGH-RISK SURGERY) TREATMENT OF VENOUS THROMBOSIS 2-3 TREATMENT OF PULMONARY EMBOLISM 2-3 PREVENTION OF SYSTEMIC EMBOLISM: 2-3 ACUTE MYOCARDIAL INFARCTION TISSUE HEART VALVES VALVULAR HEART DISEASE ATRIAL FIBRILLATION RECURRENT SYSTEMIC EMBOLISM MECHANICAL HEART VALVE 2.5-3.5 FROM: ORAL ANTICOAGULANTS. MECHANISM OF ACTION, CLINICAL EFFECTIVENESS, AND OPTIMAL THERAPEUTIC RANGE. CHEST 1995;[id number]. Blood Venous blood specimen / Unknown Venipuncture / Unknown 10/30/2024 4:21 AM EDT 10/30/2024 4:39 AM EDT Aliza Vallejo [facility] BLOOD ORDERABLES Final Resu lt [facility] ([facility]) [address] [place] [address] * (ABNORMAL) CBC (10/30/2024 4:21 AM EDT) Pathologist [facility] Auto WBC 9.23 4.00 - 10.60 10*3/uL 10/30/2024 4:59 AM EDT [facility] ([facility]) RBC 4.07 3.80 - 5.00 10*6/uL 10/30/2024 4:59 AM EDT [facility] ([facility]) Hemoglobin 13.1 12.0 - 15.0 g/dL 10/30/2024 4:59 AM EDT [facility] ([facility]) Hematocrit 37.3 36.0 - 45.0 % 10/30/2024 4:59 AM EDT [facility] ([facility]) MCV 91.6 82.0 - 98.0 fL 10/30/2024 4:59 AM EDT [facility] ([facility]) MCH 32.2 27.0 - 33.0 pg 10/30/2024 4:59 AM EDT [facility] ([facility]) MCHC 35.1(H) 32.0 - 35.0 g/dL 10/30/2024 4:59 AM EDT [facility] ([facility]) RDW 12.5 11.5 - 15.0 % 10/30/2024 4:59 AM EDT [facility] ([facility]) Platelets 165 150 - 400 10*3/uL 10/30/2024 4:59 AM EDT [facility] ([facility]) Blood Venous blood specimen / Unknown Venipuncture / Unknown 10/30/2024 4:21 AM EDT 10/30/2024 4:40 AM EDT us Aliza Vallejo [facility] BLOOD ORDERABLES Final Resu lt [facility] ([facility]) [address] [place] [address] * ECG 12 lead (10/30/2024 4:19 AM EDT) Ventricular Rate 71 BPM GE MUSE Atrial Rate 71 BPM GE MUSE [place] Interval 162 ms GE MUSE QRS DURATION 84 ms GE MUSE QT Interval 444 ms GE MUSE QTC CALCULATION(BAZE TT) 482 ms GE MUSE P [place] 39 degrees GE MUSE R-[place] 12 degrees GE MUSE T Wave [place] 10 degrees GE MUSE 10/30/2024 4:08 AM EDT 10/30/2024 9:34 AM EDT Impressions GE MUSE - 10/30/2024 9:34 AM EDT Normal sinus rhythm Low voltage QRS Nonspecific T wave abnormality Abnormal ECG No previous ECGs available Confirmed by Aba Campos ([id number]) on 10/30/2024 9:34:58 AM Narrative Procedure Note Aba Campos MD - 10/30/2024 IMPRESSION: Normal sinus rhythm Low voltage QRS Nonspecific T wave abnormality Abnormal ECG No previous ECGs available Confirmed by Aba Capmos ([id number]) on 10/30/2024 9:34:58 AM us Aliza Vallejo MAIL SERVICE COORDINATOR ECG ORDERABLES Final Result GE MUSE * Phosphorus (10/30/2024 1:50 AM EDT) Phosphorus 2.8 2.5 - 5.0 mg/dL 10/30/2024 2:20 AM EDT [facility] ([facility]) Blood Venous blood specimen / Unknown Venipuncture / Unknown 10/30/2024 1:50 AM EDT 10/30/2024 1:53 AM EDT Aliza Yoni [facility] BLOOD ORDERABLES Final Resu lt [facility] (BEAKER) [address] [place] [address] * Magnesium (10/30/2024 1:50 AM EDT) Magnesium 2.0 1.9 - 2.7 mg/dL 10/30/2024 2:20 AM EDT [facility] ([facility]) Blood Venous blood specimen / Unknown Venipuncture / Unknown 10/30/2024 1:50 AM EDT 10/30/2024 1:53 AM EDT [facility] Final Resu lt [facility]) [address] [place] [address] * Lipase (10/30/2024 1:50 AM EDT) Lipase 42 11 - 82 U/L 10/30/2024 2:21 AM EDT [facility] ([facility]) Blood Venous blood specimen / Unknown Venipuncture / Unknown 10/30/2024 1:50 AM EDT 10/30/2024 1:53 AM EDT [facility] BLOOD ORDERABLES Final Resu lt Performing Organization Address [facility]/ZIP Co de Phone Number [facility]) [address] [place] [id number] * (ABNORMAL) Manual Differential (10/30/2024 1:15 AM EDT) Immature Granulocytes % 0.3 0.0 - 1.0 % 10/30/2024 1:58 AM EDT [facility] ([facility]) Neutrophils Absolute 6.0 1.6 - 7.6 10*3/uL 10/30/2024 1:58 AM EDT [facility] ([facility]) Lymphocytes Absolute 5.41(H) 1.20 - 4.00 10*3/uL 10/30/2024 1:58 AM EDT [facility] ([facility]) Monocytes Absolute 0.54 0.10 - 1.00 10*3/uL 10/30/2024 1:58 AM EDT [facility] ([facility]) Eosinophils Absolute 0.08 0.00 - 0.50 10*3/uL 10/30/2024 1:58 AM EDT [facility] ([facility]) Basophils Absolute 0.04 0.00 - 0.20 10*3/uL 10/30/2024 1:58 AM EDT [facility] ([facility]) Neutrophils % 49.4 40.0 - 72.0 % 10/30/2024 1:58 AM EDT [facility] ([facility]) Lymphocytes % 44.8 20.0 - 45.0 % 10/30/2024 1:58 AM EDT [facility] ([facility]) Monocytes % 4.5(L) 5.0 - 12.0 % 10/30/2024 1:58 AM EDT [facility] ([facility]) Eosinophils % 0.7 0.0 - 6.0 % 10/30/2024 1:58 AM EDT [facility] ([facility]) Basophils % 0.3 0.0 - 1.0 % 10/30/2024 1:58 AM EDT [facility] ([facility]) Immature Granulocytes Absolute 0.04 0.00 - 0.20 10*3/uL 10/30/2024 1:58 AM EDT [facility] ([facility]) Blood Venous blood specimen / Unknown Existing Catheter / Unknown 10/30/2024 1:15 AM EDT 10/30/2024 1:27 AM EDT us [facility]vo [facility] BLOOD ORDERABLES Final Resu lt [facility]) [address] [place] [address] * Blood culture, peripheral #2 (10/30/2024 1:15 AM EDT) Only the most recent of2 resultswithin the time period is included. Blood Culture No growth at 5 days LAMAR 11/04/2024 2:01 AM EDT [facility] ([facility]) Blood Venous blood specimen / Unknown Existing Catheter / Unknown 10/30/2024 1:15 AM EDT 10/30/2024 1:26 AM EDT [facility] MAIL SERVICE COORDINATOR LAB MICROBIOLOGY - GENERAL ORDE RABLES Final Result Performing Organization Address City/[facility]/ZIP Co de Phone Number [facility]) [address] [place] [address] * Lactic acid, plasma (10/30/2024 1:15 AM EDT) Lactate 1.4 0.5 - 2.2 mmol/L 10/30/2024 1:56 AM EDT [facility] ([facility]) Blood Venous blood specimen / Unknown Existing Catheter / Unknown 10/30/2024 1:15 AM EDT 10/30/2024 1:27 AM EDT us Aliza Vallejo [facility] BLOOD ORDERABLES Final Resu lt [facility] ([facility]) [address] [place] [address] from Last 3 Months [place] [address] [facility] Advance Directives * Full Code (Latest Code Status on File) Date Activated Date Inactivated Comments 10/30/2024 1:37 AM 11/03/2024 7:11 PM Care Teams Medical Billing Instructor Relationship Specialty Start Date End Date Flor Mosqueda MD [phone] [place] [address] PCP - General 10/30/24
--- OUTSIDE RECORDS SUMMARY | 2024-12-04 12:55 | XMS_ITS | CCD ---
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 [Mixed hyperlipidemia] Onset: 7 Chronic Esophageal disorders (5 sources) Gastro-esophageal reflux disease without esophagitis; Translations: [Gastroesophageal reflux disease] Onset: 7 Chronic Essential hypertension (20 sources) Hypertensive disorder; Translations: [Essential (primary) hypertension] Onset: 3 Chronic Genitourinary congenital anomalies (2 sources) Multiple renal cysts; Translations: [Congenital multiple renal cysts] Onset: 8 10-12-2024 Chronic Genitourinary symptoms and ill-defined conditions (7 sources) Dysuria; Translations: [Personal history of urinary (tract) infections] Onset: 3 Episodic Headache; including migraine (2 sources) Migraine; Translations: [Migraine, unspecified, not intractable, without status migrainosus] Onset: 5 10-12-2024 Chronic Hepatitis (1 source) Cirrhosis - non-alcoholic; Translations: [Nonalcoholic steatohepatitis (RITTER)] 09-21-2020 Chronic Immunity disorders (20 sources) Immunodeficiency disorder; Translations: [Immunodeficiency, unspecified] Onset: 3 Chronic Lymphadenitis (7 sources) Cervical lymphadenitis; Translations: [Nonspecific lymphadenitis, unspecified] 01-07-2024 Episodic Malaise and fatigue (11 sources) Weakness; Translations: [Fatigue] Onset: 3 Episodic Nonspecific chest pain (8 sources) Chest pain; Translations: [Chest pain, unspecified] Onset: 4 Episodic Osteoarthritis (20 sources) Osteoarthritis of knee; Translations: [Osteoarthritis of knee, unspecified] Chronic Other aftercare (20 sources) Long-term current use of insulin; Translations: [long-term (current) use of insulin] Episodic Other connective tissue disease (20 sources) Fibromyalgia; Translations: [Fibromyalgia] 05-28-2023 Episodic Other connective tissue disease (3 sources) Fibromyalgia; Translations: [FIBROMYALGIA] Onset: 3 Episodic Other connective tissue disease (2 sources) Tear of left rotator cuff; Translations: [Unspecified rotator cuff tear or rupture of left shoulder, not specified as traumatic] Onset: 5 10-12-2024 Episodic Other diseases of kidney and ureters (2 sources) Renal mass; Translations: [Other specified disorders of kidney and ureter] Onset: 5 10-12-2024 Chronic Other disorders of stomach and duodenum (1 source) Gastroduodenal disorder; Translations: [Disease of stomach and duodenum, unspecified] Onset: 4 Episodic Other gastrointestinal disorders (1 source) Constipation by outlet obstruction; Translations: [Outlet dysfunction constipation] Onset: 4 Episodic Other gastrointestinal disorders (3 sources) Other constipation; Translations: [Constipation, unspecified] Onset: 4 Episodic Other gastrointestinal disorders (6 sources) Chronic constipation; Translations: [Other constipation] 01-07-2024 Episodic Other gastrointestinal disorders (8 sources) Dysphagia; Translations: [Dysphagia, unspecified] 09-29-2024 Episodic Other gastrointestinal disorders (2 sources) Dysphagia, unspecified; Translations: [Dysphagia, unspecified] Onset: 5 Episodic Other hereditary and degenerative nervous system conditions (7 sources) Serotonin syndrome; 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] 02-05-2024 Chronic Other infections; including parasitic (2 sources) Personal history of other infectious and parasitic diseases Episodic Other inflammatory condition of skin (4 sources) Psoriasis vulgaris; Translations: [Psoriasis vulgaris] 04-28-2024 Chronic Other inflammatory condition of skin (2 sources) Seborrheic dermatitis; Translations: [Other seborrheic dermatitis] 01-07-2024 Episodic Other liver diseases (20 sources) Steatosis of liver; Translations: [Fatty (change of) liver, not elsewhere classified] Onset: 8 Chronic Other liver diseases (2 sources) Cirrhosis of liver; Translations: [Unspecified cirrhosis of liver] Onset: 4 Chronic Other liver diseases (2 sources) Liver cyst; Translations: [Other specified diseases of liver] Onset: 8 10-12-2024 Chronic Other liver diseases (2 sources) 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; Translations: [Fatty (change of) liver, not elsewhere classified] Onset: 5 10-12-2024 Chronic Other liver diseases (20 sources) Elevated liver enzymes level; Translations: [Abnormal levels of other serum enzymes] Episodic Other liver diseases (9 sources) Abnormal levels of other serum enzymes; Translations: [Other nonspecific abnormal serum enzyme levels] Onset: 3 Episodic Other liver diseases (6 sources) High lipase level in serum; Translations: [Abnormal levels of other serum enzymes] 12-26-2023 Episodic Other lower respiratory disease (2 sources) Dyspnea, unspecified; Translations: [DYSPNEA UNSPECIFIED] Onset: 2 Episodic Other nervous system disorders (6 sources) Tremor; Translations: [Tremor, unspecified] 12-26-2023 Episodic Other nervous system disorders (1 source) Tremor, unspecified; Translations: [Abnormal involuntary movements] 12-26-2023 Episodic Other non-traumatic joint disorders (2 sources) Derangement of left shoulder joint; Translations: [Other specific joint derangements of left shoulder, not elsewhere classified] Onset: 5 10-12-2024 Chronic Other non-traumatic joint disorders (6 sources) Pain in right knee; Translations: [Right knee pain] 09-30-2023 Episodic Other nutritional; endocrine; and metabolic disorders (20 sources) Body mass index 30+ - obesity; Translations: [Body mass index (BMI) 30.0-30.9, adult] Chronic Other nutritional; endocrine; and metabolic disorders (20 sources) Metabolic syndrome X; Translations: [Metabolic syndrome] Chronic Other screening for suspected conditions (not mental disorders or infectious disease) (6 sources) Other specified abnormal findings of blood chemistry; Translations: [Encounter for screening for malignant neoplasm of colon] Onset: 8 10-12-2024 Episodic Other skin disorders (2 sources) Inflamed seborrheic keratosis; Translations: [Inflamed seborrheic keratosis] 01-07-2024 Episodic Other upper respiratory disease (8 sources) Hoarse; Translations: [Dysphonia] 09-29-2024 Episodic Other upper respiratory infections (7 sources) Acute maxillary sinusitis; Translations: [Acute maxillary sinusitis, unspecified] 09-10-2024 Episodic Residual codes; unclassified (20 sources) Insomnia co-occurrent [...] parts of digestive tract] Onset: 4 Episodic Residual codes; unclassified (1 source) Family history of malignant neoplasm of digestive organs; Translations: [Family history of malignant neoplasm of gastrointestinal tract] 01-07-2024 Episodic Residual codes; unclassified (10 sources) Insomnia; Translations: [Insomnia, unspecified] Onset: 5 04-03-2024 Episodic Residual codes; unclassified (2 sources) Insomnia, unspecified; Translations: [Insomnia, unspecified] 05-08-2024 Episodic Septicemia (except in labor) (2 sources) Sepsis due to unspecified staphylococcus; Translations: [Severe sepsis without septic shock] Onset: 3 Episodic Spondylosis; intervertebral disc disorders; other back problems (6 sources) Low back pain; Translations: [Radiculopathy, lumbar region] 09-17-2023 Episodic Thyroid disorders (20 sources) Hypothyroidism; Translations: [Hypothyroidism, unspecified] Onset: 7 Chronic Thyroid disorders (6 sources) Disorder of thyroid gland; Translations: [Disorder of thyroid, unspecified] 09-25-2024 Episodic Unclassified (4 sources) CONTACT W/AND (SUSP) EXPOS COVID-19; Translations: [CONTACT W/AND (SUSP) EXPOS COVID-19] Onset: 2 Unclassified (1 source) ACIDOSIS UNSPECIFIED; Translations: [ACIDOSIS UNSPECIFIED] Onset: 3 Urinary tract infections (11 sources) Acute cystitis without hematuria; Translations: [Urinary tract infection, site not specified] Onset: 3 Episodic Past or Other Problems Problem Classification Problem [...] [VIRAL INTESTINAL INFECTION UNSPEC] Onset: 04-17-2022 Episodic Menopausal disorders (1 source) Hormone replacement therapy; Translations: [HORMONE REPLACEMENT THERAPY] Onset: 04-17-2022 Episodic Nausea and vomiting (4 sources) Nausea with vomiting, unspecified; Translations: [NAUSEA WITH VOMITING UNSPECIFIED] Onset: 11-26-2021 Episodic Other aftercare (1 source) Other 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 (current) 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 therapy; Translations: [OTH [facility] CURRENT DRUG THERAPY] Onset: 04-17-2022 Episodic Other aftercare (1 source) 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 (current) use of oral hypoglycemic drugs; Translations: [[employer] MIDDLE[employer] DEVELOPER USE ORAL HYPOGLYCEMIC DX] Onset: 04-17-2022 Episodic Other and unspecified benign neoplasm (2 sources) History of polyp of colon; Translations: [History of colon polyps] Onset: 09-13-2016 10-12-2024 Episodic Other bone disease and musculoskeletal deformities (2 sources) Osteopenia; Translations: [Other specified disorders of bone density and structure, unspecified site] Onset: 04-08-2015 10-12-2024 Episodic Other connective tissue disease (2 sources) Myalgia, unspecified site; Translations: [MYALGIA UNSPECIFIED SITE] Onset: 04-30-2022 Episodic Other connective tissue disease (4 sources) Pain in right forearm; Translations: [PAIN IN RIGHT FOREARM] Onset: 01-05-2022 Episodic Other connective tissue disease (2 sources) Primary fibromyalgia syndrome; Translations: [Fibromyalgia] Onset: 09-13-2016 10-12-2024 Episodic Other gastrointestinal disorders (1 source) Diarrhea, unspecified; Translations: [DIARRHEA UNSPECIFIED] Onset: 11-28-2021 Episodic Other lower respiratory disease (2 sources) Persistent cough; Translations: [Persistent cough] Onset: 04-19-2017 10-12-2024 Episodic Other lower respiratory disease (2 sources) Dyspnea; Translations: [Shortness of breath] Onset: 11-21-2016 10-12-2024 Episodic Other lower respiratory disease (2 sources) Solitary nodule of lung; Translations: [Solitary pulmonary nodule] Onset: 01-16-2016 10-12-2024 Episodic Other non-traumatic joint disorders (1 source) Pain in right wrist; Translations: [PAIN IN RIGHT WRIST] Onset: 01-08-2022 Episodic Other non-traumatic joint disorders (2 sources) Pain of left shoulder joint; Translations: [Pain in left shoulder] Onset: 02-05-2017 10-12-2024 Episodic Pneumonia (except that caused by tuberculosis or sexually transmitted disease) (2 sources) Pneumonia; Translations: [Pneumonia, unspecified organism] Onset: 01-16-2016 10-12-2024 Episodic Residual codes; unclassified (1 source) Acquired absence of both cervix and uterus; Translations: [ACQUIRED ABSENCE BOTH CERVIX AND UTERUS] Onset: 04-17-2022 Episodic Residual codes; unclassified (1 source) Acquired absence of other specified parts of digestive tract; Translations: [ACQ ABSENCE OTH PART DIGESTV TRACT] Onset: 04-17-2022 Episodic Residual codes; unclassified (8 sources) Family history of cancer of colon; Translations: [Family history of malignant neoplasm of digestive organs] Onset: 09-13-2016 01-07-2024 Episodic Unclassified (1 source) CONTACT W/AND (SUSP) EXPOS COVID-19; Translations: [CONTACT W/AND (SUSP) EXPOS COVID-19] Onset: 11-08-2021 Viral infection (1 source) COVID-19 Results Test Name Value Interpretation Reference Range Facility 30on 11-03-2024 30 Problem: Pain - Adul t Goal: Verbalizes/displays adequate comfort level or baseline comfort level 11/03/2024 152 by Calli Lauren RN Outcome: Adequate for Discharge 11/03/2024 152 by Calli Lauren RN Outcome: Adequate for Discharge Problem: Safety - Adult Goal: Free from fall injury 11/03/2024 152 by Calli Lauren RN Outcome: Adequate for Discharge 11/03/2024 152 by Calli Lauren RN Outcome: Adequate for Discharge Problem: Discharge Planning Goal: Discharge to home or other facility with appropriate resources 11/03/2024 152 by Calli Lauren RN Outcome: Adequate for Discharge 11/03/2024 152 by Calli Lauren RN Outcome: Adequate for Discharge Problem: Chronic Conditions and Co-morbidities Goal: Patient's chronic conditions and co-morbidity symptoms are monitored and maintained or improved 11/03/2024 152 by Calli Lauren RN Outcome: Adequate for Discharge 11/03/2024 152 by Calli Lauren RN Outcome: Adequate for Discharge Problem: Pain Goal: LTG-Verbalize decrease in pain 11/03/2024 152 by Calli Lauren RN Outcome: Adequate for Discharge 11/03/2024 152 by Calli Lauren RN Outcome: Adequate for Discharge Goal: LTG-Demostrate that the pain does not impair ADLs 11/03/2024 1521 by Calli Lauren RN Outcome: Adequate for Discharge 11/03/2024 152 by Calli Lauren RN Outcome: Adequate for Discharge Goal: STG-Pt will verbalize decreased discomfort 11/03/2024 152 by Calli Lauren RN Outcome: Adequate for Discharge 11/03/2024 152 by Calli Lauren RN Outcome: Adequate for Discharge Problem: Resident experiences pain/discomfort Goal: I will maintain an acceptable level of pain 11/03/2024 152 by Calli Lauren RN Outcome: Adequate for Discharge 11/03/2024 152 by Calli Lauren RN Outcome: Adequate for Discharge Normal [facility] 30 Problem: Pain - Adul t Goal: Verbalizes/displays adequate comfort level or baseline comfort level Outcome: Adequate for Discharge Problem: Safety - Adult Goal: Free from fall injury Outcome: Adequate for Discharge Problem: Discharge Planning Goal: Discharge to home or other facility with appropriate resources Outcome: Adequate for Discharge Problem: Chronic Conditions and Co-morbidities Goal: Patient's chronic conditions and co-morbidity symptoms are monitored and maintained or improved Outcome: Adequate for Discharge Problem: Pain Goal: LTG-Verbalize decrease in pain Outcome: Adequate for Discharge Goal: LTG-Demostrate that the pain does not impair ADLs Outcome: Adequate for Discharge Goal: STG-Pt will verbalize decreased discomfort Outcome: Adequate for Discharge Problem: Resident experiences pain/discomfort Goal: I will maintain an acceptable level of pain Outcome: Adequate for Discharge [facility] HISTOLOGY - TISSUE EXAMon LAB AP ASR DISCLAIMER The interpretation of this case included the use of immunohistochemistry [...] the Clinical Laboratory Improvement Amendments of 1998. Normal [facility] Comment on above: Performed By: #### L [id number] #### [facility] ([facility]) [address] [place] [address] LAB AP CASE REPORT Normal [facility] Comment on above: Result Comment: Surg ical Pathology Case: [id number] Authorizing Provider: Franny Navarro MD Collected: 11/03/2024 1308 Ordering Location: [address] Urology Received: 11/04/2024 0805 Pathologist: Edgar Santiago MD Specimens: A) - Small Intestine, Duodenum, duodenal biopsy r/o celiac B) - Gastric, gastric biopsy r/o h. pylori C) - Distal Esophagus, r/o reflux D) - Proximal Esophagus, r/o EOE Performed By: #### L [id number] #### [facility] ([facility]) [address] [place] [address] LAB AP CLINICAL INFORMATION Order Diagnoses Normal [facility] Comment on above: Result Comment: R10. 11 - Right upper quadrant abdominal pain [ICD-10-CM] K21.9 - Gastroesophageal reflux disease, unspecified whether esophagitis present [ICD-10-CM] R13.10 - Dysphagia, unspecified type [ICD-10-CM] Performed By: #### L [id number] #### [facility] ([facility]) [address] [place] [address] LAB AP GROSS DESCRIPTION Normal [facility] Comment on above: Result Comment: A. S mall Intestine, Duodenum. Received in formalin labeled [facility], duodenal biopsy r/o celiac are 5 pale-joya, feathery pieces of mucosal tissue, ranging from 0.3 cm to 0.5 cm in greatest dimension. The specimen is submitted in toto in 1 cassette. Arlette Wnyn, Pathologists' Leather Crafter student Trudi Topete, [employer]ologists' [employer] B. Gastric. Received in formalin labeled [facility], gastric biopsy r/o h. pylori are 5 pale-joya, ragged pieces of mucosal tissue, ranging from 0.2 cm to 0.8 cm in greatest dimension. The specimen is submitted in toto in 1 cassette. Arlette Wynn, Pathologists' [employer] student Trudi Topete, Pathologists' Le[employer] C. Distal Esophagus. Received in formalin labeled [facility], distal esoph, r/o reflux are 2 joya-white, delicate pieces of mucosal tissue, 0.3 cm and 0.4 cm in greatest dimension. The specimen is submitted in toto in 1 cassette. Arlette Wynn, Pathologists' Le[employer] student Trudi Topete, Pathologists' Le[employer]fter D. Proximal Esophagus. Received in formalin labeled [facility], proximal eso, r/o EOE are 3 joya-white, delicate, focally erythematous pieces of mucosal tissue, ranging from 0.3 cm to 0.5 cm in greatest dimension. The specimen is submitted in toto in 1 cassette. Arlette Wynn, Pathologists' Le[employer] student Trudi Topete, Pathologists' Leather [employer]fter Performed By: #### L [id number] #### [facility] ([facility]) [address] [place] [address] LAB AP MICROSCOPIC DESCRIPTION Microscopic examination performed. [facility] Comment on above: Performed By: #### L [id number] #### [facility] ([facility]) [address] [place] [address] LAB AP REPORT FINAL DIAGNOSIS NARRATIVE [facility] Comment on above: Result Comment: A., Duodenum, biopsy: Duodenal mucosa without significant [...] No eosinophilic esophagitis, dysplasia or malignancy identified. at 1418 EDT Performed By: #### L [id number] #### [facility] ([facility]) [address] [place] [address] HPon 11-03-2024 HP H&P reviewed. The patient was examined and there are no changes to the H&P. Acute onset RUQ abdominal pain associated with eating, [...] today to assess the upper GI tract. Normal [facility] NURSNOTEon 11-03-2024 NURSNOTE Pt was brought into [facility] by tech. D/T computer issues RN was unable to chart or arrive pt in computer. RN verified pt had removed all belongings was only in a gown. Normal [facility] POCT GLUCOSE METER UNSOLICIT ED RESULTSon 11-03-2024 Glucose [Mass/Vol] 135 mg/dL High 70-105 [facility] Comment on above: Order Comment: Waive d Testing in the ED is performed under the ED CLIA certificate #[id number]. Result Comment: dnap ier3 Performed By: #### L [id number] ####[facility] ([facility])[address] [place] [address] Glucose [Mass/Vol] 125 mg/dL High 70-105 [facility] Comment on above: Order Comment: Waive d Testing in the ED is performed under the ED CLIA certificate #[id number]. Result Comment: dnap ier3 Performed By: #### L [id number] #### [facility] ([facility]) [address] [place] [address] 30on 11-02-2024 30 Problem: Pain - Adul t Goal: Verbalizes/displays adequate comfort level or baseline comfort level Outcome: Progressing Problem: Safety - Adult Goal: Free from fall injury Outcome: Progressing Problem: Discharge Planning Goal: Discharge to home or other facility with appropriate resources Outcome: Progressing Problem: Chronic Conditions and Co-morbidities Goal: Patient's chronic conditions and co-morbidity symptoms are monitored and maintained or improved Outcome: Progressing Problem: Pain Goal: LTG-Verbalize decrease in pain Outcome: Progressing Goal: LTG-Demostrate that the pain does not impair ADLs Outcome: Progressing Goal: STG-Pt will verbalize decreased discomfort Outcome: Progressing Problem: Resident experiences pain/discomfort Goal: I will maintain an acceptable level of pain Outcome: Progressing Normal [facility] BASIC METABOLIC PANELon 10-07 Anion gap [Moles/Vol] 10 mmol/L Normal 7-20 [facility] Comment on above: Performed By: #### L [id number] #### [facility] ([facility]) [address] [place] [address] Calcium [Mass/Vol] 9.1 mg/dL Normal 8.6-10.3 [facility] Comment on above: Performed By: #### L [id number] #### [facility] ([facility]) [address] [place] [address] Chloride [Moles/Vol] 101 mmol/L Normal 98-107 [facility] Comment on above: Performed By: #### L [id number] #### [facility] ([facility]) [address] [place] [address] CO2 [Moles/Vol] 29 mmol/L Normal 21-31 [facility] Comment on above: Performed By: #### L [id number] #### [facility] ([facility]) [address] [place] [address] Creatinine [Mass/Vol] 0.86 mg/dL Normal 0.60-1.20 [facility] Comment on above: Performed By: #### L [id number] #### [facility] ([facility]) [address] [place] [address] GLOMERULAR FILTRATION RATE ML/MIN/1.73 SQ M.PREDICTED 70.4 mL/min/1.73m*2 Normal >60.0 [facility] Comment on above: Result Comment: The [facility]???s estimated glomerular filtration rate (eGFR) will no longer include consideration of race in its calculation. The National Kid[employer] Foundation???s eGFR Task Force developed new recommendations for [...] disproportionately affect any one group of individuals. Performed By: #### L [id number] #### [facility] ([facility]) [address] [place] [address] Glucose [Mass/Vol] 126 mg/dL High 70-100 [facility] Comment on above: Performed By: #### L [id number] #### [facility] ([facility]) [address] [place] [address] Potassium [Moles/Vol] 3.8 mmol/L Normal 3.5-5.1 [facility] Comment on above: Performed By: #### L [id number] #### [facility] ([facility]) [address] [place] [address] Sodium [Moles/Vol] 136 mmol/L Normal 136-145 [facility] Comment on above: Performed By: #### L [id number] #### [facility] ([facility]) [address] [facility] [place] [address] Urea nitrogen [Mass/Vol] 9 mg/dL Normal 7-25 [facility] Comment on above: Performed By: #### L [id number] #### [facility] ([facility]) [address] [place] [address] UREA NITROGEN/CREATININE (MASS RATIO) IN SER/PLAS 10.5 Normal [facility] Comment on above: Performed By: #### L [id number] #### [facility] ([facility]) [address] [place] [address] CBC WITH AUTO DIFFERENTIALon 11-02-2024 Basophils (Bld) [#/Vol] 0.03 10*3/uL Normal 0.00-0.20 [facility] Comment on above: Performed By: #### L [id number] #### [facility] ([facility]) [address] [facility] [place] [address] Basophils/100 WBC (Bld) 0.5 % Normal 0.0-1.0 [facility] Comment on above: Performed By: #### L [id number] #### [facility] ([facility]) [address] [place] [address] Eosinophils (Bld) [#/Vol] 0.23 10*3/uL Normal 0.00-0.50 [facility] Comment on above: Performed By: #### L [id number] #### [facility] ([facility]) [address] [place] [address] Eosinophils/100 WBC (Bld) 3.6 % Normal 0.0-6.0 [facility] Comment on above: Performed By: #### L [id number] #### [facility] ([facility]) [address] [place] [address] Erythrocyte distribution width (RBC) [Ratio] 12.4 % Normal 11.5-15.0 [facility] Comment on above: Performed By: #### L [id number] #### [facility] ([facility]) [address] [place] [address] ERYTHROCYTE MEAN CORPUSCULAR HEMOGLOBIN CONCENTRATION (G/DL) BY AUTOMATED 35.2 g/dL High 32.0-35.0 [facility] Comment on above: Performed By: #### L [id number] #### [facility] ([facility]) [address] [place] [place] [address] Hematocrit (Bld) [Volume fraction] 36.9 % Normal 36.0-45.0 [facility] Comment on above: Performed By: #### L [id number] #### [facility] ([facility]) [address] [place] [address] Hemoglobin (Bld) [Mass/Vol] 13.0 g/dL Normal 12.0-15.0 [facility] Comment on above: Performed By: #### L [id number] #### [facility] ([facility]) [address] [address] Immature granulocytes (Bld) [#/Vol] 0.03 10*3/uL Normal 0.00-0.20 [facility] Comment on above: Performed By: #### L [id number] #### [facility] ([facility]) [address] [address] Immature granulocytes/100 WBC (Bld) 0.5 % Normal 0.0-1.0 [facility] Comment on above: Performed By: #### L [id number] #### [facility] ([facility]) [address] [place] [address] Lymphocytes (Bld) [#/Vol] 2.80 10*3/uL Normal 1.20-4.00 [facility] Comment on above: Performed By: #### L [id number] #### [facility] ([facility]) [address] [place] [address] Lymphocytes/100 WBC (Bld) 44.0 % Normal 20.0-45.0 [facility] Comment on above: Performed By: #### L [id number] #### [facility] ([facility]) [address] [place] [address] MCH (RBC) [Entitic mass] 32.1 pg Normal 27.0-33.0 [facility] Comment on above: Performed By: #### L [id number] #### [facility] ([facility]) [address] [place] [address] MCV (RBC) [Entitic vol] 91.1 fL Normal 82.0-98.0 [facility] Comment on above: Performed By: #### L [id number] #### [facility] ([facility]) [address] [place] [address] Monocytes (Bld) [#/Vol] 0.30 10*3/uL Normal 0.10-1.00 [facility] Comment on above: Performed By: #### L [id number] #### [facility] ([facility]) [address] [place] [address] Monocytes/100 WBC (Bld) 4.7 % Low 5.0-12.0 [facility] Comment on above: Performed By: #### L [id number] #### [facility] ([facility]) [address] [place] [address] Neutrophils (Bld) [#/Vol] 2.97 10*3/uL Normal 1.60-7.60 [facility] Comment on above: Performed By: #### L [id number] #### [facility] ([facility]) [address] [address] Neutrophils/100 WBC (Bld) 46.7 % Normal 40.0-72.0 [facility] Comment on above: Performed By: #### L [id number] #### [facility] ([facility]) [address] [address] NRBC (PER 100 WBCS) BY AUTOMATED COUNT 0.0 % Normal 0 [facility] Comment on above: Performed By: #### L [id number] #### [facility] ([facility]) [address] [place] [address] PLATELETS (10*3/UL) IN BLOOD AUTOMATED COUNT 162 10*3/uL Normal 150-400 [facility] Comment on above: Performed By: #### L [id number] #### [facility] ([facility]) [address] [place] [address] RBC (Bld) [#/Vol] 4.05 10*6/uL Normal 3.80-5.00 [facility] Comment on above: Performed By: #### L [id number] #### [facility] ([facility]) [address] [place] [address] WBC (Bld) [#/Vol] 6.36 10*3/uL Normal 4.00-10.60 [facility] Comment on above: Performed By: #### L [id number] #### [facility] ([facility]) [address] [place] [address] HEPATIC FUNCTION PANELon Albumin [Mass/Vol] 4.3 g/dL Normal 3.5-5.7 [facility] Comment on above: Performed By: #### L [id number] #### [facility] ([facility]) [address] [address] ALP [Catalytic activity/Vol] 71 U/L Normal 34-104 [facility] Comment on above: Performed By: #### L [id number] #### [facility] ([facility]) [address] [place] [address] ALT [Catalytic activity/Vol] 26 U/L Normal 7-52 [facility] Comment on above: Performed By: #### L [id number] #### [facility] ([facility]) [address] [place] [address] AST [Catalytic activity/Vol] 25 U/L Normal 13-39 [facility] Comment on above: Performed By: #### L [id number] #### [facility] ([facility]) [address] [place] [address] Bilirubin [Mass/Vol] 1.0 mg/dL Normal 0.3-1.0 [facility] Comment on above: Performed By: #### L [id number] #### [facility] ([facility]) [address] [place] [address] Magnesium [Mass/Vol] 0.2 mg/dL Normal 0-0.2 [facility] Comment on above: Performed By: #### L [id number] #### [facility] ([facility]) [address] [place] [address] Protein [Mass/Vol] 7.1 g/dL Normal 6.0-8.3 [facility] Comment on above: Performed By: #### L [id number] #### [facility] ([facility]) [address] [place] [address] NURSNOTEon 11-02-2024 NURSNOTE Patient off unit for swallow study. Normal [facility] POCT GLUCOSE METER UNSOLICIT ED RESULTSon 11-02-2024 Glucose [Mass/Vol] 124 mg/dL High 70-105 [facility] Comment on above: Order Comment: Waive d Testing in the ED is performed under the ED CLIA certificate #[id number]. Result Comment: bacr es Performed By: #### L [id number] ####[facility] ([facility])[address] [place] [address] Glucose [Mass/Vol] 125 mg/dL High 70-105 [facility] Comment on above: Order Comment: Waive d Testing in the ED is performed under the ED CLIA certificate #[id number]. Result Comment: cmey ett Performed By: #### L [id number] ####[facility] ([facility])[address] [place] [address] Glucose [Mass/Vol] 200 mg/dL High 70-105 [facility] Comment on above: Order Comment: Waive d Testing in the ED is performed under the ED CLIA certificate #[id number]. Result Comment: cmey ett Performed By: #### L [id number] #### [facility] ([facility]) [address] [place] [address] Glucose [Mass/Vol] 138 mg/dL High 70-105 [facility] Comment on above: Order Comment: Waive d Testing in the ED is performed under the ED CLIA certificate #[id number]. Result Comment: cmey ett Performed By: #### L [id number] #### [facility] ([facility]) [address] [place] [address] 30on 11-01-2024 30 The patient is Moderately Stable - Low risk of patient condition declining or worsening The patient's goals for the shift include pain control, testing The clinical goals for the shift include stable vitals, pain control, fall prevention Normal [facility] 30 The patient is Moderately Stable - Low risk of patient condition declining or worsening The patient's goals for the shift include pain control, testing The clinical goals for the shift include stable vitals, pain control, fall prevention Problem: Pain - Adult Goal: Verbalizes/displays adequate comfort level or baseline comfort level 11/01/20241758 by Vic Montes, RN Outcome: Progressing 11/01/20241757 by Vic Montes, RN Outcome: Progressing Problem: Safety - Adult Goal: Free from fall injury 11/01/20241758 by Vic Simon, RN Outcome: Progressing 11/01/20241757 by Vic Montes RN Outcome: Progressing Problem: Discharge Planning Goal: Discharge to home or other facility with appropriate resources 11/01/20241758 by Vic Montes RN Outcome: Progressing 11/01/20241757 by Vic Montes RN Outcome: Progressing Problem: Chronic Conditions and Co-morbidities Goal: Patient's chronic conditions and co-morbidity symptoms are monitored and maintained or improved 11/01/20241758 by Vic Montes RN Outcome: Progressing 11/01/20241757 by Vic Montes RN Outcome: Progressing Problem: Pain Goal: LTG-Verbalize decrease in pain Outcome: Progressing Goal: LTG-Demostrate that the pain does not impair ADLs Outcome: Progressing Goal: STG-Pt will verbalize decreased discomfort Outcome: Progressing Normal [facility] BASIC METABOLIC PANELon 07-2 Anion gap [Moles/Vol] 10 mmol/L Normal 7-20 [facility] Comment on above: Performed By: #### L [id number] #### [facility] ([facility]) [address] [place] [address] Calcium [Mass/Vol] 8.7 mg/dL Normal 8.6-10.3 [facility] Comment on above: Performed By: #### L [id number] #### [facility] ([facility]) [address] [place] [address] Chloride [Moles/Vol] 103 mmol/L Normal 98-107 [facility] Comment on above: Performed By: #### L [id number] #### [facility] ([facility]) [address] [place] [address] CO2 [Moles/Vol] 28 mmol/L Normal 21-31 [facility] Comment on above: Performed By: #### L [id number] #### [facility] ([facility]) [address] [place] [address] Creatinine [Mass/Vol] 0.88 mg/dL Normal 0.60-1.20 [facility] Comment on above: Performed By: #### L [id number] #### [facility] ([facility]) [address] [place] [address] GLOMERULAR FILTRATION RATE ML/MIN/1.73 SQ M.PREDICTED 68.5 mL/min/1.73m*2 Normal >60.0 [facility] Comment on above: Result Comment: The [facility]???s estimated glomerular filtration rate (eGFR) will no longer include consideration of race in its calculation. The [employer]???s eGFR Task Force developed new recommendations for [...] disproportionately affect any one group of individuals. Performed By: #### L [id number] #### [facility] ([facility]) [address] [place] [address] Glucose [Mass/Vol] 124 mg/dL High 70-100 [facility] Comment on above: Performed By: #### L [id number] #### [facility] ([facility]) [address] [place] [address] Potassium [Moles/Vol] 3.8 mmol/L Normal 3.5-5.1 [facility] Comment on above: Performed By: #### L [id number] #### [facility] ([facility]) [address] [place] [address] Sodium [Moles/Vol] 137 mmol/L Normal 136-145 [facility] Comment on above: Performed By: #### L [id number] #### [facility] ([facility]) [address] [place] [address] Urea nitrogen [Mass/Vol] 10 mg/dL Normal 7-25 [facility] Comment on above: Performed By: #### L [id number] #### [facility] ([facility]) [address] [place] [address] UREA NITROGEN/CREATININE (MASS RATIO) IN SER/PLAS 11.4 Normal [facility] Comment on above: Performed By: #### L [id number] #### [facility] ([facility]) [address] [place] [address] CBC WITH AUTO DIFFERENTIALon 11-01-2024 Basophils (Bld) [#/Vol] 0.03 10*3/uL Normal 0.00-0.20 [facility] Comment on above: Performed By: #### L [id number] ####[facility] ([facility])[address] [place] [address] Basophils/100 WBC (Bld) 0.5 % Normal 0.0-1.0 [facility] Comment on above: Performed By: #### L [id number] ####[facility] ([facility])[address] [place] [address] Eosinophils (Bld) [#/Vol] 0.16 10*3/uL Normal 0.00-0.50 [facility] Comment on above: Performed By: #### L [id number] ####[facility] ([facility])[address] [place] [address] Eosinophils/100 WBC (Bld) 2.7 % Normal 0.0-6.0 [facility] Comment on above: Performed By: #### L [id number] ####[facility] ([facility])[address] [place] [address] Erythrocyte distribution width (RBC) [Ratio] 12.4 % Normal 11.5-15.0 [facility] Comment on above: Performed By: #### L [id number] ####[facility] ([facility])[address] [place] [address] ERYTHROCYTE MEAN CORPUSCULAR HEMOGLOBIN CONCENTRATION (G/DL) BY AUTOMATED 35.5 g/dL High 32.0-35.0 [facility] Comment on above: Performed By: #### L [id number] ####[facility] ([facility])[address] [place] [address] Hematocrit (Bld) [Volume fraction] 34.4 % Low 36.0-45.0 [facility] Comment on above: Performed By: #### L [id number] ####[facility] ([facility])[address] [place] [address] Hemoglobin (Bld) [Mass/Vol] 12.2 g/dL Normal 12.0-15.0 [facility] Comment on above: Performed By: #### L [id number] ####[facility] ([facility])[address] [place] [address] Immature granulocytes (Bld) [#/Vol] 0.01 10*3/uL Normal 0.00-0.20 [facility] Comment on above: Performed By: #### L [id number] ####[facility] ([facility])[address] [place] [address] Immature granulocytes/100 WBC (Bld) 0.2 % Normal 0.0-1.0 [facility] Comment on above: Performed By: #### L [id number] ####[facility] ([facility])[address] [place] [address] Lymphocytes (Bld) [#/Vol] 3.10 10*3/uL Normal 1.20-4.00 [facility] Comment on above: Performed By: #### L [id number] ####[facility] ([facility])[address] [place] [address] Lymphocytes/100 WBC (Bld) 51.7 % High 20.0-45.0 [facility] Comment on above: Performed By: #### L [id number] ####[facility] ([facility])[address] [place] [address] MCH (RBC) [Entitic mass] 32.4 pg Normal 27.0-33.0 [facility] Comment on above: Performed By: #### L [id number] ####[facility] ([facility])[address] [place] [address] MCV (RBC) [Entitic vol] 91.2 fL Normal 82.0-98.0 [facility] Comment on above: Performed By: #### L [id number] ####[facility] ([facility])[address] [address] Monocytes (Bld) [#/Vol] 0.29 10*3/uL Normal 0.10-1.00 [facility] Comment on above: Performed By: #### L [id number] ####[facility] ([facility])[address] [address] Monocytes/100 WBC (Bld) 4.8 % Low 5.0-12.0 [facility] Comment on above: Performed By: #### L [id number] ####[facility] ([facility])[address] [address] Neutrophils (Bld) [#/Vol] 2.41 10*3/uL Normal 1.60-7.60 [facility] Comment on above: Performed By: #### L [id number] ####[facility] ([facility])[address] [address] Neutrophils/100 WBC (Bld) 40.1 % Normal 40.0-72.0 [facility] Comment on above: Performed By: #### L [id number] ####[facility] ([facility])[address] [address] NRBC (PER 100 WBCS) BY AUTOMATED COUNT 0.0 % Normal 0 [facility] Comment on above: Performed By: #### L [id number] ####[facility] ([facility])[address] [address] PLATELETS (10*3/UL) IN BLOOD AUTOMATED COUNT 148 10*3/uL Low 150-400 [facility] Comment on above: Performed By: #### L [id number] ####[facility] ([facility])[address] [place] [address] RBC (Bld) [#/Vol] 3.77 10*6/uL Low 3.80-5.00 [facility] Comment on above: Performed By: #### L [id number] ####[facility] ([facility])[address] [place] [address] WBC (Bld) [#/Vol] 6.00 10*3/uL Normal 4.00-10.60 [facility] Comment on above: Performed By: #### L [id number] ####[facility] ([facility])[address] [place] [address] HEPATIC FUNCTION PANELon Albumin [Mass/Vol] 4.1 g/dL Normal 3.5-5.7 [facility] Comment on above: Performed By: #### L [id number] #### [facility] ([facility]) [address] [place] [address] ALP [Catalytic activity/Vol] 65 U/L Normal 34-104 [facility] Comment on above: Performed By: #### L [id number] #### [facility] ([facility]) [address] [place] [address] ALT [Catalytic activity/Vol] 25 U/L Normal 7-52 [facility] Comment on above: Performed By: #### L [id number] #### [facility] ([facility]) [address] [place] [address] AST [Catalytic activity/Vol] 22 U/L Normal 13-39 [facility] Comment on above: Performed By: #### L [id number] #### [facility] ([facility]) [address] [place] [address] Bilirubin [Mass/Vol] 0.8 mg/dL Normal 0.3-1.0 [facility] Comment on above: Performed By: #### L [id number] #### [facility] ([facility]) [address] [place] [address] Magnesium [Mass/Vol] 0.2 mg/dL Normal 0-0.2 [facility] Comment on above: Performed By: #### L [id number] #### [facility] ([facility]) [address] [place] [address] Protein [Mass/Vol] 6.7 g/dL Normal 6.0-8.3 [facility] Comment on above: Performed By: #### L [id number] #### [facility] ([facility]) [address] [place] [address] POCT GLUCOSE METER UNSOLICIT ED RESULTSon 11-01-2024 Glucose [Mass/Vol] 155 mg/dL High 70-105 [facility] Comment on above: Order Comment: Waive d Testing in the ED is performed under the ED CLIA certificate #[id number]. Result Comment: bacr es Performed By: #### L [id number] #### [facility] ([facility]) [address] [place] [address] Glucose [Mass/Vol] 146 mg/dL High 70-105 [facility] Comment on above: Order Comment: Waive d Testing in the ED is performed under the ED CLIA certificate #[id number]. Result Comment: [email or web address] [email or web address] Performed By: #### L [id number] #### [facility] ([facility]) [address] [place] [address] Glucose [Mass/Vol] 127 mg/dL High 70-105 [facility] Comment on above: Order Comment: Waive d Testing in the ED is performed under the ED CLIA certificate #[id number]. Result Comment: mattie narvaez Performed By: #### L [id number] #### [facility] ([facility]) [address] [place] [address] Glucose [Mass/Vol] 166 mg/dL High 70-105 [facility] Comment on above: Order Comment: Waive d Testing in the ED is performed under the ED CLIA certificate #[id number]. Result Comment: mattie narvaez Performed By: #### L [id number] #### [facility] ([facility]) [address] [place] [address] 30on 10-31-2024 30 Problem: Pain - Adul t Goal: Verbalizes/displays adequate comfort level or baseline comfort level Outcome: Progressing The patient is Moderately Stable - Low risk of patient condition declining or worsening The patient's goals for the shift include pain control, comfort The clinical goals for the shift include VSS, pain control Normal [facility] 30 The patient is Moderately Stable - Low risk of patient condition declining or worsening The patient's goals for the shift include MRCP The clinical goals for the shift include VSS, pain control Problem: Pain - Adult Goal: Verbalizes/displays adequate comfort level or baseline comfort level Outcome: Progressing Problem: Safety - Adult Goal: Free from fall injury Outcome: Progressing Problem: Discharge Planning Goal: Discharge to home or other facility with appropriate resources Outcome: Progressing Problem: Chronic Conditions and Co-morbidities Goal: Patient's chronic conditions and co-morbidity symptoms are monitored and maintained or improved Outcome: Progressing Problem: Pain Goal: LTG-Verbalize decrease in pain Outcome: Progressing Goal: LTG-Demostrate that the pain does not impair ADLs Outcome: Progressing Goal: STG-Pt will verbalize decreased discomfort Outcome: Progressing Normal [facility] 30 Problem: Pain - Adul t Goal: Verbalizes/displays adequate comfort level or baseline comfort level Outcome: Progressing Flowsheets (Taken 10/30/20241918) Verbalizes/displays adequate comfort level or baseline comfort level: Encourage patient to monitor pain and request assistance Assess pain using appropriate pain scale Administer analgesics based on type and severity of pain and evaluate response Implement non-pharmacological measures as appropriate and evaluate response Consider cultural and social influences on pain and pain management Notify Licensed Independent Practitioner if interventions unsuccessful or patient reports new pain Problem: Safety - Adult Goal: Free from fall injury Outcome: Progressing Flowsheets (Taken 10/30/2024 2300) Free from fall injury: Assess patient frequently for physical needs Identify cognitive and physical deficits and behaviors that affect risk of falls Isabella fall precautions as indicated by assessment Educate patient/family on patient safety, including physical limitations Instruct patient to call for assistance with activity based on assessment Modify environment to reduce risk of injury Consider OT/PT consult to assist with strengthening/mobility Problem: Discharge Planning Goal: Discharge to home or other facility with appropriate resources Outcome: Progressing Flowsheets (Taken 10/30/20241918) Discharge to home or other facility with appropriate resources: Identify barriers to discharge with patient and caregiver Arrange for needed discharge resources and transportation as appropriate Identify discharge learning needs (meds, wound care, etc) Arrange for interpreters to assist at discharge as needed Refer to discharge planning if patient needs post-hospital services based on physician order or complex needs related to functional status, cognitive ability or social support system Problem: Chronic Conditions and Co-morbidities Goal: Patient's chronic conditions and co-morbidity symptoms are monitored and maintained or improved Outcome: Progressing Flowsheets (Taken 10/30/20241918) Care Plan - Patient's Chronic Conditions and Co-Morbidity Symptoms are Monitored and Maintained or Improved: Monitor and assess patient's chronic conditions and comorbid symptoms for stability, deterioration, or improvement Collaborate with multidisciplinary team to address chronic and comorbid conditions and prevent exacerbation or deterioration Update acute care plan with appropriate goals if chronic or comorbid symptoms are exacerbated and prevent overall improvement and discharge Problem: Pain Goal: LTG-Verbalize decrease in pain Outcome: Progressing Goal: LTG-Demostrate that the pain does not impair ADLs Outcome: Progressing Goal: STG-Pt will verbalize decreased discomfort Outcome: Progressing The patient is Moderately Stable - Low risk of patient condition declining or worsening The patient's goals for the shift include MRCP The clinical goals for the shift include Vss, Pain control, Over the shift, the patient did not make progress toward the following goals. Barriers to progression include knowledge deficit. Recommendations to address these barriers include education, review of treatment plan, assessment and coordination of needed resources. Normal [facility] BASIC METABOLIC PANELon 07-2 Anion gap [Moles/Vol] 9 mmol/L Normal 7-20 [facility] Comment on above: Performed By: #### L [id number] ####[facility] ([facility])[address] [place] [address] Calcium [Mass/Vol] 8.6 mg/dL Normal 8.6-10.3 [facility] Comment on above: Performed By: #### L [id number] ####[facility] ([facility])[address] [place] [address] Chloride [Moles/Vol] 104 mmol/L Normal 98-107 [facility] Comment on above: Performed By: #### L [id number] ####[facility] ([facility])[address] [place] [address] CO2 [Moles/Vol] 27 mmol/L Normal 21-31 [facility] Comment on above: Performed By: #### L [id number] ####[facility] ([facility])[address] [place] [address] Creatinine [Mass/Vol] 0.93 mg/dL Normal 0.60-1.20 [facility] Comment on above: Performed By: #### L [id number] ####[facility] ([facility])[address] [place] [address] GLOMERULAR FILTRATION RATE ML/MIN/1.73 SQ M.PREDICTED 64.1 mL/min/1.73m*2 Normal >60.0 [facility] Comment on above: Result Comment: [facility]???s estimated glomerular filtration rate (eGFR) will no longer include consideration of race in its calculation. The National Kidney Foundation???s eGFR Task Force developed new recommendations for [...] disproportionately affect any one group of individuals. Performed By: #### L [id number] ####[facility] ([facility])[address] [place] [address] Glucose [Mass/Vol] 99 mg/dL Normal 70-100 [facility] Comment on above: Performed By: #### L [id number] ####[facility] ([facility])[address] [place] [address] Potassium [Moles/Vol] 4.3 mmol/L Normal 3.5-5.1 [facility] Comment on above: Performed By: #### L [id number] ####[facility] ([facility])[address] [place] [address] Sodium [Moles/Vol] 136 mmol/L Normal 136-145 [facility] Comment on above: Performed By: #### L [id number] ####[facility] ([facility])[address] [place] [address] Urea nitrogen [Mass/Vol] 12 mg/dL Normal 7-25 [facility] Comment on above: Performed By: #### L [id number] ####[facility] ([facility])[address] [place] [address] UREA NITROGEN/CREATININE (MASS RATIO) IN SER/PLAS 12.9 Normal [facility] Comment on above: Performed By: #### L [id number] ####[facility] ([facility])[address] [place] [address] CBC WITH AUTO DIFFERENTIALon 10-31-2024 Basophils (Bld) [#/Vol] 0.03 10*3/uL Normal 0.00-0.20 [facility] Comment on above: Performed By: #### L [id number] #### [facility] ([facility]) [address] [place] [address] Basophils/100 WBC (Bld) 0.4 % Normal 0.0-1.0 [facility] Comment on above: Performed By: #### L [id number] #### [facility] ([facility]) [address] [place] [address] Eosinophils (Bld) [#/Vol] 0.13 10*3/uL Normal 0.00-0.50 [facility] Comment on above: Performed By: #### L [id number] #### [facility] ([facility]) [address] [place] [address] Eosinophils/100 WBC (Bld) 1.6 % Normal 0.0-6.0 [facility] Comment on above: Performed By: #### L [id number] #### [facility] ([facility]) [address] [place] [address] Erythrocyte distribution width (RBC) [Ratio] 12.6 % Normal 11.5-15.0 [facility] Comment on above: Performed By: #### L [id number] #### [facility] ([facility]) [address] [place] [address] ERYTHROCYTE MEAN CORPUSCULAR HEMOGLOBIN CONCENTRATION (G/DL) BY AUTOMATED 34.7 g/dL Normal 32.0-35.0 [facility] Comment on above: Performed By: #### L [id number] #### [facility] ([facility]) [address] [address] Hematocrit (Bld) [Volume fraction] 34.0 % Low 36.0-45.0 [facility] Comment on above: Performed By: #### L [id number] #### [facility] ([facility]) [address] [place] [address] Hemoglobin (Bld) [Mass/Vol] 11.8 g/dL Low 12.0-15.0 [facility] Comment on above: Performed By: #### L [id number] #### [facility] ([facility]) [address] [place] [address] Immature granulocytes (Bld) [#/Vol] 0.02 10*3/uL Normal 0.00-0.20 [facility] Comment on above: Performed By: #### L [id number] #### [facility] ([facility]) [address] [place] [address] Immature granulocytes/100 WBC (Bld) 0.2 % Normal 0.0-1.0 [facility] Comment on above: Performed By: #### L [id number] #### [facility] ([facility]) [address] [place] [address] Lymphocytes (Bld) [#/Vol] 4.13 10*3/uL High 1.20-4.00 [facility] Comment on above: Performed By: #### L [id number] #### [facility] ([facility]) [address] [place] [address] Lymphocytes/100 WBC (Bld) 51.3 % High 20.0-45.0 [facility] Comment on above: Performed By: #### L [id number] #### [facility] ([facility]) [address] [address] MCH (RBC) [Entitic mass] 31.8 pg Normal 27.0-33.0 [facility] Comment on above: Performed By: #### L [id number] #### [facility] ([facility]) [address] [place] [address] MCV (RBC) [Entitic vol] 91.6 fL Normal 82.0-98.0 [facility] Comment on above: Performed By: #### L [id number] #### [facility] ([facility]) [address] [place] [address] Monocytes (Bld) [#/Vol] 0.36 10*3/uL Normal 0.10-1.00 [facility] Comment on above: Performed By: #### L [id number] #### [facility] ([facility]) [address] [place] [address] Monocytes/100 WBC (Bld) 4.5 % Low 5.0-12.0 [facility] Comment on above: Performed By: #### L [id number] #### [facility] ([facility]) [address] [place] [address] Neutrophils (Bld) [#/Vol] 3.38 10*3/uL Normal 1.60-7.60 [facility] Comment on above: Performed By: #### L [id number] #### [facility] ([facility]) [address] [place] [address] Neutrophils/100 WBC (Bld) 42.0 % Normal 40.0-72.0 [facility] Comment on above: Performed By: #### L [id number] #### [facility] ([facility]) [address] [place] [address] NRBC (PER 100 WBCS) BY AUTOMATED COUNT 0.0 % Normal 0 [facility] Comment on above: Performed By: #### L [id number] #### [facility] ([facility]) [address] [place] [address] PLATELETS (10*3/UL) IN BLOOD AUTOMATED COUNT 148 10*3/uL Low 150-400 [facility] Comment on above: Performed By: #### L [id number] #### [facility] ([facility]) [address] [place] [address] RBC (Bld) [#/Vol] 3.71 10*6/uL Low 3.80-5.00 [facility] Comment on above: Performed By: #### L [id number] #### [facility] ([facility]) [address] [place] [address] WBC (Bld) [#/Vol] 8.05 10*3/uL Normal 4.00-10.60 [facility] Comment on above: Performed By: #### L [id number] #### [facility] ([facility]) [address] [place] [address] HEPATIC FUNCTION PANELon Albumin [Mass/Vol] 3.9 g/dL Normal 3.5-5.7 [facility] Comment on above: Performed By: #### L [id number] ####[facility] ([facility])[address] [place] [address] ALP [Catalytic activity/Vol] 63 U/L Normal 34-104 [facility] Comment on above: Performed By: #### L [id number] ####[facility] ([facility])[address] [place] [address] ALT [Catalytic activity/Vol] 24 U/L Normal 7-52 [facility] Comment on above: Performed By: #### L [id number] ####[facility] ([facility])[address] [place] [address] AST [Catalytic activity/Vol] 22 U/L Normal 13-39 [facility] Comment on above: Performed By: #### L [id number] ####[facility] ([facility])[address] [place] [address] Bilirubin [Mass/Vol] 1.0 mg/dL Normal 0.3-1.0 [facility] Comment on above: Performed By: #### L [id number] ####[facility] ([facility])[address] [place] [address] Magnesium [Mass/Vol] 0.3 mg/dL High 0-0.2 [facility] Comment on above: Performed By: #### L [id number] ####[facility] ([facility])[address] [place] [address] Protein [Mass/Vol] 6.3 g/dL Normal 6.0-8.3 [facility] Comment on above: Performed By: #### L [id number] ####[facility] ([facility])[address] [place] [address] POCT GLUCOSE METER UNSOLICIT ED RESULTSon 10-31-2024 Glucose [Mass/Vol] 124 mg/dL High 70-105 [facility] Comment on above: Order Comment: Waive d Testing in the ED is performed under the ED CLIA certificate #[id number]. Result Comment: [email or web address] Performed By: #### L [id number] #### [facility] ([facility]) [address] [place] [address] Glucose [Mass/Vol] 121 mg/dL High 70-105 [facility] Comment on above: Order Comment: Waive d Testing in the ED is performed under the ED CLIA certificate #[id number]. Result Comment: [email or web address] Performed By: #### L [id number] #### [facility] ([facility]) [address] [place] [address] Glucose [Mass/Vol] 115 mg/dL High 70-105 [facility] Comment on above: Order Comment: Waive d Testing in the ED is performed under the ED CLIA certificate #[id number]. Result Comment: [email or web address] Performed By: #### L [id number] #### [facility] ([facility]) [address] [place] [address] Glucose [Mass/Vol] 122 mg/dL High 70-105 [facility] Comment on above: Order Comment: Waive d Testing in the ED is performed under the ED CLIA certificate #[id number]. Result Comment: [email or web address] Performed By: #### L [id number] ####[facility] ([facility])[address] [place] [address] 30on 10-30-2024 30 The patient is Moderately Stable - Low risk of patient condition declining or worsening The patient's goals for the shift include pain control The clinical goals for the shift include VSS pain control Problem: Pain - Adult Goal: Verbalizes/displays adequate comfort level or baseline comfort level Outcome: Progressing Problem: Safety - Adult Goal: Free from fall injury Outcome: Progressing Problem: Discharge Planning Goal: Discharge to home or other facility with appropriate resources Outcome: Progressing Problem: Chronic Conditions and Co-morbidities Goal: Patient's chronic conditions and co-morbidity symptoms are monitored and maintained or improved Outcome: Progressing Problem: Pain Goal: LTG-Verbalize decrease in pain Outcome: Progressing Goal: LTG-Demostrate that the pain does not impair ADLs Outcome: Progressing Goal: STG-Pt will verbalize decreased discomfort Outcome: Progressing Normal [facility] 30 The patient is Problem: Pain - Adult Goal: Verbalizes/displays adequate comfort level or baseline comfort level Outcome: Progressing Flowsheets (Taken 10/30/202429) Verbalizes/displays adequate comfort level or baseline comfort level: Encourage patient to monitor pain and request assistance Assess pain using appropriate pain scale Administer analgesics based on type and severity of pain and evaluate response Implement non-pharmacological measures as appropriate and evaluate response Consider cultural and social influences on pain and pain management Notify Licensed Independent Practitioner if interventions unsuccessful or patient reports new pain Problem: Safety - Adult Goal: Free from fall injury Outcome: Progressing Flowsheets (Taken 10/30/202436) Free from fall injury: Assess patient frequently for physical needs Identify cognitive and physical deficits and behaviors that affect risk of falls Isabella fall precautions as indicated by assessment Educate patient/family on patient safety, including physical limitations Instruct patient to call for assistance with activity based on assessment Modify environment to reduce risk of injury Consider OT/PT consult to assist with strengthening/mobility Problem: Discharge Planning Goal: Discharge to home or other facility with appropriate resources Outcome: Progressing Flowsheets (Taken 10/30/202429) Discharge to home or other facility with appropriate resources: Identify barriers to discharge with patient and caregiver Arrange for needed discharge resources and transportation as appropriate Identify discharge learning needs (meds, wound care, etc) Arrange for interpreters to assist at discharge as needed Refer to discharge planning if patient needs post-hospital services based on physician order or complex needs related to functional status, cognitive ability or social support system Problem: Chronic Conditions and Co-morbidities Goal: Patient's chronic conditions and co-morbidity symptoms are monitored and maintained or improved Outcome: Progressing Flowsheets (Taken 10/30/2024 0030) Care Plan - Patient's Chronic Conditions and Co-Morbidity Symptoms are Monitored and Maintained or Improved: Monitor and assess patient's chronic conditions and comorbid symptoms for stability, deterioration, or improvement Collaborate with multidisciplinary team to address chronic and comorbid conditions and prevent exacerbation or deterioration Update acute care plan with appropriate goals if chronic or comorbid symptoms are exacerbated and prevent overall improvement and discharge Problem: Pain Goal: LTG-Verbalize decrease in pain Outcome: Progressing Goal: LTG-Demostrate that the pain does not impair ADLs Outcome: Progressing Goal: STG-Pt will verbalize decreased discomfort Outcome: Progressing Problem: Resident experiences pain/discomfort Goal: I will maintain an acceptable level of pain Outcome: Progressing The patient's goals for the shift include pain control The clinical goals for the shift include VSS pain control Over the shift, the patient did not make progress toward the following goals. Barriers to progression include resources to manage medical concerns. Recommendations to address these barriers include education, assessment and coordination with needed resources, review of treatment plan. Normal [facility] BASIC METABOLIC PANELon 07-2 Anion gap [Moles/Vol] 10 mmol/L Normal 7-20 [facility] Comment on above: Performed By: #### L [id number] #### [facility] ([facility]) [address] [place] [address] Calcium [Mass/Vol] 8.5 mg/dL Low 8.6-10.3 [facility] Comment on above: Performed By: #### L [id number] #### [facility] ([facility]) [address] [place] [address] Chloride [Moles/Vol] 104 mmol/L Normal 98-107 [facility] Comment on above: Performed By: #### L [id number] #### [facility] ([facility]) [address] [place] [address] CO2 [Moles/Vol] 26 mmol/L Normal 21-31 [facility] Comment on above: Performed By: #### L [id number] #### [facility] ([facility]) [address] [place] [address] Creatinine [Mass/Vol] 0.99 mg/dL Normal 0.60-1.20 [facility] Comment on above: Performed By: #### L [id number] #### [facility] ([facility]) [address] [place] [address] GLOMERULAR FILTRATION RATE ML/MIN/1.73 SQ M.PREDICTED 59.5 mL/min/1.73m*2 Low >60.0 [facility] Comment on above: Result Comment: [facility]???s estimated glomerular filtration rate (eGFR) will no longer include consideration of race in its calculation. The National Kidney Foundation???s eGFR Task Force developed new recommendations for [...] disproportionately affect any one group of individuals. Performed By: #### L [id number] #### [facility] ([facility]) [address] [place] [address] Glucose [Mass/Vol] 106 mg/dL High 70-100 [facility] Comment on above: Performed By: #### L [id number] #### [facility] ([facility]) [address] [place] [address] Potassium [Moles/Vol] 3.4 mmol/L Low 3.5-5.1 [facility] Comment on above: Performed By: #### L [id number] #### [facility] ([facility]) [address] [place] [address] Sodium [Moles/Vol] 137 mmol/L Normal 136-145 [facility] Comment on above: Performed By: #### L [id number] #### [facility] ([facility]) [address] [place] [address] Urea nitrogen [Mass/Vol] 13 mg/dL Normal 7-25 [facility] Comment on above: Performed By: #### L [id number] #### [facility] ([facility]) [address] [place] [address] UREA NITROGEN/CREATININE (MASS RATIO) IN SER/PLAS 13.1 Normal [facility] Comment on above: Performed By: #### L [id number] #### [facility] ([facility]) [address] [place] [address] Anion gap [Moles/Vol] 13 mmol/L Normal 7-20 [facility] Comment on above: Performed By: #### L [id number] #### [facility] ([facility]) [address] [place] [address] Calcium [Mass/Vol] 8.9 mg/dL Normal 8.6-10.3 [facility] Comment on above: Performed By: #### L [id number] #### [facility] ([facility]) [address] [place] [address] Chloride [Moles/Vol] 104 mmol/L Normal 98-107 [facility] Comment on above: Performed By: #### L [id number] #### [facility] ([facility]) [address] [place] [address] CO2 [Moles/Vol] 23 mmol/L Normal 21-31 [facility] Comment on above: Performed By: #### L [id number] #### [facility] ([facility]) [address] [place] [address] Creatinine [Mass/Vol] 1.06 mg/dL Normal 0.60-1.20 [facility] Comment on above: Performed By: #### L [id number] #### [facility] ([facility]) [address] [place] [address] GLOMERULAR FILTRATION RATE ML/MIN/1.73 SQ M.PREDICTED 54.8 mL/min/1.73m*2 Low >60.0 [facility] Comment on above: Result Comment: [facility]???s estimated glomerular filtration rate (eGFR) will no longer include consideration of race in its calculation. The National Kidney Foundation???s eGFR Task Force developed new recommendations for [...] disproportionately affect any one group of individuals. Performed By: #### L [id number] #### [facility] ([facility]) [address] [place] [address] Glucose [Mass/Vol] 114 mg/dL High 70-100 [facility] Comment on above: Performed By: #### L [id number] #### [facility] ([facility]) [address] [place] [address] Potassium [Moles/Vol] 3.6 mmol/L Normal 3.5-5.1 [facility] Comment on above: Performed By: #### L [id number] #### [facility] ([facility]) [address] [place] [address] Sodium [Moles/Vol] 136 mmol/L Normal 136-145 [facility] Comment on above: Performed By: #### L [id number] #### [facility] ([facility]) [address] [place] [address] Urea nitrogen [Mass/Vol] 13 mg/dL Normal 7-25 [facility] Comment on above: Performed By: #### L [id number] #### [facility] ([facility]) [address] [place] [address] UREA NITROGEN/CREATININE (MASS RATIO) IN SER/PLAS 12.3 Normal [facility] Comment on above: Performed By: #### L [id number] #### [facility] ([facility]) [address] [place] [address] BLOOD CULTUREon 10-30-2024 Bacteria identified Cx Nom (Bld) No growth at 5 days Normal [facility] Comment on above: Performed By: #### L [id number] ####[facility] ([facility])[address] [place] [address] Order Comment: From a different site than #1., Blood CBCon 10-30-2024 Erythrocyte distribution width (RBC) [Ratio] 12.5 % Normal 11.5-15.0 [facility] Comment on above: Performed By: #### L [id number] #### [facility] ([facility]) [address] [place] [address] ERYTHROCYTE MEAN CORPUSCULAR HEMOGLOBIN CONCENTRATION (G/DL) BY AUTOMATED 35.1 g/dL High 32.0-35.0 [facility] Comment on above: Performed By: #### L [id number] #### [facility] ([facility]) [address] [place] [address] Hematocrit (Bld) [Volume fraction] 37.3 % Normal 36.0-45.0 [facility] Comment on above: Performed By: #### L [id number] #### [facility] ([facility]) [address] [place] [address] Hemoglobin (Bld) [Mass/Vol] 13.1 g/dL Normal 12.0-15.0 [facility] Comment on above: Performed By: #### L [id number] #### [facility] ([facility]) [address] [place] [address] MCH (RBC) [Entitic mass] 32.2 pg Normal 27.0-33.0 [facility] Comment on above: Performed By: #### L [id number] #### [facility] ([facility]) [address] [place] [address] MCV (RBC) [Entitic vol] 91.6 fL Normal 82.0-98.0 [facility] Comment on above: Performed By: #### L [id number] #### [facility] ([facility]) [address] [place] [address] PLATELETS (10*3/UL) IN BLOOD AUTOMATED COUNT 165 10*3/uL Normal 150-400 [facility] Comment on above: Performed By: #### L [id number] #### [facility] ([facility]) [address] [place] [address] RBC (Bld) [#/Vol] 4.07 10*6/uL Normal 3.80-5.00 [facility] Comment on above: Performed By: #### L [id number] #### [facility] ([facility]) [address] [place] [address] WBC (Bld) [#/Vol] 9.23 10*3/uL Normal 4.00-10.60 [facility] Comment on above: Performed By: #### L [id number] #### [facility] ([facility]) [address] [place] [address] CBC WITH AUTO DIFFERENTIALon 10-30-2024 Erythrocyte distribution width (RBC) [Ratio] 12.7 % Normal 11.5-15.0 [facility] Comment on above: Performed By: #### L [id number] ####[facility] ([facility])[address] [place] [address] ERYTHROCYTE MEAN CORPUSCULAR HEMOGLOBIN CONCENTRATION (G/DL) BY AUTOMATED 36.1 g/dL High 32.0-35.0 [facility] Comment on above: Performed By: #### L [id number] ####[facility] ([facility])[address] [place] [address] Hematocrit (Bld) [Volume fraction] 38.2 % Normal 36.0-45.0 [facility] Comment on above: Performed By: #### L [id number] ####[facility] ([facility])[address] [place] [address] Hemoglobin (Bld) [Mass/Vol] 13.8 g/dL Normal 12.0-15.0 [facility] Comment on above: Performed By: #### L [id number] ####[facility] ([facility])[address] [place] [address] MCH (RBC) [Entitic mass] 32.5 pg Normal 27.0-33.0 [facility] Comment on above: Performed By: #### L [id number] ####[facility] ([facility])[address] [place] [address] MCV (RBC) [Entitic vol] 90.1 fL Normal 82.0-98.0 [facility] Comment on above: Performed By: #### L [id number] ####[facility] ([facility])[address] [place] [address] NRBC (PER 100 WBCS) BY AUTOMATED COUNT 0.0 % Normal 0 [facility] Comment on above: Performed By: #### L [id number] ####[facility] ([facility])[address] [place] [address] PLATELETS (10*3/UL) IN BLOOD AUTOMATED COUNT 183 10*3/uL Normal 150-400 [facility] Comment on above: Performed By: #### L [id number] ####[facility] ([facility])[address] [place] [address] RBC (Bld) [#/Vol] 4.24 10*6/uL Normal 3.80-5.00 [facility] Comment on above: Performed By: #### L [id number] ####[facility] ([facility])[address] [place] [address] WBC (Bld) [#/Vol] 12.07 10*3/uL High 4.00-10.60 [facility] Comment on above: Performed By: #### L [id number] ####[facility] [facility] [place] [address] HEPATIC FUNCTION PANELon Albumin [Mass/Vol] 4.3 g/dL Normal 3.5-5.7 [facility] Comment on above: Performed By: #### L [id number] #### [facility] ([facility]) [address] [place] [address] ALP [Catalytic activity/Vol] 69 U/L Normal 34-104 [facility] Comment on above: Performed By: #### L [id number] #### [facility] ([facility]) [address] [place] [address] ALT [Catalytic activity/Vol] 28 U/L Normal 7-52 [facility] Comment on above: Performed By: #### L [id number] #### [facility] ([facility]) [address] [place] [address] AST [Catalytic activity/Vol] 22 U/L Normal 13-39 [facility] Comment on above: Performed By: #### L [id number] #### [facility] ([facility]) [address] [place] [address] Bilirubin [Mass/Vol] 1.5 mg/dL High 0.3-1.0 [facility] Comment on above: Performed By: #### L [id number] #### [facility] ([facility]) [address] [place] [address] Magnesium [Mass/Vol] 0.3 mg/dL High 0-0.2 [facility] Comment on above: Performed By: #### L [id number] #### [facility] ([facility]) [address] [place] [address] Protein [Mass/Vol] 7.1 g/dL Normal 6.0-8.3 [facility] Comment on above: Performed By: #### L [id number] #### [facility] ([facility]) [address] [place] [address] LACTIC ACID, PLASMAon 2024 LACTATE (MMOL/L) IN SER/PLAS 1.4 mmol/L Normal 0.5-2.2 [facility] Comment on above: Performed By: #### L [id number] ####[facility] ([facility])[address] [place] [address] LIPASEon 07-25-2025 LIPASE (U/L) IN SER/PLAS 42 U/L Normal 11-82 [facility] Comment on above: Performed By: #### L [id number] #### [facility] ([facility]) [address] [place] [address] MAGNESIUMon 10-30-2024 Magnesium [Mass/Vol] 2.0 mg/dL Normal 1.9-2.7 [facility] Comment on above: Performed By: #### L [id number] ####[facility] ([facility])[address] [place] [address] MANUAL DIFFERENTIALon 2024 BASOPHILS (10*3/UL) IN BLOOD BY CALCULATION 0.04 10*3/uL Normal 0.00-0.20 [facility] Comment on above: Performed By: #### L [id number] #### [facility] ([facility]) [address] [place] [address] BASOPHILS/100 LEUKOCYTES IN BLOOD BY AUTOMATED COUNT 0.3 % Normal 0.0-1.0 [facility] Comment on above: Performed By: #### L [id number] #### [facility] ([facility]) [address] [place] [address] EOSINOPHILS (10*3/UL) IN BLOOD BY CALCULATION 0.08 10*3/uL Normal 0.00-0.50 [facility] Comment on above: Performed By: #### L [id number] #### [facility] ([facility]) [address] [place] [address] EOSINOPHILS/100 LEUKOCYTES IN BLOOD BY AUTOMATED COUNT 0.7 % Normal 0.0-6.0 [facility] Comment on above: Performed By: #### L [id number] #### [facility] ([facility]) [address] [facility] [place] [address] IMMATURE GRANULOCYTES (10*3/UL) IN BLOOD BY CALCULATION 0.04 10*3/uL Normal 0.00-0.20 [facility] Comment on above: Performed By: #### L [id number] #### [facility] ([facility]) [address] [place] [address] IMMATURE GRANULOCYTES/100 LEUKOCYTES IN BLOOD BY AUTOMATED COUNT 0.3 % Normal 0.0-1.0 [facility] Comment on above: Performed By: #### L [id number] #### [facility] ([facility]) [address] [address] LYMPHOCYTES (10*3/UL) IN BLOOD BY CALCULATION 5.41 10*3/uL High 1.20-4.00 [facility] Comment on above: Performed By: #### L [id number] #### [facility] ([facility]) [address] [address] LYMPHOCYTES/100 LEUKOCYTES IN BLOOD BY AUTOMATED COUNT 44.8 % Normal 20.0-45.0 [facility] Comment on above: Performed By: #### L [id number] #### [facility] ([facility]) [address] [place] [address] MONOCYTES (10*3/UL) IN BLOOD BY CALCUATION 0.54 10*3/uL Normal 0.10-1.00 [facility] Comment on above: Performed By: #### L [id number] #### [facility] ([facility]) [address] [address] MONOCYTES/100 LEUKOCYTES IN BLOOD BY AUTOMATED COUNT 4.5 % Low 5.0-12.0 [facility] Comment on above: Performed By: #### L [id number] #### [facility] ([facility]) [address] [address] NEUTROPHILS (10*3/UL) IN BLOOD BY CALCULATION 6.0 10*3/uL Normal 1.6-7.6 [facility] Comment on above: Performed By: #### L [id number] #### [facility] ([facility]) [address] [address] NEUTROPHILS/100 LEUKOCYTES IN BLOOD BY AUTOMATED COUNT 49.4 % Normal 40.0-72.0 [facility] Comment on above: Performed By: #### L [id number] #### [facility] ([facility] [employer]) [address] [place] [address] MR ABDOMEN W AND WO CONTRAST MRCPon 10-30-2024 MR ABDOMEN W AND WO CONTRAST MRCP MR ABDOMEN W AND WO CONTRAST MRCP [...] Abdominal Wall: All normal Bones: Normal IMPRESSION: * No T2 bright lesions. There is [...] reasonably achievable Electronically signed: Tarik Sellers MD. 8 Invalid Interpretation Code [facility] PHOSPHORUSon 10-30-2024 Magnesium [Mass/Vol] 2.8 mg/dL Normal 2.5-5.0 [facility] Comment on above: Performed By: #### L [id number] #### [facility] ([facility]) [address] [place] [address] POCT GLUCOSE METER UNSOLICIT ED RESULTSon 10-30-2024 Glucose [Mass/Vol] 105 mg/dL Normal 70-105 [facility] Comment on above: Order Comment: Waive d Testing in the ED is performed under the ED CLIA certificate #[id number]. Result Comment: [email or web address] Performed By: #### L [id number] #### [facility] ([facility]) [address] [place] [address] Glucose [Mass/Vol] 97 mg/dL Normal 70-105 [facility] Comment on above: Order Comment: Waive d Testing in the ED is performed under the ED CLIA certificate #[id number]. Result Comment: [email or web address] Performed By: #### L [id number] ####[facility] ([facility])[address] [place] [address] PROTIME-INRon 10-30-2024 INR IN PPP BY COAGULATION ASSAY 1.20 High 0.90-1.10 [facility] Comment on above: Result Comment: ACCC P RECOMMENDED INR FOR WARFARIN THERAPY CONDITION INR PROPHYLAXIS OF VENOUS THROMBOSIS 2-3 (HIGH-RISK SURGERY) TREATMENT OF VENOUS THROMBOSIS 2-3 TREATMENT OF PULMONARY EMBOLISM 2-3 PREVENTION OF SYSTEMIC EMBOLISM: 2-3 ACUTE MYOCARDIAL INFARCTION TISSUE HEART VALVES VALVULAR HEART DISEASE ATRIAL FIBRILLATION RECURRENT SYSTEMIC EMBOLISM MECHANICAL HEART VALVE 2.5-3.5 FROM: ORAL ANTICOAGULANTS. MECHANISM OF ACTION, CLINICAL EFFECTIVENESS, AND OPTIMAL THERAPEUTIC RANGE. CHEST 1995;108:231S-246S. Performed By: #### L [id number] ####[facility] ([facility])[address] [place] [address] PROTHROMBIN TIME (PT) IN PPP BY COAGULATION ASSAY 15.2 Seconds High 12.3-14.8 [facility] Comment on above: Performed By: #### L [id number] ####[facility] ([facility])[address] [place] [address] Basophils/100 WBC Manual cnt (Bld)Ordered By: Duc Hamilton on 10-29-2024 Basophils/100 WBC (Bld) 0.0 % Low 0.2-2.0 [facility] Eosinophils/100 WBC Manual c nt (Bld)Ordered By: Duc Hamilton on 10-29-2024 Eosinophils/100 WBC (Bld) 2.0 % 0.9-7.0 [facility] Erythrocyte distribution wid th Auto (RBC) [Ratio]Ordered By: Duc Hamilton on 10-29-2024 Erythrocyte distribution width (RBC) [Ratio] 12.1 % 11.0-15.0 [facility] Estimated glomerular filtrat ion rate (GFR) non- AmericanOrdered By: Duc Hamilton on 10-29-2024 GFR/1.73 sq M.predicted among non-blacks MDRD (S/P/Bld) [Vol rate/Area] 51 mL/min/{1.73_m2} Low >=60 mL/min/1.7 3m 2 [facility] Globulin Calc (S) [Mass/Vol] Ordered By: Duc Hamilton on 10-29-2024 Globulin (S) [Mass/Vol] 3.9 g/dL [facility] Hematocrit Auto (Bld) [Volum e fraction]Ordered By: Duc Hamilton on 10-29-2024 Hematocrit (Bld) [Volume fraction] 42.8 % 36.0-48.0 [facility] Hemoglobin [Mass/volume] in BloodOrdered By: Duc Hamilton on 10-29-2024 Hemoglobin (Bld) [Mass/Vol] 15.3 g/dL 12.0-16.0 [facility] Laboratory - Chemistry and C hemistry - challengeOrdered By: Duc Hamilton on 10-29-2024 Lactate [Moles/Vol] 0.8 mmol/L 0.4-2.0 [facility] Bilirubin Ql (U) Negative NEGATIVE [facility] Glucose (U) [Mass/Vol] Negative NEGATIVE [facility] Ketones Ql (U) Negative NEGATIVE [facility] pH (U) 6.5 [pH] 5.0-9.0 [facility] Specific gravity (U) [Rel density] <=1.005 Abnormal 1.005-1.02 5 [facility] Urobilinogen Qn (U) 0.2 {Amee'U}/dL 0.2-1.0 [facility] Albumin [Mass/Vol] 4.5 g/dL 3.4-5.0 [facility] ALP [Catalytic activity/Vol] 94 U/L 46-116 [facility] ALT [Catalytic activity/Vol] 52 U/L 14-59 [facility] AST [Catalytic activity/Vol] 34 U/L 15-37 [facility] Bilirubin [Mass/Vol] 1.6 mg/dL High 0.2-1.0 [facility] Calcium [Mass/Vol] 9.8 mg/dL 8.5-10.1 [facility] Chloride [Moles/Vol] 100 mmol/L 98-107 [facility] CO2 [Moles/Vol] 24.5 mmol/L 21.0-32.0 [facility] Creatinine [Mass/Vol] 1.05 mg/dL High 0.55-1.02 [facility] GFR/1.73 sq M.predicted MDRD (S/P/Bld) [Vol rate/Area] mL/min/{1.73_m2} >=60 mL/min/1.7 3m 2 [facility] Glucose [Mass/Vol] 173 mg/dL High 74-106 [facility] Lipase [Catalytic activity/Vol] 73.0 U/L 16.0-77.0 [facility] Magnesium [Mass/Vol] 1.9 mg/dL 1.8-2.4 [facility] Potassium [Moles/Vol] 3.9 mmol/L 3.5-5.1 [facility] Protein [Mass/Vol] 8.4 g/dL High 6.4-8.2 [facility] Sodium [Moles/Vol] 139 mmol/L 136-145 [facility] Urea nitrogen [Mass/Vol] 11.0 mg/dL 7.0-18.0 [facility] Urea nitrogen/Creatinine [Mass ratio] 10.5 mg/mg [facility] Laboratory - Hematology and Cell countsOrdered By: Duc Hamilton on 10-29-2024 Lymphocytes/100 WBC (Bld) 47.0 % 20.5-60.0 [facility] Monocytes/100 WBC (Bld) 3.0 % 1.7-12.0 [facility] Laboratory - Specimen inform ationOrdered By: Duc Hamilton on 10-29-2024 Appearance (U) SL CLOUDY CLEAR [facility] Color (U) LT. YELLOW YELLOW [facility] Laboratory - UrinalysisOrder ed By: Duc Hamilton on 10-29-2024 Leukocyte esterase Test strip Ql (U) SMALL Abnormal NEGATIVE [facility] Mucus Ql (Urine sed) NONE SEEN NONE SEEN [facility] Nitrite Ql (U) Negative NEGATIVE [facility] Protein Ql (U) Negative NEG/TRACE [facility] Leukocytes [#/volume] correc jimmie for nucleated erythrocytes in Blood by Automated counOrdered By: Duc Hamilton on 10-29-2024 WBC corrected for nucl RBC Auto (Bld) [#/Vol] 12.5 10 3/uL High 4.0-11.0 [facility] MCH Auto (RBC) [Entitic mass ]Ordered By: Duc Hamilton on 10-29-2024 MCH (RBC) [Entitic mass] 32.3 pg 26.7-34.0 [facility] MCHC Auto (RBC) [Mass/Vol]Or dered By: Duc Hamilton on 10-29-2024 MCHC (RBC) [Mass/Vol] 35.7 g/dL High 29.9-35.2 [facility] MCV Auto (RBC) [Entitic vol] Ordered By: Duc Hamilton on 10-29-2024 MCV (RBC) [Entitic vol] 90.5 fL 81.0-99.0 [facility] No Panel InformationOrdered By: Duc Hamilton on 10-29-2024 Urine Bacteria MODERATE #/HPF Abnormal NONE SEEN [facility] Urine Culture Reflexed YES-[facility] Urine Microscopic Review YES [facility] Urine Occult Blood Negative NEGATIVE [facility] Urine Other Casts NONE SEEN #/LPF NONE SEEN [facility] Urine Other Crystals None Seen #/HPF None Seen [facility] Urine RBC 0-2 #/HPF 0-2 [facility] Urine Squamous Epithelial Cells FEW #/LPF Abnormal NONE/RARE [facility] Urine WBC 5-10 #/HPF Abnormal NONE SEEN [facility] Absolute Basophils (Manual) 0.00 10 3/uL 0.00-0.10 [facility] Eosinophils # (Manual) 0.25 10 3/uL 0.00-0.70 [facility] Lymphocytes # (Manual) 5.87 10 3/uL High 1.20-3.80 [facility] Monocytes # (Manual) 0.37 10 3/uL 0.30-0.80 [facility] Segmented Neutrophils # (Manual) 6.00 10 3/uL 1.4-6.5 [facility] Platelet mean volume Auto (B ld) [Entitic vol]Ordered By: Duc Hamilton on 10-29-2024 Platelet mean volume (Bld) [Entitic vol] 9.8 fL 9.5-13.5 [facility] Platelets Auto (Bld) [#/Vol] Ordered By: Duc Hamilton on 10-29-2024 Platelets (Bld) [#/Vol] 239 10 3/uL 150-450 [facility] RBC Auto (Bld) [#/Vol]Ordere d By: Duc Hamilton on 10-29-2024 RBC (Bld) [#/Vol] 4.73 10 6/uL 4.20-5.40 [facility] Segmented neutrophils/100 WB C Manual cnt (Bld)Ordered By: Duc Hamilton on 10-29-2024 Segmented neutrophils/100 WBC (Bld) 48.0 % 43.0-75.0 [facility] Serum or plasma albumin/glob ulin mass ratioOrdered By: Duc Hamilton on 10-29-2024 Albumin/Globulin [Mass ratio] 1.2 {ratio} [facility] Serum or plasma anion gap de terminationOrdered By: Duc Hamilton on 10-29-2024 Anion gap [Moles/Vol] 18.4 mmol/L Fi [facility] Urine Cultureon 10-29-2024 Bacteria identified Cx Nom (U) >100,000 colonies/ml mixed bacterial skin contaminants 2 Days PERFORMED BY: [facility] [address] [place] [address] PATHOLOGIST CNC WOOD LATHE OPERATOR SARAHY Wahl [facility] Comment on above: Performed By: #### C UU #### [facility] [address] Urine cultureOrdered By: Merlin Melchor on 10-29-2024 Bacteria identified Cx Nom (U) 2 Days [facility] Laboratory - Chemistry and C hemistry - challengeOrdered By: Carmen Conley on 09-25-2024 Calcium [Mass/Vol] 8.9 mg/dL 8.5-10.1 [facility] Free T4 [Mass/Vol] 1.12 ng/dL 0.76-1.46 [facility] TSH Qn 0.544 m[IU]/L 0.358-3.74 0 [facility] No Panel InformationOrdered By: Carmen Conley on 09-25-2024 Parathyroid Hormone (Intact) 38 pg/mL 15-65 [facility] Comment on above: Performed at: [address] [id number] Director: Pasha Chaudhry PhD, Phone: [phone] Glucose Glucometer (dC) [M ass/Vol]Ordered By: Randa Christine on 02-26-2024 Glucose [Mass/Vol] Capillary blood gluc ose measurement by glucometer (mass/volume) [facility] Comment on above: Random Glucose Refer ence Range is dependent on time and content of last meal. Glucose of more than 200 mg/dL in a nonstressed, ambulatory subject supports the diagnosis of Diabetes Mellitus. Glucose Poct Glucometerson 1 04-27-2023 Commemt1 Glu2: Cleaned Meter Normal [facility] Comment on above: Result Comment: PERF ORMED BY: [facility] [address] [facility] [place] [address] PATHOLOGIST CNC WOOD LATHE OPERATOR LINDSAY RAMEY M.D. Performed By: #### G LULS #### Point of Care testing , Glucose [Mass/Vol] 168 mg/dL Normal [facility] Comment on above: Result Comment: [place] om Glucose Reference Range is dependent on time and content of last meal. Glucose of more than 200 mg/dL in a nonstressed, ambulatory subject supports the diagnosis of Diabetes Mellitus. Performed By: #### G LULS #### Point of Care testing , Commemt1 Glu2: Cleaned Meter Normal [facility] Comment on above: Result Comment: PERF ORMED BY: [facility] [address] [facility] [place] [address] PATHOLOGIST CNC WOOD LATHE OPERATOR LINDSAY RAMEY M.D. Performed By: #### G LULS #### Point of Care testing , Glucose [Mass/Vol] 158 mg/dL Normal [facility] Comment on above: Result Comment: [place] Glucose Reference Range is dependent on time and content of last meal. Glucose of more than 200 mg/dL in a nonstressed, ambulatory subject supports the diagnosis of Diabetes Mellitus. Performed By: #### G LULS #### Point of Care testing , No Panel InformationOrdered By: Randa Christine on 02-26-2024 Bedside Glucose Comment Glu2: cleaned meter [facility] No Panel InformationOrdered By: Sapna Vanegas on 01-07-2024 [facility] Laboratory - Chemistry and C hemistry - challengeon 12-31-2023 Lipase [Catalytic activity/Vol] 86.0 U/L High 16.0-77.0 [facility] Laboratory - Microbiology an d Antimicrobial susceptibilityon 12-31-2023 Bacteria identified Cx Nom (U) [facility] No Panel Informationon 12-30 Miscellaneous Test Comment See comment [facility] Comment on above: Specimen Source: UCC - Urine,Clean Catch - Urine CC - 200.100 Basophils/100 WBC Manual cnt (Bld)on 12-21-2023 Basophils/100 WBC (Bld) Basophils/100 le ukocytes in Blood by Manual count Low 0.2-2.0 [facility] Eosinophils/100 WBC Manual c nt (Bld)on 12-21-2023 Eosinophils/100 WBC (Bld) Eosinophils/100 leukocytes in Blood by Manual count 0.9-7.0 [facility] Erythrocyte distribution wid th Auto (RBC) [Ratio]on 12-21-2023 Erythrocyte distribution width (RBC) [Ratio] Erythrocyte distribution width [Ratio] by Automated count 11.0-15.0 [facility] Estimated glomerular filtrat ion rate (GFR) non- Americanon 12-21-2023 GFR/1.73 sq M.predicted among non-blacks MDRD (S/P/Bld) [Vol rate/Area] Estimated glomerular filtration rate (GFR) non- Low >=60 [facility] Globulin Calc (S) [Mass/Vol] on 12-21-2023 Globulin (S) [Mass/Vol] Serum globulin measurement by calculation (mass/volume) [facility] Hematocrit Auto (Bld) [Volum e fraction]on 12-21-2023 Hematocrit (Bld) [Volume fraction] Hematocrit [Volume Fraction] of Blood by Automated count 36.0-48.0 [facility] Hemoglobin [Mass/volume] in Bloodon 12-21-2023 Hemoglobin (Bld) [Mass/Vol] Hemoglobin [Mass/volume] in Blood 12.0-16.0 [facility] Laboratory - Chemistry and C hemistry - challengeon 12-21-2023 Albumin [Mass/Vol] 4.2 g/dL 3.4-5.0 [facility] ALP [Catalytic activity/Vol] 95 U/L 46-116 [facility] ALT [Catalytic activity/Vol] 41 U/L 14-59 [facility] Amylase [Catalytic activity/Vol] 48 U/L 25-115 [facility] AST [Catalytic activity/Vol] 18 U/L 15-37 [facility] Bilirubin [Mass/Vol] 0.8 mg/dL 0.2-1.0 [facility] Bilirubin.direct [Mass/Vol] 0.2 mg/dL 0.0-0.2 [facility] Calcium [Mass/Vol] 9.4 mg/dL 8.5-10.1 [facility] Chloride [Moles/Vol] 97 mmol/L Low 98-107 [facility] CO2 [Moles/Vol] 26.1 mmol/L 21.0-32.0 [facility] Creatinine [Mass/Vol] 1.07 mg/dL High 0.55-1.02 [facility] GFR/1.73 sq M.predicted MDRD (S/P/Bld) [Vol rate/Area] mL/min/{1.73_m2} >=60 [facility] Glucose [Mass/Vol] 166 mg/dL High 74-106 [facility] Lipase [Catalytic activity/Vol] 96.0 U/L High 16.0-77.0 [facility] Potassium [Moles/Vol] 3.8 mmol/L 3.5-5.1 [facility] Protein [Mass/Vol] 8.3 g/dL High 6.4-8.2 [facility] Sodium [Moles/Vol] 135 mmol/L Low 136-145 [facility] Urea nitrogen [Mass/Vol] 23.0 mg/dL High 7.0-18.0 [facility] Urea nitrogen/Creatinine [Mass ratio] 21.5 mg/mg [facility] Laboratory - Hematology and Cell countson 12-21-2023 Lymphocytes/100 WBC (Bld) 48.0 % 20.5-60.0 [facility] Monocytes/100 WBC (Bld) 1.0 % Low 1.7-12.0 [facility] Leukocytes [#/volume] correc jimmie for nucleated erythrocytes in Blood by Automated counon 12-21-2023 WBC corrected for nucl RBC Auto (Bld) [#/Vol] Leukocytes [#/volume] corrected for nucleated erythrocytes in Blood by Automated coun High 4.0-11.0 [facility] MCH Auto (RBC) [Entitic mass ]on 12-21-2023 MCH (RBC) [Entitic mass] MCH [Entitic mass] by Automated count 26.7-34.0 [facility] MCHC Auto (RBC) [Mass/Vol]on 12-21-2023 MCHC (RBC) [Mass/Vol] MCHC [Mass/volume] by Automated count 29.9-35.2 [facility] MCV Auto (RBC) [Entitic vol] on 12-21-2023 MCV (RBC) [Entitic vol] MCV [Entitic vol ume] by Automated count 81.0-99.0 [facility] No Panel Informationon 12-20 Absolute Basophils (Manual) 0.00 10 3/uL 0.00-0.10 [facility] Eosinophils # (Manual) 0.17 10 3/uL 0.00-0.70 [facility] Lymphocytes # (Manual) 8.20 10 3/uL High 1.20-3.80 [facility] Monocytes # (Manual) 0.17 10 3/uL Low 0.30-0.80 [facility] Segmented Neutrophils # (Manual) 8.55 10 3/uL High 1.4-6.5 [facility] Platelet mean volume Auto (B ld) [Entitic vol]on 12-21-2023 Platelet mean volume (Bld) [Entitic vol] Platelet mean volume [Entitic volume] in Blood by Automated count Low 9.5-13.5 [facility] Platelets Auto (Bld) [#/Vol] on 12-21-2023 Platelets (Bld) [#/Vol] Platelets [#/vol ume] in Blood by Automated count 150-450 [facility] RBC Auto (Bld) [#/Vol]on RBC (Bld) [#/Vol] Erythrocytes [#/volu me] in Blood by Automated count 4.20-5.40 [facility] Segmented neutrophils/100 WB C Manual cnt (Bld)on 12-21-2023 Segmented neutrophils/100 WBC (Bld) Manual blood segmented neutrophils/100 leukocytes 43.0-75.0 [facility] Serum or plasma albumin/glob ulin mass ratioon 12-21-2023 Albumin/Globulin [Mass ratio] Serum or plasma albumin/globulin mass ratio [facility] Serum or plasma anion gap de terminationon 12-21-2023 Anion gap [Moles/Vol] Serum or plasma an ion gap determination [facility] Laboratory - Microbiology an d Antimicrobial susceptibilityon 12-19-2023 S. pyogenes Ag Ql (Unsp spec) Negative [facility] SARS-CoV-2 (COVID-19) RNA SUNNY+probe Ql (Unsp spec) Negative NEGATIVE [facility] Comment on above: This test has not be en FDA cleared or approved, but has beenauthorized by the FDA under an Emergency Use Authorization(EUA) for use by authorized laboratories certified underCLIA that meet the requirements to perform moderate or highcomplexity testing. This test has been authorized only forthe detection of proteins from SARS-CoV-2, not for any otherviruses or pathogens. The emergency use of this test isauthorized for the duration of the declaration thatcircumstances exist justifying the authorization ofemergency use of in vitro diagnostic tests for detectionand/or diagnosis of Covid-19 under section 564(b)(1) of theAct, 21 U.S.C. 360bbb-3(b)(1), unless the declaration isterminated or authorization is revoked sooner. Basophils Auto (Bld) [#/Vol] on 12-17-2023 Basophils (Bld) [#/Vol] Automated basophil count 0.0-0.1 [facility] Basophils/100 WBC Auto (Bld) on 12-17-2023 Basophils/100 WBC (Bld) Automated basophil % 0. 2-2.0 [facility] Eosinophils/100 WBC Auto (Bl d)on 12-17-2023 Eosinophils/100 WBC (Bld) Automated eosinophil % Low 0.9-7.0 [facility] Erythrocyte distribution wid th Auto (RBC) [Ratio]on 12-17-2023 Erythrocyte distribution width (RBC) [Ratio] Erythrocyte distribution width [Ratio] by Automated count 11.0-15.0 [facility] Estimated glomerular filtrat ion rate (GFR) non- Americanon 12-17-2023 GFR/1.73 sq M.predicted among non-blacks MDRD (S/P/Bld) [Vol rate/Area] Estimated glomerular filtration rate (GFR) non- Low >=60 [facility] Glucose mean value [Mass/vol ume] in Blood Estimated from glycated hemoglobinon 12-17-2023 Average glucose Estimated from glycated hemoglobin (Bld) [Mass/Vol] Glucose mean value [Mass/volume] in Blood Estimated from glycated hemoglobin [facility] Hematocrit Auto (Bld) [Volum e fraction]on 12-17-2023 Hematocrit (Bld) [Volume fraction] Hematocrit [Volume Fraction] of Blood by Automated count 36.0-48.0 [facility] Hemoglobin [Mass/volume] in Bloodon 12-17-2023 Hemoglobin (Bld) [Mass/Vol] Hemoglobin [Mass/volume] in Blood 12.0-16.0 [facility] Laboratory - Chemistry and C hemistry - challengeon 12-17-2023 Calcium [Mass/Vol] 9.4 mg/dL 8.5-10.1 [facility] Chloride [Moles/Vol] 100 mmol/L 98-107 [facility] CO2 [Moles/Vol] 27.3 mmol/L 21.0-32.0 [facility] Creatinine [Mass/Vol] 0.93 mg/dL 0.55-1.02 [facility] Free T4 [Mass/Vol] 1.15 ng/dL 0.76-1.46 [facility] GFR/1.73 sq M.predicted MDRD (S/P/Bld) [Vol rate/Area] mL/min/{1.73_m2} >=60 [facility] Glucose [Mass/Vol] 154 mg/dL High 74-106 [facility] Potassium [Moles/Vol] 3.9 mmol/L 3.5-5.1 [facility] Sodium [Moles/Vol] 134 mmol/L Low 136-145 [facility] TSH Qn 0.510 m[IU]/L 0.358-3.74 0 [facility] Urea nitrogen [Mass/Vol] 13.0 mg/dL 7.0-18.0 [facility] Urea nitrogen/Creatinine [Mass ratio] 14.0 mg/mg [facility] Laboratory - Hematology and Cell countson 12-17-2023 HbA1c (Bld) [Mass fraction] 7.1 % High 4.5-6.2 [facility] Comment on above: ADA RECOMMENDED LIMI T 4.0 - 6.0ADA THERAPEUTIC TARGET < 7.0ACTION SUGGESTED> 7.0 Immature granulocytes/100 WBC (Bld) 0.4 % 0.0-0.5 [facility] Leukocytes [#/volume] correc jimmie for nucleated erythrocytes in Blood by Automated counon 12-17-2023 WBC corrected for nucl RBC Auto (Bld) [#/Vol] Leukocytes [#/volume] corrected for nucleated erythrocytes in Blood by Automated coun High 4.0-11.0 [facility] Lymphocytes Auto (Bld) [#/Vo l]on 12-17-2023 Lymphocytes (Bld) [#/Vol] Lymphocytes [#/volume] in Blood by Automated count 1.2-3.8 [facility] Lymphocytes/100 WBC Auto (Bl d)on 12-17-2023 Lymphocytes/100 WBC (Bld) Lymphocytes/100 leukocytes in Blood by Automated count 20.5-60.0 [facility] MCH Auto (RBC) [Entitic mass ]on 12-17-2023 MCH (RBC) [Entitic mass] MCH [Entitic mass] by Automated count 26.7-34.0 [facility] MCHC Auto (RBC) [Mass/Vol]on 12-17-2023 MCHC (RBC) [Mass/Vol] MCHC [Mass/volume] by Automated count 29.9-35.2 [facility] MCV Auto (RBC) [Entitic vol] on 12-17-2023 MCV (RBC) [Entitic vol] MCV [Entitic vol ume] by Automated count 81.0-99.0 [facility] Monocytes Auto (Bld) [#/Vol] on 12-17-2023 Monocytes (Bld) [#/Vol] Automated blood monocyte count 0.3-0.8 [facility] Monocytes/100 WBC Auto (Bld) on 09-10-2024 Monocytes/100 WBC (Bld) Automated monocyte % 1. 7-12.0 [facility] Neutrophils Auto (Bld) [#/Vo l]on 12-17-2023 Neutrophils (Bld) [#/Vol] Neutrophils [#/volume] in Blood by Automated count High 1.4-6.5 [facility] Neutrophils/100 WBC Auto (Bl d)on 12-17-2023 Neutrophils/100 WBC (Bld) Automated neutrophil % 43.0-75.0 [facility] No Panel Informationon 12-16 Eosinophils # (Auto) 0.0 10 3/uL 0.0-0.7 [facility] Immature Granulocyte # (Auto) 0.05 10 3/uL High 0.00-0.03 [facility] Platelet mean volume Auto (B ld) [Entitic vol]on 12-17-2023 Platelet mean volume (Bld) [Entitic vol] Platelet mean volume [Entitic volume] in Blood by Automated count 9.5-13.5 [facility] Platelets Auto (Bld) [#/Vol] on 12-17-2023 Platelets (Bld) [#/Vol] Platelets [#/vol ume] in Blood by Automated count 150-450 [facility] RBC Auto (Bld) [#/Vol]on RBC (Bld) [#/Vol] Erythrocytes [#/volu me] in Blood by Automated count 4.20-5.40 [facility] Serum or plasma anion gap de terminationon 12-17-2023 Anion gap [Moles/Vol] Serum or plasma an ion gap determination [facility] Serum or plasma free cefurox molly measurement (mass/volume)on 12-17-2023 Cefuroxime free [Mass/Vol] Serum or plasma free cefuroxime measurement (mass/volume) Negative [facility] Comment on above: Performed at: [address] [id number] Director: Pasha Chaudhry PhD, Phone: [phone] Heart and Vascular Office/Cl inic Noteon 10-08-2023 [...] with voice recognition artificial intelligence software, specifically [employer], [employer] and or [employer]. Substitutions may have occurred due to the [...] Ozempic, Sub (more content not included)... [facility] Comment on above: Result Comment: Elec tronically Signed By: Dnotae Hernández PA-C\.br\Date and Time Signed: 10/08/23 13:53 EDT NM Myocardial Spect Rest/Str ess 1 Dayon 10-02-2023 NM Myocardial Spect Rest/Stress 1 Day Exam Date/Time: 10/01/2023 14:13 EDT Reason for Exam: ventricular tachycardia;Other (please specify) Report [facility] [address] [place] [address] Nuclear Stress Report Name: IVELISSE GEE Study Date: 10/01/2023 12:32 PM Patient Location: [facility] : 1950 (M/d/yyyy) Gender: Female Age: 73 yrs Ethnicity: [facility] Reason For Study: Other (please specify) Ordering Physician: Dontae Hernández Referring Physician: Dontae Hernández Protocol 44905 Pharmacologic Lexiscan stress with Isotope. Study Protocol: [...] Signed by: Deonte Peraza MD Transcribed by: [facility] Technologist: ISAAC [facility] Consent for Treatmenton 09-07 Consent for Treatment [id number]#1.00TIF F [facility] Monitor Recordon 10-01-2023 Monitor Record [id number]#1.00TIF F [facility] Event Monitoron 09-30-2023 Event Monitor EVENT MONITOR [...] BY: Ciaran Villatoro MD ca Dictated: 09/28/2023 [id number] Transcribed: 09/30/2023 [facility] Comment on above: Result Comment: Elec tronically Signed By: Shauna CERRATO, Ciaran Mccabe\.elyse\Date and Time Signed: 09/30/23 13:51 EDT Consent for Treatmenton 08-08 Consent for Treatment [id number]#1.00TIF F [facility] Heart and Vascular Office/Cl inic Noteon [...] Daily, # 30 tab(s), Refills(s) 2, Pharmacy: [facility]/pharmacy #[id number], 155, cm, 09/05/23 10:04:00 EDT, [...] with voice recognition artificial intelligence software, specifically [employer], [employer] and or [employer]. Substitutions may have occurred due to the [...] Father. Immunizations [facility] (more content not included)... [facility] Comment on above: Result Comment: Elec tronically Signed By: Edgar BOUDREAUX, Dontae Wolfe\.br\Date and Time Signed: 09/05/23 12:53 EDT Physician Orderon 09-05-2023 Physician Order [id number]#1.00T IFF [facility] Monitor Recordon 09-03-2023 Monitor Record [id number]#1.00TI FF [facility] Consent for Treatmenton - Consent for Treatment [id number]#1.00TIF F [facility] Ambulatory Visit Summaryon 0 07-24-2023 Ambulatory Visit [...] Appointments Saturday 8:00 AM EDT With: Where: Nuclear Medicine Saturday 9:00 AM EDT With: Where: Nuclear Medicine Saturday 9:30 AM EDT With: Where: Nuclear Medicine Saturday 10:30 AM EDT With: Where: Nuclear Medicine Saturday 11:00 AM EDT With: Where: Cardiovascular Services 2023 2:00 PM EDT With: Karmen CERRATO, Deonte Roth Where: Cardiology Clinic Saturday 12:15 PM EDT With: Shaun Goode MD Where: [facility] Gastroenterology Office/Clin ic Noteon 07-24-2023 Gastroenterology [...] 1-2 bowel movements every day by using vvzi-aar-mjdoyvp laxatives such as senna Advised to massage [...] Daily, # 30 cap(s), Refills(s) 5, Pharmacy: [facility]/pharmacy #[id number], 155, cm, 06/26/23 12:22:00 EDT, Height/Length Dosing, 72.1, kg, 06/26/23 12:22:00 EDT, Weight Dosing pantoprazole, 40 mg = 1 tab(s), Oral, Daily, # 90 tab(s), Refills(s) 3, Pharmacy: [facility]/pharmacy #[id number], 153, cm, 07/24/23 13:54:00 EDT, [...] influenza virus vaccine, inactivated 04/09/2016 Recorded [facility] Comment on above: Result Comment: Elec tronically Signed By: Shaun Goode MD\.br\Date and Time Signed: 07/24/23 14:16 EDT IntraOperative Documentson 0 07-04-2023 IntraOperative Documents [id number] FF [facility] Consenton 07-03-2023 Consent [id number]#1.00TI FF [facility] Discharge Instructionson Discharge Instructions [id number]#1.00TI FF [facility] Main OR Intraoperative Recor don 07-03-2023 Main OR Intraoperative Record IntraOp Document Type FT Summary Primary Physician: Shaun Goode MD Finalized Date/Time: 07/03/23 11:58:54 Pt. Name: IVELISSE GEE/Sex: 1950 Female Med Rec #: [id number] Physician: Shaun Goode MD Financial #: [id number] Pt. Type: O Room/Bed: / Admit/Disch: 07/02/23 [...] 4 Entry 5 Case Attendee Alicia MARC, Adele Ramos DOUBLE END TRIMMER, Aba Xiao Role Performed Fixing Carpenter - Primary DOUBLE END TRIMMER Time In 07/02/23 09:08:00 07/02/23 09:08:00 Time Out 07/02/23 09:22:00 07/02/23 09:22:00 Procedure EGD(.) EGD(.) Comments supervising Last Modified By: Alicia MARC, Adele Lau RN 07/02/23 09:24:18 07/02/23 09:24:18 Perioperative Protocols FT [...] and tissue Entry 1 Skin Integrity Intact, [place], Warm, and Skin Abnormality No Dry Outcomes [...] Yes Left (more content not included)... [facility] Postoperative Documentson Postoperative Documents [id number]#1.00TI FF [facility] Progress Note-Physicianon Progress Note-Physician Patient: IVELISSE [...] selected or recorded. Histories Procedure history: Bladder ([id number]). Comments: 06/26/2023 12:18 EDT - Nancy Cuenca 15 years ago Gallbladder ([id number]). Hysterectomy ([id number]). Arm ([id number]). Hand (378873259). Social History Social & Psychosocial Habits Tobacco 06/26/2023 Risk Assessment: Denies Tobacco Use 06/26/2023 Tobacco Use: Never (less than 100 in l . Physical Examination Airway: Mallampati classification: II (soft palate, fauces, uvula visible). Respiratory: adequate air exchange. Cardiovascular: Regular rhythm. Plan [place] [employer]hesi[employer] (ASA) physical status classification: Class II. Anesthetic Preoperative Plan: Anesthesia General. [facility] Comment on above: Result Comment: Elec tronically Signed By: Brant Friedman Jr, DO\.br\Date and Time Signed: 07/03/23 15:21 EDT Progress Note-Physician Patient: IVELISSE GEE Age: 72 years Sex: Female : 1950 Associated Diagnoses: None Author: Brant Friedman Jr, DO Postoperative Information Postoperative disposition: Postoperative disposition: To PACU. Optimetrix number: Optimetrix number [id number]. Anesthetic utilized: General. Health Status Allergies: Allergic [...] when meets criteria ( To home ). [facility] Comment on above: Result Comment: Elec tronically Signed By: Brant Friedman Jr, DO\Date and Time Signed: 07/03/23 15:20 EDT Consent for Treatmenton 06-07 Consent for Treatment [id number] F [facility] Discharge Instructionson Discharge Instructions ERICKA GEESAROJ Wolfe :1950 Visit Date:07/02/2023 Inpatient Discharge Instructions Your [...] Doctor Event Name Event Result Pharmacy Information [facility] [place] Previously Scheduled Follow-Up Appointments August. 2023 2:00 PM EDT With: Karmen CERRATO, Deonte Roth Where: [facility] New Follow Up Appointments after Discharge Follow Up with Rupa CERRATO, Shaun Xiao, [facility] When: Comments: Call for any problems. The [...] Document Re-Released: 09/16/2006 ExitCare? Patient Information ?2009 [employer]. Esophagitis Esophagitis is inflammation of the esophagus. [...] to the (more content not included)... [facility] Comment on above: Result Comment: Elec tronically Signed By: Elma Vanessa I\.elyse\Date and Time Signed: 07/02/23 09:34 EDT EGDon 07-02-2023 Esophagogastroduodenosc opy Patient: IVELISSE GEE Age: [...] Daily, # 30 cap(s), Refills(s) 5, Pharmacy: [facility]/pharmacy #[id number], 155, cm, 06/26/23 12:22:00 EDT, [...] duodenum status post biopsies Images Procedure images: Rec1_hd_video_ [id number].jpg Rec_hd_video_ [id number].jpg Rec1_hd_video_ [id number].jpg Rec1_hd_video_ [id number].jpg Rec1_hd_video_ [id number].jpg Rec1_hd_video_ [id number].jpg . Post-Procedure Complications: none. Estimated blood loss: none. Specimens: sent to pathology. Devices/ implants: none left in place. Impression and Plan EGD: Diagnosis: Esophagitis, reflux (SMD83-FK K21.00, Working, Medical). Course: Progressing as expected. Education and Follow-up: Counseled: Family. Notes: Start Protonix 40 mg once daily Might benefit from Carafate in the future. [facility] Comment on above: Other Comment: Kathy hernandez Attachment - attachment storage system not supported [id number] Can be viewed in source systemMissing Attachment - attachment storage system not supported [id number] Can be viewed in source systemMissing Attachment - attachment storage system not supported [id number] Can be viewed in source systemMissing Attachment - attachment storage system not supported [id number] Can be viewed in source systemMissing Attachment - attachment storage system not supported [id number] Can be viewed in source systemMissing Attachment - attachment storage system not supported [id number] Can be viewed in source system Main OR PACU I Recordon 06-07 Main OR PACU I Record PACU Phase I Docum ent Type FT Summary Primary Physician: Shaun Goode MD Finalized Date/Time: 07/02/23 10:08:53 Pt. Name: MARLEN, IVELISSE Aiden Mcdaniel/Sex: 1950 Female Med Rec #: [id number] Physician: Shaun Goode MD Financial #: [id number] Pt. Type: O Room/Bed: / Admit/Disch: 07/02/23 [...] Signed By: Elma Vanessa I 07/02/23 10:08 [facility] Main OR Preoperative Recordo n 07-02-2023 Main OR Preoperative Record Holding Area Document Type FT Summary Primary Physician: Shaun Goode MD Finalized Date/Time: 07/02/23 08:43:45 Pt. Name: MARLEN IVELISSE Wolfe D.O.B./Sex: 1950 Female Med Rec #: [id number] Physician: Shaun Goode MD Financial #: [id number] Pt. Type: O Room/Bed: / Admit/Disch: 07/02/23 [...] By: Alex Calhoun RN 07/02/23 08:43 [facility] Monitor Recordon 07-02-2023 Monitor Record [id number] FF [facility] Monitor Record [id number]#1.00TI FF [facility] AFPon 06-27-2023 AFP.tumor marker [Mass/Vol] 3.5 ng/mL Invalid Interpretation Code 0.0-9.2 [facility] Comment on above: Result Comment: [facility] Electrochemiluminescence Immunoassay (ECLIA) Values obtained with different assay methods or kits cannot be used interchangeably. Results cannot be interpreted as absolute evidence of the presence or absence of malignant disease. This test is not interpretable in females. Performed at: [address] [id number] PhD Isidoro Pak Performed By: #### 2 [id number] ####[facility] [address] [place] [address] Consent for Procedure/Surger yon 06-27-2023 Consent for Procedure/Surgery [id number]#1.00TIF F [facility] Ambulatory Visit Summaryon 0 06-26-2023 Ambulatory Visit [...] you for choosing us for your care. [facility] Consent for Treatmenton 06-07 Consent for Treatment [id number]#1.00TIF F [facility] Gastroenterology Office/Clin ic Noteon 06-26-2023 Gastroenterology Office/Clinic Note Chief Complaint Dr Mejía ref for epigastric pain HPI Staff This is a 72 year old male who presents today for a referral by [facility] for complaints of epigastric pain, radiates to [...] 1-2 bowel movements every day by using ayps-tdv-midxbzm laxatives such as senna Advised to massage [...] influenza virus vaccine, inactivated 04/09/2016 Recorded [facility] Comment on above: Result Comment: Elec tronically Signed By: Rupa CERRATO, Shaun Xiao\.br\Date and Time Signed: 06/26/23 13:09 EDT Physician Orderon 06-24-2023 Physician Order [id number]#1.00TIFF [facility] Heart and Vascular Office/Cl inic Noteon [...] appointment on 06/26/2023. She went back to [facility], although it made her feel unwell. Notably, [...] with voice recognition artificial intelligence software, specifically [employer], [employer] and or [employer]. Substitutions may have occurred due to the inherent limitations of voice recognition and artificial intelligence software. ATTESTATION: Documentation services were performed after patient or guardian consented to allow [employer] to record this visit. SAMUEL provider relations specialist and provider reviewed before signing. SAMUEL: Renee Byrd Follow-up No qualifying data available Problem [...] History Tobacco - Denies Tobacco Use, 06/21/2023 [facility] Comment on above: Result Comment: Elec tronically Signed By: Deonte Peraza MD\.br\Date and Time Signed: 06/23/23 11:02 EDT\.br\Electronically Co-Signed By: Renee Byrd\.br\Date and Time Co-Signed: 06/21/23 19:23 EDT Ambulatory Visit Summaryon 0 06-21-2023 Ambulatory Visit Summary IVELISSE GEE Aiden :1950 Visit Date:06/21/2023 Ambulatory Visit Instructions Your Care Team Attending Physician - Deonte Peraza MD Primary Care Physician - CARMEN CONLEY MD Referring Physician - CARMEN CONLEY MD This [...] EDT With: Rupa CERRATO, Shaun Xiao Where: [facility] Consent for Treatmenton 06-06 Consent for Treatment [id number]#1.00TIF F [facility] Physician Referralon 024 Physician Referral [id number]#1.00TIF F [facility] Referrals Officeon 4 Referrals Office [id number]#1.00TIF F [facility] Physician Orderon 05-30-2023 Physician Order [id number]#1.00TIF F [facility] Referrals Officeon 4 Referrals Office [id number]#1.00TIF F [facility] CREATININEon 08-08-2022 Creatinine [Mass/Vol] 0.94 mg/dL Normal 0.55-1.02 [facility] Comment on above: Performed By: #### L IPA, HSTROPN, TSH, CMP #### [facility] [address] [address] [address] Juan Zamarripa EGFR-AF GERMAN >60 Normal >=60 [facility] Comment on above: Performed By: #### L IPA, HSTROPN, TSH, CMP #### [facility] [address] [address] [address] Juan Zamarripa EGFR-NON AF GERMAN 58 mL/min/1.73m2 Critically low >=60 [facility] Comment on above: Performed By: #### L IPA, HSTROPN, TSH, CMP #### [facility] [id number] Juan Zamarripa [address] ABD/PELVIS WO CONon [...] CARO SIBLEY Date: 2022-08-08 13:42 Normal [facility] PNEUMOCOCCAL IM (23 SEROTYPE )on 07-07-2022 Pneumo Ab Type 1* 2.8 ug/mL Normal >1.3 [facility] Comment on above: Performed By: #### L IPA, HSTROPN, TSH, CMP #### [facility] [address] [address] [address] Juan Zamarripa Pneumo Ab Type 12 (12F)* 0.2 ug/mL Critically low >1.3 [facility] Comment on above: Performed By: #### L IPA, HSTROPN, TSH, CMP #### [facility] [address] [address] [address] Juan Zamarripa Pneumo Ab Type 14* >18.7 Normal >1.3 [facility] Comment on above: Performed By: #### L IPA, HSTROPN, TSH, CMP #### [facility] [address] [place] [address] Dr. Juan Zamarripa Pneumo Ab Type 17 (17F)* >20.2 Normal >1.3 [facility] Comment on above: Performed By: #### L IPA, HSTROPN, TSH, CMP #### [facility] [address] [place] [address] Dr. Juan Zamarripa Pneumo Ab Type 19 (19F)* 21.7 ug/mL Normal >1.3 [facility] Comment on above: Performed By: #### L IPA, HSTROPN, TSH, CMP #### [facility] [address] [place] [address] Dr. Juan Zamarripa Pneumo Ab Type 2* 5.7 ug/mL Normal >1.3 [facility] Comment on above: Performed By: #### L IPA, HSTROPN, TSH, CMP #### [facility] [address] [place] [address] Dr. Juan Zamarripa Pneumo Ab Type 20* 4.0 ug/mL Normal >1.3 [facility] Comment on above: Performed By: #### L IPA, HSTROPN, TSH, CMP #### [facility] [address] [place] [address] Dr. Juan Zamarripa Pneumo Ab Type 22 (22F)* 1.5 ug/mL Normal >1.3 [facility] Comment on above: Performed By: #### L IPA, HSTROPN, TSH, CMP #### [facility] [address] [place], [place] [id number] Dr. Juan Zamarripa Pneumo Ab Type 23 (23F)* 3.4 ug/mL Normal >1.3 [facility] Comment on above: Performed By: #### L IPA, HSTROPN, TSH, CMP #### [facility] [address] [place] [address] Dr. Juan Zamarripa Pneumo Ab Type 26 (6B)* 3.0 ug/mL Normal >1.3 [facility] Comment on above: Performed By: #### L IPA, HSTROPN, TSH, CMP #### [facility] [address] [place] [address] Dr. Juan Zamarripa Pneumo Ab Type 3* 1.6 ug/mL Normal >1.3 [facility] Comment on above: Performed By: #### L IPA, HSTROPN, TSH, CMP #### [facility] [address] [place] [address] Dr. Juan Zamarripa Pneumo Ab Type 34 (10A)* 4.4 ug/mL Normal >1.3 [facility] Comment on above: Performed By: #### L IPA, HSTROPN, TSH, CMP #### [facility] [address] [place] [address] Dr. Juan Zamarripa Pneumo Ab Type 4* 1.6 ug/mL Normal >1.3 [facility] Comment on above: Performed By: #### L IPA, HSTROPN, TSH, CMP #### [facility] [address] [place] [address] Dr. Juan Zamarripa Pneumo Ab Type 43 (11A)* >7.6 Normal >1.3 [facility] Comment on above: Performed By: #### L IPA, HSTROPN, TSH, CMP #### [facility] [address] [place] [address] Dr. Juan Zamarripa Pneumo Ab Type 5* 2.0 ug/mL Normal >1.3 [facility] Comment on above: Performed By: #### L IPA, HSTROPN, TSH, CMP #### [facility] [address] [place] [address] Dr. Juan Zamarripa Pneumo Ab Type 51 (7F)* 0.9 ug/mL Critically low >1.3 [facility] Comment on above: Performed By: #### L IPA, HSTROPN, TSH, CMP #### [facility] [address] [place] [address] Dr. Juan Zamarripa Pneumo Ab Type 54 (15B)* >22.0 Normal >1.3 [facility] Comment on above: Performed By: #### L IPA, HSTROPN, TSH, CMP #### [facility] [address] [place] [address] Dr. Juan Zamarripa Pneumo Ab Type 56 (18C)* >8.1 Normal >1.3 [facility] Comment on above: Performed By: #### L IPA, HSTROPN, TSH, CMP #### [facility] [address] [place] [address] Dr. Juan Zamarripa Pneumo Ab Type 57 (19A)* 2.5 ug/mL Normal >1.3 [facility] Comment on above: Performed By: #### L IPA, HSTROPN, TSH, CMP #### [facility] [address] [place] [address] Dr. Juan Zamarripa Pneumo Ab Type 68 (9V)* >13.4 Normal >1.3 [facility] Comment on above: Performed By: #### L IPA, HSTROPN, TSH, CMP #### [facility] [address] [place] [address] Dr. Juan Zamarripa Pneumo Ab Type 70 (33F)* >10.1 Normal >1.3 [facility] Comment on above: Result Comment: *Thi s test was developed and its performance characteristics determined by [facility]. It has not been cleared or approved by the [place]. Food and Drug Administration. Performed By: #### L IPA, HSTROPN, TSH, CMP #### [facility] [address] [place] [address] Dr. Juan Zamarripa Pneumo Ab Type 8* 1.2 ug/mL Critically low >1.3 [facility] Comment on above: Performed By: #### L IPA, HSTROPN, TSH, CMP #### [facility] [address] [place] [address] Dr. Juan Zamarripa Pneumo Ab Type 9 (9N)* 1.7 ug/mL Normal >1.3 [facility] Comment on above: Performed By: #### L IPA, HSTROPN, TSH, CMP #### [facility] [address] [place] [address] Dr. Juan Zamarripa BORDETELLA PERTUSSIS AB IGGo n 07-05-2022 B pertussis IgG Ab 1.53 index Invalid Interpretation Code 0.00-0.94 [facility] Comment on above: Result Comment: Clie nt Requested Flag Negative <0.95 Equivocal 0.95 - 1.04 Positive >1.04 Performed By: #### A 1C #### [facility] [address] [place] [address] Dr. Juan Zamarripa TETANUS DIPTHERIA AB PROFILE on 07-05-2022 Diphtheria Antitoxoid Ab 0.29 IU/mL Normal <0.10 [facility] Comment on above: Result Comment: Inte rpretation: Non-Protective <0.10 Protective >=0.10 . For research use only. Performed By: #### C BC #### [facility] [address] [place] [address] Dr. Juan Zamarripa Tetanus Antitoxoid IgG Ab 0.94 IU/mL Normal <0.10 [facility] Comment on above: Result Comment: Inte rpretation: Non-Protective <0.10 Protective >=0.10 Results for this test are for research purposes only by the assay's braille operator. The performance characteristics of this product have not been established. Results should not be used as a diagnostic procedure without confirmation of the diagnosis by another medically established diagnostic product or procedure. Performed By: #### C BC #### [facility] [address] [place] [address] Dr. Juan Zamarripa HAEMOPHILUS INFLUENZA B IGGo n 07-04-2022 Haemophilus influenzae B IgG 0.21 ug/mL Normal [facility] Comment on above: Result Comment: NOTE : An anti-Hib level of 0.15 ug/mL is generally accepted as the minimum level for protection. Optimal protection post-vaccination requires a level greater than 1.00 ug/mL. Performed By: #### L IPA, HSTROPN, TSH, CMP #### [facility] [address] [place] [address] Dr. Juan Zamarripa IMMUNOGLOBULINS IGA/IGM/IGG QUANTITATIVEon 07-03-2022 Immunoglobulin A, Qn, Serum 219 mg/dL Normal 64-422 [facility] Comment on above: Performed By: #### L IPA, HSTROPN, TSH, CMP #### [facility] [address] [place] [address] Dr. Juan Zamarripa Immunoglobulin G, Qn, Serum 1365 mg/dL Normal [phone] [facility] Comment on above: Performed By: #### L IPA, HSTROPN, TSH, CMP #### [facility] [address] [place] [address] Dr. Juan Zamarripa Immunoglobulin M, Qn, Serum 66 mg/dL Normal 26-217 [facility] Comment on above: Performed By: #### L IPA, HSTROPN, TSH, CMP #### [facility] [address] [place] [address] Dr. Juan Zamarripa LYMPHOCYTE ACTIVITY PROFILEo n 07-03-2022 %CD3+CD25+Lymphs 20.3 % Normal 4.9-25.9 [facility] Comment on above: Result Comment: This test was developed and its performance characteristics determined by [facility]. It has not been cleared or approved by the Food and Drug Administration. Performed at: BN Performed By: #### L YMACT #### [facility] [address] [place] [address] Dr. Juan Zamarripa %CD8+CD57+Lymphs 16.6 % Critically high 0.0-11.3 [facility] Comment on above: Result Comment: This test was developed and its performance characteristics determined by [facility]. It has not been cleared or approved by the Food and Drug Administration. Performed at: BN Performed By: #### L YMACT #### [facility] [address] [place] [address] Dr. Juan Zamarripa Abs CD 4 helper 986 /uL Normal 359-1519 [facility] Comment on above: Result Comment: Perf ormed at: CB Performed By: #### L YMACT #### [facility] [address] [place] [address] Dr. Juan Zamarripa Abs. CD 8 Supp 898 /uL Critically high 109-897 [facility] Comment on above: Result Comment: Perf ormed at: CB Performed By: #### L YMACT #### [facility] [address] [place] [address] Dr. Juan Zamarripa Abs.CD3+CD25+Lymphs 447 /uL Normal 79-535 [facility] Comment on above: Result Comment: This test was developed and its performance characteristics determined by [facility]. It has not been cleared or approved by the Food and Drug Administration. Performed at: CB Performed By: #### L YMACT #### [facility] [address] [place] [address] Dr. Juan Zamarripa Abs.CD8+CD57+Lymphs 365 /uL Critically high 0-254 [facility] Comment on above: Result Comment: This test was developed and its performance characteristics determined by [facility]. It has not been cleared or approved by the Food and Drug Administration. Performed at: CB Performed By: #### L YMACT #### [facility] [address] [place] [address] Dr. Juan Zamarripa Absolute CD 3 1918 /uL Normal [phone] [facility] Comment on above: Result Comment: Perf ormed at: CB Performed By: #### L YMACT #### [facility] [address] [place] [address] Dr. Juan Zamarripa Basophils (Bld) [#/Vol] 0.0 10*3/uL Normal 0.0-0.2 [facility] Comment on above: Result Comment: Perf ormed at: CB Performed By: #### L YMACT #### [facility] [address] [place] [address] Dr. Juan Zamarripa Basophils/100 WBC (Bld) 1 % Normal Not Estab. T [facility] Comment on above: Result Comment: Perf ormed at: CB Performed By: #### L YMACT #### [facility] [address] [address] [address] Juan Zamarripa CD4/CD8 Ratio 1.10 Normal 0.92-3.72 [facility] Comment on above: Result Comment: Perf ormed at: BN Performed By: #### L YMACT #### [facility] [address] [place] [address] Dr. Juan Zamarripa Eosinophils (Bld) [#/Vol] 0.1 10*3/uL Normal 0.0-0.4 [facility] Comment on above: Result Comment: Perf ormed at: CB Performed By: #### L YMACT #### [facility] [address] [place] [address] Dr. Juan Zamarripa Eosinophils/100 WBC (Bld) 1 % Normal Not Estab. [facility] Comment on above: Result Comment: Perf ormed at: CB Performed By: #### L YMACT #### [facility] [address] [place] [address] Dr. Juan Zamarripa Erythrocyte distribution width (RBC) [Ratio] 12.6 % Normal 11.7-15.4 [facility] Comment on above: Result Comment: Perf ormed at: CB Performed By: #### L YMACT #### [facility] [address] [place] [address] Dr. Juan Zamarripa Hematocrit (Bld) [Volume fraction] 41.9 % Normal 34.0-46.6 [facility] Comment on above: Result Comment: Perf ormed at: CB Performed By: #### L YMACT #### [facility] [address] [place] [address] Dr. Juan Zamarripa Hematology Comments Normal [facility] Comment on above: Result Comment: Perf ormed at: CB Performed By: #### L YMACT #### [facility] [address] [place] [address] Dr. Juan Zamarripa Hemoglobin (Bld) [Mass/Vol] 14.2 g/dL Normal 11.1-15.9 [facility] Comment on above: Result Comment: Perf ormed at: CB Performed By: #### L YMACT #### [facility] [address] [place] [address] Dr. Juan Zamarripa Immature Cells Normal [facility] Comment on above: Result Comment: Perf ormed at: CB Performed By: #### L YMACT #### [facility] [address] [place] [address] Dr. Juan Zamarripa Immature Grans (Abs) 0.0 x10E3/uL Normal 0.0-0.1 [facility] Comment on above: Result Comment: Perf ormed at: CB Performed By: #### L YMACT #### [facility] [address] [place] [address] Dr. Juan Zamarripa Immature granulocytes/100 WBC (Bld) 0 % Normal Not Estab. [facility] Comment on above: Result Comment: Perf ormed at: CB Performed By: #### L YMACT #### [facility] [address] [place] [address] Dr. Juan Zamarripa Lymphocytes (Bld) [#/Vol] 2.2 10*3/uL Normal 0.7-3.1 [facility] Comment on above: Result Comment: Perf ormed at: CB Performed By: #### L YMACT #### [facility] [address] [place] [address] Dr. Juan Zamarripa Lymphocytes/100 WBC (Bld) 87.2 % Critically high 57.5-86.2 [facility] Comment on above: Result Comment: Perf ormed at: BN Performed By: #### L YMACT #### [facility] [address] [place] [address] Dr. Juan Zamarripa Lymphocytes/100 WBC (Bld) 44.8 % Normal 30.8-58.5 [facility] Comment on above: Result Comment: Perf ormed at: BN Performed By: #### L YMACT #### [facility] [address] [place] [address] Dr. Juan Zamarripa Lymphocytes/100 WBC (Bld) 40.8 % Critically high 12.0-35.5 [facility] Comment on above: Result Comment: Perf ormed at: BN Performed By: #### L YMACT #### [facility] [address] [place] [address] Dr. Juan Zamarripa Lymphocytes/100 WBC (Bld) 34 % Normal Not Estab. [facility] Comment on above: Result Comment: Perf ormed at: CB Performed By: #### L YMACT #### [facility] [address] [place] [address] Dr. Juan Zamarripa MCH (RBC) [Entitic mass] 31.3 pg Normal 26.6-33.0 [facility] Comment on above: Result Comment: Perf ormed at: CB Performed By: #### L YMACT #### [facility] [address] [place] [address] Dr. Juan Zamarripa MCHC (RBC) [Mass/Vol] 33.9 g/dL Normal 31.5-35.7 [facility] Comment on above: Result Comment: Perf ormed at: CB Performed By: #### L YMACT #### [facility] [address] [place] [address] Dr. Juan Zamarripa MCV (RBC) [Entitic vol] 92 fL Normal 79-97 [facility] Comment on above: Result Comment: Perf ormed at: CB Performed By: #### L YMACT #### [facility] [address] [place] [address] Dr. Juan Zamarripa Monocytes (Bld) [#/Vol] 0.3 10*3/uL Normal 0.1-0.9 [facility] Comment on above: Result Comment: Perf ormed at: CB Performed By: #### L YMACT #### [facility] [address] [place] [address] Dr. Juan Zamarripa Monocytes/100 WBC (Bld) 4 % Normal Not Estab. T [facility] Comment on above: Result Comment: Perf ormed at: CB Performed By: #### L YMACT #### [facility] [address] [place] [address] Dr. Juan Zamarripa Neutrophils Absolute 4.0 x10E3/uL Normal 1.4-7.0 [facility] Comment on above: Result Comment: Perf ormed at: CB Performed By: #### L YMACT #### [facility] [address] [address] [address] Juan Zamarripa Neutrophils/100 WBC (Bld) 60 % Normal Not Estab. [facility] Comment on above: Result Comment: Perf ormed at: CB Performed By: #### L YMACT #### [facility] [address] [place] [address] Dr. Juan Zamarripa NRBC Normal [facility] Comment on above: Result Comment: Perf ormed at: CB Performed By: #### L YMACT #### [facility] [address] [place] [address] Dr. Juan Zamarripa Platelets (Bld) [#/Vol] 164 10*3/uL Normal 150-450 [facility] Comment on above: Result Comment: Perf ormed at: CB Performed By: #### L YMACT #### [facility] [address] [place] [address] Dr. Juan Zamarripa RBC (Bld) [#/Vol] 4.54 10*6/uL Normal 3.77-5.28 [facility] Comment on above: Result Comment: Perf ormed at: CB Performed By: #### L YMACT #### [facility] [address] [place] [address] Dr. Juan Zamarripa WBC (Bld) [#/Vol] 6.6 10*3/uL Normal 3.4-10.8 [facility] Comment on above: Result Comment: Perf ormed at: CB Performed By: #### L YMACT #### [facility] [address] [place] [address] Dr. Juan Zamarripa PROF 14(COMP METB)on 023 Albumin [Mass/Vol] 4.1 g/dL Normal 3.4-5.0 [facility] Comment on above: Performed By: #### L IPA, HSTROPN, TSH, CMP #### [facility] [address] [place] [address] Dr. Juan Zamarripa Albumin/Globulin [Mass ratio] 1.1 {ratio} Normal [facility] Comment on above: Performed By: #### L IPA, HSTROPN, TSH, CMP #### [facility] [address] [place] [address] Dr. Juan Zamarripa ALP [Catalytic activity/Vol] 107 U/L Normal 46-116 [facility] Comment on above: Performed By: #### L IPA, HSTROPN, TSH, CMP #### [facility] [address] [place] [address] Dr. Juan Zamarripa ALT [Catalytic activity/Vol] 69 U/L Critically high 14-59 [facility] Comment on above: Performed By: #### L IPA, HSTROPN, TSH, CMP #### [facility] [address] [place] [address] Dr. Juan Zamarripa Anion gap [Moles/Vol] 14.0 mmol/L Normal [facility] Comment on above: Performed By: #### L IPA, HSTROPN, TSH, CMP #### [facility] [address] [place] [address] Dr. Juan Zamarripa AST [Catalytic activity/Vol] 31 U/L Normal 15-37 [facility] Comment on above: Performed By: #### L IPA, HSTROPN, TSH, CMP #### [facility] [address] [place] [address] Dr. Juan Zamarripa Bilirubin [Mass/Vol] 0.8 mg/dL Normal 0.2-1.0 [facility] Comment on above: Performed By: #### L IPA, HSTROPN, TSH, CMP #### [facility] [address] [place] [address] Dr. Juan Zamarripa Calcium [Mass/Vol] 9.1 mg/dL Normal 8.5-10.1 [facility] Comment on above: Performed By: #### L IPA, HSTROPN, TSH, CMP #### [facility] [address] [place] [address] Dr. Juan Zamarripa Chloride [Moles/Vol] 104 mmol/L Normal 98-107 [facility] Comment on above: Performed By: #### L IPA, HSTROPN, TSH, CMP #### [facility] [address] [place] [address] Dr. Juan Zamarripa CO2 [Moles/Vol] 28.1 mmol/L Normal 21.0-32.0 [facility] Comment on above: Performed By: #### L IPA, HSTROPN, TSH, CMP #### [facility] [address] [place] [address] Dr. Juan Zamarripa Creatinine [Mass/Vol] 0.77 mg/dL Normal 0.55-1.02 [facility] Comment on above: Performed By: #### L IPA, HSTROPN, TSH, CMP #### [facility] [address] [place] [address] Dr. Juan Zamarripa EGFR-AF GERMAN >60 Normal >=60 [facility] Comment on above: Performed By: #### L IPA, HSTROPN, TSH, CMP #### [facility] [address] [place] [address] Dr. Juan Zamarripa EGFR-NON AF GERMAN >60 Normal >=60 [facility] Comment on above: Performed By: #### L IPA, HSTROPN, TSH, CMP #### [facility] [address] [place] [address] Dr. Juan Zamarripa Globulin (S) [Mass/Vol] 3.9 g/dL Normal [facility] Comment on above: Performed By: #### L IPA, HSTROPN, TSH, CMP #### [facility] [address] [place] [address] Dr. Juan Zamarripa Glucose [Mass/Vol] 186 mg/dL Critically high 74-106 [facility] Comment on above: Performed By: #### L IPA, HSTROPN, TSH, CMP #### [facility] [address] [place] [address] Dr. Juan Zamarripa Potassium [Moles/Vol] 4.1 mmol/L Normal 3.5-5.1 [facility] Comment on above: Performed By: #### L IPA, HSTROPN, TSH, CMP #### [facility] [address] [place] [address] Dr. Juan Zamarripa Protein [Mass/Vol] 8.0 g/dL Normal 6.4-8.2 [facility] Comment on above: Performed By: #### L IPA, HSTROPN, TSH, CMP #### [facility] [address] [place] [address] Dr. Juan Zamarripa Sodium [Moles/Vol] 142 mmol/L Normal 136-145 [facility] Comment on above: Performed By: #### L IPA, HSTROPN, TSH, CMP #### [facility] [address] [place] [address] Dr. Juan Zamarripa Urea nitrogen [Mass/Vol] 9.0 mg/dL Normal 7.0-18.0 [facility] Comment on above: Performed By: #### L IPA, HSTROPN, TSH, CMP #### [facility] [address] [place] [address] Dr. Juan Zamarripa Urea nitrogen/Creatinine [Mass ratio] 11.7 mg/mg Normal [facility] Comment on above: Performed By: #### L IPA, HSTROPN, TSH, CMP #### [facility] [address] [place] [address] Dr. Juna Zamarripa CULTURE URINEon 06-12-2022 CULTURE URINE Culture Observations : LIGHT GROWTH OF MIXED GENITAL ALDA. NO POTENTIAL PATHOGENS SEEN. Normal [facility] Comment on above: Performed By: #### U RCX #### [facility] [address] [place] [address] Dr. Juan Zamarripa UA RANDOMon 06-12-2022 Glucose Ql (U) 100 mg/dl Abnormal NEGATIVE [facility] Comment on above: Performed By: #### U A #### [facility] [address] [place] [address] Dr. Juan Zamarripa LEUKOCYTES SMALL Abnormal NEGATIVE [facility] Comment on above: Performed By: #### U A #### [facility] [address] [place] [address] Dr. Juan Zamarripa SPEC GRAVITY 1.015 Normal 1.005-<=1. 025 [facility] Comment on above: Performed By: #### U A #### [facility] [address] [address] [address] Juan Zamarripa UA PROTEIN Negative Normal NEGATIVE/ TRACE [facility] Comment on above: Performed By: #### U A #### [facility] [address] [address] [address] Juan Zamarripa Urobilinogen Qn (U) 0.2 {Amee'U}/dL Normal 0.2 - 1. 0 [facility] Comment on above: Performed By: #### U A #### [facility] [address] [place] [address] Dr. Juan Zamarripa Urinalysison 06-12-2022 Glucose Ql (U) 100 mg/dl Abnormal NEGATIVE mg/dl [employer] Other Urinalysis see note [employer] Other Urinalysis 1.015 1.005-<=1. 025 [employer] Other Urinalysis Negative NEGATIVE/ TRACE mg/dl [employer] Other Urinalysis 0.2 EU/dl 0.2 - 1.0 EU/dl [employer] Other Urinalysis SMALL Abnormal NEGATIVE [employer] Other Bilirubin Ql (U) Negative Normal NEGATIVE ODIN [employer] Other Comment on above: Performed By: #### U A #### [facility] [address] [place] [address] Dr. Juan Zamarripa Clarity (U) CLEAR Normal CLEAR [employer] Other Comment on above: Performed By: #### U A #### [facility] [address] [place] [address] Dr. Juan Zamarripa Color (U) LT. YELLOW Normal YELLOW [employer] Other Comment on above: Performed By: #### U A #### [facility] [address] [place] [address] Dr. Juan Zamarripa Hemoglobin Ql (U) Negative Normal NEGATIVE [employer] Other Comment on above: Performed By: #### U A #### [facility] [address] [place] [address] Dr. Juan Zamarripa Ketones Ql (U) Negative Normal NEGATIVE [employer] Other Comment on above: Performed By: #### U A #### [facility] [address] [address] [address] Juan Zamarripa Nitrite Ql (U) Negative Normal NEGATIVE [employer] Other Comment on above: Performed By: #### U A #### [facility] [address] [place] [address] Dr. Juan Zamarripa pH (U) 6.0 [pH] Normal 5-9 [employer] Other Comment on above: Performed By: #### U A #### [facility] [address] [place] [address] Dr. Juan Zamarripa CULTURE URINEon 04-25-2022 CULTURE [...] F Nitrofurantoin <=16 S F Normal [facility] Comment on above: Performed By: #### A 1C #### [facility] [address] [place] [address] Dr. Juan Zamarripa TL by IFAon 04-24-2022 Antinuclear Antibodies, IFA Positive Abnormal [facility] Comment on above: Result Comment: Nega tive <1:80 Borderline 1:80 Positive >1:80 Performed By: #### L IPA, HSTROPN, TSH, CMP #### [facility] [address] [address] [address] Juan Zamarripa Centriole Pattern Normal [facility] Comment on above: Performed By: #### L IPA, HSTROPN, TSH, CMP #### [facility] [address] [address] [address] Juan Zamarripa Centromere Pattern Normal [facility] Comment on above: Performed By: #### L IPA, HSTROPN, TSH, CMP #### [facility] [address] [address] [address] Juan Zamarripa Homogeneous Pattern 1:160 Critically high [facility] Comment on above: Result Comment: ICAP nomenclature: [id number] Performed By: #### L IPA, HSTROPN, TSH, CMP #### [facility] [address] [address] [address] Juan Zamarripa Midbody Pattern Normal [facility] Comment on above: Performed By: #### L IPA, HSTROPN, TSH, CMP #### [facility] [address] [address] [address] Juan Zamarripa Note: Comment Normal [facility] Comment on above: Result Comment: For more [...] titers Nucleosomes, Histones Drug-induced SLE Speckled Sm, REGULATOR OPERATOR, SCL-70, SLE,MCTD,PSS (diffuse form), SS-A/SS-B Sjogrens Nucleolar SCL-70, PM-1/SCL High titers Scleroderma, PM/DM Centromere Centromere PSS (limited form) w/Crest syndrome variable Nuclear Dot [id number] Primary Biliary Cirrhosis Nuclear GP210, Primary Biliary Cirrhosis Membrane trinity A,B,C Performed By: #### L IPA, HSTROPN, TSH, CMP #### [facility] [address] [place] [address] Dr. Juan Zamarripa Nuclear Dot Pattern Normal [facility] Comment on above: Performed By: #### L IPA, HSTROPN, TSH, CMP #### [facility] [address] [place] [address] Dr. Yilan Zamarripa Nuclear Membrane Pattern Normal [facility] Comment on above: Performed By: #### L IPA, HSTROPN, TSH, CMP #### [facility] [address] [place] [address] Dr. Juan Zamarripa Nucleolar Pattern Normal [facility] Comment on above: Performed By: #### L IPA, HSTROPN, TSH, CMP #### [facility] [address] [place] [address] Dr. Juan Zamarripa PCNA Pattern Normal [facility] Comment on above: Performed By: #### L IPA, HSTROPN, TSH, CMP #### [facility] [address] [place] [address] Dr. Juan Zamarripa Speckled Pattern 1:160 Critically high [facility] Comment on above: Result Comment: ICAP nomenclature: [id number] Performed By: #### L IPA, HSTROPN, TSH, CMP #### [facility] [address] [place] [address] Dr. Juan Zamarripa Spindle Apparatus Pattern Normal [facility] Comment on above: Performed By: #### L IPA, HSTROPN, TSH, CMP #### [facility] [address] [place] [address] Dr. Juan Zamarripa RHEUMATOID FACTORon 04-24-19 RA Latex Turbid. <10.0 Normal <14.0 [facility] Comment on above: Performed By: #### L IPA, HSTROPN, TSH, CMP #### [facility] [address] [place] [address] Dr. Juan Zamarripa CBC AUTO DIFFon 04-23-2022 BASO # 0.0 103/ul Normal 0.0-0.1 [facility] Comment on above: Performed By: #### C BC #### [facility] [address] [place] [address] Dr. Juan Zamarripa Basophils/100 WBC (Bld) 0.4 % Normal 0.2-2.0 [facility] Comment on above: Performed By: #### C BC #### [facility] [address] [place] [address] Dr. Juan Zamarripa EO # 0.1 103/ul Normal 0.0-0.7 [facility] Comment on above: Performed By: #### C BC #### [facility] [address] [place] [address] Dr. Juan Zamarripa Eosinophils/100 WBC (Bld) 1.8 % Normal 0.9-7.0 [facility] Comment on above: Performed By: #### C BC #### [facility] [address] [place] [address] Dr. Juan Zamarripa Erythrocyte distribution width (RBC) [Ratio] 12.6 % Normal 11.0-15.0 [facility] Comment on above: Performed By: #### C BC #### [facility] [address] [place] [address] Dr. Juan Zamarripa Hematocrit (Bld) [Volume fraction] 36.9 % Normal 36.0-48.0 [facility] Comment on above: Performed By: #### C BC #### [facility] [address] [place] [address] Dr. Juan Zamarripa Hemoglobin (Bld) [Mass/Vol] 12.6 g/dL Normal 12.0-16.0 [facility] Comment on above: Performed By: #### C BC #### [facility] [address] [place] [address] Dr. Juan Zamarripa IG # 0.02 10e3/ul Normal 0.00-0.03 [facility] Comment on above: Performed By: #### C BC #### [facility] [address] [place] [address] Dr. Juan Zamarripa IG % 0.3 % Normal 0.0-0.5 [facility] Comment on above: Performed By: #### C BC #### [facility] [address] [place] [address] Dr. Juan Zamarripa LYMPH # 3.3 103/ul Normal 1.2-3.8 [facility] Comment on above: Performed By: #### C BC #### [facility] [address] [place] [address] Dr. Juan Zamarripa Lymphocytes/100 WBC (Bld) 42.9 % Normal 20.5-60.0 [facility] Comment on above: Performed By: #### C BC #### [facility] [address] [place] [address] Dr. Juan Zamarripa MANUAL DIFF REQ NO Normal [facility] Comment on above: Performed By: #### C BC #### [facility] [address] [place] [address] Dr. Juan Zamarripa MCH (RBC) [Entitic mass] 31.2 pg Normal 26.7-34.0 [facility] Comment on above: Performed By: #### C BC #### [facility] [address] [place] [address] Dr. Juan Zamarripa MCHC (RBC) [Mass/Vol] 34.1 g/dL Normal 29.9-35.2 [facility] Comment on above: Performed By: #### C BC #### [facility] [address] [place] [address] Dr. Juan Zamarripa MCV (RBC) [Entitic vol] 91.3 fL Normal 81.0-99.0 [facility] Comment on above: Performed By: #### C BC #### [facility] [address] [place] [address] Dr. Juan Zamarripa MONO # 0.3 103/ul Normal 0.3-0.8 [facility] Comment on above: Performed By: #### C BC #### [facility] [address] [place] [address] Dr. Juan Zamarripa Monocytes/100 WBC (Bld) 4.4 % Normal 1.7-12.0 [facility] Comment on above: Performed By: #### C BC #### [facility] [address] [place] [address] Dr. Juan Zamarripa NEUT # 3.9 103/ul Normal 1.4-6.5 [facility] Comment on above: Performed By: #### C BC #### [facility] [address] [place] [address] Dr. Juan Zamarripa Neutrophils/100 WBC (Bld) 50.2 % Normal 43.0-75.0 [facility] Comment on above: Performed By: #### C BC #### [facility] [address] [place] [address] Dr. Juan Zamarripa Platelet mean volume (Bld) [Entitic vol] 9.0 fL Critically low 9.5-13.5 [facility] Comment on above: Performed By: #### C BC #### [facility] [address] [place] [address] Dr. Juan Zamarripa PLT 158 103/ul Normal 150-450 [facility] Comment on above: Performed By: #### C BC #### [facility] [address] [place] [address] Dr. Juan Zamarripa RBC 4.04 106/ul Critically low 4.20-5.40 [facility] Comment on above: Performed By: #### C BC #### [facility] [address] [place] [address] Dr. Juan Zamarripa WBC 7.8 103/ul Normal 4.0-11.0 [facility] Comment on above: Performed By: #### C BC #### [facility] [address] [place] [address] Dr. Juan Zamarripa CULTURE BLOODon 04-23-2022 Microscopic examination of blood, culture Culture Observations: NO GROWTH AT 5 DAYS. Normal [facility] Comment on above: Performed By: #### A 1C #### [facility] [address] [place] [address] Dr. Juan Zamarripa PROF 14(COMP METB)on 023 Albumin [Mass/Vol] 4.0 g/dL Normal 3.4-5.0 [facility] Comment on above: Performed By: #### L IPA, HSTROPN, TSH, CMP #### [facility] [address] [place] [address] Dr. Juan Zamarripa Albumin/Globulin [Mass ratio] 1.0 {ratio} Normal [facility] Comment on above: Performed By: #### L IPA, HSTROPN, TSH, CMP #### [facility] [address] [place] [address] Dr. Juan Zamarripa ALP [Catalytic activity/Vol] 87 U/L Normal 46-116 [facility] Comment on above: Performed By: #### L IPA, HSTROPN, TSH, CMP #### [facility] [address] [place] [address] Dr. Juan Zamarripa ALT [Catalytic activity/Vol] 78 U/L Critically high 14-59 [facility] Comment on above: Performed By: #### L IPA, HSTROPN, TSH, CMP #### [facility] [address] [address] [address] Juan Zamarripa Anion gap [Moles/Vol] 12.4 mmol/L Normal [facility] Comment on above: Performed By: #### L IPA, HSTROPN, TSH, CMP #### [facility] [address] [place] [address] Dr. Juan Zamarripa AST [Catalytic activity/Vol] 39 U/L Critically high 15-37 [facility] Comment on above: Performed By: #### L IPA, HSTROPN, TSH, CMP #### [facility] [address] [address] [address] Juan Zamarripa Bilirubin [Mass/Vol] 0.7 mg/dL Normal 0.2-1.0 [facility] Comment on above: Performed By: #### L IPA, HSTROPN, TSH, CMP #### [facility] [address] [place] [address] Dr. Juan Zamarripa Calcium [Mass/Vol] 9.6 mg/dL Normal 8.5-10.1 [facility] Comment on above: Performed By: #### L IPA, HSTROPN, TSH, CMP #### [facility] [address] [place] [address] Dr. Juan Zamarripa Chloride [Moles/Vol] 101 mmol/L Normal 98-107 [facility] Comment on above: Performed By: #### L IPA, HSTROPN, TSH, CMP #### [facility] [address] [place] [address] Dr. Juan Zamarripa CO2 [Moles/Vol] 29.5 mmol/L Normal 21.0-32.0 [facility] Comment on above: Performed By: #### L IPA, HSTROPN, TSH, CMP #### [facility] [address] [address] [address] Juan Zamarripa Creatinine [Mass/Vol] 0.84 mg/dL Normal 0.55-1.02 [facility] Comment on above: Performed By: #### L IPA, HSTROPN, TSH, CMP #### [facility] [address] [address] [address] Juan Zamarripa EGFR-AF GERMAN >60 Normal >=60 [facility] Comment on above: Performed By: #### L IPA, HSTROPN, TSH, CMP #### [facility] [address] [address] [address] Juan Zamarripa EGFR-NON AF GERMAN >60 Normal >=60 [facility] Comment on above: Performed By: #### L IPA, HSTROPN, TSH, CMP #### [facility] [address] [address] [address] Juan Zamarripa Globulin (S) [Mass/Vol] 4.0 g/dL Normal [facility] Comment on above: Performed By: #### L IPA, HSTROPN, TSH, CMP #### [facility] [address] [address] [address] Juan Zamarripa Glucose [Mass/Vol] 208 mg/dL Critically high 74-106 [facility] Comment on above: Performed By: #### L IPA, HSTROPN, TSH, CMP #### [facility] [address] [address] [address] Juan Zamarripa Potassium [Moles/Vol] 3.9 mmol/L Normal 3.5-5.1 [facility] Comment on above: Performed By: #### L IPA, HSTROPN, TSH, CMP #### [facility] [address] [address] [address] Juan Zamarripa Protein [Mass/Vol] 8.0 g/dL Normal 6.4-8.2 [facility] Comment on above: Performed By: #### L IPA, HSTROPN, TSH, CMP #### [facility] [address] [place] [address] Dr. Juan Zamarripa Sodium [Moles/Vol] 139 mmol/L Normal 136-145 [facility] Comment on above: Performed By: #### L IPA, HSTROPN, TSH, CMP #### [facility] [address] [place] [address] Dr. Juan Zamarripa Urea nitrogen [Mass/Vol] 15.0 mg/dL Normal 7.0-18.0 [facility] Comment on above: Performed By: #### L IPA, HSTROPN, TSH, CMP #### [facility] [address] [place] [address] Dr. Juan Zamarripa Urea nitrogen/Creatinine [Mass ratio] 17.9 mg/mg Normal [facility] Comment on above: Performed By: #### L IPA, HSTROPN, TSH, CMP #### [facility] [address] [place] [address] Dr. Juan Zamarripa SED RATE [facility] 2022 SED RATE 26 mm/hr Normal <=30 [facility] Comment on above: Performed By: #### L IPA, HSTROPN, TSH, CMP #### [facility] [address] [place] [address] Dr. Juan Zamarripa CULTURE BLOODon 04-18-2022 Microscopic [...] Trimethoprim/Sulfamethox azole <=10 S C Normal [facility] Comment on above: Performed By: #### A 1C #### [facility] [address] [place] [address] Dr. Juan Zamarripa CBC AUTO DIFFon 04-13-2022 BASO # 0.1 103/ul Normal 0.0-0.1 [facility] Comment on above: Performed By: #### C BC #### [facility] [address] [place] [address] Dr. Juan Zamarripa Basophils/100 WBC (Bld) 0.6 % Normal 0.2-2.0 [facility] Comment on above: Performed By: #### C BC #### [facility] [address] [place] [address] Dr. Juan Zamarripa EO # 0.2 103/ul Normal 0.0-0.7 [facility] Comment on above: Performed By: #### C BC #### [facility] [address] [place] [address] Dr. Juan Zamarripa Eosinophils/100 WBC (Bld) 1.6 % Normal 0.9-7.0 [facility] Comment on above: Performed By: #### C BC #### [facility] [address] [place] [address] Dr. Juan Zamarripa Erythrocyte distribution width (RBC) [Ratio] 12.6 % Normal 11.0-15.0 [facility] Comment on above: Performed By: #### C BC #### [facility] [address] [place] [address] Dr. Juan Zamarripa Hematocrit (Bld) [Volume fraction] 36.1 % Normal 36.0-48.0 [facility] Comment on above: Performed By: #### C BC #### [facility] [address] [place] [address] Dr. Juan Zamarripa Hemoglobin (Bld) [Mass/Vol] 12.5 g/dL Normal 12.0-16.0 [facility] Comment on above: Performed By: #### C BC #### [facility] [address] [place] [address] Dr. Juan Zamarripa IG # 0.02 10e3/ul Normal 0.00-0.03 [facility] Comment on above: Performed By: #### C BC #### [facility] [address] [place] [address] Dr. Juan Zamarripa IG % 0.2 % Normal 0.0-0.5 [facility] Comment on above: Performed By: #### C BC #### [facility] [address] [place] [address] Dr. Juan Zamarripa LYMPH # 4.8 103/ul Critically high 1.2-3.8 [facility] Comment on above: Performed By: #### C BC #### [facility] [address] [place] [address] Dr. Juan Zamarripa Lymphocytes/100 WBC (Bld) 49.6 % Normal 20.5-60.0 [facility] Comment on above: Performed By: #### C BC #### [facility] [address] [place] [address] Dr. Juan Zamarripa MANUAL DIFF REQ NO Normal [facility] Comment on above: Performed By: #### C BC #### [facility] [address] [place] [address] Dr. Juan Zamarripa MCH (RBC) [Entitic mass] 31.3 pg Normal 26.7-34.0 [facility] Comment on above: Performed By: #### C BC #### [facility] [address] [place] [address] Dr. Juan Zamarripa MCHC (RBC) [Mass/Vol] 34.6 g/dL Normal 29.9-35.2 [facility] Comment on above: Performed By: #### C BC #### [facility] [address] [place] [address] Dr. Juan Zamarripa MCV (RBC) [Entitic vol] 90.3 fL Normal 81.0-99.0 [facility] Comment on above: Performed By: #### C BC #### [facility] [address] [place] [address] Dr. Juan Zamarripa MONO # 0.5 103/ul Normal 0.3-0.8 [facility] Comment on above: Performed By: #### C BC #### [facility] [address] [place] [address] Dr. Juan Zamarripa Monocytes/100 WBC (Bld) 4.8 % Normal 1.7-12.0 [facility] Comment on above: Performed By: #### C BC #### [facility] [address] [place] [address] Dr. Juan Zamarripa NEUT # 4.2 103/ul Normal 1.4-6.5 [facility] Comment on above: Performed By: #### C BC #### [facility] [address] [place] [address] Dr. Juan Zamarripa Neutrophils/100 WBC (Bld) 43.2 % Normal 43.0-75.0 [facility] Comment on above: Performed By: #### C BC #### [facility] [address] [place] [address] Dr. Juan Zamarripa Platelet mean volume (Bld) [Entitic vol] 9.5 fL Normal 9.5-13.5 [facility] Comment on above: Performed By: #### C BC #### [facility] [address] [place] [address] Dr. Juan Zamarripa PLT 149 103/ul Critically low 150-450 [facility] Comment on above: Performed By: #### C BC #### [facility] [address] [place] [address] Dr. Juan Zamarripa RBC 4.00 106/ul Critically low 4.20-5.40 [facility] Comment on above: Performed By: #### C BC #### [facility] [address] [place] [address] Dr. Juan Zamarripa WBC 9.6 103/ul Normal 4.0-11.0 [facility] Comment on above: Performed By: #### C BC #### [facility] [address] [place] [address] Dr. Juan Zamarripa PROF CHEM 8 (BAS METB)on Anion gap [Moles/Vol] 11.4 mmol/L Normal [facility] Comment on above: Performed By: #### L IPA, HSTROPN, TSH, CMP #### [facility] [address] [place] [address] Dr. Juan Zamarripa Calcium [Mass/Vol] 8.7 mg/dL Normal 8.5-10.1 [facility] Comment on above: Performed By: #### L IPA, HSTROPN, TSH, CMP #### [facility] [address] [place] [address] Dr. Juan Zamarripa Chloride [Moles/Vol] 102 mmol/L Normal 98-107 [facility] Comment on above: Performed By: #### L IPA, HSTROPN, TSH, CMP #### [facility] [address] [place] [address] Dr. Juan Zamarripa CO2 [Moles/Vol] 28.5 mmol/L Normal 21.0-32.0 [facility] Comment on above: Performed By: #### L IPA, HSTROPN, TSH, CMP #### [facility] [address] [place] [address] Dr. Juan Zamarripa Creatinine [Mass/Vol] 0.88 mg/dL Normal 0.55-1.02 [facility] Comment on above: Performed By: #### L IPA, HSTROPN, TSH, CMP #### [facility] [address] [place] [address] Dr. Juan Zamarripa EGFR-AF GERMAN >60 Normal >=60 [facility] Comment on above: Performed By: #### L IPA, HSTROPN, TSH, CMP #### [facility] [address] [place] [address] Dr. Juan Zamarripa EGFR-NON AF GERMAN >60 Normal >=60 [facility] Comment on above: Performed By: #### L IPA, HSTROPN, TSH, CMP #### [facility] [address] [place] [address] Dr. Juan Zamarripa Glucose [Mass/Vol] 129 mg/dL Critically high 74-106 T [facility] Comment on above: Performed By: #### L IPA, HSTROPN, TSH, CMP #### [facility] [address] [place] [address] Dr. Juan Zamarripa Potassium [Moles/Vol] 3.9 mmol/L Normal 3.5-5.1 [facility] Comment on above: Performed By: #### L IPA, HSTROPN, TSH, CMP #### [facility] [address] [place] [address] Dr. Juan Zamarripa Sodium [Moles/Vol] 138 mmol/L Normal 136-145 [facility] Comment on above: Performed By: #### L IPA, HSTROPN, TSH, CMP #### [facility] [address] [place] [address] Dr. Juan Zamarripa Urea nitrogen [Mass/Vol] 12.0 mg/dL Normal 7.0-18.0 [facility] Comment on above: Performed By: #### L IPA, HSTROPN, TSH, CMP #### [facility] [address] [place] [address] Dr. Juan Zamarripa Urea nitrogen/Creatinine [Mass ratio] 13.6 mg/mg Normal [facility] Comment on above: Performed By: #### L IPA, HSTROPN, TSH, CMP #### [facility] [address] [place] [address] Dr. Juan Zamarripa ACETONE SERUMon 04-12-2022 ACETONE Negative Normal NEGATIVE [facility] Comment on above: Performed By: #### C BC #### [facility] [address] [place] [address] Dr. Juan Zamarriap BLOOD CULTURE ID PANELon A. baumannii Not detected Normal NOT DETECTED [facility] Comment on above: Performed By: #### L IPA, HSTROPN, TSH, CMP #### [facility] [address] [place] [address] Dr. Juan Zamarripa Bacteriodes fragilis Not detected Normal NOT DETECTED [facility] Comment on above: Performed By: #### L IPA, HSTROPN, TSH, CMP #### [facility] [address] [address] [address] Juan TYLERD CONTROLS PASSED [place] [facility] Comment on above: Performed By: #### L IPA, HSTROPN, TSH, CMP #### [facility] [address] [address] [address] Juan Zamarripa BCIDBTHD BLOOD CULTURE BOTTLE INFORMATION [facility] Comment on above: Performed By: #### L IPA, HSTROPN, TSH, CMP #### [facility] [address] [address] [address] Juan Zamarripa BCIDHD1 ANTIMICROBIAL RESIST ANCE GENES [facility] Comment on above: Performed By: #### L IPA, HSTROPN, TSH, CMP #### [facility] [address] [address] [address] Juan Zamarripa BCIDHD2 SEE BELOW [facility] Comment on above: Result Comment: Note : Antimicrobial resitance can occur via multiple mechanisms. A Not Detected result for the [employer] antomicrobial resistance gene assays does not indicate antimicrobial susceptibility. Subculturing is required for species identification and susceptibility testing of isolates. Performed By: #### L IPA, HSTROPN, TSH, CMP #### [facility] [address] [address] [address] Juan Zamarripa BCIDHD3 Positive [facility] Comment on above: Performed By: #### L IPA, HSTROPN, TSH, CMP #### [facility] [address] [address] [address] Juan Zamarripa BCIDHD4 Negative [facility] Comment on above: Performed By: #### L IPA, HSTROPN, TSH, CMP #### [facility] [address] [address] [address] Juan Zamarripa BCIDHD5 YEAST [facility] Comment on above: Performed By: #### L IPA, HSTROPN, TSH, CMP #### [facility] [address] [address] [address] Juan Zamarripa Bottle Set: Set 1 [facility] Comment on above: Performed By: #### L IPA, HSTROPN, TSH, CMP #### [facility] [address] [address] [address] Juan Zamarripa Bottle: Anaerobic Normal [facility] Comment on above: Performed By: #### L IPA, HSTROPN, TSH, CMP #### [facility] [address] [address] [address] Juan Zamarripa C. neoformans/gattii Not detected Normal NOT DETECTED [facility] Comment on above: Performed By: #### L IPA, HSTROPN, TSH, CMP #### [facility] [address] [address] [address] Juan Zamarripa Mary Lou albicans Not detected Normal NOT DETECTED [facility] Comment on above: Performed By: #### L IPA, HSTROPN, TSH, CMP #### [facility] [address] [address] [address] Juan Zamarripa Mary Lou auris Not detected Normal NOT DETECTED [facility] Comment on above: Performed By: #### L IPA, HSTROPN, TSH, CMP #### [facility] [address] [address] [address] Juan Zamarripa Mary Lou glabrata Not detected Normal NOT DETECTED [facility] Comment on above: Performed By: #### L IPA, HSTROPN, TSH, CMP #### [facility] [address] [address] [address] Juan Zamarripa Mary Lou Krusei Not detected Normal NOT DETECTED [facility] Comment on above: Performed By: #### L IPA, HSTROPN, TSH, CMP #### [facility] [address] [address] [address] Juan Zamarripa Mary [place] Parapsilosis Not detected Normal NOT DETECTED [facility] Comment on above: Performed By: #### L IPA, HSTROPN, TSH, CMP #### [facility] [address] [address] [address] Juan Zamarripa Mary Lou Tropicalis Not detected Normal NOT DETECTED [facility] Comment on above: Performed By: #### L IPA, HSTROPN, TSH, CMP #### [facility] [address] [address] [address] Juan Zamarripa CTX-M Resistant Gene Not Applicable Normal NOT DETECTED [facility] Comment on above: Performed By: #### L IPA, HSTROPN, TSH, CMP #### [facility] [address] [address] [address] Juan Zamarripa E. Cloacae complex Not detected Normal NOT DETECTED [facility] Comment on above: Performed By: #### L IPA, HSTROPN, TSH, CMP #### [facility] [address] [address] [address] Juan Zamarripa E. faecalis Not detected Normal NOT DETECTED [facility] Comment on above: Performed By: #### L IPA, HSTROPN, TSH, CMP #### [facility] [address] [place] [address] Dr. Juan Zamarripa E. faecium Not detected Normal NOT DETECTED [facility] Comment on above: Performed By: #### L IPA, HSTROPN, TSH, CMP #### [facility] [address] [address] [address] Juan Zamarripa Enterobacteriaceae Not detected Normal NOT DETECTED [facility] Comment on above: Performed By: #### L IPA, HSTROPN, TSH, CMP #### [facility] [address] [address] [address] Juan Zamarripa Escherichia coli Not detected Normal NOT DETECTED [facility] Comment on above: Performed By: #### L IPA, HSTROPN, TSH, CMP #### [facility] [address] [address] [address] Juan Zamarripa H. influenzae Not detected Normal NOT DETECTED [facility] Comment on above: Performed By: #### L IPA, HSTROPN, TSH, CMP #### [facility] [address] [place] [address] Dr. Juan Zamarripa IMP Resistant Gene Not Applicable Normal NOT DETECTED [facility] Comment on above: Performed By: #### L IPA, HSTROPN, TSH, CMP #### [facility] [address] [address] [address] Juan Zamarripa K. oxytoca Not detected Normal NOT DETECTED [facility] Comment on above: Performed By: #### L IPA, HSTROPN, TSH, CMP #### [facility] [address] [address] [address] Juan Zamarripa K. pneumoniae Not detected Normal NOT DETECTED [facility] Comment on above: Performed By: #### L IPA, HSTROPN, TSH, CMP #### [facility] [address] [address] [address] Juan Zamarripa Klebsiella aerogenes Not detected Normal NOT DETECTED [facility] Comment on above: Performed By: #### L IPA, HSTROPN, TSH, CMP #### [facility] [address] [place] [address] Dr. Juan Zamarripa KPC Resistant Gene Not Applicable Normal NOT DETECTED [facility] Comment on above: Performed By: #### L IPA, HSTROPN, TSH, CMP #### [facility] [address] [place] [address] Dr. Juan Zamarripa List. monocytogenes Not detected Normal NOT DETECTED [facility] Comment on above: Performed By: #### L IPA, HSTROPN, TSH, CMP #### [facility] [address] [place] [address] Dr. Juan Zamarripa Mcr-1 Resistant Gene Not Applicable Normal NOT DETECTED [facility] Comment on above: Performed By: #### L IPA, HSTROPN, TSH, CMP #### [facility] [address] [place] [address] Dr. Juan Zamarripa mecA/C Not Applicable Normal NOT DETECTED [facility] Comment on above: Performed By: #### L IPA, HSTROPN, TSH, CMP #### [facility] [address] [place] [address] Dr. Juan Zamarripa mecA/C MREJ Not Applicable Normal NOT DETECTED [facility] Comment on above: Performed By: #### L IPA, HSTROPN, TSH, CMP #### [facility] [address] [place] [address] Dr. Juan Zamarripa N. meningitidis Not detected Normal NOT DETECTED [facility] Comment on above: Performed By: #### L IPA, HSTROPN, TSH, CMP #### [facility] [address] [place] [address] Dr. Juan Zamarripa NDM Resistant Gene Not Applicable Normal NOT DETECTED [facility] Comment on above: Performed By: #### L IPA, HSTROPN, TSH, CMP #### [facility] [address] [place] [address] Dr. Juan Zamarripa Oxa-48-like Not Applicable Normal NOT DETECTED [facility] Comment on above: Performed By: #### L IPA, HSTROPN, TSH, CMP #### [facility] [address] [place] [address] Dr. Juan Zamarripa Proteus Not detected Normal NOT DETECTED [facility] Comment on above: Performed By: #### L IPA, HSTROPN, TSH, CMP #### [facility] [address] [place] [address] Dr. Juan Zamarripa Pseud. aeruginosa Not detected Normal NOT DETECTED [facility] Comment on above: Performed By: #### L IPA, HSTROPN, TSH, CMP #### [facility] [address] [place] [address] Dr. Juan Zamarripa S. maltophilia Not detected Normal NOT DETECTED [facility] Comment on above: Performed By: #### L IPA, HSTROPN, TSH, CMP #### [facility] [address] [place] [address] Dr. Juan Zamarripa Salmonella Not detected Normal NOT DETECTED [facility] Comment on above: Performed By: #### L IPA, HSTROPN, TSH, CMP #### [facility] [address] [place] [address] Dr. Juan Zamarripa Seratia marcescens Not detected Normal NOT DETECTED [facility] Comment on above: Performed By: #### L IPA, HSTROPN, TSH, CMP #### [facility] [address] [place] [address] Dr. Juan Zamarripa Site: Rt Ac Normal [facility] Comment on above: Performed By: #### L IPA, HSTROPN, TSH, CMP #### [facility] [address] [address] [address] Juan Zamarripa Staph. aureus Not detected Normal NOT DETECTED [facility] Comment on above: Performed By: #### L IPA, HSTROPN, TSH, CMP #### [facility] [address] [address] [address] Juan Zamarripa Staph. epidermidis Not detected Normal NOT DETECTED [facility] Comment on above: Performed By: #### L IPA, HSTROPN, TSH, CMP #### [facility] [address] [address] [address] Juan Zamarripa Staph. lugdunensis Not detected Normal NOT DETECTED [facility] Comment on above: Performed By: #### L IPA, HSTROPN, TSH, CMP #### [facility] [address] [address] [address] Juan Zamarripa Staphylococcus Detected Critically abnormal NOT DETECTED [facility] Comment on above: Performed By: #### L IPA, HSTROPN, TSH, CMP #### [facility] [address] [address] [address] Juan Zamarripa Strep. agalactiae Not detected Normal NOT DETECTED [facility] Comment on above: Performed By: #### L IPA, HSTROPN, TSH, CMP #### [facility] [address] [address] [address] Juan Zamarripa Strep. pneumoniae Not detected Normal NOT DETECTED [facility] Comment on above: Performed By: #### L IPA, HSTROPN, TSH, CMP #### [facility] [address] [address] [address] Juan Zamarripa Strep. pyogenes Not detected Normal NOT DETECTED [facility] Comment on above: Performed By: #### L IPA, HSTROPN, TSH, CMP #### [facility] [address] [address] [address] Juan Zamarripa Streptococcus Not detected Normal NOT DETECTED [facility] Comment on above: Performed By: #### L IPA, HSTROPN, TSH, CMP #### [facility] [address] [place] [address] Dr. Juan Maynard/Keisha Resist. Gene Not Applicable Normal NOT DETECTED [facility] Comment on above: Performed By: #### L IPA, HSTROPN, TSH, CMP #### [facility] [address] [place] [address] Dr. Juan Zamarripa VIM Resistant Gene Not Applicable Normal NOT DETECTED [facility] Comment on above: Performed By: #### L IPA, HSTROPN, TSH, CMP #### [facility] [address] [place] [address] Dr. Juan Zamarripa CBC AUTO DIFFon 04-12-2022 BASO # 0.1 103/ul Normal 0.0-0.1 [facility] Comment on above: Performed By: #### L IPA, HSTROPN, TSH, CMP #### [facility] [address] [place] [address] Dr. Juan Zamarripa Basophils/100 WBC (Bld) 0.6 % Normal 0.2-2.0 [facility] Comment on above: Performed By: #### L IPA, HSTROPN, TSH, CMP #### [facility] [address] [place] [address] Dr. Juan Zamarripa EO # 0.1 103/ul Normal 0.0-0.7 [facility] Comment on above: Performed By: #### L IPA, HSTROPN, TSH, CMP #### [facility] [address] [place] [address] Dr. Juan Zamarripa Eosinophils/100 WBC (Bld) 0.9 % Normal 0.9-7.0 [facility] Comment on above: Performed By: #### L IPA, HSTROPN, TSH, CMP #### [facility] [address] [place] [address] Dr. Juan Zamarripa Erythrocyte distribution width (RBC) [Ratio] 12.8 % Normal 11.0-15.0 [facility] Comment on above: Performed By: #### L IPA, HSTROPN, TSH, CMP #### [facility] [address] [place] [address] Dr. Juan Zamarripa Hematocrit (Bld) [Volume fraction] 42.9 % Normal 36.0-48.0 [facility] Comment on above: Performed By: #### L IPA, HSTROPN, TSH, CMP #### [facility] [address] [place] [address] Dr. Juan Zamarripa Hemoglobin (Bld) [Mass/Vol] 15.1 g/dL Normal 12.0-16.0 [facility] Comment on above: Performed By: #### L IPA, HSTROPN, TSH, CMP #### [facility] [address] [place] [address] Dr. Juan Zamarripa IG # 0.04 10e3/ul Critically high 0.00-0.03 [facility] Comment on above: Performed By: #### L IPA, HSTROPN, TSH, CMP #### [facility] [address] [place] [address] Dr. Juan Zamarripa IG % 0.3 % Normal 0.0-0.5 [facility] Comment on above: Performed By: #### L IPA, HSTROPN, TSH, CMP #### [facility] [address] [place] [address] Dr. Juan Zamarripa LYMPH # 5.0 103/ul Critically high 1.2-3.8 [facility] Comment on above: Performed By: #### L IPA, HSTROPN, TSH, CMP #### [facility] [address] [place] [address] Dr. Juan Zamarripa Lymphocytes/100 WBC (Bld) 43.6 % Normal 20.5-60.0 [facility] Comment on above: Performed By: #### L IPA, HSTROPN, TSH, CMP #### [facility] [address] [place] [address] Dr. Juan Zamarripa MANUAL DIFF REQ NO Normal [facility] Comment on above: Performed By: #### L IPA, HSTROPN, TSH, CMP #### [facility] [address] [place] [address] Dr. Juan Zamarripa MCH (RBC) [Entitic mass] 31.3 pg Normal 26.7-34.0 [facility] Comment on above: Performed By: #### L IPA, HSTROPN, TSH, CMP #### [facility] [address] [place] [address] Dr. Juan Zamarripa MCHC (RBC) [Mass/Vol] 35.2 g/dL Normal 29.9-35.2 [facility] Comment on above: Performed By: #### L IPA, HSTROPN, TSH, CMP #### [facility] [address] [place] [address] Dr. Juan Zamarripa MCV (RBC) [Entitic vol] 88.8 fL Normal 81.0-99.0 [facility] Comment on above: Performed By: #### L IPA, HSTROPN, TSH, CMP #### [facility] [address] [place] [address] Dr. Juan Zamarripa MONO # 0.6 103/ul Normal 0.3-0.8 [facility] Comment on above: Performed By: #### L IPA, HSTROPN, TSH, CMP #### [facility] [address] [place] [address] Dr. Juan Zamarripa Monocytes/100 WBC (Bld) 5.2 % Normal 1.7-12.0 [facility] Comment on above: Performed By: #### L IPA, HSTROPN, TSH, CMP #### [facility] [address] [place] [address] Dr. Juan Zamarripa NEUT # 5.7 103/ul Normal 1.4-6.5 [facility] Comment on above: Performed By: #### L IPA, HSTROPN, TSH, CMP #### [facility] [address] [place] [address] Dr. Juan Zamarripa Neutrophils/100 WBC (Bld) 49.4 % Normal 43.0-75.0 [facility] Comment on above: Performed By: #### L IPA, HSTROPN, TSH, CMP #### [facility] [address] [place] [address] Dr. Juan Zamarripa Platelet mean volume (Bld) [Entitic vol] 9.6 fL Normal 9.5-13.5 [facility] Comment on above: Performed By: #### L IPA, HSTROPN, TSH, CMP #### [facility] [address] [address] [address] Juan Zamarripa PLT 210 103/ul Normal 150-450 [facility] Comment on above: Performed By: #### L IPA, HSTROPN, TSH, CMP #### [facility] [address] [address] [address] Juan Zamarripa RBC 4.83 106/ul Normal 4.20-5.40 [facility] Comment on above: Performed By: #### L IPA, HSTROPN, TSH, CMP #### [facility] [address] [address] [address] Juan Zamarripa WBC 11.5 103/ul Critically high 4.0-11.0 [facility] Comment on above: Performed By: #### L IPA, HSTROPN, TSH, CMP #### [facility] [address] [address] [address] ABD/PELV W CONon [...] CARO SIBLEY Date: 2022-04-12 16:53 Normal [facility] CULTURE BLOODon 04-12-2022 Microscopic examination of blood, culture Culture Observations: NO GROWTH AT 5 DAYS. Isolate 1 [id number] Normal [facility] Comment on above: Performed By: #### A 1C #### [facility] [address] [address] [address] Juan Zamarripa CULTURE URINEon 04-12-2022 CULTURE URINE Culture Observations : MODERATE GROWTH OF MIXED GENITAL ALDA. NO POTENTIAL PATHOGENS SEEN. Normal [facility] Comment on above: Performed By: #### U RCX #### [facility] [address] [place] [address] Dr. Juan Zamarripa [facility] SARS-CoV-2 (COVID-19) RNA SUNNY+probe Ql (Unsp spec) Not detected Normal NOT DETECTED [facility] Comment on above: Result Comment: When diagnostic [...] for this test is supported by the Manager Child of Health and Human Service's declaration that [...] #### L IPA, HSTROPN, TSH, CMP #### [facility] [address] [place] [address] Dr. Juan Zamarripa ER URINE PROFILEon 3 Bilirubin Ql (U) Negative Normal NEGATIVE [facility] Comment on above: Performed By: #### C BC #### [facility] [address] [place] [address] Dr. Juan Zamarripa Clarity (U) SL CLOUDY Abnormal CLEAR [facility] Comment on above: Performed By: #### C BC #### [facility] [address] [place] [address] Dr. Juan Zamarripa Color (U) LT. YELLOW Normal YELLOW [facility] Comment on above: Performed By: #### C BC #### [facility] [address] [place] [address] Dr. Juan GABRIEL A micrscopic examina tion will be performed if indicated. Normal [facility] Comment on above: Performed By: #### C BC #### [facility] [address] [place] [address] Dr. Juan Zamarripa Glucose Ql (U) 250 mg/dl Abnormal NEGATIVE [facility] Comment on above: Performed By: #### C BC #### [facility] [address] [place] [address] Dr. Juan Zamarripa Hemoglobin Ql (U) Negative Normal NEGATIVE [facility] Comment on above: Performed By: #### C BC #### [facility] [address] [place] [address] Dr. Juan Zamarripa Ketones Ql (U) TRACE Abnormal NEGATIVE [facility] Comment on above: Performed By: #### C BC #### [facility] [address] [place] [address] Dr. Juan Zamarripa LEUKOCYTES SMALL Abnormal NEGATIVE [facility] Comment on above: Performed By: #### C BC #### [facility] [address] [place] [address] Dr. Juan Zamarripa Nitrite Ql (U) Negative Normal NEGATIVE [facility] Comment on above: Performed By: #### C BC #### [facility] [address] [place] [address] Dr. Juan Zamarripa pH (U) 5.5 [pH] Normal 5-9 [facility] Comment on above: Performed By: #### C BC #### [facility] [address] [place] [address] Dr. Juan Zamarripa SPEC GRAVITY 1.030 Abnormal 1.005-<=1. 025 [facility] Comment on above: Performed By: #### C BC #### [facility] [address] [place] [address] Dr. Juan Zamarripa UA PROTEIN Negative Normal NEGATIVE/ TRACE [facility] Comment on above: Performed By: #### C BC #### [facility] [address] [place] [address] Dr. Juan Zamarripa UR MICRO IND INDICATED Normal [facility] Comment on above: Performed By: #### C BC #### [facility] [address] [place] [address] Dr. Juan Zamarripa Urobilinogen Qn (U) 0.2 {Amee'U}/dL Normal 0.2 - 1. 0 [facility] Comment on above: Performed By: #### C BC #### [facility] [address] [place] [address] Dr. Juan Zamarripa INFLUENZA A AND B AGon 04-12 INFLUANE SEE BELOW Normal [facility] Comment on above: Result Comment: Nega tive for Flu A protein angiten. Infection due to Flu A cannot be ruled out. Flu A angiten in the sample may be below the detection limit of the test. Performed By: #### L IPA, HSTROPN, TSH, CMP #### [facility] [address] [place] [address] Dr. Juan Zamarripa INFLUBNEGH SEE BELOW Normal [facility] Comment on above: Result Comment: Nega tive for Flu B protein antigen. Infection due to Flu B cannot be ruled out. Flu B antigen in the sample may be below the detection limit of the test. Performed By: #### L IPA, HSTROPN, TSH, CMP #### [facility] [address] [place] [address] Dr. Juan Zamarripa INFLUENZA A AG Negative Normal NEGATIVE SEE COMMENT [facility] Comment on above: Performed By: #### L IPA, HSTROPN, TSH, CMP #### [facility] [address] [place] [address] Dr. Juan Zamarripa INFLUENZA B AG Negative Normal NEGATIVE SEE COMMENT [facility] Comment on above: Performed By: #### L IPA, HSTROPN, TSH, CMP #### [facility] [address] [place] [address] Dr. Juan Zamarripa LACTATE/LACTIC ACIDon 2022 Lactate [Moles/Vol] 1.8 mmol/L Normal 0.4-1.9 [facility] Comment on above: Performed By: #### C BC #### [facility] [address] [place] [address] Dr. Juan Zamarripa Lactate [Moles/Vol] 3.1 mmol/L Critically high 0.4-1.9 [facility] Comment on above: Performed By: #### L IPA, HSTROPN, TSH, CMP #### [facility] [address] [place] [address] Dr. Juan Zamarripa LIPASEon 04-12-2022 Lipase [Catalytic activity/Vol] 183.0 U/L Normal 73.0-393.0 [facility] Comment on above: Performed By: #### A 1C #### [facility] [address] [place] [address] Dr. Juan Zamarripa PH VENOUS BLOODon 04-12-2022 PCO2 VENOUS 42.9 mmHg Normal 40.0-52.0 [facility] Comment on above: Performed By: #### C BC #### [facility] [address] [place] [address] Dr. Juan Zamarripa pH VENOUS 7.383 Normal 7.330-7.43 0 [facility] Comment on above: Performed By: #### C BC #### [facility] [address] [place] [address] Dr. Juan Zamarripa PROF 14(COMP METB)on 023 Albumin [Mass/Vol] 4.3 g/dL Normal 3.4-5.0 [facility] Comment on above: Performed By: #### A 1C #### [facility] [address] [place] [address] Dr. Juan Zamarripa Albumin/Globulin [Mass ratio] 1.0 {ratio} Normal [facility] Comment on above: Performed By: #### A 1C #### [facility] [address] [place] [address] Dr. Juan Zamarripa ALP [Catalytic activity/Vol] 96 U/L Normal 46-116 [facility] Comment on above: Performed By: #### A 1C #### [facility] [address] [place] [address] Dr. Juan Zamarripa ALT [Catalytic activity/Vol] 80 U/L Critically high 14-59 [facility] Comment on above: Performed By: #### A 1C #### [facility] [address] [place] [address] Dr. Juan Zamarripa Anion gap [Moles/Vol] 14.7 mmol/L Normal [facility] Comment on above: Performed By: #### A 1C #### [facility] [address] [place] [address] Dr. Juan Zamarripa AST [Catalytic activity/Vol] 45 U/L Critically high 15-37 [facility] Comment on above: Performed By: #### A 1C #### [facility] [address] [place] [address] Dr. Juan Zamarripa Bilirubin [Mass/Vol] 0.8 mg/dL Normal 0.2-1.0 [facility] Comment on above: Performed By: #### A 1C #### [facility] [address] [place] [address] Dr. Juan Zamarripa Calcium [Mass/Vol] 10.0 mg/dL Normal 8.5-10.1 [facility] Comment on above: Performed By: #### A 1C #### [facility] [address] [place] [address] Dr. Juan Zamarripa Chloride [Moles/Vol] 99 mmol/L Normal 98-107 [facility] Comment on above: Performed By: #### A 1C #### [facility] [address] [place] [address] Dr. Juan Zamarripa CO2 [Moles/Vol] 26.4 mmol/L Normal 21.0-32.0 [facility] Comment on above: Performed By: #### A 1C #### [facility] [address] [place] [address] Dr. Juan Zamarripa Creatinine [Mass/Vol] 0.89 mg/dL Normal 0.55-1.02 [facility] Comment on above: Performed By: #### A 1C #### [facility] [address] [place] [address] Dr. Juan Zamarripa EGFR-AF GERMAN >60 Normal >=60 [facility] Comment on above: Performed By: #### A 1C #### [facility] [address] [place] [address] Dr. Juan Zamarripa EGFR-NON AF GERMAN >60 Normal >=60 [facility] Comment on above: Performed By: #### A 1C #### [facility] [address] [place] [address] Dr. Juan Zamarripa Globulin (S) [Mass/Vol] 4.3 g/dL Normal [facility] Comment on above: Performed By: #### A 1C #### [facility] [address] [place] [address] Dr. Juan Zamarripa Glucose [Mass/Vol] 168 mg/dL Critically high 74-106 [facility] Comment on above: Performed By: #### A 1C #### [facility] [address] [place] [address] Dr. Juan Zamarripa Potassium [Moles/Vol] 4.1 mmol/L Normal 3.5-5.1 [facility] Comment on above: Performed By: #### A 1C #### [facility] [address] [address] [address] Juan Zamarripa Protein [Mass/Vol] 8.6 g/dL Critically high 6.4-8.2 [facility] Comment on above: Performed By: #### A 1C #### [facility] [address] [address] [address] Juan Zamarripa Sodium [Moles/Vol] 136 mmol/L Normal 136-145 [facility] Comment on above: Performed By: #### A 1C #### [facility] [address] [address] [address] Juan Zamarripa Urea nitrogen [Mass/Vol] 18.0 mg/dL Normal 7.0-18.0 [facility] Comment on above: Performed By: #### A 1C #### [facility] [address] [place] [address] Dr. Juan Zamarripa Urea nitrogen/Creatinine [Mass ratio] 20.2 mg/mg Normal [facility] Comment on above: Performed By: #### A 1C #### [facility] [address] [place] [address] Dr. Juan Zamarripa TROPONIN, HIGH SENSITIVITYon 04-12-2022 HSTROP 4.9 pg/mL Normal 4.0-51.3 [facility] Comment on above: Result Comment: CUT- OFF POINTS HAVE BEEN ESTABLISHED BASED ON THE FOURTH UNIVERSAL DEFINITIONS OF MYOCARDIAL INFARCTION. THE UPPER REFERENCE LIMIT (URL) OF TROPONIN, DEFINED THE 99TH PERCENTILE OF cTnI DISTRIBUTION IN A REFERENCE POPULATION, HAS BEEN CONFIRMED THE DECISION THRESHOLD FOR WI DIAGNOSIS. Performed By: #### A 1C #### [facility] [address] [address] [address] Juan Zamarripa TSHon 04-12-2022 TSH 1.593 uIU/mL Normal 0.358-3.74 0 [facility] Comment on above: Performed By: #### C BC #### [facility] [address] [address] [address] Juan Zamarripa URINE MICROSCOPIC ONLYon BACTERIA SMALL Abnormal NONE SEEN [facility] Comment on above: Performed By: #### C BC #### [facility] [address] [place] [address] Dr. Juan Zamarripa Bacteria identified Cx Nom (U) INDICATED Normal [facility] Comment on above: Performed By: #### C BC #### [facility] [address] [place] [address] Dr. Juan Zamarripa CAST NONE SEEN Normal NONE SEEN [facility] Comment on above: Performed By: #### C BC #### [facility] [address] [place] [address] Dr. Juan Zamarripa Crystals LM Nom (Urine sed) NONE SEEN Normal NONE SEEN [facility] Comment on above: Performed By: #### C BC #### [facility] [address] [place] [address] Dr. Juan Zamarripa Epithelial cells LM Ql (Urine sed) FEW Abnormal NONE SEEN /RARE [facility] Comment on above: Performed By: #### C BC #### [facility] [address] [place] [address] Dr. Juan Zamarripa MUCOUS NONE SEEN Normal NONE SEEN [facility] Comment on above: Performed By: #### C BC #### [facility] [address] [place] [address] Dr. Juan Zamarripa RBC 0-2 Normal 0-2 [facility] Comment on above: Performed By: #### C BC #### [facility] [address] [place] [address] Dr. Juan Zamarripa WBC 2-5 Abnormal NONE SEEN [facility] Comment on above: Performed By: #### C BC #### [facility] [address] [place] [address] Dr. Juan Zamarripa XR CHEST 1 Von [...] chronic interstitial changes. Electronically authenticated by: JAZMINE BECKSYLVIA Date: 2022-04-12 15:31 Normal [facility] CBC AUTO DIFFon 11-26-2021 BASO # 0.1 103/ul Normal 0.0-0.1 [facility] Comment on above: Performed By: #### L IPA, HSTROPN, TSH, CMP #### [facility] [address] [place] [address] Dr. Juan Zamarripa Basophils/100 WBC (Bld) 0.5 % Normal 0.2-2.0 [facility] Comment on above: Performed By: #### L IPA, HSTROPN, TSH, CMP #### [facility] [address] [place] [address] Dr. Juan Zamarripa EO # 0.1 103/ul Normal 0.0-0.7 [facility] Comment on above: Performed By: #### L IPA, HSTROPN, TSH, CMP #### [facility] [address] [place] [address] Dr. Juan Zamarripa Eosinophils/100 WBC (Bld) 1.1 % Normal 0.9-7.0 [facility] Comment on above: Performed By: #### L IPA, HSTROPN, TSH, CMP #### [facility] [address] [place] [address] Dr. Juan Zamarripa Erythrocyte distribution width (RBC) [Ratio] 12.5 % Normal 11.0-15.0 [facility] Comment on above: Performed By: #### L IPA, HSTROPN, TSH, CMP #### [facility] [address] [place] [address] Dr. Juan Zamarripa Hematocrit (Bld) [Volume fraction] 39.6 % Normal 36.0-48.0 [facility] Comment on above: Performed By: #### L IPA, HSTROPN, TSH, CMP #### [facility] [address] [place] [address] Dr. Juan Zamarripa Hemoglobin (Bld) [Mass/Vol] 13.7 g/dL Normal 12.0-16.0 [facility] Comment on above: Performed By: #### L IPA, HSTROPN, TSH, CMP #### [facility] [address] [place] [address] Dr. Juan Zamarripa IG # 0.04 10e3/ul Critically high 0.00-0.03 [facility] Comment on above: Performed By: #### L IPA, HSTROPN, TSH, CMP #### [facility] [address] [place] [address] Dr. Juan Zamarripa IG % 0.4 % Normal 0.0-0.5 [facility] Comment on above: Performed By: #### L IPA, HSTROPN, TSH, CMP #### [facility] [address] [place] [address] Dr. Juan Zamarripa LYMPH # 4.2 103/ul Critically high 1.2-3.8 [facility] Comment on above: Performed By: #### L IPA, HSTROPN, TSH, CMP #### [facility] [address] [place] [address] Dr. Juan Zamarripa Lymphocytes/100 WBC (Bld) 38.8 % Normal 20.5-60.0 [facility] Comment on above: Performed By: #### L IPA, HSTROPN, TSH, CMP #### [facility] [address] [place] [address] Dr. Juan Zamarripa MANUAL DIFF REQ NO Normal [facility] Comment on above: Performed By: #### L IPA, HSTROPN, TSH, CMP #### [facility] [address] [place] [address] Dr. Juan Zamarripa MCH (RBC) [Entitic mass] 32.2 pg Normal 26.7-34.0 [facility] Comment on above: Performed By: #### L IPA, HSTROPN, TSH, CMP #### [facility] [address] [place] [address] Dr. Juan Zamarripa MCHC (RBC) [Mass/Vol] 34.6 g/dL Normal 29.9-35.2 [facility] Comment on above: Performed By: #### L IPA, HSTROPN, TSH, CMP #### [facility] [address] [place] [address] Dr. Juan Zamarripa MCV (RBC) [Entitic vol] 93.0 fL Normal 81.0-99.0 [facility] Comment on above: Performed By: #### L IPA, HSTROPN, TSH, CMP #### [facility] [address] [place] [address] Dr. Juan Zamarripa MONO # 0.4 103/ul Normal 0.3-0.8 [facility] Comment on above: Performed By: #### L IPA, HSTROPN, TSH, CMP #### [facility] [address] [place] [address] Dr. Juan Zamarripa Monocytes/100 WBC (Bld) 3.9 % Normal 1.7-12.0 [facility] Comment on above: Performed By: #### L IPA, HSTROPN, TSH, CMP #### [facility] [address] [place] [address] Dr. Juan Zamarripa NEUT # 6.1 103/ul Normal 1.4-6.5 [facility] Comment on above: Performed By: #### L IPA, HSTROPN, TSH, CMP #### [facility] [address] [place] [address] Dr. Juan Zamarripa Neutrophils/100 WBC (Bld) 55.3 % Normal 43.0-75.0 [facility] Comment on above: Performed By: #### L IPA, HSTROPN, TSH, CMP #### [facility] [address] [place] [address] Dr. Juan Zamarripa Platelet mean volume (Bld) [Entitic vol] 9.6 fL Normal 9.5-13.5 [facility] Comment on above: Performed By: #### L IPA, HSTROPN, TSH, CMP #### [facility] [address] [place] [address] Dr. Juan Zamarripa PLT 187 103/ul Normal 150-450 [facility] Comment on above: Performed By: #### L IPA, HSTROPN, TSH, CMP #### [facility] [address] [address] [address] Juan Zamarripa RBC 4.26 106/ul Normal 4.20-5.40 [facility] Comment on above: Performed By: #### L IPA, HSTROPN, TSH, CMP #### [facility] [address] [address] [address] Juan Zamarripa WBC 10.9 103/ul Normal 4.0-11.0 [facility] Comment on above: Performed By: #### L IPA, HSTROPN, TSH, CMP #### [facility] [address] [address] [address] Juan Zamarripa Covid-19 PCR ([facility])on 11-07 SARS-CoV-2 (COVID-19) RNA SUNNY+probe Ql (Unsp spec) Not detected Normal NOT DETECTED [facility] Comment on above: Result Comment: When diagnostic [...] for this test is supported by the Manager Child of Health and Human Service's declaration that [...] #### L IPA, HSTROPN, TSH, CMP #### [facility] [address] [address] [address] Juan Zamarripa LIPASEon 11-26-2021 Lipase [Catalytic activity/Vol] 140.0 U/L Normal 73.0-393.0 [facility] Comment on above: Performed By: #### L IPA, HSTROPN, TSH, CMP #### [facility] [address] [address] [address] Juan Zamarripa PROF 14(COMP METB)on 022 Albumin [Mass/Vol] 4.2 g/dL Normal 3.4-5.0 [facility] Comment on above: Performed By: #### L IPA, HSTROPN, TSH, CMP #### [facility] [address] [address] [address] Juan Zamarripa Albumin/Globulin [Mass ratio] 1.1 {ratio} Normal [facility] Comment on above: Performed By: #### L IPA, HSTROPN, TSH, CMP #### [facility] [address] [place] [address] Dr. Juan Zamarripa ALP [Catalytic activity/Vol] 93 U/L Normal 46-116 [facility] Comment on above: Performed By: #### L IPA, HSTROPN, TSH, CMP #### [facility] [address] [place] [address] Dr. Juan Zamarripa ALT [Catalytic activity/Vol] 74 U/L Critically high 14-59 [facility] Comment on above: Performed By: #### L IPA, HSTROPN, TSH, CMP #### [facility] [address] [address] [address] Juan Zamarripa Anion gap [Moles/Vol] 15.6 mmol/L Normal [facility] Comment on above: Performed By: #### L IPA, HSTROPN, TSH, CMP #### [facility] [address] [place] [address] Dr. Juan Zamarripa AST [Catalytic activity/Vol] 46 U/L Critically high 15-37 [facility] Comment on above: Performed By: #### L IPA, HSTROPN, TSH, CMP #### [facility] [address] [place] [address] Dr. Juan Zamarripa Bilirubin [Mass/Vol] 0.6 mg/dL Normal 0.2-1.0 [facility] Comment on above: Performed By: #### L IPA, HSTROPN, TSH, CMP #### [facility] [address] [place] [address] Dr. Juan Zamarripa Calcium [Mass/Vol] 9.7 mg/dL Normal 8.5-10.1 [facility] Comment on above: Performed By: #### L IPA, HSTROPN, TSH, CMP #### [facility] [address] [address] [address] Juan Zamarripa Chloride [Moles/Vol] 100 mmol/L Normal 98-107 [facility] Comment on above: Performed By: #### L IPA, HSTROPN, TSH, CMP #### [facility] [address] [place] [address] Dr. Juan Zamarripa CO2 [Moles/Vol] 25.6 mmol/L Normal 21.0-32.0 [facility] Comment on above: Performed By: #### L IPA, HSTROPN, TSH, CMP #### [facility] [address] [place] [address] Dr. Juan Zamarripa Creatinine [Mass/Vol] 0.89 mg/dL Normal 0.55-1.02 [facility] Comment on above: Performed By: #### L IPA, HSTROPN, TSH, CMP #### [facility] [address] [place] [address] Dr. Juan Zamarripa EGFR-AF GERMAN >60 Normal >=60 [facility] Comment on above: Performed By: #### L IPA, HSTROPN, TSH, CMP #### [facility] [address] [place] [address] Dr. Juan Zamarripa EGFR-NON AF GERMAN >60 Normal >=60 [facility] Comment on above: Performed By: #### L IPA, HSTROPN, TSH, CMP #### [facility] [address] [place] [address] Dr. Juan Zamarripa Globulin (S) [Mass/Vol] 3.7 g/dL Normal T [facility] Comment on above: Performed By: #### L IPA, HSTROPN, TSH, CMP #### [facility] [address] [address] [address] Juan Zamarripa Glucose [Mass/Vol] 183 mg/dL Critically high 74-106 T [facility] Comment on above: Performed By: #### L IPA, HSTROPN, TSH, CMP #### [facility] [address] [address] [address] Juan Zamarripa Potassium [Moles/Vol] 4.2 mmol/L Normal 3.5-5.1 [facility] Comment on above: Performed By: #### L IPA, HSTROPN, TSH, CMP #### [facility] [address] [address] [address] Juan Zamarripa Protein [Mass/Vol] 7.9 g/dL Normal 6.4-8.2 [facility] Comment on above: Performed By: #### L IPA, HSTROPN, TSH, CMP #### [facility] [address] [place] [address] Dr. Juan Zamarripa Sodium [Moles/Vol] 137 mmol/L Normal 136-145 [facility] Comment on above: Performed By: #### L IPA, HSTROPN, TSH, CMP #### [facility] [address] [address] [address] Juan Zamarripa Urea nitrogen [Mass/Vol] 13.0 mg/dL Normal 7.0-18.0 [facility] Comment on above: Performed By: #### L IPA, HSTROPN, TSH, CMP #### [facility] [address] [address] [address] Juan Zamarripa Urea nitrogen/Creatinine [Mass ratio] 14.6 mg/mg Normal [facility] Comment on above: Performed By: #### L IPA, HSTROPN, TSH, CMP #### [facility] [address] [place] [address] Dr. Juan Zamarripa TROPONIN, HIGH SENSITIVITYon 11-26-2021 HSTROP 4.6 pg/mL Normal 4.0-51.3 [facility] Comment on above: Result Comment: CUT- OFF POINTS HAVE BEEN ESTABLISHED BASED ON THE FOURTH UNIVERSAL DEFINITIONS OF MYOCARDIAL INFARCTION. THE UPPER REFERENCE LIMIT (URL) OF TROPONIN, DEFINED THE 99TH PERCENTILE OF cTnI DISTRIBUTION IN A REFERENCE POPULATION, HAS BEEN CONFIRMED THE DECISION THRESHOLD FOR WI DIAGNOSIS. Performed By: #### L IPA, HSTROPN, TSH, CMP #### [facility] [address] [place], [place] [address] Dr. Juan Zamarripa TSHon 11-26-2021 TSH 2.343 uIU/mL Normal 0.358-3.74 0 [facility] Comment on above: Performed By: #### L IPA, HSTROPN, TSH, CMP #### [facility] [address] [place], [place] [address] Dr. Juan Zamarripa XR CHEST 1 Von [...] VERA ARANA Date: 2021-11-26 21:03 Normal [facility] SARS-CoV-2 (COVID-19) RNA SUNNY+probe Ql (Unsp spec) Not detected Normal NOT DETECTED [facility] Comment on above: Result Comment: This test is not yet approved or cleared by the [place] FDA. When there are no FDA-approved or cleared tests available, and other criteria are met, FDA can make tests available under an emergency access mechanism called an Emergency Use Authorization (EUA). The EUA for this test is supported by the Manager Child of Health and Human Service's (HHS's) declaration [...] SARS-CoV-2. Performed By: #### C BC #### [facility] [address] [place] [address] Dr. Juan Zamarripa CBC AUTO DIFFon 08-17-2021 BASO # 0.1 103/ul Normal 0.0-0.1 [facility] Comment on above: Performed By: #### L IPA, HSTROPN, TSH, CMP #### [facility] [address] [place] [address] Dr. Juan Zamarripa Basophils/100 WBC (Bld) 0.7 % Normal 0.2-2.0 [facility] Comment on above: Performed By: #### L IPA, HSTROPN, TSH, CMP #### [facility] [address] [place] [address] Dr. Juan Zamarripa EO # 0.1 103/ul Normal 0.0-0.7 [facility] Comment on above: Performed By: #### L IPA, HSTROPN, TSH, CMP #### [facility] [address] [place] [address] Dr. Juan Zamarripa Eosinophils/100 WBC (Bld) 1.6 % Normal 0.9-7.0 [facility] Comment on above: Performed By: #### L IPA, HSTROPN, TSH, CMP #### [facility] [address] [place] [address] Dr. Juan Zamarripa Erythrocyte distribution width (RBC) [Ratio] 12.6 % Normal 11.0-15.0 [facility] Comment on above: Performed By: #### L IPA, HSTROPN, TSH, CMP #### [facility] [address] [place] [address] Dr. Juan Zamarripa Hematocrit (Bld) [Volume fraction] 39.8 % Normal 36.0-48.0 [facility] Comment on above: Performed By: #### L IPA, HSTROPN, TSH, CMP #### [facility] [address] [place] [address] Dr. Juan Zamarripa Hemoglobin (Bld) [Mass/Vol] 13.7 g/dL Normal 12.0-16.0 [facility] Comment on above: Performed By: #### L IPA, HSTROPN, TSH, CMP #### [facility] [address] [place] [address] Dr. Juan Zamarripa IG # 0.02 10e3/ul Normal 0.00-0.03 [facility] Comment on above: Performed By: #### L IPA, HSTROPN, TSH, CMP #### [facility] [address] [place] [address] Dr. Juan Zamarripa IG % 0.3 % Normal 0.0-0.5 [facility] Comment on above: Performed By: #### L IPA, HSTROPN, TSH, CMP #### [facility] [address] [place] [address] Dr. Juan Zamarripa LYMPH # 3.1 103/ul Normal 1.2-3.8 [facility] Comment on above: Performed By: #### L IPA, HSTROPN, TSH, CMP #### [facility] [address] [place] [address] Dr. Juan Zamarripa Lymphocytes/100 WBC (Bld) 40.5 % Normal 20.5-60.0 [facility] Comment on above: Performed By: #### L IPA, HSTROPN, TSH, CMP #### [facility] [address] [place] [address] Dr. Juan Zamarripa MANUAL DIFF REQ NO Normal [facility] Comment on above: Performed By: #### L IPA, HSTROPN, TSH, CMP #### [facility] [address] [place] [address] Dr. Juan Zamarripa MCH (RBC) [Entitic mass] 32.3 pg Normal 26.7-34.0 [facility] Comment on above: Performed By: #### L IPA, HSTROPN, TSH, CMP #### [facility] [address] [place] [address] Dr. Juan Zamarripa MCHC (RBC) [Mass/Vol] 34.4 g/dL Normal 29.9-35.2 [facility] Comment on above: Performed By: #### L IPA, HSTROPN, TSH, CMP #### [facility] [address] [place] [address] Dr. Juan Zamarripa MCV (RBC) [Entitic vol] 93.9 fL Normal 81.0-99.0 [facility] Comment on above: Performed By: #### L IPA, HSTROPN, TSH, CMP #### [facility] [address] [place] [address] Dr. Juan Zamarripa MONO # 0.3 103/ul Normal 0.3-0.8 [facility] Comment on above: Performed By: #### L IPA, HSTROPN, TSH, CMP #### [facility] [address] [place] [address] Dr. Juan Zamarripa Monocytes/100 WBC (Bld) 4.2 % Normal 1.7-12.0 [facility] Comment on above: Performed By: #### L IPA, HSTROPN, TSH, CMP #### [facility] [address] [place] [address] Dr. Juan Zamarripa NEUT # 4.0 103/ul Normal 1.4-6.5 [facility] Comment on above: Performed By: #### L IPA, HSTROPN, TSH, CMP #### [facility] [address] [place] [address] Dr. Juan Zamarripa Neutrophils/100 WBC (Bld) 52.7 % Normal 43.0-75.0 [facility] Comment on above: Performed By: #### L IPA, HSTROPN, TSH, CMP #### [facility] [address] [place] [address] Dr. Juan Zamarripa Platelet mean volume (Bld) [Entitic vol] 9.7 fL Normal 9.5-13.5 [facility] Comment on above: Performed By: #### L IPA, HSTROPN, TSH, CMP #### [facility] [address] [place] [address] Dr. Juan Zamarripa PLT 164 103/ul Normal 150-450 [facility] Comment on above: Performed By: #### L IPA, HSTROPN, TSH, CMP #### [facility] [address] [address] [address] Juan Zamarripa RBC 4.24 106/ul Normal 4.20-5.40 [facility] Comment on above: Performed By: #### L IPA, HSTROPN, TSH, CMP #### [facility] [address] [address] [address] Juan Zamarripa WBC 7.6 103/ul Normal 4.0-11.0 [facility] Comment on above: Performed By: #### L IPA, HSTROPN, TSH, CMP #### [facility] [address] [place] [address] Dr. Juan Zamarripa FREE T4on 08-17-2021 Free T4 [Mass/Vol] 1.00 ng/dL Normal 0.76-1.46 [facility] Comment on above: Performed By: #### C BC #### [facility] [address] [place] [address] Dr. Juan Zamarripa GLYCOHEMOGLOBIN A1Con 2021 ADA RECOMMENDATION SEE BELOW Normal [facility] Comment on above: Result Comment: ADA RECOMMENDED LIMIT 4.0 - 6.0 ADA THERAPEUTIC TARGET < 7.0 ACTION SUGGESTED > 7.0 Performed By: #### A 1C #### [facility] [address] [place] [address] Dr. Juan Zamarripa Glucose [Mass/Vol] 140 mg/dL Normal [facility] Comment on above: Performed By: #### A 1C #### [facility] [address] [place] [address] Dr. Juan Zamarripa HbA1c (Bld) [Mass fraction] 6.5 % Critically high 4.5-6.2 [facility] Comment on above: Performed By: #### A 1C #### [facility] [address] [place] [address] Dr. Juan Zamarripa LIPID PROFILEon 08-17-2021 CHOL-HDL RATIO NORM SEE BELOW Normal [facility] Comment on above: Result Comment: 3.3 - 4.4 LOW RISK 4.4 - 7.1 AVERAGE RISK 7.1 - 11.0 MODERATE RISK >11.0 HIGH RISK Performed By: #### L IPA, HSTROPN, TSH, CMP #### [facility] [address] [address] [address] Juan Zamarripa Cholesterol [Mass/Vol] 115 mg/dL Normal <=200 [facility] Comment on above: Performed By: #### L IPA, HSTROPN, TSH, CMP #### [facility] [address] [address] [address] Juan Zamarripa Cholesterol in HDL [Mass/Vol] 40 mg/dL Normal 40-60 [facility] Comment on above: Performed By: #### L IPA, HSTROPN, TSH, CMP #### [facility] [address] [place] [address] Dr. Juan Zamarripa Cholesterol in LDL [Mass/Vol] 53.6 mg/dL Normal [facility] Comment on above: Performed By: #### L IPA, HSTROPN, TSH, CMP #### [facility] [address] [place] [address] Dr. Juan Zamarripa Cholesterol.total/Amanda sterol in HDL [Mass ratio] 2.9 {ratio} Normal [facility] Comment on above: Performed By: #### L IPA, HSTROPN, TSH, CMP #### [facility] [address] [address] [address] Juan Zamarripa HDL NORMAL > or = 60 mg/dl - LO W CARDIOVASCULAR RISK <40 mg/dl - HIGH CARDIOVASCULAR RISK Normal [facility] Comment on above: Performed By: #### L IPA, HSTROPN, TSH, CMP #### [facility] [address] [address] [address] Juan Zamarripa LDL CALC NORMAL SEE BELOW Normal [facility] Comment on above: Result Comment: <100 mg/dl OPTIMAL 100 - 129 mg/dl NEAR OR ABOVE OPTIMAL 130 - 159 mg/dl BORDERLINE HIGH 160 - 189 mg/dl HIGH >190 mg/dl VERY HIGH Performed By: #### L IPA, HSTROPN, TSH, CMP #### [facility] [address] [address] [address] Juan Zamarripa Triglyceride [Mass/Vol] 107 mg/dL Normal <=150 T [facility] Comment on above: Performed By: #### L IPA, HSTROPN, TSH, CMP #### [facility] [address] [address] [address] Juan Zamarripa VLDL CALC 21.4 mg/dL Normal [facility] Comment on above: Performed By: #### L IPA, HSTROPN, TSH, CMP #### [facility] [address] [address] [address] Juan Zamarripa PROF 14(COMP METB)on 022 Albumin [Mass/Vol] 4.1 g/dL Normal 3.4-5.0 [facility] Comment on above: Performed By: #### L IPA, HSTROPN, TSH, CMP #### [facility] [address] [place] [address] Dr. Juan Zamarripa Albumin/Globulin [Mass ratio] 1.1 {ratio} Normal [facility] Comment on above: Performed By: #### L IPA, HSTROPN, TSH, CMP #### [facility] [address] [place] [address] Dr. Juan Zamarripa ALP [Catalytic activity/Vol] 94 U/L Normal 46-116 [facility] Comment on above: Performed By: #### L IPA, HSTROPN, TSH, CMP #### [facility] [address] [address] [address] Juan Zamarripa ALT [Catalytic activity/Vol] 61 U/L Critically high 14-59 [facility] Comment on above: Performed By: #### L IPA, HSTROPN, TSH, CMP #### [facility] [address] [address] [address] Juan Zamarripa Anion gap [Moles/Vol] 16.5 mmol/L Normal [facility] Comment on above: Performed By: #### L IPA, HSTROPN, TSH, CMP #### [facility] [address] [address] [address] Juan Zamarripa AST [Catalytic activity/Vol] 24 U/L Normal 15-37 [facility] Comment on above: Performed By: #### L IPA, HSTROPN, TSH, CMP #### [facility] [address] [place] [address] Dr. Juan Zamarripa Bilirubin [Mass/Vol] 0.7 mg/dL Normal 0.2-1.0 [facility] Comment on above: Performed By: #### L IPA, HSTROPN, TSH, CMP #### [facility] [address] [address] [address] Juan Zamarripa Calcium [Mass/Vol] 9.1 mg/dL Normal 8.5-10.1 [facility] Comment on above: Performed By: #### L IPA, HSTROPN, TSH, CMP #### [facility] [address] [place] [address] Dr. Juan Zamarripa Chloride [Moles/Vol] 103 mmol/L Normal 98-107 [facility] Comment on above: Performed By: #### L IPA, HSTROPN, TSH, CMP #### [facility] [address] [place] [address] Dr. Juan Zamarripa CO2 [Moles/Vol] 25.4 mmol/L Normal 21.0-32.0 [facility] Comment on above: Performed By: #### L IPA, HSTROPN, TSH, CMP #### [facility] [address] [place] [address] Dr. Juan Zamarripa Creatinine [Mass/Vol] 0.87 mg/dL Normal 0.55-1.02 [facility] Comment on above: Performed By: #### L IPA, HSTROPN, TSH, CMP #### [facility] [address] [place] [address] Dr. Juan Zamarripa EGFR-AF GERMAN >60 Normal >=60 [facility] Comment on above: Performed By: #### L IPA, HSTROPN, TSH, CMP #### [facility] [address] [place] [address] Dr. Juan Zamarripa EGFR-NON AF GERMAN >60 Normal >=60 [facility] Comment on above: Performed By: #### L IPA, HSTROPN, TSH, CMP #### [facility] [address] [address] [address] Juan Zamarripa Globulin (S) [Mass/Vol] 3.9 g/dL Normal [facility] Comment on above: Performed By: #### L IPA, HSTROPN, TSH, CMP #### [facility] [address] [address] [address] Juan Zamarripa Glucose [Mass/Vol] 157 mg/dL Critically high 74-106 [facility] Comment on above: Performed By: #### L IPA, HSTROPN, TSH, CMP #### [facility] [address] [place] [address] Dr. Juan Zamarripa Potassium [Moles/Vol] 4.4 mmol/L Normal 3.5-5.1 [facility] Comment on above: Performed By: #### L IPA, HSTROPN, TSH, CMP #### [facility] [address] [address] [address] Juan Zamarripa Protein [Mass/Vol] 8.0 g/dL Normal 6.4-8.2 [facility] Comment on above: Performed By: #### L IPA, HSTROPN, TSH, CMP #### [facility] [address] [address] [address] Juan Zamarripa Sodium [Moles/Vol] 141 mmol/L Normal 136-145 [facility] Comment on above: Performed By: #### L IPA, HSTROPN, TSH, CMP #### [facility] [address] [address] [address] Juan Zamarripa Urea nitrogen [Mass/Vol] 21.0 mg/dL Critically high 7.0-18.0 [facility] Comment on above: Performed By: #### L IPA, HSTROPN, TSH, CMP #### [facility] [address] [address] [address] Juan Zamarripa Urea nitrogen/Creatinine [Mass ratio] 24.1 mg/mg Normal [facility] Comment on above: Performed By: #### L IPA, HSTROPN, TSH, CMP #### [facility] [address] [address] [address] Juan Zamarripa TSHon 08-17-2021 TSH 1.503 uIU/mL Normal 0.358-3.74 0 [facility] Comment on above: Performed By: #### L IPA, HSTROPN, TSH, CMP #### [facility] [address] [address] [address] Juan Zamarripa TSH RANGE SEE BELOW Normal [facility] Comment on above: Result Comment: <0.3 4 UIU/ml HYPERTHYROID 0.34-5.60 UIU/ml EUTHYROID >5.60 UIU/ml HYPOTHYROID Performed By: #### L IPA, HSTROPN, TSH, CMP #### [facility] [address] [address] [address] Juan Zamarripa CNPNiki 08-11-2021 CNPN Telephone (NCCAP) -------- IVELISSE GEE ([id number]) 1950 F Date Time Provider Department 08/11/21 MEHRDAD AGUILAR During your visit today, we recorded the following information about you: Marta Cuellar Pss 08/11/2021 12:14 PM Signed Called patient to [...] on 08/11/21 Normal [facility] [id number] QUANTITA TIONon 10-13-2020 [id number] (AAT) PHENOTYPE SEE NOTE Normal [facility] Comment on above: Order Comment: FASTI NG:YES FASTING: YES Result Comment: THIS PATIENT'S [id number] PHENOTYPE IS PI*MM. 90% of normal individuals have the MM phenotype, with normal quantitative AAT levels. Many phenotypic patterns have been described, including deficiency states with F, S, Z, or other alleles. As a general estimation, compared to M allele of 100% of normal U-7-Mvlbceocmww protein, the S allele produces approximately 60% and the Z allele 20%. For example, an MS phenotype would have about 80% of normal B-9-Ewunpcjulgy protein level, a 50% contribution from the M allele and 30% from the S allele. A ZZ phenotype would have about 20% of normal levels, a 10% contribution from each Z gene. The F allele has normal U-5-Jewylafdhud levels, but the kinetics of elastase inhibition [...] phenotype. Performed By: #### 2 63, 457, 92324, 7573, 508, 498, 326, 8472, 496, 249, 90606, 259 #### [facility] [address] [address] Gifts Officer: Kush Hines MD #### [phone] #### [facility], [address] [place], [place] [address] Gifts Officer: Susan Sheikh MD,PhD,JAY #### [phone] #### [facility]/[address] [place], [place] Gifts Officer: Parrish Gloria M.D.,PhD [id number] QN 170 mg/dL Normal 83-199 [facility] Comment on above: Order Comment: FASTI NG:YES FASTING: YES Performed By: #### 2 63, 457, 72529, 7573, 508, 498, 326, 8472, 496, 249, 12608, 259 #### [facility] [address] [address] Gifts Officer: Kush Hines MD #### [phone] #### [facility], [address] [phone] Gifts Officer: Susan Sheikh MD,PhD,JAY #### [phone] #### [facility]/[place] [id number] [facility] [place], [place] Gifts Officer: Parrish Gloria M.D.,PhD TL SCREEN, IFA, W/REFL [...] AC-0: Negative International Consensus on TL Patterns (https://doi.org/10.1515/maaq-9770-1870) For additional information, please refer to http://education.[employer]/faq/XIT626 (This link is being provided for informational/ educational purposes only.) Performed By: #### 2 63, 457, 24347, 7573, 508, 498, 326, 8472, 496, 249, 72093, 259 #### [facility] [address], [address] [place] [address] Gifts Officer: Kush Hines MD #### [phone] #### [facility]/[place] [address] [address] Gifts Officer: Susan Sheikh MD,PhD,JAY #### [phone] #### [facility] [facility] [address] [facility] [place], [place] Gifts Officer: Parrish Gloria M.D.,PhD CELIAC DISEASE COMPREHENSIVE PANELon 10-13-2020 IMMUNOGLOBULIN A 185 mg/dL Normal 70-320 [facility] Comment on above: Performed By: #### 2 63, 457, 14767, 7573, 508, 498, 326, 8472, 496, 249, 94011, 259 #### [facility] [address], [address] [place] [address] Gifts Officer: Kush Hines MD #### [phone] #### [facility], [address] [place] [address] Gifts Officer: Susan Sheikh MD,PhD,JAY #### [phone] #### [facility] [address] [facility] [place], [place] Gifts Officer: Parrish Gloria M.D.,PhD INTERPRETATION see note Normal [...] DQ8. Performed By: #### 2 63, 457, 80474, 7573, 508, 498, 326, 8472, 496, 249, 57786, 259 #### [facility] [address], [address] [place] [address] Gifts Officer: Kush Hines MD #### [phone] #### [facility], [address] [place] [address] Gifts Officer: Susan Sheikh MD,PhD,JAY #### [phone] #### [facility] [address] [facility] [place] Gifts Officer: Parrish Gloria M.D.,PhD TISSUE TRANSGLUTAMINASE AB, IGA 2 U/mL Normal <4 [facility] Comment on above: Result Comment: Value Interpretation <4 U/mL: No Antibody Detected >or=4 U/mL: Antibody Detected Performed By: #### 2 63, 457, 07013, 7573, 508, 498, 326, 8472, 496, 249, 66245, 259 #### [facility] [address] [facility], [address] [place] [address] Gifts Officer: Kush Hines MD #### [phone] #### [facility], [address] [place] Gifts Officer: Susan Sheikh MD,PhD,JAY #### [phone] #### [facility]/[address] [facility] [place], [place] Gifts Officer: Parrish Gloria M.D.,PhD CERULOPLASMINon 10-13-2020 CERULOPLASMIN 31 mg/dL Normal 18-53 [facility] Comment on above: Performed By: #### 2 63, 457, 34703, 7573, 508, 498, 326, 8472, 496, 249, 77498, 259 #### [facility] [address] , [address] [place] [address] Gifts Officer: Kush Hines MD #### [phone] #### [facility], [address] [place], [place] Gifts Officer: Susan Sheikh MD,PhD,JAY #### [phone], [phone] #### [facility]/[address] [place], [place] Gifts Officer: Parrish Gloria M.D.,PhD FERRITINon 10-13-2020 Ferritin [Mass/Vol] 70 ng/mL Normal 16-288 [facility] Comment on above: Performed By: #### 2 63, 457, 40452, 7573, 508, 498, 326, 8472, 496, 249, 35818, 259 #### [facility] [address], [address] [place], [place] [id number] Gifts Officer: Kush Hines MD #### [phone] #### [facility], [address] [place], [place] Gifts Officer: Susan Sheikh MD,PhD,JAY #### [phone], [phone] #### [facility] [address] [facility] [place] Gifts Officer: Parrish Gloria M.D.,PhD HEMOGLOBIN A1con 10-13-2020 HEMOGLOBIN [...] children. Performed By: #### 2 63, 457, 09406, 7573, 508, 498, 326, 8472, 496, 249, 38027, 259 #### [facility] [address] [address] Gifts Officer: Kush Hines MD #### [phone] #### [facility]/[address] [place] [address] Gifts Officer: Susan Sheikh MD,PhD,JAY #### [phone], [phone] #### [facility] [address] [facility] [place] Gifts Officer: Parrish Gloria M.D.,PhD HEPATITIS A AB, TOTALon HEPATITIS A AB, TOTAL Reactive Abnormal NON-RE ACTI VE [facility] Comment on above: Result Comment: For additional information, please refer to http://education.[employer]/faq/KSH729 (This link is being provided for informational/ educational purposes only.) Performed By: #### 2 63, 457, 28464, 7573, 508, 498, 326, 8472, 496, 249, 33491, 259 #### [facility] [address] [address] Gifts Officer: Kush Hines MD #### [phone] #### [facility], [address] [place] [address] Gifts Officer: Susan Sheikh MD,PhD,JAY #### [phone], [phone] #### [facility]/[address] [place], [place] Gifts Officer: Parrish Gloria M.D.,PhD HEPATITIS B CORE AB TOTAL W/ REFL IGMon 10-13-2020 HEPATITIS B CORE AB TOTAL Non-Reactive Normal NON-REACTI VE [facility] Comment on above: Performed By: #### 2 63, 457, 71049, 7573, 508, 498, 326, 8472, 496, 249, 23597, 259 #### [facility] [address], [address] [place] [address] Gifts Officer: Kush Hines MD #### [phone] #### [facility], [address] [place] [address] Gifts Officer: Susan Sheikh MD,PhD,JAY #### [phone], [phone] #### [facility]/[address] [place], [place] Gifts Officer: Parrish Gloria M.D.,PhD HEPATITIS B SURFACE ANTIBODY QLon 10-13-2020 HEPATITIS B SURFACE ANTIBODY QL Non-Reactive Normal NON-REACTI VE [facility] Comment on above: Performed By: #### 2 63, 457, 98141, 7573, 508, 498, 326, 8472, 496, 249, 69949, 259 #### [facility] [address] [address] [place] , [address] [place] [address] Gifts Officer: Kush Hines MD #### [phone] #### [facility], [address] [place] Gifts Officer: Susan Sheikh MD,PhD,JAY #### [phone], [phone] #### [facility]/[address] [place], [place] Gifts Officer: Parrish Gloria M.D.,PhD HEPATITIS B SURFACE ANTIGEN W/REFL CONFIRMon 10-13-2020 HEPATITIS B SURFACE ANTIGEN Non-Reactive Normal NON-REACTI VE [facility] Comment on above: Performed By: #### 2 63, 457, 84481, 7573, 508, 498, 326, 8472, 496, 249, 54630, 259 #### [facility] [address], [address] [place] [address] Gifts Officer: Kush Hines MD #### [phone] #### [facility], [address] [place] Gifts Officer: Susan Sheikh MD,PhD,JAY #### [phone], [phone] #### [facility]/[address] [place], [place] Gifts Officer: Parrish Gloria M.D.,PhD HEPATITIS C AB W/REFL TO HCV RNA, QN, PCRon 10-13-2020 HEPATITIS C ANTIBODY Non-Reactive Normal NON-CHARMAINE CTI VE [facility] Comment on above: Performed By: #### 2 63, 457, 22419, 7573, 508, 498, 326, 8472, 496, 249, 84237, 259 #### [facility] [address], [address] [place], [place] [phone] Gifts Officer: Kush Hines MD #### [phone] #### [facility], [address] [place] [address] Gifts Officer: Susan Sheikh MD,PhD,JAY #### [phone], [phone] #### [facility] [address] [facility] [place] Gifts Officer: Parrish Gloria M.D.,PhD INDEX 0.02 Normal <1.00 [facility] Comment on above: Result Comment: HCV antibody was non-reactive. There is no laboratory evidence of HCV infection. In most cases, no further action is required. However, if recent HCV exposure is suspected, a test for HCV RNA (test code 26257) is suggested. For additional information please refer to http://education.[employer]/faq/JIO02j3 (This link is being provided for informational/ educational purposes only.) Performed By: #### 2 63, 457, 67183, 7573, 508, 498, 326, 8472, 496, 249, 14436, 259 #### [facility] [address] [address] Gifts Officer: Kush Hines MD #### [phone] #### [facility] [address] [place] [address] Gifts Officer: Susan Sheikh MD,PhD,JAY #### [phone], [phone] #### [facility] [address] [facility] [place] Gifts Officer: Parrish Gloria M.D.,PhD IRON AND TOTAL IRON BINDING CAPACITYon 10-13-2020 % SATURATION 19 % (calc) Normal 16-45 [facility] Comment on above: Performed By: #### 2 63, 457, 58280, 7573, 508, 498, 326, 8472, 496, 249, 49516, 259 #### [facility] [address], [address] [place], [place] [address] Gifts Officer: Kush Hines MD #### [phone] #### [facility], [address] [place] Gifts Officer: Susan Sheikh MD,PhD,JAY #### [phone], [phone] #### [facility]/[address] [place] Gifts Officer: Parrish Gloria M.D.,PhD IRON BINDING CAPACITY 372 mcg/dL (calc) Normal 250-450 [facility] Comment on above: Performed By: #### 2 63, 457, 82782, 7573, 508, 498, 326, 8472, 496, 249, 21129, 259 #### [facility] [address] [facility], [address] [place], [place] [phone] Gifts Officer: Kush Hines MD #### [phone] #### [facility], [address] [place], [place] Gifts Officer: Susan Sheikh MD,PhD,JAY #### [phone], [phone] #### [facility] [address] [facility] [place] Gifts Officer: Parrish Gloria M.D.,PhD IRON, TOTAL 70 mcg/dL Normal 45-160 [facility] Comment on above: Performed By: #### 2 63, 457, 14682, 7573, 508, 498, 326, 8472, 496, 249, 38578, 259 #### [facility] [address], [address] [place], [place] [address] Gifts Officer: Kush Hines MD #### [phone] #### [facility], [address] [place] Gifts Officer: Susan Sheikh MD,PhD,JAY #### [phone], [phone] #### [facility]/[address] [facility] [place] Gifts Officer: Parrish Gloria M.D.,PhD LIVER KIDNEY MICROSOME (LKM- [...] infection. Performed By: #### 2 63, 457, 81493, 7573, 508, 498, 326, 8472, 496, 249, 27171, 259 #### [facility] [address], [address] [place] [address] Gifts Officer: Kush Hines MD #### [phone] #### [facility] [address] [place] [address] Gifts Officer: Susan Sehikh MD,PhD,JAY #### [phone], [phone] #### [facility] [address] [facility] [place] [address] Gifts Officer: Parrish Gloria M.D.,PhD MITOCHONDRIAL ANTIBODY W/REF L TITERon 10-13-2020 MITOCHONDRIAL AB SCREEN Negative Normal NEGATIVE Q [facility] Comment on above: Performed By: #### 2 63, 457, 79630, 7573, 508, 498, 326, 8472, 496, 249, 40215, 259 #### [facility] [address], [address] [place] [address] Gifts Officer: Kush Hines MD #### [phone] #### [facility], [address] [place] [address] Gifts Officer: Susan Sheikh MD,PhD,JAY #### [phone], [phone] #### [facility]/[address] [address] [facility] [place] Gifts Officer: Parrish Gloria M.D.,PhD SMOOTH MUSCLE AB W/REFL TITE Butch 10-13-2020 SMOOTH MUSCLE AB SCREEN Negative Normal NEGATIVE Q [facility] Comment on above: Performed By: #### 2 63, 457, 43754, 7573, 508, 498, 326, 8472, 496, 249, 31811, 259 #### [facility] [address] [place] [facility], [address] [place], [place] [address] Gifts Officer: Kush Hines MD #### [phone] #### [facility], [address] [place], [place] Gifts Officer: Susan Sheikh MD,PhD,JAY #### [phone], [phone] #### [facility]/[address] [address] [facility] [place] Gifts Officer: Parrish Gloria M.D.,PhD TSH W/REFLEX TO FT4on 2020 TSH W/REFLEX TO FT4 3.10 mIU/L Normal 0.40-4.50 [facility] Comment on above: Performed By: #### 2 63, 457, 10280, 7573, 508, 498, 326, 8472, 496, 249, 53493, 259 #### [facility] [address] , [address] [place], [place] [address] Gifts Officer: Kush Hines MD #### [phone] #### [facility], [address] [place], [place] Gifts Officer: Susan Sheikh MD,PhD,JAY #### [phone], [phone] #### [facility]/[address] [address] [facility] [place] [address] Gifts Officer: Parrish Gloria M.D.,PhD CNOVSPon 09-30-2020 CNOVSP Visit (SP) Office (HEMASA) -------- IVELISSE GEE ([id number]) 1950 F Date Time Provider Department 09/30/20 1:30 PM MEHRDAD AGUILAR During your visit today, we recorded the following information about you: Temperature Pulse Respiration Blood pressure 97.2 degrees 71/minute 18/minute 121/54 Weight Height 73.6 kg 1.57 m Mehrdad Aguilar MD 10/02/2020 5:36 PM Signed PATIENT NAME: Ivelisse Gee DATE: 09/30/2020 PRIMARY CARE PHYSICIAN: Carmen Conley MD OTHER PHYSICIANS: Dr. Wahl ([place], [place]), Dr. Magdaleno Castillo ([facility]) Portions of this encounter note [...] 2020 Albumin Urine Random <12.0 Normal [facility] Comment on above: Performed By: #### C MP, INSLAB, LIPB, CPEPT, GADCAB, B12, VITD, UACR ####[address] [phone] Albumin/Creat Ratio Not calculated Normal <30 [facility] Comment on above: Performed By: #### C MP, INSLAB, LIPB, CPEPT, GADCAB, B12, VITD, UACR ####[address] [phone] Creatinine,Urine,Ran 53.8 mg/dL Normal 20-300 [facility] Comment on above: Performed By: #### C MP, INSLAB, LIPB, CPEPT, GADCAB, B12, VITD, UACR ####[address] [place], [place] [phone] C-Peptideon 09-27-2020 C-Peptide 1.8 ng/mL Normal 0.8-3.9 [facility] Comment on above: Performed By: #### C MP, INSLAB, LIPB, CPEPT, GADCAB, B12, VITD, UACR ####[address] [place], [place] [phone] CBC and Differentialon 09-27 Abs Baso 0.03 k/uL Normal <0.11 [facility] Abs Lamb 0.33 k/uL Normal <0.87 [facility] Abs Neut 4.29 k/uL Normal 1.45-7.50 [facility] Absolute nRBC <0.01 Normal <0.01 [facility] Basophils/100 WBC (Bld) 0.4 % Normal [facility] DTYPE Auto Diff Normal [facility] [...] MCHC (RBC) [Mass/Vol] 34.9 g/dL Normal 30.5-36.0 [facility] MCV (RBC) [Entitic vol] 91.4 fL Normal 80.0-100.0 [facility] Monocytes/100 WBC (Bld) 4.0 % Normal [facility] Neutrophils/100 WBC (Bld) 52.5 % Normal [facility] NRBCs 0.0 /100 WBC Normal 0 [facility] Platelet mean volume (Bld) [Entitic vol] 9.6 fL Normal 9.0-12.7 [facility] Platelets (Bld) [#/Vol] 164 10*3/uL Normal 150-400 [facility] RBC (Bld) [#/Vol] 4.08 10*6/uL Normal 3.90-5.20 [facility] WBC (Bld) [#/Vol] 8.18 10*3/uL Normal 3.70-11.00 [facility] Comp Metabolic Panelon 09-27 Albumin [Mass/Vol] 4.4 g/dL Normal 3.9-4.9 [facility] Comment on above: Performed By: #### C MP, INSLAB, LIPB, CPEPT, GADCAB, B12, VITD, UACR ####[place] [address] [place], [place] [phone] ALP [Catalytic activity/Vol] 88 U/L Normal 34-123 [facility] Comment on above: Performed By: #### C MP, INSLAB, LIPB, CPEPT, GADCAB, B12, VITD, UACR ####[place] [address] [place], [place] [phone] ALT [Catalytic activity/Vol] 63 U/L High 7-38 [facility] Comment on above: Performed By: #### C MP, INSLAB, LIPB, CPEPT, GADCAB, B12, VITD, UACR ####[place] [address] [place], [place] [phone] Anion gap [Moles/Vol] 12 mmol/L Normal 9-18 [facility] Comment on above: Performed By: #### C MP, INSLAB, LIPB, CPEPT, GADCAB, B12, VITD, UACR ####[place] [address] [place], [place] [phone] AST [Catalytic activity/Vol] 42 U/L High 13-35 [facility] Comment on above: Performed By: #### C MP, INSLAB, LIPB, CPEPT, GADCAB, B12, VITD, UACR ####[place] [address] [address], [place] [phone] Bilirubin [Mass/Vol] 0.6 mg/dL Normal 0.2-1.3 [facility] Comment on above: Performed By: #### C MP, INSLAB, LIPB, CPEPT, GADCAB, B12, VITD, UACR ####[facility] [place], [place] [phone] Calcium [Mass/Vol] 9.2 mg/dL Normal 8.5-10.2 [facility] Comment on above: Performed By: #### C MP, INSLAB, LIPB, CPEPT, GADCAB, B12, VITD, UACR ####[place] [phone] Chloride [Moles/Vol] 104 mmol/L Normal 97-105 [facility] Comment on above: Performed By: #### C MP, INSLAB, LIPB, CPEPT, GADCAB, B12, VITD, UACR ####[facility] [place] [phone] Creatinine [Mass/Vol] 0.68 mg/dL Normal 0.58-0.96 [facility] Comment on above: Performed By: #### C MP, INSLAB, LIPB, CPEPT, GADCAB, B12, VITD, UACR ####[facility] [place], [place] [phone] Glucose [Mass/Vol] 152 mg/dL High 74-99 [facility] Comment on above: Result Comment: The [place] [employer] (ADA) provides guidance for cutoff [...] Standards of Medical Care in Diabetes 2016, [place] [employer]. Diabetes Care. 2016.39(Suppl 1). Performed By: #### C MP, INSLAB, LIPB, CPEPT, GADCAB, B12, VITD, UACR ####[facility] [place], [place] [phone] Potassium [Moles/Vol] 4.3 mmol/L Normal 3.7-5.1 [facility] Comment on above: Performed By: #### C MP, INSLAB, LIPB, CPEPT, GADCAB, B12, VITD, UACR ####[place] [address] [place] [place], [place] [phone] Sodium [Moles/Vol] 140 mmol/L Normal 136-144 [facility] Comment on above: Performed By: #### C MP, INSLAB, LIPB, CPEPT, GADCAB, B12, VITD, UACR ####[facility] [place] [place], [place] [phone] Urea nitrogen [Mass/Vol] 14 mg/dL Normal 7-21 [facility] Comment on above: Performed By: #### C MP, INSLAB, LIPB, CPEPT, GADCAB, B12, VITD, UACR ####[facility] [place], [place] [phone] Albumin [Mass/Vol] 4.5 g/dL Normal 3.9-4.9 [facility] ALP [Catalytic activity/Vol] 83 U/L Normal 34-123 [facility] ALT [Catalytic activity/Vol] 58 U/L High 7-38 [facility] Anion gap [Moles/Vol] 11 mmol/L Normal 9-18 [facility] AST [Catalytic activity/Vol] 34 U/L Normal 13-35 [facility] Bilirubin [Mass/Vol] 0.7 mg/dL Normal 0.2-1.3 [facility] Calcium [Mass/Vol] 9.5 mg/dL Normal 8.5-10.2 [facility] Chloride [Moles/Vol] 103 mmol/L Normal 97-105 [facility] CO2 [Moles/Vol] 24 mmol/L Normal 22-30 [facility] Comment on above: Performed By: #### C MP, INSLAB, LIPB, CPEPT, GADCAB, B12, VITD, UACR ####[facility] [place], [place] [phone] Creatinine [Mass/Vol] 0.67 mg/dL Normal 0.58-0.96 [facility] eGFR- Amer. >60 Normal [facility] Comment on above: Performed By: #### C MP, INSLAB, LIPB, CPEPT, GADCAB, B12, VITD, UACR ####[facility] [place], [place] [phone] eGFR-All Other Races >60 Normal [facility] Comment on above: Result Comment: eGFR [...] LIPB, CPEPT, GADCAB, B12, VITD, UACR ####[facility] [address] [place], [place] [phone] Glucose [Mass/Vol] 161 mg/dL High 74-99 [facility] Comment on above: Result Comment: The [place] Diabetes Association (ADA) provides guidance for cutoff [...] Standards of Medical Care in Diabetes 2016, [place] [employer]. Diabetes Care. 2016.39(Suppl 1). Potassium [Moles/Vol] 4.1 mmol/L Normal 3.7-5.1 [facility] Protein [Mass/Vol] 7.2 g/dL Normal 6.3-8.0 [facility] Comment on above: Performed By: #### C MP, INSLAB, LIPB, CPEPT, GADCAB, B12, VITD, UACR ####[address] [phone] Sodium [Moles/Vol] 138 mmol/L Normal 136-144 [facility] Urea nitrogen [Mass/Vol] 13 mg/dL Normal 7-21 [facility] Glutamic Ac Decar Abon 09-27 Glutam Ac Dec Ab Ql Negative Normal Negative [facility] Comment on above: Performed By: #### C MP, INSLAB, LIPB, CPEPT, GADCAB, B12, VITD, UACR ####[place] [address] [place], [place] [phone] Glutamic Ac Decar Ab <5.0 Normal <5.1 [facility] Comment on above: Performed By: #### C MP, INSLAB, LIPB, CPEPT, GADCAB, B12, VITD, UACR ####[place] [id number] [place], [place] [phone] Insulin Autoantibodyon 09-27 Insulin Ab Ql Negative Normal Negative [facility] Comment on above: Performed By: #### C MP, INSLAB, LIPB, CPEPT, GADCAB, B12, VITD, UACR ####[place] [address] [place], [place] [phone] Insulin Antibody <0.4 Normal <0.4 [facility] Comment on above: Performed By: #### C MP, INSLAB, LIPB, CPEPT, GADCAB, B12, VITD, UACR ####[id number] [place], [place] [phone] Lipid Panel, [place] 09-27- 021 Cholesterol [Mass/Vol] 110 mg/dL Normal <200 [facility] Comment on above: Result Comment: <200 mg/dL, Desirable 200-239 mg/dL, Borderline high >239 mg/dL, High Performed By: #### C MP, INSLAB, LIPB, CPEPT, GADCAB, B12, VITD, UACR ####[place] [place] [place], [place] [phone] Cholesterol in HDL [Mass/Vol] 37 mg/dL Low >39 [facility] Comment on above: Result Comment: 40-5 9 mg/dL, Acceptable >59 mg/dL, High: Negative risk factor for coronary heart disease <40 mg/dL, Low: Positive risk factor for coronary heart disease Performed By: #### C MP, INSLAB, LIPB, CPEPT, GADCAB, B12, VITD, UACR ####[place] [place] [place], [place] [phone] Cholesterol in LDL [Mass/Vol] 49 mg/dL Normal <100 [facility] Comment on above: Result Comment: <100 mg/dL, Optimal 100-129 mg/dL, Near optimal/above optimal 130-159 mg/dL, Borderline high 160-189 mg/dL, High >189 mg/dL, Very high Secondary prevention optimal LDL Cholesterol levels are recommended to be < 70 mg/dL Performed By: #### C MP, INSLAB, LIPB, CPEPT, GADCAB, B12, VITD, UACR ####[place] [place] [place], [place] [phone] Fasting Time 12 hrs Normal [facility] Comment on above: Performed By: #### C MP, INSLAB, LIPB, CPEPT, GADCAB, B12, VITD, UACR ####[address] [phone] LDL:HDL Ratio 1.32 Normal <2.54 [facility] Comment on above: Result Comment: Mod[place] dao: 1. National Cholesterol Education Program ATP III Guideline At-A-Glance Quick Desk Reference: National Heart, Lung, and Blood Isabella. National Institutes of Health. 2001: NIH Publication No. 01-3305. 2. An International Atherosclerosis Society position paper: global recommendations for the management of dyslipidemia: executive summary, Atherosclerosis. 2014: 232(2):410-413. Performed By: #### C MP, INSLAB, LIPB, CPEPT, GADCAB, B12, VITD, UACR ####[address] [phone] Non HDL Cholesterol 73 mg/dL Normal <130 [facility] Comment on above: Result Comment: <130 mg/dL, Optimal 130-159 mg/dL, Near optimal/above optimal 160-189 mg/dL, Borderline high 190-219 mg/dL, High >219 mg/dL, Very high Secondary prevention optimal non HDL Cholesterol levels are recommended to be < 100 mg/dL Performed By: #### C MP, INSLAB, LIPB, CPEPT, GADCAB, B12, VITD, UACR ####[address] [phone] TC:HDL Ratio 2.97 Normal <5.10 [facility] Comment on above: Performed By: #### C MP, INSLAB, LIPB, CPEPT, GADCAB, B12, VITD, UACR ####[address] [phone] Triglyceride [Mass/Vol] 121 mg/dL Normal <150 [facility] Comment on above: Result Comment: <150 mg/dL, Normal 150-199 mg/dL, Borderline high 200-499 mg/dL, High >499 mg/dL, Very high Performed By: #### C MP, INSLAB, LIPB, CPEPT, GADCAB, B12, VITD, UACR ####[facility] [place], [place] [phone] VLDL Cholesterol 24 mg/dL Normal <30 [facility] Comment on above: Performed By: #### C MP, INSLAB, LIPB, CPEPT, GADCAB, B12, VITD, UACR ####[place] [address] [place], [place] [phone] Vitamin B12on 09-27-2020 Cobalamin (Vitamin B12) [Mass/Vol] 431 pg/mL Normal 232-1245 [facility] Comment on above: Performed By: #### C MP, INSLAB, LIPB, CPEPT, GADCAB, B12, VITD, UACR ####[place] [place], [place] [phone] Vitamin D 25 Hydroxyon 09-27 Vitamin D 25 Hydroxy 47.2 ng/mL Normal 31.0-80.0 [facility] Comment on above: Result Comment: Clas sification of 25 [place] Vitamin D status: Insufficiency/Moderate Deficiency: < or = 30 ng/mL Sufficiency/Optimal Levels: 31 to 80 ng/mL Toxicity: > 100 ng/mL Test performed by chemiluminescent immunoassay. Performed By: #### C MP, INSLAB, LIPB, CPEPT, GADCAB, B12, VITD, UACR ####[facility] [place], [place] [phone] CNPNiki 09-22-2020 DAVID Telephone (JOHN) -------- IVELISSE GEE ([id number]) 1950 F Date Time Provider Department 09/22/20 AGUILAR, MEHRDAD R HEMASA During your visit today, we recorded the following information about you: Julianne Beck 09/22/2020 11:15 AM Signed Please sign pending lab orders for Saturday09/30/20. Thanks, Julianne Beck Allergies As of Date: 09/22/2020 Noted Allergy Reaction SULFA (SULFONAMIDE ANTIBIOTICS) 09/05/2016 10 - Anaphylaxis LATEX, NATURAL RUBBER 09/06/2016 16 - Unknown Comments: Only bandaids Date Reviewed: 09/22/2020 Reviewed by: Mac Perez APRN.CORRECTIONAL SUBSTANCE ABUSE COUNSELOR - Fully Assessed Reason for Visit: Lab Orders [1688] Primary Visit Diagnosis:Thrombocytopen ia (HCC) [D69.6] Order(s):CBC + DIFF [SQCBCDIF] Order #: [id number] STANDING COMP METABOLIC PANEL [SQCMP] Order #: [id number] STANDING Prescriptions as of 09/22/2020 Sig: METFORMIN [...] DATE OF EXAM: Sep 21 2020 11:45AM [facility] 0689 - MRI ABDOMEN WO/W IVCON [...] 6 months is recommended to assess the 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 stability, progression or resolution of the findings. No enhancing pancreatic mass with special attention to the head of the pancreas. 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 5 mm and 9 mm Bosniak type II hemorrhagic cysts at the midpole of the left kidney. Additional subcentimeter renal cysts. Cholecystectomy with mildly dilatation. No choledocholithiasis. Sql Server Dba: SHAHRZAD Transcribe Date/Time: Sep 21 2020 1:58P Dictated by : ANA MARÍA ARAIZA MD This examination was interpreted and the report reviewed and electronically signed by: ANA MARÍA ARAIZA MD on Sep 21 2020 10:19PM EST [id number] Normal [facility] Js 09-01-2020 CNPN Telephone (HEMASA) -------- IVELISSE GEE ([id number]) 1950 F Date Time Provider Department 09/01/20 [...] Clerical: Please schedule pt for MRI at [facility]. Thank you. BRM: Order pending, please review and sign. MONICO Louie 09/01/2020 2:24 PM Signed Called patient to inform her that she has been scheduled for MRI @ [facility] on 09/07/20 @ 8:30am. LMOV. 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 Pit Tanner (topogram) images: No additional findings. IMPRESSION: 1. [...] any questions regarding this interpretation, please call [phone]. If you are unable to reach us at the number above, please feel free to contact [facility] at [phone]. [id number] Normal [facility] Protein Electrophor.on 08-30 Albumin [Mass/Vol] 4.24 g/dL High 3.37-4.23 [facility] Comment on above: Performed By: #### S EPG ####[facility] [address] [place], [place] [phone] Alpha 1 Globulin 0.27 gm/dL Normal 0.18-0.31 [facility] Comment on above: Performed By: #### S EPG ####[facility] [address] [place], [place] [phone] Alpha 2 Globulin 0.82 gm/dL Normal 0.52-0.97 [facility] Comment on above: Performed By: #### S EPG ####[place] [address] [place], [place] [phone] Beta Globulin 1.11 gm/dL Normal 0.84-1.36 [facility] Comment on above: Performed By: #### S EPG ####[address] [phone] Gamma Globulin 1.27 gm/dL Normal 0.70-1.44 [facility] Comment on above: Performed By: #### S EPG ####[address] [phone] Interpretation SEE COMMENT Normal [facility] Comment on above: Result Comment: No d efinitive M protein is identified on protein electrophoresis. Performed By: #### S EPG ####[address] [phone] M Protein Location N/A Normal [facility] Comment on above: Performed By: #### S EPG ####[address] [phone] M Shmuel Concentratn 0.00 gm/dL Normal 0.00 [facility] Comment on above: Performed By: #### S EPG ####[address] [phone] Protein [Mass/Vol] 7.7 g/dL Normal 6.3-8.0 [facility] Comment on above: Performed By: #### S EPG ####[address] [phone] SPE Staff Review Reviewed by Audelia Cabrera MD ([id number]) [facility] Comment on above: Performed By: #### S EPG ####[address] [phone] CNPNon 08-23-2020 [facility] -------- IVELISSE GEE ([id number]) 1950 F Date Time Provider Department 08/23/20 MEHRDAD AGUILAR [facility] During your visit today, we recorded the following information about you: Adele Delong 08/23/2020 9:45 AM Signed Marta Cuellar Pss MP ? 9:12 AM Note lvm returning GI's call to call back regarding patient to schedule patient for this referral. August 19, 2020 ? ? 3:53 PM Lorri Keyes Sec routed this conversation to [facility] Clerical Pool Lorri Keyes Sec ? 3:53 PM Note Left message at Dr Magdaleno Cuello [facility]. They may ask for me. She needs to be seen for Liver cirrhosis. Please call [phone] to refer this patient if they do not call back to schedule. Tracy Gonzáles [facility] [place] 08/24/2020 10:00 AM Signed Records and referral faxed to [facility]. Marta Cuellar [facility] 08/25/2020 1:09 PM Signed Patient is [...] Encounter Status:Closed by ADELE DELONG on 09/20/20 [facility] Js 08-22-2020 CNPN Telephone (NCCAP) -------- IVELISSE GEE ([id number]) 1950 F Date Time Provider Department 08/22/20 MEHRDAD AGUILAR NCCAP During your visit today, we recorded the following information about you: Allergies As of Date: 08/22/2020 Noted Allergy Reaction SULFA (SULFONAMIDE ANTIBIOTICS) 09/05/2016 10 - Anaphylaxis LATEX, NATURAL RUBBER 09/06/2016 16 - Unknown Comments: Only bandaids Date Reviewed: 08/19/2020 Reviewed by: Carlos Brewer MA - Fully Assessed Reason for Visit: Patient Question [4747] Prescriptions as of 08/22/2020 Sig: METFORMIN ER [...] Encounter Status:Closed by MARTA GARCES on 08/22/20 [facility] CNOVSPon 08-19-2020 CNOVSP Visit (SP) Office (HEMASA) -------- IVELISSE GEE ([id number]) 1950 F Date Time Provider Department 08/19/20 11:15 AM MEHRDAD AGUILAR During your visit today, we recorded the following information about you: Temperature Pulse Respiration Blood pressure 98.2 degrees 88/minute 16/minute 130/56 Weight Height 74 kg 1.57 m Mehrdad Aguilar MD 08/20/2020 1:40 PM Signed PATIENT NAME: Ivelisse Gee DATE: 08/19/2020 PRIMARY CARE PHYSICIAN: Carmen Conley MD OTHER PHYSICIANS: Dr. Wahl (([place], [place]) HPI: This is a 70 year [...] requiring hospitalization, most recently while residing in [place] in June 2020. During her recent hospitalization labs revealed persistent thrombocytopenia with a platelet count ranging from 80-90,000. The patient is currently referred for evaluation of her abnormal CBC. Since the patient's hospitalization she started qpuw-ifn-nnommcz supplements including multivitamin. She has had no [...] not included)... Normal [facility] CNPNon 08-19-2020 CNPN Telephone (PETSAN) -------- IVELISSE GEE ([id number]) 1950 F Date Time Provider Department 08/19/20 JESSIE ACUÑA (MONICO) PETSAJoe During your visit today, we recorded the following information about you: Jessie Acuña 08/19/2020 12:27 PM Signed Please sign pending CAP CTs w/IVCON for Ivelisse Gee [id number] who was added to the schedule for [...] lymph node [R59.9] Order(s):CT ABD/PEL W IVCON [[id number]] Order #: [id number] FUTURE iv contrast (will be provided with [...] 08-19 Albumin [Mass/Vol] 4.7 g/dL Normal 3.9-4.9 [facility] ALP [Catalytic activity/Vol] 93 U/L Normal 34-123 [facility] ALT [Catalytic activity/Vol] 56 U/L High 7-38 [facility] Anion gap [Moles/Vol] 12 mmol/L Normal 9-18 [facility] AST [Catalytic activity/Vol] 40 U/L High 13-35 [facility] Bilirubin [Mass/Vol] 0.9 mg/dL Normal 0.2-1.3 [facility] Calcium [Mass/Vol] 9.8 mg/dL Normal 8.5-10.2 [facility] Chloride [Moles/Vol] 102 mmol/L Normal 97-105 [facility] CO2 [Moles/Vol] 22 mmol/L Normal 22-30 [facility] Creatinine [Mass/Vol] 0.66 mg/dL Normal 0.58-0.96 [facility] eGFR- Amer. >60 Normal [facility] eGFR-All Other Races >60 Normal [facility] Comment on above: Result Comment: eGFR [...] GFR. Glucose [Mass/Vol] 258 mg/dL High 74-99 [facility] Comment on above: Result Comment: The [place] Diabetes Association (ADA) provides guidance for cutoff [...] Standards of Medical Care in Diabetes 2016, [place] Diabetes Association. Diabetes Care. 2016.39(Suppl 1). Potassium [Moles/Vol] 4.3 mmol/L Normal 3.7-5.1 [facility] Protein [Mass/Vol] 8.0 g/dL Normal 6.3-8.0 [facility] Sodium [Moles/Vol] 136 mmol/L Normal 136-144 [facility] Urea nitrogen [Mass/Vol] 13 mg/dL Normal 7-21 [facility] Ferritinon 08-19-2020 Ferritin [Mass/Vol] 184.0 ng/mL Normal 14.7-205.1 [facility] Comment on above: Performed By: #### F ERR, IRON ####[address] [phone] Iron and TIBCon 08-19-2020 Iron [Mass/Vol] 116 ug/dL Normal 41-186 [facility] Comment on above: Performed By: #### F ERR, IRON ####[facility] [place], [place] [phone] TIBC 357 ug/dL Normal 232-386 [facility] Comment on above: Performed By: #### F ERR, IRON ####[facility] [place], [place] [phone] Transferrin Saturatn 32 % Normal 15-57 [facility] Comment on above: Performed By: #### F ERR, IRON ####[place] [address] [place] [place], [place] [phone] LDon 08-19-2020 LD 171 U/L Normal 135-214 [facility] Monclnl Protein, Seron 08-19 K/L Ratio, Serum 1.43 Normal 0.26-1.65 [facility] Comment on above: Performed By: #### S ANGELICA, B12 ####[address] [phone] [place], Free, Serum 28.3 mg/L High 3.30-19.40 [facility] Comment on above: Result Comment: Test performed by an immunoturbidimetric assay on Optilite instrument from [facility]. Immunoglobulin free light chain assay results should be interpreted in conjunction with other tests and in correlation with clinical picture. Performed By: #### S ANGELICA, B12 ####[address] [phone] Lambda, Free, Serum 19.8 mg/L Normal 5.7-26.3 [facility] Comment on above: Result Comment: Test performed by an immunoturbidimetric assay on Optilite instrument from [facility]. Immunoglobulin free light chain assay results should be interpreted in conjunction with other tests and in correlation with clinical picture. Performed By: #### S ANGELICA, B12 ####[address] [phone] MPA Interpretation SEE COMMENT Normal [facility] Comment on above: Result Comment: Poor [...] Clinical correlation is necessary. Performed By: #### S ANGELICA, B12 ####[place] [id number] [place], [place] [phone] MPA Result A poorly defined reg ion of restricted mobility is present that may represent an M protein. Critically abnormal No M protein is identified . [facility] Comment on above: Performed By: #### S ANGELICA, B12 ####[facility] [address] [phone] MPA Serum IgA 196 mg/dL Normal 70-400 [facility] Comment on above: Performed By: #### S ERMPA, B12 ####[facility] [address] [place] [phone] MPA Serum IgG 1243 mg/dL Normal 700-1600 [facility] Comment on above: Performed By: #### S ERMSANTO, B12 ####[facility] [address] [place] [phone] MPA Serum IgM 58 mg/dL Normal 40-230 [facility] Comment on above: Performed By: #### S ANGELICA, B12 ####[facility] [place] [phone] Staff Review Reviewed by Audelia Cabrera MD ([id number]) Normal [facility] Comment on above: Performed By: #### S ANGELICA, B12 ####[facility] [place] [phone] Remote CBCDIF (for [facility] use o nly)on 08-19-2020 Abs Baso <0.03 Normal <0.11 [facility] Abs Lamb 0.33 k/uL Normal <0.87 [facility] Abs Neut 3.89 k/uL Normal 1.45-7.50 [facility] Absolute nRBC <0.01 Normal <0.01 [facility] Basophils/100 WBC (Bld) 0.3 % Normal [facility] DTYPE Auto Diff Normal [facility] [...] MCHC (RBC) [Mass/Vol] 34.1 g/dL Normal 30.5-36.0 [facility] MCV (RBC) [Entitic vol] 91.4 fL Normal 80.0-100.0 [facility] Monocytes/100 WBC (Bld) 4.6 % Normal [facility] Neutrophils/100 WBC (Bld) 55.0 % Normal [facility] NRBCs 0.0 /100 WBC Normal 0 [facility] Platelet mean volume (Bld) [Entitic vol] 9.7 fL Normal 9.0-12.7 [facility] Platelets (Bld) [#/Vol] 170 10*3/uL Normal 150-400 [facility] RBC (Bld) [#/Vol] 4.43 10*6/uL Normal 3.90-5.20 [facility] WBC (Bld) [#/Vol] 7.11 10*3/uL Normal 3.70-11.00 [facility] Reticulocyteon 08-19-2020 Abs Retic 0.096 M/uL Normal 0.0180-0.1 000 [facility] Retic% 2.2 % High 0.4-2.0 [facility] Vitamin B12on 08-19-2020 Cobalamin (Vitamin B12) [Mass/Vol] 421 pg/mL Normal 232-1245 [facility] Comment on above: Performed By: #### S ERMSANTO, B12 ####[facility] [address] [place], [place] [phone] Vital Signs Date Time Vital Sign Value Performing Clinician Bea krishnamurthy 11-13-2024 10:50-0400 Body height 154.94 cm Carmen Conley MD Work Phone: [facility] 11-13-2024 10:50-0400 Body mass index (BMI) [Ratio] 26.6 kg/m2 Carmen Conley MD Work Phone: [facility] 11-13-2024 10:50-0400 Body weight 64.06 kg Carmen Conley MD Work Phone: [facility] 11-13-2024 10:50-0400 Diastolic blood pressure 75 mm[Hg] Carmen Conley MD Work Phone: [facility] 11-13-2024 10:50-0400 Heart rate 90 /min Carmen Conley MD Work Phone: [facility] 11-13-2024 10:50-0400 Respiratory rate 14 /min Carmen Conley MD Work Phone: [facility] 11-13-2024 10:50-0400 SaO2% (BldA) [Mass fraction] 99 % Carmen Conley MD Work Phone: [facility] 11-13-2024 10:50-0400 Systolic blood pressure 115 mm[Hg] Carmen Conley MD Work Phone: [facility] 10-29-2024 13:49-0400 Body height 154.94 cm Carmen Conley MD Work Phone: [facility] 10-29-2024 13:49-0400 Body mass index (BMI) [Ratio] 27.3 kg/m2 Carmen Conley MD Work Phone: [facility] 10-29-2024 13:49-0400 Body weight 65.54 kg Carmen Conley MD Work Phone: [facility] 10-29-2024 13:49-0400 Diastolic blood pressure 80 mm[Hg] Carmen Conley MD Work Phone: [facility] 10-29-2024 13:49-0400 Heart rate 108 /min Carmen Conley MD Work Phone: [facility] 10-29-2024 13:49-0400 Respiratory rate 14 /min Carmen Conley MD Work Phone: [facility] 10-29-2024 13:49-0400 SaO2% (BldA) [Mass fraction] 98 % Carmen Conley MD Work Phone: [facility] 10-29-2024 13:49-0400 Systolic blood pressure 121 mm[Hg] Carmen Conley MD Work Phone: [facility] 09-29-2024 10:30-0400 Body height 154.94 cm Carmen Conley MD Work Phone: [facility] 09-29-2024 10:30-0400 Body mass index (BMI) [Ratio] 29 kg/m2 Carmen Conley MD Work Phone: [facility] 09-29-2024 10:30-0400 Body weight 69.62 kg Carmen Conley MD Work Phone: [facility] 09-29-2024 10:30-0400 Diastolic blood pressure 70 mm[Hg] Carmen Conley MD Work Phone: [facility] 09-29-2024 10:30-0400 Heart rate 85 /min Carmen Conley MD Work Phone: [facility] 09-29-2024 10:30-0400 Systolic blood pressure 109 mm[Hg] Carmen Conley MD Work Phone: [facility] 09-10-2024 10:53-0400 Body height 154.94 cm [facility] 09-10-2024 10:53-0400 Body mass index (BMI) [Ratio] 29.2 kg/m2 [facility] 09-10-2024 10:53-0400 Body weight 70.3 kg [facility] [facility] 09-10-2024 10:53-0400 Diastolic blood pressure 81 mm[Hg] [facility] 09-10-2024 10:53-0400 Heart rate 85 /min [facility] 09-10-2024 10:53-0400 Respiratory rate 12 /min [facility] 09-10-2024 10:53-0400 SaO2% (BldA) [Mass fraction] 96 % [facility] 09-10-2024 10:53-0400 Systolic blood pressure 133 mm[Hg] [facility] 06-29-2024 13:57-0400 Body height 154.94 cm [facility] 06-29-2024 13:57-0400 Body mass index (BMI) [Ratio] 29.1 kg/m2 [facility] 06-29-2024 13:57-0400 Body weight 69.93 kg [facility] 06-29-2024 13:57-0400 Diastolic blood pressure 60 mm[Hg] [facility] 06-29-2024 13:57-0400 Heart rate 86 /min [facility] 06-29-2024 13:57-0400 Respiratory rate 12 /min [facility] 06-29-2024 13:57-0400 SaO2% (BldA) [Mass fraction] 99 % [facility] 06-29-2024 13:57-0400 Systolic blood pressure 130 mm[Hg] [facility] 05-08-2024 09:03-0500 Body height 154.94 cm [facility] 05-08-2024 09:03-0500 Body mass index (BMI) [Ratio] 29.7 kg/m2 [facility] 05-08-2024 09:03-0500 Body weight 71.27 kg [facility] 05-08-2024 09:03-0500 Diastolic blood pressure 70 mm[Hg] [facility] 05-08-2024 09:03-0500 Heart rate 100 /min [facility] 05-08-2024 09:03-0500 SaO2% (BldA) [Mass fraction] 95 % [facility] 05-08-2024 09:03-0500 Systolic blood pressure 118 mm[Hg] [facility] 02-26-2024 13:26-0500 Diastolic blood pressure 77 mm[Hg] Carmen Conley MD Work Phone: [facility] 02-26-2024 13:26-0500 Heart rate 92 /min Carmen Conley MD Work Phone: [facility] 02-26-2024 13:26-0500 Respiratory rate 18 /min Carmen Conley MD Work Phone: [facility] 02-26-2024 13:26-0500 SaO2% (BldA) [Mass fraction] 98 % Carmen Conley MD Work Phone: [facility] 02-26-2024 13:26-0500 Systolic blood pressure 146 mm[Hg] Carmen Conley MD Work Phone: [facility] 02-26-2024 11:01-0500 Body height 154.94 cm Carmen Conley MD Work Phone: [facility] 02-26-2024 11:01-0500 Body weight 67.13 kg Carmen Conley MD Work Phone: [facility] 02-05-2024 11:34-0400 Body height 153.67 cm Cramen Conley MD Work Phone: [facility] 02-05-2024 11:34-0400 Body mass index (BMI) [Ratio] 28.6 kg/m2 Carmen Conley MD Work Phone: [facility] 02-05-2024 11:34-0400 Body weight 67.58 kg Carmen Conley MD Work Phone: [facility] 02-05-2024 11:34-0400 Diastolic blood pressure 70 mm[Hg] Carmen Conley MD Work Phone: [facility] 02-05-2024 11:34-0400 Heart rate 108 /min Carmen Conley MD Work Phone: [facility] 02-05-2024 11:34-0400 Systolic blood pressure 106 mm[Hg] Carmen Conley MD Work Phone: [facility] 01-09-2024 09:57-0400 Body height 153.67 cm Carmen Conley MD Work Phone: [facility] 01-09-2024 09:57-0400 Body mass index (BMI) [Ratio] 28.8 kg/m2 Carmen Conley MD Work Phone: [facility] 01-09-2024 09:57-0400 Body weight 68.09 kg Carmen Conley MD Work Phone: [facility] 01-09-2024 09:57-0400 Diastolic blood pressure 80 mm[Hg] Carmen Conley MD Work Phone: [facility] 01-09-2024 09:57-0400 Heart rate 74 /min Carmen Conley MD Work Phone: [facility] 01-09-2024 09:57-0400 Respiratory rate 16 /min Carmen Conley MD Work Phone: [facility] 01-09-2024 09:57-0400 SaO2% (BldA) [Mass fraction] 98 % Carmen Conley MD Work Phone: [facility] 01-09-2024 09:57-0400 Systolic blood pressure 128 mm[Hg] Carmen Conley MD Work Phone: [facility] 01-07-2024 10:25-0400 Body height 153.67 cm Carmen Conley MD Work Phone: [facility] 01-07-2024 10:25-0400 Body mass index (BMI) [Ratio] 28 kg/m2 Carmen Conley MD Work Phone: [facility] 01-07-2024 10:25-0400 Body weight 66.22 kg Carmen Conley MD Work Phone: [facility] 01-07-2024 10:25-0400 Diastolic blood pressure 75 mm[Hg] Carmen Conley MD Work Phone: [facility] 01-07-2024 10:25-0400 Heart rate 84 /min Carmen Conley MD Work Phone: [facility] 01-07-2024 10:25-0400 Systolic blood pressure 131 mm[Hg] Carmen Conley MD Work Phone: [facility] 12-26-2023 10:41-0400 Body height 153.67 cm Carmen Conley MD Work Phone: [facility] 12-26-2023 10:41-0400 Body mass index (BMI) [Ratio] 29.2 kg/m2 Carmen Conley MD Work Phone: [facility] 12-26-2023 10:41-0400 Body weight 68.94 kg Carmen Conley MD Work Phone: [facility] 12-26-2023 10:41-0400 Diastolic blood pressure 75 mm[Hg] Carmen Conley MD Work Phone: [facility] 12-26-2023 10:41-0400 Heart rate 105 /min Carmen Conley MD Work Phone: [facility] 12-26-2023 10:41-0400 Systolic blood pressure 115 mm[Hg] Carmen Conley MD Work Phone: [facility] 12-17-2023 11:29-0400 Body height 153.67 cm Carmen Conley MD Work Phone: [facility] 12-17-2023 11:29-0400 Body mass index (BMI) [Ratio] 29.5 kg/m2 Carmen Conley MD Work Phone: [facility] 12-17-2023 11:29-0400 Body temperature 97.7 [degF] Carmen Conley MD Work Phone: [facility] 12-17-2023 11:29-0400 Body weight 69.85 kg Carmen Conley MD Work Phone: [facility] 12-17-2023 11:29-0400 Diastolic blood pressure 70 mm[Hg] Carmen Conley MD Work Phone: [facility] 12-17-2023 11:29-0400 Heart rate 102 /min Carmen Conley MD Work Phone: [facility] 12-17-2023 11:29-0400 SaO2% (BldA) [Mass fraction] 97 % Carmen Conley MD Work Phone: [facility] 12-17-2023 11:29-0400 Systolic blood pressure 111 mm[Hg] Carmen Conley MD Work Phone: [facility] 10-08-2023 13:29-0400 Diastolic blood pressure 80 mm[Hg] Dontae Hernández [facility] 10-08-2023 13:29-0400 Heart rate 79 /min Dontae Hernández [facility] 10-08-2023 13:29-0400 Respiratory rate 20 /min Dontae Hernández [facility] 10-08-2023 13:29-0400 SaO2% (BldA) [Mass fraction] 94 % Dontae Edgar [facility] 10-08-2023 13:29-0400 Systolic blood pressure 134 mm[Hg] Dontae Hernández [facility] 09-05-2023 10:12-0400 Diastolic blood pressure 86 mm[Hg] Dontae Hernández [facility] 09-05-2023 10:12-0400 Mean blood pressure 105 mm[Hg] Dontae Hernández [facility] 09-05-2023 10:12-0400 Systolic blood pressure 142 mm[Hg] Dontae Edgar [facility] 09-05-2023 10:01-0400 Blood Pressure Location Dontae Hernández [facility] 09-05-2023 10:01-0400 Diastolic blood pressure 88 mm[Hg] Dontae Hernández [facility] 09-05-2023 10:01-0400 Heart rate 82 /min Dontae Hernández [facility] 09-05-2023 10:01-0400 SaO2% (BldA) [Mass fraction] 97 % Dontae Hernández [facility] 09-05-2023 10:01-0400 Systolic blood pressure 142 mm[Hg] Dontae Hernández [facility] 07-24-2023 13:50-0400 Blood Pressure Location Mohamad Mouchli [facility] 07-24-2023 13:50-0400 Diastolic blood pressure 77 mm[Hg] Mohamad Mouchli [facility] 07-24-2023 13:50-0400 Heart rate 85 /min Mohamad Mouchli [facility] 07-24-2023 13:50-0400 Respiratory rate 16 /min Mohamad Mouchli [facility] 07-24-2023 13:50-0400 Systolic blood pressure 135 mm[Hg] Mohamad Mouchli [facility] 07-02-2023 09:50-0400 Diastolic blood pressure 72 mm[Hg] Mohamad Mouchli [facility] 07-02-2023 09:50-0400 Heart rate 82 /min Mohamad Mouchli [facility] 07-02-2023 09:50-0400 Mean blood pressure 97 mm[Hg] Mohamad Mouchli [facility] 07-02-2023 09:50-0400 Respiratory rate 17 /min Mohamad Mouchli [facility] 07-02-2023 09:50-0400 SaO2% (BldA) [Mass fraction] 94 % Mohamad Mouchli [facility] 07-02-2023 09:50-0400 Systolic blood pressure 148 mm[Hg] Mohamad Mouchli [facility] 07-02-2023 09:40-0400 Diastolic blood pressure 72 mm[Hg] Mohamad Mouchli [facility] 07-02-2023 09:40-0400 Heart rate 80 /min Mohamad Mouchli [facility] 07-02-2023 09:40-0400 Mean blood pressure 92 mm[Hg] Mohamad Mouchli [facility] 07-02-2023 09:40-0400 Respiratory rate 11 /min Mohamad Mouchli [facility] 07-02-2023 09:40-0400 SaO2% (BldA) [Mass fraction] 93 % Mohamad Mouchli [facility] 07-02-2023 09:40-0400 Systolic blood pressure 132 mm[Hg] Mohamad Mouchli [facility] 07-02-2023 09:35-0400 Diastolic blood pressure 62 mm[Hg] Mohamad Mouchli [facility] 07-02-2023 09:35-0400 Heart rate 86 /min Mohamad Mouchli [facility] 07-02-2023 09:35-0400 Mean blood pressure 90 mm[Hg] Mohamad Mouchli [facility] 07-02-2023 09:35-0400 Respiratory rate 15 /min Mohamad Mouchli [facility] 07-02-2023 09:35-0400 SaO2% (BldA) [Mass fraction] 93 % Yvetteamad Mouchli [facility] 07-02-2023 09:35-0400 Systolic blood pressure 147 mm[Hg] Mohamad Mouchli [facility] 07-02-2023 09:25-0400 Body temperature 97.16 [degF] Mohamad Mouchli [facility] 07-02-2023 08:43-0400 Blood Pressure Location Mohamad Mouchli [facility] 07-02-2023 08:43-0400 Body temperature 96.8 [degF] Mohamad Mouchli [facility] 06-26-2023 12:17-0400 Blood Pressure Location Mohamaemmy Wilduchli [facility] 06-26-2023 12:17-0400 Diastolic blood pressure 82 mm[Hg] Yvetteamad Mouchli [facility] 06-26-2023 12:17-0400 Heart rate 80 /min Ramyad Mouchli [facility] 06-26-2023 12:17-0400 Respiratory rate 16 /min Mohjohann Gipsonli [facility] 06-26-2023 12:17-0400 Systolic blood pressure 138 mm[Hg] Yvetteamad Junitouchli [facility] 06-21-2023 13:44-0400 Diastolic blood pressure 68 mm[Hg] Deonte Peraza [facility] 06-21-2023 13:44-0400 Heart rate 96 /min Deonte Peraza [facility] 06-21-2023 13:44-0400 SaO2% (BldA) [Mass fraction] 95 % Deonte Peraza [facility] 06-21-2023 13:44-0400 Systolic blood pressure 138 mm[Hg] Deonte Peraza [facility] 03-21-2023 13:30-0500 Body height 153.67 cm Carmen Conley Other [facility] [employer] Other 03-21-2023 13:30-0500 Body mass index (BMI) [Ratio] 30.54 kg/m2 Carmen Conley Other [employer] Other 03-21-2023 13:30-0500 Body weight 72.12 kg Carmen Conley Other [employer] Other 03-21-2023 13:30-0500 Diastolic blood pressure 79 mm[Hg] Carmen Conley Other [employer] Other 03-21-2023 13:30-0500 Systolic blood pressure 136 mm[Hg] Carmen Conley Other [employer] Other 01-24-2023 11:15-0400 Body height 153.67 cm Carmen Conley Other [employer] Other 01-24-2023 11:15-0400 Body mass index (BMI) [Ratio] 29.58 kg/m2 Carmen Conley Other [employer] Other 01-24-2023 11:15-0400 Body temperature 97.7 [degF] Carmen Conley Other [employer] Other 01-24-2023 11:15-0400 Body weight 69.85 kg Carmen Conley Other [facility] Other 01-24-2023 11:15-0400 Diastolic blood pressure 80 mm[Hg] Carmen Conley Other [employer] Other 01-24-2023 11:15-0400 SaO2% (BldA) [Mass fraction] 97 % Carmen Conley Other [employer] Other 01-24-2023 11:15-0400 Systolic blood pressure 137 mm[Hg] Carmen Conley Other [facility] Other 12-28-2022 13:30-0400 Body height 153.67 cm Carmen Conley Other [employer] Other 12-28-2022 13:30-0400 Body mass index (BMI) [Ratio] 29.96 kg/m2 Carmen Conley Other [employer] Other 12-28-2022 13:30-0400 Body weight 70.76 kg Carmen Conley Other [employer] Other 12-28-2022 13:30-0400 Diastolic blood pressure 64 mm[Hg] Carmen Conley Other [employer] Other 12-28-2022 13:30-0400 Systolic blood pressure 106 mm[Hg] Carmen Conley Other [facility] Other 08-07-2022 12:45-0400 Body height 153.67 cm Carmen Conley Other [employer] Other 08-07-2022 12:45-0400 Body mass index (BMI) [Ratio] 30.15 kg/m2 Carmen Conley Other [employer] Other 08-07-2022 12:45-0400 Body temperature 98.1 [degF] Carmen Conley Other [facility] Other 08-07-2022 12:45-0400 Body weight 71.22 kg Carmen Conley Other [facility] Other 08-07-2022 12:45-0400 Diastolic blood pressure 72 mm[Hg] Carmen Conley Other [facility] Other 08-07-2022 12:45-0400 SaO2% (BldA) [Mass fraction] 97 % Carmen Conley Other [facility] Other 08-07-2022 12:45-0400 Systolic blood pressure 132 mm[Hg] Carmen Conley Other [facility] Other 06-20-2022 12:00-0400 Body height 153.67 cm Carmen Conley Other [facility] Other 06-20-2022 12:00-0400 Body mass index (BMI) [Ratio] 30.54 kg/m2 Carmen Conley Other [facility] Other 06-20-2022 12:00-0400 Body weight 72.12 kg Carmen Conley Other [employer] Other 06-20-2022 12:00-0400 Diastolic blood pressure 70 mm[Hg] Carmen Conley Other [facility] Other 06-20-2022 12:00-0400 SaO2% (BldA) [Mass fraction] 98 % Carmen Conley Other [facility] Other 06-20-2022 12:00-0400 Systolic blood pressure 118 mm[Hg] Carmen Conley Other [facility] Other 06-12-2022 09:30-0500 Body height 153.67 cm Carmen Conley Other [employer] Other 06-12-2022 09:30-0500 Body mass index (BMI) [Ratio] 30.54 kg/m2 Carmen Conley Other [facility] Other 06-12-2022 09:30-0500 Body weight 72.12 kg Carmen Conley Other [facility] Other 06-12-2022 09:30-0500 Diastolic blood pressure 64 mm[Hg] Carmen Conley Other [facility] Other 06-12-2022 09:30-0500 SaO2% (BldA) [Mass fraction] 97 % Carmen Conley Other [facility] Other 06-12-2022 09:30-0500 Systolic blood pressure 116 mm[Hg] Carmen Conley Other [facility] Other 05-10-2022 11:00-0500 Body height 153.67 cm Carmen Conley Other [facility] Other 05-10-2022 11:00-0500 Body mass index (BMI) [Ratio] 30.54 kg/m2 Carmen Conley Other [facility] Other 05-10-2022 11:00-0500 Body weight 72.12 kg Carmen Conley Other [facility] Other 05-10-2022 11:00-0500 Diastolic blood pressure 62 mm[Hg] Carmen Conley Other [facility] Other 05-10-2022 11:00-0500 SaO2% (BldA) [Mass fraction] 97 % Carmen Conley Other [facility] Other 05-10-2022 11:00-0500 Systolic blood pressure 118 mm[Hg] Carmen Conley Other [facility] Other 04-20-2022 11:30-0500 Body height 153.67 cm Carmen Conley Other [facility] Other 04-20-2022 11:30-0500 Body mass index (BMI) [Ratio] 30.54 kg/m2 Carmen Conley Other [facility] Other 04-20-2022 11:30-0500 Body weight 72.12 kg Carmen Conley Other [facility] Other 04-20-2022 11:30-0500 Diastolic blood pressure 80 mm[Hg] Carmen Conley Other [facility] Other 04-20-2022 11:30-0500 SaO2% (BldA) [Mass fraction] 97 % Carmen Conley Other [facility] Other 04-20-2022 11:30-0500 Systolic blood pressure 126 mm[Hg] Carmen Conley Other [facility] Other 04-16-2022 15:15-0500 Body height 153.67 cm Carmen Conley Other [facility] Other 04-16-2022 15:15-0500 Body mass index (BMI) [Ratio] 30.35 kg/m2 Camren Conley Other [employer] Other 04-16-2022 15:15-0500 Body weight 71.67 kg Carmen Conley Other [facility] Other 04-16-2022 15:15-0500 Diastolic blood pressure 82 mm[Hg] Carmen Conley Other [facility] Other 04-16-2022 15:15-0500 SaO2% (BldA) [Mass fraction] 97 % Carmen Conley Other [facility] Other 04-16-2022 15:15-0500 Systolic blood pressure 136 mm[Hg] Carmen Conley Other [facility] Other Encounters Encounter Date Encounter Type Care Provider Facility Start: 11-26-2024 End: 11-27-2024 Telephone encounter Elly Serna MD Work Phone: [facility] Comment on above: swallow test appt fo llow up Start: 11-13-2024 End: 11-13-2024 ambulatory Carmen Conley MD Work Phone: [facility] Work Phone: Start: 11-13-2024 End: 11-13-2024 Patient encounter procedure Carmen Conley MD -[facility] Work Phone: Start: 11-04-2024 Non-patient / Non-visit Treva Marie CMA -[facility] Work Phone: Start: 11-03-2024 Evaluation and management of inpatient VITO PAVON [facility] Start: 11-02-2024 Evaluation and management of inpatient [facility] Start: 10-30-2024 Evaluation and management of inpatient [facility] Start: 10-30-2024 Evaluation and management of inpatient PIA TERESITA [facility] Start: 10-29-2024 End: 11-03-2024 Evaluation and management of inpatient DUC HAMILTON [facility] Start: 10-29-2024 End: 10-29-2024 Emergency department patient visit DUC HAMILTON [facility] Start: 10-29-2024 End: 10-29-2024 ambulatory Carmen Conley MD Work Phone: [facility] Work Phone: Start: 10-29-2024 End: 10-29-2024 Departed Referred Preet Melchor MD -[facility] Start: 10-29-2024 End: 10-29-2024 ambulatory Carmen Conley MD Work Phone: [facility] Work Phone: Start: 10-29-2024 End: 10-29-2024 Patient encounter procedure Carmen Conley MD -[facility] Work Phone: Start: 10-21-2024 End: 11-13-2024 Telephone encounter Elly Serna MD Work Phone: [facility] Start: 10-12-2024 End: 10-12-2024 Bamboo flowsheet Elly Serna MD Work Phone: [facility] Start: 10-12-2024 End: 10-12-2024 Bamgabyo flowsheet Elly Serna MD Work Phone: [facility] Start: 10-12-2024 Patient encounter status Eyad Serna MD Work Phone: [facility] Start: 10-12-2024 End: 10-12-2024 ambulatory ELLY SERNA Not Available Start: 09-29-2024 End: 09-29-2024 Patient encounter procedure Carmen Conley MD -[facility] Work Phone: Start: 09-25-2024 Non-patient / Non-visit Carmen black MD -[facility] Work Phone: Start: 09-10-2024 End: 09-10-2024 ambulatory [facility] Work Phone: Start: 09-10-2024 End: 09-10-2024 Patient encounter procedure [facility] Work Phone: Start: 06-29-2024 End: 06-29-2024 ambulatory [facility] Work Phone: Start: 06-29-2024 End: 06-29-2024 Patient encounter procedure [facility] Work Phone: Start: 06-09-2024 End: 06-09-2024 Office outpatient visit 25 minutes Zuleima A Felter [employer] ABUSE COUNSELOR Work Phone: [facility] Comment on above: Psoriasis vulgaris ( CMS/HCC) (Primary Dx) Start: 06-09-2024 End: 06-09-2024 ambulatory ZULEIMA A FELTER Not Available Start: 06-09-2024 End: 06-09-2024 Bamboo flowsheet Zuleima A Felter [employer] ABUSE COUNSELOR Work Phone: [facility] Start: 06-09-2024 End: 06-09-2024 Bamboo flowsheet Zuleima A Felter [employer] ABUSE COUNSELOR Work Phone: [facility] Start: 05-08-2024 End: 05-08-2024 Patient encounter procedure [facility] Work Phone: Start: 04-28-2024 End: 04-28-2024 Office outpatient visit 15 minutes Zuleima A Felter [employer] ABUSE COUNSELOR Work Phone: [facility] Comment on above: Psoriasis vulgaris ( CMS/HCC) Start: 04-28-2024 End: 04-28-2024 ambulatory ZULEIMA A FELTER Not Available Start: 04-28-2024 End: 04-28-2024 Bamboo flowsheet Zuleima A Felter [employer] ABUSE COUNSELOR Work Phone: [facility] Start: 04-28-2024 End: 04-28-2024 Bamboo flowsheet Zuleima A Felter [employer] ABUSE COUNSELOR Work Phone: [facility] Start: 04-03-2024 Patient encounter procedure [facility] Start: 02-26-2024 Non-patient / Non-visit Carmen Conley MD Work Phone: [facility] Work Phone: Start: 02-26-2024 End: 02-26-2024 Admission to same day surgery center Carmen Conley MD Work Phone: [facility] Work Phone: Start: 02-26-2024 End: 02-26-2024 ambulatory Carmen Conley MD Work Phone: [facility] Work Phone: Start: 02-05-2024 End: 02-05-2024 Patient encounter procedure Carmen Conley MD Work Phone: [facility] Work Phone: Start: 01-24-2024 ambulatory [facility] Facility:[facility] Start: 01-09-2024 Non-patient / Non-visit Carmen Conley MD Work Phone: [facility] Work Phone: Start: 01-09-2024 End: 01-09-2024 Patient encounter procedure Carmen Conley MD Work Phone: [facility] Work Phone: Start: 01-08-2024 ambulatory Shaun Figueredo lity:[facility] Start: 01-07-2024 End: 01-07-2024 Office outpatient visit 15 minutes Zuleima Mckinley [employer] ABUSE COUNSELOR Work Phone: [facility] Comment on above: Other seborrheic deni matitis (Primary Dx); Inflamed seborrheic keratosis Start: 01-07-2024 End: 01-07-2024 ambulatory ZULEIMA MCKINLEY Not Available Start: 01-07-2024 End: 01-07-2024 Patient encounter procedure Carmen Conley MD Work Phone: [facility] Work Phone: Start: 01-06-2024 End: 01-06-2024 ambulatory Nohemy Mohamud MD Facility:[facility] Start: 12-31-2023 Non-patient / Non-visit Carmen Conley MD Work Phone: [facility] Work Phone: Start: 12-26-2023 End: 12-26-2023 Patient encounter procedure Carmen Conley MD Work Phone: [facility] Work Phone: Start: 12-22-2023 Non-patient / Non-visit Carmen Conley MD Work Phone: [facility] Work Phone: Start: 12-21-2023 Non-patient / Non-visit Carmen Conley MD Work Phone: [facility] Work Phone: Start: 12-19-2023 Non-patient / Non-visit Carmen Conley MD Work Phone: [facility] Work Phone: Start: 12-17-2023 End: 12-17-2023 Patient encounter procedure Carmen Conley MD Work Phone: [facility] Work Phone: Start: 12-16-2023 End: 12-16-2023 ambulatory Nohemy Mohamud MD Facility:[facility] Start: 11-25-2023 End: 11-25-2023 ambulatory Nohemy Mohamud MD Facility:[facility] Start: 10-28-2023 End: 10-28-2023 ambulatory Nohemy Mohamud MD Facility:[facility] Start: 10-08-2023 End: 10-08-2023 ambulatory Dontae Hernández Facility:[facility] Start: 10-08-2023 End: 10-08-2023 Patient encounter procedure Dontae eHrnández [facility] Start: 10-01-2023 End: 10-01-2023 ambulatory Dontae Hernández Facility:[facility] Start: 10-01-2023 End: 10-01-2023 Patient encounter procedure Dontae Hernández [facility] Start: 09-05-2023 End: 09-05-2023 ambulatory Dontae Hernández Facility:[facility] Start: 09-05-2023 End: 09-05-2023 Patient encounter procedure Dontae Hernández [facility] Start: 08-05-2023 End: 08-05-2023 ambulatory Deonte Peraza Facility:[facility] Start: 08-05-2023 End: 08-05-2023 Patient encounter procedure Deonte Peraza [facility] Start: 08-01-2023 End: 08-16-2023 Pre-admission assessment Deonte Peraza [facility] Start: 07-24-2023 End: 08-07-2023 Pre-admission assessment Shaun Goode [facility] Start: 07-24-2023 End: 07-24-2023 ambulatory Shaun Goode Facility:[facility] Start: 07-24-2023 End: 07-24-2023 Patient encounter procedure Shaun Goode [facility] Start: 07-02-2023 End: 07-02-2023 ambulatory Yvettechelaemmy AidenJeff Junitomaximo Facility:[facility] Start: 07-02-2023 End: 07-02-2023 Patient encounter procedure Ramyaemmy AidenJeff Goode [facility] Start: 06-26-2023 End: 06-26-2023 ambulatory Yvettechelaemmy AidenJeff Goode Facility:[facility] Start: 06-26-2023 End: 06-26-2023 Patient encounter procedure Ramyaemmy AidenJeff Junitomaximo [facility] Start: 06-26-2023 End: 06-26-2023 ambulatory Shaun AidenJeff Goode Facility:[facility] Start: 06-26-2023 End: 06-26-2023 Patient encounter procedure Shaun AidenJeff Goode [facility] Start: 06-21-2023 End: 06-21-2023 ambulatory Deonte Peraza Facility:[facility] Start: 06-21-2023 End: 06-21-2023 Patient encounter procedure Deonte Peraza [facility] Start: 06-18-2023 End: 06-18-2023 ambulatory CARMEN CONLEY Facility:[facility] Start: 06-18-2023 End: 06-18-2023 Patient encounter procedure CARMEN CONLEY [facility] Start: 06-13-2023 ambulatory Dontae Hernández Facility:[facility] Start: 05-14-2023 End: 05-14-2023 ambulatory Carmen Conley Other [facility] [employer] Other Start: 05-14-2023 Telephone encounter Carmen Conley [facility] Start: 04-03-2023 End: 04-03-2023 ambulatory Carmen Conley Other [facility] Other Start: 04-03-2023 Telephone encounter Carmen Conley [facility] Start: 04-02-2023 End: 04-02-2023 ambulatory Carmen Conley Other [facility] Other Start: 04-02-2023 Telephone encounter Carmen Conley [facility] Start: 03-21-2023 End: 03-21-2023 ambulatory Carmen Conley Other [facility] Other Start: 03-21-2023 Office outpatient vi sit 15 minutes Carmen Conley [facility] Start: 03-21-2023 Telephone encounter Carmen Conley [facility] Start: 02-06-2023 End: 02-06-2023 ambulatory Camren Conley Other [facility] Other Start: 02-06-2023 Telephone encounter Carmen Conley [facility] Start: 02-01-2023 End: 02-01-2023 ambulatory Carmen Conley Other [facility] Other Start: 02-01-2023 Telephone encounter Carmen Conley [facility] Start: 01-24-2023 End: 01-24-2023 ambulatory Carmen Conley Other [facility] Other Start: 01-24-2023 Office outpatient vi sit 15 minutes Carmen Conley [facility] Start: 01-17-2023 End: 01-17-2023 ambulatory Carmen Conley Other [facility] Other Start: 01-17-2023 Telephone encounter Carmen Conley [facility] Start: 01-01-2023 End: 01-01-2023 ambulatory Carmen Conley Other [facility] Other Start: 01-01-2023 Telephone encounter Carmen Conley [facility] Start: 12-28-2022 End: 12-28-2022 ambulatory Carmen Conley Other [facility] Other Start: 12-28-2022 Patient encounter procedure Carmen Conley [facility] Start: 10-04-2022 End: 10-04-2022 ambulatory Carmen Conley Other [facility] Other Start: 10-04-2022 Telephone encounter Carmen Conley [facility] Start: 08-09-2022 End: 08-09-2022 ambulatory Carmen Conley Other [facility] Other Start: 08-09-2022 Telephone encounter Carmen Conley [facility] Start: 08-08-2022 Telephone encounter Carmen Conley [facility] Start: 08-08-2022 End: 08-09-[address] CARMEN CONLEY [facility] Other Start: 08-07-2022 End: 08-07-2022 ambulatory Carmen Conley Other [facility] Other Start: 08-07-2022 Office outpatient vi sit 15 minutes Carmen Conley [facility] Start: 07-31-2022 End: 07-31-2022 ambulatory Carmen Conley Other [facility] Other Start: 07-31-2022 Telephone encounter Carmen Conley [facility] Start: 07-02-2022 End: 07-03-[address] CARMEN CONLYE Facility: Start: 06-20-2022 End: 06-20-2022 ambulatory Carmen Conley Other [facility] Other Start: 06-20-2022 Office outpatient vi sit 10 minutes Carmen Conley [facility] Start: 06-14-2022 End: 06-14-2022 ambulatory Carmen Conley Other [facility] Other Start: 06-14-2022 Telephone encounter Carmen Conley [facility] Start: 06-12-2022 Office outpatient vi sit 15 minutes Carmen Conley [facility] Start: 06-12-2022 End: 06-13-[address] CARMEN CONLEY [facility] Other Start: 05-10-2022 End: 05-10-2022 ambulatory Carmen Conley Other [facility] Other Start: 05-10-2022 Office outpatient vi sit 15 minutes Carmen Conley [facility] Start: 05-10-2022 Telephone encounter Carmen Conley [facility] Start: 05-03-2022 End: 05-03-2022 ambulatory Carmen Conley Other [facility] Other Start: 05-03-2022 Telephone encounter Carmen Conley [facility] Start: 04-23-2022 End: 04-24-[address] CARMEN CONLEY Facility:[facility] Start: 04-20-2022 End: 04-20-2022 ambulatory Carmen Conley Other [facility] Other Start: 04-20-2022 Office outpatient vi sit 25 minutes Carmen Conley [facility] Start: 04-17-2022 End: 04-17-2022 ambulatory Carmen Conley Other [facility] Other Start: 04-17-2022 Telephone encounter Carmen Conley [facility] Start: 04-16-2022 End: 04-16-2022 ambulatory Carmen Conley Other [facility] Other Start: 04-16-2022 Office outpatient vi sit 25 minutes Carmen Conley [facility] Start: 04-12-2022 End: 04-13-[address] CARMEN CONLEY Facility:[facility] Start: 01-05-2022 End: 01-06-[address] CARMEN CONLEY Facility:[facility] Start: 11-26-2021 End: 11-26-[address] CARMEN CONLEY Facility:[facility] Start: 11-08-2021 End: 11-08-[address] SUKHWINDER WHITE Facility:[facility] Start: 08-17-2021 End: 08-18-[address] CARMEN CONLEY Facility:[facility] Start: 08-11-2021 Telephone encounter Mehrdad robledo MD Work Phone: [facility] Comment on above: Appointment Start: 09-21-2020 End: 09-21-2020 Subsequent hospital visit by physician Mri [facility] (Lg Bore/1.5t) Radiology MRI Comment on above: Thrombocytopenia (HC C) [D69.6] Procedures Date Procedure Procedure Detail Performing Clinician Start: 10-29-2024 Urine culture Carmen Conley MD Work Phone: Start: 02-26-2024 Colonoscopy Carmen Conley MD Work Phone: Start: 01-07-2024 CRYOTHERAPY SKIN LESION Zuleima Contrerassylvia [employer] ABUSE COUNSELOR Work Phone: Start: 07-02-2023 Esophagogastroduodenoscopy Shaun hobbs Start: 09-30-2020 Adult depression screening assessment Mehrdad Aguilar MD Work Phone: Start: 09-27-2020 Lipid 1996 panel - Serum or Plasma Mri B ore/1.5t) Start: 09-21-2020 Mri abdomen w/o & w/contrast material Mac Perez [employer] ABUSE COUNSELOR Work Phone: Start: 09-27-2016 Colonoscopy Zuleima Contrerassylvia [employer] ABUSE COUNSELOR Work Phone: Start: 09-21-2016 Mammography Zuleima Mckinley [employer] ABUSE COUNSELOR Work Phone: Gallbladder structur e (body structure) Shaun Goode Hand structure (body structure) Shaun Goode Hysterectomy Shaun Goode Upper limb structure (body structure) Shaun Goode Urinary bladder stru cture (body structure) Shaun Goode Comment on above: 15/ years ago Plan of Treatment Date Care Activity Detail Author Start: 09-27-2026 Screening for malign ant neoplasm of colon [facility] Start: 09-27-2025 Lipid 1996 panel - S mary or Plasma Lipid Screening [facility] Start: 09-27-2025 LIPID SCREEN LIPID SCREEN [facility] Start: 12-07-2024 Influenza vaccination Influenza Vacc ine (#1) [facility] Start: 10-29-2024 Urine culture [facility] Start: 10-29-2024 Bacteria identified in Urine by Culture Urine Culture [facility] Start: 10-12-2024 End: 10-12-2024 Patient encounter procedure 10/12/2024 8:40 AM EDT Office Visit [facility] [address] [place] [address] Elly Serna MD [address] [place] [address] Arrived [facility] Comment on above: Arrived Start: 07-21-2024 End: 07-21-2024 Patient encounter procedure 07/21/2024 1:10 PM EDT Office Visit [facility] [address] [place] [address] uZleima Mckinley, [employer] ABUSE COUNSELOR [address] [place] [address] [facility] Start: 06-09-2024 End: 06-09-2024 Patient encounter procedure [facility] Comment on above: Arrived Start: 04-28-2024 End: 04-28-2024 Patient encounter procedure 04/28/2024 3:25 PM EST Office Visit [facility] [address] [place] [address] Zuleima Mckinley, [employer] SUBSTANCE ABUSE COUNSELOR [address] [place] [address] Arrived [facility] Comment on above: Arrived Start: 02-26-2024 [facility] Start: 12-08-2023 Influenza vaccination Influenza Vacc ine (#1) [facility] Start: 09-28-2023 DIABETES SCREEN DIABETES SCREEN [facility] Start: 09-28-2023 Diabetes Screening Diabetes Screenin g [facility] Start: 12-07-2022 Influenza vaccination Influenza Vacc ine (#1) [facility] Start: 04-08-2022 Advance Directive Discussion Advance Directive Discussion [facility] Start: 04-08-2022 Depression Assessment Depression Ass essment [facility] Start: 12-07-2021 Influenza vaccination INFLUENZ A (Season Ended) [facility] Start: 09-30-2021 Adult depression screening assessment DEPRESSION SCREENING [facility] Start: 04-08-2021 ADVANCE DIRECTIVE DISCUSSION ADVANCE DIRECTIVE DISCUSSION [facility] Start: 02-17-2020 Pneumococcal Vaccine : 65+ (3 - PPSV23 or PCV20) Pneumococcal Vaccine: 65+ (3 - PPSV23 or PCV20) [facility] Start: 02-17-2020 Pneumococcal Vaccine : 65+ Years (3 of 3 - PCV20 or PCV21) Pneumococcal Vaccine: 65+ Years (3 of 3 - PCV20 or PCV21) [facility] Start: 02-17-2020 Pneumococcal Vaccine : 65+ Years (3 of 3 - PPSV23 or PCV20) Pneumococcal Vaccine: 65+ Years (3 of 3 - PPSV23 or PCV20) [facility] Start: 09-21-2017 Screening for malign ant neoplasm of breast Mammogram [facility] Start: 01-07-2016 PNEUMOVAX AGE 65 AND OVER WITH 5YR LOOKBACK (#1) PNEUMOVAX AGE 65 AND OVER WITH 5YR LOOKBACK (#1) [facility] Start: 03-31-2015 SHINGRIX VACCINE (2 of 3) SHINGRIX VACCINE (2 of 3) [facility] Start: 2014 BONE DENSITY BONE DENSITY [facility] Start: 2014 Bone Density Screening Bone Density Screening [facility] Start: 2009 RSV Vaccine (1 - 1-d ose 60+ series) RSV Vaccine (1 - 1-dose 60+ series) [facility] Start: 1994 COLOGUARD (FIT-DNA) COLOGUARD (FIT-D NA) [facility] Start: 1994 Colonoscopy COLONOSCOPY [facility] Start: 1994 COLORECTAL CANCER SCREENING COLORECTAL CANCER SCREENING [facility] Start: [address] COLONOGRAPHY [facility] Start: 1994 FECAL OCCULT BLOOD FECAL OCCULT BLOO D [facility] Start: 1994 [facility]COPY [facility] Start: 1989 Mammography [facility] Start: 1968 HEPATITIS B (1 of 3 - Risk 3-dose series) HEPATITIS B (1 of 3 - Risk 3-dose series) [facility] Start: 1968 Urine microalbumin profile [facility] Start: 08-04-1967 HEPATITIS C SCREENING HEPATITIS C SC REENING [facility] Start: 1954 COVID-19 VACCINE (1) COVID-19 VACCIN E (1) [facility] Start: 1950 HEPATITIS A (1 of 2 - Risk 2-dose series) HEPATITIS A (1 of 2 - Risk 2-dose series) [facility] Start: 02-02-1950 Covid-19 Vaccine (#1) Covid-19 Vacci ne (#1) [facility] Start: 1949 Screening for malign ant neoplasm of colon [facility] Neck W contrast IV [facility] Patient Education [facility]D C[facility] Urine culture [facility] Urine culture [facility] XR Sinuses GE 3 Views [facility] Immunizations Immunization Date Immunization Notes Care Provider Fa cility 12-28-2022 pneumococcal polysaccharide vaccine, 23 valent Carmen Conley Other [facility] 12-28-2022 influenza, high dose seasonal, preservative-free Carmen Conley Other [facility] Other 12-28-2022 influenza virus vaccine, unspecified formulation Zuleima Mckinley [employer] ABUSE COUNSELOR Work Phone: [facility] 04-26-2021 influenza virus vaccine, unspecified formulation Zuleima Mckinley [employer] ABUSE COUNSELOR Work Phone: [facility] 07-04-2020 COVID-19 Vaccine Moderna - Documentation Purposes Only Carmen Conley Other [facility] 01-07-2020 influenza, high dose seasonal, preservative-free Mehrdad Aguilar MD Work Phone: [facility] 01-07-2020 influenza virus vaccine, unspecified formulation Mri Bore/1.5t) [facility] 11-27-2019 influenza virus vaccine, split virus (incl. purified surface antigen) Carmen Conley Other [facility] Other 11-27-2019 influenza virus vaccine, unspecified formulation Carmen Conley MD Work Phone: [facility] 01-06-2019 influenza, high dose seasonal, preservative-free Mehrdad Aguilar MD Work Phone: [facility] 01-01-2019 influenza virus vaccine, split virus (incl. purified surface antigen) Carmen Conley Other [facility] [employer] Other 01-01-2019 influenza virus vaccine, unspecified formulation Yvetteamad Momaximo [facility] 01-01-2019 Seasonal trivalent influenza vaccine, adjuvanted, preservative free Mehrdad Aguilar MD Work Phone: [facility] 01-13-2018 influenza nasal, unspecified formulation Mehrdad Aguilar MD Work Phone: [facility] 12-17-2017 influenza virus vaccine, unspecified formulation Mohamad Mouchli [facility] 12-17-2017 influenza, high dose seasonal, preservative-free Mehrdad Aguilar MD Work Phone: [facility] 02-05-2017 influenza, high dose seasonal, preservative-free Mehrdad Aguilar MD Work Phone: [facility] 04-09-2016 influenza virus vaccine, unspecified formulation Mohamad Mouchli [facility] 04-09-2016 influenza, injectabl e, quadrivalent, preservative free Mehrdad Aguilar MD Work Phone: [facility] 03-05-2016 influenza, high dose seasonal, preservative-free Mehrdad Aguilar MD Work Phone: [facility] 02-16-2015 influenza, high dose seasonal, preservative-free Mehrdad Aguilar MD Work Phone: [facility] 02-16-2015 pneumococcal conjuga te vaccine, 13 valent Mehrdad Aguilar MD Work Phone: [facility] 02-03-2015 zoster vaccine, live Mehrdad lacey MD Work Phone: [facility] 02-02-2015 influenza, high dose seasonal, preservative-free Mehrdad Aguilar MD Work Phone: [facility] 02-02-2015 pneumococcal conjuga te vaccine, 13 valent Mehrdad Aguilar MD Work Phone: [facility] 03-24-2014 influenza, injectabl e, quadrivalent, contains preservative Mehrdad Aguilar MD Work Phone: [facility] 01-06-2013 influenza, high dose seasonal, preservative-free Mehrdad Aguilar MD Work Phone: [facility] 01-06-2011 pneumococcal polysaccharide vaccine, 23 valent Mehrdad Aguilar MD Work Phone: [facility] Payers Date Payer Category Payer Self-pay 2020 Private Health Insurance [facility] INDEMNITY [id number] 2020-Present [phone] [address] [place] [address] Indemnity [id number] 2020 Private Health Insurance [id number] 2006 Medicare MEDICARE RAILROA D MEDICARE RAILROAD PB ONLY [id number] 2006-Present [phone] [address] [address] [place] [address] Medicare [id number] [id number] 2006 Medicare [id number] [id number]. 2.7.3.565447.315 2006 Unknown 1959 Medicare [id number] [id number] 1959 Private Health Insurance [id number] 2.16.840.1.828445.19 1949 Unknown [id number] 2.16.840.1.534456.3.579. 2.593 1949 Unknown [id number] 2.16.840.1.004199.3.579. 2.593 1949 Unknown [id number] 2.16.840.1.341195.3.579. 2.593 1949 Unknown [id number] 2.16.840.1.041579.3.579. 2.593 1949 Unknown [id number] 2.16.840.1.915155.3.579. 2.593 1949 Unknown [id number] 2.16.840.1.558954.3.579. 2.593 1949 Unknown [id number] 2.16.840.1.295927.3.579. 2.593 1949 Unknown [id number] 2.16.840.1.911472.3.579. 2.593 1949 Unknown [id number] 2.16.840.1.958480.3.579. 2.593 1949 Unknown [id number] 2.16.840.1.026827.3.579. 2.196 1949 Unknown [id number] 2.16.840.1.373344.3.579. 2.196 1949 Unknown [id number] 2.16.840.1.371414.3.579. 2.196 1949 Unknown [id number] 2.16.840.1.237511.3.579. 2.196 1949 Unknown [id number] 2.16.840.1.402840.3.579. 2.72 1949 Unknown [id number] 2.16.840.1.631015.3.579. 2.72 1949 Unknown [id number] 2.16.840.1.564866.3.579. 2.72 1949 Unknown [id number] 2.16.840.1.913938.3.579. 2.72 1949 Unknown [id number] 2.16.840.1.094389.3.579. 2.72 1949 Unknown [id number] 2.16.840.1.825556.3.579. 2.72 1949 Unknown [id number] 2.16.840.1.855393.3.579. 2. 1949 Unknown [id number] 2.16.840.1.536647.3.579. 2.72 1949 Unknown [id number] 2.16.840.1.606583.3.579. 2.72 1949 Unknown [id number] 2.16.840.1.427406.3.579. 2.72 1949 Unknown [id number] 2.16.840.1.149015.3.579. 2.72 1949 Unknown [id number] 2.16.840.1.333004.3.579. 2.72 1949 Unknown [id number] 2.16.840.1.902828.3.579. 2.1259 1949 Unknown [id number] 2.16.840.1.994285.3.579. 2.1259 1949 Unknown [id number] 2.16.840.1.493974.3.579. 2.1259 1949 Unknown [id number] 2.16.840.1.558403.3.579. 2.1259 Medicare Medicare Nonpatient [id number] Unknown [id number] 2.16840.1.519520.3.579. 2.531 Unknown [id number] 2.16.840.1.753695.3.579. 2.531 Social History Date Type Detail Facility Start: 08-18-2020 End: 04-16-2023 Tobacco smoking status NHIS Never smoked tobacco [facility] Start: 08-18-2020 End: 04-16-2023 Tobacco use and exposure Smokeless tobacco non-user [facility] Start: 08-19-2020 End: 09-30-2020 Alcohol intake Ex-drinker (finding) [facility] Start: 1950 Sex Assigned At Not on file [facility] Start: 08-19-2020 End: 10-12-2024 Sex Assigned At [facility] Start: 08-19-2020 End: 10-12-2024 History of Social function [facility] National Score (1-100), lower number is lower risk Not on file [facility] Tobacco smoking status No Smokin g Status Entered [facility] Start: 01-07-2024 End: 10-12-2024 Alcoholic beverage intake Lifetime non-drinker (finding) [facility] Start: 02-26-2024 Sex Patient sex un known (finding) [facility] Start: 1950 Sex Assigned At Female F [facility] Start: 06-29-2024 End: 09-10-2024 Sex Female (finding) [facility] Medical Equipment Procedure Code Equipment Code Equipment Origin al Text Equipment Identifier Dates BD Pen Needle Na no U/F 32G X 4 MM Pen Needle, Diab etic (Bd Ultra-Fine Micro Pen Needle) 32 gauge x 1/4 needle Start: 05-27-2023 Pen Needle, Diab etic (Bd Ultra-Fine Micro Pen Needle) 32 gauge x 1/4 needle Start: 05-27-2023 Pen Needle, Diab etic (Bd Ultra-Fine Micro Pen Needle) 32 gauge x 1/4 needle Start: 05-27-2023 Pen Needle, Diab etic (Bd Ultra-Fine Micro Pen Needle) 32 gauge x 1/4 needle Start: 05-27-2023 Pen Needle, Diab etic (Bd Ultra-Fine Micro Pen Needle) 32 gauge x 1/4 needle Start: 05-27-2023 Pen Needle, Diab etic (Bd Ultra-Fine Micro Pen Needle) 32 gauge x 1/4 needle Start: 05-27-2023 Goals Date Patient Goal Desired Activity /State Functional Status Date Assessment Result Facility 10-08-2023 Functional Status N/A [facility] 09-05-2023 Functional Status No [facility] 07-24-2023 Functional Status N/A [facility] 07-02-2023 Functional Status N/A [facility] 06-26-2023 Functional Status N/A [facility] 06-21-2023 Functional Status N/A [facility] Clinical Notes 08-19-2020 to 11-27-2024 Telephone Encounter - Elly Serna MD - 11/27/2024 8:04 AM EDTTelephone Encounter - Elly Serna MD - 11/27/2024 8:04 AM EDTTelephone Encounter - Kayley Roberts - 11/26/2024 11:37 AM EDT Note Date & Type Note Facility 11-27-2024 Telephone encounter Note ok [facility] 11-27-2024 Miscellaneous Notes ok I cld pt to r/s fu appt with Dr Serna because we see that pt had swallow test done when she [facility]. Pt said she does not want to r/s w/Dr Serna office now because the doctor up in [facility] told her the swallow test was ok and pt is being sent to doctor for her auto immune problem now documented in this encounter [facility] 11-26-2024 Telephone encounter Note I cld pt to r/s fu appt with Dr Serna because we see that pt had swallow test done when she was in [facility]. Pt said she does not want to r/s w/Dr Serna office now because the doctor up in [facility] told her the swallow test was ok and pt is being sent to doctor for her auto immune problem now [facility] 11-03-2024 Note Hospital Medicine Discharge Summary Final Discharge Diagnosis: # Right upper quadrant abdominal pain # Acute cystitis, suspected: # HTN # Overweight # NIDDM # Fibromyalgia # Severe PCM Admission Diagnosis: Right upper quadrant abdominal pain [R10.11] Hospital course: Surgical, Invasive or Diagnostic Procedures Done During Admission: EGD Consultations During Admission: Gastroenterology 74 y.o. female who came from home with past medical history of hypertension, DM2, hypothyroidism, hyperlipidemia, GERD, fibromyalgia presents as a direct admission with chief complaint of abdominal pain. Patient reports that around 6 days ago she began to have right upper quadrant belly pain that was worse with eating. She reports several days later it began to radiate into her right flank. Patient denies nausea and vomiting. She does endorse increased difficulty swallowing that seems to be associated with her symptoms. She does state that she has had her gallbladder removed. She also endorses increased urinary frequency. At [facility] labs were completed showing WBC 12.5, RBC 4.73, hemoglobin 15.3, medic at 42.8, platelet count 239, BUN 11, creatinine1.05, lactate 2.2, magnesium 1.9, total bilirubin 1.6, AST 34, ALT 52. UA does show a small amount of leukocyte Esterace. CT of the abdomen was completed showing no acute inflammatory changes, cholecystectomy changes, urinary bladder wall thickening, moderate constipation. Due to elevated bilirubin level, patient was transferred [facility] for possible MRCP/ERCP. # Right upper quadrant abdominal pain - CT scan of the abdomen did not show pancreatitis or significant intra-abdominal pathology but mild intrahepatic ductal dilation. No obvious mass was seen on CT abdomen pelvis. - MRCP showed no obstruction. - EGD showed mild hyperemia of the distal esophagus. Biopsy was taken. # Acute cystitis, suspected: - Completed 3 days ceftriaxone. # HTN: - Continue benazepril. # Overweight: # NIDDM: - Continue home Ozempic. # Fibromyalgia. # Severe PCM. Deabushra Conley MD, Ivelisse is advised to follow up with you within 1-2 weeks. Items to follow up in ambulatory setting: None Follow-up with: None Scheduled appointments: No future appointments. Your medication list START taking these medications Instructions Last Dose Given Next Dose Due traMADol 50 mg tablet Commonly known as: Ultram Take 1 tablet (50 mg) by mouth every 8 (eight) hours if needed for moderate-severe pain (4-10 pain score) for up to 5 days. CHANGE how you take these medications Instructions Last Dose Given Next Dose Due pantoprazole 40 mg EC tablet Commonly known as: ProtoNix What changed: Another medication with the same name was removed. Continue taking this medication, and follow the directions you see here. tiZANidine 4 mg tablet Commonly known as: Zanaflex What changed: Another medication with the same name was removed. Continue taking this medication, and follow the directions you see here. traZODone 50 mg tablet Commonly known as: Desyrel What changed: Another medication with the same name was removed. Continue taking this medication, and follow the directions you see here. CONTINUE taking these medications Instructions Last Dose Given Next Dose Due atorvastatin 10 mg tablet Commonly known as: Lipitor Notes to patient: High cholesterol benazepril 20 mg tablet Commonly known as: Lotensin Notes to patient: High blood pressure busPIRone 15 mg tablet Commonly known as: Buspar Notes to patient: Anxiety citalopram 20 mg tablet Commonly known as: CeleXA Notes to patient: Depression famotidine 20 mg tablet Commonly known as: Pepcid Notes to patient: Acid reflux levothyroxine 25 mcg tablet Commonly known as: Synthroid, Levoxyl Notes to patient: Under active thyroid Ozempic 1 mg/dose (4 mg/3 mL) pen injector Generic drug: semaglutide Notes to patient: Diabetes Where to Get Your Medications These medications were sent to [facility] - [place], [place] - [address], [facility] [address] traMADol 50 mg tablet Ivelisse is allergic to sulfa (sulfonamide antibiotics) and latex. Disposition: Home or Self Care () Discharge Condition: Stable Code Status: Full Code Diagnostic Results Hematology: Results from last 7 days Lab Units 11/02/24 0437 11/01/24 0501 10/31/24 0416 10/30/24 0421 WBC AUTO 10*3/uL 6.36 6.00 < > 9.23 HEMOGLOBIN g/dL 13.0 12.2 < > 13.1 HEMATOCRIT % 36.9 34.4* < > 37.3 MCV fL 91.1 91.2 < > 91.6 PLATELETS AUTO 10*3/uL 162 148* < > 165 INR -- -- -- 1.20* < > = values in this interval not displayed. Chemistry: Results from last 7 days Lab Units 11/02/24 0437 11/01/24 0501 10/31/24 0416 10/30/24 0421 10/30/24 0150 SODIUM mmol/L 136 137 136 < > 136 (more content not included)... [facility] 11-03-2024 Note Patient: Ivelisse sofia Procedure Summary Date: 11/03/24 Room / Location: [facility] Anesthesia Start: 1256 Anesthesia Stop: 1323 Procedure: EGD Diagnosis: Right upper quadrant abdominal pain Gastroesophageal reflux disease, unspecified whether esophagitis present Dysphagia, unspecified type Scheduled Providers: Vito Pavon MD; MEDARDO Beltran; Franny Navarro MD Responsible Provider: Vito Pavon MD Anesthesia Type: MAC ASA Status: 3 Anesthesia Type: MAC Vitals Value Taken Time BP 132/73 11/03/24 13:20 Temp 36.1 ???C (97 ???F) 11/03/24 13:20 Pulse 97 11/03/24 13:20 Resp 14 11/03/24 13:20 SpO2 92 % 11/03/24 13:20 Anesthesia Post Evaluation Patient location during evaluation: PACU Patient participation: complete - patient participated Level of consciousness: awake Pain score: 1 Pain management: adequate Airway patency: patent Cardiovascular status: acceptable Respiratory status: acceptable Patient is hemodynamically stable and is able to be discharged from PACU per anesthesia protocol. No notable events documented. [facility] 11-03-2024 Note Patient: Ivelisse sofia Procedure Summary Date: 11/03/24 Room / Location: [facility] Endoscopy Anesthesia Start: 1256 Anesthesia Stop: Procedure: EGD Diagnosis: Right upper quadrant abdominal pain Gastroesophageal reflux disease, unspecified whether esophagitis present Dysphagia, unspecified type Scheduled Providers: Vito Pavon MD; MEDARDO Beltran; Franny Navarro MD Responsible Provider: Vito Pavon MD Anesthesia Type: MAC ASA Status: 3 Anesthesia Post Transport Note Transport to: [facility] PAC[facility] O2 Route: room air Patient Monitor: direct observation Transport: uneventful Patient condition is: stable [facility] 11-03-2024 Note Patient: Ivelisse sofia Procedure Information Date/Time: 11/03/24 1230 Scheduled providers: Vito Pavon MD; MEDARDO Beltran; Franny Navarro MD Procedure: EGD Location: [facility] Endoscopy Relevant Problems Cardio ECHO 2016 Normal left ventricular size and systolic function. Mild tricuspid regurgitation. Left Ventricle Normal left ventricular end-diastolic dimension. Normal left ventricular wall thickness. The estimated left ventricular ejection fraction is 60 - 65%. Normal left ventricular ejection fraction. No regional wall motion abnormalities. Grade I (impaired relaxation) left ventricular diastolic dysfuncton. (+) Primary hypertension Endo (+) Acquired hypothyroidism (+) Type 2 diabetes mellitus without complication, without long-term current use of insulin (CMS/HCC) GI (+) GERD (gastroesophageal reflux disease) /Renal (+) HUY (acute kidney injury) Neuro/Psych Panic attacks Clinical information reviewed: Past Medical History: Diagnosis Date Arthritis Diabetes mellitus (CMS/HCC) Disease of thyroid gland Physical Exam Airway Mallampati: II TM distance: >3 FB Neck ROM: full Cardiovascular - normal exam Dental - normal exam Pulmonary - normal exam Neurological Abdominal Anesthesia Plan ASA 3 MAC The patient is not a current smoker. Patient was not previously instructed to abstain from smoking on day of procedure. Patient did not smoke on day of procedure. intravenous induction Anesthetic plan and risks discussed with patient. Plan discussed with CAA. Additional Equipment Requests [facility] 11-02-2024 Note Poor oral intake, un intentional weight loss. On dietitian. [facility] 11-02-[address] scan of the abdom en did not show pancreatitis or significant intra-abdominal [...] about 2 years ago. Consult general surgery. [facility] 11-02-2024 Note -Continue home meds [place] [facility] 11-02-2024 [facility] on board. EGD josemanuel eduled tomorrow on 11/03/2024. Cleared for regular diet by speech. [facility] 11-02-2024 Note -Continue PPI [facility] 11-02-2024 Note -Continue lipitor [facility] 11-02-2024 Note ISS, ACHS [facility] 11-02-2024 Note On IV Rocephin. Cont inues to experience dysuria. [facility] 11-02-2024 Note Hospital Medicine Daily Progress Note - 11/02/2024 2:13 PM; Room: [address] [place] [address] Admission: 10/29/2024 11:59 PM; Length of stay: 4 days THE HOSPITALIST TEAM PREFERS TO USE [employer] FOR NON-URGENT COMMUNICATION 7AM-7PM. IF I DO NOT RESPOND WITHIN 20 MINUTES OR URGENT MATTERS, PLEASE CALL THROUGH THE CARPET JOURNEYMAN. FROM 7PM-7AM, PLEASE PAGE [phone](COVR). Code Status: Full Code Barriers to Discharge: Ongoing abdominal pain, EGD. Expected Discharge Date: 11/04/2024 Discharge Destination: home Overview Patient is seen for evaluation and management of abdominal pain, weight loss Patient with past medical history of essential hypertension, hyperlipidemia. Subjective Seen and examined. Reports persistent right upper quadrant pain. Reports mild nausea and poor oral intake. No overnight events. Physical Exam Visit Vitals BP 117/69 Pulse 81 Temp 36.2 ???C (97.1 ???F) (Temporal) Resp 19 Intake/Output Summary (Last 24 hours) at 11/02/2024 1413 Last data filed at 11/02/2024 1100 Gross per 24 hour Intake 840 ml Output -- Net 840 ml Physical Exam Constitutional: Appearance: She is normal weight. HENT: Head: Normocephalic and atraumatic. Eyes: Extraocular Movements: Extraocular movements intact. Pupils: Pupils are equal, round, and reactive to light. Cardiovascular: Rate and Rhythm: Normal rate and regular rhythm. Heart sounds: Normal heart sounds. No murmur heard. Pulmonary: Effort: Pulmonary effort is normal. No respiratory distress. Breath sounds: Normal breath sounds. No wheezing. Abdominal: General: Abdomen is flat. There is no distension. Palpations: Abdomen is soft. Tenderness: There is abdominal tenderness. Musculoskeletal: General: Normal range of motion. Skin: General: Skin is warm. Neurological: Mental Status: She is alert and oriented to person, place, and time. Cranial Nerves: No cranial nerve deficit. Motor: No weakness. Psychiatric: Mood and Affect: Mood normal. Thought Content: Thought content normal. Estimated body mass index is 29.38 kg/m??? as calculated from the following: Height as of this encounter: 1.549 m (5' 0.98 ). Weight as of this encounter: 70.5 kg (155 lb 6.8 oz). Assessment and Plan Assessment & Plan Right upper quadrant abdominal pain Hyperbilirubinemia CT scan of the abdomen did not [...] about 2 years ago. Consult general surgery. Acute cystitis On IV Rocephin. Continues to experience dysuria. Primary hypertension -Continue home meds Type 2 diabetes mellitus without complication, without long-term current use of insulin (CMS/HCC) ISS, ACHS Acquired hypothyroidism -Continue levothyroxine HLD (hyperlipidemia) -Continue lipitor GERD (gastroesophageal reflux disease) -Continue PPI Fibromyalgia -Continue home meds Severe protein-calorie malnutrition (CMS/HCC) Poor oral intake, unintentional weight loss. On dietitian. Oropharyngeal dysphagia GI on board. EGD scheduled tomorrow on 11/03/2024. Cleared for regular diet by speech. Case discussed with patient's , patient herself, patient's RN, case management as well as GI fellow. All questions/concerns answered. Nutrition Screen: Clinical Indicators of Malnutrition: reduced energy intake, unintentional weight loss, poor appetite Malnutrition Assessment (Completed by RD) Severe PCM: Acute Illness/Injury: decreased energy intake < 50% for 5 days, >5% involuntary weight loss in 1 month Treatment & Intervention Plan: advance diet as medically feasible, textures per CAFETERIA OR LUNCHROOM CHECKER pending swallow study, vitamin/medication recommendations, check weight, RD to change supplement Nutrition Goals: intake > 75% meals, intake > 75% supplements, maitain visceral protein Malnutrition Attestation: I attest to the following: I have personally seen this patient. The patient has been assessed for malnutrition as documentation above, and based on the criteria set by the Academy of Nutrition and Dietetics and the [place] [employer]al and Parenteral Nutrition, meets the diagnosis for malnutrition. A care plan has been established for this patient. VTE Prophylaxis: Heparin subcutaneous Scheduled Meds atorvastatin, 10 mg, oral, Daily citalopram, 20 mg, oral, Nightly docusate sodium, 100 mg, oral, BID heparin (porcine), 5,000 Units, subcutaneous, BID insulin lispro, 0-10 Units, subcutaneous, TID with meals And insulin lispro, 0-8 Units, subcutaneous, Nightly levothyroxine, 25 mcg, oral, Daily before breakfast pantoprazole, 40 mg, int (more content not included)... [facility] 11-02-2024 Note Gastroenterology/Hep atology Progress Note IDENTIFYING DATA PATIENT: Ivelisse Gee ADMIT DATE: 10/29/2024 TIME OF EVALUATION: 11/02/2024 10:03 AM Reason for Consult: Abdominal pain Admitting Physician: Shaikh Sheridan MD SUBJECTIVE/INTERVAL HISTORY Ivelisse Gee's overnight events were reviewed. Patient seen and evaluated, sitting at edge of bed. She endorses continued RUQ abdominal pain, which has been constant although severity fluctuates. Reports frequent acidic regurgitation, and continued dysphagia as well. MBSS performed this morning, which patient passed. OBJECTIVE MEDICATIONS SCHEDULED: atorvastatin, 10 mg, oral, Daily citalopram, 20 mg, oral, Nightly docusate sodium, 100 mg, oral, BID heparin (porcine), 5,000 Units, subcutaneous, BID insulin lispro, 0-10 Units, subcutaneous, TID with meals And insulin lispro, 0-8 Units, subcutaneous, Nightly levothyroxine, 25 mcg, oral, Daily before breakfast pantoprazole, 40 mg, intravenous, q12h JOSEMANUEL polyethylene glycol, 17 g, oral, BID traZODone, 100 mg, oral, Nightly PRNs: acetaminophen, 650 mg, q6h PRN bisacodyl, 5 mg, Daily PRN glucose, 24 g, q15 min PRN Or dextrose 50 % in water (D50W), 25 g, q15 min PRN melatonin, 5 mg, Nightly PRN morphine, 2 mg, q4h PRN morphine, 4 mg, q4h PRN ondansetron, 4 mg, q8h PRN oxyCODONE-acetaminophen, 1 tablet, q6h PRN tiZANidine, 4 mg, q8h PRN Physical VITALS: BP 114/65 Pulse 79 Temp 36.2 ???C (97.1 ???F) (Temporal) Resp 15 Ht 1.549 m (5' 0.98 ) Wt 70.5 kg (155 lb 6.8 oz) SpO2 98% BMI 29.38 kg/m??? GEN: Alert and oriented x3, NAD CV: Regular rate and rhythm PULM: Breathing comfortably ABD: Soft, non-distended, RUQ tenderness with palpation without guarding or rigidity NEURO: Moves all visualized extremities spontaneously LABS AND IMAGING CBC: Results from last 7 days Lab Units 11/02/24 0437 11/01/24 0501 10/31/24 0416 WBC AUTO 10*3/uL 6.36 6.00 8.05 RBC AUTO 10*6/uL 4.05 3.77* 3.71* HEMOGLOBIN g/dL 13.0 12.2 11.8* HEMATOCRIT % 36.9 34.4* 34.0* MCV fL 91.1 91.2 91.6 RDW % 12.4 12.4 12.6 PLATELETS AUTO 10*3/uL 162 148* 148* PT/INR Results from last 7 days Lab Units 10/30/24 0421 PROTIME Seconds 15.2* INR 1.20* BMP: Results from last 7 days Lab Units 11/02/24 0437 11/01/24 0501 10/31/24 0416 SODIUM mmol/L 136 137 136 POTASSIUM mmol/L 3.8 3.8 4.3 CHLORIDE mmol/L 101 103 104 BUN mg/dL 9 10 12 CREATININE mg/dL 0.86 0.88 0.93 EGFR mL/min/1.73m*2 70.4 68.5 64.1 GLUCOSE mg/dL 126* 124* 99 LFTs: Results from last 7 days Lab Units 11/02/2443611/01/24 05010/31/24 0416 BILIRUBIN TOTAL mg/dL 1.0 0.8 1.0 BILIRUBIN DIRECT mg/dL 0.2 0.2 0.3* ALK PHOS U/L 71 65 63 AST U/L 25 22 22 ALT U/L 26 25 24 ALBUMIN g/dL 4.3 4.1 3.9 TOTAL PROTEIN g/dL 7.1 6.7 6.3 B12/Folate/Iron studies: No results found for: BVRAXMXZ14 , FOLATE , IRON , TIBC , UIBC , IRONSAT , FERRITIN Viral Hepatitis No results found for: HEPAIGM , HAV , HEPBSAG , HEPBSAB , HEPBEAB , HEPBIGM , HEPBCAB , HEPBCOREAB , HBVNAT , HCVSCR , HEPCAB , HCVNAT , HCVPCR , HCVTMA Liver workup No results found for: TL , SMOOTHMUSCAB , CERULOPLSM , A2TQLIQNBNP , TTGA , IGA , TSH , FREET4 , AFP Pancreatitis Lab Results Component Value Date CALCIUM 9.1 11/02/2024 IMAGING: MR abdomen w and wo contrast MRCP 10/30/24: IMPRESSION: *No T2 bright lesions. There is some fatty infiltration of the liver with decreased signal on out of phase images. There is no abnormal enhancement. *Some central intrahepatic biliary ductal dilatation. The common hepatic duct is dilated up to 1 cm. The common bile duct in the head of the pancreas measures 0.94 cm. No fixed stricture or narrowing. No choledocholithiasis. 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 female with PMHx of HTN, HLD, T2DM, hypothyroidism, GERD, fibromyalgia, who presented as a direct admit from [place] [facility] due to acute onset abdominal pain and elevated LFTs. At OSH, labs revealed WBC 12.5, TB 1.6. CT A/P was unremarkable aside from urinary bladder wall thickening and moderate constipation. Patient was transferred to [facility] for further evaluation and management. Assessment Acute onset RUQ abdominal pain Patient reports acute onset RUQ abdominal pain associated with eating, with radiation to right flank. Patient s/p cholecystectomy several years ago Last EGD 06/2023 notable for patchy erythema of stomach; gastric biopsy results not available Lipase and LFTs normal (TB previously mildly elevated at 1.5, now 1.0) MRCP 10/30/24 with findings of common hepatic duct dilated up to 1 cm and CBD in the head of the pancreas measuring 0.94 cm, without evidence of stricture, narrowing, or choledocholithiasis Dysphagia to solids and liquids Patient reports gradual (more content not included)... [facility] 11-02-2024 Note Speech Industrial Illuminating Engineer ology Modified Barium Swallow Study General Information Ordering Physician: Shaikh Sheridan MD Patient Name: Ivelisse Gee Date of : 1950 Date of Evaluation: 11/02/2024 Diet Prior to Study: regular diet with thin liquids Mental Status: Alert, Responsive, Cooperative Respiratory Status: Room air Dentition: Adequate Voice: patient reports hoarse voice Intubated: No Recommendations Diet Recommendation: Regular Diet Liquid Recommendation: Thin liquids Medications: Whole with thin liquids Compensatory Strategies: Small bites/sips, Hips upright at 90 degrees for all PO intake CAFETERIA OR LUNCHROOM CHECKER plan: No further CAFETERIA OR LUNCHROOM CHECKER intervention warranted. CAFETERIA OR LUNCHROOM CHECKER to sign off. Please re-consult as needed. Reason for Referral Patient was referred for an initial MBSS to assess the efficiency of his/her swallow function, rule out aspiration and make recommendations regarding safe dietary consistencies, effective compensatory strategies, and safe eating environment. History of Present Illness 74 year old female admitted 10/29/24 with PMHx of HTN, HLD, T2DM, hypothyroidism, GERD, fibromyalgia, who presented as a direct admit from [place] [facility] due to acute onset abdominal pain and elevated LFTs. Patient reports that approximately 1 week ago she began to experience RUQ abdominal pain, which was worse with eating, without specific food triggers. Pain later radiated into her right flank as well. She also endorses dysphagia to both solids and liquids, which has been gradually worsening the last few months. Associated symptoms include decreased appetite, hoarseness, and weight loss of ~8 lbs. Denies nausea, vomiting, melena, hematochezia. She is taking Protonix daily and Pepcid HS with controlled GERD symptoms. Last EGD was performed in June 2023 with findings of patchy erythema of stomach and a 3 cm hiatal hernia. Consistencies Trialed Liquids: thin liquids via cup and straw Solids: puree, regular solids Oral Preparation / Oral Phase Impaired: No Lip Closure: Within Functional Limites Mastication/Deglutition: Within Functional Limits Bolus Formation/Control: Within Functional Limits Oral Stasis: Not Observed Pharyngeal Phase Impaired: No Swallow Onset: Timely Base of Tongue Retraction: Within Functional Limits Epiglottic Inversion: Within Functional Limits Hyolaryngeal Excursion: Within Functional Limits Pharyngeal Contraction/Stripping Wave: Within Functional Limits Upper Esophageal Sphincter Distention: Within Functional Limits Pharyngeal Stasis: Complete clearance/No stasis Observations/Comments: Pharyngeal phase is within functional limits. Patient demonstrated adequate airway protection - no penetration or aspiration visualized throughout the session. Cervical Esophageal Phase Impaired: Yes Observations/Comments: small Prominent cricopharyngeal muscle (CP bar) near C4-C5, but did not impact UES flow of bolus Penetration-Aspiration Scale Thin: 1. Material does not enter airway. Puree: 1. Material does not enter airway. Solids: 1. Material does not enter airway. Summary Impressions: WFL oropharyngeal swallow Prognosis: excellent Barriers to reach goals: N/A Consulted and Agree with Results and Recommendations: Patient and Physician Education: Patient educated on results and recommendations of the swallow study. They verbalized understanding of all information and stated no further questions. [facility] 11-01-2024 Note Physician Clarificat ion Please review the following and provide your response below. Based on the above documentation, can you please clarify in the medical record whether: --- Severe Protein Calorie Malnutrition is not confirmed and/or has been ruled out --- Severe Protein Calorie Malnutrition has been confirmed (please provide additional supporting information) --- Malnutrition has been confirmed at another specificity (Please specify Mild or Moderate) --- Other (Please specify) --- Clinically unable to determine Additional Notes: --- Severe Protein Calorie Malnutrition has been confirmed. Please refer to documentation by waxer floor which I am in agreement with This documentation will become part of the patient's medical record. [facility] 11-01-2024 Note GI on board. Swallow evaluation pending. [facility] 11-01-2024 Note -Continue PPI [facility] 11-01-2024 Note Poor oral intake, un intentional weight loss. On dietitian. [facility] 11-01-2024 Note -Continue home [facility] 11-01-2024 Note On IV Rocephin. Cont inues to experience dysuria. Started on phenazopyridine [facility] 11-01-2024 Note ISS, ACHS [facility] 11-01-[address] scan of the abdom en did not show pancreatitis or significant intra-abdominal pathology but mild intrahepatic ductal dilation. No obvious mass was seen on CT abdomen pelvis. MRCP was ordered in consultation with GI. MRCP - unclear intrahepatic biliary ductal dilation along with common hepatic duct dilatation. No choledocholithiasis or cholecystitis. Awaiting GI recommendation [facility] 11-01-2024 Note -Continue home meds [facility] 11-01-2024 Note -Continue levothyroxine [facility] 11-01-2024 Note -Continue lipitor [facility] 11-01-2024 Note Hospital Medicine Daily Progress Note - 11/01/2024 12:17 PM; Room: [facility]- Admission: 10/29/2024 11:59 PM; Length of stay: 3 days THE HOSPITALIST TEAM PREFERS TO USE [employer] FOR NON-URGENT COMMUNICATION 7AM-7PM. IF I DO NOT RESPOND WITHIN 20 MINUTES OR URGENT MATTERS, PLEASE CALL THROUGH THE CARPET JOURNEYMAN. FROM 7PM-7AM, PLEASE PAGE [phone](COVR). Code Status: Full Code Barriers to Discharge: GI workup Expected Discharge Date: 11/04/2024 Discharge Destination: home Overview Patient is seen for evaluation and management of abdominal pain, weight loss Patient with past medical history of essential hypertension, hyperlipidemia. Subjective Seen and examined. Reports persistent right upper quadrant pain. Reports mild nausea but no vomiting. Pain is worse with food intake. Reports poor oral intake. Physical Exam Visit Vitals BP 113/57 Pulse 73 Temp 36 ???C (96.8 ???F) (Temporal) Resp 15 Intake/Output Summary (Last 24 hours) at 11/01/2024 1217 Last data filed at 11/01/2024 1000 Gross per 24 hour Intake 170 ml Output -- Net 170 ml Physical Exam Constitutional: Appearance: She is normal weight. HENT: Head: Normocephalic and atraumatic. Mouth/Throat: Pharynx: Oropharynx is clear. Eyes: Extraocular Movements: Extraocular movements intact. Pupils: Pupils are equal, round, and reactive to light. Cardiovascular: Rate and Rhythm: Normal rate and regular rhythm. Pulses: Normal pulses. Heart sounds: Normal heart sounds. Pulmonary: Effort: Pulmonary effort is normal. No respiratory distress. Breath sounds: Normal breath sounds. No wheezing. Abdominal: General: Abdomen is flat. Bowel sounds are normal. Tenderness: There is abdominal tenderness. Musculoskeletal: General: Normal range of motion. Skin: General: Skin is warm. Neurological: General: No focal deficit present. Mental Status: She is alert and oriented to person, place, and time. Mental status is at baseline. Motor: No weakness. Psychiatric: Mood and Affect: Mood normal. Thought Content: Thought content normal. Estimated body mass index is 29.3 kg/m??? as calculated from the following: Height as of this encounter: 1.549 m (5' 0.98 ). Weight as of this encounter: 70.3 kg (154 lb 15.7 oz). Assessment and Plan Assessment & Plan Right upper quadrant abdominal pain Hyperbilirubinemia CT scan of the abdomen did not show pancreatitis or significant intra-abdominal pathology but mild intrahepatic ductal dilation. No obvious mass was seen on CT abdomen pelvis. MRCP was ordered in consultation with GI. MRCP - unclear intrahepatic biliary ductal dilation along with common hepatic duct dilatation. No choledocholithiasis or cholecystitis. Awaiting GI recommendation Acute cystitis On IV Rocephin. Continues to experience dysuria. Started on phenazopyridine Primary hypertension -Continue home meds Type 2 diabetes mellitus without complication, without long-term current use of insulin (CMS/HCC) ISS, ACHS Acquired hypothyroidism -Continue levothyroxine HLD (hyperlipidemia) -Continue lipitor GERD (gastroesophageal reflux disease) -Continue PPI Fibromyalgia -Continue home meds Severe protein-calorie malnutrition (CMS/HCC) Poor oral intake, unintentional weight loss. On dietitian. Oropharyngeal dysphagia GI on board. Swallow evaluation pending. Nutrition Screen: Clinical Indicators of Malnutrition: reduced energy intake, unintentional weight loss, poor appetite Malnutrition Assessment (Completed by RD) Severe PCM: Acute Illness/Injury: decreased energy intake < 50% for 5 days, >5% involuntary weight loss in 1 month Treatment & Intervention Plan: advance diet as medically feasible, textures per CAFETERIA OR LUNCHROOM CHECKER pending swallow study, vitamin/medication recommendations, check weight, RD to change supplement Nutrition Goals: intake > 75% meals, intake > 75% supplements, maitain visceral protein Malnutrition Attestation: I attest to the following: I have personally seen this patient. The patient has been assessed for malnutrition as documentation above, and based on the criteria set by the Academy of Nutrition and Dietetics and the [place] [employer] Enteral and Parenteral Nutrition, meets the diagnosis for malnutrition. A care plan has been established for this patient. VTE Prophylaxis: Heparin subcutaneous Scheduled Meds atorvastatin, 10 mg, oral, Daily citalopram, 20 mg, oral, Nightly docusate sodium, 100 mg, oral, BID heparin (porcine), 5,000 Units, subcutaneous, BID insulin lispro, 0-10 Units, subcutaneous, TID with meals And insulin lispro, 0-8 Units, subcutaneous, Nightly levothyroxine, 25 mcg, oral, Daily before breakfast pantoprazole, 40 mg, intravenous, q12h JOSEMANUEL polyethylene glycol, 17 g, oral, BID traZODone, 100 mg, oral, Nightly Pertinent Investigations Hematology: Results from last 7 days Lab Units 11/01/24 0501 10/31/24 0416 10/30/24 (more content not included)... [facility] 10-31-2024 Note Poor oral intake, un intentional weight loss. On dietitian. [facility] 10-31-2024 Note -Continue PPI [facility] 10-31-[address] scan of the abdom en did not show pancreatitis, no significant intra-abdominal [...] for endoscopic ultrasound and ERCP on Saturday. [facility] 10-31-2024 [facility] -Continue home meds [place] [facility] 10-31-2024 Note On IV Rocephin. Cont inues to experience dysuria. Started on phenazopyridine [facility] 10-31-2024 Note ISS, ACHS [facility] 10-31-2024 Note GI on board. Swallow evaluation pending. [facility] 10-31-2024 Note -Continue lipitor [facility] 10-31-2024 Note Hospital Medicine Daily Progress Note - 10/31/2024 12:47 PM; Room: [address] [place] [address] Admission: 10/29/2024 11:59 PM; Length of stay: 2 days THE HOSPITALIST TEAM PREFERS TO USE [employer] CHAT FOR NON-URGENT COMMUNICATION 7AM-7PM. IF I DO NOT RESPOND WITHIN 20 MINUTES OR URGENT MATTERS, PLEASE CALL THROUGH THE CARPET JOURNEYMAN. FROM 7PM-7AM, PLEASE PAGE [phone](COVR). Code Status: Full Code Barriers to Discharge: EUS/ERCP Expected Discharge Date: 11/04/24 Discharge Destination: home Overview Patient is seen for evaluation and management of abdominal pain, weight loss Patient with past medical history of essential hypertension, hyperlipidemia. Subjective Seen and examined. Reports persistent abdominal pain. She also reports dysphagia and that she has been having difficulty swallowing for some time now. Mild nausea but no vomiting. Denies diarrhea. Physical Exam Visit Vitals BP 113/59 (BP Location: Left arm, Patient Position: Lying) Pulse 81 Temp 36.5 ???C (97.7 ???F) (Temporal) Resp 11 Intake/Output Summary (Last 24 hours) at 10/31/2024 1247 Last data filed at 10/31/2024 0229 Gross per 24 hour Intake 298.75 ml Output -- Net 298.75 ml Physical Exam Constitutional: General: She is not in acute distress. Appearance: Normal appearance. She is normal weight. HENT: Head: Normocephalic and atraumatic. Mouth/Throat: Mouth: Mucous membranes are moist. Pharynx: Oropharynx is clear. Cardiovascular: Rate and Rhythm: Normal rate and regular rhythm. Pulses: Normal pulses. Heart sounds: Normal heart sounds. Pulmonary: Effort: Pulmonary effort is normal. No respiratory distress. Breath sounds: Normal breath sounds. No wheezing. Abdominal: General: Abdomen is flat. Bowel sounds are normal. Palpations: Abdomen is soft. Tenderness: There is abdominal tenderness. Skin: General: Skin is warm. Neurological: Mental Status: She is oriented to person, place, and time. Cranial Nerves: No cranial nerve deficit. Motor: No weakness. Psychiatric: Mood and Affect: Mood normal. Thought Content: Thought content normal. Estimated body mass index is 27.22 kg/m??? as calculated from the following: Height as of this encounter: 1.549 m (5' 0.98 ). Weight as of this encounter: 65.3 kg (143 lb 15.4 oz). Assessment and Plan Assessment & Plan Right upper quadrant abdominal pain Hyperbilirubinemia CT scan of the abdomen did not [...] for endoscopic ultrasound and ERCP on Saturday. Acute cystitis On IV Rocephin. Continues to experience dysuria. Started on phenazopyridine Primary hypertension -Continue home meds Type 2 diabetes mellitus without complication, without long-term current use of insulin (CMS/HCC) ISS, ACHS Acquired hypothyroidism -Continue levothyroxine HLD (hyperlipidemia) -Continue lipitor GERD (gastroesophageal reflux disease) -Continue PPI Fibromyalgia -Continue home meds Severe protein-calorie malnutrition (CMS/HCC) Poor oral intake, unintentional weight loss. On dietitian. Oropharyngeal dysphagia GI on board. Swallow evaluation pending. Nutrition Screen: Clinical Indicators of Malnutrition: reduced energy intake, unintentional weight loss, poor appetite Malnutrition Assessment (Completed by RD) Severe PCM: Acute Illness/Injury: decreased energy intake < 50% for 5 days, >5% involuntary weight loss in 1 month Treatment & Intervention Plan: advance diet as medically feasible, textures per CAFETERIA OR LUNCHROOM CHECKER pending swallow study, vitamin/medication recommendations, check weight, RD to change supplement Nutrition Goals: intake > 75% meals, intake > 75% supplements, maitain visceral protein Malnutrition Attestation: I attest to the following: I have personally seen this patient. The patient has been assessed for malnutrition as documentation above, and based on the criteria set by the Academy of Nutrition and Dietetics and the [place] [employer] Enteral and Parenteral Nutrition, meets the diagnosis for malnutrition. A care plan has been established for this patient. VTE Prophylaxis: Heparin subcutaneous Scheduled Meds atorvastatin, 10 mg, oral, Daily cefTRIAXone, 1 g, intravenous, q24h citalopram, 20 mg, oral, Nightly insulin lispro, 0-10 Units, subcutaneous, TID with meals And insulin lispro, 0-8 Units, subcutaneous, Nightly levothyroxine, 25 mcg, oral, Daily before breakfast pantoprazole, 40 mg, intravenous, q24h JOSEMANUEL traZODone, 100 mg, oral, Nightly Pertinent Investigations Hematology: R (more content not included)... [facility] 10-31-2024 Note Initial Gastroenterology/Hepatology Consultation Note IDENTIFYING DATA PATIENT: Ivelisse Gee ADMIT DATE: 10/29/2024 TIME OF EVALUATION: 10/31/2024 11:09 AM Reason for Consult: Abdominal pain Admitting Physician: Shaikh Sheridan MD HISTORY OF PRESENT ILLNESS Ivelisse Gee is a 74 y.o. female with PMHx of HTN, HLD, T2DM, hypothyroidism, GERD, fibromyalgia, who presented as a direct admit from [facility] due to acute onset abdominal pain and elevated LFTs. At OSH, labs revealed WBC 12.5, TB 1.6. CT A/P was unremarkable aside from urinary bladder wall thickening and moderate constipation. Patient was transferred to [facility] for further evaluation and management. Patient reports that approximately 1 week ago she began to experience RUQ abdominal pain, which was worse with eating, without specific food triggers. Pain later radiated into her right flank as well. She also endorses dysphagia to both solids and liquids, which has been gradually worsening the last few months. Associated symptoms include decreased appetite, hoarseness, and weight loss of ~8 lbs. Denies nausea, vomiting, melena, hematochezia. She is taking Protonix daily and Pepcid HS with controlled GERD symptoms. Unsure of NSAID use. Last EGD was performed in June 2023 with findings of patchy erythema of stomach and a 3 cm hiatal hernia. Patient is a non-smoker and denies EtOH use. MRCP performed 10/30/24 with findings of common hepatic duct dilated up to 1 cm and CBD in the head of the pancreas measuring 0.94 cm, without evidence of stricture, narrowing, or choledocholithiasis. LFTs this morning are unremarkable. GI HISTORY SUMMARY TABLE Last EGD 06/2023 Findings: Z-line irregular at 35 cm Non obstructing Schatzki's ring LA grade A esophagitis Hiatal hernia measuring 3 cm Widely open GE valve Patchy erythema of stomach consistent with mild gastropathy s/p bx Normal examined duodenum s/p bx Last colonoscopy 2016 Impression: - The entire examined colon is normal. Primary GI physician PAST MEDICAL, SURGICAL, FAMILY, and SOCIAL HISTORY Past Medical History: Medical History[1] Past Surgical History: Surgical History[2] Family History: Family History[3] Social History: Social History[4] Allergies: Allergies[5] MEDICATIONS Home Medications: Prior to Admission medications Medication Sig Start Date End Date Taking? Authorizing Provider atorvastatin (Lipitor) 10 mg tablet Take 10 mg by mouth in the morning. Yes Historical Provider, benazepril (Lotensin) 20 mg tablet Take 1 tablet by mouth in the morning. 01/01/17 Yes Historical Provider, busPIRone (Buspar) 15 mg tablet Take 15 mg by mouth if needed each day. 08/06/24 Yes Historical Provider, citalopram (CeleXA) 20 mg tablet Take 20 mg by mouth in the morning. Yes Historical Provider, famotidine (Pepcid) 20 mg tablet Take 20 mg by mouth two times daily. Yes Historical Provider, levothyroxine (Synthroid, Levoxyl) 25 mcg tablet Take 25 mcg by mouth before breakfast. Yes Historical Provider, Ozempic 1 mg/dose (4 mg/3 mL) pen injector Inject 1 mg under the skin 1 (one) time per week. Yes Historical Provider, pantoprazole (ProtoNix) 40 mg EC tablet Take 40 mg by mouth before breakfast. Do not crush, chew, or split. Yes Historical Provider, pantoprazole (ProtoNix) 40 mg EC tablet Take 40 mg by mouth in the morning. 10/23/23 Yes Historical Provider, tiZANidine (Zanaflex) 4 mg capsule Take 4 mg by mouth at bedtime. Yes Historical Provider, tiZANidine (Zanaflex) 4 mg tablet Take 4 mg by mouth if needed each day. 11/04/22 Yes Historical Provider, traZODone (Desyrel) 100 mg tablet Take 100 mg by mouth at bedtime. Yes Historical Provider, traZODone (Desyrel) 50 mg tablet Take 1 tablet by mouth in the morning. 01/01/17 Yes Historical Provider, Current Medications: atorvastatin, 10 mg, oral, Daily cefTRIAXone, 1 g, intravenous, q24h citalopram, 20 mg, oral, Nightly insulin lispro, 0-10 Units, subcutaneous, TID with meals And insulin lispro, 0-8 Units, subcutaneous, Nightly levothyroxine, 25 mcg, oral, Daily before breakfast pantoprazole, 40 mg, intravenous, q24h JOSEMANUEL traZODone, 100 mg, oral, Nightly PRNs: acetaminophen, 650 mg, q6h PRN glucose, 24 g, q15 min PRN Or dextrose 50 % in water (D50W), 25 g, q15 min PRN melatonin, 5 mg, Nightly PRN morphine, 2 mg, q4h PRN morphine, 4 mg, q4h PRN phenazopyridine, 100 mg, TID PRN tiZANidine, 4 mg, q8h PRN REVIEW OF SYSTEMS See HPI, otherwise ROS negative as below CONSTITUTIONAL: negative HEENT: negative RESPIRATORY: negative CARDIOVASCULAR: negative GASTROINTESTINAL: as in HPI GENITOURINARY: negative OBJECTIVE DATA Vitals: BP 113/59 (BP Location: Left arm, Patient Position: Lying) Pulse 81 Temp 36.5 ???C (97.7 ???F) (Temporal) Resp 11 Ht 1.549 m (5' 0.98 ) Wt 65.3 kg (143 lb 15.4 oz) SpO2 93% BMI 27.22 kg/ (more content not included)... [facility] 10-31-2024 Note Initial Gastroenterology/Hepatology Consultation Note IDENTIFYING DATA PATIENT: Ivelisse Gee ADMIT DATE: 10/29/2024 TIME OF EVALUATION: 10/31/2024 11:09 AM Reason for Consult: Abdominal pain Admitting Physician: Shaikh Sheridan MD HISTORY OF PRESENT ILLNESS Ivelisse Gee is a 74 y.o. female with PMHx of HTN, HLD, T2DM, hypothyroidism, GERD, fibromyalgia, who presented as a direct admit from [place] ER due to acute onset abdominal pain and elevated LFTs. At OSH, labs revealed WBC 12.5, TB 1.6. CT A/P was unremarkable aside from urinary bladder wall thickening and moderate constipation. Patient was transferred to [facility] for further evaluation and management. Patient reports that approximately 1 week ago she began to experience RUQ abdominal pain, which was worse with eating, without specific food triggers. Pain later radiated into her right flank as well. She also endorses dysphagia to both solids and liquids, which has been gradually worsening the last few months. Associated symptoms include decreased appetite, hoarseness, and weight loss of ~8 lbs. Denies nausea, vomiting, melena, hematochezia. She is taking Protonix daily and Pepcid HS with controlled GERD symptoms. Unsure of NSAID use. Last EGD was performed in June 2023 with findings of patchy erythema of stomach and a 3 cm hiatal hernia. Patient is a non-smoker and denies EtOH use. MRCP performed 10/30/24 with findings of common hepatic duct dilated up to 1 cm and CBD in the head of the pancreas measuring 0.94 cm, without evidence of stricture, narrowing, or choledocholithiasis. LFTs this morning are unremarkable. GI HISTORY SUMMARY TABLE Last EGD 06/2023 Findings: Z-line irregular at 35 cm Non obstructing Schatzki's ring LA grade A esophagitis Hiatal hernia measuring 3 cm Widely open GE valve Patchy erythema of stomach consistent with mild gastropathy s/p bx Normal examined duodenum s/p bx Last colonoscopy 2016 Impression: - The entire examined colon is normal. Primary GI physician PAST MEDICAL, SURGICAL, FAMILY, and SOCIAL HISTORY Past Medical History: Medical History[1] Past Surgical History: Surgical History[2] Family History: Family History[3] Social History: Social History[4] Allergies: Allergies[5] MEDICATIONS Home Medications: Prior to Admission medications Medication Sig Start Date End Date Taking? Authorizing Provider atorvastatin (Lipitor) 10 mg tablet Take 10 mg by mouth in the morning. Yes Historical Provider, benazepril (Lotensin) 20 mg tablet Take 1 tablet by mouth in the morning. 01/01/17 Yes Historical Provider, busPIRone (Buspar) 15 mg tablet Take 15 mg by mouth if needed each day. 08/06/24 Yes Historical Provider, citalopram (CeleXA) 20 mg tablet Take 20 mg by mouth in the morning. Yes Historical Provider, famotidine (Pepcid) 20 mg tablet Take 20 mg by mouth two times daily. Yes Historical Provider, levothyroxine (Synthroid, Levoxyl) 25 mcg tablet Take 25 mcg by mouth before breakfast. Yes Historical Provider, Ozempic 1 mg/dose (4 mg/3 mL) pen injector Inject 1 mg under the skin 1 (one) time per week. Yes Historical Provider, pantoprazole (ProtoNix) 40 mg EC tablet Take 40 mg by mouth before breakfast. Do not crush, chew, or split. Yes Historical Provider, pantoprazole (ProtoNix) 40 mg EC tablet Take 40 mg by mouth in the morning. 10/23/23 Yes Historical Provider, tiZANidine (Zanaflex) 4 mg capsule Take 4 mg by mouth at bedtime. Yes Historical Provider, tiZANidine (Zanaflex) 4 mg tablet Take 4 mg by mouth if needed each day. 11/04/22 Yes Historical Provider, traZODone (Desyrel) 100 mg tablet Take 100 mg by mouth at bedtime. Yes Historical Provider, traZODone (Desyrel) 50 mg tablet Take 1 tablet by mouth in the morning. 01/01/17 Yes Historical Provider, Current Medications: atorvastatin, 10 mg, oral, Daily cefTRIAXone, 1 g, intravenous, q24h citalopram, 20 mg, oral, Nightly insulin lispro, 0-10 Units, subcutaneous, TID with meals And insulin lispro, 0-8 Units, subcutaneous, Nightly levothyroxine, 25 mcg, oral, Daily before breakfast pantoprazole, 40 mg, intravenous, q24h JOSEMANUEL traZODone, 100 mg, oral, Nightly PRNs: acetaminophen, 650 mg, q6h PRN glucose, 24 g, q15 min PRN Or dextrose 50 % in water (D50W), 25 g, q15 min PRN melatonin, 5 mg, Nightly PRN morphine, 2 mg, q4h PRN morphine, 4 mg, q4h PRN phenazopyridine, 100 mg, TID PRN tiZANidine, 4 mg, q8h PRN REVIEW OF SYSTEMS See HPI, otherwise ROS negative as below CONSTITUTIONAL: negative HEENT: negative RESPIRATORY: negative CARDIOVASCULAR: negative GASTROINTESTINAL: as in HPI GENITOURINARY: negative OBJECTIVE DATA Vitals: BP 113/59 (BP Location: Left arm, Patient Position: Lying) Pulse 81 Temp 36.5 ???C (97.7 ???F) (Temporal) Resp 11 Ht 1.549 m (5' 0.98 ) Wt 65.3 kg (143 lb 15.4 oz) SpO2 93% BMI 27.22 kg/ (more content not included)... [facility] 10-31-2024 Note Case was discussed w Diaferon the ANITA on 10/29/2024. I agree with the history, physical, assessment, and plan of care. I discussed the findings and therapeutic plan. I agree with the documentation, except for any updates below. Gary Donnelly MD [facility] 10-30-2024 Note 10/30/24 1650 Admission Assessment Questions Verify insurance with patient Yes Do you understand medical disease or what brought you into the hospital? Yes Who is your current PCP? Carmen Conley MD Can I schedule a follow up appointment for you at the time of discharge? No Does patient qualify for Complex Care Management Enrollment? No Do you understand why you are taking your current medications? Yes Are you taking your medications as prescribed? Yes Did patient provide teach back? No Pharmacy Bedside Delivery Status Interested Does the patient have a case resource manager assigned to them through their insurance? No Living Arrangement (Current/Prior to Hospitalization) Private residence Does the patient have history of HHC or SNF? No Assistive Device Not applicable Patient's goal for discharge home Was patient reminded that goal for discharge is 11am? No Does the patient have transportation at discharge? Yes Type of Residence Private residence Is PT/OT appropriate? No Is PT/OT ordered? No Is SW consult appropriate? No Is SW consult ordered? No Do you understand the benefits of MyChart? Yes Were you able to send link and activate MyChart? No 10/30 Admitted for RUQ abdominal pain, NPO with tentative plan for MRCP to r/o choledocholithiasis. GI consulted, pt c/o dysphagia and may need EGD. Initiated on IV abx for UTI, Bcx pending. IVFs for HUY. From home with spouse. [facility] 10-30-2024 Note History: Oropharynge al dysphagia Exam: Swallow motility study Procedure: Patient's swallowing mechanism observed in conjunction with speech pathology with multiple consistencies of barium. Air Kerma: 5.95 mGY. Findings: There is no aspiration or laryngeal penetration or significant residual. Incidental prominent cricopharyngeus. IMPRESSION: Impression: 1. No aspiration See Speech Pathology report for more details and recommendations. Electronically signed: Edilberto Jenkins. [facility] 10-30-2024 Note Adult Nutrition Asse ssment: Name: Ivelisse Gee Date: 1950 Date of Visit: 10/30/24 Admission Dx: Right upper quadrant abdominal pain [R10.11] Reason for assessment: high risk Information obtained from: patient and medical record Medical History[1] Current Medications: [START ON 10/31/2024] atorvastatin, 10 mg, oral, Daily cefTRIAXone, 1 g, intravenous, q24h [START ON 10/31/2024] citalopram, 20 mg, oral, Daily [START ON 10/31/2024] levothyroxine, 25 mcg, oral, Daily before breakfast pantoprazole, 40 mg, intravenous, q24h JOSEMANUEL potassium chloride CR, 40 mEq, oral, Once traZODone, 100 mg, oral, Nightly sodium chloride, 75 mL/hr, Last Rate: 75 mL/hr (10/30/24 1202) Labs: 0 Lab Value Date/Time BUN 13 10/30/2024420 CREATININE 0.99 10/30/2024420 NA 137 10/30/2024420 K 3.4 (L) 10/30/2024420 PHOS 2.8 10/30/2024149 MG 2.0 10/30/2024 015 HGB 13.1 10/30/2024420 WBC 9.23 10/30/2024420 Allergies: Allergies[2] Nutrition Problems: Swallowing Assessment: Hx difficulty swallowing over the past month. Saw ENT 10/12/24. Planned outpatient MBSS next Saturday per the patient. Mouth: pt denies chewing difficulty Abdominal Assessment: RUQ pain, worse with eating I/O: Net fluid: +821ml Appetite: Poor Cognition: AO x4 Nutrition Deficits Prior to Admission: Calories and protein Skin Integrity: intact Edema: None noted Nutrition Data/Clinical Indicators of Nutrition Status: Height: 154.9 cm (5' 0.98 ) Weight: 65.3 kg (143 lb 15.4 oz) BMI (Calculated): 27.22 Wt Readings from Last 10 Encounters: 10/30/24 65.3 kg (143 lb 15.4 oz) 69.4kg 10/12/24 IBW: 47.7 kg Weight change: Patient reports her weight decreased from 153lbs to 143lbs over the past few weeks. -10lbs within one month per patient report % weight change: -6.5% Severity of weight change: severe Nutrition Assessment: 10/30/24: The patient was seen today for high risk nutrition assessment due to decreased oral intakes and weight loss. She reports dysphagia and RUQ pain, especially after eating for several weeks. Has seen ENT, and has an upcoming MBSS appointment. States she has been only eating oatmeal and popsicles for >10days. Does not use oral nutrition supplements. Takes a daily MVI. Usually follows a low sugar, regular diet. States lately her blood sugar has been dropping. She agrees to try boost supplements daily once her diet is advanced. Dietary Orders (From admission, onward) Start Ordered 10/30/24136 Diet NPO Diet effective now Comments: Sips with medications Question: Reason for NPO: Answer: Operation/Procedure 10/30/24136 Nutrition Risk: High Nutrition Needs: Needs based on: ideal body weight (47.7 kg) Calorie needs: 0255-2912 kcals/day based on 25-30 kcal/kg Protein needs: 48-57 g/day based on 1-1.2 g/kg Fluid needs: 1431 ml/day based on 30 ml/kg Nutrition Diagnosis: Severe PCM r/t acute illness as evidenced by >5% weight loss in 1 month and <50% energy intake compared to estimated energy needs for 5 days. Malnutrition Assessment: Assessment Reason for Referral: high risk Nutrition information obtained from:: Patient Clinical Indicators of Malnutrition: reduced energy intake, unintentional weight loss, poor appetite Malnutrition Assessment (Completed by RD) Severe PCM: Acute Illness/Injury: decreased energy intake < 50% for 5 days, >5% involuntary weight loss in 1 month Nutritional Problems: Swallowing:: Dysphagia Abdominal:: Abdominal pain Nutrition Treatment and Intervention Plan Treatment & Intervention Plan: advance diet as medically feasible, textures per CAFETERIA OR LUNCHROOM CHECKER pending swallow study, vitamin/medication recommendations, check weight, RD to change supplement Nutrition Goals: intake > 75% meals, intake > 75% supplements, maitain visceral protein Treatment Plan: Diet: Recommend diabetic, soft diet Recommend ordering MBSS Supplements: Boost glucose control BID 8oz (190kcal, 16g protein each) Recommend daily MVI Monitor weight daily Monitor nutrition labs: potassium, phosphorus and magnesium. Goals: Tolerate diet advancements Adequate po intakes (kcals and protein); >75% meals Adherence/tolerance to ONS; >75% supplements No significant unintentional wt loss Maintain visceral protein To reach the Clinical Dietitian, please utilize [employer] chat Saturday-Saturday from 8AM-4PM or call extension [phone]. For weekends (Saturday-Saturday) and holidays, the Clinical Dietitian can be reached via pager ([phone]) from 9AM-3PM. The Clinical Nutrition Department is unable to respond to [employer]LO[employer] chat messages on Sundays and hols. [1] Past Medical History: Diagnosis Date Arthritis Diabetes mellitus (CMS/HCC) Disease of thyroid gland [2] Not on File [facility] 10-30-2024 Note -Continue lipitor [facility] 10-30-2024 Note -BUN 11, Creatinine 1.05, GFR 50 -IV fluids, repeat BMP pending [facility] 10-30-2024 Note -Continue home meds [facility] 10-30-2024 Note -Continue PPI [facility] 10-30-2024 Note -Continue levothyroxine [facility] 10-30-2024 Note ISS, ACHS [facility] 10-30-2024 Note -CT of the abdomen w as completed showing no acute inflammatory changes, cholecystectomy changes, urinary bladder wall thickening, moderate constipation. -Hyperbilirubinemia with total bili at 1.6 -NPO for MRCP/ERCP -GI consult -Patient also complaining of difficulty swallowing, will consult speech therapy, possible EGD needed [facility] 10-30-2024 Note -Begin rocephin [facility] 10-30-2024 Note Hospital Medicine History and Physical 10/30/2024 1:51 AM THE HOSPITALIST TEAM PREFERS TO USE [employer] FOR NON-URGENT COMMUNICATION 7AM-7PM. IF I DO NOT RESPOND WITHIN 20 MINUTES OR URGENT MATTERS, PLEASE CALL THROUGH THE CARPET JOURNEYMAN. FROM 7PM-7AM, PLEASE PAGE [phone](COVR). Chief Complaint Direct admission from [facility] with abdominal pain History of Present Illness Ivelisse Gee is an 74 y.o. female who came from home with past medical history of hypertension, DM2, hypothyroidism, hyperlipidemia, GERD, fibromyalgia presents as a direct admission with chief complaint of abdominal pain. Patient reports that around 6 days ago she began to have right upper quadrant belly pain that was worse with eating. She reports several days later it began to radiate into her right flank. Patient denies nausea and vomiting. She does endorse increased difficulty swallowing that seems to be associated with her symptoms. She does state that she has had her gallbladder removed. She also endorses increased urinary frequency. At [facility] labs were completed showing WBC 12.5, RBC 4.73, hemoglobin 15.3, medic at 42.8, platelet count 239, BUN 11, creatinine 1.05, lactate 2.2, magnesium 1.9, total bilirubin 1.6, AST 34, ALT 52. UA does show a small amount of leukocyte Esterace. CT of the abdomen was completed showing no acute inflammatory changes, cholecystectomy changes, urinary bladder wall thickening, moderate constipation. Due to elevated bilirubin level, patient was transferred [facility] for possible MRCP/ERCP. Review of System and Physical Exam Temp: [36.6 ???C (97.8 ???F)] 36.6 ???C (97.8 ???F) BP: (137)/(78) 137/78 Physical Exam Vitals reviewed. Constitutional: Appearance: She is normal weight. HENT: Head: Normocephalic. Nose: Nose normal. Mouth/Throat: Pharynx: Oropharynx is clear. Eyes: Conjunctiva/sclera: Conjunctivae normal. Cardiovascular: Rate and Rhythm: Normal rate. Pulses: Normal pulses. Heart sounds: Normal heart sounds. Pulmonary: Effort: Pulmonary effort is normal. Breath sounds: Normal breath sounds. Abdominal: General: There is distension. Tenderness: There is abdominal tenderness. There is guarding. Musculoskeletal: General: Normal range of motion. Skin: General: Skin is warm and dry. Capillary Refill: Capillary refill takes less than 2 seconds. Neurological: General: No focal deficit present. Mental Status: She is alert and oriented to person, place, and time. Mental status is at baseline. Psychiatric: Mood and Affect: Mood normal. Review of Systems Constitutional: Positive for appetite change and fatigue. Negative for chills, diaphoresis and fever. HENT: Negative for congestion and dental problem. Respiratory: Negative for chest tightness and shortness of breath. Gastrointestinal: Positive for abdominal pain and constipation. Negative for blood in stool, diarrhea, nausea and vomiting. Genitourinary: Positive for frequency. Negative for difficulty urinating and dyspareunia. Musculoskeletal: Negative for arthralgias and back pain. Skin: Negative for color change and pallor. Neurological: Negative for dizziness, seizures,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 Attending Provider Active Start: June 29, 2024 End: June 29, 2024 Team Status: Inactive Member Role Status Dates Carmen Conley MD Primary Care Provide r, Attending Provider Active Start: September 10, 2024 End: September 10, 2024 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 Start Date End Date Carmen Conley MD [address] [place] [address] PCP - General Family Medicine 10/12/24 Team Status: Inactive Member Role Status Dates Carmen Conley MD Primary Care Provider Active Start: September 10, 2024 End: September 10, 2024 Carmen Conley MD Attending Provider Active St art: September 10, 2024 End: September 10, 2024 Team Status: Active Member Role Status Dates Carmen Conley MD Primary Care Provider Active Start: September 25, 2024 Carmen Conley MD Attending Provider Active St art: September 25, 2024 Team Status: Inactive Member Role Status Dates Carmen Conley MD Primary Care Provider Active Start: September 29, 2024 End: September 29, 2024 Carmen Conley MD Attending Provider Active St art: September 29, 2024 End: September 29, 2024 Team Status: Inactive Member Role Status Dates Carmen Conley MD Primary Care Provider Active Start: October 29, 2024 End: October 29, 2024 Carmen Conley MD Attending Provider Active St art: October 29, 2024 End: October 29, 2024 Team Status: Inactive Member Role Status Dates Preet Melchor MD Attending Provider Active Start : October 29, 2024 End: October 29, 2024 Team Status: Active Member Role Status Dates Treva Sellers CMA Attending Provider Active Start: November 04, 2024 Team Status: Inactive Member Role Status Dates Carmen Conley MD Primary Care Provider Active Start: November 13, 2024 End: November 13, 2024 Carmen Conley MD Attending Provider Active St art: November 13, 2024 End: November 13, 2024 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 [employer] provides no warranty or guarantee of the accuracy or completeness of information in this document.
[2024-12-05 13:08] LABS: Anti-CCP Ab, IgG/IgA 8 units (0-19)
== END 2024-12-04 12:44 | disposition home or self-care (01) ==
LOC: LAB 12:45
PROVIDERS: PCP Family Medicine
DX: M19.90 Unspecified osteoarthritis, unspecified site (principal)
CPT/HCPCS: 36415; 85652; 86038; 86140; 86200; 86431

== ENCOUNTER 2025-02-05 08:41 | Outpatient (OUT) | payer MEDICARE, OTHER, SELFPAY ==
--- OUTSIDE RECORDS SUMMARY | 2025-02-05 08:46 | XMS_ITS | Clinical Summary ---
Author Organization [facility] Healthcare Address [address] [place] [address] Care Team Providers Care Rn Case Mgr Name Role Phone Flor Mosqueda MD Primary Care Provider [phone] Allergies Active AllergyReactionsCriticalityNoted CsntBhowbdprMudwoQrbdCumcjh07/01/2017 Other Reaction(s): (Rash) or (C/O a rash), Not available, Unknown Only bandaids Xqipttpiavb50/27/2023 Other Reaction(s): myalgias (muscle pain), other Sulfa AntibioticsAnaphylaxis,NkdaBdwa16/31/2017 Other Reaction(s): Hives, Not available, respiratory distress Medications MedicationSigDispense QuantityRefillsLast FilledStart DateEnd DateStatus tiZANidine (Zanaflex) 4 MG tablet Take 4 mg by mouth as needed at rukbicz0111/04/2022ctive levothyroxine (Synthroid, Levoxyl) 50 MCG tablet Take 1 tablet by mouth DailyActive benazepril (Lotensin) 20 MG tablet Take 1 tablet by mouth DailyActive traZODone (Desyrel) 50 MG tablet Take 1 tablet by mouth DailyActive citalopram (CeleXA) 40 MG tablet Take 1 tablet by mouth DailyActive semaglutide (Ozempic, 0.25 or 0.5 MG/DOSE,) 2 MG/1.5ML solution pen-injector Active LORazepam (Ativan) 0.5 MG tablet Active minocycline 100 MG capsule Indications:Perioral dermatitisTake 1 capsule, by mouth, once daily, 30 days 30 capsule 03/04/2023ctive clindamycin (Cleocin T) 1 % lotion Indications:Acne vulgarisApply to face daily/30 day supply 60 mL 11004/16/2023ctive hydrocortisone 2.5 % cream Indications:Other seborrheic dermatitisApply topically 2 (two) times a day as needed (Rash) 60 g 1114Active hydrocortisone 2.5 % cream Indications:Psoriasis vulgarisApply topically 2 (two) times a day as needed (Rash) Apply thin layer to affected areas bid prn forflares 30 g 5Active fluocinonide (Lidex) 0.05 % external solution Indications:Psoriasis vulgarisApply to affected areas on the scalp, up to twice a day when flared, 30 day supply 60 mL 1105Active busPIRone (Buspar) 15 MG tablet 08/06/2024tive pantoprazole (ProtoNix) 40 MG EC tablet Take 40 mg by mouth Daily10/23/2023ctive citalopram (CeleXA) 20 MG tablet 08/29/2024tive famotidine (Pepcid) 20 MG tablet Indications:LPRD (laryngopharyngeal reflux disease)Take 1 tablet (20 mg) by mouth at bedtime 90 tablet 5Active Active Problems ProblemNoted DateDiagnosed DateAbnormal findings on diagnostic imaging of urinary yytafl4710/12/2024 Overview (10/12/2024): MRI revealed left renal lesion consistent with a cyst, May 2015 and liver lesion stable from 2012. Gzxwcqbh38/07/2025Internal derangement of left jeegjlth85/07/2025Migraine gzytkxyv10/07/2025Nonalcoholic fatty liver10/12/2024 Overview (10/12/2024): LFTs increasing, recommed GI referral at next OV Benign essential qfivspfwzqwb96/07/2025Renal mass10/12/2024Tear of left rotator cuff10/12/2024Ventricular ibrpppulftc25/30/2024Mixed anxiety and depressive zybtdipe89/19/2022bnormal results of liver function lrwsrzp0003/25/2018Encounter for general adult medical examination without abnormal qgqqauyj79/18/2018Liver cyst03/25/2018Multiple renal cysts03/25/2018Steatosis of liver03/25/2018 Persistent cough04/19/20176590Mnvvshuhxucwlz83/22/2017Pain in joint of left shoulder 02/05/2017Shortness of xnsuls2911/21/20161106Siezjku31/08/2017GERD (gastroesophageal reflux disease)11/13/20168233Acnrfdigvswmxx04/08/2017Family history of colon cancer 09/13/2016Fibromyalgia, udxpuqs5509/13/2016History of colon rsthtx9109/13/2016Type 2 diabetes jmhoneao65/08/2017 Overview (10/12/2024): 8.2%, prev 7.2%, 02/2016 foot exam 06/2017 DM eye exam Dyslipidemia due to type 2 diabetes dvgkhxox62/23/2017 Overview (10/12/2024): LDL 115, trig 408 Wbalhzltp69/10/2016Solitary pulmonary otcwux1401/16/20164253Kmqluisygw86/01/2016 Overview (10/12/2024): DEXA -2.2 Encounters DateTypeDepartmentCare ZbaeKmejqbfregd65/21/2025Telephone [facility] [address] [place] [address] Bela Canales MD swallow test appt follow upfrom Last 3 Months Family History Medical HistoryRelationNameCommentsDiabetesMotherHypertensionMotherMelanomaNeg HxRelationNameStatusCommentsFatherDeceasedMotherDeceased Social History Tobacco UseTypesPacks/DayYears UsedDateSmoking Tobacco: NeverSmokeless Tobacco: Never Tobacco Cessation:Counseling Given: Not Answered Alcohol UseStandard Drinks/WeekCommentsNever0 (1 standard drink = 0.6 oz pure alcohol)CommentsUnknownSex and Gender InformationValueDate RecordedSex Assigned at BirthNot on fileLegal FrrRwxuue85/15/2023 7:03 PM EDTGender Identity Not on fileSexual OrientationNot on file Last Filed Vital Signs Vital SignReadingTime TakenCommentsBlood Nmclkntz234/7107 8:33 AM EDT Eerur845510/12/2024 8:33 AM EDTTemperature--Respiratory Rate--Oxygen Saturation-- Inhaled Oxygen Concentration--Hdpygc44.4 kg (153 lb)10/12/2024 8:33 AM EDTHeight 154.9 cm (5' 1 )10/12/2024 8:33 AM EDTBody Mass Index28.9110/12/2024 8:33 AM EDT Plan of Treatment [place] [address] Care Teams Team MemberRelationshipSpecialtyStart DateEnd Date Flor Mosqueda MD [address] [place] [id number] PCP - GeneralFamily Medicine10/12/24
--- OUTSIDE RECORDS SUMMARY | 2025-02-05 08:46 | XMS_ITS | Clinical Summary ---
Author Organization [facility] Address [address] [place] [address] Care Team Providers Care Captain Airline Pilot Name Role Phone Flor Mosqueda MD Primary Care Provider [phone] Allergies Active AllergyReactionsCriticalityNoted OsdoFinltdedAsudbUyzswkc57/29/2025Sulfa (Sulfonamide Antibiotics)IkrmmlvykpgSyrd11/29/2025 Medications MedicationSigDispense QuantityRefillsLast FilledStart DateEnd DateStatus Ozempic 1 mg/dose (4 mg/3 mL) pen injector Inject 1 mg under the skin 1 (one) time per week.Active levothyroxine (Synthroid, Levoxyl) 25 mcg tablet Take 25 mcg by mouth before breakfast.Active atorvastatin (Lipitor) 10 mg tablet Take 10 mg by mouth in the morning.Active citalopram (CeleXA) 20 mg tablet Take 20 mg by mouth in the morning.Active pantoprazole (ProtoNix) 40 mg EC tablet Take 40 mg by mouth before breakfast. Do not crush, chew, or split.Active famotidine (Pepcid) 20 mg tablet Take 20 mg by mouth two times daily.Active benazepril (Lotensin) 20 mg tablet Take 1 tablet by mouth in the morning.01/01/2017Active busPIRone (Buspar) 15 mg tablet Take 15 mg by mouth if needed each day.5Active tiZANidine (Zanaflex) 4 mg tablet Take 4 mg by mouth if needed each day.3Active traZODone (Desyrel) 50 mg tablet Take 1 tablet by mouth in the morning.01/01/2017Active Active Problems ProblemNoted DateDiagnosed DateOropharyngeal odaxvbvex94/26/2025 Assessment & Plan (11/02/2024 2:16 PM EDT): GI on board. EGD scheduled tomorrow on 11/03/2024. Cleared for regular diet by speech. Assessment & Plan (11/01/2024 12:20 PM EDT): GI on board. Swallow evaluation pending. Assessment & Plan (10/31/2024 12:55 PM EDT): GI on board. Swallow evaluation pending. Yupnbvqgpxobmeqduz23/25/2025 Assessment & Plan (11/02/2024 2:16 PM EDT): [...] MRCP - unclear intrahepatic biliary ductal dilation alongwith common hepatic duct dilatation. No choledocholithiasis or cholecystitis. Awaiting GI recommendation Assessment & Plan (10/31/2024 12:55 PM EDT): CT scan of the abdomen did not show pancreatitis, no significant intra-abdominal pathology but mildintrahepatic ductal dilation. No obvious mass was seen [...] possible EGD needed Right upper quadrant abdominal pain10/30/2024 Assessment & Plan (11/02/2024 2:16 PM EDT): [...] MRCP - unclear intrahepatic biliary ductal dilation alongwith common hepatic duct dilatation. No choledocholithiasis or cholecystitis. Awaiting GI recommendation Assessment & Plan (10/31/2024 12:55 PM EDT): CT scan of the abdomen did not show pancreatitis, no significant intra-abdominal pathology but mildintrahepatic ductal dilation. No obvious mass was seen [...] consult speech therapy, possible EGD needed Acute eqeexmco67/25/2025 Assessment & Plan (11/02/2024 2:16 PM EDT): On IV Rocephin. Continues to experience dysuria. Assessment & Plan (11/01/2024 12:20 PM EDT): On IV Rocephin. Continues to experience dysuria. Started on phenazopyridine Assessment & Plan (10/31/2024 12:55 PM EDT): On IV Rocephin. Continues to experience dysuria. Started on phenazopyridine Assessment & Plan (10/30/2024 2:27 AM EDT): -Begin rocephin HUY (acute kidney injury)10/30/2024 Assessment & Plan (10/30/2024 2:27 AM EDT): -BUN 11, Creatinine 1.05, GFR 50 -IV fluids, repeat BMP pending Primary eylkugsglpif38/25/2025 Assessment & Plan (11/02/2024 2:16 PM EDT): -Continue home meds Assessment & Plan (11/01/2024 12:20 PM EDT): -Continue home meds Assessment & Plan (10/31/2024 12:55 PM EDT): -Continue home meds Assessment & Plan (10/30/2024 2:27 AM EDT): -Continue home meds Type 2 diabetes mellitus without complication, without long-term current use of odyvbez93/ Assessment & Plan (11/02/2024 2:16 PM EDT): ISS, ACHS Assessment & Plan (11/01/2024 12:20 PM EDT): ISS, ACHS Assessment & Plan (10/31/2024 12:55 PM EDT): ISS, ACHS Assessment & Plan (10/30/2024 2:27 AM EDT): ISS, ACHS Acquired snapzfgucebgoc61/25/2025 Assessment & Plan (11/02/2024 2:16 PM EDT): -Continue levothyroxine Assessment & Plan (11/01/2024 12:20 PM EDT): -Continue levothyroxine Assessment & Plan (10/31/2024 12:55 PM EDT): -Continue levothyroxine Assessment & Plan (10/30/2024 2:27 AM EDT): -Continue levothyroxine HLD (hyperlipidemia)10/30/2024 Assessment & Plan (11/02/2024 2:16 PM EDT): -Continue lipitor Assessment & Plan (11/01/2024 12:20 PM EDT): -Continue lipitor Assessment & Plan (10/31/2024 12:55 PM EDT): -Continue lipitor Assessment & Plan (10/30/2024 2:27 AM EDT): -Continue lipitor GERD (gastroesophageal reflux disease)10/30/2024 Assessment & Plan (11/02/2024 2:16 PM EDT): -Continue PPI Assessment & Plan (11/01/2024 12:20 PM EDT): -Continue PPI Assessment & Plan (10/31/2024 12:55 PM EDT): -Continue PPI Assessment & Plan (10/30/2024 2:27 AM EDT): -Continue PPI Hhxargvbwimc01/25/2025 Assessment & Plan (11/02/2024 2:16 PM EDT): -Continue home meds Assessment & Plan (11/01/2024 12:20 PM EDT): -Continue home meds Assessment & Plan (10/31/2024 12:55 PM EDT): -Continue home meds Assessment & Plan (10/30/2024 2:27 AM EDT): -Continue home meds Severe protein-calorie fxndfxilunic46/25/2025 Assessment & Plan (11/02/2024 2:16 PM EDT): Poor oral intake, unintentional weight loss. On dietitian. Assessment & Plan (11/01/2024 12:20 PM EDT): Poor oral intake, unintentional weight loss. On dietitian. Assessment & Plan (10/31/2024 12:55 PM EDT): Poor oral intake, unintentional weight loss. On dietitian. Encounters DateTypeDepartmentCare OfjxZyjzerstyfp58/04/2025Results Follow-Up [facility] [address] [place] [address] [place] [address] Jono Nascimento, MINNA Histology - tissue examfrom Last 3 Months Family History Medical HistoryRelationNameCommentsCancerFatherAlzheimer's diseaseMotherRelation NameStatusCommentsFatherMother Social History Tobacco UseTypesPacks/DayYears UsedDateSmoking Tobacco: NeverSmokeless Tobacco: Never Tobacco Cessation:Counseling Given: Not Answered Alcohol UseStandard Drinks/WeekCommentsNever0 (1 standard drink = 0.6 oz pure alcohol)[facility] UtilitiesAnswerDate RecordedIn the past 12 months has the electric, gas, oil, or water company threatened to shut off services in your home?No 10/30/2024Humiliation, Afraid, Rape, and Kick questionnaireAnswerDate Recorded Within the last year, have you been afraid of your partner or ex-partner?No 10/30/2024Emotionally AbusedNot on file10/30/2024Physically AbusedNot on file 10/30/2024Sexually AbusedNot on file10/30/2024Overall Financial Resource Strain (CARDIA)AnswerDate RecordedHow hard is it for you to pay for the very basics like food, housing, medical care, and heating?Not very hard10/30/2024 TransportationAnswerDate RecordedIn the past 12 months, has lack of transportation kept you from medical appointments or from getting medications?No 10/30/2024Lack of Transportation (Non-Medical)Not on file10/30/2024Housing Stability Vital SignAnswerDate RecordedIn the last 12 months, was there a time when you were not able to pay the mortgage or rent on time?No10/30/2024Number of Times Moved in the Last YearNot on file10/30/2024t any time in the past 12 months, were you homeless or living in a senior living (including now)?No10/30/2024 Hunger Vital SignAnswerDate RecordedWithin the past 12 months, you worried that your food would run out before you got the money to buymore.Never true10/30/2024 Ran Out of Food in the Last YearNot on file10/30/2024CommentsNoSex and Gender InformationValueDate RecordedSex Assigned at SewesYcwobo44/25/2025 12:15 AM EDTLegal GzzRzcwww62/24/2025 8:27 PM EDTGender MkcfhpscAvtpys11/25/2025 12:15 AM EDTSexual OrientationHeterosexual or Pbfqzlme24/25/2025 12:15 AM EDT Last Filed Vital Signs Vital SignReadingTime TakenCommentsBlood Cytgwfjl436/7707 2:55 PM EDT Qxseb750411/03/2024 2:55 PM EETKzfripvzygx81.1 ??C (97 ??F)11/03/2024 1:50 PM EDT Respiratory Gylp712011/03/2024 2:55 PM EDTOxygen Oiwvwqcets02%11/03/2024 2:55 PM EDTInhaled Oxygen Concentration--Azcuug44.8 kg (156 lb 1.6 oz)11/03/2024 5:00 AM QDUGmifnm887.9 cm (5' 0.98 )10/30/2024 2:06 AM EDTBody Mass Index29.51010/30/2024 2:06 AM EDT Plan of Treatment Health MaintenanceDue DateLast DoneCommentsCT Zuvvhznahaiq70/28/1950Diabetes: Hemoglobin A1C1949FIT-DNA1949FIT1949FOBT1949 Pbluvmlwxzaxk54/28/1950Diabetes: Retinopathy Dtnwaconl35/28/1960Depression Fzdwypdwk73/28/1962Diabetes: Urine Protein Euniozacl39/28/1969Adult Tetanus 08/04/1971Zoster Vaccines (1 of 2), 02/03/2015Pneumococcal Vaccine: 50+ Years (3 of 3 - PCV20 or PCV21), 02/02/2015, 01/06/2011Medicare Annual Wellness (AWV)/, 04/25/2020, 07/15/2017, Additional history existsCOVID-19 Vaccine ( season) 2024Influenza Vaccine (#1)/, 01/07/2020, 02/02/2019, Additional history existsFall Risk Nyecuqfud59/29/512851/5Colonoscopy , 09/27/2016, 04/08/2015Colorectal Cancer Screening 09/27/2026HIB VaccinesAged OutNo longer eligible based on patient's age to complete this topicHPV VaccinesAged OutNo longer eligible based on patient's age to complete this topicIPV VaccinesAged OutNo longer eligible based on patient's age to complete this topicMeningococcal B VaccineAged OutNo longer eligible based on patient's age to complete this topicMeningococcal VaccineAged OutNo longer eligible based on patient's age to complete this topicRotavirus Vaccines Aged OutNo longer eligible based on patient's age to complete this topic Insurance Advance Directives * Full Code (Latest Code Status on File) Date ActivatedDate InactivatedComments10/30/2024 1:37 AM11/03/2024 7:11 PM Care Teams Team MemberRelationshipSpecialtyStart DateEnd Date Flor Mosqueda MD [address] [place] [address] PCP - General10/30/24
--- OUTSIDE RECORDS SUMMARY | 2025-02-05 08:46 | XMS_ITS | Clinical Summary ---
Author Organization [employer] Address [id number] [address] [place] [address] Care Team Providers Care Collector Name Role Phone Tremayne Cartagena Primary Care Provider Allergies Active AllergyReactionsCriticalityNoted DateCommentsLatex, Natural Rubber 09/06/2016 Only bandaids Sulfa (Sulfonamide Antibiotics)QqtsusjhcekYadj29/31/2017 Medications MedicationSigDispense QuantityRefillsLast FilledStart DateEnd DateStatus cholecalciferol, vitamin D3, 2,000 units capsule Take 2,000 Units by mouth daily.Active ibuprofen (ADVIL,MOTRIN) 800 mg tablet Indications:Chronic left shoulder painTake 1 tablet (800 mg total) by mouth every 6 (six) hours as needed for pain. 120 tablet Active omeprazole (PriLOSEC) 40 mg capsule Indications:Reflux esophagitisTake 1 capsule (40 mg total) by mouth daily. 30 capsule Active HYDROcodone-acetaminophen (NORCO) 5-325 mg per tablet TAKE 1 - 2 TABLETS BY MOUTH EVERY 4 TO 6 HOURS NEEDED FOR RBQW515 Active HYDROcodone-acetaminophen (NORCO) 10-325 mg per tablet 12/27/2016Active cyclobenzaprine (FLEXERIL) 10 mg tablet Take 1 tablet (10 mg total) by mouth every 8 (eight) hours as needed for muscle spasms. 30 tablet Active citalopram (CeleXA) 40 mg tablet Take 1 tablet (40 mg total) by mouth daily for 180 days. 90 tablet Active benazepril (LOTENSIN) 20 mg tablet Take 1 tablet (20 mg total) by mouth daily for 180 days. 90 tablet Active traZODone (DESYREL) 50 mg tablet Take 1 tablet (50 mg total) by mouth nightly. 90 tablet Active glipiZIDE (GLUCOTROL) 10 mg 24 hr tablet Take 1 tablet (10 mg total) by mouth daily for 180 days. 90 tablet Active ALPRAZolam (XANAX) 0.5 mg tablet Take 1 tablet (0.5 mg total) by mouth nightly as needed for anxiety. 30 tablet 01/01/2017Active Active Problems ProblemNoted DateDiagnosed DateShortness of vrsjxt6611/21/2016Hypertension 11/13/2016GERD (gastroesophageal reflux disease)11/13/2016Diabetes mellitus type 2, bhbupzmbeg16/08/4269Kpgtbkl94/08/8316Elgdfvcvluxnbi95/08/2017Fibromyalgia, sckopym8909/13/2016Family history of colon umoyrg6309/13/2016Type 2 diabetes zqellkic11/08/2017History of colon kmxicw8109/13/2016 Family History Medical HistoryRelationNameCommentsColon cancerFatherDiabetesFatherAneurysm MotherRelationNameStatusCommentsFatherDeceasedMotherDeceased Social History Tobacco UseTypesPacks/DayYears UsedDateSmoking Tobacco: NeverSmokeless Tobacco: NeverAlcohol UseStandard Drinks/WeekCommentsNo0 (1 standard drink = 0.6 oz pure alcohol)ChildcareAnswerDate QirssvsoJormqskivRmnlujo26/12/2019EmploymentAnswer Date NceydkjyOhnqxjznjzSjbsnol51/12/2019Purpose - LifeAnswerDate RecordedPurpose and direction in jhflHczewtj56/11/2021CommentsNoSex and Gender InformationValueDate RecordedSex Assigned at BirthNot on fileLegal SexFemale 11/11/2014 12:01 PM EDTGender IdentityNot on fileSexual OrientationNot on file Last Filed Vital Signs Vital SignReadingTime TakenCommentsBlood Sfbicbpi724/6409 2:00 PM EDT Mjopx6750 2:00 PM HNYVubymodyrgz57.9 ??C (98.4 ??F)11/22/2016 7:28 AM EDTRespiratory Lbqy3879 8:18 AM EDTOxygen Ujztaegrku02%11/22/2016 9:07 AM EDTInhaled Oxygen Concentration--Kxgrnm21.9 kg (174 lb)01/01/2017 2:00 PM EDT Blrlsc162.9 cm (5' 1 )01/01/2017 2:00 PM EDTBody Mass Index32.8801/01/2017 2:00 PM EDT Plan of Treatment Health MaintenanceDue DateLast DoneCommentsDiabetic Ophthalmology Exam1949 Depression Rmzfkdogq30/28/1962Tobacco Vdozqczdr54/28/1962DTaP,Tdap and Td Vaccines (1 - Tdap)1968Zoster (Shingles) Vaccine (1 of 2)08/04/1999Fall Risk Jwlyezaag10/28/2015Influenza Ztwgqvl1012/07/2024 Medical Devices ImplantedTypeAreaManufacturerDevice IdentifierShelf Expiration DateModel / Serial / LotSut Anch Pushlk Bcmps 3.5x19.5 Ster Disp 5ea/Po Ln Required - [id number] Implanted:Qty: 1 on 11/21/2016 [facility][id number] / NA / [id number] Reserve Swivel - [id number] Implanted:Qty: 1 on 11/21/2016 [facility]: KkgkpqudJnfgoja27/30/[id number] / NA / [id number] Insurance Advance Directives * Full Code (Latest Code Status on File) Date ActivatedDate InactivatedComments11/21/2016 3:46 PM11/22/2016 3:07 PM Care Teams Team MemberRelationshipSpecialtyStart DateEnd Date Tremayne Cartagena DO [address] [place], [place] [id number] PCP - GeneralFamily Medicine08/17/16
--- OUTSIDE RECORDS SUMMARY | 2025-02-05 08:47 | XMS_ITS | Patient Health Record ---
Author Organization [facility] [place] Address [address] [place] [address] Support Name Relationship Address Phone Jude Emergency Contact Unknown Unavailabl e Jude Recinos Guarantor Unknown [phone] Reason For Referral No Information Plan Of Treatment No Information Insurance Providers Payer Name Payer Address Payer Phone Subscriber Number Group Number Insured Name Patient Relationship to Insured Coverage Start Date Coverage End Date SELF PAY ON PATIENT [employer]OGRAPH[employer] Chris Recinos - patient is the [id number]/05/2007
--- OUTSIDE RECORDS SUMMARY | 2025-02-05 08:47 | XMS_ITS | Clinical Summary ---
Author Organization [facility] Address [address] [place] [id number] Care Team Providers Care Mine Expert Name Role Phone Flor Mosqueda MD Primary Care Provider [phone] Allergies Active AllergyReactionsCriticalityNoted DateCommentsLatex, Natural RubberUnknown 09/06/2016 Only bandaids Sulfa (Sulfonamide Antibiotics)VkyhhbjkcbcKdbc48/31/2017 Medications MedicationSigDispense QuantityRefillsLast FilledStart DateEnd DateStatus metFORMIN ER (GLUCOPHAGE XR) 500 mg 24 hr tablet metformin ER 500 mg tablet,extended release 24 hr TAKE 2 TABLETS BY MOUTH TWICE A DAYActive traMADol (ULTRAM) 50 mg tablet 08/04/2020ctive traZODone (DESYREL) 50 mg tablet trazodone 50 mg tablet TAKE 1 TABLET BY MOUTH EVERY DAY01/01/2017Active levothyroxine (SYNTHROID) 50 mcg tablet levothyroxine 50 mcg tablet TAKE 1 TABLET BY MOUTH DAILYActive citalopram (CELEXA) 40 mg tablet citalopram 40 mg tablet TAKE 1 TABLET BY MOUTH DAILY01/01/2017Active benazepril (LOTENSIN) 20 mg tablet benazepril 20 mg tablet TAKE 1 TABLET BY MOUTH EVERY DAY01/01/2017Active SITagliptin (JANUVIA) 100 mg tablet Januvia 100 mg tablet One tab p.o. dailyActive Active Problems No known active problems Immunizations ImmunizationAdministration DatesNext Dueinfluenza (HD-IIV3) vaccine, age 65+ yr, high dose, trivalent, PF (FLUZONE HIGH-DOSE)01/07/2020,01/06/2019,12/17/2017, 02/05/2017,03/05/2016,02/16/2015,02/02/2015,01/06/2013influenza (IIV4) vaccine, age 6 mo - 64 yr, quadrivalent (AFLURIA, FLULAVAL, FLUZONE)03/24/2014influenza (IIV4) vaccine, age 6 mo - 64 yr, quadrivalent, PF (AFLURIA, FLUARIX, FLULAVAL, FLUZONE)04/09/2016influenza (LAIV) vaccine, nasal, unspecified formulation 01/13/2018influenza (aIIV3) vaccine, age 65+ yr, trivalent, PF (FLUAD)01/01/2019 pneumococcal conjugate (PCV13) vaccine, 13 valent (PREVNAR 13)02/16/2015, 02/02/2015pneumococcal polysaccharide (PPV23) vaccine, 23 valent (PNEUMOVAX 23) 01/06/2011zoster (ZVL) vaccine, live (ZOSTAVAX)02/03/2015 Family History Medical HistoryRelationCommentsneoplasticFatherAlzheimer's DiseaseMotherHeart diseaseMotherLung diseaseMotherProstate CancerSon 2RelationStatusCommentsBrother 1AliveBrother 2AliveBrother 3AliveFatherDeceasedMotherDeceasedSister 1Deceased Sister 2AliveSister 3AliveSon 1AliveSon 2AliveSon 3Alive Social History Tobacco UseTypesPacks/DayYears UsedDateSmoking Tobacco: NeverSmokeless Tobacco: NeverAlcohol UseStandard Drinks/WeekCommentsNot Currently0 (1 standard drink = 0.6 oz pure alcohol)PHQ-2AnswerDate RecordedPHQ-2 [id number] Deprivation IndexAnswerDate RecordedNational Score (1-100), lower number is lower riskNot on file08/04/2020tate Score (1-10), lower number is lower riskNot on file08/04/2020ata from: https://www.neighborhoodatlas.medicine.[facility].edu/. Last address used for calculationNot on file08/04/2020CommentsUnknownSex and Gender InformationValueDate RecordedSex Assigned at BirthNot on fileLegal YlzFkkqny02/29/2021 1:47 PM EDTGender IdentityNot on fileSexual OrientationNot on file Last Filed Vital Signs Vital SignReadingTime TakenCommentsBlood Wygoioag784/54009/30/2020 1:16 PM EDT Pnysh188509/30/2020 1:16 PM IFITazjvmrhehr58.2 ??C (97.2 ??F)09/30/2020 1:16 PM EDTRespiratory Wfcp067209/30/2020 1:16 PM EDTOxygen Nmaowhjxwq07%09/30/2020 1:16 PM EDTInhaled Oxygen Concentration--Hvdnyr76.6 kg (162 lb 3.2 oz)09/30/2020 1:16 PM TWKMidzbz774 cm (5' 1.81 )09/30/2020 1:16 PM EDTBody Mass Index29.85 09/30/2020 1:16 PM EDT Plan of Treatment Health MaintenanceDue DateLast DoneCommentsAnxiety Vmxjwpklc31/28/1968Depression Pzmefvubc78/28/1968Hepatitis C Mwdmasbwf78/28/1968DTaP,Tdap,Td Vaccine (1 - Tdap)1968CT Dzyiibwfcwff13/28/1995Cologuard (FIT-DNA)1994Colonoscopy 1994Colorectal Cancer Neosrwchp03/28/1995Fecal Occult Blood1994 Rvbeutekvfabn59/28/1995Bone Density Qdehvkniw54/28/2015Shingrix Vaccine (2 of 3) Pneumococcal Vaccine: 50+ (3 of 3 - PCV20 or PCV21) , 02/02/2015, 01/06/2011Diabetes Qcdlwlkbg75/22/2024 09/27/2020, 09/27/2020, 08/19/2020dvance Directive Akmceyrxuk40/01/2025RSV Vaccine (1 - 1-dose 75+ series)2024ovid-19 Vaccine (1 - 2024- season) 2024Influenza Vaccine (#1)/04/2019, 01/06/2019, 01/01/2019, Additional history existsLipid Gndhhhgne71/22/92948809/27/2020 Procedures Procedure NamePriorityDate/TimeAssociated DiagnosisCommentsLIPID PANEL, FASTING Fax09/27/2020 10:00 AM EDT COMPREHENSIVE METABOLIC ECTYFXtonubd05/22/2021 9:21 AM EDT Thrombocytopenia (HCC) from Last 3 Months or Most Recently Relevant to Health Maintenance Results * (ABNORMAL) LIPID PANEL BASIC (09/27/2020 10:00 AM EDT)ComponentValueRef Range Test MethodAnalysis TimePerformed AtPathologist SignatureCholesterol, Xymdw627 <200 mg/dL09/28/2020 2:12 AM [facility]: <200 mg/dL, Desirable 200-239 mg/dL, Borderline high >239 mg/dL, High Nbewvkdwzlfp273<150 mg/dL09/28/2020 2:12 AM [facility] Comment: <150 mg/dL, Normal 150-199 mg/dL, Borderline high 200-499 mg/dL, High >499 mg/dL, Very high HDL Eynjtkrvacc99(L)>39 mg/dL09/28/2020 2:12 AM [facility] Comment: 40-59 mg/dL, Acceptable >59 mg/dL, High: Negative risk factor for coronary heart disease <40 mg/dL, Low: Positive risk factor for coronary heart disease LDL Cholesterol, Tjmipattyd02<100 mg/dL09/28/2020 2:12 AM [facility]Comment: <100 mg/dL, Optimal 100-129 mg/dL, Near optimal/above optimal 130-159 mg/dL, Borderline high 160-189 mg/dL, High >189 mg/dL, Very high Secondary prevention optimal LDL Cholesterol levels are recommended to be < 70 mg/dL Non HDL Wzypkyfvkmd64<130 mg/dL09/28/2020 2:12 AM [facility] LaboratoriesComment: <130 mg/dL, Optimal 130-159 mg/dL, Near optimal/above optimal 160-189 mg/dL, Borderline high 190-219 mg/dL, High >219 mg/dL, Very high Secondary prevention optimal non HDL Cholesterol levels are recommended to be < 100 mg/dL Fasting Xwpm60ccz67/22/2021 11:21 PM [facility] LaboratoriesVLDL Ovlrytuwnuu23<30 mg/dL09/28/2020 2:12 [facility]TC:HDL Ratio2.97<5.10009/28/2020 2:12 AM [facility] LaboratoriesLDL:HDL Ratio 1.32<2.5406 2:12 AM [facility] LaboratoriesComment: Reference: 1. National Cholesterol Education Program ATP III Guideline At-A-Glance Quick Desk Reference: National Heart, Lung, and Blood [place]. National Institutes of Health. 2001: NIH Publication No. 01-3305. 2. An International Atherosclerosis Society position paper: global recommendations for the management of dyslipidemia: executive summary, Atherosclerosis. 2014: 232(2):410-413. Specimen (Source)Anatomical Location / LateralityCollection Method / Volume Collection TimeReceived Time09/27/2020 10:00 AM EDT09/27/2020 11:11 PM EDT Narrative Authorizing ProviderResult TypeResult StatusCcf ProviderLABORATORYFinal Result Performing OrganizationAddressCity/State/ZIP CodePhone Number [facility] [address] [place] [address] [facility] [address] [place] [address] * (ABNORMAL) COMP METABOLIC PANEL (09/27/2020 9:21 AM EDT)ComponentValueRef RangeTest MethodAnalysis TimePerformed AtPathologist SignatureProtein, Total 7.26.3 - 8.0 g/dL09/27/2020 10:03 AM [facility] Cancer CareAlbumin4.53.9 - 4.9 g/dL09/27/2020 10:03 AM [facility] Cancer CareCalcium9.58.5 - 10.2 mg/dL09/27/2020 10:03 AM [facility] Cancer CareBilirubin, Total0.70.2 - 1.3 mg/dL09/27/2020 10:03 AM [facility] Cancer CareAlkaline Lfwkeourtok8919 - 123 U/L09/27/2020 10:[facility] OjqjWEV8044 - 35 U/L09/27/2020 10:03 AM [facility] Cancer CareGlucose 161(H)74 - 99 mg/dL09/27/2020 10:03 AM [facility] Cancer CareComment: The [place] Diabetes Association (ADA) provides guidance for cutoff [...] Standards of Medical Care in Diabetes 2016, [place] [employer]. Diabetes Care. 2016.39(Suppl 1). JEM350 - 21 mg/dL09/27/2020 10:03 AM [facility] Cancer Care Creatinine0.670.58 - 0.96 mg/dL09/27/2020 10:03 AM [facility] Cancer BingGhzhzw472610 - 144 mmol/L09/27/2020 10:03 AM [facility] Cancer CarePotassium4.13.7 - 5.1 mmol/L09/27/2020 10:03 AM [facility] Cancer HsxiQunsbxvf61779 - 105 mmol/L09/27/2020 10:03 AM [facility] Cancer LvjxSC25842 - 30 mmol/L 09/27/2020 10:03 AM [facility] Cancer CareAnion Pkc750 - 18 mmol/L09/27/2020 10:03 AM [facility] Cancer UerkRFY09(H)7 - 38 U/L09/27/2020 10:03 AM [facility] Cancer CareeGFR- >6006/ 10:03 AM [facility] Cancer CareeGFR-All Other Races>60.09/27/2020 10:03 AM [facility] Cancer CareComment: eGFR (Estimated GFR) Units of measure: mL/min/1.73 [...] eGFR may not accurately reflect actual GFR. Specimen (Source)Anatomical Location / LateralityCollection Method / Volume Collection TimeReceived OjrqPunwj46/22/2021 9:21 AM EDT09/27/2020 9:35 AM EDT Narrative Authorizing ProviderResult TypeResult StatusBrfide Aguilar MDLABORATORY Final ResultPerforming OrganizationAddressCity/State/ZIP CodePhone Number [address] [address] [facility] [address] from Last 3 Months or Most Recently Relevant to Health Maintenance Insurance Care Teams Team MemberRelationshipSpecialtyStart DateEnd Date Flor Mosqueda MD [address] [place] [address] PCP - GeneralFamily Medicine08/04/20
--- OUTSIDE RECORDS SUMMARY | 2025-02-05 08:50 | XMS_ITS | CCD ---
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 Operations Superintendent Name Role Phone Carmen Conley MD Primary Care Provider [phone] YAEL, DR CARMEN Riggins Attending Unavailable CONLEY, DR CARMEN Riggins Admitting Unavailable CONLEY, DR CARMEN Riggins Primary Care Unavailable CONLEY, DR CARMEN Riggisn Consulting Unavailable CONLEY, DR CARMEN Riggins Attending Unavailable CONLEY, DR CARMEN Riggins Admitting Unavailable CONLEY, DR CARMEN Riggins Primary Care Unavailable CONLEY, DR CARMEN Riggins Consulting Unavailable CONLEY, DR CARMEN Riggins Attending Unavailable CONLEY, DR CARMEN Riggins Admitting Unavailable CONLEY, DR CARMEN Riggins Primary Care Unavailable DE SOTO, DR HAYLEY Martinez Consulting Unavailable CONLEY, DR CARMEN Riggins Consulting Unavailable CONLEY, DR CARMEN Riggins Primary Care Unavailable TERESITA ., MICHAEL Attending Unavailable PAM ., MR PÉREZ Consulting Unavailable TERESITA ., MICHAEL Admitting Unavailable YASMEEN, VERA Consulting Unavailable YAEL, DR CARMEN Riggins Primary Care Unavailable PERFECTO ., DR LEANDER Riggins Consulting Unavailable GROVE ., DR LEANDER Riggins Attending Unavailable GROVE ., DR LEANDER Riggins Admitting Unavailable ZIEBER, DR JAZMINE Tomlinson Consulting Unavailable GRECHNY ., SANTO DEWEY Consulting Unavailabl e Melina, Caro Consulting Unavailable HOLLIS, MARÍA Consulting Unavailable CINDY, DR GONZALES Consulting Unavailable BALL, DR GONZALES Attending Unavailable BALL, DR GONZALES Admitting Unavailable CONLEY, DR CARMEN [...] MISC, DR FERNÁNDEZ Admitting Unavailable Carmen Conley Unavailable Carmen Conley MD Primary Care Provider CARMEN CONLEY Primary Care Physician Unavailable Primary Care Provider Unavailinocente Mohamud MD, Nohemy Aguayo Attending Unavailable Oneida CERRATO, Nohemy Aguayo Attending Unavailable Oneida CERRATO, Nohemy Aguayo Attending Unavailable Oneida CERRATO, Nohemy Aguayo Attending Unavailable Dontae Hernández Attending Unavailable NONE, XXXX Referring Unavailable MoRamya marshd A. Attending Unavailable Mouchli Mohamad A. Attending Unavailable Mouchli Mohamad A. Attending Unavailable Mouchli Mohamad AJeff Admitting Unavailable MoShaun marsh AJeff Attending Unavailable Momaximo Mohamad AJeff Referring Unavailable Deonte Peraza Admitting Unavaila [...] Care Provider Randa Christine MD Attending Provider Carmen Conley MD Primary Care Provider ZULEIMA MCKINLEY Attending Unavailable ZULEIMA MCKINLEY Attending Unavailable ZULEIMA MCKINLEY Attending Unavailable ELLY SERNA Attending Unavailable CARMEN CONLEY Referring Unavailable Carmen Conley MD Primary Care Provider [phone] Carmen Conley MD Attending Provider Preet Melchor MD Attending Provider Carmen Conley Primary Care Unavailable Asaema, Imema Attending Unavailable Nanci, Imad Admitting Unavailable Preet Melchor Attending Unavailable Preet Melchor Admitting Unavailable Treva Sellers CMA Attending Provider Unavaila ble Faria MD, Michael Attending Provider Unavailable Carmen Conley MD Primary Care Provider [phone] Carmen Conley MD Attending Provider [phone] DUC HAMILTON Referring Unavailable HORANI, MACEY Admitting Unavailable HORANI, MACEY Attending Unavailable PIA LO Referring Unavailable FAWWAD, MARY Referring Unavailable FAWWAD, MARY Referring Unavailable VITO PAVON Attending Unavailable KAMALA BATES Referring Unavailable Carmen Conley MD Primary Care Provider [phone] Carmen Conley MD Attending Provider Allergies Allergy ClassificationReported Allergen(s)Allergy TypeDate of OnsetReaction(s) FacilitySulfonamides (antibiotic) (1 source)Sulfonamides (Antibiotic); Translations: [sulfa drugs]Drug AllergyWeal (disorder)[facility] (13 sources)LatexDrug Uhuabfa67-97-7985SgnodmiSelect Medical [facility] (20 sources)Sulfonamides (Antibiotic); Translations: [SULFA (SULFONAMIDE ANTIBIOTICS)]Drug Bxogltt08-12-3797Cfmfteidlgc, RashCleveland Clinic (20 sources)Latex; Translations: [LATEX]Propensity to adverse reactions 37-22-9037CzzggliOhioHealth [facility] (20 sources)Sulfonamides (Antibiotic)Propensity to adverse reactionsK[facility] Hospital [facility] Other (1 source)LatexDrug allergy (disorder)90-16-6604CozOhio[facility] (1 source)Sulfonamides (Antibiotic)Drug allergy (disorder)81-36-8303CzuOhiohealth [facility] (13 sources)sulfADIAZINEDrug Nsaitnc33-55-2541Sciiocr:Informatics In ContextHarry [facility]. [facility] TCM Bertha Other (12 sources)Adhesive bandage; Translations: [Adhesive Bandage]Drug allergy Eruption of skin (disorder)[facility] (11 sources)Sulfonamides (Antibiotic); Translations: [sulfa drugs]Drug allergy Weal (disorder)[facility] (11 sources)SimvastatinAllergy to zjadavglb49-40-6667[facility] (1 source)LatexDrug allergy (disorder)25-35-1833[facility]burfqrPe[facility] (1 source)Sulfonamides (Antibiotic)Drug allergy (disorder)20-95-0907VsmcdsazrPeoples Hospital Repository (1 source)ALLERGIES NOT ON FILE; Translations: [ALLERGIES NOT ON FILE]Propensity to adverse reactions (disorder)[facility] Repository Medications Current Medications MedicationDrug Class(es)DatesSig (Normalized)Sig (Original)benazepril hydrochloride 20 mg oral tablet (20 sources)Angiotensin Converting Enzyme InhibitorStart: 12-10-2023 End: 53-08-5849hddn 1 tablet by mouth once dailyBenazepril 20 mg tablet Active 0 .ROUTE .COMPLEX November 06, 2024 3:31pm TAKE 1 TABLET BY MOUTH DAILY Complies with drug therapyStart: 01-01-2017 End: 35-07-2104ngbq 1 tablet by mouth once dailyBenazepril 20 mg tablet Discontinued 1 TAB PO Daily May 27, 2023 1:00am December 10, 2023 1 :02pm FreeTextSig: TAKE 1 TABLET BY MOUTH DAILY; Note: Source Status: Taking; Refills: 3; Qty: 90 Tablet; Provider: Yael Agarwal on above:benazepril 20 mg tablet TAKE 1 TABLET BY MOUTH EVERY DAYbusPIRone hydrochloride 15 mg oral tablet (18 sources)Start: 02-05-2024 End: 43-23-9439yckl 1 tablet by mouth twice daily as needed for anxietyBuspirone 15 mg tablet Active 15 MG PO Twice daily as needed for anxiety 180 August 06, 2024 11:13am Complies with drug therapycefuroxime 250 mg oral tablet (18 sources)Cephalosporin Antibacterialtake 1 tablet by mouth every twelve hours citalopram 20 mg oral tablet (20 sources)Serotonin Reuptake InhibitorStart: 58-66-5538kpae 1 tablet by mouth once dailyCitalopram 20 mg tablet Active 0 .ROUTE .COMPLEX December 14, 2024 2:30pm TAKE 1 TABLET BY MOUTH DAILY Complies with drug therapyStart: 08-29-2024 End: 90-14-5724yolk 1 tablet by mouth once dailyCitalopram 20 mg tablet Discontinued 20 MG PO Daily October 26, 2024 1:06pm December 04, 2024 11:43am Start: 03-26-2024 End: 28-74-4758getp 2 tablets by mouth once dailyCitalopram 20 mg tablet Discontinued 40 MG PO Daily March 26, 2024 2:37pm October 26, 2024 11:44am Start: 02-12-2024 End: 61-69-6762fehx 1 tablet by mouth once dailyCitalopram 20 mg tablet Discontinued 20 MG PO Daily February 12, 2024 1:00am March 26, 2024 2:38pm Start: 02-12-2024 End: 53-37-6086eras 1 tablet by mouth once dailyCitalopram 40 mg tablet Discontinued 40 MG PO Daily February 12, 2024 1:00am February 12, 2024 10:31am Start: 12-26-2023 End: 52-54-8208mzps 1 tablet by mouth once dailyCitalopram 20 mg tablet Discontinued 0 .ROUTE .COMPLEX December 26, 2023 11:08am February 12, 2024 10:24am TAKE 1 TABLET BY MOUTH DAILYStart: 12-10-2023 End: 51-34-6657gvvk 1 tablet by mouth once dailyCitalopram 40 mg tablet Discontinued 0 .ROUTE .COMPLEX December 10, 2023 1:02pm December 26, 2023 11:09am TAKE 1 TABLET BY MOUTH DAILYStart: 01-01-2017 End: 29-79-9221imbr 1 tablet by mouth once dailyCitalopram 40 mg tablet Discontinued 40 MG PO Daily May 27, 2023 1:00am December 10, 2023 1 :02pm FreeTextSig: TAKE 1 TABLET BY MOUTH DAILY; Note: Source Status: Taking; Refills: 3; Qty: 90 Tablet; Provider: Yael Ray ECommroque on above:citalopram 40 mg tablet TAKE 1 TABLET BY MOUTH DAILYclindamycin 10 mg/ml topical lotion (11 sources)Lincosamide AntibacterialStart: 13-01-0176wsnwknwfalw (Cleocin T) 1 % lotion Indications: Acne vulgaris Apply to face daily/30 day supply 60 mL 04/16/2023 Activeempagliflozin 10 mg oral tablet (1 source)Sodium-Glucose Cotransporter 2 InhibitorStart: 00-92-8032gwig 1 tablet by mouth once dailyEmpagliflozin (Jardiance) 10 mg tablet Active 10 MG PO Daily January 12, 2025 12:00am Complies with drug therapyfluocinonide 0.5 mg/ml topical solution (8 sources)CorticosteroidStart: 94-91-1503ajeiirbvnxmq (Lidex) 0.05 % external solution Indications: Psoriasis vulgaris Apply to affected areas on the scalp, up to twice a day when flared, 30 day supply 60 mL 04/28/2024 Activefolic acid 1 mg oral tablet (3 sources)Start: 85-35-5669eexd 1 tablet by mouth once dailyFolic Acid 1 mg tablet Active 1 MG PO Daily December 04, 2024 12:00am Complies with drug therapyhydrocortisone 25 mg/ml topical cream (19 sources)CorticosteroidStart: 54-12-6936xosvgkjcfcsyka 2.5 % cream Indications: Psoriasis vulgaris Apply topically 2 (two) times a day as needed (Rash) Apply thin layer to affected areas bid prn for flares 30 g 04/28/2024 ActiveStart: 63-19-0016pbrhpgymbawvjl 2.5 % cream Indications: Other seborrheic dermatitis Apply topically 2 (two) times aday as needed (Rash) 60 g 01/07/2024 Active3 ml insulin lispro 100 unt/ml pen injector (18 sources)Insulin Analoglevothyroxine sodium 0.025 mg oral tablet (20 sources)l-ThyroxineStart: 82-88-7080xlmt 1 tablet by mouth once daily Levothyroxine 25 mcg tablet Active 0 .ROUTE .COMPLEX October 26, 2024 1:06pm TAKE 1 TABLET BY MOUTH DAILY Complies with drug therapyStart: 03-26-2024 End: 85-64-3190zbim 2 tablets by mouth once dailyLevothyroxine 25 mcg tablet Discontinued 50 MCG PO Daily March 26, 2024 2:36pm October 2651:06pm Start: 02-12-2024 End: 87-94-2579jmfb 1 tablet by mouth once dailyLevothyroxine 25 mcg tablet Discontinued 25 MCG PO Daily February 12, 2024 1:00am March 26, 2024 2:38pmStart: 02-05-2024 End: 95-01-7309pavz 1 tablet by mouth once dailyLevothyroxine 50 mcg tablet Discontinued 50 MCG PO Daily February 05, 2024 11:51am February 12, 2024 10:30amStart: 12-26-2023 End: 91-49-1284uyea 1 tablet by mouth once dailyLevothyroxine 25 mcg tablet Discontinued 25 MCG PO Daily December 26, 2023 11:07am February 05, 2024 11:57amStart: 07-03-2023 End: 49-02-0460yuzx 1 tablet by mouth once dailyLevothyroxine 50 mcg tablet Discontinued 0 .ROUTE .COMPLEX October 16, 2023 8:28am December 26, 2023 11:08am TAKE 1 TABLET BY MOUTH DAILYStart: 96-79-8425pnum 1 tablet by mouth once dailylevothyroxine 50 mcg (0.05 mg) Tab 50 mcg = 1 tab(s), Oral, Daily, Refills(s) 0, Thyroid Start Date: 06/21/23 Status: OrderedStart: 05-27-2023 End: 55-63-9704flym 1 tablet by mouth once dailyLevothyroxine 50 mcg tablet Discontinued 1 TAB PO Daily May 27, 2023 1:00am July 022:50pm FreeTextSig: TAKE 1 TABLET BY MOUTH DAILY; Note: Source Status: Taking; Provider: Yael Ray ( )take 1 tablet by mouth once daily Levothyroxine Sodium 50 MCG TAKE 1 TABLET BY MOUTH DAILY ActiveComment on above: levothyroxine 50 mcg tablet TAKE 1 TABLET BY MOUTH DAILYlinaclotide 0.145 mg oral capsule (3 sources)Guanylate Cyclase-C AgonistStart: 88-00-5945rkax 1 capsule by mouth once dailyLinzess 145 mcg oral capsule 145 mcg = 1 cap(s), Oral, Daily, # 30 cap(s), Refills(s) 5, Pharmacy: [facility]/pharmacy #[id number], 155, cm, 06/26/23 12:22:00 EDT, Height/Length Dosing, 72.1, kg, 06/26/23 12:22:00 EDT, Weight Dosing Start Date: 06/27/23 Status: Orderedloratadine 10 mg oral tablet (10 sources)Start: 07-85-5582lpcz 10 mg by mouth once dailyAlavert 10 mg, Oral, Daily, Refills(s) 0, Allergy symptoms Start Date: 06/21/23 Status: OrderedStart: 67-41-8362Bevjzyt Refills(s) 0 Start Date: 06/21/23 Status: OrderedLORazepam (20 sources)BenzodiazepineStart: 48-36-2183sawkrbcpp Oral, q8hr, PRN as needed for anxiety, Refills(s) 0 Start Date: 06/21/23 Status: OrderedStart: 06-21-2023 lorazepam Refills(s) 0 Start Date: 06/21/23 Status: OrderedStart: 05-10-2022 End: 96-86-1045brbj 1 tablet by mouth twice daily at bedtime as neededLorazepam 0.5 mg tablet Discontinued MG PO May 27, 2023 1:00am September 17, 2023 11:02am FreeTextSi tablet at bedtime as needed Orally Twice a day; Note: Source Status: Refill; Refills: 0; Qty: 30 Tablet; Provider: Yael Riggins Start: 90-12-9208ckiz 1 tablet by mouth once daily as neededLORazepam 0.5 MG 1 tab Orally once a day prn for 30 days May, Activemethotrexate 2.5 mg oral tablet (3 sources)Folate Analog Metabolic InhibitorStart: 30-74-9780Omhvgtdelsnr Sodium 2.5 mg tablet Active 15 MG PO every week December 04, 2024 12:00am Complie s with drug therapyMultivitamin tablet (3 sources)Start: 74-48-9472mylc 1 tablet by mouth once dailyStart: 12-04-2024 take 1 tablet by mouth once dailyMultivitamin tablet Active 1 TAB PO Daily December 04, 2024 12:00am Complies with drug therapyOzempic (0.25 or 0.5 MG/DOSE) 2 MG/1.5ML (7 sources)Start: 13-42-3289Vwbzfpv (0.25 or 0.5 MG/DOSE) 2 MG/1.5ML 0.5mg Subcutaneous weekly Jun, ActiveprednisoLONE 5 mg oral tablet (3 sources)CorticosteroidStart: 56-63-5531dlpl 2 tablets by mouth once daily, then take 7.5 mg by mouth once daily, then take 1 tablet by mouth once daily, then take 2.5 mg by mouth once dailyPrednisolone 5 mg tablet Active 5 MG PO Daily 70 60 December 04, 2024 12:00am take 10 mg daily for 2 weeks, 7.5 mg daily for 2 weeks, 5 mg daily for 2 weeks, 2.5 mg daily for 2 weeks Complies with drug therapypredniSONE 5 mg oral tablet (20 sources)Start: 22-54-1657qspl 2 tablets by mouth once daily, then take 7.5 mg by mouth once daily, then take 1 tablet by mouth once daily, then take 2.5 mg by mouth once dailyPrednisone 5 mg tablet Active 5 MG PO Daily 60 60 December 04, 2024 12:00am take 10 mg daily for 2 weeks, 7.5 mg daily for 2 weeks, 5 mg daily for 2 weeks, 2.5 mg daily for 2 weeks Complies with drugtherapyStart: 05-27-2023 End: 63-25-7955tfhy 1 tablet by mouth once dailyPrednisone 20 mg tablet Discontinued 1 TAB PO Daily May 27, 2023 1:00am June 03, 2023 2 :14pm FreeTextSi tablet Orally Once a day; Note: Source Status: Taking; Qty: 5 Tablet; Provider: Yael Batista 1 tablet by mouth every twenty-four hours predniSONE 20 MG 1 tablet Orally Once a day for 5 days ActivePrenatal (18 sources) ActiveOzempic (20 sources)Start: 69-61-8882Oyttswo SubCutaneous, qWeek, Refill(s) 0, Blood glucose Start Date: 06/21/23 Status: OrderedStart: 15-47-9254Iafsxkq Refill(s) 0 Start Date: 06/21/23 Status: OrderedStart: 05-27-2023 End: 26-83-9491Lgtcrqemgsc 7 mg tablet Discontinued 14 MG PO Daily May 28, 2023 12:49pm September 17, 2023 11:02am FreeTextSi tablet at least 30 minutes before first food, beverage or other oral medicine ofthe day Orally Once a day; Note: Source Status: Refill; Refills: 1; Provider: Yael Ray EStart: 59-36-4042Iaicoesr 7 MG 1 tablet at least 30 minutes before first food, beverage or other oral medicine of the day Orally Once a day for 30 day(s) Mar, ActiveStart: 77-47-0410Xddgqlv (0.25 or 0.5 MG/DOSE) 2 MG/1.5ML 0.5mg Subcutaneous weekly for 90 days Jun, ActiveRybelsus 14 MG 1 tablet at least 30 minutes before first food, beverage or other oral medicine of the day Orally Once a day for 90 days ActiveSemaglutide (8 sources)Start: 84-54-6272hbjsvr 1 mg by subcutaneous injection every week Semaglutide 1 mg/dose (4 mg/3 mL) pen injector Active 1 MG SUBCUT every week May 08, 2024 10:22am On Hold: abdominal pain Complies with drug therapy Start: 99-49-1472sbuxbf 1 mg by subcutaneous injection every weekStart: 06-00-2465ryhdyj 1 mg by subcutaneous injection every weekStart: 05-08-2024 inject 1 mg by subcutaneous injection every weekSemaglutide 1 mg/dose (4 mg/3 mL) pen injector Active 1 MG SUBCUT every week May 08, 2024 10:22am Complies with drug therapyStart: 08-76-9157ciczxj 1 mg by subcutaneous injection every weekSemaglutide 1 mg/dose (4 mg/3 mL) pen injector Active 1 MG SUBCUT every week May 08, 2024 10:22amSITagliptin 100 mg oral tablet (7 sources)Dipeptidyl Peptidase 4 InhibitorStart: 04-77-2355mzli 1 tablet by mouth every twenty-four hoursJanuvia 100 MG 1 tablet Orally Once a day for 30 day(s) May, ActiveComment on above:Januvia 100 mg tablet One tab p.o. dailyTapinarof (Vtama) 1 % cream (2 sources)Start: 06-09-2024 End: 16-96-4054Lhnomrhni (Vtama) 1 % cream Indications: Psoriasis vulgaris (CMS/HCC) Apply 1 g topically 1 (one) time for 1 dose Apply 1 g to the ears, nose and scalp, once daily, 30 day supply 60 g 11 06/09/2024 06/09/2024 Active tiZANidine 4 mg oral tablet (20 sources)Central alpha-2 Adrenergic AgonistStart: 09-29-2024 End: 45-62-5819juev 1 tablet by mouth once daily at bedtime as neededTizanidine 4 mg tablet Active 4 MG PO Daily at bedtime as needed for muscle spasticity 2024 3:08pm Complies with drug therapyStart: 12-11-2023 End: 68-01-9935hybb 1 tablet by mouth once daily at bedtimeTizanidine 4 mg tablet Discontinued 0 .ROUTE .COMPLEX December 11, 2023 8:18am March 26, 2024 2:38pm TAKE 1 TABLET BY MOUTH EVERY NIGHT AT BEDTIMEStart: 06-21-2023 tizanidine 4 mg oral capsule Refills(s) 0 Start Date: 06/21/23 Status: Ordered Start: 11-04-2022 End: 86-83-8874nyxy 1 tablet by mouth once daily at bedtimeTizanidine 4 mg tablet Discontinued 4 MG PO Daily at bedtime October 17, 2023 12:00am October 17, 2023 12:57pmtraZODone hydrochloride 50 mg oral tablet (20 sources)Serotonin Reuptake InhibitorStart: 11-18-2024 End: 95-05-9967caxn 1 tablet by mouth once daily at bedtimeTrazodone 50 mg tablet Active 50 MG PO Daily at bedtime December 14, 2024 2:29pm Complies withdrug therapyStart: 05-08-2024 End: 11-42-9783bsdv 1 tablet by mouth once dailyTrazodone 100 mg tablet Discontinued 100 MG PO Daily May 08, 2024 10:09am May 08, 2024 1 0:24amStart: 03-26-2024 End: 92-21-5712ptge 1 tablet by mouth at bedtimeTrazodone 100 mg tablet Discontinued 0 .ROUTE .COMPLEX May 08, 2024 10:24am May 15, 2024 1:20pm TAKE 1 TABLET BY MOUTH AT BEDTIMEStart: 12-12-2023 End: 14-13-7402kghq 1 tablet by mouth at bedtimeTrazodone 50 mg tablet Discontinued 0 .ROUTE .COMPLEX February 12, 2024 12:28pm March 26, 2024 3:17pm TAKE 1 TABLET BY MOUTH AT BEDTIMEStart: 01-01-2017 End: 57-42-4759ozeq 1 tablet by mouth once daily at bedtimeTrazodone 50 mg tablet Discontinued 50 MG PO Daily at bedtime May 27, 2023 1:00am September 11:05am FreeTextSig: TAKE 1 TABLET BY MOUTH AT BEDTIME; Note: Source Status: Taking; Refills: 3; Qty: 90 Tablet; Provider: Yael Ray ECommroque on above:trazodone 50 mg tablet TAKE 1 TABLET BY MOUTH EVERY DAYVitamin D3 25 MCG (1000 UT) (18 sources)take 1 tablet by mouth once dailytake 1 tablet by mouth once daily Vitamin D3 25 MCG (1000 UT) 1 tablet Orally Once a day ActiveZinc (1 source)take 1 tablet by mouth once dailyzinc gluconate 50 mg oral tablet (17 sources)take 1 tablet by mouth every twenty-four hours Completed/Discontinued Medications MedicationDrug Class(es)DatesSig (Normalized)Sig (Original)albuterol 0.83 mg/ml inhalation solution (20 sources)beta2-Adrenergic AgonistStart: 05-27-2023 End: 40-33-6599xcmv 3 mL by inhalation every six hours as neededAlbuterol Sulfate 2.5 mg /3 mL (0.083 %) solution for nebulization Discontinued 3 ML INHALATION Every 6 hours May 27, 2023 1:00am February 12, 2024 10:23am FreeTextSi mL as needed Inhalation every 6 hrs; Note: Source Status: Taking; Refills: 1; Qty: 360 ml; Provider: Yael Azevedoart: 05-27-2023 End: 13-12-8585qjlr 2 puff(s) by inhalation every four hours as neededAlbuterol Sulfate 90 mcg/actuation HFA aerosol inhaler Discontinued 2 PUFF INHALATION Every 4 hoursFebr2023 1:00am February 12, 2024 10:23am FreeTextSi puff Inhalation every 4 hrs prn; Note: Source Status: Taking; Refills: 1; Qty: 1 Each; Provider: Yael Azevedoart: 15-02-3565ehjo 2 puff(s) by inhalation every four hours as neededAlbuterol Sulfate HFA 108 (90 Base) MCG/ACT 2 puff Inhalation every 4 hrs prn Jan, ActiveStart: 17-79-8053elcb 2 puff(s) by inhalation every four hours as neededAlbuterol Sulfate HFA 108 (90 Base) MCG/ACT 2 puff Inhalation every 4 hrs prn Jan, ActiveAlbuterol Sulfate (2.5 MG/3ML) 0.083% 3 mL as needed Inhalation every 6 hrs for 30 days ActiveAlbuterol Sulfate (2.5 MG/3ML) 0.083% 3 mL as needed Inhalation every 6 hrs for 30 days Activeatorvastatin 10 mg oral tablet (20 sources)HMG-CoA Reductase InhibitorStart: 10-29-2024 End: 30-68-9135jgfx 1 tablet by mouth once dailyAtorvastatin 10 mg tablet Discontinued 10 MG PO Daily November 06, 2024 3:30pm November 18, 2024 8:02amStart: 12-10-2023 End: 21-51-4266ojfh 1 tablet by mouth once dailyAtorvastatin 10 mg tablet Discontinued 0 .ROUTE .COMPLEX December 10, 2023 1:02pm February 12, 2024 10:24am TAKE 1 TABLET BY MOUTH DAILYStart: 05-27-2023 End: 76-40-2601oktv 1 tablet by mouth once dailyAtorvastatin 10 mg tablet Discontinued 1 TAB PO Daily May 27, 2023 1:00am December 10, 2023 1:02pm FreeTextSig: TAKE 1 TABLET BY MOUTH DAILY; Note: Source Status: Taking; Refills: 3; Qty: 90Tablet; Provider: Yael Ray Ecefdinir 300 mg oral capsule (15 sources)Cephalosporin AntibacterialStart: 06-29-2024 End: 09-53-7225eoes 1 capsule by mouth twice dailyCefdinir 300 mg capsule Discontinued 300 MG PO Twice daily September 10, 2024 11:11am September 29, 2024 10:35amcephalexin 500 mg oral capsule (9 sources)Cephalosporin AntibacterialStart: 12-26-2023 End: 81-27-3989veey 1 capsule by mouth twice dailyCephalexin 500 mg capsule Discontinued 500 MG PO Twice daily December 26, 2023 12:00am January 07, 2024 10:36amciprofloxacin 250 mg oral tablet (20 sources)Quinolone AntimicrobialStart: 01-07-2024 End: 07-68-8112ekyp 1 tablet by mouth twice dailyCiprofloxacin Hcl 250 mg tablet Discontinued 250 MG PO Twice daily January 07, 2024 12:00am January 09, 2024 10:18amStart: 71-44-9997vxdz 1 tablet by mouth every twelve hours cyclobenzaprine hydrochloride 5 mg oral tablet (9 sources)Muscle RelaxantStart: 09-17-2023 End: 03-58-8811knia 1 tablet by mouth once daily at bedtimeCyclobenzaprine 5 mg tablet Discontinued 5 MG PO Daily at bedtime September 17, 2023 12:00am October 162023 11:39amDULoxetine 60 mg delayed release oral capsule (9 sources)Serotonin and Norepinephrine Reuptake InhibitorStart: 12-17-2023 End: 78-92-3641sexn 1 capsule by mouth once dailyDuloxetine 60 mg capsule,delayed release(DR/EC) Discontinued 60 MG PO Daily December 17, 2023 12:00am January 07, 2024 10:31amfamotidine 20 mg oral tablet (11 sources)Histamine-2 Receptor AntagonistStart: 10-12-2024 End: 73-53-0134kfnr 1 tablet by mouth once daily at bedtimeFamotidine 20 mg tablet Discontinued 20 MG PO Daily at bedtime October 29, 2024 12:00am December 14, 2024 2:31pmmeloxicam 15 mg oral tablet (18 sources)Nonsteroidal Anti-inflammatory DrugStart: 10-26-2024 End: 73-99-0177kwgd 1 tablet by mouth once dailyMeloxicam 15 mg tablet Discontinued 0 .ROUTE .COMPLEX 90 October 26, 2024 1:08pm October 29, 2024 1:53pm TAKE 1 TABLET BY MOUTH EVERY DAYStart: 09-29-2024 End: 62-39-4432btls 1 tablet by mouth once dailyMeloxicam 15 mg tablet Discontinued 15 MG PO Daily September 29, 2024 12:00am October 26, 2024 1:06pm24 hr metFORMIN hydrochloride 500 mg extended release oral tablet (2 sources)Biguanidetake 2 tablets by mouth twice dailymetFORMIN ER (GLUCOPHAGE XR) 500 mg 24 hr tablet metformin ER 500 mg tablet,extended release 24 hr TAKE 2 TABLETS BY MOUTH TWICE A DAY 0 ActiveComment on above:metformin ER 500 mg tablet,extended release 24 hr TAKE 2 TABLETS BY MOUTH TWICE A DAYmethylPREDNISolone 4 mg oral tablet (15 sources)CorticosteroidStart: 06-29-2024 End: 42-31-7864hsgd 1 tablet by mouth onceMethylprednisolone (Medrol (Aldair)) 4 mg tablets,dose pack Discontinued 0 PO per package directions September 10, 2024 11:11am September 29, 2024 10:35am PO PER PKG DIR for 6 days24 hr metoprolol succinate 25 mg extended release oral tablet (12 sources)beta-Adrenergic BlockerStart: 09-05-2023 End: 13-35-2469glso 1 tablet by mouth once dailyMetoprolol Succinate 25 mg tablet extended release 24 hr Discontinued 25 MG PO Daily September 17, 2023 12:00am February 12, 2024 10:25amminocycline 50 mg oral capsule (20 sources)Tetracycline-class DrugStart: 05-27-2023 End: 02-01-6232hnsg 1 capsule by mouth once dailyMinocycline 50 mg capsule Discontinued 50 MG PO Daily May 27, 2023 1:00am June 03, 2023 2:14pm FreeTextSi capsule once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 mg/nINjfd20-382CwakjqixyqFulton County Health CenterComment on above:Order Comment: Waived Testing in the ED is performed under the ED CLIA certificate #[id number].Result Comment: [email or web address] Performed By: #### [id number] #### [facility] ([facility] [address] [place], [place] [address]qr [id number]: Pain - Adult Goal: Verbalizes/displays adequate comfort [...] maintain an acceptable level of pain Outcome: ProgressingNormalUniversity Morrow County HospitalBASIC METABOLIC PANELon 26-48-3865Lbzty gap [Moles/Vol]10 mmol/LNormal7-20UnFulton County Health CenterComment on above:Performed By: #### [id number] #### [facility] ([facility] [address] [place], [place] [address]Wmwwqxk [Mass/Vol]9.1 mg/dLNormal8.6-10.3UnFulton County Health CenterComment on above:Performed By: #### [id number] #### [facility] ([facility]) [address] [place] [address]Hzdkrked [Moles/Vol]101 mmol/UMrjkyj81-937MgoopsbojmFulton County Health CenterComment on above:Performed By: #### [id number] #### [facility] ([facility]) [address] [place] [address]JL5 [Moles/Vol]29 mmol/AItfhpl79-11GwjuewibhwFulton County Health CenterComment on above:Performed By: #### [id number] #### [facility] ([facility]) [address] [place] [address]Nvfdkkovll [Mass/Vol]0.86 mg/dLNormal0.60-1.20UnFulton County Health CenterComment on above:Performed By: #### [id number] #### [facility] ([facility]) [address] [place] [address]KYXXZHQVXL FILTRATION RATE ML/MIN/1.73 SQ M.AEZTLOTVZ83.4 mL/min/1.73m*2Normal>60.0UnFulton County Health CenterComment on above: Result Comment: [facility]???s estimated glomerular filtration rate (eGFR) will no [...] potential consequences that do not disproportionately affect anyone group of individuals.Performed By: #### [id number] #### [facility] ([facility]) [address] [place] [address]Lhxhfkz [Mass/Vol]126 mg/jEYklb54-596XysfbkzwtsFulton County Health CenterComment on above:Performed By: #### [id number] #### [facility] ([facility]) [address] [facility] [place], [place] [address]Rrrpbxxqv [Moles/Vol]3.8 mmol/LNormal3.5-5.1UnFulton County Health CenterComment on above:Performed By: #### [id number] #### [facility] ([facility]) [address] [place], [place] [address]Tkmnsy [Moles/Vol]136 mmol/OPwknbw040-770YvwmnmrsotFulton County Health CenterComment on above:Performed By: #### [id number] #### [facility] ([facility]) [address] [place], [place] [address]Nlwb nitrogen [Mass/Vol]9 mg/dLNormal7-25UnFulton County Health CenterComment on above:Performed By: #### [id number] #### [facility] ([facility]) [address] [place], [place] [address]PBQA NITROGEN/CREATININE (MASS RATIO) IN SER/PLAS10.5Normal [facility] RehabilitationComment on above:Performed By: #### [id number] #### [facility] ([facility]) [address] [place], [place] [address]VBN WITH AUTO DIFFERENTIALon 57-24-8722Kuaoosdof (Bld) [#/Vol] 0.03 10*3/uLNormal0.00-0.20UnFulton County Health CenterComment on above: Performed By: #### [id number] #### [facility] ([facility]) [address] [place], [place] [address]Msegkrwkx/100 WBC (Bld)0.5 %Normal0.0-1.0UnFulton County Health CenterComment on above:Performed By: #### [id number] #### [facility] ([facility]) [address] [place], [place] [address]Pmtcahklblw (Bld) [#/Vol]0.23 10*3/uLNormal0.00-0.50UnFulton County Health CenterComment on above:Performed By: #### [id number] #### [facility] ([facility]) [address] [place] [address]Tgghkllokdr/100 WBC (Bld)3.6 %Normal0.0-6.0UnFulton County Health CenterComment on above:Performed By: #### [id number] #### [facility] ([facility]) [address] [place], [place] [address]Muxkzoscvly distribution width (RBC) [Ratio]12.4 %Normal 11.5-15.0UnFulton County Health CenterComment on above:Performed By: #### [id number] #### [facility] ([facility]) [address] [place] [address]MXIKHXOEYBT MEAN CORPUSCULAR HEMOGLOBIN CONCENTRATION (G/DL) BY BQUOTKWFH49.2 g/aYVurd59.0-35.0UnFulton County Health CenterComment on above:Performed By: #### [id number] #### [facility] ([facility]) [address] [place] [address]Uvqltffewp (Bld) [Volume fraction]36.9 %Geysdb59.0-45.0 [facility] RehabilitationComment on above:Performed By: #### [id number] #### [facility] ([facility]) [address] [place] [address]Zqtwvdehlb (Bld) [Mass/Vol]13.0 g/gJRmozgc28.0-15.0UnFulton County Health CenterComment on above:Performed By: #### [id number] #### [facility] ([facility]) [address] [place] [address]Xihomjws granulocytes (Bld) [#/Vol]0.03 10*3/uLNormal0.00-0.20 [facility] RehabilitationComment on above:Performed By: #### [id number] #### [facility] ([facility]) [address] [place] [address]Baqwrhon granulocytes/100 WBC (Bld)0.5 %Normal0.0-1.0UnFulton County Health CenterComment on above:Performed By: #### [id number] #### [facility] ([facility]) [address] [place] [address]Hzvloarhytv (Bld) [#/Vol]2.80 10*3/uLNormal1.20-4.00UnFulton County Health CenterComment on above:Performed By: #### [id number] #### [facility] ([facility]) [address] [place], [place] [address]Edaopqilglx/100 WBC (Bld)44.0 %Sqfvnc09.0-45.0UnFulton County Health CenterComment on above:Performed By: #### [id number] #### [facility] ([facility]) [address] [place] [address]SLJ (RBC) [Entitic mass]32.1 oqMntrkz08.0-33.0UnFulton County Health CenterComment on above:Performed By: #### [id number] #### [facility] ([facility]) [address] [facility] [place], [place] [address]ANB (RBC) [Entitic vol]91.1 wJTksfmh94.0-98.0UnFulton County Health CenterComment on above:Performed By: #### [id number] #### [facility] ([facility]) [address] [facility] [place], [place] [address]Tvjpcqfgs (Bld) [#/Vol]0.30 10*3/uLNormal0.10-1.00UnFulton County Health CenterComment on above:Performed By: #### [id number] #### [facility] ([facility]) [address] [place] [address]Dssgaovoz/100 WBC (Bld)4.7 %Low5.0-12.0UnFulton County Health CenterComment on above:Performed By: #### [id number] #### [facility] ([facility]) [address] [place], [place] [address]Trtxksdrlto (Bld) [#/Vol]2.97 10*3/uLNormal1.60-7.60UnFulton County Health CenterComment on above:Performed By: #### [id number] #### [facility] ([facility]) [address] [place] [address]Amcgnhauwir/100 WBC (Bld)46.7 %Fcxswi97.0-72.0UnFulton County Health CenterComment on above:Performed By: #### [id number] #### [facility] ([facility]) [address] [place] [address]JSSF (PER 100 WBCS) BY AUTOMATED COUNT0.0 %Rkldll0PiqcydjffoFulton County Health CenterComment on above:Performed By: #### [id number] #### [facility] ([facility]) [address] [place] [address]KXEOFHKKX (10*3/UL) IN BLOOD AUTOMATED [id number] 10*3/uLNormal 150-400UnFulton County Health CenterComment on above:Performed By: #### [id number] #### [facility] ([facility]) [address] [place] [address]LFE (Bld) [#/Vol]4.05 10*6/uLNormal3.80-5.00UnFulton County Health CenterComment on above:Performed By: #### [id number] #### [facility] ([facility]) [address] [address]WRK (Bld) [#/Vol]6.36 10*3/uLNormal4.00-10.60UnFulton County Health CenterComment on above:Performed By: #### [id number] #### [facility] ([facility]) [address] [place] [address]OKRGGQM FUNCTION PANELon 99-68-6860Jafdtwi [Mass/Vol]4.3 g/dL Normal3.5-5.7UnFulton County Health CenterComment on above:Performed By: #### [id number] #### [facility] ([facility]) [address] [place] [address]YSS [Catalytic activity/Vol]71 U/DCwfiue46-271ImirxgrnewFulton County Health CenterComment on above:Performed By: #### [id number] #### [facility] ([facility]) [address] [address]LDO [Catalytic activity/Vol]26 U/LNormal7-52UnFulton County Health CenterComment on above:Performed By: #### [id number] #### [facility] ([facility]) [address] [address]YUY [Catalytic activity/Vol]25 U/BLdbygr36-12YketeeuphgFulton County Health CenterComment on above:Performed By: #### [id number] #### [facility] ([facility]) [address] [place] [address]Zazbwtrfl [Mass/Vol]1.0 mg/dLNormal0.3-1.0UnFulton County Health CenterComment on above:Performed By: #### [id number] #### [facility] ([facility]) [address] [place] [address]Mcagrvcot [Mass/Vol]0.2 mg/dLNormal0-0.2UnFulton County Health CenterComment on above:Performed By: #### [id number] #### [facility] ([facility]) [address] [place] [address]Wrtlett [Mass/Vol]7.1 g/dLNormal6.0-8.3UnFulton County Health CenterComment on above:Performed By: #### [id number] #### [facility] ([facility]) [address] [place] [address]QMLZMKTSkh 12-80-3419GNNLAFWFKgznbmi off unit for swallow study. NormalUnFulton County Health CenterPOCT GLUCOSE METER UNSOLICITED RESULTS on 15-87-1832Aoelbxf [Mass/Vol]124 mg/iRBghf78-419WklokkiiwgFulton County Health CenterComment on above:Order Comment: Waived Testing in the ED is performed under the ED CLIA certificate #[id number].Result Comment: bacresPerformed By: #### [id number] ####[facility] (BEAKER)[address] [place] [address] Glucose [Mass/Vol]125 mg/tHYsrk66-718NfxctziwazFulton County Health CenterComment on above:Order Comment: Waived Testing in the ED is performed under the ED CLIA certificate #[id number].Result Comment: [email or web address] By: #### [id number] ####[facility] (BEAKER)[address] [place] [address]Apnudhc [Mass/Vol]200 mg/cGKntq68-206MoqgcgewjeFulton County Health CenterComment on above:Order Comment: Waived Testing in the ED is performed under the ED CLIA certificate #[id number].Result Comment: [email or web address] By: #### [id number] #### [facility] (BEAKER) [address] [place] [address]Tiyogxr [Mass/Vol]138 mg/bWBbve75-995KpmefljimcFulton County Health CenterComment on above:Order Comment: Waived Testing in the ED is performed under the ED CLIA certificate #[id number].Result Comment: [email or web address] Performed By: #### [id number] #### [facility] ([facility]) [address] [place] [address]27ch 27-31-244700Lnd patient is Moderately Stable - Low risk of patient condition declining or worsening The patient's goals for the shift include pain control, testing The clinical goals for the shift include stable vitals, pain control, fall preventionNormalUniversuc medical center of [facility]30The patient is Moderately Stable - Low risk [...] Free from fall injury 11/01/20241758 by Vic [place], RN Outcome: Progressing 11/01/20241757 by Vic Montes [...] Goal: STG-Pt will verbalize decreased discomfort Outcome: ProgressingNormalUniversHolzer Health SystemBASIC METABOLIC PANELon 25-16-2845Zjwsb gap [Moles/Vol]10 mmol/LNormal7-20UnFulton County Health CenterComment on above:Performed By: #### [id number] #### [facility] ([facility]) [address] [place], [place] [address]Ghnouls [Mass/Vol]8.7 mg/dLNormal8.6-10.3UnFulton County Health CenterComment on above:Performed By: #### [id number] #### [facility] ([facility]) [address] [place], [place] [address]Vykzuqtt [Moles/Vol]103 mmol/GDybmdk42-780TuzjwjahxvFulton County Health CenterComment on above:Performed By: #### [id number] #### [facility] ([facility]) [address] [place], [place] [address]HD4 [Moles/Vol]28 mmol/RRaetgp07-61TgkwjiamcmFulton County Health CenterComment on above:Performed By: #### [id number] #### [facility] ([facility]) [address] [place], [place] [address]Wdbgafdorv [Mass/Vol]0.88 mg/dLNormal0.60-1.20UnFulton County Health CenterComment on above:Performed By: #### [id number] #### [facility] ([facility]) [address] [place] [address]CDWPSQEIBH FILTRATION RATE ML/MIN/1.73 SQ M.UIYLJPFXD78.5 mL/min/1.73m*2Normal>60.0UnFulton County Health CenterComment on above: Result Comment: [facility]???s estimated glomerular filtration rate (eGFR) will no [...] potential consequences that do not disproportionately affect anyone group of individuals.Performed By: #### [id number] #### [facility] ([facility]) [address] [place] [address]Pbqpsqg [Mass/Vol]124 mg/kDAttn43-110GemhihkwzjFulton County Health CenterComment on above:Performed By: #### [id number] #### [facility] ([facility]) [address] [place] [address]Byekfqzsq [Moles/Vol]3.8 mmol/LNormal3.5-5.1UnFulton County Health CenterComment on above:Performed By: #### [id number] #### [facility] ([facility]) [address] [place] [address]Vlraiy [Moles/Vol]137 mmol/VJiydfv228-306EqqqflzpeeFulton County Health CenterComment on above:Performed By: #### [id number] #### [facility] ([facility]) [address] [place] [address]Ugdc nitrogen [Mass/Vol]10 mg/dLNormal7-25UnFulton County Health CenterComment on above:Performed By: #### [id number] #### [facility] ([facility]) [address] [place] [address]XBEV NITROGEN/CREATININE (MASS RATIO) IN SER/PLAS11.4Normal [facility] RehabilitationComment on above:Performed By: #### [id number] #### [facility] ([facility]) [address] [place] [address]CER WITH AUTO DIFFERENTIALon 51-24-9026Xzlorvzsi (Bld) [#/Vol] 0.03 10*3/uLNormal0.00-0.20UnFulton County Health CenterComment on above: Performed By: #### [id number] ####[facility] ([facility])[address] [place], [place] [address]Agcewiwfp/100 WBC (Bld)0.5 %Normal0.0-1.0UnFulton County Health CenterComment on above:Performed By: #### [id number] ####[facility] ([facility])[address] [place], [place] [address]Cdvtomjxezt (Bld) [#/Vol]0.16 10*3/uL Normal0.00-0.50UnFulton County Health CenterComment on above:Performed By: #### [id number] ####[facility] ([facility])[address] [place] [address] Eosinophils/100 WBC (Bld)2.7 %Normal0.0-6.0UnFulton County Health Center Comment on above:Performed By: #### [id number] ####[facility] ([facility])[address] [place], [place] [address]Pouybgllkpq distribution width (RBC) [Ratio]12.4 % Pzvohw63.5-15.0UnFulton County Health CenterComment on above:Performed By: #### [id number] ####[facility] ([facility])[address] [place] [address] ERYTHROCYTE MEAN CORPUSCULAR HEMOGLOBIN CONCENTRATION (G/DL) BY RGZNVRADR69.5 g/lAZqpy74.0-35.0UnFulton County Health CenterComment on above:Performed By: #### [id number] ####[facility] ([facility])[address] [place] [address]Eakotndmcm (Bld) [Volume fraction]34.4 %Low36.0-45.0UnFulton County Health CenterComment on above:Performed By: #### [id number] ####[facility] ([facility])[address] [place] [address]Pgbgljkjzg (Bld) [Mass/Vol]12.2 g/dL Kkzhoi72.0-15.0UnFulton County Health CenterComment on above:Performed By: #### [id number] ####[facility] ([facility])[address] [place] [address] Immature granulocytes (Bld) [#/Vol]0.01 10*3/uLNormal0.00-0.20UnFulton County Health CenterComment on above:Performed By: #### [id number] ####[facility] ([facility])[address] [place] [address]Lxaryncc granulocytes/100 WBC (Bld)0.2 %Normal0.0-1.0UnFulton County Health CenterComment on above: Performed By: #### [id number] ####[facility] ([facility])[address] [place] [address]Ntomjiuwuoj (Bld) [#/Vol]3.10 10*3/uLNormal1.20-4.00 [facility] RehabilitationComment on above:Performed By: #### [id number] ####[facility] ([facility])[address] [place], [place] [address]Shjassxtwhh/100 WBC (Bld)51.7 %High20.0-45.0UnFulton County Health CenterComment on above: Performed By: #### [id number] ####[facility] ([facility])[address] [place] [address]ZOE (RBC) [Entitic mass]32.4 veAqjmxh29.0-33.0UnFulton County Health CenterComment on above:Performed By: #### [id number] ####[facility] ([facility])[address] [place] [address]SUQ (RBC) [Entitic vol] 91.2 wIExmjxw33.0-98.0UnFulton County Health CenterComment on above: Performed By: #### [id number] ####[facility] ([facility])[address] [place] [address]Mhpktznju (Bld) [#/Vol]0.29 10*3/uLNormal0.10-1.00UnFulton County Health CenterComment on above:Performed By: #### [id number] ####[facility] ([facility])[address] [place] [address]Donnwuszg/100 WBC (Bld) 4.8 %Low5.0-12.0UnFulton County Health CenterComment on above:Performed By: #### [id number] ####[facility] ([facility])[address] [place] [address]Tzhlxaqbuvr (Bld) [#/Vol]2.41 10*3/uLNormal1.60-7.60UnFulton County Health CenterComment on above:Performed By: #### [id number] ####[facility] ([facility])[address] [place] [address]Xkctqyrbllf/100 WBC (Bld)40.1 %Normal 40.0-72.0UnFulton County Health CenterComment on above:Performed By: #### [id number] ####[facility] ([facility])[address] [place] [place] [address]UNOL (PER 100 WBCS) BY AUTOMATED COUNT0.0 %Cuzmii7GdfqjycuhvFulton County Health Center Comment on above:Performed By: #### [id number] ####[facility] ([facility])[address] [place] [address]HUZMXXEXI (10*3/UL) IN BLOOD AUTOMATED [id number] 10*3/zPTiv518-482TulmxdyxmrFulton County Health CenterComment on above:Performed By: #### [id number] ####[facility] ([facility])[address] [place] [address]EFH (Bld) [#/Vol]3.77 10*6/uLLow3.80-5.00UnFulton County Health CenterComment on above:Performed By: #### [id number] ####[facility] ([facility])[address] [place] [address]PJK (Bld) [#/Vol]6.00 10*3/uLNormal 4.00-10.60UnFulton County Health CenterComment on above:Performed By: #### [id number] ####[facility] ([facility])[address] [place] [address]OJLAOWE FUNCTION PANELon 00-42-6288Cgcastc [Mass/Vol]4.1 g/dLNormal3.5-5.7UnFulton County Health CenterComment on above:Performed By: #### [id number] #### [facility] ([facility]) [address] [place] [address]OKJ [Catalytic activity/Vol]65 U/IRzgqcc43-830CarmwtaizuFulton County Health CenterComment on above:Performed By: #### [id number] #### [facility] ([facility]) [address] [place] [address]HQG [Catalytic activity/Vol]25 U/LNormal7-52UnFulton County Health CenterComment on above:Performed By: #### [id number] #### [facility] ([facility]) [address] [place] [address]KXM [Catalytic activity/Vol]22 U/YBhymqv53-12VddgfgnestFulton County Health CenterComment on above:Performed By: #### [id number] #### [facility] ([facility]) [address] [place] [address]Lzrarmxda [Mass/Vol]0.8 mg/dLNormal0.3-1.0UnFulton County Health CenterComment on above:Performed By: #### [id number] #### [facility] ([facility]) [address] [place] [address]Bzrwbswpy [Mass/Vol]0.2 mg/dLNormal0-0.2UnFulton County Health CenterComment on above:Performed By: #### [id number] #### [facility] ([facility]) [address] [place], [place] [address]Gnybcas [Mass/Vol]6.7 g/dLNormal6.0-8.3UnFulton County Health CenterComment on above:Performed By: #### [id number] #### [facility] ([facility]) [address] [place], [place] [address]GZPC GLUCOSE METER UNSOLICITED RESULTSon [id number] [Mass/Vol]155 mg/oBNqdb04-796JsiingtztxFulton County Health CenterComment on above:Order Comment: Waived Testing in the ED is performed under the ED CLIA certificate #[id number].Result Comment: bacresPerformed By: #### [id number] #### [facility] ([facility]) [address], [place] [address]Ugszaew [Mass/Vol]146 mg/hMQhyl86-056WcbfnupbrgFulton County Health CenterComment on above:Order Comment: Waived Testing in the ED is performed under the ED CLIA certificate #[id number].Result Comment: [email or web address] Performed By: #### [id number] #### [facility] ([facility]) [address] [place], [place] [address]Ljpgrwl [Mass/Vol]127 mg/aYIxao23-032CjhlhzjhdyFulton County Health CenterComment on above:Order Comment: Waived Testing in the ED is performed under the ED CLIA certificate #[id number].Result Comment: [email or web address] Performed By: #### [id number] #### [facility] ([facility]) [address] [place], [place] [address]Obiwuwg [Mass/Vol]166 mg/rTRfas85-824GvqzmmdfysFulton County Health CenterComment on above:Order Comment: Waived Testing in the ED is performed under the ED CLIA certificate #[id number].Result Comment: [email or web address] Performed By: #### [id number] #### [facility] (BEM[facility]) [address] [place], [place] [address]rx [id number]: Pain - Adult Goal: Verbalizes/displays adequate comfort level or baseline comfort level Outcome: Progressing The patient is Moderately Stable - Low risk of patient condition declining or worsening The patient's goals for the shift include pain control, comfort The clinical goals for the shift include VSS, pain controlNoalUVan [facility]30The patient is Moderately Stable - Low risk [...] Goal: STG-Pt will verbalize decreased discomfort Outcome: ProgressingNormalUniknapp medical [facility]30Problem: Pain - Adult Goal: Verbalizes/displays adequate comfort level or baseline comfort level Outcome: Progressing Flowsheets (Taken 10/30/2024 1919) Verbalizes/displays adequate comfort level or baseline comfort [...] and behaviors that affect risk of falls Carmen fall precautions as indicated by assessment Educate [...] treatment plan, assessment and coordination of needed resources.NormalUnFulton County Health CenterBASIC METABOLIC PANELon 71-05-6050Gmtdu gap [Moles/Vol]9 mmol/LNormal7-20UnFulton County Health CenterComment on above:Performed By: #### [id number] ####[facility] (BEAKER)[address] [place], [place] [address]Bzqyklg [Mass/Vol]8.6 mg/dLNormal8.6-10.3UnFulton County Health CenterComment on above:Performed By: #### [id number] ####[facility] (BEAKER)[address] [place] [address] Chloride [Moles/Vol]104 mmol/SIzyebu48-624WyjkwgyvtdFulton County Health Center Comment on above:Performed By: #### [id number] ####[facility] ([facility])[address] [address]EU9 [Moles/Vol]27 mmol/TRiufyq07-71EzkdjfwqdcFulton County Health CenterComment on above:Performed By: #### [id number] ####[facility] ([facility])[address] [place] [address]Fwglunqbvo [Mass/Vol]0.93 mg/dL Normal0.60-1.20UnFulton County Health CenterComment on above:Performed By: #### [id number] ####[facility] ([facility])[address] [place] [address] GLOMERULAR FILTRATION RATE ML/MIN/1.73 SQ M.PIIMWCMQM50.1 mL/min/1.73m*2Normal >60.0UnFulton County Health CenterComment on above:Result Comment: [facility]???s estimated glomerular filtration rate (eG FR) will no longer include consideration of race [...] potential consequences that do not disproportionately affect anyone group of individuals. Performed By: #### [id number] ####[facility] ([facility])[address] [place] [address]Lwrxtcn [Mass/Vol]99 mg/dDFdlggc92-148DghlulietoFulton County Health CenterComment on above:Performed By: #### [id number] ####[facility] ([facility])[address] [place] [address]Tvtgoyxlm [Moles/Vol]4.3 mmol/LNormal 3.5-5.1UnFulton County Health CenterComment on above:Performed By: #### [id number] ####[facility] ([facility])[address] [place] [address]Taunty [Moles/Vol]136 mmol/DKfuiov767-546XsmkaolhewFulton County Health CenterComment on above:Performed By: #### [id number] ####[facility] ([facility])[address] [place] [address]Gjkp nitrogen [Mass/Vol]12 mg/dLNormal7-25UnFulton County Health CenterComment on above:Performed By: #### [id number] ####[facility] ([facility])[address] [place] [address]NTYG NITROGEN/CREATININE (MASS RATIO) IN SER/PLAS12.9NormalUniversHolzer Health SystemComment on above: Performed By: #### [id number] ####[facility] ([facility])[address] [place], [place] [address]NWU WITH AUTO DIFFERENTIALon 35-51-8791Kunviqlsc (Bld) [#/Vol]0.03 10*3/uLNormal0.00-0.20UnFulton County Health CenterComment on above: Performed By: #### [id number] #### [facility] ([facility]) [address] [place] [address]Sxtsjfogo/100 WBC (Bld)0.4 %Normal0.0-1.0UnFulton County Health CenterComment on above:Performed By: #### [id number] #### [facility] ([facility]) [address] [place], [place] [address]Eybvhmbdnyo (Bld) [#/Vol]0.13 10*3/uLNormal0.00-0.50UnFulton County Health CenterComment on above:Performed By: #### [id number] #### [facility] ([facility]) [address] [place] [address]Yckwrwhljxb/100 WBC (Bld)1.6 %Normal0.0-6.0UnFulton County Health CenterComment on above:Performed By: #### [id number] #### [facility] ([facility]) [address] [place] [address]Eqrbuyptzll distribution width (RBC) [Ratio]12.6 %Normal 11.5-15.0UnFulton County Health CenterComment on above:Performed By: #### [id number] #### [facility] ([facility]) [address] [place] [address]DULPOQBZCMT MEAN CORPUSCULAR HEMOGLOBIN CONCENTRATION (G/DL) BY WYQWJJLKO56.7 g/iZAorgbh99.0-35.0UnFulton County Health CenterComment on above:Performed By: #### [id number] #### [facility] ([facility]) [address] [place] [address]Wmmugbvczl (Bld) [Volume fraction]34.0 %Low36.0-45.0UnFulton County Health CenterComment on above:Performed By: #### [id number] #### [facility] ([facility]) [address] [place], [place] [address]Qtmorvxuqh (Bld) [Mass/Vol]11.8 g/dLLow12.0-15.0UnFulton County Health CenterComment on above:Performed By: #### [id number] #### [facility] ([facility]) [address] [place] [address]Ouenibpq granulocytes (Bld) [#/Vol]0.02 10*3/uLNormal0.00-0.20 [facility] RehabilitationComment on above:Performed By: #### [id number] #### [facility] ([facility]) [address] [place], [place] [address]Xokudjmr granulocytes/100 WBC (Bld)0.2 %Normal0.0-1.0UnFulton County Health CenterComment on above:Performed By: #### [id number] #### [facility] ([facility]) [address] [place], [place] [address]Rjxiuvmgrup (Bld) [#/Vol]4.13 10*3/uLHigh1.20-4.00UnFulton County Health CenterComment on above:Performed By: #### [id number] #### [facility] ([facility]) [address] [place] [address]Erbusesobhb/100 WBC (Bld)51.3 %High20.0-45.0UnFulton County Health CenterComment on above:Performed By: #### [id number] #### [facility] ([facility]) [address] [place] [address]GHJ (RBC) [Entitic mass]31.8 jgXwdgpn22.0-33.0UnFulton County Health CenterComment on above:Performed By: #### [id number] #### [facility] ([facility]) [address] [place] [address]XJM (RBC) [Entitic vol]91.6 rEGbevue60.0-98.0UnFulton County Health CenterComment on above:Performed By: #### [id number] #### [facility] ([facility]) [address] [place] [address]Cpzwclwhs (Bld) [#/Vol]0.36 10*3/uLNormal0.10-1.00UnFulton County Health CenterComment on above:Performed By: #### [id number] #### [facility] ([facility]) [address] [place] [address]Epliorrdm/100 WBC (Bld)4.5 %Low5.0-12.0UnFulton County Health CenterComment on above:Performed By: #### [id number] #### [facility] ([facility]) [address] [place], [place] [address]Wxixqmofsea (Bld) [#/Vol]3.38 10*3/uLNormal1.60-7.60UnFulton County Health CenterComment on above:Performed By: #### [id number] #### [facility] ([facility]) [address] [place], [place] [address]Lnbhkrvylnx/100 WBC (Bld)42.0 %Neiqzm77.0-72.0UnFulton County Health CenterComment on above:Performed By: #### [id number] #### [facility] ([facility]) [address] [address]BAQI (PER 100 WBCS) BY AUTOMATED COUNT0.0 %Snzbpg3KvwliqcrtsFulton County Health CenterComment on above:Performed By: #### [id number] #### [facility] ([facility]) [address] [address]QSBUVLLDS (10*3/UL) IN BLOOD AUTOMATED [id number] 10*3/uLLow 150-400UnFulton County Health CenterComment on above:Performed By: #### [id number] #### [facility] ([facility]) [address] [address]QPP (Bld) [#/Vol]3.71 10*6/uLLow3.80-5.00UnFulton County Health CenterComment on above:Performed By: #### [id number] #### [facility] ([facility]) [address] [address]LYF (Bld) [#/Vol]8.05 10*3/uLNormal4.00-10.60UnFulton County Health CenterComment on above:Performed By: #### [id number] #### [facility] ([facility]) [address] [place] [address]NZDJHQV FUNCTION PANELon 27-64-6420Xeyxdth [Mass/Vol]3.9 g/dL Normal3.5-5.7UnFulton County Health CenterComment on above:Performed By: #### [id number] ####[facility] ([facility])[address] [place] [address]STZ [Catalytic activity/Vol]63 U/BZyuxdb48-990SaggtgibgtFulton County Health Center Comment on above:Performed By: #### [id number] ####[facility] ([facility])[address] [place] [address]OMI [Catalytic activity/Vol]24 U/LNormal7-52 [facility] RehabilitationComment on above:Performed By: #### [id number] ####[facility] [place] [address]ZIY [Catalytic activity/Vol]22 U/AEatkxq77-43LzakddhnajFulton County Health CenterComment on above:Performed By: #### [id number] ####[facility] ([facility])[address], [place] [address]Peeubwovj [Mass/Vol]1.0 mg/dLNormal0.3-1.0UnFulton County Health CenterComment on above:Performed By: #### [id number] ####[facility] ([facility])[address], [place] [address]Tefrnkbgb [Mass/Vol]0.3 mg/dLHigh 0-0.2UnFulton County Health CenterComment on above:Performed By: #### [id number] ####[facility] ([facility])[address], [place] [address]Kaprkqt [Mass/Vol]6.3 g/dLNormal6.0-8.3UnFulton County Health CenterComment on above:Performed By: #### [id number] ####[facility] ([facility])[address], [place] [address]BOMS GLUCOSE METER UNSOLICITED RESULTSon 37-76-8304Jnytmfs [Mass/Vol]124 mg/rJYvvi80-653IoswrlurbgFulton County Health CenterComment on above:Order Comment: Waived Testing in the ED is performed under the ED CLIA certificate #[id number].Result Comment: [email or web address] By: #### [id number] #### [facility] ([facility]) [address] [place], [place] [address]Zqvvfhi [Mass/Vol]121 mg/pIZfgv44-253TysqnrqvdnFulton County Health CenterComment on above:Order Comment: Waived Testing in the ED is performed under the ED CLIA certificate #[id number].Result Comment: [email or web address] Performed By: #### [id number] #### [facility] [address] [place], [place] [address]Lopgejb [Mass/Vol]115 mg/aTYklz36-673PzwoozggxsFulton County Health CenterComment on above:Order Comment: Waived Testing in the ED is performed under the ED CLIA certificate #[id number].Result Comment: [email or web address] Performed By: #### [id number] #### [facility] (BEAKER) [address] [place], [place] [address]Rzfyiui [Mass/Vol]122 mg/fOZacz86-577FblifflqdwFulton County Health CenterComment on above:Order Comment: Waived Testing in the ED is performed under the ED CLIA certificate #[id number].Result Comment: [email or web address] Performed By: #### [id number] ####[facility] (BEAKER)[address] [place] [address] 20-91-595256Hzh patient is Moderately Stable - Low risk [...] Goal: STG-Pt will verbalize decreased discomfort Outcome: ProgressingNormalUniversity of [facility]30The patient is Problem: Pain - Adult Goal: Verbalizes/displays adequate comfort level or baseline comfort level Outcome: Progressing Flowsheets (Taken 10/30/2024 003) Verbalizes/displays adequate comfort level or baseline comfort [...] fall injury Outcome: Progressing Flowsheets (Taken 10/30/2024 0037) Free from fall injury: Assess patient frequently for physical needs Identify cognitive and physical deficits and behaviors that affect risk of falls Carmen fall precautions as indicated by assessment Educate [...] maintained or improved Outcome: Progressing Flowsheets (Taken 10/30/202429) Care Plan - Patient's Chronic Conditions and [...] coordination with needed resources, review of treatment plan.NormalUnFulton County Health CenterBASIC METABOLIC PANELon 32-61-9458Vgvgi gap [Moles/Vol]10 mmol/LNormal7-20UnFulton County Health CenterComment on above:Performed By: #### [id number] #### [facility] (BEAKER) [address] [place] [address]Wrikyoa [Mass/Vol]8.5 mg/dLLow8.6-10.3UnFulton County Health CenterComment on above:Performed By: #### [id number] #### [facility] ([facility]) [address] [place] [address]Wujzcezb [Moles/Vol]104 mmol/BXlbhvh29-658ZxtdauqowrFulton County Health CenterComment on above:Performed By: #### [id number] #### [facility] ([facility]) [address] [place] [address]KM0 [Moles/Vol]26 mmol/OJyilna20-83EkoiihlpvnFulton County Health CenterComment on above:Performed By: #### [id number] #### [facility] ([facility]) [address] [place] [address]Dwzpybsqbv [Mass/Vol]0.99 mg/dLNormal0.60-1.20UnFulton County Health CenterComment on above:Performed By: #### [id number] #### [facility] ([facility]) [address] [place], [place] [address]KZIRNZWATC FILTRATION RATE ML/MIN/1.73 SQ M.XZSYVLKZH22.5 mL/min/1.73m*2Low>60.0UnFulton County Health CenterComment on above:Result Comment: [facility]???s estimated glomerular filtration rate (eGFR) will no [...] potential consequences that do not disproportionately affect anyone group of individuals.Performed By: #### [id number] #### [facility] ([facility]) [address] [place], [place] [address]Mcrirfb [Mass/Vol]106 mg/lQTehp50-829GxgncemgosFulton County Health CenterComment on above:Performed By: #### [id number] #### [facility] ([facility]) [address] [place], [place] [address]Gxcrzxcpe [Moles/Vol]3.4 mmol/LLow3.5-5.1UnFulton County Health CenterComment on above:Performed By: #### [id number] #### [facility] ([facility]) [address] [place], [place] [address]Bluqei [Moles/Vol]137 mmol/VCxadob245-917BcpupkvnprFulton County Health CenterComment on above:Performed By: #### [id number] #### [facility] ([facility]) [address] [place], [place] [address]Ldgy nitrogen [Mass/Vol]13 mg/dLNormal7-25UnFulton County Health CenterComment on above:Performed By: #### [id number] #### [facility] ([facility]) [address] [place], [place] [address]JDRZ NITROGEN/CREATININE (MASS RATIO) IN SER/PLAS13.1Normal [facility] RehabilitationComment on above:Performed By: #### [id number] #### [facility] ([facility]) [address] [place], [place] [address]Cjvmk gap [Moles/Vol]13 mmol/LNormal7-20UnFulton County Health CenterComment on above:Performed By: #### [id number] #### [facility] ([facility]) [address] [place], [place] [address]Mjxkdiu [Mass/Vol]8.9 mg/dLNormal8.6-10.3UnFulton County Health CenterComment on above:Performed By: #### [id number] #### [facility] ([facility]) [address] [place], [place] [address]Lxhslaqq [Moles/Vol]104 mmol/SFpanty28-761EcytchvgscFulton County Health CenterComment on above:Performed By: #### [id number] #### [facility] ([facility]) [address] [place], [place] [address]LA8 [Moles/Vol]23 mmol/TZzymjl73-94XijtarhuvhFulton County Health CenterComment on above:Performed By: #### [id number] #### [facility] ([facility]) [address] [place] [address]Xlmnmthdwx [Mass/Vol]1.06 mg/dLNormal0.60-1.20UnFulton County Health CenterComment on above:Performed By: #### [id number] #### [facility] ([facility]) [address] [place], [place] [address]DRVGWIELOU FILTRATION RATE ML/MIN/1.73 SQ M.CEQHSZOVA34.8 mL/min/1.73m*2Low>60.0UnFulton County Health CenterComment on above:Result Comment: [facility]???s estimated glomerular filtration rate (eGFR) will no [...] potential consequences that do not disproportionately affect anyone group of individuals.Performed By: #### [id number] #### [facility] ([facility]) [address] [place], [place] [address]Sovbjml [Mass/Vol]114 mg/vXHnoa49-873LwfzdddrfnFulton County Health CenterComment on above:Performed By: #### [id number] #### [facility] ([facility]) [address] [place] [address]Aftcjnpqg [Moles/Vol]3.6 mmol/LNormal3.5-5.1UnFulton County Health CenterComment on above:Performed By: #### [id number] #### [facility] ([facility]) [address] [place] [address]Tkjpup [Moles/Vol]136 mmol/KVdftjr722-572TingqxlvltFulton County Health CenterComment on above:Performed By: #### [id number] #### [facility] (BEAKER) [address] [place], [place] [address]Ostm nitrogen [Mass/Vol]13 mg/dLNormal-UnFulton County Health CenterComment on above:Performed By: #### [id number] #### [facility] (BEAKER) [address] [place] [address]IXNZ NITROGEN/CREATININE (MASS RATIO) IN SER/PLAS12.3Normal [facility] RehabilitationComment on above:Performed By: #### [id number] #### [facility] (BEAKER) [address] [place] [address]BVOLM CULTUREon 52-34-0324Empfojur identified Cx Nom (Bld)No growth at 5 daysNormalUniversHolzer Health SystemComment on above: Performed By: #### [id number] ####[facility] ([facility])[address] [facility] [place] [address]Nkwnb Comment: From a different site than #1., BloodCBCon 50-83-4479Lvhrqgopyvp distribution width (RBC) [Ratio]12.5 %Erbgxe62.5-15.0 [facility] RehabilitationComment on above:Performed By: #### [id number] #### [facility] (BEAKER) [address] [place], [place] [address]RUKGCBUANSZ MEAN CORPUSCULAR HEMOGLOBIN CONCENTRATION (G/DL) BY THEPBMGCE41.1 g/jYXbnz01.0-35.0UnFulton County Health CenterComment on above:Performed By: #### [id number] #### [facility] (BEAKER) [address] [place], [place] [address]Vudykdxwty (Bld) [Volume fraction]37.3 %Yyetjx86.0-45.0 [facility] RehabilitationComment on above:Performed By: #### [id number] #### [facility] (BEAKER) [address] [place], [place] [address]Bvaixpbhaw (Bld) [Mass/Vol]13.1 g/qSSyynbe69.0-15.0UnFulton County Health CenterComment on above:Performed By: #### [id number] #### [facility] ([facility]) [address] [place] [address]CBK (RBC) [Entitic mass]32.2 hgOvlspj60.0-33.0UnFulton County Health CenterComment on above:Performed By: #### [id number] #### [facility] ([facility]) [address] [place] [address]YBI (RBC) [Entitic vol]91.6 rJCsuedm56.0-98.0UnFulton County Health CenterComment on above:Performed By: #### [id number] #### [facility] ([facility]) [address] [place] [address]IZALPLWEQ (10*3/UL) IN BLOOD AUTOMATED HYPLU024 10*3/uLNormal 150-400UnFulton County Health CenterComment on above:Performed By: #### [id number] #### [facility] ([facility]) [address] [place] [address]ALU (Bld) [#/Vol]4.07 10*6/uLNormal3.80-5.00UnFulton County Health CenterComment on above:Performed By: #### [id number] #### [facility] ([facility]) [address] [place] [address]YGH (Bld) [#/Vol]9.23 10*3/uLNormal4.00-10.60UnFulton County Health CenterComment on above:Performed By: #### [id number] #### [facility] ([facility]) [address] [place] [address]WXO WITH AUTO DIFFERENTIALon 38-07-4581Hhqtwhekkmy distribution width (RBC) [Ratio]12.7 %Ugtgpj73.5-15.0UnFulton County Health Center Comment on above:Performed By: #### [id number] ####[facility] ([facility])[address] [place] [address]ROSPCSZZEJQ MEAN CORPUSCULAR HEMOGLOBIN CONCENTRATION (G/DL) BY LWCADODMY63.1 g/lOLupx11.0-35.0UnFulton County Health CenterComment on above:Performed By: #### [id number] ####[facility] ([facility])[address] [address]Cnhbqedulm (Bld) [Volume fraction]38.2 %Ssxguy21.0-45.0UnFulton County Health CenterComment on above:Performed By: #### [id number] ####[facility] ([facility])[address] [address]Ychwpgjpol (Bld) [Mass/Vol]13.8 g/nBAmgbuc37.0-15.0UnFulton County Health CenterComment on above:Performed By: #### [id number] ####[facility] ([facility])[address] [address]BYZ (RBC) [Entitic mass]32.5 pgNormal 27.0-33.0UnFulton County Health CenterComment on above:Performed By: #### [id number] ####[facility] ([facility])[address] [address]QEB (RBC) [Entitic vol]90.1 kCKhqgdw07.0-98.0UnFulton County Health Center Comment on above:Performed By: #### [id number] ####[facility] ([facility])[address] [address]RFBF (PER 100 WBCS) BY AUTOMATED COUNT0.0 %Normal0 [facility] for RehabilitationComment on above:Performed By: #### [id number] ####[facility] ([facility])[address] [address]YXUMZUOHC (10*3/UL) IN BLOOD AUTOMATED [id number] 10*3/fJBynmqh221-305LrboxjxdgnFulton County Health CenterComment on above:Performed By: #### [id number] ####[facility] ([facility])[address], [place] [address]JNR (Bld) [#/Vol]4.24 10*6/uLNormal 3.80-5.00UnFulton County Health CenterComment on above:Performed By: #### [id number] ####[facility] ([facility])[address] [address]IPO (Bld) [#/Vol]12.07 10*3/uLHigh4.00-10.60UnFulton County Health Center Comment on above:Performed By: #### [id number] ####[facility] ([facility])[address] [place] [address]QTIUDPU FUNCTION PANELon 07-39-3827Ksokhgw [Mass/Vol]4.3 g/dLNormal3.5-5.7UnFulton County Health CenterComment on above:Performed By: #### [id number] #### [facility] ([facility]) [address] [place] [address]GJQ [Catalytic activity/Vol]69 U/YMkqoxy86-044TgjpfghkntFulton County Health CenterComment on above:Performed By: #### [id number] #### [facility] ([facility]) [address] [place] [address]JMV [Catalytic activity/Vol]28 U/LNormal7-52UnFulton County Health CenterComment on above:Performed By: #### [id number] #### [facility] ([facility]) [address] [place] [address]CEN [Catalytic activity/Vol]22 U/NOiykhn23-61KvxtdumntrFulton County Health CenterComment on above:Performed By: #### [id number] #### [facility] ([facility]) [address] [place] [address]Onkxoeayh [Mass/Vol]1.5 mg/dLHigh0.3-1.0UnFulton County Health CenterComment on above:Performed By: #### [id number] #### [facility] ([facility]) [address] [place] [address]Ktwsrkabd [Mass/Vol]0.3 mg/dLHigh0-0.2UnFulton County Health CenterComment on above:Performed By: #### [id number] #### [facility] ([facility]) [address] [place] [address]Aspdnwp [Mass/Vol]7.1 g/dLNormal6.0-8.3UnFulton County Health CenterComment on above:Performed By: #### [id number] #### [facility] ([facility]) [address] [place] [address]USXOXT ACID, PLASMAon 16-05-5589KMGQSOF (MMOL/L) IN SER/PLAS1.4 mmol/LNormal0.5-2.2UnFulton County Health CenterComment on above:Performed By: #### [id number] ####[facility] ([facility])[address] [place] [address] LIPASEon 20-04-6048PHWMQH (U/L) IN SER/PLAS42 U/ZSmkuzm17-43CifnomongbFulton County Health CenterComment on above:Performed By: #### [id number] #### [facility] ([facility]) [address] [place] [address]DPHAECGLHjb 09-28-4493Txrednakx [Mass/Vol]2.0 mg/dLNormal1.9-2.7 [facility] for RehabilitationComment on above:Performed By: #### [id number] ####[facility] ([facility])[address] [place] [address]KRWBWW DIFFERENTIALon 88-69-0765PAKDWAENZ (10*3/UL) IN BLOOD BY CALCULATION0.04 10*3/uL Normal0.00-0.20UnFulton County Health CenterComment on above:Performed By: #### [id number] #### [facility] ([facility]) [address] [place] [address]VHZLXSSIO/100 LEUKOCYTES IN BLOOD BY AUTOMATED COUNT0.3 %Normal 0.0-1.0UnFulton County Health CenterComment on above:Performed By: #### [id number] #### [facility] ([facility]) [address] [place], [place] [address]FTCKDGOGMGB (10*3/UL) IN BLOOD BY CALCULATION0.08 10*3/uLNormal 0.00-0.50UnFulton County Health CenterComment on above:Performed By: #### [id number] #### [facility] ([facility]) [address] [place], [place] [address]CBXPFBEVPQM/100 LEUKOCYTES IN BLOOD BY AUTOMATED COUNT0.7 % Normal0.0-6.0UnFulton County Health CenterComment on above:Performed By: #### [id number] #### [facility] ([facility]) [address] [place], [place] [address]JQJTPFFP GRANULOCYTES (10*3/UL) IN BLOOD BY CALCULATION0.04 10*3/uLNormal0.00-0.20UnFulton County Health CenterComment on above: Performed By: #### [id number] #### [facility] ([facility]) [address] [place], [place] [address]RQNAMZPB GRANULOCYTES/100 LEUKOCYTES IN BLOOD BY AUTOMATED COUNT 0.3 %Normal0.0-1.0UnFulton County Health CenterComment on above:Performed By: #### [id number] #### [facility] ([facility]) [address] [place], [place] [address]JOFPPTXAJOA (10*3/UL) IN BLOOD BY CALCULATION5.41 10*3/uLHigh 1.20-4.00UnFulton County Health CenterComment on above:Performed By: #### [id number] #### [facility] ([facility]) [address] [place], [place] [address]TABUREJKGKS/100 LEUKOCYTES IN BLOOD BY AUTOMATED COUNT44.8 % Dxatsb18.0-45.0UnFulton County Health CenterComment on above:Performed By: #### [id number] #### [facility] ([facility]) [address] [place], [place] [address]CMBWOYXKI (10*3/UL) IN BLOOD BY CALCUATION0.54 10*3/uLNormal 0.10-1.00UnFulton County Health CenterComment on above:Performed By: #### [id number] #### [facility] ([facility]) [address] [place], [place] [address]HGNZIDLGC/100 LEUKOCYTES IN BLOOD BY AUTOMATED COUNT4.5 %Low 5.0-12.0UnFulton County Health CenterComment on above:Performed By: #### [id number] #### [facility] ([facility]) [address] [place], [place] [address]KFINZDAFSKS (10*3/UL) IN BLOOD BY CALCULATION6.0 10*3/uLNormal 1.6-7.6UnFulton County Health CenterComment on above:Performed By: #### [id number] #### [facility] ([facility]) [address] [facility] [place], [place] [address]QPVKOGGWNUM/100 LEUKOCYTES IN BLOOD BY AUTOMATED COUNT49.4 % Khpyrn01.0-72.0UnFulton County Health CenterComment on above:Performed By: #### [id number] #### [facility] ([facility]) [address] [place], [place] [address]TE ABDOMEN W AND WO CONTRAST MRCPon 76-20-8828WD ABDOMEN W AND WO CONTRAST MRCPMR ABDOMEN W AND WO CONTRAST MRCP 10/30/2024 [...] reasonably achievable Electronically signed: Tarik Sellers MD. 8Invalid Interpretation CodeUnFulton County Health CenterPHOSPHORUSon 72-35-6479Vxoahiatl [Mass/Vol]2.8 mg/dLNormal2.5-5.0UnFulton County Health CenterComment on above:Performed By: #### [id number] #### [facility] ([employer]) [address] [place], [place] [address]YXNK GLUCOSE METER UNSOLICITED RESULTSon 34-02-0585Akvdyfi [Mass/Vol]105 mg/wASlohhs40-154VxviqvehcvFulton County Health CenterComment on above:Order Comment: Waived Testing in the ED is performed under the ED CLIA certificate #[id number].Result Comment: zfhkjya63Loteoxspo By: #### [id number] #### [facility] (BEAKER) [address] [place], [place] [address]Vrjgcpx [Mass/Vol]97 mg/uFZvbufd74-293LsvhwwhftlFulton County Health CenterComment on above:Order Comment: Waived Testing in the ED is performed under the ED CLIA certificate #[id number].Result Comment: [email or web address] Performed By: #### [id number] ####[facility] (BE[facility]ER)[address] [place], [place] [address]PLLGMDV-PDWjo 50-63-9974ZVR IN PPP BY COAGULATION ASSAY1.20 High0.90-1.10UnFulton County Health CenterComment on above:Result Comment: [facility] RECOMMENDED INR FOR WARFARIN THERAPY CONDITION INR PROPHYLAXIS OF VENOUS THROMBOSIS 2-3 (HIGH-RISK SURGERY) TREATMENT OF VENOUS THROMBOSIS 2-3 TREATMENT OF PULMONARY EMBOLISM 2-3 PREVENTION OF SYSTEMIC EMBOLISM: 2-3 ACUTE MYOCARDIAL INFARCTION TISSUE HEART VALVES VALVULAR HEART DISEASE ATRIAL FIBRILLATION RECURRENT SYSTEMIC EMBOLISM MECHANICAL HEART VALVE 2.5-3.5 FROM: ORAL ANTICOAGULANTS. MECHANISM OF ACTION, CLINICAL EFFECTIVENESS, AND OPTIMAL THERAPEUTIC RANGE. CHEST 1995;108:231S-246S.Performed By: #### [id number] ####[facility] ([facility])[address] [place], [place] [address]HSYGIFTEFSJ TIME (PT) IN PPP BY COAGULATION ASSAY15.2 FppaqccDtzk64.3-14.8UnFulton County Health CenterComment on above:Performed By: #### [id number] ####[facility] ([facility])[address] [place], [place] [address]Hdejpjwps/100 WBC Manual cnt (Bld) Ordered By: Duc Hamilton on 14-30-4204Evkhqxurz/100 WBC (Bld)0.0 %Low 0.2-2.0Peoples HospitalEosinophils/100 WBC Manual cnt (Bld) Ordered By: Duc Hamilton on 32-04-4801Gbrfvmsqoef/100 WBC (Bld)2.0 %0.9-7.0 [facility] HospitalErythrocyte distribution width Auto (RBC) [Ratio]Ordered By: Duc Hamilton on 84-09-2394Dxflymuytbf distribution width (RBC) [Ratio]12.1 %11.0-15.0Peoples HospitalEstimated glomerular filtration rate (GFR) non- AmericanOrdered By: Duc Hamilton on 05-54-3900LAO/1.73 sq M.predicted among non-blacks MDRD (S/P/Bld) [Vol rate/Area]51 mL/min/{1.73_m2}Low>=60 mL/min/1.73m 2FMcCullough-Hyde Memorial HospitalGlobulin Calc (S) [Mass/Vol]Ordered By: Duc Hamilton on 81-14-1270Fihpnpxk (S) [Mass/Vol]3.9 g/dLPeoples Hospital Hematocrit Auto (Bld) [Volume fraction]Ordered By: Duc Hamilton on 12-51-8144Ornewzimiz (Bld) [Volume fraction]42.8 %36.0-48.0Peoples HospitalHemoglobin [Mass/volume] in BloodOrdered By: Duc Hamilton on 24-17-7692Uvzpuidtst (Bld) [Mass/Vol]15.3 g/dL12.0-16.0[facility] HospitalLaboratory - Chemistry and Chemistry - challengeOrdered By: Duc Hamilton on 41-83-0883Azlukjb [Moles/Vol]0.8 mmol/L0.4-2.0[facility] HospitalBilirubin Ql (U)NegativeNEGATIVEPeoples HospitalGlucose (U) [Mass/Vol]NegativeNEGATIVEPeoples HospitalKetones Ql (U)NegativeNEGATIVEPeoples HospitalpH (U)6.5 [pH]5.0-9.0[facility] Medical Centerpecific gravity (U) [Rel density] <=1.748Pypketiz5.005-1.025Peoples HospitalUrobilinogen Qn (U) 0.2 {Amee'U}/dL0.2-1.0Pe[facility] HospitalAlbumin [Mass/Vol]4.5 g/dL3.4-5.0Pe[facility] HospitalALP [Catalytic activity/Vol]94 U/L 46-116Pe[facility] HospitalALT [Catalytic activity/Vol]52 U/L14-59 Pe[facility] HospitalAST [Catalytic activity/Vol]34 U/L15-37 [facility] HospitalBilirubin [Mass/Vol]1.6 mg/dLHigh0.2-1.0 [facility] HospitalCalcium [Mass/Vol]9.8 mg/dL8.5-10.1FMcCullough-Hyde Memorial HospitalChloride [Moles/Vol]100 mmol/Q51-802PyodvlxnlPeoples HospitalCO2 [Moles/Vol]24.5 mmol/L21.0-32.0[facility] HospitalCreatinine [Mass/Vol]1.05 mg/dLHigh0.55-1.02Pe[facility] HospitalGFR/1.73 sq M.predicted MDRD (S/P/Bld) [Vol rate/Area]mL/min/{1.73_m2}>=60 mL/min/1.73m 2FMcCullough-Hyde Memorial HospitalGlucose [Mass/Vol]173 mg/dLHigh 74-106Pe[facility] HospitalLipase [Catalytic activity/Vol]73.0 U/L 16.0-77.0[facility] HospitalMagnesium [Mass/Vol]1.9 mg/dL1.8-2.4 [facility] HospitalPotassium [Moles/Vol]3.9 mmol/L3.5-5.1FMcCullough-Hyde Memorial HospitalProtein [Mass/Vol]8.4 g/dLHigh6.4-8.2FBrecksville VA / Crille Hospitalodium [Moles/Vol]139 mmol/T903-644SxhwlxaoiPeoples HospitalUrea nitrogen [Mass/Vol]11.0 mg/dL7.0-18.0[facility] HospitalUrea nitrogen/Creatinine [Mass ratio]10.5 mg/mgPeoples HospitalLaboratory - Hematology and Cell countsOrdered By: Duc Hamilton on 01-91-8655Hgtyaqvdxch/100 WBC (Bld)47.0 %20.5-60.0[facility] HospitalMonocytes/100 WBC (Bld)3.0 %1.7-12.0[facility] - Specimen informationOrdered By: Duc Hamilton on 10-29-2024 Appearance (U)SL CLOUDYCLEARFMcCullough-Hyde Memorial HospitalColor (U)LT. YELLOW YELLOWPeoples HospitalLaboratory - UrinalysisOrdered By: Duc Hamilton on 70-74-2603Kemylhogp esterase Test strip Ql (U)SMALLAbnormal NEGATIVEPeoples HospitalMucus Ql (Urine sed)NONE SEENNONE SEEN [facility] HospitalNitrite Ql (U)NegativeNEGATIVEPeoples HospitalProtein Ql (U)NegativeNEG/TRACEPeoples HospitalLeukocytes [#/volume] corrected for nucleated erythrocytes in Blood by Automated counOrdered By: Duc Hamilton on 86-96-4391NVF corrected for nucl RBC Auto (Bld) [#/Vol]12.5 10 3/uLHigh4.0-11.0[facility] MCH Auto (RBC) [Entitic mass]Ordered By: Duc Hamliton on 52-64-6113WFH (RBC) [Entitic mass]32.3 pg26.7-34.0Peoples HospitalMCHC Auto (RBC) [Mass/Vol]Ordered By: Duc Hamilton on 13-77-6583XYHI (RBC) [Mass/Vol] 35.7 g/jYBthz23.9-35.2FMcCullough-Hyde Memorial HospitalMCV Auto (RBC) [Entitic vol]Ordered By: Duc Hamilton on 63-21-9699OEC (RBC) [Entitic vol]90.5 fL 81.0-99.0Pe[facility] HospitalNo Panel InformationOrdered By: Duc Hamilton on 22-61-3349Ugwxo BacteriaMODERATE #/HPFAbnormalNONE SEEN [facility] HospitalUrine Culture ReflexedYES-St. Rita's HospitalUrine Microscopic ReviewJ.W. Ruby Memorial HospitalUrine Occult BloodNegativeNEGAultman HospitalUrine Other CastsNONE SEEN #/LPFNONE [facility] HospitalUrine Other CrystalsNone Seen #/HPFNone [facility] CenterUrine RBC0-2 #/HPF0-2FMcCullough-Hyde Memorial HospitalUrine Squamous Epithelial CellsFEW #/LPFAbnormalNONE/RAREPeoples HospitalUrine WBC5-10 #/HPF AbnormalNONE SEENPeoples HospitalAbsolute Basophils (Manual) 0.00 10 3/uL0.00-0.10Pe[facility] HospitalEosinophils # (Manual)0.25 10 3/uL0.00-0.70Pe[facility] HospitalLymphocytes # (Manual)5.87 10 3/uLHigh1.20-3.80[facility] HospitalMonocytes # (Manual)0.37 10 3/uL0.30-0.80[facility] Centeregmented Neutrophils # (Manual) 6.00 10 3/uL1.4-6.5FMcCullough-Hyde Memorial HospitalPlatelet mean volume Auto (Bld) [Entitic vol]Ordered By: Duc Hamilton on 51-34-9316Rhsxhcae mean volume (Bld) [Entitic vol]9.8 fL9.5-13.5FMcCullough-Hyde Memorial Hospital Platelets Auto (Bld) [#/Vol]Ordered By: Duc Hamilton on 69-62-3752Frynektqc (Bld) [#/Vol]239 10 3/vX310-908PkaukfltsPeoples HospitalRBC Auto (Bld) [#/Vol]Ordered By: Duc Hamilton on 54-51-3576BVC (Bld) [#/Vol]4.73 10 6/uL 4.20-5.40[facility] Medical Centeregmented neutrophils/100 WBC Manual cnt (Bld)Ordered By: Duc Hamilton on 98-78-5447Jjommzkrb neutrophils/100 WBC (Bld)48.0 %43.0-75.0[facility] Medical Centererum or plasma albumin/globulin mass ratioOrdered By: Duc Hamilton on 10-29-2024 Albumin/Globulin [Mass ratio]1.2 {ratio}[facility] Centererum or plasma anion gap determinationOrdered By: Duc Hamilton on 10-29-2024 Anion gap [Moles/Vol]18.4 mmol/LFMcCullough-Hyde Memorial HospitalUrine Cultureon 28-71-4420Tbftraok identified Cx Nom (U)>100,000 colonies/ml mixed bacterial skin contaminants 2 Days PERFORMED BY: [place] [address] PATHOLOGIST MARKETING OPERATIONS MANAGER SARAHY POOL M.D.[facility] Physician GroupComment on above: Performed By: #### CUU #### [place] [address] USAUrine cultureOrdered By: Preet Melchor on 23-23-0920Dbifopnd identified Cx Nom (U)2 DaysPeoples HospitalLaboratory - Chemistry and Chemistry - challengeOrdered By: Carmen Conley on 84-32-9314Nqhiqro [Mass/Vol]8.9 mg/dL8.5-10.1FMcCullough-Hyde Memorial HospitalFree T4 [Mass/Vol] 1.12 ng/dL0.76-1.46Peoples HospitalTSH Qn0.544 m[IU]/L 0.358-3.740Peoples HospitalNo Panel InformationOrdered By: Carmen Conley on 70-13-5212Mqiptomxhoe Hormone (Intact)38 pg/jF77-27HkcfoykvfPeoples HospitalComment on above:Performed at: [facility] [id number] Director: Pasha Chaudhry PhD, Phone: [phone] Glucometer ([facility]) [Mass/Vol]Ordered By: Randa Christine on 52-80-5242Chcvmzx [Mass/Vol]Capillary blood glucose measurement by glucometer (mass/volume)Peoples HospitalComment on above:Random Glucose Reference Range is dependent on time and content of last meal. Glucose of more than 200 mg/dL in a nonstressed, ambulatory subject supports the diagnosis of Diabetes Mellitus.Glucose Poct Glucometerson 02-05-6955Hpuzijz6Pbq1: Cleaned MeterNormHCA Florida Northside Hospital Physician GroupComment on above:Result Comment: PERFORMED BY: [place] [address] PATHOLOGIST MARKETING OPERATIONS MANAGER LINDSAY RAMEY M.D.Performed By: #### GLULS #### Point of Care testing ,Glucose [Mass/Vol]168 mg/dLNoDuke University Hospital Physician GroupComment on above: Result Comment: Random Glucose Reference Range is dependent on time and content of last meal. Glucose of more than 200 mg/dL in a nonstressed, ambulatory subject supports the diagnosis of Diabetes Mellitus.Performed By: #### GLULS #### Point of Care testing ,Zgdncwf2Xkr2: Cleaned MeterSebastian River Medical Center Physician GroupComment on above: Result Comment: PERFORMED BY: [facility] [address] [place] [address] PATHOLOGIST MARKETING OPERATIONS MANAGER LINDSAY RAMEY M.D.Performed By: #### GLULS #### Point of Care testing ,Glucose [Mass/Vol]158 mg/dLNoDuke University Hospital Physician GroupComment on above: Result Comment: Random Glucose Reference Range is dependent on time and content of last meal. Glucose of more than 200 mg/dL in a nonstressed, ambulatory subject supports the diagnosis of Diabetes Mellitus.Performed By: #### GLULS #### Point of Care testing ,No Panel InformationOrdered By: Randa Christine on 05-30-2583Fqosyvm Glucose Comment Glu2: cleaned [facility] SystemNo Panel InformationOrdered By: Sapna Vanegas on 97-80-8607XVZC HealthcareLaboratory - Chemistry and Chemistry - challengeon 89-45-0676Uabbwi [Catalytic activity/Vol]86.0 U/LHigh 16.0-77.0Pe[facility] HospitalLaboratory - Microbiology and Antimicrobial susceptibilityon 54-50-8006Ojwpbadi identified Cx Nom (U)Peoples HospitalNo Panel Informationon 63-54-7740Xibrizjghgjhk Test CommentSee commentPeoples HospitalComment on above:Specimen Source: UCC - Urine,Clean Catch - Urine CC - 200.100Basophils/100 WBC Manual cnt (Bld)on 99-85-9559Mcoqgohye/100 WBC (Bld)Basophils/100 leukocytes in Blood by Manual countLow0.2-2.0[facility] CenterEosinophils/100 WBC Manual cnt (Bld)on 02-86-1218Mnmmwtkpdhx/100 WBC (Bld)Eosinophils/100 leukocytes in Blood by Manual count0.9-7.0Peoples HospitalErythrocyte distribution width Auto (RBC) [Ratio]on 61-03-7436Tsuihrqptlk distribution width (RBC) [Ratio]Erythrocyte distribution width [Ratio] by Automated count11.0-15.0 Pe[facility] HospitalEstimated glomerular filtration rate (GFR) non- Americanon 32-68-7412KRI/1.73 sq M.predicted among non-blacks MDRD (S/P/Bld) [Vol rate/Area]Estimated glomerular filtration rate (GFR) non- AmericanLow>=60Peoples HospitalGlobulin Calc (S) [Mass/Vol]on 83-52-8334Atlugiyq (S) [Mass/Vol]Serum globulin measurement by calculation (mass/volume)Peoples HospitalHematocrit Auto (Bld) [Volume fraction]on 99-52-0921Xfufjreaed (Bld) [Volume fraction]Hematocrit [Volume Fraction] of Blood by Automated count36.0-48.0[facility] Hemoglobin [Mass/volume] in Bloodon 75-23-1496Cdbxfuvrna (Bld) [Mass/Vol] Hemoglobin [Mass/volume] in Blood12.0-16.0[facility] - Chemistry and Chemistry - challengeon 80-52-3095Vpslajx [Mass/Vol] 4.2 g/dL3.4-5.0Pe[facility] HospitalALP [Catalytic activity/Vol]95 U/Z79-760DtadprgfsPeoples HospitalALT [Catalytic activity/Vol]41 U/L 14-59Peoples HospitalAmylase [Catalytic activity/Vol]48 U/L 25-115Peoples HospitalAST [Catalytic activity/Vol]18 U/L15-37 [facility] HospitalBilirubin [Mass/Vol]0.8 mg/dL0.2-1.0Peoples HospitalBilirubin.direct [Mass/Vol]0.2 mg/dL0.0-0.2FMcCullough-Hyde Memorial HospitalCalcium [Mass/Vol]9.4 mg/dL8.5-10.1FMcCullough-Hyde Memorial HospitalChloride [Moles/Vol]97 mmol/MJir37-585CeljerazkPeoples HospitalCO2 [Moles/Vol]26.1 mmol/L21.0-32.0[facility] Creatinine [Mass/Vol]1.07 mg/dLHigh0.55-1.02[facility] GFR/1.73 sq M.predicted MDRD (S/P/Bld) [Vol rate/Area]mL/min/{1.73_m2}>=60 Pe[facility] HospitalGlucose [Mass/Vol]166 mg/fRJpqi86-210CgdnarjvpPeoples HospitalLipase [Catalytic activity/Vol]96.0 U/LHigh16.0-77.0 [facility] HospitalPotassium [Moles/Vol]3.8 mmol/L3.5-5.1FMcCullough-Hyde Memorial HospitalProtein [Mass/Vol]8.3 g/dLHigh6.4-8.2FBrecksville VA / Crille Hospitalodium [Moles/Vol]135 mmol/RAhn533-982NydcdkbvhPeoples HospitalUrea nitrogen [Mass/Vol]23.0 mg/dLHigh7.0-18.0Peoples HospitalUrea nitrogen/Creatinine [Mass ratio]21.5 mg/mgPeoples HospitalLaboratory - Hematology and Cell countson 75-00-6901Ljekymyzouh/100 WBC (Bld)48.0 %20.5-60.0Peoples HospitalMonocytes/100 WBC (Bld)1.0 %Low1.7-12.0Peoples HospitalLeukocytes [#/volume] corrected for nucleated erythrocytes in Blood by Automated counon 48-96-9769FGZ corrected for nucl RBC Auto (Bld) [#/Vol]Leukocytes [#/volume] corrected for nucleated erythrocytes in Blood by Automated counHigh4.0-11.0Peoples HospitalMCH Auto (RBC) [Entitic mass]on 93-10-2861AUG (RBC) [Entitic mass]MCH [Entitic mass] by Automated count26.7-34.0Peoples HospitalMCHC Auto (RBC) [Mass/Vol]on 53-37-2644YVLV (RBC) [Mass/Vol]MCHC [Mass/volume] by Automated count29.9-35.2FMcCullough-Hyde Memorial HospitalMCV Auto (RBC) [Entitic vol]on 07-28-8062XKM (RBC) [Entitic vol]MCV [Entitic volume] by Automated count 81.0-99.0Peoples HospitalNo Panel Informationon 12-21-2023 Absolute Basophils (Manual)0.00 10 3/uL0.00-0.10Peoples HospitalEosinophils # (Manual)0.17 10 3/uL0.00-0.70Peoples HospitalLymphocytes # (Manual)8.20 10 3/uLHigh1.20-3.80Pe[facility] HospitalMonocytes # (Manual)0.17 10 3/uLLow0.30-0.80[facility] Medical Centeregmented Neutrophils # (Manual)8.55 10 3/uLHigh1.4-6.5FMcCullough-Hyde Memorial HospitalPlatelet mean volume Auto (Bld) [Entitic vol]on 13-82-1035Dqgdxico mean volume (Bld) [Entitic vol]Platelet mean volume [Entitic volume] in Blood by Automated countLow9.5-13.5FMcCullough-Hyde Memorial HospitalPlatelets Auto (Bld) [#/Vol]on 31-43-3605Tntahxrrw (Bld) [#/Vol]Platelets [#/volume] in Blood by Automated lyzce670-691HllcsbdwePeoples HospitalRBC Auto (Bld) [#/Vol]on 45-18-2168NVE (Bld) [#/Vol]Erythrocytes [#/volume] in Blood by Automated count 4.20-5.40[facility] Medical Centeregmented neutrophils/100 WBC Manual cnt (Bld)on 56-42-9272Ujjtviawg neutrophils/100 WBC (Bld)Manual blood segmented neutrophils/100 zdilinlphe03.0-75.0[facility] Centererum or plasma albumin/globulin mass ratioon 48-81-7072Dtxqibk/Globulin [Mass ratio] Serum or plasma albumin/globulin mass ratioPeoples Hospital Serum or plasma anion gap determinationon 99-44-0452Nbgcp gap [Moles/Vol]Serum or plasma anion gap determinationPeoples HospitalLaboratory - Microbiology and Antimicrobial susceptibilityon 12-19-2023S. pyogenes Ag Ql (Unsp spec)NegativeSalem Regional Medical CenterARS-CoV-2 (COVID-19) RNA SUNNY+probe Ql (Unsp spec)NegativeNEGATIVEPeoples HospitalComment on above:This test has not been FDA cleared or approved, but has beenauthorized by the FDA under an Emergency Use Authorization(EUA) for use by authorized laboratories certified underIA that meet the requirements to perform moderate or highcomplexity testing. This test has been authorized only forthe detection of proteins from SARS-CoV-2, not for any otherviruses or pathogens. The emergency use of this test isauthorized for the duration of the declaration thatcircumstances exist justifying the authorization ofemergency use of in vitro diagnostic tests for detectionand/or diagnosis of Covid-19 under section 564(b)(1) of the[facility], [place] 360bbb-3(b)(1), unless the declaration isterminated or authorization is revoked sooner.Basophils Auto (Bld) [#/Vol]on 25-97-6137Xgrnmmrru (Bld) [#/Vol]Automated basophil count0.0-0.1FMcCullough-Hyde Memorial HospitalBasophils/100 WBC Auto (Bld)on 88-09-3781Qoqghxhfp/100 WBC (Bld)Automated basophil %0.2-2.0[facility] Eosinophils/100 WBC Auto (Bld)on 74-77-0214Octfwleacyf/100 WBC (Bld)Automated eosinophil %Low0.9-7.0Peoples HospitalErythrocyte distribution width Auto (RBC) [Ratio]on 74-19-8991Qhmupclnchm distribution width (RBC) [Ratio]Erythrocyte distribution width [Ratio] by Automated count11.0-15.0 Peoples HospitalEstimated glomerular filtration rate (GFR) non- Americanon 99-92-6566OAS/1.73 sq M.predicted among non-blacks MDRD (S/P/Bld) [Vol rate/Area]Estimated glomerular filtration rate (GFR) non- AmericanLow>=60Peoples HospitalGlucose mean value [Mass/volume] in Blood Estimated from glycated hemoglobinon 71-63-5114Xilksme glucose Estimated from glycated hemoglobin (Bld) [Mass/Vol]Glucose mean value [Mass/volume] in Blood Estimated from glycated hemoglobinPeoples HospitalHematocrit Auto (Bld) [Volume fraction]on 34-55-3499Anwugvzkgl (Bld) [Volume fraction]Hematocrit [Volume Fraction] of Blood by Automated count 36.0-48.0Peoples HospitalHemoglobin [Mass/volume] in Bloodon 95-82-9084Szpfquczzc (Bld) [Mass/Vol]Hemoglobin [Mass/volume] in Blood12.0-16.0 [facility] HospitalLaboratory - Chemistry and Chemistry - challengeon 64-39-3459Lnryafy [Mass/Vol]9.4 mg/dL8.5-10.1FMcCullough-Hyde Memorial HospitalChloride [Moles/Vol]100 mmol/V46-215OtktkmlmmPeoples HospitalCO2 [Moles/Vol]27.3 mmol/L21.0-32.0[facility] Creatinine [Mass/Vol]0.93 mg/dL0.55-1.02[facility] HospitalFree T4 [Mass/Vol]1.15 ng/dL0.76-1.46[facility] HospitalGFR/1.73 sq M.predicted MDRD (S/P/Bld) [Vol rate/Area]mL/min/{1.73_m2}>=60[facility] HospitalGlucose [Mass/Vol]154 mg/lNYhjb37-629BctdogvjgPeoples HospitalPotassium [Moles/Vol]3.9 mmol/L3.5-5.1FMcCullough-Hyde Memorial Hospital Sodium [Moles/Vol]134 mmol/PUck386-205KxpperxqxPeoples HospitalTSH Qn 0.510 m[IU]/L0.358-3.740Pe[facility] HospitalUrea nitrogen [Mass/Vol]13.0 mg/dL7.0-18.0[facility] HospitalUrea nitrogen/Creatinine [Mass ratio]14.0 mg/mgPeoples Hospital Laboratory - Hematology and Cell countson 01-73-0364OvS3d (Bld) [Mass fraction] 7.1 %High4.5-6.2FMcCullough-Hyde Memorial HospitalComment on above:ADA RECOMMENDED LIMIT 4.0 - 6.0ADA THERAPEUTIC TARGET < 7.0ACTION SUGGESTED> 7.0 Immature granulocytes/100 WBC (Bld)0.4 %0.0-0.5FMcCullough-Hyde Memorial Hospital Leukocytes [#/volume] corrected for nucleated erythrocytes in Blood by Automated counon 62-68-5335OHL corrected for nucl RBC Auto (Bld) [#/Vol]Leukocytes [#/volume] corrected for nucleated erythrocytes in Blood by Automated counHigh 4.0-11.0[facility] HospitalLymphocytes Auto (Bld) [#/Vol]on 89-67-4793Ktfkibbobyf (Bld) [#/Vol]Lymphocytes [#/volume] in Blood by Automated count1.2-3.8[facility] HospitalLymphocytes/100 WBC Auto (Bld)on 01-39-3056Kqavhbcavoa/100 WBC (Bld)Lymphocytes/100 leukocytes in Blood by Automated count20.5-60.0[facility] HealthH Auto (RBC) [Entitic mass]on 91-63-9848CIK (RBC) [Entitic mass]MCH [Entitic mass] by Automated count 26.7-34.0Pe[facility] HospitalMCHC Auto (RBC) [Mass/Vol]on 30-45-3745PPRK (RBC) [Mass/Vol]MCHC [Mass/volume] by Automated count29.9-35.2 [facility] HospitalMCV Auto (RBC) [Entitic vol]on 77-09-9356TSQ (RBC) [Entitic vol]MCV [Entitic volume] by Automated count81.0-99.0[facility] HospitalMonocytes Auto (Bld) [#/Vol]on 75-13-7016Alzgcmmry (Bld) [#/Vol]Automated blood monocyte count0.3-0.8[facility] Monocytes/100 WBC Auto (Bld)on 52-69-5841Ccbefkicf/100 WBC (Bld)Automated monocyte %1.7-12.0[facility] HospitalNeutrophils Auto (Bld) [#/Vol]on 22-40-5914Kioewdwrzhx (Bld) [#/Vol]Neutrophils [#/volume] in Blood by Automated countHigh1.4-6.5FMcCullough-Hyde Memorial HospitalNeutrophils/100 WBC Auto (Bld)on 16-06-8964Iidvtxfnirj/100 WBC (Bld)Automated neutrophil %43.0-75.0 [facility] HospitalNo Panel Informationon 69-65-1025Ajibqozfkxf # (Auto)0.0 10 3/uL0.0-0.7FMcCullough-Hyde Memorial HospitalImmature Granulocyte # (Auto)0.05 10 3/uLHigh0.00-0.03[facility] HospitalPlatelet mean volume Auto (Bld) [Entitic vol]on 00-89-4000Kqeprexh mean volume (Bld) [Entitic vol]Platelet mean volume [Entitic volume] in Blood by Automated count9.5-13.5 [facility] HospitalPlatelets Auto (Bld) [#/Vol]on 12-17-2023 Platelets (Bld) [#/Vol]Platelets [#/volume] in Blood by Automated sghpu931-514 [facility] HospitalRBC Auto (Bld) [#/Vol]on 06-55-8886VWR (Bld) [#/Vol]Erythrocytes [#/volume] in Blood by Automated count4.20-5.40[facility] Medical Centererum or plasma anion gap determinationon 28-33-5736Udcvt gap [Moles/Vol]Serum or plasma anion gap determinationSalem Regional Medical Centererum or plasma free cefuroxime measurement (mass/volume)on 97-70-5069Biprbiqjcj free [Mass/Vol]Serum or plasma free cefuroxime measurement (mass/volume)NegativePeoples HospitalComment on above:Performed at: [facility] Lab[address] [id number] Director: Pasha Chaudhry PhD, Phone: [phone] and Vascular Office/Clinic Noteon 34-10-1659Evagj and Vascular Office/Clinic NoteHeart and Vascular Office/Clinic Note Chief Complaint Here [...] visit. Patient also denies heart palpitations and dizziness/lightheadedness. Has been feeling well since last visit. [...] breath, heart palpitations, swelling in lower extremities, dizziness/lightheadedness To her knowledge, she does not have [...] 25 mg daily since last visit and hasnot had any chest symptoms since that time. Continue with metoprolol daily 2. Chest pain (R07.9: Chest pain, unspecified) No chest pains or symptoms since last visit. Could have been fibromyalgia related pain previously, but continue with metoprolol ER 25 mg daily. Follow-up in 6 months with me Portions of this record may have been created with voice recognition artificial intelligence software, specifically [email or web address], Tar[employer] and or [employer] Substitutions may have occurred due to the inherent limitations of voice recognition and artificial intelligence software. Follow-up No qualifying data available Problem List/Past Medical History Ongoing Ventricular tachycardia Historical No qualifying data Procedure/Surgical History Esophagogastroduodenoscopy (07/02/2023), Arm, Bladder, Gallbladder, Hand, Hysterectomy. Medications benazepril 20 mg Tab, 20 mg= 1 tab(s), Oral, Daily citalopram 40 mg Tab, 40 mg= 1 tab(s), Oral, Daily levothyroxine 50 mcg (0.05 mg) Tab, 50 mcg= 1 tab(s), Oral, Daily lorazepam, Oral, q8hr, PRN, Self Directed metoprolol 25 mg ER Tab, 25 mg= 1 tab(s), Oral, Daily, 2 refills Ozempic, Sub (more content not included)...[facility] Comment on above:Result Comment: Electronically Signed By: Dontae Hernández PA-C\.br\Date and Time Signed: 10/08/23 13:53 EDTNM Myocardial Spect Rest/Stress 1 Dayon 82-74-4875NL Myocardial Spect Rest/Stress 1 DayExam Date/Time: 10/01/2023 14:13 EDT Reason for Exam: ventricular tachycardia;Other (please specify) Report [facility] [address] [place] [address] Nuclear Stress Report Name: IVELISSE GEE Study Date: 10/01/2023 12:32 PM [facility] 1950 (M/d/yyyy) Gender: Female Age: 73 yrs Ethnicity: T Reason For Study: Other (please specify) Ordering Physician: Dontae Hernández Referring Physician: Dontae Hernández Protocol 14347 Pharmacologic Lexiscan stress with Isotope. Study Protocol: [...] Signed by: Deonte Peraza MD Transcribed by: [facility] Technologist: Mindy [facility] CenterConsent for Treatmenton 18-45-7699Uzpodbi for Treatment [id number]#1.00TIFOhioHealth Grove City Methodist HospitalMonitor Recordon 30-02-9254Imdkqmx Record [id number]#1.00TIFOhioHealth Grove City Methodist HospitalEvent Monitoron 54-10-2136Vdbjk MonitorEVENT MONITOR ENROLLMENT PERIOD: 08/05/2023 through 08/22/2023 INDICATIONS: Palpitations. FINDINGS: Over the monitoring time the monitor recorded underlying sinus rhythm, bradycardia, tachycardia. There were 6 patient events with symptoms of not specified, palpitations, other, baseline. There was no evidence of secondary arrhythmia. The total burden of premature supraventricular contractions of 0.02% including supraventricular ectopy couplets, supraventricular ectopy runs lasting 3-13beats with heart rate of 155 beats per [...] BY: Ciaran Villatoro MD ca Dictated: 09/28/2023 [id number] Transcribed: 09/30/2023NoHolzer Health SystemComment on above:Result Comment: Electronically Signed By: Shauna CERRATO, Ciaran Ghotra.elyse\Date and Time Signed: 09/30/23 13:51 EDTConsent for Treatmenton 28-56-8345Hbdhwbm for [id number]#1.00TIFFNoHolzer Health SystemHeart and Vascular Office/Clinic Noteon 62-36-9006Jrmdn and Vascular Office/Clinic NoteChief Complaint F/U Testing History of Present Illness [...] breath, heart palpitations, swelling in lower extremities, dizziness/lightheadedness To her knowledge, she does not have [...] # 30 tab(s), Refills(s) 2, Pharmacy: [facility]/pharmacy #[id number],155, cm, 09/05/23 10:04:00 EDT, Height/Length Dosing, 71.2, [...] with voice recognition artificial intelligence software, specifically [email or web address], Tar[employer] and or [employer] Substitutions may have occurred due to the inherent limitations of voice recognition and artificial intelligence software. Follow-up No qualifying data available Problem List/Past Medical History Ongoing No qualifying data Historical No qualifying data Procedure/Surgical History Esophagogastroduodenoscopy (07/02/2023), Arm, Bladder, Gallbladder, Hand, Hysterectomy. Medications [...] colon: Father. Immunizations Va (more content not included)...[facility] HospitalComment on above:Result Comment: Electronically Signed By: Dontae Hernández PA-C\.br\Date and Time Signed: 09/05/23 12:53 EDTPhysician Orderon 31-21-8078Thzmtlcmh Order [id number]#1.00TIFOhioHealth Grove City Methodist HospitalMonitor Recordon 90-03-8253Mqqabdx Record [id number]#1.00[facility]ike Medical CenterConsent for Treatmenton 12-79-4304Ylwhpzn for Treatment [id number]#1.00[facility] Medical CenterAmbulatory Visit Summaryon 79-85-2081Zrztojyndx Visit Summary IVELISSE GEE :1950 Visit Date:07/24/2023 [...] trazodone (traZODONE 50 mg Tab) Procedures Performed Esophagogastroduodenoscopy (07/02/2023), Arm, Bladder, Gallbladder, Hand, Hysterectomy. Discharge [...] Cardiovascular Services 2023 2:00 PM EDT With: Deonte Peraza MD Where: [facility] Saturday 12:15 PM EDT With: Shaun Goode MD Where[facility]Mer[facility] HospitalGastroenterology Office/Clinic Noteon 52-81-3979Peqvvbupczhkpcyh Office/Clinic NoteChief Complaint follow up to EGD HPI Staff [...] 1-2 bowel movements every day by using spfp-htj-xqguvom laxatives such assenna Advised to massage the belly and do [...] # 30 cap(s), Refills(s) 5, Pharmacy: [facility]/pharmacy #[id number], 155, cm, 06/26/23 12:22:00 EDT, Height/Length Dosing, 72.1, kg, 06/26/23 12:22:00 EDT, Weight Dosing pantoprazole, 40 mg = 1 tab(s), Oral, Daily, # 90 tab(s), Refills(s) 3, Pharmacy: [facility]/pharmacy #[id number], 153, cm, 07/24/23 13:54:00 EDT, Height/Length Dosing, 71.5, kg, 07/24/23 13:54:00 EDT, Weight Dosing Refill PPI Continue prune lax and prunes Repeat alpha-fetoprotein ultrasound of the liver every 6 months Follow-up No qualifying data available Problem List/Past Medical History Ongoing No qualifying data Historical No qualifying data Procedure/Surgical History Esophagogastroduodenoscopy (07/02/2023), Arm, Bladder, Gallbladder, Hand, Hysterectomy. Medications [...] 12/17/2017 Recorded influenza virus vaccine, inactivated 04/09/2016 RecordedNoHolzer Health SystemComment on above:Result Comment: Electronically Signed By: Rupa CERRATO, Shaun Xiao\.br\Date and Time Signed: 07/23/2413:16 EDTIntraOperative Documentson 94-54-7049KbdfkTstyxhjmv Documents [id number]#1.00TIFOhioHealth Grove City Methodist HospitalConsenton 45-88-5565Teocihd [id number]#1.00TIFOhioHealth Grove City Methodist HospitalDischarge Instructionson 75-19-2165Ypgywxnyb Instructions [id number]#1.00TIFOhioHealth Grove City Methodist HospitalMain OR Intraoperative Recordon 48-16-3242Eemu OR Intraoperative Record IntraOp Document Type FT Summary Primary Physician: Shaun Goode MD Finalized Date/Time: 07/03/23 11:58:54 Pt. Name: IVELISSE GEE/Sex: 1950 Female Med Rec #: [id number] Physician: Shaun Goode MD Financial #: [id number] Pt. Type: O Room/Bed: / Admit/Disch: 07/02/23 08:33:49 - 07/02/23 23:59:59 Institution: Case Times FT Entry 1 Patient Times In Room 07/02/23 09:08:00 Out Room 07/02/23 09:22:00 Procedure Times Start 07/02/23 09:15:00 Stop 07/02/23 09:19:00 Anesthesia Times Start 07/02/23 09:08:00 Stop 07/02/23 09:22:00 Last Modified By: Alicia MARC, Adele 07/02/23 09:24:17 General Comments: 07/03/23 Chart opened for charge review per Melissa Hernandez RN. [place] Case Attendance FT Entry 1 Entry 2 Entry 3 Case Attendee Fadia Ortega, Kristie Goode MD, hSaun Xiao Role Performed Staff - Other Scrub - Primary Surgeon - Primary Time In 07/02/23 09:15:00 07/02/23 09:08:00 07/02/23 09:08:00 Time Out 07/02/23 09:22:00 07/02/23 09:22:00 07/02/23 09:22:00 Procedure EGD(.) EGD(.) EGD(.) Comments help in room Last Modified By: Alicia RN, Adele Vargas RN, Adele Vargas RN, Adele 07/02/23 09:24:18 07/02/23 09:24:18 07/02/23 09:24:18 Entry 4 Entry 5 Case Attendee Alicia MARC, Adele Ramos TRAILHEAD CONSTRUCTION WORKER, Aba Xiao Role Performed Avid Editor - Primary TRAILHEAD CONSTRUCTION WORKER Time In 07/02/23 09:08:00 07/02/23 09:08:00 Time [...] and tissue Entry 1 Skin Integrity Intact, [place], Warm, and Skin Abnormality No Dry Outcomes [...] Feet Uncrossed? Yes Left (more content not included)...[facility] HospitalPostoperative Documentson 40-48-9646Xhpmdbsutlggd Documents [id number]#1.00TIFFNormalChillicothe Va Medical CenterProgress Note-Physicianon 74-35-4630Mptwbygp Note-PhysicianPatient: IVELISSE GEE Age: 72 years Sex: Female [...] selected or recorded. Histories Procedure history: Bladder ([id number]). Comments: 06/26/2023 12:18 EDT - Nancy Cuenca 15 years ago Gallbladder ([id number]). Hysterectomy ([id number]). Arm (7756949244). Hand (528766443). Social History Social & Psychosocial Habits Tobacco 06/26/2023 Risk Assessment: Denies Tobacco Use 06/26/2023 Tobacco Use: Never (less than 100 in l . Physical Examination Airway: Mallampati classification: II (soft palate, fauces, uvula visible). Respiratory: adequate air exchange. Cardiovascular: Regular rhythm. Plan [place] [employer] Anesthesiologists (ASA) physical status classification: Class II. Anesthetic Preoperative Plan: Anesthesia General.[facility]iff[facility] HospitalComment on above:Result Comment: Electronically Signed By: Brant Friedman Jr, DO\.br\Date and Time Signed: 07/03/23 15:21 EDTProgress Note-Physician Patient: IVELISSE GEE Age: 72 years Sex: Female : 1950 Associated Diagnoses: None Author: Brant Friedman Jr, DO Postoperative Information Postoperative disposition: Postoperative disposition: To PACU. Optimetrix number: Optimetrix number [phone]. Anesthetic utilized: General. Health Status Allergies: Allergic [...] Discharge when meets criteria ( To home ).[facility]iff[facility] HospitalComment on above:Result Comment: Electronically Signed By: Brant Friedman Jr, DO\.br\Date and Time Signed: 07/03/23 15:20 EDTConsent for Treatmenton 92-42-1605Rbvbghs for Treatment [id number]#1.00TIFFNoHolzer Health SystemDischarge Instructionson 22-03-9920Mjzthiqbm Instructions IVELISSE GEE :1950 Visit Date:07/02/2023 Inpatient Discharge Instructions Your Care Team Admitting Physician - Shaun Goode MD. Referring Physician - Shaun Goode MD. Reason [...] trazodone (traZODONE 50 mg Tab) Procedure History Esophagogastroduodenoscopy (07/02/2023), Arm, Bladder, Gallbladder, Hand, Hysterectomy. What to do next Instructions From Your Doctor Event Name Event Result Pharmacy Information [facility] Previously Scheduled Follow-Up Appointments August. 2023 2:00 PM EDT With: Karmen CERRATO, Deonte Roth Where: [facility] New Follow Up Appointments after Discharge Follow Up with Rupa CERRATO, ANTIONETTE Luna, [facility] When: Comments: Call for any [...] on caring for yourself after you leave thespital. Your doctor may also give you specific [...] Document Re-Released: 09/16/2006 ExitCare? Patient Information ?2009 GreenNote. Esophagitis Esophagitis is inflammation of the esophagus. [...] ? Injury to the (more content not included)...[facility] Comment on above:Result Comment: Electronically Signed By: Elma Vanessa I\.elyse\Date and Time Signed: 07/02/23 09:34 Rosangela 07-02-2023 EsophagogastroduodenoscopyPatient: IVELISSE GEE Age: 72 years Sex: Female : 1950 Associated Diagnoses: None Author: Shaun Goode MD Pre-Procedure Procedure Date 05/31/2023 09:18:00 . Procedure Type: Esophagogastroduodenoscopy with biopsy. Procedure provider Performed by Shaun [...] Oral, Daily, # 30 cap(s), Refills(s) 5, Pharmacy:[facility]/pharmacy #[id number], 155, cm, 06/26/23 12:22:00 EDT, Height/Length [...] the left lateral decubitus position. Endoscope type usedwas, introduced orally, advanced to the 2nd portion [...] duodenum status post biopsies Images Procedure images: Rec1_hd_video_2023__T08_22_38_110.jpg Rec1_hd_video_2023__T08_23_05_259.jpg Rec1_hd_video_2023__T08_23_13_955.jpg Rec1_hd_video_2023__T08_23_48_150.jpg Rec1_hd_video_2023__T08_25_16_486.jpg Rec1_hd_video_2023__T08__03_536.jpg . Post-Procedure Complications: none. Estimated blood loss: none. Specimens: sent to pathology. Devices/ implants: none left in place. Impression and Plan EGD: Diagnosis: Esophagitis, reflux (XWG51-SP K21.00, Working, Medical). Course: Progressing as expected. Education and Follow-up: Counseled: Family. Notes: Start Protonix 40 mg once daily Might benefit from Carafate in the future.[facility] Comment on above:Other Comment: Missing Attachment - attachment storage system not supported [id number] Can be viewed in source systemMissing Attachment - attachment storage system not supported [id number] Can be viewed insource systemMissing Attachment - attachment storage system not supported [id number] Can be viewed in source systemMissing Attachment - attachment storage system not supported [id number] Can be viewed in source systemMissing Attachment - attachment storage system not supported [id number] Can be viewed in source systemMissing Attachment - attachment storage system not supported [id number] Can be viewed in source systemMain OR PACU I Recordon 52-33-5546Wkzw OR PACU I RecordPACU Phase I Document Type FT Summary Primary Physician: Shaun Goode MD Finalized Date/Time: 07/02/23 10:08:53 Pt. Name: IVELISSE GEE Aiden Davidson./Sex: 1950 Female Med Rec #: [id number] Physician: Shaun Goode MD Financial #: [id number] Pt. Type: O Room/Bed: / Admit/Disch: 07/02/23 [...] individualized perioperative plan of care The patient's rightto privacy is maintained The patient's value system, [...] with or improved from baseline levels established preoperativelyThe patient's cardiovascular status is consistent with or improved from baseline levels established preoperatively The patient's cardiovascular status is consistent with or improved from baseline levels established preoperatively The patient demonstrates and/or reports adequate pain control throughout the perioperative period The patient received appropriate medication(s), safely administered during the perioperativeperiod Acuity Level PACU I FT Entry 1 Start Time 07/02/23 09:25:00 Stop Time 07/02/23 09:55:00 Acuity Level Acuity Level I Last Modified By: Elma Vanessa I 07/02/23 10:08:24 Finalized By: Elma Vanessa I Document Signatures Signed By: Elma Vanessa I 07/02/23 10:08[facility] HospitalMain OR Preoperative Recordon 66-18-2245Ojny OR Preoperative RecordHolding Area Document Type FT Summary Primary Physician: Shaun Goode MD Finalized Date/Time: 07/02/23 08:43:45 Pt. Name: IVELISSE GEE/Sex: 1950 Female Med Rec #: [id number] Physician: Shaun Goode MD Financial #: [id number] Pt. Type: O Room/Bed: / Admit/Disch: 07/02/23 [...] or her perioperative plan of care The patient'sright to privacy is maintained Surgery Checklist FT [...] Signatures Signed By: Alex Calhoun RN 07/02/23 08:43NoHolzer Health SystemMonitor Recordon 62-58-8202Npaargg Record [id number]#1.00[facility] Medical CenterMonitor [id number]#1.00TIFJ.W. Ruby Memorial HospitalAFPon 88-00-2216DAW.tumor marker [Mass/Vol]3.5 ng/mL Invalid Interpretation Code0.0-9.2Fisher [facility] Maryland Hospital CenterComment on above: Result Comment: [facility] Electrochemiluminescence Immunoassay (ECLIA) Values obtained with different assay methods or kits cannot be used interchangeably. Results cannot be interpreted as absolute evidence of the presence or absence of malignant disease. This test is not interpretable in females. Performed at: Lab[address] [id number] PhD Isidoro PakPerformed By: #### [id number] ####[facility] [address] [place], [place] [address]Hbkcosd for Procedure/Surgeryon 94-62-1624Tradpuh for Procedure/Surgery [id number]#1.00[facility] Medical CenterAmbulatory Visit Summaryon 59-33-4324Araeylfhax Visit Summary IVELISSE GEE :1950 Visit Date:06/26/2023 [...] you for choosing us for your care. [facility] HospitalConsent for Treatmenton 53-64-7825Goxnbre for [id number]#1.00TIFF [facility] HospitalGastroenterology Office/Clinic Noteon 53-26-2847Xjdslzexrdszorno Office/Clinic NoteChief Complaint Dr Mejía ref for epigastric pain [...] in the epigastric area and GERd s.p kiran 10 yea a ago lots of AI [...] 1-2 bowel movements every day by using iwrz-vkt-ygtbqwg laxatives such assenna Advised to massage the belly and do [...] 12/17/2017 Recorded influenza virus vaccine, inactivated 04/09/2016 RecordedNoHolzer Health SystemComment on above:Result Comment: Electronically Signed By: Rupa CERRATO, Shaun Resendiz.br\Date and Time Signed: 06/25/2412:09 EDTPhysician Orderon 42-60-8238Gbgjozihh [id number]#1.00TIFFMaryuri [facility]illicothe Va Medical CenterHeart and Vascular Office/Clinic Noteon 06-23-2023 Heart and Vascular Office/Clinic NoteChief Complaint here to establish care History of Present Illness The patient presents for evaluation of chest pain. Around 5 weeks ago, she suddenly experienced sharp back pain reminiscent of stabbing sensations, which persisted for 3 days and disrupted her sleep. Initially attributing it to her fibromyalgia or a potential injury, she later realized it was accompanied by severe indigestion. Concerned it might leanna heart attack, she went to the hospital, where she underwent an EKG, blood work, and a lung x-ray.She had been using Rybelsus for 3 months to manage her diabetes, a medication known to cause severegastrointestinal issues. Scheduled for an appointment on 06/26/2023. She went back to [facility], although it made her feel unwell. [...] with voice recognition artificial intelligence software, specifically [employer], [employer] and or [employer] Substitutions may have occurred due to the inherent limitations of voice recognition and artificial intelligence software. ATTESTATION: Documentation services were performed after patient or guardian consented to allow [employer] to record this visit. SAMUEL reimbursement specialist and provider reviewed before signing. SAMUEL: [...] Social History Tobacco - Denies Tobacco Use, 06/21/2023NoHolzer Health SystemComment on above:Result Comment: Electronically Signed By: Deonte Peraza MD\.br\Date and Time Signed: 06/23/23 11:02 EDT\.br\Electronically Co-Signed By: Renee Byrd\.br\Date and Time Co-Signed: 06/21/23 19:23 EDTAmbulatory Visit Summaryon 87-28-3615Byfihvneah Visit Summary IVELISSE GEE :1950 Visit Date:06/21/2023 Ambulatory Visit Instructions Your Care Team Attending Physician - Karmen CERRATO, Deonte Roth Primary Care Physician - CARMEN CONLEY MD [...] EDT With: Rupa CERRATO, Shaun Xiao [facility]iff[facility] HospitalConsent for Treatmenton 67-14-8262Hashzww for Treatment [id number]#1.00[facility] Medical CenterPhysician Referralon 84-11-6491Owaeupuxg Referral [id number]#1.00[facility] Medical CenterReferrals Officeon 80-29-6963Iuzeosfiy Office [id number]#1.00[facility] Medical CenterPhysician Orderon 77-44-0306Ourgwicfc Order [id number]#1.00[facility] Medical CenterReferrals Officeon 93-94-5443Txqbeqozc Office [id number]#1.00[facility] Medical CenterCREATININEon 93-53-5030Ciaqpqzpfh [Mass/Vol]0.94 mg/dLNormal0.55-1.02[facility] Methodist HospitalComment on above:Performed By: #### LIPA, HSTROPN, TSH, CMP #### [facility] [address] [address] [address] Martinez ChangEGFR-AF EGYPTIAN>60Normal>=60The [facility] HospitalComment on above:Performed By: #### LIPA, HSTROPN, TSH, CMP #### [facility] [address] [address] [address] Martinez ChangEGFR-NON AF CDNFZHCO00 mL/min/1.79l6Xqdcajxxkd low>=60The [facility] HospitalComment on above:Performed By: #### LIPA, HSTROPN, TSH, CMP #### [facility] [address] [address] [address] Martinez ChangCT ABD/PELVIS WO CONon [id number] ABD/PELVIS WO CONEXAMINATION: CT ABD/PELVIS WO CON, 08/08/2022 9:57 AM [...] stable. No renal calculus or hydronephrosis identified. Gastrointestinal/Peritoneum: No acute abnormality. The appendix is unremarkable. [...] Electronically authenticated by: CARO SIBLEY Date: 2022-08-08 13:42NormThe [facility]e [facility] HospitalPNEUMOCOCCAL IM (23 SEROTYPE)on [id number] Ab Type 1*2.8 ug/mLNormal>1.3The [facility] HospitalComment on above:Performed By: #### LIPA, HSTROPN, TSH, CMP #### [facility] [address] [address] [address] Juan Segura Ab Type 12 (12F)*0.2 ug/mLCritically low>1.3The [facility] HospitalComment on above:Performed By: #### LIPA, HSTROPN, TSH, CMP #### [facility] [address] [address] [address] Juan Segura Ab Type 14*>18.7Normal>1.3TPremier Health Upper Valley Medical CenterComment on above:Performed By: #### LIPA, HSTROPN, TSH, CMP #### [facility] [address] [address] [address] Juan Segura Ab Type 17 (17F)*>20.2Normal>1.3TPremier [facility] Comment on above:Performed By: #### LIPA, HSTROPN, TSH, CMP #### [facility] [address] [address] [address] Juan Segura Ab Type 19 (19F)*21.7 ug/mLNormal>1.3TPremier Health [facility] Comment on above:Performed By: #### LIPA, HSTROPN, TSH, CMP #### [facility] [address] [address] [address] Juan Segura Ab Type 2*5.7 ug/mLNormal>1.3The Amor HospitalComment on above:Performed By: #### LIPA, HSTROPN, TSH, CMP #### [facility] [address] [address] [address] Juan Segura Ab Type 20*4.0 ug/mLNormal>1.3TPremier Health Upper Valley Medical CenterComment on above:Performed By: #### LIPA, HSTROPN, TSH, CMP #### [facility] [address] [address] [address] Juan Segura Ab Type 22 (22F)*1.5 ug/mLNormal>1.3TPremier [facility] Comment on above:Performed By: #### LIPA, HSTROPN, TSH, CMP #### [facility] [address] [address] [address] Juan Segura Ab Type 23 (23F)*3.4 ug/mLNormal>1.3TPremier [facility] Comment on above:Performed By: #### LIPA, HSTROPN, TSH, CMP #### [facility] [address] [address] [address] Juan Segura Ab Type 26 (6B)*3.0 ug/mLNormal>1.3TPremier [facility] Comment on above:Performed By: #### LIPA, HSTROPN, TSH, CMP #### [facility] [address] [address] [address] Juan Segura Ab Type 3*1.6 ug/mLNormal>1.3TPremier Health Upper Valley Medical CenterComment on above:Performed By: #### LIPA, HSTROPN, TSH, CMP #### [facility] [address] [address] [address] Juan Segura Ab Type 34 (10A)*4.4 ug/mLNormal>1.3TPremier [facility] Comment on above:Performed By: #### LIPA, HSTROPN, TSH, CMP #### [facility] [address] [address] [address] Yilan ChangPneumo Ab Type 4*1.6 ug/mLNormal>1.3TPremier Health Upper Valley Medical CenterComment on above:Performed By: #### LIPA, HSTROPN, TSH, CMP #### [facility] [address] [address] [address] Juan Segura Ab Type 43 (11A)*>7.6Normal>1.3TPrem[facility] Comment on above:Performed By: #### LIPA, HSTROPN, TSH, CMP #### [facility] [address] [address] [address] Juan Segura Ab Type 5*2.0 ug/mLNormal>1.3TPremier Health Upper Valley Medical CenterComment on above:Performed By: #### LIPA, HSTROPN, TSH, CMP #### [facility] [address] [address] [address] Juan Segura Ab Type 51 (7F)*0.9 ug/mLCritically low>1.3TPremier Health Upper Valley Medical CenterComment on above:Performed By: #### LIPA, HSTROPN, TSH, CMP #### [facility] [address] [address] [address] Juan Segura Ab Type 54 (15B)*>22.0Normal>1.3TPremier [facility] Comment on above:Performed By: #### LIPA, HSTROPN, TSH, CMP #### [facility] [address] [address] [address] Juan Segura Ab Type 56 (18C)*>8.1Normal>1.3TPremier [facility] Comment on above:Performed By: #### LIPA, HSTROPN, TSH, CMP #### [facility] [address] [address] [address] Juan Segura Ab Type 57 (19A)*2.5 ug/mLNormal>1.3TPrem[facility] Comment on above:Performed By: #### LIPA, HSTROPN, TSH, CMP #### [facility] [address] [address] [address] Juan Segura Ab Type 68 (9V)*>13.4Normal>1.3TPremier [facility] Comment on above:Performed By: #### LIPA, HSTROPN, TSH, CMP #### [facility] [address] [place] [address] Dr. Juan Segura Ab Type 70 (33F)*>10.1Normal>1.3TPremier [facility] Comment on above:Result Comment: *This test was developed and its performance characteristics determined by [employer]. It has not been cleared or approved by the U.S. Food and Drug Administration.Performed By: #### LIPA, HSTROPN, TSH, CMP #### [facility] [address] [place] [address] Dr. Juan Segura Ab Type 8*1.2 ug/mLCritically low>1.3TPremier [facility] Comment on above:Performed By: #### LIPA, HSTROPN, TSH, CMP #### [facility] [address] [place] [address] Dr. Juan Segura Ab Type 9 (9N)*1.7 ug/mLNormal>1.3TPremier [facility] Comment on above:Performed By: #### LIPA, HSTROPN, TSH, CMP #### [facility] [address] [place] [address] Dr. Juan Juan PERTUSSIS AB IGGon 07-05-2022 pertussis IgG Ab1.53 indexInvalid Interpretation Code0.00-0.94The [facility] HospitalComment on above: Result Comment: Client Requested Flag Negative <0.95 Equivocal 0.95 - 1.04 Positive >1.04Performed By: #### A1C #### [facility] [address] [place] [address] Dr. Juan Sosa DIPTHERIA AB PROFILEon [id number] Antitoxoid Ab 0.29 IU/mLNormal<0.10The [facility] HospitalComment on above:Result Comment: Interpretation: Non-Protective <0.10 Protective >=0.10 . For research use only.Performed By: #### CBC #### [facility] [address] [place] [address] Dr. Juan Sosa Antitoxoid IgG Ab0.94 IU/mLNormal<0.10The [facility] on above:Result Comment: Interpretation: Non-Protective <0.10 Protective >=0.10 Results for this test are for research purposes only by the assay's management consultant. The performance characteristics of this product have not been established. Results should not be used as a diagnostic procedure without confirmation of the diagnosis by another medically established diagnostic product or procedure.Performed By: #### CBC #### [facility] [address] [place] [address] Dr. Juan ZamarripaHAEMOPHILUS INFLUENZA B IGGon [id number] influenzae B IgG0.21 ug/mLNormalThe [facility] on above:Result Comment: NOTE: An anti-Hib level of 0.15 ug/mL is generally accepted as the minimum level for protection. Optimal protection post-vaccination requires a level greater than 1.00 ug/mL.Performed By: #### LIPA, HSTROPN, TSH, CMP #### [facility] [address] [place] [address] Dr. Juan ZamarripaIMMUNOGLOBULINS IGA/IGM/IGG QUANTITATIVEon 07-03-2022 Immunoglobulin A, Qn, Dyevv443 mg/eZDodrvu04-079Gsf [facility] on above:Performed By: #### LIPA, HSTROPN, TSH, CMP #### [facility] [address] [place] [address] Dr. Juan ZamarripaImmunoglobulin G, Qn, Tnvkr6900 mg/tPOhufoj272-2347Zsv [facility] on above:Performed By: #### LIPA, HSTROPN, TSH, CMP #### [facility] [address] [place] [address] Dr. Juan ZamarripaImmunoglobulin M, Qn, Serum66 mg/jJVilguo77-869Xdm [facility] on above:Performed By: #### LIPA, HSTROPN, TSH, CMP #### [facility] [address] [place] [address] Dr. Juan ZaidiMPHOCYTVaishnavi ACTIVITY PROFILEon 07-03-2022%CD3+CD25+Bqyfei36.3 % Normal4.9-25.9The TriHealthment on above:Result Comment: This test was developed and its performance characteristics determined by [facility]. It has not been cleared or approved by the Food and Drug Administration. Performed at: BNPerformed By: #### LYMACT #### [facility] [address] [place] [address] Dr. Juan Zamarripa%CD8+CD57+Urwrwl49.6 %Critically high0.0-11.3The [facility] on above:Result Comment: This test was developed and its performance characteristics determined by [facility]. It has not been cleared or approved by the Food and Drug Administration. Performed at: BNPerformed By: #### LYMACT #### [facility] [address] [place] [address] Dr. Juan ZamarripaAbs CD 4 ufkrmk466 /qFOffrnh301-4934Vat [facility] on above:Result Comment: Performed at: CBPerformed By: #### LYMACT #### [facility] [address] [place] [address] Dr. Juan Okeefe. CD 8 Werb822 /uLCritically sygp575-089EvcOhiohealth [facility] Comment on above:Result Comment: Performed at: CBPerformed By: #### LYMACT #### [facility] [address] [place] [address] Dr. Juan Okeefe.CD3+CD25+Cyurnh412 /hQMcwqot16-711Qvx [facility] Comment on above:Result Comment: This test was developed and its performance characteristics determined by [facility]. It has not been cleared or approved by the Food and Drug Administration. Performed at: CBPerformed By: #### LYMACT #### [facility] [address] [place] [address] Dr. Juan Okeefe.CD8+CD57+Dukces266 /uLCritically high0-254The [facility] on above:Result Comment: This test was developed and its performance characteristics determined by [facility]. It has not been cleared or approved by the Food and Drug Administration. Performed at: CBPerformed By: #### LYMACT #### [facility] [address] [place] [address] [place] [address] /xQXduycl198-6101Hnb [facility] on above:Result Comment: Performed at: CBPerformed By: #### LYMACT #### [facility] [address] [place] [address] Dr. Juan ZamarripaBasophils (Bld) [#/Vol]0.0 10*3/uLNormal0.0-0.2The [facility] HospitalComment on above:Result Comment: Performed at: CBPerformed By: #### LYMACT #### [facility] [address] [place] [address] Dr. Juan Costasophils/100 WBC (Bld)1 %NormalNot Estab.[facility] Comment on above:Result Comment: Performed at: CBPerformed By: #### LYMACT #### [facility] [address] [place] [address] Dr. Juan ZamarripaCD4/CD8 Ratio1.17Zwxyzp4.92-3.72The [facility] HospitalComhavenwyck hospital on above:Result Comment: Performed at: BNPerformed By: #### LYMACT #### [facility] [address] [place] [address] Dr. Juan Hickmanosinophils (Bld) [#/Vol]0.1 10*3/uLNormal0.0-0.4The [facility] HospitalComhavenwyck hospital on above:Result Comment: Performed at: CBPerformed By: #### LYMACT #### [facility] [address] [place] [address] Dr. Martinez ChangEosinophils/100 WBC (Bld)1 %NormalNot Estab.[facility] Comment on above:Result Comment: Performed at: CBPerformed By: #### LYMACT #### [facility] [address] [place] [address] Dr. Yilan ChangErythrocyte distribution width (RBC) [Ratio]12.6 %Gornal48.7-15.4 [facility] on above:Result Comment: Performed at: CBPerformed By: #### LYMACT #### [facility] [address] [place] [address] Dr. Juan ZamarripaHematocrit (Bld) [Volume fraction]41.9 %Rwanci22.0-46.6ThMary [facility] on above:Result Comment: Performed at: CBPerformed By: #### LYMACT #### [facility] [address] [place] [address] Dr. Juan ZamarripaHematology [facility] on above: Result Comment: Performed at: CBPerformed By: #### LYMACT #### [facility] [address] [place] [address] Dr. Juan ZamarripaHemoglobin (Bld) [Mass/Vol]14.2 g/tDNqjnty95.1-15.9[facility] on above:Result Comment: Performed at: CBPerformed By: #### LYMACT #### [facility] [address] [place] [address] Dr. Juan Calderon [facility] on above:Result Comment: Performed at: CBPerformed By: #### LYMACT #### [facility] [address] [place] [address] Dr. Juan Calderon Grans (Abs)0.0 x10E3/uLNormal0.0-0.1[facility] on above:Result Comment: Performed at: CBPerformed By: #### LYMACT #### [facility] [address] [place] [address] Dr. Juan Calderon granulocytes/100 WBC (Bld)0 %NormalNot Estab.The [facility] on above:Result Comment: Performed at: CBPerformed By: #### LYMACT #### [facility] [address] [place] [address] Dr. Juan Zaidimphocytes (Bld) [#/Vol]2.2 10*3/uLNormal0.7-3.1The [facility] HospitalComment on above:Result Comment: Performed at: CBPerformed By: #### LYMACT #### [facility] [address] [place] [address] Dr. Juan Vegashocytes/100 WBC (Bld)87.2 %Critically high57.5-86.2The [facility] HospitalComment on above:Result Comment: Performed at: BNPerformed By: #### LYMACT #### [facility] [address] [place] [address] Dr. Juan Zaidimphocytes/100 WBC (Bld)44.8 %Unsymn72.8-58.5The [facility] HospitalComment on above:Result Comment: Performed at: BNPerformed By: #### LYMACT #### [facility] [address] [place] [address] Dr. Juan Zaidimphocytes/100 WBC (Bld)40.8 %Critically high12.0-35.5The [facility] HospitalComment on above:Result Comment: Performed at: BNPerformed By: #### LYMACT #### [facility] [address] [place] [address] Dr. Juan Zaidimphocytes/100 WBC (Bld)34 %NormalNot Estab.The [facility] HospitalComment on above:Result Comment: Performed at: CBPerformed By: #### LYMACT #### [facility] [address] [place] [address] Dr. Juan Patel (RBC) [Entitic mass]31.3 zoVfzzny90.6-33.0The [facility] HospitalComment on above:Result Comment: Performed at: CBPerformed By: #### LYMACT #### [facility] [address] [place] [address] Dr. Juan Patel (RBC) [Mass/Vol]33.9 g/yIZxfvby41.5-35.7The [facility] HospitalComment on above:Result Comment: Performed at: CBPerformed By: #### LYMACT #### [facility] [address] [address] [address] Juan PatelV (RBC) [Entitic vol]92 yJPidzct81-83Euc [facility] Comment on above:Result Comment: Performed at: CBPerformed By: #### LYMACT #### [facility] [address] [place] [address] Dr. Juan Carpenterocytes (Bld) [#/Vol]0.3 10*3/uLNormal0.1-0.9[facility] HospitalComment on above:Result Comment: Performed at: CBPerformed By: #### LYMACT #### [facility] [address] [place] [address] Dr. Juan Carpenterocytes/100 WBC (Bld)4 %NormalNot Estab.The [facility] Comment on above:Result Comment: Performed at: CBPerformed By: #### LYMACT #### [facility] [address] [place] [address] Dr. Juan Abrahamutrophils Absolute4.0 x10E3/uLNormal1.4-7.0The [facility] HospitalComment on above:Result Comment: Performed at: CBPerformed By: #### LYMACT #### [facility] [address] [place] [address] Dr. Juan Abrahamutrophils/100 WBC (Bld)60 %NormalNot Estab.The [facility] HospitalComment on above:Result Comment: Performed at: CBPerformed By: #### LYMACT #### [facility] [address] [place] [address] Dr. Juan ZamarripaNRBCNormalThe [facility] HospitalComment on above:Result Comment: Performed at: CBPerformed By: #### LYMACT #### [facility] [address] [place] [address] Dr. Juan Christiansenlets (Bld) [#/Vol]164 10*3/jPTuzcqh149-772Orb [facility] HospitalComment on above:Result Comment: Performed at: CBPerformed By: #### LYMACT #### [facility] [address] [address] [address] Juan Cruz (Bld) [#/Vol]4.54 10*6/uLNormal3.77-5.28[facility] Comment on above:Result Comment: Performed at: CBPerformed By: #### LYMACT #### [facility] [address] [place] [address] Dr. Juan Wahl (Bld) [#/Vol]6.6 10*3/uLNormal3.4-10.8The [facility] Comment on above:Result Comment: Performed at: CBPerformed By: #### LYMACT #### [facility] [address] [place] [address] Dr. Juan Simmons 14(COMP METB)on 13-06-6479Wtcnvbl [Mass/Vol]4.1 g/dLNormal 3.4-5.0The [facility] HospitalComment on above:Performed By: #### LIPA, HSTROPN, TSH, CMP #### [facility] [address] [place] [address] Dr. Juan ZamarripaAlbumin/Globulin [Mass ratio]1.1 {ratio}NormalThe [facility] HospitalComment on above:Performed By: #### LIPA, HSTROPN, TSH, CMP #### [facility] [address] [place] [address] Dr. Juan Proctor [Catalytic activity/Vol]107 U/OAwzzrl47-043Imq [facility] HospitalComment on above:Performed By: #### LIPA, HSTROPN, TSH, CMP #### [facility] [address] [place] [address] Dr. Juan Valero [Catalytic activity/Vol]69 U/LCritically taaz99-79Mvg [facility] HospitalComment on above:Performed By: #### LIPA, HSTROPN, TSH, CMP #### [facility] [address] [place] [address] Dr. Juan Almonte gap [Moles/Vol]14.0 mmol/LNormalThe [facility] Comment on above:Performed By: #### LIPA, HSTROPN, TSH, CMP #### [facility] [address] [place] [address] Dr. Juan ZamarripaAST [Catalytic activity/Vol]31 U/RJcspft18-79Phw [facility] HospitalComment on above:Performed By: #### LIPA, HSTROPN, TSH, CMP #### [facility] [address] [place] [address] Dr. Juan ZamarripaBilirubin [Mass/Vol]0.8 mg/dLNormal0.2-1.0The [facility] Comment on above:Performed By: #### LIPA, HSTROPN, TSH, CMP #### [facility] [address] [place] [address] Dr. Juan ZamarripaCalcium [Mass/Vol]9.1 mg/dLNormal8.5-10.1[facility] Comment on above:Performed By: #### LIPA, HSTROPN, TSH, CMP #### [facility] [address] [place] [address] Dr. Juan ZamarripaChloride [Moles/Vol]104 mmol/KFrilzv35-393DklOhiohealth [facility] Comment on above:Performed By: #### LIPA, HSTROPN, TSH, CMP #### [facility] [address] [place] [address] Dr. Juan ZamarripaCO2 [Moles/Vol]28.1 mmol/IUrwfrn65.0-32.0[facility] Comment on above:Performed By: #### LIPA, HSTROPN, TSH, CMP #### [facility] [address] [place] [address] Dr. Juan ZamarripaCreatinine [Mass/Vol]0.77 mg/dLNormal0.55-1.02[facility] HospitalComment on above:Performed By: #### LIPA, HSTROPN, TSH, CMP #### [facility] [address] [place] [address] Dr. Martinez ChangEGFR-AF EGYPTIAN>60Normal>=60The [facility] HospitalComment on above:Performed By: #### LIPA, HSTROPN, TSH, CMP #### [facility] [address] [place] [address] Dr. Juan Alvarez-NON AF EGYPTIAN>60Normal>=60The [facility] HospitalComment on above:Performed By: #### LIPA, HSTROPN, TSH, CMP #### [facility] [address] [place] [address] Dr. Juan ZamarripaGlobulin (S) [Mass/Vol]3.9 g/dLNormalThe [facility] HospitalComment on above:Performed By: #### LIPA, HSTROPN, TSH, CMP #### [facility] [address] [place] [address] Dr. Juan ZamarripaGlucose [Mass/Vol]186 mg/dLCritically xgoc25-804Glf [facility] HospitalComment on above:Performed By: #### LIPA, HSTROPN, TSH, CMP #### [facility] [address] [place] [address] Dr. Juan ZamarripaPotassium [Moles/Vol]4.1 mmol/LNormal3.5-5.1[facility] Comment on above:Performed By: #### LIPA, HSTROPN, TSH, CMP #### [facility] [address] [place] [address] Dr. Juan ZamarripaProtein [Mass/Vol]8.0 g/dLNormal6.4-8.2The [facility] Comment on above:Performed By: #### LIPA, HSTROPN, TSH, CMP #### [facility] [address] [place] [address] Dr. Juan ZamarripaSodium [Moles/Vol]142 mmol/CKtmjbn397-810Zly [facility] Comment on above:Performed By: #### LIPA, HSTROPN, TSH, CMP #### [facility] [address] [place] [address] Dr. Juan ZamarripaUrea nitrogen [Mass/Vol]9.0 mg/dLNormal7.0-18.0The [facility] HospitalComment on above:Performed By: #### LIPA, HSTROPN, TSH, CMP #### [facility] [address] [place] [address] Dr. Juan Joseph nitrogen/Creatinine [Mass ratio]11.7 mg/mgNormalThe [facility] HospitalComment on above:Performed By: #### LIPA, HSTROPN, TSH, CMP #### [facility] [address] [place] [address] Dr. Juan ZamarripaCULTURE URINEon 69-22-4792IJFRRWA URINECulture Observations: LIGHT GROWTH OF MIXED GENITAL ALDA. NO POTENTIAL PATHOGENS SEEN.NormalThe [facility] HospitalComment on above:Performed By: #### URCX #### [facility] [address] [place] [address] Dr. Juan Bearden RANDOMon 84-33-9767Rywanmc Ql (U)100 mg/dlAbnormalNEGATIVEThe [facility] HospitalComment on above:Performed By: #### UA #### [facility] [address] [place] [address] Dr. Juan ZamarripaLEUKOCYTESSMALLAbnormalNEGATIVEThe [facility] HospitalComment on above:Performed By: #### UA #### [facility] [address] [place] [address] Dr. Juan ZamarripaSPEC GRAVITY1.195Ehktjh7.005-<=1.025The [facility] HospitalComment on above:Performed By: #### UA #### [facility] [address] [place] [address] Dr. Juan Bearden PROTEINNegativeNormalNEGATIVE/ TRACEThe [facility] Comment on above:Performed By: #### UA #### [facility] [address] [place] [address] Dr. Juan ZamarripaUrobilinogen Qn (U)0.2 {Amee'U}/dLNormal0.2 - 1.0The [facility] HospitalComment on above:Performed By: #### UA #### [facility] [address] [place] [address] Dr. Juan Almonte 00-07-6846Crqhawa Ql (U)100 mg/dlAbnormalNEGATIVE mg/dlNoProxeon Other Urinalysissee noteNohawthorn children's psychiatric hospital TCM Bertha Other 9391Pqktirygnr2.0151.005-<=1.025Nohawthorn [facility] TCM Bertha Other UrinalysisNegativeNEGATIVE/ TRACE mg/dlNoGrupo Leñoso [employer] Other 7656Hyserozfvv7.2 EU/dl0.2 - 1.0 EU/dlNoProxeon Other UrinalysisSMALLAbnormalNEGATIVESeaDragon Software Other Bilirubin Ql (U)NegativeNormalNEGTraceWorks Other Comment on above:Performed By: #### UA #### [facility] [address] [address] [address] Juan Dyearity (U)CLEARNormalCLEARSeaDragon Software Other Comment on above:Performed By: #### UA #### [facility] [address] [address] [address] Juan Dowell (U)LT. YELLOWNormalYELLOWSeaDragon Software Other Comment on above:Performed By: #### UA #### [facility] [address] [address] [address] Juan ZamarripaHemoglobin Ql (U)NegativeNormalNEGTraceWorks Other Comment on above:Performed By: #### UA #### [facility] [address] [address] [address] Juan ZamarripaKetones Ql (U)NegativeNormalNEGATIVESeaDragon Software Other Comment on above:Performed By: #### UA #### [facility] [address] [place] [address] Dr. Juan Benítez Ql (U)NegativeNormalNEGATIVENohawthorn children's psychiatric hospital TCM Bertha Other Comment on above:Performed By: #### UA #### [facility] [address] [place] [address] Dr. Juan ZamarripapH (U)6.0 [pH]Normal5-9Nohawthorn [facility] TCM Bertha Other Comment on above:Performed By: #### UA #### [facility] [address] [place] [address] Dr. Juan Cooley URINEon 42-85-4269YMZNKTO URINEIsolate 1 Enterococcus faecalis 25,000 cfu/mL of ORGANISM 1 Enterococcus faecalis ANTIBIOTIC M.I.C RX STATUS Beta-Lactamase Pos POS F Benzylpenicillin 2 S F Ampicillin <=2 S F Gentamicin High Level (synergy) SYN-S S F Streptomycin High Level (synergy) SYN-S S F Ciprofloxacin 1 S F Levofloxacin 1 S F Quinupristin/Dalfopristin 4 R F Linezolid 2 S F Vancomycin 1 S F Tetracycline <=1 S F Nitrofurantoin <=16 S FNormalThe Mckitrick HospitalComment on above:Performed By: #### A1C #### [facility] [address] [place] [address] Dr. Juan Cartwright by IFAon [id number] Antibodies, IFAPositive AbnormalOhiohealth Pickerington Methodist HospitalComment on above:Result Comment: Negative <1:80 Borderline 1:80 Positive >1:80Performed By: #### LIPA, HSTROPN, TSH, CMP #### [facility] [address] [place] [address] Dr. Juan Arreola [facility] HospitalComment on above: Performed By: #### LIPA, HSTROPN, TSH, CMP #### [facility] [address] [place] [address] Dr. Juan Alvarenga [facility] HospitalComment on above: Performed By: #### LIPA, HSTROPN, TSH, CMP #### [facility] [address], [place] [address] Dr. Juan ZamarripaHomogeneous Pattern1:160Critically highOhiohealth Pickerington Methodist Hospital Comment on above:Result Comment: ICAP nomenclature: AC-1Performed By: #### LIPA, HSTROPN, TSH, CMP #### [facility] [address], [place] [address] Dr. Juan ZamarripaMidbody PatternNormWilson Memorial HospitalComment on above: Performed By: #### LIPA, HSTROPN, TSH, CMP #### [facility] [id number] [address] Juan ZamarripaNote:CommentNoLake County Memorial Hospital - West on above:Result Comment: For more information about Hep-2 cell [...] titers Nucleosomes, Histones Drug-induced SLE Speckled Sm, MATERIALS SCIENTIST, SCL-70, SLE,MCTD,PSS (diffuse form), SS-A/SS-B Sjogrens Nucleolar SCL-70, PM- 1/SCL High titers Scleroderma, PM/DM Centromere Centromere PSS (limited form)w/Crest syndrome variable Nuclear Dot Sp100,m60-kmeltk Primary Biliary Cirrhosis Nuclear GP210, Primary Biliary Cirrhosis Membrane trinity A,B,C Performed By: #### LIPA, HSTROPN, TSH, CMP #### [facility] [address] [place] [address] Dr. Juan Mack Dot PatternNormMercy Health St. Charles Hospital on above: Performed By: #### LIPA, HSTROPN, TSH, CMP #### [facility] [address] [place] [address] Dr. Juan Mack Membrane PatternNormMercy Health St. Charles Hospital on above:Performed By: #### LIPA, HSTROPN, TSH, CMP #### [facility] [address] [place] [address] Dr. Juan Medelolar PatternNormalThe Amor HospitalComment on above: Performed By: #### LIPA, HSTROPN, TSH, CMP #### [facility] [address] [address] [address] Juan Kraft [facility] HospitalComment on above:Performed By: #### LIPA, HSTROPN, TSH, CMP #### [facility] [address] [place] [address] Dr. Juan ZamarripaSpeckled Pattern1:160Critically highThe Mckitrick HospitalComment on above:Result Comment: ICAP nomenclature: AC-2,4,5,29Performed By: #### LIPA, HSTROPN, TSH, CMP #### [facility] [address] [place] [address] Dr. Juan Morelos [employer] [facility] HospitalComment on above:Performed By: #### LIPA, HSTROPN, TSH, CMP #### [facility] [address] [place] [address] Dr. Juan MancusoEUMATOID FACTORon [id number] Latex Turbid.<10.0Normal<14.0[facility] on above:Performed By: #### LIPA, HSTROPN, TSH, CMP #### [facility] [address] [place] [address] Dr. Juan Parada AUTO DIFFon [id number] #0.0 103/ulNormal0.0-0.1The [facility] HospitalComhavenwyck hospital on above:Performed By: #### CBC #### [facility] [address] [place] [address] Dr. Juan ZamarripaBasophils/100 WBC (Bld)0.4 %Normal0.2-2.0[facility] Comment on above:Performed By: #### CBC #### [facility] [address] [place] [address] Dr. Martinez ChangEO #0.1 103/ulNormal0.0-0.7The [facility] HospitalComhavenwyck hospital on above: Performed By: #### CBC #### [facility] [address] [address] [address] Juan Hickmanosinophils/100 WBC (Bld)1.8 %Normal0.9-7.0The [facility] Comment on above:Performed By: #### CBC #### [facility] [address] [place] [address] Dr. Juan Hickmanrythrocyte distribution width (RBC) [Ratio]12.6 %Bjlwrl88.0-15.0 The Mckitrick HospitalComment on above:Performed By: #### CBC #### [facility] [address] [place] [address] Dr. Juan ZamarripaHematocrit (Bld) [Volume fraction]36.9 %Vbngkx55.0-48.0The [facility]itrick HospitalComment on above:Performed By: #### CBC #### [facility] [address] [place] [address] Dr. Juan ZamarripaHemoglobin (Bld) [Mass/Vol]12.6 g/qDCyspqg47.0-16.0The [facility]ment on above:Performed By: #### CBC #### [facility] [address] [place] [address] Dr. Juan Earl #0.02 10e3/ulNormal0.00-0.03The [facility]Healthment on above:Performed By: #### CBC #### [facility] [address] [place] [address] Dr. Juan Earl %0.3 %Normal0.0-0.5The [facility] on above: Performed By: #### CBC #### [facility] [address] [place] [address] Dr. Juan VegasH #3.3 103/ulNormal1.2-3.8The [facility]itrick HospitalComment on above:Performed By: #### CBC #### [facility] [address] [place] [address] Dr. Juan Zaidimphocytes/100 WBC (Bld)42.9 %Whynlj56.5-60.0The Nashville HospitalComment on above:Performed By: #### CBC #### [facility] [address] [address] [address] Juan Byrd DIFF REQNONormalThe Mckitrick HospitalComment on above: Performed By: #### CBC #### [facility] [address] [place] [address] Dr. Juan Patel (RBC) [Entitic mass]31.2 clQldxfa93.7-34.0The [facility]itrick HospitalComment on above:Performed By: #### CBC #### [facility] [address] [place] [address] Dr. Juan Patel (RBC) [Mass/Vol]34.1 g/vJFwswgg10.9-35.2The [facility]itrick HospitalComment on above:Performed By: #### CBC #### [facility] [address] [place] [address] Dr. Juan Patel (RBC) [Entitic vol]91.3 mSUasdgw79.0-99.0The M[facility]itrick HospitalComment on above:Performed By: #### CBC #### [facility] [address] [place] [address] Dr. Juan Hamm #0.3 103/ulNormal0.3-0.8The M[facility]itrick HospitalComment on above:Performed By: #### CBC #### [facility] [address] [place] [address] Dr. Juan Carpenterocytes/100 WBC (Bld)4.4 %Normal1.7-12.0The [facility] Comment on above:Performed By: #### CBC #### [facility] [address] [place] [address] Dr. Juan Coels #3.9 103/ulNormal1.4-6.5The [facility]itrick HospitalComment on above:Performed By: #### CBC #### [facility] [address] [place] [address] Dr. Juan Abrahamutrophils/100 WBC (Bld)50.2 %Ugcozp73.0-75.0The [facility]itrick HospitalComment on above:Performed By: #### CBC #### [facility] [address] [place] [address] Dr. Juan Mcbride mean volume (Bld) [Entitic vol]9.0 fLCritically low 9.5-13.5The Mckitrick HospitalComment on above:Performed By: #### CBC #### [facility] [address] [place] [address] Dr. Juan ZamarripaPLT158 103/thJsbrzk097-690Yoq [facility]rick HospitalComment on above: Performed By: #### CBC #### [facility] [address] [place] [address] Dr. Juan ZamarripaRBC4.04 106/ulCritically low4.20-5.40The [facility]ment on above:Performed By: #### CBC #### [facility] [address] [place] [address] Dr. Juan ZamarripaWBC7.8 103/ulNormal4.0-11.0The Mckitrick HospitalComment on above: Performed By: #### CBC #### [facility] [address] [place] [address] Dr. Juan Cooley BLOODon 36-62-7385Plppilyphsl examination of blood, cultureCulture Observations: NO GROWTH AT 5 DAYS.NormalThe Mckitrick HospitalComment on above:Performed By: #### A1C #### [facility] [address] [place] [address] Dr. Juan ZamarripaPROF 14(COMP METB)on 43-51-9044Lrpkchw [Mass/Vol]4.0 g/dLNormal 3.4-5.0The [facility]itrick HospitalComment on above:Performed By: #### LIPA, HSTROPN, TSH, CMP #### [facility] [address] [place] [address] Dr. Juan ZamarripaAlbumin/Globulin [Mass ratio]1.0 {ratio}NormalThe Mckitrick HospitalComment on above:Performed By: #### LIPA, HSTROPN, TSH, CMP #### [facility] [address] [place] [address] Dr. Juan CampbellP [Catalytic activity/Vol]87 U/THwiyac48-937Psc TriHealthment on above:Performed By: #### LIPA, HSTROPN, TSH, CMP #### [facility] [address] [place] [address] Dr. Juan CampbellT [Catalytic activity/Vol]78 U/LCritically thyl59-47Tlg [facility] HospitalComment on above:Performed By: #### LIPA, HSTROPN, TSH, CMP #### [facility] [address] [place] [address] Dr. Juan Almonte gap [Moles/Vol]12.4 mmol/LNormalOhiohealth [facility] Comment on above:Performed By: #### LIPA, HSTROPN, TSH, CMP #### [facility] [address] [place] [address] Dr. Juan Hernandez [Catalytic activity/Vol]39 U/LCritically ntrn19-34Mdr [facility]rick HospitalComment on above:Performed By: #### LIPA, HSTROPN, TSH, CMP #### [facility] [address] [place] [address] Dr. Juan ZamarripaBilirubin [Mass/Vol]0.7 mg/dLNormal0.2-1.0[facility] Comment on above:Performed By: #### LIPA, HSTROPN, TSH, CMP #### [facility] [address] [place] [address] Dr. Juan ZamarripaCalcium [Mass/Vol]9.6 mg/dLNormal8.5-10.1[facility] Comment on above:Performed By: #### LIPA, HSTROPN, TSH, CMP #### [facility] [address] [place] [address] Dr. Juan ZamarripaChloride [Moles/Vol]101 mmol/OYwqjew82-909HpeOhiohealth Pickerington Methodist Hospital Comment on above:Performed By: #### LIPA, HSTROPN, TSH, CMP #### [facility] [address] [address] [address] Juan ZamarripaCO2 [Moles/Vol]29.5 mmol/UYpyfpz07.0-32.0The [facility] Comment on above:Performed By: #### LIPA, HSTROPN, TSH, CMP #### [facility] [address] [address] [address] Juan ZamarripaCreatinine [Mass/Vol]0.84 mg/dLNormal0.55-1.02[facility] HospitalComment on above:Performed By: #### LIPA, HSTROPN, TSH, CMP #### [facility] [address] [place] [address] Dr. Juan HickmanGFR-AF EGYPTIAN>60Normal>=60The [facility]rick HospitalComment on above:Performed By: #### LIPA, HSTROPN, TSH, CMP #### [facility] [address] [place] [address] Dr. Juan HickmanGFR-NON AF EGYPTIAN>60Normal>=60The [facility] HospitalComment on above:Performed By: #### LIPA, HSTROPN, TSH, CMP #### [facility] [address] [place] [address] Dr. Juan ZamarripaGlobulin (S) [Mass/Vol]4.0 g/dLNormalThe [facility] HospitalComment on above:Performed By: #### LIPA, HSTROPN, TSH, CMP #### [facility] [address] [place] [address] Dr. Juan ZamarripaGlucose [Mass/Vol]208 mg/dLCritically pxfv19-019Itg [facility] HospitalComment on above:Performed By: #### LIPA, HSTROPN, TSH, CMP #### [facility] [address] [place] [address] Dr. Juan ZamarripaPotassium [Moles/Vol]3.9 mmol/LNormal3.5-5.1The [facility] Comment on above:Performed By: #### LIPA, HSTROPN, TSH, CMP #### [facility] [address] [address] [address] Juan ZamarripaProtein [Mass/Vol]8.0 g/dLNormal6.4-8.2The [facility] Comment on above:Performed By: #### LIPA, HSTROPN, TSH, CMP #### [facility] [address] [address] [address] Juan ZamarripaSodium [Moles/Vol]139 mmol/JSnwbki556-305Fuu [facility] Comment on above:Performed By: #### LIPA, HSTROPN, TSH, CMP #### [facility] [address] [place] [address] Dr. Juan ZamarripaUrea nitrogen [Mass/Vol]15.0 mg/dLNormal7.0-18.0The [facility] HospitalComment on above:Performed By: #### LIPA, HSTROPN, TSH, CMP #### [facility] [address] [place] [address] Dr. Juan ZamarripaUrea nitrogen/Creatinine [Mass ratio]17.9 mg/mgNormalThe [facility] HospitalComment on above:Performed By: #### LIPA, HSTROPN, TSH, CMP #### [facility] [address] [place] [address] Dr. Juan ZamarripaSEEliot RATE WESTERGRENon 15-88-8755TZJ RATE26 mm/hrNormal<=30The [facility] HospitalComment on above:Performed By: #### LIPA, HSTROPN, TSH, CMP #### [facility] [address] [place] [address] Dr. Juan ZamarripaCULTURE BLOODon [id number] examination of blood, cultureCulture Observations: positive anaerobic bottle 04-13-22 @ 1116 [...] >=8 R C Clindamycin <=0.25 S C Quinupristin/Dalfopristin 0.5 S C Linezolid 4 S C Vancomycin 1 S C Tetracycline 2 S C Rifampicin <=0.5 S C Trimethoprim/Sulfamethoxazole <=10 S CNormalThe [facility]itrick HospitalComment on above:Performed By: #### A1C #### [facility] [address] [place] [address] Dr. Juan Parada AUTO DIFFon [id number] #0.1 103/ulNormal0.0-0.1The [facility] HospitalComment on above:Performed By: #### CBC #### [facility] [address] [place] [address] Dr. Juan ZamarripaBasophils/100 WBC (Bld)0.6 %Normal0.2-2.0[facility] Comment on above:Performed By: #### CBC #### [facility] [address] [place] [address] Dr. Juan Paige #0.2 103/ulNormal0.0-0.7The [facility] HospitalComment on above: Performed By: #### CBC #### [facility] [address] [place] [address] Dr. Juan Hickmanosinophils/100 WBC (Bld)1.6 %Normal0.9-7.0The [facility] Comment on above:Performed By: #### CBC #### [facility] [address] [place] [address] Dr. Juan Hickmanrythrocyte distribution width (RBC) [Ratio]12.6 %Mineca41.0-15.0 The [facility]rick HospitalComment on above:Performed By: #### CBC #### [facility] [address] [place] [address] Dr. Juan ZamarripaHematocrit (Bld) [Volume fraction]36.1 %Sblwsx13.0-48.0The [facility] HospitalComment on above:Performed By: #### CBC #### [facility] [address] [address] [address] Juan ZamarripaHemoglobin (Bld) [Mass/Vol]12.5 g/nDTtbmho81.0-16.0The [facility] HospitalComment on above:Performed By: #### CBC #### [facility] [address] [place] [address] Dr. Juan Earl #0.02 10e3/ulNormal0.00-0.03The [facility] HospitalComment on above:Performed By: #### CBC #### [facility] [address] [place] [address] Dr. Juan Earl %0.2 %Normal0.0-0.5The [facility] HospitalComment on above: Performed By: #### CBC #### [facility] [address] [place] [address] Dr. Juan Mejia #4.8 103/ulCritically high1.2-3.8The [facility] Comment on above:Performed By: #### CBC #### [facility] [address] [place] [address] Dr. Juan Vegashocytes/100 WBC (Bld)49.6 %Pxyiuk50.5-60.0The [facility] HospitalComment on above:Performed By: #### CBC #### [facility] [address] [place] [address] Dr. Juan PlataUAL DIFF REQNONormalThe [facility] HospitalComment on above: Performed By: #### CBC #### [facility] [address] [place] [address] Dr. Juan Patel (RBC) [Entitic mass]31.3 riAaldtu59.7-34.0The [facility] HospitalComment on above:Performed By: #### CBC #### [facility] [address] [place] [address] Dr. Juan Patel (RBC) [Mass/Vol]34.6 g/kPFhjtrm45.9-35.2The [facility] HospitalComment on above:Performed By: #### CBC #### [facility] [address] [address] [address] Juan PatelV (RBC) [Entitic vol]90.3 nTGlmznf29.0-99.0The [facility] on above:Performed By: #### CBC #### [facility] [address] [place] [address] Dr. Juan Hamm #0.5 103/ulNormal0.3-0.8The [facility] HospitalComment on above:Performed By: #### CBC #### [facility] [address] [place] [address] Dr. Juan Carpenterocytes/100 WBC (Bld)4.8 %Normal1.7-12.0The [facility] Comment on above:Performed By: #### CBC #### [facility] [address] [place] [address] Dr. Juan Coles #4.2 103/ulNormal1.4-6.5The [facility] HospitalComment on above:Performed By: #### CBC #### [facility] [address] [place] [address] Dr. Juan Abrahamutrophils/100 WBC (Bld)43.2 %Ldyrja04.0-75.0The [facility] HospitalComment on above:Performed By: #### CBC #### [facility] [address] [place] [address] Dr. Juan Christiansenlet mean volume (Bld) [Entitic vol]9.5 fLNormal9.5-13.5The [facility] HospitalComment on above:Performed By: #### CBC #### [facility] [address] [place] [address] Dr. Juan ZamarripaPLT149 103/ulCritically ulu256-421Ggs [facility] HospitalComment on above:Performed By: #### CBC #### [facility] [address] [place] [address] Dr. Juan ZamarripaRBC4.00 106/ulCritically low4.20-5.40The [facility] HospitalComment on above:Performed By: #### CBC #### [facility] [address] [place] [address] Dr. Juan ZamarripaWBC9.6 103/ulNormal4.0-11.0The [facility] HospitalComment on above: Performed By: #### CBC #### [facility] [address] [place] [address] Dr. Juan FrancoF CHEM 8 (BAS METB)on 76-90-8576Exmua gap [Moles/Vol]11.4 mmol/LNormalThe [facility] HospitalComment on above:Performed By: #### LIPA, HSTROPN, TSH, CMP #### [facility] [address] [place] [address] Dr. Juan ZamarripaCalcium [Mass/Vol]8.7 mg/dLNormal8.5-10.1The [facility] Comment on above:Performed By: #### LIPA, HSTROPN, TSH, CMP #### [facility] [address] [place] [address] Dr. Juan ZamarripaChloride [Moles/Vol]102 mmol/EAhatgi18-381Ium [facility] Comment on above:Performed By: #### LIPA, HSTROPN, TSH, CMP #### [facility] [address] [place] [address] Dr. Juan ZamarripaCO2 [Moles/Vol]28.5 mmol/CXihsjo89.0-32.0[facility] Comment on above:Performed By: #### LIPA, HSTROPN, TSH, CMP #### [facility] [address] [place] [address] Dr. Juan ZamarripaCreatinine [Mass/Vol]0.88 mg/dLNormal0.55-1.02The [facility] HospitalComment on above:Performed By: #### LIPA, HSTROPN, TSH, CMP #### [facility] [address] [place] [address] Dr. Martinez ChangEGFR-AF EGYPTIAN>60Normal>=60The [facility] HospitalComment on above:Performed By: #### LIPA, HSTROPN, TSH, CMP #### [facility] [address] [address] [address] Juan HickmanGFR-NON AF EGYPTIAN>60Normal>=60The [facility] HospitalComment on above:Performed By: #### LIPA, HSTROPN, TSH, CMP #### [facility] [address] [address] [address] Juan ZamarripaGlucose [Mass/Vol]129 mg/dLCritically azrm79-045Ssk [facility] HospitalComment on above:Performed By: #### LIPA, HSTROPN, TSH, CMP #### [facility] [address] [address] [address] Juan ZamarripaPotassium [Moles/Vol]3.9 mmol/LNormal3.5-5.1[facility] Comment on above:Performed By: #### LIPA, HSTROPN, TSH, CMP #### [facility] [address] [address] [address] Juan ZamarripaSodium [Moles/Vol]138 mmol/IMlhyds040-578Hzm [facility] Comment on above:Performed By: #### LIPA, HSTROPN, TSH, CMP #### [facility] [address] [address] [address] Juan ZamarripaUrea nitrogen [Mass/Vol]12.0 mg/dLNormal7.0-18.0The [facility] HospitalComment on above:Performed By: #### LIPA, HSTROPN, TSH, CMP #### [facility] [address] [address] [address] Juan ZamarripaUrea nitrogen/Creatinine [Mass ratio]13.6 mg/mgNormalThe [facility] HospitalComment on above:Performed By: #### LIPA, HSTROPN, TSH, CMP #### [facility] [address] [address] [address] Juan ZamarripaACETONE SERUMon 05-98-2845SKOXECIMipxiaygCmvpulZKAYXXTUVpp [facility] HospitalComment on above:Performed By: #### CBC #### [facility] [address] [address] [address] Juan Fonseca CULTURE ID PANELon 04-12-2022. baumanniiNot detectedNormal NOT DETECTEDThe [facility] HospitalComhavenwyck hospital on above:Performed By: #### LIPA, HSTROPN, TSH, CMP #### [facility] [address] [place] [address] Dr. Juan Clement fragilisNot detectedNormalNOT DETECTEDThe [facility] HospitalComment on above:Performed By: #### LIPA, HSTROPN, TSH, CMP #### [facility] [address] [place] [address] Dr. Juan Freitas CONTROLSPASSBlanchard Valley Health System [facility] HospitalComhavenwyck hospital on above: Performed By: #### LIPA, HSTROPN, TSH, CMP #### [facility] [address] [place] [address] Dr. Juan FreitasBTBOO CULTURE BOTTLE INFORMATIONKindred HealthcareComment on above:Performed By: #### LIPA, HSTROPN, TSH, CMP #### [facility] [address] [place] [address] Dr. Juan FreitasPhnlzBQQSNQ5KJDPMHPHLYEXU RESISTANCE GENESKindred Healthcare Comment on above:Performed By: #### LIPA, HSTROPN, TSH, CMP #### [facility] [address] [place] [address] Dr. Juan Comer2SEE Wilson Memorial HospitalComment on above: Result Comment: Note: Antimicrobial resitance can occur via multiple mechanisms. A Not Detected result for the [employer] antomicrobial resistance gene assays does not indicate antimicrobial susceptibility. Subculturing is required for species identification and susceptibility testing of isolates.Performed By: #### LIPA, HSTROPN, TSH, CMP #### [facility] [address] [place] [address] Dr. Juan FreitasDjfslOPCUCY4LccasafaXrdrftYpf [facility] HospitalComment on above: Performed By: #### LIPA, HSTROPN, TSH, CMP #### [facility] [address] [address] [address] Juan FreitasAfcreXACNAK3ZsyubpyeIkjqifMnr [facility] HospitalComment on above: Performed By: #### LIPA, HSTROPN, TSH, CMP #### [facility] [address] [address] [address] Juan FreitasKggqaOVLSVV5LBSQVKnljpkZjyKindred HealthcareComment on above:Performed By: #### LIPA, HSTROPN, TSH, CMP #### [facility] [address] [address] [address] Juan Cooney Set:Set 1NormalThe [facility] HospitalComhavenwyck hospital on above: Performed By: #### LIPA, HSTROPN, TSH, CMP #### [facility] [address] [address] [address] Juan Cooney:AnaerobicKindred HealthcareComment on above: Performed By: #### LIPA, HSTROPN, TSH, CMP #### [facility] [address] [address] [address] Juan Dumas[address] neoformans/gattiiNot detectedNormalNOT DETECTEDThe [facility] HospitalComment on above:Performed By: #### LIPA, HSTROPN, TSH, CMP #### [facility] [address] [address] [address] Juan Cosby albicansNot detectedNormalNOT DETECTEDThe [facility] HospitalComment on above:Performed By: #### LIPA, HSTROPN, TSH, CMP #### [facility] [address] [address] [address] Juan Cosby aurisNot detectedNormalNOT DETECTEDThe [facility] on above:Performed By: #### LIPA, HSTROPN, TSH, CMP #### [facility] [address] [address] [address] Juan Cosby glabrataNot detectedNormalNOT DETECTEDThe [facility] HospitalComment on above:Performed By: #### LIPA, HSTROPN, TSH, CMP #### [facility] [address] [address] [address] Juan SinghuseiNot detectedNormalNOT DETECTEDThe [facility] Comment on above:Performed By: #### LIPA, HSTROPN, TSH, CMP #### [facility] [address] [address] [address] Juan Cosby ParapsilosisNot detectedNormalNOT DETECTEDThe [facility] HospitalComment on above:Performed By: #### LIPA, HSTROPN, TSH, CMP #### [facility] [address] [address] [address] Juan Cosby TropicalisNot detectedNormalNOT DETECTEDThe [facility] HospitalComment on above:Performed By: #### LIPA, HSTROPN, TSH, CMP #### [facility] [address] [address] [address] Juan ZamarripaCTX-M Resistant GeneNot ApplicableNormalNOT DETECTEDThe Mckitrick HospitalComment on above:Performed By: #### LIPA, HSTROPN, TSH, CMP #### [facility] [address] [address] [address] Juan Head Cloacae complexNot detectedNormalNOT DETECTEDThe [facility] on above:Performed By: #### LIPA, HSTROPN, TSH, CMP #### [facility] [address] [address] [address] Juan Head faecalisNot detectedNormalNOT DETECTEDThe [facility] Comment on above:Performed By: #### LIPA, HSTROPN, TSH, CMP #### [facility] [address] [address] [address] Juan Head faeciumNot detectedNormalNOT DETECTEDThe [facility] Comment on above:Performed By: #### LIPA, HSTROPN, TSH, CMP #### [facility] [address] [address] [address] Juan HickmannterobacteriaceaeNot detectedNormalNOT DETECTEDThe [facility] HospitalComment on above:Performed By: #### LIPA, HSTROPN, TSH, CMP #### [facility] [address] [address] [address] Juan Riveraichia coliNot detectedNormalNOT DETECTEDThe [facility] HospitalComment on above:Performed By: #### LIPA, HSTROPN, TSH, CMP #### [facility] [address] [address] [address] Juan Recinos. influenzaeNot detectedNormalNOT DETECTEDThe [facility] Comment on above:Performed By: #### LIPA, HSTROPN, TSH, CMP #### [facility] [address] [address] [address] Juan Maria Resistant GeneNot ApplicableNormalNOT DETECTEDThe [facility] on above:Performed By: #### LIPA, HSTROPN, TSH, CMP #### [facility] [address] [address] [address] Juan Celeste. oxytocaNot detectedNormalNOT DETECTEDThe [facility] Comment on above:Performed By: #### LIPA, HSTROPN, TSH, CMP #### [facility] [address] [address] [address] Juan Celeste. pneumoniaeNot detectedNormalNOT DETECTEDOhio[facility] Comment on above:Performed By: #### LIPA, HSTROPN, TSH, CMP #### [facility] [address] [address] [address] Juan Reeceebsiella aerogenesNot detectedNormalNOT DETECTEDThe [facility] HospitalComment on above:Performed By: #### LIPA, HSTROPN, TSH, CMP #### [facility] [address] [address] [address] Juan ZamarripaKPC Resistant GeneNot ApplicableNormalNOT DETECTEDThe [facility] HospitalComment on above:Performed By: #### LIPA, HSTROPN, TSH, CMP #### [facility] [address] [address] [address] Juan Servin. monocytogenesNot detectedNormalNOT DETECTEDThe [facility] HospitalComment on above:Performed By: #### LIPA, HSTROPN, TSH, CMP #### [facility] [address] [address] [address] Juan Morrissey-1 Resistant GeneNot ApplicableNormalNOT DETECTEDThe [facility] on above:Performed By: #### LIPA, HSTROPN, TSH, CMP #### [facility] [address] [place] [address] Dr. Juan Gama/CNot ApplicableNormalNOT DETECTEDOhio[facility] Comment on above:Performed By: #### LIPA, HSTROPN, TSH, CMP #### [facility] [address] [place] [address] Dr. Juan Gama/C MREJNot ApplicableNormalNOT DETECTEDOhio[facility] Comment on above:Performed By: #### LIPA, HSTROPN, TSH, CMP #### [facility] [address] [place] [address] Dr. Juan Sunshine. meningitidisNot detectedNormalNOT DETECTEDThe [facility] on above:Performed By: #### LIPA, HSTROPN, TSH, CMP #### [facility] [address] [place] [address] Dr. Juan Mcdaniel Resistant GeneNot ApplicableNormalNOT DETECTEDThe [facility] HospitalComment on above:Performed By: #### LIPA, HSTROPN, TSH, CMP #### [facility] [address] [place] [address] Dr. Juan HickmanCnukbUdl-52-dvkhOwj ApplicableNormalNOT DETECTEDOhio[facility] Comment on above:Performed By: #### LIPA, HSTROPN, TSH, CMP #### [facility] [address] [place] [address] Dr. Juan ZamarripaProteusNot detectedNormalNOT DETECTEDThe [facility] on above:Performed By: #### LIPA, HSTROPN, TSH, CMP #### [facility] [address] [place] [address] Dr. Juan Shaw. aeruginosaNot detectedNormalNOT DETECTEDThe [facility] HospitalComment on above:Performed By: #### LIPA, HSTROPN, TSH, CMP #### [facility] [address] [address] [address] Juan Cameron. maltophiliaNot detectedNormalNOT DETECTEDThe [facility] Comment on above:Performed By: #### LIPA, HSTROPN, TSH, CMP #### [facility] [address] [address] [address] Juan ZamarripaSalmonellaNot detectedNormalNOT DETECTEDThe [facility] Comment on above:Performed By: #### LIPA, HSTROPN, TSH, CMP #### [facility] [address] [address] [address] Juan Barrera marcescensNot detectedNormalNOT DETECTEDThe [facility] HospitalComment on above:Performed By: #### LIPA, HSTROPN, TSH, CMP #### [facility] [address] [address] [address] Juan Dobbins:Rt AcNormalThe [facility] HospitalComment on above:Performed By: #### LIPA, HSTROPN, TSH, CMP #### [facility] [address] [address] [address] Juan Flores. aureusNot detectedNormalNOT DETECTEDThe [facility] Comment on above:Performed By: #### LIPA, HSTROPN, TSH, CMP #### [facility] [address] [address] [address] Juan Flores. epidermidisNot detectedNormalNOT DETECTEDThe [facility] HospitalComment on above:Performed By: #### LIPA, HSTROPN, TSH, CMP #### [facility] [address] [address] [address] Juan Flores. lugdunensisNot detectedNormalNOT DETECTEDOhiohealth Pickerington Methodist HospitalComment on above:Performed By: #### LIPA, HSTROPN, TSH, CMP #### [facility] [address] [address] [address] Juan WashingtonococcusDetectedCritically abnormalNOT DETECTEDThe [facility] HospitalComment on above:Performed By: #### LIPA, HSTROPN, TSH, CMP #### [facility] [address] [address] [address] Juan Sawyer. agalactiaeNot detectedNormalNOT DETECTEDThe [facility] HospitalComment on above:Performed By: #### LIPA, HSTROPN, TSH, CMP #### [facility] [address] [address] [address] Juan Sawyer. pneumoniaeNot detectedNormalNOT DETECTEDThe [facility] HospitalComment on above:Performed By: #### LIPA, HSTROPN, TSH, CMP #### [facility] [address] [address] [address] Juan Sawyer. pyogenesNot detectedNormalNOT DETECTEDThe [facility] HospitalComment on above:Performed By: #### LIPA, HSTROPN, TSH, CMP #### [facility] [address] [address] [address] Juan SaweyrtococcusNot detectedNormalNOT DETECTEDThe [facility] on above:Performed By: #### LIPA, HSTROPN, TSH, CMP #### [facility] [address] [address] [address] Juan Morrison/Keisha Resist. GeneNot ApplicableNormalNOT DETECTEDThe [facility] HospitalComment on above:Performed By: #### LIPA, HSTROPN, TSH, CMP #### [facility] [address] [address] [address] Juan Wilkerson Resistant GeneNot ApplicableNormalNOT DETECTEDThe [facility] on above:Performed By: #### LIPA, HSTROPN, TSH, CMP #### [facility] [address] [address] [address] Juan Parada AUTO DIFFon [id number] #0.1 103/ulNormal0.0-0.1The Nashville HospitalComment on above:Performed By: #### LIPA, HSTROPN, TSH, CMP #### [facility] [address] [address] [address] Juan ZamarripaBasophils/100 WBC (Bld)0.6 %Normal0.2-2.0The [facility] Comment on above:Performed By: #### LIPA, HSTROPN, TSH, CMP #### [facility] [address] [place] [address] Dr. Juan Paige #0.1 103/ulNormal0.0-0.7The [facility] HospitalComment on above: Performed By: #### LIPA, HSTROPN, TSH, CMP #### [facility] [address] [place] [address] Dr. Juan Hickmanosinophils/100 WBC (Bld)0.9 %Normal0.9-7.0The [facility] Comment on above:Performed By: #### LIPA, HSTROPN, TSH, CMP #### [facility] [address] [place] [address] Dr. Juan Hickmanrythrocyte distribution width (RBC) [Ratio]12.8 %Njfsff53.0-15.0 The [facility] HospitalComment on above:Performed By: #### LIPA, HSTROPN, TSH, CMP #### [facility] [address] [place] [address] Dr. Juan ZamarripaHematocrit (Bld) [Volume fraction]42.9 %Pwlopp05.0-48.0The [facility] HospitalComment on above:Performed By: #### LIPA, HSTROPN, TSH, CMP #### [facility] [address] [place] [address] Dr. Juan ZamarripaHemoglobin (Bld) [Mass/Vol]15.1 g/uGKqgkna75.0-16.0The [facility] on above:Performed By: #### LIPA, HSTROPN, TSH, CMP #### [facility] [address] [place] [address] Dr. Juan Earl #0.04 10e3/ulCritically high0.00-0.03The [facility] Comment on above:Performed By: #### LIPA, HSTROPN, TSH, CMP #### [facility] [address] [address] [address] Juan Earl %0.3 %Normal0.0-0.5ThRegency Hospital CompanyComment on above: Performed By: #### LIPA, HSTROPN, TSH, CMP #### [facility] [address] [place] [address] Dr. Juan Mejia #5.0 103/ulCritically high1.2-3.8The [facility] Comment on above:Performed By: #### LIPA, HSTROPN, TSH, CMP #### [facility] [address] [place] [address] Dr. Juan Romancytes/100 WBC (Bld)43.6 %Domvmp10.5-60.0The [facility] HospitalComment on above:Performed By: #### LIPA, HSTROPN, TSH, CMP #### [facility] [address] [place] [address] Dr. Juan PlataUAL DIFF REQNONormalThe [facility] HospitalComment on above: Performed By: #### LIPA, HSTROPN, TSH, CMP #### [facility] [address] [place] [address] Dr. Juan ZamarripaORANGE REG[facility]AL [facility] (RBC) [Entitic mass]31.3 bsPryswe80.7-34.0The [facility] HospitalComment on above:Performed By: #### LIPA, HSTROPN, TSH, CMP #### [facility] [address] [place] [address] Dr. Juan ZamarripaST. [facility]ER'[facility] (RBC) [Mass/Vol]35.2 g/jAOfzoix55.9-35.2The [facility] HospitalComment on above:Performed By: #### LIPA, HSTROPN, TSH, CMP #### [facility] [address] [place] [address] Dr. Juan Gonsalez (RBC) [Entitic vol]88.8 bGIvrret42.0-99.0The [facility] HospitalComment on above:Performed By: #### LIPA, HSTROPN, TSH, CMP #### [facility] [address] [place] [address] Dr. Juan Hamm #0.6 103/ulNormal0.3-0.8The [facility] HospitalComment on above:Performed By: #### LIPA, HSTROPN, TSH, CMP #### [facility] [address] [place] [address] Dr. Juan Carpenterocytes/100 WBC (Bld)5.2 %Normal1.7-12.0The [facility] Comment on above:Performed By: #### LIPA, HSTROPN, TSH, CMP #### [facility] [address] [place] [address] Dr. Juan Coles #5.7 103/ulNormal1.4-6.5The [facility] HospitalComment on above:Performed By: #### LIPA, HSTROPN, TSH, CMP #### [facility] [address] [place] [address] Dr. Juan Mckeonophils/100 WBC (Bld)49.4 %Tsfokh65.0-75.0The [facility] on above:Performed By: #### LIPA, HSTROPN, TSH, CMP #### [facility] [address] [place] [address] Dr. Juan Mcbride mean volume (Bld) [Entitic vol]9.6 fLNormal9.5-13.5The [facility]ment on above:Performed By: #### LIPA, HSTROPN, TSH, CMP #### [facility] [address] [place] [address] Dr. Juan ZamarripaPLT210 103/yoOfkxpj927-879Upt [facility] HospitalComment on above: Performed By: #### LIPA, HSTROPN, TSH, CMP #### [facility] [address], [place] [address] Dr. Juan ZamarripaRBC4.83 106/ulNormal4.20-5.40The [facility] HospitalComment on above:Performed By: #### LIPA, HSTROPN, TSH, CMP #### [facility] [address], [place] [address] Dr. Juan ZamarripaWBC11.5 103/ulCritically high4.0-11.0The [facility] HospitalComment on above:Performed By: #### LIPA, HSTROPN, TSH, CMP #### [facility] [address], [place] [address] Dr. Juan ZamarripaCT ABD/PELV W CONon [id number] ABD/PELV W CONEXAMINATION: CT ABD/PELV W CON HISTORY: DIARRHEA, UNSPECIFIED [...] angiomyolipoma. No renal calculus or hydronephrosis identified. Gastrointestinal/Peritoneum: No acute abnormality. The appendix is unremarkable. [...] Electronically authenticated by: CARO SIBLEY Date: 2022-04-12 16:53NormThe [facility]e [facility] HospitalCULTURE BLOODon [id number] examination of blood, cultureCulture Observations: NO GROWTH AT 5 DAYS. Isolate 1 BC_BA_NANormalThe [facility] HospitalComment on above:Performed By: #### A1C #### [facility] [address] [place] [address] Dr. Juan Cooley URINEon [id number] URINECulture Observations: MODERATE GROWTH OF MIXED GENITAL ALDA. NO POTENTIAL PATHOGENS SEEN.NormalThe [facility] HospitalComment on above:Performed By: #### URCX #### [facility] [address] [address] [address] Juan De Paz-19 PCR ([facility])on [id number]-CoV-2 (COVID-19) RNA SUNNY+probe Ql (Unsp spec)Not detectedNormalNOT DETECTEDOhio[facility] Comment on above:Result Comment: When diagnostic testing is negative, the [...] for this test is supported by the [employer] Director of Health and Human Service's declaration that circumstances exist to justify the emergency use of in vitro diagnostics for the detection and/or diagnosis of the virus that causes COVID-19. This EUA will remain in effect for the duration of the COVID-19 declaration justifying emergency of IVDs, unless it is terminated or revoked by the FDA (after which the test may no longer be used).Performed By: #### LIPA, HSTROPN, TSH, CMP #### [facility] [address] [place] [address] Dr. Juan Leroy URINE PROFILEon 97-83-4125Jloiypnpe Ql (U)NegativeNormal NEGATIVEOhiohealth Pickerington Methodist HospitalComhavenwyck hospital on above:Performed By: #### CBC #### [facility] [address] [place] [address] Dr. Juan Dyearity (U)SL CLOUDYAbnormalCLEARThe [facility] HospitalComment on above:Performed By: #### CBC #### [facility] [address] [place] [address] Dr. Juan Dowell (U)LT. YELLOWNormalYELLOWOhiohealth Pickerington Methodist HospitalComhavenwyck hospital on above:Performed By: #### CBC #### [facility] [address] [place] [address] Dr. Juan Palomino micrscopic examination will be performed if indicated. NormalOhiohealth Pickerington Methodist HospitalComment on above:Performed By: #### CBC #### [facility] [address] [place] [address] Dr. Juan ZamarripaGlucose Ql (U)250 mg/dlAbnormalNEGSumma Health [facility] Comment on above:Performed By: #### CBC #### [facility] [address] [place] [address] Dr. Juan ZamarripaHemoglobin Ql (U)NegativermalAdena Pike Medical Center Comment on above:Performed By: #### CBC #### [facility] [address] [place] [address] Dr. Juan ZamarripaKetones Ql (U)TRACEAbnormalNEGATIVEOhiohealth Pickering[facility] Methodist HospitalComhavenwyck hospital on above:Performed By: #### CBC #### [facility] [address] [place] [address] Dr. Juan ZamarripaLEUKOCYTESSMALLAbnormalNEGSumma Health Wad[facility] - Rittman Medical CenterComhavenwyck hospital on above:Performed By: #### CBC #### [facility] [address] [place] [address] Dr. Juan ZamarripaNitrite Ql (U)NegativeNormalNEGATIVEOhiohealth Pickerington Methodist HospitalComment on above:Performed By: #### CBC #### [facility] [address] [place] [address] Dr. Juan ZamarripapH (U)5.5 [pH]Normal5-9The [facility] HospitalComment on above: Performed By: #### CBC #### [facility] [address] [place] [address] Dr. Juan ZamarripaSPEC GRAVITY1.839Neeztkxy9.005-<=1.025The [facility] Comment on above:Performed By: #### CBC #### [facility] [address] [place] [address] Dr. Juan Bearden PROTEINNegativeNormalNEGATIVE/ TRACEThe [facility] Comment on above:Performed By: #### CBC #### [facility] [address] [place] [address] Dr. Juan Blanco MICRO INDINDICATEDKindred HealthcareComment on above: Performed By: #### CBC #### [facility] [address] [place] [address] Dr. Juan Gtzbilmery Qn (U)0.2 {Amee'U}/dLNormal0.2 - 1.0Ohio[facility] HospitalComment on above:Performed By: #### CBC #### [facility] [address] [place] [address] Dr. Juan FerrisZA A AND B AGon 58-33-7526FPWUHOKESNASTUniversity Hospitals Cleveland Medical CenterComment on above:Result Comment: Negative for Flu A protein angiten. Infection due to Flu A cannot be ruled out. FluA angiten in the sample may be below the detection limit of the test.Performed By: #### LIPA, HSTROPN, TSH, CMP #### [facility] [address] [place] [address] Dr. Juan ZamarripaINFLUBNEGAultman HospitalComment on above: Result Comment: Negative for Flu B protein antigen. Infection due to Flu B cannot be ruled out. FluB antigen in the sample may be below the detection limit of the test.Performed By: #### LIPA, HSTROPN, TSH, CMP #### [facility] [address] [place] [address] Dr. Juan Wolfe AGNegativeNormalNEGATIVE SEE COMMENTThe [facility] on above:Performed By: #### LIPA, HSTROPN, TSH, CMP #### [facility] [address] [place] [address] Dr. Juan Valdes AGNegativeNormalNEGATIVE SEE COMMENTThe [facility] on above:Performed By: #### LIPA, HSTROPN, TSH, CMP #### [facility] [address] [place] [address] Dr. Juan FonsecaCTATE/LACTIC ACIDon 96-02-2241Bunmjmi [Moles/Vol]1.8 mmol/L Normal0.4-1.9The [facility] on above:Performed By: #### CBC #### [facility] [address] [place] [address] Dr. Juan ZamarripaLactate [Moles/Vol]3.1 mmol/LCritically high0.4-1.9The [facility] on above:Performed By: #### LIPA, HSTROPN, TSH, CMP #### [facility] [address] [place] [address] Dr. Juan ZamarripaLIPASEon [id number] [Catalytic activity/Vol]183.0 U/LNormal 73.0-393.0The [facility] on above:Performed By: #### A1C #### [facility] [address] [place] [address] Dr. Juan Roa VENOUS BLOODon 38-85-5448VBM9 IHKRBY50.9 ssWeTbwzxq79.0-52.0 The [facility] on above:Performed By: #### CBC #### [facility] [address] [place] [address] Dr. Jaun ZamarripapH VENOUS7.520Fnehun0.330-7.430The [facility]Healthment on above:Performed By: #### CBC #### [facility] [address] [address] [address] Juan ZamarripaPROF 14(COMP METB)on 72-03-0378Remqhip [Mass/Vol]4.3 g/dLNormal 3.4-5.0The [facility] HospitalComment on above:Performed By: #### A1C #### [facility] [address] [address] [address] Juan ZamarripaAlbumin/Globulin [Mass ratio]1.0 {ratio}NormalThe [facility] HospitalComment on above:Performed By: #### A1C #### [facility] [address] [place] [address] Dr. Juan CampbellP [Catalytic activity/Vol]96 U/ELcjbgs68-127Iss [facility] HospitalComment on above:Performed By: #### A1C #### [facility] [address] [place] [address] Dr. Juan CampbellT [Catalytic activity/Vol]80 U/LCritically digy90-67Bxh [facility] HospitalComment on above:Performed By: #### A1C #### [facility] [address] [place] [address] Dr. Juan Almonte gap [Moles/Vol]14.7 mmol/LNormalThe [facility] Comment on above:Performed By: #### A1C #### [facility] [address] [place] [address] Dr. Juan ZamarripaAST [Catalytic activity/Vol]45 U/LCritically nyux60-00Yix [facility] HospitalComment on above:Performed By: #### A1C #### [facility] [address] [place] [address] Dr. Juan ZamarripaBilirubin [Mass/Vol]0.8 mg/dLNormal0.2-1.0The [facility] Comment on above:Performed By: #### A1C #### [facility] [address] [place] [address] Dr. Juan ZamarripaCalcium [Mass/Vol]10.0 mg/dLNormal8.5-10.1The [facility] Comment on above:Performed By: #### A1C #### [facility] [address] [address] [address] Juan ZamarripaChloride [Moles/Vol]99 mmol/INylgsi05-347Zxh [facility] Comment on above:Performed By: #### A1C #### [facility] [address] [address] [address] Juan ZamarripaCO2 [Moles/Vol]26.4 mmol/PIbhlmh38.0-32.0The [facility] Comment on above:Performed By: #### A1C #### [facility] [address] [address] [address] Juan ZamarripaCreatinine [Mass/Vol]0.89 mg/dLNormal0.55-1.02The [facility] HospitalComment on above:Performed By: #### A1C #### [facility] [address] [address] [address] Martinez ChangEGFR-AF EGYPTIAN>60Normal>=60The [facility] HospitalComment on above:Performed By: #### A1C #### [facility] [address] [address] [address] Juan HickmanGFR-NON AF EGYPTIAN>60Normal>=60The [facility] HospitalComment on above:Performed By: #### A1C #### [facility] [address] [address] [address] Juan ZamarripaGlobulin (S) [Mass/Vol]4.3 g/dLNormalThe [facility] HospitalComment on above:Performed By: #### A1C #### [facility] [address] [address] [address] Juan ZamarripaGlucose [Mass/Vol]168 mg/dLCritically yzwe43-973Nfe [facility] HospitalComment on above:Performed By: #### A1C #### [facility] [address] [address] [address] Juan ZamarripaPotassium [Moles/Vol]4.1 mmol/LNormal3.5-5.1The [facility] Comment on above:Performed By: #### A1C #### [facility] [address] [address] [address] Juan ZamarripaProtein [Mass/Vol]8.6 g/dLCritically high6.4-8.2The [facility] HospitalComment on above:Performed By: #### A1C #### [facility] [address] [place] [address] Dr. Juan ZamarripaSodium [Moles/Vol]136 mmol/GTxsffd864-632Eke [facility] Comment on above:Performed By: #### A1C #### [facility] [address] [place] [address] Dr. Juan ZamarripaUrea nitrogen [Mass/Vol]18.0 mg/dLNormal7.0-18.0The [facility] HospitalComment on above:Performed By: #### A1C #### [facility] [address] [place] [address] Dr. Juan Joseph nitrogen/Creatinine [Mass ratio]20.2 mg/mgNormalThe [facility] HospitalComment on above:Performed By: #### A1C #### [facility] [address] [place] [address] Dr. Juan Beatty, HIGH SENSITIVITYon 07-55-1653ZTJMDC0.9 pg/mLNormal 4.0-51.3The [facility] on above:Result Comment: CUT-OFF POINTS HAVE BEEN ESTABLISHED BASED ON THE FOURTH UNIVERSAL DEFINITIONS OF MYOCARDIAL INFARCTION. THE UPPER REFERENCE LIMIT (URL) OF TROPONIN, DEFINED THE 99TH PERCENTILE OF cTnI DISTRIBUTION IN A REFERENCE POPULATION, HAS BEEN CONFIRMED THE DECISION THRESHOLD FOR WI DIAGNOSIS.Performed By: #### A1C #### [facility] [address] [place] [address] Dr. Juan Goldsmith 71-11-5076ZJE5.593 uIU/mLNormal0.358-3.740The [facility] HospitalComment on above:Performed By: #### CBC #### [facility] [address] [place] [address] Dr. Juan Flores MICROSCOPIC ONLYon 45-50-7757RSOABQYIWHDCXQzvpuwssHONT SEEN The [facility] HospitalComment on above:Performed By: #### CBC #### [facility] [address] [address] [address] Juan Amaral identified Cx Nom (U)INDICATEDNoalThRegency Hospital CompanyComment on above:Performed By: #### CBC #### [facility] [address] [place] [address] Dr. Juan ZamarripaCASTNONVaishnavi SEENNormalNONE SEENOhiohealth Pickerington Methodist HospitalComhavenwyck hospital on above:Performed By: #### CBC #### [facility] [address] [address] [address] Juan ZamarripaCrystals LM Nom (Urine sed)NONE SEENNormalNONE SEENThe [facility] HospitalComhavenwyck hospital on above:Performed By: #### CBC #### [facility] [address] [place] [address] Dr. Martinez ChangEpithelial cells LM Ql (Urine sed)FEWAbnormalNONE SEEN /RAREThe [facility] HospitalComhavenwyck hospital on above:Performed By: #### CBC #### [facility] [address] [place] [address] Dr. Juan RayCOUSKEVIN SEENSamaritan HospitalE SEENOhiohealth Pickerington Methodist HospitalComhavenwyck hospital on above:Performed By: #### CBC #### [facility] [address] [place] [address] Dr. Juan ZamarripaRalsvHZR5-8Xmjhgy8-6Mdn [facility] HospitalComhavenwyck hospital on above:Performed By: #### CBC #### [facility] [address] [place] [address] Dr. Juan ZamarripaWBC2-5AbnormalNONE SEENOhiohealth Pickerington Methodist HospitalComhavenwyck hospital on above: Performed By: #### CBC #### [facility] [address] [place] [address] Dr. Juan ZamarripaXR CHEST 1 Von [id number] CHEST 1 VEXAMINATION: XR CHEST 1 V HISTORY: COUGH COMPARISON: XR chest [...] Electronically authenticated by: JAZMINE DODSON Date: 2022-04-12 15:31[facility] AUTO DIFFon [id number] #0.1 103/ulNormal0.0-0.1[facility] HospitalComment on above:Performed By: #### LIPA, HSTROPN, TSH, CMP #### [facility] [address] [place] [address] Dr. Juan ZamarripaBasophils/100 WBC (Bld)0.5 %Normal0.2-2.0[facility] Comment on above:Performed By: #### LIPA, HSTROPN, TSH, CMP #### [facility] [address] [place] [address] Dr. Juan Paige #0.1 103/ulNormal0.0-0.7The [facility] HospitalComment on above: Performed By: #### LIPA, HSTROPN, TSH, CMP #### [facility] [address] [place] [address] Dr. Juan Hickmanosinophils/100 WBC (Bld)1.1 %Normal0.9-7.0[facility] Comment on above:Performed By: #### LIPA, HSTROPN, TSH, CMP #### [facility] [address] [place] [address] Dr. Juan Hickmanrythrocyte distribution width (RBC) [Ratio]12.5 %Jxpvgz55.0-15.0 The [facility] HospitalComment on above:Performed By: #### LIPA, HSTROPN, TSH, CMP #### [facility] [address] [place] [address] Dr. Juan ZamarripaHematocrit (Bld) [Volume fraction]39.6 %Eiuyit04.0-48.0The [facility] HospitalComment on above:Performed By: #### LIPA, HSTROPN, TSH, CMP #### [facility] [address] [place] [address] Dr. Juan ZamarripaHemoglobin (Bld) [Mass/Vol]13.7 g/oIKsnuxm49.0-16.0The [facility] HospitalComment on above:Performed By: #### LIPA, HSTROPN, TSH, CMP #### [facility] [address] [place] [address] Dr. Juan Earl #0.04 10e3/ulCritically high0.00-0.03The [facility] Comment on above:Performed By: #### LIPA, HSTROPN, TSH, CMP #### [facility] [address] [place] [address] Dr. Juan Earl %0.4 %Normal0.0-0.5The [facility] HospitalComment on above: Performed By: #### LIPA, HSTROPN, TSH, CMP #### [facility] [address] [place] [address] Dr. Juan Mejia #4.2 103/ulCritically high1.2-3.8[facility] Comment on above:Performed By: #### LIPA, HSTROPN, TSH, CMP #### [facility] [address] [place] [address] Dr. Juan Vegashocytes/100 WBC (Bld)38.8 %Luzwnx55.5-60.0The [facility] HospitalComment on above:Performed By: #### LIPA, HSTROPN, TSH, CMP #### [facility] [address] [place] [address] Dr. Juan PlataUAL DIFF REQNONormalThe [facility]rick HospitalComment on above: Performed By: #### LIPA, HSTROPN, TSH, CMP #### [facility] [address] [place] [address] Dr. Juan Wadsworth (RBC) [Entitic mass]32.2 aeDnkjby89.7-34.0The [facility] HospitalComment on above:Performed By: #### LIPA, HSTROPN, TSH, CMP #### [facility] [address] [place] [address] Dr. Juan Patel (RBC) [Mass/Vol]34.6 g/dCJiwoog78.9-35.2The [facility] HospitalComment on above:Performed By: #### LIPA, HSTROPN, TSH, CMP #### [facility] [address] [place] [address] Dr. Juan Patel (RBC) [Entitic vol]93.0 pSQzgday22.0-99.0The [facility] HospitalComment on above:Performed By: #### LIPA, HSTROPN, TSH, CMP #### [facility] [address] [place] [address] Dr. Juan Hamm #0.4 103/ulNormal0.3-0.8The [facility] HospitalComment on above:Performed By: #### LIPA, HSTROPN, TSH, CMP #### [facility] [address] [place] [address] Dr. Juan Carpenterocytes/100 WBC (Bld)3.9 %Normal1.7-12.0[facility] Comment on above:Performed By: #### LIPA, HSTROPN, TSH, CMP #### [facility] [address] [place] [address] Dr. Juan Coles #6.1 103/ulNormal1.4-6.5The [facility] HospitalComment on above:Performed By: #### LIPA, HSTROPN, TSH, CMP #### [facility] [address] [place] [address] Dr. Juan Abrahamutrophils/100 WBC (Bld)55.3 %Wedmiw73.0-75.0The [facility] HospitalComment on above:Performed By: #### LIPA, HSTROPN, TSH, CMP #### [facility] [address] [place] [address] Dr. Juan Mcbride mean volume (Bld) [Entitic vol]9.6 fLNormal9.5-13.5The [facility] HospitalComment on above:Performed By: #### LIPA, HSTROPN, TSH, CMP #### [facility] [address] [place] [address] Dr. Juan ZamarripaPLT187 103/nlQpgjla823-863Vzw [facility] HospitalComment on above: Performed By: #### LIPA, HSTROPN, TSH, CMP #### [facility] [address] [place] [address] Dr. Juan ZamarripaRBC4.26 106/ulNormal4.20-5.40The [facility] HospitalComment on above:Performed By: #### LIPA, HSTROPN, TSH, CMP #### [facility] [address] [place] [address] Dr. Juan ZamarripaWBC10.9 103/ulNormal4.0-11.0The [facility] HospitalComment on above:Performed By: #### LIPA, HSTROPN, TSH, CMP #### [facility] [address] [place] [address] Dr. Juan ZamarripaCovieliot-19 PCR ([facility])on 36-97-9663UNJQ-CoV-2 (COVID-19) RNA SUNNY+probe Ql (Unsp spec)Not detectedNormalNOT DETECTEDThe [facility] Comment on above:Result Comment: When diagnostic testing is negative, the [...] for this test is supported by the [place] of Health and Human Service's declaration that circumstances exist to justify the emergency use of in vitro diagnostics for the detection and/or diagnosis of the virus that causes COVID-19. This EUA will remain in effect for the duration of the COVID-19 declaration justifying emergency of IVDs, unless it is terminated or revoked by the FDA (after which the test may no longer be used).Performed By: #### LIPA, HSTROPN, TSH, CMP #### [facility] [address] [place] [address] Dr. Juan Arroyoon [id number] [Catalytic activity/Vol]140.0 U/LNormal 73.0-393.0The [facility] HospitalComment on above:Performed By: #### LIPA, HSTROPN, TSH, CMP #### [facility] [address] [place] [address] Dr. Juan ZamarripaPROF 14(COMP METB)on 47-79-4708Qmxyoth [Mass/Vol]4.2 g/dLNormal 3.4-5.0The [facility] HospitalComment on above:Performed By: #### LIPA, HSTROPN, TSH, CMP #### [facility] [address] [place] [address] Dr. Juan ZamarripaAlbumin/Globulin [Mass ratio]1.1 {ratio}NormalThe [facility] HospitalComment on above:Performed By: #### LIPA, HSTROPN, TSH, CMP #### [facility] [address] [place] [address] Dr. Juan Proctor [Catalytic activity/Vol]93 U/FDkzcdt74-470Cpv [facility] HospitalComment on above:Performed By: #### LIPA, HSTROPN, TSH, CMP #### [facility] [address] [place] [address] Dr. Juan Valero [Catalytic activity/Vol]74 U/LCritically czee59-19Cfg [facility] HospitalComment on above:Performed By: #### LIPA, HSTROPN, TSH, CMP #### [facility] [address] [place] [address] Dr. Juan Almonte gap [Moles/Vol]15.6 mmol/LNormalThe [facility] Comment on above:Performed By: #### LIPA, HSTROPN, TSH, CMP #### [facility] [address] [place] [address] Dr. Juan ZamarripaAST [Catalytic activity/Vol]46 U/LCritically vdiq95-80JocOhiohealth Pickerington Methodist HospitalComment on above:Performed By: #### LIPA, HSTROPN, TSH, CMP #### [facility] [address] [place] [address] Dr. Juan ZamarripaBilirubin [Mass/Vol]0.6 mg/dLNormal0.2-1.0[facility] Comment on above:Performed By: #### LIPA, HSTROPN, TSH, CMP #### [facility] [address] [place] [address] [address] Juan ZamarripaCalcium [Mass/Vol]9.7 mg/dLNormal8.5-10.1The [facility] Comment on above:Performed By: #### LIPA, HSTROPN, TSH, CMP #### [facility] [address] [place] [address] Dr. Juan ZamarripaChloride [Moles/Vol]100 mmol/YWwqxia03-773ZbaOhiohealth Pickerington Methodist Hospital Comment on above:Performed By: #### LIPA, HSTROPN, TSH, CMP #### [facility] [address] [place] [address] Dr. Juan ZamarripaCO2 [Moles/Vol]25.6 mmol/XDqelcu14.0-32.0[facility] Comment on above:Performed By: #### LIPA, HSTROPN, TSH, CMP #### [facility] [address] [place] [address] Dr. Juan ZamarripaCreatinine [Mass/Vol]0.89 mg/dLNormal0.55-1.02[facility] HospitalComment on above:Performed By: #### LIPA, HSTROPN, TSH, CMP #### [facility] [address] [place] [address] Dr. Martinez ChangEGFR-AF EGYPTIAN>60Normal>=60The [facility] HospitalComment on above:Performed By: #### LIPA, HSTROPN, TSH, CMP #### [facility] [address] [place] [address] Dr. Juan HickmanGFR-NON AF EGYPTIAN>60Normal>=60The [facility] HospitalComment on above:Performed By: #### LIPA, HSTROPN, TSH, CMP #### [facility] [address] [place] [address] Dr. Juan ZamarripaGlobulin (S) [Mass/Vol]3.7 g/dLNormalThe [facility] HospitalComment on above:Performed By: #### LIPA, HSTROPN, TSH, CMP #### [facility] [address] [place] [address] Dr. Juan ZamarripaGlucose [Mass/Vol]183 mg/dLCritically ggug90-008Cgx [facility] HospitalComment on above:Performed By: #### LIPA, HSTROPN, TSH, CMP #### [facility] [address] [place] [address] Dr. Juan ZamarripaPotassium [Moles/Vol]4.2 mmol/LNormal3.5-5.1The [facility] Comment on above:Performed By: #### LIPA, HSTROPN, TSH, CMP #### [facility] [address] [place] [address] Dr. Juan ZamarripaProtein [Mass/Vol]7.9 g/dLNormal6.4-8.2The [facility] Comment on above:Performed By: #### LIPA, HSTROPN, TSH, CMP #### [facility] [address] [place] [address] Dr. Juan ZamarripaSodium [Moles/Vol]137 mmol/AZalhts975-783Cnk [facility] Comment on above:Performed By: #### LIPA, HSTROPN, TSH, CMP #### [facility] [address] [place] [address] Dr. Juan ZamarripaUrea nitrogen [Mass/Vol]13.0 mg/dLNormal7.0-18.0The [facility] HospitalComment on above:Performed By: #### LIPA, HSTROPN, TSH, CMP #### [facility] [address] [place] [address] Dr. Juan ZamarripaUrea nitrogen/Creatinine [Mass ratio]14.6 mg/mgNoKindred Hospital DaytonComment on above:Performed By: #### LIPA, HSTROPN, TSH, CMP #### [facility] [address] [address] [address] Juan Beatty, HIGH SENSITIVITYon 08-38-9910OIVLJF4.6 pg/mLNormal 4.0-51.3The [facility] HospitalComment on above:Result Comment: CUT-OFF POINTS HAVE BEEN ESTABLISHED BASED ON THE FOURTH UNIVERSAL DEFINITIONS OF MYOCARDIAL INFARCTION. THE UPPER REFERENCE LIMIT (URL) OF TROPONIN, DEFINED THE 99TH PERCENTILE OF cTnI DISTRIBUTION IN A REFERENCE POPULATION, HAS BEEN CONFIRMED THE DECISION THRESHOLD FOR WI DIAGNOSIS.Performed By: #### LIPA, HSTROPN, TSH, CMP #### [facility] [address] [place] [address] Dr. Juan Goldsmith 64-46-6285QRY5.343 uIU/mLNormal0.358-3.740The [facility] HospitalComment on above:Performed By: #### LIPA, HSTROPN, TSH, CMP #### [facility] [address] [place] [address] Dr. Juan ZamarripaXR CHEST 1 Von [id number] CHEST 1 VEXAM: XR CHEST 1 V COMPARISON: None available. [...] Electronically authenticated by: VERA ARANA Date: 2021-11-26 21:03NoKindred Hospital DaytonCovid-19 PCR ([facility]VDTB[facility])on 25-02-5276GPWN-CoV-2 (COVID-19) RNA SUNNY+probe Ql (Unsp spec)Not detectedNormalNOT DETECTEDThe [facility] Comment on above:Result Comment: This test is not yet approved or cleared by the [place] FDA. When there are no FDA-approved or cleared tests available, and other criteria are met, FDA can make tests available under an emergency access mechanism called an Emergency Use Authorization (EUA). The EUA for this test is supported by the [employer] of Health and Human Service's (HHS's) declaration that circumstances exist to justify the emergency use of in vitro diagnostics for the detection and/or diagnosis of the virus that causes COVID- 19. This EUA will remain in effect (meaning [...] of clinical signs and symptoms consistent with SARS-CoV-2.Performed By: #### CBC #### [facility] [address] [place] [address] Dr. Juan Parada AUTO DIFFon [id number] #0.1 103/ulNormal0.0-0.1[facility] HospitalComment on above:Performed By: #### LIPA, HSTROPN, TSH, CMP #### [facility] [address] [place] [address] Dr. Juan ZamarripaBasophils/100 WBC (Bld)0.7 %Normal0.2-2.0[facility] Comment on above:Performed By: #### LIPA, HSTROPN, TSH, CMP #### [facility] [address] [place] [address] Dr. Juan Paige #0.1 103/ulNormal0.0-0.7The [facility] HospitalComment on above: Performed By: #### LIPA, HSTROPN, TSH, CMP #### [facility] [address] [place] [address] Dr. Juan Hickmanosinophils/100 WBC (Bld)1.6 %Normal0.9-7.0[facility] Comment on above:Performed By: #### LIPA, HSTROPN, TSH, CMP #### [facility] [address] [place] [address] Dr. Juan Hickmanrythrocyte distribution width (RBC) [Ratio]12.6 %Drdtok17.0-15.0 The [facility] HospitalComment on above:Performed By: #### LIPA, HSTROPN, TSH, CMP #### [facility] [address] [place] [address] Dr. Juan ZamarripaHematocrit (Bld) [Volume fraction]39.8 %Phsgtl29.0-48.0The [facility] HospitalComment on above:Performed By: #### LIPA, HSTROPN, TSH, CMP #### [facility] [address] [place] [address] Dr. Juan ZamarripaHemoglobin (Bld) [Mass/Vol]13.7 g/sUNnrjvv31.0-16.0The [facility] HospitalComment on above:Performed By: #### LIPA, HSTROPN, TSH, CMP #### [facility] [address] [place] [address] Dr. Juan Earl #0.02 10e3/ulNormal0.00-0.03The [facility] HospitalComhavenwyck hospital on above:Performed By: #### LIPA, HSTROPN, TSH, CMP #### [facility] [address] [place] [address] Dr. Juan Earl %0.3 %Normal0.0-0.5The [facility] HospitalComhavenwyck hospital on above: Performed By: #### LIPA, HSTROPN, TSH, CMP #### [facility] [address] [place] [address] Dr. Juan VegasH #3.1 103/ulNormal1.2-3.8The [facility] HospitalComment on above:Performed By: #### LIPA, HSTROPN, TSH, CMP #### [facility] [address] [place] [address] Dr. Juan Zaidimphocytes/100 WBC (Bld)40.5 %Ppeduk95.5-60.0The [facility] HospitalComment on above:Performed By: #### LIPA, HSTROPN, TSH, CMP #### [facility] [address] [address] [address] Juan Byrd DIFF REQNONormalThe [facility] HospitalComment on above: Performed By: #### LIPA, HSTROPN, TSH, CMP #### [facility] [address] [place] [address] Dr. Juan Patel (RBC) [Entitic mass]32.3 ahXjtlhh42.7-34.0The [facility] HospitalComment on above:Performed By: #### LIPA, HSTROPN, TSH, CMP #### [facility] [address] [place] [address] Dr. Juan Patel (RBC) [Mass/Vol]34.4 g/lXLyygrh74.9-35.2The [facility] HospitalComment on above:Performed By: #### LIPA, HSTROPN, TSH, CMP #### [facility] [address] [place] [address] Dr. Juan Patel (RBC) [Entitic vol]93.9 mFIgwedd93.0-99.0The [facility] HospitalComment on above:Performed By: #### LIPA, HSTROPN, TSH, CMP #### [facility] [address] [place] [address] Dr. Juan Hamm #0.3 103/ulNormal0.3-0.8The [facility] HospitalComment on above:Performed By: #### LIPA, HSTROPN, TSH, CMP #### [facility] [address] [place] [address] Dr. Juan Carpenterocytes/100 WBC (Bld)4.2 %Normal1.7-12.0The [facility] Comment on above:Performed By: #### LIPA, HSTROPN, TSH, CMP #### [facility] [address] [place] [address] Dr. Juan Coles #4.0 103/ulNormal1.4-6.5The [facility] HospitalComment on above:Performed By: #### LIPA, HSTROPN, TSH, CMP #### [facility] [address] [place] [address] Dr. Juan Mckeonophils/100 WBC (Bld)52.7 %Emylyd28.0-75.0The [facility] on above:Performed By: #### LIPA, HSTROPN, TSH, CMP #### [facility] [address] [place] [address] Dr. Juan Mcbride mean volume (Bld) [Entitic vol]9.7 fLNormal9.5-13.5The [facility] on above:Performed By: #### LIPA, HSTROPN, TSH, CMP #### [facility] [address] [place] [address] Dr. Juan ZamarripaPLT164 103/cvPcxqwp085-109Kda [facility] on above: Performed By: #### LIPA, HSTROPN, TSH, CMP #### [facility] [address] [place] [address] Dr. Juan ZamarripaRBC4.24 106/ulNormal4.20-5.40The [facility] on above:Performed By: #### LIPA, HSTROPN, TSH, CMP #### [facility] [address] [place] [address] Dr. Juan ZamarripaWBC7.6 103/ulNormal4.0-11.0The [facility] on above: Performed By: #### LIPA, HSTROPN, TSH, CMP #### [facility] [address] [place] [address] Dr. Juan ZamarripaFRCAREN T4on 29-06-7742Gwnc T4 [Mass/Vol]1.00 ng/dLNormal0.76-1.46 The [facility] on above:Performed By: #### CBC #### [facility] [address] [place] [address] Dr. Juan ZamarripaGLYCOHEMOGLOBIN A1Con 35-98-1032BMP RECOMMENDATIONSEE BELOWNormvt The [facility] HospitalComment on above:Result Comment: ADA RECOMMENDED LIMIT 4.0 - 6.0 ADA THERAPEUTIC TARGET < 7.0 ACTION SUGGESTED > 7.0Performed By: #### A1C #### [facility] [address] [address] [address] Juan ZamarripaGlucose [Mass/Vol]140 mg/dLNoKindred Hospital DaytonComment on above:Performed By: #### A1C #### [facility] [address] [address] [address] Juan ZamarripaHbA1c (Bld) [Mass fraction]6.5 %Critically high4.5-6.2The [facility] HospitalComment on above:Performed By: #### A1C #### [facility] [address] [place] [address] Dr. Juan ZamarripaLIPID PROFILEon 42-49-2194AMPW-HDL RATIO NORMSEE [facility] HospitalComment on above:Result Comment: 3.3 - 4.4 LOW RISK 4.4 - 7.1 AVERAGE RISK 7.1 - 11.0 MODERATE RISK >11.0 HIGH RISKPerformed By: #### LIPA, HSTROPN, TSH, CMP #### [facility] [address] [address] [address] Juan ZamarripaCholesterol [Mass/Vol]115 mg/dLNormal<=200The [facility] Comment on above:Performed By: #### LIPA, HSTROPN, TSH, CMP #### [facility] [address] [address] [address] Juan ZamarripaCholesterol in HDL [Mass/Vol]40 mg/wQFxedab12-13Lbh [facility] HospitalComment on above:Performed By: #### LIPA, HSTROPN, TSH, CMP #### [facility] [address] [place] [address] Dr. Juan ZamarripaCholesterol in LDL [Mass/Vol]53.6 mg/dLNoKindred Hospital DaytonComment on above:Performed By: #### LIPA, HSTROPN, TSH, CMP #### [facility] [address] [address] [address] Juan ZamarripaCholesterol.total/Cholesterol in HDL [Mass ratio]2.9 {ratio} NormalThe [facility] HospitalComment on above:Performed By: #### LIPA, HSTROPN, TSH, CMP #### [facility] [address] [address] [address] Juan Powell NORMAL> or = 60 mg/dl - LOW CARDIOVASCULAR RISK <40 mg/dl - HIGH CARDIOVASCULAR RISKKindred HealthcareComment on above:Performed By: #### LIPA, HSTROPN, TSH, CMP #### [facility] [address] [place] [address] Dr. Juan ZamarripaLDL CALC NORMALSEE BELOWKindred HealthcareComment on above:Result Comment: <100 mg/dl OPTIMAL 100 - 129 mg/dl NEAR OR ABOVE OPTIMAL 130 - 159 mg/dl BORDERLINE HIGH 160 - 189 mg/dl HIGH >190 mg/dl VERY HIGH Performed By: #### LIPA, HSTROPN, TSH, CMP #### [facility] [address] [place] [address] Dr. Juan ZamarripaTriglyceride [Mass/Vol]107 mg/dLNormal<=150The [facility] Comment on above:Performed By: #### LIPA, HSTROPN, TSH, CMP #### [facility] [address] [address] [address] Juan ZamarripaVLDL CALC21.4 mg/dLNoKindred Hospital DaytonComment on above: Performed By: #### LIPA, HSTROPN, TSH, CMP #### [facility] [address] [address] [address] Juan ZamarripaPROJose Luis 14(COMP METB)on 02-55-5614Lsgpltj [Mass/Vol]4.1 g/dLNormal 3.4-5.0The [facility] HospitalComment on above:Performed By: #### LIPA, HSTROPN, TSH, CMP #### [facility] [address] [place] [address] Dr. Juan ZamarripaAlbumin/Globulin [Mass ratio]1.1 {ratio}NormalThe [facility] HospitalComment on above:Performed By: #### LIPA, HSTROPN, TSH, CMP #### [facility] [address] [place] [address] Dr. Juan CampbellP [Catalytic activity/Vol]94 U/RXpuulk81-835Hdn [facility] HospitalComment on above:Performed By: #### LIPA, HSTROPN, TSH, CMP #### [facility] [address] [address] [address] Juan CampbellT [Catalytic activity/Vol]61 U/LCritically dmga64-95Lkv [facility] HospitalComment on above:Performed By: #### LIPA, HSTROPN, TSH, CMP #### [facility] [address] [place] [address] Dr. Juan Hwangon gap [Moles/Vol]16.5 mmol/LNormalThe [facility] Comment on above:Performed By: #### LIPA, HSTROPN, TSH, CMP #### [facility] [address] [place] [address] Dr. Juan ZamarripaAST [Catalytic activity/Vol]24 U/TZjmahi63-68Fyy [facility] HospitalComment on above:Performed By: #### LIPA, HSTROPN, TSH, CMP #### [facility] [address] [place] [address] Dr. Juan ZamarripaBilirubin [Mass/Vol]0.7 mg/dLNormal0.2-1.0The [facility] Comment on above:Performed By: #### LIPA, HSTROPN, TSH, CMP #### [facility] [address] [place] [address] Dr. Juan ZamarripaCalcium [Mass/Vol]9.1 mg/dLNormal8.5-10.1[facility] Comment on above:Performed By: #### LIPA, HSTROPN, TSH, CMP #### [facility] [address] [place] [address] Dr. Juan ZamarripaChloride [Moles/Vol]103 mmol/MTdiswj91-575Euw [facility] Comment on above:Performed By: #### LIPA, HSTROPN, TSH, CMP #### [facility] [address] [address] [address] Juan ZamarripaCO2 [Moles/Vol]25.4 mmol/RUdcwoh94.0-32.0The [facility] Comment on above:Performed By: #### LIPA, HSTROPN, TSH, CMP #### [facility] [address] [address] [address] Juan ZamarripaCreatinine [Mass/Vol]0.87 mg/dLNormal0.55-1.02The [facility] HospitalComment on above:Performed By: #### LIPA, HSTROPN, TSH, CMP #### [facility] [address] [place] [address] Dr. Martinez ChangEGFR-AF EGYPTIAN>60Normal>=60The [facility] HospitalComment on above:Performed By: #### LIPA, HSTROPN, TSH, CMP #### [facility] [address] [place] [address] Dr. Juan HickmanGFR-NON AF EGYPTIAN>60Normal>=60The [facility] HospitalComment on above:Performed By: #### LIPA, HSTROPN, TSH, CMP #### [facility] [address] [address] [address] Juan ZamarripaGlobulin (S) [Mass/Vol]3.9 g/dLNormalThe [facility] HospitalComment on above:Performed By: #### LIPA, HSTROPN, TSH, CMP #### [facility] [address] [address] [address] Juan ZamarripaGlucose [Mass/Vol]157 mg/dLCritically cyxy17-003Ngs [facility] HospitalComment on above:Performed By: #### LIPA, HSTROPN, TSH, CMP #### [facility] [address] [place] [address] Dr. Juan ZamarripaPotassium [Moles/Vol]4.4 mmol/LNormal3.5-5.1[facility] Comment on above:Performed By: #### LIPA, HSTROPN, TSH, CMP #### [facility] [address] [place] [address] Dr. Juan ZamarripaProtein [Mass/Vol]8.0 g/dLNormal6.4-8.2[facility] Comment on above:Performed By: #### LIPA, HSTROPN, TSH, CMP #### [facility] [address] [place] [address] Dr. Juan Mendezdium [Moles/Vol]141 mmol/RBaqnod729-028FphOhiohealth Pick[facility]ton [facility] Comment on above:Performed By: #### LIPA, HSTROPN, TSH, CMP #### [facility] [address] [place] [address] Dr. Juan Joseph nitrogen [Mass/Vol]21.0 mg/dLCritically high7.0-18.0[facility] HospitalComment on above:Performed By: #### LIPA, HSTROPN, TSH, CMP #### [facility] [address] [place] [address] Dr. Juan Joseph nitrogen/Creatinine [Mass ratio]24.1 mg/mgNoKindred Hospital DaytonComment on above:Performed By: #### LIPA, HSTROPN, TSH, CMP #### [facility] [address] [place] [address] Dr. Juan Goldsmith 28-06-8825LZB7.503 uIU/mLNormal0.358-3.740[facility] HospitalComment on above:Performed By: #### LIPA, HSTROPN, TSH, CMP #### [facility] [address] [place] [address] Dr. Juan PATELParkwood HospitalComment on above: Result Comment: <0.34 UIU/ml HYPERTHYROID 0.34-5.60 UIU/ml EUTHYROID >5.60 UIU/ml HYPOTHYROIDPerformed By: #### LIPA, HSTROPN, TSH, CMP #### [facility] [address] [place] [address] Dr. Juan Jaimes [id number] (NCCAP) IVELISSE GEE ([id number]) 1950 F Date Time Provider Department 08/11/21 MEHRDAD AGUILAR During your visit today, we recorded the following information about you: Marta Alisa Pss 08/11/2021 12:14 PM Signed Called patient [...] (None) Encounter Status:Closed by MARTA GARCES on 08/11/21NoOhioHealth Van Wert HospitalALPHA-1-ANTITRYPSIN QUANTITATIONon 97-02-6313XIBLG-1-ANTITRYPSIN (AAT) PHENOTYPESEE NOTENormalQuest DiagnosticsComment on above:Order Comment: FASTING:YES FASTING: YESResult Comment: THIS PATIENT'S ZMRNQ-2-MHITLAORKIS PHENOTYPE IS PI*MM. 90% of normal individuals have the MM phenotype, with normal quantitative AAT levels. Many phenotypic patterns have been described, including deficiency states with F, S, Z, or other alleles. As a general estimation, compared to M allele of 100% of normal H-6-Qbiqeqdnxtb protein, the S allele produces approximately 60% and the Z allele 20%. For example, an MS phenotype would have about 80% of normal Q-2-Ecyvyilvczc protein level, a 50% contribution from the M allele and 30% from the S allele. A ZZ phenotype would have about 20% of normal levels, a 10% contribution from each Z gene. The F allele has normal W-3-Dzsoljknytu levels, but the kinetics of elastase inhibition [...] to avoid confusion with the deficient MZ phenotype.Performed By: #### 263, 457, 39895, 7573, 508, 498, 326, 8472, 496, 249, 21285, 259 #### [facility] [address], [address] [place] [address] Spectroscopist: Kush Hines MD #### [id number] #### [facility], [address] [place] [address] Spectroscopist: Susan Sheikh MD,PhD,JAY #### 41972, 79301 #### [facility]/[place] [address] [facility] [place], [place] Spectroscopist: Parrish Gloria M.D.,LcWSVLHX-3-PPZTWPONPQE QN170 mg/dLNormal 83-199Quest DiagnosticsComment on above:Order Comment: FASTING:YES FASTING: YESPerformed By: #### 263, 457, 34859, 7573, 508, 498, 326, 8472, 496, 249, 00161, 259 #### [facility] [address] [facility], [address] [place] [address] Spectroscopist: Kush Hines MD #### [id number] #### [facility]/[place] [address] [place] [address] Spectroscopist: Susan Sheikh MD,PhD,JAY #### 71754, 59844 #### [facility]/[place] [address] [facility] [place], [place] Spectroscopist: Parrish Gloria M.D.,PhDANA SCREEN, IFA, W/REFL TITER AND PATTERNon 55-58-3194CTV SCREEN, IFANegativeNormalNEGATIVEQuest Diagnostics Comment on above:Result Comment: TL IFA is a first line [...] AC-0: Negative International Consensus on TL Patterns (https://doi.org/10.1515/ptbn-7976-0975) For additional information, please refer to http://education.[employer].SmartEquip/faq/QFY667 (This link is being provided for informational/ educational purposes only.)Performed By: #### 263, 457, 57987, 7573, 508, 498, 326, 8472, 496, 249, 32782, 259 #### [facility] [place] [address] [facility], [address] [place] [address] Spectroscopist: Kush Hines MD #### 75437 #### [facility], [address] [place] [address] Spectroscopist: Susan Sheikh MD,PhD,JAY #### 60401, 79276 #### [facility]/[place] [address] [facility] [place] Spectroscopist: Parrish Gloria M.D.,PhDST. LUKE[facility] DISEASE COMPREHENSIVE PANEL 71-50-8683YYQOYDYCWHZGUK A185 mg/pJMcstnx75-185Fkszy DiagnosticsComment on above:Performed By: #### 263, 457, 57586, 7573, 508, 498, 326, 8472, 496, 249, 81531, 259 #### [facility] [address], [address] [place] [address] Spectroscopist: Kush Hines MD #### [id number] #### [facility], [address] [place] [address] Spectroscopist: Susan Sheikh MD,PhD,JAY #### 10655, 52293 #### [facility] [address] [facility] [address] [place] Spectroscopist: Parrish Gloria M.D.,PhDINTERPRETATIONsee noteNormalQuest DiagnosticsComment on above:Result Comment: No serological evidence of celiac disease. tTG IgA may normalize in individuals with celiac disease who maintain a gluten-free diet. Consider HLA DQ2 and DQ8 testing to rule out celiac disease. Celiac disease is extremely rare in the absence of DQ2 or DQ8.Performed By: #### 263, 457, 92514, 7573, 508, 498, 326, 8472, 496, 249, 69754, 259 #### [place] [address] Spectroscopist: Kush Hines MD #### 34678 #### [facility], [address] [place] [address] Spectroscopist: Susan Sheikh MD,PhD,JAY #### 76860, 85634 #### [facility]/[place] [address] [facility] [place] Spectroscopist: Parrish Gloria M.D.,PhDTISSUE TRANSGLUTAMINASE AB, IGA2 U/mL Normal<4Quest DiagnosticsComment on above:Result Comment: Value Interpretation <4 U/mL: No Antibody Detected >or=4 U/mL: Antibody DetectedPerformed By: #### 263, 457, 42721, 7573, 508, 498, 326, 8472, 496, 249, 93763, 259 #### [facility] [place] [address] Spectroscopist: Kush Hines MD #### 27312 #### [facility]/[place] [address] Spectroscopist: Susan Sheikh MD,PhD,JAY #### 38344, 59356 #### [facility] [address] [facility] [place] Spectroscopist: Parrish Gloria M.D.,PhDCERULOPLASMINon 10-13-2020 PQBKGARICVCTZ62 mg/pPXmggry64-46Bfoum DiagnosticsComment on above:Performed By: #### 263, 457, 08929, 7573, 508, 498, 326, 8472, 496, 249, 91887, 259 #### [facility] [address], [address] [place], [place] [address] Spectroscopist: Kush Hines MD #### 29839 #### [facility] [address] [place] [address] Spectroscopist: Susan Sheikh MD,PhD,JAY #### 64909, 62731 #### [facility] [address] [facility] [place] Spectroscopist: Parrish Gloria M.D.,PhDFERRITINon 28-57-4467Iieoymmq [Mass/Vol]70 ng/wOOjopvz17-758Mftbj DiagnosticsComment on above:Performed By: #### 263, 457, 32872, 7573, 508, 498, 326, 8472, 496, 249, 34756, 259 #### [facility] [address], [address] [place] [address] Spectroscopist: Kush Hines MD #### 40598 #### [facility], [address] [place] [address] Spectroscopist: Susan Sheikh MD,PhD,JAY #### 29310, 05290 #### [facility] [address] [facility] [place] Spectroscopist: Parrish Gloria M.D.,PhDHEMOGLOBIN A1con 08-22-8869NNBQMZZGEW A1c6.9 % of total HgbHigh<5.7Quest DiagnosticsComment on above:Result Comment: For someone without known diabetes, a [...] hemoglobin A1c for diagnosis of diabetes for children.Performed By: #### 263, 457, 16842, 7573, 508, 498, 326, 8472, 496, 249, 88465, 259 #### [facility] [place] [address] [facility], [address] [place] [address] Spectroscopist: Kush Hines MD #### 50249 #### [facility], [address] [place] [address] Spectroscopist: Susan Sheikh MD,PhD,JAY #### 44334, 71415 #### [facility]/[place] [address] [facility] [address] [place] Spectroscopist: Parrish Gloria M.D.,PhDHEPATITIS A AB, TOTALon 10-13-2020 HEPATITIS A AB, TOTALReactiveAbnormalNON-REACTIVEQuest DiagnosticsComment on above:Result Comment: For additional information, please refer to http://education.[employer].SmartEquip/faq/RIN341 (This link is being provided for informational/ educational purposes only.)Performed By: #### 263, 457, 92155, 7573, 508, 498, 326, 8472, 496, 249, 06989, 259 #### [facility] [address], [address] [place] [address] Spectroscopist: Kush Hines MD #### 76024 #### [facility], [address] [place] [address] Spectroscopist: Susan Sheikh MD,PhD,JAY #### 49537, 49468 #### [facility]/[place] [address] [facility] [address] [place] Spectroscopist: Parrish Gloria M.D.,PhDHEPATITIS B CORE AB TOTAL W/REFL IGMon 72-96-3773APOYAYDIZ B CORE AB HPRHBHuc-DcaxowgpIndpphRUD-EZLYSOLVAdwfn DiagnosticsComment on above:Performed By: #### 263, 457, 67629, 7573, 508, 498, 326, 8472, 496, 249, 13366, 259 #### [facility] [address], [address] [place] [address] Spectroscopist: Kush Hines MD #### 89853 #### [facility], [address] [place] [address] Spectroscopist: Susan Sheikh MD,PhD,JAY #### 61674, 98850 #### [facility]/[address] [place], [place] Spectroscopist: Parrish Gloria M.D.,PhDHEPATITIS B SURFACE ANTIBODY QLon 53-42-9209NSTFWYLOP B SURFACE ANTIBODY FCJzf-LcmdzwpxPowgiwYTH-UWREFVIHMuzhu DiagnosticsComment on above:Performed By: #### 263, 457, 20527, 7573, 508, 498, 326, 8472, 496, 249, 85182, 259 #### [facility] [place] [address] Spectroscopist: Kush Hines MD #### 47058 #### [facility], [address] [place] [address] Spectroscopist: Susan Sheikh MD,PhD,JAY #### 19179, 58368 #### [facility]/[place] [address] [facility] [address] [place] Spectroscopist: Parrish Gloria M.D.,PhDHEPATITIS B SURFACE ANTIGEN W/REFL CONFIRMon 52-43-9723NENWKKBQI B SURFACE TDTAZYISen-DmsqevtcWiovokTPE-MUOMVENU Quest DiagnosticsComment on above:Performed By: #### 263, 457, 14296, 7573, 508, 498, 326, 8472, 496, 249, 72137, 259 #### [facility] [address] [place], [place] [address] , [address] [place] [address] Spectroscopist: Kush Hines MD #### 43145 #### [facility] [address] [place] [address] Spectroscopist: Susan Sheikh MD,PhD,JAY #### 03990, 46238 #### [facility]/[place] [address] [facility] [address] [place] Spectroscopist: Parrish Gloria M.D.,PhDHEPATITIS C AB W/REFL TO HCV RNA, N, PCRon 60-84-8584UDTTFVCKP C JKAOFXTQDaf-LkqvqljwUtvgjrJWW-HBUHFPYNAemhf DiagnosticsComment on above:Performed By: #### 263, 457, 57466, 7573, 508, 498, 326, 8472, 496, 249, 37120, 259 #### [facility] [address] [facility], [address] [place] [address] Spectroscopist: Kush Hines MD #### 76952 #### [facility] [address] [place] [address] Spectroscopist: Susan Sheikh MD,PhD,JAY #### 17050, 49901 #### [facility] [address] [facility] [address] [place] Spectroscopist: Parrish Gloria M.D.,PhDINDEX0.02Normal<1.00[facility] Comment on above:Result Comment: HCV antibody was non-reactive. There is no laboratory evidence of HCV infection. In most cases, no further action is required. However, if recent HCV exposure is suspected, a test for HCV RNA (test code 07649) is suggested. For additional information please refer to http://education.[employer]/faq/VZO61w4 (This link is being provided for informational/ educational purposes only.)Performed By: #### 263, 457, 48376, 7573, 508, 498, 326, 8472, 496, 249, 57110, 259 #### [facility] [place] [address] [place] [address] Spectroscopist: Kush Hines MD #### 06832 #### [facility], [address] [place] [address] Spectroscopist: Susan Sheikh MD,PhD,JAY #### 94339, 66413 #### [facility]/[place] [address] [facility] [place] Spectroscopist: Parrish Gloria M.D.,PhDIRON AND TOTAL IRON BINDING CAPACITYon 10-13-2020% TJBCTUKQOB77 % (calc)Tvwifx99-50Ptdha DiagnosticsComment on above: Performed By: #### 263, 457, 08079, 7573, 508, 498, 326, 8472, 496, 249, 94229, 259 #### [facility] [address] [place] [address] Spectroscopist: Kush Hines MD #### 53501 #### [facility], [address] [place] [address] Spectroscopist: Susan Sheikh MD,PhD,JAY #### 87634, 07125 #### [facility] [address] [facility] [place] Spectroscopist: Parrish Gloria M.D.,PhDIRON BINDING GAKTBWNR503 mcg/dL (calc) Rtzisf556-668Iclvy DiagnosticsComment on above:Performed By: #### 263, 457, 63389, 7573, 508, 498, 326, 8472, 496, 249, 23881, 259 #### [facility] [place] [address], [address] [place] [address] Spectroscopist: Kush Hines MD #### 18873 #### [facility], [address] [place] [address] Spectroscopist: Susan Sheikh MD,PhD,JAY #### 56165, 14692 #### [facility] [address] [facility] [place] Spectroscopist: Parrish Gloria M.D.,PhDIRON, TOTAL70 mcg/wSCznshi07-906Onwgo DiagnosticsComment on above:Performed By: #### 263, 457, 89935, 7573, 508, 498, 326, 8472, 496, 249, 48585, 259 #### [facility] [address] [facility], [address] [place] [address] Spectroscopist: Kush Hines MD #### 35498 #### [facility], [address] [place] [address] Spectroscopist: Susan Sheikh MD,PhD,JAY #### 64826, 75781 #### [facility] [address] [facility] [place] Spectroscopist: Parrish Gloria M.D.,PhDLIVER KIDNEY MICROSOME (LKM-1) AB (IGG)on 84-29-2063PMZCZ KIDNEY MICROSOMAL (LKM-1) AB (IGG)<=20.0Normal<=20.0 [facility] DiagnosticsComment on above:Result Comment: Reference Range: <=20.0 Negative 20.1-24.9 Equivocal [...] approximately 10% of patients with hepatitis C infection.Performed By: #### 263, 457, 47878, 7573, 508, 498, 326, 8472, 496, 249, 57753, 259 #### [facility] [address], [address] [place] [address] Spectroscopist: Kush Hines MD #### 78570 #### [facility], [address] [place] [address] Spectroscopist: Susan Sheikh MD,PhD,JAY #### 69876, 40381 #### [facility]/[place] [address] [facility] [place] Spectroscopist: Parrish Gloria M.D.,PhDMITOCHONDRIAL ANTIBODY W/REFL TITERon 02-42-7932SMVGZALJKBGDP AB SCREENNegativeNormalNEGATIVEQuest DiagnosticsComment on above:Performed By: #### 263, 457, 10718, 7573, 508, 498, 326, 8472, 496, 249, 51510, 259 #### [facility] [place] [address] Spectroscopist: Kush Hines MD #### 64333 #### [facility], [address] [place] [address] Spectroscopist: Susan Sheikh MD,PhD,JAY #### 02922, 99177 #### [facility] [address] [facility] [place] Spectroscopist: Parrish Gloria M.D.,PhDSMOOTH MUSCLE AB W/REFL TITERon 33-33-7712PMWFBB MUSCLE AB SCREENNegativeNormalNEGATIVEQuest DiagnosticsComment on above:Performed By: #### 263, 457, 88463, 7573, 508, 498, 326, 8472, 496, 249, 37375, 259 #### [facility] [address], [address] [place] [address] Spectroscopist: Kush Hines MD #### 47480 #### [facility], [address] [place] [address] Spectroscopist: Susan Sheikh MD,PhD,JAY #### 33630, 21124 #### [facility]/[address] [place] Spectroscopist: Parrish Gloria M.D.,PhDTSH W/REFLEX TO FT4on 56-59-3396IOJ W/REFLEX TO FT43.10 mIU/LNormal0.40-4.50Quest DiagnosticsComment on above: Performed By: #### 263, 457, 51205, 7573, 508, 498, 326, 8472, 496, 249, 05223, 259 #### [facility] [address], [address] [place] [address] Spectroscopist: Kush Hines MD #### 62984 #### [facility] [address] [place] [address] Spectroscopist: Suasn Sheikh MD,PhD,JAY #### 08850, 08509 #### [facility]/[place] [address] [facility] [address] [place] Spectroscopist: Parrish Gloria M.D.,PhDCNOVSPon 41-98-5305JBRVLXJpips ([place]) Office ([place]) IVELISSE GEE ([id number]) 1950 F Date Time Provider Department 09/30/20 1:30 PM MEHRDAD AGUILAR During your visit today, we recorded the following information about you: Temperature Pulse Respiration Blood pressure 97.2 degrees 71/minute 18/minute 121/54 Weight Height 73.6 kg 1.57 m Mehrdad Aguilar MD 10/02/2020 5:36 PM Signed PATIENT NAME: Ivelisse Gee DATE: 09/30/2020 PRIMARY CARE PHYSICIAN: Carmen Conley MD OTHER PHYSICIANS: Dr. Wahl (PCP [place], [place]), Dr. Magdaleno Castillo ([facility]) Portions of this encounter note have [...] PHYSICAL EXAM: BP 121/ (more content not included)...NormalMarion HospitalAlbumin/Creat Ratioon 56-72-5574Sntrwur Urine Random<12.0Normal [facility] on above:Performed By: #### CMP, INSLAB, LIPB, CPEPT, GADCAB, B12, VITD, UACR ####[place] [address] [place] [address], [place] [phone]/Creat RatioNot calculatedNormal<30 [facility] on above:Performed By: #### CMP, INSLAB, LIPB, CPEPT, GADCAB, B12, VITD, UACR ####[place] [address] [place], [place] [phone],Urine,Ran53.8 mg/qWBejzqm27-545 [facility] on above:Performed By: #### CMP, INSLAB, LIPB, CPEPT, GADCAB, B12, VITD, UACR ####[facility], [place] [phone]-Caolhswjz 84-11-7348F-Peptide1.8 ng/mL Normal0.8-3.9CGalion Hospital on above:Performed By: #### CMP, INSLAB, LIPB, CPEPT, GADCAB, B12, VITD, UACR ####[facility]atori [address], [place] [phone] and Differentialon 54-00-7561Eed Baso0.03 k/uLNormal<0.11CCleveland Clinic Akron GeneralAbs Mono0.33 k/uLNormal<0.87[facility] Neut4.29 k/uLNormal1.45-7.50 Marion HospitalAbsolute nRBC<0.01Normal<0.01Marion HospitalBasophils/100 WBC (Bld)0.4 %NormalMarion HospitalDTYPEAuto DiffNormalClevelOhioHealthvelandEosinophils (Bld) [#/Vol]0.12 10*3/uLNormal <0.46Marion HospitalEosinophils/100 WBC (Bld)1.5 %NormalMarion HospitalErythrocyte distribution width (RBC) [Ratio]13.0 %Normal 11.5-15.0Marion HospitalHematocrit (Bld) [Volume fraction]37.3 % Bmwbny24.0-46.0Marion HospitalHemoglobin (Bld) [Mass/Vol]13.0 g/dL Rnweff53.5-15.5CTwin City Hospital ClevelandLymphocytes (Bld) [#/Vol]3.40 10*3/uL Normal1.00-4.00Marion HospitalLymphocytes/100 WBC (Bld)41.6 %Normal Marion HospitalMCH31.9 xIOyymah90.0-34.0[facility] MCHC (RBC) [Mass/Vol]34.9 g/yRIosuhp82.5-36.0Marion HospitalMCV (RBC) [Entitic vol]91.4 hICaiwdg32.0-100.0Marion HospitalMonocytes/100 WBC (Bld)4.0 %NormalMarion HospitalNeutrophils/100 WBC (Bld)52.5 %Normal Marion HospitalNRBCs0.0 /100 TFZEgnbgp1IfysmniqlMarion Hospital Platelet mean volume (Bld) [Entitic vol]9.6 fLNormal9.0-12.7CCleveland Clinic Akron GeneralPlatelets (Bld) [#/Vol]164 10*3/dNFalkmg344-632Icebsaqjo Clinic Cletwin city hospitalRBC (Bld) [#/Vol]4.08 10*6/uLNormal3.90-5.20[facility] WBC (Bld) [#/Vol]8.18 10*3/uLNormal3.70-11.00[facility] West Campusp Metabolic Panelon 24-32-3344Hwqmoxz [Mass/Vol]4.4 g/dLNormal3.9-4.9CGalion Hospital on above:Performed By: #### CMP, INSLAB, LIPB, CPEPT, GADCAB, B12, VITD, UACR ####[facility], [place] [phone] [Catalytic activity/Vol]88 U/LNormal 34-123[facility] on above:Performed By: #### CMP, INSLAB, LIPB, CPEPT, GADCAB, B12, VITD, UACR ####[place] [address] [address], [place] [phone] [Catalytic activity/Vol]63 U/L High7-38[facility] on above:Performed By: #### CMP, INSLAB, LIPB, CPEPT, GADCAB, B12, VITD, UACR ####[facility] [address], [place] [phone] gap [Moles/Vol]12 mmol/L Normal9-18[facility] on above:Performed By: #### CMP, INSLAB, LIPB, CPEPT, GADCAB, B12, VITD, UACR ####[facility] [address] [place], [place] [phone] [Catalytic activity/Vol]42 U/IPiih02-04HazujaovnWilson Health on above:Performed By: #### CMP, INSLAB, LIPB, CPEPT, GADCAB, B12, VITD, UACR ####[facility] [address] [place], [place] [phone] [Mass/Vol]0.6 mg/dL Normal0.2-1.3CGalion Hospital on above:Performed By: #### CMP, INSLAB, LIPB, CPEPT, GADCAB, B12, VITD, UACR ####[facility] [address], [place] [phone] [Mass/Vol]9.2 mg/dL Normal8.5-10.2CGalion Hospital on above:Performed By: #### CMP, INSLAB, LIPB, CPEPT, GADCAB, B12, VITD, UACR ####[facility] [address], [place] [phone] [Moles/Vol]104 mmol/L Xkmfsq39-925JjcbmshsgWilson Health on above:Performed By: #### CMP, INSLAB, LIPB, CPEPT, GADCAB, B12, VITD, UACR ####[facility] [address], [place] [phone] [Mass/Vol]0.68 mg/dLNormal0.58-0.96[facility] on above:Performed By: #### CMP, INSLAB, LIPB, CPEPT, GADCAB, B12, VITD, UACR ####[facility] [address], [place] [phone] [Mass/Vol] 152 mg/oMXezw41-76QizgjbafjWilson Health on above:Result Comment: The [place] Diabetes Association (ADA) provides guidance for cutoff [...] Standards of Medical Care in Diabetes 2016, [place] [employer]. Diabetes Care. 2016.39(Suppl 1).Performed By: #### CMP, INSLAB, LIPB, CPEPT, GADCAB, B12, VITD, UACR ####[facility] [address], [place] [phone] [Moles/Vol]4.3 mmol/LNormal 3.7-5.1CGalion Hospital on above:Performed By: #### CMP, INSLAB, LIPB, CPEPT, GADCAB, B12, VITD, UACR ####[facility] [address] [place], [place] [phone] [Moles/Vol]140 mmol/L Adupyn160-374TgfmlpsziWilson Health on above:Performed By: #### CMP, INSLAB, LIPB, CPEPT, GADCAB, B12, VITD, UACR ####[facility] [address] [place], [place] [phone] nitrogen [Mass/Vol]14 mg/dLNormal7-21[facility] on above:Performed By: #### CMP, INSLAB, LIPB, CPEPT, GADCAB, B12, VITD, UACR ####[place] [address] [address], [place] [phone] [Mass/Vol] 4.5 g/dLNormal3.9-4.9CCleveland Clinic Akron GeneralALP [Catalytic activity/Vol]83 U/IOifnko11-001Qcdjiokov Clinic Cletwin city hospitalALT [Catalytic activity/Vol]58 U/LHigh 7-38[facility] Cletwin city hospitalAnion gap [Moles/Vol]11 mmol/LNormal9-18Marion HospitalAST [Catalytic activity/Vol]34 U/JDnkjtn32-81Smekoxhgg Clinic Cletwin city hospitalBilirubin [Mass/Vol]0.7 mg/dLNormal0.2-1.3CCleveland Clinic [facility] General Calcium [Mass/Vol]9.5 mg/dLNormal8.5-10.2CTwin City Hospital Cletwin city hospitalChloride [Moles/Vol]103 mmol/OQsjsrp74-636EfprohziaMarion HospitalCO2 [Moles/Vol]24 mmol/VZsxhur17-93Qoeubsoba Clinic ClevelandComment on above:Performed By: #### CMP, INSLAB, LIPB, CPEPT, GADCAB, B12, VITD, UACR ####[facility] [address] [place], [place] [phone] [Mass/Vol]0.67 mg/dLNormal0.58-0.96Marion HospitaleG- Amer. >60NormalCGalion Hospital on above:Performed By: #### CMP, INSLAB, LIPB, CPEPT, GADCAB, B12, VITD, UACR ####[facility] Laboratori [address] [place], [place] [phone]-Myv Other Races>60Normal [facility] on above:Result Comment: eGFR (Estimated GFR) Units of measure: [...] the eGFR may not accurately reflect actual GFR.Performed By: #### CMP, INSLAB, LIPB, CPEPT, GADCAB, B12, VITD, UACR ####[facility] [address] [place], [place] [phone] [Mass/Vol]161 mg/wOTtjg94-52 [facility] on above:Result Comment: The [place] Diabetes Association (ADA) provides guidance for cutoff [...] Standards of Medical Care in Diabetes 2016, [place] Diabetes Association. Diabetes Care. 2016.39(Suppl 1).Potassium [Moles/Vol]4.1 mmol/L Normal3.7-5.1CCleveland Clinic Akron GeneralProtein [Mass/Vol]7.2 g/dLNormal6.3-8.0 [facility] on above:Performed By: #### CMP, INSLAB, LIPB, CPEPT, GADCAB, B12, VITD, UACR ####[facility], [place] [phone] [Moles/Vol]138 mmol/RRjvucq599-139 Marion HospitalUrea nitrogen [Mass/Vol]13 mg/dLNormal7-21Marion HospitalGlutamic Ac Decar Abon 88-14-8769Qjhalt Ac Dec Ab QlNegative NormalNegativeWilson Health on above:Performed By: #### CMP, INSLAB, LIPB, CPEPT, GADCAB, B12, VITD, UACR ####[facility] Laboratori [address], [place] [phone] Ac Decar Ab<5.0Normal <5.1CGalion Hospital on above:Performed By: #### CMP, INSLAB, LIPB, CPEPT, GADCAB, B12, VITD, UACR ####[facility] [address], [place] [phone] Autoantibodyon 09-27-2020 Insulin Ab QlNegativeNormalNegativeWilson Health on above: Performed By: #### CMP, INSLAB, LIPB, CPEPT, GADCAB, B12, VITD, UACR ####[facility] Pdgexupbveaq[address] AveCJemison, [place] [phone] Antibody<0.4Normal<0.4CGalion Hospital on above:Performed By: #### CMP, INSLAB, LIPB, CPEPT, GADCAB, B12, VITD, UACR ####[place] [address] [place], [place] [phone] Panel, [facility] Of Livingon 64-62-7703Akwkteviywe [Mass/Vol]110 mg/dL Normal<200[facility] on above:Result Comment: <200 mg/dL, Desirable 200-239 mg/dL, Borderline high >239 mg/dL, HighPerformed By: #### CMP, INSLAB, LIPB, CPEPT, GADCAB, B12, VITD, UACR ####[address] [phone] in HDL [Mass/Vol]37 mg/dLLow>39[facility] on above:Result Comment: 40-59 mg/dL, Acceptable >59 mg/dL, High: Negative risk factor for coronary heart disease <40 mg/dL, Low: Positive risk factor for coronary heart diseasePerformed By: #### CMP, INSLAB, LIPB, CPEPT, GADCAB, B12, VITD, UACR ####[address] [phone] in LDL [Mass/Vol]49 mg/dLNormal<100[facility] on above:Result Comment: <100 mg/dL, Optimal 100-129 mg/dL, Near optimal/above optimal 130-159 mg/dL, Borderline high 160-189 mg/dL, High >189 mg/dL, Very high Secondary prevention optimal LDL Cholesterol levels are recommended to be < 70 mg/dLPerformed By: #### CMP, INSLAB, LIPB, CPEPT, GADCAB, B12, VITD, UACR ####[place] [address] [place], [place] [phone] Time12 hrsNormalCGalion Hospital on above:Performed By: #### CMP, INSLAB, LIPB, CPEPT, GADCAB, B12, VITD, UACR ####[place] [address] [place], [place] [phone]:HDL Ratio1.32Normal<2.54[facility] on above:Result Comment: Reference: 1. National Cholesterol Education Program ATP III Guideline At-A-Glance Quick Desk Reference: National Heart, Lung, and Blood Carmen. National Institutes of Health. 2001: NIH Publication No. 01-3305. 2. An International Atherosclerosis Society position paper: global recommendations for the management of dyslipidemia: executive summary, Atherosclerosis. 2014: 232(2):410-413.Performed By: #### CMP, INSLAB, LIPB, CPEPT, GADCAB, B12, VITD, UACR ####[address] [phone] HDL Nykriyaftgp07 mg/dLNormal<130 [facility] on above:Result Comment: <130 mg/dL, Optimal 130-159 mg/dL, Near optimal/above optimal 160-189 mg/dL, Borderline high 190-219 mg/dL, High >219 mg/dL, Very high Secondary prevention optimal non HDL Cholesterol levels are recommended to be < 100 mg/dLPerformed By: #### CMP, INSLAB, LIPB, CPEPT, GADCAB, B12, VITD, UACR ####[place] [address] [place], [place] [phone]:HDL Ratio2.97Normal<5.10[facility] on above:Performed By: #### CMP, INSLAB, LIPB, CPEPT, GADCAB, B12, VITD, UACR ####[place] [address] [place], [place] [phone] [Mass/Vol]121 mg/dLNormal<150[facility] on above:Result Comment: <150 mg/dL, Normal 150-199 mg/dL, Borderline high 200-499 mg/dL, High >499 mg/dL, Very highPerformed By: #### CMP, INSLAB, LIPB, CPEPT, GADCAB, B12, VITD, UACR ####[facility], [place] [phone] Efiynwerlit38 mg/dLNormal<30[facility] Comment on above:Performed By: #### CMP, INSLAB, LIPB, CPEPT, GADCAB, B12, VITD, UACR ####[place] [address] [place], [place] [phone] B12on 43-79-3150Ebmygggpw (Vitamin B12) [Mass/Vol]431 pg/fZPimvvn061-7218Unxuetxwk Clinic ClevelandComment on above:Performed By: #### CMP, INSLAB, LIPB, CPEPT, GADCAB, B12, VITD, UACR ####[place] [address] [place], [place] [phone] D 25 Hydroxy on 45-47-2270Pojunxz D 25 Sjtfseb32.2 ng/bBKkknzc44.0-80.0Marion HospitalComment on above:Result Comment: Classification of 25 [place] Vitamin D status: Insufficiency/Moderate Deficiency: < or = 30 ng/mL Sufficiency/Optimal Levels: 31 to 80 ng/mL Toxicity: > 100 ng/mL Test performed by chemiluminescent immunoassay.Performed By: #### CMP, INSLAB, LIPB, CPEPT, GADCAB, B12, VITD, UACR ####[facility] [place], [place] [phone] 71-82-7329ACRTYfaozmknr (HEMASA) IVELISSE GEE ([id number]) 1950 F Date Time Provider Department 09/22/20 [...] Date Reviewed: 09/22/2020 Reviewed by: Mac Perez APRN.BUSINESS OFFICE MANAGER - Fully Assessed Reason for Visit: Lab Orders [1688] Primary Visit Diagnosis:Thrombocytopenia (HCC) [D69.6] Order(s):CBC + DIFF [SQCBCDIF] Order #: [id number] STANDING COMP METABOLIC PANEL [SQCMP] Order #: [id number] STANDING Prescriptions as of 09/22/2020 Sig: METFORMIN [...] (None) Encounter Status:Closed by MAC PEREZ on 09/22/20[facility] WO/W IVCONon 17-24-1553UCM ABDOMEN WO/W IVCON* * *Final Report* * * DATE OF EXAM: Sep 21 2020 11:45AM [facility] 0689 - MRI ABDOMEN WO/W IVCON [...] 6 months is recommended to assess the group home stability, progression or resolution of the findings. No enhancing pancreatic mass with special attention to the head of the pancreas. 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 5 mm and 9 mm Bosniak type II hemorrhagic cysts at the midpole of the left kidney. Additional subcentimeter renal cysts. Cholecystectomy with mildly dilatation. No choledocholithiasis. Passenger Car Inspector: SHAHRZAD Transcribe Date/Time: Sep 21 2020 1:58P Dictated by : ANA MARÍA ARAIZA MD This examination was interpreted and the report reviewed and electronically signed by: ANA MARÍA ARAIZA MD on Sep 21 2020 10:19PM EST [id number] State University Wexner Medical CenterCNPNon [id number] (HEMASA) IVELISSE GEE ([id number]) 1950 F Date Time Provider Department 09/01/20 ABHI CLEANING During your visit today, we recorded the following information about you: Abhi Cleaning RN 09/01/2020 9:48 AM Signed BRM: Pt would like call regarding scan results. Please advise. MONICO Louei MD 09/01/2020 12:26 PM Signed I tried [...] Clerical: Please schedule pt for MRI at [facility]. Thank you. BRM: Order pending, please review and sign. MONICO Louie 09/01/2020 2:24 PM Signed Called patient to inform her that she has been scheduled for MRI @ [facility] on 09/07/20 @ 8:30am. LMOV. 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 Encounter Status:Closed by ABHI CLEANING on [facility]/02/20[facility] IV[facility]on 26-48-3915AY ABD/PEL W IVCON* * *Final Report* * * DATE OF EXAM: Aug 30 2020 10:30AM [facility] 0530 - CT ABD/PEL [...] images through the lung bases appear unremarkable. Pail Bailer (topogram) images: No additional findings. IMPRESSION: 1. [...] any questions regarding this interpretation, please call [phone]. If you are unable to reach us at the number above, please feel free to contact [facility] eRadiology at [phone]. [id number] HospitalProtein Electrophor.on 41-93-5622Rbjjlnx [Mass/Vol]4.24 g/dLHigh3.37-4.23[facility] Comment on above:Performed By: #### SEPG ####[facility] [address] [place], [place] [phone] 1 Globulin0.27 gm/dLNormal 0.18-0.31Marion HospitalComhavenwyck hospital on above:Performed By: #### SEPG ####[facility] [address] [place], [place] [phone] 2 Globulin0.82 gm/dLNormal0.52-0.97[facility] on above:Performed By: #### SEPG ####[address] [phone] Globulin1.11 gm/dLNormal0.84-1.36 [facility] on above:Performed By: #### SEPG ####[place] [phone] Globulin1.27 gm/dLNormal0.70-1.44[facility] on above: Performed By: #### SEPG ####[address] [phone] COMMENTNormalCGalion Hospital on above:Result Comment: No definitive M protein is identified on protein electrophoresis.Performed By: #### SEPG ####[address] [phone] Protein LocationN/ANormalCGalion Hospital on above:Performed By: #### SEPG ####[address] [phone] Shmuel Concentratn0.00 gm/dLNormal0.00[facility] on above:Performed By: #### SEPG ####[place] [phone] [Mass/Vol] 7.7 g/dLNormal6.3-8.0[facility] on above:Performed By: #### SEPG ####[address] [phone] Staff ReviewReviewed by Audelia Cabrera MD ([id number])Normal [facility] on above:Performed By: #### SEPG ####[address] [phone] [id number] (NCCAP) IVELISSE GEE ([id number]) 1950 F Date Time Provider Department 08/23/20 MEHRDAD AGUILAR During your visit today, we recorded the following information about you: Adele Delong 08/23/2020 9:45 AM Signed Marta Cuellar Pss MP ? 9:12 AM Note lvm returning GI's call to call back regarding patient to schedule patient for this referral. August 19, 2020 ? ? 3:53 PM Lorri Keyes Sec routed this conversation to [facility] Clerical Pool Lorri Keyes Sec ? 3:53 PM Note Left message at Dr Magdaleno Cuello [facility]. They may ask for me. She needs to be seen for Liver cirrhosis. Please call [phone] to refer this patient if they do not call back to schedule. Tracy Gonzáles [facility] 08/24/2020 10:00 AM Signed Records and referral faxed to [facility]. Marta Cuellar Pss 08/25/2020 1:09 PM [...] (None) Encounter Status:Closed by ADELE DELONG on 09/20/20NoK[facility] TroyPNon [id number] (NCCAP) IVELISSE GEE ([id number]) 1950 F Date Time Provider Department 08/22/20 MEHRDAD AGUILAR During your visit today, we recorded the following information about you: Allergies As of Date: 08/22/2020 Noted Allergy Reaction SULFA (SULFONAMIDE ANTIBIOTICS) 09/05/2016 10 - Anaphylaxis LATEX, NATURAL RUBBER 09/06/2016 16 - Unknown Comments: Only bandaids Date Reviewed: 08/19/2020 Reviewed by: Carlos Brewer MA - Fully Assessed Reason for Visit: Patient Question [0047] Prescriptions as of 08/22/2020 Sig: METFORMIN ER [...] (None) Encounter Status:Closed by MARTA GARCES on 08/22/20NoOhioHealth Van Wert HospitalCNOVSPon 37-52-0823AXDXQVGmthv (SP) Office ([facility]) IVELISSE GEE ([id number]) 1950 F Date Time Provider Department 08/19/20 11:15 AM MEHRDAD AGUILAR During your visit today, we recorded the following information about you: Temperature Pulse Respiration Blood pressure 98.2 degrees 88/minute 16/minute 130/56 Weight Height 74 kg 1.57 m Mehrdad Aguilar MD 08/20/2020 1:40 PM Signed PATIENT NAME: Ivelisse Gee DATE: 08/19/2020 PRIMARY CARE PHYSICIAN: Carmen Conley MD OTHER PHYSICIANS: Dr. Wahl (([place], [place]) HPI: This is a 70 year [...] requiring hospitalization, most recently while residing in [place] in June 2020. During her recent hospitalization labs revealed persistent thrombocytopenia with a platelet count ranging from 80-90,000. The patient is currently referred for evaluation of her abnormal CBC. Since the patient's hospitalization she started otyu-iea-ztihbzh supplements including multivitamin. She has had no [...] or heat intolerance, urinar (more content not included)...NormalCleveland Clinic Children's Hospital for RehabilitationPNon [id number] Telephone (PETSAN) IVELISSE GEE ([id number]) 1950 F Date Time Provider Department 08/19/20 JESSIE ACUÑA (MONICO) PETSA During your visit today, we recorded the following information about you: Jessie Acuña 08/19/2020 12:27 PM Signed Please sign pending CAP CTs w/IVCON for Ivelisse Gee [id number] who was added to the schedule for [...] lymph node [R59.9] Order(s):CT ABD/PEL W IVCON [[id number]] Order #: [id number] FUTURE iv contrast (will be provided with [...] guidelines Encounter Status:Closed by JESSIE ACUÑA on 08/19/20NormalCGlenbeigh Hospital Metabolic Panelon 16-86-3464Svhnroz [Mass/Vol]4.7 g/dLNormal 3.9-4.9CCleveland Clinic Akron GeneralALP [Catalytic activity/Vol]93 U/LPpaomw15-831 [facility] ClevelandALT [Catalytic activity/Vol]56 U/LHigh7-38Marion HospitalAnion gap [Moles/Vol]12 mmol/LNormal9-18Marion HospitalAST [Catalytic activity/Vol]40 U/QWuzv18-97AfoxgeznqMarion Hospital Bilirubin [Mass/Vol]0.9 mg/dLNormal0.2-1.3CCleveland Clinic Akron GeneralCalcium [Mass/Vol]9.8 mg/dLNormal8.5-10.2CCleveland Clinic Akron GeneralChloride [Moles/Vol] 102 mmol/ZCzyuew01-832BmqgepzgrMarion HospitalCO2 [Moles/Vol]22 mmol/LNormal 22-30Marion HospitalCreatinine [Mass/Vol]0.66 mg/dLNormal0.58-0.96 Marion HospitaleGFR- Amer.>60NormalCCleveland Clinic Akron General eGFR-All Other Races>60NormalCMorrow County Hospitalment on above:Result Comment: eGFR (Estimated GFR) Units of measure: [...] the eGFR may not accurately reflect actual GFR.Glucose [Mass/Vol]258 mg/dLHigh 74-99[facility] on above:Result Comment: The [place] Diabetes Association (ADA) provides guidance for cutoff [...] Standards of Medical Care in Diabetes 2016, [place] Diabetes Association. Diabetes Care. 2016.39(Suppl 1).Potassium [Moles/Vol]4.3 mmol/L Normal3.7-5.1CCleveland Clinic Akron GeneralProtein [Mass/Vol]8.0 g/dLNormal6.3-8.0 Marion HospitalSodium [Moles/Vol]136 mmol/YQhzciq917-290ZedmrywntMarion HospitalUrea nitrogen [Mass/Vol]13 mg/dLNormal7-21Marion HospitalFerritinon 07-48-3019Kvwcjtxl [Mass/Vol]184.0 ng/gPLpogpq59.7-205.1 [facility] on above:Performed By: #### FERR, IRON ####[place] [address] 10-396-9156Pzpo and TIBCon 51-43-8963Zgji [Mass/Vol]116 ug/zMMbikae37-120 [facility] on above:Performed By: #### FERR, IRON ####[place] [address] 56-048-6193VNHL972 ug/mERfxcfr060-856WhontyvroWilson Health on above: Performed By: #### FERR, IRON ####[address] [phone] Jxuycjjm81 %Rlrbra87-06VcjfmefjmWilson Health on above:Performed By: #### FERR, IRON ####[address] [phone] 99-87-1085GM646 U/EDftykz502-154OxpbbgldpMarion HospitalMonclnl Protein, Seron 08-19-2020K/L Ratio, Serum1.73Fsexfu4.26-1.65[facility] on above:Performed By: #### BALDEMAR, B12 ####[address] [phone], Free, Serum28.3 mg/LHigh 3.30-19.40[facility] on above:Result Comment: Test performed by an immunoturbidimetric assay on Optilite instrument from [facility] ite. Immunoglobulin free light chain assay results should be interpreted in conjunction with other tests and in correlation with clinical picture.Performed By: #### BALDEMAR B12 ####[address] [phone], Free, Serum19.8 mg/LNormal5.7-26.3CGalion Hospital on above:Result Comment: Test performed by an immunoturbidimetric assay on Optilite instrument from [facility]. Immunoglobulin free light chain assay results should be interpreted in conjunction with other tests and in correlation with clinical picture.Performed By: #### BALDEMAR, B12 ####[address] [phone] InterpretationSEE COMMENTNormalCGalion Hospital on above:Result Comment: Poorly defined region of restricted mobility in IgG and lambda lanes. Pattern is less well defined or fainter than typically seen in monoclonal gammopathy. This could represent eitheran atypical presentation of polyclonal immunoglobulins or the presence of a low level IgG lambda monoclonal gammopathy. If clinically indicated, urine monoclonal protein analysis and serum free light chain measurements are recommended to evaluate further for monoclonal gammopathy. Clinical correlation is necessary.Performed By: #### BALDEMAR, B12 ####[facility] [place] [address] FBH ResultA poorly defined region of restricted mobility is present that may represent an M protein.Critically abnormalNo M protein is identified. [facility] on above:Performed By: #### SERRADHA, B12 ####[place] [address] REM Serum MyH421 mg/lRAxrfyg14-716BxqnikhlkWilson Health on above:Performed By: #### SERMPA, B12 ####[place] [phone] Serum KrK8529 mg/jBHklzjm680-3505 [facility] on above:Performed By: #### SERMPAiden, B12 ####[place] [address] AMW Serum IgM58 mg/mHWulinz10-494SprwihgdyWilson Health on above:Performed By: #### BALDEMAR, B12 ####[place] [phone] ReviewReviewed by Audelia Cabrera MD ([id number])NormalWilson Health on above:Performed By: #### SERMPAiden, B12 ####[place] [phone] CBCDIF (for [facility] use only)on 46-72-2589Crz Baso<0.03 Normal<0.11CCleveland Clinic Akron GeneralAbs Mono0.33 k/uLNormal<0.87Marion HospitalAbs Neut3.89 k/uLNormal1.45-7.50[facility] Absolute nRBC<0.01Normal<0.01Marion HospitalBasophils/100 WBC (Bld) 0.3 %NormalMarion HospitalDTYPEAuto DiffNormalCCleveland Clinic Akron GeneralEosinophils (Bld) [#/Vol]0.14 10*3/uLNormal<0.46Marion HospitalEosinophils/100 WBC (Bld)2.0 %NormalMarion Hospital Erythrocyte distribution width (RBC) [Ratio]12.8 %Qcrfyd82.5-15.0Marion HospitalHematocrit (Bld) [Volume fraction]40.5 %Qwpkni11.0-46.0Marion HospitalHemoglobin (Bld) [Mass/Vol]13.8 g/pAVmtqvb16.5-15.5CCleveland Clinic Akron GeneralLymphocytes (Bld) [#/Vol]2.71 10*3/uLNormal1.00-4.00Marion HospitalLymphocytes/100 WBC (Bld)38.1 %NormalMarion Hospital MCH31.2 aPXbtcnm29.0-34.0Marion HospitalMCHC (RBC) [Mass/Vol]34.1 g/xDOyiutt94.5-36.0Marion HospitalMCV (RBC) [Entitic vol]91.4 fL Znttje22.0-100.0Marion HospitalMonocytes/100 WBC (Bld)4.6 %Normal Marion HospitalNeutrophils/100 WBC (Bld)55.0 %NormalMarion HospitalNRBCs0.0 /100 QJRAvdpbo3UzoqvedsbMarion HospitalPlatelet mean volume (Bld) [Entitic vol]9.7 fLNormal9.0-12.7CTwin City Hospital ClevelandPlatelets (Bld) [#/Vol]170 10*3/gFDvejri449-801Zjlnbaaev Clinic Cletwin city hospitalRBC (Bld) [#/Vol]4.43 10*6/uLNormal3.90-5.20Marion HospitalWBC (Bld) [#/Vol]7.11 10*3/uL Normal3.70-11.00Marion HospitalReticulocyteon 16-72-3561Tno Retic 0.096 M/uLNormal0.0180-0.1000Marion HospitalRetic%2.2 %High0.4-2.0 Marion HospitalVitamin B12on 66-93-6815Gilfltcku (Vitamin B12) [Mass/Vol]421 pg/wXDhqhhs756-1692Haasycsrv Clinic ClevelandComment on above: Performed By: #### SERRADHA, B12 ####[facility] [address] [place], [place] [phone] Vital Signs Date TimeVital SignValuePerforming XornzyzzfOfwmglzr32-30-1910 13:17-0400Body gkiunh959.94 cmCarmen Conley MD Work Phone: [phone])[address] [place], [place] 2581210-07-2025 13:17-0400 Body mass index (BMI) [Ratio]25.3 kg/u7PgknqyCarmen Conley MD Work Phone: [phone])[address] [place], [place] 2581210-07-2025 13:17-0400 Body wytxxm32.78 kgCarmen Conley MD Work Phone: [phone])[address] [place], [place] 2581210-07-2025 13:17-0400 Diastolic blood ogclbtnn18 mm[Hg]Carmen Conley MD Work Phone: [phone])[address] [place], [place] 2581210-07-2025 13:17-0400 Heart rate76 /Abram Conley MD Work Phone: [phone])[address] [place], [place] 2581210-07-2025 13:17-0400 Respiratory rate12 /Abram Conley MD Work Phone: [phone])[address] [place], [place] 2581210-07-2025 13:17-0400 SaO2% (BldA) [Mass fraction]99 %Carmen Conley MD Work Phone: [phone])[address] [place], [place] 2581210-07-2025 13:17-0400 Systolic blood wndkroel164 mm[Hg]Carmen Conley MD Work Phone: [phone])[address] [place], [place] 2581209-12-2025 09:52-0400 Body bviviq854.94 cmCarmen Conley MD Work Phone: [phone])[address] [place], [place] 2581209-12-2025 09:52-0400 Body mass index (BMI) [Ratio]25.9 kg/a7PtjgotCarmen Conley MD Work Phone: [phone] [place], [place] 2581209-12-2025 09:52-0400 Body bayhqsagoyd19 [degF]Carmen Conley MD Work Phone: [phone] [place], [place] 2581209-12-2025 09:52-0400 Body ehqmyb17.22 kgCarmen Conley MD Work Phone: [phone] [place], [place] 2581209-12-2025 09:52-0400 Diastolic blood mezgovzl44 mm[Hg]Carmen Conley MD Work Phone: 1(188)[address] [place], [place] 2581209-12-2025 09:52-0400 Heart rate5 /minCarmen Conley MD Work Phone: [phone] [place], [place] 2581209-12-2025 09:52-0400 SaO2% (BldA) [Mass fraction]99 %Carmen Conley MD Work Phone: [phone])[address] [place], [place] 2581209-12-2025 09:52-0400 Systolic blood mm[Hg]Carmen Conley MD Work Phone: 1(318)[address] [place], [place] 2581208-29-2025 11:19-0400 Body qahhqc850.94 cmCarmen Conley MD Work Phone: [phone])[address] [place], [place] 2581208-29-2025 11:19-0400 Body mass index (BMI) [Ratio]27.6 kg/t4EppggrCarmen Conley MD Work Phone: [phone])[address] [place], [place] 2581208-29-2025 11:19-0400 Body cjlyvfxyveu52.4 [degF]Carmen Conley MD Work Phone: [phone])[address] [place], [place] 2581208-29-2025 11:19-0400 Body ylnktv33.22 kgCarmen Conley MD Work Phone: 1(411)[address] [place], [place] 2581208-29-2025 11:19-0400 Diastolic blood uugwtkew27 mm[Hg]Carmen Conley MD Work Phone: 1(091)[address] [place], [place] 2581208-29-2025 11:19-0400 Heart rate88 /minMarcia Conley MD Work Phone: [phone]08-29-2025 11:19-0400 Respiratory rate20 /Abram Conley MD Work Phone: 1(310)[address] [place], [place] 2581208-29-2025 11:19-0400 SaO2% (BldA) [Mass fraction]98 %Carmen Conley MD Work Phone: [phone])[address] [place], [place] 2581208-29-2025 11:19-0400 Systolic blood srxqmhge418 mm[Hg]Carmen Conley MD Work Phone: 1(543)[address] [place], [place] 2581208-08-2025 10:50-0400 Body byehyp886.94 cmCarmen Conley MD Work Phone: [phone])[address] [place], [place] 2581208-08-2025 10:50-0400 Body mass index (BMI) [Ratio]26.6 kg/y3NzmmphCarmen Conley MD Work Phone: 1(264)[address] [place], [place] 2581208-08-2025 10:50-0400 Body uyxdfw99.06 kgCarmen Conley MD Work Phone: [phone])[address] [place], [place] 2581208-08-2025 10:50-0400 Diastolic blood noikgmsp71 mm[Hg]Carmen Conley MD Work Phone: 1(041)[address] [place], [place] 2581208-08-2025 10:50-0400 Heart rate90 /Abram Conley MD Work Phone: 1(994)[address] [place], [place] 2581208-08-2025 10:50-0400 Respiratory rate14 /Abram Conley MD Work Phone: 1(365)[address] [place], [place] 2581208-08-2025 10:50-0400 SaO2% (BldA) [Mass fraction]99 %Carmen Conley MD Work Phone: 1(115)[address] [place], [place] 2581208-08-2025 10:50-0400 Systolic blood qodghssc135 mm[Hg]Carmen Conley MD Work Phone: 1(849)[address] [place], [place] 2581207-24-2025 13:49-0400 Body laebgc568.94 cmCarmen Conley MD Work Phone: 1(681)[address]07-24-2025 13:49-0400 Body mass index (BMI) [Ratio]27.3 kg/p2QgfdhdCarmen Conley MD Work Phone: 1(729)[address]07-24-2025 13:49-0400 Body prakgc81.54 kgCarmen Conley MD Work Phone: 1(155)[address] [place], [place] 2581207-24-2025 13:49-0400 Diastolic blood arddbiua41 mm[Hg]Carmen Conley MD Work Phone: 1(619)[address] [place], [place] 2581207-24-2025 13:49-0400 Heart vfnh012 /Abram Conley MD Work Phone: 1(435)[address] [place], [place] 2581207-24-2025 13:49-0400 Respiratory rate14 /Abram Conley MD Work Phone: 1(354)[address] [place], [place] 2581207-24-2025 13:49-0400 SaO2% (BldA) [Mass fraction]98 %Carmen Conley MD Work Phone: 1(737)[address] [place], [place] 2581207-24-2025 13:49-0400 Systolic blood njrfpaxw829 mm[Hg]Carmen Conley MD Work Phone: 1(632)[address] [place], [place] 2581206-24-2025 10:30-0400 Body klfekk426.94 cmCarmen Conley MD Work Phone: 1(529)[address] [place], [place] 2581206-24-2025 10:30-0400 Body mass index (BMI) [Ratio]29 kg/b5QmqebwCarmen Conley MD Work Phone: 1(083)[address] [place], [place] 2581206-24-2025 10:30-0400 Body qbfteq08.62 kgCarmen Conley MD Work Phone: 1(422)[address] [place], [place] 2581206-24-2025 10:30-0400 Diastolic blood xkqtytvn03 mm[Hg]Carmen Conley MD Work Phone: 1(954)[address] [place], [place] 2581206-24-2025 10:30-0400 Heart rate85 /Abram Conley MD Work Phone: [facility]06-24-2025 10:30-0400 Systolic blood mm[Hg]Carmen Conley MD Work Phone: [facility]06-05-2025 10:53-0400 Body kxltxy789.94 [facility] 10:53-0400Body mass index (BMI) [Ratio]29.2 kg/s5WmugaygezPeoples Hospital06-05-2025 10:53-0400Body cmzyzw72.3 [facility]2025 10:53-0400Diastolic blood fnnhulwt90 mm[Hg][facility] 09-10-2024 10:53-0400Heart rate85 /[facility] 09-10-2024 10:53-0400Respiratory rate12 /[facility] 09-10-2024 10:53-1932CbH9% (BldA) [Mass fraction]96 %[facility]06-05-2025 10:53-0400Systolic blood mm[Hg][facility]03-24-2025 13:57-0400Body egndhy063.94 [facility] 13:57-0400Body mass index (BMI) [Ratio]29.1 kg/m2 [facility]03-24-2025 13:57-0400Body vuekoh67.93 kg [facility]03-24-2025 13:57-0400Diastolic blood vyoeykbr78 mm[Hg][facility]03-24-2025 13:57-0400Heart rate86 /min [facility]03-24-2025 13:57-0400Respiratory rate12 /min [facility]03-24-2025 13:57-6953MeE0% (BldA) [Mass fraction]99 %[facility]03-24-2025 13:57-0400Systolic blood mswpgede357 mm[Hg][facility]01-31-2025 09:03-0500 Body pmrqsy068.94 [facility]20[facility] 09:03-0500Body mass index (BMI) [Ratio]29.7 kg/z9MjtgulgazPeoples Hospital01-31-2025 09:03-0500Body .27 [facility]01[facility]2025 09:03-0500Diastolic blood mm[Hg][facility] 05-08-2024 09:03-0500Heart akxt150 /[facility]Pe[facility] 05-08-2024 09:03-7580YyA2% (BldA) [Mass fraction]95 %[facility]01-31-2025 09:03-0500Systolic blood sphsmyev513 mm[Hg][facility]11-20-2024 13:26-0500Diastolic blood nyxethnw89 mm[Hg]Carmen Conley MD Work Phone: [facility]11-20-2024 13:26-0500 Heart rate92 /Abram Conley MD Work Phone: 1([phone]11-20-2024 13:26-0500 Respiratory rate18 /Abram Conley MD Work Phone: [facility]11-20-2024 13:26-0500 SaO2% (BldA) [Mass fraction]98 %Carmen Conley MD Work Phone: [facility]11-20-2024 13:26-0500 Systolic blood xokdusee679 mm[Hg]Carmen Conley MD Work Phone: 1([phone]11-20-2024 11:01-0500 Body tliefd156.94 cmCarmen Conley MD Work Phone: [facility]11-20-2024 11:01-0500 Body eksozm54.13 kgCarmen Conley MD Work Phone: [facility]10-30-2024 11:34-0400 Body vortmw038.67 cmCarmen Conley MD Work Phone: 1(419)483-[address] [place], [place] 2514810-30-2024 11:34-0400 Body mass index (BMI) [Ratio]28.6 kg/t2TdtryzCarmen Conley MD Work Phone: 1(227)[address]10-30-2024 11:34-0400 Body .58 kgCarmen Conley MD Work Phone: 1(069)[address] [place], [place] 2581210-30-2024 11:34-0400 Diastolic blood idmyyrxx39 mm[Hg]Carmen Conley MD Work Phone: 1(749)[address] [place], [place] 2581210-30-2024 11:34-0400 Heart ayjr967 /Abram Conley MD Work Phone: 1(351)[address] [place], [place] 2581210-30-2024 11:34-0400 Systolic blood mm[Hg]Carmen Conley MD Work Phone: 1(784)[address] [place], [place] 2581210-03-2024 09:57-0400 Body fwgyzj370.67 cmCarmen Conley MD Work Phone: 1(016)[address] [place], [place] 2581210-03-2024 09:57-0400 Body mass index (BMI) [Ratio]28.8 kg/l6GvlwxrCarmen Conley MD Work Phone: 1(264)[address] [place], [place] 2581210-03-2024 09:57-0400 Body lrkdib80.09 kgCarmen Conley MD Work Phone: 1(903)[address] [place], [place] 2581210-03-2024 09:57-0400 Diastolic blood uykcgyis73 mm[Hg]Carmen Conley MD Work Phone: 1(589)[address] [place], [place] 2581210-03-2024 09:57-0400 Heart rate74 /Abram Conley MD Work Phone: 1(530)[address] [place], [place] 2581210-03-2024 09:57-0400 Respiratory rate16 /Abram Conley MD Work Phone: 1(373)[address] [place], [place] 2581210-03-2024 09:57-0400 SaO2% (BldA) [Mass fraction]98 %Carmen Conley MD Work Phone: 1(269)[address]10-03-2024 09:57-0400 Systolic blood vjgyjdhn274 mm[Hg]Carmen Conley MD Work Phone: 1(382)[address] [place], [place] 2581210-01-2024 10:25-0400 Body nyrjxd622.67 cmCarmen Conley MD Work Phone: 1(848)[address]10-01-2024 10:25-0400 Body mass index (BMI) [Ratio]28 kg/p8EcunssCarmen Conley MD Work Phone: 1(491)[address] [place], [place] 2581210-01-2024 10:25-0400 Body .22 kgCarmen Conley MD Work Phone: 1(629)[address] [place], [place] 2581210-01-2024 10:25-0400 Diastolic blood ghlwuzxd43 mm[Hg]Carmen Conley MD Work Phone: 1(688)[address] [place], [place] 2581210-01-2024 10:25-0400 Heart rate84 /Abram Conley MD Work Phone: 1(389)[address] [place], [place] 2581210-01-2024 10:25-0400 Systolic blood pldldmdo598 mm[Hg]Carmen Conley MD Work Phone: 1(570)[address] [place], [place] 2581209-19-2024 10:41-0400 Body zxslxu549.67 cmCarmen Conley MD Work Phone: 1(608)[address] [place], [place] 2581209-19-2024 10:41-0400 Body mass index (BMI) [Ratio]29.2 kg/b5XkgzqwCarmen Conley MD Work Phone: 1(777)[address]09-19-2024 10:41-0400 Body .94 kgCarmen Conley MD Work Phone: 1(128)050[address]09-19-2024 10:41-0400 Diastolic blood vgspkmyp15 mm[Hg]Carmen Conley MD Work Phone: 1(872)[address]09-19-2024 10:41-0400 Heart hrme225 /Abram Conley MD Work Phone: 1(028)946[facility]59[facility]09-19-2024 10:41-0400 Systolic blood czmdysxy478 mm[Hg]Carmen Conley MD Work Phone: 1(460)[address]09-10-2024 11:29-0400 Body .67 cmCarmen Conley MD Work Phone: 1(639)[address]325 [address]09-10-2024 11:29-0400 Body mass index (BMI) [Ratio]29.5 kg/y5NriccpCarmen Conley MD Work Phone: 1(571)[address]09-10-2024 11:29-0400 Body bycdpzdxhfc66.7 [degF]Carmen Conley MD Work Phone: 1(182)[address] [place], [place] 2581209-10-2024 11:29-0400 Body bthehe22.85 kgCarmen Conley MD Work Phone: 1(963)[address]09-10-2024 11:29-0400 Diastolic blood kmxwhaih93 mm[Hg]Carmen Conley MD Work Phone: 1(089)[address]09-10-2024 11:29-0400 Heart dnyt223 /minCarmen Conley MD Work Phone: 1(537)[address]09-10-2024 11:29-0400 SaO2% (BldA) [Mass fraction]97 %Carmen Conley MD Work Phone: 1(706)61225 [address]09-10-2024 11:29-0400 Systolic blood lpirfttb253 mm[Hg]Carmen Conley MD Work Phone: 1([phone]07-02-2024 13:29-0400 Diastolic blood baqdqdpd79 mm[Hg]Dontae Hernández [facility]07-02-2024 13:29-0400Heart rate79 /minThomas Edgar [facility]07-02-2024 13:29-0400 Respiratory rate20 /minThomas Edgar [facility]07-02-2024 13:29-3374CwR4% (BldA) [Mass fraction]94 %Dontae Hernández [address] [place], [place] 6365407-02-2024 13:29-0400 Systolic blood mm[Hg]Dotnae Hernández [address]05-30-2024 10:12-0400 Diastolic blood gaezchtt76 mm[Hg]Dontae Hernández [address]05-30-2024 10:12-0400Mean blood potwncku455 mm[Hg]Dontae Hernández [address] [place], [place] 3220905-30-2024 10:12-0400 Systolic blood qnkippkx399 mm[Hg]Dontae Hernández [address] [place], [place] 3220905-30-2024 10:01-0400Blood Pressure LocationBoraermias Hernández [address] [place], [place] 6365405-30-2024 10:01-0400 Diastolic blood nkqxotby62 mm[Hg]Dontae Hernández [address] [place], [place] 3220905-30-2024 10:01-0400Heart rate82 /minThomas Edgar [address] [place], [place] 6365405-30-2024 10:01-3200CyX9% (BldA) [Mass fraction]97 %Dontae Hernández [facility]05-30-2024 10:01-0400 Systolic blood vnftagey139 mm[Hg]Dontae Hernández [facility]04-17-2024 13:50-0400Blood Pressure LocationShaun Goode [phone]-FbrimSelect [facility]04-17-2024 13:50-0400Diastolic blood nqnltibu71 mm[Hg]Shaun Goode [phone]-FimchSelect [facility]ty [facility]04-17-2024 13:50-0400Heart rate85 /minMohamad Mouchli 129-7596Wsukwc-Glcqp[address] [place], [place] 7786104-17-2024 13:50-0400Respiratory rate16 /minMohamad Mouchli 394-1966Ullgyo-Wcdud[address] [place], [place] 7786104-17-2024 13:50-0400Systolic blood zzlgmcip491 mm[Hg]Mohamad Mouchli [phone]-Rykmm[address] [place], [place] 7786103-26-2024 09:50-0400Diastolic blood hjqfmsiv40 mm[Hg]Mohamad Junitouchli [address]03-26-2024 09:50-0400Heart rate82 /minMohamad Mouchli [address] [place], [place] 2481803-26-2024 09:50-0400Mean blood aasonjyw52 mm[Hg]Mohamad Mouchli [address] [place], [place] 2481803-26-2024 09:50-0400 Respiratory rate17 /minMohamad Mouchli [address] [place], [place] 2481803-26-2024 09:50-6830FxM0% (BldA) [Mass fraction]94 %Mohamad Junitouchli [address] [place], [place] 2481803-26-2024 09:50-0400 Systolic blood xdbumrkr518 mm[Hg]Mohamad Mouchli [address] [place], [place] 2481803-26-2024 09:40-0400 Diastolic blood ykgspbdu34 mm[Hg]Mohamad Mouchli [address] [place], [place] 2481803-26-2024 09:40-0400Heart rate80 /minMohamad Mouchli [address] [place], [place] 2481803-26-2024 09:40-0400Mean blood vguitstq84 mm[Hg]Mohamad Mouchli [address] [place], [place] 2481803-26-2024 09:40-0400 Respiratory rate11 /minMohamad Mouchli [address] [place], [place] 2481803-26-2024 09:40-4395VgD4% (BldA) [Mass fraction]93 %Mohamad Mouchli [address] [place], [place] 2481803-26-2024 09:40-0400 Systolic blood vamwareo822 mm[Hg]Mohamad Mouchli [address]03-26-2024 09:35-0400 Diastolic blood indnwdii66 mm[Hg]Mohamad Mouchli [address]03-26-2024 09:35-0400Heart rate86 /minMohamad Mouchli [address] [place], [place] 2481803-26-2024 09:35-0400Mean blood yyxgvenw71 mm[Hg]Mohchelad Junitouchli [address] [place], [place] 2481803-26-2024 09:35-0400 Respiratory rate15 /minMohamad Mouchli [address] [place], [place] 2481803-26-2024 09:35-0962OuU5% (BldA) [Mass fraction]93 %Mohamad Mouchli [address] [place], [place] 2481803-26-2024 09:35-0400 Systolic blood ylagtmes095 mm[Hg]Mohamad Mouchli [address]03-26-2024 09:25-0400Body gjwuejxhqgg94.16 [degF]Mohamad Mouchli [address]03-26-2024 08:43-0400Blood Pressure LocationMohamad Mouchli [facility]03-26-2024 08:43-0400Body kuealjeljqg88.8 [degF]Shaun Goode [facility]03-20-2024 12:17-0400Blood Pressure LocationShaun Goode [phone]-VcusiSelect [facility]ty [facility]03-20-2024 12:17-0400Diastolic blood djctnnki30 mm[Hg]Shaun Goode [phone]-Jmdmb[address] [place], [place] 7786103-20-2024 12:17-0400Heart rate80 /minMomercedesad Rupa [phone]-Fhfej[address] [place], [place] 7786103-20-2024 12:17-0400Respiratory rate16 /minMohamad Rupa [phone]-Kjsum[address] [place], [place] 7786103-20-2024 12:17-0400Systolic blood doiylvpy969 mm[Hg]Shaun Goode [phone]-PwmrwSelect [facility]ty [facility]03-15-2024 13:44-0400Diastolic blood wsyyodtm95 mm[Hg]Deonte Peraza [facility]03-15-2024 13:44-0400Heart rate96 /minRyflor Peraza [facility]03-15-2024 13:44-9013WqJ5% (BldA) [Mass fraction]95 %Deonte Peraza [facility]03-15-2024 13:44-0400 Systolic blood xrrghfum466 mm[Hg]Deonte Peraza [facility]12-14-2023 13:30-0500Body ovgrpp795.67 cmCarmen Conley Other [employer] Other 12-14-2023 13:30-0500Body mass index (BMI) [Ratio] 30.54 kg/i6JpiwfwCarmen Conley Other [employer] Other 12-14-2023 13:30-0500Body .12 kgCarmen Yael Other [employer] Other 12-14-2023 13:30-0500Diastolic blood jnvwsuyd03 mm[Hg] Carmen Conley Other [employer] Other 12-14-2023 13:30-0500Systolic blood fippozck172 mm[Hg] Carmen Conley Other [employer] Other 10-19-2023 11:15-0400Body fopmhq147.67 cmCarmen Conley Other [employer] Other 10-19-2023 11:15-0400Body mass index (BMI) [Ratio] 29.58 kg/w7AoecchCarmen Conley Other [employer] Other 10-19-2023 11:15-0400Body ajjuwawapoj66.7 [degF]Carmen Conley Other [employer] Other 10-19-2023 11:15-0400Body axabto56.85 kgCarmen Conley Other [employer] Other 10-19-2023 11:15-0400Diastolic blood zdxkqhit52 mm[Hg] Carmen Conley Other [employer] Other 10-19-2023 11:15-0143VkZ5% (BldA) [Mass fraction]97 % Carmen Conley Other [employer] Other 10-19-2023 11:15-0400Systolic blood kuswdmwt024 mm[Hg] Carmen Conley Other [employer] Other 09-22-2023 13:30-0400Body .67 cmCarmen Conley Other [employer] Other 09-22-2023 13:30-0400Body mass index (BMI) [Ratio] 29.96 kg/g2MgccksCarmen Conley Other [employer] Other 09-22-2023 13:30-0400Body fbibsk64.76 kgCarmen Conley Other [employer] Other 09-22-2023 13:30-0400Diastolic blood mm[Hg] Carmen Conley Other [employer] Other 09-22-2023 13:30-0400Systolic blood zoovmqhc307 mm[Hg] Carmen Conley Other [employer] Other 05-02-2023 12:45-0400Body lnruzr981.67 cmCarmen Conley Other [employer] Other 05-02-2023 12:45-0400Body mass index (BMI) [Ratio] 30.15 kg/a5DlsssxCarmen Conley Other [employer] Other 05-02-2023 12:45-0400Body uhsrxfidwnv65.1 [degF]Carmen Conley Other [employer] Other 05-02-2023 12:45-0400Body dzzqal65.22 kgCarmen Yael Other [employer] Other 05-02-2023 12:45-0400Diastolic blood fuywowfq71 mm[Hg] Carmen Conley Other [employer] Other 05-02-2023 12:45-1360ZwQ6% (BldA) [Mass fraction]97 % Carmen Conley Other [employer] Other 05-02-2023 12:45-0400Systolic blood sywmfcko413 mm[Hg] Carmen Conley Other [employer] Other 03-15-2023 12:00-0400Body shawbl685.67 cmCarmen Conley Other [employer] Other 03-15-2023 12:00-0400Body mass index (BMI) [Ratio] 30.54 kg/v7TorcefCarmen Conley Other [employer] Other 03-15-2023 12:00-0400Body ctexlp35.12 kgMaryshubhamaiden Conley Other [employer] Other 03-15-2023 12:00-0400Diastolic blood trfzpede38 mm[Hg] Carmen Conley Other [employer] Other 03-15-2023 12:00-0075MpW7% (BldA) [Mass fraction]98 % Carmen Conley Other [employer] Other 03-15-2023 12:00-0400Systolic blood olbzzzhh683 mm[Hg] Carmen Conley Other [employer] Other 03-07-2023 09:30-0500Body fvlahl983.67 cmSilviaaiden Conley Other [employer] Other 03-07-2023 09:30-0500Body mass index (BMI) [Ratio] 30.54 kg/x9XkxrddCarmen Conley Other [employer] Other 03-07-2023 09:30-0500Body iwtwam78.12 kgCarmen Yael Other [employer] Other 03-07-2023 09:30-0500Diastolic blood vcxnyyrp48 mm[Hg] Carmen Conley Other [employer] Other 03-07-2023 09:30-2569UqJ4% (BldA) [Mass fraction]97 % Carmen Conley Other [employer] Other 03-07-2023 09:30-0500Systolic blood jyphyxqm011 mm[Hg] Carmen Conley Other [employer] Other 02-02-2023 11:00-0500Body ymkvnw785.67 cmCarmen Conley Other [employer] Other 02-02-2023 11:00-0500Body mass index (BMI) [Ratio] 30.54 kg/h8IhcbnkCamren Conley Other [employer] Other 02-02-2023 11:00-0500Body xxblow65.12 kgCarmen Conley Other [employer] Other 02-02-2023 11:00-0500Diastolic blood urilnccl61 mm[Hg] Carmen Conley Other [employer] Other 02-02-2023 11:00-9772GdX6% (BldA) [Mass fraction]97 % Carmen Conley Other [employer] Other 02-02-2023 11:00-0500Systolic blood xjwzbpar491 mm[Hg] Carmen Conley Other [employer] Other 01-13-2023 11:30-0500Body cirsnd857.67 cmCarmen Conley Other [employer] Other 01-13-2023 11:30-0500Body mass index (BMI) [Ratio] 30.54 kg/o9BbxyhnCarmen Conley Other [employer] Other 01-13-2023 11:30-0500Body lodosq03.12 kgCarmen Conley Other [employer] Other 01-13-2023 11:30-0500Diastolic blood unxzufnu27 mm[Hg] Carmen Conley Other [employer] Other 01-13-2023 11:30-6739RsC3% (BldA) [Mass fraction]97 % Carmen Conley Other [employer] Other 01-13-2023 11:30-0500Systolic blood yzqnnrlg561 mm[Hg] Carmen Conley Other [employer] Other 01-09-2023 15:15-0500Body .67 cmCarmen Conley Other [employer] Other 01-09-2023 15:15-0500Body mass index (BMI) [Ratio] 30.35 kg/o2DmcyydCarmen Conley Other [employer] Other 01-09-2023 15:15-0500Body vqdubf22.67 kgCarmen Conley Other [employer] Other 01-09-2023 15:15-0500Diastolic blood sumsbhkk44 mm[Hg] Carmen Conley Other [employer] Other 01-09-2023 15:15-6996ArP2% (BldA) [Mass fraction]97 % Carmen Conley Other [employer] Other 01-09-2023 15:15-0500Systolic blood dihfveby264 mm[Hg] Carmen Conley Other [employer] Other Encounters Encounter DateEncounter TypeCare ProviderFacilityStart: 01-12-2025 End: 58-03-6469tzlvsvywvjUlxxvh E Braun MD Work Phone: [facility] Work Phone: Start: 01-12-2025 End: 97-75-7398Wnjalkl encounter procedureCarmen Conley MD-[facility] Work Phone: Start: 12-18-2024 End: 65-60-1160wghqyhnxzbWnqsmz E Braun MD Work Phone: [facility] Work Phone: Start: 12-18-2024 End: 66-28-9158Kgfeqkc encounter procedureMichael Faria MD-[facility] Work Phone: Start: 12-04-2024 End: 62-34-2099uoevjzcwshFacktk E Braun MD Work Phone: [facility] Work Phone: Start: 12-04-2024 End: 14-74-2728Jgvdlly encounter procedureMichael Faria MD-[facility] Work Phone: Start: 11-26-2024 End: 53-64-7297Lhuibljkk encounterElly Serna MD Work Phone: [facility] OtolaryngologyComment on above:swallow test appt follow upStart: 11-13-2024 End: 04-71-7958yezxbkmhnvMlmhtc E Braun MD Work Phone: [facility] Work Phone: Start: 11-13-2024 End: 52-56-2353Jbspusl encounter procedureCarmen Conley MD-[facility] Work Phone: Start: 91-04-7040Rni-patient / Non-visitCatherine Marlo JAIMES-[facility] Work Phone: Start: 97-44-0243Ezaifueynu and management of inpatientSELVIN Qiuroz [facility]: 11-02-2024 Evaluation and management of inpatientSMercy Health [facility] Hospitaltart: 57-58-5527Ebchzkvfbv and management of inpatientSTrinity Health System West Campustart: 45-33-5398Bpuhmkagca and management of inpatientParkwood Hospitaltart: 10-29-2024 End: 01-38-2956Jblnfqkvug and management of inpatientGEOFFREY [facility]: 10-29-2024 End: 95-46-7513Aphvqthoi department patient visitGEOFFVELMA IVERSONUniversity Hospitals Geauga Medical Centertart: 10-29-2024 End: 95-94-1667vmxivhwjygNyhuiv E Braun MD Work Phone: [facility] Work Phone: Start: 10-29-2024 End: 25-93-7518Qsgetfky ReferredSyed Jill CERRATO-LAB [facility] HospStart: 10-29-2024 End: 62-44-2314emlmpmlrlvYbrmde E Braun MD Work Phone: [facility] Work Phone: Start: 10-29-2024 End: 05-56-8228Nadooeq encounter procedureCarmen Conley MD-[facility] Work Phone: Start: 10-21-2024 End: 65-27-7478Dbwmbjliz encounterHibeatriz Serna MD Work Phone: [facility] [place] OtolaryngologyStart: 10-12-2024 End: 81-05-5245Iivfur flowsheetElly Serna MD Work Phone: [facility] CI ENTStart: 10-12-2024 End: 23-38-3056Bvcvun Kira Serna MD Work Phone: NO[facility] CI ENTStart: 43-42-1118Bieqxlh encounter status Elly Serna MD Work Phone: noms HealthcareStart: 10-12-2024 End: 03-71-5862csdhvtqfjsWHSCHJ H TIMMISNot AvailableStart: 09-29-2024 End: 44-61-8911Qxvnywe encounter procedureCarmen Conley MD-[facility] Work Phone: Start: 11-14-6515Syf-patient / Non-visitCarmen Conley MD-[facility] Work Phone: Start: 09-10-2024 End: 46-65-4570xdxcamhzxzSqnjuqpxtAdena [facility]ike [facility] Work Phone: Start: 09-10-2024 End: 42-12-5193Hsprtnj encounter procedureFaisal Physician Group-[facility] Work Phone: Start: 06-29-2024 End: 04-09-1778xigqufosmoZurkwmmnvAdena Pike Medical Center Work Phone: start: 06-29-2024 End: 80-00-3622Wlmqvke [facility] Work Phone: Start: 06-09-2024 End: 07-45-7035Lhcznk outpatient visit 25 minutesNatalie A Felter GLOBAL PRESIDENT-BUSINESS OFFICE MANAGER Work Phone: noms [facility] DERMComment on above:Psoriasis vulgaris (CMS/HCC) (Primary Dx)Start: 06-09-2024 End: 24-59-0552hbemkfurdrWPUZEZT A FELTERNot AvailableStart: 06-09-2024 End: 49-57-4858Mtbeyy flowsheetNatalie A Felter GLOBAL PRESIDENT-BUSINESS OFFICE MANAGER Work Phone: noms [facility] DERMStart: 06-09-2024 End: 27-39-9351Ibnkzk flowsheetNatalie A Felter GLOBAL PRESIDENT-BUSINESS OFFICE MANAGER Work Phone: noms [facility] DERMStart: 05-08-2024 End: 16-38-8047Voohkad [facility] Work Phone: Start: 04-28-2024 End: 40-02-3315Lvkcnf outpatient visit 15 minutesNatalie A Felter GLOBAL PRESIDENT-BUSINESS OFFICE MANAGER Work Phone: noms [facility] DERMComment on above:Psoriasis vulgaris (CMS/HCC)Start: 04-28-2024 End: 99-71-8287npuysgoarqPXFUODG A FELTERNot AvailableStart: 04-28-2024 End: 47-61-8437Rxkgle flowsheetNatalie A Felter GLOBAL PRESIDENT-BUSINESS OFFICE MANAGER Work Phone: noms [facility] DERMStart: 04-28-2024 End: 67-31-2394Tapjgi flowsheetNatalie A Felter GLOBAL PRESIDENT-BUSINESS OFFICE MANAGER Work Phone: noms [facility] DERMStart: 17-16-0164Wdxubin encounter procedureSalem Regional Medical Centertart: 42-54-2794Nqi-patient / Non-visitCarmen Conley MD Work Phone: [facility] Work Phone: Start: 02-26-2024 End: 62-33-2573Rbxdbggfm to same day surgery centerCarmen Conley MD Work Phone: [facility] Work Phone: Start: 02-26-2024 End: 84-37-3980egzglgjxrbZefkrh E Braun MD Work Phone: [facility] Work Phone: Start: 02-05-2024 End: 41-73-5855Tirrovg encounter procedureCarmen Conley MD Work Phone: [facility] Work Phone: Start: 26-78-2781axjdavdbkuLjwvim SteinFacility: BellevueStart: 45-05-9937Azz-patient / Non-visitCarmen Conley MD Work Phone: [facility] Work Phone: Start: 01-09-2024 End: 56-02-8160Btaekpj encounter procedureCarmen Conley MD Work Phone: [facility] Work Phone: Start: 14-43-4944jikdbnfdmlOdzrbvq A. Mouchli Facility:[facility] DHStart: 01-07-2024 End: 42-14-4768Sbtvwa outpatient visit 15 minutesNatalie A Felter GLOBAL PRESIDENT-BUSINESS OFFICE MANAGER Work Phone: [facility] DERMComment on above:Other seborrheic dermatitis (Primary Dx); Inflamed seborrheic keratosisStart: 01-07-2024 End: 85-80-8609sbockdtgngPVPKSMG A FELTERNot AvailableStart: 01-07-2024 End: 68-66-2568Nhfysph encounter procedureaCrmen Conley MD Work Phone: [facility] Work Phone: Start: 01-06-2024 End: 44-18-6295tlpszqcylnSesjdaj Vytautas Giedraitis MDFacility:[facility] Start: 77-59-7641Msi-patient / Non-visitCarmen Conley MD Work Phone: [facility] Work Phone: Start: 12-26-2023 End: 25-91-8488Kbsmuaa encounter procedureCarmen Conley MD Work Phone: [facility] Work Phone: Start: 70-33-6795Lev-patient / Non-visitCarmen Conley MD Work Phone: [facility] Work Phone: Start: 11-43-3754Dkv-patient / Non-visitCarmen Conley MD Work Phone: [facility] Work Phone: Start: 68-14-6906Xup-patient / Non-visitCarmen Conley MD Work Phone: [facility] Work Phone: Start: 12-17-2023 End: 77-55-2026Cmyxqvr encounter procedureCarmen Conley MD Work Phone: [facility] Work Phone: Start: 12-16-2023 End: 36-52-4550ctfsddxmhmTospmua Vytautas Giedraitis MDFacility:[facility] [place] Start: 11-25-2023 End: 38-49-2707pzbbxdkjjaBmvvxbt Vytautas Giedraitis MDFacility:[facility] [place] Start: 10-28-2023 End: 97-78-5507etnysksiubAmnwgsl Vytautas Giedraitis MDFacility:[facility] [place] Start: 10-08-2023 End: 06-23-6062vdqujwlhgtScjroz A EdgarFacility:FTMCStart: 10-08-2023 End: 57-34-3265Jucjdlf encounter procedureThermias Wolfe [facility] Start: 10-01-2023 End: 69-44-4761smgonqyyifMacrxr A EdgarFacility:FTMCStart: 10-01-2023 End: 98-73-4676Jjrhdbk encounter procedureThermias Wolfe [facility] Start: 09-05-2023 End: 28-16-2257oyvkegrrqbTkacxs A Dr[facility] HospitalFacility:FTMCStart: 09-05-2023 End: 04-19-1672Xsxdfpz encounter procedureThermias Wolfe [facility] Start: 08-05-2023 End: 30-90-7793lxobtxvrycKmkgRaven PerazaFacility:FTMCStart: 08-05-2023 End: 03-26-2619Jqibuem encounter Adela Peraza [facility] Start: 08-01-2023 End: 15-43-0290Stf-admission assessmentDeonte Peraza [facility] Start: 07-24-2023 End: 86-91-1468Bge-admission assessmentShaun Goode [facility] Start: 07-24-2023 End: 25-76-5389pqprajttrrLifxeet A. MouchliFacility:[facility] DHStart: 07-24-2023 End: 96-97-8797Xeacabc encounter procedureShaun Goode 006-6405Zrkfgm-QxpcfHolzer Hospital [facility] Start: 07-02-2023 End: 26-31-1178chdswigkteApnshsa Dameon GoodeFacility:FTMCStart: 07-02-2023 End: 21-87-9348Evzzcpz encounter procedureMosandie Goode [facility] Start: 06-26-2023 End: 54-22-7281aeotrfmaqgZiujeep A. MouchanjelFacility:FTMCStart: 06-26-2023 End: 11-41-9111Uxkvlyl encounter procedureMosandie Goode [facility] Start: 06-26-2023 End: 95-61-1999cjtklkleseLmaoxqs Dameon WilduchliFacility:[facility] DHStart: 06-26-2023 End: 50-60-4189Jldnegx encounter procedureMosandie Goode [phone]-WojowHolzer Hospital [facility] Start: 06-21-2023 End: 08-19-2337wycjpjwxgnMotpRaven PerazaFacility:FTMCStart: 06-21-2023 End: 22-00-5195Ebdnrpd encounter Adela Peraza [facility] Start: 06-18-2023 End: 43-46-2368qnuyyxspecWMAHZO BRAUNFacility:FTMCStart: 06-18-2023 End: 67-45-9306Ynfffej encounter procedureCARMEN CONLEY [facility] Start: 38-80-9579ruofsvbzhrPnddym SteinFacility:Esperanza Quiroz DHStart: 05-14-2023 End: 61-29-8017llnlvydzlxGfwksr Conley Other noProxeon Other Start: 21-25-7806Skgryxwhz encounterMarcia [facility] ClinicStart: 04-03-2023 End: 39-94-2782xjbsdtheymBlmqmp Conley Other noProxeon Other Start: 92-91-0190Chkmsjiju encounterMarcia JenniferG [facility] ClinicStart: 04-02-2023 End: 44-70-2823xqicwnqovvLlxfat Conley Other noProxeon Other Start: 06-09-4208Wxxaptfop encounterMarcia JenniferG [facility] ClinicStart: 03-21-2023 End: 75-96-8534gxnxgfkeucZvsfcq Conley Other noProxeon Other Start: 99-64-2543Bmzjkm outpatient visit 15 minutes Carmen ConleyHlilary [facility] ClinicStart: 68-03-3520Cqavchnba encounterMarcia JenniferG [facility] ClinicStart: 02-06-2023 End: 84-21-0776vwwxsqixelCbtdxs Conley Other noProxeon Other Start: 61-82-2896Tkylblubs encounterMarcia JenniferG [facility] ClinicStart: 02-01-2023 End: 15-08-7323rffclvuibcIuezjj Conley Other noProxeon Other Start: 05-65-5179Eokfksnbv encounterMarcia JenniferG [facility] ClinicStart: 01-24-2023 End: 93-23-1627ydzlupzlhfRvahjo Conley Other noProxeon Other Start: 74-34-9589Gxmyjy outpatient visit 15 minutes [facility] ClinicStart: 01-17-2023 End: 05-06-4576uiwprhsdsgXokgcx Conley Other noProxeon Other Start: 00-26-7955Xarflvjkj encounterMarcia [facility] ClinicStart: 01-01-2023 End: 09-99-3007crihnqpphiYpdkcc Conley Other noProxeon Other Start: 29-88-6855Ovrsurlgu encounterMarcia [facility] ClinicStart: 12-28-2022 End: 58-24-2824rgqyaftcehGcsyfp Conley Other noProxeon Other Start: 17-20-9424Godduva encounter procedureMarcia [facility] ClinicStart: 10-04-2022 End: 30-14-1639zxdidcrrnkIetdkm Conley Other [employer] Other Start: 55-94-0217Nsarrcfog encounterMarcia [facility] ClinicStart: 08-09-2022 End: 39-95-9608tfdzbfbllzSctamp Conley Other noProxeon Other Start: 43-74-6109Coyriwkxc encounterMarcia [facility] ClinicStart: 35-26-3272Nericpgvx encounterMarcia [facility] ClinicStart: 08-08-2022 End: 92-59-6797cosarzpcspDQ CARMEN Riggins [facility] [employer]Man[employer] TCM Bertha Other Start: 08-07-2022 End: 54-68-6362cqzznadmpjDuarsw Conley Other noProxeon Other Start: 05-73-3347Yikwqj outpatient visit 15 minutes [facility] ClinicStart: 07-31-2022 End: 40-70-9526mgseprjfnpTejoop Conley Other noProxeon Other Start: 49-99-9951Rtiyjllwp encounterMarcia Y[facility]iko [facility] ClinicStart: 07-02-2022 End: 90-85-3408fitewrxfxnXK CARMEN Riggins YAELFacility:H6Aoqtv: 06-20-2022 End: 04-62-1297lzalygtxxjZpujdi Conley Other noProxeon Other Start: 62-99-0695Euhfif outpatient visit 10 minutes [facility] ClinicStart: 06-14-2022 End: 04-92-0029zpqaejvvgxZnssun Conley Other noManifest Digital TCM Bertha Other Start: 61-89-4492Atgrxyjwv encounterMarcia Yumiko [facility] ClinicStart: 27-98-4137Bzteis outpatient visit 15 minutesMarnick [facility] ClinicStart: 06-12-2022 End: 74-19-0007xtwhtdrbwlYN CARMEN Vaishnavi CONLEYNort TCM Bertha Other Start: 05-10-2022 End: 60-04-9878pmnrvwgpjyUnelwj Conley Other noProxeon Other Start: 27-73-9604Dgkuey outpatient visit 15 minutes [facility] ClinicStart: 74-81-8814Xpvirbfep encounterMarcia [facility] ClinicStart: 05-03-2022 End: 65-81-4833wrxyznivmvEchncq Conley Other noProxeon Other Start: 35-18-8850Omfveufrn encounterMarcia [facility]iko [facility] ClinicStart: 04-23-2022 End: 94-22-0019mfiyvdthynMJ CARMEN CONLEYFacility:W2Zuici: 04-20-2022 End: 69-84-8017zbkfvjoidkHdrsnv Braun Other noProxeon Other Start: 30-54-1669Zniwun outpatient visit 25 minutes [facility]Start: 04-17-2022 End: 61-94-5918malsujzcsaGewtoi Braun Other [employer] Other Start: 21-84-4506Xwrwzfptq encounterSilviaaiden [facility] ClinicStart: 04-16-2022 End: 75-94-6222rxfuiksilmXfgdgt Braun Other noProxeon Other Start: 39-36-5405Yqxxkk outpatient visit 25 minutes [facility] ClinicStart: 04-12-2022 End: 09-51-5637wytotkyisaMX CARMEN CONLEYFacility:B2Vrnyx: 01-05-2022 End: 72-76-0941tjjlhviuyeGP CARMEN Riggins BRAUNFacility:Z4Wygxz: 11-26-2021 End: 97-37-3086bsnluvpepiYD CARMEN CONLEYFacility:P5Kjiug: 11-08-2021 End: 85-28-1633znvjvhguceGV SUKHWINDER BALLFacility:G6Ufnuk: 08-17-2021 End: 73-58-5635bprdmnfpxfFB CARMEN CONLEYFacility:L4Jhnqe: 21-97-4767Jgdtlhqdx encounterMehrdad Aguilar MD Work Phone: Cancer Appts MCComment on above:AppointmentStart: 09-21-2020 End: 01-97-8613Uzdzmyodqe hospital visit by physicianMri [facility] (Lg Bore/1.5t)Radiology MRIComment on above:Thrombocytopenia (HCC) [D69.6] Procedures DateProcedureProcedure DetailPerforming ClinicianStart: 99-46-9963Tkekr culture Carmne Conley MD Work Phone: Start: 08-88-3026QlpzyiorrvwAtehnh Braun MD Work Phone: Start: 08-89-5109GXUORLXBMMS SKIN LESIONNatalie A Elías GLOBAL PRESIDENT-BUSINESS OFFICE MANAGER Work Phone: Start: 25-23-9156FmxjvluhowphgmmjaescvleqoaNrzwmyp [facility] Start: 25-99-3944Cbink depression screening assessment Mehrdad Aguilar MD Work Phone: Start: 16-60-2944Ibakz 1995 panel - Serum or PlasmaMri Bore/1.5t)Start: 29-14-2675Khd abdomen w/o & w/contrast materialHolly Phillip GLOBAL PRESIDENT.BUSINESS OFFICE MANAGER Work Phone: Start: 34-22-0322BvawxuafekiOydndqe Felter GLOBAL PRESIDENT-BUSINESS OFFICE MANAGER Work Phone: Start: 12-48-0985WlhgfsbhzbdIiwakpn Felter GLOBAL PRESIDENT-BUSINESS OFFICE MANAGER Work Phone: Gallbladder structure (body structure)Yvettedacomaeliot Goode Hand structure (body structure)Mohamaeliot ShaveLogicmaximo HysterectomyMohamad Leonelali Upper limb structure (body structure)Lyxiajohann Goode Urinary bladder structure (body structure)Yvettedacomaeliot ShaveLogicjustinBilna Comment on above:15/20 years ago Plan of Treatment DateCare ActivityDetailAuthorStart: 34-84-6658Tgeooxkil for malignant neoplasm of colonNOMS HealthcareStart: 97-92-2837Lczcm 1996 panel - Serum or PlasmaLipid ScreeningLowry ClinicStart: 55-16-7448JWEEM SCREENLIPID SCREENCletwin city hospital ClinicStart: 68-77-7226Kubpwrvdz vaccinationInfluenza Vaccine (#1)[facility] HealthcareStart: 18-02-3200Snqrmss referralPremier Health Atrium Medical Center Work Phone: Start: 22-56-0037Rfvtx cultureSalem Regional Medical Centertart: 64-97-5893Iwxlwron identified in Urine by CultureUrine [facility] Hospitaltart: 10-12-2024 End: 41-06-4607Akdoqhf encounter gyuirdbji21/07/2025 8:40 AM EDT Office Visit [facility] [address] [facility] [place] [address] Elly Serna MD [address] [facility] [address] [place] [address] ArrivedNOMS CI ENTComment on above:ArrivedStart: 07-21-2024 End: 32-08-3559Hschzcw encounter dljzesjsc40/15/2025 1:10 PM EDT Office Visit [facility] [address] [place] [address] Zuleima Mckinley, GLOBAL PRESIDENT-BUSINESS OFFICE MANAGER [address] [place] [address] [facility]WS DERMStart: 06-09-2024 End: 91-42-1616Lxdtpmw encounter procedureNOMS SWS DERMComment on above:Arrived Start: 04-28-2024 End: 05-20-7364Qjcsnqv encounter yzzfrgeie93/21/2025 3:25 PM EST Office Visit [facility] [address] [place] [address] Zuleima Mckinley, GLOBAL PRESIDENT-BUSINESS OFFICE MANAGER [address] [place] [address] ArrivedNOMS SWS DERMComment on above: ArrivedStart: 85-94-3311UpsatmpcySalem Regional Medical Centertart: 12-08-2023 Influenza vaccinationInfluenza Vaccine (#1)[facility] HealthcareStart: 09-28-2023 DIABETES SCREENDIABETES SCREENLowry ClinicStart: 30-36-8431Svehofwl ScreeningDiabetes ScreeningSt. Charles Hospitaltart: 81-97-2441Bcuvvjlix vaccinationInfluenza Vaccine (#1)[facility]: 27-54-2519Mwffwcz Directive DiscussionAdvance Directive DiscussionSt. Charles Hospitaltart: 01-39-2703Bhiokdxxnq AssessmentDepression AssessmentSt. Charles Hospitaltart: 77-28-4180Qkkynbttg vaccinationINFLUENZA (Season Ended)[facility]tart: 06-31-2133Fpbaz depression screening assessmentDEPRESSION SCREENINGSt. Charles Hospitaltart: 68-45-1509FGRIOPI DIRECTIVE DISCUSSIONADVANCE DIRECTIVE DISCUSSION [facility]: 04-35-6584Ffqlibnnemit Vaccine: 65+ (3 - PPSV23 or PCV20) Pneumococcal Vaccine: 65+ (3 - PPSV23 or PCV20)[facility]: 02-17-2020 Pneumococcal Vaccine: 65+ Years (3 of 3 - PCV20 or PCV21)Pneumococcal Vaccine: 65+ Years (3 of 3 - PCV20 or PCV21)[facility] HealthcareStart: 37-25-3587Twqinibwreaw Vaccine: 65+ Years (3 of 3 - PPSV23 or PCV20)Pneumococcal Vaccine: 65+ Years (3 of 3 - PPSV23 or PCV20)[facility]Start: 29-44-3680Ubmxjqudz for malignant neoplasm of breastMammogramNOMS HealthcareStart: 58-09-7496DLMUYBHHQ AGE 65 AND OVER WITH 5YR LOOKBACK (#1)PNEUMOVAX AGE 65 AND OVER WITH 5YR LOOKBACK (#1) [facility]: 48-10-7664HLEQKTSW VACCINE (2 of 3)SHINGRIX VACCINE (2 of 3)[facility]: 98-19-6644NUSW DENSITYBONE DENSITYOhiohealth Dublin Methodist Hospital Start: 27-35-7660Qdvm Density ScreeningBone Density ScreeningOhiohealth Dublin Methodist Hospital Start: 39-49-9241YMK Vaccine (1 - 1-dose 60+ series)RSV Vaccine (1 - 1-dose 60+ series)[facility]: 39-16-9683HIHDZDUFU (FIT-DNA)COLOGUARD (FIT-DNA) [facility]: 25-89-4005DjftkxvgsbuDLBCQDYIPELFjxxezbgt ClinicStart: 61-75-7977ZSIKSGIQDD CANCER SCREENINGCOLORECTAL CANCER SCREENINGOhiohealth [facility] Hospital Start: 06-81-5523HE COLONOGRAPHYCT COLONOGRAPHYCleHenry County Hospitaltart: 1994 FECAL OCCULT BLOODFECAL OCCULT BLOODSt. Charles Hospitaltart: 1994 SIGMOIDOSCOPYSIGMOIDOSCOPYSt. Charles Hospitaltart: 35-88-4895KhbracfoethDpljtxuhj ClinicStart: 23-62-1134IGWOJNCQH B (1 of 3 - Risk 3-dose series)HEPATITIS B (1 of 3 - Risk 3-dose series)[facility]: 77-04-6528Hyfju microalbumin profileCleHenry County Hospitaltart: 80-55-2716IULOMKSRI C SCREENINGHEPATITIS C SCREENINGCleHenry County Hospitaltart: 69-19-0185RYSLP-19 VACCINE (1)COVID-19 VACCINE (1)[facility]: 88-22-1856LQUSBDJTV A (1 of 2 - Risk 2-dose series) HEPATITIS A (1 of 2 - Risk 2-dose series)[facility]: 07-72-8040Uwtec- 19 Vaccine (#1)Covid-19 Vaccine (#1)[facility]: 92-10-7768Qeuywkiyu for malignant neoplasm of colonNOMS HealthcareAdenosine monophosphate.cyclic [Moles/volume] in Serum or PlasmaPeoples HospitalCefuroxime free [Mass/volume] in Serum or [facility] Comprehensive metabolic 2000 panel - Serum or [facility] GeneralCT Neck W contrast [facility] HospitalPatient Education Hemorrhoids (DC) Know your [facility] Work Phone: Patient referralPremier Health Atrium Medical Center Work Phone: Rheumatoid factor [Units/volume] in Serum or Plasma Peoples HospitalUrine [facility] Urine culturePeoples HospitalXR Sinuses GE 3 ViewsSan Joaquin General Hospital Immunizations Immunization DateImmunizationNotesCare QmyddnojKwegvmub29-52-2554buxrvhkrpkmf polysaccharide vaccine, 23 valentMarcia Conley Other [facility]09-22-2023influenza, high dose seasonal, preservative-freeCarmen Conley Other [employer] Other [id number] virus vaccine, unspecified formulationNatalie Elías GLOBAL PRESIDENT-BUSINESS OFFICE MANAGER Work Phone: [facility]01-19-2022influenza virus vaccine, unspecified formulationNatalie Felter GLOBAL PRESIDENT-BUSINESS OFFICE MANAGER Work Phone: [facility] hospital springfieldOehcmpradq88-88-9459MMGJH-41 Vaccine Moderna - Documentation Purposes OnlyCarmen Conley Other [facility]10-01-2020influenza, high dose seasonal, preservative-freeMehrdad Aguilar MD Work Phone: [facility] HospitalXpfmcu07-95-8871bllksgghl virus vaccine, unspecified formulationMri Bore/1.5t)[facility] HospitalJuoxwp88-66-7097uncqxgjkt virus vaccine, split virus (incl. purified surface antigen)Carmen Conley Other [employer] Bertha Other [id number] virus vaccine, unspecified formulationCarmen Conley MD Work Phone: [facility]10-01-2019influenza, high dose seasonal, preservative-Ambrosio Aguilar MD Work Phone: [facility] HospitalCzmocj82-75-6608lzbnouduf virus vaccine, split virus (incl. purified surface antigen)Carmen Conley Other [employer] Bertha Other 09354246-22-4095jyjjwoatz virus vaccine, unspecified formulationMohamema Goode [phone]-GceyoHolzer Hospital Digestive Zcmama32-44-7116 Seasonal trivalent influenza vaccine, adjuvanted, preservative Ambrosio Aguilar MD Work Phone: [facility] HospitalYbpann85-46-2455ftpdfzdbn nasal, unspecified formulationMehrdad Aguilar MD Work Phone: [facility] HospitalObaonz47-46-9441zuqtxemej virus vaccine, unspecified formulationMohamad Mouchli [phone]-BkgafSelect [facility]ty [facility]09-11-2018 influenza, high dose shukri, preservative-Ambrosio Aguilar MD Work Phone: [facility] HospitalEssjjr92-75-5474wedljpoyu, high dose seasonal, preservative-Ambrosio Aguilar MD Work Phone: [facility] HospitalXxsapr07-16-1010suldhdoya virus vaccine, unspecified formulationMohamad Mouchli [phone]-RgpdbSelect [facility] Specialty [facility]01-02-2017 influenza, injectable, quadrivalent, preservative Ambrosio Aguilar MD Work Phone: [facility] HospitalDabizm34-72-9195pymxnsnnh, high dose shukri, preservative-Ambrosio Aguilar MD Work Phone: [facility] HospitalSnoxoq32-77-8345rzvothkal, high dose shukri, preservative-Ambrosio Aguilar MD Work Phone: [facility] HospitalAkbyef03-40-8869semfopckeaos conjugate vaccine, 13 Marge Aguilar MD Work Phone: [facility] HospitalWwklpb81-87-1807sprhwp vaccine, liveMehrdad Aguilar MD Work Phone: [facility] HospitalBnkugk43-29-5738ajfkeulsb, high dose seasonal, preservative-Ambrosio Aguilar MD Work Phone: [facility] HospitalJlttgq25-65-5789mghfygbhvycg conjugate vaccine, 13 Marge Aguilar MD Work Phone: [facility] HospitalUuvnuc74-99-4746xzpehvoki, injectable, quadrivalent, contains preservativeMehrdad Aguilar MD Work Phone: [facility] HospitalIingna85-18-2800iqflcojlx, high dose shukri, preservative-Ambrosio Aguilar MD Work Phone: [facility] HospitalJoyfyx57-26-3246kovixybzizid polysaccharide vaccine, 23 Marge Aguilar MD Work Phone: [facility] Payers DatePayer CategoryPayerPolicy [id number] Health InsuranceACMC [facility] IN[facility] [id number] 2020-Present [phone] [address] [place] [address] [id number] Health Insurance [id number] 2007MedicareMEDICARE RAILROAD MEDICARE RAILROAD PB ONLY [id number] 2006-Present [phone] [address] [address] [place] [address] [id number] 2007Medicare1.2.840.827787.1.13.159.2.7.3.199519.74104-18-1409Yxcidfy [id number] 2.16840.8.839234.97936450-31-9649Hicfbjd Health [id number] 2.0.1.754422.94223845-65-7602Ewqstjf3622963 2.0.1.767685.3.579.2.94560-23-1075Yewqwll3649015 2.840.1.094656.3.579.[id number] 2.16840.1.634686.3.579.2.6[id number] 2.840.1.990233.3.579.2.39872-99-7836Alkpnce2918999 2.840.1.434563.3.579.2.30133-40-2547Wgzcbfq9002866 2.840.1.865356.3.579.2.22150-96-7963Oobwzrz2892829 2.840.1.319409.3.579.2.19223-63-8067Zhjasfg2428564 2.0.1.089717.3.579.2.01717-42-8190Sjcoffs3458469 2..1.755758.3.579.2.10397-28-8929Vfeghmj050824102 2..1.928476.3.579.2.77861-25-9403Floxgxd345104437 2..1.378690.3.579.2.41828-38-6176Oidttaw071672413 2..1.830654.3.579.2.82235-81-5485Gfehmhc861926649 2..1.647615.3.579.2.39577-50-7901Saeamrs24241192 2..1.678003.3.579.2.58209-57-3564Zhxfsdm11293166 2..1.277722.3.579.2.14098-08-2416Vxnzwsj17298283 2..1.294834.3.579.2.63714-02-5935Avacfoh73564749 2.0.1.091800.3.579.2.77980-22-3318Qowwvlj93353506 2.840.1.201632.3.579.2.92994-37-6634Hdbyerq15702130 2.16.840.1.674321.3.579.2.46885-53-9958Mfpfdyc76547923 2.16.840.1.678679.3.579.2.96400-81-0331Ufqfhpv82945919 2.16.840.1.059928.3.579.2.66735-32-1381Biyehsd41290455 2..840.1.883160.3.579.2.79742-31-6607Qclvqet12096391 2..840.1.082252.3.579.2.46119-58-7325Gmqmxji76337093 2..840.1.110305.3.579.2.35674-90-7913Ewhjpqd62592227 2..840.1.340531.3.579.2.95294-37-6686Abfuhzm26225189 2.0.1.612779.3.579.2.120886-61-1721Pvyupbm4596955 2..0.1.775115.3.579.2.307811-23-8730Pcugktc3470359 2.0.1.351107.3.579.2.029557-51-3142Xmnpyhp6191511 2.0.1.568305.3.579.2.1259MedicareMedicare [id number] [id number]-[id number] 2.0.1.373149.3.579.2.052Clcokti77588708 2.0.1.851626.3.579.2.531 Social History DateTypeDetailFacilityStart: 08-18-2020 End: 51-65-8374Xuwvnkn smoking status NHISNever smoked tobaccoOhiohealth Dublin Methodist Hospital Start: 08-18-2020 End: 64-04-7776Hjozsjc use and exposureSmokeless tobacco non-userSt. Charles Hospitaltart: 08-19-2020 End: 30-50-3794Ariozxm intakeEx-drinker (finding)[facility]: 96-84-8741Khj Assigned At BirthNot on [facility]tart: 08-19-2020 End: 10-01-4251Wwr Assigned At [facility]: 08-19-2020 End: 26-30-4826Wamdwyp of Social functionOhiohealth Dublin Methodist HospitalNational Score (1-100), lower number is lower riskNot on [facility] HospitalTobacc smoking statusNo Smoking Status [facility] Hospitaltart: 01-07-2024 End: 52-38-5679Kkpamffem beverage intakeLifetime non-drinker (finding)[facility]Start: 06-78-7846PiiJvktsgu sex unknown (finding)[facility] Centertart: 52-03-9811Tpv Assigned At BirthFeCommunity Memorial Hospitaltart: 06-29-2024 End: 48-31-2257KdiNtexul (finding)[facility] Medical Equipment Procedure CodeEquipment CodeEquipment Original TextEquipment IdentifierDatesBD Pen Needle Marysol U/F 32G X 4 MMPen Needle, Diabetic (Bd Ultra-Fine Micro Pen Needle) 32 gauge x 1/4 needleStart: 49-58-4901Ysu Needle, Diabetic (Bd Ultra- Fine Micro Pen Needle) 32 gauge x 1/4 needleStart: 74-35-4617Gnr Needle, Diabetic (Bd Ultra-Fine Micro Pen Needle) 32 gauge x 1/4 needleStart: 03-77-8501Xfj Needle, Diabetic (Bd Ultra-Fine Micro Pen Needle) 32 gauge x 1/4 needleStart: 56-18-6694Snp Needle, Diabetic (Bd Ultra-Fine Micro Pen Needle) 32 gauge x 1/4 needleStart: 21-25-8350Jwe Needle, Diabetic (Bd Ultra-Fine Micro Pen Needle) 32 gauge x 1/4 needleStart: 28-81-7114Cfo Needle, Diabetic (Bd Ultra-Fine Micro Pen Needle) 32 gauge x 1/4 needleStart: 45-47-5855Tii Needle, Diabetic (Bd Ultra-Fine Micro Pen Needle) 32 gauge x 1/4 needleStart: 38-28-9979Npj Needle, Diabetic (Bd Ultra-Fine Micro Pen Needle) 32 gauge x 1/4 needleStart: 05-27-2023 Goals DatePatient GoalDesired Activity/State Functional Status EvthMgmhspuayvNpeqtyNaaexyay99-47-8606Axxjiwqoau StatusN/[facility]05-30-2024Functional StatusNoFisher [facility]04-17-2024 Functional StatusN/AFSum[facility] [id number] Functional StatusN/[facility]03-20-2024Functional StatusN/A [facility]03-15-2024Functional StatusN/[facility] Clinical Notes 08-19-2020 to 11-27-2024 Note Date & [id number] Telephone encounter Note* Telephone Encounter - Elly Serna MD - 11/27/2024 8:04 AM EDT [id number] Miscellaneous Notes* Telephone Encounter - Elly Serna MD - 11/27/2024 8:04 AM EDT ok * Telephone Encounter - Kayley Roberts - 11/26/2024 11:37 AM EDT I cld pt to r/s fu appt with Dr Serna because we [facility] that [facility]. Pt said she does not want to r/s w/Dr Serna office now because the doctor up in [facility] told her the swallow test was ok and pt is being sent to doctor for her auto immune problem now documented in this encounterNOMS [id number] Telephone encounter Note* Telephone Encounter - Kayley Roberts - 11/26/2024 11:37 AM EDT I cld pt to r/s fu appt with Dr Serna because we see that [facility]. Pt said she does not want to r/s w/Dr Serna office now because the doctor up in [facility] told her the swallow test was ok and pt is being sent to doctor for her auto immune problem now [id number] NoteHospital Medicine Discharge Summary Final Discharge Diagnosis: # [...] She also endorses increased urinary frequency. At [facility] labs were completed showing WBC 12.5, RBC [...] to elevated bilirubin level, patient was transferred [facility] for possible MRCP/ERCP. # Right upper quadrant [...] home Ozempic. # Fibromyalgia. # Severe PCM. Dear MD Yael, Ivelisse is advised to follow up with [...] Medications These medications were sent to [facility] - [place], [place] - [address], [facility] [address] traMADol 50 mg tablet Ivelisse is allergic [...] 136 < > 136 (more content not included)...[facility]07-29-2025 Note Patient: Ivelisse Gee Procedure Summary Date: 11/03/24 Room / Location: [facility] Anesthesia Start: 1256 Anesthesia Stop: 1323 [...] PACU per anesthesia protocol. No notable events documented.[facility]07-29-2025 Note Patient: Ivelisse Gee Procedure Summary Date: 11/03/24 Room / Location: [facility] Endoscopy Anesthesia Start: 1256 Anesthesia Stop: Procedure: EGD Diagnosis: Right upper quadrant abdominal pain Gastroesophageal reflux disease, unspecified whether esophagitis present Dysphagia, unspecified type Scheduled Providers: Vito Pavon MD; MEDARDO Beltran; Franny Navarro MD Responsible Provider: Vito Pavon MD Anesthesia Type: MAC ASA Status: 3 Anesthesia Post Transport Note Transport to: [place] PACU O2 Route: room air Patient Monitor: direct observation Transport: uneventful Patient condition is: stableUnFulton County Health Center07-29-2025 Note Patient: Ivelisse Gee Procedure Information Date/Time: 11/03/24 1230 Scheduled providers: Vito Pavon MD; MEDARDO Beltran; Franny Navarro MD Procedure: EGD Location: [facility] Endoscopy Relevant Problems Cardio ECHO 2017 Normal left ventricular size and systolic function. [...] risks discussed with patient. Plan discussed with MEDARDO. Additional Equipment RequestsUnFulton County Health Center07-28-2025 Note Poor oral intake, unintentional weight loss. On dietitian.[facility]07-28-2025 NoteCT scan of the abdomen did not show [...] cholecystectomy about 2 years ago. Consult general surgery.[facility]07-28-2025 Note- Continue home medsUniversHolzer Health System07-28-2025 Note-Continue levothyroxineUnFulton County Health Center07-28-2025 NoteGI on board. EGD scheduled tomorrow on 11/03/2024. Cleared for regular diet by speech.[facility]07-28-2025 Note-Continue PPIUnFulton County Health Center07-28-2025 Note-Continue lipitorUnFulton County Health Center07-28-2025 NoteISS, ACHSUniUniversity Hospitals Ahuja [facility] 11-02-2024 NoteOn IV Rocephin. Continues to experience dysuria.[facility]07-28-2025 NoteHospital Medicine Daily Progress Note - 11/02/2024 2:13 PM; Room: [address] [place] [address] Admission: 10/29/2024 11:59 PM; Length of stay: 4 days THE HOSPITALIST TEAM PREFERS TO USE [employer] FOR NON-URGENT COMMUNICATION 7AM-7PM. IF I DO NOT RESPOND WITHIN 20 MINUTES OR URGENT MATTERS, PLEASE CALL THROUGH THE [employer]. FROM 7PM-7AM, PLEASE PAGE [phone](COVR). Code Status: Full Code Barriers to Discharge: [...] complication, without long-term current use of insulin ([facility]) ISS, ACHS Acquired hypothyroidism -Continue levothyroxine HLD [...] advance diet as medically feasible, textures per CHILD & ADOLESCENT PSYCHIATRIST pending swallow study, vitamin/medication recommendations, check weight, RD to change supplement Nutrition Goals: intake > 75% meals, intake > 75% supplements, maitain visceral protein Malnutrition Attestation: I attest to the following: I have personally seen this patient. The patient has been assessed for malnutrition as documentation above, and based on the criteria set by the Academy of Nutrition and Dietetics and the [place] Society of Enteral and Parenteral Nutrition, meets [...] pantoprazole, 40 mg, int (more content not included)...[facility]07-28-2025 NoteGastroenterology/Hepatology Progress Note IDENTIFYING DATA PATIENT: Ivelisse Gee [...] Results from last 7 days Lab Units 11/02/247 11/01/24 0501 10/31/24 0416 SODIUM mmol/L 136 137 136 POTASSIUM mmol/L 3.8 3.8 4.3 CHLORIDE mmol/L 101 103 104 BUN mg/dL 9 10 12 CREATININE mg/dL 0.86 0.88 0.93 EGFR mL/min/1.73m*2 70.4 68.5 64.1 GLUCOSE mg/dL 126* 124* 99 LFTs: Results from last 7 days Lab Units 11/02/2443611/01/24 0501 10/31/24 0416 BILIRUBIN TOTAL mg/dL 1.0 0.8 1.0 BILIRUBIN DIRECT mg/dL 0.2 0.2 0.3* ALK PHOS U/L 71 65 63 AST U/L 25 22 22 ALT U/L 26 25 24 ALBUMIN g/dL 4.3 4.1 3.9 TOTAL PROTEIN g/dL 7.1 6.7 6.3 B12/Folate/Iron studies: No results found for: [id number] , FOLATE , IRON , TIBC , UIBC , IRONSAT , FERRITIN Viral Hepatitis No results found for: HEPAIGM , HAV , HEPBSAG , HEPBSAB , HEPBEAB , HEPBIGM , HEPBCAB , HEPBCOREAB , HBVNAT , HCVSCR , HEPCAB , HCVNAT , HCVPCR , HCVTMA Liver workup No results found for: TL , SMOOTHMUSCAB , CERULOPLSM , [id number] , TTGA , IGA , TSH , [...] who presented as a direct admit from [facility] due to acute onset abdominal pain and elevated LFTs. At OSH, labs revealed WBC 12.5, TB 1.6. CT A/P was unremarkable aside from urinary bladder wall thickening and moderate constipation. Patient was transferred to [facility] for further evaluation and management. Assessment [...] liquids Patient reports gradual (more content not included)...[facility]07-28-2025 NoteSpeech Language Pathology Modified Barium Swallow Study General Information Ordering [...] at 90 degrees for all PO intake CHILD & ADOLESCENT PSYCHIATRIST plan: No further CHILD & ADOLESCENT PSYCHIATRIST intervention warranted. CHILD & ADOLESCENT PSYCHIATRIST to sign off. Please re-consult as needed. [...] who presented as a direct admit from [place] [facility] due to acute onset abdominal pain [...] of all information and stated no further questions.[facility]07-27-2025 NotePhysician Clarification Please review the following and provide your [...] been confirmed. Please refer to documentation by plant pathology teacher which I am in agreement with This documentation will become part of the patient's medical record.[facility]07-27-2025 NoteGI on board. Swallow evaluation pending. [facility]07-27-2025 Note-Continue PPIUnFulton County Health Center07-27-2025 NotePoor oral intake, unintentional weight loss. On dietitian.[facility]07-27-2025 Note-Continue home medsUniUniversity Hospitals Ahuja Medical Center07-27-2025 NoteOn IV Rocephin. Continues to experience dysuria. Started on phenazopyridineUnFulton County Health Center07-27-2025 NoteISS, ACHSUniversHolzer Health System07-27-[address] scan of the abdomen did not show pancreatitis or significant intra-abdominal pathology but mild intrahepatic ductal dilation. No obvious mass was seen on CT abdomen pelvis. MRCP was ordered in consultation with GI. MRCP - unclear intrahepatic biliary ductal dilation along with common hepatic duct dilatation. No choledocholithiasis or cholecystitis. Awaiting GI recommendationUnFulton County Health Center07-27-2025 Note-Continue home medsUniUniversity Hospitals Ahuja Medical Center07-27-2025 Note-Continue levothyroxineUnFulton County Health Center07-27-2025 Note-Continue lipitorUnFulton County Health Center 11-01-2024 NoteHospital Medicine Daily Progress Note - 11/01/2024 12:17 PM; Room: [address] [place], [place] [address]- Admission: 10/29/2024 11:59 PM; Length of stay: 3 days THE HOSPITALIST TEAM PREFERS TO USE [employer] FOR NON-URGENT COMMUNICATION 7AM-7PM. IF I DO NOT RESPOND WITHIN 20 MINUTES OR URGENT MATTERS, PLEASE CALL THROUGH THE [employer]. FROM 7PM-7AM, PLEASE PAGE [phone](COVR). Code Status: Full Code Barriers to Discharge: [...] advance diet as medically feasible, textures per CHILD & ADOLESCENT PSYCHIATRIST pending swallow study, vitamin/medication recommendations, check weight, RD to change supplement Nutrition Goals: intake > 75% meals, intake > 75% supplements, maitain visceral protein Malnutrition Attestation: I attest to the following: I have personally seen this patient. The patient has been assessed for malnutrition as documentation above, and based on the criteria set by the Academy of Nutrition and Dietetics and the [place] Society of Enteral and Parenteral Nutrition, meets [...] 0501 10/31/24 0416 10/30/24 (more content not included)...[facility]07-26-2025 Note Poor oral intake, unintentional weight loss. On dietitian.[facility]07-26-2025 Note-Continue PPIUnFulton County Health Center 10-31-2024 NoteCT scan of the abdomen did not show [...] planned for endoscopic ultrasound and ERCP on Saturday.[facility]07-26-2025 Note-Continue levothyroxineUnFulton County Health Center07-26-2025 Note-Continue home medsUniversHolzer Health System 10-31-2024 NoteOn IV Rocephin. Continues to experience dysuria. Started on phenazopyridineUnFulton County Health Center07-26-2025 JAEL Eisenberg [facility]07-26-2025 NoteGI on board. Swallow evaluation pending.[facility]07-26-2025 Note-Continue lipitorUnFulton County Health Center07-26-2025 NoteHospital Medicine Daily Progress Note - 10/31/2024 12:47 PM; Room: [address] [place] [address] Admission: 10/29/2024 11:59 PM; Length of stay: 2 days THE HOSPITALIST TEAM PREFERS TO USE [employer] CHAT FOR NON-URGENT COMMUNICATION 7AM-7PM. IF I DO NOT RESPOND WITHIN 20 MINUTES OR URGENT MATTERS, PLEASE CALL THROUGH THE [employer]. FROM 7PM-7AM, PLEASE PAGE [phone](COVR). Code Status: Full Code Barriers to Discharge: [...] advance diet as medically feasible, textures per CHILD & ADOLESCENT PSYCHIATRIST pending swallow study, vitamin/medication recommendations, check weight, RD to change supplement Nutrition Goals: intake > 75% meals, intake > 75% supplements, maitain visceral protein Malnutrition Attestation: I attest to the following: I have personally seen this patient. The patient has been assessed for malnutrition as documentation above, and based on the criteria set by the Academy of Nutrition and Dietetics and the [place] Society of Enteral and Parenteral Nutrition, meets [...] Pertinent Investigations Hematology: R (more content not included)...[facility]07-26-2025 NoteInitial Gastroenterology/Hepatology Consultation Note IDENTIFYING DATA PATIENT: Ivelisse Gee ADMIT DATE: 10/29/2024 TIME OF EVALUATION: 10/31/2024 11:09 AM Reason for Consult: Abdominal pain Admitting Physician: Shaikh Sheridan MD HISTORY OF PRESENT ILLNESS Ivelisse Gee is a 74 y.o. female with PMHx of HTN, HLD, T2DM, hypothyroidism, GERD, fibromyalgia, who presented as a direct admit from [place] [facility] due to acute onset abdominal pain and elevated LFTs. At OSH, labs revealed WBC 12.5, TB 1.6. CT A/P was unremarkable aside from urinary bladder wall thickening and moderate constipation. Patient was transferred to [facility] for further evaluation and management. Patient [...] BMI 27.22 kg/ (more content not included)... [facility]07-26-2025 NoteInitial Gastroenterology/Hepatology Consultation Note IDENTIFYING DATA PATIENT: Ivelisse Gee ADMIT DATE: 10/29/2024 TIME OF EVALUATION: 10/31/2024 11:09 AM Reason for Consult: Abdominal pain Admitting Physician: Shaikh Sheridan MD HISTORY OF PRESENT ILLNESS Ivelisse Gee is a 74 y.o. female with PMHx of HTN, HLD, T2DM, hypothyroidism, GERD, fibromyalgia, who presented as a direct admit from [place] [facility] due to acute onset abdominal pain and elevated LFTs. At OSH, labs revealed WBC 12.5, TB 1.6. CT A/P was unremarkable aside from urinary bladder wall thickening and moderate constipation. Patient was transferred to [facility] for further evaluation and management. Patient [...] BMI 27.22 kg/ (more content not included)... [facility]07-26-2025 NoteCase was discussed with the ANITA on 10/29/2024. I agree with the history, physical, assessment, and plan of care. I discussed the findings and therapeutic plan. I agree with the documentation, except for any updates below. Gary Donnelly MDUnFulton County Health Center07-25-2025 Note10/30/24 1650 Admission Assessment Questions Verify insurance with [...] Interested Does the patient have a case worker assigned to them through their insurance? No [...] pending. IVFs for HUY. From home with spouse.[facility]07-25-2025 NoteHistory: Oropharyngeal dysphagia Exam: Swallow motility study Procedure: Patient's swallowing mechanism observed in conjunction with speech pathology with multiple consistencies of barium. Air Kerma: 5.95 mGY. Findings: There is no aspiration or laryngeal penetration or significant residual. Incidental prominent cricopharyngeus. IMPRESSION: Impression: 1. No aspiration See Speech Pathology report for more details and recommendations. Electronically signed: Edilberto Jenkins.[facility] 10-30-2024 NoteAdult Nutrition Assessment: Name: Ivelisse Gee Date: 1950 Date of [...] Value Date/Time BUN 13 10/30/2024420 CREATININE 0.99 10/30/20241 NA 137 10/30/2024420 K 3.4 (L) 10/30/2024420 PHOS 2.8 10/30/2024149 MG 2.0 10/30/2024 015 HGB 13.1 10/30/2024420 WBC 9.23 10/30/2024 042 Allergies: Allergies[2] Nutrition Problems: Swallowing Assessment: Hx [...] ideal body weight (47.7 kg) Calorie needs: 0786-3634 kcals/day based on 25-30 kcal/kg Protein needs: [...] advance diet as medically feasible, textures per CHILD & ADOLESCENT PSYCHIATRIST pending swallow study, vitamin/medication recommendations, check weight, [...] To reach the Clinical Dietitian, please utilize [employer] chat Saturday-Saturday from 8AM-4PM or call extension [phone]. For weekends (Saturday-Saturday) and holidays, the Clinical Dietitian can be reached via pager ([phone]) from 9AM-3PM. The Clinical Nutrition Department is unable to respond to [employer] chat messages on Sundays and hols. [1] Past Medical History: Diagnosis Date Arthritis Diabetes mellitus (CMS/HCC) Disease of thyroid gland [2] Not on FileChildren's Hospital for Rehabilitation07-25-2025 Note-Continue lipitorUnFulton County Health Center07-25-2025 Note-BUN 11, Creatinine 1.05, GFR 50 -IV fluids, repeat BMP pendingUnFulton County Health Center07-25-2025 Note -Continue home medsUniversHolzer Health System07-25-2025 Note-Continue PPIUnFulton County Health Center07-25-2025 Note-Continue levothyroxine [facility]07-25-2025 NoteISS, ACHSUniUniversity Hospitals Ahuja Medical Center07-25-2025 Note-CT of the abdomen was completed showing no acute inflammatory changes, cholecystectomy changes, urinary bladder wall thickening, moderate constipation. -Hyperbilirubinemia with total bili at 1.6 -NPO for MRCP/ERCP -GI consult -Patient also complaining of difficulty swallowing, will consult speech therapy, possible EGD neededChildren's Hospital for Rehabilitation07-25-2025 Note-Begin rocephinChildren's Hospital for Rehabilitation07-25-2025 NoteHospital Medicine History and Physical 10/30/2024 1:51 AM THE HOSPITALIST TEAM PREFERS TO USE [employer] FOR NON-URGENT COMMUNICATION 7AM-7PM. IF I DO NOT RESPOND WITHIN 20 MINUTES OR URGENT MATTERS, PLEASE CALL THROUGH THE [employer]ER. FROM 7PM-7AM, PLEASE PAGE [phone](COVR). Chief Complaint Direct admission from [facility] with abdominal pain History of Present Illness Ivelisse eGe is an 74 y.o. female who came [...] She also endorses increased urinary frequency. At [facility] labs were completed showing WBC 12.5, RBC [...] to elevated bilirubin level, patient was transferred [facility] for possible MRCP/ERCP. Review of System and [...] complication, without long-term current use of insulin ([facility]) ISS, ACHS Acquired hypothyroidism -Continue levothyroxine HLD [...] this hospital stay by a member of [facility]. Past M (more content not included)...[facility] 10-29-2024 Evaluation note* Diagnosis Onset Date Resolution Status Admit Date Hoarseness of voice acuteJuly 2024 1:45pmRUQ painacuteJuly 2024 1:45pmTrouble swallowing acuteJuly 2024 1:45pmAutoimmune disorderacuteAugust 2024 10:43am Epigastric abdominal painacuteAugust 2024 10:43amFibromyalgiaacuteAugust 2024 10:43amBursitis of right shoulderacuteAugust 2024 11:10am Inflammatory arthritisacuteAugust 2024 11:10amScalp psoriasisacuteAugust 2024 11:10amFibromyalgiaacuteSeptember 2024 9:42amHigh risk medication useacuteSeptember 2024 9:42amSeronegative rheumatoid arthritis of multiple sitesacuteSeptember 2024 9:42am [facility] Work Phone: 1(891) 548-641207-16-2025 Telephone encounter Note* Telephone Encounter - Elly Serna MD - 10/21/2024 11:20 AM EDT Send order for B esophagram to [facility]. [id number] Miscellaneous Notes* Telephone Encounter - Elly Serna MD - 10/21/2024 11:20 AM EDT Send order for B esophagram to [facility]. [facility] does not do fluoroscopy documented in this encounterMercy hospital [id number] Evaluation note* Diagnosis Onset Date Resolution Status Admit Date Fibromyalgia acuteJune 2024 10:26amHoarseness of voiceacuteJune 2024 10:26am InsomniaacuteJune 2024 10:26amThyroid diseaseacuteJune 2024 10:26am Trouble swallowingacuteJune 2024 10:26amType 2 diabetes mellitus with hyperglycemiaacuteJune 2024 10:26amHoarseness of voiceacuteJuly 2024 1:45pmRUQ painacuteJuly 2024 1:45pmTrouble swallowingacuteJuly 2024 1:45pmAutoimmune disorderacuteAugust 2024 10:43amEpigastric abdominal pain acuteAugust 2024 10:43amFibromyalgiaacuteAugust 2024 10:43amBursitis of right shoulderacuteAugust 2024 11:10amInflammatory arthritisacuteAugust 2024 11:10amScalp psoriasisacuteAugust 2024 11:10amFibromyalgiaacute December 18, 2024 9:42amHigh risk medication useacuteSept2024 9:42amSeronegative rheumatoid arthritis of multiple sitesacuteSept2024 9:42am [facility] Work Phone: 1(203) 559-706206-05-2025 Evaluation note* Diagnosis Onset Date Resolution Status Admit Date Fibromyalgia acuteJune 2024 10:50amSinusitis, acute maxillaryacuteJune 2024 10:50am Type 2 diabetes mellitus with hyperglycemiaacuteJune 2024 10:50am FibromyalgiaacuteJune 2024 10:26amHoarseness of voiceacuteJune 2024 10:26amInsomniaacuteJune 2024 10:26amThyroid diseaseacuteJune 2024 10:26amTrouble swallowingacuteJune 2024 10:26amType 2 diabetes mellitus with hyperglycemiaacuteJune 2024 10:26am [facility] Work Phone: 1(930) 789-261006-05-2025 Evaluation note* Diagnosis Onset Date Resolution Status Admit Date Fibromyalgia acuteJune 2024 10:50amSinusitis, acute maxillaryacuteJune 2024 10:50am Type 2 diabetes mellitus with hyperglycemiaacuteJune 2024 10:50am FibromyalgiaacuteJune 2024 10:26amHoarseness of voiceacuteJune 2024 10:26amInsomniaacuteJune 2024 10:26amThyroid diseaseacuteJune 2024 10:26amTrouble swallowingacuteJune 2024 10:26amType 2 diabetes mellitus with hyperglycemiaacuteJune 2024 10:26amHoarseness of voiceacuteJuly 2024 1:45pmRUQ painacuteJuly 2024 1:45pmTrouble swallowingacuteJuly 2024 1:45pm [facility] Work Phone: 1(555) 504-777106-05-2025 Evaluation note* Diagnosis Onset Date Resolution Status Admit Date Fibromyalgia acuteJune 2024 10:50amSinusitis, acute maxillaryacuteJune 2024 10:50am Type 2 diabetes mellitus with hyperglycemiaacuteJune 2024 10:50am FibromyalgiaacuteJune 2024 10:26amHoarseness of voiceacuteJune 2024 10:26amInsomniaacuteJune 2024 10:26amThyroid diseaseacuteJune 2024 10:26amTrouble swallowingacuteJune 2024 10:26amType 2 diabetes mellitus with hyperglycemiaacuteJune 2024 10:26amHoarseness of voiceacuteJuly 2024 1:45pmRUQ painacuteJuly 2024 1:45pmTrouble swallowingacuteJuly 2024 1:45pmAutoimmune disorderacuteAugust 2024 10:43amEpigastric abdominal painacuteAugust 2024 10:43amFibromyalgiaacuteAugust 2024 10:43am Bursitis of right shoulderacuteAugust 2024 11:10amInflammatory arthritis acuteAugust 2024 11:10am [facility] Work Phone: 1(169) 951-728903-24-2025 Evaluation note* Diagnosis Onset Date Resolution Status Admit Date Depression with anxiety acuteMarch 2024 1:54pmInsomniaacuteMarch 2024 1:54pmType 2 diabetes mellitus with hyperglycemiaacuteMarch 2024 1:54pmBronchitisinactiveMarch 2024 1:54pm [facility] Work Phone: 1(291) 328-145203-04-2025 History of Present illness Narrative* Zuleima Mckinley, DEMARCUS-BUSINESS OFFICE MANAGER - 06/09/2024 2:20 PM EST Images from [...] Next Visit: 6 weeks documented in this encounterMercy hospital [id number] Evaluation note* Diagnosis Onset Date Resolution Status Admit Date Depression with anxiety acuteJanuary 2024 9:02amInsomniaacuteJanuary 2024 9:02amType 2 diabetes mellitus with hyperglycemiaacuteJanuary 2024 9:02am [facility] Work Phone: 1(798) 975-916901-21-2025 History of Present illness Narrative* MELISSA Montenegro [...] 6 weeks, follow up documented in this [facility]11-20-2024 [place] [address] Colonoscopy Procedure Report Signed Patient: Ivelisse Gee MR#: [id number] : 1950 Acct:[id number] Age/Sex: 73 / F Adm Date: 4 Loc: Room: Type: [facility] Attending Dr: Randa Christine MD Copies to: [...] slowly withdrawnwith the findings as below. [place] bowel prep score was good. Findings: Cecum: [...] M.D. Documented By: Randa Christine MD 02/26/24 1254 Signed By: 02/26/24 1255 [facility]11-20-2024 [place] [address] Gastroenterology H&P Signed Patient: Ivelisse Gee MR#: [id number] : 1950 Acct:[id number] Age/Sex: 73 / F Adm Date: 4 Loc: Room: Type: [facility] Attending Dr: Randa Christine MD Copies to: [...] Christine M.D. Documented By: Randa Christine MD 02/26/243 Signed By: 02/26/24 1254 [facility]10-01-2024 History of Present illness Narrative * Zuleima Aiden Mckinley, GLOBAL PRESIDENT-BUSINESS OFFICE MANAGER - 01/07/2024 1:10 PM EDT Follow up [...] limited to risks of scarring, darker or informatica mdm architect pigmentary changes, recurrence, incomplete removal and infection. [...] for any new/changing lesions documented in this encounterMercy hospital [id number] Evaluation note* Diagnosis Onset Date Resolution Status Admit Date Fatigue acuteSeptember 2023 11:24amHypertensionacuteSeptember 2023 11:24am Type 2 diabetes mellitus with hyperglycemiaacuteSept2023 11:24am Elevated lipaseacuteSeptember 2023 10:37amGroup B streptococcal UTIacute December 26, 2023 10:37amTremoracuteSeptember 2023 10:37amCervical lymphadenitisacuteOct2023 10:21amChronic constipationacuteOctober 2023 10:21amElevated lipaseacuteOctober 2023 10:21amFamily history of colon canceracuteOct2023 10:21amGroup B streptococcal UTIacuteOct2023 9:48amChronic constipationacuteOct2023 11:32amPanic attacksacute February 05, 2024 11:32amSecond degree burn of right handacuteOct2023 11:32amSerotonin syndromeacuteOct2023 11:32amType 2 diabetes mellitus with hyperglycemiaacuteOct2023 11:32am [facility] Work Phone: 1(990) 545-952403-27-2024 Note [id number]#[email or web address] [facility] Hospital Discharge instructions Patient Education 07/02/2023 09:33:43 Endoscopy, Care After Procedure [facility] Endoscopy Care After Procedure Please read the instructions outlined below and refer to this sheet in the next few weeks. These discharge instructions provide you with general information on caring for [facility] Your doctor may also give you [...] blood. Document Released: 11/06/2004 Document Re-Released: 09/16/2006 Qzzr Patient Information [employer]. 07/02/2023 09:33:36 Esophagitis Esophagitis Esophagitis is inflammation [...] Follow these instructions at home: Medicines Take djab-wxk-eetuxjx and prescription medicines only as told by [...] powder, vinegar, hot sauces, and barbecue sauce. ?Joffre fruit juices and citrus fruits, such as oranges, bentley, and limes. ?Tomato-based foods, such as red sauce, chili, salsa, and pizza with red sauce. ?Fried and fatty foods, such as donuts, north korean fries, potato chips, and high-fat dressings. [...] provider. Document Revised: 10/03/2020 Document Reviewed: 10/03/2020 [employer] Patient Education 2022 [employer]. 07/02/2023 09:33:31 Hiatal Hernia Hiatal Hernia A [...] reduce GERD symptoms. Medicines. These may include: ?Wmvn-pok-cxdtjdn antacids. ?Medicines that make your stomach empty [...] may include: ?Fatty foods, like fried foods. ?Joffre fruits, like oranges or lemon. ?Other foods [...] Do not drink alcohol. General instructions Take ixwu-foz-kaqgntj and prescription medicines only as told by [...] provider. Document Revised: 05/22/2022 Document Reviewed: 05/22/2022 [employer] Patient Education 2022 [employer]. Follow Up Care 06/26/2023 13:24:26 With:Rupa CERRATO, ANTIONETTE Luna, [facility] Address: When: Unknown Comments:Call for any problems. The office will reach out in about one week from procedure date. [facility]03-26-2024 NoteEndoscopy Care After Procedure Please read the instructions outlined below and refer to this sheet in the next few weeks. These discharge instructions provide you with general information on caring for yourself [facility]. Your doctor may also give you [...] Document Re-Released: 09/16/2006 [employer]Care? Patient Information ?2009 [employer]. Gastroenterology Esophagitis Esophagitis is inflammation of the [...] these instructions at home: Medicines ? Take sbfa-yvd-lwtlprx and prescription medicines only as told by your health care provider. ? Do not take aspirin, ibuprofen, or other NSAIDs unless your health care provider told you to do so. ? If you have trouble taking pills: ? Use a pill splitter to decrease the size of the pi (more content not included)...[facility]03-12-2024 NoteEchocardiology Procedure Exam Date/Time Accession # Ordering Dr. Macedo Transthoracic 06/18/2023 08:41 EDT [id number] YAEL CERRATO, CARMEN Complete CPT code 87619 [id number] Reason for Exam (Echo Transthoracic Complete) R07.9 Chest pain, unspecified Report [facility] [address] [place] [address] Adult Echocardiogram Report Name: IVELISSE GEE Study Date: 06/18/2023 06:57 AM BP: 117/66 mmHg Patient Location: FT [facility] HR: 71 : 1950 Gender: Female Height: 60 in Age: 72 yrs Ethnicity: T Weight: 155 lb Reason For Study: R07.9 Chest pain, unspecified BSA: 1.7 m2 History: HTN, DM, I have a leaky valve Ordering Physician: CARMEN CONLEY Referring Physician: CARMEN CONLEY Performed By: Katya Ho, [facility] Interpretation Summary [...] cm2 E/E' Lat: 12.1 Med Peak E' Crari: 5.6 cm/sec E/E' Med: 15.2 TR max carri: 237.7 cm/sec RAP systole: 3.0 mmHg AV VR: 0.48 TR max P.6 mmHg RVSP(TR): 25.6 mmHg FINAL REPORT Dictated: 06/18/2023 6:57 am Lucho GOINS MD Signed (Electronic Signature): 06/18/2023 12:25 pm Signed by: Lucho GOINS MD Transcribed by: KARYNA Technologist: [facility]02-06-2024 Evaluation note* Encounter Date Diagnosis Assessment Notes Treatment Notes Treatment Clinical Notes May, Type 2 diabetes mellitus with hy perglycemia (ICD-10 - E11.65) [employer] Other 12-27-2023 Evaluation note* Encounter Date Diagnosis Assessment Notes Treatment Notes Treatment Clinical Notes Mar, Type 2 diabetes mellitus with hy perglycemia (ICD-10 - E11.65) [employer] Other 12-26-2023 Evaluation note* Encounter Date Diagnosis Assessment Notes Treatment Notes Treatment Clinical Notes Mar, Type 2 diabetes mellitus with hy perglycemia (ICD-10 - E11.65) [employer] Other 12-14-2023 Evaluation note* Encounter Date Diagnosis Assessment Notes Treatment Notes Treatment Clinical Notes Mar, Panic attack (ICD-10 - F41.0) [employer] Other 12-14-2023 Evaluation note* Encounter Date Diagnosis Assessment Notes Treatment Notes Treatment Clinical Notes Mar, Panic attack (ICD-10 - F41.0) Reviewed OARRS. Pt requests refill that she uses sparingly. Mar,Type 2 diabetes mellitus with hyperglycemia (ICD-10 - [...] to continue with above medication as directed. [employer] Other 10-19-2023 Evaluation note* Encounter Date Diagnosis Assessment Notes Treatment Notes Treatment Clinical Notes Jan, COVID-19 (ICD-10 - U07.1) Finish course of Paxlovid. advised to hold atorvastatin while she is taking it. Patient understands to go to ER if symptoms worsen. Jan,yspnea, unspecified (ICD-10 - R06.00)Discussed that steroids will increase her blood sugar. Her heart rate is elevated at this time as well steroid should improve her fatigue but it could increase her heart rate patient is aware of sideeffects and agrees to start at a medium dose. Also added albuterol to help with her shortness of breath. Reviewed normal chest x-ray on January 17 at [facility]. [employer] Other 09-22-2023 Evaluation note* Encounter Date Diagnosis [...] reviewed and amended by provider signed below. Dec,Hypothyroidism (ICD-10 - E03.9)Chronic problem, check lab, continue dose. Dec,Elevated liver enzymes (ICD-10 - R74.8)check lab Dec,Type 2 diabetes mellitus with hyperglycemia (ICD-10 - E11.65) Patients A1C is well controlled at this time. Educated patient on the importance of meal content and meal timing. Patient is to have a snack at bedtime to avoid Hypoglycemic episodes. Increase daily exercise routine and watch diet. Continue with above medication and we will continue to monitor every 3 months. Dec,yslipidemia (ICD-10 - E78.5)Patient to continue to watch diet and increase exercise routine. Remain active as tolerated and we will continue to monitor with routine blood work. Patient is to continue with above medication as directed. Dec,Hypertension, unspecified type (ICD-10 - I10)Blood pressure remains well controlled at this time. Denies cardiac symptoms. Shows no signs or symp toms or poor control. Patient to continue with above medication and we will continue to monitor. Advised to pay attention to body and symptoms. Any developing patterns. Stay well hydrated. 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 Pt states symptoms are well controlled on present med Dec,Fibromyalgia (ICD-10 - M79.7) Dec,OtherWe have discussed the necessity of following up with PCP [...] and physical health today. We have discussed appr opriate F/U schedule as well as blood work and vaccinations that apply. All questions answered and patient is sent home pleased, without concerns. [employer] Other 06-29-2023 Evaluation note* Encounter Date Diagnosis Assessment Notes Treatment Notes Treatment Clinical Notes Sep, Type 2 diabetes mellitus with hy perglycemia (ICD-10 - E11.65) [employer] Other 05-03-2023 Evaluation note* Encounter Date Diagnosis Assessment Notes Treatment Notes Treatment Clinical Notes August, RLQ abdominal pain (ICD-10 - R10 .31) [employer] Other 05-02-2023 Evaluation note* Encounter Date Diagnosis Assessment Notes Treatment Notes Treatment Clinical Notes August, RLQ abdominal pain (ICD-10 - R10 .31) Acute pain - assess with labs, CT. Discussed differential with pt. [employer] Other 03-15-2023 Evaluation note* Encounter Date Diagnosis Assessment Notes Treatment Notes Treatment Clinical Notes Jun, Fibromyalgia (ICD-10 - M79.7) Handicap placard prescription written. Reviewed medications continue as prescribed. 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 She takes trazodone at bedtime, lorazepam as needed for panic attacks, and has a prescription for tizanidine. Rather than adding more pharmaceuticals, I advise either melatonin or taking her tizanidine when she goes to bed to help her pain in the night and help her sleep better. Jun,Immune deficiency disorder (ICD-10 - D84.9)Encouraged patient to call the office that she requested to be seen at as her information was sent l week. [employer] Other 03-07-2023 Evaluation note* Encounter Date Diagnosis Assessment Notes Treatment Notes Treatment Clinical Notes Jun, Dysuria (ICD-10 - R30.0) Jun,Type 2 diabetes mellitus with hyperglycemia (ICD-10 - E11.65) Jun,History of sepsis (ICD-10 - Z86.19)Referral placed to Transfer Specialist as was suggested by Dr. William. [employer] Other 03-07-2023 Evaluation note* Encounter Date Diagnosis Assessment Notes Treatment Notes Treatment Clinical Notes Jun, Dysuria (ICD-10 - R30.0) Jun,Type 2 diabetes mellitus with hyperglycemia (ICD-10 - E11.65)Stop Januvia. Start ozempic for improved glucose control. Jun,History of sepsis (ICD-10 - Z86.19)Referral placed to Transfer Specialist as was suggested by Dr. William. [employer] Other 02-02-2023 Evaluation note* Encounter Date Diagnosis Assessment Notes Treatment Notes Treatment Clinical Notes May, EDU (generalized anxiety disorde r) (ICD-10 - F41.1) [employer] Other 02-02-2023 Evaluation note* Encounter Date Diagnosis Assessment Notes Treatment Notes Treatment Clinical Notes May, Panic attack (ICD-10 - F41.0) Discussed stress, medication and health issues. Will refill med started by ER and monitor symptoms. May,Type 2 diabetes mellitus with hyperglycemia (ICD-10 - E11.65)add medication to improve glucose. Pt agrees to consider further referral if needed. [employer] Other 01-13-2023 Evaluation note* Encounter Date Diagnosis Assessment Notes Treatment Notes Treatment Clinical Notes Apr, Elevated liver enzymes (ICD-10 - R74.8) Will recheck. Discussed normal Hep B and Hep C tests in 2019. Discussed potential referral to GI ifneeded. Apr,Type 2 diabetes mellitus with hyperglycemia (ICD-10 - E11.65)agrees to hold metformin and increase ozempic to 0.5mg weekly Apr,Myalgia (ICD-10 - M79.10)Referral to rheum and appropriate labs next week Apr,acteremia (ICD-10 - R78.81)recheck w blood culture next week Apr,Thrombocytopenia (ICD-10 - D69.6)chronic - will recheck w CBC Apr,cute cystitis without hematuria (ICD-10 - N30.00)Finishing antibiotic tomorrow, will check that it cleared. [employer] Other 01-09-2023 Evaluation note* Encounter Date Diagnosis Assessment Notes Treatment Notes Treatment Clinical Notes Apr, Sepsis due to Staphylococcus (IC D-10 - A41.2) Ivelisse feels that the oral antibiotics are not strong enough. Unsure of root cause of staph sepsis/bacteremia. Admitted to [place] for <24h. Requests referral to ID. Pt concerned that she has immune deficiency or Hep C that she has been septic in the past. Apr,Type 2 diabetes mellitus with hyperglycemia (ICD-10 - E11.65)will continue to hold metformin due to renal labs. Apr,Elevated liver enzymes (ICD-10 - R74.8)Has been to GI in the past [employer] Other 01-05-2023 NotePROGRESS NOTE NOTE DATE: 04/12/2022 [...] prophylaxis: Lovenox. DISPOSITION: Home when medically stable.[id number] Note PROCEDURE: XR WRIST RT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 Carmen Conley MD [address] [place] [facility] [address] [facility]10/12/24 Team Status: Inactive Member Role Status Dates Carmen Conley MD Primary Care Provider Active Start: January 12, 2025 End: January 12, 2025Rodrigo Farias ProviderActiveStart: January 12, 2025 End: January 12, 2025 Goals (unrecognized section and content) Goals may [...] BE BASED ON THE PRIMARY CLINICAL RECORDS. [facility] [employer] [facility]. provides no warranty or guarantee of the accuracy or completeness of information in this document.
[2025-02-05 09:06] LABS: Hematocrit 36.6 % (36.0-48.0); Hemoglobin 12.5 g/dL (12.0-16.0); Immature Granulocytes Abs Auto 0.02 10^3/uL (0.00-0.03); Immature Granulocytes Pct Auto 0.3 % (0.0-0.5); Lymphocytes Absolute Auto 2.9 10^3/uL (1.2-3.8); Mean Corpuscular HGB Conc 34.2 g/dL (29.9-35.2); Mean Corpuscular Hemoglobin 33.9 pg (26.7-34.0); Mean Corpuscular Volume 99.2 fL (81.0-99.0); Platelet Count 148 10^3/uL (150-450); Red Blood Count 3.69 10^6/uL (4.20-5.40); White Blood Count 6.9 10^3/uL (4.0-11.0)
[2025-02-05 09:31] LABS: Alanine Aminotransferase 47 U/L (14-59); Albumin Globulin Ratio 1.0; Albumin Level 3.4 g/dL (3.4-5.0); Alkaline Phosphatase 74 U/L (46-116); Anion Gap 11.9; Aspartate Amino Transferase 13 U/L (15-37); Blood Urea Nitrogen 12.0 mg/dL (7.0-18.0); Calcium 8.9 mg/dL (8.5-10.1); Carbon Dioxide 29.0 mmol/L (21.0-32.0); Chloride 108 mmol/L (98-107); Estimated GFR (African America >60 (>=60 mL/min/1.73m^2); Estimated GFR (Non-African Ame >60 (>=60 mL/min/1.73m^2); Globulin 3.3 g/dL; Glucose 131 mg/dL (74-106); Potassium 3.9 mmol/L (3.5-5.1); Sodium 145 mmol/L (136-145); Total Protein 6.7 g/dL (6.4-8.2)
== END 2025-02-05 08:42 | disposition home or self-care (01) ==
LOC: LAB 08:43
PROVIDERS: PCP Family Medicine; Visit Provider Internal Medicine Rheumatology
DX: Z79.899 Other long term (current) drug therapy (principal); M06.09 Rheumatoid arthritis without rheumatoid factor, multiple sites
CPT/HCPCS: 36415; 80053; 85025; 85652; 86140